=== PATIENT | female | born 1965 | race Caucasian/White ===

== ENCOUNTER 2020-04-21 16:26 | Inpatient (IN) | payer MEDICARE, MEDICAID, SELFPAY ==
[2020-04-21] VITALS (7 sets, daily range): BP systolic 131–171; BP diastolic 71–104; PULSE 76–91; RESP 12–32; TEMP 36.8–37.2; O2SAT 93–99; BMI 38.5; BMI 38.4
--- NOTE | 2020-04-21 | CT_ITS ---
EXAMINATION: CT CHEST WITHOUT CONTRAST CLINICAL INFORMATION: Shortness of breath COMPARISON: Chest radiograph performed earlier today TECHNIQUE: Multidetector volumetric CT imaging of the chest was done. Axial MIP volume rendering provided. Sagittal and coronal reformatted images were obtained. This CT examination was performed using dose optimization techniques as appropriate, variously including the following: *Automated exposure control *Adjustment of mA and/or kV according to patient size (this includes techniques or standardized protocols for targeted exams where dose is matched to indication/reason for exam; i.e. extremities or head) *Use of iterative reconstruction technique DLP: 579 mGy-cm FINDINGS: LUNGS: Mild interstitial prominence present throughout the lungs. There is bibasilar atelectasis/consolidation present. There is one lobular masslike area present in the left lower lobe measuring 2.4 x 2.3 x 1.7 cm MEDIASTINUM: There is mild cardiomegaly. No mediastinal or hilar lymphadenopathy is seen. Coronary artery calcifications are seen. PLEURA: Trace pleural effusions could be present.. No pleural mass or thickening. AXILLA: No lymphadenopathy. UPPER ABDOMEN: Patient status post cholecystectomy OSSEOUS STRUCTURES: Degenerative changes present in the left shoulder with mild degenerative changes present in the spine. CT/CT chest wo con IMPRESSION: 1. Interstitial prominence throughout both lungs consistent with edema. 2. Bibasilar atelectasis/consolidation 3. Lobular masslike area left lower lobe measuring 2.4 cm in size. This could be inflammatory but also could represent a solid abnormal mass lesion. Repeat CT scan after treatment is recommended to document clearing.
--- NOTE | 2020-04-21 17:31 | ECG_ITS ---
Test Reason : HYPERTENSION Blood Pressure : / mmHG Vent. Rate : 081 BPM Atrial Rate : 081 BPM P-R Int : 148 ms QRS Dur : 092 ms QT Int : 392 ms P-R-T Axes : 069 061 037 degrees QTc Int : 455 ms Normal sinus rhythm Normal ECG When compared with ECG of 09-JAN-2020 15:34, Premature atrial complexes are no longer Present Referred By: Mabel Rodriguez Electronically Signed By:STAN NEAL MD
--- NOTE | 2020-04-21 17:51 | XR_ITS ---
EXAMINATION: XR CHEST CLINICAL INFORMATION: Shortness of breath COMPARISON: Chest x-ray 01/09/2020 TECHNIQUE: Frontal portable view of the chest was obtained. 5:44 PM FINDINGS: There is prominence of the central pulmonary vessels with increased interstitial lung markings due to interstitial edema. No focal consolidation. No pleural effusion. Cardiac and mediastinal contours are unchanged. XR/XR chest 1V IMPRESSION: Mild to moderate interstitial edema.
[2020-04-21] MEDS: Albuterol Sulfate 90 MCG 8 GM INHALER 4 PUFF INHALE (18:00)
[2020-04-21] MEDS: methylPREDNISolone Sod Succ/PF 125 MG/2 ML VIAL IVPUSH (18:00)
--- NOTE | 2020-04-21 18:02 | ED.GENADULT ---
HPI - General Adult General Chief complaint: General Medical Stated complaint: SOB Time Seen by Provider: 04/21/20 17:20 Source: patient Mode of arrival: EMS History of Present Illness HPI narrative: 54 y.o. F with PMH of COPD not on home O2, HTN presenting to the ED with SOB. Pt. states she has been feeling SOB x 1 month. She has been using her inhalers which have not been helping. She went to her doctor today and reported her oxygen was low. 64% on RA. She was given a duoneb by EMS which helped minimally. She endorses a cough at times is productive. She has associated CP but is very vague. She currently feels tired. States she has not been sleeping much. She also endorses leg swelling. She denies hx of heart failure. She denies hx of DVT/PE. She denies fevers, vomiting, diarrhea. Onset (ago): month(s) (one month ago ) Related Data Home Medications Medication Instructions Recorded Confirmed amitriptyline 1 tab PO BEDTIME 04/21/20 04/21/20 amlodipine 1 tab PO DAILY 04/21/20 04/21/20 aspirin 1 tab PO DAILY 04/21/20 04/21/20 atenolol 1 tab PO DAILY 04/21/20 04/21/20 clonazepam 1 tab PO BID 04/21/20 04/21/20 diphenhydramine HCl [Banophen] 1 - 2 tab PO BEDTIME PRN 04/21/20 04/21/20 divalproex PO 04/21/20 duloxetine 1 cap PO DAILY 04/21/20 04/21/20 fenofibrate nanocrystallized 1 tab PO DAILY 04/21/20 04/21/20 fenofibrate nanocrystallized 1 tab PO DAILY 04/21/20 04/21/20 omeprazole 20 mg PO 04/21/20 oxycodone-acetaminophen 1 tab PO 5XD PRN 04/21/20 04/21/20 umeclidinium [Incruse Ellipta] INHALATION 04/21/20 Allergies Allergy/AdvReac Type Severity Reaction Status Date / Time Penicillins Allergy Mild RASH Verified 04/21/20 17:00 venlafaxine [From Effexor] Allergy Mild RASH Verified 04/21/20 17:00 cyclobenzaprine Allergy Unknown UNKNOWN Verified 04/21/20 17:00 [Cyclobenzaprine] fentanyl [FENTANYL] Allergy Unknown HALLUCINATI Verified 04/21/20 17:00 ONS topiramate [From Topamax] Allergy Unknown UNKNOWN Verified 04/21/20 17:00 Review of Systems Constitutional: Constitutional: Denies fever(s) and Denies weakness Eyes: Eyes: Reports no additional eye complaints ENT: Denies nasal congestion Cardiovascular: Cardiovascular: Reports chest pain and Reports dyspnea Respiratory: Respiratory: Reports cough and Reports dyspnea Gastrointestinal: Gastrointestinal: Denies diarrhea and Denies vomiting Musculoskeletal: Musculoskeletal: Denies myalgias Neurologic: Denies weakness Hematologic/Lymphatic: Comments: no bleeding tendancy PMFSH Past Medical History Medical History Back pain with history of spinal surgery Bipolar 1 disorder CAD (coronary artery disease) Chronic back pain COPD (chronic obstructive pulmonary disease) Depression Fibromyalgia High cholesterol HTN (hypertension) PTSD (post-traumatic stress disorder) Renal failure Smoker Surgical History H/O: hysterectomy Social History Social History Alcohol intake: former Smoking Status: Current every day smoker Smoked in Last 30 Days: Yes Use of substances other than those prescribed or required for medical reasons: No Advance Directives: No Advance Directives Information Provided: Yes Physical Exam Vital Signs: Vital Signs: Last Vital Signs Temp 98.9 F 04/21/20 16:39 Pulse 81 04/21/20 20:00 Resp 20 04/21/20 20:35 BP 170/83 H 04/21/20 16:39 Pulse Ox 95 04/21/20 20:00 Body Mass Index 38.5 Const: Other: somnolent, arousable to verbal stimuli General: cooperative Orientation/consciousness: patient oriented x3 HENMT: Head: Yes normal to inspection Eyes: Pupils: Equal, round and reactive pupils present Neck: Neck: Yes supple Chest: Chest palpation & inspection: normal inspection of the chest Resp: Other: diminished BS throughout Cardio: Rhythm: regular rhythm GI: Other: obese Palpation (GI): Soft to palpation Skin: Other: warm Rashes: no rashes Neuro: General: patient oriented x3 Cranial nerves: Yes Equal, round and reactive pupils present Extrem: Other: +1 pitting edema bilaterally General: Yes full ROM Psych: Attitude: cooperative Course Course Course Narrative: 54 y.o. F presenting to the ED with concerns for hypoxia, complaining of SOB x1 month, not on home O2, endorses vague CP VS significant for hypoxia per EMS, BP stable, appears ill WIll plan for basic labs. Will check signs of ischemia. Will evaluate for anemia, electrolyte imbalance. ACS on the differential given her CP will check troponin and EKG. CXR will be obtained to assess for PNA, pleural effusion. WIll check d dimer given her hypoxia and peripheral edema. WIll check venous US to r/o DVT. WIll check BNP for heart failure and she has +1 pitting edema. Abdomen is soft, nontender, low concern for intrabaomdinal process. Aortic dissection less likely as she has no ripping/tearing CP into the back. Will swab for COVID and influenza. COPD exacerbation on the differential given her hx will give steroids and albuterol inhaler (per policy as she is a COVID rule out cannot provide Duoneb). case discussed with attending who also evaluated the pt. Reevaluation(s) Reevaluation #1: ABS results show elevated Co2 level, low PH and O2 will initiate Bipap. D dimer is indeterminate, discussed with attending Caitie who states CTA not indicated. troponin negative. CXR read as pulmonary edema however given increased haziness and cough will obtain blood cultures and lactate, will initiate IV doxycyline. NO recent admission to suggest HCAP. Reevaluation #2: RN advised pt. is anxious with Bipap, will give low dose of IV ativan. Reevaluation #3: Pt. will be admitted to the ICU for her COPD exacerbation, hypercarbic respiratory failure, and pneumonia. Spoke with international marketing coordinator at 20:51. PA from ICU at bedside 21:28 requested we give IV dose of lasix 20 mg. will order. Venous US negative for DVT. Medical Decision Making Lab Data Result diagrams: 04/21/20 18:03 04/21/20 18:03 Labs: Lab Results 04/21/20 04/21/20 04/21/20 Range/Units 18:03 18:03 18:03 WBC 11.9 H (4.8-10.8) X10*3/uL RBC 4.29 (4.20-5.50) X10*6/uL Hgb 11.7 L (12.0-16.0) g/dl Hct 40.7 (37-47) % MCV 94.9 (80-98) fL MCH 27.3 (27.0-33.0) pg MCHC 28.7 L (31.0-35.0) g/dl RDW 15.2 (11.0-16.0) % Plt Count 362 (160-400) X10*3/uL MPV 9.1 L (9.4-12.3) fL Immature Gran % (Auto) 2.0 H (0.0-0.4) % Neut % (Auto) 64.7 (45-73) % Lymph % (Auto) 23.4 (20-40) % Glasscock % (Auto) 9.0 (2-11) % Eos % (Auto) 0.4 (0-4) % Baso % (Auto) 0.5 (0-2) % Lymph # (Auto) 2.8 (1.2-4.9) X10*3/uL Glasscock # (Auto) 1.1 (0.1-1.2) X10*3/uL Eos # (Auto) 0.1 (0.0-0.4) X10*3/uL Baso # (Auto) 0.1 (0.0-0.2) X10*3/uL Abs Immat Gran (auto) 0.24 H (0.00-0.03) X10*3/uL Absolute Neuts (auto) 7.7 (2.0-8.3) X10*3/uL Absolute Nucleated RBC 0.040 H (0.0-0.012) X10*3/uL Nucleated RBC % (auto) 0.3 H (0.0-0.2) /100WBC D-Dimer 262 NG/ML ABG pH (7.35-7.45) ABG pCO2 (32-45) mmhg ABG pO2 (83-108) mmhg ABG HCO3 (22-26) mmol/l ABG O2 Saturation % ABG Base Excess VBG pH (7.32-7.43) Oxygen Given Sodium 142 (135-145) mmol/L Potassium 3.9 (3.3-5.1) mmol/l Chloride 102 (96-108) mmol/L Carbon Dioxide 34 H (22-29) mmol/L Anion Gap 10 L (12-20) BUN 18 H (9-16) mg/dL Creatinine 0.93 (0.5-1.4) mg/dL Estim Creat Clear Calc 78.5 Estimated GFR > 60 Random Glucose 100 (60-115) mg/dL Lactic Acid (0.5-2.0) mmol/L Calcium 8.2 L (8.4-10.2) mg/dL Troponin I High Sens (<3.5-17.0) ng/L B-Natriuretic Peptide (<100) pg/mL Coronavirus (PCR) (Negative) Influenza Type A (PCR) (Negative) Influenza Type B (PCR) (Negative) RSV RNA Qual (PCR) (Negative) 04/21/20 04/21/20 04/21/20 Range/Units 18:03 18:03 18:30 WBC (4.8-10.8) X10*3/uL RBC (4.20-5.50) X10*6/uL Hgb (12.0-16.0) g/dl Hct (37-47) % MCV (80-98) fL MCH (27.0-33.0) pg MCHC (31.0-35.0) g/dl RDW (11.0-16.0) % Plt Count (160-400) X10*3/uL MPV (9.4-12.3) fL Immature Gran % (Auto) (0.0-0.4) % Neut % (Auto) (45-73) % Lymph % (Auto) (20-40) % Glasscock % (Auto) (2-11) % Eos % (Auto) (0-4) % Baso % (Auto) (0-2) % Lymph # (Auto) (1.2-4.9) X10*3/uL Glasscock # (Auto) (0.1-1.2) X10*3/uL Eos # (Auto) (0.0-0.4) X10*3/uL Baso # (Auto) (0.0-0.2) X10*3/uL Abs Immat Gran (auto) (0.00-0.03) X10*3/uL Absolute Neuts (auto) (2.0-8.3) X10*3/uL Absolute Nucleated RBC (0.0-0.012) X10*3/uL Nucleated RBC % (auto) (0.0-0.2) /100WBC D-Dimer NG/ML ABG pH (7.35-7.45) ABG pCO2 (32-45) mmhg ABG pO2 (83-108) mmhg ABG HCO3 (22-26) mmol/l ABG O2 Saturation % ABG Base Excess VBG pH (7.32-7.43) Oxygen Given Sodium (135-145) mmol/L Potassium (3.3-5.1) mmol/l Chloride (96-108) mmol/L Carbon Dioxide (22-29) mmol/L Anion Gap (12-20) BUN (9-16) mg/dL Creatinine (0.5-1.4) mg/dL Estim Creat Clear Calc Estimated GFR Random Glucose (60-115) mg/dL Lactic Acid 0.8 (0.5-2.0) mmol/L Calcium (8.4-10.2) mg/dL Troponin I High Sens 14.1 (<3.5-17.0) ng/L B-Natriuretic Peptide 575 H (<100) pg/mL Coronavirus (PCR) NEGATIVE (Negative) Influenza Type A (PCR) NEGATIVE (Negative) Influenza Type B (PCR) NEGATIVE (Negative) RSV RNA Qual (PCR) NEGATIVE (Negative) 04/21/20 04/21/20 Range/Units 18:30 19:35 WBC (4.8-10.8) X10*3/uL RBC (4.20-5.50) X10*6/uL Hgb (12.0-16.0) g/dl Hct (37-47) % MCV (80-98) fL MCH (27.0-33.0) pg MCHC (31.0-35.0) g/dl RDW (11.0-16.0) % Plt Count (160-400) X10*3/uL MPV (9.4-12.3) fL Immature Gran % (Auto) (0.0-0.4) % Neut % (Auto) (45-73) % Lymph % (Auto) (20-40) % Glasscock % (Auto) (2-11) % Eos % (Auto) (0-4) % Baso % (Auto) (0-2) % Lymph # (Auto) (1.2-4.9) X10*3/uL [place]cock # (Auto) (0.1-1.2) X10*3/uL Eos # (Auto) (0.0-0.4) X10*3/uL Baso # (Auto) (0.0-0.2) X10*3/uL Abs Immat Gran (auto) (0.00-0.03) X10*3/uL Absolute Neuts (auto) (2.0-8.3) X10*3/uL Absolute Nucleated RBC (0.0-0.012) X10*3/uL Nucleated RBC % (auto) (0.0-0.2) /100WBC D-Dimer NG/ML ABG pH 7.13 L* (7.35-7.45) ABG pCO2 105 H* (32-45) mmhg ABG pO2 80 L (83-108) mmhg ABG HCO3 34 H (22-26) mmol/l ABG O2 Saturation 93.2 % ABG Base Excess 2.0 VBG pH 7.14 L* (7.32-7.43) Oxygen Given 2 L Sodium (135-145) mmol/L Potassium (3.3-5.1) mmol/l Chloride (96-108) mmol/L Carbon Dioxide (22-29) mmol/L Anion Gap (12-20) BUN (9-16) mg/dL Creatinine (0.5-1.4) mg/dL Estim Creat Clear Calc Estimated GFR Random Glucose (60-115) mg/dL Lactic Acid (0.5-2.0) mmol/L Calcium (8.4-10.2) mg/dL Troponin I High Sens (<3.5-17.0) ng/L B-Natriuretic Peptide (<100) pg/mL Coronavirus (PCR) (Negative) Influenza Type A (PCR) (Negative) Influenza Type B (PCR) (Negative) RSV RNA Qual (PCR) (Negative) ECG Data Attestation: I personally reviewed and interpreted this ECG as follows: Interpretation: Normal sinus rhythm rate 81 no ischemia normal QTC 455 no STEMI Discharge Plan Discharge Clinical Impression: Acute respiratory failure with hypoxia and hypercarbia, COPD exacerbation Pneumonia Qualifiers: Pneumonia type: due to unspecified organism Laterality: bilateral Lung location: unspecified part of lung Qualified Code(s): J18.9 - Pneumonia, unspecified organism Patient Disposition: Admitted As Inpatient
[2020-04-21 18:09] LABS: MANUAL DIFF FLAG NO
[2020-04-21 18:11] LABS: Basophils Absolute Auto 0.1 X10*3/uL (0.0-0.2); Basophils Percent Auto 0.5 % (0-2); Eosinophils Absolute Auto 0.1 X10*3/uL (0.0-0.4); Eosinophils Percent Auto 0.4 % (0-4); Hematocrit 40.7 % (37-47); Hemoglobin 11.7 g/dl (12.0-16.0); Imm Gran Abs Auto 0.24 X10*3/uL (0.00-0.03); Lymphocytes Absolute Auto 2.8 X10*3/uL (1.2-4.9); Lymphocytes Percent Auto 23.4 % (20-40); Mean Corpuscular HGB Conc 28.7 g/dl (31.0-35.0); Mean Corpuscular Hemoglobin 27.3 pg (27.0-33.0); Mean Corpuscular Volume 94.9 fL (80-98); Mean Platelet Volume 9.1 fL (9.4-12.3); Monocytes Absolute Auto 1.1 X10*3/uL (0.1-1.2); NRBC Pct Auto 0.3 /100WBC (0.0-0.2); Neutrophils Absolute Auto 7.7 X10*3/uL (2.0-8.3); Neutrophils Percent Auto 64.7 % (45-73); Platelet Count 362 X10*3/uL (160-400); Red Blood Count 4.29 X10*6/uL (4.20-5.50); Red Cell Distribution Width 15.2 % (11.0-16.0); White Blood Count 11.9 X10*3/uL (4.8-10.8)
--- NOTE | 2020-04-21 18:11 | US_ITS ---
EXAMINATION: US VENOUS ULTRASOUND WITH DOPPLER LOWER EXTREMITY, BILATERAL CLINICAL INFORMATION: Bilateral lower extremity edema and swelling COMPARISON: 01/09/2020 TECHNIQUE: Ultrasound of the deep veins is performed from the hip to the calf with compression sonography and color and pulse Doppler assessment. Spectral analysis with color-flow imaging is performed. FINDINGS: RIGHT: There is normal venous compression and respiratory variation and augmented flow. The visualized common femoral vein, superficial femoral vein, profunda femoral vein, popliteal vein, and the trifurcation region shows no evidence of deep venous thrombosis. There is no significant popliteal fossa cyst. LEFT: There is normal venous compression and respiratory variation and augmented flow. The visualized common femoral vein, superficial femoral vein, profunda femoral vein, popliteal vein, and the trifurcation region shows no evidence of deep venous thrombosis. There is no significant popliteal fossa cyst. If the patient's symptoms persist, followup ultrasound in 5 days 7 days might be of value to exclude proximal propagation from a non-visualized calf vein. US/US venous duplex LE BI IMPRESSION: No DVT demonstrated in the bilateral lower extremities.
[2020-04-21 18:29] LABS: D Dimer 262 NG/ML
[2020-04-21 18:39] LABS: Anion Gap 10 (12-20); Blood Urea Nitrogen 18 mg/dL (9-16); Calcium 8.2 mg/dL (8.4-10.2); Carbon Dioxide 34 mmol/L (22-29); Chloride 102 mmol/L (96-108); Creatinine Clr Calc Pharmacy 78.5; Estimated Glomerular Filt Rate > 60; Glucose Random 100 mg/dL (60-115); Potassium 3.9 mmol/l (3.3-5.1); Sodium 142 mmol/L (135-145)
[2020-04-21 18:45] LABS: B Type Natriuretic Peptide 575 pg/mL (<100); Troponin-I High Sensitivity 14.1 ng/L (<3.5-17.0)
[2020-04-21] MEDS: Doxycycline Hyclate 100 MG in 0.9 % Sodium Chloride 250 ML 166.67 MG IV (18:45)
--- NOTE | 2020-04-21 18:45 | PC.NURSE ---
patient a&ox3, cardiac nurse practitioner nsr 70s, vss, labs drawn, covid swab done, ekg performed, cxr completed, pt medicated per order will continue to monitor.
--- NOTE | 2020-04-21 19:00 | PC.NURSE ---
titrated patient from 4L down to 2L, pt O2 sat at 94%
[2020-04-21 19:04] LABS: Influenza A PCR NEGATIVE (Negative); Influenza B PCR NEGATIVE (Negative); Resp Syncy Virus RNA Qual PCR NEGATIVE (Negative); SARS COV2 PCR INHOUSE NEGATIVE (Negative)
[2020-04-21 19:07] LABS: Lactic Acid 0.8 mmol/L (0.5-2.0)
[2020-04-21 19:08] LABS: pH VBG 7.14 (7.32-7.43)
[2020-04-21 20:15] LABS: Pt Ventilation O2% 2 L
[2020-04-21 20:16] LABS: HCO3 ABG 34 mmol/l (22-26); PO2 ABG 80 mmhg (83-108)
[2020-04-21 20:17] LABS: Oxygen Saturation ABG 93.2 %
[2020-04-21 20:19] LABS: Blood Gas Serial # 5414
[2020-04-21 20:21] LABS: ABG PCO2 105 mmhg (32-45); pH ABG 7.13 (7.35-7.45)
--- NOTE | 2020-04-21 20:39 | PC.NURSE ---
CONTACT MADE TO MCKAYLA, TIFFANIE AND SPOUSE. [phone]. WILL UPDATE ENTIRE FAMILY.
--- NOTE | 2020-04-21 21:08 | PC.NURSE ---
patient tolerating bipap. now reporting anxiety. mlp aware. plan to medicate withy ativan.
[2020-04-21] MEDS: LORazepam 2 MG/ML VIAL 0.5 MG IVPUSH (21:23)
[2020-04-21] MEDS: Furosemide 20 MG/2 ML VIAL IVPUSH (21:44)
--- NOTE | 2020-04-21 21:55 | P.HPCC_ITS ---
History of Present Illness Date of Service: 04/21/20 Chief Complaint: short of breath Patient is a 54-year-old female with a past medical history of COPD, not on home oxygen, HTN, coronary artery disease and Bipolar 1 c/o 1 month of SOB. According to the emergency department, she stated she used inhalers with no relief. They state she went to her PCP today and was told her go to on room air was 64%, she was BIBA and given a duoneb [employer]. labs revealed slightly elevated WBC at 11.9, ABG 7.13/105/80/34/93.2 base excess of 2.0 on 2L O2. serum carbon dioxide 34, BNP 575, COVID, FLU and RSV were all negative. CXR showed interstitial edema, venous US negative. Patient was placed on BiPAP shortly before my arrival to do a bedside exam. At my bedside exam, the patient was extremely fatigued, was arousable and able to answer some questions. she endorses shortness of breath, dry cough, lethargy, mild chest pain, nausea. she denies fever, chills, abdominal pain or diarrhea and is unsure if she has had a COVID + contact. I asked ED to give one dose of lasix. I ordered a chest CT and ordered levaquin. Patient will be brought to the ICU and continue BiPAP. Review of Systems Review of Systems: Constitutional: No Fever, No Chills ENT/Mouth: No sore throat, No Rhinorrhea, No Swallowing Difficulty Eyes: No Eye Pain, No Swelling, No Redness Cardiovascular: + Chest Pain, positive SOB, No Orthopnea, positive Edema Respiratory: positive dyspnea, + Cough, No Sputum, No Wheezing Gastrointestinal:+ Nausea, No Vomiting, No Diarrhea, No abdominal Pain, No Hematochezia, No Melena Genitourinary: No Dysuria, No Urinary Frequency, No Hematuria Musculoskeletal: No joint pain, No Myalgias Skin: No Skin Lesions, No rash Neuro: No Weakness, No Numbness, No Dizziness, No Headache Psych: No Anxiety/Panic, No Depression Yes all other systems are reviewed and are negative Neurologic: Reports confusion Psychiatric: Psychiatric: Reports confusion PMF Past Medical History Medical History Acute on chronic diastolic CHF (congestive heart failure) Back pain with history of spinal surgery Bipolar 1 disorder Bipolar disorder CAD (coronary artery disease) Chronic back pain COPD (chronic obstructive pulmonary disease) Depression Fibromyalgia High cholesterol HTN (hypertension) PTSD (post-traumatic stress disorder) Renal failure Smoker Surgical History Surgical History H/O: hysterectomy Social History Social History Alcohol intake: former Smoking Status: Current every day smoker Smoked in Last 30 Days: Yes Use of substances other than those prescribed or required for medical reasons: No Currently Displaying Signs/Symptoms of Drug Intoxication Withdrawal: No Advance Directives: No Advance Directives Information Provided: Yes Do you have thoughts of harming others: None Do you have a plan to hurt others: No Plan Meds Allergies Allergy/AdvReac Type Severity Reaction Status Date / Time Penicillins Allergy Mild RASH Verified 04/21/20 17:00 venlafaxine [From Effexor] Allergy Mild RASH Verified 04/21/20 17:00 cyclobenzaprine Allergy Unknown UNKNOWN Verified 04/21/20 17:00 [Cyclobenzaprine] fentanyl [FENTANYL] Allergy Unknown HALLUCINATI Verified 04/21/20 17:00 ONS topiramate [From Topamax] Allergy Unknown UNKNOWN Verified 04/21/20 17:00 Home Medications Medication Instructions Recorded Confirmed Type amitriptyline 1 tab PO BEDTIME 04/21/20 04/21/20 History amlodipine 1 tab PO DAILY 04/21/20 04/21/20 History aspirin 1 tab PO DAILY 04/21/20 04/21/20 History atenolol 1 tab PO DAILY 04/21/20 04/21/20 History clonazepam 1 tab PO BID 04/21/20 04/21/20 History diphenhydramine HCl [Banophen] 1 - 2 tab PO BEDTIME PRN 04/21/20 04/21/20 History divalproex 500 mg PO DAILY 04/21/20 04/22/20 History duloxetine 1 cap PO DAILY 04/21/20 04/21/20 History fenofibrate nanocrystallized 1 tab PO DAILY 04/21/20 04/21/20 History omeprazole 20 mg PO DAILY 04/21/20 04/22/20 History oxycodone-acetaminophen 1 tab PO 5XD PRN 04/21/20 04/21/20 History umeclidinium [Incruse Ellipta] 1 inh INHALATION DAILY 04/21/20 04/22/20 History divalproex 1,000 mg PO BEDTIME 04/22/20 04/22/20 History Physical Exam Vital Signs: Vital Signs: Last Vital Signs Temp 98.9 F 04/21/20 16:39 Pulse 81 04/21/20 20:00 Resp 20 04/21/20 20:35 BP 170/83 H 04/21/20 16:39 Pulse Ox 95 04/21/20 20:00 Body Mass Index 38.5 Const: General: confusion and ill appearing Nutritional Appearance: obese morbidly obese Orientation/consciousness: confusion HENMT: Head: Yes normal to inspection Eyes: General: appearance normal, both eyes and all related structures Pupils: Equal, round and reactive pupils present EOM: EOMs intact bilaterally Neck: Neck: Yes normal visual inspection, Yes full ROM and Yes supple Chest: Chest palpation & inspection: normal inspection of the chest Resp: Other: on BiPap Effort & Inspection: no audible wheezes, no grunting, not labored, no nasal flaring, not tachypneic, no tripod positioning and no use of accessory muscles Auscultation: diminished lung sounds Cardio: Rate: regular rate Rhythm: regular rhythm GI: Inspection: Yes obesity Palpation (GI): Soft to palpation and nontender Skin: General skin exam: no rashes or lesions noted Neuro: General: confusion Cranial nerves: Yes Equal, round and reactive pupils present Extrem: General: Yes edema (1+ pitting bilateral LE) Results Labs CBC and Chem 7: 04/22/20 05:39 04/22/20 05:39 Labs: Laboratory Results - last 24 hr 04/21/20 04/21/20 04/21/20 18:03 18:03 18:03 MCV 94.9 MCH 27.3 MCHC 28.7 L RDW 15.2 Plt Count 362 MPV 9.1 L Immature Gran % (Auto) 2.0 H Neut % (Auto) 64.7 Lymph % (Auto) 23.4 [place] % (Auto) 9.0 Eos % (Auto) 0.4 Baso % (Auto) 0.5 Lymph # (Auto) 2.8 [place] # (Auto) 1.1 Eos # (Auto) 0.1 Baso # (Auto) 0.1 Abs Immat Gran (auto) 0.24 H Absolute Neuts (auto) 7.7 Absolute Nucleated RBC 0.040 H Nucleated RBC % (auto) 0.3 H D-Dimer 262 ABG pH ABG pCO2 ABG pO2 ABG HCO3 ABG O2 Saturation ABG Base Excess VBG pH Oxygen Given Anion Gap 10 L Estim Creat Clear Calc 78.5 Estimated GFR > 60 Random Glucose 100 Lactic Acid Calcium 8.2 L Troponin I High Sens B-Natriuretic Peptide Coronavirus (PCR) Influenza Type A (PCR) Influenza Type B (PCR) RSV RNA Qual (PCR) 04/21/20 04/21/20 04/21/20 18:03 18:03 18:30 MCV MCH MCHC RDW Plt Count MPV Immature Gran % (Auto) Neut % (Auto) Lymph % (Auto) [place] % (Auto) Eos % (Auto) Baso % (Auto) Lymph # (Auto) [place] # (Auto) Eos # (Auto) Baso # (Auto) Abs Immat Gran (auto) Absolute Neuts (auto) Absolute Nucleated RBC Nucleated RBC % (auto) D-Dimer ABG pH ABG pCO2 ABG pO2 ABG HCO3 ABG O2 Saturation ABG Base Excess VBG pH Oxygen Given Anion Gap Estim Creat Clear Calc Estimated GFR Random Glucose Lactic Acid 0.8 Calcium Troponin I High Sens 14.1 B-Natriuretic Peptide 575 H Coronavirus (PCR) NEGATIVE Influenza Type A (PCR) NEGATIVE Influenza Type B (PCR) NEGATIVE RSV RNA Qual (PCR) NEGATIVE 04/21/20 04/21/20 18:30 19:35 MCV MCH MCHC RDW Plt Count MPV Immature Gran % (Auto) Neut % (Auto) Lymph % (Auto) [place] % (Auto) Eos % (Auto) Baso % (Auto) Lymph # (Auto) [place] # (Auto) Eos # (Auto) Baso # (Auto) Abs Immat Gran (auto) Absolute Neuts (auto) Absolute Nucleated RBC Nucleated RBC % (auto) D-Dimer ABG pH 7.13 L* ABG pCO2 105 H* ABG pO2 80 L ABG HCO3 34 H ABG O2 Saturation 93.2 ABG Base Excess 2.0 VBG pH 7.14 L* Oxygen Given 2 L Anion Gap Estim Creat Clear Calc Estimated GFR Random Glucose Lactic Acid Calcium Troponin I High Sens B-Natriuretic Peptide Coronavirus (PCR) Influenza Type A (PCR) Influenza Type B (PCR) RSV RNA Qual (PCR) Imaging Radiologist's Impressions: Impressions Chest X-Ray 04/21/20 17:51 IMPRESSION: Mild to moderate interstitial edema. Venous Duplex 04/21/20 18:11 IMPRESSION: No DVT demonstrated in the bilateral lower extremities. [address] [address] [address] Scan Report Signed Patient: Claire SethMR#: [id number] : 1965Acct:[id number] Age/Sex: 54 / FADM Date: 04/21/20 Loc: .DGI451-[address]: Jeison Montez MD Ordering Physician: DEB HILL Date of Service: 04/21/20 Procedure(s): CT chest wo con Accession Number(s): [id number] cc: DEB HILL~ EXAMINATION: CT CHEST WITHOUT CONTRAST CLINICAL INFORMATION: Shortness of breath COMPARISON: Chest radiograph performed earlier today TECHNIQUE: Multidetector volumetric CT imaging of the chest was done. Axial MIP volume rendering provided. Sagittal and coronal reformatted images were obtained. This CT examination was performed using dose optimization techniques as appropriate, variously including the following: *Automated exposure control *Adjustment of mA and/or kV according to patient size (this includes techniques or standardized protocols for targeted exams where dose is matched to indication/reason for exam; i.e. extremities or head) *Use of iterative reconstruction technique DLP: 579 mGy-cm FINDINGS: LUNGS: Mild interstitial prominence present throughout the lungs. There is bibasilar atelectasis/consolidation present. There is one lobular masslike area present in the left lower lobe measuring 2.4 x 2.3 x 1.7 cm MEDIASTINUM: There is mild cardiomegaly. No mediastinal or hilar lymphadenopathy is seen. Coronary artery calcifications are seen. PLEURA: Trace pleural effusions could be present.. No pleural mass or thickening. AXILLA: No lymphadenopathy. UPPER ABDOMEN: Patient status post cholecystectomy OSSEOUS STRUCTURES: Degenerative changes present in the left shoulder with mild degenerative changes present in the spine. CT/CT chest wo con IMPRESSION: 1. Interstitial prominence throughout both lungs consistent with edema. 2. Bibasilar atelectasis/consolidation 3. Lobular masslike area left lower lobe measuring 2.4 cm in size. This could be inflammatory but also could represent a solid abnormal mass lesion. Repeat CT scan after treatment is recommended to document clearing. Assessment and Plan (1) Acute respiratory failure with hypoxia and hypercarbia: Status: Acute continue bipap, monitor vbg and mental status (2) Pneumonia: Qualifiers: Laterality: bilateral Lung location: unspecified part of lung Pneumonia type: due to unspecified organism Qualified Code(s): J18.9 - Pneumonia, unspecified organism Status: Acute Pt rec'd one dose of Doxy in ED. Will give 750 mg levaquin IV Q24H (3) COPD exacerbation: Status: Acute Continue steroids and nebulizer tx's (4) Acute on chronic diastolic CHF (congestive heart failure): Status: Acute 20mg lasix x2 overnight with good UO (5) Bipolar disorder: Status: Acute continue home meds
[2020-04-21] MEDS: 0.9 % Sodium Chloride Flush 3 ML SYRINGE IVFLUSH (23:59)
[2020-04-22] VITALS (37 sets, daily range): BP systolic 113–174; BP diastolic 54–99; PULSE 74–100; RESP 12–26; TEMP 36–37.7; O2SAT 90–96; BMI 38.6
[2020-04-22] MEDS: levoFLOXacin/D5W 750 MG/150 ML PIGGYBACK 100 MG IV ×2 (00:06→20:31)
[2020-04-22] MEDS: methylPREDNISolone Sod Succ/PF 125 MG/2 ML VIAL 80 MG IVPUSH ×4 (00:06→22:31)
[2020-04-22] MEDS: Heparin Sodium,Porcine 5,000 UNIT/ML VIAL 5000 UNIT SUBCUT ×3 (00:07→20:30)
[2020-04-22] MEDS: Albuterol/Iprat 2.5/0.5MG 3 ML AMPUL.NEB INHALE ×6 (00:18→19:42)
[2020-04-22 00:51] LABS: Base Excess VBG 5.7 mmol/L; HCO3 VBG 33 mmol/L; Oxygen Saturation VBG 84.4 %; PCO2 VBG 63 mmhg; PO2 VBG 47 mmhg; pH VBG 7.34 (7.32-7.43)
[2020-04-22] MEDS: Furosemide 20 MG/2 ML VIAL IVPUSH (01:40)
[2020-04-22 05:57] LABS: Basophils Percent Auto 0.1 % (0-2); Hemoglobin 11.4 g/dl (12.0-16.0); Imm Gran Abs Auto 0.19 X10*3/uL (0.00-0.03); Imm Gran Pct Auto 2.2 % (0.0-0.4); Lymphocytes Absolute Auto 0.6 X10*3/uL (1.2-4.9); Lymphocytes Percent Auto 6.8 % (20-40); MANUAL DIFF FLAG SCAN; Mean Corpuscular Hemoglobin 27.2 pg (27.0-33.0); Mean Corpuscular Volume 90.7 fL (80-98); Mean Platelet Volume 9.1 fL (9.4-12.3); Monocytes Absolute Auto 0.2 X10*3/uL (0.1-1.2); Monocytes Percent Auto 2.3 % (2-11); NRBC Pct Auto 0.3 /100WBC (0.0-0.2); Neutrophils Absolute Auto 7.8 X10*3/uL (2.0-8.3); Neutrophils Percent Auto 88.6 % (45-73); Platelet Count 356 X10*3/uL (160-400); Red Blood Count 4.19 X10*6/uL (4.20-5.50); Red Cell Distribution Width 14.4 % (11.0-16.0); SCAN SMEAR FLAG 1; White Blood Count 8.8 X10*3/uL (4.8-10.8)
[2020-04-22 06:02] LABS: SLIDE REVIEW VERIFIED
[2020-04-22 06:28] LABS: Base Excess VBG 8.3 mmol/L; HCO3 VBG 35 mmol/L; Oxygen Saturation VBG 84.1 %; PCO2 VBG 61 mmhg; PO2 VBG 48 mmhg; pH VBG 7.38 (7.32-7.43)
--- NOTE | 2020-04-22 06:33 | PC.NURSE ---
CARE ASSUMED 23;15...BIPAP 15/5 & FIO2 40%..RR 16-20...Ve 11-13 L/M...SAO2 93-96%...INITIALLY AROUSABLE BUT DROWSY/VAGUE..MORE ALERT..COHERENT OVERNIGHT.GRANDA DRAINING YELLOW URINE...NSR...SBP 160'S-170'S...ICU DEMENTIA PROGRAM DIRECTOR PRESENT...REPEAT LASIX 20MG IV GIVEN WITH BRISK DIURESIS...AM LABS DRAWN...O2 TRANSITIONED TO 5 L/M VIA CANNULA...SAO2 91-94%...NO DISTRESS...BP REMAINS 160'S-170'S...DEMENTIA PROGRAM DIRECTOR AWARE...HOME BP/PSYCH MEDS REORDERED BY DEMENTIA PROGRAM DIRECTOR...RESTFUL..DENIES/OFFERS NO COMPLAINTS
[2020-04-22 06:34] LABS: Anion Gap 13 (12-20); Blood Urea Nitrogen 19 mg/dL (9-16); Calcium 8.2 mg/dL (8.4-10.2); Carbon Dioxide 35 mmol/L (22-29); Chloride 95 mmol/L (96-108); Creatinine Clr Calc Pharmacy 72.8; Estimated Glomerular Filt Rate 57; Glucose Random 128 mg/dL (60-115); Magnesium 1.3 mg/dL (1.6-2.6); Phosphorus 4.5 mg/dL (2.7-4.5); Potassium 3.5 mmol/l (3.3-5.1); Sodium 139 mmol/L (135-145)
[2020-04-22 06:35] LABS: B Type Natriuretic Peptide 266 pg/mL (<100)
[2020-04-22] MEDS: carvediloL 12.5 MG TABLET PO ×2 (08:20→20:30)
[2020-04-22] MEDS: amLODIPine Besylate 10 MG TABLET PO (08:21)
[2020-04-22] MEDS: Divalproex Sodium ER 500 MG TAB.ER.24H PO ×3 (08:21→20:29)
[2020-04-22] MEDS: Magnesium Sulfate/H2O 2 GM/50 ML PIGGYBACK IV (08:22)
[2020-04-22] MEDS: Pregabalin 25 MG CAPSULE PO ×2 (09:12→20:30)
[2020-04-22] MEDS: oxyCODONE HCl Immed Release 5 MG TABLET 10 MG PO ×3 (09:13→22:36)
[2020-04-22] MEDS: 0.9 % Sodium Chloride Flush 3 ML SYRINGE IVFLUSH ×3 (09:14→22:33)
[2020-04-22 10:36] LABS: Pt Ventilation O2% 45%
[2020-04-22 10:40] LABS: PO2 ABG 70 mmhg (83-108)
[2020-04-22 10:41] LABS: Base Excess ABG 9.9; Blood Gas Serial # 5414; HCO3 ABG 40 mmol/l (22-26); Oxygen Saturation ABG 92.9 %
[2020-04-22 10:42] LABS: ABG PCO2 83 mmhg (32-45)
--- NOTE | 2020-04-22 11:06 | P.PNCC_ITS ---
Subjective Subjective Date of Service: 04/22/20 Interval History: 54-year-old female longstanding smoking related COPD underlying hypertension as well as bipolar disorder admitted with increasing shortness of breath and oxygen saturation in the mid 60s and she is not on home oxygen therapy presented with acute hypercarbic and hypoxemic respiratory failure with pCO2 over 100 and pH of 7.13 and she did very well overnight on bronchodilator therapy and BiPAP support with pressures of 15/5 this morning more awake and alert still an element of confusion but pCO2 sitting at about the 60 with a compensated pH of 7.38 she also received IV Lasix and she diuresed sit significantly and BNP did drop down from over 500 to over 300 at this point and we tried her on on high-flow nasal cannula at 50 liters/minute and her pCO2 is up to 80 with a falling pH and a little bit more somnolent so we have to replace the BiPAP on a p.r.n. basis Physical Exam Vital Signs: Vital Signs: Last Vital Signs Temp 99.1 F 04/22/20 11:00 Pulse 78 04/22/20 11:00 Resp 13 04/22/20 11:00 BP 127/60 04/22/20 11:00 Pulse Ox 92 04/22/20 11:00 Body Mass Index 38.6 Const: Other: she was awake and at least oriented times to but with some confuse skin color normal no livedo no acrocyanosis no wounds neurologic nonfocal chest with diminished bilateral breath sounds and no adventitious sounds cardiac exam with normal S1 normal S2 no gallops no murmurs no neck vein distension and good bilateral carotid upstrokes abdomen benign no bruits no tenderness no organomegaly EKG normal sinus rhythm and within normal limits Objective Data Labs CBC & Chem 7: 04/22/20 05:39 04/22/20 05:39 Labs: Laboratory Results - last 24 hr 04/21/20 04/21/20 04/21/20 18:03 18:03 18:03 WBC 11.9 H RBC 4.29 Hgb 11.7 L Hct 40.7 MCV 94.9 MCH 27.3 MCHC 28.7 L RDW 15.2 Plt Count 362 MPV 9.1 L Immature Gran % (Auto) 2.0 H Neut % (Auto) 64.7 Lymph % (Auto) 23.4 [place] % (Auto) 9.0 Eos % (Auto) 0.4 Baso % (Auto) 0.5 Lymph # (Auto) 2.8 [place] # (Auto) 1.1 Eos # (Auto) 0.1 Baso # (Auto) 0.1 Abs Immat Gran (auto) 0.24 H Absolute Neuts (auto) 7.7 Absolute Nucleated RBC 0.040 H Nucleated RBC % (auto) 0.3 H Smear Tech's Comments D-Dimer 262 ABG pH ABG pCO2 ABG pO2 ABG HCO3 ABG O2 Saturation ABG Base Excess VBG pH VBG pCO2 VBG pO2 VBG HCO3 VBG O2 Saturation VBG Base Excess Oxygen Given Sodium 142 Potassium 3.9 Chloride 102 Carbon Dioxide 34 H Anion Gap 10 L BUN 18 H Creatinine 0.93 Estim Creat Clear Calc 78.5 Estimated GFR > 60 Random Glucose 100 Lactic Acid Calcium 8.2 L Phosphorus Magnesium Troponin I High Sens B-Natriuretic Peptide Coronavirus (PCR) Influenza Type A (PCR) Influenza Type B (PCR) RSV RNA Qual (PCR) 04/21/20 04/21/20 04/21/20 18:03 18:03 18:30 WBC RBC Hgb Hct MCV MCH MCHC RDW Plt Count MPV Immature Gran % (Auto) Neut % (Auto) Lymph % (Auto) [place] % (Auto) Eos % (Auto) Baso % (Auto) Lymph # (Auto) [place] # (Auto) Eos # (Auto) Baso # (Auto) Abs Immat Gran (auto) Absolute Neuts (auto) Absolute Nucleated RBC Nucleated RBC % (auto) Smear Tech's Comments D-Dimer ABG pH ABG pCO2 ABG pO2 ABG HCO3 ABG O2 Saturation ABG Base Excess VBG pH VBG pCO2 VBG pO2 VBG HCO3 VBG O2 Saturation VBG Base Excess Oxygen Given Sodium Potassium Chloride Carbon Dioxide Anion Gap BUN Creatinine Estim Creat Clear Calc Estimated GFR Random Glucose Lactic Acid 0.8 Calcium Phosphorus Magnesium Troponin I High Sens 14.1 B-Natriuretic Peptide 575 H Coronavirus (PCR) NEGATIVE Influenza Type A (PCR) NEGATIVE Influenza Type B (PCR) NEGATIVE RSV RNA Qual (PCR) NEGATIVE 04/21/20 04/21/20 04/22/20 18:30 19:35 00:21 WBC RBC Hgb Hct MCV MCH MCHC RDW Plt Count MPV Immature Gran % (Auto) Neut % (Auto) Lymph % (Auto) [place] % (Auto) Eos % (Auto) Baso % (Auto) Lymph # (Auto) [place] # (Auto) Eos # (Auto) Baso # (Auto) Abs Immat Gran (auto) Absolute Neuts (auto) Absolute Nucleated RBC Nucleated RBC % (auto) Smear Tech's Comments D-Dimer ABG pH 7.13 L* ABG pCO2 105 H* ABG pO2 80 L ABG HCO3 34 H ABG O2 Saturation 93.2 ABG Base Excess 2.0 VBG pH 7.14 L* 7.34 VBG pCO2 63 VBG pO2 47 VBG HCO3 33 VBG O2 Saturation 84.4 VBG Base Excess 5.7 Oxygen Given 2 L Sodium Potassium Chloride Carbon Dioxide Anion Gap BUN Creatinine Estim Creat Clear Calc Estimated GFR Random Glucose Lactic Acid Calcium Phosphorus Magnesium Troponin I High Sens B-Natriuretic Peptide Coronavirus (PCR) Influenza Type A (PCR) Influenza Type B (PCR) RSV RNA Qual (PCR) 04/22/20 04/22/20 04/22/20 05:39 05:39 05:39 WBC 8.8 RBC 4.19 L Hgb 11.4 L Hct 38.0 MCV 90.7 MCH 27.2 MCHC 30.0 L RDW 14.4 Plt Count 356 MPV 9.1 L Immature Gran % (Auto) 2.2 H Neut % (Auto) 88.6 H Lymph % (Auto) 6.8 L [place] % (Auto) 2.3 Eos % (Auto) 0.0 Baso % (Auto) 0.1 Lymph # (Auto) 0.6 L [place] # (Auto) 0.2 Eos # (Auto) 0.0 Baso # (Auto) 0.0 Abs Immat Gran (auto) 0.19 H Absolute Neuts (auto) 7.8 Absolute Nucleated RBC 0.030 H Nucleated RBC % (auto) 0.3 H Smear Tech's Comments VERIFIED D-Dimer ABG pH ABG pCO2 ABG pO2 ABG HCO3 ABG O2 Saturation ABG Base Excess VBG pH VBG pCO2 VBG pO2 VBG HCO3 VBG O2 Saturation VBG Base Excess Oxygen Given Sodium 139 Potassium 3.5 Chloride 95 L Carbon Dioxide 35 H Anion Gap 13 BUN 19 H Creatinine 1.00 Estim Creat Clear Calc 72.8 Estimated GFR 57 Random Glucose 128 H Lactic Acid Calcium 8.2 L Phosphorus 4.5 Magnesium 1.3 L* Troponin I High Sens B-Natriuretic Peptide 266 H Coronavirus (PCR) Influenza Type A (PCR) Influenza Type B (PCR) RSV RNA Qual (PCR) 04/22/20 04/22/20 05:39 10:32 WBC RBC Hgb Hct MCV MCH MCHC RDW Plt Count MPV Immature Gran % (Auto) Neut % (Auto) Lymph % (Auto) [place] % (Auto) Eos % (Auto) Baso % (Auto) Lymph # (Auto) [place] # (Auto) Eos # (Auto) Baso # (Auto) Abs Immat Gran (auto) Absolute Neuts (auto) Absolute Nucleated RBC Nucleated RBC % (auto) Smear Tech's Comments D-Dimer ABG pH 7.30 L ABG pCO2 83 H* ABG pO2 70 L ABG HCO3 40 H ABG O2 Saturation 92.9 ABG Base Excess 9.9 VBG pH 7.38 VBG pCO2 61 VBG pO2 48 VBG HCO3 35 VBG O2 Saturation 84.1 VBG Base Excess 8.3 Oxygen Given 45% Sodium Potassium Chloride Carbon Dioxide Anion Gap BUN Creatinine Estim Creat Clear Calc Estimated GFR Random Glucose Lactic Acid Calcium Phosphorus Magnesium Troponin I High Sens B-Natriuretic Peptide Coronavirus (PCR) Influenza Type A (PCR) Influenza Type B (PCR) RSV RNA Qual (PCR) Progress Note: A&P Assessment and plan (1) Acute respiratory failure with hypoxia and hypercarbia: Status: Acute (2) Pneumonia: Status: Acute (3) COPD exacerbation: Status: Acute (4) Acute on chronic diastolic CHF (congestive heart failure): Status: Acute (5) Bipolar disorder: Status: Acute Assessment and Plan: currently for elevated pCO2 of 80 we are replacing the BiPAP at the same previous settings and will reassess the patient shortly probably withhold her lunch at this point and will do bedside echo to assess her diastolic function and if we can image the IVC we can assess her volume status Time Spent With Patient Time: Total time spent is greater than 50% in coordination of care (as documented) at patient's floor/unit and/or counseling patient: Total time spent with greater than 50% in coordination of care (as documented) at patient's floor/unit and/or counseling patient:: 45
[2020-04-22 12:00] LABS: Glucose Urine UA NEG (NEG); Leukocyte Esterase Urine NEG (NEG); Nitrite Urine NEG (NEG); PH 6.5 (5.0-8.0); Specific Gravity - Urine >= 1.030 (1.005-1.025); Urine Blood 1+ (NEG); Urine Ketones NEG (NEG); Urine Protein 2+ MG/DL (NEG-TRACE)
[2020-04-22 12:01] LABS: Appearance Urine HAZY; Color Urine YELLOW
[2020-04-22 12:20] LABS: Mucus Urine 1+ /LPF; WBC Urine 0-2 /HPF (0-4)
[2020-04-22] MEDS: clonazePAM 0.5 MG TABLET PO ×2 (12:53→20:30)
[2020-04-22] MEDS: DULoxetine HCl 60 MG CAPSULE.DR PO (12:54)
--- NOTE | 2020-04-22 15:23 | PC.NURSE ---
report recieved from Jamil, pt on 5l O2, pt ate breakfast, plan for high flow, ABG drawn at 1000 and pt placed back on bipap at 15/5 and 40%, tolerating well, resting in bed, will cont to monitor
[2020-04-22] MEDS: Amitriptyline HCl 25 MG TABLET PO (20:30)
[2020-04-23] VITALS (36 sets, daily range): BP systolic 96–154; BP diastolic 56–90; PULSE 64–95; RESP 12–24; TEMP 36.5–37.6; O2SAT 89–97; BMI 37.4
[2020-04-23] MEDS: Albuterol/Iprat 2.5/0.5MG 3 ML AMPUL.NEB INHALE ×4 (00:05→12:22)
[2020-04-23 05:46] LABS: MANUAL DIFF FLAG NO
[2020-04-23 05:50] LABS: Basophils Percent Auto 0.1 % (0-2); Hematocrit 36.8 % (37-47); Hemoglobin 10.9 g/dl (12.0-16.0); Imm Gran Abs Auto 0.13 X10*3/uL (0.00-0.03); Imm Gran Pct Auto 0.9 % (0.0-0.4); Lymphocytes Absolute Auto 0.9 X10*3/uL (1.2-4.9); Lymphocytes Percent Auto 6.4 % (20-40); Mean Corpuscular HGB Conc 29.6 g/dl (31.0-35.0); Mean Corpuscular Hemoglobin 26.8 pg (27.0-33.0); Mean Corpuscular Volume 90.6 fL (80-98); Mean Platelet Volume 9.3 fL (9.4-12.3); Monocytes Absolute Auto 0.4 X10*3/uL (0.1-1.2); Monocytes Percent Auto 2.8 % (2-11); NRBC Pct Auto 0.1 /100WBC (0.0-0.2); Neutrophils Absolute Auto 12.3 X10*3/uL (2.0-8.3); Neutrophils Percent Auto 89.8 % (45-73); Platelet Count 359 X10*3/uL (160-400); Red Blood Count 4.06 X10*6/uL (4.20-5.50); Red Cell Distribution Width 14.3 % (11.0-16.0); White Blood Count 13.7 X10*3/uL (4.8-10.8)
[2020-04-23 06:00] LABS: PCO2 VBG 63 mmhg; pH VBG 7.38 (7.32-7.43)
[2020-04-23 06:01] LABS: Base Excess VBG 8.8 mmol/L; HCO3 VBG 36 mmol/L; Oxygen Saturation VBG 83.1 %; PO2 VBG 48 mmhg
[2020-04-23 06:22] LABS: Anion Gap 13 (12-20); Blood Urea Nitrogen 29 mg/dL (9-16); Carbon Dioxide 35 mmol/L (22-29); Chloride 95 mmol/L (96-108); Estimated Glomerular Filt Rate 57; Glucose Random 128 mg/dL (60-115); Magnesium 2.2 mg/dL (1.6-2.6); Phosphorus 3.6 mg/dL (2.7-4.5); Potassium 4.1 mmol/l (3.3-5.1); Sodium 139 mmol/L (135-145)
[2020-04-23 06:24] LABS: B Type Natriuretic Peptide 115 pg/mL (<100)
[2020-04-23] MEDS: methylPREDNISolone Sod Succ/PF 125 MG/2 ML VIAL 80 MG IVPUSH ×3 (07:14→21:46)
[2020-04-23] MEDS: clonazePAM 0.5 MG TABLET PO ×2 (09:52→20:02)
[2020-04-23] MEDS: Heparin Sodium,Porcine 5,000 UNIT/ML VIAL 5000 UNIT SUBCUT ×2 (09:52→20:01)
[2020-04-23] MEDS: carvediloL 12.5 MG TABLET PO ×2 (09:52→20:02)
[2020-04-23] MEDS: Pregabalin 25 MG CAPSULE PO ×2 (09:53→20:02)
[2020-04-23] MEDS: amLODIPine Besylate 10 MG TABLET PO (09:53)
[2020-04-23] MEDS: Divalproex Sodium ER 500 MG TAB.ER.24H PO ×3 (09:53→20:02)
[2020-04-23] MEDS: DULoxetine HCl 60 MG CAPSULE.DR PO (09:53)
[2020-04-23] MEDS: oxyCODONE HCl Immed Release 5 MG TABLET 10 MG PO ×3 (09:54→20:02)
[2020-04-23] MEDS: 0.9 % Sodium Chloride Flush 3 ML SYRINGE IVFLUSH ×2 (09:55→16:49)
[2020-04-23 10:14] LABS: PO2 ABG 76 mmhg (83-108); pH ABG 7.32 (7.35-7.45)
[2020-04-23 10:15] LABS: ABG PCO2 73 mmhg (32-45); Base Excess ABG 7.9; Blood Gas Serial # 5396; HCO3 ABG 37 mmol/l (22-26); Oxygen Saturation ABG 93.9 %
[2020-04-23 14:01] LABS: Pt Ventilation O2% 50%
[2020-04-23 14:06] LABS: Base Excess ABG 7.3; HCO3 ABG 36 mmol/l (22-26); Oxygen Saturation ABG 94.9 %; PO2 ABG 85 mmhg (83-108)
[2020-04-23 14:10] LABS: ABG PCO2 75 mmhg (32-45)
--- NOTE | 2020-04-23 14:23 | PM.CCPN ---
Subjective Subjective Date of Service: 04/23/20 Interval History: clearly improving with less respiratory effort and today she is maintaining pCO2 maximally at 75 after over 8 hours of high-flow nasal cannula whereas yesterday she almost immediately titi from 63-83 on the same settings Physical Exam Vital Signs: Vital Signs: Last Vital Signs Temp 99.5 F 04/23/20 14:00 Pulse 83 04/23/20 14:00 Resp 24 H 04/23/20 14:00 BP 121/61 04/23/20 14:00 Pulse Ox 94 04/23/20 14:00 Body Mass Index 37.4 Const: Other: awake alert and oriented neurologically symmetric skin intact with no rash no livedo and no acrocyanosis diminished bilateral breath sounds with minimal wheeze cardiac exam with normal S1 and normal S2 and no gallops or murmurs good bilateral carotid upstrokes and no neck vein distension abdomen benign no bruits no tenderness no organomegaly Objective Data Labs CBC & Chem 7: 04/23/20 05:28 04/23/20 05:28 Labs: Laboratory Results - last 24 hr 04/23/20 04/23/20 04/23/20 05:28 05:28 05:28 WBC 13.7 H RBC 4.06 L Hgb 10.9 L Hct 36.8 L MCV 90.6 MCH 26.8 L MCHC 29.6 L RDW 14.3 Plt Count 359 MPV 9.3 L Immature Gran % (Auto) 0.9 H Neut % (Auto) 89.8 H Lymph % (Auto) 6.4 L [place] % (Auto) 2.8 Eos % (Auto) 0.0 Baso % (Auto) 0.1 Lymph # (Auto) 0.9 L [place] # (Auto) 0.4 Eos # (Auto) 0.0 Baso # (Auto) 0.0 Abs Immat Gran (auto) 0.13 H Absolute Neuts (auto) 12.3 H Absolute Nucleated RBC 0.020 H Nucleated RBC % (auto) 0.1 ABG pH ABG pCO2 ABG pO2 ABG HCO3 ABG O2 Saturation ABG Base Excess VBG pH VBG pCO2 VBG pO2 VBG HCO3 VBG O2 Saturation VBG Base Excess Oxygen Given Sodium 139 Potassium 4.1 Chloride 95 L Carbon Dioxide 35 H Anion Gap 13 BUN 29 H D Creatinine 1.00 Estim Creat Clear Calc 73.0 Estimated GFR 57 Random Glucose 128 H Calcium 8.0 L Phosphorus 3.6 Magnesium 2.2 B-Natriuretic Peptide 115 H 04/23/20 04/23/20 04/23/20 05:28 09:50 13:45 WBC RBC Hgb Hct MCV MCH MCHC RDW Plt Count MPV Immature Gran % (Auto) Neut % (Auto) Lymph % (Auto) [place] % (Auto) Eos % (Auto) Baso % (Auto) Lymph # (Auto) [place] # (Auto) Eos # (Auto) Baso # (Auto) Abs Immat Gran (auto) Absolute Neuts (auto) Absolute Nucleated RBC Nucleated RBC % (auto) ABG pH 7.32 L 7.30 L ABG pCO2 73 H* 75 H* ABG pO2 76 L 85 ABG HCO3 37 H 36 H ABG O2 Saturation 93.9 94.9 ABG Base Excess 7.9 7.3 VBG pH 7.38 VBG pCO2 63 VBG pO2 48 VBG HCO3 36 VBG O2 Saturation 83.1 VBG Base Excess 8.8 Oxygen Given 55% 50% Sodium Potassium Chloride Carbon Dioxide Anion Gap BUN Creatinine Estim Creat Clear Calc Estimated GFR Random Glucose Calcium Phosphorus Magnesium B-Natriuretic Peptide Microbiology Microbiology Results: Microbiology 04/21/20 18:45 Blood - Venous Blood Culture - Preliminary No growth after 24 hours. 04/21/20 18:36 Blood - Venous Blood Culture - Preliminary No growth after 24 hours. Progress Note: A&P Assessment and plan (1) Acute respiratory failure with hypoxia and hypercarbia: Status: Acute (2) Pneumonia: Status: Acute (3) COPD exacerbation: Status: Acute (4) Bipolar disorder: Status: Acute (5) Acute on chronic diastolic CHF (congestive heart failure): Status: Acute Assessment and Plan: will switch to a long-acting bronchodilator combined with inhaled steroid and will again use nocturnal BiPAP which brings her pCO2 down to resting home levels of 63 with perfectly compensated pH Time Spent With Patient Time: Total time spent is greater than 50% in coordination of care (as documented) at patient's floor/unit and/or counseling patient: Total time spent with greater than 50% in coordination of care (as documented) at patient's floor/unit and/or counseling patient:: 30
--- NOTE | 2020-04-23 16:00 | CA_ITS ---
Transthoracic Echocardiogram Patient (Last, First, Middle): Claire Seth, Gender: Female Date of : 1965 Age: 54 Procedure Date: 04/23/2020 Procedure Type: Transthoracic Echocardiogram Location: ICU Height: 162.56 cm Weight: 98.88 kg BSA: 2.03 m2 Heart Rate: bpm BP: 120 / 69 mmHg Product Design Specialist: FILEMON Referring MD: Jeison Montez MD Symptoms: CHF, ASSESS LV function Study Quality: Technically Difficult ECG Rhythm: Sinus Conclusions: - The left ventricular systolic function is normal. The visually estimated ejection fraction is between 65-70%. - No obvious valvular pathology seen on this study. Findings Procedure Information Contrast agent, definity, is being given per protocol without apparent complications. Left Ventricle Normal left ventricular cavity size. There is mildly increased left ventricular wall thickness. The left ventricular systolic function is normal. The visually estimated ejection fraction is between 65-70%. There is no evidence of regional wall motion abnormalities. Diastolic function is normal for age. Right Ventricle The right ventricle was not well visualized. Based on TAPSE, normal function. Atria The left atrium is normal in size. The right atrium is normal in size. Aortic Valve The aortic valve was not well visualized. There is no aortic valve stenosis. There is no aortic valve regurgitation. Mitral Valve The mitral valve appears normal. There is trace mitral valve regurgitation. There is no mitral valve stenosis. Pulmonic Valve The pulmonic valve was not well visualized. Tricuspid Valve The tricuspid valve was not well visualized. There is trace tricuspid valve regurgitation. The right ventricular systolic pressure is normal. The pulmonary artery systolic pressure may be underestimated. Great Vessels The asc aorta is normal in size. Venous The inferior vena cava was not well visualized. Pericardium/Pleural There is no evidence of pericardial effusion. Prior Study Comparison No significant change compared to prior study dated: 03/23/2015. Recommendations, Care & Conclusions No obvious valvular pathology seen on this study. Measurements 2D Linear Measurements IVSd: 1.17 0.6-0.9/0.6-1.0 cm LVIDd: 5.07 3.9-5.3/4.2-5.9 cm LVIDd Index: 2.50 2.4-3.2/2.2-3.1 cm/m2 LVIDs: 3.48 2.0-3.6 cm LVPWd: 1.13 0.7-1.1 cm LA Diam: 4.20 2.7-3.8/3.0-4.0 cm LAIDs Index: 2.07 1.5-2.3 cm/m2 LV Mass: 280.79 67-162/88-224 g LV Mass Index: 138.32 43-95/49-115 g/m2 LVOT Diam: 2.00 3.0+(-)1.3 cm 2D Systolic Function EF 4C: 78.40 >55% EF 2C: 73.00 >55% EF BiP: 76.30 >55% Mitral Valve MV Pk E: 0.96 MV PK A: 0.91 MV Decel Time: 156.00 E/A: 1.10 E'Lateral: 9.19 E'Medial: 9.38 E/E' Med: 10.20 E/E' Lat: 10.40 PHT: 46.00 MVA PHT: 4.78 Decel [place]: 6.16 Aortic Valve AoV Pk Ede: 1.83 AoV Pk Grad: 13.00 LVOT LVOT Pk Ede: 1.06 LVOT Mn Ede: 0.65 LVOT VTI: 0.19 LVOT Pk Grad: 4.00 LVOT Mn Grad: 2.00 LVOT Diam: 2.00 LVOT Area: 3.14 Diastolic Function MV Pk E: 0.96 MV Pk A: 0.91 E/A: 1.10 E'Medial: 9.38 E/E' Med: 10.20 E' Laterial: 9.19 E/E' Lat: 10.40 Great Vessels Aorta Ao Asc: 3.60 2.1-3.4 cm Updated in Other Vendor System with Status of Final Mickey Wayne MD electronically signed on 04/23/2020 5:03:20 PM with status of Final
[2020-04-23] MEDS: levoFLOXacin/D5W 750 MG/150 ML PIGGYBACK 100 MG IV (20:02)
[2020-04-23] MEDS: Amitriptyline HCl 25 MG TABLET PO (20:02)
[2020-04-23] MEDS: Furosemide 20 MG/2 ML VIAL 10 MG IVPUSH (22:42)
[2020-04-24] VITALS (31 sets, daily range): BP systolic 113–175; BP diastolic 52–82; PULSE 60–87; RESP 10–21; TEMP 36.4–37.4; O2SAT 90–95; BMI 37.2
[2020-04-24] MEDS: 0.9 % Sodium Chloride Flush 3 ML SYRINGE IVFLUSH ×4 (01:50→23:57)
[2020-04-24 05:55] LABS: Basophils Percent Auto 0.1 % (0-2); Hematocrit 38.9 % (37-47); Hemoglobin 11.6 g/dl (12.0-16.0); Imm Gran Abs Auto 0.09 X10*3/uL (0.00-0.03); Imm Gran Pct Auto 0.6 % (0.0-0.4); Lymphocytes Percent Auto 6.3 % (20-40); MANUAL DIFF FLAG SCAN; Mean Corpuscular HGB Conc 29.8 g/dl (31.0-35.0); Mean Corpuscular Hemoglobin 27.3 pg (27.0-33.0); Mean Corpuscular Volume 91.5 fL (80-98); Mean Platelet Volume 9.4 fL (9.4-12.3); Monocytes Absolute Auto 0.4 X10*3/uL (0.1-1.2); Monocytes Percent Auto 2.4 % (2-11); NRBC Pct Auto 0.1 /100WBC (0.0-0.2); Neutrophils Absolute Auto 13.8 X10*3/uL (2.0-8.3); Neutrophils Percent Auto 90.6 % (45-73); Platelet Count 382 X10*3/uL (160-400); Red Blood Count 4.25 X10*6/uL (4.20-5.50); Red Cell Distribution Width 14.3 % (11.0-16.0); SCAN SMEAR FLAG 1; White Blood Count 15.2 X10*3/uL (4.8-10.8)
[2020-04-24 06:04] LABS: Base Excess VBG 11.2 mmol/L; HCO3 VBG 41 mmol/L; Oxygen Saturation VBG 74.6 %; PCO2 VBG 82 mmhg; PO2 VBG 42 mmhg; pH VBG 7.31 (7.32-7.43)
[2020-04-24 06:19] LABS: Anion Gap 12 (12-20); B Type Natriuretic Peptide 108 pg/mL (<100); Blood Urea Nitrogen 30 mg/dL (9-16); Calcium 8.2 mg/dL (8.4-10.2); Carbon Dioxide 38 mmol/L (22-29); Chloride 95 mmol/L (96-108); Creatinine Clr Calc Pharmacy 70.3; Estimated Glomerular Filt Rate 56; Glucose Random 114 mg/dL (60-115); Magnesium 2.2 mg/dL (1.6-2.6); Phosphorus 3.6 mg/dL (2.7-4.5); Potassium 4.2 mmol/l (3.3-5.1); Sodium 141 mmol/L (135-145)
[2020-04-24] MEDS: methylPREDNISolone Sod Succ/PF 125 MG/2 ML VIAL 80 MG IVPUSH ×3 (06:23→22:02)
[2020-04-24 06:42] LABS: SLIDE REVIEW VERIFIED
[2020-04-24] MEDS: clonazePAM 0.5 MG TABLET PO ×2 (08:10→20:30)
[2020-04-24] MEDS: DULoxetine HCl 60 MG CAPSULE.DR PO (08:10)
[2020-04-24] MEDS: Divalproex Sodium ER 500 MG TAB.ER.24H PO (08:10)
[2020-04-24] MEDS: carvediloL 12.5 MG TABLET PO ×2 (08:10→20:30)
[2020-04-24] MEDS: amLODIPine Besylate 10 MG TABLET PO (08:10)
[2020-04-24] MEDS: Pregabalin 25 MG CAPSULE PO (08:10)
[2020-04-24] MEDS: Heparin Sodium,Porcine 5,000 UNIT/ML VIAL 5000 UNIT SUBCUT ×2 (08:15→20:30)
[2020-04-24 10:33] LABS: Pt Ventilation O2% 40%
[2020-04-24 10:39] LABS: Base Excess ABG 12.1; Blood Gas Serial # 5396; HCO3 ABG 42 mmol/l (22-26); Oxygen Saturation ABG 92.2 %; PO2 ABG 69 mmhg (83-108); pH ABG 7.32 (7.35-7.45)
[2020-04-24 10:40] LABS: ABG PCO2 82 mmhg (32-45)
--- NOTE | 2020-04-24 10:53 | MHC.CM.PN ---
Attempted to meet with patient in regards to discharge planning. Patient is currently lethargic and receiving care from nursing and resp. Spoke with patient's spouse Allen via telephone at [phone]. Patient lives with Allen, uses a cane/wheeled walker and had no services prior to coming to the hospital. Patient was not on oxygen at home. PCP verified. Allen does not believe patient has a HCP. IMM explained and left bedside. Patient may benefit from physical therapy eval for home safety when medically stable. Continue to monitor for d/c needs.
[2020-04-24 11:36] LABS: Ammonia 41 umol/L (13-55)
[2020-04-24] MEDS: Fluticasone/Vilanterol 100/25 BLST.W.DEV 1 PUFF INHALE (12:12)
[2020-04-24] MEDS: oxyCODONE HCl Immed Release 5 MG TABLET 10 MG PO ×2 (13:28→22:04)
--- NOTE | 2020-04-24 16:28 | PM.CCPN ---
Subjective Subjective Date of Service: 04/24/20 Interval History: 54-year-old female with severe COPD presents with acute on chronic hypoxic / hypercarbic respiratory failure currently on Levaquin for respiratory infection induced exacerbation continues on steroids but I am reducing some of her medicines in including her divalproex because she was on extended release 3 times daily which is excessive and and checking an ammonia level as well but reducing her benzodiazepine so she is not taking that at a higher dose in conjunction with her chronic narcotic dependence even on BiPAP with good tidal volumes but unfortunately bradypneic, her pCO2 was elevated 82 and was unchanged even on nasal high-flow so the plan is to allow her to eat her [address] her back on BiPAP but this time with medication reduction and we might need to increase her Lyrica for her chronic pain and see if we can wean some of the narcotic as well Physical Exam Vital Signs: Vital Signs: Last Vital Signs Temp 99.1 F 04/24/20 16:00 Pulse 81 04/24/20 16:00 Resp 16 04/24/20 16:00 BP 127/61 04/24/20 16:00 Pulse Ox 91 L 04/24/20 16:00 Body Mass Index 37.2 Const: Other: somnolent but arousable oriented with nonfocal neurologic stable cardiovascular with normal sinus rhythm and no neck vein distension and good bilateral carotid upstrokes with normal S1 and normal S2 chest with reduced bilateral breath sounds and no adventitious sounds abdomen benign and nondistended with good bowel sounds and no organomegaly Objective Data Labs CBC & Chem 7: 04/24/20 05:28 04/24/20 05:28 Labs: Laboratory Results - last 24 hr 04/24/20 04/24/20 04/24/20 05:28 05:28 05:28 WBC 15.2 H RBC 4.25 Hgb 11.6 L Hct 38.9 MCV 91.5 MCH 27.3 MCHC 29.8 L RDW 14.3 Plt Count 382 MPV 9.4 Immature Gran % (Auto) 0.6 H Neut % (Auto) 90.6 H Lymph % (Auto) 6.3 L Cross % (Auto) 2.4 Eos % (Auto) 0.0 Baso % (Auto) 0.1 Lymph # (Auto) 1.0 L Cross # (Auto) 0.4 Eos # (Auto) 0.0 Baso # (Auto) 0.0 Abs Immat Gran (auto) 0.09 H Absolute Neuts (auto) 13.8 H Absolute Nucleated RBC 0.020 H Nucleated RBC % (auto) 0.1 Smear Tech's Comments VERIFIED ABG pH ABG pCO2 ABG pO2 ABG HCO3 ABG O2 Saturation ABG Base Excess VBG pH VBG pCO2 VBG pO2 VBG HCO3 VBG O2 Saturation VBG Base Excess Oxygen Given Sodium 141 Potassium 4.2 Chloride 95 L Carbon Dioxide 38 H Anion Gap 12 BUN 30 H Creatinine 1.02 Estim Creat Clear Calc 70.3 Estimated GFR 56 Random Glucose 114 Calcium 8.2 L Phosphorus 3.6 Magnesium 2.2 Ammonia B-Natriuretic Peptide 108 H 04/24/20 04/24/20 04/24/20 05:28 10:21 11:04 WBC RBC Hgb Hct MCV MCH MCHC RDW Plt Count MPV Immature Gran % (Auto) Neut % (Auto) Lymph % (Auto) Cross % (Auto) Eos % (Auto) Baso % (Auto) Lymph # (Auto) Cross # (Auto) Eos # (Auto) Baso # (Auto) Abs Immat Gran (auto) Absolute Neuts (auto) Absolute Nucleated RBC Nucleated RBC % (auto) Smear Tech's Comments ABG pH 7.32 L ABG pCO2 82 H* ABG pO2 69 L ABG HCO3 42 H ABG O2 Saturation 92.2 ABG Base Excess 12.1 VBG pH 7.31 L VBG pCO2 82 VBG pO2 42 VBG HCO3 41 VBG O2 Saturation 74.6 VBG Base Excess 11.2 Oxygen Given 40% Sodium Potassium Chloride Carbon Dioxide Anion Gap BUN Creatinine Estim Creat Clear Calc Estimated GFR Random Glucose Calcium Phosphorus Magnesium Ammonia 41 B-Natriuretic Peptide Microbiology Microbiology Results: Microbiology 04/21/20 18:45 Blood - Venous Blood Culture - Preliminary No growth after 48 hours. 04/21/20 18:36 Blood - Venous Blood Culture - Preliminary No growth after 48 hours. Progress Note: A&P Assessment and plan (1) Acute respiratory failure with hypoxia and hypercarbia: Status: Acute (2) Pneumonia: Status: Acute (3) COPD exacerbation: Status: Acute (4) Bipolar disorder: Status: Acute (5) Acute on chronic diastolic CHF (congestive heart failure): Status: Acute (6) Sleep disorder: Status: Acute Assessment and Plan: so I a.m. reducing her benzodiazepine and her divalproex and will repeat blood gases and evaluate mental status and possibly start reducing some of the narcotic and increasing Lyrica instead and may or may not at that point add Provigil continue nocturnal BiPAP support Time Spent With Patient Time: Total time spent is greater than 50% in coordination of care (as documented) at patient's floor/unit and/or counseling patient: Total time spent with greater than 50% in coordination of care (as documented) at patient's floor/unit and/or counseling patient:: 35
--- NOTE | 2020-04-24 19:36 | PC.NURSE ---
SHIFT UPDATE; PT ON BIPAP THIS AM- TRANSITIONED TO HI-JAZZ THIS AM- PT VERY SLEEPY THIS AM AND FALLING ASLEEP DURING BREAKFAST- ABGS DRAWN- REPORTED TO MD, DISCUSS NEED FOR DIAMOX; ORDERED THEN HELD DUE TO BP PER MD; LUNG SOUNDS DIM THROUGHOUT; SR ON MONITOR; VSS THROUGHOUT SHIFT; OOB TO CHAIR- PT MORE ALERT THROUGHOUT MID MORNING AND THROUGHOUT REST OF SHIFT-GRANDA IN PLACE FOR ACCURATE I&O; NEW IV PLACED IN LLA 22 G, 20 G IN RAC D/C'ED AND 20 G IN L WRIST D/C'ED FOR REDNESS; REPORT GIVEN TO JERARDO LESLIE AT [id number]
[2020-04-24] MEDS: Amitriptyline HCl 25 MG TABLET PO (20:30)
[2020-04-24] MEDS: Pregabalin 25 MG CAPSULE 50 MG PO (20:30)
[2020-04-24] MEDS: levoFLOXacin/D5W 750 MG/150 ML PIGGYBACK 100 MG IV (22:02)
[2020-04-25] VITALS (35 sets, daily range): BP systolic 95–164; BP diastolic 54–94; PULSE 64–93; RESP 11–24; TEMP 36.2–37.2; O2SAT 90–99; BMI 37.6
--- NOTE | 2020-04-25 | CT_ITS ---
EXAMINATION: CT ANGIOGRAM OF THE CHEST WITH AND WITHOUT CONTRAST (CT PULMONARY ANGIOGRAM FOR PE) CLINICAL INFORMATION: Reason for Exam worsening hypercarbia COMPARISON: Previous chest CT April 2017 and chest x-ray April 2017 TECHNIQUE: Prior to contrast administration, noncontrast localization images were obtained. Subsequently, multidetector volumetric imaging was performed from the thoracic inlet to below the diaphragms following the administration of 65 mL Omnipaque 350 intravenous contrast. No contrast reaction reported Sagittal, coronal, and MIP oblique sagittal reformatted images were obtained on the CT workstation, uploaded to PACS, and reviewed. This CT examination was performed using dose optimization techniques as appropriate, variously including the following: *Automated exposure control *Adjustment of mA and/or kV according to patient size (this includes techniques or standardized protocols for targeted exams where dose is matched to indication/reason for exam; i.e. extremities or head) *Use of iterative reconstruction technique Total exam dose-length product 513 mGy-cm FINDINGS: QUALITY OF STUDY/CONTRAST BOLUS: Satisfactory. PULMONARY ARTERIES: No central or segmental pulmonary emboli. THORACIC AORTA: No aneurysm or dissection. LUNG: There is a 2 cm left lower lobe pulmonary nodule that is unchanged. There is bilateral lower lobe atelectasis or small infiltrate that is unchanged. PLEURA: No pleural effusion or pneumothorax. MEDIASTINUM: The heart is upper slightly enlarged. Normal in size. No pericardial effusion. No hilar or mediastinal lymphadenopathy. No evidence of septal bowing or right heart strain. CHEST WALL/AXILLA: No axillary or internal mammary lymphadenopathy. OSSEOUS STRUCTURES: No acute or suspicious osseous abnormality. There are degenerative changes of the spine. UPPER ABDOMEN: The gallbladder has been removed. No reflux of contrast into the hepatic veins to suggest elevated right heart pressures. CT/CT angio chest PE protocol IMPRESSION: No evidence of pulmonary embolism. Stable 2 cm left lower lobe pulmonary nodule. Atelectasis or small infiltrates at the lung bases. Enlarged heart. VTE: negative
--- NOTE | 2020-04-25 05:30 | PC.NURSE ---
CARE ASSUMED 23:15...AWAKE..ALERT..ORIENTED X3...RESPIRATIONS EASY WITH HI-JAZZ O2 40% AT HS..SAO2 92-94%....PLACED ON NOCTURNAL BIPAP 10/5 AND 40% O2 AT 00:30...SLEPT X4 HOURS WITH BIPAP THEN AWAKE...REFUSED FURTHER BIPAP...RETURNED TO HI-JAZZ CANNULA...SAO2 88-89% WITH 40% O2..RT TITRATED TO 50% WITH SAO2 93-94%...GRANDA DRAINING LARGE AMOUNTS URINE OVERNIGHT...DENIES/OFFERS NO COMPLAINTS
[2020-04-25 05:44] LABS: Basophils Percent Auto 0.1 % (0-2); Hematocrit 39.4 % (37-47); Hemoglobin 11.7 g/dl (12.0-16.0); Imm Gran Abs Auto 0.06 X10*3/uL (0.00-0.03); Imm Gran Pct Auto 0.4 % (0.0-0.4); Lymphocytes Absolute Auto 0.8 X10*3/uL (1.2-4.9); Lymphocytes Percent Auto 5.6 % (20-40); MANUAL DIFF FLAG SCAN; Mean Corpuscular HGB Conc 29.7 g/dl (31.0-35.0); Mean Corpuscular Hemoglobin 26.8 pg (27.0-33.0); Mean Corpuscular Volume 90.2 fL (80-98); Mean Platelet Volume 9.3 fL (9.4-12.3); Monocytes Absolute Auto 0.4 X10*3/uL (0.1-1.2); Monocytes Percent Auto 2.9 % (2-11); NRBC Pct Auto 0.2 /100WBC (0.0-0.2); Neutrophils Absolute Auto 12.4 X10*3/uL (2.0-8.3); Platelet Count 336 X10*3/uL (160-400); Red Blood Count 4.37 X10*6/uL (4.20-5.50); Red Cell Distribution Width 14.1 % (11.0-16.0); SCAN SMEAR FLAG 1; White Blood Count 13.6 X10*3/uL (4.8-10.8)
[2020-04-25 05:48] LABS: SLIDE REVIEW VERIFIED
[2020-04-25 05:49] LABS: pH VBG 7.29 (7.32-7.43)
[2020-04-25] MEDS: methylPREDNISolone Sod Succ/PF 125 MG/2 ML VIAL 80 MG IVPUSH ×2 (05:49→13:25)
[2020-04-25 05:50] LABS: Base Excess VBG 13.2 mmol/L; HCO3 VBG 44 mmol/L; PCO2 VBG 93 mmhg; PO2 VBG 57 mmhg
[2020-04-25 06:14] LABS: Anion Gap 8 (12-20); Blood Urea Nitrogen 32 mg/dL (9-16); Calcium 8.4 mg/dL (8.4-10.2); Carbon Dioxide 41 mmol/L (22-29); Chloride 93 mmol/L (96-108); Creatinine Clr Calc Pharmacy 80.3; Estimated Glomerular Filt Rate > 60; Glucose Random 112 mg/dL (60-115); Magnesium 2.1 mg/dL (1.6-2.6); Phosphorus 3.7 mg/dL (2.7-4.5); Potassium 4.2 mmol/l (3.3-5.1); Sodium 138 mmol/L (135-145)
--- NOTE | 2020-04-25 06:25 | PC.NURSE ---
am vbg= pH 7.29 PCO2 93 ICU ASSEMBLY CLEANER PRESENT AND AWARE...RETURNED TO BIPAP PER PA
[2020-04-25] MEDS: Spironolactone 25 MG TABLET 12.5 MG PO (08:24)
[2020-04-25] MEDS: Pregabalin 25 MG CAPSULE 50 MG PO ×2 (08:26→21:02)
[2020-04-25] MEDS: DULoxetine HCl 60 MG CAPSULE.DR PO (08:26)
[2020-04-25] MEDS: amLODIPine Besylate 10 MG TABLET PO (08:27)
[2020-04-25] MEDS: Divalproex Sodium ER 500 MG TAB.ER.24H PO (08:27)
[2020-04-25] MEDS: acetaZOLAMIDE 250 MG TABLET PO (08:28)
[2020-04-25] MEDS: carvediloL 12.5 MG TABLET PO ×2 (08:28→21:02)
[2020-04-25] MEDS: oxyCODONE HCl Immed Release 5 MG TABLET 10 MG PO ×3 (08:32→23:26)
[2020-04-25] MEDS: Heparin Sodium,Porcine 5,000 UNIT/ML VIAL 5000 UNIT SUBCUT ×2 (08:33→21:11)
[2020-04-25] MEDS: 0.9 % Sodium Chloride Flush 3 ML SYRINGE IVFLUSH ×2 (08:52→15:48)
[2020-04-25] MEDS: Fluticasone/Vilanterol 100/25 BLST.W.DEV 1 PUFF INHALE (08:53)
[2020-04-25] MEDS: vancomycin HCL 1,000 MG in 0.9 % Sodium Chloride 250 ML 270 MG IV (08:53)
--- NOTE | 2020-04-25 09:37 | PC.NURSE ---
Addendum entered by Stephanie Fitzpatrick RN 04/25/20 10:34: PT BACK FROM CT, EATING BREAKFAST. Original Note: OFF UNIT TO CT
[2020-04-25] MEDS: iohexoL 350 MG/ML 100 ML INFUS..BTL IV (10:21)
--- NOTE | 2020-04-25 13:56 | P.PNCC_ITS ---
Subjective Subjective Date of Service: 04/25/20 Interval History: a 54-year-old moderately obese with underlying bipolar disorder and presents with acute on chronic hypercarbic and hypoxic respiratory failure on a combination of medicine including divalproex extended release which was gi yudith excessively 3 times a day that was reduced and ammonia level was not elevated but also on nearly 50 mg daily of oxycodone for chronic back pain and Klonopin for anxiety twice daily noted to have restless leg issues which are chronic according to her probably indicating sleep disorder and I would venture a guess that there is significant and untreated sleep apnea she continues to have marked elevation of pCO2 despite the weaning off of the excess dose of divalproex and of the benzodiazepine and then a small reduction of her opiate and I therefore will probably consider adding Provigil and possibly starting tomorrow or later this evening further weaning of the dose of oxycodone I repeated the CT scan of her chest and is no infiltrate and no indication of COPD or fluid issues she always seems to be relatively bradypneic but with excessive tidal volumes of over 1200 cc at least while she is on BiPAP Physical Exam Vital Signs: Vital Signs: Last Vital Signs Temp 97.2 F 04/25/20 13:00 Pulse 86 04/25/20 13:00 Resp 24 H 04/25/20 13:00 BP 95/54 L 04/25/20 13:00 Pulse Ox 99 04/25/20 13:00 Body Mass Index 37.6 Const: Other: although somewhat somnolent she awakens easily oriented x3 with good cognitive function nonfocal neurologic cardiac exam with normal S1 and normal S2 no gallops and no murmurs and no neck vein distension chest without accessory muscle or diaphragmatic effort and no adventitious sounds abdomen is benign no distension no tenderness skin is intact with no wounds no decubiti I and no acrocyanosis Objective Data Labs CBC & Chem 7: 04/25/20 05:33 04/25/20 05:33 Labs: Laboratory Results - last 24 hr 04/25/20 04/25/20 04/25/20 05:33 05:33 05:33 WBC 13.6 H RBC 4.37 Hgb 11.7 L Hct 39.4 MCV 90.2 MCH 26.8 L MCHC 29.7 L RDW 14.1 Plt Count 336 MPV 9.3 L Immature Gran % (Auto) 0.4 Neut % (Auto) 91.0 H Lymph % (Auto) 5.6 L [place] % (Auto) 2.9 Eos % (Auto) 0.0 Baso % (Auto) 0.1 Lymph # (Auto) 0.8 L [place] # (Auto) 0.4 Eos # (Auto) 0.0 Baso # (Auto) 0.0 Abs Immat Gran (auto) 0.06 H Absolute Neuts (auto) 12.4 H Absolute Nucleated RBC 0.030 H Nucleated RBC % (auto) 0.2 Smear Tech's Comments VERIFIED VBG pH 7.29 L VBG pCO2 93 VBG pO2 57 VBG HCO3 44 VBG O2 Saturation Not Reportable VBG Base Excess 13.2 Sodium 138 Potassium 4.2 Chloride 93 L Carbon Dioxide 41 H* Anion Gap 8 L BUN 32 H Creatinine 0.89 Estim Creat Clear Calc 80.3 Estimated GFR > 60 Random Glucose 112 Calcium 8.4 Phosphorus 3.7 Magnesium 2.1 Microbiology Microbiology Results: Microbiology 04/21/20 18:45 Blood - Venous Blood Culture - Preliminary No growth after 48 hours. 04/21/20 18:36 Blood - Venous Blood Culture - Preliminary No growth after 48 hours. Progress Note: A&P Assessment and plan (1) Sleep disorder: Status: Acute (2) Acute respiratory failure with hypoxia and hypercarbia: Status: Acute (3) Pneumonia: Status: Acute (4) COPD exacerbation: Status: Acute (5) Bipolar disorder: Status: Acute (6) Acute on chronic diastolic CHF (congestive heart failure): Status: Acute (7) Restless legs syndrome (RLS): Status: Acute Assessment and Plan: so I am going to do bedside spirometry to check her Ena function and will try to now further reduce overall dose of her oxycodone Time Spent With Patient Time: Total time spent is greater than 50% in coordination of care (as documented) at patient's floor/unit and/or counseling patient: Total time spent with greater than 50% in coordination of care (as documented) at patient's floor/unit and/or counseling patient:: 35
--- NOTE | 2020-04-25 14:40 | W.PM.IDCN ---
History of Present Illness Data of Consult Service Date: 04/25/20 Requesting physician: Jeison Montez Primary Care Provider: MD CHRISSY Penny Reason for consult: possible infection She presents to hospital with shortness of breath worsening over last month She has ARF and hypoxia with hypercarbia on admission She was started on Levaquin on 04/21 and today started in addition on Merem and Vancomycin She has CT chest haziness at base, no lobar pneumonia Blood cultures negative and sputum unrevealing so far. She is on 40% HFNC She has no PE on CT ABG yesterday 7.///42 Review of Systems Constitutional: Constitutional: Denies weakness Neurologic: Reports confusion and Denies weakness Psychiatric: Psychiatric: Reports confusion PMFSH Past Medical History Medical History Acute on chronic diastolic CHF (congestive heart failure) Back pain with history of spinal surgery Bipolar 1 disorder Bipolar disorder CAD (coronary artery disease) Chronic back pain COPD (chronic obstructive pulmonary disease) Depression Fibromyalgia High cholesterol HTN (hypertension) PTSD (post-traumatic stress disorder) Renal failure Restless legs syndrome (RLS) Sleep disorder Smoker Surgical History Surgical History H/O: hysterectomy Social History Social History Alcohol intake: former Smoking Status: Current every day smoker Smoked in Last 30 Days: Yes Use of substances other than those prescribed or required for medical reasons: No Currently Displaying Signs/Symptoms of Drug Intoxication Withdrawal: No Advance Directives: No Advance Directives Information Provided: Yes Do you have thoughts of harming others: None Do you have a plan to hurt others: No Plan service: No Current occupational status: disabled Meds Allergies Allergy/AdvReac Type Severity Reaction Status Date / Time Penicillins Allergy Mild RASH Verified 04/21/20 17:00 venlafaxine [From Effexor] Allergy Mild RASH Verified 04/21/20 17:00 cyclobenzaprine Allergy Unknown UNKNOWN Verified 04/21/20 17:00 [Cyclobenzaprine] fentanyl [FENTANYL] Allergy Unknown HALLUCINATI Verified 04/21/20 17:00 ONS topiramate [From Topamax] Allergy Unknown UNKNOWN Verified 04/21/20 17:00 Home Medications Medication Instructions Recorded Confirmed Type amitriptyline 1 tab PO BEDTIME 04/21/20 04/21/20 History amlodipine 1 tab PO DAILY 04/21/20 04/21/20 History aspirin 1 tab PO DAILY 04/21/20 04/21/20 History atenolol 1 tab PO DAILY 04/21/20 04/21/20 History clonazepam 1 tab PO BID 04/21/20 04/21/20 History diphenhydramine HCl [Banophen] 1 - 2 tab PO BEDTIME PRN 04/21/20 04/21/20 History divalproex 500 mg PO DAILY 04/21/20 04/22/20 History duloxetine 1 cap PO DAILY 04/21/20 04/21/20 History fenofibrate nanocrystallized 1 tab PO DAILY 04/21/20 04/21/20 History omeprazole 20 mg PO DAILY 04/21/20 04/22/20 History oxycodone-acetaminophen 1 tab PO 5XD PRN 04/21/20 04/21/20 History umeclidinium [Incruse Ellipta] 1 inh INHALATION DAILY 04/21/20 04/22/20 History divalproex 1,000 mg PO BEDTIME 04/22/20 04/22/20 History Physical Exam Vital Signs: Vital Signs: Last Vital Signs Temp 98.2 F 04/25/20 14:00 Pulse 76 04/25/20 14:00 Resp 16 04/25/20 14:00 BP 143/74 H 04/25/20 14:00 Pulse Ox 94 04/25/20 14:00 Body Mass Index 37.6 Const: General: confusion Orientation/consciousness: confusion HENMT: Head: Yes normal to inspection Mouth: Normal oral and palatal mucosa present Eyes: General: appearance normal, both eyes and all related structures Resp: Effort & Inspection: abnormal respiratory pattern Cardio: Rate: regular rate Rhythm: regular rhythm GI: Inspection: Yes normal to inspection Skin: General skin exam: no rashes or lesions noted Neuro: General: confusion Extrem: General: Yes normal to inspection Assessment and Plan (1) Acute respiratory failure with hypoxia and hypercarbia: Problem details: There is COPD exacerbation worsening last month Possible atypical No lobar pneumonia is seen and there is no fever I see no signs of sepsis showing need for antibiotic escalation at this time Status: Acute Doxycycline 100 mg bid Check Legionella (2) COPD exacerbation: Status: Acute Results Labs CBC & Chem 7: 04/25/20 05:33 04/25/20 05:33 Labs: Short CBC 04/25/20 Range/Units 05:33 WBC 13.6 H (4.8-10.8) X10*3/uL Hgb 11.7 L (12.0-16.0) g/dl Hct 39.4 (37-47) % Plt Count 336 (160-400) X10*3/uL BMP 04/25/20 05:33 Sodium 138 Potassium 4.2 Chloride 93 L Carbon Dioxide 41 H* BUN 32 H Creatinine 0.89 Calcium 8.4 Microbiology Microbiology Results: Microbiology 04/21/20 18:45 Blood - Venous Blood Culture - Preliminary No growth after 48 hours. 04/21/20 18:36 Blood - Venous Blood Culture - Preliminary No growth after 48 hours.
[2020-04-25] MEDS: Doxycycline Hyclate 100 MG in 0.9 % Sodium Chloride 250 ML 166.67 MG IV (15:01)
[2020-04-25] MEDS: clonazePAM 0.5 MG TABLET PO (21:02)
[2020-04-25] MEDS: vancomycin HCL 1,000 MG in 0.9 % Sodium Chloride 250 ML 250 MG IV (21:06)
[2020-04-25] MEDS: Amitriptyline HCl 25 MG TABLET PO (21:11)
[2020-04-25] MEDS: Chlorhexidine Gluc Oral Rinse 15 ML MOUTHWASH BUCCAL (23:26)
[2020-04-26] VITALS (27 sets, daily range): BP systolic 98–166; BP diastolic 55–91; PULSE 64–98; RESP 11–20; TEMP 36.6–37.8; O2SAT 90–96; BMI 38.5; BMI 37.6
[2020-04-26] MEDS: 0.9 % Sodium Chloride Flush 3 ML SYRINGE IVFLUSH ×3 (00:05→17:25)
[2020-04-26] MEDS: Doxycycline Hyclate 100 MG in 0.9 % Sodium Chloride 250 ML 166.67 MG IV ×2 (03:25→15:24)
[2020-04-26 05:06] LABS: MANUAL DIFF FLAG NO
[2020-04-26 05:19] LABS: Basophils Percent Auto 0.1 % (0-2); Hematocrit 40.3 % (37-47); Hemoglobin 11.8 g/dl (12.0-16.0); Imm Gran Abs Auto 0.11 X10*3/uL (0.00-0.03); Imm Gran Pct Auto 0.8 % (0.0-0.4); Lymphocytes Absolute Auto 1.4 X10*3/uL (1.2-4.9); Lymphocytes Percent Auto 10.6 % (20-40); Mean Corpuscular HGB Conc 29.3 g/dl (31.0-35.0); Mean Corpuscular Hemoglobin 26.8 pg (27.0-33.0); Mean Corpuscular Volume 91.4 fL (80-98); Mean Platelet Volume 9.7 fL (9.4-12.3); Monocytes Absolute Auto 1.3 X10*3/uL (0.1-1.2); Monocytes Percent Auto 9.5 % (2-11); Neutrophils Absolute Auto 10.7 X10*3/uL (2.0-8.3); Platelet Count 343 X10*3/uL (160-400); Red Blood Count 4.41 X10*6/uL (4.20-5.50); White Blood Count 13.6 X10*3/uL (4.8-10.8)
[2020-04-26 05:27] LABS: Base Excess VBG 9.4 mmol/L; HCO3 VBG 39 mmol/L; Oxygen Saturation VBG 98.5 %; PCO2 VBG 82 mmhg; PO2 VBG 136 mmhg
[2020-04-26 05:37] LABS: D Dimer 202 NG/ML
[2020-04-26 05:57] LABS: B Type Natriuretic Peptide 89 pg/mL (<100)
[2020-04-26 06:03] LABS: Anion Gap 12 (12-20); Blood Urea Nitrogen 33 mg/dL (9-16); Calcium 8.3 mg/dL (8.4-10.2); Carbon Dioxide 36 mmol/L (22-29); Chloride 97 mmol/L (96-108); Creatinine Clr Calc Pharmacy 86.7; Estimated Glomerular Filt Rate > 60; Glucose Random 97 mg/dL (60-115); Potassium 4.5 mmol/l (3.3-5.1); Sodium 140 mmol/L (135-145)
[2020-04-26] MEDS: Pantoprazole Sodium 40 MG/10 ML VIAL IVPUSH (06:20)
[2020-04-26] MEDS: Fluticasone/Vilanterol 100/25 BLST.W.DEV 1 PUFF INHALE (07:56)
[2020-04-26] MEDS: oxyCODONE HCl Immed Release 5 MG TABLET 7.5 MG PO ×3 (09:43→21:56)
[2020-04-26] MEDS: vancomycin HCL 1,000 MG in 0.9 % Sodium Chloride 250 ML 270 MG IV (09:45)
[2020-04-26] MEDS: Pregabalin 25 MG CAPSULE 50 MG PO (09:50)
[2020-04-26] MEDS: amLODIPine Besylate 10 MG TABLET PO (09:50)
[2020-04-26] MEDS: predniSONE 20 MG TABLET 40 MG PO (09:51)
[2020-04-26] MEDS: DULoxetine HCl 60 MG CAPSULE.DR PO (09:51)
[2020-04-26] MEDS: carvediloL 12.5 MG TABLET PO ×2 (09:54→21:50)
[2020-04-26] MEDS: modafiniL 100 MG TABLET PO (09:54)
[2020-04-26] MEDS: Divalproex Sodium ER 500 MG TAB.ER.24H PO (09:55)
[2020-04-26] MEDS: acetaZOLAMIDE 250 MG TABLET PO (09:55)
[2020-04-26] MEDS: Heparin Sodium,Porcine 5,000 UNIT/ML VIAL 5000 UNIT SUBCUT ×2 (09:58→21:50)
[2020-04-26] MEDS: Chlorhexidine Gluc Oral Rinse 15 ML MOUTHWASH BUCCAL ×2 (10:13→15:29)
[2020-04-26] MEDS: Spironolactone 25 MG TABLET 12.5 MG PO (10:15)
[2020-04-26] MEDS: Acetaminophen 325 MG TABLET 650 MG PO (12:41)
[2020-04-26 12:48] LABS: MRSA Nasal PCR NEGATIVE (Negative); SA Nasal PCR NEGATIVE (Negative)
--- NOTE | 2020-04-26 14:45 | MHC.CM.PN ---
Pt continues to receive care in ICU for COPD: on high flow O2: Initial d/c plan was for home with possible VNA. Call made to financial services - message left - as pt does not appear to have coverage that would include skilled home visits. CM to follow.
[2020-04-26 15:13] LABS: pH ABG 7.29 (7.35-7.45)
[2020-04-26 15:14] LABS: ABG PCO2 74 mmhg (32-45); HCO3 ABG 35 mmol/l (22-26); PO2 ABG 93 mmhg (83-108)
[2020-04-26 15:15] LABS: Base Excess ABG 5.6; Oxygen Saturation ABG 96.8 %
--- NOTE | 2020-04-26 15:59 | P.PNCC_ITS ---
Subjective Subjective Date of Service: 04/26/20 Interval History: 54-year-old morbidly obese lady with presentation of acute on chronic hypercarbic and hypoxic respiratory failure with altered mental status which has significantly improved she was on an excessive amount of divalproex extended release and I reduced it to once daily at 500 mg I reduced the amount of clonazepam to 0.5 mg q.h.s. along with her 25 mg of amitriptyline and I have reduced the frequency and dose of her chronic oxycodone because of her persistent bradypnea clearly has untreated obstructive sleep apnea and initially was around the clock on BiPAP with excellent tidal volume and now only requires nocturnal BiPAP and little by little she is nearing her chronic pCO2 level which is in the mid 60s and today's was 74 and this was on nasal high-flow at 40 liters/minute and she is able to eat her 3 meals a day she is out of bed into a chair and the only thing lacking is consultation from Pulmonary with outpatient follow-up and arrangement for qualification for a home BiPAP we never had CT scan indication of lower respiratory tract infection but there was a question of asthmatic bronchitis given her initial presentation and she no longer has status asthmaticus that is long since resolved underlying bipolar Physical Exam Vital Signs: Vital Signs: Last Vital Signs Temp 99.7 F 04/26/20 15:00 Pulse 92 04/26/20 15:00 Resp 18 04/26/20 15:13 BP 98/71 04/26/20 12:58 Pulse Ox 93 04/26/20 14:00 Body Mass Index 37.6 Const: Other: awake and oriented skin is intact with no wounds and no decubiti I and no acrocyanosis neurologic is nonfocal cardiac exam with normal S1 normal S2 no gallops or murmurs or neck vein distension and bedside echo showed normal LV and RV function and no primary valve or pericardial disease chest with diminished breath sounds bilaterally but no adventitious sounds abdomen obese but nondistended no diaphragmatic effort for respirations no acc essory muscle use Objective Data Labs CBC & Chem 7: 04/26/20 04:45 04/26/20 04:45 Labs: Laboratory Results - last 24 hr 04/25/20 04/26/20 04/26/20 15:15 04:40 04:45 WBC 13.6 H RBC 4.41 Hgb 11.8 L Hct 40.3 MCV 91.4 MCH 26.8 L MCHC 29.3 L RDW 14.0 Plt Count 343 MPV 9.7 Immature Gran % (Auto) 0.8 H Neut % (Auto) 79.0 H Lymph % (Auto) 10.6 L Rice % (Auto) 9.5 Eos % (Auto) 0.0 Baso % (Auto) 0.1 Lymph # (Auto) 1.4 Rice # (Auto) 1.3 H Eos # (Auto) 0.0 Baso # (Auto) 0.0 Abs Immat Gran (auto) 0.11 H Absolute Neuts (auto) 10.7 H Absolute Nucleated RBC 0.000 Nucleated RBC % (auto) 0.0 D-Dimer ABG pH ABG pCO2 ABG pO2 ABG HCO3 ABG O2 Saturation ABG Base Excess VBG pH 7.30 L VBG pCO2 82 VBG pO2 136 VBG HCO3 39 VBG O2 Saturation 98.5 VBG Base Excess 9.4 Oxygen Given Sodium Potassium Chloride Carbon Dioxide Anion Gap BUN Creatinine Estim Creat Clear Calc Estimated GFR Random Glucose Calcium Phosphorus Magnesium B-Natriuretic Peptide Nasal Screen MRSA (PCR) NEGATIVE Nasal S. aureus Screen NEGATIVE Nasal MRSA/S.aureus Interp SEE NOTE 04/26/20 04/26/20 04/26/20 04:45 04:45 04:45 WBC RBC Hgb Hct MCV MCH MCHC RDW Plt Count MPV Immature Gran % (Auto) Neut % (Auto) Lymph % (Auto) Rice % (Auto) Eos % (Auto) Baso % (Auto) Lymph # (Auto) Rice # (Auto) Eos # (Auto) Baso # (Auto) Abs Immat Gran (auto) Absolute Neuts (auto) Absolute Nucleated RBC Nucleated RBC % (auto) D-Dimer 202 ABG pH ABG pCO2 ABG pO2 ABG HCO3 ABG O2 Saturation ABG Base Excess VBG pH VBG pCO2 VBG pO2 VBG HCO3 VBG O2 Saturation VBG Base Excess Oxygen Given Sodium 140 Potassium 4.5 Chloride 97 Carbon Dioxide 36 H Anion Gap 12 BUN 33 H Creatinine 0.83 Estim Creat Clear Calc 86.7 Estimated GFR > 60 Random Glucose 97 Calcium 8.3 L Phosphorus 4.0 Magnesium 2.0 B-Natriuretic Peptide 89 Nasal Screen MRSA (PCR) Nasal S. aureus Screen Nasal MRSA/S.aureus Interp 04/26/20 14:45 WBC RBC Hgb Hct MCV MCH MCHC RDW Plt Count MPV Immature Gran % (Auto) Neut % (Auto) Lymph % (Auto) Rice % (Auto) Eos % (Auto) Baso % (Auto) Lymph # (Auto) Rice # (Auto) Eos # (Auto) Baso # (Auto) Abs Immat Gran (auto) Absolute Neuts (auto) Absolute Nucleated RBC Nucleated RBC % (auto) D-Dimer ABG pH 7.29 L ABG pCO2 74 H* ABG pO2 93 ABG HCO3 35 H ABG O2 Saturation 96.8 ABG Base Excess 5.6 VBG pH VBG pCO2 VBG pO2 VBG HCO3 VBG O2 Saturation VBG Base Excess Oxygen Given . Sodium Potassium Chloride Carbon Dioxide Anion Gap BUN Creatinine Estim Creat Clear Calc Estimated GFR Random Glucose Calcium Phosphorus Magnesium B-Natriuretic Peptide Nasal Screen MRSA (PCR) Nasal S. aureus Screen Nasal MRSA/S.aureus Interp Microbiology Microbiology Results: Microbiology 04/21/20 18:45 Blood - Venous Blood Culture - Preliminary No growth after 48 hours. 04/21/20 18:36 Blood - Venous Blood Culture - Preliminary No growth after 48 hours. Progress Note: A&P Assessment and plan (1) Restless legs syndrome (RLS): Status: Acute (2) Sleep disorder: Status: Acute (3) Acute respiratory failure with hypoxia and hypercarbia: Problem details: There is COPD exacerbation worsening last month Possible atypical No lobar pneumonia is seen and there is no fever I see no signs of sepsis showing need for antibiotic escalation at this time Status: Acute (4) Pneumonia: Status: Acute (5) COPD exacerbation: Status: Acute (6) Bipolar disorder: Status: Acute (7) Acute on chronic diastolic CHF (congestive heart failure): Status: Acute Assessment and Plan: the plan is to transfer to [facility] for nocturnal BiPAP only and currently on daytime high-flow nasal cannula and slowly weaning her flow rate currently down to 40 liters/minute and she needs continued pulmonary rehab and pulmonary consult and testing to qualify her for a home BiPAP device antibiotic coverage for asthmatic bronchitis is with doxycycline Time Spent With Patient Time: Total time spent is greater than 50% in coordination of care (as documented) at patient's floor/unit and/or counseling patient: Total time spent with greater than 50% in coordination of care (as documented) at patient's floor/unit and/or counseling patient:: 35
--- NOTE | 2020-04-26 16:53 | PC.NURSE ---
pt remains on hi-flow 40% all day. pt transfer to bed to chair with one assist pt did de-sat to 86 with transfer although rebounded quickly. Pt remains with chronic pain issues in back and today CO headache due to family stressors. Pt is anxious about family situation. Lung sounds improved from fine crackles with diruesis -+20 IV cath removed and restarted in Left wrist for pt comfort. Core temp 100.0 at 1700
[2020-04-26] MEDS: Pregabalin 50 MG CAPSULE PO (21:50)
[2020-04-26] MEDS: Amitriptyline HCl 25 MG TABLET PO (21:50)
[2020-04-26] MEDS: clonazePAM 0.5 MG TABLET PO (21:52)
[2020-04-27] VITALS (11 sets, daily range): BP systolic 95–187; BP diastolic 67–86; PULSE 66–92; RESP 16–96; TEMP 36.7–37.1; O2SAT 90–98
[2020-04-27] MEDS: Acetaminophen 325 MG TABLET 650 MG PO ×3 (02:08→22:29)
[2020-04-27] MEDS: Doxycycline Hyclate 100 MG in 0.9 % Sodium Chloride 250 ML 166.67 MG IV ×2 (02:12→16:09)
[2020-04-27] MEDS: Fluticasone/Vilanterol 100/25 BLST.W.DEV 1 PUFF INHALE (07:40)
[2020-04-27] MEDS: Divalproex Sodium ER 500 MG TAB.ER.24H PO (08:33)
[2020-04-27] MEDS: Heparin Sodium,Porcine 5,000 UNIT/ML VIAL 5000 UNIT SUBCUT ×2 (08:33→20:39)
[2020-04-27] MEDS: predniSONE 20 MG TABLET 40 MG PO (08:33)
[2020-04-27] MEDS: Pantoprazole Sodium 40 MG/10 ML VIAL IVPUSH (08:33)
[2020-04-27] MEDS: Pregabalin 50 MG CAPSULE PO ×2 (08:33→20:38)
[2020-04-27] MEDS: amLODIPine Besylate 10 MG TABLET PO (08:34)
[2020-04-27] MEDS: carvediloL 12.5 MG TABLET PO ×2 (08:34→20:38)
[2020-04-27] MEDS: modafiniL 100 MG TABLET PO (08:34)
[2020-04-27] MEDS: 0.9 % Sodium Chloride Flush 3 ML SYRINGE IVFLUSH ×3 (08:35→23:57)
[2020-04-27] MEDS: DULoxetine HCl 60 MG CAPSULE.DR PO (08:36)
[2020-04-27] MEDS: oxyCODONE HCl Immed Release 5 MG TABLET 7.5 MG PO ×3 (08:40→20:38)
--- NOTE | 2020-04-27 14:25 | P.PNIM_ITS ---
Subjective Subjective Date of Service: 04/27/20 Interval History: the patient was seen and evaluated this morning Laying in bed, feels comfortable reporting shortness of breath with minimal exertion, requiring 5 L of oxygen No reported other overnight events. Systemic review: No fever, chills or weakness No chest pain, palpitation mild shortness of breath or coughing, still requiring oxygen supplement No abdominal pain, nausea or vomiting No urinary symptoms No any rash or wounds Physical Exam Vital Signs: Vital Signs: Last Vital Signs Temp 98.5 F 04/27/20 11:44 Pulse 73 04/27/20 11:44 Resp 16 04/27/20 11:44 BP 186/86 H 04/27/20 11:44 Pulse Ox 94 04/27/20 11:44 Body Mass Index 37.6 Constitutional : Alert, oriented, not in distress Neck : Normal inspection, Supple Cardiovascular : RRR, S1 S2, no lower extremity edema Respiratory : decreased bilateral air entry, no crackles, fine scattered wh eezes or rhonchi Gastrointestinal: soft, lax, Normal bowel sounds, Non tender Skin : Warm/Dry, No rash Neurological : Alert & oriented x3, No focal deficit Objective Data Current Medications Generic Name Dose Route Start Last Admin Trade Name Freq PRN Reason Stop Dose Admin Acetaminophen 650 mg 04/26/20 12:14 04/27/20 02:08 Acetaminophen 325 Mg Tablet PO 650 mg Q6H PRN Administration Pain and Fever Albuterol Sulfate 2.5 mg 04/21/20 22:35 Albuterol Sulfate (0.083%) 2.5 Mg/3 Ml Vial.Neb INHALE RQ4H PRN Shortness of Breath Amitriptyline HCl 25 mg 04/22/20 21:00 04/26/20 21:50 Amitriptyline Hcl 25 Mg Tablet PO 25 mg BEDTIME LONG Administration Amlodipine Besylate 10 mg 04/22/20 09:00 04/27/20 08:34 Amlodipine Besylate 10 Mg Tablet PO 10 mg DAILY LONG Administration Protocol Carvedilol 12.5 mg 04/22/20 09:00 04/27/20 08:34 Carvedilol 12.5 Mg Tablet PO 12.5 mg BID LONG Administration Protocol Clonazepam 0.5 mg 04/24/20 21:00 04/26/20 21:52 Clonazepam 0.5 Mg Tablet PO 0.5 mg BEDTIME LONG Administration Divalproex Sodium 500 mg 04/25/20 09:00 04/27/20 08:33 Divalproex Sodium Er 500 Mg Tab.Er.24h PO 500 mg DAILY LONG Administration Duloxetine HCl 60 mg 04/22/20 09:00 04/27/20 08:36 Duloxetine Hcl 60 Mg Capsule.Dr PO 60 mg DAILY LONG Administration Fluticasone/Vilanterol 1 puff 04/23/20 14:30 04/27/20 07:40 Fluticasone/Vilanterol 100/25 Blst.W.Dev INHALE 1 puff RDAILY LONG Administration Heparin Sodium (Porcine) 5,000 unit 04/21/20 21:00 04/27/20 08:33 Heparin Sodium,Porcine 5,000 Unit/Ml Vial SUBCUT 5,000 unit Q12H LONG Administration Doxycycline Hyclate 100 mg/ 250 mls @ 166.67 mls/hr 04/25/20 15:00 04/27/20 03:42 Sodium Chloride IV Infused Q12H LONG Infusion Modafinil 100 mg 04/26/20 09:00 04/27/20 08:34 Modafinil 100 Mg Tablet PO 100 mg DAILY LONG Administration Oxycodone HCl 7.5 mg 04/26/20 06:57 04/27/20 08:40 Oxycodone Hcl Immed Release 5 Mg Tablet PO 7.5 mg QID PRN Administration Pain, Moderate (Pain Scale 4-6 Pantoprazole Sodium 40 mg 04/26/20 06:30 04/27/20 08:33 Pantoprazole Sodium 40 Mg/10 Ml Vial IVPUSH 40 mg DAILY@0630 LONG Administration Prednisone 40 mg 04/26/20 09:00 04/27/20 08:33 Prednisone 20 Mg Tablet PO 40 mg DAILY LONG Administration Pregabalin 50 mg 04/26/20 21:00 04/27/20 08:33 Pregabalin 50 Mg Capsule PO 50 mg BID LONG Administration Sodium Chloride 3 ml 04/22/20 00:00 04/27/20 08:35 0.9 % Sodium Chloride Flush 3 Ml Syringe IVFLUSH 3 ml QSHIFT LONG Administration Labs CBC & Chem 7: 04/26/20 04:45 04/26/20 04:45 Microbiology Microbiology Results: Microbiology 04/21/20 18:45 Blood - Venous Blood Culture - Final No growth after 5 days. 04/21/20 18:36 Blood - Venous Blood Culture - Final No growth after 5 days. Assessment and Plan (1) Acute respiratory failure with hypoxia and hypercarbia: Status: Acute (2) COPD exacerbation: Status: Acute (3) Pneumonia: Status: Acute (4) Acute on chronic diastolic CHF (congestive heart failure): Status: Acute (5) Bipolar disorder: Status: Acute (6) Sleep disorder: Status: Acute (7) Restless legs syndrome (RLS): Status: Acute Assessment and Plan: a 54 years old female with PMH of COPD, morbid obesity, hypertension among others who presented to the hospital with altered mental status and found to be in acute respiratory failure. Acute hypoxic hypercapnic respiratory failure, improving COPD exacerbation No Infiltrate on images to suggest pneumonia continue bronchodilators ATC and p.r.n. Continue steroids continue doxycycline for anti-inflammatory effect To use BiPAP at bedtime To get pulmonology evaluation for outpatient care and BiPAP Acute Diastolic CHF exacerbation echo showing EF of 65-70% Received IV Lasix with fair response continue to monitor intake and output Uncontrolled hypertension continue amlodipine continue carvedilol b.i.d. Monitor Seizure disorder Continue divalproex, started on lower dose per ICU To check valproic acid level in the morning Neuropathy continue Lyrica and amitriptyline DVT PPX Heparin
[2020-04-27] MEDS: Albuterol/Iprat 2.5/0.5MG 3 ML AMPUL.NEB INHALE ×2 (15:17→19:17)
[2020-04-27] MEDS: clonazePAM 0.5 MG TABLET PO ×2 (16:21→20:38)
--- NOTE | 2020-04-27 16:50 | P.PNPL_ITS ---
Subjective Subjective Interval history: No events overnight. Mental status improved significantly. Essentially at baseline. Objective Data Labs CBC & Chem 7: 04/26/20 04:45 04/26/20 04:45 Microbiology Microbiology Results: Microbiology 04/21/20 18:45 Blood - Venous Blood Culture - Final No growth after 5 days. 04/21/20 18:36 Blood - Venous Blood Culture - Final No growth after 5 days. Review of Systems Cardiovascular: Denies chest pain and Denies dyspnea Respiratory: Denies cough, Denies dyspnea and Denies wheezing Allergic/Immunologic: Denies wheezing Physical Exam Vital Signs: Vital Signs: Last Vital Signs Temp 98.4 F 04/27/20 14:59 Pulse 79 04/27/20 15:20 Resp 20 04/27/20 14:59 BP 187/79 H 04/27/20 14:59 Pulse Ox 90 L 04/27/20 14:59 Body Mass Index 37.6 Const: General: alert and awake; No no acute distress Nutritional Maegan earance: obese Eyes: Sclerae: sclerae normal EOM: EOMs intact bilaterally Neck: Neck: Yes no lymphadenopathy, Yes trachea midline and Yes supple Resp: Effort & Inspection: normal respiratory effort and no respiratory distress Auscultation: clear to auscultation bilaterally Cardio: Rate: regular rate Rhythm: regular rhythm Heart sounds: no gallops, no murmurs and no rubs GI: Palpation (GI): Soft to palpation and Other GI palpation findings present ( Nontender) Auscultation: normal bowel sounds Extrem: General: No clubbing, No cyanosis and Yes edema ( Trace bilateral) Procedures Abscess I/D Date of Service: 04/27/20 Assessment and Plan Assessment and plan (1) Sleep disorder: Status: Acute Assessment and Plan: Impression: Underlying obstructive sleep apnea with obesity hyperventilation/hypercapnia syndrome. Appears to also have a component of acute valproate toxicity, now resolved. Recommendations: Patient requiring noninvasive positive pressure ventilation at night and as needed for nebs. Would start CPAP qualify for in process with o vernight oximetry. Would discharge on provisional CPAP and recommend further pulmonary ambulatory follow-up for abnormal CT chest findings noted ( likely inflammatory/infectious, but will require follow-up CT chest in 3 months) and for IVY/OHHS. (2) Acute respiratory failure with hypoxia and hypercarbia: Status: Acute Time Spent With Patient Time with patient: 25 - 35 minutes
[2020-04-27] MEDS: Amitriptyline HCl 25 MG TABLET PO (20:38)
[2020-04-28] VITALS (12 sets, daily range): BP systolic 92–171; BP diastolic 61–78; PULSE 70–85; RESP 18–22; TEMP 36.8–37.4; O2SAT 91–97
[2020-04-28] MEDS: Doxycycline Hyclate 100 MG in 0.9 % Sodium Chloride 250 ML 250 MG IV ×2 (02:55→16:17)
[2020-04-28] MEDS: polyethylene glycoL 3350 17 GM POWD.PACK PO (02:56)
--- NOTE | 2020-04-28 03:54 | PC.NURSE ---
Alert and oriented x 4, afebrile. No complaints of chest pain, SOB headache or dizziness. Lung sounds diminished, tolerating oxygen at 2 LPM via nasal cannula, sats in the low to mid 90s. ABG to be rechecked in AM. Verbalized of having no BM for a week, paged Dr. Wagoner, ordered Miralax and it was given to patient. Slept most part of the night with no further complaints. Needs were attended. Will continue care plan.
[2020-04-28 06:36] LABS: Hematocrit 39.7 % (37-47); Hemoglobin 11.7 g/dl (12.0-16.0); Mean Corpuscular HGB Conc 29.5 g/dl (31.0-35.0); Mean Corpuscular Hemoglobin 26.5 pg (27.0-33.0); Mean Platelet Volume 10.1 fL (9.4-12.3); Platelet Count 297 X10*3/uL (160-400); Red Blood Count 4.41 X10*6/uL (4.20-5.50); Red Cell Distribution Width 14.2 % (11.0-16.0); White Blood Count 12.4 X10*3/uL (4.8-10.8)
[2020-04-28] MEDS: Pantoprazole Sodium 40 MG/10 ML VIAL IVPUSH (06:45)
[2020-04-28] MEDS: oxyCODONE HCl Immed Release 5 MG TABLET 7.5 MG PO ×4 (06:46→21:48)
[2020-04-28 06:50] LABS: Pt Ventilation O2% 2 L
[2020-04-28 06:55] LABS: Base Excess ABG 10.9; HCO3 ABG 40 mmol/l (22-26); PO2 ABG 54 mmhg (83-108); pH ABG 7.31 (7.35-7.45)
[2020-04-28 06:56] LABS: Oxygen Saturation ABG 86.5 %
[2020-04-28 06:58] LABS: ABG PCO2 83 mmhg (32-45)
[2020-04-28 07:02] LABS: Anion Gap 10 (12-20); Blood Urea Nitrogen 24 mg/dL (9-16); Calcium 8.2 mg/dL (8.4-10.2); Carbon Dioxide 39 mmol/L (22-29); Chloride 100 mmol/L (96-108); Creatinine Clr Calc Pharmacy 89.9; Estimated Glomerular Filt Rate > 60; Glucose Random 72 mg/dL (60-115); Potassium 3.7 mmol/l (3.3-5.1); Sodium 145 mmol/L (135-145)
[2020-04-28] MEDS: Albuterol/Iprat 2.5/0.5MG 3 ML AMPUL.NEB INHALE ×4 (07:18→20:30)
[2020-04-28] MEDS: Fluticasone/Vilanterol 100/25 BLST.W.DEV 1 PUFF INHALE (07:19)
[2020-04-28] MEDS: DULoxetine HCl 60 MG CAPSULE.DR PO (08:48)
[2020-04-28] MEDS: Pregabalin 50 MG CAPSULE PO ×2 (08:48→21:48)
[2020-04-28] MEDS: Heparin Sodium,Porcine 5,000 UNIT/ML VIAL 5000 UNIT SUBCUT ×2 (08:49→21:48)
[2020-04-28] MEDS: carvediloL 12.5 MG TABLET PO ×2 (08:49→21:48)
[2020-04-28] MEDS: modafiniL 100 MG TABLET PO (08:49)
[2020-04-28] MEDS: Divalproex Sodium ER 500 MG TAB.ER.24H PO (08:49)
[2020-04-28] MEDS: predniSONE 20 MG TABLET 40 MG PO (08:49)
[2020-04-28] MEDS: 0.9 % Sodium Chloride Flush 3 ML SYRINGE IVFLUSH ×3 (08:50→21:48)
[2020-04-28] MEDS: Furosemide 20 MG/2 ML VIAL IVPUSH (11:36)
[2020-04-28] MEDS: Milk of Magnesia 30 ML ORAL.SUSP 15 ML PO (11:36)
--- NOTE | 2020-04-28 13:25 | HO.PM.IMPN ---
Subjective Subjective Date of Service: 04/28/20 Interval History: the patient was seen and evaluated this morning Laying in bed, feels comfortable reporting shortness of breath with minimal exertion, had an overnight oximetry study No reported other overnight events. Systemic review: No fever, chills or weakness No chest pain, palpitation mild shortness of breath or coughing, still requiring oxygen supplement No abdominal pain, nausea or vomiting No urinary symptoms No any rash or wounds Physical Exam Vital Signs: Vital Signs: Last Vital Signs Temp 98.8 F 04/28/20 12:00 Pulse 70 04/28/20 12:00 Resp 20 04/28/20 12:00 BP 94/66 04/28/20 12:00 Pulse Ox 93 04/28/20 12:00 Body Mass Index 37.6 Constitutional : Alert, oriented, not in distress Neck : Normal inspection, Supple Cardiovascular : RRR, S1 S2, +1 Lower extremity edema Respiratory : decreased bilateral air entry, no crackles, fine scattered wheezes or rhonchi Gastrointestinal: soft, lax, Normal bowel sounds, Non tender Skin : Warm/Dry, No rash Neurological : Alert & oriented x3, No focal deficit Objective Data Current Medications Generic Name Dose Route Start Last Admin Trade Name Freq PRN Reason Stop Dose Admin Acetaminophen 650 mg 04/26/20 12:14 04/27/20 22:29 Acetaminophen 325 Mg Tablet PO 650 mg Q6H PRN Administration Pain and Fever Albuterol Sulfate 2.5 mg 04/21/20 22:35 Albuterol Sulfate (0.083%) 2.5 Mg/3 Ml Vial.Neb INHALE RQ4H PRN Shortness of Breath Albuterol/Ipratropium 3 ml 04/27/20 16:00 04/28/20 11:07 Albuterol/Iprat 2.5/0.5mg 3 Ml Ampul.Neb INHALE 3 ml RQ4H WHILE AWAKE LONG Administration Amitriptyline HCl 25 mg 04/22/20 21:00 04/27/20 20:38 Amitriptyline Hcl 25 Mg Tablet PO 25 mg BEDTIME LONG Administration Amlodipine Besylate 10 mg 04/22/20 09:00 04/28/20 08:50 Amlodipine Besylate 10 Mg Tablet PO Not Given DAILY LONG Protocol Carvedilol 12.5 mg 04/22/20 09:00 04/28/20 08:49 Carvedilol 12.5 Mg Tablet PO 12.5 mg BID LONG Administration Protocol Clonazepam 0.5 mg 04/24/20 21:00 04/27/20 20:38 Clonazepam 0.5 Mg Tablet PO 0.5 mg BEDTIME LONG Administration Divalproex Sodium 500 mg 04/25/20 09:00 04/28/20 08:49 Divalproex Sodium Er 500 Mg Tab.Er.24h PO 500 mg DAILY LONG Administration Docusate Sodium 100 mg 04/28/20 21:00 Docusate Sodium 100 Mg Capsule PO BEDTIME LONG Duloxetine HCl 60 mg 04/22/20 09:00 04/28/20 08:48 Duloxetine Hcl 60 Mg Capsule.Dr PO 60 mg DAILY LONG Administration Fluticasone/Vilanterol 1 puff 04/23/20 14:30 04/28/20 07:19 Fluticasone/Vilanterol 100/25 Blst.W.Dev INHALE 1 puff RDAILY LONG Administration Heparin Sodium (Porcine) 5,000 unit 04/21/20 21:00 04/28/20 08:49 Heparin Sodium,Porcine 5,000 Unit/Ml Vial SUBCUT 5,000 unit Q12H LONG Administration Doxycycline Hyclate 100 mg/ 250 mls @ 166.67 mls/hr 04/25/20 15:00 04/28/20 04:10 Sodium Chloride IV Infused Q12H LONG Infusion Modafinil 100 mg 04/26/20 09:00 04/28/20 08:49 Modafinil 100 Mg Tablet PO 100 mg DAILY LONG Administration Oxycodone HCl 7.5 mg 04/26/20 06:57 04/28/20 11:37 Oxycodone Hcl Immed Release 5 Mg Tablet PO 7.5 mg QID PRN Administration Pain, Moderate (Pain Scale 4-6 Pantoprazole Sodium 40 mg 04/26/20 06:30 04/28/20 06:45 Pantoprazole Sodium 40 Mg/10 Ml Vial IVPUSH 40 mg DAILY@0630 LONG Administration Polyethylene Glycol 17 gm 04/28/20 01:55 04/28/20 08:51 Polyethylene Glycol 3350 17 Gm Powd.Pack PO Not Given DAILY LONG Prednisone 40 mg 04/26/20 09:00 04/28/20 08:49 Prednisone 20 Mg Tablet PO 40 mg DAILY LONG Administration Pregabalin 50 mg 04/26/20 21:00 04/28/20 08:48 Pregabalin 50 Mg Capsule PO 50 mg BID LONG Administration Sodium Chloride 3 ml 04/22/20 00:00 04/28/20 08:50 0.9 % Sodium Chloride Flush 3 Ml Syringe IVFLUSH 3 ml QSHIFT LONG Administration Labs CBC & Chem 7: 04/28/20 05:36 04/28/20 05:36 Microbiology Microbiology Results: Microbiology 04/21/20 18:45 Blood - Venous Blood Culture - Final No growth after 5 days. 04/21/20 18:36 Blood - Venous Blood Culture - Final No growth after 5 days. Assessment and Plan (1) Acute respiratory failure with hypoxia and hypercarbia: Status: Acute (2) COPD exacerbation: Status: Acute (3) Pneumonia: Status: Acute (4) Acute on chronic diastolic CHF (congestive heart failure): Status: Acute (5) Bipolar disorder: Status: Acute (6) Sleep disorder: Status: Acute (7) Restless legs syndrome (RLS): Status: Acute Assessment and Plan: a 54 years old female with PMH of COPD, morbid obesity, hypertension among others who presented to the hospital with altered mental status and found to be in acute respiratory failure. Acute hypoxic hypercapnic respiratory failure, improving COPD exacerbation No Infiltrate on images to suggest pneumonia continue bronchodilators ATC and p.r.n. Continue steroids continue doxycycline for anti-inflammatory effect To use BiPAP at bedtime pulmonology input appreciated, on CPAP Oximetry overnight done, to be reviewed by pulmonology To discharge on nebulizer machine as well Acute Diastolic CHF exacerbation echo showing EF of 65-70% continue IV Lasix today continue to monitor intake and output Uncontrolled hypertension running on the lower H today Hold amlodipine continue carvedilol b.i.d. Monitor Seizure disorder Continue divalproex, started on lower dose per ICU To check valproic acid level in the morning Neuropathy continue Lyrica and amitriptyline DVT PPX Heparin
--- NOTE | 2020-04-28 14:04 | PM.EVENT ---
Event Note Date of Service: 04/28/20 Event Note: patient blood and sputum culture unremarkable Would give po Doxycycline 100 mg bid for a week No Merem indication seen
[2020-04-28] MEDS: Acetaminophen 325 MG TABLET 650 MG PO ×2 (14:09→23:12)
[2020-04-28 15:07] LABS: Strep Pneumo Ag urine Not Detected (Not Detected)
[2020-04-28] MEDS: clonazePAM 0.5 MG TABLET PO ×2 (17:27→21:48)
[2020-04-28] MEDS: Amitriptyline HCl 25 MG TABLET PO (21:48)
[2020-04-28] MEDS: Docusate Sodium 100 MG CAPSULE PO (21:48)
--- NOTE | 2020-04-28 23:52 | PC.NURSE ---
Doty removed at 2300. Patient tolerated well. Educated patient to use call manley when she needs to void. Due to void by 0500.
[2020-04-29] VITALS (12 sets, daily range): BP systolic 104–155; BP diastolic 64–87; PULSE 67–96; RESP 14–20; TEMP 36.2–36.7; O2SAT 84–99
[2020-04-29] MEDS: Doxycycline Hyclate 100 MG in 0.9 % Sodium Chloride 250 ML 166 MG IV (03:58)
[2020-04-29] MEDS: Pantoprazole Sodium 40 MG/10 ML VIAL IVPUSH (05:21)
[2020-04-29] MEDS: oxyCODONE HCl Immed Release 5 MG TABLET 7.5 MG PO ×4 (05:21→21:19)
[2020-04-29 06:21] LABS: Hemoglobin 11.7 g/dl (12.0-16.0); Mean Corpuscular Hemoglobin 26.8 pg (27.0-33.0); Mean Corpuscular Volume 89.2 fL (80-98); Mean Platelet Volume 9.9 fL (9.4-12.3); Platelet Count 278 X10*3/uL (160-400); Red Blood Count 4.37 X10*6/uL (4.20-5.50); Red Cell Distribution Width 14.3 % (11.0-16.0); White Blood Count 12.6 X10*3/uL (4.8-10.8)
[2020-04-29 06:42] LABS: Pt Ventilation O2% 3 L
[2020-04-29 06:45] LABS: HCO3 ABG 39 mmol/l (22-26); PO2 ABG 75 mmhg (83-108); pH ABG 7.35 (7.35-7.45)
[2020-04-29 06:46] LABS: Base Excess ABG 10.5
[2020-04-29 06:47] LABS: ABG PCO2 72 mmhg (32-45)
[2020-04-29 06:49] LABS: Anion Gap 13 (12-20); Blood Urea Nitrogen 24 mg/dL (9-16); Calcium 7.9 mg/dL (8.4-10.2); Carbon Dioxide 37 mmol/L (22-29); Chloride 96 mmol/L (96-108); Creatinine Clr Calc Pharmacy 93.4; Estimated Glomerular Filt Rate > 60; Glucose Random 67 mg/dL (60-115); Potassium 3.6 mmol/l (3.3-5.1); Sodium 142 mmol/L (135-145)
[2020-04-29 07:08] LABS: Valproate 8.8 mcg/mL (50.0-100.0)
[2020-04-29] MEDS: 0.9 % Sodium Chloride Flush 3 ML SYRINGE IVFLUSH ×2 (07:35→16:35)
[2020-04-29] MEDS: carvediloL 12.5 MG TABLET PO ×2 (07:35→21:05)
[2020-04-29] MEDS: Divalproex Sodium ER 500 MG TAB.ER.24H PO (07:36)
[2020-04-29] MEDS: amLODIPine Besylate 10 MG TABLET PO (07:36)
[2020-04-29] MEDS: predniSONE 20 MG TABLET 40 MG PO (07:36)
[2020-04-29] MEDS: Pregabalin 50 MG CAPSULE PO ×2 (07:36→21:06)
[2020-04-29] MEDS: DULoxetine HCl 60 MG CAPSULE.DR PO (07:37)
[2020-04-29] MEDS: Heparin Sodium,Porcine 5,000 UNIT/ML VIAL 5000 UNIT SUBCUT ×2 (07:37→21:20)
[2020-04-29] MEDS: modafiniL 100 MG TABLET PO (07:37)
[2020-04-29] MEDS: Omeprazole 20 MG CAPSULE.DR PO (07:49)
[2020-04-29] MEDS: Albuterol/Iprat 2.5/0.5MG 3 ML AMPUL.NEB INHALE ×4 (08:16→20:16)
[2020-04-29] MEDS: Fluticasone/Vilanterol 100/25 BLST.W.DEV 1 PUFF INHALE (08:16)
--- NOTE | 2020-04-29 10:58 | PM.EVENT ---
Event Note Date of Service: 04/29/20 Event Note: progress note Patient seen evaluated this morning Assessment and plan Acute on chronic hypoxic respiratory failure secondary to COPD exacerbation No Infiltrate on images to suggest pneumonia continue bronchodilators ATC and p.r.n. Continue steroids continue doxycycline for anti-inflammatory effect To use BiPAP at bedtime Oximetry overnight done Evaluated by pulmonology, recommendation to use noninvasive ventilator at home to help with gas change and decrease rate of admissions. Hopefully to improve quality of life. To discharge on nebulizer machine as well
--- NOTE | 2020-04-29 11:53 | MHC.CLN ---
F/U PO INTAKE 75-100% DIET RX: 2GM NA-APPROPRIATE RECOMMEND 1600 CALORIES PER DAY TO PROMOTE SLOW WT LOSS FOLLOWING
[2020-04-29] MEDS: Acetaminophen 325 MG TABLET 650 MG PO ×2 (12:00→21:21)
[2020-04-29] MEDS: clonazePAM 0.5 MG TABLET PO (13:45)
[2020-04-29] MEDS: Doxycycline Hyclate 100 MG in 0.9 % Sodium Chloride 250 ML 250 MG IV (14:35)
--- NOTE | 2020-04-29 14:48 | HO.PM.IMPN ---
Subjective Subjective Date of Service: 04/29/20 Interval History: the patient was seen and evaluated this morning Laying in bed, feels comfortable reporting shortness of breath with minimal exertion, feels much better since admission Still requiring oxygen supplement during the at night No reported other overnight events. Systemic review: No fever, chills or weakness No chest pain, palpitation mild shortness of breath or coughing, still requiring oxygen supplement No abdominal pain, nausea or vomiting No urinary symptoms No any rash or wounds Physical Exam Vital Signs: Vital Signs: Last Vital Signs Temp 97.9 F 04/29/20 11:45 Pulse 69 04/29/20 11:45 Resp 20 04/29/20 11:45 BP 110/67 04/29/20 11:45 Pulse Ox 97 04/29/20 11:45 Body Mass Index 37.6 Constitutional : Alert, oriented, not in distress Neck : Normal inspection, Supple Cardiovascular : RRR, S1 S2, no lower extremity edema Respiratory : fair bilateral air entry, mild basal crackles, fine scattered wheezes or rhonchi Gastrointestinal: soft, lax, Normal bowel sounds, Non tender Skin : Warm/Dry, No rash Neurological : Alert & oriented x3, No focal deficit Objective Data Current Medications Generic Name Dose Route Start Last Admin Trade Name Freq PRN Reason Stop Dose Admin Acetaminophen 650 mg 04/26/20 12:14 04/29/20 12:00 Acetaminophen 325 Mg Tablet PO 650 mg Q6H PRN Administration Pain and Fever Albuterol/Ipratropium 3 ml 04/27/20 16:00 04/29/20 11:33 Albuterol/Iprat 2.5/0.5mg 3 Ml Ampul.Neb INHALE 3 ml RQ4H WHILE AWAKE LONG Administration Amitriptyline HCl 25 mg 04/22/20 21:00 04/28/20 21:48 Amitriptyline Hcl 25 Mg Tablet PO 25 mg BEDTIME LONG Administration Amlodipine Besylate 10 mg 04/22/20 09:00 04/29/20 07:36 Amlodipine Besylate 10 Mg Tablet PO 10 mg DAILY LONG Administration Protocol Carvedilol 12.5 mg 04/22/20 09:00 04/29/20 07:35 Carvedilol 12.5 Mg Tablet PO 12.5 mg BID LONG Administration Protocol Clonazepam 0.5 mg 04/24/20 21:00 04/28/20 21:48 Clonazepam 0.5 Mg Tablet PO 0.5 mg BEDTIME LONG Administration Divalproex Sodium 500 mg 04/25/20 09:00 04/29/20 07:36 Divalproex Sodium Er 500 Mg Tab.Er.24h PO 500 mg DAILY LONG Administration Docusate Sodium 100 mg 04/28/20 21:00 04/28/20 21:48 Docusate Sodium 100 Mg Capsule PO 100 mg BEDTIME LONG Administration Duloxetine HCl 60 mg 04/22/20 09:00 04/29/20 07:37 Duloxetine Hcl 60 Mg Capsule. PO 60 mg DAILY LONG Administration Fluticasone/Vilanterol 1 puff 04/23/20 14:30 04/29/20 08:16 Fluticasone/Vilanterol 100/25 Blst.W.Dev INHALE 1 puff RDAILY LONG Administration Heparin Sodium (Porcine) 5,000 unit 04/21/20 21:00 04/29/20 07:37 Heparin Sodium,Porcine 5,000 Unit/Ml Vial SUBCUT 5,000 unit Q12H LONG Administration Doxycycline Hyclate 100 mg/ 250 mls @ 166.67 mls/hr 04/25/20 15:00 04/29/20 14:35 Sodium Chloride IV 250 mls/hr Q12H LONG Administration Modafinil 100 mg 04/26/20 09:00 04/29/20 07:37 Modafinil 100 Mg Tablet PO 100 mg DAILY LONG Administration Omeprazole 20 mg 04/30/20 06:30 04/29/20 07:49 Omeprazole 20 Mg Capsule. PO 20 mg DAILY@0630 LONG Administration Oxycodone HCl 7.5 mg 04/26/20 06:57 04/29/20 11:03 Oxycodone Hcl Immed Release 5 Mg Tablet PO 7.5 mg QID PRN Administration Pain, Moderate (Pain Scale 4-6 Polyethylene Glycol 17 gm 04/28/20 01:55 04/29/20 07:40 Polyethylene Glycol 3350 17 Gm Powd.Pack PO Not Given DAILY [facility] Prednisone 40 mg 04/26/20 09:00 04/29/20 07:36 Prednisone 20 Mg Tablet PO 40 mg DAILY LONG Administration Pregabalin 50 mg 04/26/20 21:00 04/29/20 07:36 Pregabalin 50 Mg Capsule PO 50 mg BID LONG Administration Sodium Chloride 3 ml 04/22/20 00:00 04/29/20 07:35 0.9 % Sodium Chloride Flush 3 Ml Syringe IVFLUSH 3 ml QSHIFT LONG Administration Labs CBC & Chem 7: 04/29/20 05:34 04/29/20 05:34 Microbiology Microbiology Results: Microbiology 04/21/20 18:45 Blood - Venous Blood Culture - Final No growth after 5 days. 04/21/20 18:36 Blood - Venous Blood Culture - Final No growth after 5 days. Assessment and Plan (1) Acute respiratory failure with hypoxia and hypercarbia: Status: Acute (2) COPD exacerbation: Status: Acute (3) Pneumonia: Status: Acute (4) Acute on chronic diastolic CHF (congestive heart failure): Status: Acute (5) Bipolar disorder: Status: Acute (6) Sleep disorder: Status: Acute (7) Restless legs syndrome (RLS): Status: Acute Assessment and Plan: a 54 years old female with PMH of COPD, morbid obesity, hypertension among others who presented to the hospital with altered mental status and found to be in acute respiratory failure. Acute hypoxic hypercapnic respiratory failure, improving COPD exacerbation No Infiltrate on images to suggest pneumonia continue bronchodilators ATC and p.r.n. Continue steroids continue doxycycline for anti-inflammatory effect To use BiPAP at bedtime pulmonology input appreciated, to discharge home on noninvasive ventilation To discharge on nebulizer machine as well for insurance problem patient will not be able to get the machines CPAP, nebulizer, home oxygen at this point. Plan to discharge her to SNF and tilt she can get the equipments at home. Acute Diastolic CHF exacerbation echo showing EF of 65-70% continue IV Lasix continue to monitor intake and output Uncontrolled hypertension Better controlled today continue amlodipine continue carvedilol b.i.d. Monitor anxiety, depression by ICU valproic acid dose decreased to 500 daily the patient report using the medication for depression not for seizures. Denies any she seizure history Neuropathy continue Lyrica and amitriptyline DVT PPX Heparin
[2020-04-29 19:24] LABS: COVID-19 Test Negative (Negative); IDNOW Serial# 9DD0AD1C
[2020-04-29] MEDS: Docusate Sodium 100 MG CAPSULE PO (21:05)
[2020-04-29] MEDS: Amitriptyline HCl 25 MG TABLET PO (21:06)
[2020-04-30] VITALS (8 sets, daily range): BP systolic 123–148; BP diastolic 60–81; PULSE 61–80; RESP 14–20; TEMP 36.2–37.3; O2SAT 92–95
[2020-04-30] MEDS: 0.9 % Sodium Chloride Flush 3 ML SYRINGE IVFLUSH ×3 (00:18→15:51)
[2020-04-30] MEDS: clonazePAM 0.5 MG TABLET PO ×2 (00:18→11:53)
[2020-04-30] MEDS: Doxycycline Hyclate 100 MG in 0.9 % Sodium Chloride 250 ML 166 MG IV ×2 (04:19→15:19)
[2020-04-30] MEDS: Albuterol/Iprat 2.5/0.5MG 3 ML AMPUL.NEB INHALE ×2 (07:35→15:59)
[2020-04-30] MEDS: Fluticasone/Vilanterol 100/25 BLST.W.DEV 1 PUFF INHALE ×2 (07:49)
[2020-04-30] MEDS: Omeprazole 20 MG CAPSULE.DR PO (07:52)
[2020-04-30] MEDS: oxyCODONE HCl Immed Release 5 MG TABLET 7.5 MG PO ×2 (09:07→15:19)
[2020-04-30] MEDS: Heparin Sodium,Porcine 5,000 UNIT/ML VIAL 5000 UNIT SUBCUT (09:08)
[2020-04-30] MEDS: predniSONE 20 MG TABLET 40 MG PO (09:09)
[2020-04-30] MEDS: carvediloL 12.5 MG TABLET PO (09:09)
[2020-04-30] MEDS: Pregabalin 50 MG CAPSULE PO (09:09)
[2020-04-30] MEDS: amLODIPine Besylate 10 MG TABLET PO (09:10)
[2020-04-30] MEDS: DULoxetine HCl 60 MG CAPSULE.DR PO (09:10)
[2020-04-30] MEDS: modafiniL 100 MG TABLET PO (09:10)
[2020-04-30] MEDS: Divalproex Sodium ER 500 MG TAB.ER.24H PO (09:10)
--- NOTE | 2020-04-30 11:12 | MHC.CM.PN ---
CM met with pt who reports she would like to go to [facility]. She reports she wants to be near home even though she knows she is not allowed to have visitors. pt reports she does not know if she will be able to go home with O2 ever because of her insurance and says she spoke to someone yesterday who told her she did not qualify for any state funded insurance. Pt reports she would rather go home but her insurance would not cover O2 or Bipap. CM discussed adding medicare B/C to her current coverage or choosing a medicare advantage plan so that she will be able to get DME coverage. Referral sent to [facility] per pts request.
[2020-04-30] MEDS: Acetaminophen 325 MG TABLET 650 MG PO (13:04)
--- NOTE | 2020-04-30 14:24 | MHC.CM.PN ---
CM informed pt that no [facility] facilities were able to offer a bed. She reports she is agreeable to going to [facility] [place] but does not know how long she will hav e to be there or what she will need to do to get her insurance changed and have coverage for the oxygen she needs at home. CM informed pt that there will be a social work msw at the [facility] that will be available to assist with this. CM also suggested contacting the [facility] department when it reopens. pt will DC to [facility] [place] today at 1630 hours via [facility] chair van
--- NOTE | 2020-04-30 15:10 | PM.DS ---
DS: Providers Provider Date of admission: 04/21/20 21:00 Primary care physician: Cassandra Oconnor MD Consults: 04/25/20 08:31 Consult to Infectious Diseases Stat Consulting Provider: Alison Jonas Reason for consultation: ROSS ZEYAD ORDER 04/27/20 08:30 Consult to Pulmonology Routine Consulting Provider: [facility] Pulmonology Services Reason for consultation: Evaluation of hypoxic hypercapnic RF, eval need bipap, pul. rehab plan DS: Diagnosis Discharge Diagnosis (1) Acute respiratory failure with hypoxia and hypercarbia: Status: Acute (2) COPD exacerbation: Status: Acute (3) Pneumonia: Status: Acute (4) Acute on chronic diastolic CHF (congestive heart failure): Status: Acute (5) Bipolar disorder: Status: Acute (6) Sleep disorder: Status: Acute (7) Restless legs syndrome (RLS): Status: Acute DS: Medications Discharge Medications Home Medications: Home Medications Medication Instructions Recorded Confirmed Incruse Ellipta 1 inh INHALATION DAILY 04/21/20 04/22/20 amitriptyline 1 tab PO BEDTIME 04/21/20 04/21/20 amlodipine 1 tab PO DAILY 04/21/20 04/21/20 aspirin 1 tab PO DAILY 04/21/20 04/21/20 diphenhydramine HCl [Banophen] 1 - 2 tab PO BEDTIME PRN 04/21/20 04/21/20 divalproex 500 mg PO DAILY 04/21/20 04/22/20 duloxetine 1 cap PO DAILY 04/21/20 04/21/20 fenofibrate nanocrystallized 1 tab PO DAILY 04/21/20 04/21/20 omeprazole 20 mg PO DAILY 04/21/20 04/22/20 Previous Rx's Medication Instructions Recorded albuterol sulfate 2 puff INHALATION Q4-6H PRN #8.5 g 04/30/20 carvedilol 12.5 mg PO BID #60 tab 04/30/20 clonazepam 1 tab PO BID PRN #0 tab 04/30/20 fluticasone furoate-vilanterol 1 ea INHALATION RDAILY #60 ea 04/30/20 [Breo Ellipta] modafinil [Provigil] 100 mg PO DAILY #30 tab 04/30/20 oxycodone-acetaminophen 1 tab PO QID PRN #0 tab 04/30/20 prednisone See Taper PO DAILY #18 tab 04/30/20 DS: Summary Hospital Course Hospital Course: Admission note HPI Patient is a 54-year-old female with a past medical history of COPD, not on home oxygen, HTN, coronary artery disease and Bipolar 1 c/o 1 month of SOB. According to the emergency department, she stated she used inhalers with no relief. 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 labs revealed slightly elevated WBC at 11.9, ABG 7.13/105/80/34/93.2 base excess of 2.0 on 2L O2. serum carbon dioxide 34, BNP 575, COVID, FLU and RSV were all negative. CXR showed interstitial edema, venous US negative. Patient was placed on BiPAP shortly before my arrival to do a bedside exam. At my bedside exam, the patient was extremely fatigued, was arousable and able to answer some questions. she endorses shortness of breath, dry cough, lethargy, mild chest pain, nausea. she denies fever, chills, abdominal pain or diarrhea and is unsure if she has had a COVID + contact. ICU course by Dr. Coto 54-year-old morbidly obese lady with presentation of acute on chronic hypercarbic and hypoxic respiratory failure with altered mental status which has significantly improved she was on an excessive amount of divalproex extended release and I reduced it to once daily at 500 mg I reduced the amount of clonazepam to 0.5 mg q.h.s. along with her 25 mg of amitriptyline and I have reduced the frequency and dose of her chronic oxycodone because of her persistent bradypnea clearly has untreated obstructive sleep apnea and initially was around the clock on BiPAP with excellent tidal volume and now only requires nocturnal BiPAP and little by little she is nearing her chronic pCO2 level which is in the mid 60s and today's was 74 and this was on nasal high-flow at 40 liters/minute and she is able to eat her 3 meals a day she is out of bed into a chair and the only thing lacking is consultation from Pulmonary with outpatient follow-up and arrangement for qualification for a home BiPAP we never had CT scan indication of lower respiratory tract infection but there was a question of asthmatic bronchitis given her initial presentation and she no longer has status asthmaticus that is long since resolved underlying bipolar Hospital course The patient was continue on treatment with steroids, BiPAP and bronchodilators with fair response. She continue to require 3 L of oxygen all the time to maintain her sats. She was qualified for CPAP machine during the hospital stay. for insurance problem patient will not be able to get the machines CPAP, nebulizer, home oxygen at this point. Plan to discharge her to SNF and tilt she can get the equipments at home. and decision was to discharge her to rehab facility to do physical therapy and continue treatment with CPAP. Metoprolol was changed to carvedilol during the hospital stay. To discuss be discharged on that. Her valproic acid was decreased total of 1500 a day to 500 daily. New medications printed as below Will need to follow-up with outpatient pulmonology for further evaluation and treatment Time Spent with Patient Time attestation: Total time spent providing and/or coordinating discharge services: Physical Exam Vital Signs: Vital Signs: Last Vital Signs Temp 99.1 F 04/30/20 11:05 Pulse 79 04/30/20 11:05 Resp 20 04/30/20 11:05 BP 130/60 04/30/20 11:05 Pulse Ox 95 04/30/20 11:05 Body Mass Index 37.6 Constitutional : Alert, oriented, not in distress Neck : Normal inspection, Supple Cardiovascular : RRR, S1 S2, no lower extremity edema Respiratory : fair bilateral air entry, mild basal crackles, fine scattered wheezes or rhonchi Gastrointestinal: soft, lax, Normal bowel sounds, Non tender Skin : Warm/Dry, No rash Neurological : Alert & oriented x3, No focal deficit DS: Data Data Completed and Pending Labs on day of discharge: 04/21/20 CT chest wo con Stat 04/21/20 17:31 ECG 12 lead EKG Stat 04/21/20 17:33 EKG Documentation DIRECTED 04/21/20 17:36 Albuterol Sulfate [Ventolin] 4 puff INHALE ONCE ONE methylPREDNISolone Sod Succ/PF [SOLU-MedroL] 125 mg IVPUSH ONCE ONE 04/21/20 17:42 IV insert/maintain ONCE 04/21/20 17:51 XR chest 1V Stat 04/21/20 18:03 B Type Natriuretic Peptide Stat Basic Metabolic Panel Stat Complete Blood Count Auto Diff Stat D Dimer Stat SARS-CoV2/FLU/RSV Stat Troponin-I High Sensitivity Stat 04/21/20 18:11 Doxycycline Hyclate [Vibramycin] 100 mg 0.9 % Sodium Chloride [Ns] 250 ml IV ONCE venous duplex LE BI Stat 04/21/20 18:17 Doxycycline Hyclate [Vibramycin] 100 mg IV .STK-MED ONE 04/21/20 18:30 Lactic Acid Stat pH VBG Stat 04/21/20 18:45 Blood Culture X2 [BC] Stat 04/21/20 19:35 Arterial Blood Gas Routine 04/21/20 21:13 LORazepam [Ativan] 0.5 mg IVPUSH ONCE ONE 04/21/20 21:15 levoFLOXacin/D5W [Levaquin] 750 mg in 150 ml IV Q24H 04/21/20 21:27 Furosemide [Lasix] 20 mg IVPUSH ONCE ONE 04/21/20 22:30 methylPREDNISolone Sod Succ/PF [SOLU-MedroL] 80 mg IVPUSH Q8H 04/21/20 22:35 Albuterol Sulfate (0.083%) [Ventolin (0.083%)] 2.5 mg INHALE RQ4H PRN 04/22/20 00:00 Albuterol/Iprat 2.5/0.5MG 3 ML [Duoneb] 3 ml INHALE RQ4H 04/22/20 00:21 Venous Blood Gas Stat 04/22/20 01:07 Furosemide [Lasix] 20 mg IVPUSH ONCE ONE 04/22/20 05:39 B Type Natriuretic Peptide Routine Basic Metabolic Panel Routine Complete Blood Count Auto Diff Routine Magnesium Routine Phosphorus Routine SLIDE REVIEW Routine Venous Blood Gas Routine 04/22/20 06:52 Magnesium Sulfate/H2O 2 gm in 50 ml IV ONCE 04/22/20 07:05 oxyCODONE HCl Immed Release [Roxicodone] 10 mg PO 5XD PRN 04/22/20 08:05 High Flow CONT 04/22/20 09:00 Divalproex Sodium ER [Depakote ER] 500 mg PO TID Pregabalin [Lyrica] 25 mg PO BID atenoloL [Tenormin] 50 mg PO DAILY clonazePAM [KlonoPIN] 0.5 mg PO BID 04/22/20 Breakfast Regular Diet 04/22/20 10:32 Arterial Blood Gas Routine 04/23/20 05:28 B Type Natriuretic Peptide Routine Basic Metabolic Panel Routine Complete Blood Count Auto Diff Routine Magnesium Routine Phosphorus Routine Venous Blood Gas Routine 04/23/20 09:50 Arterial Blood Gas Routine 04/23/20 13:45 Arterial Blood Gas Routine 04/23/20 16:00 CA echo transthorac w con Routine 04/23/20 16:08 Perflutren Lipid Microspheres [Definity] 2.2 mg IVPUSH .STK-MED ONE 04/23/20 22:33 Furosemide [Lasix] 10 mg IVPUSH ONCE ONE 04/24/20 05:28 B Type Natriuretic Peptide Routine Basic Metabolic Panel Routine Complete Blood Count Auto Diff Routine Magnesium Routine Phosphorus Routine SLIDE REVIEW Routine Venous Blood Gas Routine 04/24/20 09:30 Spironolactone [Aldactone] 12.5 mg PO DAILY acetaZOLAMIDE [Diamox] 250 mg PO DAILY 04/24/20 10:21 Arterial Blood Gas Routine 04/24/20 11:04 Ammonia Stat 04/24/20 16:41 oxyCODONE HCl Immed Release [Roxicodone] 10 mg PO Q6H PRN 04/24/20 21:00 Pregabalin [Lyrica] 50 mg PO BID clonazePAM [KlonoPIN] 0.5 mg PO BEDTIME 04/25/20 CT angio chest PE protocol Stat 04/25/20 05:33 Basic Metabolic Panel Routine Complete Blood Count Auto Diff Routine Magnesium Routine Phosphorus Routine SLIDE REVIEW Routine Venous Blood Gas Routine 04/25/20 07:45 Meropenem 1 gm 0.9 % Sodium Chloride [Ns] 100 ml IV Q8H 04/25/20 08:00 vancomycin HCL 1,000 mg 0.9 % Sodium Chloride [Ns] 250 ml IV Q12H 04/25/20 08:16 Meropenem 1 gm IV .STK-MED ONE 04/25/20 08:52 vancomycin HCL 1,000 mg .ROUTE .STK-MED ONE 04/25/20 10:20 iohexoL 350 MG/ML [Omnipaque 350 MG/ML] 100 ml IV ONCE ONE 04/25/20 14:33 Meropenem 1 gm IV .STK-MED ONE 04/25/20 14:55 Doxycycline Hyclate [Vibramycin] 100 mg IV .STK-MED ONE 04/25/20 15:15 MRSA Nasal Screen Routine 04/25/20 20:52 vancomycin HCL 1,000 mg .ROUTE .STK-MED ONE 04/25/20 22:50 Chlorhexidine Gluc Oral Rinse [Peridex] 15 ml BUCCAL TID 04/26/20 03:17 Doxycycline Hyclate [Vibramycin] 100 mg IV .STK-MED ONE 04/26/20 04:40 Venous Blood Gas Routine 04/26/20 04:45 B Type Natriuretic Peptide Routine Basic Metabolic Panel Routine Complete Blood Count Auto Diff Routine D Dimer Stat Magnesium Routine Phosphorus Routine 04/26/20 06:30 Pantoprazole Sodium [Protonix] 40 mg IVPUSH DAILY@0630 04/26/20 08:35 vancomycin HCL 1,000 mg .ROUTE .STK-MED ONE 04/26/20 09:37 vancomycin HCL 1,000 mg .ROUTE .STK-MED ONE 04/26/20 14:45 Arterial Blood Gas Routine 04/26/20 15:20 Doxycycline Hyclate [Vibramycin] 100 mg IV .STK-MED ONE 04/26/20 15:56 Transfer Order Routine 04/27/20 02:02 Doxycycline Hyclate [Vibramycin] 100 mg IV .STK-MED ONE 04/27/20 16:00 Doxycycline Hyclate [Vibramycin] 100 mg IV .STK-MED ONE 04/27/20 16:08 clonazePAM [KlonoPIN] 0.5 mg PO ONCE ONE 04/28/20 02:45 Doxycycline Hyclate [Vibramycin] 100 mg IV .STK-MED ONE 04/28/20 05:36 Basic Metabolic Panel DAILY@0600 Complete Blood Count no Diff DAILY@0600 04/28/20 06:35 Arterial Blood Gas Routine 04/28/20 10:37 Furosemide [Lasix] 20 mg IVPUSH ONCE ONE Milk of Magnesia [Mom] 15 ml PO ONCE ONE 04/28/20 16:07 Doxycycline Hyclate [Vibramycin] 100 mg IV .STK-MED ONE 04/28/20 17:20 clonazePAM [KlonoPIN] 0.5 mg PO ONCE ONE 04/29/20 03:53 Doxycycline Hyclate [Vibramycin] 100 mg IV .STK-MED ONE 04/29/20 05:34 Basic Metabolic Panel DAILY@0600 Complete Blood Count no Diff DAILY@0600 Valproate Routine 04/29/20 05:41 Arterial Blood Gas Routine 04/29/20 07:15 Omeprazole [PriLOSEC] 20 mg PO DAILY@0630 04/29/20 13:21 clonazePAM [KlonoPIN] 0.5 mg PO ONCE ONE 04/29/20 14:30 Doxycycline Hyclate [Vibramycin] 100 mg IV .STK-MED ONE 04/29/20 19:05 COVID-19 ID NOW (Sy) Routine 04/29/20 23:59 clonazePAM [KlonoPIN] 0.5 mg PO ONCE ONE 04/30/20 04:10 Doxycycline Hyclate [Vibramycin] 100 mg IV .STK-MED ONE 04/30/20 11:32 clonazePAM [KlonoPIN] 0.5 mg PO ONCE ONE Laboratory Last Values WBC 12.6 X10*3/uL (4.8-10.8) H 04/29/20 05:34 RBC 4.37 X10*6/uL (4.20-5.50) 04/29/20 05:34 Hgb 11.7 g/dl (12.0-16.0) L 04/29/20 05:34 Hct 39.0 % (37-47) 04/29/20 05:34 MCV 89.2 fL (80-98) 04/29/20 05:34 MCH 26.8 pg (27.0-33.0) L 04/29/20 05:34 MCHC 30.0 g/dl (31.0-35.0) L 04/29/20 05:34 RDW 14.3 % (11.0-16.0) 04/29/20 05:34 Plt Count 278 X10*3/uL (160-400) 04/29/20 05:34 MPV 9.9 fL (9.4-12.3) 04/29/20 05:34 Immature Gran % (Auto) 0.8 % (0.0-0.4) H 04/26/20 04:45 Neut % (Auto) 79.0 % (45-73) H 04/26/20 04:45 Lymph % (Auto) 10.6 % (20-40) L 04/26/20 04:45 [place] % (Auto) 9.5 % (2-11) 11/22/20 04:45 Eos % (Auto) 0.0 % (0-4) 04/26/20 04:45 Baso % (Auto) 0.1 % (0-2) 04/26/20 04:45 Lymph # (Auto) 1.4 X10*3/uL (1.2-4.9) 04/26/20 04:45 [place] # (Auto) 1.3 X10*3/uL (0.1-1.2) H 04/26/20 04:45 Eos # (Auto) 0.0 X10*3/uL (0.0-0.4) 04/26/20 04:45 Baso # (Auto) 0.0 X10*3/uL (0.0-0.2) 04/26/20 04:45 Abs Immat Gran (auto) 0.11 X10*3/uL (0.00-0.03) H 04/26/20 04:45 Absolute Neuts (auto) 10.7 X10*3/uL (2.0-8.3) H 04/26/20 04:45 Absolute Nucleated RBC 0.000 X10*3/uL (0.0-0.012) 04/29/20 05:34 Nucleated RBC % (auto) 0.0 /100WBC (0.0-0.2) 04/29/20 05:34 Smear Tech's Comments VERIFIED 04/25/20 05:33 D-Dimer 202 NG/ML 04/26/20 04:45 ABG pH 7.35 (7.35-7.45) 04/29/20 05:41 ABG pCO2 72 mmhg (32-45) H* 04/29/20 05:41 ABG pO2 75 mmhg (83-108) L 04/29/20 05:41 ABG HCO3 39 mmol/l (22-26) H 04/29/20 05:41 ABG O2 Saturation 94.0 % 04/29/20 05:41 ABG Base Excess 10.5 04/29/20 05:41 VBG pH 7.30 (7.32-7.43) L 04/26/20 04:40 VBG pCO2 82 mmhg 04/26/20 04:40 VBG pO2 136 mmhg 04/26/20 04:40 VBG HCO3 39 mmol/L 04/26/20 04:40 VBG O2 Saturation 98.5 % 04/26/20 04:40 VBG Base Excess 9.4 mmol/L 04/26/20 04:40 Oxygen Given 3 L 04/29/20 05:41 Sodium 142 mmol/L (135-145) 04/29/20 05:34 Potassium 3.6 mmol/l (3.3-5.1) 04/29/20 05:34 Chloride 96 mmol/L (96-108) 04/29/20 05:34 Carbon Dioxide 37 mmol/L (22-29) H 04/29/20 05:34 Anion Gap 13 (12-20) 04/29/20 05:34 BUN 24 mg/dL (9-16) H 04/29/20 05:34 Creatinine 0.77 mg/dL (0.5-1.4) 04/29/20 05:34 Estim Creat Clear Calc 93.4 04/29/20 05:34 Estimated GFR > 60 04/29/20 05:34 Random Glucose 67 mg/dL (60-115) 04/29/20 05:34 Lactic Acid 0.8 mmol/L (0.5-2.0) 04/21/20 18:30 Calcium 7.9 mg/dL (8.4-10.2) L 04/29/20 05:34 Phosphorus 4.0 mg/dL (2.7-4.5) 04/26/20 04:45 Magnesium 2.0 mg/dL (1.6-2.6) 04/26/20 04:45 Ammonia 41 umol/L (13-55) 04/24/20 11:04 Troponin I High Sens 14.1 ng/L (<3.5-17.0) 04/21/20 18:03 B-Natriuretic Peptide 89 pg/mL (<100) 04/26/20 04:45 Urine Color YELLOW 04/22/20 11:47 Urine Appearance HAZY 04/22/20 11:47 Urine pH 6.5 (5.0-8.0) 04/22/20 11:47 Ur Specific Sebastian >= 1.030 (1.005-1.025) H 04/22/20 11:47 Urine Protein 2+ MG/DL (NEG-TRACE) H 04/22/20 11:47 Urine Glucose (UA) NEG MG/DL (NEG) 04/22/20 11:47 Urine Ketones NEG MG/DL (NEG) 04/22/20 11:47 Urine Blood 1+ (NEG) H 04/22/20 11:47 Urine Nitrite NEG (NEG) 04/22/20 11:47 Ur Leukocyte Esterase NEG (NEG) 04/22/20 11:47 Urine RBC 15-29 /HPF (0) H 04/22/20 11:47 Urine WBC 0-2 /HPF (0-4) 04/22/20 11:47 Ur Squamous Epith Cells NONE /LPF 04/22/20 11:47 Urine Bacteria NONE /LPF 04/22/20 11:47 Urine Mucus 1+ /LPF 04/22/20 11:47 Nasal Screen MRSA (PCR) NEGATIVE (Negative) 04/25/20 15:15 Nasal S. aureus Screen NEGATIVE (Negative) 04/25/20 15:15 Nasal MRSA/S.aureus Interp SEE NOTE 04/25/20 15:15 Valproic Acid 8.8 mcg/mL (50.0-100.0) L 04/29/20 05:34 Coronavirus (PCR) NEGATIVE (Negative) 04/21/20 18:03 COVID-19 (ANA) Negative (Negative) 04/29/20 19:05 COVID-19 Clin Com See Note 04/29/20 19:05 Influenza Type A (PCR) NEGATIVE (Negative) 04/21/20 18:03 Influenza Type B (PCR) NEGATIVE (Negative) 04/21/20 18:03 RSV RNA Qual (PCR) NEGATIVE (Negative) 04/21/20 18:03 Ur Strep pneumoniae Ag Not Detected (Not Detected) 04/25/20 15:15 Discharge Plan Discharge Patient Disposition: Xfer SNF Referrals: [facility] [place] [Outside] Cassandra Oconnor MD [Primary Care Provider] - Discharge Medications: New carvedilol 12.5 mg Tablet 12.5 mg PO BID Qty: 60 RF: 0 modafinil [Provigil] 100 mg Tablet 100 mg PO DAILY Qty: 30 RF: 1 Breo Ellipta 100-25 mcg/dose Blister With Device 1 ea inhalation RDAILY Qty: 60 RF: 0 albuterol sulfate 90 mcg/actuation HFA aerosol inhaler 2 puff inhalation Q4-6H PRN (Reason: shortness of breath or wheezing) Qty: 8.5 RF: 0 prednisone 10 mg tablet See Taper mg PO DAILY Qty: 18 RF: 0 Continued aspirin 81 mg tablet,delayed release (DR/EC) 1 tab PO DAILY RF: 0 amitriptyline 25 mg tablet 1 tab PO BEDTIME RF: 0 amlodipine 10 mg tablet 1 tab PO DAILY RF: 0 diphenhydramine HCl [Banophen] 25 mg tablet 1 - 2 tab PO BEDTIME PRN (Reason: Pain) RF: 0 divalproex 500 mg tablet extended release 24 hr 500 mg PO DAILY RF: 0 omeprazole 20 mg capsule,delayed release(DR/EC) 20 mg PO DAILY RF: 0 duloxetine 60 mg capsule,delayed release(DR/EC) 1 cap PO DAILY RF: 0 fenofibrate nanocrystallized 48 mg tablet 1 tab PO DAILY RF: 0 Incruse Ellipta 62.5 mcg/actuation blister with device 1 inh inhalation DAILY RF: 0 Changed clonazepam 0.5 mg tablet 1 tab PO BID PRN (Reason: Anxiety) Qty: 0 RF: 0 oxycodone-acetaminophen 10-325 mg tablet 1 tab PO QID PRN (Reason: pain) Qty: 0 RF: 0 Discontinued atenolol 50 mg tablet 1 tab PO DAILY RF: 0 divalproex 500 mg tablet extended release 24 hr 1,000 mg PO BEDTIME RF: 0 Discharge Orders: Discharge Order (Routine); Ordered 04/30/20 Ordered By: Zac Marques Diet: advance to usual diet Activity on Discharge: As tolerated Other Ambulatory Orders: Basic Metabolic Panel (Routine) Timeframe: 1 Week Facility: [facility] - Location: Laboratory Ordered By: Zac Marques Visit Report Forms: Patient Portal Discharge page Care Plan Goals: Read below Health Concerns: Read below Plan of Treatment: You were admitted to the hospital for changes in your mental status and difficulty breathing. You were admitted directly to the ICU with BiPAP fair response as part of your medications were decreased on stopped. Your respiratory status did improve within 5 days of treatment ICU and transferred to the medical floor where you continue treatment with nebulizers, steroids, oxygen supplement and BiPAP. You were also noted to have fluid overload requiring treatment with water pills with good response. To use CPAP at night time To wean oxygen down as tolerated Continue prednisone as prescribed To repeat blood test next week To follow-up with Dr. Kaba from pulmonology as outpatient for further evaluation and treatment
[2020-05-05 05:32] LABS: Legionella Ag Urine Not Detected (Not Detected)
== END 2020-04-30 16:30 | disposition skilled nursing facility (03) | DRG 190 ==
LOC: HO.ED 21:04 → HO.ICU 21:16 → HO.IMC 04-26 16:36
PROVIDERS: Internal Medicine; Physician Assistant; Physician Assistant Medical; Admitting Provider Internal Medicine Cardiovascular Disease; Emergency Provider Emergency Medicine; PCP Internal Medicine; Visit Provider Student in an Organized Health Care Education/Training Program
DX: J44.0 Chronic obstructive pulmonary disease with (acute) lower respiratory infection (principal); J18.9 Pneumonia, unspecified organism; I50.33 Acute on chronic diastolic (congestive) heart failure; J96.22 Acute and chronic respiratory failure with hypercapnia; J96.21 Acute and chronic respiratory failure with hypoxia; J44.1 Chronic obstructive pulmonary disease with (acute) exacerbation; F31.9 Bipolar disorder, unspecified; G89.29 Other chronic pain; Z68.37 Body mass index [BMI] 37.0-37.9, adult; E66.01 Morbid (severe) obesity due to excess calories; G62.9 Polyneuropathy, unspecified; G25.81 Restless legs syndrome; Z20.828 Contact with and (suspected) exposure to other viral communicable diseases; Z88.0 Allergy status to penicillin; Z79.82 Long term (current) use of aspirin; Z79.52 Long term (current) use of systemic steroids; Z79.899 Other long term (current) drug therapy
CPT/HCPCS: 0241U; 36415; 36600; 71045; 71250; 71275; 80048; 80164; 81001; 82140; 82800; 82803; 83605; 83735; 83880; 84100; 84484; 85025; 85027; 85379; 87040; 87449; 87635; 87640; 87641; 87899; 93005; 93306; 93970; 94640; 94660; 96365; 96372; 96375; 97110; 97116; 97162; 97530; 99284; 99285; J1940; J1956; J2060; J2185; J2930; J3370; J3475; Q9967

== ENCOUNTER 2020-05-26 13:12 | Inpatient (IN) | payer MEDICARE, OTHER, SELFPAY ==
[2020-05-26 13:15] VITALS: PULSE 91; RESP 16; TEMP 37.1; O2SAT 85; BMI 35.6
--- NOTE | 2020-05-26 13:33 | ECG_ITS ---
Test Reason : SOB Blood Pressure : / mmHG Vent. Rate : 079 BPM Atrial Rate : 079 BPM P-R Int : 156 ms QRS Dur : 090 ms QT Int : 400 ms P-R-T Axes : 053 042 035 degrees QTc Int : 458 ms Normal sinus rhythm Normal ECG When compared with ECG of 21-APR-2020 18:17, No significant change was found Referred By: Sun Rendon Electronically Signed By:TRELL HERNANDEZ MD
--- NOTE | 2020-05-26 13:33 | XR_ITS ---
EXAMINATION: XR CHEST CLINICAL INFORMATION: SOB. COMPARISON: Comparison the 04/21/2020 TECHNIQUE: Frontal view of the chest was obtained. FINDINGS: The lungs are well-expanded with patchy density right upper lobe likely developing infiltrate. Rest of lungs are somewhat expanded and clear. There is increased perihilar vascular markings. The heart size is normal. No gross bony abnormality. XR/XR chest 1V IMPRESSION: Suspect developing infiltrate right upper lobe. Increased vascular markings both lungs, question mild interstitial edema or vascular congestion. Similar findings were seen on the previous study 04/21/2020
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
--- NOTE | 2020-05-26 13:50 | XR_ITS ---
EXAMINATION: RIGHT ELBOW, RIGHT SHOULDER CLINICAL INFORMATION: Trauma with elbow and shoulder pain COMPARISON: None TECHNIQUE: 3 views right elbow, 3 views right shoulder FINDINGS: Elbow: No bone joint or soft tissue abnormality is seen. Shoulder: Mild degenerative changes of the shoulder in the inferior aspect of the glenohumeral joint. In addition, osteophytes are present arising from the greater tuberosity sometimes indicative of rotator cuff disease. No fractures are seen. Again seen is an infiltrate in the right upper lobe better characterized on the chest radiograph, same day. XR/XR elbow RT 2V IMPRESSION: No evidence of an acute injury
--- NOTE | 2020-05-26 13:50 | XR_ITS ---
EXAMINATION: RIGHT ELBOW, RIGHT SHOULDER CLINICAL INFORMATION: Trauma with elbow and shoulder pain COMPARISON: None TECHNIQUE: 3 views right elbow, 3 views right shoulder FINDINGS: Elbow: No bone joint or soft tissue abnormality is seen. Shoulder: Mild degenerative changes of the shoulder in the inferior aspect of the glenohumeral joint. In addition, osteophytes are present arising from the greater tuberosity sometimes indicative of rotator cuff disease. No fractures are seen. Again seen is an infiltrate in the right upper lobe better characterized on the chest radiograph, same day. XR/XR shoulder RT min 2V IMPRESSION: No evidence of an acute injury
[2020-05-26 14:03] VITALS: BP 135/60; PULSE 78; RESP 16; O2SAT 94
[2020-05-26 14:12] LABS: MANUAL DIFF FLAG NO
[2020-05-26 14:15] LABS: Basophils Percent Auto 0.2 % (0-2); Eosinophils Percent Auto 0.1 % (0-4); Hematocrit 36.3 % (37-47); Hemoglobin 11.2 g/dl (12.0-16.0); Imm Gran Abs Auto 0.12 X10*3/uL (0.00-0.03); Imm Gran Pct Auto 1.4 % (0.0-0.4); Lymphocytes Absolute Auto 2.3 X10*3/uL (1.2-4.9); Lymphocytes Percent Auto 26.8 % (20-40); Mean Corpuscular HGB Conc 30.9 g/dl (31.0-35.0); Mean Corpuscular Hemoglobin 27.3 pg (27.0-33.0); Mean Corpuscular Volume 88.5 fL (80-98); Mean Platelet Volume 9.1 fL (9.4-12.3); Monocytes Absolute Auto 0.8 X10*3/uL (0.1-1.2); Monocytes Percent Auto 8.6 % (2-11); NRBC Pct Auto 0.3 /100WBC (0.0-0.2); Neutrophils Absolute Auto 5.5 X10*3/uL (2.0-8.3); Neutrophils Percent Auto 62.9 % (45-73); Platelet Count 439 X10*3/uL (160-400); White Blood Count 8.7 X10*3/uL (4.8-10.8)
[2020-05-26 14:16] LABS: Prothrombin Time 11.9 SEC (10.8-13.0)
[2020-05-26 14:27] LABS: Lactic Acid 1.2 mmol/L (0.5-2.0)
[2020-05-26] MEDS: cefEPime HCl 2 GM in 0.9 % Sodium Chloride 50 ML IV (14:37)
[2020-05-26 14:38] LABS: Troponin-I High Sensitivity 6.4 ng/L (<3.5-17.0)
[2020-05-26 14:46] LABS: Anion Gap 9 (12-20); Blood Urea Nitrogen 6 mg/dL (9-16); Calcium 7.7 mg/dL (8.4-10.2); Carbon Dioxide 32 mmol/L (22-29); Chloride 104 mmol/L (96-108); Creatinine Clr Calc Pharmacy 85.3; Estimated Glomerular Filt Rate > 60; Glucose Random 100 mg/dL (60-115); Magnesium 1.4 mg/dL (1.6-2.6); Potassium 3.2 mmol/l (3.3-5.1); Sodium 142 mmol/L (135-145)
[2020-05-26] MEDS: Magnesium Sulfate/D5W 1 GM/100 ML PIGGYBACK IV (15:04)
[2020-05-26] MEDS: Azithromycin 500 MG in 0.9 % Sodium Chloride 250 ML 125 MG IV (15:04)
--- NOTE | 2020-05-26 15:24 | MHC.CM.ED ---
Patient came to ER due to shortness of breath. Patient was discharged to [facility] at [facility]. She was discharged home with [facility] on 05/15. On 05/16, [facility] called patient to report a positive Covid test. Copy of discharge summary and last Covid results obtained at [facility] CAT SCAN TECH request. Continue to monitor for d/c needs.
[2020-05-26 15:35] LABS: B Type Natriuretic Peptide 106 pg/mL (<100)
[2020-05-26 15:40] LABS: COVID-19 Test Negative (Negative)
[2020-05-26] MEDS: Potassium Chloride ER 20 MEQ TAB.ER.PRT 30 MEQ PO (16:00)
--- NOTE | 2020-05-26 18:24 | PM.EVENT ---
Event Note Date of Service: 05/28/20 Event Note: Patient came to the hospital she was recently in the rehab after the admission are as recently transferred : 54-year-old female with a past medical history of COPD, hypertension, coronary disease, bipolar disease here with shortness of breath worsening over the last 2-3 days. patient was admitted around a month back - acute respiratory failure requiring noninvasive ventilation, COPD exacerbation, pneumonia. [facility] patient says that there was insurance issues and she was supposed to be discharged home on oxygen but her insurance would not cover this. She was sent home with a CPAP machine but it was not working when she got home. She has been home from the short-term rehab since 05/14. As per rehab recommendation on 05/14: COVID positive She has acute on chronic shortness of breath for the last few days. Shortness of breath both at rest and with exertion. Chronic cough unchanged. No chest pain, leg pain or swelling. No fevers, chills or body aches Physical exam: Cvs: rrr, [id number] , no murmur res: Grossly fair air entry, slightly diminished at bases abd: no rebound or guarding ,nt, bs present. ext pulses present , no cyanosis neuro: axo3 , nonfocal. Assessment and plan coordinated in H&P note apc Agree with the plan Pneumonia Continue IV antibiotics,? Question possible had recent COVID test positive, even though COVID test is negative here will isolate until evaluated by ID Hypomagnesemia and hypokalemia repleted Please start basic setting CPAP
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
[2020-05-26 19:25] VITALS: BP 117/86; PULSE 78; RESP 18; TEMP 36.6; O2SAT 95
[2020-05-26 20:00] VITALS: BP 117/86; PULSE 78; RESP 16; TEMP 36.7; O2SAT 93
[2020-05-26 20:47] LABS: Troponin-I High Sensitivity 6.9 ng/L (<3.5-17.0)
[2020-05-26 21:10] VITALS: BP 117/86; PULSE 78
[2020-05-26] MEDS: Piperacillin Sodium/Tazobactam 3.375 GM in 0.9 % Sodium Chloride 50 ML IV (21:10)
[2020-05-26] MEDS: hydrALAZINE HCl 50 MG TABLET PO (21:10)
[2020-05-26] MEDS: clonazePAM 0.5 MG TABLET PO (21:10)
[2020-05-26] MEDS: Amitriptyline HCl 25 MG TABLET PO (21:10)
[2020-05-26] MEDS: Divalproex Sodium ER 500 MG TAB.ER.24H 1000 MG PO (21:10)
[2020-05-26] MEDS: oxyCODONE HCl Immed Release 5 MG TABLET 10 MG PO (21:13)
[2020-05-26] MEDS: Enoxaparin Sodium 40 MG/0.4 ML SYRINGE SUBCUT (22:05)
[2020-05-26] MEDS: vancomycin HCL 1,000 MG in 0.9 % Sodium Chloride 250 ML 270 MG IV (22:05)
[2020-05-26] MEDS: 0.9 % Sodium Chloride Flush 3 ML SYRINGE IVFLUSH (22:21)
[2020-05-26 23:44] VITALS: PULSE 76; RESP 20; O2SAT 91
[2020-05-27] VITALS (11 sets, daily range): BP systolic 100–157; BP diastolic 55–82; PULSE 78–91; RESP 18; TEMP 36.6–37.1; O2SAT 91–96; BMI 35.6
[2020-05-27] MEDS: oxyCODONE HCl Immed Release 5 MG TABLET 10 MG PO ×4 (01:50→21:40)
[2020-05-27] MEDS: Piperacillin Sodium/Tazobactam 3.375 GM in 0.9 % Sodium Chloride 50 ML IV ×2 (03:05→09:46)
[2020-05-27] MEDS: Omeprazole 20 MG CAPSULE.DR PO ×2 (05:51→17:36)
[2020-05-27 07:07] LABS: MANUAL DIFF FLAG NO
[2020-05-27 07:11] LABS: Basophils Percent Auto 0.1 % (0-2); Eosinophils Percent Auto 0.4 % (0-4); Hematocrit 36.3 % (37-47); Imm Gran Abs Auto 0.13 X10*3/uL (0.00-0.03); Imm Gran Pct Auto 1.9 % (0.0-0.4); Lymphocytes Absolute Auto 2.3 X10*3/uL (1.2-4.9); Lymphocytes Percent Auto 33.9 % (20-40); Mean Corpuscular HGB Conc 30.3 g/dl (31.0-35.0); Mean Corpuscular Hemoglobin 27.4 pg (27.0-33.0); Mean Corpuscular Volume 90.3 fL (80-98); Mean Platelet Volume 9.6 fL (9.4-12.3); Monocytes Absolute Auto 0.7 X10*3/uL (0.1-1.2); Monocytes Percent Auto 9.5 % (2-11); Neutrophils Absolute Auto 3.7 X10*3/uL (2.0-8.3); Neutrophils Percent Auto 54.2 % (45-73); Platelet Count 535 X10*3/uL (160-400); Red Blood Count 4.02 X10*6/uL (4.20-5.50); Red Cell Distribution Width 16.7 % (11.0-16.0); White Blood Count 6.8 X10*3/uL (4.8-10.8)
[2020-05-27 07:41] LABS: Anion Gap 14 (12-20); Blood Urea Nitrogen 7 mg/dL (9-16); Calcium 7.6 mg/dL (8.4-10.2); Carbon Dioxide 29 mmol/L (22-29); Chloride 106 mmol/L (96-108); Creatinine Clr Calc Pharmacy 80.4; Estimated Glomerular Filt Rate > 60; Glucose Random 110 mg/dL (60-115); Potassium 3.8 mmol/l (3.3-5.1); Sodium 145 mmol/L (135-145)
[2020-05-27 07:42] LABS: Magnesium 1.9 mg/dL (1.6-2.6)
[2020-05-27 09:19] LABS: SARS COV2 IgG Positive (Negative)
[2020-05-27] MEDS: Atorvastatin Calcium 10 MG TABLET PO (09:42)
[2020-05-27] MEDS: clonazePAM 0.5 MG TABLET PO ×2 (09:42→21:41)
[2020-05-27] MEDS: hydrALAZINE HCl 50 MG TABLET PO ×3 (09:45→21:42)
[2020-05-27] MEDS: DULoxetine HCl 60 MG CAPSULE.DR PO (09:45)
[2020-05-27] MEDS: Aspirin Enteric Coated 81 MG TABLET.DR PO (09:45)
[2020-05-27] MEDS: ARIPiprazole 2 MG TABLET PO (09:45)
[2020-05-27] MEDS: amLODIPine Besylate 10 MG TABLET PO (09:45)
[2020-05-27] MEDS: Divalproex Sodium ER 500 MG TAB.ER.24H PO (09:45)
[2020-05-27] MEDS: predniSONE 20 MG TABLET 40 MG PO (09:46)
[2020-05-27] MEDS: Metoprolol Succinate ER 50 MG TAB.ER.24H PO (09:46)
[2020-05-27] MEDS: 0.9 % Sodium Chloride Flush 3 ML SYRINGE IVFLUSH ×2 (10:00→15:01)
[2020-05-27] MEDS: vancomycin HCL 1,000 MG in 0.9 % Sodium Chloride 250 ML 270 MG IV (10:51)
--- NOTE | 2020-05-27 12:03 | W.PM.IDCN ---
History of Present Illness Data of Consult Service Date: 05/27/20 Requesting physician: Alexandra Kay Primary Care Provider: MD CHRISSY Penny Reason for consult: shortness of breath She presents with shortness of breath. She has been ill since April She was hospitalized 04/21-04/30 with acute respiratory failure and on noninvasive ventilation She went to Rehab after and got COVID. Her COVID test was positive on 05/14. She has only whitish sputum She has no fever or chills. She was not able to afford oxygen at home She has oxygen saturation on 80s now and is admitted. Review of Systems Constitutional: Constitutional: Denies headache(s) and Denies weakness ENT: Denies dizziness and Denies headache(s) Musculoskeletal: Musculoskeletal: Denies numbness and Denies tingling Neurologic: Reports system reviewed and no additional complaints, except as documented, Denies Abnormal speech present, Denies dizziness, Denies headache(s), Denies numbness, Denies tingling and Denies weakness PMFSH Past Medical History Medical History Acute on chronic diastolic CHF (congestive heart failure) Back pain with history of spinal surgery Bipolar 1 disorder Bipolar disorder CAD (coronary artery disease) Chronic back pain COPD (chronic obstructive pulmonary disease) Depression Fibromyalgia High cholesterol HTN (hypertension) PTSD (post-traumatic stress disorder) Renal failure Restless legs syndrome (RLS) Sleep disorder Smoker Family History Family history: reviewed and not pertinent Surgical History Surgical History H/O: hysterectomy Social History Social History Household Members: Spouse Housing: Apartment Do you presently have visiting nurse or other home services: Yes Alcohol intake: never Smoking Status: Former smoker Smoked in Last 30 Days: No Use of substances other than those prescribed or required for medical reasons: No Have you been hit, kicked, punched, or otherwise hurt by someone within the past year? If so, by whom?: No Do you feel safe in your current relationship?: No Is there a partner from a previous relationship who is making you feel unsafe now?: No Are you made to feel afraid or neglected: No Advance Directives: No Advance Directives Information Provided: No Do you have thoughts of harming others: None Do you have a plan to hurt others: No Plan Recently lost weight without trying: No service: No Current occupational status: disabled Meds Allergies Allergy/AdvReac Type Severity Reaction Status Date / Time Penicillins Allergy Mild RASH Verified 04/21/20 17:00 venlafaxine [From Effexor] Allergy Mild RASH Verified 04/21/20 17:00 cyclobenzaprine Allergy Unknown UNKNOWN Verified 04/21/20 17:00 [Cyclobenzaprine] fentanyl [FENTANYL] Allergy Unknown HALLUCINATI Verified 04/21/20 17:00 ONS topiramate [From Topamax] Allergy Unknown UNKNOWN Verified 04/21/20 17:00 Home Medications Medication Instructions Recorded Confirmed Type amitriptyline 25 mg PO BEDTIME 04/21/20 05/26/20 History amlodipine 10 mg PO DAILY 04/21/20 05/26/20 History aspirin 81 mg PO DAILY 04/21/20 05/26/20 History diphenhydramine HCl [Banophen] 1 - 2 tab PO BEDTIME PRN 04/21/20 05/26/20 History divalproex 500 mg PO DAILY 04/21/20 05/26/20 History duloxetine 60 mg PO DAILY 04/21/20 05/26/20 History fenofibrate nanocrystallized 48 mg PO DAILY 04/21/20 05/26/20 History omeprazole 20 mg PO BID@0630,1630 04/21/20 05/26/20 History aripiprazole 2 mg PO DAILY 05/26/20 05/26/20 History atorvastatin 10 mg PO DAILY 05/26/20 05/26/20 History clonazepam 0.5 mg PO BID 05/26/20 05/26/20 History divalproex 1,000 mg PO BEDTIME 05/26/20 05/26/20 History doxycycline hyclate 100 mg PO BID 05/26/20 05/26/20 History fluticasone furoate-vilanterol 1 inh INHALATION DAILY 05/26/20 05/26/20 History [Breo Ellipta] hydralazine 50 mg PO TID 05/26/20 05/26/20 History metoprolol succinate 50 mg PO DAILY 05/26/20 05/26/20 History oxycodone-acetaminophen 1 tab PO 5XD PRN 05/26/20 05/26/20 History prednisone 40 mg PO DAILY 05/26/20 05/26/20 History umeclidinium [Incruse Ellipta] 1 inh INHALATION DAILY 05/26/20 05/26/20 History Physical Exam Vital Signs: Vital Signs: Last Vital Signs Temp 98.7 F 05/27/20 11:25 Pulse 89 05/27/20 11:25 Resp 18 05/27/20 11:25 BP 134/71 05/27/20 11:25 Pulse Ox 96 05/27/20 11:25 Body Mass Index 35.6 Const: General: cooperative; No anxious Orientation/consciousness: oriented to person, oriented to place and oriented to time HENMT: Head: Yes normal to inspection Mouth: Normal oral and palatal mucosa present Eyes: General: appearance normal, both eyes and all related structures Resp: Other: rhonchi bases Cardio: Rate: regular rate Rhythm: regular rhythm GI: Palpation (GI): nontender : General: Yes no CVA tenderness Back/Spine/Pelvis: Back: no CVA tenderness Skin: General skin exam: no rashes or lesions noted Neuro: General: oriented to person, oriented to place and oriented to time Speech: No Abnormal speech present Extrem: General: Yes normal to inspection Assessment and Plan (1) Hypoxia: Problem details: She has minimal area bases atelectasis/infiltrate This looks old and I think patient is here because she has hypoxia due to underlying lung disease and cant afford oxygen She has no signs of pneumonia such as productive sputum,leukocytosis, definite lobar pneumonia on Xray and no fever Status: Acute Would stop Vancomycin and Zosyn Doxycycline 100 mg po bid at this time for possible bronchopneumonia. There is no need for further COVID treatment/precautions Results Labs CBC & Chem 7: 05/27/20 05:49 05/27/20 05:49 Labs: Short CBC 05/26/20 05/27/20 Range/Units 14:01 05:49 WBC 8.7 6.8 (4.8-10.8) X10*3/uL Hgb 11.2 L 11.0 L (12.0-16.0) g/dl Hct 36.3 L 36.3 L (37-47) % Plt Count 439 H D 535 H (160-400) X10*3/uL BMP 05/26/20 05/27/20 14:00 05:49 Sodium 142 145 Potassium 3.2 L 3.8 Chloride 104 106 Carbon Dioxide 32 H 29 BUN 6 L D 7 L Creatinine 0.82 0.87 Calcium 7.7 L 7.6 L
[2020-05-27] MEDS: Acetaminophen 325 MG TABLET 650 MG PO ×2 (13:00→19:47)
--- NOTE | 2020-05-27 14:40 | P.PNIM_ITS ---
Subjective Subjective Date of Service: 05/27/20 Interval History: Pneumonia Review of Systems Patient still feels some shortness of breath, denies any chest pain or abdominal pain or fever or chills or cough . Physical Exam Vital Signs: Vital Signs: Last Vital Signs Temp 98.7 F 05/27/20 11:25 Pulse 89 05/27/20 11:25 Resp 18 05/27/20 11:25 BP 134/71 05/27/20 11:25 Pulse Ox 96 05/27/20 11:25 Body Mass Index 35.6 Physical exam: Constitutional: Not in acute distress. Eyes: Anicteric, no discharge Cvs: rrr, [id number] , no murmur res: Fair air entry, few scattered rhonchi right side. abd: no rebound or guarding ,nt, bs present. ext pulses present , no cyanosis neuro: axo3 , nonfocal. Objective Data Current Medications Generic Name Dose Route Start Last Admin Trade Name Freq PRN Reason Stop Dose Admin Acetaminophen 650 mg 05/26/20 19:37 05/27/20 13:00 Acetaminophen 325 Mg Tablet PO 650 mg Q6H PRN Administration Pain, Mild (Pain Scale 1-3) Albuterol Sulfate 2 puff 05/26/20 19:37 Albuterol Sulfate 90 Mcg 8 Gm Inhaler INHALE Q4H PRN shortness of breath or wheezing Amitriptyline HCl 25 mg 05/26/20 21:00 05/26/20 21:10 Amitriptyline Hcl 25 Mg Tablet PO 25 mg BEDTIME LONG Administration Amlodipine Besylate 10 mg 05/27/20 09:00 05/27/20 09:45 Amlodipine Besylate 10 Mg Tablet PO 10 mg DAILY LONG Administration Protocol Aripiprazole 2 mg 05/27/20 09:00 05/27/20 09:45 Aripiprazole 2 Mg Tablet PO 2 mg DAILY LONG Administration Aspirin 81 mg 05/27/20 09:00 05/27/20 09:45 Aspirin Enteric Coated 81 Mg Tablet.Dr PO 81 mg DAILY LONG Administration Atorvastatin Calcium 10 mg 05/27/20 09:00 05/27/20 09:42 Atorvastatin Calcium 10 Mg Tablet PO 10 mg DAILY LONG Administration Clonazepam 0.5 mg 05/26/20 21:00 05/27/20 09:42 Clonazepam 0.5 Mg Tablet PO 0.5 mg BID LONG Administration Divalproex Sodium 1,000 mg 05/26/20 21:00 05/26/20 21:10 Divalproex Sodium Er 500 Mg Tab.Er.24h PO 1,000 mg BEDTIME LONG Administration Divalproex Sodium 500 mg 05/27/20 09:00 05/27/20 09:45 Divalproex Sodium Er 500 Mg Tab.Er.24h PO 500 mg DAILY LONG Administration Doxycycline Hyclate 100 mg 05/27/20 12:30 05/27/20 13:00 Doxycycline Hyclate 100 Mg Tablet PO 100 mg Q12H LONG Administration Duloxetine HCl 60 mg 05/27/20 09:00 05/27/20 09:45 Duloxetine Hcl 60 Mg Capsule. PO 60 mg DAILY LONG Administration Enoxaparin Sodium 40 mg 05/26/20 22:00 05/26/20 22:05 Enoxaparin Sodium 40 Mg/0.4 Ml Syringe SUBCUT 40 mg Q24H [facility] Administration Fluticasone/Vilanterol 1 puff 05/27/20 08:00 05/27/20 07:36 Fluticasone/Vilanterol 100/25 Blst.W.Dev INHALE Not Given RDAILY [facility] Guaifenesin/Dextromethorphan 5 ml 05/26/20 19:37 Guaifenesin Dm 100/10/5 Ml 5 Ml Syrup PO Q6H PRN Cough Hydralazine HCl 50 mg 05/26/20 21:00 05/27/20 09:45 Hydralazine Hcl 50 Mg Tablet PO 50 mg TID [facility] Administration Protocol Metoprolol Succinate 50 mg 05/27/20 09:00 05/27/20 09:46 Metoprolol Succinate Er 50 Mg Tab.Er.24h PO 50 mg DAILY [facility] Administration Protocol Non-Formulary Medication 1 inhalation 05/27/20 09:00 Umeclidinium [Incruse Ellipta] INHALE DAILY [facility] Omeprazole 20 mg 05/27/20 06:30 05/27/20 05:51 Omeprazole 20 Mg Capsule. PO 20 mg BID@0630,1630 [facility] Administration Ondansetron HCl 4 mg 05/26/20 19:37 Ondansetron Hcl 4 Mg/2 Ml Vial IVPUSH Q8H PRN Nausea and Vomiting Oxycodone HCl 10 mg 05/26/20 19:55 05/27/20 10:50 Oxycodone Hcl Immed Release 5 Mg Tablet PO 10 mg 5XD PRN Administration Pain (Scale Score 4-6) Pharmacy Consult 1 each 05/26/20 14:13 Consult Rx Perform Med Rec MISCELLANE ONCE PRN Consult order Prednisone 40 mg 05/27/20 09:00 05/27/20 09:46 Prednisone 20 Mg Tablet PO 40 mg DAILY LONG Administration Sodium Chloride 3 ml 05/27/20 00:00 05/27/20 10:00 0.9 % Sodium Chloride Flush 3 Ml Syringe IVFLUSH 3 ml QSHIFT LONG Administration Labs CBC & Chem 7: 05/27/20 05:49 05/27/20 05:49 Assessment and Plan (1) Pneumonia: Status: Acute (2) Hypoxia: Problem details: She has minimal area bases atelectasis/infiltrate This looks old and I think patient is here because she has hypoxia due to underlying lung disease and cant afford oxygen She has no signs of pneumonia such as productive sputum,leukocytosis, definite lobar pneumonia on Xray and no fever Status: Acute Assessment and Plan: 54-year-old woman, who is being admitted with healthcare-associated pneumonia with acute hypoxic respiratory failure. 1. Acute hypoxic respiratory failure related to healthcare-associated pneumonia. Continue supplemental oxygen. continue Vancomycin, Zosyn, continue oxygen supplementation, Robitussin for cough. gwen choudhury Discussed with ID: Does not need COVID isolation since-COVID is negative on admission as well as positive for IgG. 3. Chronic obstructive pulmonary disease. Albuterol as needed. No exacerbation. 4. Hypomagnesemia and hypokalemia : Repleted and resolved. 5. Depression. Continue amitriptyline, aripiprazole, clonazepam, Depakote, duloxetine. 6. Gastroesophageal reflux disease. Continue PPI. 7. Hyperlipidemia. Continue aspirin and statin. 8. Hypertension. Stable blood pressure. Continue amlodipine, metoprolol, and DVT prophylaxis with Lovenox.
[2020-05-27] MEDS: Enoxaparin Sodium 40 MG/0.4 ML SYRINGE SUBCUT (21:40)
[2020-05-27] MEDS: Divalproex Sodium ER 500 MG TAB.ER.24H 1000 MG PO (21:41)
[2020-05-27] MEDS: Amitriptyline HCl 25 MG TABLET PO (21:41)
[2020-05-28] VITALS (15 sets, daily range): BP systolic 88–167; BP diastolic 42–80; PULSE 78–93; RESP 18; TEMP 36.3–36.7; O2SAT 90–96
[2020-05-28] MEDS: 0.9 % Sodium Chloride Flush 3 ML SYRINGE IVFLUSH ×4 (00:37→21:56)
[2020-05-28] MEDS: oxyCODONE HCl Immed Release 5 MG TABLET 10 MG PO ×4 (01:45→22:21)
[2020-05-28] MEDS: Omeprazole 20 MG CAPSULE.DR PO ×2 (05:35→15:39)
[2020-05-28] MEDS: Fluticasone/Vilanterol 100/25 BLST.W.DEV 1 PUFF INHALE (07:49)
--- NOTE | 2020-05-28 08:32 | MHC.CM.PN ---
Female DX Hypoxia HCAP Recent COVID. Patient has insurance that may not cover home O2. Respiratory was contacted to advise. Ray is calling [facility]. Financial consult will be referred if [facility] can not provide. CM will follow.
[2020-05-28 09:03] LABS: Vancomycin Trough 7.9 mcg/mL (10.0-20.0)
--- NOTE | 2020-05-28 09:11 | MHC.CM.PN ---
Respiratory therapy is working with [facility] to provide Home O2. She has recently had Covid; which may qualify her for O2 coverage. Per [facility] we will not have an answer until Monday. Notified MD via [place] text. CM will follow.
[2020-05-28] MEDS: DULoxetine HCl 60 MG CAPSULE.DR PO (09:48)
[2020-05-28] MEDS: Atorvastatin Calcium 10 MG TABLET PO (09:48)
[2020-05-28] MEDS: Aspirin Enteric Coated 81 MG TABLET.DR PO (09:49)
[2020-05-28] MEDS: ARIPiprazole 2 MG TABLET PO (09:51)
[2020-05-28] MEDS: clonazePAM 0.5 MG TABLET PO ×2 (09:51→21:55)
[2020-05-28] MEDS: Divalproex Sodium ER 500 MG TAB.ER.24H PO (09:52)
[2020-05-28] MEDS: amLODIPine Besylate 10 MG TABLET PO (09:53)
[2020-05-28] MEDS: hydrALAZINE HCl 50 MG TABLET PO ×2 (09:56→15:40)
[2020-05-28] MEDS: Metoprolol Succinate ER 50 MG TAB.ER.24H PO (09:57)
[2020-05-28] MEDS: predniSONE 20 MG TABLET 40 MG PO (11:07)
--- NOTE | 2020-05-28 13:57 | PM.EVENT ---
Event Note Date of Service: 05/28/20 Event Note: PT. SEEN FOR PULM CONSULT, HISTORY REVIEWED , LAB AND IMAGING IS REVIEWED . COMPLETE NOTE IS DICTATED . A: COPD EARLY PN . RT UL. HCAP . RESP. FAILURE / HYPOXEMIA P: AGREE WITH THE CURRENT TREATMENT . O2 2L/MT . IF SHE DOES NOT TOLERATE CPAP , JUST KEEP HER ON O2 2 L/MT .
[2020-05-28 14:53] LABS: Base Excess VBG 1.3 mmol/L; HCO3 VBG 28 mmol/L; Oxygen Saturation VBG 77.7 %; PCO2 VBG 54 mmhg; PO2 VBG 44 mmhg; pH VBG 7.34 (7.32-7.43)
--- NOTE | 2020-05-28 15:28 | CONS_ITS ---
DATE OF SERVICE: 05/28/2020 REFERRING PHYSICIAN: Alexandra Kay MD This patient herself gives only a sketchy details of the history. I have obtained most of the information from the electronic records. She is a 54-year-old female with a long list of medical problems in the past including chronic anxiety, post traumatic stress syndrome, bipolar disorder, hypertension, hyperlipidemia, chronic back pain, GERD symptoms, chronic tobacco use up until April of this year. It is noted that she was admitted in the last week of April of this year, which will be only about a month ago and treated for acute respiratory infection. She was hypoxemic and did require oxygen supplementation and also started on noninvasive ventilation with CPAP. The patient was discharged to a rehab facility for short-term. While on the facility, she was using oxygen and then weaned off from the oxygen. She was sent home on CPAP machine, but she states that her machine did not work and she also did not have oxygen at home. The patient denies any fever or chills, and she had mild intermittent cough with minimal expectoration. The patient has been tested for COVID and she had a COVID positive test while in the short-term rehab. The repeat test is negative and she also has IgG COVID testing as positive. Her chest x-ray shows some abnormalities suggesting an early pneumonia in the right upper lobe. PAST MEDICAL HISTORY: As noted above. The patient has been quite obese. The patient has history of smoking throughout her adult life and she claims that she quit after Thanksgiving, which is about 4 weeks ago. REVIEW OF SYSTEMS: Basically related to her respiratory system and she claims to have intermittent cough with shortness of breath and has disturbed sleep at night. As noted above, she does have longstanding history of anxiety, posttraumatic stress disorder, and also bipolar disorder. PHYSICAL EXAMINATION: GENERAL: Reveals 54-year-old female with a round face. She is moderately obese. HEENT: Oropharynx is moderately crowded, but there is no acute infection in the throat. NECK: No JVD. Trachea in midline. CHEST: Chest wall is obese. Percussion note resonant. Breath sounds are quite distant. No wheezes, rhonchi or crepitations were heard. CARDIAC: PMI is not palpable. Heart sounds are distant. Rhythm regular. ABDOMEN: Moderately obese, but soft and nontender. EXTREMITIES: No pitting edema. No varicosities. Peripheral pulses faintly palpable. DIAGNOSTIC DATA: Chest x-ray, there is minimal infiltration in the right upper lobe suggesting possible mild pneumonia. On room air, her O2 saturation was 85%, currently on oxygen 2 L/minute, O2 saturation 95%. CBC: White cell count 6.8, hemoglobin 11. Eosinophil count 0.4. Electrolytes are all normal. Serum calcium level is 7.6, which is slightly low. COVID test as noted above was negative. CLINICAL IMPRESSION: 1. Possible early pneumonia, right upper lobe, we will have to consider it as healthcare-associated pneumonia. 2. Chronic obstructive pulmonary disease due to chronic smoking. 3. The patient probably has sleep apnea with nocturnal hypoxemia. 4. The patient not able to use CPAP as she described as her CPAP machine to be defective. 5. Multiple other medical problems as noted above. RECOMMENDATION: 1. Okay to treat with combination of Zosyn and vancomycin for the time being with consideration of early pneumonia right upper lobe. 2. Oxygen supplementation 2 to 3 L/minute to keep O2 saturation above 90. 3. Try to treat patient with CPAP while in the hospital and see if she can tolerate it. My feeling is that she is not going to be able to use CPAP and she will probably just need oxygen 2 L/minute at nighttime. 4. Encourage her to do deep breathing exercises. 5. DuStefanob saravanan q.6 hours p.r.n. Thank you very much for asking me to see this patient. Sincerely, MD DELANEY Dawson/EDVIN / [phone]
[2020-05-28] MEDS: methylPREDNISolone Sod Succ/PF 125 MG/2 ML VIAL 60 MG IV (15:40)
[2020-05-28] MEDS: Acetaminophen 325 MG TABLET 650 MG PO (16:09)
--- NOTE | 2020-05-28 18:31 | P.PNIM_ITS ---
Subjective Subjective Date of Service: 05/28/20 Interval History: Acute on chronic hypoxemic respiratory Review of Systems Patient still short of breath, denies any chest pain or abdominal pain or fever or chills Physical Exam Vital Signs: Vital Signs: Last Vital Signs Temp 98 F 05/28/20 15:23 Pulse 93 05/28/20 15:40 Resp 18 05/28/20 15:23 BP 111/67 05/28/20 15:40 Pulse Ox 92 05/28/20 15:23 Body Mass Index 35.6 Physical exam: Constitutional: Not in distress, still short of breath. Cvs: rrr, [id number] , no murmur res: clear to auscultation ,no rhonchii or wheezing abd: no rebound or guarding ,nt, bs present. ext pulses present , no cyanosis neuro: axo3 , nonfocal. Objective Data Current Medications Generic Name Dose Route Start Last Admin Trade Name Freq PRN Reason Stop Dose Admin Acetaminophen 650 mg 05/26/20 19:37 05/28/20 16:09 Acetaminophen 325 Mg Tablet PO 650 mg Q6H PRN Administration Pain, Mild (Pain Scale 1-3) Albuterol Sulfate 2 puff 05/26/20 19:37 Albuterol Sulfate 90 Mcg 8 Gm Inhaler INHALE Q4H PRN shortness of breath or wheezing Amitriptyline HCl 25 mg 05/26/20 21:00 05/27/20 21:41 Amitriptyline Hcl 25 Mg Tablet PO 25 mg BEDTIME LONG Administration Amlodipine Besylate 10 mg 05/27/20 09:00 05/28/20 09:53 Amlodipine Besylate 10 Mg Tablet PO 10 mg DAILY LONG Administration Protocol Aripiprazole 2 mg 05/27/20 09:00 05/28/20 09:51 Aripiprazole 2 Mg Tablet PO 2 mg DAILY LONG Administration Aspirin 81 mg 05/27/20 09:00 05/28/20 09:49 Aspirin Enteric Coated 81 Mg Tablet.Dr PO 81 mg DAILY LONG Administration Atorvastatin Calcium 10 mg 05/27/20 09:00 05/28/20 09:48 Atorvastatin Calcium 10 Mg Tablet PO 10 mg DAILY LONG Administration Clonazepam 0.5 mg 05/26/20 21:00 05/28/20 09:51 Clonazepam 0.5 Mg Tablet PO 0.5 mg BID LONG Administration Divalproex Sodium 1,000 mg 05/26/20 21:00 05/27/20 21:41 Divalproex Sodium Er 500 Mg Tab.Er.24h PO 1,000 mg BEDTIME LONG Administration Divalproex Sodium 500 mg 05/27/20 09:00 05/28/20 09:52 Divalproex Sodium Er 500 Mg Tab.Er.24h PO 500 mg DAILY LONG Administration Doxycycline Hyclate 100 mg 05/27/20 12:30 05/28/20 13:17 Doxycycline Hyclate 100 Mg Tablet PO 100 mg Q12H LONG Administration Duloxetine HCl 60 mg 05/27/20 09:00 05/28/20 09:48 Duloxetine Hcl 60 Mg Capsule. PO 60 mg DAILY LONG Administration Enoxaparin Sodium 40 mg 05/26/20 22:00 05/27/20 21:40 Enoxaparin Sodium 40 Mg/0.4 Ml Syringe SUBCUT 40 mg Q24H LONG Administration Fluticasone/Vilanterol 1 puff 05/27/20 08:00 05/28/20 07:49 Fluticasone/Vilanterol 100/25 Blst.W.Dev INHALE 1 puff RDAILY LONG Administration Guaifenesin/Dextromethorphan 5 ml 05/26/20 19:37 Guaifenesin Dm 100/10/5 Ml 5 Ml Syrup PO Q6H PRN Cough Hydralazine HCl 50 mg 05/26/20 21:00 05/28/20 15:40 Hydralazine Hcl 50 Mg Tablet PO 50 mg TID LONG Administration Protocol Methylprednisolone Sodium Succinate 60 mg 05/28/20 15:00 05/28/20 15:40 Methylprednisolone Sod Succ/Pf 125 Mg/2 Ml Vial IV 60 mg Q12H LONG Administration Metoprolol Succinate 50 mg 05/27/20 09:00 05/28/20 09:57 Metoprolol Succinate Er 50 Mg Tab.Er.24h PO 50 mg DAILY [facility] Administration Protocol Non-Formulary Medication 1 inhalation 05/27/20 09:00 Umeclidinium [Incruse Ellipta] INHALE DAILY [facility] Omeprazole 20 mg 05/27/20 06:30 05/28/20 15:39 Omeprazole 20 Mg Capsule. PO 20 mg BID@0630,1630 LONG Administration Ondansetron HCl 4 mg 05/26/20 19:37 Ondansetron Hcl 4 Mg/2 Ml Vial IVPUSH Q8H PRN Nausea and Vomiting Oxycodone HCl 10 mg 05/26/20 19:55 05/28/20 15:39 Oxycodone Hcl Immed Release 5 Mg Tablet PO 10 mg 5XD PRN Administration Pain (Scale Score 4-6) Pharmacy Consult 1 each 05/26/20 14:13 Consult Rx Perform Med Rec MISCELLANE ONCE PRN Consult order Prednisone 40 mg 05/27/20 09:00 05/28/20 11:07 Prednisone 20 Mg Tablet PO 40 mg DAILY LONG Administration Sodium Chloride 3 ml 05/27/20 00:00 05/28/20 16:13 0.9 % Sodium Chloride Flush 3 Ml Syringe IVFLUSH 3 ml QSHIFT LONG Administration Labs CBC & Chem 7: 05/27/20 05:49 05/27/20 05:49 Microbiology Microbiology Results: Microbiology 05/26/20 14:36 Blood - Venous Blood Culture - Preliminary No growth after 48 hours. 05/26/20 14:00 Blood - Venous Blood Culture - Preliminary No growth after 48 hours. Assessment and Plan (1) Pneumonia: Status: Acute (2) Hypoxia: Status: Acute (3) Rotator cuff strain: Status: Acute Assessment and Plan: 54-year-old woman, who is being admitted with healthcare-associated pneumonia with acute hypoxic respiratory failure. 1. Acute hypoxic respiratory failure related to pneumonia Initially was started on Vanco and Zosyn, subsequently her shortness of breath is improving will switch her p.o. doxy Pulmonary evaluation added because patient still require oxygen as well as has question of intermittent desaturation and night and could not tolerate CPAP. 2. Chronic obstructive pulmonary disease. Albuterol as needed. No exacerbation. No steroids required at this time. 3.Hypokalemia and hypomagnesemia. Replete it in the ER. We will follow BMP in the morning. 4. Recent coronavirus positive test at short-term rehab. There is no documentation here and coronavirus PCR test here was negative. However, we covid test neg here and positive IgG. 5. Depression. Continue amitriptyline, aripiprazole, clonazepam, Depakote, duloxetine. 6. Gastroesophageal reflux disease. Continue PPI. 7. Hyperlipidemia. Continue aspirin and statin. 8. Hypertension. Stable blood pressure. Continue amlodipine, metoprolol, and
[2020-05-28] MEDS: Divalproex Sodium ER 500 MG TAB.ER.24H 1000 MG PO (21:55)
[2020-05-28] MEDS: Enoxaparin Sodium 40 MG/0.4 ML SYRINGE SUBCUT (21:56)
[2020-05-28] MEDS: Amitriptyline HCl 25 MG TABLET PO (21:56)
[2020-05-28] MEDS: Lactated Ringers 500 ML 999 ML IVCONT (22:15)
[2020-05-29] VITALS (8 sets, daily range): BP systolic 98–156; BP diastolic 51–80; PULSE 71–92; RESP 18–20; TEMP 35.9–37; O2SAT 88–97
--- NOTE | 2020-05-29 | XR_ITS ---
EXAMINATION: XR CHEST CLINICAL INFORMATION: Follow-up pneumonia. COMPARISON: Chest 05/26/2020 TECHNIQUE: 2 views of the chest were obtained. FINDINGS: The lungs are well-expanded with bilateral increase interstitial markings. Previously seen right upper tracheal appears slightly improved. Heart size and pulmonary vascularity is normal. No gross bony abnormality. XR/XR chest 2V IMPRESSION: Slightly improved right upper lobe infiltrate. Prominent bilateral interstitial markings are stable.
[2020-05-29] MEDS: methylPREDNISolone Sod Succ/PF 125 MG/2 ML VIAL 60 MG IV ×2 (04:22→14:05)
[2020-05-29] MEDS: Omeprazole 20 MG CAPSULE.DR PO ×2 (05:56→15:35)
[2020-05-29] MEDS: oxyCODONE HCl Immed Release 5 MG TABLET 10 MG PO ×3 (05:59→20:35)
[2020-05-29] MEDS: Fluticasone/Vilanterol 100/25 BLST.W.DEV 1 PUFF INHALE (07:46)
[2020-05-29] MEDS: predniSONE 20 MG TABLET 40 MG PO (08:14)
[2020-05-29] MEDS: 0.9 % Sodium Chloride Flush 3 ML SYRINGE IVFLUSH ×3 (08:14→23:50)
[2020-05-29] MEDS: DULoxetine HCl 60 MG CAPSULE.DR PO (08:14)
[2020-05-29] MEDS: clonazePAM 0.5 MG TABLET PO ×2 (08:14→20:36)
[2020-05-29] MEDS: Divalproex Sodium ER 500 MG TAB.ER.24H PO (08:15)
[2020-05-29] MEDS: ARIPiprazole 2 MG TABLET PO (08:15)
[2020-05-29] MEDS: Atorvastatin Calcium 10 MG TABLET PO (08:15)
[2020-05-29] MEDS: Aspirin Enteric Coated 81 MG TABLET.DR PO (08:15)
[2020-05-29] MEDS: Acetaminophen 325 MG TABLET 650 MG PO ×2 (09:25→15:35)
[2020-05-29] MEDS: Albuterol Sulfate 90 MCG 8 GM INHALER 2 PUFF INHALE (11:14)
--- NOTE | 2020-05-29 11:50 | P.PNIM_ITS ---
Subjective Subjective Date of Service: 05/29/20 Interval History: pneumnia Review of Systems sob improving , denies any abd pain or fever or chills No weakness or numbness No cough or phlegm Physical Exam Vital Signs: Vital Signs: Last Vital Signs Temp 96.7 F L 05/29/20 08:00 Pulse 83 05/29/20 08:00 Resp 18 05/29/20 08:00 BP 100/65 05/29/20 08:00 Pulse Ox 94 05/29/20 08:00 Body Mass Index 35.6 Physical exam: Constitutional: Not in distress, still short of breath. Cvs: rrr, [id number] , no murmur res: fair air entry , no rales and wheezing abd: no rebound or guarding ,nt, bs present. ext pulses present , no cyanosis neuro: axo3 , nonfocal. Objective Data Current Medications Generic Name Dose Route Start Last Admin Trade Name Freq PRN Reason Stop Dose Admin Acetaminophen 650 mg 05/26/20 19:37 05/29/20 09:25 Acetaminophen 325 Mg Tablet PO 650 mg Q6H PRN Administration Pain, Mild (Pain Scale 1-3) Albuterol Sulfate 2 puff 05/26/20 19:37 05/29/20 11:14 Albuterol Sulfate 90 Mcg 8 Gm Inhaler INHALE 2 puff Q4H PRN Administration shortness of breath or wheezing Amitriptyline HCl 25 mg 05/26/20 21:00 05/28/20 21:56 Amitriptyline Hcl 25 Mg Tablet PO 25 mg BEDTIME LONG Administration Amlodipine Besylate 10 mg 05/27/20 09:00 05/29/20 08:18 Amlodipine Besylate 10 Mg Tablet PO Not Given DAILY LONG Protocol Aripiprazole 2 mg 05/27/20 09:00 05/29/20 08:15 Aripiprazole 2 Mg Tablet PO 2 mg DAILY LONG Administration Aspirin 81 mg 05/27/20 09:00 05/29/20 08:15 Aspirin Enteric Coated 81 Mg Tablet.Dr PO 81 mg DAILY LONG Administration Atorvastatin Calcium 10 mg 05/27/20 09:00 05/29/20 08:15 Atorvastatin Calcium 10 Mg Tablet PO 10 mg DAILY LONG Administration Clonazepam 0.5 mg 05/26/20 21:00 05/29/20 08:14 Clonazepam 0.5 Mg Tablet PO 0.5 mg BID LONG Administration Divalproex Sodium 1,000 mg 05/26/20 21:00 05/28/20 21:55 Divalproex Sodium Er 500 Mg Tab.Er.24h PO 1,000 mg BEDTIME LONG Administration Divalproex Sodium 500 mg 05/27/20 09:00 05/29/20 08:15 Divalproex Sodium Er 500 Mg Tab.Er.24h PO 500 mg DAILY LONG Administration Doxycycline Hyclate 100 mg 05/27/20 12:30 05/29/20 00:58 Doxycycline Hyclate 100 Mg Tablet PO 100 mg Q12H LONG Administration Duloxetine HCl 60 mg 05/27/20 09:00 05/29/20 08:14 Duloxetine Hcl 60 Mg Capsule. PO 60 mg DAILY LONG Administration Enoxaparin Sodium 40 mg 05/26/20 22:00 05/28/20 21:56 Enoxaparin Sodium 40 Mg/0.4 Ml Syringe SUBCUT 40 mg Q24H LONG Administration Fluticasone/Vilanterol 1 puff 05/27/20 08:00 05/29/20 07:46 Fluticasone/Vilanterol 100/25 Blst.W.Dev INHALE 1 puff RDAILY LONG Administration Guaifenesin/Dextromethorphan 5 ml 05/26/20 19:37 Guaifenesin Dm 100/10/5 Ml 5 Ml Syrup PO Q6H PRN Cough Hydralazine HCl 50 mg 05/26/20 21:00 05/28/20 22:00 Hydralazine Hcl 50 Mg Tablet PO Not Given TID [facility], [facility]1983 Protocol Methylprednisolone Sodium Succinate 60 mg 05/28/20 15:00 05/29/20 04:22 Methylprednisolone Sod Succ/Pf 125 Mg/2 Ml Vial IV 60 mg Q12H LONG Administration Metoprolol Succinate 50 mg 05/27/20 09:00 05/28/20 09:57 Metoprolol Succinate Er 50 Mg Tab.Er.24h PO 50 mg DAILY LONG Administration Protocol Non-Formulary Medication 1 inhalation 05/27/20 09:00 Umeclidinium [Incruse Ellipta] INHALE DAILY [facility] Omeprazole 20 mg 05/27/20 06:30 05/29/20 05:56 Omeprazole 20 Mg Capsule. PO 20 mg BID@8430,7380 LONG Administration Ondansetron HCl 4 mg 05/26/20 19:37 Ondansetron Hcl 4 Mg/2 Ml Vial IVPUSH Q8H PRN Nausea and Vomiting Oxycodone HCl 10 mg 05/26/20 19:55 05/29/20 05:59 Oxycodone Hcl Immed Release 5 Mg Tablet PO 10 mg 5XD PRN Administration Pain (Scale Score 4-6) Pharmacy Consult 1 each 05/26/20 14:13 Consult Rx Perform Med Rec MISCELLANE ONCE PRN Consult order Prednisone 40 mg 05/27/20 09:00 05/29/20 08:14 Prednisone 20 Mg Tablet PO 40 mg DAILY LONG Administration Sodium Chloride 3 ml 05/27/20 00:00 05/29/20 08:14 0.9 % Sodium Chloride Flush 3 Ml Syringe IVFLUSH 3 ml QSHIFT LONG Administration Labs CBC & Chem 7: 05/27/20 05:49 05/27/20 05:49 Microbiology Microbiology Results: Microbiology 05/26/20 14:36 Blood - Venous Blood Culture - Preliminary No growth after 48 hours. 05/26/20 14:00 Blood - Venous Blood Culture - Preliminary No growth after 48 hours. Assessment and Plan (1) Pneumonia: Status: Acute (2) Hypoxia: Status: Acute (3) Rotator cuff strain: Status: Acute Assessment and Plan: 54-year-old woman, who is being admitted with healthcare-associated pneumonia with acute hypoxic respiratory failure. 1. Acute hypoxic respiratory failure related to pneumonia Initially was started on Vanco and Zosyn, subsequently her shortness of breath is improving will switch her p.o. doxy Pulmonary evaluation added because patient still require oxygen as well as has question of intermittent desaturation and night and could not tolerate CPAP- patient need home oxygen setup. 2. Chronic obstructive pulmonary disease. Albuterol as needed. No exacerbation. No steroids required at this time. 3.Hypokalemia and hypomagnesemia. Replete it in the ER. We will follow BMP in the morning. 4. Recent coronavirus positive test at short-term rehab. There is no documentation here and coronavirus PCR test here was negative. However, we covid test neg here and positive IgG. 5. Depression. Continue amitriptyline, aripiprazole, clonazepam, Depakote, duloxetine. 6. Gastroesophageal reflux disease. Continue PPI. 7. Hyperlipidemia. Continue aspirin and statin. 8. Hypertension.: Patient had? Episode hypertension last night: Received IV fluid, Question thought to be related to blood pressure medication will hold blood pressure medications including metoprolol and hydralazine Blood pressure is improving will continue to monitor.
--- NOTE | 2020-05-29 12:01 | P.PNPL_ITS ---
Subjective Subjective Date of Service: 05/29/20 Interval history: This patient is being followed for possible pneumonia right upper lobe, and also obesity related chronic IVY/hypoventilation syndrome. As per history patient has not been able to use by level CPAP at home, claiming that to machine did not work right. However my feeling is that patient is now at amenable to the use of noninvasive support due to poor mental status. She is being treated with wide spectrum antibiotic coverage for possibility of healthcare associated pneumonia. There is only radiologic appearance of mild pneumonia right upper lobe. But clinically does not seem to have any active septic process. She is doing well with oxygen 2 L/minute continuously and especially at night. Venous blood gases showed pH 7.34 pCO2 54 and PO2 of 44. This indicates that she has well compensated respiratory failure with mild hypercapnia. Objective Data Labs CBC & Chem 7: 05/27/20 05:49 05/27/20 05:49 Labs: Laboratory Results - last 24 hr 05/28/20 14:24 VBG pH 7.34 VBG pCO2 54 VBG pO2 44 VBG HCO3 28 VBG O2 Saturation 77.7 VBG Base Excess 1.3 Microbiology Microbiology Results: Microbiology 05/26/20 14:36 Blood - Venous Blood Culture - Preliminary No growth after 48 hours. 05/26/20 14:00 Blood - Venous Blood Culture - Preliminary No growth after 48 hours. Review of Systems Constitutional: Denies headache(s) and Denies weakness Denies dizziness and Denies headache(s) Musculoskeletal: Denies numbness and Denies tingling Reports system reviewed and no additional complaints, except as documented, Denies dizziness, Denies headache(s), Denies numbness, Denies tingling and Denies weakness Physical Exam Vital Signs: Vital Signs: Last Vital Signs Temp 97.3 F 05/29/20 12:00 Pulse 92 05/29/20 12:00 Resp 18 05/29/20 12:00 BP 98/51 L 05/29/20 12:00 Pulse Ox 95 05/29/20 12:00 Body Mass Index 35.6 Const: General: cooperative, alert and awake Orientation/consciousness: patient oriented x3 HENMT: Head: Yes normal to inspection General nose exam: No nasal polyps present and No nasal discharge present Face and sinus: Yes sinuses nontender Mouth: oropharynx normal Teeth and gingiva: other (luiz pharynx is narrow .) Throat: Yes posterior oropharynx normal Eyes: General: appearance normal, both eyes and all related structures Neck: Neck: Yes normal visual inspection, Yes no lymphadenopathy, Yes trachea midline and Yes no JVD Thyroid: Thyroid normal Chest: Chest palpation & inspection: normal inspection of the chest and normal palpation of entire chest wall Resp: Auscultation: no crackles, no rales, no wheezes and diminished lung sounds (diminished over bases ) Cardio: Palpation: normal PMI Rate: regular rate Rhythm: regular rhythm Heart sounds: no gallops and no murmurs Peripheral pulses: Peripheral pulses 2+ throughout GI: Palpation (GI): Soft to palpation, Tenderness to palpation present (GI), No hepatosplenomegaly present and Palpable mass present Auscultation: normal bowel sounds Back/Spine/Pelvis: Thoracic/Lumbar Spine: thoracic and lumbar spine normal to inspection Skin: General skin exam: no rashes or lesions noted Neuro: General: patient oriented x3 and no focal motor deficits Cranial nerves: Yes CN's II-XII intact bilaterally Extrem: General: Yes normal to inspection, Yes no clubbing, cyanosis or edema, Yes no calf tenderness and Yes venous stasis dermatitis Psych: Speech and movement: Normal speech and movement present Assessment and Plan Assessment and plan (1) Pneumonia: Problem details: Repeat chest xray , if it is clear , I would suggest , DC ing of Broad spectrum ABs Status: Acute (2) Hypoxia: Problem details: Continue O2 2l/mt Status: Acute (3) Respiratory failure with hypoxia and hypercapnia: Problem details: O2 2 l/mt , encourage pt. to do deep breathing exercises with Purse lip technique Status: Acute (4) Hypoventilation associated with obesity: Problem details: weight reduction and deep breathing exercises should help . Status: Acute Time Spent With Patient Time: Total time spent is greater than 50% in coordination of care (as do cumented) at patient's floor/unit and/or counseling patient: Time with patient: 25 - 35 minutes
[2020-05-29] MEDS: LORazepam 0.5 MG TABLET PO (14:17)
--- NOTE | 2020-05-29 14:28 | MHC.CM.PN ---
DP HOME WITH NEW O2 RESUMPTION OF [facility] FOR HOME CARE SERVICES. HER WILL TRANSPORT TO [place] AT [place]. RT WORKING WITH [facility] TO PROVIDE OXYGEN. SHE HAS NO COVERAGE CURRENTLY FOR HOME OXYGEN. A FINANCIAL CONSULT HAS BEEN REFERRED. HOME O2 EVAL QUALIFIES PT FOR OXYGEN. CM WILL FOLLOW.
[2020-05-29] MEDS: Lactated Ringers 500 ML 80 ML IV (14:52)
[2020-05-29] MEDS: Divalproex Sodium ER 500 MG TAB.ER.24H 1000 MG PO (20:36)
[2020-05-29] MEDS: Amitriptyline HCl 25 MG TABLET PO (20:36)
[2020-05-29] MEDS: Enoxaparin Sodium 40 MG/0.4 ML SYRINGE SUBCUT (20:45)
[2020-05-30 00:04] VITALS: BP 106/70; PULSE 89; RESP 18; TEMP 36.8; O2SAT 93
[2020-05-30] MEDS: methylPREDNISolone Sod Succ/PF 125 MG/2 ML VIAL 60 MG IV (02:10)
[2020-05-30] MEDS: oxyCODONE HCl Immed Release 5 MG TABLET 10 MG PO ×2 (02:14→10:07)
[2020-05-30 04:25] VITALS: BP 119/57; PULSE 88; RESP 18; TEMP 36.2; O2SAT 94
[2020-05-30] MEDS: Omeprazole 20 MG CAPSULE.DR PO (05:43)
[2020-05-30 07:26] LABS: Anion Gap 14 (12-20); Blood Urea Nitrogen 20 mg/dL (9-16); Calcium 8.3 mg/dL (8.4-10.2); Carbon Dioxide 31 mmol/L (22-29); Chloride 102 mmol/L (96-108); Creatinine Clr Calc Pharmacy 89.7; Estimated Glomerular Filt Rate > 60; Glucose Random 107 mg/dL (60-115); Potassium 3.8 mmol/l (3.3-5.1); Sodium 143 mmol/L (135-145)
[2020-05-30 07:57] VITALS: PULSE 85; O2SAT 90
[2020-05-30] MEDS: Fluticasone/Vilanterol 100/25 BLST.W.DEV 1 PUFF INHALE (07:57)
[2020-05-30 08:00] VITALS: BP 112/76; PULSE 79; RESP 18; TEMP 36.6; O2SAT 95
[2020-05-30 08:55] VITALS: O2SAT 93
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
[2020-05-30] MEDS: 0.9 % Sodium Chloride Flush 3 ML SYRINGE IVFLUSH (10:05)
--- NOTE | 2020-05-30 10:06 | PM.PNPUL ---
Subjective Subjective Date of Service: 05/30/20 Interval history: Patient is feeling much better, she has had no fever during her hospital stay. Breathing is definitely improved, she is walking around off oxygen and maintaining the O2 sat in normal range. She has not been using CPAP over here and has done well. She has learned and is doing the pursed lip breathing exercises very diligently. She is anxious to go home and well motivated to continue doing deep breathing exercises Chest x-ray repeated on 05/29 does not show any residual pneumonia . CBC did not show any leukocytosis. Objective Data Labs CBC & Chem 7: 05/27/20 05:49 05/30/20 05:54 Labs: Laboratory Results - last 24 hr 05/30/20 05:54 Sodium 143 Potassium 3.8 Chloride 102 Carbon Dioxide 31 H Anion Gap 14 BUN 20 H D Creatinine 0.78 Estim Creat Clear Calc 89.7 Estimated GFR > 60 Random Glucose 107 Calcium 8.3 L D Microbiology Microbiology Results: Microbiology 05/26/20 14:36 Blood - Venous Blood Culture - Preliminary No growth after 48 hours. 05/26/20 14:00 Blood - Venous Blood Culture - Preliminary No growth after 48 hours. Review of Systems Constitutional: Denies headache(s) and Denies weakness Denies dizziness and Denies headache(s) Musculoskeletal: Denies numbness and Denies tingling Reports system reviewed and no additional complaints, except as documented, Denies dizziness, Denies headache(s), Denies numbness, Denies tingling and Denies weakness Physical Exam Vital Signs: Vital Signs: Last Vital Signs Temp 97.8 F 05/30/20 08:00 Pulse 79 05/30/20 08:00 Resp 18 05/30/20 08:00 BP 112/76 05/30/20 08:00 Pulse Ox 93 05/30/20 08:55 Body Mass Index 35.6 Const: General: healthy appearing (but obese with a round face .), comfortable, no acute distress, alert and awake Orientation/consciousness: patient oriented x3 HENMT: Head: Yes normal to inspection General nose exam: No nasal polyps present and No nasal discharge present Face and sinus: Yes sinuses nontender Mouth: oropharynx normal Throat: Yes posterior oropharynx normal Eyes: General: appearance normal, both eyes and all related structures Neck: Neck: Yes normal visual inspection, Yes no lymphadenopathy, Yes trachea midline and Yes no JVD Thyroid: Thyroid normal Chest: Chest palpation & inspection: normal inspection of the chest and normal palpation of entire chest wall Resp: Auscultation: no rhonchi, no wheezes and diminished lung sounds Cardio: Palpation: abnormal PMI (not palpable.) Rate: regular rate Rhythm: regular rhythm Heart sounds: no gallops and no murmurs Peripheral pulses: Peripheral pulses 2+ throughout GI: Palpation (GI): Soft to palpation, nontender, No hepatosplenomegaly present and no masses Auscultation: normal bowel sounds Back/Spine/Pelvis: Thoracic/Lumbar Spine: thoracic and lumbar spine normal to inspection Skin: General skin exam: no rashes or lesions noted Neuro: General: patient oriented x3 and no focal motor deficits Cranial nerves: Yes CN's II-XII intact bilaterally Extrem: General: Yes normal to inspection, Yes no clubbing, cyanosis or edema, Yes no calf tenderness and No venous stasis dermatitis Psych: Appearance: grossly normal Speech and movement: Normal speech and movement present Assessment and Plan Assessment and plan (1) Hypoventilation associated with obesity: Problem details: weight reduction and deep breathing exercises should help . Status: Acute (2) Respiratory failure with hypoxia and hypercapnia: Problem details: O2 sat . on room air is WNL.still may have Nocturnal Hypoxemia , if she does not use the CPAP So will be OK to use O2 2l/mt at night . She does have O2 at home . Status: Acute (3) Pneumonia: Problem details: Repeat chest xray on 05/29 Neg for Pneumonia , I think we should DC Vanco and Zosyn . May treat emperically with Doxy 100 mg bid for one week . Status: Acute Assessment and Plan: May be dischsrged home . and she needs to be followed up as out pt. Time Spent With Patient Time: Total time spent is greater than 50% in coordination of care (as documented) at patient's floor/unit and/or counseling patient: Time with patient: 15 - 24 minutes
[2020-05-30] MEDS: Aspirin Enteric Coated 81 MG TABLET.DR PO (10:07)
[2020-05-30] MEDS: Atorvastatin Calcium 10 MG TABLET PO (10:07)
[2020-05-30] MEDS: DULoxetine HCl 60 MG CAPSULE.DR PO (10:07)
[2020-05-30] MEDS: Divalproex Sodium ER 500 MG TAB.ER.24H PO (10:08)
[2020-05-30] MEDS: predniSONE 20 MG TABLET 40 MG PO (10:08)
[2020-05-30] MEDS: ARIPiprazole 2 MG TABLET PO (10:08)
[2020-05-30] MEDS: clonazePAM 0.5 MG TABLET PO (10:08)
[2020-05-30] MEDS: amLODIPine Besylate 10 MG TABLET PO (10:09)
== END 2020-05-30 11:45 | disposition home health service (06) | DRG 193 ==
LOC: HO.ED 14:34 → HO.IMC 18:13
PROVIDERS: Internal Medicine; Nurse Practitioner Acute Care; Nurse Practitioner Family; Admitting Provider Internal Medicine; Emergency Provider Emergency Medicine; PCP Internal Medicine; Visit Provider Internal Medicine
DX: J18.9 Pneumonia, unspecified organism (principal); J96.01 Acute respiratory failure with hypoxia; J96.02 Acute respiratory failure with hypercapnia; J44.0 Chronic obstructive pulmonary disease with (acute) lower respiratory infection; E66.2 Morbid (severe) obesity with alveolar hypoventilation; E78.5 Hyperlipidemia, unspecified; E83.42 Hypomagnesemia; K21.9 Gastro-esophageal reflux disease without esophagitis; E87.6 Hypokalemia; Z86.19 Personal history of other infectious and parasitic diseases; I10 Essential (primary) hypertension; G25.81 Restless legs syndrome; Z68.35 Body mass index [BMI] 35.0-35.9, adult; F32.9 Major depressive disorder, single episode, unspecified; F17.210 Nicotine dependence, cigarettes, uncomplicated; Z71.6 Tobacco abuse counseling; Z88.0 Allergy status to penicillin; Z79.82 Long term (current) use of aspirin; Z79.899 Other long term (current) drug therapy
CPT/HCPCS: 36415; 71045; 71046; 73030; 73070; 80048; 80202; 82803; 83605; 83735; 83880; 84484; 85025; 85610; 86769; 87040; 87635; 93005; 94660; 96361; 96365; 96367; 97110; 97116; 97162; 99285; J0456; J0692; J1650; J2543; J2930; J3370; J3475

== ENCOUNTER 2020-06-16 11:55 | Outpatient (REF) | payer OTHER, SELFPAY ==
[2020-06-16 12:51] LABS: Alanine Aminotransferase < 6 U/L (0-31); Albumin Level 3.7 g/dL (3.5-5.0); Alkaline Phosphatase 83 U/L (39-117); Aspartate Amino Transferase 12 U/L (5-31); Bilirubin Direct < 0.2 mg/dL (0.0-0.5); Bilirubin Total 0.3 mg/dL (0.0-1.0)
[2020-06-16 12:53] LABS: Valproate 56.1 mcg/mL (50.0-100.0)
== END 2020-06-16 11:56 | disposition home or self-care (01) ==
LOC: HO.LNP 11:55
PROVIDERS: Visit Provider Internal Medicine
DX: J96.02 Acute respiratory failure with hypercapnia (principal)
CPT/HCPCS: 80076; 80164

== ENCOUNTER → 2020-06-23 14:24 | Outpatient (BNVA) | payer OTHER, SELFPAY | PROVIDERS: PCP Internal Medicine; Visit Provider Internal Medicine | DX: E66.9 Obesity, unspecified (principal); E66.2 Morbid (severe) obesity with alveolar hypoventilation; J44.9 Chronic obstructive pulmonary disease, unspecified; J96.91 Respiratory failure, unspecified with hypoxia; J96.92 Respiratory failure, unspecified with hypercapnia | CPT/HCPCS: 99212 ==

== ENCOUNTER 2020-07-03 14:15 | Inpatient (IN) | payer MEDICARE, MEDICAID, SELFPAY ==
[2020-07-03] VITALS (7 sets, daily range): BP systolic 114–147; BP diastolic 63–77; PULSE 77–89; RESP 18–20; TEMP 35.6–36.9; O2SAT 87–97; BMI 36.8
--- NOTE | ~2020-07-03 | MR_ITS ---
EXAMINATION: MR BRAIN WITHOUT AND WITH CONTRAST CLINICAL INFORMATION: Lung cancer. Assessment for metastatic disease. COMPARISON: CT head from 05/24/2012. Brain MRI from 03/01/2012. TECHNIQUE: MRI of the brain was obtained using routine sequences without and following the administration of 10 mL of Gadavist intravenous contrast. FINDINGS: Exam is moderately motion degraded. There appear to be a few punctate foci of restricted diffusion within the right occipital lobe, right lentiform nucleus, and high right frontal lobe. No definitive enhancement in these locations; however, postcontrast imaging is relatively motion degraded. No evidence of acute or chronic hemorrhagic products on heme-sensitive imaging. Findings are superimposed on scattered periventricular and deep white matter T2 FLAIR hyperintensities suggestive of most commonly seen with mild underlying microangiopathy. The ventricles are normal in morphology and size. No abnormal mass effect. No midline shift. Normal appearance of the pituitary gland. Normal positioning of the cerebellar tonsils. Normal arterial and venous vascular flow voids are present. No abnormal contrast enhancement. Normal, homogeneous marrow signal. No signal abnormalities within the paranasal sinuses or mastoids. MR/MR head/brain wo/w con IMPRESSION: Exam is moderately motion degraded. Within this limitation, there is no demonstrated evidence of abnormal enhancement to strongly suggest metastatic disease. However, there does appear to be a few scattered lytic foci of restricted diffusion within the right cerebral hemisphere. This is in the setting of underlying chronic white matter changes are most commonly seen with microangiopathy. Follow-up MRI may be warranted to evaluate if this restricted diffusion represents more acute small vessel ischemic change.
--- NOTE | ~2020-07-03 | XR_ITS ---
EXAMINATION: XR CHEST CLINICAL INFORMATION: Shortness of breath COMPARISON: 07/08/2020 and priors TECHNIQUE: AP upright portable view of the chest was obtained. Lordotic positioning. FINDINGS: There is new opacity in the medial retrocardiac left lower lobe with silhouetting of the descending aorta. This suggests a left lower lobe consolidation. Recent chest CT with a left lower lobe pulmonary mass and needle biopsy. No pneumothorax. Minimal blunting of the left lateral costophrenic angle could indicate a small effusion. Change on plain radiography could represent atelectasis, hemorrhage into the mass or lung, or pneumonia such as aspiration. The heart and mediastinum are grossly stable. XR/XR chest 1V IMPRESSION: Developing opacity in the retrocardiac left lower lobe. Recent biopsy of a mass at this location. Suggest CT to further characterize this evolving process in the periprocedural setting.
--- NOTE | 2020-07-03 14:47 | CT_ITS ---
EXAMINATION: CT CHEST WITHOUT CONTRAST CLINICAL INFORMATION: Shortness of breath. Hypoxia. Post- Covid one month COMPARISON: CT chest 04/25/2020 TECHNIQUE: Multidetector volumetric CT imaging of the chest was done. Axial MIP volume rendering provided. Sagittal and coronal reformatted images were obtained. This CT examination was performed using dose optimization techniques as appropriate, variously including the following: *Automated exposure control *Adjustment of mA and/or kV according to patient size (this includes techniques or standardized protocols for targeted exams where dose is matched to indication/reason for exam; i.e. extremities or head) *Use of iterative reconstruction technique DLP: 368 mGy-cm FINDINGS: LUNGS: Small region of hazy airspace opacity in the posterior right upper lobe sagittal image 87. Linear scarring or atelectasis at both lung bases. No dense consolidation with air bronchogram. Central bronchial airways are open. No bronchiectasis. Lung nodule: There is a lobular mass in the left lower lobe measuring 2.3 cm, axial image 259/592 series 9. This unchanged since the CAT scan 04/21/2020. This is a suspicious lesion. MEDIASTINUM: There are subcentimeter shotty lymph nodes in the pretracheal retrovascular space and AP window but no bulky lymphadenopathy. The heart size is normal. Large volume of coronary artery calcifications. There is no pericardial effusion. There is no aneurysm of aorta. Moderate volume of calcifications of the thoracic aortic wall. PLEURA: There is no pleural effusion. No pleural mass or thickening. AXILLA: No lymphadenopathy. UPPER ABDOMEN: Status post cholecystectomy. The adrenal glands are normal. OSSEOUS STRUCTURES: Multilevel degenerative spondylosis of the spine. CT/CT chest wo con IMPRESSION: 1. Hazy airspace opacity posterior right upper lobe. 2. 2.3 cm lobular mass left lower lobe. This is a suspicious lesion. Consider tissue sampling. This result was discussed with JUAN Fallon on 07/03/2020, 5:00 PM and it was ascertained that the content and urgency of the report was understood at the time of direct communication.
--- NOTE | 2020-07-03 14:48 | ECG_ITS ---
Test Reason : FATIGUE Blood Pressure : / mmHG Vent. Rate : 077 BPM Atrial Rate : 077 BPM P-R Int : 152 ms QRS Dur : 096 ms QT Int : 400 ms P-R-T Axes : 067 051 040 degrees QTc Int : 452 ms Normal sinus rhythm Cannot rule out Anterior infarct , age undetermined Abnormal ECG When compared with ECG of 26-MAY-2020 13:41, Poor R wave progression present Referred By: Jaqueline Willis Electronically Signed By:Soto Jaquez
--- NOTE | 2020-07-03 14:50 | ED_ITS ---
HPI - SOB/Dyspnea General Chief Complaint: Dyspnea Stated Complaint: chf Time Seen by Provider: 07/03/20 14:46 Source: patient Mode of arrival: ambulatory Limitations: no limitations History of Present Illness HPI Narrative: admitted from 05/26 to 05/30 initially on NIPPV found to HCAP had COVID ab on 05/27 since going home she notes on her pulse ox she has been anywhere from 60s to 88% (best) on RA and due to insurance issues cannot get O2, she notes increase LE swelling but not on diuretics, she comes in frustrated and knows that she needs O2, also does not have nebulizer machine MD elicited complaint: shortness of breath Pertinent past history: COPD Onset (ago): month(s) (1) Context: recent illness (had HCAP and COVID in may required NIPPV) Timing: constant Severity: moderate Exacerbating factors: lying flat, exertion, movement and coughing Relieving factors: oxygen Known history of: COPD Associated symptoms: other (LE edema) Treatment prior to arrival: none Related Data Home Medications Medication Instructions Recorded Confirmed amitriptyline 25 mg PO BEDTIME 04/21/20 07/03/20 amlodipine 10 mg PO DAILY 04/21/20 07/03/20 aspirin 81 mg PO DAILY 04/21/20 07/03/20 divalproex 500 mg PO DAILY 04/21/20 07/03/20 duloxetine 60 mg PO BEDTIME 04/21/20 07/03/20 omeprazole 20 mg PO BID@0630,1630 04/21/20 07/03/20 Breo Ellipta 1 inh INHALATION DAILY 05/26/20 07/03/20 Incruse Ellipta 1 inh INHALATION DAILY 05/26/20 07/03/20 aripiprazole 2 mg PO DAILY 05/26/20 07/03/20 clonazepam 0.5 mg PO BID 05/26/20 07/03/20 divalproex 1,000 mg PO BEDTIME 05/26/20 07/03/20 hydralazine 50 mg PO TID 05/26/20 07/03/20 metoprolol succinate 50 mg PO DAILY 05/26/20 07/03/20 oxycodone-acetaminophen 1 tab PO 5XD PRN 05/26/20 07/03/20 atorvastatin 20 mg PO BEDTIME 07/03/20 07/03/20 Previous Rx's Medication Instructions Recorded albuterol sulfate 2 puff INHALATION Q4-6H PRN #8.5 g 04/30/20 Allergies Allergy/AdvReac Type Severity Reaction Status Date / Time Penicillins Allergy Mild RASH Verified 06/23/20 14:36 venlafaxine [From Effexor] Allergy Mild RASH Verified 06/23/20 14:36 cyclobenzaprine Allergy Unknown UNKNOWN Verified 06/23/20 14:36 [Cyclobenzaprine] fentanyl [FENTANYL] Allergy Unknown HALLUCINATI Verified 06/23/20 14:36 ONS topiramate [From Topamax] Allergy Unknown UNKNOWN Verified 06/23/20 14:36 Review of Systems Review of Systems: Constitutional : No Fever, No Chills ENT/Mouth : No sore throat, No Rhinorrhea, No Swallowing Difficulty Eyes: No Eye Pain, No Swelling, No Redness Cardiovascular : No Chest Pain, positive SOB, No Orthopnea, positive Edema Respiratory : pos Cough, No Sputum, No Wheezing, positive dyspnea Gastrointestinal : No Nausea, No Vomiting, No Diarrhea, No abdominal Pain, No Hematochezia, No Melena Genitourinary : No Dysuria, No Urinary Frequency, No Hematuria Musculoskeletal : No joint pain, No Myalgias Skin : No Skin Lesions, No rash Neuro : No Weakness, No Numbness, No Dizziness, No Headache Psych : No Anxiety/Panic, No Depression Heme/Lymph: No Bruising, No Lymphadenopathy Endocrine : No Polyuria, No Polydipsia All other systems reviewed and are negative PMFSH Past Medical History Medical History Acute on chronic diastolic CHF (congestive heart failure) Back pain with history of spinal surgery Bipolar 1 disorder Bipolar disorder CAD (coronary artery disease) Chronic back pain COPD (chronic obstructive pulmonary disease) COPD (chronic obstructive pulmonary disease) Depression Fibromyalgia High cholesterol HTN (hypertension) Hypoventilation associated with obesity Obesity Obesity hypoventilation syndrome PTSD (post-traumatic stress disorder) Renal failure Respiratory failure with hypoxia and hypercapnia Restless legs syndrome (RLS) Rotator cuff strain Sleep disorder Smoker Surgical History H/O: hysterectomy Social History Social History (Updated 07/03/20 @ 15:06 by Jaqueline Willis DO) Household Members: Spouse Housing: Apartment Alcohol intake: unknown Smoking Status: Current some day smoker Use of substances other than those prescribed or required for medical reasons: No Advance Directives: No Advance Directives Information Provided: Yes service: No Current occupational status: disabled Physical Exam Vital Signs: Vital Signs: Last Vital Signs Temp 98.4 F 07/03/20 14:46 Pulse 77 07/03/20 15:58 Resp 18 07/03/20 15:58 BP 146/74 H 07/03/20 15:58 Pulse Ox 97 07/03/20 15:58 Body Mass Index 36.8 Appearance: Alert. Oriented X3. No acute distress. on arrival to ED 87% on RA Eyes: Pupils equal, round and reactive to light. ENT: Pharynx normal. Neck: Normal inspection. Neck supple. CVS: Normal heart rate and rhythm. Pulses normal. Respiratory: No respiratory distress. Breath sounds decreased throughout Abdomen: Soft and nontender. Skin: Skin warm and dry. Normal skin color. Normal skin turgor. Extremities: pitting 1+ bilateraly lower extremity edema. No calf ttp Neuro: Oriented X 3. No motor deficit. No sensory deficit. Course Course Course Narrative: BNP and trop lower than baseline, 96% on NC at this time ABG is right around the patient's baseline, 76 CO is average for her CASE management states they cannot get her home O2 from here as well as she does not have a neb machine - signed out pending CT scan but given her exertional sats in C were 67% as well as 87% on RA here she will need admission for further management MDM - SOB/Dyspnea MDM Narrative Medical decision making narrative: 54 yo female with COPD, hx of resp failure COVID and HCAP in May has chronic hypoxia even at rest - cannot get O2 due to insurance issues, at this time will need labs, CXR, IV steroids, neb treatment, given LE edema which has been for 1 month - IV lasix ordered as well, CM requested to be involved. Lab Data Result diagrams: 07/03/20 15:06 07/03/20 15:06 Labs: Lab Results 07/03/20 07/03/20 07/03/20 Range/Units 15:06 15:06 15:06 WBC 11.9 H (4.8-10.8) X10*3/uL RBC 3.72 L (4.20-5.50) X10*6/uL Hgb 10.4 L (12.0-16.0) g/dl Hct 34.4 L (37-47) % MCV 92.5 (80-98) fL MCH 28.0 (27.0-33.0) pg MCHC 30.2 L (31.0-35.0) g/dl RDW 17.8 H (11.0-16.0) % Plt Count 319 D (160-400) X10*3/uL MPV 9.1 L (9.4-12.3) fL Immature Gran % (Auto) 1.3 H (0.0-0.4) % Neut % (Auto) 63.8 (45-73) % Lymph % (Auto) 25.8 (20-40) % [place] % (Auto) 8.0 (2-11) % Eos % (Auto) 0.7 (0-4) % Baso % (Auto) 0.4 (0-2) % Lymph # (Auto) 3.1 (1.2-4.9) X10*3/uL [place] # (Auto) 1.0 (0.1-1.2) X10*3/uL Eos # (Auto) 0.1 (0.0-0.4) X10*3/uL Baso # (Auto) 0.1 (0.0-0.2) X10*3/uL Abs Immat Gran (auto) 0.15 H (0.00-0.03) X10*3/uL Absolute Neuts (auto) 7.6 (2.0-8.3) X10*3/uL Absolute Nucleated RBC 0.000 (0.0-0.012) X10*3/uL Nucleated RBC % (auto) 0.0 (0.0-0.2) /100WBC PT (10.8-13.0) SEC INR (0.9-1.1) APTT (24.1-38.0) SEC VBG pH (7.32-7.43) VBG pCO2 mmHg VBG pO2 mmHg VBG HCO3 mmol/L VBG O2 Saturation % VBG Base Excess mmol/L Oxygen Given Sodium 142 (135-145) mmol/L Potassium 3.5 (3.3-5.1) mmol/L Chloride 103 (96-108) mmol/L Carbon Dioxide 31 H (22-29) mmol/L Anion Gap 12 (12-20) BUN 10 (9-16) mg/dL Creatinine 0.92 (0.5-1.4) mg/dL Estim Creat Clear Calc 77.4 Estimated GFR > 60 Random Glucose 94 (60-115) mg/dL Lactic Acid (0.5-2.0) mmol/L Calcium 7.8 L D (8.4-10.2) mg/dL Magnesium 1.6 (1.6-2.6) mg/dL Total Bilirubin 0.5 (0.0-1.0) mg/dL Direct Bilirubin < 0.2 (0.0-0.5) mg/dL AST 10 (5-31) U/L ALT < 6 (0-31) U/L Alkaline Phosphatase 86 (39-117) U/L Troponin I High Sens (<3.5-17.0) ng/L B-Natriuretic Peptide 107 H (<100) pg/mL Total Protein 6.2 L (6.5-8.0) g/dL Albumin 3.7 (3.5-5.0) g/dL Valproic Acid 65.6 (50.0-100.0) mcg/mL COVID-19 (ANA) (Negative) COVID-19 Clin Com 07/03/20 07/03/20 07/03/20 Range/Units 15:06 15:06 15:06 WBC (4.8-10.8) X10*3/uL RBC (4.20-5.50) X10*6/uL Hgb (12.0-16.0) g/dl Hct (37-47) % MCV (80-98) fL MCH (27.0-33.0) pg MCHC (31.0-35.0) g/dl RDW (11.0-16.0) % Plt Count (160-400) X10*3/uL MPV (9.4-12.3) fL Immature Gran % (Auto) (0.0-0.4) % Neut % (Auto) (45-73) % Lymph % (Auto) (20-40) % [place] % (Auto) (2-11) % Eos % (Auto) (0-4) % Baso % (Auto) (0-2) % Lymph # (Auto) (1.2-4.9) X10*3/uL [place] # (Auto) (0.1-1.2) X10*3/uL Eos # (Auto) (0.0-0.4) X10*3/uL Baso # (Auto) (0.0-0.2) X10*3/uL Abs Immat Gran (auto) (0.00-0.03) X10*3/uL Absolute Neuts (auto) (2.0-8.3) X10*3/uL Absolute Nucleated RBC (0.0-0.012) X10*3/uL Nucleated RBC % (auto) (0.0-0.2) /100WBC PT 11.6 (10.8-13.0) SEC INR 1.0 (0.9-1.1) APTT 41.5 H (24.1-38.0) SEC VBG pH (7.32-7.43) VBG pCO2 mmHg VBG pO2 mmHg VBG HCO3 mmol/L VBG O2 Saturation % VBG Base Excess mmol/L Oxygen Given Sodium (135-145) mmol/L Potassium (3.3-5.1) mmol/L Chloride (96-108) mmol/L Carbon Dioxide (22-29) mmol/L Anion Gap (12-20) BUN (9-16) mg/dL Creatinine (0.5-1.4) mg/dL Estim Creat Clear Calc Estimated GFR Random Glucose (60-115) mg/dL Lactic Acid 1.6 (0.5-2.0) mmol/L Calcium (8.4-10.2) mg/dL Magnesium (1.6-2.6) mg/dL Total Bilirubin (0.0-1.0) mg/dL Direct Bilirubin (0.0-0.5) mg/dL AST (5-31) U/L ALT (0-31) U/L Alkaline Phosphatase (39-117) U/L Troponin I High Sens 5.2 (<3.5-17.0) ng/L B-Natriuretic Peptide (<100) pg/mL Total Protein (6.5-8.0) g/dL Albumin (3.5-5.0) g/dL Valproic Acid (50.0-100.0) mcg/mL COVID-19 (ANA) (Negative) COVID-19 Clin Com 07/03/20 07/03/20 07/03/20 Range/Units 15:07 15:20 15:50 WBC (4.8-10.8) X10*3/uL RBC (4.20-5.50) X10*6/uL Hgb (12.0-16.0) g/dl Hct (37-47) % MCV (80-98) fL MCH (27.0-33.0) pg MCHC (31.0-35.0) g/dl RDW (11.0-16.0) % Plt Count (160-400) X10*3/uL MPV (9.4-12.3) fL Immature Gran % (Auto) (0.0-0.4) % Neut % (Auto) (45-73) % Lymph % (Auto) (20-40) % [place] % (Auto) (2-11) % Eos % (Auto) (0-4) % Baso % (Auto) (0-2) % Lymph # (Auto) (1.2-4.9) X10*3/uL [place] # (Auto) (0.1-1.2) X10*3/uL Eos # (Auto) (0.0-0.4) X10*3/uL Baso # (Auto) (0.0-0.2) X10*3/uL Abs Immat Gran (auto) (0.00-0.03) X10*3/uL Absolute Neuts (auto) (2.0-8.3) X10*3/uL Absolute Nucleated RBC (0.0-0.012) X10*3/uL Nucleated RBC % (auto) (0.0-0.2) /100WBC PT (10.8-13.0) SEC INR (0.9-1.1) APTT (24.1-38.0) SEC VBG pH 7.29 L (7.32-7.43) VBG pCO2 66 mmHg VBG pO2 85 mmHg VBG HCO3 32 mmol/L VBG O2 Saturation 94.0 % VBG Base Excess 4.7 mmol/L Oxygen Given 2 L Sodium (135-145) mmol/L Potassium (3.3-5.1) mmol/L Chloride (96-108) mmol/L Carbon Dioxide (22-29) mmol/L Anion Gap (12-20) BUN (9-16) mg/dL Creatinine (0.5-1.4) mg/dL Estim Creat Clear Calc Estimated GFR Random Glucose (60-115) mg/dL Lactic Acid (0.5-2.0) mmol/L Calcium (8.4-10.2) mg/dL Magnesium (1.6-2.6) mg/dL Total Bilirubin (0.0-1.0) mg/dL Direct Bilirubin (0.0-0.5) mg/dL AST (5-31) U/L ALT (0-31) U/L Alkaline Phosphatase (39-117) U/L Troponin I High Sens (<3.5-17.0) ng/L B-Natriuretic Peptide (<100) pg/mL Total Protein (6.5-8.0) g/dL Albumin (3.5-5.0) g/dL Valproic Acid (50.0-100.0) mcg/mL COVID-19 (ANA) Negative (Negative) COVID-19 Clin Com See Note ECG Data Attestation: I personally reviewed and interpreted this ECG as follows: ECG interpretation date: 07/03/20 ECG interpretation time: 15:21 Interpretation: Rate: 77 Rhythm: NSR Pearl: normal Normal P waves. Normal SOHAIL. Normal QRS complex. ST T wave : no JOHN, nonspecific qTC: normal prior studies: no acute ischemia The study has been interpreted contemporaneously by me. . Discharge Plan Discharge Clinical Impression: Hypoxia, COPD (chronic obstructive pulmonary disease) Prescriptions: No Action aspirin 81 mg tablet,delayed release (DR/EC) 81 mg PO DAILY RF: 0 amitriptyline 25 mg tablet 25 mg PO BEDTIME RF: 0 amlodipine 10 mg tablet 10 mg PO DAILY RF: 0 divalproex 500 mg tablet extended release 24 hr 500 mg PO DAILY RF: 0 omeprazole 20 mg capsule,delayed release(DR/EC) 20 mg PO BID@0630,1630 RF: 0 duloxetine 60 mg capsule,delayed release(DR/EC) 60 mg PO BEDTIME RF: 0 albuterol sulfate 90 mcg/actuation HFA aerosol inhaler 2 puff inhalation Q4-6H PRN (Reason: shortness of breath or wheezing) Qty: 8.5 RF: 0 metoprolol succinate 50 mg Tablet Extended Release 24 Hr 50 mg PO DAILY RF: 0 divalproex 500 mg Tablet Extended Release 24 Hr 1,000 mg PO BEDTIME RF: 0 Breo Ellipta 100-25 mcg/dose Blister With Device 1 inh INHALATION DAILY RF: 0 clonazepam 0.5 mg tablet 0.5 mg PO BID RF: 0 oxycodone-acetaminophen 10-325 mg tablet 1 tab PO 5XD PRN (Reason: Pain (Scale Score 4-6)) RF: 0 Incruse Ellipta 62.5 mcg/actuation Blister With Device 1 inh INHALATION DAILY RF: 0 hydralazine 50 mg Tablet 50 mg PO TID RF: 0 aripiprazole 2 mg Tablet 2 mg PO DAILY RF: 0 atorvastatin 20 mg Tablet 20 mg PO BEDTIME RF: 0
[2020-07-03 15:17] LABS: MANUAL DIFF FLAG NO
[2020-07-03 15:22] LABS: Basophils Absolute Auto 0.1 X10*3/uL (0.0-0.2); Basophils Percent Auto 0.4 % (0-2); Eosinophils Absolute Auto 0.1 X10*3/uL (0.0-0.4); Eosinophils Percent Auto 0.7 % (0-4); Hematocrit 34.4 % (37-47); Hemoglobin 10.4 g/dl (12.0-16.0); Imm Gran Abs Auto 0.15 X10*3/uL (0.00-0.03); Imm Gran Pct Auto 1.3 % (0.0-0.4); Lymphocytes Absolute Auto 3.1 X10*3/uL (1.2-4.9); Lymphocytes Percent Auto 25.8 % (20-40); Mean Corpuscular HGB Conc 30.2 g/dl (31.0-35.0); Mean Corpuscular Volume 92.5 fL (80-98); Mean Platelet Volume 9.1 fL (9.4-12.3); Neutrophils Absolute Auto 7.6 X10*3/uL (2.0-8.3); Neutrophils Percent Auto 63.8 % (45-73); Platelet Count 319 X10*3/uL (160-400); Red Blood Count 3.72 X10*6/uL (4.20-5.50); Red Cell Distribution Width 17.8 % (11.0-16.0); White Blood Count 11.9 X10*3/uL (4.8-10.8)
[2020-07-03 15:24] LABS: Prothrombin Time 11.6 SEC (10.8-13.0)
[2020-07-03 15:26] LABS: Partial Thromboplastin Time 41.5 SEC (24.1-38.0)
[2020-07-03 15:29] LABS: Base Excess VBG 4.7 mmol/L; HCO3 VBG 32 mmol/L; PCO2 VBG 66 mmHg; PO2 VBG 85 mmHg; pH VBG 7.29 (7.32-7.43)
--- NOTE | 2020-07-03 15:32 | PC.NURSE ---
Pt awake, alert and oriented x 3. Skin warm and dry. Resp unlabored when sitting and on oxygen. Sats 96% on 2L NC. Denies n/v. No c/o pain. Iv inserted. Labs obtained.
--- NOTE | 2020-07-03 15:33 | PC.NURSE ---
Evaluated by Dr. Willis Aware and agreeable to ED care plan
[2020-07-03 15:37] LABS: COVID-19 Test Negative (Negative); IDNOW Serial# 9DD0AD1C
[2020-07-03 15:46] LABS: Lactic Acid 1.6 mmol/L (0.5-2.0)
[2020-07-03 15:52] LABS: Alanine Aminotransferase < 6 U/L (0-31); Albumin Level 3.7 g/dL (3.5-5.0); Alkaline Phosphatase 86 U/L (39-117); Anion Gap 12 (12-20); Aspartate Amino Transferase 10 U/L (5-31); Bilirubin Direct < 0.2 mg/dL (0.0-0.5); Bilirubin Total 0.5 mg/dL (0.0-1.0); Blood Urea Nitrogen 10 mg/dL (9-16); Calcium 7.8 mg/dL (8.4-10.2); Carbon Dioxide 31 mmol/L (22-29); Chloride 103 mmol/L (96-108); Creatinine Clr Calc Pharmacy 77.4; Estimated Glomerular Filt Rate > 60; Glucose Random 94 mg/dL (60-115); Magnesium 1.6 mg/dL (1.6-2.6); Potassium 3.5 mmol/L (3.3-5.1); Sodium 142 mmol/L (135-145); Total Protein 6.2 g/dL (6.5-8.0)
[2020-07-03 15:55] LABS: Pt Ventilation O2% 2 L
[2020-07-03] MEDS: methylPREDNISolone Sod Succ/PF 125 MG/2 ML VIAL 60 MG IVPUSH (15:55)
[2020-07-03] MEDS: Furosemide 40 MG/4 ML VIAL IVPUSH (15:55)
[2020-07-03 15:56] LABS: B Type Natriuretic Peptide 107 pg/mL (<100); Troponin-I High Sensitivity 5.2 ng/L (<3.5-17.0)
[2020-07-03 15:57] LABS: Valproate 65.6 mcg/mL (50.0-100.0)
[2020-07-03 15:59] LABS: pH ABG 7.29 (7.35-7.45)
[2020-07-03 16:00] LABS: HCO3 ABG 36 mmol/L (22-26); PO2 ABG 84 mmHg (83-108)
[2020-07-03 16:01] LABS: ABG PCO2 76 mmHg (32-45)
[2020-07-03] MEDS: Albuterol Sulfate (0.083%) 2.5 MG/3 ML VIAL.NEB 5 MG INHALE (16:03)
--- NOTE | 2020-07-03 16:33 | MHC.CM.ED ---
Met with pt. A&Ox3. Very pleasant and cooperative. HCP on file. Allen() [phone]. Uses a walker and has a CPAP at home which she uses about 4 hours per noc. C/O claustrophobia.States has a shower chair, but it is too big for her shower. Pt reports she cannot have home O2 secondary to her insurance and cannot afford it. Pt has Health safety net and medicare part A. States she cannot afford Medicare part B and their combined disability income is $200 too much to qualify for Medicaid. Dr. Cowan's office is aware of this and have encouraged pt to use CPAP more consistantly. No decision to admit pt yet. Expect home without services. Will follow for d/c needs
--- NOTE | 2020-07-03 18:44 | MHC.CM.ED ---
Addendum entered by Ann Root 07/03/20 19:03: Fax to financial counselor: RE: financial assistance to obtain home O2 if needed Original Note: Pt to be admitted. IMM reviewed and signed per protocol. Consult to financial counselors might be helpful to help with obtaining home O2 if required. Resp consult to assess need for home O2 prior to d/c. D/C more than likely home without services. Was recently at [facility] in May. D/C to [facility] for STR and then had [facility]. Discharged from [facility]. Referral to [facility] to follow. Transportation home per family/friend. CM to follow for d/c needs.
[2020-07-03] MEDS: levoFLOXacin/D5W 500 MG/100 ML PIGGYBACK 100 MG IV (20:11)
--- NOTE | 2020-07-03 20:18 | PM.IMHP ---
History of Present Illness Date of Service: 07/03/20 Chief Complaint: hypoxia This is a 54-year-old female with history of COPD, recent admission in April and May for respiratory failure who presents from [facility] with hypoxia. In April for respiratory failure requiring BiPAP. She was unable to get supplemental oxygen or CPAP due to insurance issue. She was discharged to assisted facility in hopes that she was able to get oxygen from there. She was discharged with CPAP but was able to be weaned off of oxygen at SNF. Unfortunately she also contracted COVID-19 at the SNF. She was admitted again in May for respiratory failure and pneumonia, at which time her caronavirus igg was positive. She was able to be weaned off oxygen prior to discharge. She followed up with pulmonology earlier this month and was noted to be hypoxic in the clinic. Again she was up and able to obtain supplemental oxygen at home due to restrictions by her insurance company. She has been able to use her CPAP machine at home. Today she had a follow-up appointment at [facility] and was noted to be hypoxic and sent to the hospital for evaluation. She reports chronic shortness of breath, dry cough and chills. Chest CT shows hazy opacity in the right upper lobe where her previous pneumonia was. Previously documented lung of mass is also redemonstrated and biopsy is recommended. Patient has been afebrile but hypoxic on room air. She is saturating mid 90s on 2 L nasal cannula. She was treated with IV antibiotics, IV solumedrol and the decision was made to admit her for further management. Review of Systems Review of Systems: Yes all other systems are reviewed and are negative Constitutional: Constitutional: Denies fever(s) Cardiovascular: Cardiovascular: Denies chest pain and Reports dyspnea Respiratory: Respiratory: Reports cough and Reports dyspnea Gastrointestinal: Gastrointestinal: Denies abdominal pain [facility] Medical History Acute on chronic diastolic CHF (congestive heart failure) Back pain with history of spinal surgery Bipolar 1 disorder Bipolar disorder CAD (coronary artery disease) Chronic back pain COPD (chronic obstructive pulmonary disease) COPD (chronic obstructive pulmonary disease) Depression Fibromyalgia High cholesterol HTN (hypertension) Hypoventilation associated with obesity Obesity Obesity hypoventilation syndrome PTSD (post-traumatic stress disorder) Renal failure Respiratory failure with hypoxia and hypercapnia Restless legs syndrome (RLS) Rotator cuff strain Sleep disorder Smoker Functional capacity: uses cane/walker Family history: reviewed and not pertinent Surgical History H/O: hysterectomy Social History (Updated 07/03/20 @ 20:25 by JUAN Davies) Household Members: Spouse Housing: Apartment Alcohol intake: unknown Smoking Status: Current every day smoker Cigarettes Per Day: 9 Use of substances other than those prescribed or required for medical reasons: No Advance Directives: No Advance Directives Information Provided: Yes service: No Current occupational status: disabled Meds Allergies Allergy/AdvReac Type Severity Reaction Status Date / Time Penicillins Allergy Mild RASH Verified 06/23/20 14:36 venlafaxine [From Effexor] Allergy Mild RASH Verified 06/23/20 14:36 cyclobenzaprine Allergy Unknown UNKNOWN Verified 06/23/20 14:36 [Cyclobenzaprine] fentanyl [FENTANYL] Allergy Unknown HALLUCINATI Verified 06/23/20 14:36 ONS topiramate [From Topamax] Allergy Unknown UNKNOWN Verified 06/23/20 14:36 Home Medications Medication Instructions Recorded Confirmed Type amitriptyline 25 mg PO BEDTIME 04/21/20 07/03/20 History amlodipine 10 mg PO DAILY 04/21/20 07/03/20 History aspirin 81 mg PO DAILY 04/21/20 07/03/20 History divalproex 500 mg PO DAILY 04/21/20 07/03/20 History duloxetine 60 mg PO BEDTIME 04/21/20 07/03/20 History omeprazole 20 mg PO BID@0630,1630 04/21/20 07/03/20 History Breo Ellipta 1 inh INHALATION DAILY 05/26/20 07/03/20 History Incruse Ellipta 1 inh INHALATION DAILY 05/26/20 07/03/20 History aripiprazole 2 mg PO DAILY 05/26/20 07/03/20 History clonazepam 0.5 mg PO BID 05/26/20 07/03/20 History divalproex 1,000 mg PO BEDTIME 05/26/20 07/03/20 History hydralazine 50 mg PO TID 05/26/20 07/03/20 History metoprolol succinate 50 mg PO DAILY 05/26/20 07/03/20 History oxycodone-acetaminophen 1 tab PO 5XD PRN 05/26/20 07/03/20 History atorvastatin 20 mg PO BEDTIME 07/03/20 07/03/20 History Physical Exam Vital Signs and Narrative: Vital Signs: Last Vital Signs Temp 98.4 F 07/03/20 14:46 Pulse 78 07/03/20 16:08 Resp 18 07/03/20 15:58 BP 146/74 H 07/03/20 15:58 Pulse Ox 97 07/03/20 15:58 Body Mass Index 36.8 Const: General: no acute distress, alert, awake and Physically active Nutritional Appearance: overweight Orientation/consciousness: patient oriented x3 HENMT: Head: Yes normocephalic and Yes atraumatic Eyes: Sclerae: sclerae normal Chest: Chest palpation & inspection: normal inspection of the chest Resp: Effort & Inspection: able to speak in complete sentences and prolonged expiratory phase Auscultation: wheezes expiratory wheezes and scattered wheezes Cardio: Rate: regular rate Rhythm: regular rhythm GI: Palpation (GI): Soft to palpation and nontender Skin: General skin exam: no rashes or lesions noted Neuro: General: patient oriented x3 Cranial nerves: Yes CN's II-XII intact bilaterally and Yes Bilaterally intact EOM present Extrem: General: Yes normal to inspection Results Labs CBC and Chem 7: 07/03/20 15:06 07/03/20 15:06 Labs: Laboratory Results - last 24 hr 07/03/20 07/03/20 07/03/20 15:06 15:06 15:06 MCV 92.5 MCH 28.0 MCHC 30.2 L RDW 17.8 H Plt Count 319 D MPV 9.1 L Immature Gran % (Auto) 1.3 H Neut % (Auto) 63.8 Lymph % (Auto) 25.8 Curry % (Auto) 8.0 Eos % (Auto) 0.7 Baso % (Auto) 0.4 Lymph # (Auto) 3.1 Curry # (Auto) 1.0 Eos # (Auto) 0.1 Baso # (Auto) 0.1 Abs Immat Gran (auto) 0.15 H Absolute Neuts (auto) 7.6 Absolute Nucleated RBC 0.000 Nucleated RBC % (auto) 0.0 PT INR APTT ABG pH ABG pCO2 ABG pO2 ABG HCO3 ABG O2 Saturation ABG Base Excess VBG pH VBG pCO2 VBG pO2 VBG HCO3 VBG O2 Saturation VBG Base Excess Oxygen Given Anion Gap 12 Estim Creat Clear Calc 77.4 Estimated GFR > 60 Random Glucose 94 Lactic Acid Calcium 7.8 L D Magnesium 1.6 Total Bilirubin 0.5 Direct Bilirubin < 0.2 AST 10 ALT < 6 Alkaline Phosphatase 86 Troponin I High Sens B-Natriuretic Peptide 107 H Total Protein 6.2 L Albumin 3.7 Valproic Acid 65.6 COVID-19 (ANA) COVID-19 Clin Com 07/03/20 07/03/20 07/03/20 15:06 15:06 15:06 MCV MCH MCHC RDW Plt Count MPV Immature Gran % (Auto) Neut % (Auto) Lymph % (Auto) Curry % (Auto) Eos % (Auto) Baso % (Auto) Lymph # (Auto) Curry # (Auto) Eos # (Auto) Baso # (Auto) Abs Immat Gran (auto) Absolute Neuts (auto) Absolute Nucleated RBC Nucleated RBC % (auto) PT 11.6 INR 1.0 APTT 41.5 H ABG pH ABG pCO2 ABG pO2 ABG HCO3 ABG O2 Saturation ABG Base Excess VBG pH VBG pCO2 VBG pO2 VBG HCO3 VBG O2 Saturation VBG Base Excess Oxygen Given Anion Gap Estim Creat Clear Calc Estimated GFR Random Glucose Lactic Acid 1.6 Calcium Magnesium Total Bilirubin Direct Bilirubin AST ALT Alkaline Phosphatase Troponin I High Sens 5.2 B-Natriuretic Peptide Total Protein Albumin Valproic Acid COVID-19 (ANA) COVID-19 [employer] Com 07/03/20 07/03/20 07/03/20 15:07 15:20 15:50 MCV MCH MCHC RDW Plt Count MPV Immature Gran % (Auto) Neut % (Auto) Lymph % (Auto) Curry % (Auto) Eos % (Auto) Baso % (Auto) Lymph # (Auto) Curry # (Auto) Eos # (Auto) Baso # (Auto) Abs Immat Gran (auto) Absolute Neuts (auto) Absolute Nucleated RBC Nucleated RBC % (auto) PT INR APTT ABG pH 7.29 L ABG pCO2 76 H* ABG pO2 84 ABG HCO3 36 H ABG O2 Saturation 94.0 ABG Base Excess 94.0 VBG pH 7.29 L VBG pCO2 66 VBG pO2 85 VBG HCO3 32 VBG O2 Saturation 94.0 VBG Base Excess 4.7 Oxygen Given 2 L Anion Gap Estim Creat Clear Calc Estimated GFR Random Glucose Lactic Acid Calcium Magnesium Total Bilirubin Direct Bilirubin AST ALT Alkaline Phosphatase Troponin I High Sens B-Natriuretic Peptide Total Protein Albumin Valproic Acid COVID-19 (ANA) Negative COVID-19 Clin Com See Note Imaging Radiologist's Impressions: Impressions Chest CT 07/03/20 14:47 IMPRESSION: 1. Hazy airspace opacity posterior right upper lobe. 2. 2.3 cm lobular mass left lower lobe. This is a suspicious lesion. Consider tissue sampling. This result was discussed with JUAN Fallon on 07/03/2020, 5:00 PM and it was ascertained that the content and urgency of the report was understood at the time of direct communication. Assessment and Plan (1) Opacity of lung on imaging study: Status: Acute (2) Lung mass: Status: Acute (3) COPD (chronic obstructive pulmonary disease): Qualifiers: COPD type: COPD with acute exacerbation Qualified Code(s): J44.1 - Chronic obstructive pulmonary disease with (acute) exacerbation Problem details: She has history of COPD. It is of due doing well with the current regimen. However she seemed to have more of restrictive pulmonary disease. Status: Acute (4) Respiratory failure with hypoxia and hypercapnia: Problem details: She does have low O2 sat even at rest, ideally she should be on oxygen supplementation. She would not be able to get it because of lack of insurance. We are trying to reach the oxygen company and see if she there is a weighed that she can get oxygen supplementation. Status: Acute This is a 54-year-old female with history of chronic hypoxic/hypercapnic respiratory failure, COPD, hypertension, dyslipidemia, bipolar disorder sent from PCP's office with hypoxia Acute on chronic respiratory failure with hypoxia/hypercapnea COPD exacerbation Obesity hypoventilation unable to obtain home o2 due to insurance issue -cover for possible pna/copd with antibiotics -IV solumedrol -supplemental o2 to keep o2 sat 89-92% -continue home CPAP -prn breathing treatments lung mass consider oncology evaluation vs outpatient follow up for biopsy Hyperlipidemia Continue statin Hypertension Continue hydralazine, Norvasc, metoprolol Mood Continue Abilify, Depakote, duloxetine, clonazepam Chronic pain Continue oxycodone dvt ppx - mechanical devices This case was discussed with Dr. Norman
--- NOTE | 2020-07-03 22:42 | P.EN_ITS ---
Event Note Date of Service: 07/03/20 Event Note: Admission note 54 y/o female with a hx of chronic respiratory failure who presented from home due to worsening difficulty breathing. Patient has known hx of ends stage COPD requiring home oxygen and IVY on CPAP at home. Home oxygen supplementation at home has been an issue given insurance problems . Patient reports that for the past several days has been having worsening cough associated with difficulty breathing for what was sent to the ED for further evaluation. ABG on presentation showed PH of 7.29 with CO2 of 76, WBC of 11.9. Imaging of the chest consistent with RUL infectious process vs resolving PNA and a LLL mass for what is recommended follow up studies. Patient was treated with nebulizer, IV steroids and one dose of Levaquin in the ED. Decision for admission was given. Patient was seen and evaluated at the bedside, On oxygen supplementation saturating 95% on 2 liters. ROS as above otherwise negative. Physical exam as per H and P. Assessment/Plan: 1- Acute on chronic respiratory failure likely secondary to COPD exacerbation and Obesity Hypoventilation syndrome Continue with Nebulizer treatment as ordered Continue with Solumedrol IV as ordered Continue with oxygen supplementation as needed and titrate off as tolerated Continue with Rocephin and doxy for gram neg and atypical pneumonia coverage Follow up Bcx Infectious disease consult in the am 2-Lung mass Hematology oncology consult for further evaluation Rest of the plan as discussed with ACUPRESSURE THERAPIST Mini Barth per H and P.
[2020-07-03] MEDS: Acetaminophen 325 MG TABLET 650 MG PO (23:37)
[2020-07-04] VITALS (14 sets, daily range): BP systolic 80–147; BP diastolic 46–77; PULSE 78–89; RESP 15–20; TEMP 36.1–36.9; O2SAT 90–97
[2020-07-04 00:56] LABS: Pt Ventilation O2% 3 L
[2020-07-04 01:07] LABS: Base Excess ABG 7.3; HCO3 ABG 35 mmol/L (22-26); PO2 ABG 79 mmHg (83-108)
[2020-07-04 01:12] LABS: ABG PCO2 69 mmHg (32-45)
[2020-07-04] MEDS: Divalproex Sodium ER 500 MG TAB.ER.24H 1000 MG PO ×2 (02:02→20:40)
[2020-07-04] MEDS: hydrALAZINE HCl 50 MG TABLET PO ×3 (02:02→20:41)
[2020-07-04] MEDS: Atorvastatin Calcium 20 MG TABLET PO ×2 (02:03→20:41)
[2020-07-04] MEDS: clonazePAM 0.5 MG TABLET PO ×3 (02:03→20:40)
[2020-07-04] MEDS: DULoxetine HCl 60 MG CAPSULE.DR PO ×2 (02:03→20:41)
[2020-07-04] MEDS: 0.9 % Sodium Chloride Flush 3 ML SYRINGE IVFLUSH ×4 (02:05→19:46)
--- NOTE | 2020-07-04 04:00 | PC.NURSE ---
SLEEPING. REMAINS ON CPAP. 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 NO APPARENT DISTRESS AT THIS TIME.
[2020-07-04 07:06] LABS: MANUAL DIFF FLAG NO
[2020-07-04 07:17] LABS: Basophils Percent Auto 0.2 % (0-2); Hematocrit 35.1 % (37-47); Hemoglobin 10.4 g/dl (12.0-16.0); Imm Gran Abs Auto 0.09 X10*3/uL (0.00-0.03); Imm Gran Pct Auto 0.8 % (0.0-0.4); Lymphocytes Absolute Auto 1.1 X10*3/uL (1.2-4.9); Lymphocytes Percent Auto 10.7 % (20-40); Mean Corpuscular HGB Conc 29.6 g/dl (31.0-35.0); Mean Corpuscular Hemoglobin 27.4 pg (27.0-33.0); Mean Corpuscular Volume 92.4 fL (80-98); Mean Platelet Volume 9.1 fL (9.4-12.3); Monocytes Absolute Auto 0.3 X10*3/uL (0.1-1.2); Monocytes Percent Auto 2.7 % (2-11); Neutrophils Absolute Auto 9.1 X10*3/uL (2.0-8.3); Neutrophils Percent Auto 85.6 % (45-73); Platelet Count 325 X10*3/uL (160-400); Red Cell Distribution Width 17.4 % (11.0-16.0); White Blood Count 10.7 X10*3/uL (4.8-10.8)
[2020-07-04] MEDS: cefTRIAXone sodium 1 GM in 0.9 % Sodium Chloride 50 ML IV (07:19)
[2020-07-04] MEDS: Omeprazole 20 MG CAPSULE.DR PO ×2 (07:19→16:42)
[2020-07-04] MEDS: oxyCODONE HCl Immed Release 5 MG TABLET 10 MG PO ×3 (07:48→21:02)
[2020-07-04] MEDS: Doxycycline Hyclate 100 MG in 0.9 % Sodium Chloride 250 ML 166.67 MG IV ×2 (07:48→19:46)
[2020-07-04 07:50] LABS: Anion Gap 16 (12-20); Blood Urea Nitrogen 17 mg/dL (9-16); Calcium 7.8 mg/dL (8.4-10.2); Carbon Dioxide 28 mmol/L (22-29); Chloride 101 mmol/L (96-108); Creatinine Clr Calc Pharmacy 73.4; Estimated Glomerular Filt Rate 59; Glucose Random 124 mg/dL (60-115); Potassium 4.3 mmol/L (3.3-5.1); Sodium 141 mmol/L (135-145)
[2020-07-04] MEDS: ARIPiprazole 2 MG TABLET PO (09:25)
[2020-07-04] MEDS: Divalproex Sodium ER 500 MG TAB.ER.24H PO (09:29)
--- NOTE | 2020-07-04 09:39 | PC.NURSE ---
pt awake, oriented and sitting up in chair. She has low BP. Will notify hospitalist
[2020-07-04] MEDS: Acetaminophen 325 MG TABLET 650 MG PO ×3 (10:08→23:13)
--- NOTE | 2020-07-04 12:45 | HO.PM.IMPN ---
Subjective Subjective Date of Service: 07/04/20 Interval History: Seen in f/u for acute on chronic hypoxia , feel better Review of Systems Gen: no fever Resp: +sob, no cough CV: no chest, no DUNN, no leg edema GI: No n/v, no abd pain Neuro: No confusion Physical Exam Vital Signs: Vital Signs: Last Vital Signs Temp 98.4 F 07/04/20 01:57 Pulse 84 07/04/20 12:22 Resp 16 07/04/20 12:22 BP 142/77 H 07/04/20 12:22 Pulse Ox 94 07/04/20 12:22 Body Mass Index 36.8 Const: General: no acute distress, alert, awake and Physically active Nutritional Appearance: overweight Orientation/consciousness: patient oriented x3 HENMT: Head: Yes normocephalic and Yes atraumatic Eyes: Sclerae: sclerae normal Chest: Chest palpation & inspection: normal inspection of the chest Resp: Effort & Inspection: able to speak in complete sentences and prolonged expiratory phase Auscultation: wheezes expiratory wheezes and scattered wheezes Cardio: Rate: regular rate Rhythm: regular rhythm GI: Palpation (GI): Soft to palpation and nontender Skin: General skin exam: no rashes or lesions noted Neuro: General: patient oriented x3 Cranial nerves: Yes CN's II-XII intact bilaterally and Yes Bilaterally intact EOM present Extrem: General: Yes normal to inspection Objective Data Current Medications Generic Name Dose Route Start Last Admin Trade Name Freq PRN Reason Stop Dose Admin Acetaminophen 650 mg 07/04/20 01:04 07/04/20 10:08 Acetaminophen 325 Mg Tablet PO 650 mg Q6H PRN Administration Pain, Mild (Pain Scale 1-3) Albuterol Sulfate 2.5 mg 07/04/20 01:04 Albuterol Sulfate (0.083%) 2.5 Mg/3 Ml Vial.Neb INHALE RQ4H PRN Shortness of Breath Amitriptyline HCl 25 mg 07/04/20 01:04 07/04/20 02:04 Amitriptyline Hcl 25 Mg Tablet PO Not Given BEDTIME LONG Amlodipine Besylate 10 mg 07/04/20 09:00 07/04/20 09:27 Amlodipine Besylate 10 Mg Tablet PO Not Given DAILY LONG Protocol Aripiprazole 2 mg 07/04/20 09:00 07/04/20 09:25 Aripiprazole 2 Mg Tablet PO 2 mg DAILY LONG Administration Atorvastatin Calcium 20 mg 07/04/20 01:04 07/04/20 02:03 Atorvastatin Calcium 20 Mg Tablet PO 20 mg BEDTIME LONG Administration Clonazepam 0.5 mg 07/04/20 01:04 07/04/20 09:25 Clonazepam 0.5 Mg Tablet PO 0.5 mg BID LONG Administration Divalproex Sodium 500 mg 07/04/20 09:00 07/04/20 09:29 Divalproex Sodium Er 500 Mg Tab.Er.24h PO 500 mg DAILY LONG Administration Divalproex Sodium 1,000 mg 07/04/20 01:04 07/04/20 02:02 Divalproex Sodium Er 500 Mg Tab.Er.24h PO 1,000 mg BEDTIME LONG Administration Docusate Sodium 100 mg 07/04/20 01:04 Docusate Sodium 100 Mg Capsule PO DAILY PRN Constipation Duloxetine HCl 60 mg 07/04/20 01:04 07/04/20 02:03 Duloxetine Hcl 60 Mg Capsule.Dr PO 60 mg BEDTIME LONG Administration Fluticasone/Vilanterol 1 puff 07/04/20 09:00 07/04/20 08:01 Fluticasone/Vilanterol 100/25 Blst.W.Dev INHALE Not Given DAILY LONG Hydralazine HCl 50 mg 07/04/20 01:04 07/04/20 09:28 Hydralazine Hcl 50 Mg Tablet PO Not Given TID LONG Protocol Ceftriaxone Sodium 1 gm/ 50 mls @ 100 mls/hr 07/04/20 07:00 07/04/20 09:16 Sodium Chloride IV Infused Q24H LONG Infusion Doxycycline Hyclate 100 mg/ 250 mls @ 166.67 mls/hr 07/04/20 07:00 07/04/20 09:29 Sodium Chloride IV Infused Q12H LONG Infusion Methylprednisolone Sodium Succinate 40 mg 07/03/20 20:30 07/04/20 07:48 Methylprednisolone Sod Succ/Pf 40 Mg/Ml Vial IVPUSH 40 mg Q12H LONG Administration Metoprolol Succinate 50 mg 07/04/20 09:00 07/04/20 09:26 Metoprolol Succinate Er 50 Mg Tab.Er.24h PO Not Given DAILY LONG Protocol Non-Formulary Medication 1 inhalation 07/04/20 09:00 Umeclidinium [Incruse Ellipta] INHALE DAILY [facility] Omeprazole 20 mg 07/04/20 06:30 07/04/20 07:19 Omeprazole 20 Mg Capsule. PO 20 mg BID@0630,1630 LONG Administration Ondansetron HCl 4 mg 07/04/20 01:04 Ondansetron Hcl 4 Mg/2 Ml Vial IVPUSH Q8H PRN Nausea and Vomiting Oxycodone HCl 10 mg 07/04/20 02:07 07/04/20 07:48 Oxycodone Hcl Immed Release 5 Mg Tablet PO 10 mg 5XD PRN Administration Pain (Scale Score 4-6) Pharmacy Consult 1 each 07/03/20 14:46 Consult Rx Perform Med Rec MISCELLANE ONCE PRN Consult order Sodium Chloride 3 ml 07/04/20 01:04 07/04/20 07:55 0.9 % Sodium Chloride Flush 3 Ml Syringe IVFLUSH 3 ml QSHIFT LONG Administration Labs CBC & Chem 7: 07/04/20 06:52 07/04/20 06:52 Assessment and Plan (1) Opacity of lung on imaging study: Status: Acute (2) Lung mass: Status: Acute (3) COPD (chronic obstructive pulmonary disease): Problem details: She has a history of COPD. It is of due doing well with the current regimen. However, she seemed to have more of restrictive pulmonary disease. --Dr. Cowan's assessment office Status: Acute (4) Respiratory failure with hypoxia and hypercapnia: Problem details: She does have low O2 sat even at rest, ideally she should be on oxygen supplementation. She would not be able to get it because of lack of insurance. We are tryin--g to reach the oxygen company and see if she there is a weighed that she can get oxygen supplementation. --Dr. Cowan's assessment from office Status: Acute Assessment and Plan: 54-year-old female with history of chronic hypoxic/hypercapnic respiratory failure, COPD, hypertension, dyslipidemia, bipolar disorder sent from PCP's office with hypoxia Acute on chronic respiratory failure with hypoxia/hypercapnea COPD exacerbation Obesity hypoventilation unable to obtain home o2 due to insurance issue -cover for possible pna/copd with antibiotics -IV solumedrol -supplemental o2 to keep o2 sat 89-92% -continue home CPAP -prn breathing treatments lung mass consider oncology evaluation vs outpatient follow up for biopsy IR guided bx on Monday Hyperlipidemia Continue statin Hypertension Continue hydralazine, Norvasc, metoprolol Mood Continue Abilify, Depakote, duloxetine, clonazepam Chronic pain Continue oxycodone dvt ppx - mechanical devices
[2020-07-04] MEDS: Amitriptyline HCl 25 MG TABLET PO (20:40)
--- NOTE | 2020-07-04 22:28 | P.CNID_ITS ---
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 supposed to get worked up She has had multiple antibiotics/admissions last 3-4 months She has no purulence or fever She has some oxygen needs Review of Systems Cardiovascular: Cardiovascular: Reports dyspnea and Reports dyspnea on exertion Respiratory: Respiratory: Reports dyspnea and Reports dyspnea on exertion [facility] Past Medical History Medical History Acute on chronic diastolic CHF (congestive heart failure) Back pain with history of spinal surgery Bipolar 1 disorder Bipolar disorder CAD (coronary artery disease) Chronic back pain COPD (chronic obstructive pulmonary disease) COPD (chronic obstructive pulmonary disease) Depression Fibromyalgia High cholesterol HTN (hypertension) Hypoventilation associated with obesity Obesity Obesity hypoventilation syndrome PTSD (post-traumatic stress disorder) Renal failure Respiratory failure with hypoxia and hypercapnia Restless legs syndrome (RLS) Rotator cuff strain Sleep disorder Smoker Functional capacity: uses cane/walker Family History Family history: reviewed and not pertinent Surgical History Surgical History H/O: hysterectomy Social History Social History Household Members: Spouse Housing: Apartment Do you presently have visiting nurse or other home services: No Alcohol intake: unknown Smoking Status: Former smoker Tobacco Type: Cigarette Cigarettes Per Day: 9 Smoked in Last 30 Days: Yes Patient Interested in Nicotine Replacement: No Patient Given Instructions on How to Stop Smoking: Yes Date Education Initiated: 07/04/20 Second Hand Smoke Exposure: Yes Use of substances other than those prescribed or required for medical reasons: No Currently Displaying Signs/Symptoms of Drug Intoxication Withdrawal: No Have you been hit, kicked, punched, or otherwise hurt by someone within the past year? If so, by whom?: No Do you feel safe in your current relationship?: Yes Is there a partner from a previous relationship who is making you feel unsafe now?: No Are you made to feel afraid or neglected: No Advance Directives: No Advance Directives Information Provided: Yes Advance Directives on File: No Do you have thoughts of harming others: None Do you have a plan to hurt others: No Plan Recently lost weight without trying: No service: No Current occupational status: disabled Meds Allergies Allergy/AdvReac Type Severity Reaction Status Date / Time Penicillins Allergy Mild RASH Verified 06/23/20 14:36 venlafaxine [From Effexor] Allergy Mild RASH Verified 06/23/20 14:36 cyclobenzaprine Allergy Unknown UNKNOWN Verified 06/23/20 14:36 [Cyclobenzaprine] fentanyl [FENTANYL] Allergy Unknown HALLUCINATI Verified 06/23/20 14:36 ONS topiramate [From Topamax] Allergy Unknown UNKNOWN Verified 06/23/20 14:36 Home Medications Medication Instructions Recorded Confirmed Type amitriptyline 25 mg PO BEDTIME 04/21/20 07/03/20 History amlodipine 10 mg PO DAILY 04/21/20 07/03/20 History aspirin 81 mg PO DAILY 04/21/20 07/03/20 History divalproex 500 mg PO DAILY 04/21/20 07/03/20 History duloxetine 60 mg PO BEDTIME 04/21/20 07/03/20 History omeprazole 20 mg PO BID@0630,1630 04/21/20 07/03/20 History Breo Ellipta 1 inh INHALATION DAILY 05/26/20 07/03/20 History Incruse Ellipta 1 inh INHALATION DAILY 05/26/20 07/03/20 History aripiprazole 2 mg PO DAILY 05/26/20 07/03/20 History clonazepam 0.5 mg PO BID 05/26/20 07/03/20 History divalproex 1,000 mg PO BEDTIME 05/26/20 07/03/20 History hydralazine 50 mg PO TID 05/26/20 07/03/20 History metoprolol succinate 50 mg PO DAILY 05/26/20 07/03/20 History oxycodone-acetaminophen 1 tab PO 5XD PRN 05/26/20 07/03/20 History atorvastatin 20 mg PO BEDTIME 07/03/20 07/03/20 History Physical Exam Vital Signs: Vital Signs: Last Vital Signs Temp 96.9 F 07/04/20 20:00 Pulse 84 07/04/20 20:41 Resp 20 07/04/20 20:00 BP 147/75 H 07/04/20 20:41 Pulse Ox 97 07/04/20 20:00 Body Mass Index 36.8 Const: General: cooperative HENMT: Head: Yes normal to inspection Mouth: Normal oral and palatal mucosa present Resp: Effort & Inspection: tachypneic Cardio: Rate: regular rate Rhythm: regular rhythm GI: Palpation (GI): Soft to palpation and nontender Skin: General skin exam: no rashes or lesions noted Extrem: General: Yes normal to inspection Assessment and Plan (1) Lung mass: Status: Acute (2) Respiratory failure with hypoxia and hypercapnia: Problem details: She does have low O2 sat even at rest, ideally she should be on oxygen supplementation. She would not be able to get it because of lack of insurance. We are tryin--g to reach the oxygen company and see if she there is a weighed that she can get oxygen supplementation. --Dr. Cowan's assessment from office Seems persistent COPD rather than recurrent pneumonia due to insurance issues unable to get oxygen Probable bronchiectasis,early pneumonia, no COVID Status: Acute Continue Ceftriaxone and Doxycycline 3 days likely and then po Ceftin and Doxycycline for total week Check procalcitonin F/U Pulmonary lung mass Results Labs CBC & Chem 7: 07/04/20 06:52 07/04/20 06:52 Labs: Short CBC 07/04/20 Range/Units 06:52 WBC 10.7 (4.8-10.8) X10*3/uL Hgb 10.4 L (12.0-16.0) g/dl Hct 35.1 L (37-47) % Plt Count 325 (160-400) X10*3/uL BMP 07/04/20 06:52 Sodium 141 Potassium 4.3 D Chloride 101 Carbon Dioxide 28 BUN 17 H D Creatinine 0.97 Calcium 7.8 L Microbiology Microbiology Results: Microbiology 07/03/20 15:20 Blood - Venous Blood Culture - Preliminary No growth after 24 hours. 07/03/20 15:07 Blood - Venous Blood Culture - Preliminary No growth after 24 hours.
[2020-07-05] VITALS (12 sets, daily range): BP systolic 114–152; BP diastolic 50–69; PULSE 74–91; RESP 16–20; TEMP 36.4–36.8; O2SAT 91–99
[2020-07-05] MEDS: cefTRIAXone sodium 1 GM in 0.9 % Sodium Chloride 50 ML IV (06:16)
[2020-07-05] MEDS: Omeprazole 20 MG CAPSULE.DR PO ×2 (06:24→16:01)
[2020-07-05] MEDS: Doxycycline Hyclate 100 MG in 0.9 % Sodium Chloride 250 ML 166.67 MG IV ×2 (07:05→18:23)
[2020-07-05] MEDS: 0.9 % Sodium Chloride Flush 3 ML SYRINGE IVFLUSH ×3 (08:42→22:18)
[2020-07-05] MEDS: amLODIPine Besylate 10 MG TABLET PO (08:45)
[2020-07-05] MEDS: oxyCODONE HCl Immed Release 5 MG TABLET 10 MG PO ×3 (08:45→20:19)
[2020-07-05] MEDS: Metoprolol Succinate ER 50 MG TAB.ER.24H PO (08:45)
[2020-07-05] MEDS: ARIPiprazole 2 MG TABLET PO (08:46)
[2020-07-05] MEDS: clonazePAM 0.5 MG TABLET PO ×2 (08:46→20:20)
[2020-07-05] MEDS: hydrALAZINE HCl 50 MG TABLET PO ×3 (08:46→20:18)
[2020-07-05] MEDS: Divalproex Sodium ER 500 MG TAB.ER.24H PO (08:46)
--- NOTE | 2020-07-05 11:13 | HO.PM.IMPN ---
Subjective Subjective Date of Service: 07/05/20 Interval History: Seen in f/u for acute on chronic hypoxia. No change Review of Systems Gen: no fever Resp: +sob, no cough CV: no chest, no DUNN, no leg edema GI: No n/v, no abd pain Neuro: No confusion Physical Exam Vital Signs: Vital Signs: Last Vital Signs Temp 97.8 F 07/05/20 06:57 Pulse 78 07/05/20 08:46 Resp 19 07/05/20 06:57 BP 121/50 L 07/05/20 08:46 Pulse Ox 92 07/05/20 06:57 Body Mass Index 36.8 Const: General: no acute distress, alert, awake and Physically active Nutritional Appearance: overweight Orientation/consciousness: patient oriented x3 Eyes: Sclerae: sclerae normal Chest: Chest palpation & inspection: normal inspection of the chest Resp: Effort & Inspection: able to speak in complete sentences and prolonged expiratory phase Auscultation: wheezes expiratory wheezes and scattered wheezes Cardio: Rate: regular rate Rhythm: regular rhythm GI: Palpation (GI): Soft to palpation and nontender Skin: General skin exam: no rashes or lesions noted Neuro: General: patient oriented x3 Extrem: General: Yes normal to inspection Objective Data Current Medications Generic Name Dose Route Start Last Admin Trade Name Freq PRN Reason Stop Dose Admin Acetaminophen 650 mg 07/04/20 01:04 07/04/20 23:13 Acetaminophen 325 Mg Tablet PO 650 mg Q6H PRN Administration Pain, Mild (Pain Scale 1-3) Albuterol Sulfate 2.5 mg 07/04/20 01:04 Albuterol Sulfate (0.083%) 2.5 Mg/3 Ml Vial.Neb INHALE RQ4H PRN Shortness of Breath Amitriptyline HCl 25 mg 07/04/20 01:04 07/04/20 20:40 Amitriptyline Hcl 25 Mg Tablet PO 25 mg BEDTIME LONG Administration Amlodipine Besylate 10 mg 07/04/20 09:00 07/05/20 08:45 Amlodipine Besylate 10 Mg Tablet PO 10 mg DAILY LONG Administration Protocol Aripiprazole 2 mg 07/04/20 09:00 07/05/20 08:46 Aripiprazole 2 Mg Tablet PO 2 mg DAILY LONG Administration Atorvastatin Calcium 20 mg 07/04/20 01:04 07/04/20 20:41 Atorvastatin Calcium 20 Mg Tablet PO 20 mg BEDTIME LONG Administration Clonazepam 0.5 mg 07/04/20 01:04 07/05/20 08:46 Clonazepam 0.5 Mg Tablet PO 0.5 mg BID LONG Administration Divalproex Sodium 500 mg 07/04/20 09:00 07/05/20 08:46 Divalproex Sodium Er 500 Mg Tab.Er.24h PO 500 mg DAILY LONG Administration Divalproex Sodium 1,000 mg 07/04/20 01:04 07/04/20 20:40 Divalproex Sodium Er 500 Mg Tab.Er.24h PO 1,000 mg BEDTIME LONG Administration Docusate Sodium 100 mg 07/04/20 01:04 Docusate Sodium 100 Mg Capsule PO DAILY PRN Constipation Duloxetine HCl 60 mg 07/04/20 01:04 07/04/20 20:41 Duloxetine Hcl 60 Mg Capsule.Dr PO 60 mg BEDTIME LONG Administration Fluticasone/Vilanterol 1 puff 07/04/20 09:00 07/05/20 07:59 Fluticasone/Vilanterol 100/25 Blst.W.Dev INHALE Not Given DAILY LONG Hydralazine HCl 50 mg 07/04/20 01:04 07/05/20 08:46 Hydralazine Hcl 50 Mg Tablet PO 50 mg TID LONG Administration Protocol Ceftriaxone Sodium 1 gm/ 50 mls @ 100 mls/hr 07/04/20 07:00 07/05/20 07:06 Sodium Chloride IV Infused Q24H LONG Infusion Doxycycline Hyclate 100 mg/ 250 mls @ 166.67 mls/hr 07/04/20 07:00 07/05/20 08:47 Sodium Chloride IV Infused Q12H LONG Infusion Methylprednisolone Sodium Succinate 40 mg 07/03/20 20:30 07/05/20 08:45 Methylprednisolone Sod Succ/Pf 40 Mg/Ml Vial IVPUSH 40 mg Q12H LONG Administration Metoprolol Succinate 50 mg 07/04/20 09:00 07/05/20 08:45 Metoprolol Succinate Er 50 Mg Tab.Er.24h PO 50 mg DAILY LONG Administration Protocol Non-Formulary Medication 1 inhalation 07/04/20 09:00 Umeclidinium [Incruse Ellipta] INHALE DAILY LONG Omeprazole 20 mg 07/04/20 06:30 07/05/20 06:24 Omeprazole 20 Mg Capsule. PO 20 mg BID@0630,5330 LONG Administration Ondansetron HCl 4 mg 07/04/20 01:04 Ondansetron Hcl 4 Mg/2 Ml Vial IVPUSH Q8H PRN Nausea and Vomiting Oxycodone HCl 10 mg 07/04/20 02:07 07/05/20 08:45 Oxycodone Hcl Immed Release 5 Mg Tablet PO 10 mg 5XD PRN Administration Pain (Scale Score 4-6) Pharmacy Consult 1 each 07/03/20 14:46 Consult Rx Perform Med Rec MISCELLANE ONCE PRN Consult order Sodium Chloride 3 ml 07/04/20 01:04 07/05/20 08:42 0.9 % Sodium Chloride Flush 3 Ml Syringe IVFLUSH 3 ml QSHIFT LONG Administration Labs CBC & Chem 7: 07/04/20 06:52 07/04/20 06:52 Microbiology Microbiology Results: Microbiology 07/03/20 15:20 Blood - Venous Blood Culture - Preliminary No growth after 24 hours. 07/03/20 15:07 Blood - Venous Blood Culture - Preliminary No growth after 24 hours. Assessment and Plan (1) Opacity of lung on imaging study: Status: Acute (2) Lung mass: Status: Acute (3) COPD (chronic obstructive pulmonary disease): Problem details: She has a history of COPD. It is of due doing well with the current regimen. However, she seemed to have more of restrictive pulmonary disease. --Dr. Cowan's assessment office Status: Acute (4) Respiratory failure with hypoxia and hypercapnia: Problem details: She does have low O2 sat even at rest, ideally she should be on oxygen supplementation. She would not be able to get it because of lack of insurance. We are tryin--g to reach the oxygen company and see if she there is a weighed that she can get oxygen supplementation. --Dr. Cowan's assessment from office Status: Acute Assessment and Plan: 54-year-old female with history of chronic hypoxic/hypercapnic respiratory failure, COPD, hypertension, dyslipidemia, bipolar disorder sent from PCP's office with hypoxia Acute on chronic respiratory failure with hypoxia/hypercapnea COPD exacerbation Obesity hypoventilation unable to obtain home o2 due to insurance issue -cover for possible pna/copd with antibiotics -IV solumedrol -supplemental o2 to keep o2 sat 89-92% -continue home CPAP -prn breathing treatments -case management to assist with insurance so hopefully she can get O2 at home lung mass consider oncology evaluation vs outpatient follow up for biopsy IR guided bx on Monday Hyperlipidemia Continue statin Hypertension Continue hydralazine, Norvasc, metoprolol Mood Continue Abilify, Depakote, duloxetine, clonazepam Chronic pain Continue oxycodone dvt ppx - mechanical devices
[2020-07-05] MEDS: Acetaminophen 325 MG TABLET 650 MG PO ×2 (12:14→22:16)
[2020-07-05] MEDS: Albuterol Sulfate (0.083%) 2.5 MG/3 ML VIAL.NEB INHALE (15:29)
[2020-07-05] MEDS: Divalproex Sodium ER 500 MG TAB.ER.24H 1000 MG PO (20:20)
[2020-07-05] MEDS: Amitriptyline HCl 25 MG TABLET PO (20:20)
[2020-07-05] MEDS: Atorvastatin Calcium 20 MG TABLET PO (20:20)
[2020-07-05] MEDS: DULoxetine HCl 60 MG CAPSULE.DR PO (20:20)
[2020-07-05 21:29] LABS: Procalcitonin < 0.02 ng/mL
[2020-07-06] VITALS (12 sets, daily range): BP systolic 137–178; BP diastolic 71–86; PULSE 68–90; RESP 16–20; TEMP 36–36.9; O2SAT 91–97; BMI 36.8
[2020-07-06] MEDS: Omeprazole 20 MG CAPSULE.DR PO ×2 (06:14→15:22)
[2020-07-06] MEDS: cefTRIAXone sodium 1 GM in 0.9 % Sodium Chloride 50 ML IV (06:20)
[2020-07-06] MEDS: oxyCODONE HCl Immed Release 5 MG TABLET 10 MG PO ×3 (06:21→20:49)
[2020-07-06] MEDS: Doxycycline Hyclate 100 MG in 0.9 % Sodium Chloride 250 ML 166.67 MG IV ×2 (06:54→18:51)
[2020-07-06] MEDS: Fluticasone/Vilanterol 100/25 BLST.W.DEV 1 PUFF INHALE (08:47)
[2020-07-06] MEDS: amLODIPine Besylate 10 MG TABLET PO (09:00)
[2020-07-06] MEDS: Metoprolol Succinate ER 50 MG TAB.ER.24H PO (09:01)
[2020-07-06] MEDS: ARIPiprazole 2 MG TABLET PO (09:01)
[2020-07-06] MEDS: hydrALAZINE HCl 50 MG TABLET PO ×3 (09:02→20:44)
[2020-07-06] MEDS: Divalproex Sodium ER 500 MG TAB.ER.24H PO (09:02)
[2020-07-06] MEDS: clonazePAM 0.5 MG TABLET PO ×2 (09:02→20:43)
[2020-07-06] MEDS: 0.9 % Sodium Chloride Flush 3 ML SYRINGE IVFLUSH ×3 (09:04→20:44)
[2020-07-06] MEDS: Docusate Sodium 100 MG CAPSULE PO (10:46)
[2020-07-06] MEDS: Acetaminophen 325 MG TABLET 650 MG PO ×2 (12:47→23:45)
--- NOTE | 2020-07-06 15:07 | P.PNIM_ITS ---
Subjective Subjective Date of Service: 07/06/20 Interval History: dyspnea improved remains on 2L O2 via [place] no fever no chest pain wishes to proceed with biopsy of lung mass known since Nov; unable to get outpt biopsy Physical Exam Vital Signs: Vital Signs: Last Vital Signs Temp 96.8 F 07/06/20 11:41 Pulse 85 07/06/20 11:41 Resp 17 07/06/20 11:41 BP 147/71 H 07/06/20 11:41 Pulse Ox 94 07/06/20 11:41 Body Mass Index 36.8 Gen: in no acute distress HEENT: sclera anicteric, moist mucus membranes Neck: supple Lungs: soft end-exp wheezes at bases bilaterally Heart: regular rate and rhythm, no murmurs Abd: obese, soft, non-tender, non-distended Ext: no edema Skin: warm/well-perfused Neuro: alert and oriented x3, no focal findings Psych: appropriate affect Objective Data Current Medications Generic Name Dose Route Start Last Admin Trade Name Freq PRN Reason Stop Dose Admin Acetaminophen 650 mg 07/04/20 01:04 07/06/20 12:47 Acetaminophen 325 Mg Tablet PO 650 mg Q6H PRN Administration Pain, Mild (Pain Scale 1-3) Albuterol Sulfate 2.5 mg 07/04/20 01:04 07/05/20 15:29 Albuterol Sulfate (0.083%) 2.5 Mg/3 Ml Vial.Neb INHALE 2.5 mg RQ4H PRN Administration Shortness of Breath Amitriptyline HCl 25 mg 07/04/20 01:04 07/05/20 20:20 Amitriptyline Hcl 25 Mg Tablet PO 25 mg BEDTIME LONG Administration Amlodipine Besylate 10 mg 07/04/20 09:00 07/06/20 09:00 Amlodipine Besylate 10 Mg Tablet PO 10 mg DAILY LONG Administration Protocol Aripiprazole 2 mg 07/04/20 09:00 07/06/20 09:01 Aripiprazole 2 Mg Tablet PO 2 mg DAILY LONG Administration Atorvastatin Calcium 20 mg 07/04/20 01:04 07/05/20 20:20 Atorvastatin Calcium 20 Mg Tablet PO 20 mg BEDTIME LONG Administration Clonazepam 0.5 mg 07/04/20 01:04 07/06/20 09:02 Clonazepam 0.5 Mg Tablet PO 0.5 mg BID LONG Administration Divalproex Sodium 500 mg 07/04/20 09:00 07/06/20 09:02 Divalproex Sodium Er 500 Mg Tab.Er.24h PO 500 mg DAILY LONG Administration Divalproex Sodium 1,000 mg 07/04/20 01:04 07/05/20 20:20 Divalproex Sodium Er 500 Mg Tab.Er.24h PO 1,000 mg BEDTIME LONG Administration Docusate Sodium 100 mg 07/04/20 01:04 07/06/20 10:46 Docusate Sodium 100 Mg Capsule PO 100 mg DAILY PRN Administration Constipation Duloxetine HCl 60 mg 07/04/20 01:04 07/05/20 20:20 Duloxetine Hcl 60 Mg Capsule. PO 60 mg BEDTIME LONG Administration Fluticasone/Vilanterol 1 puff 07/04/20 09:00 07/06/20 08:47 Fluticasone/Vilanterol 100/25 Blst.W.Dev INHALE 1 puff DAILY LONG Administration Hydralazine HCl 50 mg 07/04/20 01:04 07/06/20 09:02 Hydralazine Hcl 50 Mg Tablet PO 50 mg TID LONG Administration Protocol Ceftriaxone Sodium 1 gm/ 50 mls @ 100 mls/hr 07/04/20 07:00 07/06/20 06:52 Sodium Chloride IV Infused Q24H LNOG Infusion Doxycycline Hyclate 100 mg/ 250 mls @ 166.67 mls/hr 07/04/20 07:00 07/06/20 0 9:16 Sodium Chloride IV Infused Q12H LONG Infusion Methylprednisolone Sodium Succinate 40 mg 07/03/20 20:30 07/06/20 09:06 Methylprednisolone Sod Succ/Pf 40 Mg/Ml Vial IVPUSH 40 mg Q12H LONG Administration Metoprolol Succinate 50 mg 07/04/20 09:00 07/06/20 09:01 Metoprolol Succinate Er 50 Mg Tab.Er.24h PO 50 mg DAILY LONG Administration Protocol Non-Formulary Medication 1 inhalation 07/04/20 09:00 Umeclidinium [Incruse Ellipta] INHALE DAILY LONG Omeprazole 20 mg 07/04/20 06:30 07/06/20 06:14 Omeprazole 20 Mg Capsule. PO 20 mg BID@0230,1630 LONG Administration Ondansetron HCl 4 mg 07/04/20 01:04 Ondansetron Hcl 4 Mg/2 Ml Vial IVPUSH Q8H PRN Nausea and Vomiting Oxycodone HCl 10 mg 07/04/20 02:07 07/06/20 06:21 Oxycodone Hcl Immed Release 5 Mg Tablet PO 10 mg 5XD PRN Administration Pain (Scale Score 4-6) Pharmacy Consult 1 each 07/03/20 14:46 Consult Rx Perform Med Rec MISCELLANE ONCE PRN Consult order Sodium Chloride 3 ml 07/04/20 01:04 07/06/20 09:04 0.9 % Sodium Chloride Flush 3 Ml Syringe IVFLUSH 3 ml QSHIFT LONG Administration Labs CBC & Chem 7: 07/04/20 06:52 07/04/20 06:52 Labs: Laboratory Results - last 24 hr 07/05/20 20:38 Procalcitonin < 0.02 Microbiology Microbiology Results: Microbiology 07/03/20 15:20 Blood - Venous Blood Culture - Preliminary No growth after 48 hours. 07/03/20 15:07 Blood - Venous Blood Culture - Preliminary No growth after 48 hours. Assessment and Plan (1) Opacity of lung on imaging study: Status: Acute (2) Lung mass: Status: Acute (3) COPD (chronic obstructive pulmonary disease): Status: Acute (4) Respiratory failure with hypoxia and hypercapnia: Status: Acute Assessment and Plan: hospital d#4 55yo F with COPD, OHS, lung mass, chronic hypoxic/hypercapneic respiratory failure unable to get home O2, HTN, dyslipidemia, bipolar disorder sent in from PCP office due to hypoxia # LLL mass, suspicious - CT-guided biopsy in am, NPO after midnight # PNA - ceftriaxone + doxycycline d#09/09 # COPD exacerbation - steroids d#09/07, prn bronchodilators, continue ICS/LABA + LAMA # IVY - continue home CPAP # chronic hypoxic/hypercapneic respiratory failure - case mgmt + outpt pulmology office working with insurance to get her home O2 # dyslipidemia - continue statin # HTN - continue amlodipine, metoprolol, hydralazine # mood disorder - continue aripiprazole, valproate, duloxetine, clonazepam # chronic pain - continue oxycodone # VTE ppx - SCDs
--- NOTE | 2020-07-06 16:32 | MHC.CM.PN ---
ACCORDING TO CONVERSATION WITH [facility] FINANCIAL COUNSELOR, PATIENT WILL REMAIN WITH [employer]. THERE IS AN EXTRA STEP PATIENT NEEDS TO TAKE IF SHE WANTS TO UPGRADE TO [facility] STANDARD, AND PATIENT HAS THAT INFORMATION. PATIENT HAS BEEN ADVISED TO FOLLOW UP WITH [facility] FINANCE COUNSELOR AFTER DISCHARGE ONCE SHE COMPLETES THIS TASK.
[2020-07-06] MEDS: Divalproex Sodium ER 500 MG TAB.ER.24H 1000 MG PO (20:43)
[2020-07-06] MEDS: DULoxetine HCl 60 MG CAPSULE.DR PO (20:43)
[2020-07-06] MEDS: Amitriptyline HCl 25 MG TABLET PO (20:44)
[2020-07-06] MEDS: Atorvastatin Calcium 20 MG TABLET PO (20:44)
[2020-07-07] VITALS (10 sets, daily range): BP systolic 115–167; BP diastolic 63–85; PULSE 70–82; RESP 18–20; TEMP 35.9–36.8; O2SAT 90–95
--- NOTE | 2020-07-07 | XR_ITS ---
EXAMINATION: XR CHEST CLINICAL INFORMATION: Post lung biopsy COMPARISON: Previous chest x-ray most recent 05/29/2020 TECHNIQUE: Frontal view of the chest was obtained. FINDINGS: The cardiac and mediastinal contours are stable. The left lower lobe nodule is difficult to appreciate. There is increased attenuation at the left lung base. This may represent some postbiopsy hemorrhage. The right lung is clear. There is blunting at the left lateral costophrenic angle questionable for a very small left pleural effusion. There is no right pleural effusion. There is no pneumothorax. There are degenerative changes of the spine. XR/XR chest 1V IMPRESSION: No pneumothorax post left lung biopsy. Increased attenuation at the left lung base questionable for small amount of postbiopsy hemorrhage. Question tiny left pleural effusion.
--- NOTE | 2020-07-07 | CT_ITS ---
PROCEDURE: CT GUIDED BIOPSY, LUNG CLINICAL INFORMATION: Lung nodule COMPARISON: Previous chest CT scans most recent 12/01/2020 TECHNIQUE: Procedure and risks and benefits including bleeding, infection and pneumothorax were discussed with the patient and informed consent was obtained. The left back was prepped and draped in the usual sterile fashion. The skin and soft tissues were anesthetized with 1% lidocaine plain. Using CT guidance and a coaxial system, access to the left lower lobe nodule was obtained. 3 20-gauge FNA specimens were obtained. The patient received Versed 2 mg and fentanyl 100 mcg intravenously during the procedure. Total sedation time was [address] examination was performed using dose optimization techniques as appropriate, variously including the following: *Automated exposure control *Adjustment of mA and/or kV according to patient size (this includes techniques or standardized protocols for targeted exams where dose is matched to indication/reason for exam; i.e. extremities or head) *Use of iterative reconstruction technique DLP: 196 mGy-cm FINDINGS: There is a lobulated 2.5 cm left lower lobe nodule that was targeted for biopsy. Postbiopsy images demonstrate a small amount of surrounding hemorrhage. There is no pneumothorax. CT/CT biopsy lung LT IMPRESSION: CT-guided left lung nodule biopsy.
[2020-07-07 06:21] LABS: MANUAL DIFF FLAG NO
[2020-07-07 06:28] LABS: Basophils Percent Auto 0.1 % (0-2); Hematocrit 37.6 % (37-47); Hemoglobin 11.2 g/dl (12.0-16.0); Imm Gran Abs Auto 0.18 X10*3/uL (0.00-0.03); Imm Gran Pct Auto 1.1 % (0.0-0.4); Lymphocytes Percent Auto 25.3 % (20-40); Mean Corpuscular HGB Conc 29.8 g/dl (31.0-35.0); Mean Corpuscular Hemoglobin 27.3 pg (27.0-33.0); Mean Corpuscular Volume 91.7 fL (80-98); Mean Platelet Volume 9.4 fL (9.4-12.3); Monocytes Absolute Auto 1.5 X10*3/uL (0.1-1.2); Monocytes Percent Auto 9.3 % (2-11); Neutrophils Absolute Auto 10.2 X10*3/uL (2.0-8.3); Neutrophils Percent Auto 64.2 % (45-73); Platelet Count 327 X10*3/uL (160-400); Red Cell Distribution Width 17.3 % (11.0-16.0)
[2020-07-07] MEDS: cefTRIAXone sodium 1 GM in 0.9 % Sodium Chloride 50 ML IV (06:32)
[2020-07-07 06:57] LABS: Anion Gap 15 (12-20); Blood Urea Nitrogen 26 mg/dL (9-16); Calcium 8.5 mg/dL (8.4-10.2); Carbon Dioxide 29 mmol/L (22-29); Chloride 103 mmol/L (96-108); Estimated Glomerular Filt Rate > 60; Glucose Random 89 mg/dL (60-115); Potassium 3.8 mmol/L (3.3-5.1); Sodium 143 mmol/L (135-145)
[2020-07-07 07:13] LABS: Procalcitonin 0.02 ng/mL
[2020-07-07] MEDS: Metoprolol Succinate ER 50 MG TAB.ER.24H PO (07:58)
[2020-07-07] MEDS: hydrALAZINE HCl 50 MG TABLET PO ×3 (07:59→21:21)
[2020-07-07] MEDS: ARIPiprazole 2 MG TABLET PO (08:00)
[2020-07-07] MEDS: amLODIPine Besylate 10 MG TABLET PO (08:00)
[2020-07-07] MEDS: clonazePAM 0.5 MG TABLET PO ×2 (08:01→21:22)
[2020-07-07] MEDS: Divalproex Sodium ER 500 MG TAB.ER.24H PO (08:02)
[2020-07-07] MEDS: Doxycycline Hyclate 100 MG in 0.9 % Sodium Chloride 250 ML 166.67 MG IV ×2 (08:03→18:30)
[2020-07-07] MEDS: 0.9 % Sodium Chloride Flush 3 ML SYRINGE IVFLUSH ×2 (08:05→18:29)
[2020-07-07] MEDS: Fluticasone/Vilanterol 100/25 BLST.W.DEV 1 PUFF INHALE (08:07)
[2020-07-07] MEDS: oxyCODONE HCl Immed Release 5 MG TABLET 10 MG PO ×3 (08:17→21:12)
[2020-07-07] MEDS: Lidocaine HCl 1 % MPF 5 ML VIAL SUBCUT (14:05)
--- NOTE | 2020-07-07 14:10 | HO.RADPN ---
RADIOLOGY Narrative Narrative: Using CT guidance and a coaxial system, 3 20 core biopsies from left lower lobe lung nodule. No complication. Portable CXR ordered .
--- NOTE | 2020-07-07 15:46 | P.PNIM_ITS ---
Subjective Subjective Date of Service: 07/07/20 Interval History: going for biopsy of LLL nodule today dypsnea/wheezing improved no fever no chest pain Physical Exam Vital Signs: Vital Signs: Last Vital Signs Temp 96.8 F 07/07/20 15:35 Pulse 70 07/07/20 15:35 Resp 18 07/07/20 15:35 BP 126/65 07/07/20 15:35 Pulse Ox 72 L 07/07/20 15:35 Body Mass Index 36.8 Gen: in no acute distress HEENT: sclera anicteric, moist mucus membranes Neck: supple Lungs: clear bilaterally Heart: regular rate and rhythm, no murmurs Abd: obese, soft, non-tender, non-distended Ext: no edema Skin: warm/well-perfused Neuro: alert and oriented x3, no focal findings Psych: appropriate affect Objective Data Current Medications Generic Name Dose Route Start Last Admin Trade Name Freq PRN Reason Stop Dose Admin Acetaminophen 650 mg 07/04/20 01:04 07/06/20 23:45 Acetaminophen 325 Mg Tablet PO 650 mg Q6H PRN Administration Pain, Mild (Pain Scale 1-3) Albuterol Sulfate 2.5 mg 07/04/20 01:04 07/05/20 15:29 Albuterol Sulfate (0.083%) 2.5 Mg/3 Ml Vial.Neb INHALE 2.5 mg RQ4H PRN Administration Shortness of Breath Amitriptyline HCl 25 mg 07/04/20 01:04 07/06/20 20:44 Amitriptyline Hcl 25 Mg Tablet PO 25 mg BEDTIME LONG Administration Amlodipine Besylate 10 mg 07/04/20 09:00 07/07/20 08:00 Amlodipine Besylate 10 Mg Tablet PO 10 mg DAILY LONG Administration Protocol Aripiprazole 2 mg 07/04/20 09:00 07/07/20 08:00 Aripiprazole 2 Mg Tablet PO 2 mg DAILY LONG Administration Atorvastatin Calcium 20 mg 07/04/20 01:04 07/06/20 20:44 Atorvastatin Calcium 20 Mg Tablet PO 20 mg BEDTIME LONG Administration Clonazepam 0.5 mg 07/04/20 01:04 07/07/20 08:01 Clonazepam 0.5 Mg Tablet PO 0.5 mg BID LONG Administration Divalproex Sodium 500 mg 07/04/20 09:00 07/07/20 08:02 Divalproex Sodium Er 500 Mg Tab.Er.24h PO 500 mg DAILY LONG Administration Divalproex Sodium 1,000 mg 07/04/20 01:04 07/06/20 20:43 Divalproex Sodium Er 500 Mg Tab.Er.24h PO 1,000 mg BEDTIME LONG Administration Docusate Sodium 100 mg 07/04/20 01:04 07/06/20 10:46 Docusate Sodium 100 Mg Capsule PO 100 mg DAILY PRN Administration Constipation Duloxetine HCl 60 mg 07/04/20 01:04 07/06/20 20:43 Duloxetine Hcl 60 Mg Capsule. PO 60 mg BEDTIME LONG Administration Fluticasone/Vilanterol 1 puff 07/04/20 09:00 07/07/20 08:07 Fluticasone/Vilanterol 100/25 Blst.W.Dev INHALE 1 puff DAILY LONG Administration Hydralazine HCl 50 mg 07/04/20 01:04 07/07/20 14:50 Hydralazine Hcl 50 Mg Tablet PO 50 mg TID LONG Administration Protocol Ceftriaxone Sodium 1 gm/ 50 mls @ 100 mls/hr 07/04/20 07:00 07/07/20 08:52 Sodium Chloride IV Infused Q24H LONG Infusion Doxycycline Hyclate 100 mg/ 250 mls @ 166.67 mls/hr 07/04/20 07:00 07/07/20 09:48 Sodium Chloride IV Infused Q12H LONG Infusion Methylprednisolone Sodium Succinate 40 mg 07/07/20 09:00 07/07/20 08:08 Methylprednisolone Sod Succ/Pf 40 Mg/Ml Vial IVPUSH 40 mg DAILY LONG Administration Metoprolol Succinate 50 mg 07/04/20 09:00 07/07/20 07:58 Metoprolol Succinate Er 50 Mg Tab.Er.24h PO 50 mg DAILY LONG Administration Protocol Non-Formulary Medication 1 inhalation 07/04/20 09:00 Umeclidinium [Incruse Ellipta] INHALE DAILY LONG Omeprazole 20 mg 07/04/20 06:30 07/07/20 05:39 Omeprazole 20 Mg Capsule. PO Not Given BID@0630,1630 LONG Ondansetron HCl 4 mg 07/04/20 01:04 Ondansetron Hcl 4 Mg/2 Ml Vial IVPUSH Q8H PRN Nausea and Vomiting Oxycodone HCl 10 mg 07/04/20 02:07 07/07/20 14:51 Oxycodone Hcl Immed Release 5 Mg Tablet PO 10 mg 5XD PRN Administration Pain (Scale Score 4-6) Pharmacy Consult 1 each 07/03/20 14:46 Consult Rx Perform Med Rec MISCELLANE ONCE PRN Consult order Sodium Chloride 3 ml 07/04/20 01:04 07/07/20 08:05 0.9 % Sodium Chloride Flush 3 Ml Syringe IVFLUSH 3 ml QSHIFT LONG Administration Labs CBC & Chem 7: 07/07/20 05:48 07/07/20 05:48 Labs: Laboratory Results - last 24 hr 07/07/20 07/07/20 07/07/20 05:48 05:48 05:48 WBC 16.0 H RBC 4.10 L Hgb 11.2 L Hct 37.6 MCV 91.7 MCH 27.3 MCHC 29.8 L RDW 17.3 H Plt Count 327 MPV 9.4 Immature Gran % (Auto) 1.1 H Neut % (Auto) 64.2 Lymph % (Auto) 25.3 [place] % (Auto) 9.3 Eos % (Auto) 0.0 Baso % (Auto) 0.1 Lymph # (Auto) 4.0 [place] # (Auto) 1.5 H Eos # (Auto) 0.0 Baso # (Auto) 0.0 Abs Immat Gran (auto) 0.18 H Absolute Neuts (auto) 10.2 H Absolute Nucleated RBC 0.000 Nucleated RBC % (auto) 0.0 Sodium 143 Potassium 3.8 Chloride 103 Carbon Dioxide 29 Anion Gap 15 BUN 26 H D Creatinine 0.80 Estim Creat Clear Calc 88.0 Estimated GFR > 60 Random Glucose 89 Calcium 8.5 D C-Reactive Protein 0.10 Procalcitonin 0.02 Microbiology Microbiology Results: Microbiology 07/03/20 15:20 Blood - Venous Blood Culture - Preliminary No growth after 48 hours. 07/03/20 15:07 Blood - Venous Blood Culture - Preliminary No growth after 48 hours. Assessment and Plan (1) Opacity of lung on imaging study: Status: Acute (2) Lung mass: Status: Acute (3) COPD (chronic obstructive pulmonary disease): Status: Acute (4) Respiratory failure with hypoxia and hypercapnia: Status: Acute Assessment and Plan: hospital d#5 55yo F with COPD, OHS, IVY, lung mass, chronic hypoxic/hypercapneic respiratory failure unable to get home O2, HTN, dyslipidemia, bipolar disorder sent in from PCP office due to hypoxia # LLL mass, suspicious - CT-guided biopsy today # PNA - ceftriaxone + doxycycline d#10/09 # COPD exacerbation - steroids d#10/07, prn bronchodilators, continue ICS/LABA + LAMA # IVY - continue home CPAP # chronic hypoxic/hypercapneic respiratory failure - case mgmt + outpt pulmology office working with insurance to get her home O2 # dyslipidemia - continue statin # HTN - continue amlodipine, metoprolol, hydralazine # mood disorder - continue aripiprazole, valproate, duloxetine, clonazepam # chronic pain - continue oxycodone # VTE ppx - SCDs
[2020-07-07] MEDS: Omeprazole 20 MG CAPSULE.DR PO (18:25)
[2020-07-07] MEDS: Acetaminophen 325 MG TABLET 650 MG PO (18:41)
[2020-07-07] MEDS: DULoxetine HCl 60 MG CAPSULE.DR PO (21:09)
[2020-07-07] MEDS: Atorvastatin Calcium 20 MG TABLET PO (21:21)
[2020-07-07] MEDS: Amitriptyline HCl 25 MG TABLET PO (21:21)
[2020-07-07] MEDS: Divalproex Sodium ER 500 MG TAB.ER.24H 1000 MG PO (21:22)
--- NOTE | 2020-07-08 | XR_ITS ---
EXAMINATION: XR CHEST CLINICAL INFORMATION: Hemorrhage COMPARISON: July 07, 2020 and May 29, 2020 TECHNIQUE: AP portable view of the chest was obtained. FINDINGS: Retrocardiac density is again seen. It is slightly larger than the previous biopsy appearance of nodule that was biopsied but without significant hemorrhage identified and without obvious pleural effusion. No pneumothorax is evident. Heart normal size. No evidence of pulmonary edema. XR/XR chest 1V IMPRESSION: No significant hemorrhage or pneumothorax status post left lower lobe nodule biopsy.
[2020-07-08] MEDS: 0.9 % Sodium Chloride Flush 3 ML SYRINGE IVFLUSH ×3 (00:51→16:19)
[2020-07-08] MEDS: oxyCODONE HCl Immed Release 5 MG TABLET 10 MG PO ×4 (01:29→17:53)
[2020-07-08 04:00] VITALS: BP 99/65; PULSE 80; RESP 20; TEMP 36.3
[2020-07-08] MEDS: Omeprazole 20 MG CAPSULE.DR PO ×2 (06:06→16:19)
[2020-07-08] MEDS: cefTRIAXone sodium 1 GM in 0.9 % Sodium Chloride 50 ML IV (06:06)
[2020-07-08] MEDS: Doxycycline Hyclate 100 MG in 0.9 % Sodium Chloride 250 ML 166.7 MG IV (06:42)
[2020-07-08] MEDS: amLODIPine Besylate 10 MG TABLET PO (07:41)
[2020-07-08] MEDS: Divalproex Sodium ER 500 MG TAB.ER.24H PO (07:42)
[2020-07-08] MEDS: hydrALAZINE HCl 50 MG TABLET PO ×3 (07:42→20:50)
[2020-07-08] MEDS: Metoprolol Succinate ER 50 MG TAB.ER.24H PO (07:42)
[2020-07-08] MEDS: ARIPiprazole 2 MG TABLET PO (07:43)
[2020-07-08] MEDS: clonazePAM 0.5 MG TABLET PO ×2 (07:45→20:50)
[2020-07-08] MEDS: Fluticasone/Vilanterol 100/25 BLST.W.DEV 1 PUFF INHALE (07:55)
[2020-07-08 08:00] VITALS: BP 137/76; PULSE 77; RESP 16; TEMP 36.3; O2SAT 93
[2020-07-08 11:46] VITALS: BP 115/62; PULSE 79; RESP 16; TEMP 36.7; O2SAT 92
--- NOTE | 2020-07-08 14:27 | HO.PM.IMPN ---
Subjective Subjective Date of Service: 07/08/20 Interval History: s/p lung biopsy yesterday, some pain at biopsy site still somewhat dyspneic no wheeze Physical Exam Vital Signs: Vital Signs: Last Vital Signs Temp 98.0 F 07/08/20 11:46 Pulse 79 07/08/20 11:46 Resp 16 07/08/20 11:46 BP 115/62 07/08/20 11:46 Pulse Ox 92 07/08/20 11:46 Body Mass Index 36.8 Gen: in no acute distress HEENT: sclera anicteric, moist mucus membranes Neck: supple Lungs: clear bilaterally Heart: regular rate and rhythm, no murmurs Abd: obese, soft, non-tender, non-distended Ext: no edema Skin: warm/well-perfused Neuro: alert and oriented x3, no focal findings Psych: appropriate affect Objective Data Current Medications Generic Name Dose Route Start Last Admin Trade Name Freq PRN Reason Stop Dose Admin Acetaminophen 650 mg 07/04/20 01:04 07/07/20 18:41 Acetaminophen 325 Mg Tablet PO 650 mg Q6H PRN Administration Pain, Mild (Pain Scale 1-3) Albuterol Sulfate 2.5 mg 07/04/20 01:04 07/05/20 15:29 Albuterol Sulfate (0.083%) 2.5 Mg/3 Ml Vial.Neb INHALE 2.5 mg RQ4H PRN Administration Shortness of Breath Amitriptyline HCl 25 mg 07/04/20 01:04 07/07/20 21:21 Amitriptyline Hcl 25 Mg Tablet PO 25 mg BEDTIME LONG Administration Amlodipine Besylate 10 mg 07/04/20 09:00 07/08/20 07:41 Amlodipine Besylate 10 Mg Tablet PO 10 mg DAILY LONG Administration Protocol Aripiprazole 2 mg 07/04/20 09:00 07/08/20 07:43 Aripiprazole 2 Mg Tablet PO 2 mg DAILY LONG Administration Atorvastatin Calcium 20 mg 07/04/20 01:04 07/07/20 21:21 Atorvastatin Calcium 20 Mg Tablet PO 20 mg BEDTIME LONG Administration Clonazepam 0.5 mg 07/04/20 01:04 07/08/20 07:45 Clonazepam 0.5 Mg Tablet PO 0.5 mg BID LONG Administration Divalproex Sodium 500 mg 07/04/20 09:00 07/08/20 07:42 Divalproex Sodium Er 500 Mg Tab.Er.24h PO 500 mg DAILY LONG Administration Divalproex Sodium 1,000 mg 07/04/20 01:04 07/07/20 21:22 Divalproex Sodium Er 500 Mg Tab.Er.24h PO 1,000 mg BEDTIME LOGN Administration Docusate Sodium 100 mg 07/04/20 01:04 07/06/20 10:46 Docusate Sodium 100 Mg Capsule PO 100 mg DAILY PRN Administration Constipation Duloxetine HCl 60 mg 07/04/20 01:04 07/07/20 21:09 Duloxetine Hcl 60 Mg Capsule. PO 60 mg BEDTIME LONG Administration Fluticasone/Vilanterol 1 puff 07/04/20 09:00 07/08/20 07:55 Fluticasone/Vilanterol 100/25 Blst.W.Dev INHALE 1 puff DAILY LONG Administration Hydralazine HCl 50 mg 07/04/20 01:04 07/08/20 14:23 Hydralazine Hcl 50 Mg Tablet PO 50 mg TID LONG Administration Protocol Ceftriaxone Sodium 1 gm/ 50 mls @ 100 mls/hr 07/04/20 07:00 07/08/20 06:52 Sodium Chloride IV Infused Q24H LONG Infusion Doxycycline Hyclate 100 mg/ 250 mls @ 166.67 mls/hr 07/04/20 07:00 07/08/20 09:11 Sodium Chloride IV Infused Q12H LONG Infusion Metoprolol Succinate 50 mg 07/04/20 09:00 07/08/20 07:42 Metoprolol Succinate Er 50 Mg Tab.Er.24h PO 50 mg DAILY LONG Administration Protocol Non-Formulary Medication 1 inhalation 07/04/20 09:00 Umeclidinium [Incruse Ellipta] INHALE DAILY LONG Omeprazole 20 mg 07/04/20 06:30 07/08/20 06:06 Omeprazole 20 Mg Capsule. PO 20 mg BID@0630,1630 LONG Administration Ondansetron HCl 4 mg 07/04/20 01:04 Ondansetron Hcl 4 Mg/2 Ml Vial IVPUSH Q8H PRN Nausea and Vomiting Oxycodone HCl 10 mg 07/04/20 02:07 07/08/20 11:37 Oxycodone Hcl Immed Release 5 Mg Tablet PO 10 mg 5XD PRN Administration Pain (Scale Score 4-6) Pharmacy Consult 1 each 07/03/20 14:46 Consult Rx Perform Med Rec MISCELLANE ONCE PRN Consult order Sodium Chloride 3 ml 07/04/20 01:04 07/08/20 07:45 0.9 % Sodium Chloride Flush 3 Ml Syringe IVFLUSH 3 ml QSHIFT LONG Administration Labs CBC & Chem 7: 07/07/20 05:48 07/07/20 05:48 Labs: Impressions Chest X-Ray 07/07/20 00:00 IMPRESSION: No pneumothorax post left lung biopsy. Increased attenuation at the left lung base questionable for small amount of postbiopsy hemorrhage. Question tiny left pleural effusion. Lung Biopsy CT 07/07/20 00:00 IMPRESSION: CT-guided left lung nodule biopsy. Chest X-Ray 07/08/20 00:00 IMPRESSION: No significant hemorrhage or pneumothorax status post left lower lobe nodule biopsy. Microbiology Microbiology Results: Microbiology 07/03/20 15:20 Blood - Venous Blood Culture - Preliminary No growth after 48 hours. 07/03/20 15:07 Blood - Venous Blood Culture - Preliminary No growth after 48 hours. Assessment and Plan (1) Opacity of lung on imaging study: Status: Acute (2) Lung mass: Status: Acute (3) COPD (chronic obstructive pulmonary disease): Status: Acute (4) Respiratory failure with hypoxia and hypercapnia: Status: Acute Assessment and Plan: hospital d#6 55yo F with COPD, OHS, IVY, lung mass, chronic hypoxic/hypercapneic respiratory failure unable to get home O2, HTN, dyslipidemia, bipolar disorder sent in from PCP office due to hypoxia # LLL mass, suspicious - s/p CT-guided biopsy 07/07/20, outpt Pulm + Onc f/u - repeat CXR no signs of hemorrhage # PNA - ceftriaxone + doxycycline d/c'ed- completed 5d # COPD exacerbation - steroids d/c'ed- completed 5d, continue ICS/LABA + LAMA + prn MICHAEL # IVY - continue home CPAP # chronic hypoxic/hypercapneic respiratory failure - case mgmt + outpt pulmology office working with insurance to get her home O2- if she goes home without O2 she will certainly be re-admitted soon # dyslipidemia - continue statin # HTN - continue amlodipine, metoprolol, hydralazine # mood disorder - continue aripiprazole, valproate, duloxetine, clonazepam # chronic pain - continue oxycodone # VTE ppx - SCDs
[2020-07-08 15:53] VITALS: BP 114/54; PULSE 82; RESP 18; TEMP 36.2; O2SAT 95
[2020-07-08] MEDS: Acetaminophen 325 MG TABLET 650 MG PO (16:18)
--- NOTE | 2020-07-08 16:28 | PC.NURSE ---
Biopsy site bandaide right mid back area CDI,no redness ,no swelling
[2020-07-08 19:46] VITALS: BP 134/74; PULSE 84; RESP 18; TEMP 36.4; O2SAT 94
[2020-07-08] MEDS: Divalproex Sodium ER 500 MG TAB.ER.24H 1000 MG PO (20:48)
[2020-07-08] MEDS: DULoxetine HCl 60 MG CAPSULE.DR PO (20:49)
[2020-07-08] MEDS: Amitriptyline HCl 25 MG TABLET PO (20:49)
[2020-07-08] MEDS: Atorvastatin Calcium 20 MG TABLET PO (20:49)
[2020-07-08 20:50] VITALS: BP 134/74; PULSE 84
[2020-07-09] VITALS (8 sets, daily range): BP systolic 127–169; BP diastolic 65–87; PULSE 71–83; RESP 16–18; TEMP 35.7–36.8; O2SAT 91–97
[2020-07-09] MEDS: oxyCODONE HCl Immed Release 5 MG TABLET 10 MG PO ×5 (00:40→22:51)
[2020-07-09] MEDS: 0.9 % Sodium Chloride Flush 3 ML SYRINGE IVFLUSH ×4 (00:40→22:51)
[2020-07-09] MEDS: Acetaminophen 325 MG TABLET 650 MG PO ×2 (04:41→15:50)
[2020-07-09] MEDS: Omeprazole 20 MG CAPSULE.DR PO ×2 (06:21→15:50)
[2020-07-09] MEDS: Fluticasone/Vilanterol 100/25 BLST.W.DEV 1 PUFF INHALE (08:13)
[2020-07-09] MEDS: amLODIPine Besylate 10 MG TABLET PO (08:25)
[2020-07-09] MEDS: clonazePAM 0.5 MG TABLET PO ×3 (08:25→20:09)
[2020-07-09] MEDS: Divalproex Sodium ER 500 MG TAB.ER.24H PO (08:25)
[2020-07-09] MEDS: ARIPiprazole 2 MG TABLET PO (08:25)
[2020-07-09] MEDS: hydrALAZINE HCl 50 MG TABLET PO ×3 (08:26→20:08)
[2020-07-09] MEDS: Metoprolol Succinate ER 50 MG TAB.ER.24H PO (08:26)
--- NOTE | 2020-07-09 09:40 | P.PNIM_ITS ---
Subjective Subjective Date of Service: 07/09/20 Interval History: breathing improved; no wheezing or cough no fever submitted [employer] application, awaiting for approval in order to get home O2 paid Physical Exam Vital Signs: Vital Signs: Last Vital Signs Temp 98.3 F 07/09/20 08:00 Pulse 72 07/09/20 08:00 Resp 17 07/09/20 08:00 BP 138/87 07/09/20 08:00 Pulse Ox 97 07/09/20 08:00 Body Mass Index 36.8 Gen: in no acute distress HEENT: sclera anicteric, moist mucus membranes Neck: supple Lungs: clear bilaterally Heart: regular rate and rhythm, no murmurs Abd: obese, soft, non-tender, non-distended Ext: no edema Skin: warm/well-perfused Neuro: alert and oriented x3, no focal findings Psych: appropriate affect Objective Data Current Medications Generic Name Dose Route Start Last Admin Trade Name Freq PRN Reason Stop Dose Admin Acetaminophen 650 mg 07/04/20 01:04 07/09/20 04:41 Acetaminophen 325 Mg Tablet PO 650 mg Q6H PRN Administration Pain, Mild (Pain Scale 1-3) Albuterol Sulfate 2.5 mg 07/04/20 01:04 07/05/20 15:29 Albuterol Sulfate (0.083%) 2.5 Mg/3 Ml Vial.Neb INHALE 2.5 mg RQ4H PRN Administration Shortness of Breath Amitriptyline HCl 25 mg 07/04/20 01:04 07/08/20 20:49 Amitriptyline Hcl 25 Mg Tablet PO 25 mg BEDTIME LONG Administration Amlodipine Besylate 10 mg 07/04/20 09:00 07/09/20 08:25 Amlodipine Besylate 10 Mg Tablet PO 10 mg DAILY LONG Administration Protocol Aripiprazole 2 mg 07/04/20 09:00 07/09/20 08:25 Aripiprazole 2 Mg Tablet PO 2 mg DAILY LONG Administration Atorvastatin Calcium 20 mg 07/04/20 01:04 07/08/20 20:49 Atorvastatin Calcium 20 Mg Tablet PO 20 mg BEDTIME LONG Administration Clonazepam 0.5 mg 07/04/20 01:04 07/09/20 08:25 Clonazepam 0.5 Mg Tablet PO 0.5 mg BID LONG Administration Divalproex Sodium 500 mg 07/04/20 09:00 07/09/20 08:25 Divalproex Sodium Er 500 Mg Tab.Er.24h PO 500 mg DAILY LONG Administration Divalproex Sodium 1,000 mg 07/04/20 01:04 07/08/20 20:48 Divalproex Sodium Er 500 Mg Tab.Er.24h PO 1,000 mg BEDTIME LONG Administration Docusate Sodium 100 mg 07/04/20 01:04 07/06/20 10:46 Docusate Sodium 100 Mg Capsule PO 100 mg DAILY PRN Administration Constipation Duloxetine HCl 60 mg 07/04/20 01:04 07/08/20 20:49 Duloxetine Hcl 60 Mg Capsule. PO 60 mg BEDTIME LONG Administration Fluticasone/Vilanterol 1 puff 07/04/20 09:00 07/09/20 08:13 Fluticasone/Vilanterol 100/25 Blst.W.Dev INHALE 1 puff DAILY [facility] Administration Hydralazine HCl 50 mg 07/04/20 01:04 07/09/20 08:26 Hydralazine Hcl 50 Mg Tablet PO 50 mg TID [facility] Administration Protocol Metoprolol Succinate 50 mg 07/04/20 09:00 07/09/20 08:26 Metoprolol Succinate Er 50 Mg Tab.Er.24h PO 50 mg DAILY [facility] Administration Protocol Non-Formulary Medication 1 inhalation 07/04/20 09:00 Umeclidinium [Incruse Ellipta] INHALE DAILY [facility] Omeprazole 20 mg 07/04/20 06:30 07/09/20 06:21 Omeprazole 20 Mg Capsule. PO 20 mg BID@0630,1630 [facility] Administration Ondansetron HCl 4 mg 07/04/20 01:04 Ondansetron Hcl 4 Mg/2 Ml Vial IVPUSH Q8H PRN Nausea and Vomiting Oxycodone HCl 10 mg 07/04/20 02:07 07/09/20 08:57 Oxycodone Hcl Immed Release 5 Mg Tablet PO 10 mg 5XD PRN Administration Pain (Scale Score 4-6) Pharmacy Consult 1 each 07/03/20 14:46 Consult Rx Perform Med Rec MISCELLANE ONCE PRN Consult order Sodium Chloride 3 ml 07/04/20 01:04 07/09/20 08:26 0.9 % Sodium Chloride Flush 3 Ml Syringe IVFLUSH 3 ml QSHIFT [facility] Administration Labs CBC & Chem 7: 07/07/20 05:48 07/07/20 05:48 Microbiology Microbiology Results: Microbiology 07/03/20 15:20 Blood - Venous Blood Culture - Final No growth after 5 days. 07/03/20 15:07 Blood - Venous Blood Culture - Final No growth after 5 days. Assessment and Plan (1) Opacity of lung on imaging study: Status: Acute (2) Lung mass: Status: Acute (3) COPD (chronic obstructive pulmonary disease): Status: Acute (4) Respiratory failure with hypoxia and hypercapnia: Status: Acute Assessment and Plan: hospital d#7 55yo F with COPD, OHS, IVY, lung mass, chronic hypoxic/hypercapneic respiratory failure but unable to get home O2, HTN, dyslipidemia, bipolar disorder sent in from PCP office due to hypoxia # LLL mass, suspicious - s/p CT-guided biopsy 07/07/20, outpt Pulm + Onc f/u - repeat CXR with no signs of hemorrhage # PNA - ceftriaxone + doxycycline d/c'ed p 5d # COPD exacerbation - steroids d/c'ed p 5d - continue ICS/LABA + LAMA + prn MICHAEL # IVY - continue home CPAP # chronic hypoxic/hypercapneic respiratory failure - case mgmt + outpt pulmonology office working with insurance to get her home O2- if she goes home without O2 she will certainly be re-admitted soon # dyslipidemia - continue statin # HTN - continue amlodipine, metoprolol, hydralazine # mood disorder - continue aripiprazole, valproate, duloxetine, clonazepam # chronic pain - continue oxycodone # VTE ppx - SCDs
--- NOTE | 2020-07-09 13:38 | MHC.CM.PN ---
The plan for dc is home with [facility] and new home O2. Patient cannot afford [employer] which would cover O2 at home. Therefor, Patient met with [facility] [employer] (Teresa), who explained that Patient is over income.Teresa indicated that a work around, can be done in these situations and Teresa sent in necessary paperwork today around 10 AM. This work around, can take 24-48 hours to receive an answer. IRMA relayed this message to , who indicated that Patient will not do well without home o2. CM awaits further notice from [facility] [employer] and will continue to follow for dc planning.
[2020-07-09] MEDS: Divalproex Sodium ER 500 MG TAB.ER.24H 1000 MG PO (20:08)
[2020-07-09] MEDS: Atorvastatin Calcium 20 MG TABLET PO (20:08)
[2020-07-09] MEDS: DULoxetine HCl 60 MG CAPSULE.DR PO (20:08)
[2020-07-09] MEDS: Amitriptyline HCl 25 MG TABLET PO (20:09)
[2020-07-10] VITALS (11 sets, daily range): BP systolic 95–150; BP diastolic 49–74; PULSE 73–84; RESP 14–18; TEMP 36.1–36.6; O2SAT 92–98
[2020-07-10] MEDS: Acetaminophen 325 MG TABLET 650 MG PO ×3 (03:32→16:44)
[2020-07-10] MEDS: Omeprazole 20 MG CAPSULE.DR PO ×2 (05:02→16:45)
[2020-07-10] MEDS: oxyCODONE HCl Immed Release 5 MG TABLET 10 MG PO ×5 (05:02→21:33)
[2020-07-10] MEDS: Fluticasone/Vilanterol 100/25 BLST.W.DEV 1 PUFF INHALE (08:10)
[2020-07-10] MEDS: clonazePAM 0.5 MG TABLET PO ×2 (09:15→21:27)
[2020-07-10] MEDS: Divalproex Sodium ER 500 MG TAB.ER.24H PO (09:15)
[2020-07-10] MEDS: 0.9 % Sodium Chloride Flush 3 ML SYRINGE IVFLUSH ×3 (09:15→21:28)
[2020-07-10] MEDS: hydrALAZINE HCl 50 MG TABLET PO ×3 (09:16→21:28)
[2020-07-10] MEDS: amLODIPine Besylate 10 MG TABLET PO (09:16)
[2020-07-10] MEDS: ARIPiprazole 2 MG TABLET PO (09:16)
[2020-07-10] MEDS: Metoprolol Succinate ER 50 MG TAB.ER.24H PO (09:17)
--- NOTE | 2020-07-10 10:47 | PM.HEMONCCN ---
Subjective - Subjective Chief complaint: Shortness of breath Patient: new to practice Consult date: 07/10/20 Primary Care Provider: Cassandra Oconnor MD HPI - Consult Narrative Reason for consult: Lung cancer Narrative: Claire Seth is a 55 year old female who was admitted for hypoxia and shortness of breath and diagnosed with lung cancer. She states that all her symptoms began when she acquired COVID-19 infection a month ago. She has had intermittent shortness of breath, she was seen by hvac design mechanical engineer on 2 occasions. She was recommended home oxygen but has been unable to get it so far. She has intermittent cough but denies loss of appetite or weight loss. She recently quit smoking. She denies headache or dizziness. No chest pain or hemoptysis. No change in bowel habits or leg swelling. Review of Systems - Constitutional Reports as per HPI, Reports fatigue, Reports poor appetite, Reports weakness, Denies weight loss - Cardiovascular Denies chest pain, Denies generalized swelling, Denies irregular heart rhythm - Respiratory Reports cough, Denies hemoptysis, Reports dyspnea, Reports dyspnea on exertion - Gastrointestinal Denies abdominal pain, Denies change in stools Oncology Screenings - ECOG Performance Status ECOG Performance Status: 2 [facility] Medical History: Medical History (Last Reviewed 07/05/20 @ 19:57 by Alison Jonas MD) Acute on chronic diastolic CHF (congestive heart failure) Back pain with history of spinal surgery Bipolar 1 disorder Bipolar disorder CAD (coronary artery disease) Chronic back pain COPD (chronic obstructive pulmonary disease) COPD (chronic obstructive pulmonary disease) Depression Fibromyalgia High cholesterol HTN (hypertension) Hypoventilation associated with obesity Obesity Obesity hypoventilation syndrome PTSD (post-traumatic stress disorder) Renal failure Respiratory failure with hypoxia and hypercapnia Restless legs syndrome (RLS) Rotator cuff strain Sleep disorder Smoker Functional capacity: uses cane/walker Family history: reviewed and not pertinent Surgical History: Surgical History (Last Reviewed 07/05/20 @ 19:57 by Alison Jonas MD) H/O: hysterectomy Social History: Social History (Last Reviewed 07/05/20 @ 19:57 by Alison Jonas MD) Living Situation History: Household Members: Spouse Housing: Apartment Do you presently have visiting nurse or other home services: No Alcohol History: Alcohol intake: unknown Alcohol History Details: Alcohol intake frequency: former alcohol drinker Tobacco History: Smoking Status: Former smoker Tobacco Type: Cigarette Cigarettes Per Day: 9 Smoked in Last 30 Days: Yes Patient Interested in Nicotine Replacement: No Patient Given Instructions on How to Stop Smoking: Yes Date Education Initiated: 07/04/20 Second Hand Smoke Exposure: Yes Substance Use History: Use of substances other than those prescribed or required for medical reasons: No Currently Displaying Signs/Symptoms of Drug Intoxication Withdrawal: No Domestic Abuse History: Have you been hit, kicked, punched, or otherwise hurt by someone within the past year? If so, by whom?: No Do you feel safe in your current relationship?: Yes Is there a partner from a previous relationship who is making you feel unsafe now?: No Are you made to feel afraid or neglected: No Advance Directives: Advance Directives: No Advance Directives Information Provided: Yes Advance Directives on File: No Homicidal Assessment: Do you have thoughts of harming others: None Do you have a plan to hurt others: No Plan Nutrition Assessment: Recently lost weight without trying: No Nutrition Risks: No Nutritional Risk Patient : No Poor oral hygiene: No Occupation Assessmet: service: No Current occupational status: disabled Smoking status: Former smoker Home Medications and Allergies Current Medications: Current Medications Generic Name Dose Route Start Last Admin Trade Name Freq PRN Reason Stop Dose Admin Acetaminophen 650 mg 07/04/20 01:04 07/10/20 09:16 Acetaminophen 325 Mg Tablet PO 650 mg Q6H PRN Administration Pain, Mild (Pain Scale 1-3) Albuterol Sulfate 2.5 mg 07/04/20 01:04 07/05/20 15:29 Albuterol Sulfate (0.083%) 2.5 Mg/3 Ml Vial.Neb INHALE 2.5 mg RQ4H PRN Administration Shortness of Breath Amitriptyline HCl 25 mg 07/04/20 01:04 07/09/20 20:09 Amitriptyline Hcl 25 Mg Tablet PO 25 mg BEDTIME LONG Administration Amlodipine Besylate 10 mg 07/04/20 09:00 07/10/20 09:16 Amlodipine Besylate 10 Mg Tablet PO 10 mg DAILY LONG Administration Protocol Aripiprazole 2 mg 07/04/20 09:00 07/10/20 09:16 Aripiprazole 2 Mg Tablet PO 2 mg DAILY LONG Administration Atorvastatin Calcium 20 mg 07/04/20 01:04 07/09/20 20:08 Atorvastatin Calcium 20 Mg Tablet PO 20 mg BEDTIME LONG Administration Clonazepam 0.5 mg 07/04/20 01:04 07/10/20 09:15 Clonazepam 0.5 Mg Tablet PO 0.5 mg BID LONG Administration Divalproex Sodium 500 mg 07/04/20 09:00 07/10/20 09:15 Divalproex Sodium Er 500 Mg Tab.Er.24h PO 500 mg DAILY LONG Administration Divalproex Sodium 1,000 mg 07/04/20 01:04 07/09/20 20:08 Divalproex Sodium Er 500 Mg Tab.Er.24h PO 1,000 mg BEDTIME LONG Administration Docusate Sodium 100 mg 07/04/20 01:04 07/06/20 10:46 Docusate Sodium 100 Mg Capsule PO 100 mg DAILY PRN Administration Constipation Duloxetine HCl 60 mg 07/04/20 01:04 07/09/20 20:08 Duloxetine Hcl 60 Mg Capsule. PO 60 mg BEDTIME LONG Administration Fluticasone/Vilanterol 1 puff 07/04/20 09:00 07/10/20 08:10 Fluticasone/Vilanterol 100/25 Blst.W.Dev INHALE 1 puff DAILY LONG Administration Hydralazine HCl 50 mg 07/04/20 01:04 07/10/20 09:16 Hydralazine Hcl 50 Mg Tablet PO 50 mg TID LONG Administration Protocol Metoprolol Succinate 50 mg 07/04/20 09:00 07/10/20 09:17 Metoprolol Succinate Er 50 Mg Tab.Er.24h PO 50 mg DAILY LONG Administration Protocol Omeprazole 20 mg 07/04/20 06:30 07/10/20 05:02 Omeprazole 20 Mg Capsule. PO 20 mg BID@0630,1630 LONG Administration Ondansetron HCl 4 mg 07/04/20 01:04 Ondansetron Hcl 4 Mg/2 Ml Vial IVPUSH Q8H PRN Nausea and Vomiting Oxycodone HCl 10 mg 07/04/20 02:07 07/10/20 10:27 Oxycodone Hcl Immed Release 5 Mg Tablet PO 10 mg 5XD PRN Administration Pain (Scale Score 4-6) Pharmacy Consult 1 each 07/03/20 14:46 Consult Rx Perform Med Rec MISCELLANE ONCE PRN Consult order Sodium Chloride 3 ml 07/04/20 01:04 07/10/20 09:15 0.9 % Sodium Chloride Flush 3 Ml Syringe IVFLUSH 3 ml QSDCFT COUNT INCLUDES THE [facility] Administration Home Medications Medication Instructions Recorded Confirmed Type amitriptyline 25 mg PO BEDTIME 04/21/20 07/03/20 History amlodipine 10 mg PO DAILY 04/21/20 07/03/20 History aspirin 81 mg PO DAILY 04/21/20 07/03/20 History divalproex 500 mg PO DAILY 04/21/20 07/03/20 History duloxetine 60 mg PO BEDTIME 04/21/20 07/03/20 History omeprazole 20 mg PO BID@0630,1630 04/21/20 07/03/20 History Breo Ellipta 1 inh INHALATION DAILY 05/26/20 07/03/20 History Incruse Ellipta 1 inh INHALATION DAILY 05/26/20 07/03/20 History aripiprazole 2 mg PO DAILY 05/26/20 07/03/20 History clonazepam 0.5 mg PO BID 05/26/20 07/03/20 History divalproex 1,000 mg PO BEDTIME 05/26/20 07/03/20 History hydralazine 50 mg PO TID 05/26/20 07/03/20 History metoprolol succinate 50 mg PO DAILY 05/26/20 07/03/20 History oxycodone-acetaminophen 1 tab PO 5XD PRN 05/26/20 07/03/20 History atorvastatin 20 mg PO BEDTIME 07/03/20 07/03/20 History Allergies Allergy/AdvReac Type Severity Reaction Status Date / Time Penicillins Allergy Mild RASH Verified 06/23/20 14:36 venlafaxine [From Effexor] Allergy Mild RASH Verified 06/23/20 14:36 cyclobenzaprine Allergy Unknown UNKNOWN Verified 06/23/20 14:36 [Cyclobenzaprine] fentanyl [FENTANYL] Allergy Unknown HALLUCINATI Verified 06/23/20 14:36 ONS topiramate [From Topamax] Allergy Unknown UNKNOWN Verified 06/23/20 14:36 Physical Exam Vital signs: Vital Signs Temp 97.8 F 07/10/20 06:50 Pulse 73 07/10/20 09:17 Resp 18 07/10/20 06:50 BP 138/74 07/10/20 09:17 Pulse Ox 95 02/05/21 06:50 Intake & Output 07/09/20 07/10/20 07/10/20 18:59 06:59 18:59 Intake Total 520 / 950 430 / 950 Output Total 4 / 4 Balance 516 / 946 430 / 946 Urine Output (Average ml/kg/hr) 0.00 0.00 0.00 Intake: Intake, Oral Amount 520 / 950 430 / 950 Output: Output, Urine Amount 3 / 3 Output, Stool Amount / Other: Meal Refused No NPO No No Breakfast % Eaten 25% Lunch % Eaten 100% Number of Unmeasured Voids 1 Urine Bathroom Urine Color Yellow Last Bowel Movement 07/09/20 07/09/20 07/09/20 Stool Amount Small Stool Color Brown Stool Consistency Semi Formed Weight 97.522 kg - Constitutional Present: no acute distress, obese - Routine HEENT Exam Head: Present: normal inspection Eye: Present: EOMI - Routine Neck Exam Present: supple - Routine Respiratory Exam Absent: respiratory distress, rhonchi, wheezes - Routine Cardiovascular Exam Cardiovascular: Present: RRR, S1, S2 Hem/Onc Consult Result - Labs CBC & Chem 7: 07/07/20 05:48 07/07/20 05:48 - Imaging CT scan - chest Radiologist's impression: ITS Impressions Chest CT 07/03/20 14:47 IMPRESSION: 1. Hazy airspace opacity posterior right upper lobe. 2. 2.3 cm lobular mass left lower lobe. This is a suspicious lesion. Consider tissue sampling. This result was discussed with JUAN Fallon on 07/03/2020, 5:00 PM and it was ascertained that the content and urgency of the report was understood at the time of direct communication. Chest X-Ray 07/07/20 00:00 IMPRESSION: No pneumothorax post left lung biopsy. Increased attenuation at the left lung base questionable for small amount of postbiopsy hemorrhage. Question tiny left pleural effusion. Lung Biopsy CT 07/07/20 00:00 IMPRESSION: CT-guided left lung nodule biopsy. Chest X-Ray 07/08/20 00:00 IMPRESSION: No significant hemorrhage or pneumothorax status post left lower lobe nodule biopsy. Assessment and Plan (1) Lung mass Status: Acute 1. This is 55-year-old woman with lung carcinoma, left lower lobe poorly differentiated carcinoma proven by CT-guided biopsy on 07/07/2020. She was admitted for , symptoms of shortness of breath which has been ongoing since her COVID-[address] in [address] chest on 07/03/2020 revealed lobular mass in the left lower lobe measuring 2.3 cm. Subcentimeter shotty lymph nodes in the pretracheal, retrovascular space but no bulky lymphadenopathy. Prior imaging in April 2020 also revealed this mass, it has fortunately not grown in size. She will need further workup with brain MRI, PET-CT, lung function tests and CT surgery consultation. Depending on stage of disease further recommendations will be made. I have explained this to the patient. She will need to follow-up with Oncology and CT surgery immediately after discharge. I thank you for this consultation.
--- NOTE | 2020-07-10 15:26 | HO.PM.IMPN ---
Subjective Subjective Date of Service: 07/10/20 Interval History: breathing improved; no wheezing or cough , no fever submitted [employer] application, awaiting for approval in order to get home O2 paid. Sad due to cancer diagnosi Physical Exam Vital Signs: Vital Signs: Last Vital Signs Temp 97.0 F 07/10/20 11:16 Pulse 75 07/10/20 11:16 Resp 16 07/10/20 11:16 BP 112/63 07/10/20 11:16 Pulse Ox 98 07/10/20 11:16 Body Mass Index 36.8 Gen: in no acute distress HEENT: sclera anicteric, moist mucus membranes Neck: supple Lungs: clear bilaterally Heart: regular rate and rhythm, no murmurs Abd: obese, soft, non-tender, non-distended Ext: no edema Skin: warm/well-perfused Neuro: alert and oriented x3, no focal findings Psych: appropriate affect Objective Data Current Medications Generic Name Dose Route Start Last Admin Trade Name Freq PRN Reason Stop Dose Admin Acetaminophen 650 mg 07/04/20 01:04 07/10/20 09:16 Acetaminophen 325 Mg Tablet PO 650 mg Q6H PRN Administration Pain, Mild (Pain Scale 1-3) Albuterol Sulfate 2.5 mg 07/04/20 01:04 07/05/20 15:29 Albuterol Sulfate (0.083%) 2.5 Mg/3 Ml Vial.Neb INHALE 2.5 mg RQ4H PRN Administration Shortness of Breath Amitriptyline HCl 25 mg 07/04/20 01:04 07/09/20 20:09 Amitriptyline Hcl 25 Mg Tablet PO 25 mg BEDTIME LONG Administration Amlodipine Besylate 10 mg 07/04/20 09:00 07/10/20 09:16 Amlodipine Besylate 10 Mg Tablet PO 10 mg DAILY LONG Administration Protocol Aripiprazole 2 mg 07/04/20 09:00 07/10/20 09:16 Aripiprazole 2 Mg Tablet PO 2 mg DAILY LONG Administration Atorvastatin Calcium 20 mg 07/04/20 01:04 07/09/20 20:08 Atorvastatin Calcium 20 Mg Tablet PO 20 mg BEDTIME LONG Administration Clonazepam 0.5 mg 07/04/20 01:04 07/10/20 09:15 Clonazepam 0.5 Mg Tablet PO 0.5 mg BID LONG Administration Divalproex Sodium 500 mg 07/04/20 09:00 07/10/20 09:15 Divalproex Sodium Er 500 Mg Tab.Er.24h PO 500 mg DAILY LONG Administration Divalproex Sodium 1,000 mg 07/04/20 01:04 07/09/20 20:08 Divalproex Sodium Er 500 Mg Tab.Er.24h PO 1,000 mg BEDTIME LONG Administration Docusate Sodium 100 mg 07/04/20 01:04 07/06/20 10:46 Docusate Sodium 100 Mg Capsule PO 100 mg DAILY PRN Administration Constipation Duloxetine HCl 60 mg 07/04/20 01:04 07/09/20 20:08 Duloxetine Hcl 60 Mg Capsule. PO 60 mg BEDTIME LONG Administration Fluticasone/Vilanterol 1 puff 07/04/20 09:00 07/10/20 08:10 Fluticasone/Vilanterol 100/25 Blst.W.Dev INHALE 1 puff DAILY LONG Administration Hydralazine HCl 50 mg 07/04/20 01:04 07/10/20 09:16 Hydralazine Hcl 50 Mg Tablet PO 50 mg TID [facility] Administration Protocol Metoprolol Succinate 50 mg 07/04/20 09:00 07/10/20 09:17 Metoprolol Succinate Er 50 Mg Tab.Er.24h PO 50 mg DAILY [facility] Administration Protocol Omeprazole 20 mg 07/04/20 06:30 07/10/20 05:02 Omeprazole 20 Mg Capsule. PO 20 mg BID@0630,1630 [facility] Administration Ondansetron HCl 4 mg 07/04/20 01:04 Ondansetron Hcl 4 Mg/2 Ml Vial IVPUSH Q8H PRN Nausea and Vomiting Oxycodone HCl 10 mg 07/04/20 02:07 07/10/20 14:21 Oxycodone Hcl Immed Release 5 Mg Tablet PO 10 mg 5XD PRN Administration Pain (Scale Score 4-6) Pharmacy Consult 1 each 07/03/20 14:46 Consult Rx Perform Med Rec MISCELLANE ONCE PRN Consult order Sodium Chloride 3 ml 07/04/20 01:04 07/10/20 09:15 0.9 % Sodium Chloride Flush 3 Ml Syringe IVFLUSH 3 ml QSHIFT [facility] Administration Labs CBC & Chem 7: 07/07/20 05:48 07/07/20 05:48 Microbiology Microbiology Results: Microbiology 07/03/20 15:20 Blood - Venous Blood Culture - Final No growth after 5 days. 07/03/20 15:07 Blood - Venous Blood Culture - Final No growth after 5 days. Assessment and Plan (1) Lung mass: Status: Acute Assessment and Plan: hospital d#8 55yo F with COPD, OHS, IVY, lung mass, chronic hypoxic/hypercapneic respiratory failure but unable to get home O2, HTN, dyslipidemia, bipolar disorder sent in from PCP office due to hypoxia # LLL mass, Bx consistent with malignancy but primary not yet clear - s/p CT-guided biopsy 07/07/20-->> malignant. -Dr. Ahumada recommend brain MRI, outpatient PET -further immunostain pending # PNA - ceftriaxone + doxycycline d/c'ed p 5d # COPD exacerbation - steroids d/c'ed p 5d - continue ICS/LABA + LAMA + prn MICHAEL # IVY - continue home CPAP # chronic hypoxic/hypercapneic respiratory failure - case mgmt + outpt pulmonology office working with insurance to get her home O2- if she goes home without O2 she will certainly be re-admitted soon # dyslipidemia - continue statin # HTN - continue amlodipine, metoprolol, hydralazine # mood disorder - continue aripiprazole, valproate, duloxetine, clonazepam # chronic pain - continue oxycodone # VTE ppx - SCDs
[2020-07-10] MEDS: LORazepam 0.5 MG TABLET PO (20:00)
[2020-07-10] MEDS: Divalproex Sodium ER 500 MG TAB.ER.24H 1000 MG PO (21:27)
[2020-07-10] MEDS: DULoxetine HCl 60 MG CAPSULE.DR PO (21:27)
[2020-07-10] MEDS: Atorvastatin Calcium 20 MG TABLET PO (21:27)
[2020-07-10] MEDS: Amitriptyline HCl 25 MG TABLET PO (21:27)
[2020-07-11] VITALS (11 sets, daily range): BP systolic 89–140; BP diastolic 59–88; PULSE 77–105; RESP 17–19; TEMP 36.2–37.3; O2SAT 79–96
[2020-07-11] MEDS: oxyCODONE HCl Immed Release 5 MG TABLET 10 MG PO ×4 (04:59→20:05)
[2020-07-11] MEDS: Omeprazole 20 MG CAPSULE.DR PO ×2 (05:57→16:05)
[2020-07-11] MEDS: Fluticasone/Vilanterol 100/25 BLST.W.DEV 1 PUFF INHALE (07:56)
[2020-07-11] MEDS: Metoprolol Succinate ER 50 MG TAB.ER.24H PO (09:24)
[2020-07-11] MEDS: ondansetron HCL 4 MG/2 ML VIAL IVPUSH (09:25)
[2020-07-11] MEDS: clonazePAM 0.5 MG TABLET PO ×2 (09:25→20:09)
[2020-07-11] MEDS: Divalproex Sodium ER 500 MG TAB.ER.24H PO (09:25)
[2020-07-11] MEDS: amLODIPine Besylate 10 MG TABLET PO (09:25)
[2020-07-11] MEDS: 0.9 % Sodium Chloride Flush 3 ML SYRINGE IVFLUSH ×3 (09:25→23:04)
[2020-07-11] MEDS: ARIPiprazole 2 MG TABLET PO (09:25)
[2020-07-11] MEDS: hydrALAZINE HCl 50 MG TABLET PO ×3 (09:25→20:06)
--- NOTE | 2020-07-11 10:20 | HO.PM.IMPN ---
Subjective Subjective Date of Service: 07/11/20 Interval History: breathing improved; no wheezing or cough , no fever submitted [employer] application, awaiting for approval in order to get home O2 paid. Sad due to cancer diagnosis, desat with O2 off Review of Systems Gen: no fever Resp: +sob, no cough CV: no chest, no DUNN, no leg edema GI: No n/v, no abd pain Neuro: No confusion, anxiety Physical Exam Vital Signs: Vital Signs: Last Vital Signs Temp 97.1 F 07/11/20 07:59 Pulse 82 07/11/20 09:25 Resp 18 07/11/20 07:59 BP 133/75 07/11/20 09:25 Pulse Ox 95 07/11/20 07:59 Body Mass Index 36.8 Const: General: no acute distress, alert, awake and Physically active Nutritional Appearance: overweight Orientation/consciousness: patient oriented x3 Resp: Effort & Inspection: able to speak in complete sentences and no use of accessory muscles Cardio: Rate: regular rate Rhythm: regular rhythm GI: Palpation (GI): Soft to palpation and nontender Skin: General skin exam: no rashes or lesions noted Neuro: General: patient oriented x3 Motor exam (neuro): 5/5 motor strength present throughout Extrem: Right upper extremity: no cyanosis and no edema Left upper extremity: no cyanosis and no edema Psych: Affect: Sad affect present Objective Data Current Medications Generic Name Dose Route Start Last Admin Trade Name Freq PRN Reason Stop Dose Admin Acetaminophen 650 mg 07/04/20 01:04 07/10/20 16:44 Acetaminophen 325 Mg Tablet PO 650 mg Q6H PRN Administration Pain, Mild (Pain Scale 1-3) Amitriptyline HCl 25 mg 07/04/20 01:04 07/10/20 21:27 Amitriptyline Hcl 25 Mg Tablet PO 25 mg BEDTIME LONG Administration Amlodipine Besylate 10 mg 07/04/20 09:00 07/11/20 09:25 Amlodipine Besylate 10 Mg Tablet PO 10 mg DAILY LONG Administration Protocol Aripiprazole 2 mg 07/04/20 09:00 07/11/20 09:25 Aripiprazole 2 Mg Tablet PO 2 mg DAILY LONG Administration Atorvastatin Calcium 20 mg 07/04/20 01:04 07/10/20 21:27 Atorvastatin Calcium 20 Mg Tablet PO 20 mg BEDTIME LONG Administration Clonazepam 0.5 mg 07/04/20 01:04 07/11/20 09:25 Clonazepam 0.5 Mg Tablet PO 0.5 mg BID LONG Administration Divalproex Sodium 500 mg 07/04/20 09:00 07/11/20 09:25 Divalproex Sodium Er 500 Mg Tab.Er.24h PO 500 mg DAILY LONG Administration Divalproex Sodium 1,000 mg 07/04/20 01:04 07/10/20 21:27 Divalproex Sodium Er 500 Mg Tab.Er.24h PO 1,000 mg BEDTIME LONG Administration Docusate Sodium 100 mg 07/04/20 01:04 07/06/20 10:46 Docusate Sodium 100 Mg Capsule PO 100 mg DAILY PRN Administration Constipation Duloxetine HCl 60 mg 07/04/20 01:04 07/10/20 21:27 Duloxetine Hcl 60 Mg Capsule. PO 60 mg BEDTIME LONG Administration Fluticasone/Vilanterol 1 puff 07/04/20 09:00 07/11/20 07:56 Fluticasone/Vilanterol 100/25 Blst.W.Dev INHALE 1 puff DAILY LONG Administration Hydralazine HCl 50 mg 07/04/20 01:04 07/11/20 09:25 Hydralazine Hcl 50 Mg Tablet PO 50 mg TID LONG Administration Protocol Metoprolol Succinate 50 mg 07/04/20 09:00 07/11/20 09:24 Metoprolol Succinate Er 50 Mg Tab.Er.24h PO 50 mg DAILY LONG Administration Protocol Omeprazole 20 mg 07/04/20 06:30 07/11/20 05:57 Omeprazole 20 Mg Capsule. PO 20 mg BID@0630,1630 LONG Administration Ondansetron HCl 4 mg 07/04/20 01:04 07/11/20 09:25 Ondansetron Hcl 4 Mg/2 Ml Vial IVPUSH 4 mg Q8H PRN Administration Nausea and Vomiting Oxycodone HCl 10 mg 07/04/20 02:07 07/11/20 04:59 Oxycodone Hcl Immed Release 5 Mg Tablet PO 10 mg 5XD PRN Administration Pain (Scale Score 4-6) Pharmacy Consult 1 each 07/03/20 14:46 Consult Rx Perform Med Rec MISCELLANE ONCE PRN Consult order Sodium Chloride 3 ml 07/04/20 01:04 07/11/20 09:25 0.9 % Sodium Chloride Flush 3 Ml Syringe IVFLUSH 3 ml QSHIFT LONG Administration Labs CBC & Chem 7: 07/07/20 05:48 07/07/20 05:48 Microbiology Microbiology Results: Microbiology 07/03/20 15:20 Blood - Venous Blood Culture - Final No growth after 5 days. 07/03/20 15:07 Blood - Venous Blood Culture - Final No growth after 5 days. Assessment and Plan (1) Lung mass: Status: Acute Assessment and Plan: hospital d#8 55yo F with COPD, OHS, IVY, lung mass, chronic hypoxic/hypercapneic respiratory failure but unable to get home O2, HTN, dyslipidemia, bipolar disorder sent in from PCP office due to hypoxia # LLL mass, Bx consistent with malignancy but primary not yet clear - s/p CT-guided biopsy 07/07/20-->> malignant. -Dr. Ahumada recommend brain MRI, outpatient PET -further immunostain pending # PNA - ceftriaxone + doxycycline d/c'ed p 5d # COPD exacerbation - steroids d/c'ed p 5d - continue ICS/LABA + LAMA + prn MICHAEL -Oxygen # IVY - continue home CPAP # chronic hypoxic/hypercapneic respiratory failure - case mgmt + outpt pulmonology office working with insurance to get her home O2- if she goes home without O2 she will certainly be re-admitted soon # dyslipidemia - continue statin # HTN - continue amlodipine, metoprolol, hydralazine # mood disorder - continue aripiprazole, valproate, duloxetine, clonazepam # chronic pain - continue oxycodone #Anxiety--Klonopin PRN # VTE ppx - SCDs
[2020-07-11] MEDS: Divalproex Sodium ER 500 MG TAB.ER.24H 1000 MG PO (20:05)
[2020-07-11] MEDS: DULoxetine HCl 60 MG CAPSULE.DR PO (20:05)
[2020-07-11] MEDS: Amitriptyline HCl 25 MG TABLET PO (20:09)
[2020-07-11] MEDS: Atorvastatin Calcium 20 MG TABLET PO (20:09)
[2020-07-12] VITALS (17 sets, daily range): BP systolic 84–128; BP diastolic 60–78; PULSE 84–90; RESP 19–24; TEMP 36.1–37.7; O2SAT 91–98
[2020-07-12] MEDS: 0.9 % Sodium Chloride 500 ML 250 ML IV (02:23)
--- NOTE | 2020-07-12 02:43 | PC.NURSE ---
Patients BP was low at midnight running low 80's over 50' automated, manual was 118/78. At 2:30 automated BP was 84/63, manual was 100/70. Dr. Blue ordered 500 ml NS 0.9% @ 250ml/hr once.
[2020-07-12] MEDS: Omeprazole 20 MG CAPSULE.DR PO ×2 (05:45→16:11)
[2020-07-12] MEDS: Fluticasone/Vilanterol 100/25 BLST.W.DEV 1 PUFF INHALE (08:16)
[2020-07-12] MEDS: amLODIPine Besylate 10 MG TABLET PO (08:59)
[2020-07-12] MEDS: clonazePAM 0.5 MG TABLET PO ×2 (08:59→20:11)
[2020-07-12] MEDS: oxyCODONE HCl Immed Release 5 MG TABLET 10 MG PO (08:59)
[2020-07-12] MEDS: ARIPiprazole 2 MG TABLET PO (08:59)
[2020-07-12] MEDS: Metoprolol Succinate ER 50 MG TAB.ER.24H PO (09:00)
[2020-07-12] MEDS: Divalproex Sodium ER 500 MG TAB.ER.24H PO (09:00)
[2020-07-12] MEDS: 0.9 % Sodium Chloride Flush 3 ML SYRINGE IVFLUSH ×3 (09:00→23:30)
[2020-07-12] MEDS: hydrALAZINE HCl 50 MG TABLET PO ×2 (09:00→20:12)
--- NOTE | 2020-07-12 11:47 | HO.PM.IMPN ---
Subjective Subjective Date of Service: 07/12/20 Interval History: f/u for copd, lung mass, breathing is better. Overnight episode of low BP 84/63 but now normal, an episode of hypoxia with O2 sat of 79 and impoved with oxygen... Physical Exam Vital Signs: Vital Signs: Last Vital Signs Temp 97.1 F 07/12/20 07:52 Pulse 87 07/12/20 09:00 Resp 19 07/12/20 04:00 BP 116/62 07/12/20 09:00 Pulse Ox 91 L 07/12/20 07:52 Body Mass Index 36.8 Const: General: no acute distress, alert, awake and Physically active Nutritional Appearance: overweight Orientation/consciousness: patient oriented x3 HENMT: Head: Yes normocephalic and Yes atraumatic Eyes: Sclerae: sclerae normal Chest: Chest palpation & inspection: normal inspection of the chest Resp: Effort & Inspection: able to speak in complete sentences and no use of accessory muscles Auscultation: wheezes expiratory wheezes and scattered wheezes Cardio: Rate: regular rate Rhythm: regular rhythm GI: Palpation (GI): Soft to palpation and nontender Skin: General skin exam: no rashes or lesions noted Neuro: General: patient oriented x3 Cranial nerves: Yes CN's II-XII intact bilaterally and Yes Bilaterally intact EOM present Motor exam (neuro): 5/5 motor strength present throughout Extrem: General: Yes normal to inspection Right upper extremity: no cyanosis and no edema Left upper extremity: no cyanosis and no edema Psych: Affect: Sad affect present Objective Data Current Medications Generic Name Dose Route Start Last Admin Trade Name Charlie PRN Reason Stop Dose Admin Acetaminophen 650 mg 07/04/20 01:04 07/10/20 16:44 Acetaminophen 325 Mg Tablet PO 650 mg Q6H PRN Administration Pain, Mild (Pain Scale 1-3) Amitriptyline HCl 25 mg 07/04/20 01:04 07/11/20 20:09 Amitriptyline Hcl 25 Mg Tablet PO 25 mg BEDTIME LONG Administration Amlodipine Besylate 10 mg 07/04/20 09:00 07/12/20 08:59 Amlodipine Besylate 10 Mg Tablet PO 10 mg DAILY LONG Administration Protocol Aripiprazole 2 mg 07/04/20 09:00 07/12/20 08:59 Aripiprazole 2 Mg Tablet PO 2 mg DAILY LONG Administration Atorvastatin Calcium 20 mg 07/04/20 01:04 07/11/20 20:09 Atorvastatin Calcium 20 Mg Tablet PO 20 mg BEDTIME LONG Administration Clonazepam 0.5 mg 07/04/20 01:04 07/12/20 08:59 Clonazepam 0.5 Mg Tablet PO 0.5 mg BID LONG Administration Divalproex Sodium 500 mg 07/04/20 09:00 07/12/20 09:00 Divalproex Sodium Er 500 Mg Tab.Er.24h PO 500 mg DAILY LONG Administration Divalproex Sodium 1,000 mg 07/04/20 01:04 07/11/20 20:05 Divalproex Sodium Er 500 Mg Tab.Er.24h PO 1,000 mg BEDTIME LONG Administration Docusate Sodium 100 mg 07/04/20 01:04 07/06/20 10:46 Docusate Sodium 100 Mg Capsule PO 100 mg DAILY PRN Administration Constipation Duloxetine HCl 60 mg 07/04/20 01:04 07/11/20 20:05 Duloxetine Hcl 60 Mg Capsule. PO 60 mg BEDTIME LONG Administration Fluticasone/Vilanterol 1 puff 07/04/20 09:00 07/12/20 08:16 Fluticasone/Vilanterol 100/25 Blst.W.Dev INHALE 1 puff DAILY LONG Administration Hydralazine HCl 50 mg 07/04/20 01:04 07/12/20 09:00 Hydralazine Hcl 50 Mg Tablet PO 50 mg TID LONG Administration Protocol Metoprolol Succinate 50 mg 07/04/20 09:00 07/12/20 09:00 Metoprolol Succinate Er 50 Mg Tab.Er.24h PO 50 mg DAILY LONG Administration Protocol Omeprazole 20 mg 07/04/20 06:30 07/12/20 05:45 Omeprazole 20 Mg Capsule. PO 20 mg BID@0630,5570 LONG Administration Ondansetron HCl 4 mg 07/04/20 01:04 07/11/20 09:25 Ondansetron Hcl 4 Mg/2 Ml Vial IVPUSH 4 mg Q8H PRN Administration Nausea and Vomiting Oxycodone HCl 10 mg 07/04/20 02:07 07/12/20 08:59 Oxycodone Hcl Immed Release 5 Mg Tablet PO 10 mg 5XD PRN Administration Pain (Scale Score 4-6) Pharmacy Consult 1 each 07/03/20 14:46 Consult Rx Perform Med Rec MISCELLANE ONCE PRN Consult order Sodium Chloride 3 ml 07/04/20 01:04 07/12/20 09:00 0.9 % Sodium Chloride Flush 3 Ml Syringe IVFLUSH 3 ml QSHIFT LONG Administration Labs CBC & Chem 7: 07/07/20 05:48 07/07/20 05:48 Microbiology Microbiology Results: Microbiology 07/03/20 15:20 Blood - Venous Blood Culture - Final No growth after 5 days. 07/03/20 15:07 Blood - Venous Blood Culture - Final No growth after 5 days. Assessment and Plan (1) Lung mass: Status: Acute Assessment and Plan: hospital d#9 55yo F with COPD, OHS, IVY, lung mass, chronic hypoxic/hypercapneic respiratory failure but unable to get home O2, HTN, dyslipidemia, bipolar disorder sent in from PCP office due to hypoxia # LLL mass, Bx consistent with malignancy but primary not yet clear - s/p CT-guided biopsy 07/07/20-->> malignant. -Dr. Ahumada recommend brain MRI, outpatient PET -further immunostain pending # PNA - ceftriaxone + doxycycline d/c'ed p 5d # COPD exacerbation - steroids d/c'ed p 5d - continue ICS/LABA + LAMA + prn MICHAEL -Oxygen # IVY - continue home CPAP # chronic hypoxic/hypercapneic respiratory failure - case mgmt + outpt pulmonology office working with insurance to get her home O2- if she goes home without O2 she will certainly be re-admitted soon # dyslipidemia - continue statin # HTN - continue amlodipine, metoprolol, hydralazine # mood disorder - continue aripiprazole, valproate, duloxetine, clonazepam # chronic pain - continue oxycodone #Anxiety--Klonopin PRN # VTE ppx - SCDs
[2020-07-12 16:28] LABS: Pt Ventilation O2% 4 L
[2020-07-12 16:36] LABS: pH ABG 7.27 (7.35-7.45)
[2020-07-12 16:37] LABS: HCO3 ABG 44 mmol/L (22-26); PO2 ABG 67 mmHg (83-108)
[2020-07-12 16:38] LABS: Base Excess ABG 14.5
[2020-07-12 16:53] LABS: ABG PCO2 94 mmHg (32-45)
--- NOTE | 2020-07-12 18:45 | PC.NURSE ---
1542 Patient manual blood pressure was 106/64. O2 91 at 3L. Patient appeared to be lethargic but easily arousable. Falling asleep mid conversation. Patient also appeared to be shaky. Dropping her drinks. Dr. Kidd made aware. Instructed to hold blood pressure medication. ABG ordered. Critical pCO2 was 94. Patient started on CPAP. Telesitter and bed alarm on. Patient resting comfortably in bed.
[2020-07-12] MEDS: Divalproex Sodium ER 500 MG TAB.ER.24H 1000 MG PO (20:11)
[2020-07-12] MEDS: DULoxetine HCl 60 MG CAPSULE.DR PO (20:11)
[2020-07-12] MEDS: Atorvastatin Calcium 20 MG TABLET PO (20:11)
[2020-07-12] MEDS: Amitriptyline HCl 25 MG TABLET PO (20:11)
[2020-07-12 22:22] LABS: Pt Ventilation O2% 7 L
--- NOTE | 2020-07-12 22:26 | MHC.PIE ---
p; O2 sat in at 75% on cpap. pt boosted, hob elevated, resp notified, o2 increased from 4l to 6l. i; dr ellis notified; new order abg, ch xr e; will cont to monitor
[2020-07-12 22:27] LABS: Base Excess ABG 17.2; HCO3 ABG 46 mmol/L (22-26); PO2 ABG 74 mmHg (83-108)
[2020-07-12 22:29] LABS: ABG PCO2 91 mmHg (32-45)
[2020-07-13] VITALS (16 sets, daily range): BP systolic 72–150; BP diastolic 48–80; PULSE 79–93; RESP 16–20; TEMP 36.6–37.1; O2SAT 90–95
--- NOTE | 2020-07-13 04:34 | MHC.PIE ---
p; b/p , repeat shows manual i; dr ellis in room, new order ns boouls 250 wo now e; will cont to monitor
[2020-07-13] MEDS: 0.9 % Sodium Chloride 500 ML 250 ML IV (04:40)
[2020-07-13] MEDS: Omeprazole 20 MG CAPSULE.DR PO ×2 (05:26→15:24)
--- NOTE | 2020-07-13 08:28 | MHC.CM.PN ---
dc plan is home c vna and home o2 at this time, to transport. cm to cont. to follow.
[2020-07-13 09:01] LABS: Pt Ventilation O2% 3 L
[2020-07-13 09:05] LABS: Base Excess ABG 12.9; HCO3 ABG 39 mmol/L (22-26); PO2 ABG 74 mmHg (83-108)
[2020-07-13 09:09] LABS: ABG PCO2 62 mmHg (32-45)
[2020-07-13] MEDS: LORazepam 2 MG/ML VIAL 0.5 MG IVPUSH (09:55)
--- NOTE | 2020-07-13 09:56 | PC.NURSE ---
Pt received ativan while in MRI, ID band verified, Pt[s name and .
[2020-07-13] MEDS: amLODIPine Besylate 10 MG TABLET PO (10:45)
[2020-07-13] MEDS: Lidocaine 4 % Patch ADH..PATCH 1 PATCH TRANSDERMA (10:45)
[2020-07-13] MEDS: Metoprolol Succinate ER 50 MG TAB.ER.24H PO (10:48)
[2020-07-13] MEDS: hydrALAZINE HCl 50 MG TABLET PO ×3 (10:49→20:06)
[2020-07-13] MEDS: ARIPiprazole 2 MG TABLET PO (10:49)
[2020-07-13] MEDS: Divalproex Sodium ER 500 MG TAB.ER.24H PO (10:49)
[2020-07-13] MEDS: clonazePAM 0.5 MG TABLET PO ×2 (10:50→20:06)
[2020-07-13] MEDS: Fluticasone/Vilanterol 100/25 BLST.W.DEV 1 PUFF INHALE (12:18)
--- NOTE | 2020-07-13 12:32 | HO.PM.IMPN ---
Subjective Subjective Date of Service: 07/13/20 Interval History: f/u for copd, lung mass, breathing is better. Overnight episode of low BP 72/48 but now normal after NS bolus. She was also hypoxic overnight and ABG showed marked hypercarbia associated with decrease responsiveness and was put on CPAP and is doing much better ttoday, acidosis resolved and PCO2 has come [place]own from 94 to now 62 and is fully alert. Physical Exam Vital Signs: Vital Signs: Last Vital Signs Temp 98.1 F 07/13/20 11:42 Pulse 93 07/13/20 11:42 Resp 19 07/13/20 11:42 BP 143/72 H 07/13/20 11:42 Pulse Ox 94 07/13/20 11:42 Body Mass Index 36.8 Const: General: no acute distress, alert, awake and Physically active Nutritional Appearance: overweight Orientation/consciousness: patient oriented x3 HENMT: Head: Yes normocephalic and Yes atraumatic Eyes: Sclerae: sclerae normal Chest: Chest palpation & inspection: normal inspection of the chest Resp: Effort & Inspection: able to speak in complete sentences and no use of accessory muscles Auscultation: wheezes expiratory wheezes and scattered wheezes Cardio: Rate: regular rate Rhythm: regular rhythm GI: Palpation (GI): Soft to palpation and nontender Skin: General skin exam: no rashes or lesions noted Neuro: General: patient oriented x3 Cranial nerves: Yes CN's II-XII intact bilaterally and Yes Bilaterally intact EOM present Motor exam (neuro): 5/5 motor strength present throughout Extrem: General: Yes normal to inspection Right upper extremity: no cyanosis and no edema Left upper extremity: no cyanosis and no edema Psych: Affect: Sad affect present Objective Data Current Medications Generic Name Dose Route Start Last Admin Trade Name Freq PRN Reason Stop Dose Admin Acetaminophen 650 mg 07/04/20 01:04 07/10/20 16:44 Acetaminophen 325 Mg Tablet PO 650 mg Q6H PRN Administration Pain, Mild (Pain Scale 1-3) Amitriptyline HCl 25 mg 07/04/20 01:04 07/12/20 20:11 Amitriptyline Hcl 25 Mg Tablet PO 25 mg BEDTIME LONG Administration Amlodipine Besylate 10 mg 07/04/20 09:00 07/13/20 10:45 Amlodipine Besylate 10 Mg Tablet PO 10 mg DAILY LONG Administration Protocol Constanceprazole 2 mg 07/04/20 09:00 07/13/20 10:49 Aripiprazole 2 Mg Tablet PO 2 mg DAILY LONG Administration Atorvastatin Calcium 20 mg 07/04/20 01:04 07/12/20 20:11 Atorvastatin Calcium 20 Mg Tablet PO 20 mg BEDTIME LONG Administration Clonazepam 0.5 mg 07/04/20 01:04 07/13/20 10:50 Clonazepam 0.5 Mg Tablet PO 0.5 mg BID LONG Administration Divalproex Sodium 500 mg 07/04/20 09:00 07/13/20 10:49 Divalproex Sodium Er 500 Mg Tab.Er.24h PO 500 mg DAILY LONG Administration Divalproex Sodium 1,000 mg 07/04/20 01:04 07/12/20 20:11 Divalproex Sodium Er 500 Mg Tab.Er.24h PO 1,000 mg BEDTIME LONG Administration Docusate Sodium 100 mg 07/04/20 01:04 07/06/20 10:46 Docusate Sodium 100 Mg Capsule PO 100 mg DAILY PRN Administration Constipation Duloxetine HCl 60 mg 07/04/20 01:04 07/12/20 20:11 Duloxetine Hcl 60 Mg Capsule. PO 60 mg BEDTIME LONG Administration Fluticasone/Vilanterol 1 puff 07/04/20 09:00 07/13/20 12:18 Fluticasone/Vilanterol 100/25 Blst.W.Dev INHALE 1 puff DAILY LONG Administration Hydralazine HCl 50 mg 07/04/20 01:04 07/13/20 10:49 Hydralazine Hcl 50 Mg Tablet PO 50 mg TID LONG Administration Protocol Lidocaine 1 patch 07/13/20 09:00 07/13/20 10:45 Lidocaine 4 % Patch Adh..Patch TRANSDERMA 1 patch DAILY LONG Administration Protocol Metoprolol Succinate 50 mg 07/04/20 09:00 07/13/20 10:48 Metoprolol Succinate Er 50 Mg Tab.Er.24h PO 50 mg DAILY LONG Administration Protocol Omeprazole 20 mg 07/04/20 06:30 07/13/20 05:26 Omeprazole 20 Mg Capsule. PO 20 mg BID@0630,1630 LONG Administration Ondansetron HCl 4 mg 07/04/20 01:04 07/11/20 09:25 Ondansetron Hcl 4 Mg/2 Ml Vial IVPUSH 4 mg Q8H PRN Administration Nausea and Vomiting Oxycodone HCl 10 mg 07/04/20 02:07 07/12/20 08:59 Oxycodone Hcl Immed Release 5 Mg Tablet PO 10 mg 5XD PRN Administration Pain (Scale Score 4-6) Pharmacy Consult 1 each 07/03/20 14:46 Consult Rx Perform Med Rec MISCELLANE ONCE PRN Consult order Sodium Chloride 3 ml 07/04/20 01:04 07/13/20 10:55 0.9 % Sodium Chloride Flush 3 Ml Syringe IVFLUSH Not Given QSHIFT LONG Labs CBC & Chem 7: 07/07/20 05:48 07/07/20 05:48 Microbiology Microbiology Results: Microbiology 07/03/20 15:20 Blood - Venous Blood Culture - Final No growth after 5 days. 07/03/20 15:07 Blood - Venous Blood Culture - Final No growth after 5 days. Assessment and Plan (1) Lung mass: Status: Acute Assessment and Plan: hospital d#9 55yo F with COPD, OHS, IVY, lung mass, chronic hypoxic/hypercapneic respiratory failure but unable to get home O2, HTN, dyslipidemia, bipolar disorder sent in from PCP office due to hypoxia # LLL mass, Bx consistent with malignancy but primary not yet clear - s/p CT-guided biopsy 07/07/20-->> malignant. -Dr. Ahumada recommend brain MRI--done today 07/13/20 no evidence of mets, outpatient PET to be arranged by onoclogy -Final pathology report: Poorly differentiated carcinoma. # PNA - ceftriaxone + doxycycline d/c'ed after 5d # COPD exacerbation, with chronic hypercarbia - steroids d/c'ed p 5d - continue ICS/LABA + LAMA + prn MICHAEL -Oxygen, will need home o2 # IVY - CPAP at night to sleep # chronic hypoxic/hypercapneic respiratory failure - case mgmt + outpt pulmonology office working with insurance to get her home O2- if she goes home without O2 she will certainly be re-admitted soon # dyslipidemia - continue statin # HTN - continue amlodipine, metoprolol, hydralazine # mood disorder - continue aripiprazole, valproate, duloxetine, clonazepam # chronic pain - continue oxycodone #Anxiety--Klonopin PRN # VTE ppx - SCDs
[2020-07-13] MEDS: 0.9 % Sodium Chloride Flush 3 ML SYRINGE IVFLUSH (15:24)
[2020-07-13] MEDS: oxyCODONE HCl Immed Release 5 MG TABLET 10 MG PO ×2 (15:24→20:05)
--- NOTE | 2020-07-13 15:25 | MHC.CLN ---
F/U PO INTAKE 75% AVG DIET RX: REGULAR-APPROPRIATE FOLLOWING
--- NOTE | 2020-07-13 16:57 | CONS_ITS ---
DATE OF SERVICE: 07/13/2020 CHIEF COMPLAINT: Shortness of breath, hypoxia. HISTORY OF PRESENT ILLNESS: Ms. Seth is a 55-year-old woman, with known history of COPD, history of respiratory failure, requiring BiPAP in the past. She was admitted to the [facility] back in the fall and ultimately required BiPAP at that time and admitted to SNF, unfortunately complicated by COVID-19 infection. She has not been able to get oxygen for her home due to insurance issues. She is developing worsening shortness of breath, decided to coming back to the [facility] for further evaluation. There, she had a CT scan of the chest demonstrating interval worsening of a left lower lobe masslike density. The patient is admitted to the hospital and she was evaluated by Infectious Disease, was treated for lower respiratory infection. No COVID found at the time. The patient also consulted by Hematology/Oncology for suspicion of lung cancer. The patient underwent a CT-guided biopsy demonstrating poorly differentiated adenocarcinoma. She has subsequently had a MRI of the brain demonstrating no definative metastatic disease. Although, limited. She has been on oxygen overnight. She did have an episode of hypotension. She did have an ABG demonstrating elevations in her CO2 demonstrating acute on chronic hypercarbic respiratory failure. Subsequent to that, the patient was treated with noninvasive ventilation and her blood gas from today improved, now with pCO2 of 62, which appears to be more consistent with chronic hypercarbic respiratory failure due to her COPD. REVIEW OF SYSTEMS: Ten systems reviewed. Denies any [employer] symptoms. Does complain of cough and shortness of breath. She had been treated for pneumonia and subsequently treated for COPD with an exacerbation along with acute on chronic hypercarbic respiratory failure due to her ongoing COPD. PAST MEDICAL HISTORY: CHF, spinal surgery, bipolar, CAD, chronic back pain, COPD, depression, fibromyalgia, hypertension, hypoventilation syndrome, obesity, PTSD, renal failure, restless legs syndrome, rotator cuff strain, sleep disorder, smoker. ALLERGIES: PLEASE REFER TO THE MAR FOR THE FULL LIST INCLUDING PENICILLIN, EFFEXOR, CYCLOBENZAPRINE, FENTANYL, AND TOPAMAX, UNCLEAR OF THE REACTIONS. CURRENT MEDICATIONS: Please refer to the MAR for the full list. Currently on amitriptyline, Lipitor, Colace, hydralazine, Zofran, omeprazole, Abilify, Norvasc, Depakote, Breo, Toprol, Roxicodone, Klonopin, among others. REVIEW OF SYSTEMS: Ten systems reviewed. Denies any [employer] symptoms. Denies any HEENT symptoms. Complains of the respiratory and cardiac symptoms as stated above. Denies any GI or symptoms. Does have some just generalized weakness. The rest of the 10-organ system is negative. SOCIAL HISTORY: Positive smoker. Uses a cane. FAMILY HISTORY: Hypertension. PHYSICAL EXAMINATION: VITAL SIGNS: Stable. Saturating 90% on 2 L nasal cannula. She is still hypertensive. HEENT: Pupils are equal and reactive to light. Oropharynx clear. NECK: Supple. LUNGS: Diminished, but clear. No crackles appreciated. CARDIAC: Regular rhythm and regular rate. ABDOMEN: Positive bowel sounds. Soft. EXTREMITIES: No clubbing or cyanosis. LABORATORY DATA: Again, her blood gas demonstrated pH 7.40 with a pCO2 of 62, pO2 of 74, consistent with chronic respiratory acidosis with renal compensation. White count 16, hemoglobin 11.2. Creatinine 0.8, bicarb 29 from the 2nd. Serology negative. IMAGING STUDIES: She has interval worsening right lower lobe mass when compared to previous CAT scan from April 2020. ASSESSMENT: Ms. Seth is a 55-year-old woman with a known history of chronic obstructive pulmonary disease, respiratory failure, tobacco dependency, presenting with worsening respiratory symptoms after developing COVID. 1. Acute on chronic hypercarbic respiratory failure secondary to her chronic obstructive pulmonary disease. 2. Chronic obstructive pulmonary disease exacerbation. 3. 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 The patient did have a brain MRI that was very limited due to movement and it states that there is no demonstrated evidence of abnormal enhancement to strongly suggest metabolic disease. However, it does mention a few scattered lytic foci of restricted diffusion, I am not clear exactly of any concerns from a metastatic standpoint. RECOMMENDATIONS: 1. Continue with oxygen supplementation. 2. The patient will need to be on noninvasive ventilation for her chronic respiratory failure. She has had issues in the past with her [employer]. The patient does have a very serious condition who carries a poor prognosis. Noninvasive ventilation will provide gas exchange in improved prognosis and decreased hospitalizations. Therefore, I will talk to the local [employer] company about providing noninvasive ventilator for the home. 3. PET scan as an outpatient to address metastatic disease. At this point, does not appear to have anything obvious on the MRI of the brain, but still PET scan will be helpful to see the staging radiologically of the patient. 4. Continue with current respiratory therapy, prednisone taper. Okay to stop antibiotics. Prior to the patient going home, she would need both noninvasive ventilator and oxygen supplementation through her local [employer] company. Further recommendations based on forthcoming data. MD MUSTAPHA Ocampo/EDVIN / [id number] MTDD
[2020-07-13] MEDS: Divalproex Sodium ER 500 MG TAB.ER.24H 1000 MG PO (20:06)
[2020-07-13] MEDS: Atorvastatin Calcium 20 MG TABLET PO (20:06)
[2020-07-13] MEDS: DULoxetine HCl 60 MG CAPSULE.DR PO (20:06)
[2020-07-13] MEDS: Amitriptyline HCl 25 MG TABLET PO (20:06)
[2020-07-14] MEDS: oxyCODONE HCl Immed Release 5 MG TABLET 10 MG PO ×2 (00:39→10:08)
[2020-07-14] MEDS: 0.9 % Sodium Chloride Flush 3 ML SYRINGE IVFLUSH (00:40)
[2020-07-14 00:48] VITALS: PULSE 82; RESP 16; O2SAT 97
[2020-07-14] MEDS: Acetaminophen 325 MG TABLET 650 MG PO (02:02)
[2020-07-14 04:00] VITALS: BP 130/69; PULSE 84; RESP 18; TEMP 36.1
[2020-07-14] MEDS: Omeprazole 20 MG CAPSULE.DR PO (06:06)
[2020-07-14] MEDS: Fluticasone/Vilanterol 100/25 BLST.W.DEV 1 PUFF INHALE (07:29)
[2020-07-14 07:30] VITALS: O2SAT 92
[2020-07-14 08:00] VITALS: BP 159/85; PULSE 88; RESP 18; TEMP 36.5; O2SAT 96
--- NOTE | 2020-07-14 09:37 | PM.DS ---
DS: Providers Provider Date of Service: 10/03/20 Date of admission: 07/03/20 20:14 Primary care physician: Cassandra Oconnor MD Consults: 07/03/20 22:56 Consult to Infectious Diseases Routine Consulting Provider: Infectious Disease Reason for consultation: PNA Has provider been notified: No 07/09/20 14:17 Consult to Hematology / Oncology [place]ine [place] [facility] [place] Reason for consultation: new dx lung CA 07/13/20 07:48 Consult to Pulmonology Routine Consulting [place] [facility] [place] Reason for consultation: acute hypercarbic resp failure Has provider been notified: No DS: Diagnosis Discharge Diagnosis (1) Lung mass: Status: Acute DS: Medications Discharge Medications Home Medications: Home Medications Medication Instructions Recorded Confirmed amitriptyline 25 mg PO BEDTIME 04/21/20 07/03/20 amlodipine 10 mg PO DAILY 04/21/20 07/03/20 aspirin 81 mg PO DAILY 04/21/20 07/03/20 divalproex 500 mg PO DAILY 04/21/20 07/03/20 duloxetine 60 mg PO BEDTIME 04/21/20 07/03/20 omeprazole 20 mg PO BID@0630,1630 04/21/20 07/03/20 Breo Ellipta 1 inh INHALATION DAILY 05/26/20 07/03/20 Incruse Ellipta 1 inh INHALATION DAILY 05/26/20 07/03/20 aripiprazole 2 mg PO DAILY 05/26/20 07/03/20 clonazepam 0.5 mg PO BID 05/26/20 07/03/20 divalproex 1,000 mg PO BEDTIME 05/26/20 07/03/20 hydralazine 50 mg PO TID 05/26/20 07/03/20 metoprolol succinate 50 mg PO DAILY 05/26/20 07/03/20 oxycodone-acetaminophen 1 tab PO 5XD PRN 05/26/20 07/03/20 atorvastatin 20 mg PO BEDTIME 07/03/20 07/03/20 Previous Rx's Medication Instructions Recorded albuterol sulfate 2 puff INHALATION Q4-6H PRN #8.5 g 04/30/20 DS: Summary Hospital Course Hospital Course: Date of Yfjdpgpvn20/29/21 Chief Complaint: hypoxia This is a 54-year-old female with history of COPD, recent admission in April and May for respiratory failure who presents from [facility] with hypoxia. In April for respiratory failure requiring BiPAP. She was unable to get supplemental oxygen or CPAP due to insurance issue. She was discharged to group home facility in hopes that she was able to get oxygen from there. She was discharged with CPAP but was able to be weaned off of oxygen at SNF. Unfortunately she also contracted COVID-19 at the SNF. She was admitted again in May for respiratory failure and pneumonia, at which time her caronavirus igg was positive. She was able to be weaned off oxygen prior to discharge. She followed up with pulmonology earlier this month and was noted to be hypoxic in the clinic. Again she was up and able to obtain supplemental oxygen at home due to restrictions by her insurance company. She has been able to use her CPAP machine at home. Today she had a follow-up appointment at [facility] and was noted to be hypoxic and sent to the hospital for evaluation. She reports chronic shortness of breath, dry cough and chills. Chest CT shows hazy opacity in the right upper lobe where her previous pneumonia was. Previously documented lung of mass is also redemonstrated and biopsy is recommended. Patient has been afebrile but hypoxic on room air. She is saturating mid 90s on 2 L nasal cannula. She was treated with IV antibiotics, IV solumedrol and the decision was made to admit her for further management. Date of Discharge: 07/14/20 Hospital course: 55yo F with COPD, OHS, IVY, lung mass, chronic hypoxic/hypercapneic respiratory failure but unable to get home O2 due to insurance issues, HTN, dyslipidemia, bipolar disordersent in from PCP office due to hypoxia # LLL mass, she had a lung biopsy on July 07. Pathology report showed poorly differentiated adenocarcinoma. She has been evaluated by Dr. Ahumada and will follow up on outpatient basis for treatment options. MRI of the brain done on 07/13/2019 lunch showed no evidence of metastatic disease. She will have a PET scan arranged on outpatient basis by Dr. Ahumada. The results of the pathology has been communicated with the patient # PNA--treated ceftriaxone and doxycycline. There is no evidence of # COPD exacerbation, with chronic hypercarbia--treated with steroid for 5 days.- continue ICS (inhaled corticosteroid)/LABA (long-acting beta agonists). + LAMA (Long acting anti muscainic antagonist) + prn MICHAEL (Short actin beta agonist). Case Management has worked on her insurance and she is not able to get home oxygen. She will be discharged to home oxygen at 2 L continuously. Have she required intermittent CPAP during hospitalization because of hypercarbia with significant increase in CO2. Patient was followed in the hospital by the pulmonology service they will continue to monitor her on outpatient basis. # IVY--to continue use of CPAP at home including # chronic hypoxic/hypercapneic respiratory failure--as stated above she will be going home with home oxygen. # dyslipidemia- continue statin # HTN - continue amlodipine, metoprolol, hydralazine # mood disorder - continue aripiprazole, valproate, duloxetine, clonazepam # chronic pain - continue oxycodone #Anxiety--Klonopin PRN Status at Discharge Functional status at discharge: independent ambulation Overall status at discharge: patient is back to baseline Time Spent with Patient Time attestation: Total time spent providing and/or coordinating discharge services: Discharge coordination time: Greater than 30 minutes Physical Exam Const: General: no acute distress, alert, awake and Physically active Nutritional Appearance: overweight Orientation/consciousness: patient oriented x3 HENMT: Head: Yes normocephalic and Yes atraumatic Eyes: Sclerae: sclerae normal Chest: Chest palpation & inspection: normal inspection of the chest Resp: Effort & Inspection: able to speak in complete sentences and no use of accessory muscles Auscultation: wheezes expiratory wheezes and scattered wheezes Cardio: Rate: regular rate Rhythm: regular rhythm GI: Palpation (GI): Soft to palpation and nontender Skin: General skin exam: no rashes or lesions noted Neuro: General: patient oriented x3 Cranial nerves: Yes CN's II-XII intact bilaterally and Yes Bilaterally intact EOM present Motor exam (neuro): 5/5 motor strength present throughout Extrem: General: Yes normal to inspection Right upper extremity: no cyanosis and no edema Left upper extremity: no cyanosis and no edema Psych: Affect: Sad affect present DS: Data Data Completed and Pending Completed studies during hospitalization [Text1]: Pending at discharge 07/07/20 14:08 Surgical [PTH] Routine Procedures Assistance with Respiratory Ventilation, Less than 24 Consecutive Hours, Continuous Positive Airway Pressure (04/21/20) Labs on day of discharge: Laboratory Tests 07/03/20 07/03/20 07/03/20 15:06 15:06 15:06 WBC 11.9 H RBC 3.72 L Hgb 10.4 L Hct 34.4 L MCV 92.5 MCH 28.0 MCHC 30.2 L RDW 17.8 H Plt Count 319 D MPV 9.1 L Immature Gran % (Auto) 1.3 H Neut % (Auto) 63.8 Lymph % (Auto) 25.8 Bell % (Auto) 8.0 Eos % (Auto) 0.7 Baso % (Auto) 0.4 Lymph # (Auto) 3.1 Bell # (Auto) 1.0 Eos # (Auto) 0.1 Baso # (Auto) 0.1 Abs Immat Gran (auto) 0.15 H Absolute Neuts (auto) 7.6 Absolute Nucleated RBC 0.000 Nucleated RBC % (auto) 0.0 PT INR APTT ABG pH ABG pCO2 ABG pO2 ABG HCO3 ABG O2 Saturation ABG Base Excess VBG pH VBG pCO2 VBG pO2 VBG HCO3 VBG O2 Saturation VBG Base Excess Oxygen Given Sodium 142 Potassium 3.5 Chloride 103 Carbon Dioxide 31 H Anion Gap 12 BUN 10 Creatinine 0.92 Estim Creat Clear Calc 77.4 Estimated GFR > 60 Random Glucose 94 Lactic Acid Calcium 7.8 L D Magnesium 1.6 Total Bilirubin 0.5 Direct Bilirubin < 0.2 AST 10 ALT < 6 Alkaline Phosphatase 86 Troponin I High Sens C-Reactive Protein B-Natriuretic Peptide 107 H Total Protein 6.2 L Albumin 3.7 Procalcitonin Valproic Acid 65.6 COVID-19 (ANA) COVID-19 Clin Com 07/03/20 07/03/20 07/03/20 15:06 15:06 15:06 WBC RBC Hgb Hct MCV MCH MCHC RDW Plt Count MPV Immature Gran % (Auto) Neut % (Auto) Lymph % (Auto) Bell % (Auto) Eos % (Auto) Baso % (Auto) Lymph # (Auto) Bell # (Auto) Eos # (Auto) Baso # (Auto) Abs Immat Gran (auto) Absolute Neuts (auto) Absolute Nucleated RBC Nucleated RBC % (auto) PT 11.6 INR 1.0 APTT 41.5 H ABG pH ABG pCO2 ABG pO2 ABG HCO3 ABG O2 Saturation ABG Base Excess VBG pH VBG pCO2 VBG pO2 VBG HCO3 VBG O2 Saturation VBG Base Excess Oxygen Given Sodium Potassium Chloride Carbon Dioxide Anion Gap BUN Creatinine Estim Creat Clear Calc Estimated GFR Random Glucose Lactic Acid 1.6 Calcium Magnesium Total Bilirubin Direct Bilirubin AST ALT Alkaline Phosphatase Troponin I High Sens 5.2 C-Reactive Protein B-Natriuretic Peptide Total Protein Albumin Procalcitonin Valproic Acid COVID-19 (ANA) COVID-19 Clin Com 07/03/20 07/03/20 07/03/20 15:07 15:20 15:50 WBC RBC Hgb Hct MCV MCH MCHC RDW Plt Count MPV Immature Gran % (Auto) Neut % (Auto) Lymph % (Auto) Bell % (Auto) Eos % (Auto) Baso % (Auto) Lymph # (Auto) Bell # (Auto) Eos # (Auto) Baso # (Auto) Abs Immat Gran (auto) Absolute Neuts (auto) Absolute Nucleated RBC Nucleated RBC % (auto) PT INR APTT ABG pH 7.29 L ABG pCO2 76 H* ABG pO2 84 ABG HCO3 36 H ABG O2 Saturation 94.0 ABG Base Excess 94.0 VBG pH 7.29 L VBG pCO2 66 VBG pO2 85 VBG HCO3 32 VBG O2 Saturation 94.0 VBG Base Excess 4.7 Oxygen Given 2 L Sodium Potassium Chloride Carbon Dioxide Anion Gap BUN Creatinine Estim Creat Clear Calc Estimated GFR Random Glucose Lactic Acid Calcium Magnesium Total Bilirubin Direct Bilirubin AST ALT Alkaline Phosphatase Troponin I High Sens C-Reactive Protein B-Natriuretic Peptide Total Protein Albumin Procalcitonin Valproic Acid COVID-19 (ANA) Negative COVID-19 Clin Com See Note 07/04/20 07/04/20 07/04/20 00:51 06:52 06:52 WBC 10.7 RBC 3.80 L Hgb 10.4 L Hct 35.1 L MCV 92.4 MCH 27.4 MCHC 29.6 L RDW 17.4 H Plt Count 325 MPV 9.1 L Immature Gran % (Auto) 0.8 H Neut % (Auto) 85.6 H Lymph % (Auto) 10.7 L Bell % (Auto) 2.7 Eos % (Auto) 0.0 Baso % (Auto) 0.2 Lymph # (Auto) 1.1 L Bell # (Auto) 0.3 Eos # (Auto) 0.0 Baso # (Auto) 0.0 Abs Immat Gran (auto) 0.09 H Absolute Neuts (auto) 9.1 H Absolute Nucleated RBC 0.000 Nucleated RBC % (auto) 0.0 PT INR APTT ABG pH 7.30 L ABG pCO2 69 H* ABG pO2 79 L ABG HCO3 35 H ABG O2 Saturation 94.0 ABG Base Excess 7.3 VBG pH VBG pCO2 VBG pO2 VBG HCO3 VBG O2 Saturation VBG Base Excess Oxygen Given 3 L Sodium 141 Potassium 4.3 D Chloride 101 Carbon Dioxide 28 Anion Gap 16 BUN 17 H D Creatinine 0.97 Estim Creat Clear Calc 73.4 Estimated GFR 59 Random Glucose 124 H Lactic Acid Calcium 7.8 L Magnesium Total Bilirubin Direct Bilirubin AST ALT Alkaline Phosphatase Troponin I High Sens C-Reactive Protein B-Natriuretic Peptide Total Protein Albumin Procalcitonin Valproic Acid COVID-19 (ANA) COVID-19 Clin Com 07/05/20 07/07/20 07/07/20 20:38 05:48 05:48 WBC 16.0 H RBC 4.10 L Hgb 11.2 L Hct 37.6 MCV 91.7 MCH 27.3 MCHC 29.8 L RDW 17.3 H Plt Count 327 MPV 9.4 Immature Gran % (Auto) 1.1 H Neut % (Auto) 64.2 Lymph % (Auto) 25.3 Bell % (Auto) 9.3 Eos % (Auto) 0.0 Baso % (Auto) 0.1 Lymph # (Auto) 4.0 Bell # (Auto) 1.5 H Eos # (Auto) 0.0 Baso # (Auto) 0.0 Abs Immat Gran (auto) 0.18 H Absolute Neuts (auto) 10.2 H Absolute Nucleated RBC 0.000 Nucleated RBC % (auto) 0.0 PT INR APTT ABG pH ABG pCO2 ABG pO2 ABG HCO3 ABG O2 Saturation ABG Base Excess VBG pH VBG pCO2 VBG pO2 VBG HCO3 VBG O2 Saturation VBG Base Excess Oxygen Given Sodium 143 Potassium 3.8 Chloride 103 Carbon Dioxide 29 Anion Gap 15 BUN 26 H D Creatinine 0.80 Estim Creat Clear Calc 88.0 Estimated GFR > 60 Random Glucose 89 Lactic Acid Calcium 8.5 D Magnesium Total Bilirubin Direct Bilirubin AST ALT Alkaline Phosphatase Troponin I High Sens C-Reactive Protein 0.10 B-Natriuretic Peptide Total Protein Albumin Procalcitonin < 0.02 Valproic Acid COVID-19 (ANA) COVID-19 Clin Com 07/07/20 07/12/20 07/12/20 05:48 16:20 22:15 WBC RBC Hgb Hct MCV MCH MCHC RDW Plt Count MPV Immature Gran % (Auto) Neut % (Auto) Lymph % (Auto) Bell % (Auto) Eos % (Auto) Baso % (Auto) Lymph # (Auto) Bell # (Auto) Eos # (Auto) Baso # (Auto) Abs Immat Gran (auto) Absolute Neuts (auto) Absolute Nucleated RBC Nucleated RBC % (auto) PT INR APTT ABG pH 7.27 L 7.30 L ABG pCO2 94 H* 91 H* ABG pO2 67 L 74 L ABG HCO3 44 H 46 H ABG O2 Saturation 89.0 94.0 ABG Base Excess 14.5 17.2 VBG pH VBG pCO2 VBG pO2 VBG HCO3 VBG O2 Saturation VBG Base Excess Oxygen Given 4 L 7 L Sodium Potassium Chloride Carbon Dioxide Anion Gap BUN Creatinine Estim Creat Clear Calc Estimated GFR Random Glucose Lactic Acid Calcium Magnesium Total Bilirubin Direct Bilirubin AST ALT Alkaline Phosphatase Troponin I High Sens C-Reactive Protein B-Natriuretic Peptide Total Protein Albumin Procalcitonin 0.02 Valproic Acid COVID-19 (ANA) COVID-19 Clin Com 07/13/20 08:54 WBC RBC Hgb Hct MCV MCH MCHC RDW Plt Count MPV Immature Gran % (Auto) Neut % (Auto) Lymph % (Auto) Bell % (Auto) Eos % (Auto) Baso % (Auto) Lymph # (Auto) Bell # (Auto) Eos # (Auto) Baso # (Auto) Abs Immat Gran (auto) Absolute Neuts (auto) Absolute Nucleated RBC Nucleated RBC % (auto) PT INR APTT ABG pH 7.40 ABG pCO2 62 H* ABG pO2 74 L ABG HCO3 39 H ABG O2 Saturation 93.0 ABG Base Excess 12.9 VBG pH VBG pCO2 VBG pO2 VBG HCO3 VBG O2 Saturation VBG Base Excess Oxygen Given 3 L Sodium Potassium Chloride Carbon Dioxide Anion Gap BUN Creatinine Estim Creat Clear Calc Estimated GFR Random Glucose Lactic Acid Calcium Magnesium Total Bilirubin Direct Bilirubin AST ALT Alkaline Phosphatase Troponin I High Sens C-Reactive Protein B-Natriuretic Peptide Total Protein Albumin Procalcitonin Valproic Acid COVID-19 (ANA) COVID-19 Clin Com Discharge Plan Discharge Anticipated Discharge Date/Time: 07/14/20 09:47 Patient Disposition: Home Health Service Discharge Diagnosis: lung mass, hypoxia Referrals: [facility] [Outside] - 1 Day ([facility] nursing for diagnosis sign symptoms management reinforcement of teaching diagnosis and medication reconcilation respiratory thearpist to set up home oxygen and have -e-cylinder oxygen brought to patient for transportation transport ) Cassandra Oconnor MD [Primary Care Provider] - Aliza Ahumada MD [Physician] - 1 Week (follow up on lung cancer and evaluation for PET) Discharge Medications: Continued amitriptyline 25 mg tablet 25 mg PO BEDTIME RF: 0 amlodipine 10 mg tablet 10 mg PO DAILY RF: 0 divalproex 500 mg tablet extended release 24 hr 500 mg PO DAILY RF: 0 omeprazole 20 mg capsule,delayed release(DR/EC) 20 mg PO BID RF: 0 duloxetine 60 mg capsule,delayed release(DR/EC) 60 mg PO BEDTIME RF: 0 albuterol sulfate 90 mcg/actuation HFA aerosol inhaler 2 puff inhalation Q4-6H PRN (Reason: shortness of breath or wheezing) Qty: 8.5 RF: 0 metoprolol succinate 50 mg Tablet Extended Release 24 Hr 50 mg PO DAILY RF: 0 Breo Ellipta 100-25 mcg/dose Blister With Device 1 inh INHALATION DAILY RF: 0 clonazepam 0.5 mg tablet 0.5 mg PO TID RF: 0 oxycodone-acetaminophen 10-325 mg tablet 1 tab PO 5XD PRN (Reason: Pain (Scale Score 4-6)) RF: 0 Incruse Ellipta 62.5 mcg/actuation Blister With Device 1 inh INHALATION DAILY RF: 0 hydralazine 50 mg Tablet 50 mg PO TID RF: 0 aripiprazole 2 mg Tablet 2 mg PO DAILY RF: 0 atorvastatin 20 mg Tablet 20 mg PO BEDTIME RF: 0 No Action ondansetron HCl [Zofran] 4 mg Tablet 4 mg PO Q6H Qty: 30 RF: 3 ferrous sulfate 325 mg (65 mg iron) tablet 1 tab PO BID RF: 0 divalproex 500 mg tablet extended release 24 hr 1,000 mg PO BEDTIME RF: 0 cefuroxime axetil 250 mg tablet 250 mg PO Q12H Qty: 10 RF: 0 Suprep Bowel Prep Kit 17.5-3.13-1.6 gram recon soln See Rx Instructions PO .COMPLEX Qty: 354 RF: 0 Discharge Orders: Discharge Order (Routine); Ordered 07/14/20 Ordered By: [place] Diet: advance to usual diet Activity on Discharge: As tolerated Stand Alone Forms: Patient Portal Discharge page Visit Report Forms: Patient Portal Discharge page Care Plan Goals: to prevent hospitalization and treatment of lung cancer Health Concerns: lung cancer Plan of Treatment: Use oxcygen as directed and follow up with DR. Ahumada for follow up on lung cancer and treatment option and PET scan Assessment: lung mass, hypoxia Discharge Date/Time: 07/14/20 14:10
[2020-07-14] MEDS: Metoprolol Succinate ER 50 MG TAB.ER.24H PO (09:55)
[2020-07-14] MEDS: clonazePAM 0.5 MG TABLET PO (09:56)
[2020-07-14] MEDS: hydrALAZINE HCl 50 MG TABLET PO (09:56)
[2020-07-14] MEDS: ARIPiprazole 2 MG TABLET PO (09:57)
[2020-07-14] MEDS: Divalproex Sodium ER 500 MG TAB.ER.24H PO (09:57)
[2020-07-14] MEDS: amLODIPine Besylate 10 MG TABLET PO (09:57)
--- NOTE | 2020-07-14 11:06 | MHC.CM.PN ---
nurse director of health care marketing note electronic medical record reviewed along with case disxcussed with staff nurse and hospitlaist as well as the respiratory thearpist . patient will be discharged home today dischaRGE PLAN [facility]NOS[facility] SIGH/SYMPTMMANAGEMENT AND MEDICATION RECONCILATION AND RESPIRATORY THEARPIST TO ARRnge for home oxygen to be set up. she will be given a o2 tportable tank for trasnport home patient to call pcp for for post hospitalization follow up transportation family medicare imm updated all paperwork completed confirmed [employer] insurance with [employer]a in financia npolicy number [id number] effective date of coverage o21
[2020-07-14 11:53] VITALS: PULSE 86; O2SAT 91
[2020-07-14 12:00] VITALS: BP 161/88; PULSE 87; RESP 18; TEMP 36.3; O2SAT 93
--- NOTE | 2020-07-14 12:35 | P.F2F_ITS ---
Service Date Service Date: 07/14/20 Encounter Date of encounter: 07/14/20 Reasons for Services Overseeing Care: Cassandra Oconnor Homebound: Leaving the home is medically contraindicated at this time without the asist of a device and/or another person due th the listed conditions above and below. Homebound supporting statement: homebound due to shortness of breath with minimal effort due to copd and lung cancer and therefore needs the assistance of another person Certification: Based on the above findings, I certify that this patient is confined to the home and needs intermittent senior living care, physical therapy and/or speech therapy, or continues to need occupational therapy. The patient is under my care, and I have initiated the establishment of the plan of care. The patient will be followed by a physician who will periodically review the plan of care.
--- NOTE | 2020-07-14 12:37 | P.PNPL_ITS ---
Subjective Subjective Date of Service: 07/14/20 Interval history: The patient was seen and examined. Overall she is feeling better today. It is reassuring that her MRI of the brain did not demonstrate any metastatic disease. The patient does need to have a outpatient PET scan however to address the extent of the malignancy. The patient does have chronic hypercarbic respiratory failure due to her COPD. Will arrange with local [employer] company to start noninvasive ventilator. The patient can be discharged home we will be able to follow up with this as an outpatient. In the meantime she needs to continue using oxygen supplementation specially with activity. Objective Data Labs CBC & Chem 7: 07/07/20 05:48 07/07/20 05:48 Microbiology Microbiology Results: Microbiology 07/03/20 15:20 Blood - Venous Blood Culture - Final No growth after 5 days. 07/03/20 15:07 Blood - Venous Blood Culture - Final No growth after 5 days. Review of Systems Review of Systems Yes all other systems are reviewed and are negative Constitutional: Denies fever(s) Cardiovascular: Denies chest pain and Reports dyspnea Respiratory: Reports cough and Reports dyspnea Gastrointestinal: Denies abdominal pain Physical Exam Vital Signs: Vital Signs: Last Vital Signs Temp 97.3 F 07/14/20 12:00 Pulse 87 07/14/20 12:00 Resp 18 07/14/20 12:00 BP 161/88 H 07/14/20 12:00 Pulse Ox 93 07/14/20 12:00 Body Mass Index 36.8 Const: General: alert HENMT: General nose exam: Abnormal external nose present and Nasal discharge present Neck: Neck: Yes normal visual inspection, Yes full ROM and Yes no lymphadenopathy Chest: Chest palpation & inspection: normal inspection of the chest Resp: Auscultation: diminished lung sounds Cardio: Rate: regular rate Rhythm: regular rhythm Heart sounds: S1 normal heart sound present and S2 normal heart sound present GI: Palpation (GI): Soft to palpation and nontender Auscultation: normal bowel sounds Assessment and Plan Assessment and plan (1) Lung cancer: Status: Acute (2) COPD (chronic obstructive pulmonary disease): Status: Acute (3) Acute and chronic respiratory failure: Status: Acute Assessment and Plan: Nasal cannula O2 to maintain a pulse ox above 88% Needs to be set up with a noninvasive ventilator at nighttime for her chronic hypercarbic respiratory failure due to her COPD. A patient PET scan to address the a new diagnosis of cancer. Follow up with Pulmonary as an outpatient a couple weeks Time Spent With Patient Time: Total time spent is greater than 50% in coordination of care (as documented) at patient's floor/unit and/or counseling patient: Time with patient: 15 - 24 minutes
== END 2020-07-14 14:10 | disposition home health service (06) | DRG 180 ==
LOC: HO.ED 17:08 → HO.EDOVER 21:18 → HO.S3 07-04 11:22
PROVIDERS: Family Medicine; Hospitalist; Internal Medicine; Physician Assistant Medical; Radiology Diagnostic Radiology; Admitting Provider Internal Medicine; Emergency Provider Emergency Medicine; PCP Internal Medicine; Visit Provider Internal Medicine
PROC: 0BBJ3ZX Excision of Left Lower Lung Lobe, Percutaneous Approach, Diagnostic (ICD-10-PCS; principal; 2020-07-07 12:30)
DX: C78.02 Secondary malignant neoplasm of left lung (principal); J96.22 Acute and chronic respiratory failure with hypercapnia; J96.21 Acute and chronic respiratory failure with hypoxia; J18.9 Pneumonia, unspecified organism; J44.1 Chronic obstructive pulmonary disease with (acute) exacerbation; E66.2 Morbid (severe) obesity with alveolar hypoventilation; J44.0 Chronic obstructive pulmonary disease with (acute) lower respiratory infection; G25.81 Restless legs syndrome; E78.5 Hyperlipidemia, unspecified; I10 Essential (primary) hypertension; G89.29 Other chronic pain; Z86.16 Personal history of COVID-19; Z68.36 Body mass index [BMI] 36.0-36.9, adult; F41.9 Anxiety disorder, unspecified; Z88.0 Allergy status to penicillin; Z87.891 Personal history of nicotine dependence; Z20.822 Contact with and (suspected) exposure to COVID-19; Z79.82 Long term (current) use of aspirin; Z79.891 Long term (current) use of opiate analgesic; Z79.899 Other long term (current) drug therapy
CPT/HCPCS: 32408; 36415; 36600; 70553; 71045; 71250; 80048; 80076; 80164; 81210; 81235; 82803; 83605; 83735; 83880; 84145; 84484; 85025; 85610; 85730; 86140; 87040; 87635; 88271; 88274; 88305; 88333; 88341; 88342; 88360; 88377; 93005; 94640; 94660; 96365; 96375; 99152; 99153; 99285; A9585; J0696; J1940; J1956; J2060; J2405; J2920; J2930

== ENCOUNTER 2020-07-17 15:45 | Emergency (ER) | payer MEDICAID, SELFPAY ==
--- NOTE | ~2020-07-17 | XR_ITS ---
EXAMINATION: PORTABLE CHEST 1 VIEW CLINICAL INFORMATION: CP . COMPARISON: 07/12/2020. TECHNIQUE: Portable frontal view of the chest was obtained. FINDINGS: Lungs are well expanded with chronic appearing reticular markings again seen bilaterally there is improved retrocardiac airspace disease in the prior study with better visualization of the left hemidiaphragm although likely tiny layering left effusion remains. No pneumothorax or overt edema. Cardiac silhouette is prominent but unchanged. Degenerative changes in the shoulders and spine. XR/XR chest 1V IMPRESSION: There is improved aeration in the retrocardiac left lower lobe. The recently biopsied lesion in this region was better delineated on the prior CT scan although is more subtly seen today.
--- NOTE | ~2020-07-17 | CT_ITS ---
EXAMINATION: CT ANGIOGRAM OF THE CHEST WITH AND WITHOUT CONTRAST (CT PULMONARY ANGIOGRAM FOR PE) CLINICAL INFORMATION: Reason for Exam History of cancer, recent hospitalization, elevated D-dimer COMPARISON: CT chest 07/03/2020 TECHNIQUE: Prior to contrast administration, noncontrast localization images were obtained. Subsequently, multidetector volumetric imaging was performed from the thoracic inlet to below the diaphragms following the administration of 70 mL Omnipaque 350 intravenous contrast. No contrast reaction reported Sagittal, coronal, and MIP oblique sagittal reformatted images were obtained on the CT workstation, uploaded to PACS, and reviewed. This CT examination was performed using dose optimization techniques as appropriate, variously including the following: *Automated exposure control *Adjustment of mA and/or kV according to patient size (this includes techniques or standardized protocols for targeted exams where dose is matched to indication/reason for exam; i.e. extremities or head) *Use of iterative reconstruction technique Total exam dose-length product 337 mGy-cm FINDINGS: QUALITY OF STUDY/CONTRAST BOLUS: Suboptimal. PULMONARY ARTERIES: No large central or segmental pulmonary emboli. Examination of smaller vessels on this study is suboptimal secondary to technique and bolus. THORACIC AORTA: No aneurysm or dissection. Calcific atherosclerotic changes present at the origin of the innominate as well as the left subclavian and stenoses cannot be excluded. LUNG: Again seen is a lobular 2.7 cm mass in the left lower lobe that was biopsied on 07/07/2020 and demonstrated poorly differentiated carcinoma. PLEURA: Small left effusion is seen with associated left lower lobe atelectasis MEDIASTINUM: There is mild cardiomegaly. No pericardial effusion. No hilar or mediastinal lymphadenopathy. Coronary artery calcifications are seen. No evidence of septal bowing or right heart strain. CHEST WALL/AXILLA: No axillary or internal mammary lymphadenopathy. OSSEOUS STRUCTURES: No acute or suspicious osseous abnormality. UPPER ABDOMEN: Status post cholecystectomy No reflux of contrast into the hepatic veins to suggest elevated right heart pressures. CT/CT angio chest PE protocol IMPRESSION: 1. Limited exam but no large central or large segmental pulmonary emboli are seen. 2. Left lower lobe carcinoma VTE: Negative, but limited
[2020-07-17 15:51] VITALS: BP 102/58; PULSE 86; RESP 24; TEMP 37.4; O2SAT 96; BMI 30.9
--- NOTE | 2020-07-17 16:28 | PC.NURSE ---
ekg done at 1626
--- NOTE | 2020-07-17 17:09 | ECG_ITS ---
Test Reason : CP Blood Pressure : / mmHG Vent. Rate : 080 BPM Atrial Rate : 080 BPM P-R Int : 144 ms QRS Dur : 092 ms QT Int : 374 ms P-R-T Axes : 047 034 030 degrees QTc Int : 431 ms Normal sinus rhythm Cannot rule out Anterior infarct (cited on or before 03-JUL-2020) Abnormal ECG When compared with ECG of 03-JUL-2020 15:14, No significant change was found Referred By: Billie Campos Electronically Signed By:TRELL HERNANDEZ MD
--- NOTE | 2020-07-17 17:10 | ED.CHESTPAIN ---
HPI - Chest Pain General Chief Complaint: Chest Pain Stated Complaint: chest pain Time Seen by Provider: 07/17/20 17:08 Source: patient Mode of arrival: ambulatory Limitations: no limitations History of Present Illness HPI narrative: This is a 55-year-old female recently hospitalized at [facility] for acute on chronic respiratory failure due to chronic COPD and heavy smoker history, patient also was diagnosed with left lower lobe poorly differentiated adenocarcinoma, patient was discharged with using supplemental oxygen 2 L via nasal cannula 26/12, patient returned today for left-sided chest pain described it as moderate chest pain has been constant for the past 2 days, pain is involving the whole entire chest with no radiation to the shoulder or the neck, pain is worsening by deep breath and coughing, nothing relieves the pain, patient did not have this pain before. Patient had a recent treatment for pneumonia with ceftriaxone and doxycycline. Patient use oxycodone at home for chronic pain. Related Data Home Medications Medication Instructions Recorded Confirmed amitriptyline 25 mg PO BEDTIME 04/21/20 07/03/20 amlodipine 10 mg PO DAILY 04/21/20 07/03/20 aspirin 81 mg PO DAILY 04/21/20 07/03/20 divalproex 500 mg PO DAILY 04/21/20 07/03/20 duloxetine 60 mg PO BEDTIME 04/21/20 07/03/20 omeprazole 20 mg PO BID@0630,1630 04/21/20 07/03/20 Breo Ellipta 1 inh INHALATION DAILY 05/26/20 07/03/20 Incruse Ellipta 1 inh INHALATION DAILY 05/26/20 07/03/20 aripiprazole 2 mg PO DAILY 05/26/20 07/03/20 clonazepam 0.5 mg PO BID 05/26/20 07/03/20 divalproex 1,000 mg PO BEDTIME 05/26/20 07/03/20 hydralazine 50 mg PO TID 05/26/20 07/03/20 metoprolol succinate 50 mg PO DAILY 05/26/20 07/03/20 oxycodone-acetaminophen 1 tab PO 5XD PRN 05/26/20 07/03/20 atorvastatin 20 mg PO BEDTIME 07/03/20 07/03/20 Previous Rx's Medication Instructions Recorded albuterol sulfate 2 puff INHALATION Q4-6H PRN #8.5 g 04/30/20 Allergies Allergy/AdvReac Type Severity Reaction Status Date / Time Penicillins Allergy Mild RASH Verified 06/23/20 14:36 venlafaxine [From Effexor] Allergy Mild RASH Verified 06/23/20 14:36 cyclobenzaprine Allergy Unknown UNKNOWN Verified 06/23/20 14:36 [Cyclobenzaprine] fentanyl [FENTANYL] Allergy Unknown HALLUCINATI Verified 06/23/20 14:36 ONS topiramate [From Topamax] Allergy Unknown UNKNOWN Verified 06/23/20 14:36 Review of Systems Review of Systems: All other systems are reviewed and are negative Constitutional: Reports as per HPI and Reports no additional constitutional complaints Eyes: Reports as per HPI and Reports no additional eye complaints Reports system reviewed and no additional complaints, except as documented Cardiovascular: Reports as per HPI and Reports no additional cardiovascular complaints Respiratory: Reports as per HPI and Reports no additional respiratory complaints Gastrointestinal: Reports as per HPI and Reports no additional gastrointestinal complaints Genitourinary: Reports no additional female genitourinary complaints Musculoskeletal: Reports no additional musculoskeletal complaints Skin/Breast: Reports system reviewed and no additional complaints, except as docu Psychiatric: Reports no additional psychiatric complaints Endocrine: Reports no additional endocrine complaints Hematologic/Lymphatic: Reports no additional hematologic/lymphatic complaints Allergic/Immunologic: Reports no additional allergic/immunologic complaints Reports system reviewed and no additional complaints, except as documented and Reports Abnormal speech present [facility] Past Medical History Medical History Acute and chronic respiratory failure Acute on chronic diastolic CHF (congestive heart failure) Back pain with history of spinal surgery Bipolar 1 disorder Bipolar disorder CAD (coronary artery disease) Chronic back pain COPD (chronic obstructive pulmonary disease) COPD (chronic obstructive pulmonary disease) Depression Fibromyalgia High cholesterol HTN (hypertension) Hypoventilation associated with obesity Lung cancer Obesity Obesity hypoventilation syndrome PTSD (post-traumatic stress disorder) Renal failure Respiratory failure with hypoxia and hypercapnia Restless legs syndrome (RLS) Rotator cuff strain Sleep disorder Smoker Surgical History H/O: hysterectomy Social History Social History Household Members: Spouse Housing: Apartment Alcohol intake: unknown Smoking Status: Former smoker Tobacco Type: Cigarette Second Hand Smoke Exposure: Yes Use of substances other than those prescribed or required for medical reasons: No Advance Directives: No Advance Directives Information Provided: Yes service: No Current occupational status: disabled Physical Exam Vital Signs: Vital Signs: Last Vital Signs Temp 98.6 F 07/17/20 22:41 Pulse 83 07/17/20 22:41 Resp 16 07/17/20 22:41 BP 152/70 H 07/17/20 22:41 Pulse Ox 95 07/17/20 22:41 Body Mass Index 30.9 Vital signs have been reviewed as normal and appeared to be correct. Blood pressure normal. Heart rate normal. Respiration rate fast. Temperature normal. Oxygen saturation normal. Appearance: Alert. Oriented X3. No acute distress. Head: Normal external exam. Normocephalic. Atraumatic. No Stanley signs noted. No raccoon eyes noted Eyes: PERRLA. EOMI. Conjunctiva and sclera normal. Eyelids normal. ENT: TM's Normal. Pharynx normal. Uvula midline. Moist mucous membranes. No trismus noted. No drooling noted. No muffled voice noted. Neck: Normal inspection. Neck supple. FROM. No adenopathy. Thyroid Normal. No meningeal signs. No neck mass noted. CVS: Normal heart rate and rhythm. Heart sound normal. No murmurs noted. Pulses normal throughout. Respiratory: No respiratory distress. Painless inspiration. Breath sounds normal. No wheezes/rales/rhonchi noted. Chest nontender. No accessory muscle usage noted or decreased air movement noted. Abdomen: Soft and nontender. Bowel sounds normal in all 4 quadrants. No distention noted. No organomegaly noted. No visible injury noted. Back: No CVA tenderness. Full range of motion noted. Skin: Skin warm and dry. Normal skin color. Normal skin turgor. No rashes/lesions/lacerations noted. Extremities: No lower extremity edema. Extremities exhibit normal range of motion. Extremities nontender. Neuro: Oriented X 3. No motor deficit. No sensory deficit. Reflexes normal. Course Course Course Narrative: Assessment and plan. 55-year-old female was COPD and chronic respiratory failure, recently diagnosed with left lower lobe lung carcinoma scheduled to see the oncologist in 3 days, patient presented with 2 days of left-sided chest pain that appears to be constant did not seem to be cardiac in origin, negative troponin, because elevated D-dimer CT was considered showed no PE. Labs at patient's baseline. Patient just had recent left lung biopsy left lung mass that might contribute to the patient's chest pain. Will discharge the patient home instructed to use oxygen 4 L at home at all times, use pain medication, keep her appointment with oncologist in 2 days. MDM - Chest Pain Lab Data Attestation: I reviewed the patient's lab results. Result diagrams: 07/17/20 17:31 07/17/20 17:31 Labs: Lab Results 07/17/20 07/17/20 07/17/20 Range/Units 17:30 17:31 17:31 WBC 12.4 H (4.8-10.8) X10*3/uL RBC 3.43 L (4.20-5.50) X10*6/uL Hgb 9.6 L (12.0-16.0) g/dl Hct 31.2 L (37-47) % MCV 91.0 (80-98) fL MCH 28.0 (27.0-33.0) pg MCHC 30.8 L (31.0-35.0) g/dl RDW 17.0 H (11.0-16.0) % Plt Count 325 (160-400) X10*3/uL MPV 9.5 (9.4-12.3) fL Immature Gran % (Auto) 1.1 H (0.0-0.4) % Neut % (Auto) 63.5 (45-73) % Lymph % (Auto) 24.7 (20-40) % Atlantic % (Auto) 9.3 (2-11) % Eos % (Auto) 1.1 (0-4) % Baso % (Auto) 0.3 (0-2) % Lymph # (Auto) 3.1 (1.2-4.9) X10*3/uL Atlantic # (Auto) 1.2 (0.1-1.2) X10*3/uL Eos # (Auto) 0.1 (0.0-0.4) X10*3/uL Baso # (Auto) 0.0 (0.0-0.2) X10*3/uL Abs Immat Gran (auto) 0.14 H (0.00-0.03) X10*3/uL Absolute Neuts (auto) 7.8 (2.0-8.3) X10*3/uL Absolute Nucleated RBC 0.000 (0.0-0.012) X10*3/uL Nucleated RBC % (auto) 0.0 (0.0-0.2) /100WBC D-Dimer 370 NG/ML ABG pH (7.35-7.45) ABG pCO2 (32-45) mmHg ABG pO2 (83-108) mmHg ABG HCO3 (22-26) mmol/L ABG O2 Saturation % ABG Base Excess Oxygen Given Sodium (135-145) mmol/L Potassium (3.3-5.1) mmol/L Chloride (96-108) mmol/L Carbon Dioxide (22-29) mmol/L Anion Gap (12-20) BUN (9-16) mg/dL Creatinine (0.5-1.4) mg/dL Estim Creat Clear Calc Estimated GFR Random Glucose (60-115) mg/dL Calcium (8.4-10.2) mg/dL Total Bilirubin (0.0-1.0) mg/dL Direct Bilirubin (0.0-0.5) mg/dL AST (5-31) U/L ALT (0-31) U/L Alkaline Phosphatase (39-117) U/L Troponin I High Sens 6.5 (<3.5-17.0) ng/L B-Natriuretic Peptide 81 (<100) pg/mL Total Protein (6.5-8.0) g/dL Albumin (3.5-5.0) g/dL Lipase (8-78) U/L 07/17/20 07/17/20 Range/Units 17:31 17:55 WBC (4.8-10.8) X10*3/uL RBC (4.20-5.50) X10*6/uL Hgb (12.0-16.0) g/dl Hct (37-47) % MCV (80-98) fL MCH (27.0-33.0) pg MCHC (31.0-35.0) g/dl RDW (11.0-16.0) % Plt Count (160-400) X10*3/uL MPV (9.4-12.3) fL Immature Gran % (Auto) (0.0-0.4) % Neut % (Auto) (45-73) % Lymph % (Auto) (20-40) % Atlantic % (Auto) (2-11) % Eos % (Auto) (0-4) % Baso % (Auto) (0-2) % Lymph # (Auto) (1.2-4.9) X10*3/uL Atlantic # (Auto) (0.1-1.2) X10*3/uL Eos # (Auto) (0.0-0.4) X10*3/uL Baso # (Auto) (0.0-0.2) X10*3/uL Abs Immat Gran (auto) (0.00-0.03) X10*3/uL Absolute Neuts (auto) (2.0-8.3) X10*3/uL Absolute Nucleated RBC (0.0-0.012) X10*3/uL Nucleated RBC % (auto) (0.0-0.2) /100WBC D-Dimer NG/ML ABG pH 7.44 (7.35-7.45) ABG pCO2 61 H* (32-45) mmHg ABG pO2 94 (83-108) mmHg ABG HCO3 34 H (22-26) mmol/L ABG O2 Saturation 96.0 % ABG Base Excess 7.6 Oxygen Given 2 L Sodium 146 H (135-145) mmol/L Potassium 3.7 (3.3-5.1) mmol/L Chloride 104 (96-108) mmol/L Carbon Dioxide 34 H (22-29) mmol/L Anion Gap 12 (12-20) BUN 11 D (9-16) mg/dL Creatinine 1.02 (0.5-1.4) mg/dL Estim Creat Clear Calc 62.9 Estimated GFR 56 Random Glucose 90 (60-115) mg/dL Calcium 7.4 L D (8.4-10.2) mg/dL Total Bilirubin 0.2 (0.0-1.0) mg/dL Direct Bilirubin < 0.2 (0.0-0.5) mg/dL AST 13 (5-31) U/L ALT < 6 (0-31) U/L Alkaline Phosphatase 69 (39-117) U/L Troponin I High Sens (<3.5-17.0) ng/L B-Natriuretic Peptide (<100) pg/mL Total Protein 5.4 L (6.5-8.0) g/dL Albumin 3.3 L (3.5-5.0) g/dL Lipase 12 (8-78) U/L Imaging Data CTA chest: Radiologist's impression: . Limited exam but no large central or large segmental pulmonary emboli are seen. 2. Left lower lobe carcinoma Chest x-ray: Radiologist's impression: There is improved aeration in the retrocardiac left lower lobe. The recently biopsied lesion in this region was better delineated on the prior CT scan although is more subtly seen today. Discharge Plan Discharge Clinical Impression: COPD (chronic obstructive pulmonary disease), Lung cancer, Acute and chronic respiratory failure Patient Disposition: Home, Self-Care Instructions: Chest Pain (ED) Prescriptions: No Action aspirin 81 mg tablet,delayed release (DR/EC) 81 mg PO DAILY RF: 0 amitriptyline 25 mg tablet 25 mg PO BEDTIME RF: 0 amlodipine 10 mg tablet 10 mg PO DAILY RF: 0 divalproex 500 mg tablet extended release 24 hr 500 mg PO DAILY RF: 0 omeprazole 20 mg capsule,delayed release(DR/EC) 20 mg PO BID@0630,1630 RF: 0 duloxetine 60 mg capsule,delayed release(DR/EC) 60 mg PO BEDTIME RF: 0 albuterol sulfate 90 mcg/actuation HFA aerosol inhaler 2 puff inhalation Q4-6H PRN (Reason: shortness of breath or wheezing) Qty: 8.5 RF: 0 metoprolol succinate 50 mg Tablet Extended Release 24 Hr 50 mg PO DAILY RF: 0 divalproex 500 mg Tablet Extended Release 24 Hr 1,000 mg PO BEDTIME RF: 0 Breo Ellipta 100-25 mcg/dose Blister With Device 1 inh INHALATION DAILY RF: 0 clonazepam 0.5 mg tablet 0.5 mg PO BID RF: 0 oxycodone-acetaminophen 10-325 mg tablet 1 tab PO 5XD PRN (Reason: Pain (Scale Score 4-6)) RF: 0 Incruse Ellipta 62.5 mcg/actuation Blister With Device 1 inh INHALATION DAILY RF: 0 hydralazine 50 mg Tablet 50 mg PO TID RF: 0 aripiprazole 2 mg Tablet 2 mg PO DAILY RF: 0 atorvastatin 20 mg Tablet 20 mg PO BEDTIME RF: 0 Referrals: Aliza Ahumada MD [Physician] - 3 days
[2020-07-17 17:39] VITALS: BP 85/53; RESP 18; TEMP 37.1; O2SAT 96
[2020-07-17 17:44] VITALS: O2SAT 96
[2020-07-17 17:49] LABS: D Dimer 370 NG/ML
[2020-07-17 17:50] LABS: Basophils Percent Auto 0.3 % (0-2); Eosinophils Absolute Auto 0.1 X10*3/uL (0.0-0.4); Eosinophils Percent Auto 1.1 % (0-4); Hematocrit 31.2 % (37-47); Hemoglobin 9.6 g/dl (12.0-16.0); Imm Gran Abs Auto 0.14 X10*3/uL (0.00-0.03); Imm Gran Pct Auto 1.1 % (0.0-0.4); Lymphocytes Absolute Auto 3.1 X10*3/uL (1.2-4.9); Lymphocytes Percent Auto 24.7 % (20-40); MANUAL DIFF FLAG NO; Mean Corpuscular HGB Conc 30.8 g/dl (31.0-35.0); Mean Platelet Volume 9.5 fL (9.4-12.3); Monocytes Absolute Auto 1.2 X10*3/uL (0.1-1.2); Monocytes Percent Auto 9.3 % (2-11); Neutrophils Absolute Auto 7.8 X10*3/uL (2.0-8.3); Neutrophils Percent Auto 63.5 % (45-73); Platelet Count 325 X10*3/uL (160-400); Red Blood Count 3.43 X10*6/uL (4.20-5.50); White Blood Count 12.4 X10*3/uL (4.8-10.8)
[2020-07-17 18:12] LABS: Pt Ventilation O2% 2 L
[2020-07-17 18:22] LABS: Base Excess ABG 7.6; HCO3 ABG 34 mmol/L (22-26); PO2 ABG 94 mmHg (83-108); pH ABG 7.44 (7.35-7.45)
[2020-07-17 18:24] LABS: ABG PCO2 61 mmHg (32-45)
[2020-07-17 19:10] LABS: B Type Natriuretic Peptide 81 pg/mL (<100); Troponin-I High Sensitivity 6.5 ng/L (<3.5-17.0)
[2020-07-17 20:00] VITALS: BP 134/78; PULSE 74; RESP 18; TEMP 37; O2SAT 98
[2020-07-17] MEDS: oxyCODONE HCl Immed Release 5 MG TABLET 10 MG PO (21:07)
[2020-07-17 22:27] LABS: Alanine Aminotransferase < 6 U/L (0-31); Albumin Level 3.3 g/dL (3.5-5.0); Alkaline Phosphatase 69 U/L (39-117); Anion Gap 12 (12-20); Aspartate Amino Transferase 13 U/L (5-31); Bilirubin Direct < 0.2 mg/dL (0.0-0.5); Bilirubin Total 0.2 mg/dL (0.0-1.0); Blood Urea Nitrogen 11 mg/dL (9-16); Calcium 7.4 mg/dL (8.4-10.2); Carbon Dioxide 34 mmol/L (22-29); Chloride 104 mmol/L (96-108); Creatinine Clr Calc Pharmacy 62.9; Estimated Glomerular Filt Rate 56; Glucose Random 90 mg/dL (60-115); Lipase 12 U/L (8-78); Potassium 3.7 mmol/L (3.3-5.1); Sodium 146 mmol/L (135-145); Total Protein 5.4 g/dL (6.5-8.0)
[2020-07-17 22:41] VITALS: BP 152/70; PULSE 83; RESP 16; TEMP 37; O2SAT 95
[2020-07-17] MEDS: iohexoL 350 MG/ML 100 ML INFUS..BTL 70 ML IV (23:11)
== END 2020-07-18 00:17 | disposition home or self-care (01) ==
PROVIDERS: Emergency Provider Emergency Medicine; PCP Internal Medicine
DX: J44.9 Chronic obstructive pulmonary disease, unspecified (principal); R07.9 Chest pain, unspecified; C34.32 Malignant neoplasm of lower lobe, left bronchus or lung; J96.20 Acute and chronic respiratory failure, unspecified whether with hypoxia or hypercapnia; F17.210 Nicotine dependence, cigarettes, uncomplicated; I10 Essential (primary) hypertension; Z79.891 Long term (current) use of opiate analgesic; Z99.81 Dependence on supplemental oxygen
CPT/HCPCS: 36415; 71045; 71275; 80048; 80076; 82803; 83690; 83880; 84484; 85025; 85379; 93005; 99284; 99285; Q9967

== ENCOUNTER → 2020-07-21 09:46 | Outpatient (BNV) | payer MEDICAID, MEDICARE, SELFPAY | PROVIDERS: PCP Internal Medicine; Visit Provider Internal Medicine | DX: C18.9 Malignant neoplasm of colon, unspecified (principal) | CPT/HCPCS: 99213; 99214; 99215; 99441; G2211 ==

== ENCOUNTER → 2020-07-30 13:13 | Outpatient (BNVA) | payer MEDICARE, MEDICAID, SELFPAY | PROVIDERS: PCP Internal Medicine; Visit Provider Internal Medicine Gastroenterology | DX: Z13.89 Encounter for screening for other disorder (principal) | CPT/HCPCS: Q3014 ==

== ENCOUNTER → 2020-07-31 10:04 | Outpatient (BNVA) | payer MEDICAID, SELFPAY | PROVIDERS: PCP Internal Medicine; Visit Provider Surgery | DX: C34.32 Malignant neoplasm of lower lobe, left bronchus or lung (principal); Z79.899 Other long term (current) drug therapy; Z87.891 Personal history of nicotine dependence; Z86.16 Personal history of COVID-19 | CPT/HCPCS: 99212 ==

== ENCOUNTER 2020-08-03 12:41 | Outpatient (REF) | payer MEDICAID, SELFPAY ==
--- NOTE | 2020-08-03 17:04 | PFT_ITS ---
INDICATION: Lung cancer. SPIROMETRY: The FEV1 to FVC 69% with an FEV1 of 1.48 L, which is 56% predicted and an FVC of 2.13 L, which is 62% predicted. Post bronchodilator shows significant improvement of the FVC by 12%. The maximum voluntary ventilation 60% predicted. LUNG VOLUMES: Total lung capacity 87% predicted. DIFFUSION CAPACITY: DLCO of 50% predicted. COMPARISONS: None. INTERPRETATION: There is an obstructive ventilatory defect consistent with moderate to severe COPD. There was a significant response to bronchodilators noted. The patient does have a moderate decrease in maximum voluntary ventilation secondary to likely deconditioning. Lung volumes are within normal limits except for significant air trapping due to the COPD. There is [id number] diffusion impairment secondary to likely emphysema and/or the parenchymal lung conditions should be considered as well. Clinical correlation warranted. MD MUSTAPHA Ocampo/EDVIN / [phone]
== END 2020-08-03 12:42 | disposition home or self-care (01) ==
LOC: HO.RESP 12:41
PROVIDERS: PCP Internal Medicine; Visit Provider Surgery
DX: C34.32 Malignant neoplasm of lower lobe, left bronchus or lung (principal)
CPT/HCPCS: 94060; 94727; 94729

== ENCOUNTER 2020-08-06 11:41 | Day surgery (SDC) | payer MEDICAID, SELFPAY ==
[2020-08-05 12:40] VITALS: BMI 36.9
[2020-08-06 12:17] VITALS: BP 119/67; PULSE 79; RESP 18; TEMP 36.6; O2SAT 96
[2020-08-06] MEDS: Lactated Ringers 1,000 ML 100 ML IVCONT (12:26)
--- NOTE | 2020-08-06 12:43 | HO.ANESPROP2 ---
HPI - Anesthesia Eval Consult details Narrative: 55 year old female patient here for colonoscopy PMF Active Problems Active Problems: All Active Problems (Updated 08/05/20 @ 12:19 by Aliza Ahumada MD) Cancer of lower lobe of left lung (Acute) GERD (gastroesophageal reflux disease) (Acute) Abnormal PET scan of colon (Acute) Pneumonia (Acute) Hypoxia (Acute) Lung mass (Acute) Opacity of lung on imaging study (Acute) Acute and chronic respiratory failure (Acute) Lung cancer (Acute) COPD (chronic obstructive pulmonary disease) (Acute) Obesity (Acute) Hypoventilation associated with obesity (Acute) Respiratory failure with hypoxia and hypercapnia (Acute) Past Medical History Medical History Acute and chronic respiratory failure Acute on chronic diastolic CHF (congestive heart failure) Back pain with history of spinal surgery Bipolar 1 disorder Bipolar disorder CAD (coronary artery disease) Chronic back pain COPD (chronic obstructive pulmonary disease) COPD (chronic obstructive pulmonary disease) Depression Fibromyalgia GERD (gastroesophageal reflux disease) High cholesterol HTN (hypertension) Hypoventilation associated with obesity Lung cancer Obesity Obesity hypoventilation syndrome IVY (obstructive sleep apnea) PTSD (post-traumatic stress disorder) Renal failure Respiratory failure with hypoxia and hypercapnia Restless legs syndrome (RLS) Rotator cuff strain Sleep disorder Smoker Family History Family History Maternal Aunt Breast cancer Stroke COPD (chronic obstructive pulmonary disease) Maternal Aunt Breast cancer COPD (chronic obstructive pulmonary disease) Mother Uterine cancer COPD (chronic obstructive pulmonary disease) HTN (hypertension) Maternal Uncle Stroke Paternal Grandmother Heart attack Sister Diabetes IBS (irritable bowel syndrome) Son HTN (hypertension) Daughter HTN (hypertension) Father HTN (hypertension) Brother Heart disease Family history of problems with anesthesia: No Surgical History Surgical History H/O colonoscopy H/O: hysterectomy History of back surgery History of bunionectomy History of esophagogastroduodenoscopy (EGD) Hx of appendectomy Hx of cholecystectomy Hx of exploratory laparotomy History of Problems with Anesthesia: No Social History Social History Household Members: Spouse Housing: Apartment Alcohol intake: current Alcohol intake frequency: does not drink Smoking Status: Former smoker Years Smoked: 40 Second Hand Smoke Exposure: Yes Use of substances other than those prescribed or required for medical reasons: No Advance Directives: No Advance Directives Information Provided: Yes Advance Directives on File: No service: No Current occupational status: disabled Meds Allergies Allergy/AdvReac Type Severity Reaction Status Date / Time Penicillins Allergy Mild RASH Verified 07/31/20 10:17 venlafaxine [From Effexor] Allergy Mild RASH Verified 07/31/20 10:17 cyclobenzaprine Allergy Unknown UNKNOWN Verified 07/31/20 10:17 [Cyclobenzaprine] fentanyl [FENTANYL] Allergy Unknown HALLUCINATI Verified 07/31/20 10:17 ONS topiramate [From Topamax] Allergy Unknown UNKNOWN Verified 07/31/20 10:17 Active Medications: Current Medications Generic Name Dose Route Start Last Admin Trade Name Freq PRN Reason Stop Dose Admin Lactated Ringer's 1,000 mls @ 100 mls/hr 08/06/20 12:45 Lr IVCONT .Q10H LONG Home Medications Medication Instructions Recorded Confirmed Last Taken Type amitriptyline 25 mg PO BEDTIME 04/21/20 07/31/20 07/02/20 History amlodipine 10 mg PO DAILY 04/21/20 07/31/20 08/06/20 History aspirin 81 mg PO DAILY 04/21/20 07/31/20 08/06/20 History divalproex 500 mg PO DAILY 04/21/20 07/31/20 08/06/20 History duloxetine 60 mg PO BEDTIME 04/21/20 07/31/20 07/02/20 History omeprazole 20 mg PO BID@0630,1630 04/21/20 07/31/20 08/06/20 History Breo Ellipta 1 inh INHALATION DAILY 05/26/20 07/31/20 08/06/20 History Incruse Ellipta 1 inh INHALATION DAILY 05/26/20 07/31/20 08/06/20 History aripiprazole 2 mg PO DAILY 05/26/20 07/31/20 08/06/20 History clonazepam 0.5 mg PO BID 05/26/20 07/31/20 08/06/20 History hydralazine 50 mg PO TID 05/26/20 07/31/20 08/06/20 History metoprolol succinate 50 mg PO DAILY 05/26/20 07/31/20 07/03/20 History oxycodone-acetaminophen 1 tab PO 5XD PRN 05/26/20 07/31/20 08/06/20 History atorvastatin 20 mg PO BEDTIME 07/03/20 07/31/20 08/06/20 History Exam Exam Date and Time: August 06, 2020 1243 Height,Weight and Vital Signs: Height 5 ft 4 in Weight 97.6 kg Last Vital Signs Temp 97.8 F 08/06/20 12:17 Pulse 79 08/06/20 12:17 Resp 18 08/06/20 12:17 BP 119/67 08/06/20 12:17 Pulse Ox 96 08/06/20 12:17 Pertinent Lab Results Pertinent Lab Results: Vital Signs Temp Pulse Resp BP Pulse Ox 08/06/20 12:17 97.8 F 79 18 119/67 96 Airway Mallampati Class: IV (Very limited mouth opening) TM Dist: >3cm Neck ROM: Full Loose/Missing/Broken Teeth: Yes (Edentulous) Heart: RRR Lungs: CTAB. Diminished breath sounds Assessment and Plan Assessment Anesthesia Assessment: Anesthesia Plan Discussed and Chart Reviewed Final Anesthetic Review NPO: Yes ASA Class: III Final Preanesthetic Review: No Changes in Pt Med Stat, Meds/Allgs Chart Reviewed, Consent Obtained/Reviewed and Anes Risks/Benef Reviewed Patient Risk: High Procedure Risk: Low Assessment/Block/Sedation in SS: Assess/Block/Sedation-SS Anesthetic Plan Anesthetic Plan: MAC: Disposition: Standard PACU
--- NOTE | 2020-08-06 13:17 | MHC.SHP ---
Pre-Procedural Eval Section B Chief Complaint: Abnormal Results Details of Present Illness: lung mass, abn PET scan with uptake in colon Relevant Social History: None Present Medications: see Short Stay Collaborative assessment Medical History: Significant History (Acute and chronic respiratory failure Acute on chronic diastolic CHF (congestive heart failure) Back pain with history of spinal surgery Bipolar 1 disorder Bipolar disorder CAD (coronary artery disease) Chronic back pain COPD (chronic obstructive pulmonary disease) COPD (chronic obstructive pulmonar) History of Previous Operations: Relevant previous surgery/procedure and date(s) (H/O colonoscopy H/O: hysterectomy History of back surgery History of bunionectomy History of esophagogastroduodenoscopy (EGD) Hx of appendectomy Hx of cholecystectomy Hx of exploratory laparotomy) Allergies: Allergies Allergy/AdvReac Type Severity Reaction Status Date / Time Penicillins Allergy Mild RASH Verified 07/31/20 10:17 venlafaxine [From Effexor] Allergy Mild RASH Verified 07/31/20 10:17 cyclobenzaprine Allergy Unknown UNKNOWN Verified 07/31/20 10:17 [Cyclobenzaprine] fentanyl [FENTANYL] Allergy Unknown HALLUCINATI Verified 07/31/20 10:17 ONS topiramate [From Topamax] Allergy Unknown UNKNOWN Verified 07/31/20 10:17 Review of Systems Sugical H&P ROS: Negative: Constitution, Cardiovascular, Respiratory, Neurological, Psychiatric, Hem-Onc, Allergic/Immunologic, Gastrointestinal, Genitourinary, Musculoskeletal, Integumentary, Endocrine and Eyes/Ears/Nose/Throat Exam Surgical H&P Exam: Normal: HEENT, Normal: Heart, Normal: Lungs, Normal: Extremities, Normal: Abdomen, Normal: Skin and Normal: Neurological Plan Diagnosis/Plan: Unchanged I have reviewed the history and physical and performed a pertinent physical examination on my patient. No changes have occurred unless specified.
--- NOTE | 2020-08-06 13:34 | P.OP_ITS ---
Operative Note Operative Note Date of Service: 08/06/20 Narrative: Operative Information Procedure Description: Colonoscopy COLONOSCOPY Instrument: Olympus variable stiffness pediatric scope 190L Colonoscopy Monitoring: Vital signs and clinical assessment, continuous EKG monitoring, Pulse oximetry, Carbon Dioxide monitoring and blood pressure monitoring were done throughout the procedure. Procedure: The patient was placed in the left lateral decubitis position and pre-procedure medications were administered. After a digital rectal examination of the ano-rectum, the video colonoscope was inserted into the rectum and advanced through the colon to the ascending colon The colonoscope was slowly withdrawn in a retrograde panoramic fashion and the colon mucosa was carefully examined including a retroflexed view of the rectum. Findings and interventions are described below. Procedure Difficulty:v diffciult due to redundant colon and excessive looping, cecum not reached Findings: Terminal Ileum-not reached Cecum:- not reached Ascending Colon: x 2 sessile polyps measuring 8-10 mm removed with cold snare Transverse Colon - 10 mm sessile polyp removed with cold snare Descending Colon:normal Sigmoid Colon: ulcerated mass covering half the circumference of the colon at around 40 cm from anal verge, bx taken. Ligia ink marked proxiaml and distal to the mass. Adjacent polyp 8-10 mm removed with cold snare. Rectum: Retroflexion not done Anorectum - normal Colon preparation: [place] Bowel Preparation Scale Right colon; 2 Transverse colon: 2 Left colon; 2 (0 = Unprepared colon segment with mucosa not seen due to solid stool that cannot be cleared. 1 = Portion of mucosa of the colon segment seen, but other areas of the colon segment not well seen due to staining, residual stool and/or opaque liquid. 2 = Minor amount of residual staining, small fragments of stool and/or opaque liquid, but mucosa of colon segment seen well. 3 = Entire mucosa of colon segment seen well with no residual staining, small fragments of stool or opaque liquid) Impression and Post Procedure Diagnosis: incomplete colonoscopy due to redundant bowel and looping polyps sigmoid mass Plan: ba enema to eval cecum refer back to oncology for further assessment if colonoscopy needs to be repeated would attempt it prone, or use balloon enteroscopy Above findings were reviewed with the patient and relevant handouts were provided if indicated.
--- NOTE | 2020-08-06 13:34 | PM.OP ---
Brief Operative Note Date of Service: 08/06/20 Pre-op diagnosis: abn PET scan, lung mass Post-op diagnosis: same Procedure: see op note Surgeon: Rubi Sauceda MD Anesthesia: MAC Estimated blood loss (mL): 0 Condition: stable Disposition: PACU
[2020-08-06 15:00] VITALS: BP 145/73; PULSE 80; RESP 20; TEMP 36.6; O2SAT 93
[2020-08-06 15:16] VITALS: BP 121/73; PULSE 92; RESP 20; O2SAT 95
== END 2020-08-06 15:40 | disposition home or self-care (01) ==
PROVIDERS: PCP Family Medicine; Visit Provider Internal Medicine Gastroenterology
PROC: 0DJD8ZZ Inspection of Lower Intestinal Tract, Via Natural or Artificial Opening Endoscopic (ICD-10-PCS; CPT 45378; principal; 2020-08-06 13:50)
DX: R94.8 Abnormal results of function studies of other organs and systems (principal); C18.7 Malignant neoplasm of sigmoid colon; D12.2 Benign neoplasm of ascending colon; D12.3 Benign neoplasm of transverse colon; D12.5 Benign neoplasm of sigmoid colon; K63.89 Other specified diseases of intestine; K59.39 Other megacolon; K21.9 Gastro-esophageal reflux disease without esophagitis; C34.90 Malignant neoplasm of unspecified part of unspecified bronchus or lung; I11.0 Hypertensive heart disease with heart failure; I50.33 Acute on chronic diastolic (congestive) heart failure; I13.0 Hypertensive heart and chronic kidney disease with heart failure and stage 1 through stage 4 chronic kidney disease, or unspecified chronic kidney disease; N18.9 Chronic kidney disease, unspecified; J44.9 Chronic obstructive pulmonary disease, unspecified; G47.33 Obstructive sleep apnea (adult) (pediatric); J96.22 Acute and chronic respiratory failure with hypercapnia; J96.21 Acute and chronic respiratory failure with hypoxia; F17.200 Nicotine dependence, unspecified, uncomplicated; Z79.51 Long term (current) use of inhaled steroids; Z79.82 Long term (current) use of aspirin; Z79.899 Other long term (current) drug therapy; Z88.0 Allergy status to penicillin; Z88.8 Allergy status to other drugs, medicaments and biological substances
CPT/HCPCS: 45385; 45380; 45381; 88305; 88341; 88342

== ENCOUNTER 2020-08-14 09:01 | Outpatient (REF) | payer MEDICAID, SELFPAY ==
--- NOTE | ~2020-08-14 | FL_ITS ---
EXAMINATION: XR BARIUM ENEMA CLINICAL INFORMATION: The examination could not be performed because the patient had significant stool within the colon. Patient indicated that she was unable to have a bowel movement despite taking prep. The patient will be rescheduled
--- NOTE | ~2020-08-14 | XR_ITS ---
EXAMINATION: XR ABDOMEN KUB CLINICAL INDICATION: Preliminary imaging prior to barium enema. COMPARISON: Abdominal ultrasound January 2020. TECHNIQUE: AP view of the abdomen. FINDINGS: There is a moderate amount of stool within the colon. The bowel gas pattern is otherwise normal with no evidence of ileus or obstruction. No unusual soft tissue calcifications are noted. The bones are unremarkable. Orthopedic hardware present in the lower lumbosacral spine related to spine fusion. The bones and joints are otherwise unremarkable. Surgical clips overlie the abdomen. XR/XR abdomen 1V IMPRESSION: Nonobstructive gas pattern. Moderate amount of fecal material throughout the colon. The x-ray technologist indicated the patient reported inability to take the colonic prep prior to barium enema.
== END 2020-08-14 09:02 | disposition home or self-care (01) ==
LOC: HO.XRAY 09:01
PROVIDERS: Visit Provider Internal Medicine Gastroenterology
DX: C34.32 Malignant neoplasm of lower lobe, left bronchus or lung (principal); C18.9 Malignant neoplasm of colon, unspecified; K63.89 Other specified diseases of intestine; Z79.899 Other long term (current) drug therapy; Z87.891 Personal history of nicotine dependence; Z86.16 Personal history of COVID-19; Z99.81 Dependence on supplemental oxygen
CPT/HCPCS: 74018; 74270; 99212

== ENCOUNTER 2020-09-09 20:22 | Inpatient (IN) | payer MEDICARE, MEDICAID, SELFPAY ==
--- NOTE | ~2020-09-09 | CT_ITS ---
EXAMINATION: CT CHEST, ABDOMEN AND PELVIS WITH CONTRAST CLINICAL INFORMATION: Shortness of breath, cough, recent surgery and left lower quadrant pain COMPARISON: CT angiogram chest 07/17/2020 TECHNIQUE: Multidetector volumetric imaging was performed from the thoracic inlet through the pubic symphysis following administration of 85 mL of Omnipaque 350. Sagittal and coronal reformatted images were obtained on the technologist's workstation. This CT examination was performed using dose optimization techniques as appropriate, variously including the following: *Automated exposure control *Adjustment of mA and/or kV according to patient size (this includes techniques or standardized protocols for targeted exams where dose is matched to indication/reason for exam; i.e. extremities or head) *Use of iterative reconstruction technique DLP: 1152 mGy-cm FINDINGS: CHEST: Lungs and Pleura: There is a multiloculated pleural effusion present in the left hemithorax. No air bubbles are seen within these fluid collections Since the prior study, the previously detected left lower lobe mass is no longer seen. Left basilar infiltrates are seen. The right lung is clear with the exception of a tiny 3 mm micronodule in the right upper lobe (7:102). No right-sided pleural effusion is seen Mediastinum: AP window, preaortic, subcarinal and paratracheal lymph nodes are present and appear slightly smaller in appearance when compared to the prior study. The largest measures 1.4 x 1.0 cm in greatest transverse dimension previously measuring 2.0 x 0.8 cm. Subcarinal lymph node had measured 3.9 x 1.3 cm and currently measures 3.3 x 1.3 cm. A right paratracheal node had measured 2.7 x 2.0 cm and currently measures 2.0 x 1.3 cm.. Cardiac enlargement. No pericardial effusion. Chest Wall/Axilla: There are small axillary lymph nodes but no adenopathy. ABDOMEN/PELVIS: Peritoneal Space: No significant free air or free fluid identified. Liver, Gallbladder, Biliary Tree: There is central biliary prominence in dilatation of the common bile duct in this patient Status post cholecystectomy. In the right lobe of the liver, there is a single 1 cm hypodensity seen which is indeterminate (13:30). No other liver masses are seen. Pancreas: Atrophic. No masses or ductal dilatation is seen. Spleen: Unremarkable Adrenal Glands: Unremarkable Kidneys and Ureters: The kidneys are normal in size, shape, and attenuation. No hydronephrosis, hydroureter, or calculi seen. No perinephric stranding. Bladder: Unremarkable Gastrointestinal Tract: The small and large bowel are unremarkable. The appendix is not seen with certainty but there is no evidence of appendicitis.. Abdominal Wall: No significant hernia is appreciated. Lymph Nodes: No retroperitoneal lymphadenopathy. Vascular: There is a Leriche syndrome with near occlusion of the distal aorta and iliac vessels. The suprarenal aorta only shows some minimal atherosclerotic change. The distal external iliac arteries are patent. Both common femoral arteries show typical posterior plaque causing mild stenosis. Femoral bifurcations are patent as are the proximal profunda femoris and superficial femoral arteries.. The IVC appears unremarkable. PELVIC VISCERA: Surgically removed. OSSEUS STRUCTURES: Degenerative changes present in the spine. There is posterior fusion with pedicular screws from L4 to S1 with interbody body disc device is at L4-L5 and L5-S1. No bony destructive lesions are seen. CT/CT abdomen pelvis w con IMPRESSION: 1. New multiloculated left pleural effusion. No air is seen within these fluid collections to suggest empyema. 2. The previously demonstrated left lower lobe mass is no longer visible. 3. Mediastinal lymphadenopathy has decreased in size since the 07/17/2020 study. 4. 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
[2020-09-09 20:30] VITALS: BP 110/53; BP 138/62; PULSE 87; PULSE 88; RESP 16; TEMP 37.1; O2SAT 93; O2SAT 96; BMI 30.9
[2020-09-09 21:09] LABS: Basophils Absolute Auto 0.1 X10*3/uL (0.0-0.2); Basophils Percent Auto 0.3 % (0-2); Eosinophils Absolute Auto 0.3 X10*3/uL (0.0-0.4); Eosinophils Percent Auto 1.4 % (0-4); Hematocrit 28.4 % (37-47); Hemoglobin 8.4 g/dl (12.0-16.0); Imm Gran Abs Auto 0.47 X10*3/uL (0.00-0.03); Imm Gran Pct Auto 2.4 % (0.0-0.4); Lymphocytes Absolute Auto 2.9 X10*3/uL (1.2-4.9); Lymphocytes Percent Auto 14.6 % (20-40); MANUAL DIFF FLAG SCAN; Mean Corpuscular HGB Conc 29.6 g/dl (31.0-35.0); Mean Corpuscular Hemoglobin 26.3 pg (27.0-33.0); Mean Corpuscular Volume 88.8 fL (80-98); Mean Platelet Volume 9.1 fL (9.4-12.3); Monocytes Absolute Auto 1.6 X10*3/uL (0.1-1.2); NRBC Pct Auto 0.2 /100WBC (0.0-0.2); Neutrophils Absolute Auto 14.4 X10*3/uL (2.0-8.3); Neutrophils Percent Auto 73.3 % (45-73); Platelet Count 374 X10*3/uL (160-400); SCAN SMEAR FLAG 1; White Blood Count 19.7 X10*3/uL (4.8-10.8)
[2020-09-09 21:30] LABS: SLIDE REVIEW VERIFIED
[2020-09-09 21:45] LABS: Prothrombin Time 11.5 SEC (10.8-13.0)
[2020-09-09 21:59] LABS: Alanine Aminotransferase 12 U/L (0-31); Albumin Level 3.1 g/dL (3.5-5.0); Alkaline Phosphatase 111 U/L (39-117); Anion Gap 14 (12-20); Aspartate Amino Transferase 20 U/L (5-31); Bilirubin Total 0.2 mg/dL (0.0-1.0); Blood Urea Nitrogen 18 mg/dL (9-16); Calcium 7.1 mg/dL (8.4-10.2); Carbon Dioxide 27 mmol/L (22-29); Chloride 102 mmol/L (96-108); Creatinine Clr Calc Pharmacy 59.3; Estimated Glomerular Filt Rate 52; Glucose Random 101 mg/dL (60-115); Potassium 3.6 mmol/L (3.3-5.1); Sodium 139 mmol/L (135-145); Total Protein 5.6 g/dL (6.5-8.0)
--- NOTE | 2020-09-09 22:43 | ED_ITS ---
HPI - Abdominal Pain General Chief Complaint: Abdominal Pain Stated Complaint: Abdominal pain Time Seen by Provider: 09/09/20 21:33 Source: patient Mode of arrival: EMS History of Present Illness HPI narrative: This is a 55-year-old female who is status post left lower lobe mass removal on 09/01 who presents with episodes of diarrhea that she stated contained ?a lot of blood that was read?. She stated that she had 2-3 episodes but has had none further this evening. She denies any nausea, vomiting, shortness of breath, chest pain, abdominal pain, but states that she was diagnosed with a UTI yesterday after presenting to her primary care provider with pain and burning on urination and was started on an antibiotic but she is unable to recall the name. She states that she is on home oxygen. She states that her colon CA is in remission. Related Data Home Medications Medication Instructions Recorded Confirmed amitriptyline 25 mg PO BEDTIME 04/21/20 08/14/20 amlodipine 10 mg PO DAILY 04/21/20 08/14/20 divalproex 500 mg PO DAILY 04/21/20 08/14/20 duloxetine 60 mg PO BEDTIME 04/21/20 08/14/20 omeprazole 20 mg PO BID@0630,1630 04/21/20 08/14/20 Breo Ellipta 1 inh INHALATION DAILY 05/26/20 08/14/20 Incruse Ellipta 1 inh INHALATION DAILY 05/26/20 08/14/20 aripiprazole 2 mg PO DAILY 05/26/20 08/14/20 clonazepam 0.5 mg PO TID 05/26/20 08/28/20 hydralazine 50 mg PO TID 05/26/20 08/14/20 metoprolol succinate 50 mg PO DAILY 05/26/20 08/14/20 oxycodone-acetaminophen 1 tab PO 5XD PRN 05/26/20 08/14/20 atorvastatin 20 mg PO BEDTIME 07/03/20 08/14/20 Previous Rx's Medication Instructions Recorded albuterol sulfate 2 puff INHALATION Q4-6H PRN #8.5 g 04/30/20 Allergies Allergy/AdvReac Type Severity Reaction Status Date / Time Penicillins Allergy Mild RASH Verified 07/31/20 10:17 venlafaxine [From Effexor] Allergy Mild RASH Verified 07/31/20 10:17 cyclobenzaprine Allergy Unknown UNKNOWN Verified 07/31/20 10:17 [Cyclobenzaprine] fentanyl [FENTANYL] Allergy Unknown HALLUCINATI Verified 07/31/20 10:17 ONS topiramate [From Topamax] Allergy Unknown UNKNOWN Verified 07/31/20 10:17 Review of Systems Review of Systems And negatives as stated in HPI 10 point review of systems is otherwise negative. Physical Exam Vital Signs: Vital Signs: Last Vital Signs Temp 98.8 F 09/09/20 20:30 Pulse 71 09/10/20 02:00 Resp 18 09/10/20 02:00 BP 118/57 L 09/10/20 02:00 Pulse Ox 94 09/10/20 02:00 Body Mass Index 30.9 VITAL SIGNS: Reviewed. GENERAL: Well developed, well nourished, in no acute distress. HEAD: Normocephalic/atraumatic EYES: PERRLA, EOMI NOSE: Nares patent bilateral OROPHARYNX: no oral lesions noted, posterior pharynx clear NECK: Supple, no adenopathy LUNGS: Normal breath sounds. No adventitious sounds or accessory muscle use. SpO2<93> CARDIOVASCULAR: Regular rate and rhythm without noted murmurs ABDOMEN: Soft, non-tender, non-distended with bowel sounds. ARELI: no inflamed hemorroids noted, minimal yellowish stool in rectal vault without gross blood, good rectal tone. NEUROLOGIC: Drowsy but easily arousable and oriented x 4. Course Course Course Narrative: 55-year-old female with history and clinical presentation suggestive of lower GI bleed of unknown etiology. On review of all investigations patient is noted to have an approximate 1g drop in hemoglobin, however has undergone thoracic surgery within the past 10 days as well. Patient is noted to have a significant leukocytosis with positive UTI and new multiloculated effusion noted on CT scan. ARELI was noted to be guaiac positive despite no gross findings on exam. Patient was given vanc and Rocephin (has penicillin allergy) to cover both pulmonary as well as urine sources and will be admitted. This case was discussed with the inpatient hospitalist team who is agreeable for admission. MDM - Abdominal Pain Lab Data Result diagrams: 09/09/20 21:03 09/09/20 21:29 Labs: Lab Results 09/09/20 09/09/20 09/09/20 Range/Units 21:03 21:03 21:29 WBC 19.7 H (4.8-10.8) X10*3/uL RBC 3.20 L (4.20-5.50) X10*6/uL Hgb 8.4 L (12.0-16.0) g/dl Hct 28.4 L (37-47) % MCV 88.8 (80-98) fL MCH 26.3 L (27.0-33.0) pg MCHC 29.6 L (31.0-35.0) g/dl RDW 16.0 (11.0-16.0) % Plt Count 374 (160-400) X10*3/uL MPV 9.1 L (9.4-12.3) fL Immature Gran % (Auto) 2.4 H (0.0-0.4) % Neut % (Auto) 73.3 H (45-73) % Lymph % (Auto) 14.6 L (20-40) % Garrett % (Auto) 8.0 (2-11) % Eos % (Auto) 1.4 (0-4) % Baso % (Auto) 0.3 (0-2) % Lymph # (Auto) 2.9 (1.2-4.9) X10*3/uL Garrett # (Auto) 1.6 H (0.1-1.2) X10*3/uL Eos # (Auto) 0.3 (0.0-0.4) X10*3/uL Baso # (Auto) 0.1 (0.0-0.2) X10*3/uL Abs Immat Gran (auto) 0.47 H (0.00-0.03) X10*3/uL Absolute Neuts (auto) 14.4 H (2.0-8.3) X10*3/uL Absolute Nucleated RBC 0.030 H (0.0-0.012) X10*3/uL Nucleated RBC % (auto) 0.2 (0.0-0.2) /100WBC Smear Tech's Comments VERIFIED PT 11.5 (10.8-13.0) SEC INR 1.0 (0.9-1.1) APTT 38.0 (24.1-38.0) SEC Hold Blue Top SEE NOTE Sodium 139 (135-145) mmol/L Potassium 3.6 (3.3-5.1) mmol/L Chloride 102 (96-108) mmol/L Carbon Dioxide 27 (22-29) mmol/L Anion Gap 14 (12-20) BUN 18 H D (9-16) mg/dL Creatinine 1.08 (0.5-1.4) mg/dL Estim Creat Clear Calc 59.3 Estimated GFR 52 Random Glucose 101 (60-115) mg/dL Lactic Acid (0.5-2.0) mmol/L Calcium 7.1 L (8.4-10.2) mg/dL Total Bilirubin 0.2 (0.0-1.0) mg/dL AST 20 D (5-31) U/L ALT 12 (0-31) U/L Alkaline Phosphatase 111 D (39-117) U/L Total Protein 5.6 L (6.5-8.0) g/dL Albumin 3.1 L (3.5-5.0) g/dL Urine Color Urine Appearance Urine pH (5.0-8.0) Ur Specific [place] (1.005-1.025) Urine Protein (NEG-TRACE) MG/DL Urine Glucose (UA) (NEG) MG/DL Urine Ketones (NEG) MG/DL Urine Blood (NEG) Urine Nitrite (NEG) Ur Leukocyte Esterase (NEG) Urine RBC (0) /HPF Urine WBC (0-4) /HPF Ur Squamous Epith Cells /LPF Ur Renal Epithelial Cell /LPF Urine Bacteria /LPF Urine Mucus /LPF Stool Occult Blood (NEGATIVE) COVID-19 (ANA) (Negative) COVID-19 Clin Com 09/09/20 09/10/20 09/10/20 Range/Units 22:32 00:02 00:02 WBC (4.8-10.8) X10*3/uL RBC (4.20-5.50) X10*6/uL Hgb (12.0-16.0) g/dl Hct (37-47) % MCV (80-98) fL MCH (27.0-33.0) pg MCHC (31.0-35.0) g/dl RDW (11.0-16.0) % Plt Count (160-400) X10*3/uL MPV (9.4-12.3) fL Immature Gran % (Auto) (0.0-0.4) % Neut % (Auto) (45-73) % Lymph % (Auto) (20-40) % Garrett % (Auto) (2-11) % Eos % (Auto) (0-4) % Baso % (Auto) (0-2) % Lymph # (Auto) (1.2-4.9) X10*3/uL Garrett # (Auto) (0.1-1.2) X10*3/uL Eos # (Auto) (0.0-0.4) X10*3/uL Baso # (Auto) (0.0-0.2) X10*3/uL Abs Immat Gran (auto) (0.00-0.03) X10*3/uL Absolute Neuts (auto) (2.0-8.3) X10*3/uL Absolute Nucleated RBC (0.0-0.012) X10*3/uL Nucleated RBC % (auto) (0.0-0.2) /100WBC Smear Tech's Comments PT (10.8-13.0) SEC INR (0.9-1.1) APTT (24.1-38.0) SEC Hold Blue Top Sodium (135-145) mmol/L Potassium (3.3-5.1) mmol/L Chloride (96-108) mmol/L Carbon Dioxide (22-29) mmol/L Anion Gap (12-20) BUN (9-16) mg/dL Creatinine (0.5-1.4) mg/dL Estim Creat Clear Calc Estimated GFR Random Glucose (60-115) mg/dL Lactic Acid 1.0 (0.5-2.0) mmol/L Calcium (8.4-10.2) mg/dL Total Bilirubin (0.0-1.0) mg/dL AST (5-31) U/L ALT (0-31) U/L Alkaline Phosphatase (39-117) U/L Total Protein (6.5-8.0) g/dL Albumin (3.5-5.0) g/dL Urine Color YELLOW Urine Appearance HAZY Urine pH 6.0 (5.0-8.0) Ur Specific [place] 1.010 (1.005-1.025) Urine Protein NEG (NEG-TRACE) MG/DL Urine Glucose (UA) NEG (NEG) MG/DL Urine Ketones NEG (NEG) MG/DL Urine Blood NEG (NEG) Urine Nitrite POS H (NEG) Ur Leukocyte Esterase TRACE H (NEG) Urine RBC 1-4 (0) /HPF Urine WBC 5-9 H (0-4) /HPF Ur Squamous Epith Cells 1+ /LPF Ur Renal Epithelial Cell 1+ /LPF Urine Bacteria 4+ /LPF Urine Mucus 1+ /LPF Stool Occult Blood (NEGATIVE) COVID-19 (ANA) Negative (Negative) COVID-19 Clin Com See Note 09/10/20 Range/Units 00:02 WBC (4.8-10.8) X10*3/uL RBC (4.20-5.50) X10*6/uL Hgb (12.0-16.0) g/dl Hct (37-47) % MCV (80-98) fL MCH (27.0-33.0) pg MCHC (31.0-35.0) g/dl RDW (11.0-16.0) % Plt Count (160-400) X10*3/uL MPV (9.4-12.3) fL Immature Gran % (Auto) (0.0-0.4) % Neut % (Auto) (45-73) % Lymph % (Auto) (20-40) % Garrett % (Auto) (2-11) % Eos % (Auto) (0-4) % Baso % (Auto) (0-2) % Lymph # (Auto) (1.2-4.9) X10*3/uL Garrett # (Auto) (0.1-1.2) X10*3/uL Eos # (Auto) (0.0-0.4) X10*3/uL Baso # (Auto) (0.0-0.2) X10*3/uL Abs Immat Gran (auto) (0.00-0.03) X10*3/uL Absolute Neuts (auto) (2.0-8.3) X10*3/uL Absolute Nucleated RBC (0.0-0.012) X10*3/uL Nucleated RBC % (auto) (0.0-0.2) /100WBC Smear Tech's Comments PT (10.8-13.0) SEC INR (0.9-1.1) APTT (24.1-38.0) SEC Hold Blue Top Sodium (135-145) mmol/L Potassium (3.3-5.1) mmol/L Chloride (96-108) mmol/L Carbon Dioxide (22-29) mmol/L Anion Gap (12-20) BUN (9-16) mg/dL Creatinine (0.5-1.4) mg/dL Estim Creat Clear Calc Estimated GFR Random Glucose (60-115) mg/dL Lactic Acid (0.5-2.0) mmol/L Calcium (8.4-10.2) mg/dL Total Bilirubin (0.0-1.0) mg/dL AST (5-31) U/L ALT (0-31) U/L Alkaline Phosphatase (39-117) U/L Total Protein (6.5-8.0) g/dL Albumin (3.5-5.0) g/dL Urine Color Urine Appearance Urine pH (5.0-8.0) Ur Specific [place] (1.005-1.025) Urine Protein (NEG-TRACE) MG/DL Urine Glucose (UA) (NEG) MG/DL Urine Ketones (NEG) MG/DL Urine Blood (NEG) Urine Nitrite (NEG) Ur Leukocyte Esterase (NEG) Urine RBC (0) /HPF Urine WBC (0-4) /HPF Ur Squamous Epith Cells /LPF Ur Renal Epithelial Cell /LPF Urine Bacteria /LPF Urine Mucus /LPF Stool Occult Blood POSITIVE (NEGATIVE) COVID-19 (ANA) (Negative) COVID-19 Clin Com Discharge Plan Discharge Clinical Impression: Pleural effusion, left UTI (urinary tract infection) Qualifiers: Urinary tract infection type: acute cystitis Hematuria presence: without hematuria Qualified Code(s): N30.00 - Acute cystitis without hematuria GI bleed Qualifiers: GI bleed type/associated pathology: unspecified gastrointestinal hemorrhage type Qualified Code(s): K92.2 - Gastrointestinal hemorrhage, unspecified Patient Disposition: Admitted As [facility]patient [facility] Past Medical History Source: nursing notes reviewed Medical History Acute and chronic respiratory failure Acute on chronic diastolic CHF (congestive heart failure) Back pain with history of spinal surgery Bipolar 1 disorder Bipolar disorder CAD (coronary artery disease) Chronic back pain COPD (chronic obstructive pulmonary disease) COPD (chronic obstructive pulmonary disease) Depression Fibromyalgia GERD (gastroesophageal reflux disease) High cholesterol HTN (hypertension) Hypoventilation associated with obesity Lung cancer Obesity Obesity hypoventilation syndrome IVY (obstructive sleep apnea) PTSD (post-traumatic stress disorder) Renal failure Respiratory failure with hypoxia and hypercapnia Restless legs syndrome (RLS) Rotator cuff strain Sleep disorder Smoker Surgical History H/O colonoscopy H/O: hysterectomy History of back surgery History of bunionectomy History of esophagogastroduodenoscopy (EGD) Hx of appendectomy Hx of cholecystectomy Hx of exploratory laparotomy Family History Family History Maternal Aunt Breast cancer Stroke COPD (chronic obstructive pulmonary disease) Maternal Aunt Breast cancer COPD (chronic obstructive pulmonary disease) Mother Uterine cancer COPD (chronic obstructive pulmonary disease) HTN (hypertension) Maternal Uncle Stroke Paternal Grandmother Heart attack Sister Diabetes IBS (irritable bowel syndrome) Son HTN (hypertension) Daughter HTN (hypertension) Father HTN (hypertension) Brother Heart disease Social History Social History Household Members: Spouse Housing: Apartment Alcohol intake: former Smoking Status: Former smoker Packs Per Day: 5 Cigarettes Per Day: 100.0 Years Smoked: 40 Second Hand Smoke Exposure: Yes Advance Directives: No Advance Directives Information Provided: Yes service: No Current occupational status: disabled
[2020-09-09 23:38] VITALS: BP 109/58; PULSE 80; RESP 14; O2SAT 99
[2020-09-10] VITALS (10 sets, daily range): BP systolic 105–157; BP diastolic 57–70; PULSE 71–97; RESP 14–22; TEMP 36.5–37.7; O2SAT 91–97; BMI 35.4; BMI 35.7
[2020-09-10] MEDS: cefTRIAXone sodium 1 GM in 0.9 % Sodium Chloride 50 ML IV ×2 (00:01→22:09)
[2020-09-10 00:11] LABS: Glucose Urine UA NEG (NEG); Leukocyte Esterase Urine TRACE (NEG); Nitrite Urine POS (NEG); UACC Culture Trigger YES; Urine Blood NEG (NEG); Urine Ketones NEG (NEG); Urine Protein NEG (NEG-TRACE)
[2020-09-10 00:14] LABS: Appearance Urine HAZY; Color Urine YELLOW
[2020-09-10 00:15] LABS: OBS Int Ctl Valid YES; OBS1 POSITIVE (NEGATIVE)
[2020-09-10 00:22] LABS: Bacteria Urine 4+ /LPF; COVID-19 Test Negative (Negative); IDNOW Serial# 9DD0AD1C; Mucus Urine 1+ /LPF; Renal Epithelial Cells Urine 1+ /LPF; Squamous Epithelial Cell Urine 1+ /LPF
[2020-09-10] MEDS: vancomycin HCL 1,000 MG in 0.9 % Sodium Chloride 250 ML 270 MG IV (01:10)
--- NOTE | 2020-09-10 02:49 | PC.NURSE ---
report was given to MARIAMA Da Silva
--- NOTE | 2020-09-10 03:29 | PC.NURSE ---
Percocet and Clonazepam were counted with another RN and locked and will be sent to the pharmacy in the morning
--- NOTE | 2020-09-10 05:54 | PM.IMHP ---
History of Present Illness Date of Service: 09/10/20 Chief Complaint: blood per rectum 55-year-old female with past medical history of acute on chronic respiratory failure on baseline 2 L of oxygen, CHF, bipolar disorder, CAD, COPD, depression, fibromyalgia, HLD, HTN, hypoventilation associated with obesity, lung cancer with recent lobectomy, presents to the hospital with complaints of bloody bowel movements. Patient is extremely lethargic during my exam, unclear why, reports that she uses Percocet at home but did not use any prior to come to the hospital. She is arousable but falls right back asleep. Therefore history is obtained mostly from ED physician as well as nurse at bedside will obtain history from patient when she 1st arrived. It appears that patient had 2-3 episodes of bloody bowel movements bright red blood per rectum, with no abdominal pain nausea or vomiting. She has also complained of urinary symptoms including dysuria, as well as frequency. When I woke her long enough to ask any questions she reported shortness of breath with cough but unclear for what amount of time. I am unable to obtain rest of review of system is patient too lethargic to stay awake long enough. To the ED hemodynamically stable with vitals significant for a temp of 98.8?, heart rate of 87, respiratory rate of 16, satting 93% on nasal cannula. Was reported that she was high 80s on 2 L of baseline oxygen. Labs are significant for WBC count of 19.7, hemoglobin of 8.4 that dropped from 9.7 on 08/05, MCV of 88.8, platelet count of 374, PT of 11.5, INR of 1.0, BUN of 18, creatinine of 1.08 with a baseline around 0.8, albumin 3.1, UA that is positive for nitrites, leukocyte Estrace, WBC, COVID-19 negative, chest CT demonstrates multiloculated left pleural effusion with no air within these fluid collection to suggest empyema. Previously demonstrated left lower lobe mass is no longer visible. Mediastinal lymphadenopathy has decreased in size since July of 2020. Medical records are pending from [facility] as patient reported that she was discharged few days ago from [facility] after undergoing lobectomy for her lung cancer. Past medical history as below per EMR, unable to confirm with patient Review of Systems Review of Systems: Yes all other systems are reviewed and are negative [facility] Medical History Acute and chronic respiratory failure Acute on chronic diastolic CHF (congestive heart failure) Back pain with history of spinal surgery Bipolar 1 disorder Bipolar disorder CAD (coronary artery disease) Chronic back pain COPD (chronic obstructive pulmonary disease) COPD (chronic obstructive pulmonary disease) Depression Fibromyalgia GERD (gastroesophageal reflux disease) High cholesterol HTN (hypertension) Hypoventilation associated with obesity Lung cancer Obesity Obesity hypoventilation syndrome IVY (obstructive sleep apnea) PTSD (post-traumatic stress disorder) Renal failure Respiratory failure with hypoxia and hypercapnia Restless legs syndrome (RLS) Rotator cuff strain Sleep disorder Smoker Family History Maternal Aunt Breast cancer Stroke COPD (chronic obstructive pulmonary disease) Maternal Aunt Breast cancer COPD (chronic obstructive pulmonary disease) Mother Uterine cancer COPD (chronic obstructive pulmonary disease) HTN (hypertension) Maternal Uncle Stroke Paternal Grandmother Heart attack Sister Diabetes IBS (irritable bowel syndrome) Son HTN (hypertension) Daughter HTN (hypertension) Father HTN (hypertension) Brother Heart disease Surgical History H/O colonoscopy H/O: hysterectomy History of back surgery History of bunionectomy History of esophagogastroduodenoscopy (EGD) Hx of appendectomy Hx of cholecystectomy Hx of exploratory laparotomy Social History Household Members: Spouse Housing: Apartment Do you presently have visiting nurse or other home services: Yes ([facility]) Alcohol intake: former Smoking Status: Never smoker Packs Per Day: 5 Cigarettes Per Day: 100.0 Years Smoked: 40 Second Hand Smoke Exposure: Yes Use of substances other than those prescribed or required for medical reasons: No Have you been hit, kicked, punched, or otherwise hurt by someone within the past year? If so, by whom?: No Do you feel safe in your current relationship?: Yes Is there a partner from a previous relationship who is making you feel unsafe now?: No Are you made to feel afraid or neglected: No Advance Directives: No Advance Directives Information Provided: Yes Do you have thoughts of harming others: None Do you have a plan to hurt others: No Plan Recently lost weight without trying: Unsure service: No Current occupational status: disabled Meds Allergies Allergy/AdvReac Type Severity Reaction Status Date / Time Penicillins Allergy Mild RASH Verified 09/10/20 03:28 venlafaxine [From Effexor] Allergy Mild RASH Verified 09/10/20 03:28 cyclobenzaprine Allergy Unknown UNKNOWN Verified 09/10/20 03:28 [Cyclobenzaprine] fentanyl [FENTANYL] Allergy Unknown HALLUCINATI Verified 09/10/20 03:28 ONS topiramate [From Topamax] Allergy Unknown UNKNOWN Verified 09/10/20 03:28 Active Medications: Current Medications Generic Name Dose Route Start Last Admin Trade Name Freq PRN Reason Stop Dose Admin Acetaminophen 650 mg 09/10/20 04:00 Acetaminophen 325 Mg Tablet PO Q6H PRN Pain, Mild (Pain Scale 1-3) Acetaminophen 650 mg 09/10/20 04:00 Acetaminophen Supp 650 Mg Supp.Rect NE Q6H PRN Pain, Mild (Pain Scale 1-3) Docusate Sodium 100 mg 09/10/20 04:00 Docusate Sodium 100 Mg Capsule PO DAILY PRN Constipation Ceftriaxone Sodium 1 gm/ 50 mls @ 100 mls/hr 09/10/20 23:00 Sodium Chloride IV Q24H [facility] Ondansetron HCl 4 mg 09/10/20 04:00 Ondansetron Hcl 4 Mg/2 Ml Vial IVPUSH Q8H PRN Nausea and Vomiting Pantoprazole Sodium 40 mg 09/10/20 06:30 Pantoprazole Sodium 40 Mg/10 Ml Vial IVPUSH BID@0630,1630 [facility] Pharmacy Consult 1 each 09/09/20 23:32 Consult Rx Vancomycin Dosing MISCELLANE DAILY PRN Consult order Sodium Chloride 3 ml 09/10/20 08:00 0.9 % Sodium Chloride Flush 3 Ml Syringe IVFLUSH QSHIFT [facility] Home Medications Medication Instructions Recorded Confirmed Last Taken Type amitriptyline 25 mg PO BEDTIME 04/21/20 08/14/20 07/02/20 History amlodipine 10 mg PO DAILY 04/21/20 08/14/20 08/06/20 History divalproex 500 mg PO DAILY 04/21/20 08/14/20 08/06/20 History duloxetine 60 mg PO BEDTIME 04/21/20 08/14/20 07/02/20 History omeprazole 20 mg PO BID@0630,1630 04/21/20 08/14/20 08/06/20 History Breo Ellipta 1 inh INHALATION DAILY 05/26/20 08/14/20 08/06/20 History Incruse Ellipta 1 inh INHALATION DAILY 05/26/20 08/14/20 08/06/20 History aripiprazole 2 mg PO DAILY 05/26/20 08/14/20 08/06/20 History clonazepam 0.5 mg PO TID 05/26/20 08/28/20 08/06/20 History hydralazine 50 mg PO TID 05/26/20 08/14/20 08/06/20 History metoprolol succinate 50 mg PO DAILY 05/26/20 08/14/20 07/03/20 History oxycodone-acetaminophen 1 tab PO 5XD PRN 05/26/20 08/14/20 08/06/20 History atorvastatin 20 mg PO BEDTIME 07/03/20 08/14/20 08/06/20 History Physical Exam Vital Signs and Narrative: Vital Signs: Last Vital Signs Temp 98.1 F 09/10/20 03:53 Pulse 88 09/10/20 03:53 Resp 18 09/10/20 03:53 BP 131/65 09/10/20 03:53 Pulse Ox 91 L 09/10/20 03:53 Body Mass Index 35.4 Const: Other: Extremely lethargic, with no evidence of overdose, no pinpoint pupils, arousable General: no acute distress Eyes: Other: No pinpoint pupils, General: appearance normal, both eyes and all related structures Pupils: Equal, round and reactive pupils present Resp: Effort & Inspection: normal respiratory effort Cardio: Rate: regular rate Rhythm: regular rhythm GI: Palpation (GI): Soft to palpation Auscultation: normal bowel sounds Skin: General skin exam: no rashes or lesions noted Neuro: Cranial nerves: Yes Equal, round and reactive pupils present Cognition (Neuro): normal cognition Extrem: General: Yes normal to inspection and Yes no pedal edema Results Labs CBC and Chem 7: 09/09/20 21:03 09/09/20 21:29 Labs: Laboratory Results - last 24 hr 09/09/20 09/09/20 09/09/20 21:03 21:03 21:29 MCV 88.8 MCH 26.3 L MCHC 29.6 L RDW 16.0 Plt Count 374 MPV 9.1 L Immature Gran % (Auto) 2.4 H Neut % (Auto) 73.3 H Lymph % (Auto) 14.6 L [place] % (Auto) 8.0 Eos % (Auto) 1.4 Baso % (Auto) 0.3 Lymph # (Auto) 2.9 [place] # (Auto) 1.6 H Eos # (Auto) 0.3 Baso # (Auto) 0.1 Abs Immat Gran (auto) 0.47 H Absolute Neuts (auto) 14.4 H Absolute Nucleated RBC 0.030 H Nucleated RBC % (auto) 0.2 Smear Tech's Comments VERIFIED PT 11.5 INR 1.0 APTT 38.0 Hold Blue Top SEE NOTE Anion Gap 14 Estim Creat Clear Calc 59.3 Estimated GFR 52 Random Glucose 101 Lactic Acid Calcium 7.1 L Total Bilirubin 0.2 AST 20 D ALT 12 Alkaline Phosphatase 111 D Total Protein 5.6 L Albumin 3.1 L Urine Color Urine Appearance Urine pH Ur Specific [place] Urine Protein Urine Glucose (UA) Urine Ketones Urine Blood Urine Nitrite Ur Leukocyte Esterase Urine RBC Urine WBC Ur Squamous Epith Cells Ur Renal Epithelial Cell Urine Bacteria Urine Mucus Stool Occult Blood COVID-19 (ANA) Aph[facility] 09/09/20 09/10/20 09/10/20 22:32 00:02 00:02 MCV MCH MCHC RDW Plt Count MPV Immature Gran % (Auto) Neut % (Auto) Lymph % (Auto) [place] % (Auto) Eos % (Auto) Baso % (Auto) Lymph # (Auto) [place] # (Auto) Eos # (Auto) Baso # (Auto) Abs Immat Gran (auto) Absolute Neuts (auto) Absolute Nucleated RBC Nucleated RBC % (auto) Smear Tech's Comments PT INR APTT Hold Blue Top Anion Gap Estim Creat Clear Calc Estimated GFR Random Glucose Lactic Acid 1.0 Calcium Total Bilirubin AST ALT Alkaline Phosphatase Total Protein Albumin Urine Color YELLOW Urine Appearance HAZY Urine pH 6.0 Ur Specific [place] 1.010 Urine Protein NEG Urine Glucose (UA) NEG Urine Ketones NEG Urine Blood NEG Urine Nitrite POS H Ur Leukocyte Esterase TRACE H Urine RBC 1-4 Urine WBC 5-9 H Ur Squamous Epith Cells 1+ Ur Renal Epithelial Cell 1+ Urine Bacteria 4+ Urine Mucus 1+ Stool Occult Blood COVID-19 (ANA) Negative COVID-19 Clin Com See Note 09/10/20 00:02 MCV MCH MCHC RDW Plt Count MPV Immature Gran % (Auto) Neut % (Auto) Lymph % (Auto) [place] % (Auto) Eos % (Auto) Baso % (Auto) Lymph # (Auto) [place] # (Auto) Eos # (Auto) Baso # (Auto) Abs Immat Gran (auto) Absolute Neuts (auto) Absolute Nucleated RBC Nucleated RBC % (auto) Smear Tech's Comments PT INR APTT Hold Blue Top Anion Gap Estim Creat Clear Calc Estimated GFR Random Glucose Lactic Acid Calcium Total Bilirubin AST ALT Alkaline Phosphatase Total Protein Albumin Urine Color Urine Appearance Urine pH Ur Specific [place] Urine Protein Urine Glucose (UA) Urine Ketones Urine Blood Urine Nitrite Ur Leukocyte Esterase Urine RBC Urine WBC Ur Squamous Epith Cells Ur Renal Epithelial Cell Urine Bacteria Urine Mucus Stool Occult Blood POSITIVE COVID-19 (ANA) COVID-19 Clin Com Imaging Radiologist's Impressions: Impressions Abdomen/Pelvis CT 09/09/20 21:33 IMPRESSION: 1. New multiloculated left pleural effusion. No air is seen within these fluid collections to suggest empyema. 2. The previously demonstrated left lower lobe mass is no longer visible. 3. Mediastinal lymphadenopathy has decreased in size since the 07/17/2020 study. 4. 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 Chest CT 09/09/20 21:33 IMPRESSION: 1. New multiloculated left pleural effusion. No air is seen within these fluid collections to suggest empyema. 2. The previously demonstrated left lower lobe mass is no longer visible. 3. Mediastinal lymphadenopathy has decreased in size since the 07/17/2020 study. 4. 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 Assessment and Plan (1) GI bleed: Qualifiers: GI bleed type/associated pathology: unspecified gastrointestinal hemorrhage type Qualified Code(s): K92.2 - Gastrointestinal hemorrhage, unspecified Status: Acute (2) UTI (urinary tract infection): Qualifiers: Hematuria presence: without hematuria Urinary tract infection type: acute cystitis Qualified Code(s): N30.00 - Acute cystitis without hematuria Status: Acute (3) Pleural effusion, left: Status: Acute (4) Acute and chronic respiratory failure: Problem details: H/o ICU admission but no intubation Status: Acute (5) Cancer of lower lobe of left lung: Status: Acute (6) Lethargy: Status: Acute 55-year-old female with extensive past medical history as mentioned above who presents to the hospital with complaints of GI bleed found to have pleural effusion as well as UTI # GI bleed - reported 2-3 episodes of bright red blood per rectum - stable hemoglobin but dropped by 1 unit since August of this year - will keep patient NPO, start pantoprazole 40 IV b.i.d. - consult GI # pleural effusion - multiloculated pleural effusion on chest x-ray - CT chest shows no evidence of fluid collection in these pleural effusions - has increased O2 demand from 2 L at baseline to 3 L - no evidence of volume overload clinically - will obtain BNP to rule out CHF - pulmonology consult # acute on chronic hypoxic respiratory failure - requiring 3 L of oxygen to maintain oxygen above 90% - possibly secondary to COPD exacerbation - unable to obtain much history from patient but did reports shortness of breath and cough - will treat for COPD exacerbation with Solu-Medrol, DuoNeb p.r.n. - COVID-19 negative - will obtain ABG to rule out CO2 retention as patient is also lethargic # cancer of lower lobe of left lung - patient reported recent admission to [facility] with lobectomy - chest CT shows that the mass present on previous imaging is no longer visible - pending records from [facility] # lethargy - pssobly 2/2 CO2 retention - pending ABG # HTN - Stable - resume home meds once recopnciled We were unable to re-consult medication as patient too lethargic report her medication regimen DVT prophylaxis: Heparin subQ
[2020-09-10] MEDS: Pantoprazole Sodium 40 MG/10 ML VIAL IVPUSH ×2 (06:01→16:44)
[2020-09-10] MEDS: methylPREDNISolone Sod Succ 40 MG/ML VIAL IVPUSH (06:40)
[2020-09-10 06:53] LABS: B Type Natriuretic Peptide 208 pg/mL (<100)
[2020-09-10] MEDS: Albuterol/Iprat 2.5/0.5MG 3 ML AMPUL.NEB INHALE ×4 (07:30→19:33)
[2020-09-10 07:45] LABS: ABG Base Excess 2.9 mmol/L; ABG HCO3 29 mmol/L (22-26); ABG pCO2 61 mmHg (32-45); ABG pCO2 TC 61 mmHg (32-45); ABG pH 7.29 (7.35-7.45); ABG pH TC 7.29 (7.35-7.45); ABG pO2 61 mmHg (83-108); ABG pO2 TC 61 (83-108)
[2020-09-10 07:49] LABS: ABG Refer to POC result
[2020-09-10] MEDS: 0.9 % Sodium Chloride Flush 3 ML SYRINGE IVFLUSH ×3 (08:11→23:55)
--- NOTE | 2020-09-10 09:47 | PM.EVENT ---
Event Note Date of Service: 09/10/20 Event Note: I SAW THIS PATIENT FOR PULMONARY CONSULTATION THIS MORNING. REVIEWED HER COURSE OF EVENTS, LAB AND CT SCAN OF THE CHEST. COMPLETE NOTE IS DICTATED. A: INCREASED ANEMIA SECONDARY TO LOW-GRADE GI BLEEDING. PATIENT WITH HISTORY OF ADENO CARCINOMA LEFT LOWER LOBE STATUS POST RECENT LEFT LOWER LOBE LOBECTOMY WITH DEVINCI PROCEDURE, RECOVERING WELL. PLEURAL EFFUSION ALONG THE LEFT THORACIC WALL, POST SURGICAL, NOT SIGNIFICANT. BREATHING EXERCISES MUCH POSSIBLE CHRONIC OBSTRUCTIVE PULMONARY DISEASE/ CHRONIC RESPIRATORY FAILURE SECONDARY TO HYPOVENTILATION SYNDROME, SEEMS TO BE AT BASELINE, PCO2 61 . P: CONTINUE HER REGULAR PULMONARY MEDS INCLUDING BREO 1 INHALATION DAILY AND ALBUTEROL UPDRAFT Q.4 HOURS P.R.N.. CONTINUE OXYGEN 2 L/MINUTE THE GOAL TO KEEP O2 SAT ABOVE 89% PATIENT INSTRUCTED TO DO DEEP BREATHING EXERCISES WITH INCENTIVE SPIROMETRY. PATIENT NEEDS TO USE HER BIPAP AT NIGHT, SHE CAN HAVE HER OWN MACHINE BROUGHT INTO THE HOSPITAL. NO NEED TO TREAT WITH ANTIBIOTICS ARE WITH STEROIDS AT THIS TIME. THANK YOU, WILL BE GLAD TO FOLLOW HER ALONG.
--- NOTE | 2020-09-10 10:34 | P.CNGI_ITS ---
History of Present Illness Data of Consult Service Date: 09/10/20 Requesting physician: Howard Wagoner Primary Care Provider: Unknown Physician HPI Reason for consult: anemia, rectal bleeding 55-year-old female with past medical history of acute on chronic respiratory failure on baseline 2 L of oxygen, CHF, bipolar disorder, CAD, COPD, depression, fibromyalgia, HLD, HTN, lung cancer with recent lobectomy, who I am asked to see for assessment for rectal bleeding. Of note patient is known to have sigmoid colon cancer (non obstructive 4 cm) in addition to lung cancer and see Dr Ahumada Patient had been constipated last few days and trying to pass stool, when a large cyclidrical shaped amount of stool came out with blood that splashed onto her clothes and back. she had 2-3 episodes like this. She has no abdominal pain and is passing gas. Appetite is fair, weight stable. Takes percocet prn for pain. She has also complained of urinary symptoms including dysuria, as well as frequency and also SOB with non productive cough. she is very weepy and upset, wants to go home Labs: WBC count of 19.7, hemoglobin of 8.4 that dropped from 9.7 on 08/05, MCV of 88.8, platelet count of 374, PT of 11.5, INR of 1.0, BUN of 18, creatinine of 1.08 with a baseline around 0.8, albumin 3.1, UA that is positive for nitrites, leukocyte Estrace, WBC, COVID-19 negative, Imaging: multiloculated left pleural effusion with no air and reduced mediastinal lymphadenopathy aorto illiac occlusive disease, no acute findings of colitis or ischemic bowel Review of Systems Review of Systems: And negatives as stated in HPI 10 point review of systems is otherwise negative. Yes all other systems are reviewed and are negative [facility] Past Medical History Medical History Acute and chronic respiratory failure Acute on chronic diastolic CHF (congestive heart failure) Back pain with history of spinal surgery Bipolar 1 disorder Bipolar disorder CAD (coronary artery disease) Chronic back pain COPD (chronic obstructive pulmonary disease) COPD (chronic obstructive pulmonary disease) Depression Fibromyalgia GERD (gastroesophageal reflux disease) High cholesterol HTN (hypertension) Hypoventilation associated with obesity Lung cancer Obesity Obesity hypoventilation syndrome IVY (obstructive sleep apnea) PTSD (post-traumatic stress disorder) Renal failure Respiratory failure with hypoxia and hypercapnia Restless legs syndrome (RLS) Rotator cuff strain Sleep disorder Smoker Family History Family History Maternal Aunt Breast cancer Stroke COPD (chronic obstructive pulmonary disease) Maternal Aunt Breast cancer COPD (chronic obstructive pulmonary disease) Mother Uterine cancer COPD (chronic obstructive pulmonary disease) HTN (hypertension) Maternal Uncle Stroke Paternal Grandmother Heart attack Sister Diabetes IBS (irritable bowel syndrome) Son HTN (hypertension) Daughter HTN (hypertension) Father HTN (hypertension) Brother Heart disease Surgical History Surgical History H/O colonoscopy H/O: hysterectomy History of back surgery History of bunionectomy History of esophagogastroduodenoscopy (EGD) Hx of appendectomy Hx of cholecystectomy Hx of exploratory laparotomy Social History Social History Household Members: Spouse Housing: Apartment Do you presently have visiting nurse or other home services: Yes ([facility]) Alcohol intake: former Smoking Status: Never smoker Packs Per Day: 5 Cigarettes Per Day: 100.0 Years Smoked: 40 Second Hand Smoke Exposure: Yes Use of substances other than those prescribed or required for medical reasons: No Currently Displaying Signs/Symptoms of Drug Intoxication Withdrawal: No Have you been hit, kicked, punched, or otherwise hurt by someone within the past year? If so, by whom?: No Do you feel safe in your current relationship?: Yes Is there a partner from a previous relationship who is making you feel unsafe now?: No Are you made to feel afraid or neglected: No Advance Directives: No Advance Directives Information Provided: Yes Do you have thoughts of harming others: None Do you have a plan to hurt others: No Plan Recently lost weight without trying: Unsure service: No Current occupational status: unemployed and disabled Meds Allergies Allergy/AdvReac Type Severity Reaction Status Date / Time Penicillins Allergy Mild RASH Verified 09/10/20 03:28 venlafaxine [From Effexor] Allergy Mild RASH Verified 09/10/20 03:28 cyclobenzaprine Allergy Unknown UNKNOWN Verified 09/10/20 03:28 [Cyclobenzaprine] fentanyl [FENTANYL] Allergy Unknown HALLUCINATI Verified 09/10/20 03:28 ONS topiramate [From Topamax] Allergy Unknown UNKNOWN Verified 09/10/20 03:28 Active Medications: Current Medications Generic Name Dose Route Start Last Admin Trade Name Freq PRN Reason Stop Dose Admin Acetaminophen 650 mg 09/10/20 04:00 Acetaminophen 325 Mg Tablet PO Q6H PRN Pain, Mild (Pain Scale 1-3) Acetaminophen 650 mg 09/10/20 04:00 Acetaminophen Supp 650 Mg Supp.Rect [place] Q6H PRN Pain, Mild (Pain Scale 1-3) Albuterol/Ipratropium 3 ml 09/10/20 08:00 09/10/20 07:30 Albuterol/Iprat 2.5/0.5mg 3 Ml Ampul.Neb INHALE 3 ml RQ4H WHILE AWAKE LONG Administration Albuterol/Ipratropium 3 ml 09/10/20 06:06 Albuterol/Iprat 2.5/0.5mg 3 Ml Ampul.Neb INHALE RQ4H PRN Shortness of Breath/Wheezing Docusate Sodium 100 mg 09/10/20 04:00 Docusate Sodium 100 Mg Capsule PO DAILY PRN Constipation Ceftriaxone Sodium 1 gm/ 50 mls @ 100 mls/hr 09/10/20 23:00 Sodium Chloride IV Q24H LONG Methylprednisolone Sodium Succinate 40 mg 09/10/20 06:15 09/10/20 06:40 Methylprednisolone Sod Succ 40 Mg/Ml Vial IVPUSH 40 mg Q12H LONG Administration Ondansetron HCl 4 mg 09/10/20 04:00 Ondansetron Hcl 4 Mg/2 Ml Vial IVPUSH Q8H PRN Nausea and Vomiting Pantoprazole Sodium 40 mg 09/10/20 06:30 09/10/20 06:01 Pantoprazole Sodium 40 Mg/10 Ml Vial IVPUSH 40 mg BID@0630,1630 LONG Administration Sodium Chloride 3 ml 09/10/20 08:00 09/10/20 08:11 0.9 % Sodium Chloride Flush 3 Ml Syringe IVFLUSH 3 ml QSHIFT LONG Administration Home Medications Medication Instructions Recorded Confirmed Last Taken Type amitriptyline 25 mg PO BEDTIME 04/21/20 09/10/20 09/08/20 History amlodipine 10 mg PO DAILY 04/21/20 09/10/20 09/09/20 History divalproex 500 mg PO DAILY 04/21/20 09/10/20 09/09/20 History duloxetine 60 mg PO BEDTIME 04/21/20 09/10/20 09/08/20 History omeprazole 20 mg PO BID 04/21/20 09/10/20 09/09/20 History Breo Ellipta 1 inh INHALATION DAILY 05/26/20 09/10/20 09/09/20 History Incruse Ellipta 1 inh INHALATION DAILY 05/26/20 09/10/20 09/09/20 History aripiprazole 2 mg PO DAILY 05/26/20 09/10/20 09/09/20 History clonazepam 0.5 mg PO TID 05/26/20 09/10/20 09/09/20 History hydralazine 50 mg PO TID 05/26/20 09/10/20 09/09/20 History metoprolol succinate 50 mg PO DAILY 05/26/20 09/10/20 09/09/20 History oxycodone-acetaminophen 1 tab PO 5XD PRN 05/26/20 09/10/20 09/09/20 History atorvastatin 20 mg PO BEDTIME 07/03/20 09/10/20 09/08/20 History aspirin 81 mg PO DAILY 09/10/20 09/10/20 09/09/20 History divalproex 1,000 mg PO BEDTIME 09/10/20 09/10/20 09/08/20 History ferrous sulfate 1 tab PO BID 09/10/20 09/10/20 09/09/20 History Physical Exam Vital Signs: Vital Signs: Last Vital Signs Temp 98.7 F 09/10/20 07:20 Pulse 78 09/10/20 07:20 Resp 18 09/10/20 07:20 BP 134/70 09/10/20 07:20 Pulse Ox 91 L 09/10/20 07:20 Body Mass Index 35.7 Const: Other: weepy General: no acute distress Eyes: General: appearance normal, both eyes and all related structures Pupils: Equal, round and reactive pupils present Resp: Effort & Inspection: normal respiratory effort Auscultation: diminished lung sounds Cardio: Rate: regular rate Rhythm: regular rhythm GI: Palpation (GI): Soft to palpation Auscultation: normal bowel sounds Skin: General skin exam: no rashes or lesions noted Neuro: Cranial nerves: Yes Equal, round and reactive pupils present Cognition (Neuro): normal cognition Extrem: General: Yes normal to inspection and Yes no pedal edema Results Labs CBC & Chem 7: 09/09/20 21:03 09/09/20 21:29 Labs: Short CBC 09/09/20 Range/Units 21:03 WBC 19.7 H (4.8-10.8) X10*3/uL Hgb 8.4 L (12.0-16.0) g/dl Hct 28.4 L (37-47) % Plt Count 374 (160-400) X10*3/uL BMP 09/09/20 21:29 Sodium 139 Potassium 3.6 Chloride 102 Carbon Dioxide 27 BUN 18 H D Creatinine 1.08 Calcium 7.1 L Liver Function 09/09/20 Range/Units 21:29 Total Bilirubin 0.2 (0.0-1.0) mg/dL AST 20 D (5-31) U/L ALT 12 (0-31) U/L Alkaline Phosphatase 111 D (39-117) U/L Albumin 3.1 L (3.5-5.0) g/dL Urine 09/10/20 Range/Units 00:02 Urine Color YELLOW Urine Appearance HAZY Urine pH 6.0 (5.0-8.0) Ur Specific [place] 1.010 (1.005-1.025) Urine Protein NEG (NEG-TRACE) MG/DL Urine Glucose (UA) NEG (NEG) MG/DL Assessment and Plan (1) GI bleed: Qualifiers: GI bleed type/associated pathology: unspecified gastrointestinal hemorrhage type Qualified Code(s): K92.2 - Gastrointestinal hemorrhage, unspecified Status: Acute (2) Colon cancer: Status: Acute 1/ Acute blood loss with 1 g drop in HGB, ddx; could be from hemorrhoids, vs bleeding from tumour which may have been irritated by hard stool and constipation which is prob multifactorial from opiate use, beta blockers and other medications. She is undecided on colonoscpy for further assessment citing she is fed up and wants to go home. offered counselling but she feels it won't help. If this is tumour bleeding then hemospray would be a good option, otherwise treatment for her constipation would include low roughage diet, ad aggressive laxative regimen. Can try colace 100 mg bid with miralax BID. Avoid stimulant laxatives like senna. Depending on narc use then movantik or methylnaltrexone are other options. If tumour has progressed and she has obstruction then temporary stent placement vs surgical treatment may be options. for moment keep on clears, and if agrees then bowel prep otherwise cont to monitor her and advance diet if she is not keen on colonoscopy.
--- NOTE | 2020-09-10 11:23 | MHC.CM.PN ---
PT REPORTS SHE LIVES AT HOME WITH HER AND IS INDEPENDENT WITH SELF CARE. PT HAS A CPAP AND HOME O2. PT WAS DISCHARGED WITH [facility] IN JULY, THEY WILL RESUME SERVICES PENDING RECERT. PT REPORTS HER PCP IS DR KUMAR AND SHE HAS A HCP ON FILE. IMM DELIVERED CURRENT DC PLAN IS HOME WITH RESUMPTION OF [facility]. HER WILL TRANSPORT
[2020-09-10] MEDS: Acetaminophen 325 MG TABLET 650 MG PO ×2 (13:06→21:30)
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
--- NOTE | 2020-09-10 14:49 | PM.EVENT ---
Event Note Date of Service: 09/11/20 Event Note: Patient seen and examined by hospitalist team this morning, seen and examined again. Still somewhat short of breath no episode of new bleeding has hx of colon ca. Physical exam: Cvs: rrr, [id number] , no murmur res: air netry seems dimished at lower lobes , has wheezin abd: no rebound or guarding ,nt, bs present. ext pulses present , no cyanosis neuro: axo3 , nonfocal. Assessment and plan: Gi bleed : Continue PPI Monitor CBC closely Discussed with GI: Patient initially was hesitating get colonoscopy but she agrees later on Dr. Sauceda is following caute hypoxemic respiratory failure: As COPD Uses BiPAP at home IV steroids, nebs, breo Lethargy seems to be improving
--- NOTE | 2020-09-10 15:49 | CONS_ITS ---
DATE OF SERVICE: HISTORY OF PRESENT ILLNESS: This 55-year-old female is admitted during the night with chief complaint of bleeding per rectum and she feels very weak and tired. Her hemoglobin is down to 8.4 g. The patient is fairly alert, but not able to give all the details. Most of the information is available in her medical records. This 55-year-old female has a long-standing history of COPD and obesity related hypoventilation syndrome. She does have CPAP machine at home and currently, she has been using it at night. The patient was admitted in April 2020 with active COVID infection. She had infiltrate in the left lower lobe, initially treated as pneumonia, but then she was left with a left lower lobe mass of 2.5 cm in size and underwent percutaneous needle biopsy, which was positive for undifferentiated adenocarcinoma. This biopsy was performed in early July 26. Subsequently, she was seen by Thoracic Surgery and had left lower lobectomy by Dr. Cota at [facility]. This was done only about 2 weeks ago and she is recovering from that. Even prior to this surgical intervention, she was known to have carcinoma of the colon and the plan was to have surgical resection of the colon once she has recovered from the chest surgery. For the lungs problem, she has oxygen at home, which she uses along with CPAP at nighttime and she is supposed to be on Breo 200 - one inhalation daily and DuoNeb updrafts 3 to 4 times a day. PAST MEDICAL HISTORY: This patient has an extensive past medical history with multiple medical problems are listed in the medical records and basically include the following, 1. Bipolar disorder. 2. Coronary artery disease. 3. Chronic obstructive/restrictive pulmonary disease. 4. Chronic depression. 5. Fibromyalgia. 6. Obstructive sleep apnea/hypoventilation syndrome. 7. Recent diagnosis of lung cancer and status post left lower lobectomy via DaVinci procedure. 8. The patient has also been a lifelong smoker half pack a day. Claims that she has quit smoking now. PHYSICAL EXAMINATION: GENERAL: A 55-year-old female, moderately obese with a round face, is sitting up in the recliner, on oxygen 2 L/minute, and does not show any signs of respiratory distress at this time. HEENT: Oropharynx is crowded, but there is no acute infection. NECK: Short and obese. Trachea in midline. No lymphadenopathy. CHEST: Scars over the left lower chest from recent chest surgery. The chest wall is sensitive to touch. Percussion note is not perceptible. Breath sounds are distant. Inspiratory crackles are heard over the left lower lobe. CARDIAC: Sounds are distant. Rhythm regular. No murmurs. ABDOMEN: Moderately obese, but soft. EXTREMITIES: There is a trace of pitting edema. No cough tenderness. DIAGNOSTIC DATA: Chest CT scan, lung volumes are small. There is pleural effusion along the left thoracic wall without any gas. The mass in the left lower lobe is resolved secondary to recent surgery. There is mediastinal lymphadenopathy, but the size of the lymph node decreased from before. LABORATORY DATA: White cell count 19.7, hemoglobin 8.4, platelet count is 374. Arterial blood gas study; pH 7.29, pCO2 of 61, pO2 of 61. Compared to her previous studies, the pCO2 is basically stable at this time and seems to be at baseline. CLINICAL IMPRESSION: Chronic obstructive pulmonary disease, moderately severe, stable. Chronic respiratory failure with hypercapnia and hypoxemia, stable and at baseline. Recent left lower lobe lobectomy for adenocarcinoma of the left lower lobe. Lower GI bleeding. Other multiple medical problems relatively stable at this time. RECOMMENDATIONS: For pulmonary management, she is encouraged to do deep breathing exercises with incentive spirometry. Continue oxygen 2 L/minute to maintain O2 saturation just above 89%. The patient should use CPAP/BiPAP at night along with oxygen. I do not think she has acute exacerbation of COPD, so no need to keep her on steroids. Continue her regular respiratory medications as at home including Breo - 200 one inhalation daily and albuterol by updraft q.4 hours p.r.n. Thank you very much for asking me to see this patient. MD DELANEY Dawson/EDVIN / [id number]
[2020-09-10 20:05] LABS: Glucose, Whole Blood 164 mg/dL (60-115)
[2020-09-10] MEDS: oxyCODONE HCl Immed Release 5 MG TABLET PO (20:29)
[2020-09-10] MEDS: Divalproex Sodium ER 500 MG TAB.ER.24H 1000 MG PO (20:29)
[2020-09-10] MEDS: DULoxetine HCl 60 MG CAPSULE.DR PO (20:30)
[2020-09-10] MEDS: clonazePAM 0.5 MG TABLET PO (20:30)
[2020-09-10] MEDS: Ferrous Sulfate 324 MG TABLET.DR PO (20:30)
[2020-09-10] MEDS: Atorvastatin Calcium 20 MG TABLET PO (20:30)
[2020-09-10] MEDS: Amitriptyline HCl 25 MG TABLET PO (20:30)
[2020-09-10] MEDS: PEG 3350/Na Sulf,Bicarb,Cl/KCL 4,000 ML SOLN.RECON 4000 ML PO (20:37)
[2020-09-10] MEDS: ondansetron HCL 4 MG/2 ML VIAL IVPUSH (22:09)
[2020-09-11] VITALS (9 sets, daily range): BP systolic 109–148; BP diastolic 62–83; PULSE 74–87; RESP 15–19; TEMP 36.2–36.9; O2SAT 90–99; BMI 34.8
[2020-09-11 05:32] LABS: MANUAL DIFF FLAG NO
[2020-09-11] MEDS: oxyCODONE HCl Immed Release 5 MG TABLET PO ×2 (05:40→12:42)
[2020-09-11 05:41] LABS: Basophils Percent Auto 0.2 % (0-2); Eosinophils Percent Auto 0.1 % (0-4); Hematocrit 27.6 % (37-47); Imm Gran Abs Auto 0.14 X10*3/uL (0.00-0.03); Imm Gran Pct Auto 1.1 % (0.0-0.4); Lymphocytes Absolute Auto 2.2 X10*3/uL (1.2-4.9); Lymphocytes Percent Auto 16.4 % (20-40); Mean Corpuscular Hemoglobin 26.4 pg (27.0-33.0); Mean Corpuscular Volume 91.1 fL (80-98); Mean Platelet Volume 9.1 fL (9.4-12.3); Monocytes Percent Auto 7.9 % (2-11); Neutrophils Absolute Auto 9.7 X10*3/uL (2.0-8.3); Neutrophils Percent Auto 74.3 % (45-73); Platelet Count 433 X10*3/uL (160-400); Red Blood Count 3.03 X10*6/uL (4.20-5.50); Red Cell Distribution Width 15.9 % (11.0-16.0); White Blood Count 13.1 X10*3/uL (4.8-10.8)
[2020-09-11 06:11] LABS: Anion Gap 13 (12-20); Blood Urea Nitrogen 14 mg/dL (9-16); Calcium 7.7 mg/dL (8.4-10.2); Carbon Dioxide 31 mmol/L (22-29); Chloride 106 mmol/L (96-108); Creatinine Clr Calc Pharmacy 85.3; Estimated Glomerular Filt Rate > 60; Glucose Random 80 mg/dL (60-115); Potassium 3.8 mmol/L (3.3-5.1); Sodium 146 mmol/L (135-145)
[2020-09-11] MEDS: Pantoprazole Sodium 40 MG/10 ML VIAL IVPUSH (06:49)
[2020-09-11] MEDS: Fluticasone/Vilanterol 100/25 BLST.W.DEV 1 PUFF INHALE (07:19)
[2020-09-11] MEDS: Albuterol/Iprat 2.5/0.5MG 3 ML AMPUL.NEB INHALE ×3 (07:19→16:15)
[2020-09-11] MEDS: Fluticasone/Vilanterol 200/25 BLST.W.DEV 1 PUFF INHALE (07:46)
[2020-09-11] MEDS: Dextrose 5 % and 0.9 % NaCl 1,000 ML 50 ML IVCONT (07:58)
[2020-09-11] MEDS: Divalproex Sodium ER 500 MG TAB.ER.24H PO (07:59)
[2020-09-11] MEDS: clonazePAM 0.5 MG TABLET PO ×2 (07:59→15:00)
[2020-09-11] MEDS: 0.9 % Sodium Chloride Flush 3 ML SYRINGE IVFLUSH ×2 (07:59→15:25)
[2020-09-11] MEDS: amLODIPine Besylate 10 MG TABLET PO (07:59)
[2020-09-11] MEDS: Metoprolol Succinate ER 50 MG TAB.ER.24H PO (07:59)
[2020-09-11] MEDS: Ferrous Sulfate 324 MG TABLET.DR PO (07:59)
[2020-09-11] MEDS: ARIPiprazole 2 MG TABLET PO (07:59)
[2020-09-11] MEDS: Aspirin Enteric Coated 81 MG TABLET.DR PO (08:00)
--- NOTE | 2020-09-11 11:44 | MHC.CM.PN ---
per md pt likely to dc today plan remain is home no services
[2020-09-11] MEDS: Sodium Ferric Gluconat/Sucrose 125 MG in 0.9 % Sodium Chloride 100 ML 100 MG IV (14:53)
--- NOTE | 2020-09-11 15:16 | MHC.CM.PN ---
per md pt to be dcd today hvns notified via [employer]scripts
--- NOTE | 2020-09-11 15:58 | P.DS_ITS ---
DS: Providers Provider Date of Service: 09/11/20 Date of admission: 09/10/20 02:13 Primary care physician: Unknown Physician Consults: 09/10/20 04:00 Consult to Gastroenterology Routine Consulting Provider: Billy Ivy Reason for consultation: GI bleed Has provider been notified: No Consult to Pulmonology Routine Consulting Provider: Eduardo Cowan Reason for consultation: multiloculated pleural effusion Has provider been notified: No 09/10/20 11:49 Consult to Care Team Routine Comment: Reason for consultation: sad /depressed/crying DS: Diagnosis Discharge Diagnosis (1) GI bleed: Status: Acute (2) Colon cancer: Status: Acute DS: Medications Discharge Medications Home Medications: Home Medications Medication Instructions Recorded Confirmed amitriptyline 25 mg PO BEDTIME 04/21/20 09/10/20 amlodipine 10 mg PO DAILY 04/21/20 09/10/20 divalproex 500 mg PO DAILY 04/21/20 09/10/20 duloxetine 60 mg PO BEDTIME 04/21/20 09/10/20 omeprazole 20 mg PO BID 04/21/20 09/10/20 Breo Ellipta 1 inh INHALATION DAILY 05/26/20 09/10/20 Incruse Ellipta 1 inh INHALATION DAILY 05/26/20 09/10/20 aripiprazole 2 mg PO DAILY 05/26/20 09/10/20 clonazepam 0.5 mg PO TID 05/26/20 09/10/20 hydralazine 50 mg PO TID 05/26/20 09/10/20 metoprolol succinate 50 mg PO DAILY 05/26/20 09/10/20 oxycodone-acetaminophen 1 tab PO 5XD PRN 05/26/20 09/10/20 atorvastatin 20 mg PO BEDTIME 07/03/20 09/10/20 aspirin 81 mg PO DAILY 09/10/20 09/10/20 divalproex 1,000 mg PO BEDTIME 09/10/20 09/10/20 ferrous sulfate 1 tab PO BID 09/10/20 09/10/20 Previous Rx's Medication Instructions Recorded albuterol sulfate 2 puff INHALATION Q4-6H PRN #8.5 g 04/30/20 cefuroxime axetil 250 mg PO Q12H #10 tab 09/11/20 DS: Summary Hospital Course Hospital Course: 55-year-old female with past medical history of acute on chronic respiratory failure on baseline 2 L of oxygen, CHF, bipolar disorder, CAD, COPD, depression, fibromyalgia, HLD, HTN, hypoventilation associated with obesity, lung cancer with recent lobectomy, presents to the hospital with complaints of bloody bowel movements. Patient is extremely lethargic during my exam, unclear why, reports that she uses Percocet at home but did not use any prior to come to the hospital. She is arousable but falls right back asleep. Therefore history is obtained mostly from ED physician as well as nurse at bedside will obtain history from patient when she 1st arrived. It appears that patient had 2-3 episodes of bloody bowel movements bright red blood per rectum, with no abdominal pain nausea or vomiting. She has also complained of urinary symptoms including dysuria, as well as frequency. When I woke her long enough to ask any questions she reported shortness of breath with cough but unclear for what amount of time. I am unable to obtain rest of review of system is patient too lethargic to stay awake long enough. To the ED hemodynamically stable with vitals significant for a temp of 98.8?, heart rate of 87, respiratory rate of 16, satting 93% on nasal cannula. Was reported that she was high 80s on 2 L of baseline oxygen. Labs are significant for WBC count of 19.7, hemoglobin of 8.4 that dropped from 9.7 on 08/05, MCV of 88.8, platelet count of 374, PT of 11.5, INR of 1.0, BUN of 18, creatinine of 1.08 with a baseline around 0.8, albumin 3.1, UA that is positive for nitrites, leukocyte Estrace, WBC, COVID-19 negative, chest CT demonstrates multiloculated left pleural effusion with no air within these fluid collection to suggest empyema. Previously demonstrated left lower lobe mass is no longer visible. Mediastinal lymphadenopathy has decreased in size since July of 2020. Medical records are pending from [facility] as patient reported that she was discharged few days ago from [facility] after undergoing lobectomy for her lung cancer. Past medical history as below per EMR, unable to confirm with patient. Hospital Course problem wolff section: Patient came to the hospital because of also intermittent blood with bowels: Patient was started on PPIs and GI was consulted: Patient is little anxious to get the procedure at currently for colonoscopy, her her H&H is stable without transfusion near the range of 8, she did not had any new bowel movement with blood here. Discussed with GI feel plan outpatient colonoscopy in a week or so. Will hold up aspirin for now, patient was told to avoid any blood thinners or Nsaid's medications which can cause bleeding. In addition patient was given IV iron. Patient will continue her home omeprazole. Initially also was thought to have acute on chronic hypoxemic respiratory failure: Received therapy including COPD wolff steroids as well as nebs: Patient improved and now and baseline seen by Pulmonary-avoid steroids for now since patient has question of GI bleed and patient is at baseline respiratory wolff now. Patient was told to avoid opioids . UTI: Blood culture seems negative, urine culture are growing Gram-negative rods, will switch her to p.o. Ceftin since she was getting ceftriaxone, pending urine final cultures. But patient is clinically improving -no his with his is still urinary complaints now and no fever or chills or any new symptoms. Above management discussed with patient and patient's in detail length they both understand and in agreement with above plan. Patient will monitor CBC outpatient with PCP and GI further management outpatient as per PCP and GI doctor ildefonso. Further use of aspirin as per GI after colonoscopy. Above management discussed with the patient and her in detail length both understand and in agreement with the above plan, time spent 50 minutes and 50% time spent on counseling. Significant findings: As above. Procedures performed: None. Treatment and response: As above. Complications: None. Time Spent with Patient Time attestation: Total time spent providing and/or coordinating discharge services: Discharge coordination time: Greater than 30 minutes Physical Exam Vital Signs: Vital Signs: Last Vital Signs Temp 98.4 F 09/11/20 15:15 Pulse 74 09/11/20 15:15 Resp 18 09/11/20 15:15 BP 124/62 09/11/20 15:15 Pulse Ox 96 09/11/20 15:15 Body Mass Index 34.8 Physical exam: Constitutional: Not in acute distress, slightly anxious. heent: eye: anicteric , no discharge. Cvs: rrr, [id number] , no murmur res: Fair air entry , no rhonchi or wheezing. abd: no rebound or guarding ,nt, bs present. ext pulses present , no cyanosis neuro: axo3 , nonfocal. DS: Data Data Completed and Pending Completed studies during hospitalization [Text1]: Procedures Assistance with Respiratory Ventilation, Less than 24 Consecutive Hours, Continuous Positive Airway Pressure (04/21/20) Excision of Left Lower Lung Lobe, Percutaneous Approach, Diagnostic (07/03/20) Labs on day of discharge: Laboratory Results - last 24 hr 09/10/20 09/11/20 09/11/20 19:50 04:56 04:56 WBC 13.1 H RBC 3.03 L Hgb 8.0 L Hct 27.6 L MCV 91.1 MCH 26.4 L MCHC 29.0 L RDW 15.9 Plt Count 433 H MPV 9.1 L Immature Gran % (Auto) 1.1 H Neut % (Auto) 74.3 H Lymph % (Auto) 16.4 L [place] % (Auto) 7.9 Eos % (Auto) 0.1 Baso % (Auto) 0.2 Lymph # (Auto) 2.2 [place] # (Auto) 1.0 Eos # (Auto) 0.0 Baso # (Auto) 0.0 Abs Immat Gran (auto) 0.14 H Absolute Neuts (auto) 9.7 H Absolute Nucleated RBC 0.000 Nucleated RBC % (auto) 0.0 Sodium 146 H Potassium 3.8 Chloride 106 Carbon Dioxide 31 H Anion Gap 13 BUN 14 Creatinine 0.81 Estim Creat Clear Calc 85.3 Estimated GFR > 60 POC Glucose 164 H Random Glucose 80 Calcium 7.7 L D Preliminary micro results at discharge 09/10/20 00:00 Urine Culture - Preliminary Urine Catheterized - Straight Catheter Gram negative aditi 09/09/20 22:32 Blood Culture - Preliminary Blood - Venous No growth after 24 hours. 09/09/20 22:31 Blood Culture - Preliminary Blood - Venous No growth after 24 hours. Discharge Plan Discharge Patient Disposition: Home Health Service Referrals: [facility] [Outside] Physician,Unknown [Primary Care Provider] - Discharge Medications: New cefuroxime axetil 250 mg tablet 250 mg PO Q12H Qty: 10 RF: 0 Continued amitriptyline 25 mg tablet 25 mg PO BEDTIME RF: 0 amlodipine 10 mg tablet 10 mg PO DAILY RF: 0 divalproex 500 mg tablet extended release 24 hr 500 mg PO DAILY RF: 0 omeprazole 20 mg capsule,delayed release(DR/EC) 20 mg PO BID RF: 0 duloxetine 60 mg capsule,delayed release(DR/EC) 60 mg PO BEDTIME RF: 0 albuterol sulfate 90 mcg/actuation HFA aerosol inhaler 2 puff inhalation Q4-6H PRN (Reason: shortness of breath or wheezing) Qty: 8.5 RF: 0 metoprolol succinate 50 mg Tablet Extended Release 24 Hr 50 mg PO DAILY RF: 0 Breo Ellipta 100-25 mcg/dose Blister With Device 1 inh INHALATION DAILY RF: 0 clonazepam 0.5 mg tablet 0.5 mg PO TID RF: 0 Incruse Ellipta 62.5 mcg/actuation Blister With Device 1 inh INHALATION DAILY RF: 0 hydralazine 50 mg Tablet 50 mg PO TID RF: 0 aripiprazole 2 mg Tablet 2 mg PO DAILY RF: 0 atorvastatin 20 mg Tablet 20 mg PO BEDTIME RF: 0 ferrous sulfate 325 mg (65 mg iron) tablet 1 tab PO BID RF: 0 divalproex 500 mg tablet extended release 24 hr 1,000 mg PO BEDTIME RF: 0 Held oxycodone-acetaminophen 10-325 mg tablet 1 tab PO 5XD PRN (Reason: Pain (Scale Score 4-6)) RF: 0 aspirin 81 mg tablet,delayed release (DR/EC) 81 mg PO DAILY RF: 0 Hold Instructions: Resume on 09/15/20. hold until sees Gi for colonoscopy Discharge Orders: Discharge Order (Routine); Ordered 09/11/20 Ordered By: Alexandra Kay Diet: advance to usual diet and low fat, low cholesterol Activity on Discharge: As tolerated Stand Alone Forms: Patient Portal Discharge page Other Ambulatory Orders: Basic Metabolic Panel Fasting (Routine) Timeframe: 20200914 Facility: [facility] - Location: Laboratory Ordered By: Alexandra Kay Complete Blood Count no Diff (Routine) Timeframe: 20200914 Facility: [facility] - Location: Laboratory Ordered By: Alexandra Kay Care Plan Goals: Patient came to the hospital because of also intermittent blood with bowels: Patient was started on PPIs and GI was consulted: Patient is little anxious to get the procedure at currently for colonoscopy, her her H&H is stable without transfusion near the range of 8, she did not had any new bowel movement with blood here. Discussed with GI feel plan outpatient colonoscopy in a week or so. Will hold up aspirin for now, patient was told to avoid any blood thinners or Nsaid's medications which can cause bleeding. In addition patient was given IV iron. Patient will continue her home omeprazole. Initially also was thought to have acute on chronic hypoxemic respiratory failure: Received therapy including COPD wolff steroids as well as nebs: Patient improved and now and baseline seen by Pulmonary-avoid steroids for now since patient has question of GI bleed and patient is at baseline respiratory wolff now. Patient was told to avoid opioids . UTI: Blood culture seems negative, urine culture are growing Gram-negative rods, will switch her to p.o. Ceftin since she was getting ceftriaxone, pending urine final cultures. But patient is clinically improving -no his with his is still urinary complaints now and no fever or chills or any new symptoms. Mild boderline hyponatremia: Due to probable mild dehydration, Advised to p.o. hydration and recheck BMP with PCP in few days. Above management discussed with patient and patient's in detail length they both understand and in agreement with above plan. Patient will monitor CBC outpatient with PCP and GI further management outpatient as per PCP and GI doctor ildefonso. Further use of aspirin as per GI after colonoscopy. Health Concerns: As above. Plan of Treatment: As above. Assessment: As above.
== END 2020-09-11 17:30 | disposition home health service (06) | DRG 377 ==
LOC: HO.ED 09-10 01:35 → HO.IMC 09-10 02:30
PROVIDERS: Admitting Provider Internal Medicine; Emergency Provider Student in an Organized Health Care Education/Training Program; Visit Provider Internal Medicine
DX: K92.2 Gastrointestinal hemorrhage, unspecified (principal); J96.21 Acute and chronic respiratory failure with hypoxia; N39.0 Urinary tract infection, site not specified; C34.32 Malignant neoplasm of lower lobe, left bronchus or lung; E66.2 Morbid (severe) obesity with alveolar hypoventilation; C18.7 Malignant neoplasm of sigmoid colon; I10 Essential (primary) hypertension; I25.10 Atherosclerotic heart disease of native coronary artery without angina pectoris; Z68.34 Body mass index [BMI] 34.0-34.9, adult; F31.9 Bipolar disorder, unspecified; Z99.81 Dependence on supplemental oxygen; Z87.891 Personal history of nicotine dependence; Z20.822 Contact with and (suspected) exposure to COVID-19; Z88.0 Allergy status to penicillin; Z79.82 Long term (current) use of aspirin; Z79.899 Other long term (current) drug therapy
CPT/HCPCS: 36415; 36600; 71260; 74177; 80048; 80053; 81001; 81003; 82272; 82947; 83605; 83880; 85025; 85610; 85730; 86850; 86900; 87040; 87086; 87088; 87186; 87635; 94640; 94660; 96365; 96368; 99285; J0696; J2405; J2916; J2920; J3370

== ENCOUNTER 2020-09-23 02:30 | Emergency (ER) | payer MEDICAID, SELFPAY ==
[2020-09-23] VITALS (9 sets, daily range): BP systolic 108–130; BP diastolic 57–76; PULSE 72–86; RESP 16–89; TEMP 36.6–36.9; O2SAT 91–99; BMI 36.7
--- NOTE | ~2020-09-23 | CT_ITS ---
EXAMINATION: CT ANGIOGRAM OF THE CHEST WITH AND WITHOUT CONTRAST (CT PULMONARY ANGIOGRAM FOR PE) CLINICAL INFORMATION: Reason for Exam CP, SOB, lung/colon CA, LL lobectomy, rule out PE COMPARISON: September 09, 2020 and July 17, 2020 TECHNIQUE: Prior to contrast administration, noncontrast localization images were obtained. Subsequently, multidetector volumetric imaging was performed from the thoracic inlet to below the diaphragms following the administration of 65 mL Omnipaque 350 intravenous contrast. No contrast reaction reported Sagittal, coronal, and MIP oblique sagittal reformatted images were obtained on the CT workstation, uploaded to PACS, and reviewed. This CT examination was performed using dose optimization techniques as appropriate, variously including the following: *Automated exposure control *Adjustment of mA and/or kV according to patient size (this includes techniques or standardized protocols for targeted exams where dose is matched to indication/reason for exam; i.e. extremities or head) *Use of iterative reconstruction technique Total exam dose-length product 497 mGy-cm FINDINGS: QUALITY OF STUDY/CONTRAST BOLUS: Satisfactory. PULMONARY ARTERIES: No central or segmental pulmonary emboli. THORACIC AORTA: No aneurysm or dissection. There is prominent calcified plaque at the origin of the arch vessels. LUNG: Patient status post left lower lobectomy. There is posterior lingula and left upper lobe reticulation with bronchial wall thickening with the appearance of interstitial lung disease and some degree of interstitial fibrosis which may be post radiation in nature. Some superimposed pneumonia cannot be excluded. There is some left lower lobe airspace disease likely related to dependent atelectasis. There are a few scattered sub-4 mm densities present. There are changes of centrilobular emphysema. PLEURA: There is a multi loculated left pleural effusion with pleural thickening. This is mildly more prominent than on prior study. MEDIASTINUM: Normal heart size. There is a small pericardial effusion which appears to slightly increased in size. Coronary artery calcification is present. No evidence of septal bowing or right heart strain. There is a 1.1 cm right paratracheal lymph node. There are some prominent but not enlarged left prevascular space and aortopulmonary window lymph nodes. There is again noted to be subcarinal lymphadenopathy measuring approximately 1.2 x 4.5 x 3.1 cm in size. There is left infrahilar soft tissue density likely related to lymphadenopathy. There are some soft tissue densities about the right hilum likely representing lymphadenopathy. These findings are generally unchanged. Visualized portions of the thyroid unremarkable. CHEST WALL/AXILLA: No axillary or internal mammary lymphadenopathy. OSSEOUS STRUCTURES: There are nondisplaced fractures involving the left lateral sixth seventh and eighth ribs there is some soft tissue prominence adjacent to the fractures. These were present on prior examination of September 09, 2020. No suspicious destructive bony lesions identified. There is multilevel degenerative disc disease in the thoracic spine. UPPER ABDOMEN: Unremarkable. No reflux of contrast into the hepatic veins to suggest elevated right heart pressures. CT/CT angio chest PE protocol IMPRESSION: No evidence of acute pulmonary artery emboli. No thoracic aortic aneurysm or dissection. Status post left lower lobectomy with associated postsurgical change in lymphadenopathy as described. Slight increase in size of pericardial and left loculated pleural effusion. No significant change in appearance of left sixth seventh and eighth rib fractures. Changes of centrilobular emphysema. VTE: negative
--- NOTE | 2020-09-23 04:20 | ED_ITS ---
HPI - General Adult General Chief complaint: Upper Respiratory Symptoms Stated complaint: SOB,CP Time Seen by Provider: 09/23/20 04:02 Source: patient Mode of arrival: EMS Limitations: no limitations History of Present Illness HPI narrative: 55-year-old female who presents emergency department for evaluation of shortness of breath chest pain. Patient states that she has lung cancer and colon cancer. The patient had a left lower lobectomy done at [facility] on 09/01/2020. She states that since the procedure she has felt short of breath however this evening at 11:00 p.m. while she was watching television h er shortness of breath got significantly worse. She then developed left-sided chest pain which she describes as a pressure-like sensation. The pressure is constant and is worse with breathing and coughing. The pressure is 5/10 at its worst. She has also developed increased dyspnea on exertion since 22/08 100 hours. She states that she has had a cough for several days which is nonproductive. She denied fever or chills. The patient had a COVID-19 infection on April 24, 2020. She states she had her 1st Moderna COVID-19 vaccination on 09/02/2019. Related Data Home Medications Medication Instructions Recorded Confirmed amitriptyline 25 mg PO BEDTIME 04/21/20 09/10/20 amlodipine 10 mg PO DAILY 04/21/20 09/10/20 divalproex 500 mg PO DAILY 04/21/20 09/10/20 duloxetine 60 mg PO BEDTIME 04/21/20 09/10/20 omeprazole 20 mg PO BID 04/21/20 09/10/20 Breo Ellipta 1 inh INHALATION DAILY 05/26/20 09/10/20 Incruse Ellipta 1 inh INHALATION DAILY 05/26/20 09/10/20 aripiprazole 2 mg PO DAILY 05/26/20 09/10/20 clonazepam 0.5 mg PO TID 05/26/20 09/10/20 hydralazine 50 mg PO TID 05/26/20 09/10/20 metoprolol succinate 50 mg PO DAILY 05/26/20 09/10/20 oxycodone-acetaminophen 1 tab PO 5XD PRN 05/26/20 09/10/20 atorvastatin 20 mg PO BEDTIME 07/03/20 09/10/20 divalproex 1,000 mg PO BEDTIME 09/10/20 09/15/20 ferrous sulfate 1 tab PO BID 09/10/20 09/15/20 Previous Rx's Medication Instructions Recorded albuterol sulfate 2 puff INHALATION Q4-6H PRN #8.5 g 04/30/20 cefuroxime axetil 250 mg PO Q12H #10 tab 09/11/20 ondansetron HCl [Zofran] 4 mg PO Q6H #30 tab 09/16/20 Allergies Allergy/AdvReac Type Severity Reaction Status Date / Time Penicillins Allergy Mild RASH Verified 09/10/20 03:28 venlafaxine [From Effexor] Allergy Mild RASH Verified 09/10/20 03:28 cyclobenzaprine Allergy Unknown UNKNOWN Verified 09/10/20 03:28 [Cyclobenzaprine] fentanyl [FENTANYL] Allergy Unknown HALLUCINATI Verified 09/10/20 03:28 ONS topiramate [From Topamax] Allergy Unknown UNKNOWN Verified 09/10/20 03:28 Review of Systems Review of Systems: Yes all other systems are reviewed and are negative [facility] Past Medical History Medical History Acute and chronic respiratory failure Acute on chronic diastolic CHF (congestive heart failure) Back pain with history of spinal surgery Bipolar 1 disorder Bipolar disorder CAD (coronary artery disease) Chronic back pain COPD (chronic obstructive pulmonary disease) COPD (chronic obstructive pulmonary disease) Depression Fibromyalgia GERD (gastroesophageal reflux disease) High cholesterol HTN (hypertension) Hypoventilation associated with obesity Lung cancer Obesity Obesity hypoventilation syndrome IVY (obstructive sleep apnea) PTSD (post-traumatic stress disorder) Renal failure Respiratory failure with hypoxia and hypercapnia Restless legs syndrome (RLS) Rotator cuff strain Sleep disorder Smoker Surgical History H/O colonoscopy H/O: hysterectomy History of back surgery History of bunionectomy History of esophagogastroduodenoscopy (EGD) Hx of appendectomy Hx of cholecystectomy Hx of exploratory laparotomy Family History Family History Maternal Aunt Breast cancer Stroke COPD (chronic obstructive pulmonary disease) Maternal Aunt Breast cancer COPD (chronic obstructive pulmonary disease) Mother Uterine cancer COPD (chronic obstructive pulmonary disease) HTN (hypertension) Maternal Uncle Stroke Paternal Grandmother Heart attack Sister Diabetes IBS (irritable bowel syndrome) Son HTN (hypertension) Daughter HTN (hypertension) Father HTN (hypertension) Brother Heart disease Social History Social History Household Members: Spouse Housing: Apartment Alcohol intake: former Smoking Status: Never smoker Packs Per Day: 5 Cigarettes Per Day: 100.0 Years Smoked: 40 Second Hand Smoke Exposure: Yes Advance Directives: No Advance Directives Information Provided: No service: No Current occupational status: unemployed and disabled Physical Exam Vital Signs: Vital Signs: Last Vital Signs Temp 98.5 F 09/23/20 02:44 Pulse 86 09/23/20 06:07 Resp 16 09/23/20 06:07 BP 112/71 09/23/20 06:00 Pulse Ox 92 09/23/20 06:00 Body Mass Index 36.7 Const: General: cooperative and healthy appearing Nutritional Appearance: overweight Orientation/consciousness: oriented to person and oriented to place Limitations: no limitations HENMT: Head: Yes normal to inspection, Yes normocephalic and Yes atraumatic Ears: external ears normal General nose exam: Normal external nose present Face and sinus: Yes normal facial exam Mouth: Normal oral and palatal mucosa present Throat: Yes posterior oropharynx normal Eyes: Periorbital: periorbital findings normal Eyelids: Yes eyelids normal Conjunctivae: conjunctivae normal Sclerae: sclerae normal Corneas: corneas normal Pupils: Equal, round and reactive pupils present Direct Ophthalmoscopy: normal light reflex Neck: Neck: Yes full ROM, Yes no lymphadenopathy, Yes no meningeal signs, Yes trachea midline and Yes supple Chest: Chest palpation & inspection: normal inspection of the chest and tenderness (Moderate left anterior chest) Resp: Effort & Inspection: normal respiratory effort and able to speak in complete sentences Auscultation: rales (Left base), rhonchi (Left base) and no wheezes Cardio: Rate: regular rate Rhythm: regular rhythm Heart sounds: S1 normal heart sound present, S2 normal heart sound present and no murmurs GI: Inspection: Yes normal to inspection Palpation (GI): Soft to palpation, nontender, no guarding, not rigid and No hepatosplenomegaly present : General: Yes no CVA tenderness Back/Spine/Pelvis: Back: no CVA tenderness Cervical Spine: normal cervical lordosis Thoracic/Lumbar Spine: thoracic and lumbar spine normal to inspection Skin: Lesions: no lesions Rashes: no rashes Wounds: no wounds Neuro: General: oriented to person, oriented to place and no meningeal signs Cranial nerves: Yes CN's II-XII intact bilaterally and Yes Equal, round and reactive pupils present Cognition (Neuro): normal cognition Motor exam (neuro): 5/5 motor strength present throughout Extrem: General: Yes normal to inspection and Yes full ROM Psych: Appearance: well kempt Mental Status: mental status grossly normal Speech and movement: Normal speech and movement present Affect: normal affect Attitude: cooperative Thought process: Normal thought process present Thought content: Normal thought content present Course Course Course Narrative: 55-year-old female with a history of COPD on 2 L of oxygen via nasal cannula, atrial fibrillation, obstructive sleep apnea, colon cancer lung cancer status post left lower lobectomy at [facility] on 09/01/2020 who presents emergency department for evaluation shortness of breath since the surgery with increased shortness of breath and left-sided chest pain which began at 11:00 p.m. while she was watching TV. Physical examination revealed that she was afebrile, normal blood pressure, O2 saturation on 2 L of nasal cannula was 99%. The patient does have left-sided chest wall tenderness and left-sided rales and rhonchi. I ordered a CBC, CMP, lactic acid, blood cultures x2, COVID- 19 swab. I also ordered a CT angiogram pulmonary embolism protocol to rule out pulmonary embolism, pneumothorax, pneumonia. The patient was ordered to get oxycodone 10 mg orally for her pain. 0700: The patient's laboratory evaluation [place] [address], anemia with an H&H of 8.2 and 28.8, this is chronic, the patient an elevated bicarb of 31. LFTs were abnormal with an AST, ALT and alkaline phosphatase of 71, 32 in 126. COVID-19 test was negative. Troponin was elevated at 135. Repeat 3 hour troponin will be done at 7:[address] pulmonary angiogram PE protocol is pending. The patient's care was turned over to my colleague, Dr. Rose Medical Decision Making Lab Data Result diagrams: 09/23/20 04:22 09/23/20 05:22 Labs: Lab Results 09/23/20 09/23/20 09/23/20 Range/Units 04:22 04:22 04:22 WBC 13.7 H (4.8-10.8) X10*3/uL RBC 3.13 L (4.20-5.50) X10*6/uL Hgb 8.2 L (12.0-16.0) g/dl Hct 28.8 L (37-47) % MCV 92.0 (80-98) fL MCH 26.2 L (27.0-33.0) pg MCHC 28.5 L (31.0-35.0) g/dl RDW 18.1 H (11.0-16.0) % Plt Count 443 H (160-400) X10*3/uL MPV 9.2 L (9.4-12.3) fL Immature Gran % (Auto) 0.6 H (0.0-0.4) % Neut % (Auto) 69.3 (45-73) % Lymph % (Auto) 22.1 (20-40) % [place] % (Auto) 7.3 (2-11) % Eos % (Auto) 0.4 (0-4) % Baso % (Auto) 0.3 (0-2) % Lymph # (Auto) 3.0 (1.2-4.9) X10*3/uL [place] # (Auto) 1.0 (0.1-1.2) X10*3/uL Eos # (Auto) 0.1 (0.0-0.4) X10*3/uL Baso # (Auto) 0.0 (0.0-0.2) X10*3/uL Abs Immat Gran (auto) 0.08 H (0.00-0.03) X10*3/uL Absolute Neuts (auto) 9.5 H (2.0-8.3) X10*3/uL Absolute Nucleated RBC 0.070 H (0.0-0.012) X10*3/uL Nucleated RBC % (auto) 0.5 H (0.0-0.2) /100WBC Sodium (135-145) mmol/L Potassium (3.3-5.1) mmol/L Chloride (96-108) mmol/L Carbon Dioxide (22-29) mmol/L Anion Gap (12-20) BUN (9-16) mg/dL Creatinine (0.5-1.4) mg/dL Estim Creat Clear Calc Estimated GFR Random Glucose (60-115) mg/dL Lactic Acid 1.0 (0.5-2.0) mmol/L Calcium (8.4-10.2) mg/dL Total Bilirubin (0.0-1.0) mg/dL AST (5-31) U/L ALT (0-31) U/L Alkaline Phosphatase (39-117) U/L Troponin I High Sens 135.0 H D (<3.5-17.0) ng/L Total Protein (6.5-8.0) g/dL Albumin (3.5-5.0) g/dL Urine Color Urine Appearance Urine pH (5.0-8.0) Ur Specific [place] (1.005-1.025) Urine Protein (NEG-TRACE) MG/DL Urine Glucose (UA) (NEG) MG/DL Urine Ketones (NEG) MG/DL Urine Blood (NEG) Urine Nitrite (NEG) Ur Leukocyte Esterase (NEG) COVID-19 (ANA) (Negative) COVID-19 Clin Com 09/23/20 09/23/20 09/23/20 Range/Units 04:22 05:22 05:22 WBC (4.8-10.8) X10*3/uL RBC (4.20-5.50) X10*6/uL Hgb (12.0-16.0) g/dl Hct (37-47) % MCV (80-98) fL MCH (27.0-33.0) pg MCHC (31.0-35.0) g/dl RDW (11.0-16.0) % Plt Count (160-400) X10*3/uL MPV (9.4-12.3) fL Immature Gran % (Auto) (0.0-0.4) % Neut % (Auto) (45-73) % Lymph % (Auto) (20-40) % [place] % (Auto) (2-11) % Eos % (Auto) (0-4) % Baso % (Auto) (0-2) % Lymph # (Auto) (1.2-4.9) X10*3/uL [place] # (Auto) (0.1-1.2) X10*3/uL Eos # (Auto) (0.0-0.4) X10*3/uL Baso # (Auto) (0.0-0.2) X10*3/uL Abs Immat Gran (auto) (0.00-0.03) X10*3/uL Absolute Neuts (auto) (2.0-8.3) X10*3/uL Absolute Nucleated RBC (0.0-0.012) X10*3/uL Nucleated RBC % (auto) (0.0-0.2) /100WBC Sodium 138 (135-145) mmol/L Potassium 3.4 (3.3-5.1) mmol/L Chloride 95 L (96-108) mmol/L Carbon Dioxide 31 H (22-29) mmol/L Anion Gap 15 (12-20) BUN 16 (9-16) mg/dL Creatinine 1.31 (0.5-1.4) mg/dL Estim Creat Clear Calc 51.6 Estimated GFR 42 Random Glucose 94 (60-115) mg/dL Lactic Acid (0.5-2.0) mmol/L Calcium 7.6 L (8.4-10.2) mg/dL Total Bilirubin 0.4 (0.0-1.0) mg/dL AST 71 H (5-31) U/L ALT 32 H (0-31) U/L Alkaline Phosphatase 126 H (39-117) U/L Troponin I High Sens (<3.5-17.0) ng/L Total Protein 6.4 L (6.5-8.0) g/dL Albumin 3.5 (3.5-5.0) g/dL Urine Color YELLOW Urine Appearance CLEAR Urine pH 6.5 (5.0-8.0) Ur Specific [place] 1.010 (1.005-1.025) Urine Protein TRACE (NEG-TRACE) MG/DL Urine Glucose (UA) NEG (NEG) MG/DL Urine Ketones NEG (NEG) MG/DL Urine Blood NEG (NEG) Urine Nitrite NEG (NEG) Ur Leukocyte Esterase NEG (NEG) COVID-19 (ANA) Negative (Negative) COVID-19 Clin Com See Note ECG Data Interpretation: 0500: Normal sinus rhythm with a rate of 82, normal [place] interval, prolonged QRS of 102 milliseconds, normal QTC interval, very small Q- waves in leads 2, 3 and AVF, no T-wave abnormalities, no ST segment abnormalities. Discharge Plan Discharge Prescriptions: No Action amitriptyline 25 mg tablet 25 mg PO BEDTIME RF: 0 amlodipine 10 mg tablet 10 mg PO DAILY RF: 0 divalproex 500 mg tablet extended release 24 hr 500 mg PO DAILY RF: 0 omeprazole 20 mg capsule,delayed release(DR/EC) 20 mg PO BID RF: 0 duloxetine 60 mg capsule,delayed release(DR/EC) 60 mg PO BEDTIME RF: 0 albuterol sulfate 90 mcg/actuation HFA aerosol inhaler 2 puff inhalation Q4-6H PRN (Reason: shortness of breath or wheezing) Qty: 8.5 RF: 0 metoprolol succinate 50 mg Tablet Extended Release 24 Hr 50 mg PO DAILY RF: 0 Breo Ellipta 100-25 mcg/dose Blister With Device 1 inh INHALATION DAILY RF: 0 clonazepam 0.5 mg tablet 0.5 mg PO TID RF: 0 oxycodone-acetaminophen 10-325 mg tablet 1 tab PO 5XD PRN (Reason: Pain (Scale Score 4-6)) RF: 0 Incruse Ellipta 62.5 mcg/actuation Blister With Device 1 inh INHALATION DAILY RF: 0 hydralazine 50 mg Tablet 50 mg PO TID RF: 0 aripiprazole 2 mg Tablet 2 mg PO DAILY RF: 0 ondansetron HCl [Zofran] 4 mg Tablet 4 mg PO Q6H Qty: 30 RF: 3 atorvastatin 20 mg Tablet 20 mg PO BEDTIME RF: 0 ferrous sulfate 325 mg (65 mg iron) tablet 1 tab PO BID RF: 0 divalproex 500 mg tablet extended release 24 hr 1,000 mg PO BEDTIME RF: 0 cefuroxime axetil 250 mg tablet 250 mg PO Q12H Qty: 10 RF: 0
[2020-09-23] MEDS: oxyCODONE HCl Immed Release 5 MG TABLET 10 MG PO (04:33)
[2020-09-23 04:35] LABS: MANUAL DIFF FLAG NO
[2020-09-23 04:36] LABS: Basophils Percent Auto 0.3 % (0-2); Eosinophils Absolute Auto 0.1 X10*3/uL (0.0-0.4); Eosinophils Percent Auto 0.4 % (0-4); Hematocrit 28.8 % (37-47); Hemoglobin 8.2 g/dl (12.0-16.0); Imm Gran Abs Auto 0.08 X10*3/uL (0.00-0.03); Imm Gran Pct Auto 0.6 % (0.0-0.4); Lymphocytes Percent Auto 22.1 % (20-40); Mean Corpuscular HGB Conc 28.5 g/dl (31.0-35.0); Mean Corpuscular Hemoglobin 26.2 pg (27.0-33.0); Mean Platelet Volume 9.2 fL (9.4-12.3); Monocytes Percent Auto 7.3 % (2-11); NRBC Pct Auto 0.5 /100WBC (0.0-0.2); Neutrophils Absolute Auto 9.5 X10*3/uL (2.0-8.3); Neutrophils Percent Auto 69.3 % (45-73); Platelet Count 443 X10*3/uL (160-400); Red Blood Count 3.13 X10*6/uL (4.20-5.50); Red Cell Distribution Width 18.1 % (11.0-16.0); White Blood Count 13.7 X10*3/uL (4.8-10.8)
[2020-09-23 05:04] LABS: COVID-19 Test Negative (Negative); IDNOW Serial# 9DD0AD1C
[2020-09-23 05:49] LABS: Glucose Urine UA NEG (NEG); Leukocyte Esterase Urine NEG (NEG); Nitrite Urine NEG (NEG); PH 6.5 (5.0-8.0); Urine Blood NEG (NEG); Urine Ketones NEG (NEG); Urine Protein TRACE MG/DL (NEG-TRACE)
[2020-09-23 05:52] LABS: Appearance Urine CLEAR; Color Urine YELLOW
[2020-09-23] MEDS: Morphine Sulfate 4 MG/ML CARTRIDGE IVPUSH (05:54)
[2020-09-23 06:14] LABS: Alanine Aminotransferase 32 U/L (0-31); Albumin Level 3.5 g/dL (3.5-5.0); Alkaline Phosphatase 126 U/L (39-117); Anion Gap 15 (12-20); Aspartate Amino Transferase 71 U/L (5-31); Bilirubin Total 0.4 mg/dL (0.0-1.0); Blood Urea Nitrogen 16 mg/dL (9-16); Calcium 7.6 mg/dL (8.4-10.2); Carbon Dioxide 31 mmol/L (22-29); Chloride 95 mmol/L (96-108); Creatinine Clr Calc Pharmacy 51.6; Estimated Glomerular Filt Rate 42; Glucose Random 94 mg/dL (60-115); Potassium 3.4 mmol/L (3.3-5.1); Sodium 138 mmol/L (135-145); Total Protein 6.4 g/dL (6.5-8.0)
[2020-09-23] MEDS: LORazepam 1 MG TABLET PO (07:23)
[2020-09-23] MEDS: iohexoL 350 MG/ML 100 ML INFUS..BTL 65 ML IV (07:55)
--- NOTE | 2020-09-23 08:05 | ECG_ITS ---
Test Reason : CHEST PAIN Blood Pressure : / mmHG Vent. Rate : 082 BPM Atrial Rate : 082 BPM P-R Int : 148 ms QRS Dur : 102 ms QT Int : 374 ms P-R-T Axes : 065 059 034 degrees QTc Int : 436 ms Normal sinus rhythm Possible Left atrial enlargement Nonspecific T wave abnormality Abnormal ECG When compared with ECG of 17-JUL-2020 16:26, T wave inversion now evident in Anterior leads Referred By: Abundio Erickson Electronically Signed By:Soto Jaquez
[2020-09-23 08:48] LABS: Troponin-I High Sensitivity 113.6 ng/L (<3.5-17.0)
== END 2020-09-23 12:26 | disposition home or self-care (01) ==
PROVIDERS: Emergency Provider Emergency Medicine Emergency Medical Services
DX: J44.9 Chronic obstructive pulmonary disease, unspecified (principal); R07.9 Chest pain, unspecified; R06.02 Shortness of breath; Z99.81 Dependence on supplemental oxygen; Z87.891 Personal history of nicotine dependence; Z79.899 Other long term (current) drug therapy; Z20.822 Contact with and (suspected) exposure to COVID-19
CPT/HCPCS: 11104; 36415; 71275; 80053; 81003; 83605; 84484; 85025; 87040; 87635; 93005; 96360; 96374; 96375; 99285; J2270; Q9967

== ENCOUNTER → 2020-09-28 09:13 | Outpatient (BNVA) | payer MEDICAID, SELFPAY | PROVIDERS: Visit Provider Surgery | DX: C18.9 Malignant neoplasm of colon, unspecified (principal) | CPT/HCPCS: 99202 ==

== ENCOUNTER 2020-10-05 15:22 | Inpatient (IN) | payer MEDICARE, MEDICAID, SELFPAY ==
[2020-10-05] VITALS (13 sets, daily range): BP systolic 129–149; BP diastolic 69–86; PULSE 86–98; RESP 16–22; TEMP 35.9–37.4; O2SAT 86–99; BMI 32.5
--- NOTE | ~2020-10-05 | CT_ITS ---
EXAMINATION: CT HEAD WITHOUT CONTRAST CT CERVICAL SPINE WITHOUT CONTRAST CLINICAL INFORMATION: Lethargy, falls, altered. COMPARISON: None TECHNIQUE: CT of the head and cervical spine were performed without intravenous contrast. Multiplanar reformats were rendered and reviewed. This CT examination was performed using dose optimization techniques as appropriate, variously including the following: *Automated exposure control *Adjustment of mA and/or kV according to patient size (this includes techniques or standardized protocols for targeted exams where dose is matched to indication/reason for exam; i.e. extremities or head) *Use of iterative reconstruction technique DLP: 1416 mGy-cm. FINDINGS: CT head: There is no intracranial hemorrhage, extra-axial collection, mass effect, or territorial infarction. The ventricles are normal in size and configuration without evidence of hydrocephalus. There is mild opacification of the left mastoid tip. The paranasal sinuses are clear. CT cervical spine: Motion artifact limits evaluation particularly of the lower cervical spine and cervicothoracic junction. No gross fracture is seen. There is no traumatic malalignment. Subtle lucency within the right aspect of the C2 lateral mass likely corresponds to a nutrient foramen. There is no significant osseous encroachment on the spinal canal. The facet joints are normally aligned. Multilevel facet arthropathy is present. There is no high-grade osseous encroachment on the neural foramina. Atheromatous calcifications are seen within the major neck arteries. The upper lungs are grossly clear. CT/CT cervical spine wo con IMPRESSION: CT head: - No acute intracranial abnormality. CT cervical spine: - Motion degraded examination, limiting sensitivity. No definite fracture or traumatic malalignment identified. No high-grade osseous encroachment on the spinal canal or neural foramina. If more sensitive evaluation is needed or if there is high concern for injury, consider repeat examination.
--- NOTE | ~2020-10-05 | CT_ITS ---
EXAMINATION: CT CHEST WITHOUT CONTRAST CLINICAL INFORMATION: Abnormal lung sounds COMPARISON: Chest radiograph earlier today and chest CT 09/23/2020 TECHNIQUE: Multidetector volumetric CT imaging of the chest was done. Axial MIP volume rendering provided. Sagittal and coronal reformatted images were obtained. This CT examination was performed using dose optimization techniques as appropriate, variously including the following: *Automated exposure control *Adjustment of mA and/or kV according to patient size (this includes techniques or standardized protocols for targeted exams where dose is matched to indication/reason for exam; i.e. extremities or head) *Use of iterative reconstruction technique DLP: 574 mGy-cm FINDINGS: LUNGS: Again seen are findings of left lower lobectomy. Right lower lobe infiltrate/atelectasis is present and consolidation is present at the left lung base as well. MEDIASTINUM: The heart is enlarged. A small pericardial effusion remains . Stenoses are present at the origin of the innominate artery as well as the left subclavian artery, better visualized on prior study. Again seen are mediastinal lymph nodes present without significant interval change. PLEURA: A predominantly subpulmonic small to moderate pleural effusion is present on the left with a small pleural effusion on the right. AXILLA: No lymphadenopathy. UPPER ABDOMEN: Unremarkable. OSSEOUS STRUCTURES: Rib fractures are again noted involving the left sixth seventh and eighth laterally. CT/CT chest wo con IMPRESSION: 1. Bilateral basilar infiltrates with small to moderate left pleural effusion, mostly subpulmonic in small right effusion. 2. Small pericardial effusion. Fractures unchanged.
--- NOTE | ~2020-10-05 | XR_ITS ---
EXAMINATION: XR CHEST CLINICAL INFORMATION: Altered mental status. Patient had biopsy proven lung carcinoma. Prior left lower lobectomy COMPARISON: chest radiograph 07/17/[address] chest 09/24/2019 TECHNIQUE: Frontal view of the chest was obtained. FINDINGS: The heart is enlarged. There is left lower lobe collapse/consolidation with retrocardiac density and obscuration of the left hemidiaphragm which was also present at the time of the prior CT scan. Density adjacent to the left chest wall probably represents loculated pleural that was seen at the time of the prior CT scan. There is mild upper zone redistribution suggesting mildly elevated left ventricular end-diastolic pressure. Degenerative changes present in both shoulders as well as the spine. XR/XR chest 1V IMPRESSION: Cardiomegaly with possible mild pulmonary vascular congestion. Left lower lobe consolidation/collapse/atelectasis with associated pleural effusion.
--- NOTE | 2020-10-05 17:24 | ED.GENADULT ---
HPI - General Adult General Chief complaint: Fall Stated complaint: falls lethargy Time Seen by Provider: 10/05/20 17:00 Source: EMS Mode of arrival: EMS Limitations: altered mental status History of Present Illness HPI narrative: 55-year-old female with past medical history as noted below including 55-year-old female with past medical history of acute on chronic respiratory failure on baseline 2 L of oxygen, CHF, bipolar disorder, CAD, COPD, depression, fibromyalgia, HLD, HTN, hypoventilation associated with obesity, lung cancer with recent lobectomy Today she comes in via EMS with complaint of altered mental status and lethargy. It is reported that patient has a history of hypercarbic respiratory failure with similar altered mentation additionally also had a UTI recently treated at home she had lobectomy on September 01 and history of lung and colon CA. Upon arrival she has very lethargic but able to open her eyes to verbal stimuli speech pattern is garbled. She does not have any signs of injury and it is reported that she has had some falls recently. History mostly gathered from EMS and prior hospital visits. She was here this facility most recently admitted on 09/10 and discharged on 09/11 for acute on chronic hypoxemic respiratory failure. Upon arrival on 2 L she is 89% apparently this is somewhat baseline. There has not been any recent reported fever. Treatments prior to arrival: none Related Data Home Medications Medication Instructions Recorded Confirmed amitriptyline 25 mg PO BEDTIME 04/21/20 10/05/20 amlodipine 10 mg PO DAILY 04/21/20 10/05/20 divalproex 500 mg PO DAILY 04/21/20 10/05/20 duloxetine 60 mg PO BEDTIME 04/21/20 10/05/20 omeprazole 20 mg PO BID 04/21/20 10/05/20 Breo Ellipta 1 inh INHALATION DAILY 05/26/20 10/05/20 Incruse Ellipta 1 inh INHALATION DAILY 05/26/20 10/05/20 clonazepam 0.5 mg PO TID 05/26/20 10/05/20 hydralazine 50 mg PO TID 05/26/20 10/05/20 metoprolol succinate 50 mg PO DAILY 05/26/20 10/05/20 oxycodone-acetaminophen 1 tab PO 5XD PRN 05/26/20 10/05/20 atorvastatin 20 mg PO BEDTIME 07/03/20 10/05/20 divalproex 1,000 mg PO BEDTIME 09/10/20 10/05/20 ferrous sulfate 1 tab PO BID 09/10/20 10/05/20 aspirin 1 tab PO QAM 10/05/20 10/05/20 Previous Rx's Medication Instructions Recorded albuterol sulfate 2 puff INHALATION Q4-6H PRN #8.5 g 04/30/20 ondansetron HCl [Zofran] 4 mg PO Q6H #30 tab 09/16/20 Allergies Allergy/AdvReac Type Severity Reaction Status Date / Time Penicillins Allergy Mild RASH Verified 09/28/20 09:27 venlafaxine [From Effexor] Allergy Mild RASH Verified 09/28/20 09:27 cyclobenzaprine Allergy Unknown UNKNOWN Verified 09/28/20 09:27 [Cyclobenzaprine] fentanyl [FENTANYL] Allergy Unknown HALLUCINATI Verified 09/28/20 09:27 ONS topiramate [From Topamax] Allergy Unknown UNKNOWN Verified 09/28/20 09:27 Review of Systems Review of Systems: Yes Unobtainable due to mental status [facility] Past Medical History Medical History Acute and chronic respiratory failure Acute on chronic diastolic CHF (congestive heart failure) Back pain with history of spinal surgery Bipolar 1 disorder Bipolar disorder CAD (coronary artery disease) Chronic back pain COPD (chronic obstructive pulmonary disease) COPD (chronic obstructive pulmonary disease) Depression Fibromyalgia GERD (gastroesophageal reflux disease) High cholesterol HTN (hypertension) Hypoventilation associated with obesity Lung cancer Obesity Obesity hypoventilation syndrome IVY (obstructive sleep apnea) PTSD (post-traumatic stress disorder) Renal failure Respiratory failure with hypoxia and hypercapnia Restless legs syndrome (RLS) Rotator cuff strain Sleep disorder Smoker Surgical History H/O colonoscopy H/O: hysterectomy History of back surgery History of bunionectomy History of esophagogastroduodenoscopy (EGD) Hx of appendectomy Hx of cholecystectomy Hx of exploratory laparotomy Family History Family History Maternal Aunt Breast cancer Stroke COPD (chronic obstructive pulmonary disease) Maternal Aunt Breast cancer COPD (chronic obstructive pulmonary disease) Mother Uterine cancer COPD (chronic obstructive pulmonary disease) HTN (hypertension) Maternal Uncle Stroke Paternal Grandmother Heart attack Sister Diabetes IBS (irritable bowel syndrome) Son HTN (hypertension) Daughter HTN (hypertension) Father HTN (hypertension) Brother Heart disease Social History Social History Household Members: Spouse Housing: Apartment Alcohol intake: former Smoking Status: Never smoker Packs Per Day: 5 Cigarettes Per Day: 100.0 Years Smoked: 40 Second Hand Smoke Exposure: Yes Advance Directives: No Advance Directives Information Provided: Yes Patient : No service: No Current occupational status: unemployed and disabled Physical Exam Vital Signs: Vital Signs: Last Vital Signs Temp 96.7 F L 10/05/20 20:54 Pulse 86 10/05/20 20:54 Resp 16 10/05/20 20:54 BP 129/77 10/05/20 20:54 Pulse Ox 96 10/05/20 22:31 Body Mass Index 32.5 Reviewed Const: Other: Minimally open eyes to verbal stimuli, open eyes to sternal rub. General: lethargic Nutritional Appearance: obese Orientation/consciousness: lethargic HENMT: Head: Yes normal to inspection Ears: hearing grossly normal bilaterally Eyes: General: appearance normal, both eyes and all related structures Pupils: Dilated pupils (3 mm) bilaterally Direct Ophthalmoscopy: normal light reflex Neck: Neck: Yes normal visual inspection, No positive Brudzinski's sign, No positive Kernig's sign and No tender Thyroid: Thyroid normal Chest: Chest palpation & inspection: normal inspection of the chest Resp: Effort & Inspection: normal respiratory effort Auscultation: breath sounds absent (Lower) on th left and diminished lung sounds Cardio: Jugular venous distension: no JVD Rhythm: regular rhythm Heart sounds: S1 normal heart sound present and S2 normal heart sound present GI: Inspection: Yes normal to inspection Palpation (GI): Soft to palpation Percussion: Yes normal to percussion Auscultation: normal bowel sounds : General: Yes no CVA tenderness Back/Spine/Pelvis: Back: no CVA tenderness Skin: General skin exam: no rashes or lesions noted Extrem: General: Yes normal to inspection Course Reevaluation(s) Reevaluation #1: 1745 ABGs pH 7.15; pCO2 109; PO2 63; HC03 39 Consistent with acute on chronic Placed on BiPAP. Workup in progress Given her history will likely require unit care case will be discussed with ICU. Consultations Consultation #1: [address] Tc Lira reviewed Remainder labs still pending Recommendation for repeat ABGs and 1-1 1/2 hour and re-evaluate. Medical Decision Making Lab Data Result diagrams: 10/05/20 18:07 10/05/20 18:07 Labs: Lab Results 10/05/20 10/05/20 10/05/20 Range/Units 17:32 18:07 18:07 WBC 11.3 H (4.8-10.8) X10*3/uL RBC 3.71 L (4.20-5.50) X10*6/uL Hgb 9.6 L (12.0-16.0) g/dl Hct 36.1 L D (37-47) % MCV 97.3 (80-98) fL MCH 25.9 L (27.0-33.0) pg MCHC 26.6 L (31.0-35.0) g/dl RDW 18.0 H (11.0-16.0) % Plt Count 377 (160-400) X10*3/uL MPV 9.2 L (9.4-12.3) fL Immature Gran % (Auto) 4.6 H (0.0-0.4) % Neut % (Auto) 72.8 (45-73) % Lymph % (Auto) 14.6 L (20-40) % [place] % (Auto) 7.3 (2-11) % Eos % (Auto) 0.1 (0-4) % Baso % (Auto) 0.6 (0-2) % Lymph # (Auto) 1.7 (1.2-4.9) X10*3/uL [place] # (Auto) 0.8 (0.1-1.2) X10*3/uL Eos # (Auto) 0.0 (0.0-0.4) X10*3/uL Baso # (Auto) 0.1 (0.0-0.2) X10*3/uL Abs Immat Gran (auto) 0.52 H (0.00-0.03) X10*3/uL Absolute Neuts (auto) 8.2 (2.0-8.3) X10*3/uL Absolute Nucleated RBC 0.060 H (0.0-0.012) X10*3/uL Nucleated RBC % (auto) 0.5 H (0.0-0.2) /100WBC PT 12.4 (10.8-13.0) SEC INR 1.0 (0.9-1.1) APTT 35.3 (24.1-38.0) SEC O2 Saturation 86.0 % ABG pH at Pt Temp 7.15 L* (7.35-7.45) ABG pH (Temp Correct) 7.16 L* (7.35-7.45) ABG pCO2 at Pt Temp 109 H* (32-45) mmHg ABG pCO2 (Temp Corrct 108 H* (32-45) mmHg ABG pO2 at Pt Temp 63 L (83-108) mmHg ABG pO2 (Temp Correct 63 L (83-108) ABG HCO3 39 H (22-26) mmol/L ABG Base Excess (Actual) 6.7 mmol/L VBG pH (7.32-7.43) VBG pCO2 mmHg VBG pO2 mmHg VBG HCO3 (22-26) mmol/L VBG O2 Saturation % VBG Base Excess mmol/L Sodium (135-145) mmol/L Potassium (3.3-5.1) mmol/L Chloride (96-108) mmol/L Carbon Dioxide (22-29) mmol/L Anion Gap (12-20) BUN (9-16) mg/dL Creatinine (0.5-1.4) mg/dL Estim Creat Clear Calc Estimated GFR Random Glucose (60-115) mg/dL Lactic Acid (0.5-2.0) mmol/L Calcium (8.4-10.2) mg/dL Ferritin (10-250) ng/mL Total Bilirubin (0.0-1.0) mg/dL AST (5-31) U/L ALT (0-31) U/L Alkaline Phosphatase (39-117) U/L Lactate Dehydrogenase (122-220) U/L Troponin I High Sens (<3.5-17.0) ng/L C-Reactive Protein (< or = 0.50) mg/dL B-Natriuretic Peptide (<100) pg/mL Total Protein (6.5-8.0) g/dL Albumin (3.5-5.0) g/dL Procalcitonin ng/mL Urine Color Urine Appearance Urine pH (5.0-8.0) Ur Specific [place] (1.005-1.025) Urine Protein (NEG-TRACE) MG/DL Urine Glucose (UA) (NEG) MG/DL Urine Ketones (NEG) MG/DL Urine Blood (NEG) Urine Nitrite (NEG) Ur Leukocyte Esterase (NEG) Urine RBC (0) /HPF Urine WBC (0-4) /HPF Ur Squamous Epith Cells /LPF Urine Bacteria /LPF Coronavirus (PCR) (Negative) Influenza Type A (PCR) (Negative) Influenza Type B (PCR) (Negative) RSV RNA Qual (PCR) (Negative) 10/05/20 10/05/20 10/05/20 Range/Units 18:07 18:07 18:07 WBC (4.8-10.8) X10*3/uL RBC (4.20-5.50) X10*6/uL Hgb (12.0-16.0) g/dl Hct (37-47) % MCV (80-98) fL MCH (27.0-33.0) pg MCHC (31.0-35.0) g/dl RDW (11.0-16.0) % Plt Count (160-400) X10*3/uL MPV (9.4-12.3) fL Immature Gran % (Auto) (0.0-0.4) % Neut % (Auto) (45-73) % Lymph % (Auto) (20-40) % [place] % (Auto) (2-11) % Eos % (Auto) (0-4) % Baso % (Auto) (0-2) % Lymph # (Auto) (1.2-4.9) X10*3/uL [place] # (Auto) (0.1-1.2) X10*3/uL Eos # (Auto) (0.0-0.4) X10*3/uL Baso # (Auto) (0.0-0.2) X10*3/uL Abs Immat Gran (auto) (0.00-0.03) X10*3/uL Absolute Neuts (auto) (2.0-8.3) X10*3/uL Absolute Nucleated RBC (0.0-0.012) X10*3/uL Nucleated RBC % (auto) (0.0-0.2) /100WBC PT (10.8-13.0) SEC INR (0.9-1.1) APTT (24.1-38.0) SEC O2 Saturation % ABG pH at Pt Temp (7.35-7.45) ABG pH (Temp Correct) (7.35-7.45) ABG pCO2 at Pt Temp (32-45) mmHg ABG pCO2 (Temp Corrct (32-45) mmHg ABG pO2 at Pt Temp (83-108) mmHg ABG pO2 (Temp Correct (83-108) ABG HCO3 (22-26) mmol/L ABG Base Excess (Actual) mmol/L VBG pH (7.32-7.43) VBG pCO2 mmHg VBG pO2 mmHg VBG HCO3 (22-26) mmol/L VBG O2 Saturation % VBG Base Excess mmol/L Sodium 141 (135-145) mmol/L Potassium 4.2 D (3.3-5.1) mmol/L Chloride 98 (96-108) mmol/L Carbon Dioxide 33 H (22-29) mmol/L Anion Gap 14 (12-20) BUN 10 (9-16) mg/dL Creatinine 1.00 (0.5-1.4) mg/dL Estim Creat Clear Calc 65.9 Estimated GFR 57 Random Glucose 114 (60-115) mg/dL Lactic Acid 1.1 (0.5-2.0) mmol/L Calcium 8.4 D (8.4-10.2) mg/dL Ferritin 107 (10-250) ng/mL Total Bilirubin 0.3 (0.0-1.0) mg/dL AST 12 D (5-31) U/L ALT < 6 (0-31) U/L Alkaline Phosphatase 112 (39-117) U/L Lactate Dehydrogenase 218 (122-220) U/L Troponin I High Sens 14.5 D (<3.5-17.0) ng/L C-Reactive Protein 3.34 H (< or = 0.50) mg/dL B-Natriuretic Peptide 977 H (<100) pg/mL Total Protein 6.9 (6.5-8.0) g/dL Albumin 3.6 (3.5-5.0) g/dL Procalcitonin ng/mL Urine Color Urine Appearance Urine pH (5.0-8.0) Ur Specific [place] (1.005-1.025) Urine Protein (NEG-TRACE) MG/DL Urine Glucose (UA) (NEG) MG/DL Urine Ketones (NEG) MG/DL Urine Blood (NEG) Urine Nitrite (NEG) Ur Leukocyte Esterase (NEG) Urine RBC (0) /HPF Urine WBC (0-4) /HPF Ur Squamous Epith Cells /LPF Urine Bacteria /LPF Coronavirus (PCR) (Negative) Influenza Type A (PCR) (Negative) Influenza Type B (PCR) (Negative) RSV RNA Qual (PCR) (Negative) 10/05/20 10/05/20 10/05/20 Range/Units 18:07 18:07 19:24 WBC (4.8-10.8) X10*3/uL RBC (4.20-5.50) X10*6/uL Hgb (12.0-16.0) g/dl Hct (37-47) % MCV (80-98) fL MCH (27.0-33.0) pg MCHC (31.0-35.0) g/dl RDW (11.0-16.0) % Plt Count (160-400) X10*3/uL MPV (9.4-12.3) fL Immature Gran % (Auto) (0.0-0.4) % Neut % (Auto) (45-73) % Lymph % (Auto) (20-40) % [place] % (Auto) (2-11) % Eos % (Auto) (0-4) % Baso % (Auto) (0-2) % Lymph # (Auto) (1.2-4.9) X10*3/uL [place] # (Auto) (0.1-1.2) X10*3/uL Eos # (Auto) (0.0-0.4) X10*3/uL Baso # (Auto) (0.0-0.2) X10*3/uL Abs Immat Gran (auto) (0.00-0.03) X10*3/uL Absolute Neuts (auto) (2.0-8.3) X10*3/uL Absolute Nucleated RBC (0.0-0.012) X10*3/uL Nucleated RBC % (auto) (0.0-0.2) /100WBC PT (10.8-13.0) SEC INR (0.9-1.1) APTT (24.1-38.0) SEC O2 Saturation % ABG pH at Pt Temp (7.35-7.45) ABG pH (Temp Correct) (7.35-7.45) ABG pCO2 at Pt Temp (32-45) mmHg ABG pCO2 (Temp Corrct (32-45) mmHg ABG pO2 at Pt Temp (83-108) mmHg ABG pO2 (Temp Correct (83-108) ABG HCO3 (22-26) mmol/L ABG Base Excess (Actual) mmol/L VBG pH (7.32-7.43) VBG pCO2 mmHg VBG pO2 mmHg VBG HCO3 (22-26) mmol/L VBG O2 Saturation % VBG Base Excess mmol/L Sodium (135-145) mmol/L Potassium (3.3-5.1) mmol/L Chloride (96-108) mmol/L Carbon Dioxide (22-29) mmol/L Anion Gap (12-20) BUN (9-16) mg/dL Creatinine (0.5-1.4) mg/dL Estim Creat Clear Calc Estimated GFR Random Glucose (60-115) mg/dL Lactic Acid (0.5-2.0) mmol/L Calcium (8.4-10.2) mg/dL Ferritin (10-250) ng/mL Total Bilirubin (0.0-1.0) mg/dL AST (5-31) U/L ALT (0-31) U/L Alkaline Phosphatase (39-117) U/L Lactate Dehydrogenase (122-220) U/L Troponin I High Sens (<3.5-17.0) ng/L C-Reactive Protein (< or = 0.50) mg/dL B-Natriuretic Peptide (<100) pg/mL Total Protein (6.5-8.0) g/dL Albumin (3.5-5.0) g/dL Procalcitonin 0.08 ng/mL Urine Color YELLOW Urine Appearance CLEAR Urine pH 6.0 (5.0-8.0) Ur Specific [place] >= 1.030 H (1.005-1.025) Urine Protein 2+ H (NEG-TRACE) MG/DL Urine Glucose (UA) NEG (NEG) MG/DL Urine Ketones NEG (NEG) MG/DL Urine Blood NEG (NEG) Urine Nitrite NEG (NEG) Ur Leukocyte Esterase NEG (NEG) Urine RBC 0 (0) /HPF Urine WBC 0 (0-4) /HPF Ur Squamous Epith Cells TRACE /LPF Urine Bacteria NONE /LPF Coronavirus (PCR) NEGATIVE (Negative) Influenza Type A (PCR) NEGATIVE (Negative) Influenza Type B (PCR) NEGATIVE (Negative) RSV RNA Qual (PCR) NEGATIVE (Negative) 10/05/20 Range/Units 20:34 WBC (4.8-10.8) X10*3/uL RBC (4.20-5.50) X10*6/uL Hgb (12.0-16.0) g/dl Hct (37-47) % MCV (80-98) fL MCH (27.0-33.0) pg MCHC (31.0-35.0) g/dl RDW (11.0-16.0) % Plt Count (160-400) X10*3/uL MPV (9.4-12.3) fL Immature Gran % (Auto) (0.0-0.4) % Neut % (Auto) (45-73) % Lymph % (Auto) (20-40) % [place] % (Auto) (2-11) % Eos % (Auto) (0-4) % Baso % (Auto) (0-2) % Lymph # (Auto) (1.2-4.9) X10*3/uL [place] # (Auto) (0.1-1.2) X10*3/uL Eos # (Auto) (0.0-0.4) X10*3/uL Baso # (Auto) (0.0-0.2) X10*3/uL Abs Immat Gran (auto) (0.00-0.03) X10*3/uL Absolute Neuts (auto) (2.0-8.3) X10*3/uL Absolute Nucleated RBC (0.0-0.012) X10*3/uL Nucleated RBC % (auto) (0.0-0.2) /100WBC PT (10.8-13.0) SEC INR (0.9-1.1) APTT (24.1-38.0) SEC O2 Saturation % ABG pH at Pt Temp (7.35-7.45) ABG pH (Temp Correct) (7.35-7.45) ABG pCO2 at Pt Temp (32-45) mmHg ABG pCO2 (Temp Corrct (32-45) mmHg ABG pO2 at Pt Temp (83-108) mmHg ABG pO2 (Temp Correct (83-108) ABG HCO3 (22-26) mmol/L ABG Base Excess (Actual) mmol/L VBG pH 7.25 L (7.32-7.43) VBG pCO2 87 mmHg VBG pO2 57 mmHg VBG HCO3 38 H (22-26) mmol/L VBG O2 Saturation 86.0 % VBG Base Excess 8.6 mmol/L Sodium (135-145) mmol/L Potassium (3.3-5.1) mmol/L Chloride (96-108) mmol/L Carbon Dioxide (22-29) mmol/L Anion Gap (12-20) BUN (9-16) mg/dL Creatinine (0.5-1.4) mg/dL Estim Creat Clear Calc Estimated GFR Random Glucose (60-115) mg/dL Lactic Acid (0.5-2.0) mmol/L Calcium (8.4-10.2) mg/dL Ferritin (10-250) ng/mL Total Bilirubin (0.0-1.0) mg/dL AST (5-31) U/L ALT (0-31) U/L Alkaline Phosphatase (39-117) U/L Lactate Dehydrogenase (122-220) U/L Troponin I High Sens (<3.5-17.0) ng/L C-Reactive Protein (< or = 0.50) mg/dL B-Natriuretic Peptide (<100) pg/mL Total Protein (6.5-8.0) g/dL Albumin (3.5-5.0) g/dL Procalcitonin ng/mL Urine Color Urine Appearance Urine pH (5.0-8.0) Ur Specific [place] (1.005-1.025) Urine Protein (NEG-TRACE) MG/DL Urine Glucose (UA) (NEG) MG/DL Urine Ketones (NEG) MG/DL Urine Blood (NEG) Urine Nitrite (NEG) Ur Leukocyte Esterase (NEG) Urine RBC (0) /HPF Urine WBC (0-4) /HPF Ur Squamous Epith Cells /LPF Urine Bacteria /LPF Coronavirus (PCR) (Negative) Influenza Type A (PCR) (Negative) Influenza Type B (PCR) (Negative) RSV RNA Qual (PCR) (Negative) Imaging Data Chest x-ray: Radiologist's impression: [address] [id number] ReportSigned Patient: Claire SethMR#: [id number]: 1965Acct:[id number]/Sex: 55 / FADM Date: 10/05/20Loc: EDAttending Dr: Ordering Physician: Hossein De León NP Date of Service: 10/05/20 Procedure(s): XR chest 1V Accession Number(s): [id number] cc: Hossein De León ADJUNCT PSYCHOLOGY PROFESSOR~ EXAMINATION: XR CHEST CLINICAL INFORMATION: Altered mental status. Patient had biopsy proven lung carcinoma. Prior left lower lobectomy COMPARISON: chest radiograph 07/17/[address] chest 09/24/2019 TECHNIQUE: Frontal view of the chest was obtained. FINDINGS: The heart is enlarged. There is left lower lobe collapse/consolidation with retrocardiac density and obscuration of the left hemidiaphragm which was also present at the time of the prior CT scan. Density adjacent to the left chest wall probably represents loculated pleural that was seen at the time of the prior CT scan. There is mild upper zone redistribution suggesting mildly elevated left ventricular end-diastolic pressure. Degenerative changes present in both shoulders as well as the spine. XR/XR chest 1V IMPRESSION: Cardiomegaly with possible mild pulmonary vascular congestion. Left lower lobe consolidation/collapse/atelectasis with associated pleural effusion. Dictated By:FARTUN DEL VALLE MDSigned By:<Electronically signed by FARTUN DEL VALLE MD in [place]>10/05/20 1816 DD/ 1725TD/TT: Tip Tester: MUNDO Head/cervical spine CT: Radiologist's impression: [id number] [place], [place] [id number] Scan ReportSigned Patient: Claire SethMR#: [id number]: 1965Acct:[id number]/Sex: 55 / FADM Date: 10/05/20Loc: HO.EDAttending Dr: Ordering Physician: ALISE DEAN Date of Service: 10/05/20 Procedure(s): CT head/brain wo con Accession Number(s): [id number] cc: ALISE DEAN~ EXAMINATION: CT HEAD WITHOUT CONTRAST CT CERVICAL SPINE WITHOUT CONTRAST CLINICAL INFORMATION: Lethargy, falls, altered. COMPARISON: None TECHNIQUE: CT of the head and cervical spine were performed without intravenous contrast. Multiplanar reformats were rendered and reviewed. This CT examination was performed using dose optimization techniques as appropriate, variously including the following: *Automated exposure control *Adjustment of mA and/or kV according to patient size (this includes techniques or standardized protocols for targeted exams where dose is matched to indication/reason for exam; i.e. extremities or head) *Use of iterative reconstruction technique DLP: 1416 mGy-cm. FINDINGS: CT head: There is no intracranial hemorrhage, extra-axial collection, mass effect, or territorial infarction. The ventricles are normal in size and configuration without evidence of hydrocephalus. There is mild opacification of the left mastoid tip. The paranasal sinuses are clear. CT cervical spine: Motion artifact limits evaluation particularly of the lower cervical spine and cervicothoracic junction. No gross fracture is seen. There is no traumatic malalignment. Subtle lucency within the right aspect of the C2 lateral mass likely corresponds to a nutrient foramen. There is no significant osseous encroachment on the spinal canal. The facet joints are normally aligned. Multilevel facet arthropathy is present. There is no high-grade osseous encroachment on the neural foramina. Atheromatous calcifications are seen within the major neck arteries. The upper lungs are grossly clear. CT/CT head/brain wo con IMPRESSION: CT head: - No acute intracranial abnormality. CT cervical spine: - Motion degraded examination, limiting sensitivity. No definite fracture or traumatic malalignment identified. No high-grade osseous encroachment on the spinal canal or neural foramina. If more sensitive evaluation is needed or if there is high concern for injury, consider repeat examination. Dictated By:MARAL FONTENOT MDSigned By:<Electronically signed by MARAL FONTENOT MD in OV>10/05/20 1836 DD/ 1700TD/TT: Tip Tester: JACQUES ECG Data Interpretation: Normal sinus rhythm Rate 96 T-wave inversion in the anterior leads similar to previous No acute ST segment elevation No significant change from 09/24/2019 Critical Care Time Critical Care Time Total Critical Care Time: 120 Attestation: Patient upon arrival hyperchromic, lethargic history of respiratory failure found to be in acute on chronic respiratory failure requiring emergent BiPAP for stabilization required multiple evaluations at bedside including coordination of care with intensive care unit and admission. Discharge Plan Discharge Clinical Impression: Respiratory failure with hypoxia and hypercapnia, Hypoventilation associated with obesity, CHF exacerbation Patient Disposition: Admitted As Inpatient
--- NOTE | 2020-10-05 17:25 | ECG_ITS ---
Test Reason : WEAKNESS Blood Pressure : / mmHG Vent. Rate : 096 BPM Atrial Rate : 096 BPM P-R Int : 156 ms QRS Dur : 096 ms QT Int : 350 ms P-R-T Axes : 058 064 016 degrees QTc Int : 442 ms Normal sinus rhythm Cannot rule out Anterior infarct , age undetermined ; could be from lead placement and body habitus; Abnormal ECG When compared with ECG of 23-SEP-2020 05:00, No significant change was found Referred By: Mattie Roberts Electronically Signed By:KARIE AKERS
[2020-10-05 17:40] LABS: ABG Refer to POC result
[2020-10-05 17:42] LABS: ABG Base Excess 6.7 mmol/L; ABG HCO3 39 mmol/L (22-26); ABG pCO2 109 mmHg (32-45); ABG pCO2 TC 108 mmHg (32-45); ABG pH 7.15 (7.35-7.45); ABG pH TC 7.16 (7.35-7.45); ABG pO2 63 mmHg (83-108); ABG pO2 TC 63 (83-108)
[2020-10-05 18:23] LABS: MANUAL DIFF FLAG NO
[2020-10-05 18:27] LABS: Basophils Absolute Auto 0.1 X10*3/uL (0.0-0.2); Basophils Percent Auto 0.6 % (0-2); Eosinophils Percent Auto 0.1 % (0-4); Hematocrit 36.1 % (37-47); Hemoglobin 9.6 g/dl (12.0-16.0); Imm Gran Abs Auto 0.52 X10*3/uL (0.00-0.03); Imm Gran Pct Auto 4.6 % (0.0-0.4); Lymphocytes Absolute Auto 1.7 X10*3/uL (1.2-4.9); Lymphocytes Percent Auto 14.6 % (20-40); Mean Corpuscular HGB Conc 26.6 g/dl (31.0-35.0); Mean Corpuscular Hemoglobin 25.9 pg (27.0-33.0); Mean Corpuscular Volume 97.3 fL (80-98); Mean Platelet Volume 9.2 fL (9.4-12.3); Monocytes Absolute Auto 0.8 X10*3/uL (0.1-1.2); Monocytes Percent Auto 7.3 % (2-11); NRBC Pct Auto 0.5 /100WBC (0.0-0.2); Neutrophils Absolute Auto 8.2 X10*3/uL (2.0-8.3); Neutrophils Percent Auto 72.8 % (45-73); Platelet Count 377 X10*3/uL (160-400); Red Blood Count 3.71 X10*6/uL (4.20-5.50); White Blood Count 11.3 X10*3/uL (4.8-10.8)
--- NOTE | 2020-10-05 18:39 | PC.NURSE ---
Pt placd on bipap at 1745 20/10 and decreased to 20/5 at 80% fio2. Sats in high 90s with TV averaging in mid 300s. Pt remains somnolent. Repeat ABG requested from provider at 1855
[2020-10-05 18:42] LABS: Lactic Acid 1.1 mmol/L (0.5-2.0)
[2020-10-05 18:44] LABS: Prothrombin Time 12.4 SEC (10.8-13.0)
[2020-10-05 18:47] LABS: Partial Thromboplastin Time 35.3 SEC (24.1-38.0)
[2020-10-05 18:52] LABS: Alanine Aminotransferase < 6 U/L (0-31); Albumin Level 3.6 g/dL (3.5-5.0); Alkaline Phosphatase 112 U/L (39-117); Anion Gap 14 (12-20); Aspartate Amino Transferase 12 U/L (5-31); Bilirubin Total 0.3 mg/dL (0.0-1.0); Blood Urea Nitrogen 10 mg/dL (9-16); C Reactive Protein 3.34 mg/dL (< or = 0.50); Calcium 8.4 mg/dL (8.4-10.2); Carbon Dioxide 33 mmol/L (22-29); Chloride 98 mmol/L (96-108); Creatinine Clr Calc Pharmacy 65.9; Estimated Glomerular Filt Rate 57; Glucose Random 114 mg/dL (60-115); Lactate Dehydrogenase 218 U/L (122-220); Potassium 4.2 mmol/L (3.3-5.1); Sodium 141 mmol/L (135-145); Total Protein 6.9 g/dL (6.5-8.0); Troponin-I High Sensitivity 14.5 ng/L (<3.5-17.0)
[2020-10-05 18:59] LABS: B Type Natriuretic Peptide 977 pg/mL (<100)
[2020-10-05 19:07] LABS: Procalcitonin 0.08 ng/mL
[2020-10-05 19:10] LABS: Influenza A PCR NEGATIVE (Negative); Influenza B PCR NEGATIVE (Negative); Resp Syncy Virus RNA Qual PCR NEGATIVE (Negative); SARS COV2 PCR INHOUSE NEGATIVE (Negative)
[2020-10-05 19:11] LABS: Ferritin 107 ng/mL (10-250)
[2020-10-05] MEDS: Furosemide 40 MG/4 ML VIAL IVPUSH (19:14)
--- NOTE | 2020-10-05 19:25 | PC.NURSE ---
Report taken from Jennifer, janell RN resuming care. Pt resting in bed, drowsy but opens eyes to verbal stimuli, denies pain. Doty placed, UA obtained and sent. VSS. Awaiting lab results and repeat ABG (RT aware). Continue to monitor.
--- NOTE | 2020-10-05 19:26 | PC.NURSE ---
RT called for repeat ABG. PT appears more awake at this time with stimulation. VS remain stable. Doty catheter placed and IV lasix given.
[2020-10-05 19:42] LABS: Glucose Urine UA NEG (NEG); Leukocyte Esterase Urine NEG (NEG); Nitrite Urine NEG (NEG); Specific Gravity - Urine >= 1.030 (1.005-1.025); Urine Blood NEG (NEG); Urine Ketones NEG (NEG); Urine Protein 2+ MG/DL (NEG-TRACE)
[2020-10-05 19:46] LABS: Appearance Urine CLEAR; Color Urine YELLOW
[2020-10-05 19:56] LABS: RBC Urine 0 /HPF (0); Squamous Epithelial Cell Urine TRACE /LPF; WBC Urine 0 /HPF (0-4)
--- NOTE | 2020-10-05 20:01 | PC.NURSE ---
RT at bedside for ABG.
--- NOTE | 2020-10-05 20:25 | PC.NURSE ---
RT UTO ABG. Per BANK COURIER, nursing to obtain VBG. RN at bedside to obtain VBG.
[2020-10-05 20:40] LABS: Venous Blood Gas Refer to POC result
[2020-10-05 20:40] LABS: VBG Base Excess 8.6 mmol/L; VBG HCO3 38 mmol/L (22-26); VBG pCO2 87 mmHg; VBG pH 7.25 (7.32-7.43); VBG pO2 57 mmHg
--- NOTE | 2020-10-05 21:35 | PM.CCHP ---
History of Present Illness Date of Service: 10/05/20 <Mattie Roberts PA-C - Last Filed: 10/06/20 19:38> Chief Complaint: AMS <Mattie Roberts PA-C - Last Filed: 10/06/20 19:38> 55-year-old female with past medical history of acute on chronic respiratory failure on baseline 2 L of oxygen, CHF, bipolar disorder, CAD, depression, fibromyalgia, HLD, HTN, hypoventilation associated with obesity, Left lower lobe poorly differentiated carcinoma with LLL lobectomy and mediastinal lymphadenectomy on 09/01/[address] Cota at [facility], she also has a hx of sigmoid colon adenocarcinoma with colonoscopy on 08/06/2020, patient was referred to Dr Wray, the surgery has not taken place yet, according to the medical records. Of note, pt is on opioids 5x daily for pain control. She is also on chronic benzo's. Pt was BIBA to the ED earlier today because she was found to be altered mental status and lethargic. Patient has also had a UTI recently according to the ED records. VSS. Physical exam in the ED revealed patient had garbled speech and lethargic, able to open eyes to verbal stimuli. Labs showed patient was acidotic at 7.15 and hypercarbic at 109. Patient was placed on BiPAP, 20/5 for 2 hours, repeat labs showed patient still slightly acidotic at 7.25 and a pCO2 of 87. Patient's BNP was also elevated at 977, she was given 40 of Lasix IV and she put out 1100 cc of urine so far. WBC 11.9, coags WNL, CRP 3.34, procalcitonin 0.08, Covid-19 negative. No UTox was done. Chest X-ray showed cardiomegaly with possible mild pulmonary vascular congestion. Left lower lobe consolidation//collapsed atelectasis with associated pleural effusion. CT head: - No acute intracranial abnormality. CT cervical spine: - Motion degraded examination, limiting sensitivity. No definite fracture or traumatic malalignment identified. No high-grade osseous encroachment on the spinal canal or neural foramina. If more sensitive evaluation is needed or if there is high concern for injury, consider repeat examination. Upon my exam, the patient was still slightly lethargic, but able to respond to verbal stimuli and commands, lung sounds were very dim and coarse, exam was otherwise unremarkable. Will get CT scan before pt comes to the ICU. Patient will be admitted to the ICU for continued BiPAP and monitoring. <Mattie Roberts PA-C - Last Filed: 10/06/20 19:38> Review of Systems Review of Systems: Yes all other systems are reviewed and are negative <Mattie Roberts PA-C - Last Filed: 10/06/20 19:38> [facility] Past Medical History Medical History: Medical History Acute and chronic respiratory failure Acute on chronic diastolic CHF (congestive heart failure) Back pain with history of spinal surgery Bipolar 1 disorder Bipolar disorder CAD (coronary artery disease) Chronic back pain COPD (chronic obstructive pulmonary disease) COPD (chronic obstructive pulmonary disease) Depression Fibromyalgia GERD (gastroesophageal reflux disease) High cholesterol HTN (hypertension) Hypoventilation associated with obesity Lung cancer Obesity Obesity hypoventilation syndrome IVY (obstructive sleep apnea) PTSD (post-traumatic stress disorder) Renal failure Respiratory failure with hypoxia and hypercapnia Restless legs syndrome (RLS) Rotator cuff strain Sleep disorder Smoker <Mattie Roberts PA-C - Last Filed: 10/06/20 19:38> Family History Family History: Family History Maternal Aunt Breast cancer Stroke COPD (chronic obstructive pulmonary disease) Maternal Aunt Breast cancer COPD (chronic obstructive pulmonary disease) Mother Uterine cancer COPD (chronic obstructive pulmonary disease) HTN (hypertension) Maternal Uncle Stroke Paternal Grandmother Heart attack Sister Diabetes IBS (irritable bowel syndrome) Son HTN (hypertension) Daughter HTN (hypertension) Father HTN (hypertension) Brother Heart disease <Mattie Roberts PA-C - Last Filed: 10/06/20 19:38> Surgical History Surgical History: Surgical History H/O colonoscopy H/O: hysterectomy History of back surgery History of bunionectomy History of esophagogastroduodenoscopy (EGD) Hx of appendectomy Hx of cholecystectomy Hx of exploratory laparotomy <Mattie Roberts PA-C - Last Filed: 10/06/20 19:38> Social History Social History: Social History Household Members: Unknown / Unable to assess Housing: Unknown / Unable to assess Unable to assess alcohol history related to: Unable to respond Alcohol intake: former Smoking Status: Unknown if ever smoked Packs Per Day: 5 Cigarettes Per Day: 100.0 Years Smoked: 40 Second Hand Smoke Exposure: Yes Use of substances other than those prescribed or required for medical reasons: Unknown Currently Displaying Signs/Symptoms of Drug Intoxication Withdrawal: No Advance Directives: No Advance Directives Information Provided: Yes Do you have thoughts of harming others: None Do you have a plan to hurt others: No Plan Recently lost weight without trying: Unsure Patient : No : No Poor oral hygiene: No service: No Current occupational status: unemployed and disabled <Mattie Roberts PA-C - Last Filed: 10/06/20 19:38> Meds Allergies/Adverse reactions: Allergies Allergy/AdvReac Type Severity Reaction Status Date / Time Penicillins Allergy Mild RASH Verified 09/28/20 09:27 venlafaxine [From Effexor] Allergy Mild RASH Verified 09/28/20 09:27 cyclobenzaprine Allergy Unknown UNKNOWN Verified 09/28/20 09:27 [Cyclobenzaprine] fentanyl [FENTANYL] Allergy Unknown HALLUCINATI Verified 09/28/20 09:27 ONS topiramate [From Topamax] Allergy Unknown UNKNOWN Verified 09/28/20 09:27 <Mattie Roberts PA-C - Last Filed: 10/06/20 19:38> Active Medications: Current Medications Generic Name Dose Route Start Last Admin Trade Name Freq PRN Reason Stop Dose Admin Pharmacy Consult 1 each 10/05/20 18:58 Consult Rx Perform Med Rec MISCELLANE ONCE PRN Consult order <Mattie Roberts PA-C - Last Filed: 10/06/20 19:38> Home medications: Home Medications Medication Instructions Recorded Confirmed Last Taken Type amitriptyline 25 mg PO BEDTIME 04/21/20 10/05/20 09/08/20 History amlodipine 10 mg PO DAILY 04/21/20 10/05/20 09/09/20 History divalproex 500 mg PO DAILY 04/21/20 10/05/20 09/09/20 History duloxetine 60 mg PO BEDTIME 04/21/20 10/05/20 09/08/20 History omeprazole 20 mg PO BID 04/21/20 10/05/20 09/09/20 History Breo Ellipta 1 inh INHALATION DAILY 05/26/20 10/05/20 09/09/20 History Incruse Ellipta 1 inh INHALATION DAILY 05/26/20 10/05/20 09/09/20 History clonazepam 0.5 mg PO TID 05/26/20 10/05/20 09/09/20 History hydralazine 50 mg PO TID 05/26/20 10/05/20 09/09/20 History metoprolol succinate 50 mg PO DAILY 05/26/20 10/05/20 09/09/20 History oxycodone-acetaminophen 1 tab PO 5XD PRN 05/26/20 10/05/20 09/09/20 History atorvastatin 20 mg PO BEDTIME 07/03/20 10/05/20 09/08/20 History divalproex 1,000 mg PO BEDTIME 09/10/20 10/05/20 09/08/20 History ferrous sulfate 1 tab PO BID 09/10/20 10/05/20 09/09/20 History aspirin 1 tab PO QAM 10/05/20 10/05/20 Unknown History <Mattie Roberts PA-C - Last Filed: 10/06/20 19:38> Physical Exam Vital Signs: Vital Signs: Last Vital Signs Temp 96.7 F L 10/05/20 20:54 Pulse 86 10/05/20 20:54 Resp 16 10/05/20 20:54 BP 129/77 10/05/20 20:54 Pulse Ox 97 10/05/20 20:54 Body Mass Index 32.5 <Mattie Roberts PA-C - Last Filed: 10/06/20 19:38> Const: General: cooperative, comfortable, no acute distress and tired appearing <Mattie Roberts PA-C - Last Filed: 10/06/20 19:38> Nutritional Appearance: obese <Mattie Roberts PA-C - Last Filed: 10/06/20 19:38> Orientation/consciousness: lethargic (slightly) <Mattie Roberts PA-C - Last Filed: 10/06/20 19:38> HENMT: Head: Yes normal to inspection, Yes No palpable skull fracture present, Yes normocephalic and Yes atraumatic <Mattie Roberts PA-C - Last Filed: 10/06/20 19:38> General nose exam: Normal external nose present <Mattie Roberts PA-C - Last Filed: 10/06/20 19:38> Face and sinus: Yes normal facial exam <Mattie Roberts PA-C - Last Filed: 10/06/20 19:38> Eyes: General: appearance normal, both eyes and all related structures <Mattie Roberts PA-C - Last Filed: 10/06/20 19:38> Neck: Neck: Yes normal visual inspection and Yes full ROM <Mattie Roberts PA-C Gina Last Filed: 10/06/20 19:38> Resp: Effort & Inspection: normal respiratory effort and able to speak in complete sentences <Mattie Roberts PA-C Gina Last Filed: 10/06/20 19:38> Auscultation: diminished lung sounds ( coarse) diffuse <Mattie Roberts PA-C - Last Filed: 10/06/20 19:38> Cardio: Rate: regular rate <DEYVI FaustinMariel Fuentes Last Filed: 10/06/20 19:38> Rhythm: regular rhythm <Mattie Roberts PA-C - Last Filed: 10/06/20 19:38> Heart sounds: normal S1 and S2 <Mattie Roberts PA-C - Last Filed: 10/06/20 19:38> GI: Inspection: Yes normal to inspection <Mattie Roberts PA-C Gina Last Filed: 10/06/20 19:38> Palpation (GI): Soft to palpation and nontender <Mattie Roberts PA-C Gina Last Filed: 10/06/20 19:38> Skin: General skin exam: no rashes or lesions noted <Mattie Roberts PA-C Gina Last Filed: 10/06/20 19:38> Extrem: General: Yes pedal edema (1+ bilaterally) <Mattie Roberts PA-C Gina Last Filed: 10/06/20 19:38> Results Labs CBC and Chem 7: : 10/07/20 05:21 10/07/20 05:21 <Mattie Roberts PA-C - Last Filed: 10/06/20 19:38> Labs: Laboratory Results - last 24 hr 10/05/20 10/05/20 10/05/20 17:32 18:07 18:07 MCV 97.3 MCH 25.9 L MCHC 26.6 L RDW 18.0 H Plt Count 377 MPV 9.2 L Immature Gran % (Auto) 4.6 H Neut % (Auto) 72.8 Lymph % (Auto) 14.6 L Ogle % (Auto) 7.3 Eos % (Auto) 0.1 Baso % (Auto) 0.6 Lymph # (Auto) 1.7 Ogle # (Auto) 0.8 Eos # (Auto) 0.0 Baso # (Auto) 0.1 Abs Immat Gran (auto) 0.52 H Absolute Neuts (auto) 8.2 Absolute Nucleated RBC 0.060 H Nucleated RBC % (auto) 0.5 H PT 12.4 INR 1.0 APTT 35.3 O2 Saturation 86.0 ABG pH at Pt Temp 7.15 L* ABG pH (Temp Correct) 7.16 L* ABG pCO2 at Pt Temp 109 H* ABG pCO2 (Temp Corrct 108 H* ABG pO2 at Pt Temp 63 L ABG pO2 (Temp Correct 63 L ABG HCO3 39 H ABG Base Excess (Actual) 6.7 VBG pH VBG pCO2 VBG pO2 VBG HCO3 VBG O2 Saturation VBG Base Excess Anion Gap Estim Creat Clear Calc Estimated GFR Random Glucose Lactic Acid Calcium Ferritin Total Bilirubin AST ALT Alkaline Phosphatase Lactate Dehydrogenase Troponin I High Sens C-Reactive Protein B-Natriuretic Peptide Total Protein Albumin Procalcitonin Urine Color Urine Appearance Urine pH Ur Specific [place] Urine Protein Urine Glucose (UA) Urine Ketones Urine Blood Urine Nitrite Ur Leukocyte Esterase Urine RBC Urine WBC Ur Squamous Epith Cells Urine Bacteria Coronavirus (PCR) Influenza Type A (PCR) Influenza Type B (PCR) RSV RNA Qual (PCR) 10/05/20 10/05/20 10/05/20 18:07 18:07 18:07 MCV MCH MCHC RDW Plt Count MPV Immature Gran % (Auto) Neut % (Auto) Lymph % (Auto) Ogle % (Auto) Eos % (Auto) Baso % (Auto) Lymph # (Auto) Ogle # (Auto) Eos # (Auto) Baso # (Auto) Abs Immat Gran (auto) Absolute Neuts (auto) Absolute Nucleated RBC Nucleated RBC % (auto) PT INR APTT O2 Saturation ABG pH at Pt Temp ABG pH (Temp Correct) ABG pCO2 at Pt Temp ABG pCO2 (Temp Corrct ABG pO2 at Pt Temp ABG pO2 (Temp Correct ABG HCO3 ABG Base Excess (Actual) VBG pH VBG pCO2 VBG pO2 VBG HCO3 VBG O2 Saturation VBG Base Excess Anion Gap 14 Estim Creat Clear Calc 65.9 Estimated GFR 57 Random Glucose 114 Lactic Acid 1.1 Calcium 8.4 D Ferritin 107 Total Bilirubin 0.3 AST 12 D ALT < 6 Alkaline Phosphatase 112 Lactate Dehydrogenase 218 Troponin I High Sens 14.5 D C-Reactive Protein 3.34 H B-Natriuretic Peptide 977 H Total Protein 6.9 Albumin 3.6 Procalcitonin Urine Color Urine Appearance Urine pH Ur Specific [place] Urine Protein Urine Glucose (UA) Urine Ketones Urine Blood Urine Nitrite Ur Leukocyte Esterase Urine RBC Urine WBC Ur Squamous Epith Cells Urine Bacteria Coronavirus (PCR) Influenza Type A (PCR) Influenza Type B (PCR) RSV RNA Qual (PCR) 10/05/20 10/05/20 10/05/20 18:07 18:07 19:24 MCV MCH MCHC RDW Plt Count MPV Immature Gran % (Auto) Neut % (Auto) Lymph % (Auto) Ogle % (Auto) Eos % (Auto) Baso % (Auto) Lymph # (Auto) Ogle # (Auto) Eos # (Auto) Baso # (Auto) Abs Immat Gran (auto) Absolute Neuts (auto) Absolute Nucleated RBC Nucleated RBC % (auto) PT INR APTT O2 Saturation ABG pH at Pt Temp ABG pH (Temp Correct) ABG pCO2 at Pt Temp ABG pCO2 (Temp Corrct ABG pO2 at Pt Temp ABG pO2 (Temp Correct ABG HCO3 ABG Base Excess (Actual) VBG pH VBG pCO2 VBG pO2 VBG HCO3 VBG O2 Saturation VBG Base Excess Anion Gap Estim Creat Clear Calc Estimated GFR Random Glucose Lactic Acid Calcium Ferritin Total Bilirubin AST ALT Alkaline Phosphatase Lactate Dehydrogenase Troponin I High Sens C-Reactive Protein B-Natriuretic Peptide Total Protein Albumin Procalcitonin 0.08 Urine Color YELLOW Urine Appearance CLEAR Urine pH 6.0 Ur Specific [place] >= 1.030 H Urine Protein 2+ H Urine Glucose (UA) NEG Urine Ketones NEG Urine Blood NEG Urine Nitrite NEG Ur Leukocyte Esterase NEG Urine RBC 0 Urine WBC 0 Ur Squamous Epith Cells TRACE Urine Bacteria NONE Coronavirus (PCR) NEGATIVE Influenza Type A (PCR) NEGATIVE Influenza Type B (PCR) NEGATIVE RSV RNA Qual (PCR) NEGATIVE 10/05/20 20:34 MCV MCH MCHC RDW Plt Count MPV Immature Gran % (Auto) Neut % (Auto) Lymph % (Auto) Ogle % (Auto) Eos % (Auto) Baso % (Auto) Lymph # (Auto) Ogle # (Auto) Eos # (Auto) Baso # (Auto) Abs Immat Gran (auto) Absolute Neuts (auto) Absolute Nucleated RBC Nucleated RBC % (auto) PT INR APTT O2 Saturation ABG pH at Pt Temp ABG pH (Temp Correct) ABG pCO2 at Pt Temp ABG pCO2 (Temp Corrct ABG pO2 at Pt Temp ABG pO2 (Temp Correct ABG HCO3 ABG Base Excess (Actual) VBG pH 7.25 L VBG pCO2 87 VBG pO2 57 VBG HCO3 38 H VBG O2 Saturation 86.0 VBG Base Excess 8.6 Anion Gap Estim Creat Clear Calc Estimated GFR Random Glucose Lactic Acid Calcium Ferritin Total Bilirubin AST ALT Alkaline Phosphatase Lactate Dehydrogenase Troponin I High Sens C-Reactive Protein B-Natriuretic Peptide Total Protein Albumin Procalcitonin Urine Color Urine Appearance Urine pH Ur Specific [place] Urine Protein Urine Glucose (UA) Urine Ketones Urine Blood Urine Nitrite Ur Leukocyte Esterase Urine RBC Urine WBC Ur Squamous Epith Cells Urine Bacteria Coronavirus (PCR) Influenza Type A (PCR) Influenza Type B (PCR) RSV RNA Qual (PCR) <Mattie Roberts PA-C - Last Filed: 10/06/20 19:38> Imaging Radiologist's Impressions: Impressions Cervical Spine CT 10/05/20 17:00 IMPRESSION: CT head: - No acute intracranial abnormality. CT cervical spine: - Motion degraded examination, limiting sensitivity. No definite fracture or traumatic malalignment identified. No high-grade osseous encroachment on the spinal canal or neural foramina. If more sensitive evaluation is needed or if there is high concern for injury, consider repeat examination. Head CT 10/05/20 17:00 IMPRESSION: CT head: - No acute intracranial abnormality. CT cervical spine: - Motion degraded examination, limiting sensitivity. No definite fracture or traumatic malalignment identified. No high-grade osseous encroachment on the spinal canal or neural foramina. If more sensitive evaluation is needed or if there is high concern for injury, consider repeat examination. Chest X-Ray 10/05/20 17:25 IMPRESSION: Cardiomegaly with possible mild pulmonary vascular congestion. Left lower lobe consolidation/collapse/atelectasis with associated pleural effusion. <Mattie Roberts PA-C - Last Filed: 10/06/20 19:38> Assessment and Plan (1) Status post lobectomy of lung: Status: Chronic <DAVE Faustin Last Filed: 10/06/20 19:38> (2) Lethargy: Status: Acute <DAVE Faustin Last Filed: 10/06/20 19:38> After patient's VBG went back to her baseline, she was still obtunded. Her records indicated that she is on Percocet 5XD for pain after her lobectomy. we gave her 0.4 Narcan and she woke up right away. U tox was not done yet so I ordered it with an expanded opiate panel. The patient is also on chronic benzodiazepines. Patient was then highly agitated so we gave her 0.5mg clonazepam PO (is on this TID at home) and put her on a Precedex drip until the clonazepam starts working as she ripped out an IV and remained agitated. <Mattie Roberts PA-C - Last Filed: 10/06/20 19:38> (3) Respiratory failure with hypoxia and hypercapnia: Status: Acute <DAVE Faustin Last Filed: 10/06/20 19:38> monitor VBG's, Duo nebs and steroids. <DAVE Faustin Last Filed: 10/06/20 19:38> (4) IVY (obstructive sleep apnea): Status: Acute <DAVE Faustin Last Filed: 10/06/20 19:38> Pt remains on BiPAP <Mattie Roberts PA-C - Last Filed: 10/06/20 19:38> (5) GERD (gastroesophageal reflux disease): Status: Acute <Mattie Roberts PA-C - Last Filed: 10/06/20 19:38> 20mg omeprazole daily <Mattie Roebrts PA-C - Last Filed: 10/06/20 19:38> (6) Adenocarcinoma of sigmoid colon: Status: Acute <Mattie Roberts PA-C - Last Filed: 10/06/20 19:38> Patient states she has surgery scheduled for December 27 <Mattie Roberts PA-C - Last Filed: 10/06/20 19:38> (7) CHF exacerbation: Status: Acute <Mattie Roberts PA-C - Last Filed: 10/06/20 19:38> Moniotr I&O, lasix as needed. Pt remains on BiPAP <Mattie Roberts PA-C - Last Filed: 10/06/20 19:38> (8) Opioid overdose: Status: Acute <Mattie Roberts PA-C - Last Filed: 10/06/20 19:38> narcan given <Mattie Roberts PA-C - Last Filed: 10/06/20 19:38> (9) Bilateral pneumonia: Status: Acute <Mattie Roberts PA-C - Last Filed: 10/06/20 19:38> Ceftriaxone and doxy as her her most recent pneumonia Rx recommendation by ID, pt remains on BiPAP. monitor labs and vitals. <Mattie Roberts PA-C - Last Filed: 10/06/20 19:38> Critical Care Time Critical Care Time (minutes): 60 <Jeison Montez MD - Last Filed: 10/07/20 10:37>
--- NOTE | 2020-10-05 21:51 | PC.NURSE ---
UO from polo -> 1100 ml. Pt remains drowsy in bed, resting on bipap @ this time. Bipap settings remain 20/5, 80%. VSS at this time. Awaiting ICU bed assignment. Continue to monitor.
--- NOTE | 2020-10-05 22:02 | PC.NURSE ---
Report given to Shaina. Plan for CT and transport to ICU.
[2020-10-05] MEDS: methylPREDNISolone Sod Succ 125 MG/2 ML VIAL 80 MG IVPUSH (23:43)
[2020-10-06] VITALS (31 sets, daily range): BP systolic 103–150; BP diastolic 55–99; PULSE 75–160; RESP 16–35; TEMP 37.3–38.1; O2SAT 84–100; BMI 35.7
[2020-10-06 00:17] LABS: VBG Base Excess 14.9 mmol/L; VBG HCO3 43 mmol/L (22-26); VBG pCO2 72 mmHg; VBG pH 7.37 (7.32-7.43); VBG pO2 45 mmHg
[2020-10-06] MEDS: Naloxone HCl 0.4 MG/ML VIAL IVPUSH (01:19)
[2020-10-06] MEDS: cefTRIAXone sodium 1 GM in 0.9 % Sodium Chloride 50 ML IV (01:19)
[2020-10-06] MEDS: Doxycycline Hyclate 100 MG in 0.9 % Sodium Chloride 250 ML 166.67 MG IV (01:19)
[2020-10-06] MEDS: clonazePAM 0.5 MG TABLET PO (01:19)
[2020-10-06] MEDS: dexmedeTOMIDidine HCL/NS 400 MCG/100 ML INFUS..BTL 12.93 MCG IVCONT (01:45)
[2020-10-06 01:46] LABS: Amphetamine Screen Urine Not Detected (Not Detect); Barbiturates, Urine Not Detected (Not Detect); Benzodiazepines Screen Urine Not Detected (Not Detect); Cannabinoid Screen Urine Not Detected (Not Detect); Cocaine Screen Urine Not Detected (Not Detect); Opiate Screen Urine POSITIVE (Not Detect); Phencyclidine Screen Urine Not Detected (Not Detect)
[2020-10-06 02:04] LABS: Venous Blood Gas Refer to POC result
[2020-10-06 05:24] LABS: VBG Base Excess 13.8 mmol/L; VBG HCO3 40 mmol/L (22-26); VBG pCO2 62 mmHg; VBG pH 7.42 (7.32-7.43); VBG pO2 40 mmHg
[2020-10-06 05:27] LABS: Venous Blood Gas Refer to POC result
[2020-10-06 05:46] LABS: Basophils Percent Auto 0.2 % (0-2); Hematocrit 34.3 % (37-47); Hemoglobin 9.3 g/dl (12.0-16.0); Imm Gran Abs Auto 0.28 X10*3/uL (0.00-0.03); Imm Gran Pct Auto 2.1 % (0.0-0.4); Lymphocytes Absolute Auto 0.6 X10*3/uL (1.2-4.9); Lymphocytes Percent Auto 4.6 % (20-40); MANUAL DIFF FLAG SCAN; Mean Corpuscular HGB Conc 27.1 g/dl (31.0-35.0); Mean Corpuscular Hemoglobin 25.8 pg (27.0-33.0); Mean Platelet Volume 9.3 fL (9.4-12.3); Monocytes Absolute Auto 0.3 X10*3/uL (0.1-1.2); Monocytes Percent Auto 1.9 % (2-11); NRBC Pct Auto 0.4 /100WBC (0.0-0.2); Neutrophils Absolute Auto 12.3 X10*3/uL (2.0-8.3); Neutrophils Percent Auto 91.2 % (45-73); Platelet Count 374 X10*3/uL (160-400); Red Blood Count 3.61 X10*6/uL (4.20-5.50); Red Cell Distribution Width 17.2 % (11.0-16.0); SCAN SMEAR FLAG 1; White Blood Count 13.5 X10*3/uL (4.8-10.8)
[2020-10-06 06:09] LABS: Anion Gap 15 (12-20); Blood Urea Nitrogen 11 mg/dL (9-16); C Reactive Protein 3.77 mg/dL (< or = 0.50); Calcium 8.2 mg/dL (8.4-10.2); Carbon Dioxide 32 mmol/L (22-29); Chloride 99 mmol/L (96-108); Creatinine Clr Calc Pharmacy 72.1; Estimated Glomerular Filt Rate 60; Glucose Random 114 mg/dL (60-115); Magnesium 1.6 mg/dL (1.6-2.6); Potassium 4.7 mmol/L (3.3-5.1); Sodium 141 mmol/L (135-145)
[2020-10-06 06:13] LABS: B Type Natriuretic Peptide 810 pg/mL (<100)
[2020-10-06 07:21] LABS: SLIDE REVIEW VERIFIED
[2020-10-06] MEDS: levoFLOXacin/D5W 500 MG/100 ML PIGGYBACK 100 MG IV (08:11)
--- NOTE | 2020-10-06 08:59 | MHC.CLN ---
RECOMMEND 2GM NA DIET R/T HX CHF/CAD
[2020-10-06 10:06] LABS: VBG Base Excess 17.1 mmol/L; VBG HCO3 45 mmol/L (22-26); VBG pCO2 77 mmHg; VBG pH 7.37 (7.32-7.43); VBG pO2 30 mmHg
[2020-10-06 10:19] LABS: Venous Blood Gas Refer to POC result
[2020-10-06] MEDS: methylPREDNISolone Sod Succ 125 MG/2 ML VIAL 80 MG IVPUSH ×2 (10:45→23:17)
[2020-10-06] MEDS: Famotidine/PF 20 MG/2 ML VIAL IVPUSH (10:45)
--- NOTE | 2020-10-06 12:31 | MHC.CM.PN ---
pt lives c her in their home. she reports that he helps her c needs she may have, this will include a ride home at [place]. pt also reports being active c the [facility] for nsg - a ref. has been made for this; she also claims they provide her c a 2x/wk finance attorney. she has a cpap which she claims is difficult to use and home o2 provided by [facility]. dc plan is for her to return home c all of these existing svcs. cm to cont. to follow.
[2020-10-06] MEDS: traMADoL HCL 50 MG TABLET 25 MG PO ×2 (13:04→22:57)
[2020-10-06] MEDS: clonazePAM 0.5 MG TABLET 0.25 MG PO ×2 (13:06→21:50)
[2020-10-06] MEDS: dilTIAZem HCL 125 MG in 0.9 % Sodium Chloride 100 ML IVCONT (14:25)
--- NOTE | 2020-10-06 15:13 | P.PNCC_ITS ---
Subjective Subjective Date of Service: 10/06/20 Interval History: 55-year-old moderately obese female with probable underlying bipolar disease on divalproex as well as aripiprazole and duloxetine with underlying obstructive sleep apnea and COPD is approximately 1 month status post left lower lobectomy for carcinoma and apparently is pending a colonic resection for an adenocarcinoma which was presented as a bleeding issue and presented with acute on chronic hypercarbic and hypoxic respiratory failure with altered mental status with very depressed sensorium and apparently has been taking combinations of Klonopin along with oxycodone of 5 mg dose but we do not know how much at a time and her sensorium completely reversed with 1 dose of Narcan and she apparently remained overnight on noninvasive ventilation and and the acute could hypercarbic component seems to have resolved mental status is somewhat more restored more responsive but of course she immediately complains of of a cr ushing chest pain and pretty agitated with increasingly frequent and APCs and then a paroxysm of atrial fib with rate of 140 and I do believe we have some early manifestations of withdrawal so I started her on a combination of clonazepam 0.25 mg along with tramadol 50 mg and she seems to be tolerating that and spontaneously converted back to normal sinus rhythm Off BiPAP pCO2 climbed back into the 70s we started her on on a high-flow nasal catheter at 40 liters/minute current blood gas 7.4 with pCO2 of 49 and therefore more comfortable and her oxygen saturation as result is 91% respiratory rate is only 21 and blood pressure 144/69 Physical Exam Vital Signs: Vital Signs: Last Vital Signs Temp 100.4 F 10/06/20 13:00 Pulse 93 10/06/20 14:00 Resp 26 H 10/06/20 14:00 BP 140/99 H 10/06/20 14:00 Pulse Ox 90 L 10/06/20 14:00 Body Mass Index 35.7 Const: Other: More awake and oriented easily arousable nonfocal neurologically Cardiac exam normal bedside echo no significant systolic or diastolic reserve problems Diminished breath sounds bilaterally but no adventitious sounds Benign abdomen with good bowel sounds and no organomegaly No significant edema although she did present with an inexplicably high BNP and was given just 1 dose of diuretic and produced 1100 cc of urine and I failed to see any increased work of breathing in other words no use of diaphragm for expir ation and no accessory muscle use CT scan of the chest showed a small left pleural collection but bibasilar consolidation/infiltrate a pattern consistent with aspiration but more than 1 month out of the hospital Objective Data Labs CBC & Chem 7: 10/06/20 05:14 10/06/20 05:14 Labs: Laboratory Results - last 24 hr 10/05/20 10/05/20 10/05/20 17:32 18:07 18:07 WBC 11.3 H RBC 3.71 L Hgb 9.6 L Hct 36.1 L D MCV 97.3 MCH 25.9 L MCHC 26.6 L RDW 18.0 H Plt Count 377 MPV 9.2 L Immature Gran % (Auto) 4.6 H Neut % (Auto) 72.8 Lymph % (Auto) 14.6 L [place] % (Auto) 7.3 Eos % (Auto) 0.1 Baso % (Auto) 0.6 Lymph # (Auto) 1.7 [place] # (Auto) 0.8 Eos # (Auto) 0.0 Baso # (Auto) 0.1 Abs Immat Gran (auto) 0.52 H Absolute Neuts (auto) 8.2 Absolute Nucleated RBC 0.060 H Nucleated RBC % (auto) 0.5 H Smear Tech's Comments PT 12.4 INR 1.0 APTT 35.3 O2 Saturation 86.0 ABG pH at Pt Temp 7.15 L* ABG pH (Temp Correct) 7.16 L* ABG pCO2 at Pt Temp 109 H* ABG pCO2 (Temp Corrct 108 H* ABG pO2 at Pt Temp 63 L ABG pO2 (Temp Correct 63 L ABG HCO3 39 H ABG Base Excess (Actual) 6.7 VBG pH VBG pCO2 VBG pO2 VBG HCO3 VBG O2 Saturation VBG Base Excess Sodium Potassium Chloride Carbon Dioxide Anion Gap BUN Creatinine Estim Creat Clear Calc Estimated GFR Random Glucose Lactic Acid Calcium Phosphorus Magnesium Ferritin Total Bilirubin AST ALT Alkaline Phosphatase Lactate Dehydrogenase Troponin I High Sens C-Reactive Protein B-Natriuretic Peptide Total Protein Albumin Procalcitonin Urine Color Urine Appearance Urine pH Ur Specific [place] Urine Protein Urine Glucose (UA) Urine Ketones Urine Blood Urine Nitrite Ur Leukocyte Esterase Urine RBC Urine WBC Ur Squamous Epith Cells Urine Bacteria Urine Opiates Screen Ur Barbiturates Screen Ur Phencyclidine Scrn Ur Amphetamines Screen U Benzodiazepines Scrn Urine Cocaine Screen U Marijuana (THC) Screen Coronavirus (PCR) Influenza Type A (PCR) Influenza Type B (PCR) RSV RNA Qual (PCR) 10/05/20 10/05/20 10/05/20 18:07 18:07 18:07 WBC RBC Hgb Hct MCV MCH MCHC RDW Plt Count MPV Immature Gran % (Auto) Neut % (Auto) Lymph % (Auto) [place] % (Auto) Eos % (Auto) Baso % (Auto) Lymph # (Auto) [place] # (Auto) Eos # (Auto) Baso # (Auto) Abs Immat Gran (auto) Absolute Neuts (auto) Absolute Nucleated RBC Nucleated RBC % (auto) Smear Tech's Comments PT INR APTT O2 Saturation ABG pH at Pt Temp ABG pH (Temp Correct) ABG pCO2 at Pt Temp ABG pCO2 (Temp Corrct ABG pO2 at Pt Temp ABG pO2 (Temp Correct ABG HCO3 ABG Base Excess (Actual) VBG pH VBG pCO2 VBG pO2 VBG HCO3 VBG O2 Saturation VBG Base Excess Sodium 141 Potassium 4.2 D Chloride 98 Carbon Dioxide 33 H Anion Gap 14 BUN 10 Creatinine 1.00 Estim Creat Clear Calc 65.9 Estimated GFR 57 Random Glucose 114 Lactic Acid 1.1 Calcium 8.4 D Phosphorus Magnesium Ferritin 107 Total Bilirubin 0.3 AST 12 D ALT < 6 Alkaline Phosphatase 112 Lactate Dehydrogenase 218 Troponin I High Sens 14.5 D C-Reactive Protein 3.34 H B-Natriuretic Peptide 977 H Total Protein 6.9 Albumin 3.6 Procalcitonin Urine Color Urine Appearance Urine pH Ur Specific [place] Urine Protein Urine Glucose (UA) Urine Ketones Urine Blood Urine Nitrite Ur Leukocyte Esterase Urine RBC Urine WBC Ur Squamous Epith Cells Urine Bacteria Urine Opiates Screen Ur Barbiturates Screen Ur Phencyclidine Scrn Ur Amphetamines Screen U Benzodiazepines Scrn Urine Cocaine Screen U Marijuana (THC) Screen Coronavirus (PCR) Influenza Type A (PCR) Influenza Type B (PCR) RSV RNA Qual (PCR) 10/05/20 10/05/20 10/05/20 18:07 18:07 19:24 WBC RBC Hgb Hct MCV MCH MCHC RDW Plt Count MPV Immature Gran % (Auto) Neut % (Auto) Lymph % (Auto) [place] % (Auto) Eos % (Auto) Baso % (Auto) Lymph # (Auto) [place] # (Auto) Eos # (Auto) Baso # (Auto) Abs Immat Gran (auto) Absolute Neuts (auto) Absolute Nucleated RBC Nucleated RBC % (auto) Smear Tech's Comments PT INR APTT O2 Saturation ABG pH at Pt Temp ABG pH (Temp Correct) ABG pCO2 at Pt Temp ABG pCO2 (Temp Corrct ABG pO2 at Pt Temp ABG pO2 (Temp Correct ABG HCO3 ABG Base Excess (Actual) VBG pH VBG pCO2 VBG pO2 VBG HCO3 VBG O2 Saturation VBG Base Excess Sodium Potassium Chloride Carbon Dioxide Anion Gap BUN Creatinine Estim Creat Clear Calc Estimated GFR Random Glucose Lactic Acid Calcium Phosphorus Magnesium Ferritin Total Bilirubin AST ALT Alkaline Phosphatase Lactate Dehydrogenase Troponin I High Sens C-Reactive Protein B-Natriuretic Peptide Total Protein Albumin Procalcitonin 0.08 Urine Color YELLOW Urine Appearance CLEAR Urine pH 6.0 Ur Specific [place] >= 1.030 H Urine Protein 2+ H Urine Glucose (UA) NEG Urine Ketones NEG Urine Blood NEG Urine Nitrite NEG Ur Leukocyte Esterase NEG Urine RBC 0 Urine WBC 0 Ur Squamous Epith Cells TRACE Urine Bacteria NONE Urine Opiates Screen Ur Barbiturates Screen Ur Phencyclidine Scrn Ur Amphetamines Screen U Benzodiazepines Scrn Urine Cocaine Screen U Marijuana (THC) Screen Coronavirus (PCR) NEGATIVE Influenza Type A (PCR) NEGATIVE Influenza Type B (PCR) NEGATIVE RSV RNA Qual (PCR) NEGATIVE 10/05/20 10/06/20 10/06/20 20:34 00:10 00:45 WBC RBC Hgb Hct MCV MCH MCHC RDW Plt Count MPV Immature Gran % (Auto) Neut % (Auto) Lymph % (Auto) [place] % (Auto) Eos % (Auto) Baso % (Auto) Lymph # (Auto) [place] # (Auto) Eos # (Auto) Baso # (Auto) Abs Immat Gran (auto) Absolute Neuts (auto) Absolute Nucleated RBC Nucleated RBC % (auto) Smear Tech's Comments PT INR APTT O2 Saturation ABG pH at Pt Temp ABG pH (Temp Correct) ABG pCO2 at Pt Temp ABG pCO2 (Temp Corrct ABG pO2 at Pt Temp ABG pO2 (Temp Correct ABG HCO3 ABG Base Excess (Actual) VBG pH 7.25 L 7.37 VBG pCO2 87 72 VBG pO2 57 45 VBG HCO3 38 H 43 H VBG O2 Saturation 86.0 79.0 VBG Base Excess 8.6 14.9 Sodium Potassium Chloride Carbon Dioxide Anion Gap BUN Creatinine Estim Creat Clear Calc Estimated GFR Random Glucose Lactic Acid Calcium Phosphorus Magnesium Ferritin Total Bilirubin AST ALT Alkaline Phosphatase Lactate Dehydrogenase Troponin I High Sens C-Reactive Protein B-Natriuretic Peptide Total Protein Albumin Procalcitonin Urine Color Urine Appearance Urine pH Ur Specific [place] Urine Protein Urine Glucose (UA) Urine Ketones Urine Blood Urine Nitrite Ur Leukocyte Esterase Urine RBC Urine WBC Ur Squamous Epith Cells Urine Bacteria Urine Opiates Screen POSITIVE H Ur Barbiturates Screen Not Detected Ur Phencyclidine Scrn Not Detected Ur Amphetamines Screen Not Detected U Benzodiazepines Scrn Not Detected Urine Cocaine Screen Not Detected U Marijuana (THC) Screen Not Detected Coronavirus (PCR) Influenza Type A (PCR) Influenza Type B (PCR) RSV RNA Qual (PCR) 10/06/20 10/06/20 10/06/20 05:14 05:14 05:14 WBC 13.5 H RBC 3.61 L Hgb 9.3 L Hct 34.3 L MCV 95.0 MCH 25.8 L MCHC 27.1 L RDW 17.2 H Plt Count 374 MPV 9.3 L Immature Gran % (Auto) 2.1 H Neut % (Auto) 91.2 H Lymph % (Auto) 4.6 L [place] % (Auto) 1.9 L Eos % (Auto) 0.0 Baso % (Auto) 0.2 Lymph # (Auto) 0.6 L [place] # (Auto) 0.3 Eos # (Auto) 0.0 Baso # (Auto) 0.0 Abs Immat Gran (auto) 0.28 H Absolute Neuts (auto) 12.3 H Absolute Nucleated RBC 0.050 H Nucleated RBC % (auto) 0.4 H Smear Tech's Comments VERIFIED PT INR APTT O2 Saturation ABG pH at Pt Temp ABG pH (Temp Correct) ABG pCO2 at Pt Temp ABG pCO2 (Temp Corrct ABG pO2 at Pt Temp ABG pO2 (Temp Correct ABG HCO3 ABG Base Excess (Actual) VBG pH VBG pCO2 VBG pO2 VBG HCO3 VBG O2 Saturation VBG Base Excess Sodium 141 Potassium 4.7 Chloride 99 Carbon Dioxide 32 H Anion Gap 15 BUN 11 Creatinine 0.96 Estim Creat Clear Calc 72.1 Estimated GFR 60 Random Glucose 114 Lactic Acid Calcium 8.2 L Phosphorus 4.0 Magnesium 1.6 Ferritin Total Bilirubin AST ALT Alkaline Phosphatase Lactate Dehydrogenase Troponin I High Sens C-Reactive Protein 3.77 H B-Natriuretic Peptide 810 H Total Protein Albumin Procalcitonin Urine Color Urine Appearance Urine pH Ur Specific [place] Urine Protein Urine Glucose (UA) Urine Ketones Urine Blood Urine Nitrite Ur Leukocyte Esterase Urine RBC Urine WBC Ur Squamous Epith Cells Urine Bacteria Urine Opiates Screen Ur Barbiturates Screen Ur Phencyclidine Scrn Ur Amphetamines Screen U Benzodiazepines Scrn Urine Cocaine Screen U Marijuana (THC) Screen Coronavirus (PCR) Influenza Type A (PCR) Influenza Type B (PCR) RSV RNA Qual (PCR) 10/06/20 10/06/20 10/06/20 05:14 05:17 10:00 WBC RBC Hgb Hct MCV MCH MCHC RDW Plt Count MPV Immature Gran % (Auto) Neut % (Auto) Lymph % (Auto) [place] % (Auto) Eos % (Auto) Baso % (Auto) Lymph # (Auto) [place] # (Auto) Eos # (Auto) Baso # (Auto) Abs Immat Gran (auto) Absolute Neuts (auto) Absolute Nucleated RBC Nucleated RBC % (auto) Smear Tech's Comments PT INR APTT O2 Saturation ABG pH at Pt Temp ABG pH (Temp Correct) ABG pCO2 at Pt Temp ABG pCO2 (Temp Corrct ABG pO2 at Pt Temp ABG pO2 (Temp Correct ABG HCO3 ABG Base Excess (Actual) VBG pH 7.42 7.37 VBG pCO2 62 77 VBG pO2 40 30 VBG HCO3 40 H 45 H VBG O2 Saturation 73.0 48.0 VBG Base Excess 13.8 17.1 Sodium Potassium Chloride Carbon Dioxide Anion Gap BUN Creatinine Estim Creat Clear Calc Estimated GFR Random Glucose Lactic Acid Calcium Phosphorus Magnesium Ferritin Total Bilirubin AST ALT Alkaline Phosphatase Lactate Dehydrogenase Troponin I High Sens C-Reactive Protein B-Natriuretic Peptide Total Protein Albumin Procalcitonin 0.10 Urine Color Urine Appearance Urine pH Ur Specific [place] Urine Protein Urine Glucose (UA) Urine Ketones Urine Blood Urine Nitrite Ur Leukocyte Esterase Urine RBC Urine WBC Ur Squamous Epith Cells Urine Bacteria Urine Opiates Screen Ur Barbiturates Screen Ur Phencyclidine Scrn Ur Amphetamines Screen U Benzodiazepines Scrn Urine Cocaine Screen U Marijuana (THC) Screen Coronavirus (PCR) Influenza Type A (PCR) Influenza Type B (PCR) RSV RNA Qual (PCR) 10/06/20 14:56 WBC RBC Hgb Hct MCV MCH MCHC RDW Plt Count MPV Immature Gran % (Auto) Neut % (Auto) Lymph % (Auto) [place] % (Auto) Eos % (Auto) Baso % (Auto) Lymph # (Auto) [place] # (Auto) Eos # (Auto) Baso # (Auto) Abs Immat Gran (auto) Absolute Neuts (auto) Absolute Nucleated RBC Nucleated RBC % (auto) Smear Tech's Comments PT INR APTT O2 Saturation 51.0 ABG pH at Pt Temp 7.40 ABG pH (Temp Correct) ABG pCO2 at Pt Temp 69 H* ABG pCO2 (Temp Corrct ABG pO2 at Pt Temp 32 L* ABG pO2 (Temp Correct ABG HCO3 43 H ABG Base Excess (Actual) 15.6 VBG pH VBG pCO2 VBG pO2 VBG HCO3 VBG O2 Saturation VBG Base Excess Sodium Potassium Chloride Carbon Dioxide Anion Gap BUN Creatinine Estim Creat Clear Calc Estimated GFR Random Glucose Lactic Acid Calcium Phosphorus Magnesium Ferritin Total Bilirubin AST ALT Alkaline Phosphatase Lactate Dehydrogenase Troponin I High Sens C-Reactive Protein B-Natriuretic Peptide Total Protein Albumin Procalcitonin Urine Color Urine Appearance Urine pH Ur Specific [place] Urine Protein Urine Glucose (UA) Urine Ketones Urine Blood Urine Nitrite Ur Leukocyte Esterase Urine RBC Urine WBC Ur Squamous Epith Cells Urine Bacteria Urine Opiates Screen Ur Barbiturates Screen Ur Phencyclidine Scrn Ur Amphetamines Screen U Benzodiazepines Scrn Urine Cocaine Screen U Marijuana (THC) Screen Coronavirus (PCR) Influenza Type A (PCR) Influenza Type B (PCR) RSV RNA Qual (PCR) Progress Note: A&P Assessment and plan (1) Bilateral pneumonia: Status: Acute (2) Opioid overdose: Status: Acute (3) CHF exacerbation: Status: Acute (4) Adenocarcinoma of sigmoid colon: Status: Acute (5) Status post lobectomy of lung: Status: Chronic (6) Hypernatremia: Status: Acute (7) Lethargy: Status: Acute (8) Pleural effusion, left: Status: Acute (9) GI bleed: Status: Acute (10) Colon cancer: Status: Acute (11) IVY (obstructive sleep apnea): Status: Acute (12) GERD (gastroesophageal reflux disease): Status: Acute (13) Acute and chronic respiratory failure: Problem details: H/o ICU admission but no intubation Status: Acute (14) COPD (chronic obstructive pulmonary disease): Status: Acute (15) Obesity: Problem details: This is a chronic problem and due to her impaired walking, she would not be able to do much exercise. No significant weight reduction is expected Status: Acute (16) Hypoventilation associated with obesity: Problem details: weight reduction and deep breathing exercises should help . She needs noninvasive ventilatory support with CPAP or BIPAP . Claims that her device is not working well, or it seems that she does not really know how to use it. Anyway she is not using her ventilatory support at night. Status: Acute (17) Respiratory failure with hypoxia and hypercapnia: Status: Acute Assessment and Plan: So far she is doing well on the nasal high-flow and despite the combination of tramadol and a much smaller dose of clonazepam and will continue antibiotics for outpatient aspiration but no anticoagulants because of the bleeding history from the colonic carcinoma and will just maintain the mechanical DVT prophylaxis
[2020-10-06 15:18] LABS: Venous Blood Gas Refer to POC result
[2020-10-06] MEDS: dilTIAZem HCL 50 MG/10 ML VIAL 25 MG IVPUSH (18:36)
[2020-10-07] VITALS (29 sets, daily range): BP systolic 104–176; BP diastolic 65–84; PULSE 71–122; RESP 15–28; TEMP 36.4–37.7; O2SAT 90–99; BMI 34.9
[2020-10-07] MEDS: LORazepam 2 MG/ML VIAL 0.5 MG IVPUSH (00:15)
[2020-10-07 05:29] LABS: VBG Base Excess 16.1 mmol/L; VBG HCO3 41 mmol/L (22-26); VBG pCO2 51 mmHg; VBG pH 7.51 (7.32-7.43); VBG pO2 57 mmHg
[2020-10-07 06:05] LABS: Basophils Percent Auto 0.1 % (0-2); Hematocrit 30.5 % (37-47); Hemoglobin 8.8 g/dl (12.0-16.0); Imm Gran Abs Auto 0.11 X10*3/uL (0.00-0.03); Imm Gran Pct Auto 1.2 % (0.0-0.4); Lymphocytes Absolute Auto 0.6 X10*3/uL (1.2-4.9); Lymphocytes Percent Auto 6.8 % (20-40); MANUAL DIFF FLAG SCAN; Mean Corpuscular HGB Conc 28.9 g/dl (31.0-35.0); Mean Corpuscular Hemoglobin 25.9 pg (27.0-33.0); Mean Corpuscular Volume 89.7 fL (80-98); Mean Platelet Volume 9.2 fL (9.4-12.3); Monocytes Absolute Auto 0.2 X10*3/uL (0.1-1.2); Monocytes Percent Auto 1.7 % (2-11); NRBC Pct Auto 0.2 /100WBC (0.0-0.2); Neutrophils Absolute Auto 8.3 X10*3/uL (2.0-8.3); Neutrophils Percent Auto 90.2 % (45-73); Platelet Count 368 X10*3/uL (160-400); Red Cell Distribution Width 17.2 % (11.0-16.0); SCAN SMEAR FLAG 1; White Blood Count 9.3 X10*3/uL (4.8-10.8)
[2020-10-07] MEDS: Omeprazole 20 MG CAPSULE.DR PO (06:11)
[2020-10-07] MEDS: levoFLOXacin/D5W 500 MG/100 ML PIGGYBACK 100 MG IV (06:17)
[2020-10-07 06:32] LABS: B Type Natriuretic Peptide 1687 pg/mL (<100)
[2020-10-07 06:36] LABS: Anion Gap 13 (12-20); Blood Urea Nitrogen 16 mg/dL (9-16); Calcium 8.6 mg/dL (8.4-10.2); Carbon Dioxide 35 mmol/L (22-29); Chloride 98 mmol/L (96-108); Creatinine Clr Calc Pharmacy 87.6; Estimated Glomerular Filt Rate > 60; Glucose Random 136 mg/dL (60-115); Magnesium 1.4 mg/dL (1.6-2.6); Sodium 142 mmol/L (135-145)
[2020-10-07 06:44] LABS: SLIDE REVIEW VERIFIED
[2020-10-07 06:55] LABS: Partial Thromboplastin Time 31.7 SEC (24.1-38.0)
[2020-10-07 06:56] LABS: INTERNATIONAL NORM RATIO 1.1 (0.9-1.1)
[2020-10-07] MEDS: clonazePAM 0.5 MG TABLET 0.25 MG PO ×2 (07:26→21:14)
[2020-10-07] MEDS: Magnesium Sulfate/H2O 2 GM/50 ML PIGGYBACK IV (07:28)
[2020-10-07] MEDS: dilTIAZem HCL CD 180 MG CAP.ER.24H PO (07:28)
[2020-10-07] MEDS: traMADoL HCL 50 MG TABLET 25 MG PO ×2 (07:41→15:00)
[2020-10-07 07:48] LABS: Venous Blood Gas Refer to POC result
[2020-10-07 10:04] LABS: VBG Base Excess 15.6 mmol/L; VBG HCO3 43 mmol/L (22-26); VBG pCO2 69 mmHg; VBG pO2 32 mmHg
--- NOTE | 2020-10-07 10:15 | PM.CCPN ---
Subjective Subjective Date of Service: 10/07/20 Interval History: 55-year-old moderately obese hypertensive with COPD and obstructive sleep apnea was 1 month status post left lower lobectomy for poorly differentiated adenocarcinoma of the lung presented with altered mental status significantly obtunded with acute on chronic hypercarbic and hypoxic respiratory failure but was on a combination of clonazepam as well as oxycodone Supported for a while with the BiPAP as medicines diminished and she was noted to have bilateral lower lobe pneumonia consistent with aspiration and therefore is on antibiotic treatment And alert doing well pCO2 in the 50s after nocturnal BiPAP and is now up and eating just on nasal cannula oxygen but might still need p.r.n. nocturnal support with BiPAP Physical Exam Vital Signs: Vital Signs: Last Vital Signs Temp 99.1 F 10/07/20 09:58 Pulse 114 H 10/07/20 09:58 Resp 28 H 10/07/20 09:58 BP 176/84 H 10/07/20 09:58 Pulse Ox 95 10/07/20 09:58 Body Mass Index 34.9 Const: Other: Awake alert and oriented and nonfocal neurologically Cardiac exam with no neck vein distension no gallops and good bilateral carotid upstrokes but hypertensive Paroxysmal atrial flutter with intermittent high rate response up to 140 currently on low-dose IV Cardizem of 5 milligrams/hour plus oral long-acting Cardizem was started Chest with diminished breath sounds bilaterally but no adventitious sounds no accessory muscle use Abdomen benign no organomegaly and good bowel sounds Peripherally no edema no acrocyanosis Objective Data Labs CBC & Chem 7: 10/07/20 05:21 10/07/20 05:21 Labs: Laboratory Results - last 24 hr 10/06/20 10/06/20 10/07/20 14:56 14:56 05:21 WBC 9.3 RBC 3.40 L Hgb 8.8 L Hct 30.5 L MCV 89.7 D MCH 25.9 L MCHC 28.9 L RDW 17.2 H Plt Count 368 MPV 9.2 L Immature Gran % (Auto) 1.2 H Neut % (Auto) 90.2 H Lymph % (Auto) 6.8 L [place] % (Auto) 1.7 L Eos % (Auto) 0.0 Baso % (Auto) 0.1 Lymph # (Auto) 0.6 L [place] # (Auto) 0.2 Eos # (Auto) 0.0 Baso # (Auto) 0.0 Abs Immat Gran (auto) 0.11 H Absolute Neuts (auto) 8.3 Absolute Nucleated RBC 0.020 H Nucleated RBC % (auto) 0.2 Smear Tech's Comments VERIFIED PT INR APTT O2 Saturation 51.0 ABG pH at Pt Temp 7.40 ABG pCO2 at Pt Temp 69 H* ABG pO2 at Pt Temp 32 L* ABG HCO3 43 H ABG Base Excess (Actual) 15.6 VBG pH 7.40 VBG pCO2 69 VBG pO2 32 VBG HCO3 43 H VBG O2 Saturation 51.0 VBG Base Excess 15.6 Sodium Potassium Chloride Carbon Dioxide Anion Gap BUN Creatinine Estim Creat Clear Calc Estimated GFR Random Glucose Calcium Phosphorus Magnesium B-Natriuretic Peptide 10/07/20 10/07/20 10/07/20 05:21 05:21 05:21 WBC RBC Hgb Hct MCV MCH MCHC RDW Plt Count MPV Immature Gran % (Auto) Neut % (Auto) Lymph % (Auto) [place] % (Auto) Eos % (Auto) Baso % (Auto) Lymph # (Auto) [place] # (Auto) Eos # (Auto) Baso # (Auto) Abs Immat Gran (auto) Absolute Neuts (auto) Absolute Nucleated RBC Nucleated RBC % (auto) Smear Tech's Comments PT 13.0 INR 1.1 APTT 31.7 O2 Saturation ABG pH at Pt Temp ABG pCO2 at Pt Temp ABG pO2 at Pt Temp ABG HCO3 ABG Base Excess (Actual) VBG pH VBG pCO2 VBG pO2 VBG HCO3 VBG O2 Saturation VBG Base Excess Sodium 142 Potassium 4.0 Chloride 98 Carbon Dioxide 35 H Anion Gap 13 BUN 16 Creatinine 0.79 Estim Creat Clear Calc 87.6 Estimated GFR > 60 Random Glucose 136 H Calcium 8.6 Phosphorus 3.0 Magnesium 1.4 L* B-Natriuretic Peptide 1687 H 10/07/20 05:22 WBC RBC Hgb Hct MCV MCH MCHC RDW Plt Count MPV Immature Gran % (Auto) Neut % (Auto) Lymph % (Auto) [place] % (Auto) Eos % (Auto) Baso % (Auto) Lymph # (Auto) [place] # (Auto) Eos # (Auto) Baso # (Auto) Abs Immat Gran (auto) Absolute Neuts (auto) Absolute Nucleated RBC Nucleated RBC % (auto) Smear Tech's Comments PT INR APTT O2 Saturation ABG pH at Pt Temp ABG pCO2 at Pt Temp ABG pO2 at Pt Temp ABG HCO3 ABG Base Excess (Actual) VBG pH 7.51 H VBG pCO2 51 VBG pO2 57 VBG HCO3 41 H VBG O2 Saturation 88.0 VBG Base Excess 16.1 Sodium Potassium Chloride Carbon Dioxide Anion Gap BUN Creatinine Estim Creat Clear Calc Estimated GFR Random Glucose Calcium Phosphorus Magnesium B-Natriuretic Peptide Microbiology Microbiology Results: Microbiology 10/05/20 18:17 Blood - Venous Blood Culture - Preliminary No growth after 24 hours. 10/05/20 18:07 Blood - Venous Blood Culture - Preliminary No growth after 24 hours. Progress Note: A&P Assessment and plan (1) Atrial flutter with rapid ventricular response: Status: Acute (2) Bilateral pneumonia: Status: Acute (3) Opioid overdose: Status: Acute (4) CHF exacerbation: Status: Acute (5) Adenocarcinoma of sigmoid colon: Status: Acute (6) Status post lobectomy of lung: Status: Chronic (7) Hypernatremia: Status: Acute (8) Lethargy: Status: Acute (9) Pleural effusion, left: Status: Acute (10) UTI (urinary tract infection): Status: Acute (11) GI bleed: Status: Acute (12) Colon cancer: Status: Acute (13) Mass of colon: Status: Acute (14) IVY (obstructive sleep apnea): Status: Acute (15) Cancer of lower lobe of left lung: Status: Acute (16) GERD (gastroesophageal reflux disease): Status: Acute (17) Abnormal PET scan of colon: Status: Acute (18) Pneumonia: Problem details: Repeat chest xray on 05/29 Neg for Pneumonia , I think we should DC Vanco and Zosyn . May treat emperically with Doxy 100 mg bid for one week . Status: Acute (19) Hypoxia: Problem details: Continue O2 2l/mt Status: Acute (20) Lung mass: Status: Acute (21) Opacity of lung on imaging study: Status: Acute (22) Acute and chronic respiratory failure: Problem details: H/o ICU admission but no intubation Status: Acute (23) Lung cancer: Status: Chronic (24) COPD (chronic obstructive pulmonary disease): Status: Acute (25) Obesity: Problem details: This is a chronic problem and due to her impaired walking, she would not be able to do much exercise. No significant weight reduction is expected Status: Acute (26) Hypoventilation associated with obesity: Problem details: weight reduction and deep breathing exercises should help . She needs noninvasive ventilatory support with CPAP or BIPAP . Claims that her device is not working well, or it seems that she does not really know how to use it. Anyway she is not using her ventilatory support at night. Status: Acute (27) Respiratory failure with hypoxia and hypercapnia: Status: Acute Assessment and Plan: The plan is to remove the IV Cardizem drip and if we need supplemental medicine might add low-dose Coreg at 3.125 mg at to control heart rate and for additional blood pressure control especially in light of elevated BNP even though clinically not in failure I would consider an ARB such as losartan initiating at 25 mg and for now p.r.n. nocturnal BiPAP support and initiate physical therapy and continue above antibiotics for aspiration pneumonitis
[2020-10-07] MEDS: methylPREDNISolone Sod Succ 125 MG/2 ML VIAL 70 MG IVPUSH ×2 (11:33→23:06)
[2020-10-07] MEDS: carvediloL 3.125 MG TABLET PO ×2 (11:35→21:14)
[2020-10-07] MEDS: Losartan Potassium 25 MG TABLET PO (11:36)
--- NOTE | 2020-10-07 15:00 | MHC.CM.PN ---
Per discussion in ICU rounds: pt will be able to transfer [place] [facility] [place]. Her initial d/c plan was for a return to home with spouse and [facility] support. No changes are anticipated at this time.
[2020-10-08] VITALS (12 sets, daily range): BP systolic 113–138; BP diastolic 76–84; PULSE 74–88; RESP 18–21; TEMP 36.6–37; O2SAT 94–100; BMI 34.1
[2020-10-08] MEDS: traMADoL HCL 50 MG TABLET 25 MG PO ×2 (00:09→08:06)
[2020-10-08] MEDS: Omeprazole 20 MG CAPSULE.DR PO (06:08)
[2020-10-08] MEDS: levoFLOXacin/D5W 500 MG/100 ML PIGGYBACK 100 MG IV (06:08)
[2020-10-08] MEDS: Losartan Potassium 25 MG TABLET PO (08:04)
[2020-10-08] MEDS: clonazePAM 0.5 MG TABLET 0.25 MG PO ×2 (08:05→20:44)
[2020-10-08] MEDS: dilTIAZem HCL CD 180 MG CAP.ER.24H PO (08:05)
[2020-10-08] MEDS: carvediloL 3.125 MG TABLET PO ×2 (08:06→20:44)
[2020-10-08] MEDS: methylPREDNISolone Sod Succ 125 MG/2 ML VIAL 70 MG IVPUSH ×2 (10:45→22:55)
[2020-10-08] MEDS: traMADoL HCL 50 MG TABLET PO ×3 (10:45→22:56)
--- NOTE | 2020-10-08 15:38 | MHC.CM.PN ---
Pt remains in ICU - doing very well clinically per MD[facility]. D/C plan is for a return to home with [facility], [employer] and family support.
[2020-10-08] MEDS: Magnesium Sulfate/H2O 2 GM/50 ML PIGGYBACK IV (15:49)
[2020-10-08] MEDS: Magnesium Hydrox/Alum Hydrox 30 ML ORAL.SUSP PO (15:49)
--- NOTE | 2020-10-08 17:08 | P.PNIM_ITS ---
Subjective Subjective Date of Service: 10/08/20 Interval History: Seen in follow-up for acute hypoxic respiratory failure related to opiate overdose, unintentional. Review of Systems Patient is doing well other than having some pain on her side. No respiratory issues Physical Exam Vital Signs: Vital Signs: Last Vital Signs Temp 98.1 F 10/08/20 12:00 Pulse 84 10/08/20 15:51 Resp 20 10/08/20 15:51 BP 113/80 10/08/20 15:51 Pulse Ox 94 10/08/20 15:51 Body Mass Index 34.1 Objective Data Current Medications Generic Name Dose Route Start Last Admin Trade Name Freq PRN Reason Stop Dose Admin Al Hydroxide/Mg Hydroxide 30 ml 10/08/20 15:33 10/08/20 15:49 Magnesium Hydrox/Alum Hydrox 30 Ml Oral.Susp PO 30 ml Q6H PRN Administration heart burn Albuterol/Ipratropium 3 ml 10/05/20 23:06 Albuterol/Iprat 2.5/0.5mg 3 Ml Ampul.Neb INHALE RQ4H PRN Wheezing Carvedilol 3.125 mg 10/07/20 11:00 10/08/20 08:06 Carvedilol 3.125 Mg Tablet PO 3.125 mg BID LONG Administration Protocol Clonazepam 0.25 mg 10/06/20 13:00 10/08/20 08:05 Clonazepam 0.5 Mg Tablet PO 0.25 mg BID LONG Administration Diltiazem HCl 180 mg 10/07/20 09:00 10/08/20 08:05 Diltiazem Hcl Cd 180 Mg Cap.Er.24h PO 180 mg DAILY LONG Administration Protocol Levofloxacin 500 mg in 100 mls @ 100 mls/hr 10/06/20 07:00 10/08/20 08:01 Levaquin IV Infused Q24H LONG Infusion Magnesium Sulfate 2 gm in 50 mls @ 25 mls/hr 10/08/20 15:35 10/08/20 15:49 IV 10/08/20 17:34 25 mls/hr ONCE ONE Administration Losartan Potassium 25 mg 10/07/20 11:00 10/08/20 08:04 Losartan Potassium 25 Mg Tablet PO 25 mg DAILY LONG Administration Protocol Methylprednisolone Sodium Succinate 70 mg 10/07/20 11:00 10/08/20 10:45 Methylprednisolone Sod Succ 125 Mg/2 Ml Vial IVPUSH 70 mg Q12H [facility] Administration Omeprazole 20 mg 10/07/20 06:30 10/08/20 06:08 Omeprazole 20 Mg Capsule. PO 20 mg DAILY@0630 [facility] Administration Pharmacy Consult 1 each 10/05/20 18:58 Consult Rx Perform Med Rec MISCELLANE ONCE PRN Consult order Tramadol HCl 50 mg 10/08/20 10:25 10/08/20 16:37 Tramadol Hcl 50 Mg Tablet PO 50 mg Q6H PRN Administration Pain, Severe (Pain Scale 7-10) Labs CBC & Chem 7: 10/07/20 05:21 10/07/20 05:21 Microbiology Microbiology Results: Microbiology 10/05/20 18:17 Blood - Venous Blood Culture - Preliminary No growth after 48 hours. 10/05/20 18:07 Blood - Venous Blood Culture - Preliminary No growth after 48 hours. Assessment and Plan (1) Opioid overdose: Status: Acute Assessment and Plan: 55-year-old moderately obese hypertensive with COPD and obstructive sleep apnea was 1 month status post left lower lobectomy for poorly differentiated adenocarcinoma of the lung presented with altered mental status significantly obtunded with acute on chronic hypercarbic and hypoxic respiratory failure but was on a combination of clonazepam as well as oxycodone Supported for a while with the BiPAP as medicines diminished and she was noted to have bilateral lower lobe pneumonia consistent with aspiration and therefore is on antibiotic treatment Plan: Continue IV Abx for aspiration PNA, cautious with opioid use. BiPAP AT night, AFIB is controlled with cardizem. No anticoagulation d/t colon CA, heparin for DVT prophylaxis, monitor H/H
[2020-10-08] MEDS: Heparin Sodium,Porcine 5,000 UNIT/ML VIAL 5000 UNIT SUBCUT (17:59)
--- NOTE | 2020-10-08 18:30 | PC.NURSE ---
Assumed care at 0700. Patient alert and oriented, though somewhat attention seeking and rambling/perseverating on traumatic past events in her life. Medicated with scheduled Klonapin as ordered. Continues on 2 LPM nasal cannla, breathing easy though somewhat shallow. SpO2 in mid 90's%. No coough, lung sounds diminished at bases. sinus rhythm most of the day, since about 8 am. Patient also has lower back pain, which she says is chronic, was initially rated as 9/10, nonradiating, dull, bilateral, and worse around her lobectomy incision from August 2020, which is on her left lower back, well approximated and healing well and open to air. Patient also reported left upper abdominal pain, extending under her left lower ribs, and nonradiating, sharp pain, worse on deep inspiration, rated 7/10. Patient was medicated with PRN tramadol 25 mg PO initially with no effect; MD was notified, and new order for Tramadol PRN Q6Hrs 50 mg PO, and this was administered with little improvement in the abdominal pain, but resolution of the back pain. Patient was offered heat and cold packs to help with pain, but she declined. She presents with no noticeable nonverbal signs of pain. MD is aware, and patient medicated with PRN tramadol per eMAR. Patient had critically low Mg this morning at 05:21; MD was notified of this and patient had 2 Gm IV Mg, with some irritation to vein, and ice pack applied with good effect. Patient had one malfunctioning IV in her left hand which was removed, and a new 20 g IV was placed in her left AC. Patient with modest appetite, had about 75% breakfast and 50% lunch; had large formed brown BM around mid-afternoon. 1-assist with walker to the commode and to the chair; was OOB at least 5 times today, standing seems to help some with pain. Patient's , Allen, in for visit today.
[2020-10-09 01:18] VITALS: PULSE 72; RESP 24; O2SAT 96
[2020-10-09 04:00] VITALS: BP 122/82; PULSE 75; RESP 16; TEMP 36.5; O2SAT 95
[2020-10-09] MEDS: Omeprazole 20 MG CAPSULE.DR PO (05:52)
[2020-10-09] MEDS: Heparin Sodium,Porcine 5,000 UNIT/ML VIAL 5000 UNIT SUBCUT (05:52)
[2020-10-09] MEDS: levoFLOXacin/D5W 500 MG/100 ML PIGGYBACK 100 MG IV (05:57)
[2020-10-09 07:28] VITALS: BP 122/82; PULSE 75
[2020-10-09] MEDS: dilTIAZem HCL CD 180 MG CAP.ER.24H PO (07:28)
[2020-10-09] MEDS: clonazePAM 0.5 MG TABLET 0.25 MG PO (07:28)
[2020-10-09 07:29] VITALS: BP 122/82; PULSE 75
[2020-10-09] MEDS: carvediloL 3.125 MG TABLET PO (07:29)
[2020-10-09] MEDS: Losartan Potassium 25 MG TABLET PO (07:29)
[2020-10-09] MEDS: traMADoL HCL 50 MG TABLET PO (07:29)
[2020-10-09 07:53] VITALS: BP 127/92; PULSE 85; RESP 19; TEMP 36.7; O2SAT 96
[2020-10-09 10:54] VITALS: BP 127/92; PULSE 85; O2SAT 96
--- NOTE | 2020-10-09 11:17 | PM.DS ---
DS: Providers Provider Date of Service: 10/09/20 Date of admission: 10/05/20 21:31 Primary care physician: Unknown Physician DS: Diagnosis Discharge Diagnosis (1) Opioid overdose: Status: Acute DS: Medications Discharge Medications Home Medications: Home Medications Medication Instructions Recorded Confirmed amitriptyline 25 mg PO BEDTIME 04/21/20 10/05/20 amlodipine 10 mg PO DAILY 04/21/20 10/05/20 divalproex 500 mg PO DAILY 04/21/20 10/05/20 duloxetine 60 mg PO BEDTIME 04/21/20 10/05/20 omeprazole 20 mg PO BID 04/21/20 10/05/20 Breo Ellipta 1 inh INHALATION DAILY 05/26/20 10/05/20 Incruse Ellipta 1 inh INHALATION DAILY 05/26/20 10/05/20 hydralazine 50 mg PO TID 05/26/20 10/05/20 metoprolol succinate 50 mg PO DAILY 05/26/20 10/05/20 atorvastatin 20 mg PO BEDTIME 07/03/20 10/05/20 divalproex 1,000 mg PO BEDTIME 09/10/20 10/05/20 ferrous sulfate 1 tab PO BID 09/10/20 10/05/20 aspirin 1 tab PO QAM 10/05/20 10/05/20 Previous Rx's Medication Instructions Recorded albuterol sulfate 2 puff INHALATION Q4-6H PRN #8.5 g 04/30/20 ondansetron HCl [Zofran] 4 mg PO Q6H #30 tab 09/16/20 levofloxacin 500 mg PO DAILY 5 Days #4 tab 10/09/20 tramadol 50 mg PO Q8H PRN #20 tab 10/09/20 DS: Summary Hospital Course Hospital Course: 55-year-old moderately obese hypertensive with COPD and obstructive sleep apnea was 1 month status post left lower lobectomy for poorly differentiated adenocarcinoma of the lung presented with altered mental status significantly obtunded with acute on chronic hypercarbic and hypoxic respiratory failure but was on a combination of clonazepam as well as oxycodone Supported for a while with the BiPAP as medicines diminished and she was noted to have bilateral lower lobe pneumonia consistent with aspiration and therefore treated with antibiotic treatment And was alert pCO2 in the 50s after nocturnal BiPAP and is now on nasal cannula oxygen and BiPAP just like home. She was transfered to Medical floor the next day and continues to be doing well. She will be dishcarged with Levaquin to complete course of aspiration pneumonia. She is to avoid Klonopin and Oxycodone and can take tramadol for pain. She is afebrile now, fully alert, no respiratory difficulty and clear lungs. She has an upcoming colon surgery at the end of the month. To follow up with PCP Time Spent with Patient Time attestation: Total time spent providing and/or coordinating discharge services: Discharge coordination time: Greater than 30 minutes Physical Exam Vital Signs: Vital Signs: Last Vital Signs Temp 98.0 F 10/09/20 07:53 Pulse 85 10/09/20 10:54 Resp 19 10/09/20 07:53 BP 127/92 H 10/09/20 10:54 Pulse Ox 96 10/09/20 10:54 Body Mass Index 34.1 Constitutional Awake and Alert, No apparent distress Neck Supple, No lymphadenopathy Cardiovascular RRR, No M/R/G, S1 S2, No S3 S4, No pedal edema Respiratory Lungs clear, No respiratory distress Gastrointestinal Non tender, Non-distended Skin No rash Neurological Alert & oriented x3 Psychological Appropriate affect DS: Data Data Completed and Pending Completed studies during hospitalization [Text1]: Procedures Assistance with Respiratory Ventilation, Less than 24 Consecutive Hours, Continuous Positive Airway Pressure (04/21/20) Excision of Left Lower Lung Lobe, Percutaneous Approach, Diagnostic (07/03/20) Labs on day of discharge: Preliminary micro results at discharge 10/05/20 18:17 Blood Culture - Preliminary Blood - Venous No growth after 48 hours. 10/05/20 18:07 Blood Culture - Preliminary Blood - Venous No growth after 48 hours. Discharge Plan Discharge Anticipated Discharge Date/Time: 10/09/20 11:08 Patient Disposition: Home, Self-Care Discharge Diagnosis: Aspiration pneumonia, opiate overdose unintentional. Referrals: Physician,Unknown [Primary Care Provider] - 1 Week Discharge Medications: New levofloxacin 500 mg tablet 500 mg PO DAILY 5 Days Qty: 4 RF: 0 tramadol 50 mg Tablet 50 mg PO Q8H PRN (Reason: Pain, Severe (Pain Scale 7-10)) Qty: 20 RF: 0 Continued amitriptyline 25 mg tablet 25 mg PO BEDTIME RF: 0 amlodipine 10 mg tablet 10 mg PO DAILY RF: 0 divalproex 500 mg tablet extended release 24 hr 500 mg PO DAILY RF: 0 omeprazole 20 mg capsule,delayed release(DR/EC) 20 mg PO BID RF: 0 duloxetine 60 mg capsule,delayed release(DR/EC) 60 mg PO BEDTIME RF: 0 albuterol sulfate 90 mcg/actuation HFA aerosol inhaler 2 puff inhalation Q4-6H PRN (Reason: shortness of breath or wheezing) Qty: 8.5 RF: 0 metoprolol succinate 50 mg Tablet Extended Release 24 Hr 50 mg PO DAILY RF: 0 Breo Ellipta 100-25 mcg/dose Blister With Device 1 inh INHALATION DAILY RF: 0 Incruse Ellipta 62.5 mcg/actuation Blister With Device 1 inh INHALATION DAILY RF: 0 hydralazine 50 mg Tablet 50 mg PO TID RF: 0 ondansetron HCl [Zofran] 4 mg Tablet 4 mg PO Q6H Qty: 30 RF: 3 atorvastatin 20 mg Tablet 20 mg PO BEDTIME RF: 0 ferrous sulfate 325 mg (65 mg iron) tablet 1 tab PO BID RF: 0 divalproex 500 mg tablet extended release 24 hr 1,000 mg PO BEDTIME RF: 0 aspirin 81 mg tablet,delayed release (DR/EC) 1 tab PO QAM RF: 0 Discontinued clonazepam 0.5 mg tablet 0.5 mg PO TID RF: 0 oxycodone-acetaminophen 10-325 mg tablet 1 tab PO 5XD PRN (Reason: Pain (Scale Score 4-6)) RF: 0 Discharge Orders: Discharge Order (Routine); Ordered 10/09/20 Ordered By: [place]idd Diet: advance to usual diet and diabetic diet Activity on Discharge: As tolerated Stand Alone Forms: Patient Portal Discharge page Care Plan Goals: Avoid rehospitalization and avoid opiate overdose. Health Concerns: Opiate overdose, aspiration pneumonia. Plan of Treatment: Take Levaquin as prescribed and follow-up with her primary care doctor. Avoid Klonopin and that do not take oxycodone Percocet. Tramadol for pain. Assessment: Unintentional opioid overdose causing respiratory failure and pneumonia aspiration type.
--- NOTE | 2020-10-09 11:20 | MHC.CM.PN ---
Patient has been medically cleared for dc to home today, no services. Second IMM just addressed with Patient, original given to Patient and a copy has been placed on the chart.Patient is aware of and happy with the dc plan.Patient will have her bring in an O2 tank from home for transport.
[2020-10-29 11:43] LABS: Codeine, Ur NEGATIVE; Hydrocodone, Ur NEGATIVE; Morphine, Ur NEGATIVE; Oxycodone, Ur 1211
[2020-10-29 11:44] LABS: Oxymorphone, Ur 412
[2020-10-29 11:45] LABS: Hydromorphone, Ur NEGATIVE
[2020-10-29 11:46] LABS: Norhydrocodone, Ur NEGATIVE; Noroxycodone, Ur 2240
== END 2020-10-09 12:04 | disposition home or self-care (01) | DRG 917 ==
LOC: HO.ED 16:07 → HO.ICU 21:50 → HO.IMC 10-08 20:05
PROVIDERS: Nurse Practitioner Primary Care; Physician Assistant; Admitting Provider Internal Medicine Cardiovascular Disease; Emergency Provider Internal Medicine; Visit Provider Internal Medicine
DX: T40.2X1A Poisoning by other opioids, accidental (unintentional), initial encounter (principal); J69.0 Pneumonitis due to inhalation of food and vomit; J96.22 Acute and chronic respiratory failure with hypercapnia; J96.21 Acute and chronic respiratory failure with hypoxia; E66.2 Morbid (severe) obesity with alveolar hypoventilation; C18.7 Malignant neoplasm of sigmoid colon; C34.32 Malignant neoplasm of lower lobe, left bronchus or lung; Y92.9 Unspecified place or not applicable; K21.9 Gastro-esophageal reflux disease without esophagitis; I25.10 Atherosclerotic heart disease of native coronary artery without angina pectoris; F31.9 Bipolar disorder, unspecified; Z20.822 Contact with and (suspected) exposure to COVID-19; Z99.81 Dependence on supplemental oxygen; Z68.34 Body mass index [BMI] 34.0-34.9, adult; Z88.0 Allergy status to penicillin; Z88.5 Allergy status to narcotic agent; Z79.82 Long term (current) use of aspirin; Z79.891 Long term (current) use of opiate analgesic; Z79.899 Other long term (current) drug therapy
CPT/HCPCS: 0241U; 36415; 70450; 71045; 71250; 72125; 80048; 80053; 80307; 80364; 80365; 81001; 82728; 83605; 83615; 83735; 83880; 84100; 84145; 84484; 85025; 85610; 85730; 86140; 87040; 93005; 94660; 96374; 96375; 97110; 97116; 97162; 99285; 99291; 99292; C1758; J0696; J1940; J1956; J2060; J2930; J3475

== ENCOUNTER → 2020-10-20 13:17 | Outpatient (BNVA) | payer MEDICAID, SELFPAY | PROVIDERS: Referring Provider Internal Medicine; Visit Provider Internal Medicine | DX: Z01.810 Encounter for preprocedural cardiovascular examination (principal); J44.9 Chronic obstructive pulmonary disease, unspecified; I73.9 Peripheral vascular disease, unspecified; I10 Essential (primary) hypertension; E78.5 Hyperlipidemia, unspecified; I31.3 Pericardial effusion (noninflammatory) | CPT/HCPCS: 99202 ==

== ENCOUNTER → 2020-10-21 09:14 | Outpatient (REF) | payer MEDICAID, SELFPAY ==
--- NOTE | ~2020-10-21 | NM_ITS ---
Kirsten Myocardial perfusion study Indication: Preoperative cardiovascular evaluation Technique: The patient was brought in for a dobutamine perfusion study on 10/21/2020 and was injected dobutamine per protocol up to 40mcg/kg/min intravenously. Subsequently, 30 mCi of sestamibi was given intravenously. Images were obtained using the SPECT gamma camera interlaced with the gating device. Images were obtained in supine position. Resting perfusion study was performed on 10/22/2020. Patient was administered 30 mCi of sestamibi intravenously at rest. Images were then obtained in supine position. Total DLP 145mGy-cm. Images were processed with the software and compared side to side in short axis, horizontal long axis and vertical long axis views. Findings: Raw acquisition was reviewed. Left arm by the patient's side. The stress perfusion study showed no significant perfusion abnormality. With CT attenuation correction there is a perfusion defect in the mid to distal anteroseptal wall, possibly artifactual. The gated study shows normal LV systolic function with calculated LVEF of 63%. LV cavity is normal in size. The gated study shows normal wall thickening and contraction of segments. Resting study shows no significant perfusion abnormality. With CT attenuation correction, perfusion defect noted in the mid to distal anteroseptal wall, possibly artifactual. Gating at rest reveals normal wall motion with ejection fraction at 60%. The findings are consistent with no reversible or fixed perfusion abnormality. NM/NM zeina perf SPECT rest & str Impression: 1. Myocardial perfusion imaging study shows normal myocardial perfusion. No evidence of any ischemia or infarction. 2. Gated LVEF is 60% during stress and 60% during rest. 3. Transient ischemic dilatation not present. EKG component of the test reported separately.
--- NOTE | 2020-10-21 09:24 | CA_ITS ---
Transthoracic Echocardiogram Patient (Last, First, Middle): Claire Seth, Gender: Female Date of : 1965 Age: 55 Procedure Date: 10/21/2020 Procedure Type: Transthoracic Echocardiogram Location: OP Height: 162.56 cm Weight: 81.65 kg BSA: 1.87 m2 Heart Rate: bpm BP: 120 / 60 mmHg [employer]ining [employer] Sewer: Tika MD: Mickey Wayne MD Psychopaedic Nurse: Jose Martinez MD Symptoms: I25.10 - Atherosclerotic heart disease of [place] coronary... Study Quality: Technically Difficult ECG Rhythm: Sinus with extra beats Conclusions: - 1. Technically limited study 2. Normal LV systolic function with impaired relaxation filling pattern 3. Normal cardiac valvular Doppler 4. Upper limits of normal RV systolic pressure 5. No gross pericardial effusion Findings Procedure Information The patient declines contrast. Left Ventricle Normal left ventricular size, thickness, and systolic function. The visually estimated ejection fraction is between 60-65%. Regional wall motion abnormalities can not be excluded due to suboptimal endocardial definition. Spectral Doppler is indicative of an impaired relaxation filling pattern. E/E prime ratio is between 8 and 15 consistent with indeterminate filling pressures. Right Ventricle Normal right ventricular cavity size. Atria The left atrium is normal in size. Interatrial shunt cannot be excluded. The right atrium was not well visualized. Aortic Valve The aortic valve was not well visualized. There is no aortic valve stenosis. There is no aortic valve regurgitation. Mitral Valve There is mild anterior mitral leaflet thickening. There is mild mitral annular calcification. There is no mitral valve regurgitation. There is no mitral valve stenosis. Pulmonic Valve The pulmonic valve was not well visualized. Tricuspid Valve The tricuspid valve was not well visualized. There is mild tricuspid valve regurgitation. The right ventricular systolic pressure is normal. The right ventricular systolic pressure is 39 mmHg. There is no evidence of pulmonary hypertension. Great Vessels All visible segments of the aorta are normal in size. The pulmonary artery was not well visualized. Venous The inferior vena cava is normal in size and collapses greater than 50% with inspiration. Pericardium/Pleural There is no evidence of pericardial effusion. Prior Study Comparison No significant change compared to prior study dated: 04/23/2020. Measurements 2D Linear Measurements RVIDd: 3.32 RVIDd Index: 1.78 IVSd: 1.03 0.6-0.9/0.6-1.0 cm LVIDd: 4.78 3.9-5.3/4.2-5.9 cm LVIDd Index: 2.56 2.4-3.2/2.2-3.1 cm/m2 LVIDs: 2.80 2.0-3.6 cm LVPWd: 1.21 0.7-1.1 cm Ao Root: 2.90 2.1-3.5 cm LA Diam: 4.40 2.7-3.8/3.0-4.0 cm LAIDs Index: 2.35 1.5-2.3 cm/m2 LV Mass: 246.20 67-162/88-224 g LV Mass Index: 131.66 43-95/49-115 g/m2 LVOT Diam: 2.40 3.0+(-)1.3 cm Mitral Valve MV Pk E: 0.83 MV PK A: 0.93 MV Decel Time: 276.00 E/A: 0.90 E'Lateral: 8.05 E'Medial: 7.51 E/E' Med: 11.00 E/E' Lat: 10.30 Aortic Valve AoV Pk Ede: 2.44 AoV Mn Ede: 1.43 AoV VTI: 0.42 AoV Pk Grad: 24.00 Aov Mn Grad: 10.00 MARU Cont.VTI: 3.16 LVOT LVOT Pk Ede: 1.76 LVOT Mn Ede: 1.08 LVOT VTI: 0.29 LVOT Pk Grad: 12.00 LVOT Mn Grad: 6.00 LVOT Diam: 2.40 LVOT Area: 4.52 Diastolic Function MV Pk E: 0.83 MV Pk A: 0.93 E/A: 0.90 E'Medial: 7.51 E/E' Med: 11.00 E' Laterial: 8.05 E/E' Lat: 10.30 Tricuspid Valve TR Pk Ede: 3.01 TR Pk Grad: 36.00 RA Press: 3.00 RVSP: 39.00 Great Vessels Aorta Ao Root-2D: 2.90 2.0-3.7 cm Ao Asc: 3.40 2.1-3.4 cm Ao Arch: 3.30 Updated in Other Vendor System with Status of Final Jose Martinez MD electronically signed on 10/21/2020 5:11:16 PM with status of Final
--- NOTE | 2020-10-21 09:24 | CA_ITS ---
Acquisition Time: 2020-10-21 09:45:18 Total Exercise Time: 00:26:45 Test Indications: CAD PREOP Medications: Protocol: DOBUTAMINE Max HR: 120 BPM 73% of Pred: 163 BPM Max BP: 130/070 mmHG Max Work Load: 1.0 METS Pharmacological stress test using Dobutamine Dose titrated starting at 5/mcg/kg/min and up to 40 mcg/kg/min. test stopped at 25 min. Pt's HR up to 74 %, HR attenuated by betablocker. Pt started tofeeling nauseus, felt better after eating some crackers and drink. Denies any chest pain. EKG with some PAC's, non-diagnostic for ischemia. Nuclear images to follow. Normotensive response to test. Test reviewed with Dr. Martinez. Referred By: Mickey Wayne Overread By: Martine Toro NP
== END ==
LOC: HO.CARD 09:14
PROVIDERS: PCP Internal Medicine; Visit Provider Internal Medicine
DX: Z01.818 Encounter for other preprocedural examination (principal); I25.10 Atherosclerotic heart disease of native coronary artery without angina pectoris
CPT/HCPCS: 78452; 93016; 93017; 93018; 93306; A9500; J1250

== ENCOUNTER 2020-10-22 13:39 | Outpatient (REF) | payer MEDICAID, SELFPAY ==
[2020-10-22 14:50] LABS: VBG pCO2 79 mmHg; VBG pH 7.31 (7.32-7.43); Venous Blood Gas Refer to POC result
[2020-10-22 14:51] LABS: VBG Base Excess 10.8 mmol/L; VBG HCO3 40 mmol/L (22-26); VBG O2 % Saturation < 30.0 %
[2020-10-23 16:53] LABS: VBG pO2 27 mmHg
== END 2020-10-22 13:40 | disposition home or self-care (01) ==
LOC: HO.LAB 13:39
PROVIDERS: PCP Internal Medicine; Visit Provider Internal Medicine
DX: Z01.810 Encounter for preprocedural cardiovascular examination (principal); J44.9 Chronic obstructive pulmonary disease, unspecified; I73.9 Peripheral vascular disease, unspecified; I10 Essential (primary) hypertension; E78.5 Hyperlipidemia, unspecified; J98.4 Other disorders of lung; J96.91 Respiratory failure, unspecified with hypoxia; J96.92 Respiratory failure, unspecified with hypercapnia; F17.200 Nicotine dependence, unspecified, uncomplicated; Z71.6 Tobacco abuse counseling
CPT/HCPCS: 36415

== ENCOUNTER 2020-10-29 16:22 | Inpatient (IN) | payer MEDICARE, MEDICAID, SELFPAY ==
[2020-10-29] VITALS (8 sets, daily range): BP systolic 89–114; BP diastolic 50–76; PULSE 84–140; RESP 18–25; TEMP 36.1–36.7; O2SAT 90–97; BMI 30.9
--- NOTE | ~2020-10-29 | XR_ITS ---
EXAMINATION: XR CHEST CLINICAL INFORMATION: Dyspnea COMPARISON: Previous chest x-ray and chest CT 10/05/2020 TECHNIQUE: Frontal view of the chest was obtained. FINDINGS: The cardiac silhouette is enlarged but stable. There is pulmonary venous redistribution. There is a small left pleural effusion. Findings are suggestive of CHF. There is left lower lobe atelectasis/consolidation similar to previous exams. There is no right pleural effusion. There is no pneumothorax. Bony structures are unremarkable. XR/XR chest 1V IMPRESSION: New CHF. Left lower lobe atelectasis/consolidation similar to previous exams.
--- NOTE | 2020-10-29 16:55 | ECG_ITS ---
Test Reason : WEAKNESS Blood Pressure : / mmHG Vent. Rate : 081 BPM Atrial Rate : 081 BPM P-R Int : 152 ms QRS Dur : 096 ms QT Int : 368 ms P-R-T Axes : 063 057 063 degrees QTc Int : 427 ms Normal sinus rhythm Cannot rule out Anterior infarct (cited on or before 05-OCT-2020) Abnormal ECG When compared with ECG of 05-OCT-2020 17:14, Nonspecific T wave abnormality no longer evident in Inferior leads T wave inversion no longer evident in Anterior leads Referred By: Jaqueline Willis Electronically Signed By:KARIE AKERS
--- NOTE | 2020-10-29 18:56 | ED_ITS ---
HPI - SOB/Dyspnea General Chief Complaint: Dyspnea Stated Complaint: SOB,left side weakness Time Seen by Provider: 10/29/20 16:54 Source: patient Mode of arrival: ambulatory Limitations: no limitations History of Present Illness HPI Narrative: 55-year-old female came in for evaluation of shortness of breath and left-sided body twitching. This is a patient with past medical history of COPD using 2 L of supplemental oxygen at home, hypertension, coronary artery disease, bipolar, congestive heart failure. Presented with exertional shortness of breath started 1 day, patient while the exam is lethargic but able to answer all questions, patient also taking oxycodone for chronic pain patient stated that she only took her normal 10 mg pill. Patient declined any fever chills. Related Data Home Medications Medication Instructions Recorded Confirmed amitriptyline 25 mg PO BEDTIME 04/21/20 10/22/20 amlodipine 10 mg PO DAILY 04/21/20 10/22/20 divalproex 500 mg PO QAM 04/21/20 10/22/20 duloxetine 60 mg PO BEDTIME 04/21/20 10/22/20 omeprazole 20 mg PO BID 04/21/20 10/22/20 Breo Ellipta 1 inh INHALATION DAILY 05/26/20 10/22/20 Incruse Ellipta 1 inh INHALATION DAILY 05/26/20 10/22/20 hydralazine 50 mg PO TID 05/26/20 10/22/20 metoprolol succinate 50 mg PO DAILY 05/26/20 10/22/20 atorvastatin 20 mg PO BEDTIME 07/03/20 10/22/20 divalproex 1,000 mg PO QPM 09/10/20 10/22/20 ferrous sulfate 1 tab PO BID 09/10/20 10/22/20 aspirin 1 tab PO QAM 10/05/20 10/22/20 blood pressure monitor #1 ea 10/22/20 10/22/20 blood pressure test kit-large #1 blair 10/22/20 10/22/20 naloxone 4 mg/actuation nasal spray 1 spray INTRANASAL ONCE PRN 10/22/20 10/22/20 nystatin 100,000 unit/gram topical 1 appl TOPICAL BID 10/22/20 10/22/20 cream ondansetron HCl [Zofran] 4 mg PO Q6H PRN 10/22/20 10/22/20 oxycodone-acetaminophen 1 tab PO BID PRN 10/22/20 10/22/20 clonazepam 1 tab PO TID PRN 10/23/20 10/23/20 Previous Rx's Medication Instructions Recorded albuterol sulfate 2 puff INHALATION Q4-6H PRN #8.5 g 04/30/20 tramadol 50 mg PO Q8H PRN #20 tab 10/09/20 magnesium oxide 400 mg PO BID #10 cap 10/23/20 erythromycin 500 mg tablet 500 mg PO QID #6 tab 10/26/20 neomycin 500 mg tablet 1 g PO TID #6 tab 10/26/20 Allergies Allergy/AdvReac Type Severity Reaction Status Date / Time levofloxacin [From Levaquin] Allergy Severe Diarrhea Verified 10/29/20 16:50 Penicillins Allergy Mild RASH Verified 10/29/20 16:50 venlafaxine [From Effexor] Allergy Mild RASH Verified 10/29/20 16:50 cyclobenzaprine Allergy Unknown UNKNOWN Verified 10/29/20 16:50 [Cyclobenzaprine] fentanyl [FENTANYL] Allergy Unknown HALLUCINATI Verified 10/29/20 16:50 ONS topiramate [From Topamax] Allergy Unknown UNKNOWN Verified 10/29/20 16:50 Sulfa (Sulfonamide AdvReac Severe Diarrhea Verified 10/29/20 16:50 Antibiotics) Review of Systems Review of Systems: All other systems are reviewed and are negative Constitutional: Reports as per HPI and Reports no additional constitutional complaints Eyes: Reports as per HPI and Reports no additional eye complaints Reports system reviewed and no additional complaints, except as documented Cardiovascular: Reports as per HPI and Reports no additional cardiovascular complaints Respiratory: Reports as per HPI and Reports no additional respiratory complaints Gastrointestinal: Reports as per HPI and Reports no additional gastrointestinal complaints Genitourinary: Reports no additional female genitourinary complaints Musculoskeletal: Reports no additional musculoskeletal complaints Skin/Breast: Reports system reviewed and no additional complaints, except as docu Psychiatric: Reports no additional psychiatric complaints Endocrine: Reports no additional endocrine complaints Hematologic/Lymphatic: Reports no additional hematologic/lymphatic complaints Allergic/Immunologic: Reports no additional allergic/immunologic complaints Reports system reviewed and no additional complaints, except as documented and Reports Abnormal speech present PMFSH Past Medical History Medical History Abnormal PET scan of colon Acute and chronic respiratory failure Acute on chronic diastolic CHF (congestive heart failure) Adenocarcinoma of sigmoid colon Atrial flutter with rapid ventricular response Back pain with history of spinal surgery Bilateral pneumonia Bipolar 1 disorder Bipolar disorder CAD (coronary artery disease) Cancer of lower lobe of left lung CHF exacerbation Chronic back pain Colon cancer COPD (chronic obstructive pulmonary disease) COPD (chronic obstructive pulmonary disease) COPD (chronic obstructive pulmonary disease) COVID-19 vaccine series completed Depression Fibromyalgia GERD (gastroesophageal reflux disease) GI bleed High cholesterol History of COVID-19 HTN (hypertension) Hypernatremia Hypoventilation associated with obesity Hypoxia Lethargy Lung cancer Lung mass Mass of colon No natural teeth Obesity Obesity hypoventilation syndrome Opacity of lung on imaging study IVY (obstructive sleep apnea) Oxygen dependent Pleural effusion, left PTSD (post-traumatic stress disorder) Renal failure Respiratory failure with hypoxia and hypercapnia Respiratory failure with hypoxia and hypercapnia Restless legs syndrome (RLS) Restrictive lung disease Rotator cuff strain Sleep disorder Smoker UTI (urinary tract infection) Surgical History H/O colonoscopy H/O: hysterectomy History of back surgery History of bunionectomy History of esophagogastroduodenoscopy (EGD) Hx of appendectomy Hx of cholecystectomy Hx of exploratory laparotomy Status post lobectomy of lung Family History Family History Maternal Aunt Breast cancer Stroke COPD (chronic obstructive pulmonary disease) Maternal Aunt Breast cancer COPD (chronic obstructive pulmonary disease) Mother Uterine cancer COPD (chronic obstructive pulmonary disease) HTN (hypertension) Heart disease Maternal Uncle Stroke Paternal Grandmother Heart attack Sister Diabetes IBS (irritable bowel syndrome) Son HTN (hypertension) Daughter HTN (hypertension) Father HTN (hypertension) Brother Heart disease Social History Social History Household Members: Spouse and Unknown / Unable to assess Housing: House Are you a primary cardiac care unit nurse to a significant other at home: No Do you presently have visiting nurse or other home services: Yes ([facility]NA 1 x week, PT 1 x week) Cigarettes Per Day: 4 Years Smoked: 40 Second Hand Smoke Exposure: Yes Advance Directives: No Advance Directives Information Provided: No service: No Current occupational status: unemployed and disabled Physical Exam Vital Signs: Vital Signs: Last Vital Signs Temp 97 F 10/29/20 16:42 Pulse 87 10/29/20 20:23 Resp 24 H 10/29/20 20:23 BP 89/50 L 10/29/20 20:23 Pulse Ox 94 10/29/20 20:23 Body Mass Index 30.9 Vital signs have been reviewed as appeared to be correct. Blood pressure normal. Heart rate normal. Respiration rate normal. Temperature normal. Oxygen saturation normal. Appearance: Alert. Oriented X3. Lethargic but easily arousable No acute distress. Head: Normal external exam. Normocephalic. Atraumatic. No Stanley signs noted. No raccoon eyes noted Eyes: PERRLA. EOMI. Conjunctiva and sclera normal. Eyelids normal. ENT: TM's Normal. Pharynx normal. Uvula midline. Moist mucous membranes. No trismus noted. No drooling noted. No muffled voice noted. Neck: Normal inspection. Neck supple. FROM. No adenopathy. Thyroid Normal. No meningeal signs. No neck mass noted. CVS: Normal heart rate and rhythm. Heart sound normal. No murmurs noted. Pulses normal throughout. Respiratory: No respiratory distress. Painless inspiration. bilateral rales to longterm lung parker bilaterally, Breath sounds normal. No wheezes/rhonchi noted. Chest nontender. No accessory muscle usage noted or decreased air movement noted. Abdomen: Soft and nontender. Bowel sounds normal in all 4 quadrants. No distention noted. No organomegaly noted. No visible injury noted. Back: No CVA tenderness. Full range of motion noted. Skin: Skin warm and dry. Normal skin color. Normal skin turgor. No ra shes/lesions/lacerations noted. Extremities: +1 bilateral pitting lower extremity edema. Extremities exhibit normal range of motion. Extremities nontender. Neuro: Oriented X 3 lethargic but easily arousable. No motor deficit. No sensory deficit. Reflexes normal. Course Course Course Narrative: Assessment and plan. 1. Patient is slightly lethargic patient takes 10 mg of oxycodone daily for her chronic pain issue, patient was given Narcan I felt that the patient is more arousable and more awake after the Narcan. 2. Shortness of breath and wheezing pH showed slight acidosis with pCO2 of 70, will start the patient on BiPAP and admit to ICU, case discussed with Dr. falk. 3. Slightly hypotensive now patient is more awake with Narcan and patient on BiPAP will keep watching blood pressure which I am hoping to improve. Reevaluation(s) Reevaluation #1: Patient had bigeminal which is likely due to hypercarbia status and acidosis. Patient is more awake, and more agitated, blood pressure now is better heart rat e is elevated patient appear anxious will sgive patient Ativan. Time: 21:06 MDM - SOB/Dyspnea Lab Data Result diagrams: 10/29/20 19:29 10/29/20 19:28 Labs: Lab Results 10/29/20 10/29/20 10/29/20 Range/Units 19: 19: 19:28 WBC (4.8-10.8) X10*3/uL RBC (4.20-5.50) X10*6/uL Hgb (12.0-16.0) g/dl Hct (37-47) % MCV (80-98) fL MCH (27.0-33.0) pg MCHC (31.0-35.0) g/dl RDW (11.0-16.0) % Plt Count (160-400) X10*3/uL MPV (9.4-12.3) fL Immature Gran % (Auto) (0.0-0.4) % Neut % (Auto) (45-73) % Lymph % (Auto) (20-40) % [place] % (Auto) (2-11) % Eos % (Auto) (0-4) % Baso % (Auto) (0-2) % Lymph # (Auto) (1.2-4.9) X10*3/uL [place] # (Auto) (0.1-1.2) X10*3/uL Eos # (Auto) (0.0-0.4) X10*3/uL Baso # (Auto) (0.0-0.2) X10*3/uL Abs Immat Gran (auto) (0.00-0.03) X10*3/uL Absolute Neuts (auto) (2.0-8.3) X10*3/uL Absolute Nucleated RBC (0.0-0.012) X10*3/uL Nucleated RBC % (auto) (0.0-0.2) /100WBC Hold Blue Top SEE NOTE O2 Saturation % ABG pH at Pt Temp (7.35-7.45) ABG pH (Temp Correct) (7.35-7.45) ABG pCO2 at Pt Temp (32-45) mmHg ABG pCO2 (Temp Corrct (32-45) mmHg ABG pO2 at Pt Temp (83-108) mmHg ABG pO2 (Temp Correct (83-108) ABG HCO3 (22-26) mmol/L ABG Base Excess (Actual) mmol/L VBG pH (7.32-7.43) VBG pCO2 mmHg VBG pO2 mmHg VBG HCO3 (22-26) mmol/L VBG O2 Saturation % VBG Base Excess mmol/L Sodium 132 L (135-145) mmol/L Potassium 4.9 D (3.3-5.1) mmol/L Chloride 91 L (96-108) mmol/L Carbon Dioxide 30 H (22-29) mmol/L Anion Gap 16 (12-20) BUN 16 (9-16) mg/dL Creatinine 0.98 (0.5-1.4) mg/dL Estim Creat Clear Calc 65.5 Estimated GFR 58 Random Glucose 98 (60-115) mg/dL Calcium 8.6 (8.4-10.2) mg/dL Magnesium 2.7 H (1.6-2.6) mg/dL Total Bilirubin 0.3 (0.0-1.0) mg/dL Direct Bilirubin 0.2 (0.0-0.5) mg/dL AST 10 (5-31) U/L ALT < 6 (0-31) U/L Alkaline Phosphatase 115 (39-117) U/L Ammonia 43 (13-55) umol/L Troponin I High Sens (<3.5-17.0) ng/L B-Natriuretic Peptide (<100) pg/mL Total Protein 6.5 (6.5-8.0) g/dL Albumin 3.5 (3.5-5.0) g/dL Lipase 15 (8-78) U/L Valproic Acid 62.1 (50.0-100.0) mcg/mL 10/29/20 10/29/2021 Range/Units 19:28 19:29 19:32 WBC 16.9 H (4.8-10.8) X10*3/uL RBC 3.64 L (4.20-5.50) X10*6/uL Hgb 9.6 L (12.0-16.0) g/dl Hct 33.0 L (37-47) % MCV 90.7 (80-98) fL MCH 26.4 L (27.0-33.0) pg MCHC 29.1 L (31.0-35.0) g/dl RDW 16.8 H (11.0-16.0) % Plt Count 328 (160-400) X10*3/uL MPV 9.6 (9.4-12.3) fL Immature Gran % (Auto) 2.7 H (0.0-0.4) % Neut % (Auto) 86.0 H (45-73) % Lymph % (Auto) 4.7 L (20-40) % [place] % (Auto) 6.4 (2-11) % Eos % (Auto) 0.0 (0-4) % Baso % (Auto) 0.2 (0-2) % Lymph # (Auto) 0.8 L (1.2-4.9) X10*3/uL [place] # (Auto) 1.1 (0.1-1.2) X10*3/uL Eos # (Auto) 0.0 (0.0-0.4) X10*3/uL Baso # (Auto) 0.0 (0.0-0.2) X10*3/uL Abs Immat Gran (auto) 0.45 H (0.00-0.03) X10*3/uL Absolute Neuts (auto) 14.6 H (2.0-8.3) X10*3/uL Absolute Nucleated RBC 0.030 H (0.0-0.012) X10*3/uL Nucleated RBC % (auto) 0.2 (0.0-0.2) /100WBC Hold Blue Top O2 Saturation % ABG pH at Pt Temp (7.35-7.45) ABG pH (Temp Correct) (7.35-7.45) ABG pCO2 at Pt Temp (32-45) mmHg ABG pCO2 (Temp Corrct (32-45) mmHg ABG pO2 at Pt Temp (83-108) mmHg ABG pO2 (Temp Correct (83-108) ABG HCO3 (22-26) mmol/L ABG Base Excess (Actual) mmol/L VBG pH 7.23 L (7.32-7.43) VBG pCO2 79 mmHg VBG pO2 50 mmHg VBG HCO3 33 H (22-26) mmol/L VBG O2 Saturation 74.0 % VBG Base Excess 3.9 mmol/L Sodium (135-145) mmol/L Potassium (3.3-5.1) mmol/L Chloride (96-108) mmol/L Carbon Dioxide (22-29) mmol/L Anion Gap (12-20) BUN (9-16) mg/dL Creatinine (0.5-1.4) mg/dL Estim Creat Clear Calc Estimated GFR Random Glucose (60-115) mg/dL Calcium (8.4-10.2) mg/dL Magnesium (1.6-2.6) mg/dL Total Bilirubin (0.0-1.0) mg/dL Direct Bilirubin (0.0-0.5) mg/dL AST (5-31) U/L ALT (0-31) U/L Alkaline Phosphatase (39-117) U/L Ammonia (13-55) umol/L Troponin I High Sens 4.9 (<3.5-17.0) ng/L B-Natriuretic Peptide 267 H (<100) pg/mL Total Protein (6.5-8.0) g/dL Albumin (3.5-5.0) g/dL Lipase (8-78) U/L Valproic Acid (50.0-100.0) mcg/mL 10/29/20 Range/Units 20:09 WBC (4.8-10.8) X10*3/uL RBC (4.20-5.50) X10*6/uL Hgb (12.0-16.0) g/dl Hct (37-47) % MCV (80-98) fL MCH (27.0-33.0) pg MCHC (31.0-35.0) g/dl RDW (11.0-16.0) % Plt Count (160-400) X10*3/uL MPV (9.4-12.3) fL Immature Gran % (Auto) (0.0-0.4) % Neut % (Auto) (45-73) % Lymph % (Auto) (20-40) % [place] % (Auto) (2-11) % Eos % (Auto) (0-4) % Baso % (Auto) (0-2) % Lymph # (Auto) (1.2-4.9) X10*3/uL [place] # (Auto) (0.1-1.2) X10*3/uL Eos # (Auto) (0.0-0.4) X10*3/uL Baso # (Auto) (0.0-0.2) X10*3/uL Abs Immat Gran (auto) (0.00-0.03) X10*3/uL Absolute Neuts (auto) (2.0-8.3) X10*3/uL Absolute Nucleated RBC (0.0-0.012) X10*3/uL Nucleated RBC % (auto) (0.0-0.2) /100WBC Hold Blue Top O2 Saturation 71.0 % ABG pH at Pt Temp 7.27 L (7.35-7.45) ABG pH (Temp Correct) 7.27 L (7.35-7.45) ABG pCO2 at Pt Temp 70 H* (32-45) mmHg ABG pCO2 (Temp Corrct 69 H* (32-45) mmHg ABG pO2 at Pt Temp 47 L* (83-108) mmHg ABG pO2 (Temp Correct 46 L* (83-108) ABG HCO3 32 H (22-26) mmol/L ABG Base Excess (Actual) 3.9 mmol/L VBG pH (7.32-7.43) VBG pCO2 mmHg VBG pO2 mmHg VBG HCO3 (22-26) mmol/L VBG O2 Saturation % VBG Base Excess mmol/L Sodium (135-145) mmol/L Potassium (3.3-5.1) mmol/L Chloride (96-108) mmol/L Carbon Dioxide (22-29) mmol/L Anion Gap (12-20) BUN (9-16) mg/dL Creatinine (0.5-1.4) mg/dL Estim Creat Clear Calc Estimated GFR Random Glucose (60-115) mg/dL Calcium (8.4-10.2) mg/dL Magnesium (1.6-2.6) mg/dL Total Bilirubin (0.0-1.0) mg/dL Direct Bilirubin (0.0-0.5) mg/dL AST (5-31) U/L ALT (0-31) U/L Alkaline Phosphatase (39-117) U/L Ammonia (13-55) umol/L Troponin I High Sens (<3.5-17.0) ng/L B-Natriuretic Peptide (<100) pg/mL Total Protein (6.5-8.0) g/dL Albumin (3.5-5.0) g/dL Lipase (8-78) U/L Valproic Acid (50.0-100.0) mcg/mL Critical Care Time Critical Care Time Critical Care Time: Yes Total Critical Care Time: 45 Attestation: I spent 45 minutes providing critical care service to the patient, this including time spent at the bedside to evaluate the patient, reassess the patient, monitoring vital signs, review labs, and radiographic studies, counseling the patient/family, discussing the case with consultants, disposition the patient. Discharge Plan Discharge Clinical Impression: Congestive heart failure, Acute exacerbation of chronic obstructive pulmonary disease, Acute hypotension Opioid overdose Qualifiers: Injury intent: accidental or unintentional Patient Disposition: Admitted As Inpatient
[2020-10-29 19:33] LABS: MANUAL DIFF FLAG NO
[2020-10-29 19:38] LABS: Venous Blood Gas Refer to POC result
[2020-10-29 19:39] LABS: Basophils Percent Auto 0.2 % (0-2); Hemoglobin 9.6 g/dl (12.0-16.0); Imm Gran Abs Auto 0.45 X10*3/uL (0.00-0.03); Imm Gran Pct Auto 2.7 % (0.0-0.4); Lymphocytes Absolute Auto 0.8 X10*3/uL (1.2-4.9); Lymphocytes Percent Auto 4.7 % (20-40); Mean Corpuscular HGB Conc 29.1 g/dl (31.0-35.0); Mean Corpuscular Hemoglobin 26.4 pg (27.0-33.0); Mean Corpuscular Volume 90.7 fL (80-98); Mean Platelet Volume 9.6 fL (9.4-12.3); Monocytes Absolute Auto 1.1 X10*3/uL (0.1-1.2); Monocytes Percent Auto 6.4 % (2-11); NRBC Pct Auto 0.2 /100WBC (0.0-0.2); Neutrophils Absolute Auto 14.6 X10*3/uL (2.0-8.3); Platelet Count 328 X10*3/uL (160-400); Red Blood Count 3.64 X10*6/uL (4.20-5.50); Red Cell Distribution Width 16.8 % (11.0-16.0); White Blood Count 16.9 X10*3/uL (4.8-10.8)
[2020-10-29 19:40] LABS: VBG Base Excess 3.9 mmol/L; VBG HCO3 33 mmol/L (22-26); VBG pCO2 79 mmHg; VBG pH 7.23 (7.32-7.43); VBG pO2 50 mmHg
[2020-10-29 20:00] LABS: Ammonia 43 umol/L (13-55)
[2020-10-29 20:09] LABS: B Type Natriuretic Peptide 267 pg/mL (<100); Troponin-I High Sensitivity 4.9 ng/L (<3.5-17.0)
[2020-10-29 20:10] LABS: Valproate 62.1 mcg/mL (50.0-100.0)
[2020-10-29 20:11] LABS: Alanine Aminotransferase < 6 U/L (0-31); Albumin Level 3.5 g/dL (3.5-5.0); Alkaline Phosphatase 115 U/L (39-117); Anion Gap 16 (12-20); Aspartate Amino Transferase 10 U/L (5-31); Bilirubin Direct 0.2 mg/dL (0.0-0.5); Bilirubin Total 0.3 mg/dL (0.0-1.0); Blood Urea Nitrogen 16 mg/dL (9-16); Calcium 8.6 mg/dL (8.4-10.2); Carbon Dioxide 30 mmol/L (22-29); Chloride 91 mmol/L (96-108); Creatinine Clr Calc Pharmacy 65.5; Estimated Glomerular Filt Rate 58; Glucose Random 98 mg/dL (60-115); Lipase 15 U/L (8-78); Magnesium 2.7 mg/dL (1.6-2.6); Potassium 4.9 mmol/L (3.3-5.1); Sodium 132 mmol/L (135-145); Total Protein 6.5 g/dL (6.5-8.0)
[2020-10-29 20:20] LABS: ABG Base Excess 3.9 mmol/L; ABG HCO3 32 mmol/L (22-26); ABG pCO2 70 mmHg (32-45); ABG pCO2 TC 69 mmHg (32-45); ABG pH 7.27 (7.35-7.45); ABG pH TC 7.27 (7.35-7.45); ABG pO2 47 mmHg (83-108); ABG pO2 TC 46 (83-108)
[2020-10-29 20:22] LABS: ABG Refer to POC result
--- NOTE | 2020-10-29 20:23 | PC.NURSE ---
RT COLLECTED ABG, AWAITING RESULTS. PT LETHARGIC, PALE AND SLIGHTLY DIAPHORETIC. PT SPEAKING IN FULL SENTENCES. PT IN NO DISTRESS, BP 89/40. PTOVIDER AWRE THAT RT AT BEDSIDE AND SUGGESTS BIPAP. MD WANTS PT TO HAVE NARCAN, OXYCODONE USE AT HOME. PT WAS IN BIGEMINY OF PAC'S, RETURNED TO NSR.
--- NOTE | 2020-10-29 20:35 | PC.NURSE ---
pt placed on bipap.
[2020-10-29] MEDS: Naloxone HCl 0.4 MG/ML VIAL IVPUSH (20:45)
--- NOTE | 2020-10-29 20:46 | PC.NURSE ---
at bedside following change in cardiac rythym. pt went into bigeminy pac's again then svt 170. pt converted on her own into nsr.
[2020-10-29] MEDS: Furosemide 20 MG/2 ML VIAL IVPUSH (21:20)
[2020-10-29] MEDS: LORazepam 2 MG/ML VIAL 0.5 MG IVPUSH (21:20)
--- NOTE | 2020-10-29 21:36 | HE.PHANOTE ---
Addendum entered by Thalia Rodarte 10/29/20 21:37: Percocet was last filled in September 2020 Original Note: Med Rec completed using the last discharge summary and pharmacy records as suggested by JUAN
[2020-10-29 21:37] LABS: Appearance Urine CLEAR; Color Urine YELLOW; Glucose Urine UA NEG (NEG); Leukocyte Esterase Urine NEG (NEG); Nitrite Urine NEG (NEG); Specific Gravity - Urine 1.015 (1.005-1.025); Urine Blood NEG (NEG); Urine Ketones NEG (NEG); Urine Protein 2+ MG/DL (NEG-TRACE)
[2020-10-29 21:46] LABS: RBC Urine 0 /HPF (0); WBC Urine 0 /HPF (0-4)
[2020-10-29 21:47] LABS: Bacteria Urine TRACE /LPF; Hyaline Casts Urine 0-2 /LPF; Mucus Urine TRACE /LPF; Renal Epithelial Cells Urine TRACE /LPF; Squamous Epithelial Cell Urine TRACE /LPF
[2020-10-29 22:08] LABS: Amphetamine Screen Urine Not Detected (Not Detect); Barbiturates, Urine Not Detected (Not Detect); Benzodiazepines Screen Urine Not Detected (Not Detect); Cannabinoid Screen Urine Not Detected (Not Detect); Cocaine Screen Urine Not Detected (Not Detect); Opiate Screen Urine POSITIVE (Not Detect); Phencyclidine Screen Urine Not Detected (Not Detect)
--- NOTE | 2020-10-29 22:14 | ECG_ITS ---
Test Reason : tachycardia Blood Pressure : / mmHG Vent. Rate : 134 BPM Atrial Rate : 178 BPM P-R Int : 000 ms QRS Dur : 092 ms QT Int : 332 ms P-R-T Axes : 000 059 075 degrees QTc Int : 495 ms Atrial fibrillation with rapid ventricular response with premature ventricular or aberrantly conducted complexes Abnormal ECG When compared with ECG of 29-OCT-2020 19:15, Atrial fibrillation has replaced Sinus rhythm Vent. rate has increased BY 53 BPM Referred By: Billie Campos Electronically Signed By:KARIE AKERS
--- NOTE | 2020-10-29 22:46 | PM.CCHP ---
History of Present Illness Date of Service: 10/29/20 <Mattie Roberts PA-C - Last Filed: 10/30/20 04:51> Chief Complaint: sob <Mattie Roberts PA-C - Last Filed: 10/30/20 04:51> 55-year-old female with past medical history of acute on chronic respiratory failure on baseline 2 L of oxygen, CHF, bipolar disorder, CAD, depression, fibromyalgia, HLD, HTN, hypoventilation associated with obesity, Left lower lobe poorly differentiated carcinoma with LLL lobectomy and mediastinal lymphadenectomy on 09/01/[address] Cota at [facility], she also has a hx of sigmoid colon adenocarcinoma with colonoscopy on 08/06/2020, patient was referred to Dr Wray, the surgery has not taken place yet, according to the medical records. Of note, pt is on opioids 5x daily for pain control. She is also on chronic benzo's. Patient came to the emergency department earlier today complaining of exertional shortness of breath x1 day. Upon exam by the MD, the patient was lethargic but is able to answer all questions. Patient denied any fever or chills. MD ended up giving patient Narcan, patient became more alert an oriented. Labs revealed an elevated WBC at 16.9, ABG revealed respiratory acidosis at 7.27//70 47/30 to with a base excess of 3.9, slight hyponatremia at 130 to, hypochloremia at 91 and bicarb at 30. BNP 267, tox screen was positive for opiates, Upon my exam, the patient was very jittery and animated, will give Ativan. Patient will be brought to the ICU as she is requiring BiPAP. The patient is not septic. <Mattie Roberts PA-C - Last Filed: 10/30/20 04:51> Review of Systems Review of Systems: Yes all other systems are reviewed and are negative <Mattie Roberts PA-C - Last Filed: 10/30/20 04:51> [facility] Past Medical History Medical History: Medical History Abnormal PET scan of colon Acute and chronic respiratory failure Acute on chronic diastolic CHF (congestive heart failure) Adenocarcinoma of sigmoid colon Atrial flutter with rapid ventricular response Back pain with history of spinal surgery Bilateral pneumonia Bipolar 1 disorder Bipolar disorder CAD (coronary artery disease) Cancer of lower lobe of left lung CHF exacerbation Chronic back pain Colon cancer COPD (chronic obstructive pulmonary disease) COPD (chronic obstructive pulmonary disease) COPD (chronic obstructive pulmonary disease) COVID-19 vaccine series completed Depression Fibromyalgia GERD (gastroesophageal reflux disease) GI bleed High cholesterol History of COVID-19 HTN (hypertension) Hypernatremia Hypoventilation associated with obesity Hypoxia Lethargy Lung cancer Lung mass Mass of colon No natural teeth Obesity Obesity hypoventilation syndrome Opacity of lung on imaging study IVY (obstructive sleep apnea) Oxygen dependent Pleural effusion, left PTSD (post-traumatic stress disorder) Renal failure Respiratory failure with hypoxia and hypercapnia Respiratory failure with hypoxia and hypercapnia Restless legs syndrome (RLS) Restrictive lung disease Rotator cuff strain Sleep disorder Smoker UTI (urinary tract infection) <Mattie Roberts PA-C - Last Filed: 10/30/20 04:51> Family History Family History: Family History Maternal Aunt Breast cancer Stroke COPD (chronic obstructive pulmonary disease) Maternal Aunt Breast cancer COPD (chronic obstructive pulmonary disease) Mother Uterine cancer COPD (chronic obstructive pulmonary disease) HTN (hypertension) Heart disease Maternal Uncle Stroke Paternal Grandmother Heart attack Sister Diabetes IBS (irritable bowel syndrome) Son HTN (hypertension) Daughter HTN (hypertension) Father HTN (hypertension) Brother Heart disease <Mattie Roberts PA-C - Last Filed: 10/30/20 04:51> Surgical History Surgical History: Surgical History H/O colonoscopy H/O: hysterectomy History of back surgery History of bunionectomy History of esophagogastroduodenoscopy (EGD) Hx of appendectomy Hx of cholecystectomy Hx of exploratory laparotomy Status post lobectomy of lung <Mattie Roberts PA-C - Last Filed: 10/30/20 04:51> Social History Social History: Social History Household Members: Significant Other Housing: House Are you a primary care process manager to a significant other at home: No Do you presently have visiting nurse or other home services: Yes (VNA 1 x week, PT 1 x week) Patient Tobacco Use Status: Former Tobacco user Cigarettes Per Day: 4 Years Smoked: 40 Second Hand Smoke Exposure: Yes Use of substances other than those prescribed or required for medical reasons: No Currently Displaying Signs/Symptoms of Drug Intoxication Withdrawal: No Have you been hit, kicked, punched, or otherwise hurt by someone within the past year? If so, by whom?: No Do you feel safe in your current relationship?: Yes Is there a partner from a previous relationship who is making you feel unsafe now?: No Are you made to feel afraid or neglected: No Advance Directives: No Advance Directives Information Provided: No Advance Directives on File: No Do you have thoughts of harming others: None Do you have a plan to hurt others: No Plan Recently lost weight without trying: No Nutrition Risks: No Nutritional Risk service: No Current occupational status: unemployed and disabled <Mattie Roberts PA-C - Last Filed: 10/30/20 04:51> Meds Allergies/Adverse reactions: Allergies Allergy/AdvReac Type Severity Reaction Status Date / Time levofloxacin [From Levaquin] Allergy Severe Diarrhea Verified 10/29/20 16:50 Penicillins Allergy Mild RASH Verified 10/29/20 16:50 venlafaxine [From Effexor] Allergy Mild RASH Verified 10/29/20 16:50 cyclobenzaprine Allergy Unknown UNKNOWN Verified 10/29/20 16:50 [Cyclobenzaprine] fentanyl [FENTANYL] Allergy Unknown HALLUCINATI Verified 10/29/20 16:50 ONS topiramate [From Topamax] Allergy Unknown UNKNOWN Verified 10/29/20 16:50 Sulfa (Sulfonamide AdvReac Severe Diarrhea Verified 10/29/20 16:50 Antibiotics) <Mattie Roberts PA-C - Last Filed: 10/30/20 04:51> Active Medications: Current Medications Generic Name Dose Route Start Last Admin Trade Name Freq PRN Reason Stop Dose Admin Heparin Sodium (Porcine) 5,000 unit 10/29/20 21:45 Heparin Sodium,Porcine 5,000 Unit/Ml Vial SUBCUT Q12H [facility] Consult 1 each 10/29/20 21:03 Consult Rx Perform Med Rec MISCELLANE ONCE PRN Consult order <Mattie Roberts PA-C - Last Filed: 10/30/20 04:51> Home medications: Home Medications Medication Instructions Recorded Confirmed Last Taken Type amitriptyline 25 mg PO BEDTIME 04/21/20 10/29/20 09/08/20 History amlodipine 10 mg PO DAILY 04/21/20 10/29/20 09/09/20 History divalproex 500 mg PO QAM 04/21/20 10/29/20 09/09/20 History duloxetine 60 mg PO BEDTIME 04/21/20 10/29/20 09/08/20 History omeprazole 20 mg PO BID 04/21/20 10/29/20 09/09/20 History Breo Ellipta 1 inh INHALATION DAILY 05/26/20 10/29/20 09/09/20 History Incruse Ellipta 1 inh INHALATION DAILY 05/26/20 10/29/20 09/09/20 History hydralazine 50 mg PO TID 05/26/20 10/29/20 09/09/20 History metoprolol succinate 50 mg PO DAILY 05/26/20 10/29/20 09/09/20 History atorvastatin 20 mg PO BEDTIME 07/03/20 10/29/20 09/08/20 History divalproex 1,000 mg PO QPM 09/10/20 10/29/20 09/08/20 History ferrous sulfate 1 tab PO BID 09/10/20 10/29/20 09/09/20 History aspirin 1 tab PO QAM 10/05/20 10/29/20 Unknown History blood pressure monitor #1 ea 10/22/20 10/22/20 Unknown History blood pressure test kit-large #1 ea 10/22/20 10/22/20 Unknown History naloxone 4 mg/actuation nasal spray 1 spray INTRANASAL ONCE PRN 10/22/20 10/29/20 Unknown History ondansetron HCl [Zofran] 4 mg PO Q6H PRN 10/22/20 10/29/20 Unknown History oxycodone-acetaminophen 1 tab PO BID PRN 10/22/20 10/29/20 Unknown History <Mattie Roberts PA-C - Last Filed: 10/30/20 04:51> Physical Exam Vital Signs: Vital Signs: Last Vital Signs Temp 97 F 10/29/20 16:42 Pulse 104 H 10/29/20 22:32 Resp 19 10/29/20 22:32 BP 98/60 10/29/20 22:32 Pulse Ox 93 10/29/20 22:32 Body Mass Index 30.9 <Mattie Roberts PA-C - Last Filed: 10/30/20 04:51> Const: General: cooperative, healthy appearing, comfortable, no acute distress and well developed <Mattie Roberts PA-C - Last Filed: 10/30/20 04:51> Orientation/consciousness: patient oriented x3 <Mattie Roberst PA-C - Last Filed: 10/30/20 04:51> Limitations: no limitations <Mattie Roberts PA-C - Last Filed: 10/30/20 04:51> HENMT: Head: Yes normal to inspection <Mattie Roberts PA-C - Last Filed: 10/30/20 04:51> Eyes: General: appearance normal, both eyes and all related structures <Mattie Roberts PA-C - Last Filed: 10/30/20 04:51> Neck: Neck: Yes normal visual inspection and Yes full ROM <Mattie Roberts PA-C - Last Filed: 10/30/20 04:51> Resp: Effort & Inspection: normal respiratory effort and able to speak in complete sentences <Mattie Roberts PA-C - Last Filed: 10/30/20 04:51> Auscultation: rales bilateral in the lower lung parker <Mattie Roberts PA-C - Last Filed: 10/30/20 04:51> Cardio: Rate: regular rate <Mattie Roberts PA-C - Last Filed: 10/30/20 04:51> Rhythm: regular rhythm <Mattie Roberts PA-C Gina Last Filed: 10/30/20 04:51> Heart sounds: normal S1 and S2 <Mattie Roberts PA-C - Last Filed: 10/30/20 04:51> GI: Inspection: Yes normal to inspection <Mattie Roberts PA-C - Last Filed: 10/30/20 04:51> Palpation (GI): Soft to palpation and nontender <Mattie Roberts PA-C - Last Filed: 10/30/20 04:51> Skin: General skin exam: no rashes or lesions noted <Mattie Roberts PA-C - Last Filed: 10/30/20 04:51> Neuro: General: patient oriented x3 <Mattie Roberts PA-C - Last Filed: 10/30/20 04:51> Extrem: General: Yes pedal edema (1+ pitting bilaterally) <Mattie Roberts PA-C - Last Filed: 10/30/20 04:51> Results Labs CBC and Chem 7: : 10/30/20 05:58 10/30/20 05:58 <Mattie Roberts PA-C - Last Filed: 10/30/20 04:51> Labs: Laboratory Results - last 24 hr 10/29/20 10/29/20 10/29/20 19:27 19:28 19:28 MCV MCH MCHC RDW Plt Count MPV Immature Gran % (Auto) Neut % (Auto) Lymph % (Auto) [place] % (Auto) Eos % (Auto) Baso % (Auto) Lymph # (Auto) [place] # (Auto) Eos # (Auto) Baso # (Auto) Abs Immat Gran (auto) Absolute Neuts (auto) Absolute Nucleated RBC Nucleated RBC % (auto) Hold Blue Top SEE NOTE O2 Saturation ABG pH at Pt Temp ABG pH (Temp Correct) ABG pCO2 at Pt Temp ABG pCO2 (Temp Corrct ABG pO2 at Pt Temp ABG pO2 (Temp Correct ABG HCO3 ABG Base Excess (Actual) VBG pH VBG pCO2 VBG pO2 VBG HCO3 VBG O2 Saturation VBG Base Excess Anion Gap 16 Estim Creat Clear Calc 65.5 Estimated GFR 58 Random Glucose 98 Calcium 8.6 Magnesium 2.7 H Total Bilirubin 0.3 Direct Bilirubin 0.2 AST 10 ALT < 6 Alkaline Phosphatase 115 Ammonia 43 Troponin I High Sens B-Natriuretic Peptide Total Protein 6.5 Albumin 3.5 Lipase 15 Urine Color Urine Appearance Urine pH Ur Specific [place] Urine Protein Urine Glucose (UA) Urine Ketones Urine Blood Urine Nitrite Ur Leukocyte Esterase Urine RBC Urine WBC Ur Squamous Epith Cells Ur Renal Epithelial Cell Urine Bacteria Hyaline Casts Urine Mucus Urine Opiates Screen Ur Barbiturates Screen Valproic Acid 62.1 Ur Phencyclidine Scrn Ur Amphetamines Screen U Benzodiazepines Scrn Urine Cocaine Screen U Marijuana (THC) Screen 05/27/21 05/27/21 05/27/21 19:28 19:29 19:32 MCV 90.7 MCH 26.4 L MCHC 29.1 L RDW 16.8 H Plt Count 328 MPV 9.6 Immature Gran % (Auto) 2.7 H Neut % (Auto) 86.0 H Lymph % (Auto) 4.7 L [place] % (Auto) 6.4 Eos % (Auto) 0.0 Baso % (Auto) 0.2 Lymph # (Auto) 0.8 L [place] # (Auto) 1.1 Eos # (Auto) 0.0 Baso # (Auto) 0.0 Abs Immat Gran (auto) 0.45 H Absolute Neuts (auto) 14.6 H Absolute Nucleated RBC 0.030 H Nucleated RBC % (auto) 0.2 Hold Blue Top O2 Saturation ABG pH at Pt Temp ABG pH (Temp Correct) ABG pCO2 at Pt Temp ABG pCO2 (Temp Corrct ABG pO2 at Pt Temp ABG pO2 (Temp Correct ABG HCO3 ABG Base Excess (Actual) VBG pH 7.23 L VBG pCO2 79 VBG pO2 50 VBG HCO3 33 H VBG O2 Saturation 74.0 VBG Base Excess 3.9 Anion Gap Estim Creat Clear Calc Estimated GFR Random Glucose Calcium Magnesium Total Bilirubin Direct Bilirubin AST ALT Alkaline Phosphatase Ammonia Troponin I High Sens 4.9 B-Natriuretic Peptide 267 H Total Protein Albumin Lipase Urine Color Urine Appearance Urine pH Ur Specific [place] Urine Protein Urine Glucose (UA) Urine Ketones Urine Blood Urine Nitrite Ur Leukocyte Esterase Urine RBC Urine WBC Ur Squamous Epith Cells Ur Renal Epithelial Cell Urine Bacteria Hyaline Casts Urine Mucus Urine Opiates Screen Ur Barbiturates Screen Valproic Acid Ur Phencyclidine Scrn Ur Amphetamines Screen U Benzodiazepines Scrn Urine Cocaine Screen U Marijuana (THC) Screen 10/29/20 10/29/20 10/29/20 20:09 21:27 21:27 MCV MCH MCHC RDW Plt Count MPV Immature Gran % (Auto) Neut % (Auto) Lymph % (Auto) [place] % (Auto) Eos % (Auto) Baso % (Auto) Lymph # (Auto) [place] # (Auto) Eos # (Auto) Baso # (Auto) Abs Immat Gran (auto) Absolute Neuts (auto) Absolute Nucleated RBC Nucleated RBC % (auto) Hold Blue Top O2 Saturation 71.0 ABG pH at Pt Temp 7.27 L ABG pH (Temp Correct) 7.27 L ABG pCO2 at Pt Temp 70 H* ABG pCO2 (Temp Corrct 69 H* ABG pO2 at Pt Temp 47 L* ABG pO2 (Temp Correct 46 L* ABG HCO3 32 H ABG Base Excess (Actual) 3.9 VBG pH VBG pCO2 VBG pO2 VBG HCO3 VBG O2 Saturation VBG Base Excess Anion Gap Estim Creat Clear Calc Estimated GFR Random Glucose Calcium Magnesium Total Bilirubin Direct Bilirubin AST ALT Alkaline Phosphatase Ammonia Troponin I High Sens B-Natriuretic Peptide Total Protein Albumin Lipase Urine Color YELLOW Urine Appearance CLEAR Urine pH 6.0 Ur Specific [place] 1.015 Urine Protein 2+ H Urine Glucose (UA) NEG Urine Ketones NEG Urine Blood NEG Urine Nitrite NEG Ur Leukocyte Esterase NEG Urine RBC 0 Urine WBC 0 Ur Squamous Epith Cells TRACE Ur Renal Epithelial Cell TRACE Urine Bacteria TRACE Hyaline Casts 0-2 Urine Mucus TRACE Urine Opiates Screen POSITIVE H Ur Barbiturates Screen Not Detected Valproic Acid Ur Phencyclidine Scrn Not Detected Ur Amphetamines Screen Not Detected U Benzodiazepines Scrn Not Detected Urine Cocaine Screen Not Detected U Marijuana (THC) Screen Not Detected <Mattie Roberts PA-C - Last Filed: 10/30/20 04:51> Imaging Radiologist's Impressions: Impressions Chest X-Ray 10/29/20 16:55 IMPRESSION: New CHF. Left lower lobe atelectasis/consolidation similar to previous exams. <Mattie Roberts PA-C - Last Filed: 10/30/20 04:51> Assessment and Plan (1) Acute exacerbation of chronic obstructive pulmonary disease: Status: Acute <DAVE Faustin Last Filed: 10/30/20 04:51> Continue bipap, monitor vbg's <DAVE Faustin Last Filed: 10/30/20 04:51> (2) Acute hypotension: Status: Acute <DAVE Faustin Last Filed: 10/30/20 04:51> stable for now, continue to monitor as pt did receive lasxi <Mattie Roberts PA-C - Last Filed: 10/30/20 04:51> (3) Congestive heart failure: Status: Acute <Mattie Roberts PA-C - Last Filed: 10/30/20 04:51> Pt given 20mg IV lasix in ED, monitor <Mattie Roberts PA-C - Last Filed: 10/30/20 04:51> (4) Opioid overdose: Qualifiers: Injury intent: accidental or unintentional <Mattie Roberts PA-C - Last Filed: 10/30/20 04:51> Status: Acute <DAVE Faustin Last Filed: 10/30/20 04:51> Pt given Narcan in ED, will continue to monitor. Case mgmt consult sent as this is the 2nd time she has required Narcan from overdose of percocet. <Mattie Roberts PA-C - Last Filed: 10/30/20 04:51> Critical Care Time 45 minutes <DAVE Faustin Last Filed: 10/30/20 04:51>
[2020-10-29] MEDS: Heparin Sodium,Porcine 5,000 UNIT/ML VIAL 5000 UNIT SUBCUT (22:57)
[2020-10-29 23:02] LABS: COVID-19 Test Negative (Negative); IDNOW Serial# 9DD0AD1C
[2020-10-30] VITALS (23 sets, daily range): BP systolic 90–145; BP diastolic 52–86; PULSE 65–131; RESP 14–25; TEMP 36–37.4; O2SAT 92–98; BMI 31.9; BMI 27.8
[2020-10-30 00:14] LABS: Lactic Acid 1.5 mmol/L (0.5-2.0)
--- NOTE | 2020-10-30 00:29 | PC.NURSE ---
PT HAD RX BOTTLE WITH OXY/TYLENOL ON LABEL. BOTTLE HANDED OVER TO CAST SHELL GRINDER.
[2020-10-30 06:04] LABS: VBG HCO3 37 mmol/L (22-26); VBG pCO2 55 mmHg; VBG pH 7.44 (7.32-7.43); VBG pO2 38 mmHg
[2020-10-30 06:05] LABS: MANUAL DIFF FLAG NO
--- NOTE | 2020-10-30 06:15 | PC.NURSE ---
Addendum entered by Tatianna Mcneil RN 10/30/20 06:17: Skin intact. Bottle of oxycodone given to customer facilities supervisor, Jill Yu. Original Note: Admitted to ICU via ED approx 2330. Lethargic, Oriented x3, pleasant. Tolerated bipap overnight without issue. Occasional nonsustained bursts of afib/flutter 130's. self-limiting.
[2020-10-30 06:16] LABS: Basophils Percent Auto 0.1 % (0-2); Hematocrit 29.1 % (37-47); Hemoglobin 8.5 g/dl (12.0-16.0); Imm Gran Pct Auto 1.4 % (0.0-0.4); Lymphocytes Absolute Auto 1.3 X10*3/uL (1.2-4.9); Lymphocytes Percent Auto 8.7 % (20-40); Mean Corpuscular HGB Conc 29.2 g/dl (31.0-35.0); Mean Corpuscular Hemoglobin 25.9 pg (27.0-33.0); Mean Corpuscular Volume 88.7 fL (80-98); Mean Platelet Volume 9.9 fL (9.4-12.3); Monocytes Absolute Auto 1.2 X10*3/uL (0.1-1.2); Monocytes Percent Auto 8.3 % (2-11); NRBC Pct Auto 0.1 /100WBC (0.0-0.2); Neutrophils Absolute Auto 11.8 X10*3/uL (2.0-8.3); Neutrophils Percent Auto 81.5 % (45-73); Platelet Count 329 X10*3/uL (160-400); Red Blood Count 3.28 X10*6/uL (4.20-5.50); Red Cell Distribution Width 16.7 % (11.0-16.0); White Blood Count 14.5 X10*3/uL (4.8-10.8)
[2020-10-30 06:26] LABS: INTERNATIONAL NORM RATIO 1.1 (0.9-1.1); Prothrombin Time 13.3 SEC (10.8-13.0)
[2020-10-30 06:27] LABS: Partial Thromboplastin Time 32.6 SEC (24.1-38.0)
[2020-10-30 06:42] LABS: Venous Blood Gas Refer to POC result
[2020-10-30 07:01] LABS: Anion Gap 17 (12-20); Blood Urea Nitrogen 18 mg/dL (9-16); Calcium 8.3 mg/dL (8.4-10.2); Carbon Dioxide 28 mmol/L (22-29); Chloride 95 mmol/L (96-108); Creatinine Clr Calc Pharmacy 78.6; Estimated Glomerular Filt Rate > 60; Glucose Random 83 mg/dL (60-115); Phosphorus 4.2 mg/dL (2.7-4.5); Potassium 4.3 mmol/L (3.3-5.1); Sodium 136 mmol/L (135-145)
[2020-10-30] MEDS: Albuterol/Iprat 2.5/0.5MG 3 ML AMPUL.NEB INHALE ×3 (07:56→20:17)
[2020-10-30] MEDS: carvediloL 3.125 MG TABLET PO ×2 (08:32→20:44)
[2020-10-30] MEDS: dilTIAZem HCL 125 MG in 0.9 % Sodium Chloride 100 ML IVCONT ×2 (08:34→23:44)
[2020-10-30 11:32] LABS: VBG Base Excess 12.8 mmol/L; VBG HCO3 39 mmol/L (22-26); VBG pCO2 58 mmHg; VBG pH 7.43 (7.32-7.43); VBG pO2 45 mmHg
[2020-10-30] MEDS: Divalproex Sodium ER 500 MG TAB.ER.24H PO (11:33)
[2020-10-30 11:37] LABS: Venous Blood Gas Refer to POC result
--- NOTE | 2020-10-30 11:48 | P.PNCC_ITS ---
Subjective Subjective Date of Service: 10/30/20 Interval History: 55-year-old female with obesity/hypoventilation on 2 L of oxygen at home complains of exertional dyspnea but was noted to be lethargic and blood gas again noted acute on chronic hypercarbic respiratory failure and he has presented like this on a number of occasions takes oxycodone and I believe tramadol in addition at home and stent overnight comfortable on BiPAP One does Lasix given because of acute on chronic diastolic CHF with paroxysmal atrial fibrillation Underlying bipolar disorder on divalproex and she has a known hypertensive and hyperlipidemic and chest x-rays clear no evidence of febrile illness no white co unt with with left shift Critical Care Time (minutes): 25 Comment: Follow-up blood gas several hours after discontinuation of BiPAP reveals that she is back in her chronic compensated state with pCO2 of 50 a and compensated pH and she has already eaten breakfast and is in the middle of lunch and comfortable Status post 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 and is 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 Physical Exam Vital Signs: Vital Signs: Last Vital Signs Temp 96.8 F 10/30/20 08:00 Pulse 90 10/30/20 11:00 Resp 22 H 10/30/20 11:00 BP 110/61 10/30/20 11:00 Pulse Ox 94 10/30/20 11:00 Oxygen Flow Rate 3 10/29/20 21:35 Body Mass Index 27.8 Const: Other: Alert and oriented and nonfocal the Diminished breath sounds but no adventitious sounds Normal S1 normal S2 no gallops no murmurs and good bilateral carotid upstrokes Abdomen benign Objective Data Labs CBC & Chem 7: 10/30/20 05:58 10/30/20 05:58 Labs: Laboratory Results - last 24 hr 10/29/20 10/29/20 10/29/20 19:27 19:28 19:28 WBC RBC Hgb Hct MCV MCH MCHC RDW Plt Count MPV Immature Gran % (Auto) Neut % (Auto) Lymph % (Auto) [place] % (Auto) Eos % (Auto) Baso % (Auto) Lymph # (Auto) [place] # (Auto) Eos # (Auto) Baso # (Auto) Abs Immat Gran (auto) Absolute Neuts (auto) Absolute Nucleated RBC Nucleated RBC % (auto) PT INR APTT Hold Blue Top SEE NOTE O2 Saturation ABG pH at Pt Temp ABG pH (Temp Correct) ABG pCO2 at Pt Temp ABG pCO2 (Temp Corrct ABG pO2 at Pt Temp ABG pO2 (Temp Correct ABG HCO3 ABG Base Excess (Actual) VBG pH VBG pCO2 VBG pO2 VBG HCO3 VBG O2 Saturation VBG Base Excess Sodium 132 L Potassium 4.9 D Chloride 91 L Carbon Dioxide 30 H Anion Gap 16 BUN 16 Creatinine 0.98 Estim Creat Clear Calc 65.5 Estimated GFR 58 Random Glucose 98 Lactic Acid Calcium 8.6 Phosphorus Magnesium 2.7 H Total Bilirubin 0.3 Direct Bilirubin 0.2 AST 10 ALT < 6 Alkaline Phosphatase 115 Ammonia 43 Troponin I High Sens B-Natriuretic Peptide Total Protein 6.5 Albumin 3.5 Lipase 15 Urine Color Urine Appearance Urine pH Ur Specific [place] Urine Protein Urine Glucose (UA) Urine Ketones Urine Blood Urine Nitrite Ur Leukocyte Esterase Urine RBC Urine WBC Ur Squamous Epith Cells Ur Renal Epithelial Cell Urine Bacteria Hyaline Casts Urine Mucus Urine Opiates Screen Ur Barbiturates Screen Valproic Acid 62.1 Ur Phencyclidine Scrn Ur Amphetamines Screen U Benzodiazepines Scrn Urine Cocaine Screen U Marijuana (THC) Screen COVID-19 (ANA) COVID-19 Clin Com 10/29/20 10/29/20 10/29/20 19:28 19:29 19:32 WBC 16.9 H RBC 3.64 L Hgb 9.6 L Hct 33.0 L MCV 90.7 MCH 26.4 L MCHC 29.1 L RDW 16.8 H Plt Count 328 MPV 9.6 Immature Gran % (Auto) 2.7 H Neut % (Auto) 86.0 H Lymph % (Auto) 4.7 L [place] % (Auto) 6.4 Eos % (Auto) 0.0 Baso % (Auto) 0.2 Lymph # (Auto) 0.8 L [place] # (Auto) 1.1 Eos # (Auto) 0.0 Baso # (Auto) 0.0 Abs Immat Gran (auto) 0.45 H Absolute Neuts (auto) 14.6 H Absolute Nucleated RBC 0.030 H Nucleated RBC % (auto) 0.2 PT INR APTT Hold Blue Top O2 Saturation ABG pH at Pt Temp ABG pH (Temp Correct) ABG pCO2 at Pt Temp ABG pCO2 (Temp Corrct ABG pO2 at Pt Temp ABG pO2 (Temp Correct ABG HCO3 ABG Base Excess (Actual) VBG pH 7.23 L VBG pCO2 79 VBG pO2 50 VBG HCO3 33 H VBG O2 Saturation 74.0 VBG Base Excess 3.9 Sodium Potassium Chloride Carbon Dioxide Anion Gap BUN Creatinine Estim Creat Clear Calc Estimated GFR Random Glucose Lactic Acid Calcium Phosphorus Magnesium Total Bilirubin Direct Bilirubin AST ALT Alkaline Phosphatase Ammonia Troponin I High Sens 4.9 B-Natriuretic Peptide 267 H Total Protein Albumin Lipase Urine Color Urine Appearance Urine pH Ur Specific [place] Urine Protein Urine Glucose (UA) Urine Ketones Urine Blood Urine Nitrite Ur Leukocyte Esterase Urine RBC Urine WBC Ur Squamous Epith Cells Ur Renal Epithelial Cell Urine Bacteria Hyaline Casts Urine Mucus Urine Opiates Screen Ur Barbiturates Screen Valproic Acid Ur Phencyclidine Scrn Ur Amphetamines Screen U Benzodiazepines Scrn Urine Cocaine Screen U Marijuana (THC) Screen COVID-19 (ANA) COVID-19 Clin [facility] 10/29/20 10/29/20 10/29/20 20:09 21:27 21:27 WBC RBC Hgb Hct MCV MCH MCHC RDW Plt Count MPV Immature Gran % (Auto) Neut % (Auto) Lymph % (Auto) [place] % (Auto) Eos % (Auto) Baso % (Auto) Lymph # (Auto) [place] # (Auto) Eos # (Auto) Baso # (Auto) Abs Immat Gran (auto) Absolute Neuts (auto) Absolute Nucleated RBC Nucleated RBC % (auto) PT INR APTT Hold Blue Top O2 Saturation 71.0 ABG pH at Pt Temp 7.27 L ABG pH (Temp Correct) 7.27 L ABG pCO2 at Pt Temp 70 H* ABG pCO2 (Temp Corrct 69 H* ABG pO2 at Pt Temp 47 L* ABG pO2 (Temp Correct 46 L* ABG HCO3 32 H ABG Base Excess (Actual) 3.9 VBG pH VBG pCO2 VBG pO2 VBG HCO3 VBG O2 Saturation VBG Base Excess Sodium Potassium Chloride Carbon Dioxide Anion Gap BUN Creatinine Estim Creat Clear Calc Estimated GFR Random Glucose Lactic Acid Calcium Phosphorus Magnesium Total Bilirubin Direct Bilirubin AST ALT Alkaline Phosphatase Ammonia Troponin I High Sens B-Natriuretic Peptide Total Protein Albumin Lipase Urine Color YELLOW Urine Appearance CLEAR Urine pH 6.0 Ur Specific [place] 1.015 Urine Protein 2+ H Urine Glucose (UA) NEG Urine Ketones NEG Urine Blood NEG Urine Nitrite NEG Ur Leukocyte Esterase NEG Urine RBC 0 Urine WBC 0 Ur Squamous Epith Cells TRACE Ur Renal Epithelial Cell TRACE Urine Bacteria TRACE Hyaline Casts 0-2 Urine Mucus TRACE Urine Opiates Screen POSITIVE H Ur Barbiturates Screen Not Detected Valproic Acid Ur Phencyclidine Scrn Not Detected Ur Amphetamines Screen Not Detected U Benzodiazepines Scrn Not Detected Urine Cocaine Screen Not Detected U Marijuana (THC) Screen Not Detected COVID-19 (ANA) COVID-19 Clin Com 10/29/20 10/29/20 10/30/20 22:39 23:40 05:58 WBC 14.5 H RBC 3.28 L Hgb 8.5 L Hct 29.1 L MCV 88.7 MCH 25.9 L MCHC 29.2 L RDW 16.7 H Plt Count 329 MPV 9.9 Immature Gran % (Auto) 1.4 H Neut % (Auto) 81.5 H Lymph % (Auto) 8.7 L [place] % (Auto) 8.3 Eos % (Auto) 0.0 Baso % (Auto) 0.1 Lymph # (Auto) 1.3 [place] # (Auto) 1.2 Eos # (Auto) 0.0 Baso # (Auto) 0.0 Abs Immat Gran (auto) 0.20 H Absolute Neuts (auto) 11.8 H Absolute Nucleated RBC 0.020 H Nucleated RBC % (auto) 0.1 PT INR APTT Hold Blue Top O2 Saturation ABG pH at Pt Temp ABG pH (Temp Correct) ABG pCO2 at Pt Temp ABG pCO2 (Temp Corrct ABG pO2 at Pt Temp ABG pO2 (Temp Correct ABG HCO3 ABG Base Excess (Actual) VBG pH VBG pCO2 VBG pO2 VBG HCO3 VBG O2 Saturation VBG Base Excess Sodium Potassium Chloride Carbon Dioxide Anion Gap BUN Creatinine Estim Creat Clear Calc Estimated GFR Random Glucose Lactic Acid 1.5 Calcium Phosphorus Magnesium Total Bilirubin Direct Bilirubin AST ALT Alkaline Phosphatase Ammonia Troponin I High Sens B-Natriuretic Peptide Total Protein Albumin Lipase Urine Color Urine Appearance Urine pH Ur Specific [place] Urine Protein Urine Glucose (UA) Urine Ketones Urine Blood Urine Nitrite Ur Leukocyte Esterase Urine RBC Urine WBC Ur Squamous Epith Cells Ur Renal Epithelial Cell Urine Bacteria Hyaline Casts Urine Mucus Urine Opiates Screen Ur Barbiturates Screen Valproic Acid Ur Phencyclidine Scrn Ur Amphetamines Screen U Benzodiazepines Scrn Urine Cocaine Screen U Marijuana (THC) Screen COVID-19 (ANA) Negative COVID-19 Clin Com See Note 10/30/20 10/30/20 10/30/20 05:58 05:58 05:58 WBC RBC Hgb Hct MCV MCH MCHC RDW Plt Count MPV Immature Gran % (Auto) Neut % (Auto) Lymph % (Auto) [place] % (Auto) Eos % (Auto) Baso % (Auto) Lymph # (Auto) [place] # (Auto) Eos # (Auto) Baso # (Auto) Abs Immat Gran (auto) Absolute Neuts (auto) Absolute Nucleated RBC Nucleated RBC % (auto) PT 13.3 H INR 1.1 APTT 32.6 Hold Blue Top O2 Saturation ABG pH at Pt Temp ABG pH (Temp Correct) ABG pCO2 at Pt Temp ABG pCO2 (Temp Corrct ABG pO2 at Pt Temp ABG pO2 (Temp Correct ABG HCO3 ABG Base Excess (Actual) VBG pH 7.44 H VBG pCO2 55 VBG pO2 38 VBG HCO3 37 H VBG O2 Saturation 59.0 VBG Base Excess 12.0 Sodium 136 Potassium 4.3 Chloride 95 L Carbon Dioxide 28 Anion Gap 17 BUN 18 H Creatinine 0.83 Estim Creat Clear Calc 78.6 Estimated GFR > 60 Random Glucose 83 Lactic Acid Calcium 8.3 L Phosphorus 4.2 Magnesium 2.0 Total Bilirubin Direct Bilirubin AST ALT Alkaline Phosphatase Ammonia Troponin I High Sens B-Natriuretic Peptide Total Protein Albumin Lipase Urine Color Urine Appearance Urine pH Ur Specific [place] Urine Protein Urine Glucose (UA) Urine Ketones Urine Blood Urine Nitrite Ur Leukocyte Esterase Urine RBC Urine WBC Ur Squamous Epith Cells Ur Renal Epithelial Cell Urine Bacteria Hyaline Casts Urine Mucus Urine Opiates Screen Ur Barbiturates Screen Valproic Acid Ur Phencyclidine Scrn Ur Amphetamines Screen U Benzodiazepines Scrn Urine Cocaine Screen U Marijuana (THC) Screen COVID-19 (ANA) COVID-19 [employer] Com 10/30/20 11:26 WBC RBC Hgb Hct MCV MCH MCHC RDW Plt Count MPV Immature Gran % (Auto) Neut % (Auto) Lymph % (Auto) [place] % (Auto) Eos % (Auto) Baso % (Auto) Lymph # (Auto) [place] # (Auto) Eos # (Auto) Baso # (Auto) Abs Immat Gran (auto) Absolute Neuts (auto) Absolute Nucleated RBC Nucleated RBC % (auto) PT INR APTT Hold Blue Top O2 Saturation ABG pH at Pt Temp ABG pH (Temp Correct) ABG pCO2 at Pt Temp ABG pCO2 (Temp Corrct ABG pO2 at Pt Temp ABG pO2 (Temp Correct ABG HCO3 ABG Base Excess (Actual) VBG pH 7.43 VBG pCO2 58 VBG pO2 45 VBG HCO3 39 H VBG O2 Saturation 68.0 VBG Base Excess 12.8 Sodium Potassium Chloride Carbon Dioxide Anion Gap BUN Creatinine Estim Creat Clear Calc Estimated GFR Random Glucose Lactic Acid Calcium Phosphorus Magnesium Total Bilirubin Direct Bilirubin AST ALT Alkaline Phosphatase Ammonia Troponin I High Sens B-Natriuretic Peptide Total Protein Albumin Lipase Urine Color Urine Appearance Urine pH Ur Specific [place] Urine Protein Urine Glucose (UA) Urine Ketones Urine Blood Urine Nitrite Ur Leukocyte Esterase Urine RBC Urine WBC Ur Squamous Epith Cells Ur Renal Epithelial Cell Urine Bacteria Hyaline Casts Urine Mucus Urine Opiates Screen Ur Barbiturates Screen Valproic Acid Ur Phencyclidine Scrn Ur Amphetamines Screen U Benzodiazepines Scrn Urine Cocaine Screen U Marijuana (THC) Screen COVID-19 (ANA) COVID-19 Clin Com Progress Note: A&P Assessment and plan (1) Congestive heart failure: Status: Acute (2) Acute exacerbation of chronic obstructive pulmonary disease: Status: Acute (3) Acute hypotension: Status: Acute (4) Respiratory failure with hypoxia and hypercapnia: Status: Acute (5) Restrictive lung disease: Status: Acute (6) COPD (chronic obstructive pulmonary disease): Status: Acute (7) Opioid overdose: Status: Acute (8) Essential hypertension: Status: Acute (9) Other and unspecified hyperlipidemia: Status: Acute Assessment and Plan: She did clinically respond to Narcan and had a comfortable night on BiPAP and currently on nasal cannula up in a chair and eating has completely compensated pCO2 and pH and the altered mental status seems to have been precipitated by the opioids probably in conjunction with tramadol and clinically there was a questionable component of increased intrathoracic volume based on acute on chronic diastolic CHF I initiated Coreg at 3.125 mg q.12 which can be titrated to 6.25 mg as needed for the paroxysmal atrial fibrillation at which time the Cardizem drip which is 8 2.5 milligrams/hour him probably be discontinued Coreg might suffice for blood pressure instead of the amlodipine and or hydralazine
--- NOTE | 2020-10-30 12:33 | MHC.CM.PN ---
Met with pt to discuss d/c planning: Pt resides with spouse, uses a rollator walker, has [employer] for home O2 and is active with [facility] for RN/PT visits. Her spouse assists with cooking and transportation as does her extended family. IMM signed: HCP on file and reviewed: ICU PA had consulted CM for assistance with pts hx of Percocet use - specifically, pt requiring Narcan on admissions. Per discussion with pt, she uses 2-3 Percocet per day, down from 5 to treat her chronic back pain. She states her PCP, Dr. Oconnor is aware and has been assisting her reduce her amounts. Pt will d/c to home with existing [facility] services and transportation from family.
--- NOTE | 2020-10-30 15:12 | MHC.CM.PN ---
Pt is presently on BiPAP support and unable to participate in assessment. Dtr and HCP Kinza in room - states she has been staying with pt and spouse since COVID and has been assisting with care needs. Pt does not have services and uses a walker. Kinza very overwhelmed with being primary caregiver and is appreciative of any assistance. Pt has end stage lung fibrosis and will likely need STR. Broad referrals placed and will await response. Kinza will bring in a copy of the HCP. CM to follow for changes
[2020-10-30] MEDS: dilTIAZem HCL 30 MG TABLET PO ×2 (17:10→22:26)
[2020-10-30] MEDS: LORazepam 0.5 MG TABLET PO (18:34)
[2020-10-30] MEDS: Divalproex Sodium ER 500 MG TAB.ER.24H 1000 MG PO (20:43)
[2020-10-31] VITALS (16 sets, daily range): BP systolic 109–178; BP diastolic 65–88; PULSE 75–128; RESP 18–21; TEMP 36.2–37.3; O2SAT 92–96; BMI 32.3
[2020-10-31] MEDS: dilTIAZem HCL 30 MG TABLET PO ×3 (04:45→11:46)
[2020-10-31] MEDS: Albuterol/Iprat 2.5/0.5MG 3 ML AMPUL.NEB INHALE (07:45)
[2020-10-31] MEDS: Divalproex Sodium ER 500 MG TAB.ER.24H PO (07:58)
[2020-10-31] MEDS: carvediloL 3.125 MG TABLET PO (07:58)
--- NOTE | 2020-10-31 11:29 | HO.PM.IMPN ---
Subjective Subjective Date of Service: 10/31/20 Interval History: Patient awake alert this morning complaining of mild palpitations of 2 weeks duration and shortness of breath, feels congested, is awake alert to place and person. Has chronic back pain for which she takes 10 mg Percocet twice daily ROS General no headache, no dizziness no fever chills. CVS no chest pain, + palpitation. Respiratory sob. Gastrointestinal no nausea ,no vomiting, no abdominal pain Physical Exam Vital Signs: Vital Signs: Last Vital Signs Temp 98.7 F 10/31/20 11:25 Pulse 82 10/31/20 11:25 Resp 20 10/31/20 11:25 BP 143/88 H 10/31/20 11:25 Pulse Ox 95 10/31/20 11:25 Oxygen Flow Rate 3 10/29/20 21:35 Body Mass Index 27.8 General patient resting comfortably in no acute distress. Neck supple no JVD. CVS irregular rate rhythm, ventricular rate fluctuating from 100-130 Respiratory lungs clear to auscultation, no respiratory distress, no wheeze, no rhonchi. Gastrointestinal abdomen soft, nontender, bowel sounds audible, no guarding , no rigidity. Extremities no edema. Neuro nonfocal Skin no rash Objective Data Current Medications Generic Name Dose Route Start Last Admin Trade Name Freq PRN Reason Stop Dose Admin Aspirin 81 mg 10/31/20 11:30 Aspirin Enteric Coated 81 Mg Tablet.Dr CHRISTOS DE LA TORRE [facility] Atorvastatin Calcium 20 mg 10/31/20 21:00 Atorvastatin Calcium 20 Mg Tablet PO BEDTIME [facility] Carvedilol 3.125 mg 10/30/20 09:00 10/31/20 07:58 Carvedilol 3.125 Mg Tablet PO 3.125 mg BID [facility] Administration Protocol Diltiazem HCl 60 mg 10/31/20 11:18 Diltiazem Hcl 30 Mg Tablet PO Q6H [facility] Protocol Divalproex Sodium 1,000 mg 10/30/20 21:00 10/30/20 20:43 Divalproex Sodium Er 500 Mg Tab.Er.24h PO 1,000 mg BEDTIME LONG Administration Divalproex Sodium 500 mg 10/30/20 11:20 10/31/20 07:58 Divalproex Sodium Er 500 Mg Tab.Er.24h PO 500 mg DAILY [facility] Administration Duloxetine HCl 60 mg 10/31/20 21:00 Duloxetine Hcl 60 Mg Capsule.Dr SHER BEDTIME [facility] Fluticasone/Vilanterol 1 puff 11/01/20 09:00 Fluticasone/Vilanterol 100/25 Blst.W.Dev INHALE DAILY [facility] Diltiazem HCl 125 mg/ Sodium 125 mls @ 2.5 mls/hr 10/30/20 08:15 10/31/20 09:43 Chloride IVCONT Not Given .Q24H [facility] Protocol 2.5 MG/HR Levalbuterol HCl 1.25 mg 10/31/20 11:30 Levalbuterol Hcl 1.25 Mg/0.5 Ml Vial.Neb INHALE Q6H [facility] Magnesium Oxide 400 mg 10/31/20 21:00 Magnesium Oxide 400 Mg Tablet PO BID [facility] Non-Formulary Medication 1 tab 10/31/20 21:00 Ferrous Sulfate PO BID [facility] Omeprazole 20 mg 10/31/20 21:00 Omeprazole [address] SHER BID [facility] Pharmacy Consult 1 each 10/29/20 21:03 Consult Rx Perform Med Rec MISCELLANE ONCE PRN Consult order Labs CBC & Chem 7: 10/30/20 05:58 10/30/20 05:58 Microbiology Microbiology Results: Microbiology 10/29/20 23:40 Blood - Venous Blood Culture - Preliminary No growth after 24 hours. 10/29/20 23:40 Blood - Venous Blood Culture - Preliminary No growth after 24 hours. Assessment and Plan (1) Respiratory failure with hypoxia and hypercapnia: Status: Acute (2) COPD (chronic obstructive pulmonary disease): Status: Acute (3) Atrial fibrillation with rapid ventricular response: Status: Acute (4) Essential hypertension: Status: Acute Assessment and Plan: 55-year-old female with past medical history of acute on chronic respiratory failure on baseline 2.5 L of oxygen, CHF, bipolar disorder, CAD, depression, fibromyalgia, HLD, HTN, hypoventilation associated with obesity, Left lower lobe poorly differentiated carcinoma with LLL lobectomy and mediastinal lymphadenectomy on 09/01/[address] Cota at [facility], she also has a hx of sigmoid colon adenocarcinoma with colonoscopy on 08/06/2020, patient was referred to Dr Wray, the surgery has not taken place yet, according to the medical records. Of note, pt is on opioids 2 x daily for chronic back pain and also is on Klonopin. Patient came to the emergency department for exertional shortness of breath x1 day and was noted to be lethargic but able to answer all questions, she recived Narcan, and became more alert and oriented. Labs revealed an elevated WBC at 16.9, ABG revealed respiratory acidosis at 7.27//70 47/30 to with a base excess of 3.9, slight hyponatremia at 130 to, hypochloremia at 91 and bicarb at 30. BNP 267, tox screen was positive for opiates, will continue home inhalers including Breo Ellipta and change DuoNeb to Xopenex as needed Acute hypoxic and hypercarbic respiratory failure due to narcotic use Awake alert no distress. Patient treated in ICU with BiPAP, repeat ABGs were normalized therefore patient transferred to intermediate care unit continue baseline oxygen 2.5 L, no evidence of acute COPD exacerbation will continue home inhalers including Breo Ellipta and change DuoNeb to Xopenex as needed. Acute encephalopathy due to narcotic use resolved advice To abstain from high-dose narcotics patient primary care physician is switching her from Percocet to tramadol advised only to use tramadol for severe back pain Atrial fibrillation with RVR c/o palpitations Patient has history of atrial fibrillation at home she takes metoprolol 50 mg, Eliquis is held for upcoming surgery In the ICU patient was placed on Coreg 3.125 mg twice daily and was subsequently started on IV Cardizem drip, will place patient on by mouth Cardizem 60 mg q.6 hours DC Cardizem drip Increased dose of Coreg to 6.25 b.i.d. and due to upcoming surgery will consult Cardiology to adjust medications. Hypertension Noted to have elevated blood pressure patient home medications amlodipine and hydralazine were held in the ICU due to hypotension and patient was placed on Coreg BP is trending up therefore will resume hydralazine and will discuss further medication management with Cardiology History of COPD no acute exacerbation Adeno carcinoma sigmoid colon follow-up with general surgery for resection. DVT prophylaxis will add lovenox
[2020-10-31] MEDS: Aspirin Enteric Coated 81 MG TABLET.DR PO (11:46)
[2020-10-31] MEDS: Omeprazole 20 MG CAPSULE.DR PO (16:18)
[2020-10-31] MEDS: dilTIAZem HCL 30 MG TABLET 60 MG PO ×2 (16:18→23:42)
[2020-10-31] MEDS: Enoxaparin Sodium 40 MG/0.4 ML SYRINGE SUBCUT (17:25)
[2020-10-31] MEDS: traMADoL HCL 50 MG TABLET PO (17:39)
[2020-10-31] MEDS: DULoxetine HCl 60 MG CAPSULE.DR PO (20:20)
[2020-10-31] MEDS: Magnesium Oxide 400 MG TABLET PO (20:20)
[2020-10-31] MEDS: Atorvastatin Calcium 20 MG TABLET PO (20:20)
[2020-10-31] MEDS: Divalproex Sodium ER 500 MG TAB.ER.24H 1000 MG PO (20:20)
[2020-10-31] MEDS: Ferrous Sulfate 324 MG TABLET.DR PO (20:20)
[2020-10-31] MEDS: hydrALAZINE HCl 25 MG TABLET PO (20:21)
[2020-10-31] MEDS: carvediloL 6.25 MG TABLET PO (20:21)
[2020-10-31] MEDS: hydrOXYzine HCL 25 MG TABLET PO (20:44)
[2020-11-01] VITALS (17 sets, daily range): BP systolic 100–167; BP diastolic 53–82; PULSE 57–100; RESP 18–20; TEMP 35.9–37; O2SAT 90–98
[2020-11-01] MEDS: traMADoL HCL 50 MG TABLET PO ×3 (01:25→17:54)
[2020-11-01] MEDS: Omeprazole 20 MG CAPSULE.DR PO ×2 (05:32→17:10)
[2020-11-01] MEDS: dilTIAZem HCL 30 MG TABLET 60 MG PO ×3 (05:32→17:09)
[2020-11-01] MEDS: Ferrous Sulfate 324 MG TABLET.DR PO ×2 (08:08→20:25)
[2020-11-01] MEDS: Aspirin Enteric Coated 81 MG TABLET.DR PO (08:09)
[2020-11-01] MEDS: carvediloL 6.25 MG TABLET PO ×2 (08:09→20:24)
[2020-11-01] MEDS: Magnesium Oxide 400 MG TABLET PO ×2 (08:09→20:15)
[2020-11-01] MEDS: Fluticasone/Vilanterol 100/25 BLST.W.DEV 1 PUFF INHALE (08:10)
[2020-11-01] MEDS: Divalproex Sodium ER 500 MG TAB.ER.24H PO (08:10)
[2020-11-01] MEDS: hydrALAZINE HCl 25 MG TABLET PO ×3 (08:10→20:16)
[2020-11-01] MEDS: hydrOXYzine HCL 25 MG TABLET PO ×2 (10:43→17:55)
--- NOTE | 2020-11-01 11:20 | P.PNIM_ITS ---
Subjective Subjective Date of Service: 11/01/20 Interval History: Seen in f/u for new afib, presently rate is better Review of Systems Gen: no fever Resp: no sob, no cough CV: no chest, no DUNN, no plapitation GI: No n/v, no abd pain Neuro: No confusion Physical Exam Vital Signs: Vital Signs: Last Vital Signs Temp 97.6 F 11/01/20 07:38 Pulse 69 11/01/20 08:12 Resp 20 11/01/20 07:38 BP 102/68 11/01/20 08:10 Pulse Ox 91 L 11/01/20 07:38 Oxygen Flow Rate 3 10/29/20 21:35 Body Mass Index 32.3 Const: Other: General: AO X 3, no acute distress Resp: CTA bilateral CVS: S1, iregu GI: +BS, NT, no distention Skin: No rash Neuro: motor grossly intact Psych: appropriate affect Objective Data Current Medications Generic Name Dose Route Start Last Admin Trade Name Freq PRN Reason Stop Dose Admin Aspirin 81 mg 10/31/20 11:30 11/01/20 08:09 Aspirin Enteric Coated 81 Mg Tablet. PO 81 mg DAILY LONG Administration Atorvastatin Calcium 20 mg 10/31/20 21:00 10/31/20 20:20 Atorvastatin Calcium 20 Mg Tablet PO 20 mg BEDTIME LONG Administration Carvedilol 6.25 mg 10/31/20 21:00 11/01/20 08:09 Carvedilol 6.25 Mg Tablet PO 6.25 mg BID LONG Administration Protocol Diltiazem HCl 60 mg 10/31/20 18:00 11/01/20 05:32 Diltiazem Hcl 30 Mg Tablet PO 60 mg Q6H LONG Administration Protocol Divalproex Sodium 1,000 mg 10/30/20 21:00 10/31/20 20:20 Divalproex Sodium Er 500 Mg Tab.Er.24h PO 1,000 mg BEDTIME LONG Administration Divalproex Sodium 500 mg 10/30/20 11:20 11/01/20 08:10 Divalproex Sodium Er 500 Mg Tab.Er.24h PO 500 mg DAILY LONG Administration Duloxetine HCl 60 mg 10/31/20 21:00 10/31/20 20:20 Duloxetine Hcl 60 Mg Capsule. PO 60 mg BEDTIME LONG Administration Enoxaparin Sodium 40 mg 10/31/20 17:00 10/31/20 17:25 Enoxaparin Sodium 40 Mg/0.4 Ml Syringe SUBCUT 40 mg Q24H LONG Administration Ferrous Sulfate 324 mg 10/31/20 21:00 11/01/20 08:08 Ferrous Sulfate 324 Mg Tablet. PO 324 mg BID LONG Administration Fluticasone/Vilanterol 1 puff 11/01/20 09:00 11/01/20 08:10 Fluticasone/Vilanterol 100/25 Blst.W.Dev INHALE 1 puff DAILY [facility] Administration Hydralazine HCl 25 mg 10/31/20 21:00 11/01/20 08:10 Hydralazine Hcl 25 Mg Tablet PO 25 mg TID [facility] Administration Protocol Hydroxyzine HCl 25 mg 10/31/20 20:27 11/01/20 10:43 Hydroxyzine Hcl 25 Mg Tablet PO 25 mg Q6H PRN Administration anxiety/restlessness Diltiazem HCl 125 mg/ Sodium 125 mls @ 2.5 mls/hr 10/30/20 08:15 11/01/20 08:36 Chloride IVCONT Not Given .Q24H [facility] Protocol 2.5 MG/HR Levalbuterol HCl 1.25 mg 10/31/20 12:00 11/01/20 06:02 Levalbuterol Hcl 1.25 Mg/0.5 Ml Vial.Neb INHALE Not Given RQ6H [facility] Magnesium Oxide 400 mg 10/31/20 21:00 11/01/20 08:09 Magnesium Oxide 400 Mg Tablet PO 400 mg BID [facility] Administration Omeprazole 20 mg 10/31/20 16:30 11/01/20 05:32 Omeprazole 20 Mg Capsule. PO 20 mg BID@0630,9710 [facility] Administration Pharmacy Consult 1 each 10/29/20 21:03 Consult Rx Perform Med Rec MISCELLANE ONCE PRN Consult order Tramadol HCl 50 mg 10/31/20 11:30 11/01/20 09:35 Tramadol Hcl 50 Mg Tablet PO 50 mg Q8H PRN Administration Pain, Severe (Pain Scale 7-10) Labs CBC & Chem 7: 10/30/20 05:58 10/30/20 05:58 Microbiology Microbiology Results: Microbiology 10/29/20 23:40 Blood - Venous Blood Culture - Preliminary No growth after 48 hours. 10/29/20 23:40 Blood - Venous Blood Culture - Preliminary No growth after 48 hours. Assessment and Plan (1) Respiratory failure with hypoxia and hypercapnia: Status: Acute (2) COPD (chronic obstructive pulmonary disease): Status: Acute (3) Atrial fibrillation with rapid ventricular response: Status: Acute (4) Essential hypertension: Status: Acute Assessment and Plan: 55-year-old female with past medical history of acute on chronic respiratory failure on baseline 2.5 L of oxygen, CHF, bipolar disorder, CAD, depression, fibromyalgia, HLD, HTN, hypoventilation associated with obesity, Left lower lobe poorly differentiated carcinoma with LLL lobectomy and mediastinal lymphadenectomy on 09/01/[address] Cota at [facility], she also has a hx of sigmoid colon adenocarcinoma with colonoscopy on 08/06/2020, patient was referred to Dr Wray, the surgery has not taken place yet, according to the medical records. Of note, pt is on opioids 2 x daily for chronic back pain and also is on Klonopin. Patient came to the emergency department for exertional shortness of breath x1 day and was noted to be lethargic but able to answer all questions, she recived Narcan, and became more alert and oriented. Labs revealed an elevated WBC at 16.9, ABG revealed respiratory acidosis at 7.27//70 47/30 to with a base excess of 3.9, slight hyponatremia at 130 to, hypochloremia at 91 and bicarb at 30. BNP 267, tox screen was positive for opiates, will continue home inhalers including Breo Ellipta and change DuoNeb to Xopenex as needed Acute hypoxic and hypercarbic respiratory failure due to narcotic use Awake alert no distress. Patient treated in ICU with BiPAP, repeat ABGs were normalized therefore patient transferred to intermediate care unit continue baseline oxygen 2.5 L, no evidence of acute COPD exacerbation will continue home inhalers including Breo Ellipta and change DuoNeb to Xopenex as n eeded. Acute encephalopathy due to narcotic use resolved advice To abstain from high-dose narcotics patient primary care physician is switching her from Percocet to tramadol advised only to use tramadol for severe back pain Atrial fibrillation with RVR c/o palpitations Patient has history of atrial fibrillation at home she takes metoprolol 50 mg, Eliquis is held for upcoming surgery In the ICU patient was placed on Coreg 3.125 mg twice daily and was subsequently started on IV Cardizem drip, will place patient on by mouth Cardizem 60 mg q.6 hours DC Cardizem drip continue Coreg 6.25 b.i.d. and due to upcoming surgery will consult Cardiology to adjust medications. Hold anticoagulation as may be having surgery soon, will check with surgeon Hypertension Noted to have elevated blood pressure patient home medications amlodipine and hydralazine were held in the ICU due to hypotension and patient was placed on Coreg BP is trending up therefore will resume hydralazine and will discuss further medication management with Cardiology History of COPD no acute exacerbation Adeno carcinoma sigmoid colon follow-up with general surgery for resection-- will check with [facility] DVT prophylaxis will add lovenox
--- NOTE | 2020-11-01 11:51 | PM.CNCAR ---
History of Present Illness History of Present Illness Date of Service: 11/01/20 Consult reason: atrial fibrillation Chief complaint: Acute Excerbation of COPD, Acute Hypotension CHF Narrative: This is a cardiology consultation regarding atrial fibrillation. She was actually recently seen in our office for preoperative risk stratification for colon cancer resection. She underwent ischemia workup which was unremarkable. However it appears that the surgery has not yet taken place and she was rather admitted for respiratory failure. In this context, she was found to have atrial fibrillation episodes. She states that she has never had atrial fibrillation or told to have any such diagnosis in the past. Hence it seems to be a completely new diagnosis. Currently she is in sinus rhythm on telemetry. However when she goes into atrial fibrillation she states she can feel the palpitations. Otherwise shortness of breath is at baseline. No anginal-type symptoms. Review of Systems Review of Systems: Yes all other systems are reviewed and are negative Cardiovascular: Cardiovascular: Reports as per HPI, Reports no additional cardiovascular complaints, Denies acrocyanosis, Denies cool extremities, Denies painful fingertips, Denies chest pain, Denies chest pain at rest, Denies diaphoresis, Denies syncope, Denies irregular heart rhythm, Denies claudication, Denies leg edema, Denies lightheadedness, Reports palpitations and Reports dyspnea Respiratory: Respiratory: Reports dyspnea Neurologic: Denies syncope Endocrine: Endocrine: Reports palpitations [facility] Past Medical History Medical History Abnormal PET scan of colon Acute and chronic respiratory failure Acute on chronic diastolic CHF (congestive heart failure) Adenocarcinoma of sigmoid colon Atrial flutter with rapid ventricular response Back pain with history of spinal surgery Bilateral pneumonia Bipolar 1 disorder Bipolar disorder CAD (coronary artery disease) Cancer of lower lobe of left lung CHF exacerbation Chronic back pain Colon cancer COPD (chronic obstructive pulmonary disease) COPD (chronic obstructive pulmonary disease) COPD (chronic obstructive pulmonary disease) COVID-19 vaccine series completed Depression Fibromyalgia GERD (gastroesophageal reflux disease) GI bleed High cholesterol History of COVID-19 HTN (hypertension) Hypernatremia Hypoventilation associated with obesity Hypoxia Lethargy Lung cancer Lung mass Mass of colon No natural teeth Obesity Obesity hypoventilation syndrome Opacity of lung on imaging study IVY (obstructive sleep apnea) Oxygen dependent Pleural effusion, left PTSD (post-traumatic stress disorder) Renal failure Respiratory failure with hypoxia and hypercapnia Respiratory failure with hypoxia and hypercapnia Restless legs syndrome (RLS) Restrictive lung disease Rotator cuff strain Sleep disorder Smoker UTI (urinary tract infection) Family History Family History Maternal Aunt Breast cancer Stroke COPD (chronic obstructive pulmonary disease) Maternal Aunt Breast cancer COPD (chronic obstructive pulmonary disease) Mother Uterine cancer COPD (chronic obstructive pulmonary disease) HTN (hypertension) Heart disease Maternal Uncle Stroke Paternal Grandmother Heart attack Sister Diabetes IBS (irritable bowel syndrome) Son HTN (hypertension) Daughter HTN (hypertension) Father HTN (hypertension) Brother Heart disease Surgical History Surgical History H/O colonoscopy H/O: hysterectomy History of back surgery History of bunionectomy History of esophagogastroduodenoscopy (EGD) Hx of appendectomy Hx of cholecystectomy Hx of exploratory laparotomy Status post lobectomy of lung Social History Social History Household Members: Significant Other Housing: House Are you a primary healthcare economics consultant to a significant other at home: No Do you presently have visiting nurse or other home services: Yes (VNA 1 x week, PT 1 x week) Patient Tobacco Use Status: Former Tobacco user Cigarettes Per Day: 4 Years Smoked: 40 Second Hand Smoke Exposure: Yes Use of substances other than those prescribed or required for medical reasons: No Currently Displaying Signs/Symptoms of Drug Intoxication Withdrawal: No Have you been hit, kicked, punched, or otherwise hurt by someone within the past year? If so, by whom?: No Do you feel safe in your current relationship?: Yes Is there a partner from a previous relationship who is making you feel unsafe now?: No Are you made to feel afraid or neglected: No Advance Directives: No Advance Directives Information Provided: No Advance Directives on File: No Do you have thoughts of harming others: None Do you have a plan to hurt others: No Plan Recently lost weight without trying: No Nutrition Risks: No Nutritional Risk service: No Current occupational status: unemployed and disabled Meds Allergies Allergy/AdvReac Type Severity Reaction Status Date / Time levofloxacin [From Levaquin] Allergy Severe Diarrhea Verified 10/29/20 16:50 Penicillins Allergy Mild RASH Verified 10/29/20 16:50 venlafaxine [From Effexor] Allergy Mild RASH Verified 10/29/20 16:50 cyclobenzaprine Allergy Unknown UNKNOWN Verified 10/29/20 16:50 [Cyclobenzaprine] fentanyl [FENTANYL] Allergy Unknown HALLUCINATI Verified 10/29/20 16:50 ONS topiramate [From Topamax] Allergy Unknown UNKNOWN Verified 10/29/20 16:50 Sulfa (Sulfonamide AdvReac Severe Diarrhea Verified 10/29/20 16:50 Antibiotics) Active Medications: Current Medications Generic Name Dose Route Start Last Admin Trade Name Freq PRN Reason Stop Dose Admin Aspirin 81 mg 10/31/20 11:30 11/01/20 08:09 Aspirin Enteric Coated 81 Mg Tablet. PO 81 mg DAILY LONG Administration Atorvastatin Calcium 20 mg 10/31/20 21:00 10/31/20 20:20 Atorvastatin Calcium 20 Mg Tablet PO 20 mg BEDTIME [facility] Administration Carvedilol 6.25 mg 10/31/20 21:00 11/01/20 08:09 Carvedilol 6.25 Mg Tablet PO 6.25 mg BID LONG Administration Protocol Diltiazem HCl 60 mg 10/31/20 18:00 11/01/20 11:48 Diltiazem Hcl 30 Mg Tablet PO 60 mg Q6H LONG Administration Protocol Divalproex Sodium 1,000 mg 10/30/20 21:00 10/31/20 20:20 Divalproex Sodium Er 500 Mg Tab.Er.24h PO 1,000 mg BEDTIME LONG Administration Divalproex Sodium 500 mg 10/30/20 11:20 11/01/20 08:10 Divalproex Sodium Er 500 Mg Tab.Er.24h PO 500 mg DAILY LONG Administration Duloxetine HCl 60 mg 10/31/20 21:00 10/31/20 20:20 Duloxetine Hcl 60 Mg Capsule. PO 60 mg BEDTIME LONG Administration Enoxaparin Sodium 40 mg 10/31/20 17:00 10/31/20 17:25 Enoxaparin Sodium 40 Mg/0.4 Ml Syringe SUBCUT 40 mg Q24H LONG Administration Ferrous Sulfate 324 mg 10/31/20 21:00 11/01/20 08:08 Ferrous Sulfate 324 Mg Tablet. PO 324 mg BID LONG Administration Fluticasone/Vilanterol 1 puff 05/30/21 09:00 11/01/20 08:10 Fluticasone/Vilanterol 100/25 Blst.W.Dev INHALE 1 puff DAILY LONG Administration Hydralazine HCl 25 mg 10/31/20 21:00 11/01/20 08:10 Hydralazine Hcl 25 Mg Tablet PO 25 mg TID LONG Administration Protocol Hydroxyzine HCl 25 mg 10/31/20 20:27 11/01/20 10:43 Hydroxyzine Hcl 25 Mg Tablet PO 25 mg Q6H PRN Administration anxiety/restlessness Diltiazem HCl 125 mg/ Sodium 125 mls @ 2.5 mls/hr 10/30/20 08:15 11/01/20 08:36 Chloride IVCONT Not Given .Q24H [facility] Protocol 2.5 MG/HR Levalbuterol HCl 1.25 mg 10/31/20 12:00 11/01/20 11:42 Levalbuterol Hcl 1.25 Mg/0.5 Ml Vial.Neb INHALE 1.25 mg RQ6H LONG Administration Magnesium Oxide 400 mg 10/31/20 21:00 11/01/20 08:09 Magnesium Oxide 400 Mg Tablet PO 400 mg BID LONG Administration Omeprazole 20 mg 10/31/20 16:30 11/01/20 05:32 Omeprazole 20 Mg Capsule. PO 20 mg BID@0630,1630 [facility] Administration Pharmacy Consult 1 each 10/29/20 21:03 Consult Rx Perform Med Rec MISCELLANE ONCE PRN Consult order Tramadol HCl 50 mg 10/31/20 11:30 11/01/20 09:35 Tramadol Hcl 50 Mg Tablet PO 50 mg Q8H PRN Administration Pain, Severe (Pain Scale 7-10) Home Medications Medication Instructions Recorded Confirmed Last Taken Type amitriptyline 25 mg PO BEDTIME 04/21/20 10/29/20 09/08/20 History amlodipine 10 mg PO DAILY 04/21/20 10/29/20 09/09/20 History divalproex 500 mg PO QAM 04/21/20 10/29/20 09/09/20 History duloxetine 60 mg PO BEDTIME 04/21/20 10/29/20 09/08/20 History omeprazole 20 mg PO BID 04/21/20 10/29/20 09/09/20 History Breo Ellipta 1 inh INHALATION DAILY 05/26/20 10/29/20 09/09/20 History Incruse Ellipta 1 inh INHALATION DAILY 05/26/20 10/29/20 09/09/20 History hydralazine 50 mg PO TID 05/26/20 10/29/20 09/09/20 History metoprolol succinate 50 mg PO DAILY 05/26/20 10/29/20 09/09/20 History atorvastatin 20 mg PO BEDTIME 07/03/20 10/29/20 09/08/20 History divalproex 1,000 mg PO QPM 09/10/20 10/29/20 09/08/20 History ferrous sulfate 1 tab PO BID 09/10/20 10/29/20 09/09/20 History aspirin 1 tab PO QAM 10/05/20 10/29/20 Unknown History blood pressure monitor #1 ea 10/22/20 10/22/20 Unknown History blood pressure test kit-large #1 ea 10/22/20 10/22/20 Unknown History naloxone 4 mg/actuation nasal spray 1 spray INTRANASAL ONCE PRN 10/22/20 10/29/20 Unknown History ondansetron HCl [Zofran] 4 mg PO Q6H PRN 10/22/20 10/29/20 Unknown History oxycodone-acetaminophen 1 tab PO BID PRN 10/22/20 10/29/20 Unknown History Physical Exam Vital Signs: Vital Signs: Last Vital Signs Temp 97.5 F 11/01/20 11:46 Pulse 67 11/01/20 11:48 Resp 20 11/01/20 11:46 BP 131/77 11/01/20 11:48 Pulse Ox 93 11/01/20 11:46 Oxygen Flow Rate 3 10/29/20 21:35 Body Mass Index 32.3 Const: General: cooperative, comfortable and no acute distress Orientation/consciousness: patient oriented x3 HENMT: Other: Unremarkable Neck: Neck: Yes normal visual inspection Chest: Chest palpation & inspection: normal inspection of the chest Resp: Auscultation: no crackles, no wheezes and diminished lung sounds Cardio: Jugular venous distension: no JVD Palpation: normal PMI Heart sounds: S1 normal heart sound present, S2 normal heart sound present, no gallops, no murmurs and no rubs GI: Palpation (GI): Soft to palpation Back/Spine/Pelvis: Other: unremarkable Skin: General skin exam: no rashes or lesions noted Neuro: General: patient oriented x3 Extrem: General: Yes no clubbing, cyanosis or edema Psych: Mental Status: mental status grossly normal Results Labs and Meds Result diagrams: 10/30/20 05:58 10/30/20 05:58 ECG Attestation: I personally reviewed and interpreted this ECG as follows: Interpretation: EKG with atrial fibrillation and rapid rate in a part of the EKG but sinus/PAC in other part. On telemetry she has had episodes of atrial fibrillation or flutter with rapid rate but currently in sinus rhythm and PACs. Assessment and Plan (1) Atrial fibrillation with rapid ventricular response: Status: Acute (2) Respiratory failure with hypoxia and hypercapnia: Qualifiers: Chronicity: acute on chronic Qualified Code(s): J96.21 - Acute and chronic respiratory failure with hypoxia; J96.22 - Acute and chronic respiratory failure with hypercapnia Status: Acute (3) COPD (chronic obstructive pulmonary disease): Qualifiers: COPD type: COPD with acute exacerbation Qualified Code(s): J44.1 - Chronic obstructive pulmonary disease with (acute) exacerbation Status: Acute (4) Preoperative cardiovascular examination: Status: Acute She is currently on diltiazem 60 mg q.6 hours. She is also on beta-blockers. Upon discharge, we can convert the diltiazem sustained release preparation. Otherwise she is on low-dose aspirin per medications. CHADS2 VASc score- 3 for sex, HTN, vascular dx. When able to take, Eliquis can be started. Need to discuss with surgery. She will be at intermediate cardiac risk for the colon cancer surgery. Procedures Date of Service Date of Service: 11/01/20
[2020-11-01] MEDS: Enoxaparin Sodium 40 MG/0.4 ML SYRINGE SUBCUT (17:10)
[2020-11-01] MEDS: Divalproex Sodium ER 500 MG TAB.ER.24H 1000 MG PO (20:15)
[2020-11-01] MEDS: DULoxetine HCl 60 MG CAPSULE.DR PO (20:15)
[2020-11-01] MEDS: Atorvastatin Calcium 20 MG TABLET PO (20:17)
[2020-11-02] VITALS (10 sets, daily range): BP systolic 92–131; BP diastolic 53–79; PULSE 59–90; RESP 18; TEMP 36.1–37.2; O2SAT 91–97
[2020-11-02] MEDS: traMADoL HCL 50 MG TABLET PO (00:01)
[2020-11-02] MEDS: hydrOXYzine HCL 25 MG TABLET PO ×2 (00:01→09:03)
--- NOTE | 2020-11-02 04:40 | PC.RT ---
pt previously on bipap 16/11 35% order was completed and bipap still in the pt room. pt has maru and resp fail i did message the hospitalist to ask for a bedtime bipap order for this pt. order still not in yet. I did offer the pt bipap for bedtime and she refused multiple attempts.
[2020-11-02] MEDS: dilTIAZem HCL 30 MG TABLET 60 MG PO ×3 (06:20→11:33)
[2020-11-02] MEDS: Omeprazole 20 MG CAPSULE.DR PO (06:21)
[2020-11-02] MEDS: Fluticasone/Vilanterol 100/25 BLST.W.DEV 1 PUFF INHALE (08:50)
[2020-11-02] MEDS: Aspirin Enteric Coated 81 MG TABLET.DR PO (09:16)
[2020-11-02] MEDS: Magnesium Oxide 400 MG TABLET PO (09:16)
[2020-11-02] MEDS: hydrALAZINE HCl 25 MG TABLET PO (09:16)
[2020-11-02] MEDS: Divalproex Sodium ER 500 MG TAB.ER.24H PO (09:17)
[2020-11-02] MEDS: Ferrous Sulfate 324 MG TABLET.DR PO (09:18)
[2020-11-02] MEDS: carvediloL 6.25 MG TABLET PO (09:18)
--- NOTE | 2020-11-02 09:40 | PM.DS ---
DS: Providers Provider Date of Service: 11/02/20 Date of admission: 10/29/20 21:35 Primary care physician: Cassandra Oconnor MD Consults: 10/31/20 16:49 Consult to Cardiology Routine Consulting Provider: Mickey Wayne Reason for consultation: atrial fib with rvr Has provider been notified: No DS: Diagnosis Discharge Diagnosis (1) Atrial fibrillation with rapid ventricular response: Status: Acute (2) Respiratory failure with hypoxia and hypercapnia: Status: Acute Problem details: (3) COPD (chronic obstructive pulmonary disease): Status: Acute (4) Preoperative cardiovascular examination: Status: Acute DS: Medications Discharge Medications Home Medications: Home Medications Medication Instructions Recorded Confirmed amitriptyline 25 mg PO BEDTIME 04/21/20 10/29/20 amlodipine 10 mg PO DAILY 04/21/20 10/29/20 divalproex 500 mg PO QAM 04/21/20 10/29/20 duloxetine 60 mg PO BEDTIME 04/21/20 10/29/20 omeprazole 20 mg PO BID 04/21/20 10/29/20 Breo Ellipta 1 inh INHALATION DAILY 05/26/20 10/29/20 Incruse Ellipta 1 inh INHALATION DAILY 05/26/20 10/29/20 hydralazine 50 mg PO TID 05/26/20 10/29/20 metoprolol succinate 50 mg PO DAILY 05/26/20 10/29/20 atorvastatin 20 mg PO BEDTIME 07/03/20 10/29/20 divalproex 1,000 mg PO QPM 09/10/20 10/29/20 ferrous sulfate 1 tab PO BID 09/10/20 10/29/20 aspirin 1 tab PO QAM 10/05/20 10/29/20 blood pressure monitor #1 ea 10/22/20 10/22/20 blood pressure test kit-large #1 ea 10/22/20 10/22/20 naloxone 4 mg/actuation nasal spray 1 spray INTRANASAL ONCE PRN 10/22/20 10/29/20 ondansetron HCl [Zofran] 4 mg PO Q6H PRN 10/22/20 10/29/20 oxycodone-acetaminophen 1 tab PO BID PRN 10/22/20 10/29/20 Previous Rx's Medication Instructions Recorded albuterol sulfate 2 puff INHALATION Q4-6H PRN #8.5 g 04/30/20 tramadol 50 mg PO Q8H PRN #20 tab 10/09/20 magnesium oxide 400 mg PO BID #10 cap 10/23/20 DS: Summary Hospital Course Hospital Course: 55-year-old female with past medical history of acute on chronic respiratory failure on baseline 2.5 L of oxygen, CHF, bipolar disorder, CAD, depression, fibromyalgia, HLD, HTN, hypoventilation associated with obesity, 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 Of note, pt is on opioids 2 x daily for chronic back pain and also is on Klonopin. She was treated with Narca and was admitted throgh the ICU and treated with BiPAP overnight with improvement--of note she had similar episode earlier during the month and was advised to take Tramadol for pain and Not oxycodone but apparently went back to take those meds. Labs revealed an elevated WBC at 16.9, ABG revealed respiratory acidosis at 7.27//70 47/30 to with a base excess of 3.9, slight hyponatremia at 130 to, hypochloremia at 91 and bicarb at 30. BNP 267, tox screen was positive for opiates, will continue home inhalers including Breo Ellipta and change DuoNeb to Xopenex as needed Acute hypoxic and hypercarbic respiratory failure due to narcotic use--Treated with BIPAP and bronchodilator and has since been doing well. She will continue home O2, and BiPAP at night, should avoid Narcotics and or use sparingly for pain. Acute encephalopathy due to narcotic use resolved- Advice To abstain from high-dose narcotics patient primary care physician is switching her from Percocet to tramadol advised only to use tramadol for severe back pain New onset of ATrial Fibrialation that was associated RVR and palpiation--There is no record that she has history of AFIB. She was treated initially with IV cardizem and has since been transitioned to Oral Coreg at 6.25 bid and Cardizem 60 QID and this will be converted to long acting Crdizem 240 and to continue Metoprolol at home. CHADS2 Vasc is 3, will start Eliquis 5 bid, this will need to be stop before surgery Hypertension--To continue Hydralazine, Cardizem and Metoprolol as above. History of Colon Cancer--Surgery is planed for 11/[address] Wray History of COPD no acute exacerbation Adeno carcinoma sigmoid colon follow-up with general surgery for resection. Time Spent with Patient Time attestation: Total time spent providing and/or coordinating discharge services: Discharge coordination time: Greater than 30 minutes Quality: Stroke Does the patient have a stroke diagnosis?: No Physical Exam Vital Signs: Vital Signs: Last Vital Signs Temp 98.9 F 11/02/20 07:26 Pulse 70 11/02/20 09:18 Resp 18 11/02/20 07:26 BP 92/74 11/02/20 09:18 Pulse Ox 92 11/02/20 07:26 Oxygen Flow Rate 3 10/29/20 21:35 Body Mass Index 32.3 General: AO X 3, no acute distress Resp: CTA bilateral CVS: S1,S2, iregular iregular GI: +BS, NT, no distention Skin: No rash Neuro: motor grossly intact Psych: appropriate affect DS: Data Data Completed and Pending Completed studies during hospitalization [Text1]: Procedures Assistance with Respiratory Ventilation, Less than 24 Consecutive Hours, Continuous Positive Airway Pressure (10/05/20) Excision of Left Lower Lung Lobe, Percutaneous Approach, Diagnostic (07/03/20) Labs on day of discharge: Preliminary micro results at discharge 10/29/20 23:40 Blood Culture - Preliminary Blood - Venous No growth after 48 hours. 10/29/20 23:40 Blood Culture - Preliminary Blood - Venous No growth after 48 hours. Discharge Plan Discharge Anticipated Discharge Date/Time: 11/02/20 09:31 Patient Disposition: Home Health Service Discharge Diagnosis: Acute respiratory failure and AFIB Referrals: Lisa OLIVARES [Outside] - 1 Week Cassandra Oconnor MD [Primary Care Provider] - 1 Week Discharge Medications: New diltiazem HCl [Cardizem CD] 240 mg capsule,extended release 24hr 240 mg PO DAILY Qty: 60 RF: 0 tramadol 50 mg Tablet 50 mg PO Q8H PRN (Reason: Pain, Severe (Pain Scale 7-10)) Qty: 20 RF: 0 Continued magnesium oxide 400 mg magnesium capsule 400 mg PO BID Qty: 10 RF: 0 amitriptyline 25 mg tablet 25 mg PO BEDTIME RF: 0 divalproex 500 mg tablet extended release 24 hr 500 mg PO QAM RF: 0 omeprazole 20 mg capsule,delayed release(DR/EC) 20 mg PO BID RF: 0 duloxetine 60 mg capsule,delayed release(DR/EC) 60 mg PO BEDTIME RF: 0 albuterol sulfate 90 mcg/actuation HFA aerosol inhaler 2 puff inhalation Q4-6H PRN (Reason: shortness of breath or wheezing) Qty: 8.5 RF: 0 metoprolol succinate 50 mg Tablet Extended Release 24 Hr 50 mg PO DAILY RF: 0 Breo Ellipta 100-25 mcg/dose Blister With Device 1 inh INHALATION DAILY RF: 0 Incruse Ellipta 62.5 mcg/actuation Blister With Device 1 inh INHALATION DAILY RF: 0 hydralazine 50 mg Tablet 50 mg PO TID RF: 0 ondansetron HCl [Zofran] 4 mg tablet 4 mg PO Q6H PRN (Reason: Nausea) RF: 0 atorvastatin 20 mg Tablet 20 mg PO BEDTIME RF: 0 ferrous sulfate 325 mg (65 mg iron) tablet 1 tab PO BID RF: 0 divalproex 500 mg tablet extended release 24 hr 1,000 mg PO QPM RF: 0 naloxone 4 mg/actuation spray,non-aerosol 1 spray intranasal ONCE PRN (Reason: Opiate Reversal) RF: 0 (DME) blood pressure test kit-large Kit See Rx Instructions ea .ROUTE DIRECTED Qty: 1 RF: 0 (DME) blood pressure monitor Kit See Rx Instructions .ROUTE .MEDSUPPLY Qty: 1 RF: 0 Discontinued amlodipine 10 mg tablet 10 mg PO DAILY RF: 0 oxycodone-acetaminophen 10-325 mg tablet 1 tab PO BID PRN (Reason: pain) RF: 0 aspirin 81 mg tablet,delayed release (DR/EC) 1 tab PO QAM RF: 0 Discharge Orders: Discharge Order (Routine); Ordered 11/02/20 Ordered By: Los wendie Diet: advance to usual diet Activity on Discharge: No Running or jogging Stand Alone Forms: Patient Portal Discharge page Care Plan Goals: Prevent rehospitalization Health Concerns: recurrent hospitalization for respiratory failure and unintentional overdose Plan of Treatment: Take your medication as recommended only, take Cardizem and Metoprolol for atrial fibrialation and note that Norvasc (Amlodipine) . Follow up with Dr. Wray for colon surgery as planned at the end of November. Take Eliquis to prevent stroke from AFIB, this will need to be stopped before surgery Assessment: You have new atrial fibrilation which put you at risk to have stroke--see plan above Discharge Date/Time: 11/02/20 13:23
[2020-11-02] MEDS: Apixaban 5 MG TABLET PO (11:33)
--- NOTE | 2020-11-02 11:39 | PM.PNCARD ---
Subjective Subjective Date of Service: 11/02/20 Interval history: she states that she feels well. Review of Systems Review of Systems Yes all other systems are reviewed and are negative Cardiovascular: Reports as per HPI, Reports no additional cardiovascular complaints, Denies acrocyanosis, Denies cool extremities, Denies painful fingertips, Denies chest pain, Denies chest pain at rest, Denies diaphoresis, Denies syncope, Denies irregular heart rhythm, Denies claudication, Denies leg edema, Denies lightheadedness, Reports palpitations and Reports dyspnea Respiratory: Reports dyspnea Denies syncope Endocrine: Reports palpitations Physical Exam Vital Signs: Last Vital Signs Temp 98.1 F 11/02/20 11:22 Pulse 65 11/02/20 11:33 Resp 18 11/02/20 11:22 BP 106/71 11/02/20 11:33 Pulse Ox 97 11/02/20 11:22 Oxygen Flow Rate 3 10/29/20 21:35 Body Mass Index 32.3 Const General: cooperative, comfortable and no acute distress Orientation/consciousness: patient oriented x3 HENID Other: Unremarkable Neck Neck: Yes normal visual inspection Chest Chest palpation & inspection: normal inspection of the chest Resp Auscultation: no crackles, no wheezes and diminished lung sounds Cardio Jugular venous distension: no JVD Palpation: normal PMI Heart sounds: S1 normal heart sound present, S2 normal heart sound present, no gallops, no murmurs and no rubs GI Palpation (GI): Soft to palpation Back/Spine/Pelvis Other: unremarkable Skin General skin exam: no rashes or lesions noted Neuro General: patient oriented x3 Extrem General: Yes no clubbing, cyanosis or edema Psych Mental Status: mental status grossly normal Results Labs and Meds Result diagrams: 10/30/20 05:58 10/30/20 05:58 Progress Note: A&P Assessment and plan (1) Atrial fibrillation with rapid ventricular response: Status: Acute (2) Respiratory failure with hypoxia and hypercapnia: Status: Acute (3) COPD (chronic obstructive pulmonary disease): Status: Acute (4) Preoperative cardiovascular examination: Status: Acute Assessment and Plan: On telemetry she remains in sinus rhythm. She is currently on diltiazem 60 mg q.6 hours. She is also on beta-blockers. Upon discharge, we can convert the diltiazem to sustained release preparation. CHADS2 VASc score- 3 for sex, HTN, vascular dx. When able to take, Eliquis can be started. Asked her to watch out for any lower GI bleeding due to colon cancer surgery. She will be at intermediate cardiac risk for the colon cancer surgery. OK to interrupt the anti-coagulation for the procedure as needed. Fall Risk Details Current Medications: Current Medications Generic Name Dose Route Start Last Admin Trade Name Justinq PRN Reason Stop Dose Admin Apixaban 5 mg 11/02/20 11:00 11/02/20 11:33 Apixaban 5 Mg Tablet PO 5 mg BID LONG Administration Aspirin 81 mg 10/31/20 11:30 11/02/20 09:16 Aspirin Enteric Coated 81 Mg Tablet. PO 81 mg DAILY LONG Administration Atorvastatin Calcium 20 mg 10/31/20 21:00 11/01/20 20:17 Atorvastatin Calcium 20 Mg Tablet PO 20 mg BEDTIME LONG Administration Carvedilol 6.25 mg 10/31/20 21:00 11/02/20 09:18 Carvedilol 6.25 Mg Tablet PO 6.25 mg BID LONG Administration Protocol Diltiazem HCl 60 mg 10/31/20 18:00 11/02/20 11:33 Diltiazem Hcl 30 Mg Tablet PO 60 mg Q6H LONG Administration Protocol Divalproex Sodium 1,000 mg 10/30/20 21:00 11/01/20 20:15 Divalproex Sodium Er 500 Mg Tab.Er.24h PO 1,000 mg BEDTIME LONG Administration Divalproex Sodium 500 mg 10/30/20 11:20 11/02/20 09:17 Divalproex Sodium Er 500 Mg Tab.Er.24h PO 500 mg DAILY LONG Administration Duloxetine HCl 60 mg 10/31/20 21:00 11/01/20 20:15 Duloxetine Hcl 60 Mg Capsule. PO 60 mg BEDTIME LONG Administration Ferrous Sulfate 324 mg 10/31/20 21:00 11/02/20 09:18 Ferrous Sulfate 324 Mg Tablet. PO 324 mg BID LONG Administration Fluticasone/Vilanterol 1 puff 11/01/20 09:00 11/02/20 08:50 Fluticasone/Vilanterol 100/25 Blst.W.Dev INHALE 1 puff DAILY LONG Administration Hydralazine HCl 25 mg 10/31/20 21:00 11/02/20 09:16 Hydralazine Hcl 25 Mg Tablet PO 25 mg TID LONG Administration Protocol Hydroxyzine HCl 25 mg 10/31/20 20:27 11/02/20 09:03 Hydroxyzine Hcl 25 Mg Tablet PO 25 mg Q6H PRN Administration anxiety/restlessness Diltiazem HCl 125 mg/ Sodium 125 mls @ 2.5 mls/hr 10/30/20 08:15 11/02/20 09:12 Chloride IVCONT Not Given .Q24H LONG Protocol 2.5 MG/HR Levalbuterol HCl 1.25 mg 10/31/20 12:00 11/02/20 08:50 Levalbuterol Hcl 1.25 Mg/0.5 Ml Vial.Neb INHALE 1.25 mg RQ6H LONG Administration Magnesium Oxide 400 mg 10/31/20 21:00 11/02/20 09:16 Magnesium Oxide 400 Mg Tablet PO 400 mg BID LONG Administration Omeprazole 20 mg 10/31/20 16:30 11/02/20 06:21 Omeprazole 20 Mg Capsule. PO 20 mg BID@0630,6700 COUNT INCLUDES THE [facility] Administration Pharmacy Consult 1 each 10/29/20 21:03 Consult Rx Perform Med Rec MISCELLANE ONCE PRN Consult order Tramadol HCl 50 mg 10/31/20 11:30 11/02/20 00:01 Tramadol Hcl 50 Mg Tablet PO 50 mg Q8H PRN Administration Pain, Severe (Pain Scale 7-10) Time Spent With Patient Time: Total time spent is greater than 50% in coordination of care (as documented) at patient's floor/unit and/or counseling patient: Time with patient: less than 15 minutes Procedures Date of Service Date of Service: 11/02/20
== END 2020-11-02 13:23 | disposition home health service (06) | DRG 917 ==
LOC: HO.ED 21:04 → HO.ICU 22:43 → HO.IMC 10-30 11:49
PROVIDERS: Emergency Medicine; Internal Medicine Cardiovascular Disease; Admitting Provider Physician Assistant; Emergency Provider Emergency Medicine; PCP Internal Medicine; Visit Provider Internal Medicine
DX: T40.2X1A Poisoning by other opioids, accidental (unintentional), initial encounter (principal); J96.22 Acute and chronic respiratory failure with hypercapnia; J96.21 Acute and chronic respiratory failure with hypoxia; G92 Toxic encephalopathy; E66.2 Morbid (severe) obesity with alveolar hypoventilation; C18.7 Malignant neoplasm of sigmoid colon; E87.2 Acidosis; I25.10 Atherosclerotic heart disease of native coronary artery without angina pectoris; F43.10 Post-traumatic stress disorder, unspecified; E78.5 Hyperlipidemia, unspecified; I11.0 Hypertensive heart disease with heart failure; I48.91 Unspecified atrial fibrillation; G89.29 Other chronic pain; M54.9 Dorsalgia, unspecified; I95.9 Hypotension, unspecified; Z68.32 Body mass index [BMI] 32.0-32.9, adult; Z20.822 Contact with and (suspected) exposure to COVID-19; J44.9 Chronic obstructive pulmonary disease, unspecified; I50.9 Heart failure, unspecified; F31.9 Bipolar disorder, unspecified; Z99.81 Dependence on supplemental oxygen; Y92.9 Unspecified place or not applicable; Z87.891 Personal history of nicotine dependence; Z88.0 Allergy status to penicillin; Z88.2 Allergy status to sulfonamides; Z79.899 Other long term (current) drug therapy
CPT/HCPCS: 36415; 71045; 80048; 80076; 80164; 80307; 81001; 82140; 83605; 83690; 83735; 83880; 84100; 84484; 85025; 85610; 85730; 87040; 87635; 93005; 94660; 96374; 96375; 99285; 99291; J1650; J1940; J2060

== ENCOUNTER 2020-11-18 07:54 | Inpatient (IN) | payer MEDICARE, MEDICAID, SELFPAY ==
[2020-11-18] VITALS (32 sets, daily range): BP systolic 76–143; BP diastolic 30–86; PULSE 75–140; RESP 11–22; TEMP 36.1–37; O2SAT 86–99; BMI 33.7
--- NOTE | ~2020-11-18 | XR_ITS ---
EXAMINATION: XR CHEST CLINICAL INFORMATION: Dyspnea COMPARISON: Previous chest x-ray and chest CT October 2020 TECHNIQUE: Frontal view of the chest was obtained. FINDINGS: The cardiac silhouette is enlarged. There is pulmonary venous redistribution and increased perihilar attenuation questionable for new mild pulmonary edema/CHF. There is left lower lobe atelectasis/consolidation that appears unchanged. There may be a small left pleural effusion. There is no right pleural effusion. There is no pneumothorax. There are degenerative changes of the spine and left shoulder. XR/XR chest 1V IMPRESSION: Question new mild CHF. Left lower lobe atelectasis/consolidation and small left pleural effusion similar to previous exams.
--- NOTE | ~2020-11-18 | CT_ITS ---
EXAMINATION: CT HEAD WITHOUT CONTRAST CLINICAL INFORMATION: AMS. COMPARISON: None TECHNIQUE: Contiguous axial imaging was performed from the skull base to vertex without intravenous administration of contrast. This CT examination was performed using dose optimization techniques as appropriate, variously including the following: *Automated exposure control *Adjustment of mA and/or kV according to patient size (this includes techniques or standardized protocols for targeted exams where dose is matched to indication/reason for exam; i.e. extremities or head) *Use of iterative reconstruction technique DLP: 801 mGy-cm FINDINGS: There is no evidence of acute intracranial hemorrhage or territorial infarction. No abnormal mass effect or midline shift is seen. Duncan to white matter differentiation is well preserved. No extra-axial fluid collections are identified. The ventricles are normal in size. There is no abnormal attenuation within the brain parenchyma. The osseous structures and soft tissues are normal. The mastoid air cells and visualized portions of the paranasal sinuses are well aerated. CT/CT head/brain wo con IMPRESSION: No acute intracranial process seen.
--- NOTE | 2020-11-18 07:58 | ECG_ITS ---
Test Reason : WEAKNESS Blood Pressure : / mmHG Vent. Rate : 090 BPM Atrial Rate : 090 BPM P-R Int : 146 ms QRS Dur : 086 ms QT Int : 312 ms P-R-T Axes : 063 068 027 degrees QTc Int : 381 ms Normal sinus rhythm Cannot rule out Anterior infarct , age undetermined ; could be from body habitus and lead placement Abnormal ECG When compared with ECG of 29-OCT-2020 22:08, Sinus rhythm has replaced Atrial fibrillation Vent. rate has decreased BY 44 BPM Referred By: Jaqueline Willis Electronically Signed By:KARIE AKERS
--- NOTE | 2020-11-18 07:59 | ED_ITS ---
HPI - Altered Mental Status General Chief Complaint: General Medical Stated Complaint: SOB Time Seen by Provider: 11/18/20 07:57 Source: patient and old records reviewed Mode of arrival: other (from [facility] pending sigmoid resection) Limitations: altered mental status History of Present Illness HPI narrative: 55 yo female with hx of afib (did not take her AC therapy due to surgery), pneumonia, PVD, IVY on CPAP home O2, recent lung resection for cancer planned laparascopic sigmoid resection today for colon mass, coming from 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) Related Data Home Medications Medication Instructions Recorded Confirmed amitriptyline 25 mg PO BEDTIME 04/21/20 11/18/20 divalproex 500 mg PO QAM 04/21/20 11/18/20 duloxetine 60 mg PO BEDTIME 04/21/20 11/18/20 omeprazole 20 mg PO BID 04/21/20 11/18/20 Breo Ellipta 1 inh INHALATION DAILY 05/26/20 11/18/20 Incruse Ellipta 1 inh INHALATION DAILY 05/26/20 11/18/20 hydralazine 50 mg PO TID 05/26/20 11/18/20 metoprolol succinate 50 mg PO DAILY 05/26/20 11/18/20 atorvastatin 20 mg PO BEDTIME 07/03/20 11/18/20 divalproex 1,000 mg PO QPM 09/10/20 11/18/20 ferrous sulfate 1 tab PO BID 09/10/20 11/18/20 blood pressure monitor #1 ea 10/22/20 10/22/20 blood pressure test kit-large #1 ea 10/22/20 10/22/20 ondansetron HCl [Zofran] 4 mg PO Q6H PRN 10/22/20 11/18/20 apixaban [Eliquis] 5 mg PO BID 11/18/20 11/18/20 clonazepam 1 tab PO TID PRN 11/18/20 11/18/20 oxycodone-acetaminophen 1 tab PO 5XD PRN 11/18/20 11/18/20 Previous Rx's Medication Instructions Recorded albuterol sulfate 2 puff INHALATION Q4-6H PRN #8.5 g 04/30/20 diltiazem HCl [Cardizem CD] 240 mg PO DAILY #60 cap 11/02/20 tramadol 50 mg PO Q8H PRN #20 tab 11/02/20 magnesium oxide 400 mg PO BID #14 cap 11/11/20 erythromycin 500 mg tablet 500 mg PO .COMPLEX #6 tab 11/16/20 neomycin 500 mg tablet 1 g PO .COMPLEX #6 tab 11/16/20 Allergies Allergy/AdvReac Type Severity Reaction Status Date / Time levofloxacin [From Levaquin] Allergy Severe Diarrhea Verified 10/29/20 16:50 Penicillins Allergy Mild RASH Verified 10/29/20 16:50 venlafaxine [From Effexor] Allergy Mild RASH Verified 10/29/20 16:50 cyclobenzaprine Allergy Unknown UNKNOWN Verified 10/29/20 16:50 [Cyclobenzaprine] fentanyl [FENTANYL] Allergy Unknown HALLUCINATI Verified 10/29/20 16:50 ONS topiramate [From Topamax] Allergy Unknown UNKNOWN Verified 10/29/20 16:50 Sulfa (Sulfonamide AdvReac Severe Diarrhea Verified 10/29/20 16:50 Antibiotics) Review of Systems Review of Systems: ROS unable to be obtained due to altered mental status [facility] Past Medical History Attestation statement: The following information was validated with the patient. Medical History Abnormal PET scan of colon Acute and chronic respiratory failure Acute on chronic diastolic CHF (congestive heart failure) Adenocarcinoma of sigmoid colon Atrial flutter with rapid ventricular response Back pain with history of spinal surgery Bilateral pneumonia Bipolar 1 disorder Bipolar disorder CAD (coronary artery disease) Cancer of lower lobe of left lung CHF exacerbation Chronic back pain Colon cancer Congestive heart failure COPD (chronic obstructive pulmonary disease) COPD (chronic obstructive pulmonary disease) COPD (chronic obstructive pulmonary disease) COVID-19 vaccine series completed Depression Essential hypertension Fibromyalgia GERD (gastroesophageal reflux disease) GI bleed High cholesterol History of COVID-19 HTN (hypertension) Hypernatremia Hypoventilation associated with obesity Hypoxia Lethargy Lung cancer Lung mass Mass of colon No natural teeth Obesity Obesity hypoventilation syndrome Opacity of lung on imaging study IVY (obstructive sleep apnea) Other and unspecified hyperlipidemia Oxygen dependent Pleural effusion, left Preoperative cardiovascular examination PTSD (post-traumatic stress disorder) Renal failure Respiratory failure with hypoxia and hypercapnia Respiratory failure with hypoxia and hypercapnia Restless legs syndrome (RLS) Restrictive lung disease Rotator cuff strain Sleep disorder Smoker UTI (urinary tract infection) Surgical History H/O colonoscopy H/O: hysterectomy History of back surgery History of bunionectomy History of esophagogastroduodenoscopy (EGD) Hx of appendectomy Hx of cholecystectomy Hx of exploratory laparotomy Status post lobectomy of lung Family History Family History Maternal Aunt Breast cancer Stroke COPD (chronic obstructive pulmonary disease) Maternal Aunt Breast cancer COPD (chronic obstructive pulmonary disease) Mother Uterine cancer COPD (chronic obstructive pulmonary disease) HTN (hypertension) Heart disease Maternal Uncle Stroke Paternal Grandmother Heart attack Sister Diabetes IBS (irritable bowel syndrome) Son HTN (hypertension) Daughter HTN (hypertension) Father HTN (hypertension) Brother Heart disease Social History Social History Household Members: Unknown / Unable to assess Housing: Unknown / Unable to assess Are you a primary critical care rn to a significant other at home: No Do you presently have visiting nurse or other home services: Yes ([facility]NA 1 x week, PT 1 x week) Unable to assess alcohol history related to: Unable to respond Patient Tobacco Use Status: Former Tobacco user Cigarettes Per Day: 4 Years Smoked: 40 Patient Given Instructions on How to Stop Smoking: Yes Date Education Initiated: 10/22/20 Second Hand Smoke Exposure: Yes Use of substances other than those prescribed or required for medical reasons: No Have you been hit, kicked, punched, or otherwise hurt by someone within the past year? If so, by whom?: No Are you DNR?: No Advance Directives: No Advance Directives Information Provided: No Advance Directives on File: No Advance Directives Date on File: 05/01/20 Recently lost weight without trying: Yes How much weight loss: 14-23 pounds Eating poorly because of decreased appetite: Yes Nutrition screen score: 5 service: No Current occupational status: unemployed and disabled Physical Exam Vital Signs: Vital Signs: Last Vital Signs Temp 98.4 F 11/18/20 12:37 Pulse 82 11/18/20 14:08 Resp 13 11/18/20 14:10 BP 100/70 11/18/20 14:00 Pulse Ox 86 L 11/18/20 13:00 Body Mass Index 33.7 Appearance: Somnolent Oriented X3. Moderate acute distress. Eyes: Pupils equal, round and reactive to light. 4mm ENT: Pharynx normal. able to protect airway Neck: Normal inspection. Neck supple. CVS: tachycardic and irregular heart rate and rhythm. Pulses normal. Respiratory: Moderate respiratory distress, hypoventilation. Breath sounds decreased throughout Abdomen: Soft and nontender. Skin: Skin warm and dry. Normal skin color. Normal skin turgor. Extremities: No lower extremity edema. No calf ttp Neuro: Oriented X 3. No motor deficit. No sensory deficit. does follow commands but slowly Course Course Course Narrative: on bipap 20/10 , IVF ordered patient is improving on bipap at this time, sats improved. discussion with Allen DNR/DNI. initial BP was likely in error due to transient intermittent afib rechecked manual and it was 102/58 with normal MAP at this time she does not require 30cc/kg bolus as the initial BP was in error will hold fluids at this time 930am patient improving with bipap I suspect that this is polypharmacy and CO2 retention due to hypoventilation and not infection or severe sepsis discussed with Dr. Montez - knows Claire rushing wants to try narcan and Hiflo and then see if she responds and can come off bipap good response to narcan, will attempt hi landen and recheck VBG VBG stable, HR now in 130s afib IV dilt ordered, patient on 35% hi landen now 78% on RA repeat narcan ordered, place back on bipap - admit to ICU at this time given repeat interventions of her respiratory status MDM - Altered Mental Status MDM Narrative Medical decision making narrative: 55 yo female with hx of afib (did not take her AC therapy due to surgery), pneumonia, PVD, IVY on CPAP home O2, recent lung resection for cancer planned laparascopic sigmoid resection today for colon mass, coming from [facility] due to patient being more altered, dyspneic - on arrival the patient tells me she took her prescribed amount of percocet/klonopin this AM but did not use CPAP last night due to anxiety at this time will need stat resuscitation including bipap I expect she is retaining, IVF given initial low BPs, possible rate control vs cardioversion for her intermittent bouts of afib, labs, cultures, CXR planned admit suspect lack of CPAP and medications are contr ibuting to her AMS, recent CT scan shows no lesions in brain Lab Data Result diagrams: 11/18/20 08:54 11/18/20 08:54 Labs: Lab Results 11/18/20 11/18/20 11/18/20 Range/Units 08:08 08:37 08:54 WBC 13.5 H (4.8-10.8) X10*3/uL RBC 3.43 L (4.20-5.50) X10*6/uL Hgb 9.1 L (12.0-16.0) g/dl Hct 32.0 L (37-47) % MCV 93.3 (80-98) fL MCH 26.5 L (27.0-33.0) pg MCHC 28.4 L (31.0-35.0) g/dl RDW 18.6 H (11.0-16.0) % Plt Count 366 (160-400) X10*3/uL MPV 8.7 L (9.4-12.3) fL Immature Gran % (Auto) 0.9 H (0.0-0.4) % Neut % (Auto) 82.2 H (45-73) % Lymph % (Auto) 7.6 L (20-40) % Calloway % (Auto) 9.2 (2-11) % Eos % (Auto) 0.0 (0-4) % Baso % (Auto) 0.1 (0-2) % Lymph # (Auto) 1.0 L (1.2-4.9) X10*3/uL Calloway # (Auto) 1.2 (0.1-1.2) X10*3/uL Eos # (Auto) 0.0 (0.0-0.4) X10*3/uL Baso # (Auto) 0.0 (0.0-0.2) X10*3/uL Abs Immat Gran (auto) 0.12 H (0.00-0.03) X10*3/uL Absolute Neuts (auto) 11.1 H (2.0-8.3) X10*3/uL Absolute Nucleated RBC 0.000 (0.0-0.012) X10*3/uL Nucleated RBC % (auto) 0.0 (0.0-0.2) /100WBC PT (10.8-13.0) SEC INR (0.9-1.1) APTT (24.1-38.0) SEC O2 Saturation 97.0 % ABG pH at Pt Temp 7.29 L (7.35-7.45) ABG pH (Temp Correct) 7.30 L (7.35-7.45) ABG pCO2 at Pt Temp 77 H* (32-45) mmHg ABG pCO2 (Temp Corrct 74 H* (32-45) mmHg ABG pO2 at Pt Temp 99 (83-108) mmHg ABG pO2 (Temp Correct 93 (83-108) ABG HCO3 37 H (22-26) mmol/L ABG Base Excess (Actual) 8.4 mmol/L VBG pH (7.32-7.43) VBG pCO2 mmHg VBG pO2 mmHg VBG HCO3 (22-26) mmol/L VBG O2 Saturation % VBG Base Excess mmol/L Sodium (135-145) mmol/L Potassium (3.3-5.1) mmol/L Chloride (96-108) mmol/L Carbon Dioxide (22-29) mmol/L Anion Gap (12-20) BUN (9-16) mg/dL Creatinine (0.5-1.4) mg/dL Estim Creat Clear Calc Estimated GFR POC Glucose 118 H (60-115) mg/dL Random Glucose (60-115) mg/dL Lactic Acid (0.5-2.0) mmol/L Calcium (8.4-10.2) mg/dL Magnesium (1.6-2.6) mg/dL Total Bilirubin (0.0-1.0) mg/dL Direct Bilirubin (0.0-0.5) mg/dL AST (5-31) U/L ALT (0-31) U/L Alkaline Phosphatase (39-117) U/L Ammonia (13-55) umol/L Troponin I High Sens (<3.5-17.0) ng/L B-Natriuretic Peptide (<100) pg/mL Total Protein (6.5-8.0) g/dL Albumin (3.5-5.0) g/dL Lipase (8-78) U/L Urine Color Urine Appearance Urine pH (5.0-8.0) Ur Specific [place] (1.005-1.025) Urine Protein (NEG-TRACE) MG/DL Urine Glucose (UA) (NEG) MG/DL Urine Ketones (NEG) MG/DL Urine Blood (NEG) Urine Nitrite (NEG) Ur Leukocyte Esterase (NEG) Urine RBC (0) /HPF Urine WBC (0-4) /HPF Ur Squamous Epith Cells /LPF Urine Bacteria /LPF Hyaline Casts /LPF Urine Mucus /LPF Urine Opiates Screen (Not Detect) Ur Barbiturates Screen (Not Detect) Valproic Acid (50.0-100.0) mcg/mL Ur Phencyclidine Scrn (Not Detect) Ur Amphetamines Screen (Not Detect) U Benzodiazepines Scrn (Not Detect) Urine Cocaine Screen (Not Detect) U Marijuana (THC) Screen (Not Detect) COVID-19 (ANA) (Negative) COVID-19 Clin Com 11/18/20 11/18/20 11/18/20 Range/Units 08:54 08:54 08:54 WBC (4.8-10.8) X10*3/uL RBC (4.20-5.50) X10*6/uL Hgb (12.0-16.0) g/dl Hct (37-47) % MCV (80-98) fL MCH (27.0-33.0) pg MCHC (31.0-35.0) g/dl RDW (11.0-16.0) % Plt Count (160-400) X10*3/uL MPV (9.4-12.3) fL Immature Gran % (Auto) (0.0-0.4) % Neut % (Auto) (45-73) % Lymph % (Auto) (20-40) % Calloway % (Auto) (2-11) % Eos % (Auto) (0-4) % Baso % (Auto) (0-2) % Lymph # (Auto) (1.2-4.9) X10*3/uL [place] # (Auto) (0.1-1.2) X10*3/uL Eos # (Auto) (0.0-0.4) X10*3/uL Baso # (Auto) (0.0-0.2) X10*3/uL Abs Immat Gran (auto) (0.00-0.03) X10*3/uL Absolute Neuts (auto) (2.0-8.3) X10*3/uL Absolute Nucleated RBC (0.0-0.012) X10*3/uL Nucleated RBC % (auto) (0.0-0.2) /100WBC PT (10.8-13.0) SEC INR (0.9-1.1) APTT (24.1-38.0) SEC O2 Saturation % ABG pH at Pt Temp (7.35-7.45) ABG pH (Temp Correct) (7.35-7.45) ABG pCO2 at Pt Temp (32-45) mmHg ABG pCO2 (Temp Corrct (32-45) mmHg ABG pO2 at Pt Temp (83-108) mmHg ABG pO2 (Temp Correct (83-108) ABG HCO3 (22-26) mmol/L ABG Base Excess (Actual) mmol/L VBG pH (7.32-7.43) VBG pCO2 mmHg VBG pO2 mmHg VBG HCO3 (22-26) mmol/L VBG O2 Saturation % VBG Base Excess mmol/L Sodium 134 L (135-145) mmol/L Potassium 4.0 (3.3-5.1) mmol/L Chloride 92 L (96-108) mmol/L Carbon Dioxide 35 H (22-29) mmol/L Anion Gap 11 L (12-20) BUN 6 L D (9-16) mg/dL Creatinine 0.69 (0.5-1.4) mg/dL Estim Creat Clear Calc 97.2 Estimated GFR > 60 POC Glucose (60-115) mg/dL Random Glucose 114 D (60-115) mg/dL Lactic Acid (0.5-2.0) mmol/L Calcium 8.0 L (8.4-10.2) mg/dL Magnesium 1.8 (1.6-2.6) mg/dL Total Bilirubin 0.4 (0.0-1.0) mg/dL Direct Bilirubin 0.2 (0.0-0.5) mg/dL AST 13 (5-31) U/L ALT < 6 (0-31) U/L Alkaline Phosphatase 87 D (39-117) U/L Ammonia (13-55) umol/L Troponin I High Sens 7.6 D (<3.5-17.0) ng/L B-Natriuretic Peptide (<100) pg/mL Total Protein 6.1 L (6.5-8.0) g/dL Albumin 3.0 L (3.5-5.0) g/dL Lipase 12 (8-78) U/L Urine Color Urine Appearance Urine pH (5.0-8.0) Ur Specific [place] (1.005-1.025) Urine Protein (NEG-TRACE) MG/DL Urine Glucose (UA) (NEG) MG/DL Urine Ketones (NEG) MG/DL Urine Blood (NEG) Urine Nitrite (NEG) Ur Leukocyte Esterase (NEG) Urine RBC (0) /HPF Urine WBC (0-4) /HPF Ur Squamous Epith Cells /LPF Urine Bacteria /LPF Hyaline Casts /LPF Urine Mucus /LPF Urine Opiates Screen (Not Detect) Ur Barbiturates Screen (Not Detect) Valproic Acid 77.2 (50.0-100.0) mcg/mL Ur Phencyclidine Scrn (Not Detect) Ur Amphetamines Screen (Not Detect) U Benzodiazepines Scrn (Not Detect) Urine Cocaine Screen (Not Detect) U Marijuana (THC) Screen (Not Detect) COVID-19 (ANA) (Negative) COVID-19 Clin Com 11/18/20 11/18/20 11/18/20 Range/Units 08:55 08:55 08:55 WBC (4.8-10.8) X10*3/uL RBC (4.20-5.50) X10*6/uL Hgb (12.0-16.0) g/dl Hct (37-47) % MCV (80-98) fL MCH (27.0-33.0) pg MCHC (31.0-35.0) g/dl RDW (11.0-16.0) % Plt Count (160-400) X10*3/uL MPV (9.4-12.3) fL Immature Gran % (Auto) (0.0-0.4) % Neut % (Auto) (45-73) % Lymph % (Auto) (20-40) % Calloway % (Auto) (2-11) % Eos % (Auto) (0-4) % Baso % (Auto) (0-2) % Lymph # (Auto) (1.2-4.9) X10*3/uL [place] # (Auto) (0.1-1.2) X10*3/uL Eos # (Auto) (0.0-0.4) X10*3/uL Baso # (Auto) (0.0-0.2) X10*3/uL Abs Immat Gran (auto) (0.00-0.03) X10*3/uL Absolute Neuts (auto) (2.0-8.3) X10*3/uL Absolute Nucleated RBC (0.0-0.012) X10*3/uL Nucleated RBC % (auto) (0.0-0.2) /100WBC PT 14.3 H (10.8-13.0) SEC INR 1.2 H (0.9-1.1) APTT 40.0 H (24.1-38.0) SEC O2 Saturation % ABG pH at Pt Temp (7.35-7.45) ABG pH (Temp Correct) (7.35-7.45) ABG pCO2 at Pt Temp (32-45) mmHg ABG pCO2 (Temp Corrct (32-45) mmHg ABG pO2 at Pt Temp (83-108) mmHg ABG pO2 (Temp Correct (83-108) ABG HCO3 (22-26) mmol/L ABG Base Excess (Actual) mmol/L VBG pH (7.32-7.43) VBG pCO2 mmHg VBG pO2 mmHg VBG HCO3 (22-26) mmol/L VBG O2 Saturation % VBG Base Excess mmol/L Sodium (135-145) mmol/L Potassium (3.3-5.1) mmol/L Chloride (96-108) mmol/L Carbon Dioxide (22-29) mmol/L Anion Gap (12-20) BUN (9-16) mg/dL Creatinine (0.5-1.4) mg/dL Estim Creat Clear Calc Estimated GFR POC Glucose (60-115) mg/dL Random Glucose (60-115) mg/dL Lactic Acid (0.5-2.0) mmol/L Calcium (8.4-10.2) mg/dL Magnesium (1.6-2.6) mg/dL Total Bilirubin (0.0-1.0) mg/dL Direct Bilirubin (0.0-0.5) mg/dL AST (5-31) U/L ALT (0-31) U/L Alkaline Phosphatase (39-117) U/L Ammonia 59 H (13-55) umol/L Troponin I High Sens (<3.5-17.0) ng/L B-Natriuretic Peptide 213 H (<100) pg/mL Total Protein (6.5-8.0) g/dL Albumin (3.5-5.0) g/dL Lipase (8-78) U/L Urine Color Urine Appearance Urine pH (5.0-8.0) Ur Specific [place] (1.005-1.025) Urine Protein (NEG-TRACE) MG/DL Urine Glucose (UA) (NEG) MG/DL Urine Ketones (NEG) MG/DL Urine Blood (NEG) Urine Nitrite (NEG) Ur Leukocyte Esterase (NEG) Urine RBC (0) /HPF Urine WBC (0-4) /HPF Ur Squamous Epith Cells /LPF Urine Bacteria /LPF Hyaline Casts /LPF Urine Mucus /LPF Urine Opiates Screen (Not Detect) Ur Barbiturates Screen (Not Detect) Valproic Acid (50.0-100.0) mcg/mL Ur Phencyclidine Scrn (Not Detect) Ur Amphetamines Screen (Not Detect) U Benzodiazepines Scrn (Not Detect) Urine Cocaine Screen (Not Detect) U Marijuana (THC) Screen (Not Detect) COVID-19 (AAN) (Negative) COVID-19 Clin Com 11/18/20 11/18/20 11/18/20 Range/Units 08:55 08:58 08:58 WBC (4.8-10.8) X10*3/uL RBC (4.20-5.50) X10*6/uL Hgb (12.0-16.0) g/dl Hct (37-47) % MCV (80-98) fL MCH (27.0-33.0) pg MCHC (31.0-35.0) g/dl RDW (11.0-16.0) % Plt Count (160-400) X10*3/uL MPV (9.4-12.3) fL Immature Gran % (Auto) (0.0-0.4) % Neut % (Auto) (45-73) % Lymph % (Auto) (20-40) % [place] % (Auto) (2-11) % Eos % (Auto) (0-4) % Baso % (Auto) (0-2) % Lymph # (Auto) (1.2-4.9) X10*3/uL [place] # (Auto) (0.1-1.2) X10*3/uL Eos # (Auto) (0.0-0.4) X10*3/uL Baso # (Auto) (0.0-0.2) X10*3/uL Abs Immat Gran (auto) (0.00-0.03) X10*3/uL Absolute Neuts (auto) (2.0-8.3) X10*3/uL Absolute Nucleated RBC (0.0-0.012) X10*3/uL Nucleated RBC % (auto) (0.0-0.2) /100WBC PT (10.8-13.0) SEC INR (0.9-1.1) APTT (24.1-38.0) SEC O2 Saturation % ABG pH at Pt Temp (7.35-7.45) ABG pH (Temp Correct) (7.35-7.45) ABG pCO2 at Pt Temp (32-45) mmHg ABG pCO2 (Temp Corrct (32-45) mmHg ABG pO2 at Pt Temp (83-108) mmHg ABG pO2 (Temp Correct (83-108) ABG HCO3 (22-26) mmol/L ABG Base Excess (Actual) mmol/L VBG pH (7.32-7.43) VBG pCO2 mmHg VBG pO2 mmHg VBG HCO3 (22-26) mmol/L VBG O2 Saturation % VBG Base Excess mmol/L Sodium (135-145) mmol/L Potassium (3.3-5.1) mmol/L Chloride (96-108) mmol/L Carbon Dioxide (22-29) mmol/L Anion Gap (12-20) BUN (9-16) mg/dL Creatinine (0.5-1.4) mg/dL Estim Creat Clear Calc Estimated GFR POC Glucose (60-115) mg/dL Random Glucose (60-115) mg/dL Lactic Acid 0.9 (0.5-2.0) mmol/L Calcium (8.4-10.2) mg/dL Magnesium (1.6-2.6) mg/dL Total Bilirubin (0.0-1.0) mg/dL Direct Bilirubin (0.0-0.5) mg/dL AST (5-31) U/L ALT (0-31) U/L Alkaline Phosphatase (39-117) U/L Ammonia (13-55) umol/L Troponin I High Sens (<3.5-17.0) ng/L B-Natriuretic Peptide (<100) pg/mL Total Protein (6.5-8.0) g/dL Albumin (3.5-5.0) g/dL Lipase (8-78) U/L Urine Color YELLOW Urine Appearance HAZY Urine pH 6.0 (5.0-8.0) Ur Specific [place] 1.025 (1.005-1.025) Urine Protein 2+ H (NEG-TRACE) MG/DL Urine Glucose (UA) NEG (NEG) MG/DL Urine Ketones NEG (NEG) MG/DL Urine Blood NEG (NEG) Urine Nitrite NEG (NEG) Ur Leukocyte Esterase NEG (NEG) Urine RBC 1-4 (0) /HPF Urine WBC 1-4 (0-4) /HPF Ur Squamous Epith Cells NONE /LPF Urine Bacteria NONE /LPF Hyaline Casts 10-14 /LPF Urine Mucus 3+ /LPF Urine Opiates Screen (Not Detect) Ur Barbiturates Screen (Not Detect) Valproic Acid (50.0-100.0) mcg/mL Ur Phencyclidine Scrn (Not Detect) Ur Amphetamines Screen (Not Detect) U Benzodiazepines Scrn (Not Detect) Urine Cocaine Screen (Not Detect) U Marijuana (THC) Screen (Not Detect) COVID-19 (ANA) Negative (Negative) COVID-19 Clin Com See Note 11/18/20 11/18/20 Range/Units 08:58 11:09 WBC (4.8-10.8) X10*3/uL RBC (4.20-5.50) X10*6/uL Hgb (12.0-16.0) g/dl Hct (37-47) % MCV (80-98) fL MCH (27.0-33.0) pg MCHC (31.0-35.0) g/dl RDW (11.0-16.0) % Plt Count (160-400) X10*3/uL MPV (9.4-12.3) fL Immature Gran % (Auto) (0.0-0.4) % Neut % (Auto) (45-73) % Lymph % (Auto) (20-40) % [place] % (Auto) (2-11) % Eos % (Auto) (0-4) % Baso % (Auto) (0-2) % Lymph # (Auto) (1.2-4.9) X10*3/uL [place] # (Auto) (0.1-1.2) X10*3/uL Eos # (Auto) (0.0-0.4) X10*3/uL Baso # (Auto) (0.0-0.2) X10*3/uL Abs Immat Gran (auto) (0.00-0.03) X10*3/uL Absolute Neuts (auto) (2.0-8.3) X10*3/uL Absolute Nucleated RBC (0.0-0.012) X10*3/uL Nucleated RBC % (auto) (0.0-0.2) /100WBC PT (10.8-13.0) SEC INR (0.9-1.1) APTT (24.1-38.0) SEC O2 Saturation % ABG pH at Pt Temp (7.35-7.45) ABG pH (Temp Correct) (7.35-7.45) ABG pCO2 at Pt Temp (32-45) mmHg ABG pCO2 (Temp Corrct (32-45) mmHg ABG pO2 at Pt Temp (83-108) mmHg ABG pO2 (Temp Correct (83-108) ABG HCO3 (22-26) mmol/L ABG Base Excess (Actual) mmol/L VBG pH 7.38 (7.32-7.43) VBG pCO2 54 mmHg VBG pO2 116 mmHg VBG HCO3 32 H (22-26) mmol/L VBG O2 Saturation 99.0 % VBG Base Excess 6.2 mmol/L Sodium (135-145) mmol/L Potassium (3.3-5.1) mmol/L Chloride (96-108) mmol/L Carbon Dioxide (22-29) mmol/L Anion Gap (12-20) BUN (9-16) mg/dL Creatinine (0.5-1.4) mg/dL Estim Creat Clear Calc Estimated GFR POC Glucose (60-115) mg/dL Random Glucose (60-115) mg/dL Lactic Acid (0.5-2.0) mmol/L Calcium (8.4-10.2) mg/dL Magnesium (1.6-2.6) mg/dL Total Bilirubin (0.0-1.0) mg/dL Direct Bilirubin (0.0-0.5) mg/dL AST (5-31) U/L ALT (0-31) U/L Alkaline Phosphatase (39-117) U/L Ammonia (13-55) umol/L Troponin I High Sens (<3.5-17.0) ng/L B-Natriuretic Peptide (<100) pg/mL Total Protein (6.5-8.0) g/dL Albumin (3.5-5.0) g/dL Lipase (8-78) U/L Urine Color Urine Appearance Urine pH (5.0-8.0) Ur Specific [place] (1.005-1.025) Urine Protein (NEG-TRACE) MG/DL Urine Glucose (UA) (NEG) MG/DL Urine Ketones (NEG) MG/DL Urine Blood (NEG) Urine Nitrite (NEG) Ur Leukocyte Esterase (NEG) Urine RBC (0) /HPF Urine WBC (0-4) /HPF Ur Squamous Epith Cells /LPF Urine Bacteria /LPF Hyaline Casts /LPF Urine Mucus /LPF Urine Opiates Screen POSITIVE H (Not Detect) Ur Barbiturates Screen Not Detected (Not Detect) Valproic Acid (50.0-100.0) mcg/mL Ur Phencyclidine Scrn Not Detected (Not Detect) Ur Amphetamines Screen Not Detected (Not Detect) U Benzodiazepines Scrn Not Detected (Not Detect) Urine Cocaine Screen Not Detected (Not Detect) U Marijuana (THC) Screen Not Detected (Not Detect) COVID-19 (ANA) (Negative) COVID-19 Clin Com ECG Data ECG #1: Attestation: I personally reviewed and interpreted this ECG as follows: ECG interpretation date: 11/18/20 ECG interpretation time: 08:24 Interpretation: Rate: 90 Rhythm: NSR [place]: normal Normal P waves. Normal SOHAIL. Normal QRS complex. ST T wave : flat t aves, poor R wave progression, no JOHN qTC: normal prior studies: no acute ischemia The study has been interpreted contemporaneously by me. . Critical Care Time Critical Care Time Critical Care Time: Yes Total Critical Care Time: 90 Attestation: bipap, call to ICU, review of records, discussion with , repeat checks I attest to this time spent taking care of the patient Discharge Plan Discharge Clinical Impression: Acute alteration in mental status, Atrial fibrillation with RVR, Acute respiratory failure with hypoxia and hypercarbia, Polysubstance (including opioids) dependence, binge pattern, Hypoxia Patient Disposition: Admitted As Inpatient Discharge Date/Time: 11/18/20 13:15
[2020-11-18] MEDS: 0.9 % Sodium Chloride 2,670 ML 2670 ML IVCONT (08:19)
[2020-11-18 08:23] LABS: Glucose, Whole Blood 118 mg/dL (60-115)
[2020-11-18] MEDS: methylPREDNISolone Sod Succ 125 MG/2 ML VIAL IVPUSH (08:24)
[2020-11-18 08:44] LABS: ABG Base Excess 8.4 mmol/L; ABG HCO3 37 mmol/L (22-26); ABG pCO2 77 mmHg (32-45); ABG pCO2 TC 74 mmHg (32-45); ABG pH 7.29 (7.35-7.45); ABG pO2 99 mmHg (83-108); ABG pO2 TC 93 (83-108)
[2020-11-18] MEDS: Albuterol Sulfate (0.083%) 2.5 MG/3 ML VIAL.NEB INHALE (08:46)
[2020-11-18] MEDS: cefTRIAXone sodium 1 GM in 0.9 % Sodium Chloride 50 ML IV (09:01)
[2020-11-18 09:06] LABS: MANUAL DIFF FLAG NO
[2020-11-18 09:13] LABS: Basophils Percent Auto 0.1 % (0-2); Hemoglobin 9.1 g/dl (12.0-16.0); Imm Gran Abs Auto 0.12 X10*3/uL (0.00-0.03); Imm Gran Pct Auto 0.9 % (0.0-0.4); Lymphocytes Percent Auto 7.6 % (20-40); Mean Corpuscular HGB Conc 28.4 g/dl (31.0-35.0); Mean Corpuscular Hemoglobin 26.5 pg (27.0-33.0); Mean Corpuscular Volume 93.3 fL (80-98); Mean Platelet Volume 8.7 fL (9.4-12.3); Monocytes Absolute Auto 1.2 X10*3/uL (0.1-1.2); Monocytes Percent Auto 9.2 % (2-11); Neutrophils Absolute Auto 11.1 X10*3/uL (2.0-8.3); Neutrophils Percent Auto 82.2 % (45-73); Platelet Count 366 X10*3/uL (160-400); Red Blood Count 3.43 X10*6/uL (4.20-5.50); Red Cell Distribution Width 18.6 % (11.0-16.0); White Blood Count 13.5 X10*3/uL (4.8-10.8)
[2020-11-18 09:15] LABS: Glucose Urine UA NEG (NEG); Leukocyte Esterase Urine NEG (NEG); Nitrite Urine NEG (NEG); Specific Gravity - Urine 1.025 (1.005-1.025); Urine Blood NEG (NEG); Urine Ketones NEG (NEG); Urine Protein 2+ MG/DL (NEG-TRACE)
[2020-11-18 09:16] LABS: Appearance Urine HAZY; Color Urine YELLOW
[2020-11-18 09:23] LABS: Mucus Urine 3+ /LPF
[2020-11-18 09:31] LABS: INTERNATIONAL NORM RATIO 1.2 (0.9-1.1); Prothrombin Time 14.3 SEC (10.8-13.0)
[2020-11-18 09:33] LABS: Ammonia 59 umol/L (13-55)
--- NOTE | 2020-11-18 09:34 | PC.NURSE ---
initial bp was 76/30 but was taken w automated cuff when hr was 140, shortly after we took a manual bp and it was 102/52, bp's have been over 100systolic and dr Willis and I believe the first bp that was low was not acccurate due to the rapid afib
[2020-11-18 09:38] LABS: Lactic Acid 0.9 mmol/L (0.5-2.0)
[2020-11-18 09:40] LABS: COVID-19 Test Negative (Negative); IDNOW Serial# 9DD0AD1C
[2020-11-18 09:43] LABS: Amphetamine Screen Urine Not Detected (Not Detect); Barbiturates, Urine Not Detected (Not Detect); Benzodiazepines Screen Urine Not Detected (Not Detect); Cannabinoid Screen Urine Not Detected (Not Detect); Cocaine Screen Urine Not Detected (Not Detect); Opiate Screen Urine POSITIVE (Not Detect); Phencyclidine Screen Urine Not Detected (Not Detect)
[2020-11-18 09:44] LABS: Anion Gap 11 (12-20); Blood Urea Nitrogen 6 mg/dL (9-16); Carbon Dioxide 35 mmol/L (22-29); Chloride 92 mmol/L (96-108); Creatinine Clr Calc Pharmacy 97.2; Estimated Glomerular Filt Rate > 60; Glucose Random 114 mg/dL (60-115); Sodium 134 mmol/L (135-145)
[2020-11-18 09:45] LABS: Alanine Aminotransferase < 6 U/L (0-31); Alkaline Phosphatase 87 U/L (39-117); Aspartate Amino Transferase 13 U/L (5-31); Bilirubin Direct 0.2 mg/dL (0.0-0.5); Bilirubin Total 0.4 mg/dL (0.0-1.0); Lipase 12 U/L (8-78); Magnesium 1.8 mg/dL (1.6-2.6); Total Protein 6.1 g/dL (6.5-8.0)
--- NOTE | 2020-11-18 09:45 | PHA.MEDREC ---
Pharmacy Consult ? Medication Reconciliation Pharmacy has completed the medication reconciliation.
[2020-11-18 09:47] LABS: B Type Natriuretic Peptide 213 pg/mL (<100)
[2020-11-18 09:47] LABS: Troponin-I High Sensitivity 7.6 ng/L (<3.5-17.0)
--- NOTE | 2020-11-18 10:10 | PC.NURSE ---
ct complete, awakens to painful stim and vigorous touch/verbal stim. bouncing between afib 110-140 [address] sr 80 s, skin wpd, on bipap, approx 40ml output in [place]
--- NOTE | 2020-11-18 10:13 | PC.NURSE ---
approx 700ml ns infused prior to dr hitchcock ordering to stop the fluids
[2020-11-18 10:16] LABS: Valproate 77.2 mcg/mL (50.0-100.0)
[2020-11-18] MEDS: Naloxone HCl 0.4 MG/ML VIAL 0.2 MG IVPUSH ×2 (10:30→11:45)
[2020-11-18 11:05] LABS: ABG Refer to POC result
[2020-11-18 11:16] LABS: Venous Blood Gas Refer to POC result
[2020-11-18 11:16] LABS: VBG Base Excess 6.2 mmol/L; VBG HCO3 32 mmol/L (22-26); VBG pCO2 54 mmHg; VBG pH 7.38 (7.32-7.43); VBG pO2 116 mmHg
[2020-11-18] MEDS: dilTIAZem HCL 125 MG in 0.9 % Sodium Chloride 100 ML 10 MG IVCONT ×2 (11:44→21:08)
--- NOTE | 2020-11-18 12:56 | P.HPCC_ITS ---
History of Present Illness Date of Service: 11/18/20 Chief Complaint: Altered mental status 55-year-old moderately obese female with chronic obesity/hypoventilation and sleep apnea not very compliant she takes combination of prescribed medicine which she has been advised against to include oxycodone and Klonopin but for bipolar disorder takes valproic acid as well and has had issues with elevated ammonia level and encephalopathy but is also an acute on chronic hypercarbic respiratory failure which is very common with these combined medicines and presented in that fashion today with with altered mental status manifested by a significant lethargy but still responds to voice of followed very simple commands but extremely lethargic falls back to sleep but in doing so heard GCS score I would say exceeds 8 where it might be safe to try her on BiPAP and would probably look to give her at least 1 dose of Narcan to document some degree of improvement but nothing to reversed the benzodiazepine and affect Currently in atrial flutter with rapid ventricular response and she does that paroxysmally and she takes a combination of beta katharine as well as Cardizem at home to control the rhythm and does have a history of chronic diastolic CHF currently with a BNP over 200 but she has been as high as 1500 on previous occasions but chest x-ray potentially has a a Thorek appearance to it but no evidence of effusion She status post resection of left lower lobe of her lung for carcinoma which was poorly differentiated and she was pending and elective colon resection for an adenocarcinoma there from which she has chronic blood shadowing and rate and she remains chronically anemic but because of altered mental status that surgery is now withheld and the patient apparently is on BiPAP QT interval is within normal limits despite the valproic acid and the amitriptyline and her ammonia level is just just barely above the upper limit of normal Review of Systems Review of Systems: Yes Unobtainable due to mental status PMFSH Past Medical History Medical History Abnormal PET scan of colon Acute and chronic respiratory failure Acute on chronic diastolic CHF (congestive heart failure) Adenocarcinoma of sigmoid colon Atrial flutter with rapid ventricular response Back pain with history of spinal surgery Bilateral pneumonia Bipolar 1 disorder Bipolar disorder CAD (coronary artery disease) Cancer of lower lobe of left lung CHF exacerbation Chronic back pain Colon cancer Congestive heart failure COPD (chronic obstructive pulmonary disease) COPD (chronic obstructive pulmonary disease) COPD (chronic obstructive pulmonary disease) COVID-19 vaccine series completed Depression Essential hypertension Fibromyalgia GERD (gastroesophageal reflux disease) GI bleed High cholesterol History of COVID-19 HTN (hypertension) Hypernatremia Hypoventilation associated with obesity Hypoxia Lethargy Lung cancer Lung mass Mass of colon No natural teeth Obesity Obesity hypoventilation syndrome Opacity of lung on imaging study IVY (obstructive sleep apnea) Other and unspecified hyperlipidemia Oxygen dependent Pleural effusion, left Preoperative cardiovascular examination PTSD (post-traumatic stress disorder) Renal failure Respiratory failure with hypoxia and hypercapnia Respiratory failure with hypoxia and hypercapnia Restless legs syndrome (RLS) Restrictive lung disease Rotator cuff strain Sleep disorder Smoker UTI (urinary tract infection) Family History Family History Maternal Aunt Breast cancer Stroke COPD (chronic obstructive pulmonary disease) Maternal Aunt Breast cancer COPD (chronic obstructive pulmonary disease) Mother Uterine cancer COPD (chronic obstructive pulmonary disease) HTN (hypertension) Heart disease Maternal Uncle Stroke Paternal Grandmother Heart attack Sister Diabetes IBS (irritable bowel syndrome) Son HTN (hypertension) Daughter HTN (hypertension) Father HTN (hypertension) Brother Heart disease Surgical History Surgical History H/O colonoscopy H/O: hysterectomy History of back surgery History of bunionectomy History of esophagogastroduodenoscopy (EGD) Hx of appendectomy Hx of cholecystectomy Hx of exploratory laparotomy Status post lobectomy of lung Social History Social History Household Members: Significant Other Housing: House Are you a primary day care home mother to a significant other at home: No Do you presently have visiting nurse or other home services: Yes (VNA 1 x week, PT 1 x week) Patient Tobacco Use Status: Former Tobacco user Cigarettes Per Day: 4 Years Smoked: 40 Patient Given Instructions on How to Stop Smoking: Yes Date Education Initiated: 10/22/20 Second Hand Smoke Exposure: Yes Use of substances other than those prescribed or required for medical reasons: No Have you been hit, kicked, punched, or otherwise hurt by someone within the past year? If so, by whom?: No Are you DNR?: No Advance Directives: No Advance Directives Information Provided: No Advance Directives on File: No Advance Directives Date on File: 05/01/20 Recently lost weight without trying: Yes How much weight loss: 14-23 pounds Eating poorly because of decreased appetite: Yes Nutrition screen score: 5 service: No Current occupational status: unemployed and disabled Meds Allergies Allergy/AdvReac Type Severity Reaction Status Date / Time levofloxacin [From Levaquin] Allergy Severe Diarrhea Verified 10/29/20 16:50 Penicillins Allergy Mild RASH Verified 10/29/20 16:50 venlafaxine [From Effexor] Allergy Mild RASH Verified 10/29/20 16:50 cyclobenzaprine Allergy Unknown UNKNOWN Verified 10/29/20 16:50 [Cyclobenzaprine] fentanyl [FENTANYL] Allergy Unknown HALLUCINATI Verified 10/29/20 16:50 ONS topiramate [From Topamax] Allergy Unknown UNKNOWN Verified 10/29/20 16:50 Sulfa (Sulfonamide AdvReac Severe Diarrhea Verified 10/29/20 16:50 Antibiotics) Active Medications: Current Medications Generic Name Dose Route Start Last Admin Trade Name Freq PRN Reason Stop Dose Admin Albuterol/Ipratropium 3 ml 11/18/20 14:00 Albuterol/Iprat 2.5/0.5mg 3 Ml Ampul.Neb INHALE 5XD [facility] Heparin Sodium (Porcine) 5,000 unit 11/18/20 12:45 Heparin Sodium,Porcine 5,000 Unit/Ml Vial SUBCUT Q8H [facility] Diltiazem HCl 125 mg/ Sodium 125 mls @ 0 mls/hr 11/18/20 11:30 11/18/20 12:38 Chloride IVCONT 10 mg/hr .Q0M [facility] 10 mls/hr Titration Protocol Per Protocol Dextrose/Sodium Chloride 1,000 mls @ 40 mls/hr 11/18/20 12:15 D5ns IVCONT .Q24H [facility] Pantoprazole Sodium 40 mg 11/19/20 06:30 Pantoprazole Sodium 40 Mg/10 Ml Vial IVPUSH DAILY@0630 [facility] Pharmacy Consult 1 each 11/18/20 07:57 Consult Rx Perform Med Rec MISCELLANE ONCE PRN Consult order Home Medications Medication Instructions Recorded Confirmed Last Taken Type amitriptyline 25 mg PO BEDTIME 04/21/20 11/18/20 09/08/20 History divalproex 500 mg PO QAM 04/21/20 11/18/20 09/09/20 History duloxetine 60 mg PO BEDTIME 04/21/20 11/18/20 09/08/20 History omeprazole 20 mg PO BID 04/21/20 11/18/20 09/09/20 History Breo Ellipta 1 inh INHALATION DAILY 05/26/20 11/18/20 11/18/20 05:15 History Incruse Ellipta 1 inh INHALATION DAILY 05/26/20 11/18/20 09/09/20 History hydralazine 50 mg PO TID 05/26/20 11/18/20 09/09/20 History metoprolol succinate 50 mg PO DAILY 05/26/20 11/18/20 09/09/20 History atorvastatin 20 mg PO BEDTIME 07/03/20 11/18/20 09/08/20 History divalproex 1,000 mg PO QPM 09/10/20 11/18/20 09/08/20 History ferrous sulfate 1 tab PO BID 09/10/20 11/18/20 09/09/20 History blood pressure monitor #1 ea 10/22/20 10/22/20 Unknown History blood pressure test kit-large #1 ea 10/22/20 10/22/20 Unknown History ondansetron HCl [Zofran] 4 mg PO Q6H PRN 10/22/20 11/18/20 Unknown History apixaban [Eliquis] 5 mg PO BID 11/18/20 11/18/20 Unknown History clonazepam 1 tab PO TID PRN 11/18/20 11/18/20 11/18/20 05:15 History oxycodone-acetaminophen 1 tab PO 5XD PRN 11/18/20 11/18/20 11/18/20 05:15 History Physical Exam Vital Signs: Vital Signs: Last Vital Signs Temp 98.4 F 11/18/20 12:37 Pulse 99 11/18/20 12:37 Resp 16 11/18/20 12:37 BP 97/57 L 11/18/20 12:37 Pulse Ox 91 L 11/18/20 12:37 Body Mass Index 33.7 Opens eyes spontaneously can follow verbal commands and GCS score greater than 8 Rapid atrial flutter but good bilateral carotid upstrokes Lungs with no adventitious sounds Cardiac exam with no gallops or murmurs Abdomen benign soft nontender no organomegaly Results Labs CBC and Chem 7: 11/18/20 08:54 11/18/20 08:54 Labs: Laboratory Results - last 24 hr 11/18/20 11/18/20 11/18/20 08:08 08:37 08:54 MCV 93.3 MCH 26.5 L MCHC 28.4 L RDW 18.6 H Plt Count 366 MPV 8.7 L Immature Gran % (Auto) 0.9 H Neut % (Auto) 82.2 H Lymph % (Auto) 7.6 L [place] % (Auto) 9.2 Eos % (Auto) 0.0 Baso % (Auto) 0.1 Lymph # (Auto) 1.0 L [place] # (Auto) 1.2 Eos # (Auto) 0.0 Baso # (Auto) 0.0 Abs Immat Gran (auto) 0.12 H Absolute Neuts (auto) 11.1 H Absolute Nucleated RBC 0.000 Nucleated RBC % (auto) 0.0 PT INR APTT O2 Saturation 97.0 ABG pH at Pt Temp 7.29 L ABG pH (Temp Correct) 7.30 L ABG pCO2 at Pt Temp 77 H* ABG pCO2 (Temp Corrct 74 H* ABG pO2 at Pt Temp 99 ABG pO2 (Temp Correct 93 ABG HCO3 37 H ABG Base Excess (Actual) 8.4 VBG pH VBG pCO2 VBG pO2 VBG HCO3 VBG O2 Saturation VBG Base Excess Anion Gap Estim Creat Clear Calc Estimated GFR POC Glucose 118 H Random Glucose Lactic Acid Calcium Magnesium Total Bilirubin Direct Bilirubin AST ALT Alkaline Phosphatase Ammonia Troponin I High Sens B-Natriuretic Peptide Total Protein Albumin Lipase Urine Color Urine Appearance Urine pH Ur Specific [place] Urine Protein Urine Glucose (UA) Urine Ketones Urine Blood Urine Nitrite Ur Leukocyte Esterase Urine RBC Urine WBC Ur Squamous Epith Cells Urine Bacteria Hyaline Casts Urine Mucus Urine Opiates Screen Ur Barbiturates Screen Valproic Acid Ur Phencyclidine Scrn Ur Amphetamines Screen U Benzodiazepines Scrn Urine Cocaine Screen U Marijuana (THC) Screen COVID-19 (ANA) COVID-19 Clin Com 11/18/20 11/18/20 11/18/20 08:54 08:54 08:54 MCV MCH MCHC RDW Plt Count MPV Immature Gran % (Auto) Neut % (Auto) Lymph % (Auto) [place] % (Auto) Eos % (Auto) Baso % (Auto) Lymph # (Auto) [place] # (Auto) Eos # (Auto) Baso # (Auto) Abs Immat Gran (auto) Absolute Neuts (auto) Absolute Nucleated RBC Nucleated RBC % (auto) PT INR APTT O2 Saturation ABG pH at Pt Temp ABG pH (Temp Correct) ABG pCO2 at Pt Temp ABG pCO2 (Temp Corrct ABG pO2 at Pt Temp ABG pO2 (Temp Correct ABG HCO3 ABG Base Excess (Actual) VBG pH VBG pCO2 VBG pO2 VBG HCO3 VBG O2 Saturation VBG Base Excess Anion Gap 11 L Estim Creat Clear Calc 97.2 Estimated GFR > 60 POC Glucose Random Glucose 114 D Lactic Acid Calcium 8.0 L Magnesium 1.8 Total Bilirubin 0.4 Direct Bilirubin 0.2 AST 13 ALT < 6 Alkaline Phosphatase 87 D Ammonia Troponin I High Sens 7.6 D B-Natriuretic Peptide Total Protein 6.1 L Albumin 3.0 L Lipase 12 Urine Color Urine Appearance Urine pH Ur Specific [place] Urine Protein Urine Glucose (UA) Urine Ketones Urine Blood Urine Nitrite Ur Leukocyte Esterase Urine RBC Urine WBC Ur Squamous Epith Cells Urine Bacteria Hyaline Casts Urine Mucus Urine Opiates Screen Ur Barbiturates Screen Valproic Acid 77.2 Ur Phencyclidine Scrn Ur Amphetamines Screen U Benzodiazepines Scrn Urine Cocaine Screen U Marijuana (THC) Screen COVID-19 (ANA) COVID-19 Clin Com 11/18/20 11/18/20 11/18/20 08:55 08:55 08:55 MCV MCH MCHC RDW Plt Count MPV Immature Gran % (Auto) Neut % (Auto) Lymph % (Auto) [place] % (Auto) Eos % (Auto) Baso % (Auto) Lymph # (Auto) [place] # (Auto) Eos # (Auto) Baso # (Auto) Abs Immat Gran (auto) Absolute Neuts (auto) Absolute Nucleated RBC Nucleated RBC % (auto) PT 14.3 H INR 1.2 H APTT 40.0 H O2 Saturation ABG pH at Pt Temp ABG pH (Temp Correct) ABG pCO2 at Pt Temp ABG pCO2 (Temp Corrct ABG pO2 at Pt Temp ABG pO2 (Temp Correct ABG HCO3 ABG Base Excess (Actual) VBG pH VBG pCO2 VBG pO2 VBG HCO3 VBG O2 Saturation VBG Base Excess Anion Gap Estim Creat Clear Calc Estimated GFR POC Glucose Random Glucose Lactic Acid Calcium Magnesium Total Bilirubin Direct Bilirubin AST ALT Alkaline Phosphatase Ammonia 59 H Troponin I High Sens B-Natriuretic Peptide 213 H Total Protein Albumin Lipase Urine Color Urine Appearance Urine pH Ur Specific [place] Urine Protein Urine Glucose (UA) Urine Ketones Urine Blood Urine Nitrite Ur Leukocyte Esterase Urine RBC Urine WBC Ur Squamous Epith Cells Urine Bacteria Hyaline Casts Urine Mucus Urine Opiates Screen Ur Barbiturates Screen Valproic Acid Ur Phencyclidine Scrn Ur Amphetamines Screen U Benzodiazepines Scrn Urine Cocaine Screen U Marijuana (THC) Screen COVID-19 (ANA) COVID-19 [employer] Com 11/18/20 11/18/20 11/18/20 08:55 08:58 08:58 MCV MCH MCHC RDW Plt Count MPV Immature Gran % (Auto) Neut % (Auto) Lymph % (Auto) [place] % (Auto) Eos % (Auto) Baso % (Auto) Lymph # (Auto) [place] # (Auto) Eos # (Auto) Baso # (Auto) Abs Immat Gran (auto) Absolute Neuts (auto) Absolute Nucleated RBC Nucleated RBC % (auto) PT INR APTT O2 Saturation ABG pH at Pt Temp ABG pH (Temp Correct) ABG pCO2 at Pt Temp ABG pCO2 (Temp Corrct ABG pO2 at Pt Temp ABG pO2 (Temp Correct ABG HCO3 ABG Base Excess (Actual) VBG pH VBG pCO2 VBG pO2 VBG HCO3 VBG O2 Saturation VBG Base Excess Anion Gap Estim Creat Clear Calc Estimated GFR POC Glucose Random Glucose Lactic Acid 0.9 Calcium Magnesium Total Bilirubin Direct Bilirubin AST ALT Alkaline Phosphatase Ammonia Troponin I High Sens B-Natriuretic Peptide Total Protein Albumin Lipase Urine Color YELLOW Urine Appearance HAZY Urine pH 6.0 Ur Specific [place] 1.025 Urine Protein 2+ H Urine Glucose (UA) NEG Urine Ketones NEG Urine Blood NEG Urine Nitrite NEG Ur Leukocyte Esterase NEG Urine RBC 1-4 Urine WBC 1-4 Ur Squamous Epith Cells NONE Urine Bacteria NONE Hyaline Casts 10-14 Urine Mucus 3+ Urine Opiates Screen Ur Barbiturates Screen Valproic Acid Ur Phencyclidine Scrn Ur Amphetamines Screen U Benzodiazepines Scrn Urine Cocaine Screen U Marijuana (THC) Screen COVID-19 (ANA) Negative COVID-19 Clin Com See Note 11/18/20 11/18/20 08:58 11:09 MCV MCH MCHC RDW Plt Count MPV Immature Gran % (Auto) Neut % (Auto) Lymph % (Auto) [place] % (Auto) Eos % (Auto) Baso % (Auto) Lymph # (Auto) [place] # (Auto) Eos # (Auto) Baso # (Auto) Abs Immat Gran (auto) Absolute Neuts (auto) Absolute Nucleated RBC Nucleated RBC % (auto) PT INR APTT O2 Saturation ABG pH at Pt Temp ABG pH (Temp Correct) ABG pCO2 at Pt Temp ABG pCO2 (Temp Corrct ABG pO2 at Pt Temp ABG pO2 (Temp Correct ABG HCO3 ABG Base Excess (Actual) VBG pH 7.38 VBG pCO2 54 VBG pO2 116 VBG HCO3 32 H VBG O2 Saturation 99.0 VBG Base Excess 6.2 Anion Gap Estim Creat Clear Calc Estimated GFR POC Glucose Random Glucose Lactic Acid Calcium Magnesium Total Bilirubin Direct Bilirubin AST ALT Alkaline Phosphatase Ammonia Troponin I High Sens B-Natriuretic Peptide Total Protein Albumin Lipase Urine Color Urine Appearance Urine pH Ur Specific [place] Urine Protein Urine Glucose (UA) Urine Ketones Urine Blood Urine Nitrite Ur Leukocyte Esterase Urine RBC Urine WBC Ur Squamous Epith Cells Urine Bacteria Hyaline Casts Urine Mucus Urine Opiates Screen POSITIVE H Ur Barbiturates Screen Not Detected Valproic Acid Ur Phencyclidine Scrn Not Detected Ur Amphetamines Screen Not Detected U Benzodiazepines Scrn Not Detected Urine Cocaine Screen Not Detected U Marijuana (THC) Screen Not Detected COVID-19 (ANA) COVID-19 Clin Com Imaging Radiologist's Impressions: Impressions Chest X-Ray 11/18/20 07:58 IMPRESSION: Question new mild CHF. Left lower lobe atelectasis/consolidation and small left pleural effusion similar to previous exams. Head CT 11/18/20 08:46 IMPRESSION: No acute intracranial process seen. Assessment and Plan (1) Pericardial effusion: Status: Acute (2) Peripheral vascular disease: Status: Acute (3) Pneumonia: Qualifiers: Laterality: right Lung location: upper lobe of lung Pneumonia type: due to unspecified organism Qualified Code(s): J18.9 - Pneumonia, unspecified organism Status: Acute (4) Atrial fibrillation with rapid ventricular response: Status: Acute (5) Hypoxia: Status: Acute (6) Polysubstance (including opioids) dependence, binge pattern: Status: Acute (7) Acute respiratory failure with hypoxia and hypercarbia: Status: Acute (8) Atrial fibrillation with RVR: Status: Acute (9) Acute alteration in mental status: Status: Acute Will admit her on BiPAP and follow her VBG and then possibly wean as she awakens to high-flow nasal cannula allowing her to eat and inform surgery of her presence here so she could be scheduled for the OR and will withhold valproic acid as well as opiates and immediately the benzodiazepines as well and may just introduce the benzodiazepine to prevent any withdrawal issues as she awakens as a singular drug IV Cardizem drip currently which I agree with for the atrial flutter
[2020-11-18] MEDS: Heparin Sodium,Porcine 5,000 UNIT/ML VIAL 5000 UNIT SUBCUT ×2 (14:05→22:15)
[2020-11-18] MEDS: Albuterol/Iprat 2.5/0.5MG 3 ML AMPUL.NEB INHALE ×3 (14:06→19:46)
[2020-11-18 17:23] LABS: VBG Base Excess 12.6 mmol/L; VBG HCO3 41 mmol/L (22-26); VBG pCO2 77 mmHg; VBG pH 7.33 (7.32-7.43); VBG pO2 47 mmHg
[2020-11-18 17:52] LABS: Acetaminophen LAB < 1 mcg/mL (<30)
[2020-11-18 19:09] LABS: Venous Blood Gas Refer to POC result
[2020-11-18] MEDS: Nystatin Powder 15 GM BOTTLE 1 APPL TOPICAL (21:18)
[2020-11-18 21:19] LABS: VBG Base Excess 14.4 mmol/L; VBG HCO3 43 mmol/L (22-26); VBG pCO2 76 mmHg; VBG pH 7.35 (7.32-7.43); VBG pO2 37 mmHg
[2020-11-18 21:37] LABS: Venous Blood Gas Refer to POC result
[2020-11-18 22:57] LABS: VBG Base Excess 14.9 mmol/L; VBG HCO3 40 mmol/L (22-26); VBG pCO2 54 mmHg; VBG pH 7.47 (7.32-7.43); VBG pO2 55 mmHg
[2020-11-18 23:49] LABS: Venous Blood Gas Refer to POC result
[2020-11-19] VITALS (33 sets, daily range): BP systolic 101–167; BP diastolic 58–81; PULSE 77–125; RESP 13–27; TEMP 36.3–37.4; O2SAT 91–99; BMI 34.0
[2020-11-19] MEDS: Albuterol/Iprat 2.5/0.5MG 3 ML AMPUL.NEB INHALE ×4 (05:05→22:54)
[2020-11-19] MEDS: Heparin Sodium,Porcine 5,000 UNIT/ML VIAL 5000 UNIT SUBCUT ×3 (05:30→21:44)
[2020-11-19 05:31] LABS: VBG Base Excess 14.4 mmol/L; VBG HCO3 37 mmol/L (22-26); VBG pCO2 39 mmHg; VBG pH 7.58 (7.32-7.43); VBG pO2 45 mmHg
[2020-11-19] MEDS: Pantoprazole Sodium 40 MG/10 ML VIAL IVPUSH (05:31)
[2020-11-19 05:32] LABS: Venous Blood Gas Refer to POC result
--- NOTE | 2020-11-19 06:15 | PC.NURSE ---
CARE ASSUMED 23;15...MAINTAINED BIPAP/AVAPS OVERNIGHT...DROWSY BUT AWAKENS AND CONVERSES..VSS...ATRIAL FLUTTER HR 80'S-90'S...CARDIZEM DRIP 10 MG/HR..D5NS 100 CC/HR...AWAKE..ALERT. THIS AM...ICU PA AND RT PRESENT...TRANSITIONED TO 02 5 L/M CANNULA...NO DISTRESS...SAO2 90-92%..PER ICU PA SAO2 GOAL = SAO2 88% OR GREATER...RESTFUL...DIET ORDERED BY PA
--- NOTE | 2020-11-19 07:39 | P.PNCC_ITS ---
Subjective Subjective Date of Service: 11/19/20 Interval History: 55-year-old moderately obese female with sleep apnea and poor compliance with her nocturnal CPAP and presents with 1 of many admissions all similar taking prescribed and combined Klonopin on along with prescribed Percocet probably in a larger than prescribed dose and tramadol took all these failed to comply with CPAP presented with lethargy for 0 was to be elective left colon resection for adenocarcinoma and was sent to the emergency room instead found to be acute on chronic hypercarbic respiratory failure with just mild respiratory acidosis and received 24 hours of BiPAP therapy with pCO2 2 improved at approximately 39 and and a pH of 7.5 and is currently awake can probably be started on her diet now and until such time as surgery is scheduled will probably keep her on subcutaneous heparin but she can have ad-myke activity and diet restored but will continue to withhold her oral anticoagulant Anticoagulation on board for paroxysmal atrial flutter which she is currently in and is on as a mild amount of IV Cardizem but she normally takes oral metoprolol and oral diltiazem at home and that can be rebuilt when transfer to the floor Critical Care Time (minutes): 25 Physical Exam Vital Signs: Vital Signs: Last Vital Signs Temp 97.9 F 11/19/20 04:00 Pulse 120 H 11/19/20 07:00 Resp 20 11/19/20 07:00 BP 115/68 11/19/20 07:00 Pulse Ox 92 11/19/20 07:00 Oxygen Flow Rate 30 11/18/20 12:09 Body Mass Index 33.7 Const: Other: Awake and appropriate and nonfocal neurologic Rachel Chest without adventitious sounds Cardiac exam without murmur or gallop or neck vein distension and has good bilateral carotid upstrokes Skin is intact Abdomen soft with no organomegaly and good bowel sounds Objective Data Labs CBC & Chem 7: 11/18/20 08:54 11/18/20 08:54 Labs: Laboratory Results - last 24 hr 11/18/20 11/18/20 11/18/20 08:08 08:37 08:54 WBC 13.5 H RBC 3.43 L Hgb 9.1 L Hct 32.0 L MCV 93.3 MCH 26.5 L MCHC 28.4 L RDW 18.6 H Plt Count 366 MPV 8.7 L Immature Gran % (Auto) 0.9 H Neut % (Auto) 82.2 H Lymph % (Auto) 7.6 L Garden % (Auto) 9.2 Eos % (Auto) 0.0 Baso % (Auto) 0.1 Lymph # (Auto) 1.0 L Garden # (Auto) 1.2 Eos # (Auto) 0.0 Baso # (Auto) 0.0 Abs Immat Gran (auto) 0.12 H Absolute Neuts (auto) 11.1 H Absolute Nucleated RBC 0.000 Nucleated RBC % (auto) 0.0 PT INR APTT O2 Saturation 97.0 ABG pH at Pt Temp 7.29 L ABG pH (Temp Correct) 7.30 L ABG pCO2 at Pt Temp 77 H* ABG pCO2 (Temp Corrct 74 H* ABG pO2 at Pt Temp 99 ABG pO2 (Temp Correct 93 ABG HCO3 37 H ABG Base Excess (Actual) 8.4 VBG pH VBG pCO2 VBG pO2 VBG HCO3 VBG O2 Saturation VBG Base Excess Sodium Potassium Chloride Carbon Dioxide Anion Gap BUN Creatinine Estim Creat Clear Calc Estimated GFR POC Glucose 118 H Random Glucose Lactic Acid Calcium Magnesium Total Bilirubin Direct Bilirubin AST ALT Alkaline Phosphatase Ammonia Troponin I High Sens B-Natriuretic Peptide Total Protein Albumin Lipase Urine Color Urine Appearance Urine pH Ur Specific [place]bena Urine Protein Urine Glucose (UA) Urine Ketones Urine Blood Urine Nitrite Ur Leukocyte Esterase Urine RBC Urine WBC Ur Squamous Epith Cells Urine Bacteria Hyaline Casts Urine Mucus Urine Opiates Screen Acetaminophen Ur Barbiturates Screen Valproic Acid Ur Phencyclidine Scrn Ur Amphetamines Screen U Benzodiazepines Scrn Urine Cocaine Screen U Marijuana (THC) Screen COVID-19 (ANA) COVID-19 Clin [facility] 11/18/20 11/18/20 11/18/20 08:54 08:54 08:54 WBC RBC Hgb Hct MCV MCH MCHC RDW Plt Count MPV Immature Gran % (Auto) Neut % (Auto) Lymph % (Auto) Garden % (Auto) Eos % (Auto) Baso % (Auto) Lymph # (Auto) Garden # (Auto) Eos # (Auto) Baso # (Auto) Abs Immat Gran (auto) Absolute Neuts (auto) Absolute Nucleated RBC Nucleated RBC % (auto) PT INR APTT O2 Saturation ABG pH at Pt Temp ABG pH (Temp Correct) ABG pCO2 at Pt Temp ABG pCO2 (Temp Corrct ABG pO2 at Pt Temp ABG pO2 (Temp Correct ABG HCO3 ABG Base Excess (Actual) VBG pH VBG pCO2 VBG pO2 VBG HCO3 VBG O2 Saturation VBG Base Excess Sodium 134 L Potassium 4.0 Chloride 92 L Carbon Dioxide 35 H Anion Gap 11 L BUN 6 L D Creatinine 0.69 Estim Creat Clear Calc 97.2 Estimated GFR > 60 POC Glucose Random Glucose 114 D Lactic Acid Calcium 8.0 L Magnesium 1.8 Total Bilirubin 0.4 Direct Bilirubin 0.2 AST 13 ALT < 6 Alkaline Phosphatase 87 D Ammonia Troponin I High Sens 7.6 D B-Natriuretic Peptide Total Protein 6.1 L Albumin 3.0 L Lipase 12 Urine Color Urine Appearance Urine pH Ur Specific [place]ena Urine Protein Urine Glucose (UA) Urine Ketones Urine Blood Urine Nitrite Ur Leukocyte Esterase Urine RBC Urine WBC Ur Squamous Epith Cells Urine Bacteria Hyaline Casts Urine Mucus Urine Opiates Screen Acetaminophen Ur Barbiturates Screen Valproic Acid 77.2 Ur Phencyclidine Scrn Ur Amphetamines Screen U Benzodiazepines Scrn Urine Cocaine Screen U Marijuana (THC) Screen COVID-19 (ANA) COVID-19 Clin Com 11/18/20 11/18/20 11/18/20 08:55 08:55 08:55 WBC RBC Hgb Hct MCV MCH MCHC RDW Plt Count MPV Immature Gran % (Auto) Neut % (Auto) Lymph % (Auto) Garden % (Auto) Eos % (Auto) Baso % (Auto) Lymph # (Auto) Garden # (Auto) Eos # (Auto) Baso # (Auto) Abs Immat Gran (auto) Absolute Neuts (auto) Absolute Nucleated RBC Nucleated RBC % (auto) PT 14.3 H INR 1.2 H APTT 40.0 H O2 Saturation ABG pH at Pt Temp ABG pH (Temp Correct) ABG pCO2 at Pt Temp ABG pCO2 (Temp Corrct ABG pO2 at Pt Temp ABG pO2 (Temp Correct ABG HCO3 ABG Base Excess (Actual) VBG pH VBG pCO2 VBG pO2 VBG HCO3 VBG O2 Saturation VBG Base Excess Sodium Potassium Chloride Carbon Dioxide Anion Gap BUN Creatinine Estim Creat Clear Calc Estimated GFR POC Glucose Random Glucose Lactic Acid Calcium Magnesium Total Bilirubin Direct Bilirubin AST ALT Alkaline Phosphatase Ammonia 59 H Troponin I High Sens B-Natriuretic Peptide 213 H Total Protein Albumin Lipase Urine Color Urine Appearance Urine pH Ur Specific [place]bena Urine Protein Urine Glucose (UA) Urine Ketones Urine Blood Urine Nitrite Ur Leukocyte Esterase Urine RBC Urine WBC Ur Squamous Epith Cells Urine Bacteria Hyaline Casts Urine Mucus Urine Opiates Screen Acetaminophen Ur Barbiturates Screen Valproic Acid Ur Phencyclidine Scrn Ur Amphetamines Screen U Benzodiazepines Scrn Urine Cocaine Screen U Marijuana (THC) Screen COVID-19 (ANA) COVID-19 Clin Com 11/18/20 11/18/20 11/18/20 08:55 08:58 08:58 WBC RBC Hgb Hct MCV MCH MCHC RDW Plt Count MPV Immature Gran % (Auto) Neut % (Auto) Lymph % (Auto) Garden % (Auto) Eos % (Auto) Baso % (Auto) Lymph # (Auto) Garden # (Auto) Eos # (Auto) Baso # (Auto) Abs Immat Gran (auto) Absolute Neuts (auto) Absolute Nucleated RBC Nucleated RBC % (auto) PT INR APTT O2 Saturation ABG pH at Pt Temp ABG pH (Temp Correct) ABG pCO2 at Pt Temp ABG pCO2 (Temp Corrct ABG pO2 at Pt Temp ABG pO2 (Temp Correct ABG HCO3 ABG Base Excess (Actual) VBG pH VBG pCO2 VBG pO2 VBG HCO3 VBG O2 Saturation VBG Base Excess Sodium Potassium Chloride Carbon Dioxide Anion Gap BUN Creatinine Estim Creat Clear Calc Estimated GFR POC Glucose Random Glucose Lactic Acid 0.9 Calcium Magnesium Total Bilirubin Direct Bilirubin AST ALT Alkaline Phosphatase Ammonia Troponin I High Sens B-Natriuretic Peptide Total Protein Albumin Lipase Urine Color YELLOW Urine Appearance HAZY Urine pH 6.0 Ur Specific Verbena 1.025 Urine Protein 2+ H Urine Glucose (UA) NEG Urine Ketones NEG Urine Blood NEG Urine Nitrite NEG Ur Leukocyte Esterase NEG Urine RBC 1-4 Urine WBC 1-4 Ur Squamous Epith Cells NONE Urine Bacteria NONE Hyaline Casts 10-14 Urine Mucus 3+ Urine Opiates Screen Acetaminophen Ur Barbiturates Screen Valproic Acid Ur Phencyclidine Scrn Ur Amphetamines Screen U Benzodiazepines Scrn Urine Cocaine Screen U Marijuana (THC) Screen COVID-19 (ANA) Negative COVID-19 Clin Com See Note 11/18/20 11/18/20 11/18/20 08:58 11:09 17:15 WBC RBC Hgb Hct MCV MCH MCHC RDW Plt Count MPV Immature Gran % (Auto) Neut % (Auto) Lymph % (Auto) Garden % (Auto) Eos % (Auto) Baso % (Auto) Lymph # (Auto) Garden # (Auto) Eos # (Auto) Baso # (Auto) Abs Immat Gran (auto) Absolute Neuts (auto) Absolute Nucleated RBC Nucleated RBC % (auto) PT INR APTT O2 Saturation ABG pH at Pt Temp ABG pH (Temp Correct) ABG pCO2 at Pt Temp ABG pCO2 (Temp Corrct ABG pO2 at Pt Temp ABG pO2 (Temp Correct ABG HCO3 ABG Base Excess (Actual) VBG pH 7.38 7.33 VBG pCO2 54 77 VBG pO2 116 47 VBG HCO3 32 H 41 H VBG O2 Saturation 99.0 73.0 VBG Base Excess 6.2 12.6 Sodium Potassium Chloride Carbon Dioxide Anion Gap BUN Creatinine Estim Creat Clear Calc Estimated GFR POC Glucose Random Glucose Lactic Acid Calcium Magnesium Total Bilirubin Direct Bilirubin AST ALT Alkaline Phosphatase Ammonia Troponin I High Sens B-Natriuretic Peptide Total Protein Albumin Lipase Urine Color Urine Appearance Urine pH Ur Specific Verbena Urine Protein Urine Glucose (UA) Urine Ketones Urine Blood Urine Nitrite Ur Leukocyte Esterase Urine RBC Urine WBC Ur Squamous Epith Cells Urine Bacteria Hyaline Casts Urine Mucus Urine Opiates Screen POSITIVE H Acetaminophen Ur Barbiturates Screen Not Detected Valproic Acid Ur Phencyclidine Scrn Not Detected Ur Amphetamines Screen Not Detected U Benzodiazepines Scrn Not Detected Urine Cocaine Screen Not Detected U Marijuana (THC) Screen Not Detected COVID-19 (ANA) COVID-19 Clin [facility] 11/18/20 11/18/20 11/18/20 17:16 21:12 22:49 WBC RBC Hgb Hct MCV MCH MCHC RDW Plt Count MPV Immature Gran % (Auto) Neut % (Auto) Lymph % (Auto) Garden % (Auto) Eos % (Auto) Baso % (Auto) Lymph # (Auto) Garden # (Auto) Eos # (Auto) Baso # (Auto) Abs Immat Gran (auto) Absolute Neuts (auto) Absolute Nucleated RBC Nucleated RBC % (auto) PT INR APTT O2 Saturation ABG pH at Pt Temp ABG pH (Temp Correct) ABG pCO2 at Pt Temp ABG pCO2 (Temp Corrct ABG pO2 at Pt Temp ABG pO2 (Temp Correct ABG HCO3 ABG Base Excess (Actual) VBG pH 7.35 7.47 H VBG pCO2 76 54 VBG pO2 37 55 VBG HCO3 43 H 40 H VBG O2 Saturation 58.0 86.0 VBG Base Excess 14.4 14.9 Sodium Potassium Chloride Carbon Dioxide Anion Gap BUN Creatinine Estim Creat Clear Calc Estimated GFR POC Glucose Random Glucose Lactic Acid Calcium Magnesium Total Bilirubin Direct Bilirubin AST ALT Alkaline Phosphatase Ammonia Troponin I High Sens B-Natriuretic Peptide Total Protein Albumin Lipase Urine Color Urine Appearance Urine pH Ur Specific Verbena Urine Protein Urine Glucose (UA) Urine Ketones Urine Blood Urine Nitrite Ur Leukocyte Esterase Urine RBC Urine WBC Ur Squamous Epith Cells Urine Bacteria Hyaline Casts Urine Mucus Urine Opiates Screen Acetaminophen < 1 Ur Barbiturates Screen Valproic Acid Ur Phencyclidine Scrn Ur Amphetamines Screen U Benzodiazepines Scrn Urine Cocaine Screen U Marijuana (THC) Screen COVID-19 (ANA) COVID-19 Clin Com 11/19/20 05:24 WBC RBC Hgb Hct MCV MCH MCHC RDW Plt Count MPV Immature Gran % (Auto) Neut % (Auto) Lymph % (Auto) Garden % (Auto) Eos % (Auto) Baso % (Auto) Lymph # (Auto) Garden # (Auto) Eos # (Auto) Baso # (Auto) Abs Immat Gran (auto) Absolute Neuts (auto) Absolute Nucleated RBC Nucleated RBC % (auto) PT INR APTT O2 Saturation ABG pH at Pt Temp ABG pH (Temp Correct) ABG pCO2 at Pt Temp ABG pCO2 (Temp Corrct ABG pO2 at Pt Temp ABG pO2 (Temp Correct ABG HCO3 ABG Base Excess (Actual) VBG pH 7.58 H VBG pCO2 39 VBG pO2 45 VBG HCO3 37 H VBG O2 Saturation 82.0 VBG Base Excess 14.4 Sodium Potassium Chloride Carbon Dioxide Anion Gap BUN Creatinine Estim Creat Clear Calc Estimated GFR POC Glucose Random Glucose Lactic Acid Calcium Magnesium Total Bilirubin Direct Bilirubin AST ALT Alkaline Phosphatase Ammonia Troponin I High Sens B-Natriuretic Peptide Total Protein Albumin Lipase Urine Color Urine Appearance Urine pH Ur Specific [place]bena Urine Protein Urine Glucose (UA) Urine Ketones Urine Blood Urine Nitrite Ur Leukocyte Esterase Urine RBC Urine WBC Ur Squamous Epith Cells Urine Bacteria Hyaline Casts Urine Mucus Urine Opiates Screen Acetaminophen Ur Barbiturates Screen Valproic Acid Ur Phencyclidine Scrn Ur Amphetamines Screen U Benzodiazepines Scrn Urine Cocaine Screen U Marijuana (THC) Screen COVID-19 (ANA) COVID-19 Clin Com Progress Note: A&P Assessment and plan (1) Acute alteration in mental status: Status: Acute (2) Atrial fibrillation with RVR: Status: Acute (3) Acute respiratory failure with hypoxia and hypercarbia: Status: Acute (4) Polysubstance (including opioids) dependence, binge pattern: Status: Acute (5) Hypoxia: Status: Acute (6) Atrial fibrillation with rapid ventricular response: Status: Acute Assessment and Plan: So she now off the BiPAP has resolved acute hypercarbic respiratory failure with religion of mental status and has controlled atrial flutter on IV Cardizem which we will convert oral and we will just keep her on DVT prophylaxis with heparin and restore her nocturnal CPAP for the sleep apnea and she will stay in the hospital until General surgery takes her to the OR for colon resection due to adenocarcinoma Quality Stroke Does the patient have a stroke diagnosis?: No Reason for No Anti-thrombotic by Day Two: N/A - Med Ordered VTE Prior VTE?: No VTE Risk Level:: Medical - low VTE Device Contraindication: N/A - Device Ordered VTE Drug Contraindication: N/A - Med Ordered
[2020-11-19] MEDS: Metoprolol Tartrate 25 MG TABLET PO ×2 (08:38→21:44)
[2020-11-19] MEDS: Nystatin Powder 15 GM BOTTLE 1 APPL TOPICAL (08:51)
--- NOTE | 2020-11-19 08:51 | MHC.CLN ---
RECOMMEND 2GM NA DIET R/T HX CHF/CAD
[2020-11-19 09:45] LABS: MANUAL DIFF FLAG NO
[2020-11-19 09:46] LABS: Basophils Percent Auto 0.1 % (0-2); Eosinophils Percent Auto 0.1 % (0-4); Hemoglobin 8.8 g/dl (12.0-16.0); Imm Gran Abs Auto 0.07 X10*3/uL (0.00-0.03); Imm Gran Pct Auto 0.5 % (0.0-0.4); Lymphocytes Absolute Auto 0.8 X10*3/uL (1.2-4.9); Lymphocytes Percent Auto 5.1 % (20-40); Mean Corpuscular HGB Conc 28.4 g/dl (31.0-35.0); Mean Corpuscular Volume 91.7 fL (80-98); Mean Platelet Volume 9.1 fL (9.4-12.3); Monocytes Absolute Auto 1.2 X10*3/uL (0.1-1.2); Monocytes Percent Auto 7.9 % (2-11); NRBC Pct Auto 0.2 /100WBC (0.0-0.2); Neutrophils Absolute Auto 12.7 X10*3/uL (2.0-8.3); Neutrophils Percent Auto 86.3 % (45-73); Platelet Count 342 X10*3/uL (160-400); Red Blood Count 3.38 X10*6/uL (4.20-5.50); Red Cell Distribution Width 18.6 % (11.0-16.0); White Blood Count 14.7 X10*3/uL (4.8-10.8)
[2020-11-19 09:55] LABS: INTERNATIONAL NORM RATIO 1.1 (0.9-1.1); Prothrombin Time 13.3 SEC (10.8-13.0)
[2020-11-19 09:57] LABS: Partial Thromboplastin Time 31.5 SEC (24.1-38.0)
[2020-11-19] MEDS: dilTIAZem HCL 60 MG TABLET PO ×4 (10:07→21:44)
[2020-11-19 10:17] LABS: Anion Gap 15 (12-20); Blood Urea Nitrogen 8 mg/dL (9-16); Calcium 8.6 mg/dL (8.4-10.2); Carbon Dioxide 32 mmol/L (22-29); Chloride 97 mmol/L (96-108); Creatinine Clr Calc Pharmacy 97.2; Estimated Glomerular Filt Rate > 60; Glucose Random 138 mg/dL (60-115); Phosphorus 3.4 mg/dL (2.7-4.5); Potassium 4.1 mmol/L (3.3-5.1); Sodium 140 mmol/L (135-145)
--- NOTE | 2020-11-19 13:59 | MHC.CM.PN ---
Met with pt to discuss d/c planning: Pt known to CM from prior admissions: states she resides with spouse and is active with [facility]. She uses a cane and spouse assists as needed. A family friend has been assisting pt with transportation and will be able to transport her home. Pt has meds delivered by [facility] and states she is on a narcotic reduction plan with her PCP. I only take 2 Percocet a day now . She also notes her Klonopin was recently discontinued. Re-referred to [facility] for continuation of services. No additional services anticipated. IMM signed and in chart
[2020-11-19] MEDS: Dextrose 5 % and 0.9 % NaCl 1,000 ML 40 ML IVCONT (14:07)
--- NOTE | 2020-11-19 16:33 | PM.EVENT ---
Event Note Date of Service: 11/19/20 Event Note: Patient seems more comfortable Denies any complaints Still with a little bit of shortness breath but this apparently may be her baseline Seems have worsening tremors Abdomen remains soft Colon resection yesterday was canceled in view of shortness of breath, confusion Patient not in overt failure as per rail loader Will need to really discuss with anesthesiology about rescheduling in view of concerns about [place] anesthesia risks Have discussed this with the patient
--- NOTE | 2020-11-19 18:33 | PC.NURSE ---
Pt A&Ox4 baseline tremors apparent, x1 assist with ambulation. No pain, titrated down to baseline O2 of 2L/min SaO2 92%. Aflutter 3:1-4:1, off diltiazem drip since 809, getting PO cardizem QID 60mg and 25mg metoprolol PO BID, HR aflutter 90-110 with stable BP 130/x. Doty removed, voiding fine after removal. X4 green BM today. Bed locked and in lowest position. Call manley in reach. Waiting to given [facility] nurse report. Put back on heparin for DVTp.
[2020-11-19] MEDS: Acetaminophen 325 MG TABLET 650 MG PO (21:51)
[2020-11-19] MEDS: hydrOXYzine HCL 50 MG TABLET PO (23:01)
[2020-11-20] VITALS (9 sets, daily range): BP systolic 108–172; BP diastolic 71–83; PULSE 73–87; RESP 18–29; TEMP 36.2–36.6; O2SAT 90–96; BMI 34.1
[2020-11-20] MEDS: Dextrose 5 % and 0.9 % NaCl 1,000 ML 40 ML IVCONT (01:33)
--- NOTE | 2020-11-20 01:43 | PC.NURSE ---
Pt refusing CPAP due to feeling anxious/claustrophobic. Satting 95% on 2.5L NC. Will continue to monitor.
[2020-11-20] MEDS: Pantoprazole Sodium 40 MG/10 ML VIAL IVPUSH (05:28)
[2020-11-20] MEDS: hydrOXYzine HCL 50 MG TABLET PO (05:28)
[2020-11-20] MEDS: Heparin Sodium,Porcine 5,000 UNIT/ML VIAL 5000 UNIT SUBCUT (05:28)
[2020-11-20] MEDS: Albuterol/Iprat 2.5/0.5MG 3 ML AMPUL.NEB INHALE ×2 (05:36→10:53)
[2020-11-20 06:36] LABS: Venous Blood Gas Refer to POC result
[2020-11-20 06:40] LABS: VBG Base Excess 13.7 mmol/L; VBG HCO3 40 mmol/L (22-26); VBG pCO2 60 mmHg; VBG pH 7.43 (7.32-7.43); VBG pO2 86 mmHg
[2020-11-20 06:57] LABS: Basophils Percent Auto 0.1 % (0-2); Hematocrit 35.2 % (37-47); Hemoglobin 9.8 g/dl (12.0-16.0); INTERNATIONAL NORM RATIO 1.1 (0.9-1.1); Imm Gran Abs Auto 0.05 X10*3/uL (0.00-0.03); Imm Gran Pct Auto 0.4 % (0.0-0.4); Lymphocytes Absolute Auto 2.1 X10*3/uL (1.2-4.9); Lymphocytes Percent Auto 17.2 % (20-40); MANUAL DIFF FLAG SCAN; Mean Corpuscular HGB Conc 27.8 g/dl (31.0-35.0); Mean Corpuscular Hemoglobin 25.8 pg (27.0-33.0); Mean Corpuscular Volume 92.6 fL (80-98); Monocytes Absolute Auto 1.3 X10*3/uL (0.1-1.2); Monocytes Percent Auto 10.7 % (2-11); NRBC Pct Auto 0.3 /100WBC (0.0-0.2); Neutrophils Absolute Auto 8.9 X10*3/uL (2.0-8.3); Neutrophils Percent Auto 71.6 % (45-73); PLT CLUMP 1; Prothrombin Time 12.6 SEC (10.8-13.0); Red Cell Distribution Width 18.6 % (11.0-16.0); SCAN SMEAR FLAG 1
[2020-11-20 07:00] LABS: Partial Thromboplastin Time 24.9 SEC (24.1-38.0)
[2020-11-20 07:17] LABS: Anion Gap 16 (12-20); Blood Urea Nitrogen 7 mg/dL (9-16); Calcium 8.8 mg/dL (8.4-10.2); Carbon Dioxide 32 mmol/L (22-29); Chloride 97 mmol/L (96-108); Creatinine Clr Calc Pharmacy 108.9; Estimated Glomerular Filt Rate > 60; Glucose Random 90 mg/dL (60-115); Magnesium 1.4 mg/dL (1.6-2.6); Phosphorus 2.9 mg/dL (2.7-4.5); Potassium 4.3 mmol/L (3.3-5.1); Sodium 141 mmol/L (135-145)
[2020-11-20 07:42] LABS: White Blood Count 12.4 X10*3/uL (4.8-10.8)
[2020-11-20 07:45] LABS: SLIDE REVIEW VERIFIED
[2020-11-20] MEDS: Magnesium Sulfate/H2O 2 GM/50 ML PIGGYBACK IV (08:45)
[2020-11-20] MEDS: Metoprolol Tartrate 25 MG TABLET PO (08:46)
[2020-11-20] MEDS: dilTIAZem HCL 60 MG TABLET PO ×2 (08:46→13:58)
[2020-11-20] MEDS: Nystatin Powder 15 GM BOTTLE 1 APPL TOPICAL (09:02)
[2020-11-20] MEDS: Acetaminophen 325 MG TABLET 650 MG PO (11:44)
--- NOTE | 2020-11-20 12:09 | P.DS_ITS ---
DS: Providers Provider Date of Service: 11/20/20 Date of admission: 11/18/20 12:09 Primary care physician: Cassandra Oconnor MD Consults: 11/19/20 17:10 Consult to Cardiology Routine Consulting Provider: Mickey Wayne Reason for consultation: afib rvr; surgical pre op Has provider been notified: No 11/19/20 20:46 Consult Respiratory Therapy Routine Reason for consultation: CPAP DS: Diagnosis Discharge Diagnosis (1) Acute alteration in mental status: Status: Acute (2) Atrial fibrillation with RVR: Status: Acute (3) Acute respiratory failure with hypoxia and hypercarbia: Status: Acute (4) Polysubstance (including opioids) dependence, binge pattern: Status: Acute (5) Hypoxia: Status: Acute (6) Atrial fibrillation with rapid ventricular response: Status: Acute DS: Medications Discharge Medications Home Medications: Home Medications Medication Instructions Recorded Confirmed amitriptyline 25 mg PO BEDTIME 04/21/20 11/18/20 divalproex 500 mg PO QAM 04/21/20 11/18/20 duloxetine 60 mg PO BEDTIME 04/21/20 11/18/20 omeprazole 20 mg PO BID 04/21/20 11/18/20 Breo Ellipta 1 inh INHALATION DAILY 05/26/20 11/18/20 Incruse Ellipta 1 inh INHALATION DAILY 05/26/20 11/18/20 hydralazine 50 mg PO TID 05/26/20 11/18/20 metoprolol succinate 50 mg PO DAILY 05/26/20 11/18/20 atorvastatin 20 mg PO BEDTIME 07/03/20 11/18/20 divalproex 1,000 mg PO QPM 09/10/20 11/18/20 ferrous sulfate 1 tab PO BID 09/10/20 11/18/20 blood pressure monitor #1 ea 10/22/20 10/22/20 blood pressure test kit-large #1 ea 10/22/20 10/22/20 ondansetron HCl [Zofran] 4 mg PO Q6H PRN 10/22/20 11/18/20 apixaban [Eliquis] 5 mg PO BID 11/18/20 11/18/20 clonazepam 1 tab PO TID PRN 11/18/20 11/18/20 oxycodone-acetaminophen 1 tab PO 5XD PRN 11/18/20 11/18/20 Previous Rx's Medication Instructions Recorded albuterol sulfate 2 puff INHALATION Q4-6H PRN #8.5 g 04/30/20 diltiazem HCl [Cardizem CD] 240 mg PO DAILY #60 cap 11/02/20 tramadol 50 mg PO Q8H PRN #20 tab 11/02/20 magnesium oxide 400 mg PO BID #14 cap 11/11/20 erythromycin 500 mg tablet 500 mg PO .COMPLEX #6 tab 11/16/20 neomycin 500 mg tablet 1 g PO .COMPLEX #6 tab 11/16/20 DS: Summary Hospital Course Hospital Course: 55-year-old female with past medical history of acute on chronic respiratory failure on baseline 2.5 L of oxygen, CHF, bipolar disorder, CAD, depression, fibromyalgia, HLD, HTN, hypoventilation associated with obesity, Left lower lobe poorly differentiated carcinoma with LLL lobectomy and mediastinal lymphadenectomy on 09/01/[address] Cota at [facility], she also has a hx of sigmoid colon adenocarcinoma with colonoscopy on 08/06/2020, patient was referred to Dr Wray and was supposed to have surgery on October 26 but was not well and procedure rescheduled for November 30., the surgery has not taken place yet, according to the medical records. Of note, pt is on opioids 2 x daily for chronic back pain and also is on Klonopin. She was treated with Narca and was admitted throgh the ICU and treated with BiPAP overnight with improvement--of note she had similar episode earlier during the month and was advised to take Tramadol for pain and Not oxycodone but apparently went back to take those meds. Labs revealed an elevated WBC at 16.9, ABG revealed respiratory acidosis at 7.27//70 47/30 to with a base excess of 3.9, slight hyponatremia at 130 to, hypochloremia at 91 and bicarb at 30. BNP 267, tox screen was positive for opiates, will continue home inhalers including Breo Ellipta and change DuoNeb to Xopenex as needed Acute hypoxic and hypercarbic respiratory failure due to narcotic use--Treated with BIPAP and bronchodilator and has since been doing well. She will continue home O2, and BiPAP at night, should avoid Narcotics and or use sparingly for pain. Acute encephalopathy due to narcotic use resolved- Advice To abstain from high- dose narcotics patient primary care physician is switching her from Percocet to tramadol advised only to use tramadol for severe back pain New onset of ATrial Fibrialation that was associated RVR and palpiation--There is no record that she has history of AFIB. She was treated initially with IV cardizem and has since been transitioned to Oral Coreg at 6.25 bid and Cardizem 60 QID and this will be converted to long acting Crdizem 240 and to continue Metoprolol at home. CHADS2 Vasc is 3, will start Eliquis 5 bid, this will need to be stop before surgery Hypertension--To continue Hydralazine, Cardizem and Metoprolol as above. History of Colon Cancer--Surgery is planed for 11/[address] Wray History of COPD no acute exacerbation Adeno carcinoma sigmoid colon follow-up with general surgery for resection Above [facility] was completed by Dr. Montez, patient is doing well today, she is fully alert and oriented and we talked about her avoiding Narcotics and Klonopin and may take Tramadol for pain. Will continue all other meds, her BP med were changed to short acting Metoprolo and cardizm but will resume these on outpatient basis. Dr. Weiss will arrange for surgery to be done maybe at [facility].. Should hold Eliquis per direction before surgery. Time Spent with Patient Time attestation: Total time spent providing and/or coordinating discharge services: Discharge coordination time: Greater than 30 minutes Quality: Stroke Does the patient have a stroke diagnosis?: No Physical Exam Vital Signs: Vital Signs: Last Vital Signs Temp 97.1 F 11/20/20 11:12 Pulse 83 11/20/20 11:12 Resp 19 11/20/20 11:12 BP 108/71 11/20/20 11:12 Pulse Ox 90 L 11/20/20 11:12 Oxygen Flow Rate 30 11/18/20 12:09 Body Mass Index 34.1 Const: Other: Constitutional Awake and Alert, No apparent distress Neck Supple, No lymphadenopathy Cardiovascular RRR, No M/R/G, S1 S2, No S3 S4, No pedal edema Respiratory Lungs clear, No respiratory distress Gastrointestinal Non tender, Non-distended Skin No rash Neurological Alert & oriented x3 Psychological Appropriate affect DS: Data Data Completed and Pending Completed studies during hospitalization [Text1]: Procedures Assistance with Respiratory Ventilation, Less than 24 Consecutive Hours, Continuous Positive Airway Pressure (10/29/20) Excision of Left Lower Lung Lobe, Percutaneous Approach, Diagnostic (07/03/20) Labs on day of discharge: Laboratory Results - last 24 hr 11/20/20 11/20/20 11/20/20 06:25 06:25 06:25 WBC 12.4 H RBC 3.80 L Hgb 9.8 L Hct 35.2 L MCV 92.6 MCH 25.8 L MCHC 27.8 L RDW 18.6 H Plt Count TNP MPV Not Reportable Immature Gran % (Auto) 0.4 Neut % (Auto) 71.6 Lymph % (Auto) 17.2 L [place] % (Auto) 10.7 Eos % (Auto) 0.0 Baso % (Auto) 0.1 Lymph # (Auto) 2.1 [place] # (Auto) 1.3 H Eos # (Auto) 0.0 Baso # (Auto) 0.0 Abs Immat Gran (auto) 0.05 H Absolute Neuts (auto) 8.9 H Absolute Nucleated RBC 0.040 H Nucleated RBC % (auto) 0.3 H Smear Tech's Comments VERIFIED PT 12.6 INR 1.1 APTT 24.9 D VBG pH VBG pCO2 VBG pO2 VBG HCO3 VBG O2 Saturation VBG Base Excess Sodium 141 Potassium 4.3 Chloride 97 Carbon Dioxide 32 H Anion Gap 16 BUN 7 L Creatinine 0.62 Estim Creat Clear Calc 108.9 Estimated GFR > 60 Random Glucose 90 Calcium 8.8 Phosphorus 2.9 Magnesium 1.4 L* 11/20/20 06:32 WBC RBC Hgb Hct MCV MCH MCHC RDW Plt Count MPV Immature Gran % (Auto) Neut % (Auto) Lymph % (Auto) [place] % (Auto) Eos % (Auto) Baso % (Auto) Lymph # (Auto) [place] # (Auto) Eos # (Auto) Baso # (Auto) Abs Immat Gran (auto) Absolute Neuts (auto) Absolute Nucleated RBC Nucleated RBC % (auto) Smear Tech's Comments PT INR APTT VBG pH 7.43 VBG pCO2 60 VBG pO2 86 VBG HCO3 40 H VBG O2 Saturation 96.0 VBG Base Excess 13.7 Sodium Potassium Chloride Carbon Dioxide Anion Gap BUN Creatinine Estim Creat Clear Calc Estimated GFR Random Glucose Calcium Phosphorus Magnesium Preliminary micro results at discharge 11/18/20 08:58 Blood Culture - Preliminary Blood - Venous No growth after 48 hours. 11/18/20 08:54 Blood Culture - Preliminary Blood - Venous No growth after 48 hours. Discharge Plan Discharge Anticipated Discharge Date/Time: 11/20/20 11:43 Patient Disposition: Home, Self-Care Discharge Diagnosis: Opioid overdose Referrals: Lisa OLIVARES [Outside] - 1 Week Cassandra Oconnor MD [Primary Care Provider] - 1 Week Discharge Medications: Continued magnesium oxide 400 mg magnesium capsule 400 mg PO BID Qty: 14 RF: 0 erythromycin 500 mg tablet 500 mg PO .COMPLEX Qty: 6 RF: 0 neomycin 500 mg tablet 1 g PO .COMPLEX Qty: 6 RF: 0 amitriptyline 25 mg tablet 25 mg PO BEDTIME RF: 0 divalproex 500 mg tablet extended release 24 hr 500 mg PO QAM RF: 0 omeprazole 20 mg capsule,delayed release(DR/EC) 20 mg PO BID RF: 0 duloxetine 60 mg capsule,delayed release(DR/EC) 60 mg PO BEDTIME RF: 0 albuterol sulfate 90 mcg/actuation HFA aerosol inhaler 2 puff inhalation Q4-6H PRN (Reason: shortness of breath or wheezing) Qty: 8.5 RF: 0 metoprolol succinate 50 mg Tablet Extended Release 24 Hr 50 mg PO DAILY RF: 0 Breo Ellipta 100-25 mcg/dose Blister With Device 1 inh INHALATION DAILY RF: 0 Incruse Ellipta 62.5 mcg/actuation Blister With Device 1 inh INHALATION DAILY RF: 0 ondansetron HCl [Zofran] 4 mg tablet 4 mg PO Q6H PRN (Reason: Nausea) RF: 0 Eliquis 5 mg tablet 5 mg PO BID RF: 0 diltiazem HCl [Cardizem CD] 240 mg capsule,extended release 24hr 240 mg PO DAILY Qty: 60 RF: 0 tramadol 50 mg Tablet 50 mg PO Q8H PRN (Reason: Pain, Severe (Pain Scale 7-10)) Qty: 20 RF: 0 atorvastatin 20 mg Tablet 20 mg PO BEDTIME RF: 0 ferrous sulfate 325 mg (65 mg iron) tablet 1 tab PO BID RF: 0 divalproex 500 mg tablet extended release 24 hr 1,000 mg PO QPM RF: 0 Discontinued hydralazine 50 mg Tablet 50 mg PO TID RF: 0 clonazepam 0.5 mg tablet 1 tab PO TID PRN (Reason: anxiety) RF: 0 oxycodone-acetaminophen 10-325 mg tablet 1 tab PO 5XD PRN (Reason: pain) RF: 0 No Action (DME) blood pressure test kit-large Kit See Rx Instructions ea .ROUTE DIRECTED Qty: 1 RF: 0 (DME) blood pressure monitor Kit See Rx Instructions .ROUTE .MEDSUPPLY Qty: 1 RF: 0 Discharge Orders: Discharge Order (Routine); Ordered 11/20/20 Ordered By: [place] Diet: advance to usual diet Activity on Discharge: No Running or jogging Stand Alone Forms: Patient Portal Discharge page Care Plan Goals: To avoid rehospitalization Health Concerns: frequent opioid overdose Plan of Treatment: Avoid klonopin and oxycodone Assessment: See above Discharge Date/Time: 11/20/20 15:00
--- NOTE | 2020-11-20 12:18 | P.CONCA_ITS ---
History of Present Illness History of Present Illness Date of Service: 11/20/20 Consult reason: atrial fibrillation Chief complaint: altered mental status Narrative: This is a cardiology consultation regarding atrial fibrillation. Patient is known to us and we have seen her recently for preoperative evaluation for colon cancer surgery. She has multiple medical comorbidities, specifically COPD on home oxygen and chronic respiratory failure. She also has a history of lung cancer for which she underwent lobectomy few months back. From a cardiac standpoint, no known coronary disease. She was admitted for acute hypoxic and hypercarbic respiratory failure due to narcotics and treated with BiPAP and bronchodilators. In this context she had some atrial fibrillation as well. Now however she is back in normal sinus rhythm. She indeed had atrial fibrillation recently during a prior admission for respiratory issues. Otherwise she does not really have any specific cardiac complaints like angina. Chronic shortness of breath related to her pulmonary issues. Review of Systems Review of Systems: Yes all other systems are reviewed and are negative Cardiovascular: Cardiovascular: Reports as per HPI, Reports no additional cardiovascular complaints, Denies acrocyanosis, Denies cool extremities, Denies painful fingertips, Denies chest pain, Denies chest pain at rest, Denies diaphoresis, Denies syncope, Denies irregular heart rhythm, Denies claudication, Denies leg edema, Denies lightheadedness, Denies palpitations and Reports dyspnea Respiratory: Respiratory: Reports dyspnea Neurologic: Denies syncope Endocrine: Endocrine: Denies palpitations [facility]LY [facility] Past Medical History Medical History Abnormal PET scan of colon Acute and chronic respiratory failure Acute on chronic diastolic CHF (congestive heart failure) Adenocarcinoma of sigmoid colon Atrial flutter with rapid ventricular response Back pain with history of spinal surgery Bilateral pneumonia Bipolar 1 disorder Bipolar disorder CAD (coronary artery disease) Cancer of lower lobe of left lung CHF exacerbation Chronic back pain Colon cancer Congestive heart failure COPD (chronic obstructive pulmonary disease) COPD (chronic obstructive pulmonary disease) COPD (chronic obstructive pulmonary disease) COVID-19 vaccine series completed Depression Essential hypertension Fibromyalgia GERD (gastroesophageal reflux disease) GI bleed High cholesterol History of COVID-19 HTN (hypertension) Hypernatremia Hypoventilation associated with obesity Hypoxia Lethargy Lung cancer Lung mass Mass of colon No natural teeth Obesity Obesity hypoventilation syndrome Opacity of lung on imaging study IVY (obstructive sleep apnea) Other and unspecified hyperlipidemia Oxygen dependent Pleural effusion, left Preoperative cardiovascular examination PTSD (post-traumatic stress disorder) Renal failure Respiratory failure with hypoxia and hypercapnia Respiratory failure with hypoxia and hypercapnia Restless legs syndrome (RLS) Restrictive lung disease Rotator cuff strain Sleep disorder Smoker UTI (urinary tract infection) Family History Family History Maternal Aunt Breast cancer Stroke COPD (chronic obstructive pulmonary disease) Maternal Aunt Breast cancer COPD (chronic obstructive pulmonary disease) Mother Uterine cancer COPD (chronic obstructive pulmonary disease) HTN (hypertension) Heart disease Maternal Uncle Stroke Paternal Grandmother Heart attack Sister Diabetes IBS (irritable bowel syndrome) Son HTN (hypertension) Daughter HTN (hypertension) Father HTN (hypertension) Brother Heart disease Surgical History Surgical History H/O colonoscopy H/O: hysterectomy History of back surgery History of bunionectomy History of esophagogastroduodenoscopy (EGD) Hx of appendectomy Hx of cholecystectomy Hx of exploratory laparotomy Status post lobectomy of lung Social History Social History Household Members: Spouse Housing: Apartment Are you a primary physician locums urgent care to a significant other at home: No Do you presently have visiting nurse or other home services: Yes Unable to assess alcohol history related to: Unable to respond Patient Tobacco Use Status: Former Tobacco user Cigarettes Per Day: 3 Years Smoked: 40 Patient Given Instructions on How to Stop Smoking: Yes Date Education Initiated: 10/22/20 Second Hand Smoke Exposure: Yes Use of substances other than those prescribed or required for medical reasons: No Have you been hit, kicked, punched, or otherwise hurt by someone within the past year? If so, by whom?: No Are you DNR?: No Advance Directives: No Advance Directives Information Provided: No Advance Directives on File: No Advance Directives Date on File: 05/01/20 Recently lost weight without trying: Yes How much weight loss: 14-23 pounds Eating poorly because of decreased appetite: Yes Nutrition screen score: 5 service: No Current occupational status: unemployed and disabled Meds Allergies Allergy/AdvReac Type Severity Reaction Status Date / Time levofloxacin [From Levaquin] Allergy Severe Diarrhea Verified 10/29/20 16:50 Penicillins Allergy Mild RASH Verified 10/29/20 16:50 venlafaxine [From Effexor] Allergy Mild RASH Verified 10/29/20 16:50 cyclobenzaprine Allergy Unknown UNKNOWN Verified 10/29/20 16:50 [Cyclobenzaprine] fentanyl [FENTANYL] Allergy Unknown HALLUCINATI Verified 10/29/20 16:50 ONS topiramate [From Topamax] Allergy Unknown UNKNOWN Verified 10/29/20 16:50 Sulfa (Sulfonamide AdvReac Severe Diarrhea Verified 10/29/20 16:50 Antibiotics) Active Medications: Current Medications Generic Name Dose Route Start Last Admin Trade Name Freq PRN Reason Stop Dose Admin Acetaminophen 650 mg 11/19/20 21:44 11/20/20 11:44 Acetaminophen 325 Mg Tablet PO 650 mg Q4H PRN Administration Pain, Mild (Pain Scale 1-3) Albuterol/Ipratropium 3 ml 11/18/20 14:00 11/20/20 10:53 Albuterol/Iprat 2.5/0.5mg 3 Ml Ampul.Neb INHALE 3 ml 5XD LONG Administration Diltiazem HCl 60 mg 11/19/20 09:00 11/20/20 08:46 Diltiazem Hcl 60 Mg Tablet PO 60 mg QID LONG Administration Protocol Heparin Sodium (Porcine) 5,000 unit 11/18/20 12:45 11/20/20 05:28 Heparin Sodium,Porcine 5,000 Unit/Ml Vial SUBCUT 5,000 unit Q8H LONG Administration Hydroxyzine HCl 50 mg 11/19/20 22:55 11/20/20 05:28 Hydroxyzine Hcl 50 Mg Tablet PO 50 mg Q6H PRN Administration anxiety/restlessness Dextrose/Sodium Chloride 1,000 mls @ 40 mls/hr 11/18/20 12:15 11/20/20 01:33 D5ns IVCONT 40 mls/hr .Q24H LONG Administration Metoprolol Tartrate 25 mg 11/19/20 09:00 11/20/20 08:46 Metoprolol Tartrate 25 Mg Tablet PO 25 mg BID LONG Administration Protocol Nystatin 1 appl 11/18/20 21:00 11/20/20 09:02 Nystatin Powder 15 Gm Bottle TOPICAL 1 appl BID LONG Administration Protocol Pantoprazole Sodium 40 mg 11/19/20 06:30 11/20/20 05:28 Pantoprazole Sodium 40 Mg/10 Ml Vial IVPUSH 40 mg DAILY@0630 [facility] Administration Pharmacy Consult 1 each 11/18/20 07:57 Consult Rx Perform Med Rec MISCELLANE ONCE PRN Consult order Home Medications Medication Instructions Recorded Confirmed Last Taken Type amitriptyline 25 mg PO BEDTIME 04/21/20 11/18/20 09/08/20 History divalproex 500 mg PO QAM 04/21/20 11/18/20 09/09/20 History duloxetine 60 mg PO BEDTIME 04/21/20 11/18/20 09/08/20 History omeprazole 20 mg PO BID 04/21/20 11/18/20 09/09/20 History Breo Ellipta 1 inh INHALATION DAILY 05/26/20 11/18/20 11/18/20 05:15 History Incruse Ellipta 1 inh INHALATION DAILY 05/26/20 11/18/20 09/09/20 History metoprolol succinate 50 mg PO DAILY 05/26/20 11/18/20 09/09/20 History atorvastatin 20 mg PO BEDTIME 07/03/20 11/18/20 09/08/20 History divalproex 1,000 mg PO QPM 09/10/20 11/18/20 09/08/20 History ferrous sulfate 1 tab PO BID 09/10/20 11/18/20 09/09/20 History blood pressure monitor #1 ea 10/22/20 10/22/20 Unknown History blood pressure test kit-large #1 ea 10/22/20 10/22/20 Unknown History ondansetron HCl [Zofran] 4 mg PO Q6H PRN 10/22/20 11/18/20 Unknown History apixaban [Eliquis] 5 mg PO BID 11/18/20 11/18/20 Unknown History Physical Exam Vital Signs: Vital Signs: Last Vital Signs Temp 97.1 F 11/20/20 11:12 Pulse 83 11/20/20 11:12 Resp 19 11/20/20 11:12 BP 108/71 11/20/20 11:12 Pulse Ox 90 L 11/20/20 11:12 Oxygen Flow Rate 30 11/18/20 12:09 Body Mass Index 34.1 Const: General: cooperative and no acute distress HENMT: Other: Unremarkable Neck: Neck: Yes normal visual inspection Chest: Chest palpation & inspection: normal inspection of the chest Resp: Auscultation: no crackles, no wheezes and diminished lung sounds Cardio: Jugular venous distension: no JVD Palpation: normal PMI Heart sounds: S1 normal heart sound present, S2 normal heart sound present, no gallops, no murmurs and no rubs GI: Palpation (GI): Soft to palpation Back/Spine/Pelvis: Other: unremarkable Skin: General skin exam: no rashes or lesions noted Neuro: Cranial nerves: Yes Other cranial nerve findings present Extrem: General: Yes no clubbing, cyanosis or edema Psych: Mental Status: other Results Labs and Meds Result diagrams: 11/20/20 06:25 11/20/20 06:25 Lab results: Laboratory Results - last 24 hr 11/20/20 11/20/20 11/20/20 06:25 06:25 06:25 WBC 12.4 H RBC 3.80 L Hgb 9.8 L Hct 35.2 L MCV 92.6 MCH 25.8 L MCHC 27.8 L RDW 18.6 H Plt Count TNP MPV Not Reportable Immature Gran % (Auto) 0.4 Neut % (Auto) 71.6 Lymph % (Auto) 17.2 L [place] % (Auto) 10.7 Eos % (Auto) 0.0 Baso % (Auto) 0.1 Lymph # (Auto) 2.1 [place] # (Auto) 1.3 H Eos # (Auto) 0.0 Baso # (Auto) 0.0 Abs Immat Gran (auto) 0.05 H Absolute Neuts (auto) 8.9 H Absolute Nucleated RBC 0.040 H Nucleated RBC % (auto) 0.3 H Smear Tech's Comments VERIFIED PT 12.6 INR 1.1 APTT 24.9 D VBG pH VBG pCO2 VBG pO2 VBG HCO3 VBG O2 Saturation VBG Base Excess Sodium 141 Potassium 4.3 Chloride 97 Carbon Dioxide 32 H Anion Gap 16 BUN 7 L Creatinine 0.62 Estim Creat Clear Calc 108.9 Estimated GFR > 60 Random Glucose 90 Calcium 8.8 Phosphorus 2.9 Magnesium 1.4 L* 11/20/20 06:32 WBC RBC Hgb Hct MCV MCH MCHC RDW Plt Count MPV Immature Gran % (Auto) Neut % (Auto) Lymph % (Auto) [place] % (Auto) Eos % (Auto) Baso % (Auto) Lymph # (Auto) [place] # (Auto) Eos # (Auto) Baso # (Auto) Abs Immat Gran (auto) Absolute Neuts (auto) Absolute Nucleated RBC Nucleated RBC % (auto) Smear Tech's Comments PT INR APTT VBG pH 7.43 VBG pCO2 60 VBG pO2 86 VBG HCO3 40 H VBG O2 Saturation 96.0 VBG Base Excess 13.7 Sodium Potassium Chloride Carbon Dioxide Anion Gap BUN Creatinine Estim Creat Clear Calc Estimated GFR Random Glucose Calcium Phosphorus Magnesium ECG Attestation: I personally reviewed and interpreted this ECG as follows: Interpretation: Admission EKG shows sinus rhythm at 90/Min; no significant ST-T changes. Poor R-wave progression anterior leads likely from her body habitus. Assessment and Plan (1) Acute respiratory failure with hypoxia and hypercarbia: Status: Acute (2) Atrial fibrillation with rapid ventricular response: Status: Acute She did have some atrial fibrillation based on telemetry, but back in normal sinus rhythm. Most likely all related to her respiratory issues. She m ay remain on diltiazem and beta-blockers. Anticoagulation as well. Otherwise, recent echocardiogram showed normal LVEF, 60-65% and mild diastolic dysfunction. Myocardial perfusion imaging study was unremarkable. Abdomen CT showed evidence of peripheral vascular disease in the aorta and iliac vessels with coronary calcification. Overall, at least intermediate risk from cardiac standpoint for her colon surgery but overall high risk considering multiple medical comorbidities. Procedures Date of Service Date of Service: 11/20/20
[2020-11-20] MEDS: Divalproex Sodium 500 MG TABLET.DR PO (13:59)
--- NOTE | 2020-11-20 15:11 | MHC.CM.PN ---
IMM 11/18/20 Female discharged today to home with resumption of [facility]. Patient arranged for her own tranport.
== END 2020-11-20 15:00 | disposition home or self-care (01) | DRG 91 ==
LOC: HO.ED 11:24 → HO.ICU 12:26 → HO.IMC 11-19 18:07
PROVIDERS: Physician Assistant; Admitting Provider Internal Medicine Cardiovascular Disease; Emergency Provider Emergency Medicine; PCP Internal Medicine; Visit Provider Internal Medicine
DX: G92 Toxic encephalopathy (principal); J96.02 Acute respiratory failure with hypercapnia; J96.01 Acute respiratory failure with hypoxia; J18.9 Pneumonia, unspecified organism; I31.3 Pericardial effusion (noninflammatory); F19.20 Other psychoactive substance dependence, uncomplicated; C18.7 Malignant neoplasm of sigmoid colon; E87.1 Hypo-osmolality and hyponatremia; E66.2 Morbid (severe) obesity with alveolar hypoventilation; I48.91 Unspecified atrial fibrillation; Z20.822 Contact with and (suspected) exposure to COVID-19; Z87.891 Personal history of nicotine dependence; Z88.0 Allergy status to penicillin; I10 Essential (primary) hypertension; J44.9 Chronic obstructive pulmonary disease, unspecified; F31.9 Bipolar disorder, unspecified; Y92.9 Unspecified place or not applicable; T40.2X5A Adverse effect of other opioids, initial encounter; Z68.34 Body mass index [BMI] 34.0-34.9, adult; Z91.19 Patient's noncompliance with other medical treatment and regimen; Z99.81 Dependence on supplemental oxygen; Z88.2 Allergy status to sulfonamides; Z79.01 Long term (current) use of anticoagulants; Z79.891 Long term (current) use of opiate analgesic; Z79.899 Other long term (current) drug therapy; Z66 Do not resuscitate
CPT/HCPCS: 36415; 70450; 71045; 80048; 80076; 80143; 80164; 80307; 81001; 82140; 82947; 83605; 83690; 83735; 83880; 84100; 84484; 85025; 85027; 85610; 85730; 86850; 86900; 86901; 87040; 87635; 93005; 94640; 94644; 94660; 99285; C1758; J0696; J2930; J3475

== ENCOUNTER 2020-11-28 22:27 | Inpatient (IN) | payer MEDICARE, MEDICAID, SELFPAY ==
--- NOTE | ~2020-11-28 | XR_ITS ---
EXAMINATION: XR CHEST CLINICAL INFORMATION: Shortness of breath COMPARISON: 11/18/2020 TECHNIQUE: Frontal view of the chest was obtained. FINDINGS: Exam is similar to previous. Findings suggest vascular congestion. Persistent left basilar opacity may be chronic atelectasis. This is increased from 07/17/2020 XR/XR chest 1V IMPRESSION: Findings suggest vascular congestion/early CHF. Persistent left basilar opacity. This may represent fluid and/or atelectasis or infiltrate. Follow-up recommended
[2020-11-28 22:30] VITALS: BP 187/100; PULSE 85; RESP 16; TEMP 36.7; O2SAT 95; BMI 32.2
--- NOTE | 2020-11-28 23:28 | ED.GIBLEED ---
HPI - GI Bleed General Chief complaint: GI Bleed Stated complaint: rectal bleeding Time Seen by Provider: 11/28/20 23:21 Source: patient Mode of arrival: ambulatory Limitations: no limitations History of Present Illness HPI Narrative: patient 55 years old female with history of sigmoid colon adeno carcinoma seen and colonoscopy on 08/23 plan for resection on 11/30 for just discharged on 11/20 after respiratory failure had AFib during stay and started on Eliquis comes back as she had about 5 or 6 bowel movements with dark-colored stool with lower abdominal cramping today. Patient denied any nausea no vomiting no increased shortness of breath no chest pain no syncope no dizziness no palpitation patient does have a history of hemorrhoids but never had bleeding like this in the past Related Data Home Medications Medication Instructions Recorded Confirmed amitriptyline 25 mg PO BEDTIME 04/21/20 11/18/20 divalproex 500 mg PO QAM 04/21/20 11/18/20 duloxetine 60 mg PO BEDTIME 04/21/20 11/18/20 omeprazole 20 mg PO BID 04/21/20 11/18/20 Breo Ellipta 1 inh INHALATION DAILY 05/26/20 11/18/20 Incruse Ellipta 1 inh INHALATION DAILY 05/26/20 11/18/20 metoprolol succinate 50 mg PO DAILY 05/26/20 11/18/20 atorvastatin 20 mg PO BEDTIME 07/03/20 11/18/20 divalproex 1,000 mg PO QPM 09/10/20 11/18/20 ferrous sulfate 1 tab PO BID 09/10/20 11/18/20 blood pressure monitor #1 ea 10/22/20 10/22/20 blood pressure test kit-large #1 ea 10/22/20 10/22/20 ondansetron HCl [Zofran] 4 mg PO Q6H PRN 10/22/20 11/18/20 Eliquis 5 mg PO BID 11/18/20 11/18/20 Previous Rx's Medication Instructions Recorded albuterol sulfate 2 puff INHALATION Q4-6H PRN #8.5 g 04/30/20 diltiazem HCl [Cardizem CD] 240 mg PO DAILY #60 cap 11/02/20 tramadol 50 mg PO Q8H PRN #20 tab 11/02/20 magnesium oxide 400 mg PO BID #14 cap 11/11/20 erythromycin 500 mg tablet 500 mg PO .COMPLEX #6 tab 11/16/20 neomycin 500 mg tablet 1 g PO .COMPLEX #6 tab 11/16/20 Allergies Allergy/AdvReac Type Severity Reaction Status Date / Time levofloxacin [From Levaquin] Allergy Severe Diarrhea Verified 10/29/20 16:50 Penicillins Allergy Mild RASH Verified 10/29/20 16:50 venlafaxine [From Effexor] Allergy Mild RASH Verified 10/29/20 16:50 cyclobenzaprine Allergy Unknown UNKNOWN Verified 10/29/20 16:50 [Cyclobenzaprine] fentanyl [FENTANYL] Allergy Unknown HALLUCINATI Verified 10/29/20 16:50 ONS topiramate [From Topamax] Allergy Unknown UNKNOWN Verified 10/29/20 16:50 Sulfa (Sulfonamide AdvReac Severe Diarrhea Verified 10/29/20 16:50 Antibiotics) Review of Systems Review of Systems: Constitutional : No Weight loss, No Fever, No Chills ENT/Mouth : No sore throat, No Rhinorrhea Eyes: No Eye Pain, No Swelling Cardiovascular : No Chest Pain, no palpitations Respiratory : No Cough, No Sputum, + shortness of breath Gastrointestinal : no Nausea, No Vomiting, No Diarrhea, + abdominal Pain, no black stools Genitourinary : No Dysuria, No Urinary Frequency Musculoskeletal : No joint pain, No Myalgias, No Joint Swelling Skin : No Skin Lesions, No rash Neuro : No Weakness, No Numbness, No Dizziness, No Headache Psych : No Anxiety/Panic, No Depression Heme/Lymph: No Bruising, No Lymphadenopathy Endocrine : No Polyuria, No Polydipsia All other systems reviewed and are negative [facility] Past Medical History Medical History Abnormal PET scan of colon Acute and chronic respiratory failure Acute on chronic diastolic CHF (congestive heart failure) Adenocarcinoma of sigmoid colon Atrial fibrillation with rapid ventricular response Atrial fibrillation with RVR Atrial flutter with rapid ventricular response Back pain with history of spinal surgery Bilateral pneumonia Bipolar 1 disorder Bipolar disorder CAD (coronary artery disease) Cancer of lower lobe of left lung CHF exacerbation Chronic back pain Colon cancer Congestive heart failure COPD (chronic obstructive pulmonary disease) COPD (chronic obstructive pulmonary disease) COPD (chronic obstructive pulmonary disease) COVID-19 vaccine series completed Depression Essential hypertension Fibromyalgia GERD (gastroesophageal reflux disease) GI bleed High cholesterol History of COVID-19 HTN (hypertension) Hypernatremia Hypoventilation associated with obesity Hypoxia Hypoxia Lethargy Lung cancer Lung mass Mass of colon No natural teeth Obesity Obesity hypoventilation syndrome Opacity of lung on imaging study IVY (obstructive sleep apnea) Other and unspecified hyperlipidemia Oxygen dependent Pericardial effusion Peripheral vascular disease Pleural effusion, left Pneumonia Polysubstance (including opioids) dependence, binge pattern Preoperative cardiovascular examination PTSD (post-traumatic stress disorder) Renal failure Respiratory failure with hypoxia and hypercapnia Respiratory failure with hypoxia and hypercapnia Restless legs syndrome (RLS) Restrictive lung disease Rotator cuff strain Sleep disorder Smoker UTI (urinary tract infection) Surgical History H/O colonoscopy H/O: hysterectomy History of back surgery History of bunionectomy History of esophagogastroduodenoscopy (EGD) Hx of appendectomy Hx of cholecystectomy Hx of exploratory laparotomy Status post lobectomy of lung Family History Family History Maternal Aunt Breast cancer Stroke COPD (chronic obstructive pulmonary disease) Maternal Aunt Breast cancer COPD (chronic obstructive pulmonary disease) Mother Uterine cancer COPD (chronic obstructive pulmonary disease) HTN (hypertension) Heart disease Maternal Uncle Stroke Paternal Grandmother Heart attack Sister Diabetes IBS (irritable bowel syndrome) Son HTN (hypertension) Daughter HTN (hypertension) Father HTN (hypertension) Brother Heart disease Social History Social History Household Members: Spouse Housing: Apartment Are you a primary post anesthesia care unit nurse to a significant other at home: No Do you presently have visiting nurse or other home services: Yes Unable to assess alcohol history related to: Unable to respond Patient Tobacco Use Status: Former Tobacco user Cigarettes Per Day: 3 Years Smoked: 40 Second Hand Smoke Exposure: Yes Advance Directives: Yes Advance Directives on File: Yes Advance Directives Date on File: 05/01/20 Patient : No service: No Current occupational status: unemployed and disabled Physical Exam Vital Signs: Vital Signs: Last Vital Signs Temp 98.1 F 11/28/20 22:30 Pulse 85 11/28/20 22:30 Resp 16 11/28/20 22:30 BP 187/100 H 11/28/20 22:30 Pulse Ox 95 06/26/21 22:30 Oxygen Flow Rate 2 11/28/20 22:30 Body Mass Index 32.2 Appearance: Alert. Oriented X3. No acute distress. Eyes: PERRLA, No Nystagmus ENT: Pharynx normal. Oral Mucosa moist Neck: Normal inspection. Neck supple. CVS: Normal heart rate and rhythm. Pulses normal. Respiratory: No respiratory distress. Equal air entry bilateral, no wheezing/rales/rhonchi Abdomen: Soft, mild diffuse tenderness lower abdomen no rebound tenderness or guarding, Bowel sounds are present, no mass palpable, no CVA tenderness Rectal: maroon colored stool guaiac positive Skin: Skin warm and dry. Normal skin color. Normal skin turgor. Extremities: No lower extremity edema. No calf tenderness Neuro: Oriented X 3. No motor deficit. No sensory deficit. MDM - GI Bleed MDM Narrative Medical decision making narrative: patient with lower GI bleed likely from adeno carcinoma also started on Eliquis 10 days ago. Patient hemoglobin is 9.8 which is stable but as patient is on Eliquis and has adrenal carcinoma will admit patient for observation patient did not take her Eliquis last night Medical Records Attestation: I reviewed the patient's medical records. Lab Data Attestation: I reviewed the patient's lab results. Result diagrams: 11/28/20 23:47 11/28/20 23:47 Labs: Lab Results 11/28/20 11/28/20 11/28/20 Range/Units 23:47 23:47 23:47 WBC 11.7 H (4.8-10.8) X10*3/uL RBC 3.79 L (4.20-5.50) X10*6/uL Hgb 9.8 L (12.0-16.0) g/dl Hct 35.3 L (37-47) % MCV 93.1 (80-98) fL MCH 25.9 L (27.0-33.0) pg MCHC 27.8 L (31.0-35.0) g/dl RDW 17.8 H (11.0-16.0) % Plt Count 440 H D (160-400) X10*3/uL MPV 8.5 L (9.4-12.3) fL Immature Gran % (Auto) 0.8 H (0.0-0.4) % Neut % (Auto) 73.2 H (45-73) % Lymph % (Auto) 15.3 L (20-40) % [place] % (Auto) 9.8 (2-11) % Eos % (Auto) 0.6 (0-4) % Baso % (Auto) 0.3 (0-2) % Lymph # (Auto) 1.8 (1.2-4.9) X10*3/uL [place] # (Auto) 1.2 (0.1-1.2) X10*3/uL Eos # (Auto) 0.1 (0.0-0.4) X10*3/uL Baso # (Auto) 0.0 (0.0-0.2) X10*3/uL Abs Immat Gran (auto) 0.09 H (0.00-0.03) X10*3/uL Absolute Neuts (auto) 8.6 H (2.0-8.3) X10*3/uL Absolute Nucleated RBC 0.000 (0.0-0.012) X10*3/uL Nucleated RBC % (auto) 0.0 (0.0-0.2) /100WBC PT 15.3 H D (10.8-13.0) SEC INR 1.3 H (0.9-1.1) APTT 49.4 H D (24.1-38.0) SEC Sodium 142 (135-145) mmol/L Potassium 4.1 (3.3-5.1) mmol/L Chloride 96 (96-108) mmol/L Carbon Dioxide 37 H (22-29) mmol/L Anion Gap 13 (12-20) BUN 5 L (9-16) mg/dL Creatinine 0.68 (0.5-1.4) mg/dL Estim Creat Clear Calc 96.4 Estimated GFR > 60 Random Glucose 95 (60-115) mg/dL Calcium 8.4 (8.4-10.2) mg/dL Total Bilirubin < 0.2 (0.0-1.0) mg/dL Direct Bilirubin < 0.2 (0.0-0.5) mg/dL AST 11 (5-31) U/L ALT < 6 (0-31) U/L Alkaline Phosphatase 97 (39-117) U/L Total Protein 6.5 (6.5-8.0) g/dL Albumin 3.2 L (3.5-5.0) g/dL Lipase 20 (8-78) U/L Stool Occult Blood (NEGATIVE) COVID-19 (ANA) (Negative) COVID-19 Clin Com Blood Type Antibody Screen 11/28/20 11/28/20 11/28/20 Range/Units 23:47 23:47 23:49 WBC (4.8-10.8) X10*3/uL RBC (4.20-5.50) X10*6/uL Hgb (12.0-16.0) g/dl Hct (37-47) % MCV (80-98) fL MCH (27.0-33.0) pg MCHC (31.0-35.0) g/dl RDW (11.0-16.0) % Plt Count (160-400) X10*3/uL MPV (9.4-12.3) fL Immature Gran % (Auto) (0.0-0.4) % Neut % (Auto) (45-73) % Lymph % (Auto) (20-40) % [place] % (Auto) (2-11) % Eos % (Auto) (0-4) % Baso % (Auto) (0-2) % Lymph # (Auto) (1.2-4.9) X10*3/uL [place] # (Auto) (0.1-1.2) X10*3/uL Eos # (Auto) (0.0-0.4) X10*3/uL Baso # (Auto) (0.0-0.2) X10*3/uL Abs Immat Gran (auto) (0.00-0.03) X10*3/uL Absolute Neuts (auto) (2.0-8.3) X10*3/uL Absolute Nucleated RBC (0.0-0.012) X10*3/uL Nucleated RBC % (auto) (0.0-0.2) /100WBC PT (10.8-13.0) SEC INR (0.9-1.1) APTT (24.1-38.0) SEC Sodium (135-145) mmol/L Potassium (3.3-5.1) mmol/L Chloride (96-108) mmol/L Carbon Dioxide (22-29) mmol/L Anion Gap (12-20) BUN (9-16) mg/dL Creatinine (0.5-1.4) mg/dL Estim Creat Clear Calc Estimated GFR Random Glucose (60-115) mg/dL Calcium (8.4-10.2) mg/dL Total Bilirubin (0.0-1.0) mg/dL Direct Bilirubin (0.0-0.5) mg/dL AST (5-31) U/L ALT (0-31) U/L Alkaline Phosphatase (39-117) U/L Total Protein (6.5-8.0) g/dL Albumin (3.5-5.0) g/dL Lipase (8-78) U/L Stool Occult Blood POSITIVE (NEGATIVE) COVID-19 (ANA) Negative (Negative) COVID-19 Clin Com See Note Blood Type B Negative Antibody Screen NEGATIVE ECG Data Attestation: I personally reviewed and interpreted this ECG as follows: Interpretation: normal sinus rhythm heart rate 84 beats per minute normal intervals normal axis no acute ST T wave changes no acute ischemia Discharge Plan Discharge Clinical Impression: Hematochezia Patient Disposition: Admitted As Inpatient
--- NOTE | 2020-11-28 23:39 | ECG_ITS ---
Test Reason : GI BLEED Blood Pressure : / mmHG Vent. Rate : 084 BPM Atrial Rate : 084 BPM P-R Int : 146 ms QRS Dur : 090 ms QT Int : 358 ms P-R-T Axes : 067 075 061 degrees QTc Int : 423 ms Normal sinus rhythm Nonspecific T wave abnormality Abnormal ECG When compared with ECG of 18-NOV-2020 08:07, No significant change was found Referred By: Shay Bedolla Electronically Signed By:Soto Jaquez
[2020-11-28 23:56] LABS: MANUAL DIFF FLAG NO
[2020-11-28 23:57] LABS: Basophils Percent Auto 0.3 % (0-2); Eosinophils Absolute Auto 0.1 X10*3/uL (0.0-0.4); Eosinophils Percent Auto 0.6 % (0-4); Hematocrit 35.3 % (37-47); Hemoglobin 9.8 g/dl (12.0-16.0); Imm Gran Abs Auto 0.09 X10*3/uL (0.00-0.03); Imm Gran Pct Auto 0.8 % (0.0-0.4); Lymphocytes Absolute Auto 1.8 X10*3/uL (1.2-4.9); Lymphocytes Percent Auto 15.3 % (20-40); Mean Corpuscular HGB Conc 27.8 g/dl (31.0-35.0); Mean Corpuscular Hemoglobin 25.9 pg (27.0-33.0); Mean Corpuscular Volume 93.1 fL (80-98); Mean Platelet Volume 8.5 fL (9.4-12.3); Monocytes Absolute Auto 1.2 X10*3/uL (0.1-1.2); Monocytes Percent Auto 9.8 % (2-11); Neutrophils Absolute Auto 8.6 X10*3/uL (2.0-8.3); Neutrophils Percent Auto 73.2 % (45-73); Platelet Count 440 X10*3/uL (160-400); Red Blood Count 3.79 X10*6/uL (4.20-5.50); Red Cell Distribution Width 17.8 % (11.0-16.0); White Blood Count 11.7 X10*3/uL (4.8-10.8)
[2020-11-28 23:58] LABS: OBS Int Ctl Valid YES; OBS1 POSITIVE (NEGATIVE)
[2020-11-29] VITALS (8 sets, daily range): BP systolic 99–100; BP diastolic 64–68; PULSE 78–94; RESP 15–22; TEMP 36.2–36.7; O2SAT 93–98
[2020-11-29 00:09] LABS: COVID-19 Test Negative (Negative); IDNOW Serial# 9DD0AD1C
[2020-11-29 00:16] LABS: INTERNATIONAL NORM RATIO 1.3 (0.9-1.1); Prothrombin Time 15.3 SEC (10.8-13.0)
[2020-11-29 00:19] LABS: Partial Thromboplastin Time 49.4 SEC (24.1-38.0)
[2020-11-29 00:22] LABS: Alanine Aminotransferase < 6 U/L (0-31); Albumin Level 3.2 g/dL (3.5-5.0); Alkaline Phosphatase 97 U/L (39-117); Anion Gap 13 (12-20); Aspartate Amino Transferase 11 U/L (5-31); Bilirubin Direct < 0.2 mg/dL (0.0-0.5); Bilirubin Total < 0.2 mg/dL (0.0-1.0); Blood Urea Nitrogen 5 mg/dL (9-16); Calcium 8.4 mg/dL (8.4-10.2); Carbon Dioxide 37 mmol/L (22-29); Chloride 96 mmol/L (96-108); Creatinine Clr Calc Pharmacy 96.4; Estimated Glomerular Filt Rate > 60; Glucose Random 95 mg/dL (60-115); Lipase 20 U/L (8-78); Potassium 4.1 mmol/L (3.3-5.1); Sodium 142 mmol/L (135-145); Total Protein 6.5 g/dL (6.5-8.0)
--- NOTE | 2020-11-29 00:32 | P.HPHOSP_ITS ---
History of Present Illness Date of Service: 11/29/20 Chief Complaint: BRBPR 55-year-old female with a past medical history, hyperlipidemia, coronary artery disease, CHF, history of lung mass, hx Colon cancer- due for surgery, AFib on Eliquis,obesity, IVY, chronic respiratory failure home oxygen restrictive lung disease COPD anxiety, depression, PTSD, bipolar, history of COVID-19 infection, presented to the with a chief complaint bright red blood per rectum. patient denies any chest pain palpitations lightheadedness dizziness. denies any abdominal pain, nausea vomiting or diarrhea. Denies any urinary symptoms Review of all other is negative mentioned above ER course: For ER team patient vitals are stable, hemoglobin 9.8 ; admitted to the hospital for further management [facility] Medical History Abnormal PET scan of colon Acute and chronic respiratory failure Acute on chronic diastolic CHF (congestive heart failure) Adenocarcinoma of sigmoid colon Atrial fibrillation with rapid ventricular response Atrial fibrillation with RVR Atrial flutter with rapid ventricular response Back pain with history of spinal surgery Bilateral pneumonia Bipolar 1 disorder Bipolar disorder CAD (coronary artery disease) Cancer of lower lobe of left lung CHF exacerbation Chronic back pain Colon cancer Congestive heart failure COPD (chronic obstructive pulmonary disease) COPD (chronic obstructive pulmonary disease) COPD (chronic obstructive pulmonary disease) COVID-19 vaccine series completed Depression Essential hypertension Fibromyalgia GERD (gastroesophageal reflux disease) GI bleed High cholesterol History of COVID-19 HTN (hypertension) Hypernatremia Hypoventilation associated with obesity Hypoxia Hypoxia Lethargy Lung cancer Lung mass Mass of colon No natural teeth Obesity Obesity hypoventilation syndrome Opacity of lung on imaging study IVY (obstructive sleep apnea) Other and unspecified hyperlipidemia Oxygen dependent Pericardial effusion Peripheral vascular disease Pleural effusion, left Pneumonia Polysubstance (including opioids) dependence, binge pattern Preoperative cardiovascular examination PTSD (post-traumatic stress disorder) Renal failure Respiratory failure with hypoxia and hypercapnia Respiratory failure with hypoxia and hypercapnia Restless legs syndrome (RLS) Restrictive lung disease Rotator cuff strain Sleep disorder Smoker UTI (urinary tract infection) Family History Maternal Aunt Breast cancer Stroke COPD (chronic obstructive pulmonary disease) Maternal Aunt Breast cancer COPD (chronic obstructive pulmonary disease) Mother Uterine cancer COPD (chronic obstructive pulmonary disease) HTN (hypertension) Heart disease Maternal Uncle Stroke Paternal Grandmother Heart attack Sister Diabetes IBS (irritable bowel syndrome) Son HTN (hypertension) Daughter HTN (hypertension) Father HTN (hypertension) Brother Heart disease Surgical History H/O colonoscopy H/O: hysterectomy History of back surgery History of bunionectomy History of esophagogastroduodenoscopy (EGD) Hx of appendectomy Hx of cholecystectomy Hx of exploratory laparotomy Status post lobectomy of lung Social History Household Members: Spouse Housing: House Are you a primary lead care manager to a significant other at home: No Do you presently have visiting nurse or other home services: Yes Unable to assess alcohol history related to: Unable to respond Alcohol intake: never Patient Tobacco Use Status: Former Tobacco user Cigarettes Per Day: 3 Years Smoked: 40 Second Hand Smoke Exposure: Yes Use of substances other than those prescribed or required for medical reasons: No Have you been hit, kicked, punched, or otherwise hurt by someone within the past year? If so, by whom?: No Do you feel safe in your current relationship?: No Is there a partner from a previous relationship who is making you feel unsafe now?: No Are you made to feel afraid or neglected: No Advance Directives: Yes Advance Directives on File: Yes Advance Directives Date on File: 05/01/20 Do you have thoughts of harming others: None Do you have a plan to hurt others: No Plan Recently lost weight without trying: Unsure Nutrition Risks: No Nutritional Risk Patient : No : No Poor oral hygiene: No service: No Current occupational status: unemployed and disabled Meds Allergies Allergy/AdvReac Type Severity Reaction Status Date / Time levofloxacin [From Levaquin] Allergy Severe Diarrhea Verified 10/29/20 16:50 Penicillins Allergy Mild RASH Verified 10/29/20 16:50 venlafaxine [From Effexor] Allergy Mild RASH Verified 10/29/20 16:50 cyclobenzaprine Allergy Unknown UNKNOWN Verified 10/29/20 16:50 [Cyclobenzaprine] fentanyl [FENTANYL] Allergy Unknown HALLUCINATI Verified 10/29/20 16:50 ONS topiramate [From Topamax] Allergy Unknown UNKNOWN Verified 10/29/20 16:50 Sulfa (Sulfonamide AdvReac Severe Diarrhea Verified 10/29/20 16:50 Antibiotics) Active Medications: Current Medications Generic Name Dose Route Start Last Admin Trade Name Charlie PRN Reason Stop Dose Admin Acetaminophen 650 mg 11/29/20 00:27 Acetaminophen 325 Mg Tablet PO Q6H PRN Pain, Mild (Pain Scale 1-3) Dextrose/Sodium Chloride 1,000 mls @ 100 mls/hr 11/29/20 00:30 D51/2ns IVCONT .Q10H [facility] Melatonin 6 mg 11/29/20 00:27 Melatonin 3 Mg Tablet PO BEDTIME PRN Insomnia Pantoprazole Sodium 40 mg 11/29/20 06:30 Pantoprazole Sodium 40 Mg/10 Ml Vial IVPUSH DAILY@0630 [facility] Sodium Chloride 3 ml 11/29/20 08:00 0.9 % Sodium Chloride Flush 3 Ml Syringe IVFLUSH QSHIFT [facility] Home Medications Medication Instructions Recorded Confirmed Last Taken Type amitriptyline 25 mg PO BEDTIME 04/21/20 11/29/20 11/28/20 History divalproex 500 mg PO QAM 04/21/20 11/29/20 11/28/20 History duloxetine 60 mg PO BEDTIME 04/21/20 11/29/20 11/28/20 History omeprazole 20 mg PO BID 04/21/20 11/29/20 11/28/20 History Breo Ellipta 1 inh INHALATION DAILY 05/26/20 11/29/20 11/28/20 History Incruse Ellipta 1 inh INHALATION DAILY 05/26/20 11/29/20 11/28/20 History metoprolol succinate 50 mg PO DAILY 05/26/20 11/29/20 11/28/20 History atorvastatin 20 mg PO BEDTIME 07/03/20 11/29/20 11/28/20 History divalproex 1,000 mg PO QPM 09/10/20 11/29/20 11/28/20 History ferrous sulfate 1 tab PO BID 09/10/20 11/29/20 11/28/20 History blood pressure monitor #1 ea 10/22/20 11/29/20 11/28/20 History blood pressure test kit-large #1 ea 10/22/20 11/29/20 11/28/20 History ondansetron HCl [Zofran] 4 mg PO Q6H PRN 10/22/20 11/29/20 11/28/20 History Eliquis 5 mg PO BID 11/18/20 11/29/20 11/28/20 History buspirone 1 - 2 tab PO TID PRN 11/29/20 11/29/20 11/28/20 History clonazepam 1 tab PO TID PRN 11/29/20 11/29/20 11/28/20 History Physical Exam Vital Signs and Narrative: Vital Signs: Last Vital Signs Temp 98.1 F 11/28/20 22:30 Pulse 85 11/28/20 22:30 Resp 16 11/28/20 22:30 BP 187/100 H 11/28/20 22:30 Pulse Ox 95 11/28/20 22:30 Oxygen Flow Rate 2 11/28/20 22:30 Body Mass Index 32.2 Gen: Appears be in no acute distress HEENT: NCAT, Moist mucosa. Pulmonary: Vesicular breath sounds, fair air entry CVS: Normal S1-S2 Abdomen: BS+, Soft, Nontender Extremities: Warm well perfused Neuro: Alert and awake. Results Labs CBC and Chem 7: 11/29/20 11:44 11/29/20 06:51 Labs: Laboratory Results - last 24 hr 11/28/20 11/28/20 11/28/20 23:47 23:47 23:47 MCV 93.1 MCH 25.9 L MCHC 27.8 L RDW 17.8 H Plt Count 440 H D MPV 8.5 L Immature Gran % (Auto) 0.8 H Neut % (Auto) 73.2 H Lymph % (Auto) 15.3 L [place] % (Auto) 9.8 Eos % (Auto) 0.6 Baso % (Auto) 0.3 Lymph # (Auto) 1.8 [place] # (Auto) 1.2 Eos # (Auto) 0.1 Baso # (Auto) 0.0 Abs Immat Gran (auto) 0.09 H Absolute Neuts (auto) 8.6 H Absolute Nucleated RBC 0.000 Nucleated RBC % (auto) 0.0 PT 15.3 H D INR 1.3 H APTT 49.4 H D Anion Gap 13 Estim Creat Clear Calc 96.4 Estimated GFR > 60 Random Glucose 95 Calcium 8.4 Total Bilirubin < 0.2 Direct Bilirubin < 0.2 AST 11 ALT < 6 Alkaline Phosphatase 97 Total Protein 6.5 Albumin 3.2 L Lipase 20 Stool Occult Blood COVID-19 (ANA) COVID-19 Clin Com 11/28/20 11/28/20 23:47 23:49 MCV MCH MCHC RDW Plt Count MPV Immature Gran % (Auto) Neut % (Auto) Lymph % (Auto) [place] % (Auto) Eos % (Auto) Baso % (Auto) Lymph # (Auto) [place] # (Auto) Eos # (Auto) Baso # (Auto) Abs Immat Gran (auto) Absolute Neuts (auto) Absolute Nucleated RBC Nucleated RBC % (auto) PT INR APTT Anion Gap Estim Creat Clear Calc Estimated GFR Random Glucose Calcium Total Bilirubin Direct Bilirubin AST ALT Alkaline Phosphatase Total Protein Albumin Lipase Stool Occult Blood POSITIVE COVID-19 (ANA) Negative COVID-19 Clin Com See Note Imaging Radiologist's Impressions: Impressions Chest X-Ray 11/28/20 23:39 IMPRESSION: Findings suggest vascular congestion/early CHF. Persistent left basilar opacity. This may represent fluid and/or atelectasis or infiltrate. Follow-up recommended Assessment and Plan (1) Hematochezia: Status: Acute 55-year-old female with a past medical history hypertension, hyperlipidemia, artery disease, CHF AFib on Eliquis, history cancer, restrictive lung disease, COPD, IVY, obesity, respiratory failure home oxygen, migraines, anxiety, depression, PTSD, bipolar history of lung cancer - due for surgery; presented to the with a chief complaint Bright red blood per rectum. BRBPR: currently hemoglobin 9.8. Vitals stable. Serial H& H. Ppi. GI consult. History AFib: Will hold home Eliquis. Rate controlled. Hypertension/hyperlipidemia CAD/CHF: Continue home medications. History of colon cancer: Reportedly patient is due for surgery. Will consult General surgery. DVT prophylaxis: SCD boots Code status: full Code Quality Stroke Does the patient have a stroke diagnosis?: No VTE Prior VTE?: No VTE Risk Level:: Medical - moderate - high VTE Device Contraindication: N/A - Device Ordered VTE Drug Contraindication: Treatment Not Indicated
[2020-11-29] MEDS: LORazepam 1 MG TABLET PO (01:43)
[2020-11-29] MEDS: Dextrose 5 % and 0.45 % NaCl 1,000 ML 100 ML IVCONT ×2 (01:44→12:42)
[2020-11-29 07:01] LABS: MANUAL DIFF FLAG NO
[2020-11-29 07:03] LABS: Basophils Percent Auto 0.4 % (0-2); Eosinophils Percent Auto 0.4 % (0-4); Hematocrit 37.1 % (37-47); Hemoglobin 10.3 g/dl (12.0-16.0); Imm Gran Abs Auto 0.16 X10*3/uL (0.00-0.03); Imm Gran Pct Auto 1.6 % (0.0-0.4); Lymphocytes Percent Auto 20.1 % (20-40); Mean Corpuscular HGB Conc 27.8 g/dl (31.0-35.0); Mean Corpuscular Hemoglobin 25.9 pg (27.0-33.0); Mean Corpuscular Volume 93.5 fL (80-98); Mean Platelet Volume 8.5 fL (9.4-12.3); Monocytes Absolute Auto 0.7 X10*3/uL (0.1-1.2); Monocytes Percent Auto 7.2 % (2-11); Neutrophils Absolute Auto 6.8 X10*3/uL (2.0-8.3); Neutrophils Percent Auto 70.3 % (45-73); Platelet Count 456 X10*3/uL (160-400); Red Blood Count 3.97 X10*6/uL (4.20-5.50); Red Cell Distribution Width 17.9 % (11.0-16.0); White Blood Count 9.7 X10*3/uL (4.8-10.8)
[2020-11-29] MEDS: Pantoprazole Sodium 40 MG/10 ML VIAL IVPUSH (07:06)
[2020-11-29 07:24] LABS: Anion Gap 12 (12-20); Blood Urea Nitrogen 5 mg/dL (9-16); Calcium 8.2 mg/dL (8.4-10.2); Carbon Dioxide 36 mmol/L (22-29); Chloride 95 mmol/L (96-108); Estimated Glomerular Filt Rate > 60; Glucose Random 94 mg/dL (60-115); Potassium 3.8 mmol/L (3.3-5.1); Sodium 139 mmol/L (135-145)
--- NOTE | 2020-11-29 07:58 | PC.NURSE ---
report taken from franck rn pt admitted for gi bleed, no gross bleeding noted this when pt placed on bed boyce. pt on cpap, intermittently desating to high 80s w/o encouragement and coaching. pt offers no new complaints, medicated per emar. wctm.
[2020-11-29 08:30] LABS: ABG Base Excess 16.8 mmol/L; ABG HCO3 45 mmol/L (22-26); ABG pCO2 78 mmHg (32-45); ABG pCO2 TC 78 mmHg (32-45); ABG pH 7.37 (7.35-7.45); ABG pH TC 7.37 (7.35-7.45); ABG pO2 72 mmHg (83-108); ABG pO2 TC 71 (83-108)
[2020-11-29 09:08] LABS: ABG Refer to POC result
--- NOTE | 2020-11-29 09:54 | HO.PM.IMPN ---
Subjective Subjective Date of Service: 11/29/20 Interval History: Seen in f/u for rectal bleeding, but while in ED she got 1 mg of Ativan and has become unresponsive and desaturating, ABG shows acute on chronic CO2 retention and has been put on BiPAP and is showing signs of improvement. Review of Systems Review of Systems: Yes Unobtainable due to mental status Physical Exam Vital Signs: Vital Signs: Last Vital Signs Temp 98.1 F 11/28/20 22:30 Pulse 81 11/29/20 07:10 Resp 22 H 11/29/20 08:17 BP 187/100 H 11/28/20 22:30 Pulse Ox 97 11/29/20 07:10 Oxygen Flow Rate 2 11/28/20 22:30 Body Mass Index 32.2 Const: Other: General: very somnolent, does wake with stimulus Resp: CTA bilateral CVS: S1,S2,RRR GI: +BS, NT, no distention Skin: No rash Neuro: motor grossly intact Psych: unresponsive and not able to assess Objective Data Current Medications Generic Name Dose Route Start Last Admin Trade Name Charlie PRN Reason Stop Dose Admin Acetaminophen 650 mg 11/29/20 00:27 Acetaminophen 325 Mg Tablet PO Q6H PRN Pain, Mild (Pain Scale 1-3) Dextrose/Sodium Chloride 1,000 mls @ 100 mls/hr 11/29/20 00:30 11/29/20 01:44 D51/2ns IVCONT 100 mls/hr .Q10H LONG Administration Melatonin 6 mg 11/29/20 00:27 Melatonin 3 Mg Tablet PO BEDTIME PRN Insomnia Pantoprazole Sodium 40 mg 11/29/20 06:30 11/29/20 07:06 Pantoprazole Sodium 40 Mg/10 Ml Vial IVPUSH 40 mg DAILY@0630 LONG Administration Sodium Chloride 3 ml 11/29/20 08:00 11/29/20 07:06 0.9 % Sodium Chloride Flush 3 Ml Syringe IVFLUSH Not Given [facility] Labs CBC & Chem 7: 11/29/20 06:51 11/29/20 06:51 Labs: Laboratory Results - last 24 hr 11/28/20 11/28/20 11/28/20 23:47 23:47 23:47 WBC 11.7 H RBC 3.79 L Hgb 9.8 L Hct 35.3 L MCV 93.1 MCH 25.9 L MCHC 27.8 L RDW 17.8 H Plt Count 440 H D MPV 8.5 L Immature Gran % (Auto) 0.8 H Neut % (Auto) 73.2 H Lymph % (Auto) 15.3 L [place] % (Auto) 9.8 Eos % (Auto) 0.6 Baso % (Auto) 0.3 Lymph # (Auto) 1.8 [place] # (Auto) 1.2 Eos # (Auto) 0.1 Baso # (Auto) 0.0 Abs Immat Gran (auto) 0.09 H Absolute Neuts (auto) 8.6 H Absolute Nucleated RBC 0.000 Nucleated RBC % (auto) 0.0 PT 15.3 H D INR 1.3 H APTT 49.4 H D O2 Saturation ABG pH at Pt Temp ABG pH (Temp Correct) ABG pCO2 at Pt Temp ABG pCO2 (Temp Corrct ABG pO2 at Pt Temp ABG pO2 (Temp Correct ABG HCO3 ABG Base Excess (Actual) Sodium 142 Potassium 4.1 Chloride 96 Carbon Dioxide 37 H Anion Gap 13 BUN 5 L Creatinine 0.68 Estim Creat Clear Calc 96.4 Estimated GFR > 60 Random Glucose 95 Calcium 8.4 Total Bilirubin < 0.2 Direct Bilirubin < 0.2 AST 11 ALT < 6 Alkaline Phosphatase 97 Total Protein 6.5 Albumin 3.2 L Lipase 20 Stool Occult Blood COVID-19 (ANA) COVID-19 Clin Com Blood Type Antibody Screen 11/28/20 11/28/20 11/28/20 23:47 23:47 23:49 WBC RBC Hgb Hct MCV MCH MCHC RDW Plt Count MPV Immature Gran % (Auto) Neut % (Auto) Lymph % (Auto) [place] % (Auto) Eos % (Auto) Baso % (Auto) Lymph # (Auto) [place] # (Auto) Eos # (Auto) Baso # (Auto) Abs Immat Gran (auto) Absolute Neuts (auto) Absolute Nucleated RBC Nucleated RBC % (auto) PT INR APTT O2 Saturation ABG pH at Pt Temp ABG pH (Temp Correct) ABG pCO2 at Pt Temp ABG pCO2 (Temp Corrct ABG pO2 at Pt Temp ABG pO2 (Temp Correct ABG HCO3 ABG Base Excess (Actual) Sodium Potassium Chloride Carbon Dioxide Anion Gap BUN Creatinine Estim Creat Clear Calc Estimated GFR Random Glucose Calcium Total Bilirubin Direct Bilirubin AST ALT Alkaline Phosphatase Total Protein Albumin Lipase Stool Occult Blood POSITIVE COVID-19 (ANA) Negative COVID-19 [place]it Com See Note Blood Type B Negative Antibody Screen NEGATIVE 11/29/20 11/29/20 11/29/20 06:51 06:51 08:21 WBC 9.7 RBC 3.97 L Hgb 10.3 L Hct 37.1 MCV 93.5 MCH 25.9 L MCHC 27.8 L RDW 17.9 H Plt Count 456 H MPV 8.5 L Immature Gran % (Auto) 1.6 H Neut % (Auto) 70.3 Lymph % (Auto) 20.1 [place] % (Auto) 7.2 Eos % (Auto) 0.4 Baso % (Auto) 0.4 Lymph # (Auto) 2.0 [place] # (Auto) 0.7 Eos # (Auto) 0.0 Baso # (Auto) 0.0 Abs Immat Gran (auto) 0.16 H Absolute Neuts (auto) 6.8 Absolute Nucleated RBC 0.000 Nucleated RBC % (auto) 0.0 PT INR APTT O2 Saturation 92.0 ABG pH at Pt Temp 7.37 ABG pH (Temp Correct) 7.37 ABG pCO2 at Pt Temp 78 H* ABG pCO2 (Temp Corrct 78 H* ABG pO2 at Pt Temp 72 L ABG pO2 (Temp Correct 71 L ABG HCO3 45 H ABG Base Excess (Actual) 16.8 Sodium 139 Potassium 3.8 Chloride 95 L Carbon Dioxide 36 H Anion Gap 12 BUN 5 L Creatinine 0.69 Estim Creat Clear Calc 95.0 Estimated GFR > 60 Random Glucose 94 Calcium 8.2 L Total Bilirubin Direct Bilirubin AST ALT Alkaline Phosphatase Total Protein Albumin Lipase Stool Occult Blood COVID-19 (ANA) COVID-19 Clin Com Blood Type Antibody Screen Quality Stroke Does the patient have a stroke diagnosis?: No VTE Prior VTE?: No VTE Risk Level:: Medical - moderate - high VTE Device Contraindication: N/A - Device Ordered VTE Drug Contraindication: Treatment Not Indicated Assessment and Plan (1) Hematochezia: Status: Acute Assessment and Plan: 55-year-old female with a past medical history hypertension, hyperlipidemia, artery disease, CHF AFib on Eliquis, history cancer, restrictive lung disease, COPD, IVY, obesity, respiratory failure home oxygen, migraines, anxiety, depression, PTSD, bipolar history of lung cancer - due for surgery; presented to the with a chief complaint Bright red blood per rectum. Acute on chronic respiratory failure d/t CO2 retention likely precipitated by Lorazepam Avoid all sedative, continue BiPAP and repeat ABG soon and reassess If not improving she may need to go to ICU BRBPR, she has a known colon cancer that is supposed to be operated on but ends in hospital everytime this is planned. Follow serial H/H, Hold Eliquis, GI/Surgery consult. . History AFib: Will hold home Eliquis. Rate controlled. Hypertension/hyperlipidemia CAD/CHF: Continue home medications. History of colon cancer: Reportedly patient is due for surgery. Will consult General surgery. DVT prophylaxis: SCD boots Code status: full Code
[2020-11-29 11:52] LABS: Hematocrit 32.4 % (37-47); Hemoglobin 9.2 g/dl (12.0-16.0)
--- NOTE | 2020-11-29 12:26 | PC.NURSE ---
pt remains lethargic although placed on bipap at begining of shift d/t ?hypocarboxia. repeat abgs ordered, resp tx at bedside. pt alert to hard tactile stimuli, spo2 95% on 32% o2
[2020-11-29 12:30] LABS: ABG Base Excess 15.4 mmol/L; ABG HCO3 43 mmol/L (22-26); ABG pCO2 68 mmHg (32-45); ABG pO2 67 mmHg (83-108)
--- NOTE | 2020-11-29 12:38 | PC.NURSE ---
pt much more alert at this time, complaining of neck stiffness, repositioned w 2 assist. pt given her phone which was ringing at bedside. resp tx at bedside conversing w pt.
[2020-11-29 12:45] LABS: ABG Refer to POC result
[2020-11-29] MEDS: 0.9 % Sodium Chloride Flush 3 ML SYRINGE IVFLUSH (19:18)
[2020-11-29] MEDS: Melatonin 3 MG TABLET 6 MG PO (20:18)
--- NOTE | 2020-11-29 21:50 | CONS_ITS ---
DATE OF SERVICE: 11/29/2020 REFERRING PHYSICIAN: Brady Blue MD REASON FOR CONSULTATION: Rectal bleeding. HISTORY OF PRESENT ILLNESS: The patient is a 55-year-old woman seen today in consultation after presenting to the emergency room with complaints of bright red blood per rectum. Most of the history is obtained from the chart as the patient is very somnolent on a CPAP machine. She reportedly had bright red blood per rectum as well as abdominal cramping and dark colored stool. She has a history of sigmoid colon adenocarcinoma and has been evaluated for resection. She was recently hospitalized earlier in the month and diagnosed with atrial fibrillation with rapid ventricular response and is on anticoagulation with Eliquis. She was evaluated in the emergency department and laboratory studies were obtained showing a hematocrit of 35.3, which dropped slightly to 32.4 this morning. PAST MEDICAL HISTORY: 1. Atrial fibrillation. 2. Colon cancer. 3. COPD with history of respiratory failure. 4. Gastroesophageal reflux disease. 5. Hypertension. 6. Elevated cholesterol. 7. Sleep apnea. 8. PTSD. 9. Substance abuse. 10. Restless legs syndrome. 11. Urinary tract infection. CURRENT MEDICATIONS: Current medication list is reviewed in the chart. ALLERGIES: MULTIPLE MEDICATION ALLERGIES ARE REVIEWED. PAST SURGICAL HISTORY: Includes endoscopy and colonoscopy, cholecystectomy, exploratory laparotomy, lobectomy. FAMILY HISTORY: This is reviewed in the electronic medical record. SOCIAL HISTORY: There is no current substance abuse. REVIEW OF SYSTEMS: This is not obtainable. PHYSICAL EXAMINATION: GENERAL: Pleasant female, who is very sleepy and using a CPAP machine. VITAL SIGNS: Reviewed in the electronic medical record and are stable. SKIN: Pale. HEENT: No scleral icterus. NECK: Without lymphadenopathy or thyromegaly. LUNGS: Clear. HEART: Regular rate and rhythm. S1, S2. No murmur. ABDOMEN: Soft without focal masses or tenderness. Bowel sounds are present. No organomegaly is noted. EXTREMITIES: Without edema. Stool occult blood testing is positive. IMPRESSION: Rectal bleeding. The rectal bleeding is likely related to her sigmoid colon cancer and exacerbated by her Eliquis. I would recommend holding this for the time being and surgical consultation is being obtained. Colonoscopy is unlikely to be helpful in this situation. Thanks for asking me to see her. I will follow her in the hospital as needed. MD JEFF Small/EDVIN / [phone]
[2020-11-30] VITALS: BP 143/74; PULSE 71; RESP 18; TEMP 36.4; O2SAT 93
[2020-11-30] MEDS: Dextrose 5 % and 0.45 % NaCl 1,000 ML 100 ML IVCONT ×2 (03:25→13:29)
[2020-11-30 04:00] VITALS: BP 127/74; PULSE 80; RESP 18; TEMP 36.6; O2SAT 96
[2020-11-30] MEDS: Pantoprazole Sodium 40 MG/10 ML VIAL IVPUSH (05:26)
[2020-11-30] MEDS: Acetaminophen 325 MG TABLET 650 MG PO ×2 (05:37→11:06)
[2020-11-30 07:13] VITALS: BP 124/89; PULSE 85; RESP 18; TEMP 36.2; O2SAT 96
[2020-11-30 08:32] LABS: Hematocrit 33.5 % (37-47); Mean Corpuscular HGB Conc 29.9 g/dl (31.0-35.0); Mean Corpuscular Hemoglobin 26.7 pg (27.0-33.0); Mean Corpuscular Volume 89.3 fL (80-98); Mean Platelet Volume 8.9 fL (9.4-12.3); Platelet Count 431 X10*3/uL (160-400); Red Blood Count 3.75 X10*6/uL (4.20-5.50); Red Cell Distribution Width 17.3 % (11.0-16.0); White Blood Count 9.5 X10*3/uL (4.8-10.8)
[2020-11-30 09:00] LABS: Anion Gap 12 (12-20); Blood Urea Nitrogen 5 mg/dL (9-16); Calcium 8.5 mg/dL (8.4-10.2); Carbon Dioxide 34 mmol/L (22-29); Chloride 100 mmol/L (96-108); Estimated Glomerular Filt Rate > 60; Glucose Random 77 mg/dL (60-115); Potassium 3.7 mmol/L (3.3-5.1); Sodium 142 mmol/L (135-145)
[2020-11-30 11:39] VITALS: BP 183/88; PULSE 76; RESP 18; TEMP 36; O2SAT 96
--- NOTE | 2020-11-30 12:06 | P.CONGS_ITS ---
History of Present Illness Consult details Consult date: 11/30/20 Narrative: 55 year female who is well known to me. She had undergone colonoscopy in August, and was noted to have a lesion at level 40 cm of the colon. Biopsies of this showed an adenocarcinoma. I had seen her in October in the office. I had scheduled her for sigmoid resection twice. She canceled the 1st time because she said that she did not feel well and was vomiting. She was actually scheduled for resection again 2 weeks ago but whenevaluated in same- day surgery, she was markedly short of breath and was confused. The procedure was then canceled after discussions with the anesthesiologist. It was then de emed by the anesthesiologist that in view of her stable medical comorbidities, it may be best for her to undergo any major surgery in a tertiary center because of her marked perioperative risks. She was readmitted last November 29 to the hospital because of what she described as passage of bright blood per rectum. She is also on anticoagulation with Eliquis. Review of Systems Constitutional: Constitutional: Denies chills and Denies fever(s) Cardiovascular: Cardiovascular: Denies chest pain, Denies dyspnea and Reports dyspnea on exertion Respiratory: Respiratory: Denies cough, Denies dyspnea and Reports dyspnea on exertion Gastrointestinal: Gastrointestinal: Reports hematochezia and Denies change in bowel habits Genitourinary: Genitourinary: Denies hematuria Musculoskeletal: Musculoskeletal: Denies back pain and Denies limited range of motion Neurologic: Denies focal weakness and Denies convulsions Psychiatric: Psychiatric: Denies depression and Denies mood swings COUNTS INCLUDE 234 BEDS AT THE [facility] Past Medical History Medical History (Updated 12/01/20 @ 10:14 by Maya Conrad) Abnormal PET scan of colon Acute and chronic respiratory failure Acute on chronic diastolic CHF (congestive heart failure) Adenocarcinoma of sigmoid colon Atrial fibrillation with rapid ventricular response Atrial fibrillation with RVR Atrial flutter with rapid ventricular response Back pain with history of spinal surgery Bilateral pneumonia Bipolar 1 disorder Bipolar disorder CAD (coronary artery disease) Cancer of lower lobe of left lung CHF exacerbation Chronic back pain Colon cancer Congestive heart failure COPD (chronic obstructive pulmonary disease) COPD (chronic obstructive pulmonary disease) COPD (chronic obstructive pulmonary disease) COVID-19 vaccine series completed Depression Essential hypertension Fibromyalgia GERD (gastroesophageal reflux disease) GI bleed High cholesterol History of COVID-19 HTN (hypertension) Hypernatremia Hypoventilation associated with obesity Hypoxia Hypoxia Lethargy Lung cancer Lung mass Mass of colon No natural teeth Obesity Obesity hypoventilation syndrome Opacity of lung on imaging study IVY (obstructive sleep apnea) Other and unspecified hyperlipidemia Oxygen dependent Pericardial effusion Peripheral vascular disease Pleural effusion, left Pneumonia Polysubstance (including opioids) dependence, binge pattern Preoperative cardiovascular examination PTSD (post-traumatic stress disorder) Renal failure Respiratory failure with hypoxia and hypercapnia Restless legs syndrome (RLS) Restrictive lung disease Rotator cuff strain Sleep disorder Smoker UTI (urinary tract infection) Family History Family History Maternal Aunt Breast cancer Stroke COPD (chronic obstructive pulmonary disease) Maternal Aunt Breast cancer COPD (chronic obstructive pulmonary disease) Mother Uterine cancer COPD (chronic obstructive pulmonary disease) HTN (hypertension) Heart disease Maternal Uncle Stroke Paternal Grandmother Heart attack Sister Diabetes IBS (irritable bowel syndrome) Son HTN (hypertension) Daughter HTN (hypertension) Father HTN (hypertension) Brother Heart disease Surgical History Surgical History H/O colonoscopy H/O: hysterectomy History of back surgery History of bunionectomy History of esophagogastroduodenoscopy (EGD) Hx of appendectomy Hx of cholecystectomy Hx of exploratory laparotomy Status post lobectomy of lung Social History Social History Household Members: Spouse Housing: House Are you a primary laboratory animal care veterinarian to a significant other at home: No Do you presently have visiting nurse or other home services: Yes Unable to assess alcohol history related to: Unable to respond Alcohol intake: never Patient Tobacco Use Status: Former Tobacco user Cigarettes Per Day: 3 Years Smoked: 40 Second Hand Smoke Exposure: Yes Use of substances other than those prescribed or required for medical reasons: No Currently Displaying Signs/Symptoms of Drug Intoxication Withdrawal: No Have you been hit, kicked, punched, or otherwise hurt by someone within the past year? If so, by whom?: No Do you feel safe in your current relationship?: No Is there a partner from a previous relationship who is making you feel unsafe now?: No Are you made to feel afraid or neglected: No Advance Directives: Yes Advance Directives on File: Yes Advance Directives Date on File: 05/01/20 Do you have thoughts of harming others: None Do you have a plan to hurt others: No Plan Recently lost weight without trying: Unsure Nutrition Risks: No Nutritional Risk Patient : No : No Poor oral hygiene: No service: No Current occupational status: unemployed and disabled Meds Allergies Allergy/AdvReac Type Severity Reaction Status Date / Time levofloxacin [From Levaquin] Allergy Severe Diarrhea Verified 10/29/20 16:50 Penicillins Allergy Mild RASH Verified 10/29/20 16:50 venlafaxine [From Effexor] Allergy Mild RASH Verified 10/29/20 16:50 cyclobenzaprine Allergy Unknown UNKNOWN Verified 10/29/20 16:50 [Cyclobenzaprine] fentanyl [FENTANYL] Allergy Unknown HALLUCINATI Verified 10/29/20 16:50 ONS topiramate [From Topamax] Allergy Unknown UNKNOWN Verified 10/29/20 16:50 Sulfa (Sulfonamide AdvReac Severe Diarrhea Verified 10/29/20 16:50 Antibiotics) Active Medications: Current Medications Generic Name Dose Route Start Last Admin Trade Name Freq PRN Reason Stop Dose Admin Acetaminophen 650 mg 11/29/20 00:27 11/30/20 11:06 Acetaminophen 325 Mg Tablet PO 650 mg Q6H PRN Administration Pain, Mild (Pain Scale 1-3) Dextrose/Sodium Chloride 1,000 mls @ 100 mls/hr 11/29/20 13:30 11/30/20 10:34 D51/2ns IVCONT Not Given .Q10H LONG Melatonin 6 mg 11/29/20 00:27 11/29/20 20:18 Melatonin 3 Mg Tablet PO 6 mg BEDTIME PRN Administration Insomnia Pantoprazole Sodium 40 mg 11/29/20 06:30 11/30/20 05:26 Pantoprazole Sodium 40 Mg/10 Ml Vial IVPUSH 40 mg DAILY@0630 LONG Administration Sodium Chloride 3 ml 11/29/20 08:00 11/30/20 09:03 0.9 % Sodium Chloride Flush 3 Ml Syringe IVFLUSH Not Given QSHIFT [facility] Home Medications Medication Instructions Recorded Confirmed Last Taken Type amitriptyline 25 mg PO BEDTIME 04/21/20 11/29/20 11/28/20 History divalproex 500 mg PO QAM 04/21/20 11/29/20 11/28/20 History duloxetine 60 mg PO BEDTIME 04/21/20 11/29/20 11/28/20 History omeprazole 20 mg PO BID 04/21/20 11/29/20 11/28/20 History Breo Ellipta 1 inh INHALATION DAILY 05/26/20 11/29/20 11/28/20 History Incruse Ellipta 1 inh INHALATION DAILY 05/26/20 11/29/20 11/28/20 History metoprolol succinate 50 mg PO DAILY 05/26/20 11/29/20 11/28/20 History atorvastatin 20 mg PO BEDTIME 07/03/20 11/29/20 11/28/20 History divalproex 1,000 mg PO QPM 09/10/20 11/29/20 11/28/20 History ferrous sulfate 1 tab PO BID 09/10/20 11/29/20 11/28/20 History blood pressure monitor #1 ea 10/22/20 11/29/20 11/28/20 History blood pressure test kit-large #1 ea 10/22/20 11/29/20 11/28/20 History ondansetron HCl [Zofran] 4 mg PO Q6H PRN 10/22/20 11/29/20 11/28/20 History buspirone 1 - 2 tab PO TID PRN 11/29/20 11/29/20 11/28/20 History clonazepam 1 tab PO TID PRN 11/29/20 11/29/20 11/28/20 History Physical Exam Vital Signs: Vital Signs: Last Vital Signs Temp 96.8 F 11/30/20 11:39 Pulse 76 11/30/20 11:39 Resp 18 11/30/20 11:39 BP 183/88 H 11/30/20 11:39 Pulse Ox 96 11/30/20 11:39 Oxygen Flow Rate 2 11/28/20 22:30 Body Mass Index 32.2 Const: General: comfortable and no acute distress Orientation/consciousness: patient oriented x3 Neck: Neck: Yes no lymphadenopathy Resp: Auscultation: clear to auscultation bilaterally Cardio: Rhythm: regular rhythm GI: Palpation (GI): Soft to palpation, nontender and no guarding Neuro: General: patient oriented x3 Results Labs Result diagrams: 11/30/20 13:55 11/30/20 07:54 Labs: Abnormal lab results 11/29/20 11/30/20 11/30/20 Range/Units 12:23 07:54 07:54 RBC 3.75 L (4.20-5.50) X10*6/uL Hgb 10.0 L (12.0-16.0) g/dl Hct 33.5 L (37-47) % MCH 26.7 L (27.0-33.0) pg MCHC 29.9 L (31.0-35.0) g/dl RDW 17.3 H (11.0-16.0) % Plt Count 431 H (160-400) X10*3/uL MPV 8.9 L (9.4-12.3) fL ABG pCO2 at Pt Temp 68 H* (32-45) mmHg ABG pO2 at Pt Temp 67 L (83-108) mmHg ABG HCO3 43 H (22-26) mmol/L Carbon Dioxide 34 H (22-29) mmol/L BUN 5 L (9-16) mg/dL Short CBC 11/30/20 Range/Units 07:54 WBC 9.5 (4.8-10.8) X10*3/uL Hgb 10.0 L (12.0-16.0) g/dl Hct 33.5 L (37-47) % Plt Count 431 H (160-400) X10*3/uL BMP 11/30/20 07:54 Sodium 142 Potassium 3.7 Chloride 100 Carbon Dioxide 34 H BUN 5 L Creatinine 0.69 Calcium 8.5 All other labs normal. Assessment and Plan (1) Colon cancer: Status: Acute She came in because of passage of bright blood per rectum. She actually had no significant bleeding yesterday but was noted to pass bright blood again today. The source is likely her colon cancer at level 40 cm. I have recommended holding off her anticoagulation. Any hypocoagulable condition should be corrected. I have been in touch with her as an outpatient and she is aware that we are setting her up for consultation in [facility] because of her multiple medical problems. She is aware that the anesthesiologist here have advised that she be done in a tertiary care center because of her multiple comorbid conditions. I will follow along while she is in the hospital. Her hemoglobin should be followed closely as well. Procedures Date of Service Date of Service: 11/30/20
--- NOTE | 2020-11-30 13:43 | PM.IMPN ---
Subjective Subjective Date of Service: 11/30/20 Interval History: Follow up GI bleed Still having rectal bleeding Physical Exam Vital Signs: Vital Signs: Last Vital Signs Temp 96.8 F 11/30/20 11:39 Pulse 76 11/30/20 11:39 Resp 18 11/30/20 11:39 BP 183/88 H 11/30/20 11:39 Pulse Ox 96 11/30/20 11:39 Oxygen Flow Rate 2 11/28/20 22:30 Body Mass Index 32.2 Appearing in no acute distress lung sounds are clear to auscultation heart regular rate rhythm, clear S1, S2 positive bowel sounds, abdomen is soft, nontender neuro patient is alert x3, no focal deficits Objective Data Current Medications Generic Name Dose Route Start Last Admin Trade Name Charlie PRN Reason Stop Dose Admin Acetaminophen 650 mg 11/29/20 00:27 11/30/20 11:06 Acetaminophen 325 Mg Tablet PO 650 mg Q6H PRN Administration Pain, Mild (Pain Scale 1-3) Dextrose/Sodium Chloride 1,000 mls @ 100 mls/hr 11/29/20 13:30 11/30/20 13:29 D51/2ns IVCONT 100 mls/hr .Q10H LONG Administration Melatonin 6 mg 11/29/20 00:27 11/29/20 20:18 Melatonin 3 Mg Tablet PO 6 mg BEDTIME PRN Administration Insomnia Pantoprazole Sodium 40 mg 11/29/20 06:30 11/30/20 05:26 Pantoprazole Sodium 40 Mg/10 Ml Vial IVPUSH 40 mg DAILY@0630 LONG Administration Sodium Chloride 3 ml 11/29/20 08:00 11/30/20 09:03 0.9 % Sodium Chloride Flush 3 Ml Syringe IVFLUSH Not Given [facility] Labs CBC & Chem 7: 11/30/20 07:54 11/30/20 07:54 Labs: Laboratory Results - last 24 hr 11/30/20 11/30/20 07:54 07:54 MCV 89.3 MCH 26.7 L MCHC 29.9 L RDW 17.3 H Plt Count 431 H MPV 8.9 L Absolute Nucleated RBC 0.000 Nucleated RBC % (auto) 0.0 Anion Gap 12 Estim Creat Clear Calc 95.0 Estimated GFR > 60 Random Glucose 77 Calcium 8.5 Progress Note: A&P (1) Colon cancer: Status: Acute Assessment and Plan: 55-year-old female with a past medical history hypertension, hyperlipidemia, artery disease, CHF AFib on Eliquis, history cancer, restrictive lung disease, COPD, IVY, obesity, respiratory failure home oxygen, migraines, anxiety, depression, PTSD, bipolar history of lung cancer - due for surgery; presented to the with a chief complaint Bright red blood per rectum. Acute on chronic respiratory failure d/t CO2 retention likely precipitated by Lorazepam -Resolved -Avoid all sedative, continue BiPAP and repeat ABG soon and reassess Coagulopathy -check INR -Vit K if elevated BRBPR, she has a known colon cancer that is supposed to be operated on but ends in hospital everytime this is planned. Follow serial H/H, Hold Eliquis, GI/Surgery consult. -Check stat HH. History AFib -hold eliquis due to GI bleed Hypertension/hyperlipidemia CAD/CHFContinue home medications. DVT prophylaxis: SCD boots Code status: full Code Attending: Dr. Melgar Quality Stroke Does the patient have a stroke diagnosis?: No VTE Prior VTE?: No VTE Risk Level:: Medical - moderate - high VTE Device Contraindication: N/A - Device Ordered VTE Drug Contraindication: Treatment Not Indicated
[2020-11-30 14:16] LABS: Hematocrit 35.3 % (37-47); Hemoglobin 10.3 g/dl (12.0-16.0)
[2020-11-30 15:17] LABS: INTERNATIONAL NORM RATIO 1.2 (0.9-1.1); Prothrombin Time 13.8 SEC (10.8-13.0)
[2020-11-30 15:19] VITALS: BP 142/82; PULSE 102; RESP 18; TEMP 36.1; O2SAT 94
--- NOTE | 2020-11-30 15:22 | PM.DS ---
DS: Providers Provider Date of Service: 11/30/20 <Kinza Abbott NP - Last Filed: 11/30/20 16:35> Date of admission: 11/29/20 00:27 <Kinza Abbott NP - Last Filed: 11/30/20 16:35> Primary care physician: Cassandra Oconnor MD <Kinza Abbott NP - Last Filed: 11/30/20 16:35> Consults: 11/29/20 00:27 Consult to Gastroenterology Routine Consulting Provider: Rubi Sauceda Reason for consultation: BRBPR Consult to General Surgery Routine Consulting Provider: Eduardo Wray Reason for consultation: colon ca; p/w BRBPR <Kinza Abbott NP - Last Filed: 11/30/20 16:35> DS: Diagnosis Discharge Diagnosis (1) Colon cancer: Status: Acute <Kinza Abbott NP - Last Filed: 11/30/20 16:35> DS: Medications Discharge Medications Home Medications: Home Medications Medication Instructions Recorded Confirmed amitriptyline 25 mg PO BEDTIME 04/21/20 11/29/20 divalproex 500 mg PO QAM 04/21/20 11/29/20 duloxetine 60 mg PO BEDTIME 04/21/20 11/29/20 omeprazole 20 mg PO BID 04/21/20 11/29/20 Breo Ellipta 1 inh INHALATION DAILY 05/26/20 11/29/20 Incruse Ellipta 1 inh INHALATION DAILY 05/26/20 11/29/20 metoprolol succinate 50 mg PO DAILY 05/26/20 11/29/20 atorvastatin 20 mg PO BEDTIME 07/03/20 11/29/20 divalproex 1,000 mg PO QPM 09/10/20 11/29/20 ferrous sulfate 1 tab PO BID 09/10/20 11/29/20 blood pressure monitor #1 ea 10/22/20 11/29/20 blood pressure test kit-large #1 ea 10/22/20 11/29/20 ondansetron HCl [Zofran] 4 mg PO Q6H PRN 10/22/20 11/29/20 buspirone 1 - 2 tab PO TID PRN 11/29/20 11/29/20 clonazepam 1 tab PO TID PRN 11/29/20 11/29/20 Previous Rx's Medication Instructions Recorded albuterol sulfate 2 puff INHALATION Q4-6H PRN #8.5 g 04/30/20 diltiazem HCl [Cardizem CD] 240 mg PO DAILY #60 cap 11/02/20 tramadol 50 mg PO Q8H PRN #20 tab 11/02/20 magnesium oxide 400 mg PO BID #14 cap 11/11/20 <Kinza Abbott NP - Last Filed: 11/30/20 16:35> DS: Summary Hospital Course Hospital Course: HP as per admitting provider 55-year-old female with a past medical history, hyperlipidemia, coronary artery disease, CHF, history of lung mass, hx Colon cancer- due for surgery, AFib on Eliquis,obesity, IVY, chronic respiratory failure home oxygen restrictive lung disease COPD anxiety, depression, PTSD, bipolar, history of COVID-19 infection, presented to the with a chief complaint bright red blood per rectum. patient denies any chest pain palpitations lightheadedness dizziness. denies any abdominal pain, nausea vomiting or diarrhea. Denies any urinary symptoms Review of all other is negative mentioned above ER course: For ER team patient vitals are stable, hemoglobin 9.8 ; admitted to the hospital for further management . Bright red blood per rectum. She has a known hx of colon cancer with planned procedure at [facility]. Her HH has been stable. she was seen and evaluated by General surgery with recommendation to follow-up at [facility] for planned surgical procedure. recheck H&H in 2 days. Acute on chronic respiratory failure d/t CO2 retention likely precipitated by Lorazepam. treated with BiPAP and bronchodilators. Continue home O2. Resolved Coagulopathy. Follow CBC and INR as outpatient. Atrial fibrillation. No exacerbation during admission. Eliquis on hold due to GI bleed. Continue to hold Eliquis until surgical procedure at [facility] Attending Attestation: Patient seen and examined independently and I was present during villalta portion of E/M service. Agree with Nav Abbott NP's history, physical, assessment, and plan. <Kinza Abbott NP - Last Filed: 11/30/20 16:35> Time Spent with Patient Time attestation: Total time spent providing and/or coordinating discharge services: <Kinza Abbott NP - Last Filed: 11/30/20 16:35> Discharge coordination time: Greater than 30 minutes <Kinza Abbott NP - Last Filed: 11/30/20 16:35> Quality: Stroke Does the patient have a stroke diagnosis?: No <Kinza Abbott NP - Last Filed: 11/30/20 16:35> Physical Exam Vital Signs: Vital Signs: Last Vital Signs Temp 96.8 F 11/30/20 11:39 Pulse 76 11/30/20 11:39 Resp 18 11/30/20 11:39 BP 183/88 H 11/30/20 11:39 Pulse Ox 96 11/30/20 11:39 Oxygen Flow Rate 2 11/28/20 22:30 Body Mass Index 32.2 <Kinza Abbott NP - Last Filed: 11/30/20 16:35> Appearing in no acute distress head is normocephalic atraumatic eyes pupils are PERRLA sclera is anicteric mouth throat mucous membranes are intact and moist neck is supple no lymphadenopathy, no JVD noted lung sounds are clear to auscultation heart regular rate rhythm, clear S1, S2 positive bowel sounds, abdomen is soft, nontender neuro patient is alert x3, no focal deficits <Kinza Abbott NP - Last Filed: 11/30/20 16:35> DS: Data Data Completed and Pending Completed studies during hospitalization [Text1]: Procedures Assistance with Respiratory Ventilation, Less than 24 Consecutive Hours, Continuous Positive Airway Pressure (11/18/20) Excision of Left Lower Lung Lobe, Percutaneous Approach, Diagnostic (07/03/20) <Kinza Abbott NP - Last Filed: 11/30/20 16:35> Labs on day of discharge: Laboratory Results - last 24 hr 11/30/20 11/30/20 11/30/20 07:54 07:54 13:55 WBC 9.5 RBC 3.75 L Hgb 10.0 L 10.3 L Hct 33.5 L 35.3 L MCV 89.3 MCH 26.7 L MCHC 29.9 L RDW 17.3 H Plt Count 431 H MPV 8.9 L Absolute Nucleated RBC 0.000 Nucleated RBC % (auto) 0.0 PT INR Sodium 142 Potassium 3.7 Chloride 100 Carbon Dioxide 34 H Anion Gap 12 BUN 5 L Creatinine 0.69 Estim Creat Clear Calc 95.0 Estimated GFR > 60 Random Glucose 77 Calcium 8.5 11/30/20 14:58 WBC RBC Hgb Hct MCV MCH MCHC RDW Plt Count MPV Absolute Nucleated RBC Nucleated RBC % (auto) PT 13.8 H INR 1.2 H Sodium Potassium Chloride Carbon Dioxide Anion Gap BUN Creatinine Estim Creat Clear Calc Estimated GFR Random Glucose Calcium <Kinza Abbott NP - Last Filed: 11/30/20 16:35> Discharge Plan Discharge Anticipated Discharge Date/Time: 11/30/20 15:18 <Kinza Abbott NP - Last Filed: 11/30/20 16:35> Patient Disposition: Home, Self-Care <Kinza Abbott NP - Last Filed: 11/30/20 16:35> Discharge Diagnosis: GI bleed colon cancer <Kinza Abbott NP - Last Filed: 11/30/20 16:35> GI bleed colon cancer <Matheus Melgar MD - Last Filed: 12/01/20 09:20> Referrals: Cassandra Oconnor MD [Primary Care Provider] - 1 Week <Kinza Abbott NP - Last Filed: 11/30/20 16:35> Discharge Medications: Continued magnesium oxide 400 mg magnesium capsule 400 mg PO BID Qty: 14 RF: 0 amitriptyline 25 mg tablet 25 mg PO BEDTIME RF: 0 divalproex 500 mg tablet extended release 24 hr 500 mg PO QAM RF: 0 omeprazole 20 mg capsule,delayed release(DR/EC) 20 mg PO BID RF: 0 duloxetine 60 mg capsule,delayed release(DR/EC) 60 mg PO BEDTIME RF: 0 albuterol sulfate 90 mcg/actuation HFA aerosol inhaler 2 puff inhalation Q4-6H PRN (Reason: shortness of breath or wheezing) Qty: 8.5 RF: 0 metoprolol succinate 50 mg Tablet Extended Release 24 Hr 50 mg PO DAILY RF: 0 Breo Ellipta 100-25 mcg/dose Blister With Device 1 inh INHALATION DAILY RF: 0 Incruse Ellipta 62.5 mcg/actuation Blister With Device 1 inh INHALATION DAILY RF: 0 ondansetron HCl [Zofran] 4 mg tablet 4 mg PO Q6H PRN (Reason: Nausea) RF: 0 diltiazem HCl [Cardizem CD] 240 mg capsule,extended release 24hr 240 mg PO DAILY Qty: 60 RF: 0 tramadol 50 mg Tablet 50 mg PO Q8H PRN (Reason: Pain, Severe (Pain Scale 7-10)) Qty: 20 RF: 0 atorvastatin 20 mg Tablet 20 mg PO BEDTIME RF: 0 ferrous sulfate 325 mg (65 mg iron) tablet 1 tab PO BID RF: 0 divalproex 500 mg tablet extended release 24 hr 1,000 mg PO QPM RF: 0 buspirone 5 mg tablet 1 - 2 tab PO TID PRN (Reason: anxiety) RF: 0 clonazepam 0.5 mg tablet 1 tab PO TID PRN (Reason: anxiety) RF: 0 (DME) blood pressure test kit-large Kit See Rx Instructions ea .ROUTE DIRECTED Qty: 1 RF: 0 (DME) blood pressure monitor Kit See Rx Instructions .ROUTE .MEDSUPPLY Qty: 1 RF: 0 Discontinued Eliquis 5 mg tablet 5 mg PO BID RF: 0 <Kinza Abbott NP - Last Filed: 11/30/20 16:35> Discharge Orders: Discharge Order (Routine); Ordered 11/30/20 Ordered By: Kinza Abbott <Kinza Abbott NP - Last Filed: 11/30/20 16:35> Diet: advance to usual diet <Kinza Abbott NP - Last Filed: 11/30/20 16:35> advance to usual diet <Matheus Melgar MD - Last Filed: 12/01/20 09:20> Activity on Discharge: As tolerated <Kinza Abbott NP - Last Filed: 11/30/20 16:35> As tolerated <Matheus Melgar MD - Last Filed: 12/01/20 09:20> Stand Alone Forms: Patient Portal Discharge page <Kinza Abbott NP - Last Filed: 11/30/20 16:35> Other Ambulatory Orders: Complete Blood Count no Diff (Routine) Timeframe: 2 Days Facility: [facility] - Location: Laboratory Ordered By: Kinza Abbott Prothrombin Time INR (Routine) Timeframe: 2 Days Facility: [facility] - Location: Laboratory Ordered By: Kinza Abbott <Kinza Abbott NP - Last Filed: 11/30/20 16:35> Care Plan Goals: resolution of gastrointestinal bleeding <Kinza Abbott NP - Last Filed: 11/30/20 16:35> Health Concerns: gastrointestinal bleeding colon cancer <Kinza Abbott NP - Last Filed: 11/30/20 16:35> Plan of Treatment: follow-up with [facility] for upcoming procedure you will be called for the date repeat hemoglobin and hematocrit in 2 days hold your Eliquis due to GI bleeding and upcoming procedure, last dose was 11/28/2020 <Kinza Abbott NP - Last Filed: 11/30/20 16:35> Assessment: see discharge summary <Kinza Abbott NP - Last Filed: 11/30/20 16:35> Discharge Date/Time: 11/30/20 15:48 <Kinza Abbott NP - Last Filed: 11/30/20 16:35>
--- NOTE | 2020-11-30 15:30 | MHC.CM.PN ---
Pt cleared to DC home today with no services. Pt to arrange transport.
--- NOTE | 2020-11-30 15:51 | PC.NURSE ---
Skin Assessment completed today. No skin issues found
== END 2020-11-30 15:48 | disposition home or self-care (01) | DRG 377 ==
LOC: HO.ED 11-29 00:34 → HO.EDOVER 11-29 01:02 → HO.IMC 11-29 16:50
PROVIDERS: Internal Medicine; Nurse Practitioner Acute Care; Admitting Provider Hospitalist; Emergency Provider Internal Medicine; PCP Internal Medicine; Visit Provider Family Medicine
DX: K62.5 Hemorrhage of anus and rectum (principal); J96.20 Acute and chronic respiratory failure, unspecified whether with hypoxia or hypercapnia; C18.7 Malignant neoplasm of sigmoid colon; D68.9 Coagulation defect, unspecified; F31.9 Bipolar disorder, unspecified; I25.10 Atherosclerotic heart disease of native coronary artery without angina pectoris; E78.5 Hyperlipidemia, unspecified; I48.91 Unspecified atrial fibrillation; Z20.822 Contact with and (suspected) exposure to COVID-19; Z87.891 Personal history of nicotine dependence; Z88.0 Allergy status to penicillin; Z88.2 Allergy status to sulfonamides; Z79.899 Other long term (current) drug therapy
CPT/HCPCS: 36415; 36600; 71045; 80048; 80076; 82272; 83690; 85014; 85018; 85025; 85027; 85610; 85730; 86850; 86900; 86901; 87635; 93005; 94660; 99285

== ENCOUNTER 2020-12-03 10:18 | Outpatient (REF) | payer MEDICARE, MEDICAID, SELFPAY ==
[2020-12-03 12:04] LABS: Hematocrit 36.7 % (37-47); Hemoglobin 10.4 g/dl (12.0-16.0); Mean Corpuscular HGB Conc 28.3 g/dl (31.0-35.0); Mean Corpuscular Volume 91.8 fL (80-98); Platelet Count 366 X10*3/uL (160-400); Red Cell Distribution Width 18.4 % (11.0-16.0); White Blood Count 8.4 X10*3/uL (4.8-10.8)
[2020-12-03 12:09] LABS: INTERNATIONAL NORM RATIO 0.9 (0.9-1.1)
== END 2020-12-03 10:19 | disposition home or self-care (01) ==
LOC: HO.LAB 10:18
PROVIDERS: PCP Internal Medicine; Visit Provider Nurse Practitioner Acute Care
DX: K92.1 Melena (principal)
CPT/HCPCS: 36415; 85027; 85610

== ENCOUNTER → 2021-03-11 12:05 | Outpatient (REF) | payer MEDICAID, SELFPAY ==
--- NOTE | 2021-03-11 12:12 | ECG_ITS ---
Test Reason : preproc exam Blood Pressure : / mmHG Vent. Rate : 086 BPM Atrial Rate : 086 BPM P-R Int : 152 ms QRS Dur : 088 ms QT Int : 372 ms P-R-T Axes : 079 072 069 degrees QTc Int : 445 ms Normal sinus rhythm Minimal voltage criteria for LVH, may be normal variant ( Sokolow-Juarez ) Borderline ECG When compared with ECG of 28-NOV-2020 23:48, Nonspecific T wave abnormality no longer evident in Inferior leads Nonspecific T wave abnormality no longer evident in Anterior leads Referred By: Jazmine Conroy Electronically Signed By:BRUCE PATEL
[2021-03-11 12:45] LABS: Hematocrit 41.2 % (37-47); Hemoglobin 12.8 g/dl (12.0-16.0); Mean Corpuscular HGB Conc 31.1 g/dl (31.0-35.0); Mean Corpuscular Hemoglobin 28.3 pg (27.0-33.0); Mean Corpuscular Volume 91.2 fL (80-98); Mean Platelet Volume 9.4 fL (9.4-12.3); Platelet Count 386 X10*3/uL (160-400); Red Blood Count 4.52 X10*6/uL (4.20-5.50); Red Cell Distribution Width 14.1 % (11.0-16.0); White Blood Count 14.2 X10*3/uL (4.8-10.8)
[2021-03-11 13:19] LABS: Alanine Aminotransferase < 6 U/L (0-31); Albumin Level 3.9 g/dL (3.5-5.0); Alkaline Phosphatase 92 U/L (39-117); Anion Gap 16 (12-20); Aspartate Amino Transferase 11 U/L (5-31); Bilirubin Total < 0.2 mg/dL (0.0-1.0); Blood Urea Nitrogen 15 mg/dL (9-16); Calcium 9.3 mg/dL (8.4-10.2); Carbon Dioxide 26 mmol/L (22-29); Chloride 99 mmol/L (96-108); Estimated Glomerular Filt Rate > 60; Glucose Random 104 mg/dL (60-115); Potassium 4.3 mmol/L (3.3-5.1); Sodium 137 mmol/L (135-145); Total Protein 7.6 g/dL (6.5-8.0)
== END ==
LOC: HO.CARD 12:05
PROVIDERS: Absent Provider Internal Medicine; PCP Internal Medicine; Visit Provider Family Medicine
DX: Z01.818 Encounter for other preprocedural examination (principal)
CPT/HCPCS: 36415; 80053; 85027; 93005

== ENCOUNTER 2021-03-22 13:05 | Outpatient (REF) | payer MEDICAID, SELFPAY ==
--- NOTE | ~2021-03-22 | CT_ITS ---
EXAMINATION: CT CHEST WITHOUT CONTRAST CLINICAL INFORMATION: Left lower lobe lung cancer. COMPARISON: 10/05/2020, 09/09/2020, and 04/21/2020 TECHNIQUE: Multidetector volumetric CT imaging of the chest was done. Axial MIP volume rendering provided. Sagittal and coronal reformatted images were obtained. This CT examination was performed using dose optimization techniques as appropriate, variously including the following: *Automated exposure control *Adjustment of mA and/or kV according to patient size (this includes techniques or standardized protocols for targeted exams where dose is matched to indication/reason for exam; i.e. extremities or head) *Use of iterative reconstruction technique DLP: 197 mGy-cm FINDINGS: LUNGS: The central airways are patent. Patient is status post left lower lobectomy. No significant bronchial wall thickening or bronchiectasis. There are mild changes of centrilobular emphysema seen bilaterally. There is chronic pleural-parenchymal scarring seen at the left lung base. There are a few sub-4 mm densities present such as within the right upper lobe on image 221 of 603. MEDIASTINUM: There is a 1.1 cm calcified nodule left thyroid gland. This appears stable compared to study of 04/21/2020. The heart is mildly enlarged. Coronary artery calcification is present. No pericardial effusion. No thoracic aortic aneurysm. There is what appears to be hemodynamically significant stenoses from calcified plaque involving the origin of the aortic arch vessels with possible occlusion of the right innominate artery. There is a 1 cm short access right precarinal lymph node. There is a 1 cm short axis aortopulmonic window lymph node. There is a 7 mm short axis left prevascular space lymph node. No definite hilar lymphadenopathy is appreciated, however, without IV contrast, evaluation is somewhat limited. Due to streak artifact from previous CT angiogram of 09/23/2020, it is difficult to compare mediastinal lymph nodes. I do not appreciate any significant change in mediastinum compared to study of 09/09/2020. PLEURA: No definite pleural effusion is identified. There is pleural thickening related to previous surgery. The previously noted loculated left pleural effusion has resolved. AXILLA: No lymphadenopathy. UPPER ABDOMEN: Unremarkable. OSSEOUS STRUCTURES: No suspicious destructive bony lesions are identified. Severe degenerative change of the left shoulder joint. Old healed left rib fractures which may be postoperative in nature. There is multilevel degenerative disc disease with spurring seen throughout the thoracic spine. CT/CT chest wo con IMPRESSION: Status post left lower lobectomy with stable appearance of prominent mediastinal lymph nodes. Hemodynamically significant aortic arch calcified plaque.
== END 2021-03-22 13:06 | disposition home or self-care (01) ==
LOC: HO.CT 13:05
PROVIDERS: PCP Internal Medicine; Visit Provider Surgery
DX: C34.32 Malignant neoplasm of lower lobe, left bronchus or lung (principal)
CPT/HCPCS: 71250

== ENCOUNTER → 2021-04-09 10:30 | Outpatient (BNVA) | payer MEDICAID, SELFPAY | PROVIDERS: PCP Internal Medicine; Visit Provider Surgery | DX: C34.32 Malignant neoplasm of lower lobe, left bronchus or lung (principal); C18.7 Malignant neoplasm of sigmoid colon; Z79.899 Other long term (current) drug therapy; Z86.16 Personal history of COVID-19; Z87.891 Personal history of nicotine dependence | CPT/HCPCS: 99212 ==

== ENCOUNTER 2021-04-14 14:44 | Outpatient (REF) | payer MEDICAID, SELFPAY ==
[2021-04-15 09:07] LABS: CDiff Gene PCR NEGATIVE (Negative)
== END 2021-04-14 14:45 | disposition home or self-care (01) ==
LOC: HO.HVNA 14:44
PROVIDERS: Visit Provider Surgery
DX: C18.7 Malignant neoplasm of sigmoid colon (principal); C34.32 Malignant neoplasm of lower lobe, left bronchus or lung
CPT/HCPCS: 36415; 87493

== ENCOUNTER → 2021-06-30 10:42 | Outpatient (BNVA) | payer MEDICAID, SELFPAY | PROVIDERS: PCP Internal Medicine; Referring Provider Internal Medicine; Visit Provider Internal Medicine | DX: I48.0 Paroxysmal atrial fibrillation (principal); I10 Essential (primary) hypertension; I73.9 Peripheral vascular disease, unspecified; E78.5 Hyperlipidemia, unspecified; J44.9 Chronic obstructive pulmonary disease, unspecified | CPT/HCPCS: 99212 ==

== ENCOUNTER 2021-08-04 13:59 | Outpatient (REF) | payer MEDICAID, SELFPAY ==
--- NOTE | ~2021-08-04 | MM_ITS ---
EXAMINATION: MM SCREENING DIGITAL BREAST TOMOSYNTHESIS, BILATERAL CLINICAL INFORMATION: Screening. Asymptomatic. The lifetime risk of breast cancer based on the Tyrer-Cuzick Model is 8%. COMPARISON: Mammography: 09/26/2016, 07/04/2014 TECHNIQUE: Digital breast tomosynthesis is performed in both the craniocaudal and mediolateral oblique views along with computer-aided detection (CAD). Synthesized 2D images are generated from the tomosynthesis. Additional right MLO view is provided. FINDINGS: The breasts are almost entirely fatty (ACR BI-RADS breast composition Category a). Background stromal and fibroglandular densities are stable. There are no significant masses, abnormal calcifications, or other abnormalities. Parenchymal pattern is similar to prior studies. There are no significant changes. MM/MM tomosynthesis screening BI IMPRESSION: No mammographic evidence of malignancy. ASSESSMENT: BI-RADS 1: Negative RECOMMENDATION: Routine annual mammography screening. This patient's information was entered into a reminder system with a target due date for their next mammogram.
== END 2021-08-04 14:00 | disposition home or self-care (01) ==
LOC: HO.MAMMO 13:59
PROVIDERS: PCP Nurse Practitioner Family; Visit Provider Nurse Practitioner Family
DX: Z12.31 Encounter for screening mammogram for malignant neoplasm of breast (principal)
CPT/HCPCS: 77063; 77067

== ENCOUNTER 2021-09-14 12:52 | Outpatient (REF) | payer MEDICAID, SELFPAY ==
--- NOTE | ~2021-09-14 | CT_ITS ---
EXAMINATION: CT CHEST WITHOUT CONTRAST CLINICAL INFORMATION: Malignant neoplasm left lower lobe COMPARISON: Previous chest CT scans most recent March 2021 TECHNIQUE: Multidetector volumetric CT imaging of the chest was done. Axial MIP volume rendering provided. Sagittal and coronal reformatted images were obtained. This CT examination was performed using dose optimization techniques as appropriate, variously including the following: *Automated exposure control *Adjustment of mA and/or kV according to patient size (this includes techniques or standardized protocols for targeted exams where dose is matched to indication/reason for exam; i.e. extremities or head) *Use of iterative reconstruction technique DLP: 396 mGy-cm FINDINGS: LUNGS: There are stable postsurgical changes to the left hemithorax following left lower lobe lobectomy. There is a 2 mm right upper lobe nodule axial image 161 series 5 that is stable. There are several new left lobe nodules at the left lung base. There is a 3 mm left upper lobe nodule axial image 228 series 5. There is a 3 mm left upper lobe nodule axial image 255. There is a 5 mm left upper lobe nodule axial image 287 series 5. There is a 3 mm left upper lobe nodule axial image 295 series 5. There is question of a nodule versus atelectasis in the left upper lobe measuring roughly 4 mm axial image 296 series 5. These are all new from exam. There is more inferior chronic scarring or subsegmental atelectasis at the left lung base that is stable. MEDIASTINUM: The heart does not appear enlarged. There is coronary artery and aortic valve calcification. There is no pericardial effusion. There is atherosclerotic disease. The thoracic aorta is normal in caliber. There is a small calcified left thyroid nodule that appears stable. There are small mediastinal lymph nodes. There may be slight interval increase in a right tracheal esophageal groove lymph node measuring 8 mm in short axis axial image 7 series compared to 5 mm on March 2021 exam. Lymph nodes otherwise appear unchanged. PLEURA: There is minimal pleural thickening at the left lung base that is unchanged. No pleural effusion. AXILLA: No chest wall mass. No enlarged axillary lymph nodes. UPPER ABDOMEN: The gallbladder has been removed. There are postsurgical changes to the upper abdominal wall. OSSEOUS STRUCTURES: There are degenerative changes of the spine. There are postsurgical changes to the left lower ribs. CT/CT chest wo con IMPRESSION: Postsurgical changes following left lower lobe lobectomy. New small left pulmonary nodules at the left lung base. Some appear clustered. Infectious or inflammatory and neoplastic process should be considered. Short-term follow-up recommended. Small mediastinal lymph nodes. There is slight interval increase in a right tracheoesophageal groove lymph node. Lymph nodes otherwise appears stable. Coronary artery and aortic valve calcification. Fleischner guidelines were followed.
== END 2021-09-14 12:53 | disposition home or self-care (01) ==
LOC: HO.CT 12:52
PROVIDERS: Visit Provider Surgery
DX: C34.32 Malignant neoplasm of lower lobe, left bronchus or lung (principal)
CPT/HCPCS: 71250

== ENCOUNTER → 2021-09-21 14:31 | Outpatient (BNVA) | payer MEDICAID, SELFPAY | PROVIDERS: PCP Nurse Practitioner Family; Visit Provider Internal Medicine | DX: J44.9 Chronic obstructive pulmonary disease, unspecified (principal); G47.33 Obstructive sleep apnea (adult) (pediatric); J96.21 Acute and chronic respiratory failure with hypoxia; J96.22 Acute and chronic respiratory failure with hypercapnia; C34.32 Malignant neoplasm of lower lobe, left bronchus or lung; C18.7 Malignant neoplasm of sigmoid colon; F17.210 Nicotine dependence, cigarettes, uncomplicated; Z93.3 Colostomy status | CPT/HCPCS: 99212 ==

== ENCOUNTER 2021-10-08 10:46 | Outpatient (REF) | payer MEDICAID, SELFPAY ==
[2021-10-08 11:51] LABS: Hematocrit 43.4 % (37.0-47.0); Hemoglobin 14.1 g/dl (12.0-16.0); Mean Corpuscular HGB Conc 32.5 g/dl (31.0-35.0); Mean Corpuscular Hemoglobin 30.6 pg (27.0-33.0); Mean Corpuscular Volume 94.1 fL (80.0-98.0); Mean Platelet Volume 9.2 fL (9.4-12.3); Platelet Count 248 X10*3/uL (160-400); Red Blood Count 4.61 X10*6/uL (4.20-5.50); Red Cell Distribution Width 13.3 % (11.0-16.0); White Blood Count 13.9 X10*3/uL (4.8-10.8)
[2021-10-08 11:57] LABS: Estimated Average Glucose 108 mg/dL; Hemoglobin A1c % 5.4 %
[2021-10-08 12:27] LABS: Alanine Aminotransferase 11 U/L (0-31); Albumin Level 3.8 g/dL (3.5-5.0); Alkaline Phosphatase 114 U/L (39-117); Anion Gap 16 (12-20); Aspartate Amino Transferase 24 U/L (5-31); Bilirubin Total 0.3 mg/dL (0.0-1.0); Blood Urea Nitrogen 13 mg/dL (9-16); Calcium 9.2 mg/dL (8.4-10.2); Carbon Dioxide 24 mmol/L (22-29); Chloride 101 mmol/L (96-108); Cholesterol 202 mg/dL; Estimated Glomerular Filt Rate > 60; Glucose Fasting 90 mg/dL (60-99); HDL Cholesterol 49 mg/dL; Iron 64 mcg/dL (30-160); LDL Cholesterol Calculated 81 mg/dl; Percent Iron Saturation 18 % (15-50); Potassium 3.6 mmol/L (3.3-5.1); Sodium 137 mmol/L (135-145); Total Iron Binding Capacity 363 mcg/dL (228-428); Total Protein 7.2 g/dL (6.5-8.0); Triglycerides 360 mg/dL; Unsaturated Iron Binding 299 ug/dL
[2021-10-08 12:52] LABS: TSH reflex Free T4 1.39 uIU/mL (0.32-4.0)
== END 2021-10-08 10:47 | disposition home or self-care (01) ==
LOC: HO.LAB 10:46
PROVIDERS: PCP Nurse Practitioner Family; Visit Provider Surgery
DX: D50.9 Iron deficiency anemia, unspecified (principal); F41.9 Anxiety disorder, unspecified; I10 Essential (primary) hypertension; I48.0 Paroxysmal atrial fibrillation; E78.00 Pure hypercholesterolemia, unspecified; E11.9 Type 2 diabetes mellitus without complications; C34.32 Malignant neoplasm of lower lobe, left bronchus or lung
CPT/HCPCS: 36415; 80053; 80061; 83036; 83540; 84443; 85027; 99212

== ENCOUNTER 2022-01-25 14:36 | Outpatient (REF) | payer MEDICAID, SELFPAY ==
[2022-01-25 15:23] LABS: Hemoglobin 14.8 g/dl (12.0-16.0); Mean Corpuscular HGB Conc 32.9 g/dl (31.0-35.0); Mean Corpuscular Hemoglobin 32.2 pg (27.0-33.0); Mean Platelet Volume 9.6 fL (9.4-12.3); Platelet Count 256 X10*3/uL (160-400); Red Blood Count 4.59 X10*6/uL (4.20-5.50); Red Cell Distribution Width 13.1 % (11.0-16.0); White Blood Count 13.3 X10*3/uL (4.8-10.8)
[2022-01-25 15:46] LABS: Alanine Aminotransferase 13 U/L (0-31); Albumin Level 3.7 g/dL (3.5-5.0); Alkaline Phosphatase 112 U/L (39-117); Anion Gap 19 (12-20); Aspartate Amino Transferase 32 U/L (5-31); Bilirubin Total 0.3 mg/dL (0.0-1.0); Blood Urea Nitrogen 9 mg/dL (9-16); Calcium 8.5 mg/dL (8.4-10.2); Carbon Dioxide 21 mmol/L (22-29); Chloride 102 mmol/L (96-108); Cholesterol 207 mg/dL; Estimated Glomerular Filt Rate > 60; Glucose Random 99 mg/dL (60-115); HDL Cholesterol 45 mg/dL; Potassium 4.1 mmol/L (3.3-5.1); Sodium 138 mmol/L (135-145); Total Protein 7.2 g/dL (6.5-8.0); Triglycerides 551 mg/dL
== END 2022-01-25 14:37 | disposition home or self-care (01) ==
LOC: HO.CT 14:36
PROVIDERS: Absent Provider Nurse Practitioner Family; PCP Nurse Practitioner Family; Visit Provider Internal Medicine
DX: D50.9 Iron deficiency anemia, unspecified (principal); I10 Essential (primary) hypertension; E78.00 Pure hypercholesterolemia, unspecified
CPT/HCPCS: 36415; 80053; 80061; 85027

== ENCOUNTER 2022-02-01 09:27 | Outpatient (REF) | payer MEDICAID, SELFPAY ==
--- NOTE | ~2022-02-01 | CT_ITS ---
EXAMINATION: CT CHEST WITH CONTRAST CLINICAL INFORMATION: Malignant neoplasm of left lower lobe bronchus COMPARISON: CT chest 09/14/2021 03/22/2021 and 10/05/2020 TECHNIQUE: Multidetector volumetric CT imaging of the chest was obtained after the administration of 50 mL of Omnipaque 350 intravenous contrast without immediate adverse reactions. Axial MIP volume rendering provided. Sagittal and coronal reformatted images were obtained. This CT examination was performed using dose optimization techniques as appropriate, variously including the following: *Automated exposure control *Adjustment of mA and/or kV according to patient size (this includes techniques or standardized protocols for targeted exams where dose is matched to indication/reason for exam; i.e. 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 LUNGS: There is a loss of left lung volume status post surgical changes, left hemithorax. Again visualized are a few scattered pulmonary nodules. A 2 mm pulmonary nodule, right upper lobe centrally at the level of argenis, image 70/9. Previously seen left lower lobe 3 mm nodule left upper lobe is barely visualized on axial image 87/9, 3 mm and a 5 mm nodule seen in left upper lobe posteriorly on previous CT on image 255/5 and 287/5 are not visualized at this time. Question nodule versus focal atelectatic from previous study on image 295/5 has resolved. There is band-like atelectasis or postsurgical changes, left lower lobe at the CP angle. No new nodules are seen at this time. MEDIASTINUM: The thyroid lobes are symmetrical and unremarkable. The central trachea and the bronchi are widely patent. Heart size and pulmonary vascularity is normal. There are small shotty mediastinal lymph nodes similar to previous study measuring 1.2 x 0.8 cm pretracheal and 1.4 x 0.8 cm para-aortic axial image 20/3. There are coronary artery calcifications present. No pericardial effusion seen. PLEURA: There is no pleural effusion. No pleural mass or thickening. AXILLA: Small scattered lymph nodes seen in the axilla. UPPER ABDOMEN: Visualized liver, spleen and adrenal glands unremarkable. There is a 6 mm calcification or calculi in mid pancreas, appears to be intraductal on sagittal image 47/6 with distal pancreatic duct mild dilation. The size of calcification or calculi is unchanged. However, the distal ductal dilatation is more obvious at this time. OSSEOUS STRUCTURES: Moderate spondylosis throughout dorsal spine. No aggressive lytic or sclerotic process seen. CT/CT chest w IV con IMPRESSION: 1. Postsurgical changes, left hemithorax, with loss of left lung volume and mild ipsilateral mediastinal shift. 2. Multiple ground-glass pulmonary nodules seen in the left lower lobe, at least 3 of them have resolved or barely visible. No new nodules seen. 3. No abnormal size mediastinal or axillary lymph nodes seen. Previous benign-appearing lymph nodes are stable. 4. Small calcification or stone in the body of the pancreas with distal pancreatic ductal dilatation suspicious for a stone. It is unchanged to the last CT chest exam 09/14/2021 but progressed since 03/22/2021. Consider MRI pancreas. Fleischner guidelines were followed.
[2022-02-01 11:13] LABS: Cholesterol 224 mg/dL; HDL Cholesterol 49 mg/dL; Triglycerides 628 mg/dL
[2022-02-01] MEDS: iohexoL 350 MG/ML 100 ML INFUS..BTL IV (11:17)
== END 2022-02-01 09:28 | disposition home or self-care (01) ==
LOC: HO.CT 09:27
PROVIDERS: Absent Provider Nurse Practitioner Family; PCP Nurse Practitioner Family; Visit Provider Internal Medicine
DX: C34.32 Malignant neoplasm of lower lobe, left bronchus or lung (principal); E78.00 Pure hypercholesterolemia, unspecified
CPT/HCPCS: 36415; 71260; 80061; 99212; Q9967

== ENCOUNTER → 2022-02-16 13:57 | Outpatient (BNVA) | payer MEDICAID, SELFPAY | PROVIDERS: PCP Nurse Practitioner Family; Referring Provider Nurse Practitioner Family; Visit Provider Internal Medicine | DX: Z01.810 Encounter for preprocedural cardiovascular examination (principal); I48.0 Paroxysmal atrial fibrillation; I25.10 Atherosclerotic heart disease of native coronary artery without angina pectoris; I10 Essential (primary) hypertension; I73.9 Peripheral vascular disease, unspecified; E78.5 Hyperlipidemia, unspecified; J44.9 Chronic obstructive pulmonary disease, unspecified; F17.210 Nicotine dependence, cigarettes, uncomplicated; Z79.01 Long term (current) use of anticoagulants; Z79.899 Other long term (current) drug therapy | CPT/HCPCS: 93005; 99212 ==

== ENCOUNTER 2022-03-07 14:26 | Outpatient (REF) | payer MEDICAID, SELFPAY | END 2022-03-07 14:27 | disposition home or self-care (01) | LOC: HO.MRI 14:26 | PROVIDERS: Visit Provider Internal Medicine | DX: C18.7 Malignant neoplasm of sigmoid colon (principal); Q45.3 Other congenital malformations of pancreas and pancreatic duct | CPT/HCPCS: 74183; A9585 ==

== ENCOUNTER → 2022-04-27 12:30 | Outpatient (BNVA) | payer MEDICAID, SELFPAY | PROVIDERS: PCP Nurse Practitioner Family; Referring Provider Nurse Practitioner Family; Visit Provider Internal Medicine | DX: K86.1 Other chronic pancreatitis (principal); C18.7 Malignant neoplasm of sigmoid colon | CPT/HCPCS: 99202 ==

== ENCOUNTER → 2022-05-09 13:56 | Outpatient (BNVA) | payer MEDICAID, SELFPAY | PROVIDERS: PCP Nurse Practitioner Family; Referring Provider Nurse Practitioner Family; Visit Provider Internal Medicine | DX: Z71.83 Encounter for nonprocreative genetic counseling (principal) | CPT/HCPCS: 99211 ==

== ENCOUNTER 2022-05-27 08:10 | Outpatient (REF) | payer MEDICAID, SELFPAY ==
--- NOTE | ~2022-05-27 | CT_ITS ---
EXAMINATION: CT FACIAL BONES WITH CONTRAST CLINICAL INFORMATION: 56-year-old with suspicion for right upper cheek mass. COMPARISON: None TECHNIQUE: Volumetric CT imaging of the facial bones was done with 2-D multiplanar reformatted reconstructions following the intravenous administration of 85 mL of Omnipaque [address] examination was performed using dose optimization techniques as appropriate, variously including the following: *Automated exposure control *Adjustment of mA and/or kV according to patient size (this includes techniques or standardized protocols for targeted exams where dose is matched to indication/reason for exam; i.e. extremities or head) *Use of iterative reconstruction technique DLP: 202 mGy-cm FINDINGS: The fat pads of both cheeks demonstrate normal adipose tissue attenuation, with no evidence for focal mass or abnormal enhancement. The parotid glands demonstrate some fatty replacement, but are otherwise normal in attenuation without focal lesion. The visualized submandibular glands also demonstrate no focal lesion. The osseous structures appear intact with no evidence for bony mass. There is nasal septal deviation to the right with nodular thickening of the inferior turbinates and left middle turbinate and some nodularity along the nasal septum. There are bilateral middle turbinate lewis bullosa. The paranasal sinuses are well pneumatized with minor mucosal thickening along the floor of the left maxillary sinus. The intraorbital soft tissue structures are symmetric and within normal limits. The visualized intracranial contents demonstrate no acute process. Some opacified left mastoid air cells are noted near the mastoid tip with some sclerotic changes in the left mastoid tip which may reflect chronic inflammatory disease in this location. The visualized visceral spaces appear within normal limits. The buccal spaces, base of the tongue and visualized floor of the mouth structures are symmetric. There is minor TMJ arthropathy, left more than right. CT/CT facial bones w IV con IMPRESSION: 1. No definite evidence for mass lesion as questioned clinically. 2. Nasal cavity findings as discussed above. 3. Minor bilateral TMJ arthropathy.
[2022-05-27] MEDS: iohexoL 350 MG/ML 100 ML INFUS..BTL IV (09:44)
== END 2022-05-27 08:11 | disposition home or self-care (01) ==
LOC: HO.CT 08:10
PROVIDERS: PCP Nurse Practitioner Family; Visit Provider Internal Medicine
DX: R22.0 Localized swelling, mass and lump, head (principal)
CPT/HCPCS: 70487; Q9967

== ENCOUNTER → 2022-06-08 12:27 | Outpatient (BNVA) | payer MEDICAID, SELFPAY | PROVIDERS: PCP Nurse Practitioner Family; Visit Provider Internal Medicine | DX: K86.1 Other chronic pancreatitis (principal); C18.7 Malignant neoplasm of sigmoid colon | CPT/HCPCS: 99212 ==

== ENCOUNTER 2022-06-10 10:21 | Outpatient (REF) | payer MEDICAID, SELFPAY ==
[2022-06-10 11:42] LABS: Hematocrit 44.4 % (37.0-47.0); Hemoglobin 14.6 g/dl (12.0-16.0); Mean Corpuscular HGB Conc 32.9 g/dl (31.0-35.0); Mean Corpuscular Hemoglobin 32.6 pg (27.0-33.0); Mean Corpuscular Volume 99.1 fL (80.0-98.0); Platelet Count 322 X10*3/uL (160-400); Red Blood Count 4.48 X10*6/uL (4.20-5.50); Red Cell Distribution Width 12.7 % (11.0-16.0); White Blood Count 12.4 X10*3/uL (4.8-10.8)
[2022-06-10 12:15] LABS: Amylase 34 U/L (28-100)
[2022-06-10 12:19] LABS: Alanine Aminotransferase 8 U/L (0-31); Albumin Level 4.1 g/dL (3.5-5.0); Alkaline Phosphatase 81 U/L (39-117); Anion Gap 16 (12-20); Aspartate Amino Transferase 23 U/L (5-31); Bilirubin Total 0.2 mg/dL (0.0-1.0); Blood Urea Nitrogen 10 mg/dL (9-16); Calcium 9.3 mg/dL (8.4-10.2); Carbon Dioxide 28 mmol/L (22-29); Chloride 100 mmol/L (96-108); Estimated Glomerular Filt Rate > 60; Glucose Fasting 110 mg/dL (60-99); Lipase 56 U/L (8-78); Potassium 3.7 mmol/L (3.3-5.1); Sodium 140 mmol/L (135-145); Total Protein 7.1 g/dL (6.5-8.0)
[2022-06-10 12:38] LABS: Vitamin D 25-OH Total 6.3 ng/mL (>30)
[2022-06-13 14:54] LABS: Immunoglobulin G Subclass 1 468 mg/dL (382-929); Immunoglobulin G Subclass 2 267 mg/dL (241-700); Immunoglobulin G Subclass 3 56 mg/dL (22-178); Immunoglobulin G Subclass 4 24.8 mg/dL (4-86); Immunoglobulin G Total 878 mg/dL (600-1640)
[2022-06-15 16:38] LABS: Alpha-Tocopherol 19.2 mg/L (5.7-19.9); Beta-Gamma Tocopherol 4.5 mg/L (<=4.3)
[2022-06-15 21:19] LABS: Vitamin K1 >2500 pg/mL (130-1500)
[2022-06-15 22:23] LABS: Vitamin A 90 mcg/dL (38-98)
== END 2022-06-10 10:22 | disposition home or self-care (01) ==
LOC: HO.LAB 10:21
PROVIDERS: Absent Provider Internal Medicine; PCP Nurse Practitioner Family; Visit Provider Surgery
DX: C34.32 Malignant neoplasm of lower lobe, left bronchus or lung (principal); I10 Essential (primary) hypertension; K86.1 Other chronic pancreatitis
CPT/HCPCS: 36415; 80053; 82150; 82306; 82784; 83690; 84446; 84590; 84597; 85027; 99212

== ENCOUNTER 2022-06-22 08:49 | Outpatient (REF) | payer MEDICAID, SELFPAY ==
[2022-06-22 09:45] LABS: Estimated Average Glucose 103 mg/dL; Hemoglobin A1c % 5.2 %
[2022-07-01 20:49] LABS: Pancreatic Elastase-1 >500 mcg/g
[2022-07-02 05:39] LABS: Fecal Fat Qualitative NORMAL (NORMAL)
== END 2022-06-22 08:50 | disposition home or self-care (01) ==
LOC: HO.LAB 08:49
PROVIDERS: PCP Nurse Practitioner Family; Referring Provider Internal Medicine; Visit Provider Nurse Practitioner Family
DX: R73.01 Impaired fasting glucose (principal); K86.1 Other chronic pancreatitis
CPT/HCPCS: 36415; 82656; 82705; 83036

== ENCOUNTER → 2022-06-28 13:40 | Outpatient (BNVA) | payer MEDICAID, SELFPAY | PROVIDERS: PCP Nurse Practitioner Family; Visit Provider Nurse Practitioner Family | DX: G43.909 Migraine, unspecified, not intractable, without status migrainosus (principal); M54.2 Cervicalgia; R20.2 Paresthesia of skin | CPT/HCPCS: 99202 ==

== ENCOUNTER 2022-08-09 12:09 | Outpatient (REF) | payer MEDICAID, SELFPAY ==
[2022-08-09 12:17] LABS: Hematocrit 30.5 % (37.0-47.0); Hemoglobin 9.3 g/dl (12.0-16.0); Mean Corpuscular HGB Conc 30.5 g/dl (31.0-35.0); Mean Corpuscular Hemoglobin 30.6 pg (27.0-33.0); Mean Corpuscular Volume 100.3 fL (80.0-98.0); NRBC Pct Auto 0.4 /100WBC (0.0-0.2); Platelet Count 829 X10*3/uL (160-400); Red Blood Count 3.04 X10*6/uL (4.20-5.50); Red Cell Distribution Width 14.1 % (11.0-16.0); White Blood Count 13.7 X10*3/uL (4.8-10.8)
[2022-08-09 13:03] LABS: Band Neutrophils Percent 2 % (3-5); Eosinophils Absolute Manual 0.1 X10*3/uL (0.0-0.4); Eosinophils Percent Manual 1 % (0-4); Lymphocytes Absolute Manual 1.4 X10*3/uL (1.2-4.9); Lymphocytes Percent Manual 10 % (20-40); Macrocytosis 1+ (5-14) /OIF; Metamyelocytes Absolute 0.1 X10*3/uL; Metamyelocytes Percent 1 %; Monocytes Percent Manual 7 % (2-11); Neutrophils Absolute Manual 11.1 X10*3/uL (2.0-8.3); Neutrophils Percent Manual 79 % (45-73); RBC Morphology NOTED; Stomatocytes 1+ (5-14) /OIF
[2022-08-09 13:04] LABS: Hypochromasia 1+ (5-14) /OIF; Platelet Estimate INCREASED (NORMAL); Platelet Morphology Comment NORMAL; Polychromasia 1+ (0-2) /OIF
[2022-08-09 13:32] LABS: Alanine Aminotransferase 6 U/L (0-31); Albumin Level 3.1 g/dL (3.5-5.0); Alkaline Phosphatase 94 U/L (39-117); Anion Gap 17 (12-20); Aspartate Amino Transferase 15 U/L (5-31); Bilirubin Total 0.2 mg/dL (0.0-1.0); Blood Urea Nitrogen 11 mg/dL (9-16); Calcium 8.2 mg/dL (8.4-10.2); Carbon Dioxide 29 mmol/L (22-29); Chloride 98 mmol/L (96-108); Estimated Glomerular Filt Rate > 60; Glucose Random 96 mg/dL (60-115); Sodium 139 mmol/L (135-145); Total Protein 5.9 g/dL (6.5-8.0)
== END 2022-08-09 12:10 | disposition home or self-care (01) ==
LOC: HO.HVNA 12:09
PROVIDERS: Visit Provider Nurse Practitioner Family
DX: Z48.815 Encounter for surgical aftercare following surgery on the digestive system (principal)
CPT/HCPCS: 36415; 80053; 85007; 85027

== ENCOUNTER 2022-08-23 10:54 | Outpatient (REF) | payer MEDICAID, SELFPAY ==
--- NOTE | ~2022-08-23 | PE_ITS ---
EXAMINATION: Fluorine-18 FDG PET/CT Scan CLINICAL INDICATION: Subsequent treatment management. Malignant neoplasm of colon, restaging. PROCEDURE: 73 minutes following the intravenous administration of 15.4 mCi of fluorine 18 FDG, images from the base of the skull to the mid thighs were obtained using a combined PET/CT scanner with CT scan based attenuation correction. No oral contrast was administered. No intravenous contrast was administered. Transverse, coronal, sagittal, and volume reconstruction projections were obtained. The patient's blood glucose as determined by a finger stick, was 85 mg/dl immediately prior to injection. Total CT exam dose-length product 877.58 mGy-cm * These CT images were obtained using dose optimization techniques as appropriate, variously including the following: Automated exposure control * Adjustment of mA and/or kV according to patient size (this includes techniques or standardized protocols for targeted exams where dose is matched to indication/reason for exam; i.e. extremities or head) * Use of iterative reconstruction technique COMPARISON: No previous PET/CT scan is available for comparison. The diagnostic CT scan of the abdomen and pelvis, dated 09/09/2020, and CT scan of the chest dated 02/01/2022 are available for comparison. FINDINGS: (Slice numbers described in this report are numbered superiorly to inferiorly with slice #1 in the head) NECK AND VISUALIZED HEAD: No foci of abnormal FDG activity are noted. The distribution of FDG activity is physiological. There is no cervical lymphadenopathy. THORAX: Postsurgical changes from a left lower lobectomy are noted, with associated left lung volume loss. No pulmonary nodules are visualized. There is some minimal scarring or atelectasis in the base of the left lung with no associated abnormal FDG activity. There is no pleural or pericardial fluid, or pneumothorax. Subcentimeter mediastinal lymph nodes are present, and these are all too small to be characterized on the FDG PET images. There is no axillary or supraclavicular lymphadenopathy. ABDOMEN AND PELVIS: There is a focus of increased FDG activity in the left midabdomen immediately superior to a left-sided colostomy, with mildly increased FDG activity diffusely in the region of the colostomy and adjacent abdominal wall. There is diffuse somewhat heterogeneous abnormally increased FDG activity associated with a midline lower abdominal wall incision at evident on the CT images. This shows SUVmax 9.4, slice 202/267 in a focus at the level of the acetabular roof. There is an additional focus of increased FDG activity just superior to the right upper margin of the urinary bladder that may represent some retained urinary activity in the distal right ureter, but a focus in the immediately adjacent bowel, likely a loop of small bowel cannot be ruled out. There are no other foci of abnormal FDG activity in the abdomen or pelvis. A midline and anastomotic suture line is visualized in the large bowel and this is not associated with focal abnormal FDG activity, but mild FDG activity in this region similar to that throughout the remainder the bowel is noted. The liver and spleen are unremarkable. The gallbladder has been resected and there are multiple metallic surgical clips in the gallbladder bed. The kidneys and adrenal glands appear unremarkable. There is a rounded 0.7 cm densely calcified opacity in the body of the pancreas, and this appears to be in the pancreatic duct but the duct does not appear dilated. There is no associated abnormal FDG activity. This was not present on the 09/09/2020 CT scan of the abdomen and pelvis. The uterus is not visualized and presumed surgically resected. The pelvic organs are otherwise unremarkable. MUSCULOSKELETAL: There is a focus of mild FDG activity associated with facet arthropathy in the right side of the cervical spine at the L4 level. There are no other foci of abnormal FDG activity in the osseous structures. A posterior lumbar L4-S1 fusion, SUV Max 3.4, slice 40/267 with bilateral pedicle screws and associated rods present at these levels and metallic disc prosthesis at L4-L5 and L5/S1 present. There diffuse degenerative changes throughout the spine but no suspicious sclerotic or lytic lesions are present. VASCULAR: Diffuse vascular calcifications including coronary are noted. PET/PET CT fusion skull to thigh IMPRESSION: 1. Postsurgical changes are present in the anterior abdominal wall and transverse colon, as described above. The midline abdominal incision and muscular wall in the region of the left mid abdominal colostomy are present as described above and these likely represent recent postoperative inflammatory changes. 2. An FDG avid focus in the left side of the pelvis probably represents some retained urinary activity in the distal left ureter, but an FDG avid focus in a loop of bowel immediately adjacent to this on the CT images may be present. This could be further characterized with MRI, performed without and with intravenous contrast. 3. No additional abnormalities strongly suspicious for metastatic or other malignant lesions are noted. 4. Diffuse vascular calcifications including coronary.
== END 2022-08-23 10:55 | disposition home or self-care (01) ==
LOC: HO.PET 10:54
PROVIDERS: PCP Nurse Practitioner Family; Visit Provider Internal Medicine
DX: Z13.89 Encounter for screening for other disorder (principal)

== ENCOUNTER 2022-08-26 13:57 | Outpatient (REF) | payer MEDICARE, MEDICAID, SELFPAY ==
--- NOTE | ~2022-08-26 | MR_ITS ---
EXAMINATION: MR BRAIN WITHOUT AND WITH CONTRAST CLINICAL INFORMATION: Migraine. History of colon cancer. COMPARISON: CT head from 11/18/2020. TECHNIQUE: MRI of the brain was obtained using routine sequences without and following the administration of 10 mL of Gadavist intravenous contrast. FINDINGS: No focal restricted diffusion is demonstrated to suggest acute or subacute cerebral ischemia. No evidence of acute or chronic hemorrhagic products on heme-sensitive imaging. Scattered and partially confluent periventricular, deep white matter, and brainstem T2 FLAIR hyperintensities consistent with moderate underlying microangiopathy. Proportional prominence of the ventricles and sulcal spaces without evidence of obstructive hydrocephalus. No abnormal mass effect. No midline shift. Normal appearance of the pituitary gland. Normal positioning of the cerebellar tonsils. Normal arterial and venous vascular flow voids are present. No abnormal contrast enhancement. Normal, homogeneous marrow signal. Mild mucosal thickening of the paranasal sinuses. Mild rightward nasal septal deviation. Small left-sided mastoid effusion. No signal abnormalities within the right-sided mastoid. MR/MR head/brain wo/w con IMPRESSION: 1. No acute intracranial abnormalities. No abnormal intracranial enhancement. 2. Moderate underlying microangiopathy and generalized cerebral volume loss.
== END 2022-08-26 13:58 | disposition home or self-care (01) ==
LOC: HO.MRI 13:57
PROVIDERS: PCP Nurse Practitioner Family; Visit Provider Nurse Practitioner Family
DX: G43.909 Migraine, unspecified, not intractable, without status migrainosus (principal); R20.2 Paresthesia of skin; C34.32 Malignant neoplasm of lower lobe, left bronchus or lung; C18.9 Malignant neoplasm of colon, unspecified
CPT/HCPCS: 70553; A9585

== ENCOUNTER → 2022-08-31 12:35 | Outpatient (BNVA) | payer MEDICARE, MEDICAID, SELFPAY | PROVIDERS: PCP Nurse Practitioner Family; Referring Provider Nurse Practitioner Family; Visit Provider Internal Medicine | DX: I48.0 Paroxysmal atrial fibrillation (principal); I25.10 Atherosclerotic heart disease of native coronary artery without angina pectoris; I73.9 Peripheral vascular disease, unspecified; I10 Essential (primary) hypertension; E78.5 Hyperlipidemia, unspecified; J44.9 Chronic obstructive pulmonary disease, unspecified | CPT/HCPCS: 93005; 99212 ==

== ENCOUNTER 2022-09-03 08:13 | Outpatient (REF) | payer MEDICARE, MEDICAID, SELFPAY ==
[2022-09-03 09:44] LABS: Cholesterol 201 mg/dL; HDL Cholesterol 37 mg/dL; Iron 43 mcg/dL (30-160); Lipase 39 U/L (8-78); Percent Iron Saturation 11 % (15-50); Total Iron Binding Capacity 382 mcg/dL (228-428); Triglycerides 603 mg/dL; Unsaturated Iron Binding 339 ug/dL
[2022-09-03 10:03] LABS: Folate 5.9 ng/mL (> or = 4.0); Vitamin B12 352 pg/mL (200-900)
[2022-09-04 20:14] LABS: LDL Cholesterol Direct 81 mg/dL (<100)
== END 2022-09-03 08:14 | disposition home or self-care (01) ==
LOC: HO.LAB 08:13
PROVIDERS: Absent Provider Internal Medicine; PCP Nurse Practitioner Family; Visit Provider Nurse Practitioner Family
DX: Z13.29 Encounter for screening for other suspected endocrine disorder (principal); D50.9 Iron deficiency anemia, unspecified; E78.00 Pure hypercholesterolemia, unspecified; I25.10 Atherosclerotic heart disease of native coronary artery without angina pectoris; E78.2 Mixed hyperlipidemia; D64.9 Anemia, unspecified
CPT/HCPCS: 36415; 80061; 82607; 82746; 83540; 83690; 83721; 84443

== ENCOUNTER 2022-09-08 06:48 | Day surgery (SDC) | payer MEDICARE, MEDICAID, SELFPAY ==
[2022-09-08] VITALS (9 sets, daily range): BP systolic 111–126; BP diastolic 48–72; PULSE 77–85; RESP 16–20; TEMP 36.3–36.8; O2SAT 94–95; BMI 32.8
--- NOTE | ~2022-09-08 | IR_ITS ---
PROCEDURE: US ULTRASOUND-GUIDED VENOUS ACCESS IR INSERTION OF TUNNEL CATHETER CLINICAL INFORMATION: Colon cancer. COMPARISON: Right port placement 09/08/2022. TECHNIQUE: Following explaining ultrasound and fluoroscopy-guided placement of right port catheter, the procedure, benefits and risks, a written consent was obtained from the patient. Patient was placed supine on ultrasound stretcher and preliminary ultrasound imaging was obtained through the right neck. An optimal site was selected and marked. The marked site was cleaned and draped in the usual sterile manner. 1% lidocaine was injected along the right neck. Under sterile ultrasound guidance a single wall needle was advanced and right jugular vein was punctured. After observing venous return a thin guidewire was placed through the needle into the SVC and needle withdrawn. A 5 [place] dilator was placed over the guidewire and this guidewire and the dilator were anchored to the drape with a hemostat. Approximately 1 gauze length away from the right neck incision along the anterior chest wall 1% lidocaine was injected and a small skin incision was performed. Blunt dissection was performed within the adipose tissue for the port catheter to be position. After blunt dissection the Port-A-Cath was inserted into the chest wall and anchored to the skin with nonabsorbable 3-0 nylon sutures. 1% lidocaine with epinephrine was then injected subcutaneously extending from the right anterior chest wall incision to the right neck incision. The right neck incision was slightly expanded. A blunt tunneler connected to the Port-A-Cath was then blindly inserted in the subcutaneous soft tissues and extracted to the right neck incision. The catheter was then sized to correct measurements. The short guidewire through the 5 [place] dilator was removed and a longer 0.035 guidewire was advanced under fluoroscopy and placed in the IVC and the 5 [place] dilator was removed. The tract was dilated to a 6 [place]. A 7 [place] sheath was then inserted over the guidewire with the dilator. The dilator and the guidewire were removed and pre sized Port-A-Cath was then inserted through the peel-away sheath. The peel-away sheath was removed as the catheter was completely advanced into the SVC. A single image was obtained for documentation. The Port-A-Cath was then flushed with saline followed by heparin instillation. The chest wall incision was sutured with subcutaneous 4-0 absorbable suture followed by 3-0 skin sutures. The anterior neck incision was stitched with a single 3-0 absorbable suture. Sterile dressing was applied at both sites without immediate compilations. All elements of maximal sterile barrier technique followed including use of cap, mask, sterile gown, sterile gloves, a sterile full body drape and hand hygiene. Also followed skin preparation with 2% chlorhexidine for cutaneous antisepsis, and sterile ultrasound preparation with sterile gel and probe cover when applicable. Patient was medicated by Anesthesia Department during the entire procedure. FINDINGS: On preliminary ultrasound imaging there is a widely patent jugular vein. Approximately 6.6 [place] 22 cm long power port was inserted from the right side. Fluoroscopy time: 0.3 minutes. Dose: 102 cGy-cm2 IR/IR us guide venous access IMPRESSION: Successful ultrasound and fluoroscopy-guided placement of a right internal jugular vein Port-A-Cath as described above.
--- NOTE | ~2022-09-08 | IR_ITS ---
PROCEDURE: US ULTRASOUND-GUIDED VENOUS ACCESS IR INSERTION OF TUNNEL CATHETER CLINICAL INFORMATION: Colon cancer. COMPARISON: Right port placement 09/08/2022. TECHNIQUE: Following explaining ultrasound and fluoroscopy-guided placement of right port catheter, the procedure, benefits and risks, a written consent was obtained from the patient. Patient was placed supine on ultrasound stretcher and preliminary ultrasound imaging was obtained through the right neck. An optimal site was selected and marked. The marked site was cleaned and draped in the usual sterile manner. 1% lidocaine was injected along the right neck. Under sterile ultrasound guidance a single wall needle was advanced and right jugular vein was punctured. After observing venous return a thin guidewire was placed through the needle into the SVC and needle withdrawn. A 5 [place] dilator was placed over the guidewire and this guidewire and the dilator were anchored to the drape with a hemostat. Approximately 1 gauze length away from the right neck incision along the anterior chest wall 1% lidocaine was injected and a small skin incision was performed. Blunt dissection was performed within the adipose tissue for the port catheter to be position. After blunt dissection the Port-A-Cath was inserted into the chest wall and anchored to the skin with nonabsorbable 3-0 nylon sutures. 1% lidocaine with epinephrine was then injected subcutaneously extending from the right anterior chest wall incision to the right neck incision. The right neck incision was slightly expanded. A blunt tunneler connected to the Port-A-Cath was then blindly inserted in the subcutaneous soft tissues and extracted to the right neck incision. The catheter was then sized to correct measurements. The short guidewire through the 5 [place] dilator was removed and a longer 0.035 guidewire was advanced under fluoroscopy and placed in the IVC and the 5 [place] dilator was removed. The tract was dilated to a 6 [place]. A 7 [place] sheath was then inserted over the guidewire with the dilator. The dilator and the guidewire were removed and pre sized Port-A-Cath was then inserted through the peel-away sheath. The peel-away sheath was removed as the catheter was completely advanced into the SVC. A single image was obtained for documentation. The Port-A-Cath was then flushed with saline followed by heparin instillation. The chest wall incision was sutured with subcutaneous 4-0 absorbable suture followed by 3-0 skin sutures. The anterior neck incision was stitched with a single 3-0 absorbable suture. Sterile dressing was applied at both sites without immediate compilations. All elements of maximal sterile barrier technique followed including use of cap, mask, sterile gown, sterile gloves, a sterile full body drape and hand hygiene. Also followed skin preparation with 2% chlorhexidine for cutaneous antisepsis, and sterile ultrasound preparation with sterile gel and probe cover when applicable. Patient was medicated by Anesthesia Department during the entire procedure. FINDINGS: On preliminary ultrasound imaging there is a widely patent jugular vein. Approximately 6.6 [place] 22 cm long power port was inserted from the right side. Fluoroscopy time: 0.3 minutes. Dose: 102 cGy-cm2 IR/IR cvc insert tunnel w prt/venetian blind cleaner IMPRESSION: Successful ultrasound and fluoroscopy-guided placement of a right internal jugular vein Port-A-Cath as described above.
[2022-09-08 07:28] LABS: MANUAL DIFF FLAG NO
[2022-09-08 07:45] LABS: INTERNATIONAL NORM RATIO 0.8 (0.9-1.1); Prothrombin Time 9.5 SEC (10.0-13.1)
[2022-09-08 07:46] LABS: Partial Thromboplastin Time 36.1 SEC (26.0-36.4)
[2022-09-08 07:49] LABS: Basophils Absolute Auto 0.1 X10*3/uL (0.0-0.2); Basophils Percent Auto 0.6 % (0-2); Eosinophils Absolute Auto 0.1 X10*3/uL (0.0-0.4); Eosinophils Percent Auto 0.6 % (0-4); Hematocrit 40.1 % (37.0-47.0); Hemoglobin 12.3 g/dl (12.0-16.0); Imm Gran Abs Auto 0.19 X10*3/uL (0.00-0.03); Imm Gran Pct Auto 1.8 % (0.0-0.4); Lymphocytes Absolute Auto 2.6 X10*3/uL (1.2-4.9); Lymphocytes Percent Auto 24.5 % (20-40); Mean Corpuscular HGB Conc 30.7 g/dl (31.0-35.0); Mean Corpuscular Hemoglobin 29.9 pg (27.0-33.0); Mean Corpuscular Volume 97.6 fL (80.0-98.0); Mean Platelet Volume 9.6 fL (9.4-12.3); Monocytes Absolute Auto 0.9 X10*3/uL (0.1-1.2); Monocytes Percent Auto 8.6 % (2-11); Neutrophils Absolute Auto 6.9 x10*3/uL (2.0-8.3); Neutrophils Percent Auto 63.9 % (45-73); Platelet Count 370 X10*3/uL (160-400); Red Blood Count 4.11 X10*6/uL (4.20-5.50); Red Cell Distribution Width 14.5 % (11.0-16.0); White Blood Count 10.8 X10*3/uL (4.8-10.8)
--- NOTE | 2022-09-08 09:17 | P.CONAN_ITS ---
[facility] Active Problems Active Problems: All Active Problems (Updated 08/17/22 @ 13:50 by GAYATHRI Tran) Thrombocythemia (Acute) Anemia (Acute) Melena (Acute) Cervicalgia (Acute) Tingling (Acute) Migraine (Acute) Elevated fasting glucose (Acute) Chronic pancreatitis (Acute) Atherosclerotic cardiovascular disease (Acute) Screening for hypothyroidism (Acute) Candidiasis, intertrigo (Acute) Smoker (Acute) GERD (gastroesophageal reflux disease) (Acute) Encounter to establish care (Acute) Iron deficiency anemia (Acute) Tension headache (Acute) Chronic back pain (Acute) Anxiety (Acute) Bipolar disorder (Acute ~2009) Encounter for medication review (Acute) PAF (paroxysmal atrial fibrillation) (Acute ~2020) Colostomy in place (Acute ~2020) Cancer of lower lobe of left lung (Acute ~2020) Adenocarcinoma of sigmoid colon (Acute ~2020) Colon cancer (Acute ~2020) CAD (coronary artery disease) (Acute) Congestive heart failure (Acute) Respiratory failure with hypoxia and hypercapnia (Acute) Hypoxia (Acute) COPD (chronic obstructive pulmonary disease) (Acute) HTN (hypertension) (Acute) High cholesterol (Acute) IVY (obstructive sleep apnea) (Acute) Peripheral vascular disease (Acute) Personal history of nicotine dependence (Acute) Polysubstance (including opioids) dependence, binge pattern (Acute) PTSD (post-traumatic stress disorder) (Acute) Depression (Acute) Renal failure (Acute) Pericardial effusion (Acute) No natural teeth (Acute) Hypernatremia (Acute) GI bleed (Acute) COVID-19 vaccine series completed (Acute) CHF exacerbation (Acute) Back pain with history of spinal surgery (Acute) Acute on chronic diastolic CHF (congestive heart failure) (Acute) Acute and chronic respiratory failure (Acute) Hematochezia (Acute) Past Medical History Medical History Acute and chronic respiratory failure Adenocarcinoma of sigmoid colon (~2020) Atrial fibrillation with rapid ventricular response Back pain with history of spinal surgery Bilateral pneumonia Bipolar disorder (~2009) CAD (coronary artery disease) Cancer of lower lobe of left lung (~2020) Chronic back pain Colon cancer (~2020) Colostomy in place (~2020) Congestive heart failure COPD (chronic obstructive pulmonary disease) COVID-19 vaccine series completed Depression Essential hypertension Fibromyalgia GERD (gastroesophageal reflux disease) GI bleed High cholesterol History of COVID-19 (~04/2020) HTN (hypertension) Hypernatremia Hypoventilation associated with obesity Hypoxia Lung cancer No natural teeth Obesity Obesity hypoventilation syndrome IVY (obstructive sleep apnea) Other and unspecified hyperlipidemia Oxygen dependent Pericardial effusion Peripheral vascular disease Personal history of nicotine dependence Pleural effusion, left Pneumonia Polysubstance (including opioids) dependence, binge pattern Preoperative cardiovascular examination PTSD (post-traumatic stress disorder) Renal failure Respiratory failure with hypoxia and hypercapnia Restless legs syndrome (RLS) Restrictive lung disease Rotator cuff strain Sleep disorder Smoker UTI (urinary tract infection) Family History Family History Maternal Aunt Breast cancer Stroke COPD (chronic obstructive pulmonary disease) Maternal Aunt Breast cancer COPD (chronic obstructive pulmonary disease) Mother Uterine cancer COPD (chronic obstructive pulmonary disease) HTN (hypertension) Heart disease Maternal Uncle Stroke Paternal Grandmother Heart attack Sister Diabetes IBS (irritable bowel syndrome) Son HTN (hypertension) Daughter HTN (hypertension) Father HTN (hypertension) Brother Heart disease Family history of problems with anesthesia: No Surgical History Surgical History History of appendectomy (~1982) History of back surgery History of bunionectomy (~1977) History of cardiac cath (~2010) History of cholecystectomy History of colonoscopy (~08/2020) History of esophagogastroduodenoscopy (EGD) History of hysterectomy (~1990) History of lobectomy of lung (~08/2020) History of partial colectomy (~12/2020) History of Problems with Anesthesia: No Social History Social History Household Members: Spouse Housing: House Are you a primary point of care specialist to a significant other at home: No Do you presently have visiting nurse or other home services: Yes Alcohol intake: never Patient Tobacco Use Status: Current everyday Tobacco user Tobacco use type: Cigarette Cigarettes Per Day: 4 Years Smoked: 40 e-Cigarette/Vaping Use: Never Used Second Hand Smoke Exposure: Yes Use of substances other than those prescribed or required for medical reasons: No Are you DNR?: No Advance Directives: No Advance Directives Information Provided: Yes Advance Directives Date on File: 11/27/20 service: No Current occupational status: unemployed and disabled Cognitive needs: Yes (walker ) Hearing needs: No Vision needs: No Meds Allergies Allergy/AdvReac Type Severity Reaction Status Date / Time levofloxacin [From Levaquin] Allergy Severe Diarrhea Verified 09/08/22 07:21 Penicillins Allergy Mild RASH Verified 09/08/22 07:21 venlafaxine [From Effexor] Allergy Mild RASH Verified 09/08/22 07:21 cyclobenzaprine Allergy Unknown UNKNOWN Verified 09/08/22 07:21 [Cyclobenzaprine] fentanyl [FENTANYL] Allergy Unknown HALLUCINATI Verified 09/08/22 07:21 ONS topiramate [From Topamax] Allergy Unknown UNKNOWN Verified 09/08/22 07:21 Sulfa (Sulfonamide AdvReac Severe Diarrhea Verified 09/08/22 07:21 Antibiotics) Home Medications Medication Instructions Recorded Confirmed Last Taken Type blood pressure monitor #1 ea 10/22/20 09/06/22 11/28/20 History blood pressure test kit-large #1 ea 10/22/20 09/06/22 11/28/20 History docusate sodium 100 mg capsule 100 mg PO BID PRN constipation 09/21/21 09/06/22 Unknown History Exam Exam Date and Time: September 08, 2022 0917 Height,Weight and Vital Signs: Height 5 ft 4 in Weight 86.636 kg Last Vital Signs Temp 98.2 F 09/08/22 08:35 Pulse 85 09/08/22 08:35 Resp 18 09/08/22 08:35 BP 123/61 09/08/22 08:35 Pulse Ox 94 09/08/22 08:35 O2 Del Method Room Air 09/08/22 08:35 Pertinent Lab Results Pertinent Lab Results: Laboratory Tests 09/08/22 09/08/22 07:24 07:24 WBC 10.8 RBC 4.11 L D Hgb 12.3 D Hct 40.1 D MCV 97.6 MCH 29.9 MCHC 30.7 L RDW 14.5 Plt Count 370 D MPV 9.6 Immature Gran % (Auto) 1.8 H Neut % (Auto) 63.9 Lymph % (Auto) 24.5 [place] % (Auto) 8.6 Eos % (Auto) 0.6 Baso % (Auto) 0.6 Lymph # (Auto) 2.6 [place] # (Auto) 0.9 Eos # (Auto) 0.1 Baso # (Auto) 0.1 Abs Immat Gran (auto) 0.19 H Absolute Neuts (auto) 6.9 Absolute Nucleated RBC 0.000 Nucleated RBC % (auto) 0.0 PT 9.5 L INR 0.8 L APTT 36.1 Airway Mallampati Class: III TM Dist: >3cm Neck ROM: Full Denture: Upper and Lower Assessment and Plan Assessment Anesthesia Assessment: Anesthesia Plan Discussed and Chart Reviewed Final Anesthetic Review Family History of Problems with Anesthesia: No History of Problems with Anesthesia: No NPO: Yes ASA Class: III Final Preanesthetic Review: No Changes in Pt Med Stat, Meds/Allgs Chart Reviewed, Consent Obtained/Reviewed and Anes Risks/Benef Reviewed Patient Risk: Intermediate Procedure Risk: Low Anesthetic Plan Anesthetic Plan: MAC: Disposition: Standard PACU
== END 2022-09-08 13:02 | disposition home or self-care (01) ==
PROVIDERS: Radiology Diagnostic Radiology; PCP Nurse Practitioner Family; Visit Provider Radiology Diagnostic Radiology
DX: C18.7 Malignant neoplasm of sigmoid colon (principal); I48.91 Unspecified atrial fibrillation; I11.0 Hypertensive heart disease with heart failure; I50.9 Heart failure, unspecified; J44.9 Chronic obstructive pulmonary disease, unspecified; Z85.118 Personal history of other malignant neoplasm of bronchus and lung
CPT/HCPCS: 36415; 36561; 76937; 85025; 85610; 85730; C1769; C1788; J1100; J1642; J2250; J2370; J2405; J3010

== ENCOUNTER 2022-09-12 12:45 | Outpatient (REF) | payer MEDICARE, MEDICAID, SELFPAY ==
--- NOTE | ~2022-09-12 | CT_ITS ---
EXAMINATION: CT CHEST WITHOUT CONTRAST CLINICAL INFORMATION: Lung cancer COMPARISON: 02/01/2022 TECHNIQUE: Multidetector volumetric CT imaging of the chest was done. Axial MIP volume rendering provided. Sagittal and coronal reformatted images were obtained. This CT examination was performed using dose optimization techniques as appropriate, variously including the following: *Automated exposure control *Adjustment of mA and/or kV according to patient size (this includes techniques or standardized protocols for targeted exams where dose is matched to indication/reason for exam; i.e. extremities or head) *Use of iterative reconstruction technique DLP: [id number] FINDINGS: LUNGS: Status post left upper lobectomy. Left lower lobe linear opacities likely reflect atelectasis versus scarring, unchanged. Right upper lobe 2 mm nodule is unchanged (5:154).No new or enlarging pulmonary nodule. MEDIASTINUM: Dense coronary artery atherosclerotic calcifications no mediastinal adenopathy. Lack of IV contrast limits evaluation for hilar adenopathy. Right chest port in appropriate position. PLEURA: There is no pleural effusion. No pleural mass or thickening. AXILLA: No lymphadenopathy. UPPER ABDOMEN: Status post cholecystectomy. Partially visualized ventral abdominal wall hernia. Partially visualized pancreatic body stone measuring 7 mm, similar to prior study. OSSEOUS STRUCTURES/SOFT TISSUES: Degenerative changes of the spine. CT/CT chest wo IV con IMPRESSION: Right upper lobe 2 mm nodule is unchanged. No new or enlarging pulmonary nodule.
== END 2022-09-12 12:46 | disposition home or self-care (01) ==
LOC: HO.CT 12:45
PROVIDERS: PCP Nurse Practitioner Family; Visit Provider Surgery
DX: C34.32 Malignant neoplasm of lower lobe, left bronchus or lung (principal)
CPT/HCPCS: 71250

== ENCOUNTER → 2022-09-30 10:20 | Outpatient (BNVA) | payer MEDICARE, MEDICAID, SELFPAY | PROVIDERS: PCP Nurse Practitioner Family; Visit Provider Surgery | DX: C34.32 Malignant neoplasm of lower lobe, left bronchus or lung (principal) | CPT/HCPCS: 99212 ==

== ENCOUNTER → 2022-10-03 10:37 | Outpatient (BNVA) | payer MEDICARE, MEDICAID, SELFPAY | PROVIDERS: PCP Nurse Practitioner Family; Visit Provider Internal Medicine | DX: J44.1 Chronic obstructive pulmonary disease with (acute) exacerbation (principal); J96.21 Acute and chronic respiratory failure with hypoxia; J96.22 Acute and chronic respiratory failure with hypercapnia; G47.33 Obstructive sleep apnea (adult) (pediatric) | CPT/HCPCS: 99212 ==

== ENCOUNTER 2022-11-10 16:28 | Emergency (ER) | payer MEDICARE, MEDICAID, SELFPAY ==
--- NOTE | 2022-11-10 16:31 | ED_ITS ---
HPI - General Adult General Chief complaint: Abdominal Pain Stated complaint: Sent by Time Seen by Provider: 11/10/22 19:38 History of Present Illness HPI narrative: 57-year-old female history CHF, GI bleed, depression, PTSD, IVY, polysubstance abuse, hypertension, COPD, CAD,PAF, left lower lobe lung cancer and adenocarcinoma of sigmoid colon patient was admitted [facility] in 07/28-08/12 had small-bowel obstruction secondary to deep pelvic adhesions, patient underwent a laparotomy with resection of ileum with lysis adhesions comes here as she has been having high output watery stool from colostomy bag for last few weeks having watery stool every time when she eats or drinks received IV fluids last week and sent by oncologist as is still having diarrhea in spite of taking Imodium and Lomotil Related Data Home Medications Medication Instructions Recorded Confirmed blood pressure monitor #1 ea 10/22/20 10/04/22 blood pressure test kit-large #1 ea 10/22/20 10/04/22 docusate sodium 100 mg capsule 100 mg PO BID PRN constipation 09/21/21 10/04/22 Previous Rx's Medication Instructions Recorded divalproex 500 mg tablet,extended 1,000 mg PO QPM 90 days #180 tabs 01/13/22 release 24 hr peg 3350-electrolytes 236 240 ml PO Q10M colonoscopy #4,000 06/08/22 gram-22.74 gram-6.74 gram-5.86 mL gram solution (Golytely) cholecalciferol (vitamin D3) 1,250 1,250 mcg PO QWEEK 8 weeks #8 caps 06/10/22 mcg (50,000 unit) capsule magnesium oxide 400 mg (241.3 mg 400 mg PO BEDTIME 30 days #30 tabs 06/28/22 magnesium) tablet riboflavin (vitamin B2) 400 mg 400 mg PO DAILY 30 days #30 tabs 06/28/22 tablet umeclidinium 62.5 mcg/actuation 1 inh inhalation DAILY #30 ea 07/08/22 blister powder for inhalation (Incruse Ellipta) albuterol sulfate 90 mcg/actuation 2 puff inhalation Q4-6H PRN 07/26/22 aerosol inhaler shortness of breath or wheezing #8.5 grams ferrous sulfate 325 mg (65 mg 325 mg PO BID #60 tabs 07/26/22 iron) tablet (FeroSul) fluticasone furoate 100 1 inh inhalation DAILY #60 ea 07/26/22 mcg-vilanterol 25 mcg/dose inhalation powder (Breo Ellipta) omeprazole 20 mg capsule,delayed 20 mg PO BID #60 caps 08/27/22 release dexamethasone 4 mg tablet 4 mg PO BID #60 tabs 09/02/22 loperamide 2 mg capsule (Imodium 2 mg PO Q6H PRN Diarrhea #60 caps 09/02/22 A-D) metoprolol succinate 50 mg 50 mg PO QAM #90 tabs 09/02/22 tablet,extended release 24 hr ondansetron 8 mg disintegrating 8 mg PO Q8H #30 tabs 09/02/22 tablet apixaban 5 mg tablet (Eliquis) 5 mg PO BID #60 tabs 09/18/22 nystatin 100,000 unit/gram topical 1 appl topical DAILY PRN rash #30 09/18/22 cream grams amitriptyline 25 mg tablet 25 mg PO BEDTIME #30 tabs 09/20/22 duloxetine 60 mg capsule,delayed 60 mg PO BEDTIME #30 caps 09/20/22 release hydralazine 50 mg tablet 50 mg PO TID #90 tabs 09/20/22 atorvastatin 80 mg tablet 80 mg PO BEDTIME #30 tabs 09/22/22 fenofibrate nanocrystallized 48 mg 48 mg PO DAILY #30 tabs 09/22/22 tablet diltiazem HCl 240 mg 240 mg PO DAILY #60 caps 10/11/22 capsule,extended release 24 hr (Cardizem CD) diphenoxylate-atropine 2.5 1 tab PO DAILY #30 tabs 10/20/22 mg-0.025 mg tablet prochlorperazine maleate 10 mg 10 mg PO Q6H PRN Nausea #45 tabs 10/20/22 tablet (Compazine) ubrogepant 100 mg tablet (Ubrelvy) 50 - 100 mg PO ONCE PRN migraine 11/01/22 headache 30 days #16 tabs Magic Mouthwash 10 ml PO QID #240 mL 11/08/22 Diphen/Lido/Antacid 1:1:1 240 mL suspension clonazepam 0.5 mg tablet 0.5 mg PO BID PRN anxiety #60 tabs 11/09/22 diphenoxylate-atropine 2.5 1 tab PO BID-QID PRN Diarrhea #60 11/10/22 mg-0.025 mg tablet (Lomotil) tabs Allergies Allergy/AdvReac Type Severity Reaction Status Date / Time Penicillins Allergy Mild Rash Verified 11/10/22 16:31 venlafaxine [From Effexor] Allergy Mild Rash Verified 11/10/22 16:31 cyclobenzaprine Allergy Unknown Unknown Verified 11/10/22 16:31 [Cyclobenzaprine] topiramate [From Topamax] Allergy Unknown Unknown Verified 11/10/22 16:31 levofloxacin [From Levaquin] AdvReac Severe Diarrhea Verified 11/10/22 16:31 Sulfa (Sulfonamide AdvReac Severe Diarrhea Verified 11/10/22 16:31 Antibiotics) fentanyl [FENTANYL] AdvReac Intermediate Hallucinati Verified 11/10/22 16:31 ons [facility] Past Medical History Medical History Acute and chronic respiratory failure Adenocarcinoma of sigmoid colon (~2020) Atrial fibrillation with rapid ventricular response Back pain with history of spinal surgery Bilateral pneumonia Bipolar disorder (~2009) CAD (coronary artery disease) Cancer of lower lobe of left lung (~2020) Chronic back pain Colon cancer (~2020) Colostomy in place (~2020) Congestive heart failure COPD (chronic obstructive pulmonary disease) COVID-19 vaccine series completed Depression Essential hypertension Fibromyalgia GERD (gastroesophageal reflux disease) GI bleed High cholesterol History of COVID-19 (~04/2020) HTN (hypertension) Hypernatremia Hypoventilation associated with obesity Hypoxia Lung cancer No natural teeth Obesity Obesity hypoventilation syndrome IVY (obstructive sleep apnea) Other and unspecified hyperlipidemia Oxygen dependent Pericardial effusion Peripheral vascular disease Personal history of nicotine dependence Pleural effusion, left Pneumonia Polysubstance (including opioids) dependence, binge pattern Preoperative cardiovascular examination PTSD (post-traumatic stress disorder) Renal failure Respiratory failure with hypoxia and hypercapnia Restless legs syndrome (RLS) Restrictive lung disease Rotator cuff strain Sleep disorder Smoker UTI (urinary tract infection) Surgical History History of appendectomy (~1982) History of back surgery History of bunionectomy (~1977) History of cardiac cath (~2010) History of cholecystectomy History of colonoscopy (~08/2020) History of esophagogastroduodenoscopy (EGD) History of hysterectomy (~1990) History of lobectomy of lung (~08/2020) History of partial colectomy (~12/2020) Family History Family History Maternal Aunt Breast cancer Stroke COPD (chronic obstructive pulmonary disease) Maternal Aunt Breast cancer COPD (chronic obstructive pulmonary disease) Mother Uterine cancer COPD (chronic obstructive pulmonary disease) HTN (hypertension) Heart disease Maternal Uncle Stroke Paternal Grandmother Heart attack Sister Diabetes IBS (irritable bowel syndrome) Son HTN (hypertension) Daughter HTN (hypertension) Father HTN (hypertension) Brother Heart disease Social History Social History Household Members: Spouse Housing: House Are you a primary care administrative tech to a significant other at home: No Do you presently have visiting nurse or other home services: Yes Alcohol intake: never Patient Tobacco Use Status: Current everyday Tobacco user Tobacco use type: Cigarette Cigarettes Per Day: 4 Years Smoked: 40 e-Cigarette/Vaping Use: Never Used Second Hand Smoke Exposure: Yes Advance Directives: Yes Advance Directives on File: Yes Advance Directives Date on File: 10/05/22 service: No Current occupational status: unemployed and disabled Cognitive needs: Yes (walker ) Hearing needs: No Vision needs: No Physical Exam ED Vital Signs: Vital Signs - 24 hr 11/10/22 16:32 11/10/22 20:26 Temperature 96.8 F 98.3 F Pulse Rate 105 H 88 Respiratory Rate 18 16 Blood Pressure 140/79 H 145/74 H Pulse Oximetry 96 96 Oxygen Delivery Method Room Air Room Air BMI result Body Mass Index 34.3 Appearance: Alert. Oriented X3. No acute distress. Eyes: PERRLA, No Nystagmus ENT: Pharynx normal. Oral Mucosa dry Neck: Normal inspection. Neck supple. CVS: Normal heart rate and rhythm. Pulses normal. Respiratory: No respiratory distress. Equal air entry bilateral, no wheezing/rales/rhonchi Abdomen: Soft diffuse tenderness no rebound tenderness or guarding colostomy bag in place with brownish color loose stool Bowel sounds are present, no mass palpable, no CVA tenderness Skin: Skin warm and dry. Normal skin color. Normal skin turgor. Extremities: No lower extremity edema. No calf tenderness Neuro: Oriented X 3. No motor deficit. Course Course Course Narrative: 57 year old female with past medical history significant for colon cancer presents for evaluation of abdominal pain and diarrhea. She reports that she is currently undergoing chemo with her last treatment 9 days ago. She is followed by Dr. Ahumada. Patient has a colostomy from previous partial colectomy.. Plan for labs, GI panel. Patient is well-appearing in triage Medications Administered Discontinued Medications Generic Name Dose Route Start Last Admin Trade Name Freq PRN Reason Stop Dose Admin Heparin Sodium (Porcine) 50 0 units 11/11/22 00:00 11/10/22 23:10 units/ Sodium Chloride 5 ml IVFLUSH 50 unit QSHIFT LONG Administration Sodium Chloride 1,000 mls @ 999 mls/hr 11/10/22 20:11 11/10/22 20:29 Ns IV 11/10/22 21:11 999 mls/hr .Q1H1M ONE Administration Sodium Chloride 1,000 mls @ 999 mls/hr 11/10/22 20:11 11/10/22 20:30 Ns IV 11/10/22 21:11 999 mls/hr .Q1H1M ONE Administration Magnesium Sulfate 2 gm in 50 mls @ 100 mls/hr 11/10/22 21:11 11/10/22 21:20 Magnesium Sulfate/H2o IV 11/10/22 21:40 100 mls/hr ONCE ONE Administration Medical Decision Making Medical Decision Making [facility] Narrative: Patient with high-output colostomy labs are stable C diff also negative patient improved after IV hydration advised to take Lomotil and Imodium as prescribed and follow-up with oncologist/i&c technician Lab Data [facility] Lab Attestation statement: I reviewed the patient's lab results. 11/10/22 16:49 11/10/22 16:49 Labs: Lab Results 11/10/22 11/10/22 11/10/22 Range/Units 16:49 16:49 22:50 WBC 6.5 (4.8-10.8) X10*3/uL RBC 4.35 (4.20-5.50) X10*6/uL Hgb 12.7 (12.0-16.0) g/dl Hct 39.6 (37.0-47.0) % MCV 91.0 (80.0-98.0) fL MCH 29.2 (27.0-33.0) pg MCHC 32.1 (31.0-35.0) g/dl RDW 15.1 (11.0-16.0) % Plt Count 277 (160-400) X10*3/uL MPV 8.8 L (9.4-12.3) fL Immature Gran % (Auto) 2.6 H (0.0-0.4) % Neut % (Auto) 48.1 (45-73) % Lymph % (Auto) 40.4 H (20-40) % Upton % (Auto) 7.7 (2-11) % Eos % (Auto) 0.9 (0-4) % Baso % (Auto) 0.3 (0-2) % Lymph # (Auto) 2.6 (1.2-4.9) X10*3/uL Upton # (Auto) 0.5 (0.1-1.2) X10*3/uL Eos # (Auto) 0.1 (0.0-0.4) X10*3/uL Baso # (Auto) 0.0 (0.0-0.2) X10*3/uL Abs Immat Gran (auto) 0.17 H (0.00-0.03) X10*3/uL Absolute Neuts (auto) 3.1 (2.0-8.3) x10*3/uL Absolute Nucleated RBC 0.000 (0.0-0.012) X10*3/uL Nucleated RBC % (auto) 0.0 (0.0-0.2) /100WBC Sodium 140 (135-145) mmol/L Potassium 3.5 (3.3-5.1) mmol/L Chloride 104 (96-108) mmol/L Carbon Dioxide 26 (22-29) mmol/L Anion Gap 14 (12-20) BUN 10 (9-16) mg/dL Creatinine 0.81 (0.5-1.4) mg/dL Estim Creat Clear Calc 81.5 Estimated GFR > 60 Random Glucose 109 (60-115) mg/dL Calcium 8.7 D (8.4-10.2) mg/dL Magnesium 1.5 L (1.6-2.6) mg/dL Total Bilirubin 0.3 (0.0-1.0) mg/dL AST 14 (5-31) U/L ALT < 5 (0-31) U/L Alkaline Phosphatase 69 (39-117) U/L Total Protein 6.3 L (6.5-8.0) g/dL Albumin 3.6 (3.5-5.0) g/dL Lipase 11 (8-78) U/L C. difficile Tox B Gene NEGATIVE (Negative) Discharge Plan Discharge Clinical Impression: Chronic diarrhea, Hypomagnesemia Patient Disposition: Home, Self-Care Instructions: Chronic Diarrhea (ED), Hypomagnesemia (ED) Additional Instructions: Drink plenty of fluids You can take Lomotil 1 tablet every 6 hours as needed along with Imodium 2 mg every 6-8 for persistent diarrhea Follow-up with your i&c technician Take your magnesium tablets daily Prescriptions: No Action divalproex 500 mg tablet extended release 24 hr 1,000 mg PO QPM 90 Days Qty: 180 2RF cholecalciferol (vitamin D3) 1,250 mcg (50,000 unit) capsule 1,250 mcg PO QWEEK 56 Days Qty: 8 0RF Incruse Ellipta 62.5 mcg/actuation blister with device 1 inh inhalation DAILY Qty: 30 11RF ferrous sulfate [FeroSul] 325 mg (65 mg iron) tablet 325 mg PO BID Qty: 60 2RF Breo Ellipta 100-25 mcg/dose blister with device 1 inh INHALATION DAILY Qty: 60 3RF albuterol sulfate 90 mcg/actuation HFA aerosol inhaler 2 puff inhalation Q4-6H PRN (Reason: shortness of breath or wheezing) Qty: 8.5 0RF Rx Instructions: USES NEEDED, SELDOMLY omeprazole 20 mg capsule,delayed release(DR/EC) 20 mg PO BID Qty: 60 2RF metoprolol succinate 50 mg tablet extended release 24 hr 50 mg PO QAM Qty: 90 1RF Eliquis 5 mg tablet 5 mg PO BID Qty: 60 1RF nystatin 100,000 unit/gram cream 1 appl topical DAILY PRN (Reason: rash) Qty: 30 0RF duloxetine 60 mg capsule,delayed release(DR/EC) 60 mg PO BEDTIME Qty: 30 1RF amitriptyline 25 mg tablet 25 mg PO BEDTIME Qty: 30 1RF hydralazine 50 mg tablet 50 mg PO TID Qty: 90 1RF atorvastatin 80 mg tablet 80 mg PO BEDTIME Qty: 30 1RF fenofibrate nanocrystallized 48 mg tablet 48 mg PO DAILY Qty: 30 2RF diltiazem HCl [Cardizem CD] 240 mg capsule,extended release 24hr 240 mg PO DAILY Qty: 60 1RF Ubrelvy 100 mg tablet 50 - 100 mg PO ONCE PRN (Reason: migraine headache) 30 Days Qty: 16 3RF Rx Instructions: take at onset of migraine, may repeat in 2hrs (may take w/ Ibuprofen) clonazepam 0.5 mg tablet 0.5 mg PO BID PRN (Reason: anxiety) Qty: 60 0RF ondansetron 8 mg Tablet,Disintegrating 8 mg PO Q8H Qty: 30 4RF dexamethasone 4 mg Tablet 4 mg PO BID Qty: 60 3RF Rx Instructions: Take 4 mg p.o. b.i.d. for 2 days starting day after chemo, Q 2 weekly. loperamide [Imodium A-D] 2 mg Capsule 2 mg PO Q6H PRN (Reason: Diarrhea) Qty: 60 3RF diphenoxylate-atropine 2.5-0.025 mg Tablet 1 tab PO DAILY Qty: 30 2RF prochlorperazine maleate [Compazine] 10 mg Tablet 10 mg PO Q6H PRN (Reason: Nausea) Qty: 45 2RF Magic Mouthwash Diphen/Lido/Antacid 1:1:1 240 mL Suspension 10 ml PO QID Qty: 240 3RF Rx Instructions: Lidocaine Viscous 2 % 80mL; diphenhydramine 12.5 mg/5 mL 80mL; aluminum-mag hydrox-simeth [id number]/5mL 80mL diphenoxylate-atropine [Lomotil] 2.5-0.025 mg Tablet 1 tab PO BID-QID PRN (Reason: Diarrhea) Qty: 60 3RF (DME) blood pressure test kit-large Kit See Rx Instructions .ROUTE DIRECTED Qty: 1 Rx Instructions: As directed (DME) blood pressure monitor Kit See Rx Instructions .ROUTE .MEDSUPPLY Qty: 1 Rx Instructions: As directed riboflavin (vitamin B2) 400 mg tablet 400 mg PO DAILY 30 Days Qty: 30 6RF magnesium oxide 400 mg (241.3 mg magnesium) tablet 400 mg PO BEDTIME 30 Days Qty: 30 6RF Rx Instructions: may hold for loose stools peg 3350-electrolytes [Golytely] 236-22.74-6.74 -5.86 gram recon soln 240 ml PO Q10M Qty: 4000 0RF Rx Instructions: as per split prep instructions, until fecal effluent is clear docusate sodium 100 mg capsule 100 mg PO BID PRN (Reason: constipation) Interventions: ED Discharge Assessment Last Done: 11/10/22 23:16 Discharge Date/Time: 11/10/22 23:17
[2022-11-10 16:32] VITALS: BP 140/79; PULSE 105; RESP 18; TEMP 36; O2SAT 96; BMI 34.3
[2022-11-10 16:53] LABS: MANUAL DIFF FLAG NO
[2022-11-10 17:08] LABS: Basophils Percent Auto 0.3 % (0-2); Eosinophils Absolute Auto 0.1 X10*3/uL (0.0-0.4); Eosinophils Percent Auto 0.9 % (0-4); Hematocrit 39.6 % (37.0-47.0); Hemoglobin 12.7 g/dl (12.0-16.0); Imm Gran Abs Auto 0.17 X10*3/uL (0.00-0.03); Imm Gran Pct Auto 2.6 % (0.0-0.4); Lymphocytes Absolute Auto 2.6 X10*3/uL (1.2-4.9); Lymphocytes Percent Auto 40.4 % (20-40); Mean Corpuscular HGB Conc 32.1 g/dl (31.0-35.0); Mean Corpuscular Hemoglobin 29.2 pg (27.0-33.0); Mean Platelet Volume 8.8 fL (9.4-12.3); Monocytes Absolute Auto 0.5 X10*3/uL (0.1-1.2); Monocytes Percent Auto 7.7 % (2-11); Neutrophils Absolute Auto 3.1 x10*3/uL (2.0-8.3); Neutrophils Percent Auto 48.1 % (45-73); Platelet Count 277 X10*3/uL (160-400); Red Blood Count 4.35 X10*6/uL (4.20-5.50); Red Cell Distribution Width 15.1 % (11.0-16.0); White Blood Count 6.5 X10*3/uL (4.8-10.8)
[2022-11-10 17:21] LABS: Alanine Aminotransferase < 5 U/L (0-31); Albumin Level 3.6 g/dL (3.5-5.0); Alkaline Phosphatase 69 U/L (39-117); Anion Gap 14 (12-20); Aspartate Amino Transferase 14 U/L (5-31); Bilirubin Total 0.3 mg/dL (0.0-1.0); Blood Urea Nitrogen 10 mg/dL (9-16); Calcium 8.7 mg/dL (8.4-10.2); Carbon Dioxide 26 mmol/L (22-29); Chloride 104 mmol/L (96-108); Creatinine Clr Calc Pharmacy 81.5; Estimated Glomerular Filt Rate > 60; Glucose Random 109 mg/dL (60-115); Lipase 11 U/L (8-78); Potassium 3.5 mmol/L (3.3-5.1); Sodium 140 mmol/L (135-145); Total Protein 6.3 g/dL (6.5-8.0)
[2022-11-10 20:26] VITALS: BP 145/74; PULSE 88; RESP 16; TEMP 36.8; O2SAT 96
[2022-11-10] MEDS: 0.9 % Sodium Chloride 1,000 ML 999 ML IV ×2 (20:29→20:30)
[2022-11-10 20:33] LABS: Magnesium 1.5 mg/dL (1.6-2.6)
[2022-11-10] MEDS: Magnesium Sulfate/H2O 2 GM/50 ML PIGGYBACK IV (21:20)
[2022-11-10] MEDS: Heparin Sodium,Porcine Flush 50 UNITS, 0.9 % Sodium Chloride Flush 5 ML IVFLUSH (23:10)
[2022-11-11 00:19] LABS: CDiff Gene PCR NEGATIVE (Negative)
== END 2022-11-10 23:17 | disposition home or self-care (01) ==
PROVIDERS: Physician Assistant; Emergency Provider Internal Medicine; PCP Nurse Practitioner Family
DX: K52.9 Noninfective gastroenteritis and colitis, unspecified (principal); E83.42 Hypomagnesemia; C34.32 Malignant neoplasm of lower lobe, left bronchus or lung; C18.7 Malignant neoplasm of sigmoid colon; Z93.3 Colostomy status
CPT/HCPCS: 36415; 80053; 83690; 83735; 85025; 87493; 96374; 99283; 99284; J1642; J3475

== ENCOUNTER 2022-11-29 14:31 | Outpatient (REF) | payer MEDICARE, MEDICAID, SELFPAY | END 2022-11-29 14:32 | disposition home or self-care (01) | LOC: HO.US 14:31 | PROVIDERS: PCP Nurse Practitioner Family; Visit Provider Internal Medicine | DX: Z13.89 Encounter for screening for other disorder (principal) ==

== ENCOUNTER 2022-11-30 14:21 | Outpatient (REF) | payer MEDICARE, MEDICAID, SELFPAY ==
--- NOTE | ~2022-11-30 | US_ITS ---
EXAMINATION: ULTRASOUND EXTREMITY NONVASCULAR CLINICAL INFORMATION: Soft tissue swelling right upper outer arm. History of colon cancer. COMPARISON: None available. TECHNIQUE: Grayscale and color imaging of the soft tissues of the right upper arm in area of palpable abnormality. FINDINGS: There is question lobulated appearance of the subcutaneous fat versus lipoma with oval-shaped hypoechoic avascular areas. No suspicious soft tissue mass or fluid collection is seen. US/US extremity nonvascular IMPRESSION: Isoechoic areas questionable for heterogeneous appearance of subcutaneous fat vs possible lipoma.
== END 2022-11-30 14:22 | disposition home or self-care (01) ==
LOC: HO.US 14:21
PROVIDERS: PCP Nurse Practitioner Family; Visit Provider Internal Medicine
DX: M79.601 Pain in right arm (principal); M79.89 Other specified soft tissue disorders
CPT/HCPCS: 76882

== ENCOUNTER 2022-12-13 08:51 | Outpatient (REF) | payer MEDICARE, MEDICAID, SELFPAY | END 2022-12-13 08:52 | disposition home or self-care (01) | LOC: HO.LAB 08:51 | PROVIDERS: PCP Nurse Practitioner Family; Visit Provider Nurse Practitioner Family | DX: Z13.89 Encounter for screening for other disorder (principal) ==

== ENCOUNTER 2022-12-20 08:45 | Outpatient (REF) | payer MEDICARE, MEDICAID, SELFPAY ==
--- NOTE | ~2022-12-20 | PE_ITS ---
EXAMINATION: Fluorine-18 FDG PET/CT Scan CLINICAL INDICATION: Subsequent treatment management. Malignant neoplasm of colon. Restaging. PROCEDURE: 60 minutes following the intravenous administration of 17.60 mCi of fluorine 18 FDG, images from the base of the skull to the mid thighs were obtained using a combined PET/CT scanner with CT scan based attenuation correction. No intravenous contrast was administered. Transverse, coronal, sagittal, and volume reconstruction projections were obtained. The patient's blood glucose as determined by a finger stick, was 96 mg/dl immediately prior to injection. The radiotracer was injected intravenously through right hand superficial vein, without any complications. Total CT exam dose-length product 1110.33 mGy-cm * These CT images were obtained using dose optimization techniques as appropriate, variously including the following: Automated exposure control * Adjustment of mA and/or kV according to patient size (this includes techniques or standardized protocols for targeted exams where dose is matched to indication/reason for exam; i.e. extremities or head) * Use of iterative reconstruction technique COMPARISON: Most recent prior PET CT study done on 08/23/2022. FINDINGS: NECK AND VISUALIZED HEAD: No FDG avid focal disease, unchanged. Solitary subcentimeter calcified nodule is present at mid to inferior part of the left lobe of the thyroid gland. THORAX: Postsurgical changes of left lower lobe lobectomy are noted. No FDG avid lung nodule and/or mass on either side. There are no FDG avid mediastinal or hilar or axillary or internal mammary lymphadenopathy. Right-sided Port-A-Cath is present, appear in good position. ABDOMEN AND PELVIS: Subtle focal FDG avidity is noted along the subdiaphragmatic surface of left lobe of the liver, new since the prior study with SUV max of 6.0 (112/267), suspicious for interval development of metastatic disease. Follow-up multiphasic pre and postcontrast MRI of the liver may be considered for further full detail evaluation, if clinically appropriate. No FDG avid focal splenic or adrenal disease. The gallbladder is surgically absent. The biliary tree is unremarkable. There is a dense nodular calcification identified within the proximal part of the body of the pancreas with proximal pancreatic ductal dilatation, better evaluated on prior MRI of the abdomen dated 03/07/2022. No FDG avid disease within the pancreas. Interval development of focal FDG avidity is noted at the site of the postop changes involving the small bowel loop at the level of the umbilicus with SUV max of 6.6 (190/267), nonspecific in appearance, without any definite CT correlate, for which attention to follow-up is recommended. Previously documented FDG avid focal solid-appearing soft tissue mass seen within the left lower posterior lateral hemipelvis likely representing the site of primary colonic malignancy appear significantly smaller in size and is no longer FDG avid (266/349), consistent with interval therapeutic response. Postop changes of colostomy is noted at left mid to lower anterior abdominal wall. Previously documented FDG avidity at midline both above and below the level of the umbilicus and at the site of the colostomy, presumably representing postsurgical changes also show interval resolution. MUSCULOSKELETAL: No suspicious FDG avid disease. VASCULAR: Calcific atherosclerotic disease of the aorta and its branches including significant coronary artery calcifications are present. No evidence of aneurysm. SUV max OF MEDIASTINAL BLOOD POOL: 3.6 SUV max OF LIVER: 4.6 PET/PET CT fusion skull to thigh IMPRESSION: 1. Interval development of solitary focal FDG avidity within the subdiaphragmatic surface of left lobe of the liver (112/267), suspicious for metastatic disease. Multiphasic pre and postcontrast MRI of the liver is recommended for further full detail evaluation. 2. Interval decrease in size and interval resolution of FDG avidity involving the left lower posterior lateral hemipelvic soft tissue mass inseparable from the adjacent large bowel, most consistent with the primary site of disease showing complete metabolic response since the prior study dated 08/23/2022. 3. Interval resolution of intense FDG avidity along the midline throughout the entire abdomen above and below the umbilicus and at the site of the colostomy, most consistent with resolving postsurgical changes. 4. Interval development of nonspecific focal mild FDG avidity is noted at the site of bowel surgery is seen at the level of the pelvic inlet at midline with SUV max of 6.6 (190/267), without any definite correlate, for which attention to follow-up is recommended. 5. Persistent stable nonspecific non-FDG avid abnormality involving the pancreas, similar to the prior MRI of the abdomen done on 03/07/2022.
== END 2022-12-20 08:46 | disposition home or self-care (01) ==
LOC: HO.PET 08:45
PROVIDERS: PCP Nurse Practitioner Family; Visit Provider Internal Medicine
DX: Z13.89 Encounter for screening for other disorder (principal)

== ENCOUNTER 2023-01-02 10:07 | Outpatient (REF) | payer MEDICARE, MEDICAID, SELFPAY | END 2023-01-02 10:08 | disposition home or self-care (01) | LOC: HO.MRI 10:07 | PROVIDERS: PCP Nurse Practitioner Family; Visit Provider Internal Medicine | DX: Z13.89 Encounter for screening for other disorder (principal) ==

== ENCOUNTER 2023-01-09 15:33 | Outpatient (REF) | payer MEDICARE, MEDICAID, SELFPAY ==
--- NOTE | ~2023-01-09 | MR_ITS ---
EXAMINATION: MR ABDOMEN WITHOUT AND WITH CONTRAST CLINICAL INFORMATION: Colon cancer. Follow-up increased uptake along the diaphragmatic surface of the left lobe of the liver on CT scan COMPARISON: Previous abdominal MRI most recent March 2022, chest CT most recent September 2022 and PET/CT December 2022 TECHNIQUE: MR abdomen was performed without and with use of 9 mL intravenous Gadavist gadolinium contrast. Postcontrast images are performed in multiphase dynamic sequences. Imaging was performed in 3 planes. FINDINGS: LUNG BASES: Stable postsurgical changes to the left lung base. LIVER, GALLBLADDER, AND BILIARY TREE: There is fatty infiltration of the liver. The liver is normal in size and contour. 2 small simple appearing cysts seen in the right lobe and medial segment of the left lobe of the liver measuring 6 and 3 mm. PANCREAS: There are several small simple appearing cysts seen in the tail the pancreas. Largest measures 9 mm. There is mild dilatation of the main pancreatic duct in the IVC and tail the pancreas measuring up to 4 mm in the body of the pancreas and beaded appearance suggestive of changes from previous pancreatitis.. Calcification in the pancreas seen by CT not appreciated by MRI. Gallbladder has been removed. There is no intrahepatic biliary duct dilatation. There is mild dilatation of the common bile duct measuring up to 1.1 cm. This tapers smoothly in the head of the pancreas. No filling defect is appreciated. This is similar to previous exam and may be normal post cholecystectomy. SPLEEN: Normal. ADRENAL GLANDS: Normal. KIDNEYS AND URETERS: The kidneys are normal in size, shape, and enhance symmetrically. No hydronephrosis. No perinephric stranding. GASTROINTESTINAL TRACT: Left lower quadrant colostomy. No bowel obstruction. No ascites or fluid collection. ABDOMINAL WALL: Diastasis of the rectus muscles. Parastomal hernia containing fat and bowel. LYMPH NODES: No lymphadenopathy. VASCULAR: Unremarkable. OSSEOUS STRUCTURES: Postsurgical changes to the lower lumbar spine. MR/MR abdomen wo/w con IMPRESSION: No suspicious liver lesion seen. 2 small liver cysts. Probable stable changes of chronic pancreatitis with small cysts in the tail the pancreas and mild dilatation and beading of the main pancreatic duct.
== END 2023-01-09 15:34 | disposition home or self-care (01) ==
LOC: HO.MRI 15:33
PROVIDERS: PCP Nurse Practitioner Family; Visit Provider Internal Medicine
DX: C18.7 Malignant neoplasm of sigmoid colon (principal)
CPT/HCPCS: 74183; A9585

== ENCOUNTER 2023-01-19 14:10 | Outpatient (AMB) | payer MEDICARE, MEDICAID, SELFPAY ==
[2023-01-19 14:18] VITALS: BP 116/80; PULSE 97; O2SAT 94; BMI 35.4
--- NOTE | 2023-01-19 14:18 | A.OFFPC_ITS ---
Vital Signs 01/19/23 14:18 Height 5 ft 4 in Weight 206 lb 2 oz BMI 35.4 BP 116/80 Blood Pressure Location Lt brachial Position Sitting Pulse 97 Pulse Source Pulse Oximeter Pulse Oximetry (%) 94 Oxygen Delivery Method Room Air Intake Visit Reasons: Fibromyalgia Peanut Cleaner Required: No Accompanied by: Self / Same As Patient Allergies Penicillins Allergy (Mild, Verified 01/19/23 14:48) Rash venlafaxine [From Effexor] Allergy (Mild, Verified 01/19/23 14:48) Rash cyclobenzaprine [Cyclobenzaprine] Allergy (Unknown, Verified 01/19/23 14:48) Unknown topiramate [From Topamax] Allergy (Unknown, Verified 01/19/23 14:48) Unknown levofloxacin [From Levaquin] Adverse Reaction (Severe, Verified 01/19/23 14:48) Diarrhea Sulfa (Sulfonamide Antibiotics) Adverse Reaction (Severe, Verified 01/19/23 14:48) Diarrhea fentanyl [FENTANYL] Adverse Reaction (Intermediate, Verified 01/19/23 14:48) Hallucinations Medication List - Last Reconciled 01/19/23 by GAYATHRI Fagan albuterol sulfate 90 mcg/actuation 2 puffs inhalation Q4-6H PRN alprazolam (Xanax) 0.5 mg PO ONCE PRN amitriptyline 25 mg PO BEDTIME apixaban (Eliquis) 5 mg PO BID atorvastatin 80 mg PO BEDTIME blood pressure monitor As directed blood pressure test kit-large As directed cholecalciferol (vitamin D3) 1,250 mcg PO QWEEK 8 weeks clonazepam 0.5 mg PO BID PRN dexamethasone 4 mg PO BID diltiazem HCl (Cardizem CD) 240 mg PO DAILY diphenoxylate-atropine 2.5-0.025 mg (Lomotil) 1 tab PO BID-QID PRN diphenoxylate-atropine 2.5-0.025 mg 1 tab PO DAILY divalproex ER 1,000 mg (2 x 500 mg) PO QPM 90 days docusate sodium 100 mg PO BID PRN duloxetine 60 mg PO BEDTIME fenofibrate nanocrystallized 48 mg PO DAILY ferrous sulfate (FeroSul) 325 mg PO BID fluticasone furoate-vilanterol 100-25 mcg/dose (Breo Ellipta) 1 inh inhalation DAILY hydralazine 50 mg PO TID loperamide (Imodium A-D) 2 mg PO Q6H PRN Magic Mouthwash Diphen/Lido/Antacid 1:1:1 10 mL PO QID magnesium oxide 400 mg PO BEDTIME 30 days metoprolol succinate ER 50 mg PO QAM nystatin 1 appl topical DAILY PRN omeprazole 20 mg PO BID ondansetron 8 mg PO Q8H peg 3350-electrolytes 236-22.74-6.74 -5.86 gram (Golytely) 240 mL PO Q10M prochlorperazine maleate (Compazine) 10 mg PO Q6H PRN riboflavin (vitamin B2) 400 mg PO DAILY 30 days ubrogepant (Ubrelvy) 50 - 100 mg (0.5 - 1 x 100 mg) PO ONCE PRN 30 days umeclidinium 62.5 mcg/actuation (Incruse Ellipta) 1 inh inhalation DAILY Tobacco use date assessed: 09/06/22 Dental Screening Dental Screen Date: 01/19/23 Did you have a dental visit in the last 12 months?: No Did you have a dental problem in the last 6 months where you did not have access to dental care?: No Was dental information given to patient?: No HPI HPI Comments History of Present Illness Details 57-year-old female history CHF, GI bleed, depression, PTSD, IVY, polysubstance abuse, hypertension, COPD, CAD,PAF, left lower lobe lung cancer and adenocarcinoma of sigmoid colon. Patient of Kathy Tran last seen in september, patient presents today for follow up visit. Follow with pulmonology, patient had significant weight loss status post resection so clinically IVY has resolved. Patient was also seen by thoracic surgery did CT chest with did not new disease, patient did report that she was starting chemotherapy for recurrence or metastatic deposit in her pelvis during recent surgery for small- bowel obstruction. Patient started on chemotherapy for recurrence of her colon cancer. Patient states recent PET scan was goos and will be transitioning to oral chemo. Patient reports that her fibromyalgia pain has been rather not currently taking any medication this time. Patient states will take [id number] Tylenol as needed for pain. Patient reports she was previously followed by a blue leather sorter and was on medication for fibromyalgia however this was continues continued years ago. Will refer patient to Rheumatology to establish care. PFSH Medical History (Updated 01/19/23 @ 14:51 by GAYATHRI Fagan) Acute and chronic respiratory failure Adenocarcinoma of sigmoid colon (~2020) Atrial fibrillation with rapid ventricular response Back pain with history of spinal surgery Bilateral pneumonia Bipolar disorder (~2009) CAD (coronary artery disease) Cancer of lower lobe of left lung (~2020) Chronic back pain Colon cancer (~2020) Colostomy in place (~2020) Congestive heart failure COPD (chronic obstructive pulmonary disease) COVID-19 vaccine series completed Depression Essential hypertension Fibromyalgia GERD (gastroesophageal reflux disease) GI bleed High cholesterol History of COVID-19 (~04/2020) HTN (hypertension) Hypernatremia Hypoventilation associated with obesity Hypoxia Lung cancer No natural teeth Obesity Obesity hypoventilation syndrome IVY (obstructive sleep apnea) Other and unspecified hyperlipidemia Oxygen dependent Pericardial effusion Peripheral vascular disease Personal history of nicotine dependence Pleural effusion, left Pneumonia Polysubstance (including opioids) dependence, binge pattern Preoperative cardiovascular examination PTSD (post-traumatic stress disorder) Renal failure Respiratory failure with hypoxia and hypercapnia Restless legs syndrome (RLS) Restrictive lung disease Rotator cuff strain Sleep disorder Smoker UTI (urinary tract infection) Surgical History History of appendectomy (~1982) History of back surgery History of bunionectomy (~1977) History of cardiac cath (~2010) History of cholecystectomy History of colonoscopy (~08/2020) History of esophagogastroduodenoscopy (EGD) History of hysterectomy (~1990) History of lobectomy of lung (~08/2020) History of partial colectomy (~12/2020) Family History Maternal Aunt Breast cancer Stroke COPD (chronic obstructive pulmonary disease) Maternal Aunt Breast cancer COPD (chronic obstructive pulmonary disease) Mother Uterine cancer COPD (chronic obstructive pulmonary disease) HTN (hypertension) Heart disease Maternal Uncle Stroke Paternal Grandmother Heart attack Sister Diabetes IBS (irritable bowel syndrome) Son HTN (hypertension) Daughter HTN (hypertension) Father HTN (hypertension) Brother Heart disease Social History Household Members: Spouse Housing: House Are you a primary care information associate to a significant other at home: No Do you presently have visiting nurse or other home services: Yes Alcohol intake: never Patient Tobacco Use Status: Current everyday Tobacco user Tobacco use type: Cigarette Cigarettes Per Day: 4 Years Smoked: 40 e-Cigarette/Vaping Use: Never Used Second Hand Smoke Exposure: Yes Advance Directives Date on File: 10/05/22 service: No Current occupational status: unemployed and disabled Cognitive needs: Yes (walker ) Hearing needs: No Vision needs: No Questionnaire PHQ-9 Over the last 2 weeks, how often have you been bothered by any of the following problems? 1. Little interest or pleasure in doing things: several days 2. Feeling down, depressed, or hopeless: several days 3. Trouble falling or staying asleep, or sleeping too much: more than half the days 4. Feeling tired or having little energy: more than half the days 5. Poor appetite or overeating: several days 6. Feeling bad about yourself - or that you are a failure or have let yourself or your family down: nearly every day 7. Trouble concentrating on things, such as reading the newspaper or watching television: nearly every day 8. Moving or speaking so slowly that other people could have noticed. Or the opposite - being so fidgety or restless that you have been moving around a lot more than usual: not at all 9. Thoughts that you would be better off or of hurting yourself in some way: not at all Total score: 13 Depression Screening Interpretation: Positive Depression Screening Follow-up: In treatment Source: Developed by Drs. Parrish Hernandez, Claire Washington, Maxwell Oquendo and colleagues, with an educational skip from [employer]. Thrive Questionnaire Date Thrive assessed: 01/19/23 I am a: Patient What is your living situation today?: I have a steady place to live Within the past 12 months, did the food you bought not last and you didn't have the money to get more?: Never true Within the past 12 months, did you worry whether your food would run out before you got money to buy more?: Never true Do you have trouble paying for medicines?: No Do you have trouble getting transportation to medical appointments?: No Do you have trouble paying your heating and electricity bill?: No Do you have trouble taking care of your child, family member or friend?: No Do you have trouble with day-to-day activities such as bathing, preparing meals, shopping, managing finances, etc.?: No Are you currently unemployed and looking for a job?: No Are you interested in more education?: No Please select the resources that you would like help with: None Currently or been in a relationship where the following occur: no concerns reported AUDIT C Alcohol Use Questionnaire (AUDIT-C) 1. How often do you have a drink containing alcohol?: Never 2. How many drinks containing alcohol do you have on a typical day when you are drinking?: 1 or 2 (0) 3. How often do you have six or more drinks on one occasion?: Never Total Score: 0 Score Reviewed/Action Taken: No MARIA INES-7 AMB Questionnaire MARIA INES-7 Date MARIA INES - 7 assessed: 01/19/23 Feeling nervous, anxious, or on edge: 0 = Not at all Not being able to stop or control worryin = Not at all Worrying too much about different things: 0 = Not at all Trouble relaxin = Not at all Being so restless that it is hard to sit still: 0 = Not at all Becoming easily annoyed or irritable: 0 = Not at all Feeling afraid as if something awful might happen: 0 = Not at all Total MARIA INES-7 score (0-4 normal; 5-9 mild; 10-14 moderate; 15-21 severe): 0 Source: Developed by Drs. Parrish Hernandez, Claire Washington, Maxwell Oquendo and colleagues, with an educational skip from [employer]. MARIA INES-7 Assessment Billing MARIA INES-7 Assessment Tool: MARIA INES-7 Assessment 66582 Review of Systems Const Denies chills, Denies fatigue, Denies fever(s) and Denies poor appetite Eyes Denies no additional complaints ENT Reports Normal hearing present Card Denies chest pain, Denies syncope, Denies rapid heart rate and Denies dyspnea Resp Denies cough and Denies dyspnea GI Denies change in stool character, Denies constipation, Denies diarrhea, Denies nausea and Denies vomiting Denies urinary frequency, Denies dysuria and Denies urinary urgency Neuro Reports Normal hearing present, Denies confusion and Denies syncope Psych Denies confusion Endo Denies fatigue Physical exam (Primary Care) Vital Signs: Last Vital Signs Pulse 97 01/19/23 14:18 BP 116/80 01/19/23 14:18 Pulse Ox 94 01/19/23 14:18 Oxygen Delivery Method Room Air 01/19/23 14:18 BMI result Body Mass Index 35.4 Tobacco/Smoking Status: Tobacco use Status Tobacco use date assessed 09/06/22 01/19/23 14:25 Patient Tobacco Use Status Current everyday Tobacco 01/19/23 14:25 Tobacco use type Cigarette 01/19/23 14:25 e-Cigarette/Vaping Use Never Used 01/19/23 14:25 PHQ-9: PHQ-9 Score PHQ-9: Total score 13 01/19/23 14:38 Depression Screening Interpretation: Positive Depression Screening Follow-up: In treatment Thrive Assessment: Date of Thrive Assessment Date Thrive assessed 01/19/23 01/19/23 14:25 Currently or been in a relationship where the following occur: no concerns reported Const General: No confusion Orientation/consciousness: No confusion HENMT Head: Yes normocephalic and Yes atraumatic Eyes Conjunctivae: conjunctivae normal Chest Chest palpation & inspection: normal inspection of the chest Resp Effort & Inspection: normal respiratory effort Auscultation: clear to auscultation bilaterally, no crackles, no rhonchi and no wheezes Cardio Rate: regular rate Rhythm: regular rhythm Heart sounds: S1 normal heart sound present and S2 normal heart sound present Peripheral pulses: dorsalis pedis present GI Inspection: Yes normal to inspection General: Yes no CVA tenderness Back/Spine/Pelvis Back: no CVA tenderness Neuro General: No confusion Cranial nerves: Yes Normal hearing present Extrem General: No edema Assessment and Plan Assessment & Plan (1) Fibromyalgia: Code(s): M79.7 - Fibromyalgia Plan: Referral entered to rheumatology. (2) PAF (paroxysmal atrial fibrillation): Onset Date: ~2020 Code(s): I48.0 - Paroxysmal atrial fibrillation Plan: Continue on Eliquis 5 mg b.i.d. Cardizem 240 for anticoagulation and rate control (3) Colostomy in place: Onset Date: ~2020 Comment: (s/p sigmoidectomy/colostomy 12/2020 - for adenocarcinoma of colon) Code(s): Z93.3 - Colostomy status (4) Adenocarcinoma of sigmoid colon: Onset Date: ~2020 Code(s): C18.7 - Malignant neoplasm of sigmoid colon Plan: Continue to follow with Oncology. (5) HTN (hypertension): Code(s): I10 - Essential (primary) hypertension Plan: Continue on metoprolol 50 mg q.a.m. and hydralazine 50 mg t.i.d. Follow low-salt diet and exercise. (6) IVY (obstructive sleep apnea): Comment: PATIENT DOES HAVE HISTORY OF OBSTRUCTIVE SLEEP APNEA, SHE WAS NEVER KEEN TO USE THE CPAP/BIPAP AND REMAINED NON COMPLIANT, SO SHE [place] [facility] [place] BECAUSE OF SIGNIFICANT WEIGHT LOSS AFTER COLON RESECTION. CLINICALLY HER IVY HAS RESOLVED. Code(s): G47.33 - Obstructive sleep apnea (adult) (pediatric) Plan: Continue to follow-up pulmonology. Since colon resection IVY clinically resolved. Plan Follow-up in 3 months or sooner if needed. Orders: Orders Lipid Panel Today E78.00 - Pure hypercholesterolemia, unspecified Referrals Rheumatology Referral M79.7 - Fibromyalgia Medications: Discontinued ondansetron 8 mg PO Q8H 30 tabs 4RF prochlorperazine maleate 10 mg PO Q6H PRN 45 tabs 2RF Nausea prochlorperazine maleate 10 mg PO Q6H PRN 45 tabs 2RF Nausea Coding Level of Care Code Est Pt Level 4 (33462) Diagnoses Fibromyalgia M79.7 PAF (paroxysmal atrial fibrillation) I48.[address] Z93.3 Adenocarcinoma of sigmoid colon C18.7 HTN (hypertension) I10 IVY (obstructive sleep apnea) G47.33 Additional Codes MARIA INES-7 Assessment Billing - MARIA INES-7 Assessment Tool: MARIA INES-7 Assessment 34696 ([id number]) PHQ-9 - 53911 - PHQ-9 Billing: Y ([id number])
== END 2023-01-19 14:56 | disposition home or self-care (01) ==
PROVIDERS: PCP Nurse Practitioner Family; Visit Provider Nurse Practitioner Family
DX: M79.7 Fibromyalgia (principal); I48.0 Paroxysmal atrial fibrillation; C18.7 Malignant neoplasm of sigmoid colon; Z93.3 Colostomy status; I10 Essential (primary) hypertension
CPT/HCPCS: 99214

== ENCOUNTER 2023-04-19 12:41 | Outpatient (REF) | payer MEDICARE, MEDICAID, SELFPAY ==
--- NOTE | ~2023-04-19 | XR_ITS ---
EXAMINATION: XR CHEST CLINICAL INFORMATION: Hypoxia. Cough COMPARISON: CT chest 09/12/2022. TECHNIQUE: Frontal view of the chest was obtained. FINDINGS: Chronic elevation of the left hemidiaphragm. Lungs grossly clear. Right-sided port noted. Heart size normal with normal caliber pulmonary vessels. There is degenerative change in both shoulder joints. XR/XR chest 1V IMPRESSION: No active disease.
== END 2023-04-19 12:42 | disposition home or self-care (01) ==
LOC: HO.XRAY 12:41
PROVIDERS: Visit Provider Internal Medicine
DX: R09.02 Hypoxemia (principal); R05.9 Cough, unspecified
CPT/HCPCS: 71045; 94618; 99212

== ENCOUNTER 2023-04-19 14:35 | Outpatient (AMB) | payer MEDICARE, MEDICAID, SELFPAY ==
[2023-04-19 14:44] VITALS: BP 128/62; PULSE 100; O2SAT 97
--- NOTE | 2023-04-19 14:44 | A.OFFVIS_ITS ---
Intake Vital Signs 04/19/23 14:44 BP 128/62 Blood Pressure Location Lt brachial Position Sitting Pulse 100 Pulse Oximetry (%) 97 Oxygen Delivery Method Nasal Cannula Oxygen Flow Rate 3 Intake Visit Reasons: Hypoxia Allergies Penicillins Allergy (Mild, Verified 04/19/23 16:11) Rash venlafaxine [From Effexor] Allergy (Mild, Verified 04/19/23 16:11) Rash cyclobenzaprine [Cyclobenzaprine] Allergy (Unknown, Verified 04/19/23 16:11) Unknown topiramate [From Topamax] Allergy (Unknown, Verified 04/19/23 16:11) Unknown levofloxacin [From Levaquin] Adverse Reaction (Severe, Verified 04/19/23 16:11) Diarrhea Sulfa (Sulfonamide Antibiotics) Adverse Reaction (Severe, Verified 04/19/23 16:11) Diarrhea fentanyl [FENTANYL] Adverse Reaction (Intermediate, Verified 04/19/23 16:11) Hallucinations Medication List - Last Reconciled 04/19/23 by Eduardo Cowan MD albuterol sulfate 90 mcg/actuation 2 puffs inhalation Q4-6H PRN alprazolam (Xanax) 0.5 mg PO ONCE PRN amitriptyline 25 mg PO BEDTIME apixaban (Eliquis) 5 mg PO BID atorvastatin 80 mg PO BEDTIME blood pressure monitor As directed blood pressure test kit-large As directed clonazepam 0.5 mg PO BID PRN dexamethasone 4 mg PO BID diltiazem HCl (Cardizem CD) 240 mg PO DAILY diphenoxylate-atropine 2.5-0.025 mg (Lomotil) 1 tab PO BID-QID PRN divalproex ER 500 mg PO DAILY divalproex ER 1,000 mg (2 x 500 mg) PO QPM 90 days docusate sodium 100 mg PO BID PRN duloxetine 60 mg PO BEDTIME fenofibrate nanocrystallized 48 mg PO DAILY ferrous sulfate (FeroSul) 325 mg PO BID fluticasone furoate-vilanterol 100-25 mcg/dose (Breo Ellipta) 1 inh inhalation DAILY hydralazine 50 mg PO TID loperamide (Imodium A-D) 2 mg PO Q6H PRN Magic Mouthwash Diphen/Lido/Antacid 1:1:1 10 mL PO QID magnesium oxide 400 mg PO BEDTIME 30 days metoprolol succinate ER 50 mg PO QAM nystatin 1 appl topical DAILY PRN olanzapine 5 mg PO DAILY omeprazole 20 mg PO BID ondansetron 8 mg PO Q8H peg 3350-electrolytes 236-22.74-6.74 -5.86 gram (Golytely) 240 mL PO Q10M riboflavin (vitamin B2) 400 mg PO DAILY 30 days ubrogepant (Ubrelvy) 50 - 100 mg (0.5 - 1 x 100 mg) PO ONCE PRN 30 days umeclidinium 62.5 mcg/actuation (Incruse Ellipta) 1 inh inhalation DAILY Do you need a note to return to daycare/school/sports/work: No HPI Hypoxia HPI Details THIS 57 YEARS OLD FEMALE, WAS BROUGHT IN TO OUR OFFICE ON AN URGENT BASIS, BECAUSE WHEN SHE WAS IN ONCOLOGY DEPARTMENT, FOR HER CHEMOTHERAPY. SHE WAS NOTED TO BE HYPOXEMIC, WITH O2 SAT FALLING DOWN INTO MID 70S. SHE WAS ON OXYGEN SUPPLEMENTS THROUGHOUT HER TREATMENT OVER THE. THIS PATIENT DOES HAVE CHRONIC OBSTRUCTIVE PULMONARY DISEASE AND IN ADDITION TO MULTIPLE COMORBIDITIES. SHE HAS HAD LEFT LOWER LOBECTOMY FOR ADENO CARCINOMA OF THE LUNG, SHE ALSO HAS HAD ADENO CARCINOMA OF THE COLON AND HISTORY OF RESECTION WITH PERMANENT COLOSTOMY. IN THE PAST HAS BEEN ON OXYGEN THERAPY BUT SHE HAD STOPPED USING THE O2 WELL CPAP. SHE MISSED A FEW APPOINTMENTS MY OFFICE. TODAY SHE WAS BROUGHT IN FROM ONCOLOGY DEPARTMENT TO THE OFFICE. SHE WAS STARTED ON O2 SUPPLEMENT AT 2 L/MINUTE WHICH BROUGHT HER O2 SAT ABOVE 90%. BUT WITH ANY MINIMAL EFFORT OR WALKING HER O2 SATS DROPPED DOWN AGAIN AND THE O2 SUPPLEMENTATION HAD TO BE INCREASED TO 3 L/MINUTE. PATIENT DENIES ANY ACUTE RESPIRATORY INFECTION. SHE HAS BEEN USING BREO 1 INHALATION DAILY AND USES ALBUTEROL HFA P.R.N. FORMERLY [facility], 1928–1983 Medical History Smoker Chronic back pain Colostomy in place (~2020) Personal history of nicotine dependence Polysubstance (including opioids) dependence, binge pattern Atrial fibrillation with rapid ventricular response Congestive heart failure Restrictive lung disease COPD (chronic obstructive pulmonary disease) No natural teeth COVID-19 vaccine series completed History of COVID-19 (~04/2020) Oxygen dependent Pericardial effusion Other and unspecified hyperlipidemia Essential hypertension Peripheral vascular disease Preoperative cardiovascular examination Bilateral pneumonia Adenocarcinoma of sigmoid colon (~2020) Hypernatremia GI bleed UTI (urinary tract infection) Pleural effusion, left Colon cancer (~2020) IVY (obstructive sleep apnea) Cancer of lower lobe of left lung (~2020) GERD (gastroesophageal reflux disease) Acute and chronic respiratory failure Lung cancer Obesity Hypoventilation associated with obesity Obesity hypoventilation syndrome Respiratory failure with hypoxia and hypercapnia Rotator cuff strain Hypoxia Pneumonia Restless legs syndrome (RLS) Sleep disorder Bipolar disorder (~2009) Back pain with history of spinal surgery Renal failure Fibromyalgia Depression High cholesterol PTSD (post-traumatic stress disorder) CAD (coronary artery disease) HTN (hypertension) Surgical History History of partial colectomy (~12/2020) History of cardiac cath (~2010) History of hysterectomy (~1990) History of cholecystectomy History of appendectomy (~1982) History of colonoscopy (~08/2020) History of lobectomy of lung (~08/2020) History of esophagogastroduodenoscopy (EGD) History of bunionectomy (~1977) History of back surgery Family History Maternal Aunt Breast cancer Stroke COPD (chronic obstructive pulmonary disease) Maternal Aunt Breast cancer COPD (chronic obstructive pulmonary disease) Mother Uterine cancer COPD (chronic obstructive pulmonary disease) HTN (hypertension) Heart disease Maternal Uncle Stroke Paternal Grandmother Heart attack Sister Diabetes IBS (irritable bowel syndrome) Son HTN (hypertension) Daughter HTN (hypertension) Father HTN (hypertension) Brother Heart disease Social History Household Members: Spouse Housing: House Are you a primary critical care unit nurse to a significant other at home: No Do you presently have visiting nurse or other home services: Yes Alcohol intake: never Patient Tobacco Use Status: Current everyday Tobacco user Tobacco use type: Cigarette Cigarettes Per Day: 4 Years Smoked: 40 e-Cigarette/Vaping Use: Never Used Second Hand Smoke Exposure: Yes Advance Directives Date on File: 10/05/22 service: No Current occupational status: unemployed and disabled Cognitive needs: Yes (walker ) Hearing needs: No Vision needs: No Review of Systems Const All systems reviewed & are unremarkable except as noted in HPI and below ENT Denies nasal congestion and Denies nasal discharge Card Denies chest pain, Denies leg edema and Reports dyspnea on exertion (MODERATE ) Resp Reports cough (MILD , OCCASIONAL ), Denies hemoptysis, Reports dyspnea on exertion (MODERATE ) and Denies wheezing GI Reports no additional complaints Musc Reports abnormal gait (IMPAIRED GAIT , SEC TO MUSCULAR WEAKNESS ) and Reports back pain (MILD ) Neuro Reports abnormal gait (IMPAIRED GAIT , SEC TO MUSCULAR WEAKNESS ) Psych Reports no additional complaints Endo Reports no additional complaints Aller/Immun Denies wheezing Physical Exam Vital Signs: Last Vital Signs Pulse 100 04/19/23 14:44 BP 128/62 04/19/23 14:44 Pulse Ox 97 04/19/23 14:44 Oxygen Delivery Method Nasal Cannula 04/19/23 14:44 Oxygen Flow Rate 3 04/19/23 14:44 Const General: comfortable, no acute distress, alert and awake Orientation/consciousness: patient oriented x3 HEENT Head: Yes normal to inspection General nose exam: No nasal polyps present and No nasal discharge present Face and sinus: Yes sinuses nontender Mouth: oropharynx normal Throat: Yes posterior oropharynx normal Eyes General: appearance normal, both eyes and all related structures Neck Neck: Yes normal visual inspection, Yes no lymphadenopathy, Yes trachea midline and Yes no JVD Thyroid: Thyroid normal Chest Chest palpation & inspection: normal inspection of the chest, normal palpation of entire chest wall and no tenderness Resp Other: PERCUSSION NOTE RESONANT, BREATH SOUNDS ARE SLIGHTLY DISTANT ESPECIALLY OVER THE BASILAR AREAS. NO WHEEZES OR RHONCHI ARE HEARD. Cardio Palpation: normal PMI Rate: regular rate Rhythm: regular rhythm Heart sounds: no gallops and no murmurs GI Palpation (GI): Soft to palpation, nontender, No hepatosplenomegaly present, no masses and Other GI palpation findings present (COLOSTOMY IN THE LEFT UPPER QUADRANT AND ALSO extensive surgical scar) Auscultation: normal bowel sounds Back/Spine/Pelvis Thoracic/Lumbar Spine: thoracic and lumbar spine normal to inspection and thoraco-lumbar ROM limited Skin General skin exam: no rashes or lesions noted Neuro General: patient oriented x3, No gait normal (GAIT IS IMPAIRED AND SHE HAS TO USE WALKER) and no focal motor deficits Cranial nerves: Yes CN's II-XII intact bilaterally Extrem General: Yes normal to inspection, Yes no clubbing, cyanosis or edema and Yes no calf tenderness Psych Appearance: grossly normal and well kempt Speech and movement: Normal speech and movement present Office Procedures 6 Minute Walk Time:: 14:45 SPO2 % at rest: 88 Pulse at rest: 105 SPO2 % during excercise: 84 Pulse during excercise: 110 SPO2 % after excercise: 94 Pulse after excercise: 100 Performance Observations:: Claire's SPO2 on room air was 88% O2 started at 2 lpm and her SPO2 recovered to 92%. with ambulation her SPO2 decreased to 84% O2 increased to 3 lpm and her SPO2 recovered to 95-97% [id number] - 6 Minute Walk Results Reviewed Results Reviewed: 6 MINUTES WALK, O2 SAT AT REST 88%, ON MINIMAL WALKING 84%. ON OXYGEN 2 L/MINUTE AT REST 94%, ON WALKING 84% AND O2 FLOW HAD TO BE INCREASED TO 3 L/MINUTE. Assessment & Plan Assessment & Plan (1) Smoker: Comment: Patient has lifelong history of smoking. Unfortunately still smokes but down to about 3 cigarettes a day. She was counseled to quit completely. Code(s): F17.200 - Nicotine dependence, unspecified, uncomplicated (2) Cancer of lower lobe of left lung: Onset Date: ~2020 Comment: (Adenocarcinoma, pT1c, pN0, MX - s/p LLL lobectomy 09/01/20) Current CT scan does show presence of a few small pulmonary nodules in the left lower lobe area . Patient will be following up with with Dr. Breanne Cota Code(s): C34.32 - Malignant neoplasm of lower lobe, left bronchus or lung (3) Adenocarcinoma of sigmoid colon: Onset Date: ~2020 Comment: s/p resection , and has permanant Colostomy Code(s): C18.7 - Malignant neoplasm of sigmoid colon (4) COPD (chronic obstructive pulmonary disease): Comment: CLINICALLY THE PATIENT DOES HAVE CHRONIC OBSTRUCTIVE PULMONARY DISEASE, SEEMS TO BE QUITE STABLE AT THIS TIME WITH THE CURRENT REGIMEN. TX : CONTINUE TO USE: BREO ELLIPTA 100-50 1 INHALATION DAILY INCRUSE ELLIPTA 1 INHALATION DAILY ALBUTEROL HFA 2 PUFFS Q 4-6 HOURS P.R.N. Code(s): J44.9 - Chronic obstructive pulmonary disease, unspecified Qualifiers: COPD type: COPD with acute exacerbation Qualified Code(s): J44.1 - Chronic obstructive pulmonary disease with (acute) exacerbation (5) IVY (obstructive sleep apnea): Comment: PATIENT DOES HAVE HISTORY OF OBSTRUCTIVE SLEEP APNEA, SHE WAS NEVER KEEN TO USE THE CPAP/BIPAP AND REMAINED NON COMPLIANT, SO SHE RETURNED HER CPAP DEVICE TO DME. IN 2021 BECAUSE OF SIGNIFICANT WEIGHT LOSS AFTER COLON RESECTION. CLINICALLY HER IVY HAS RESOLVED. Code(s): G47.33 - Obstructive sleep apnea (adult) (pediatric) (6) Respiratory failure with hypoxia and hypercapnia: Comment: ,, The patient has. Had hypoxemia and was on oxygen therapy. However she had stop using the oxygen on her own and return the equipment. Today she is found to be quite hypoxemic, and has been restarted on oxygen supplementation. Order for oxygen is being sent to the DME. Use 2 L/minute at rest and 3 L/minute on walking or doing any physical work. Her respiratory failure with CO2 retention which for which she was treated in May 2020, has resolved. Code(s): J96.91 - Respiratory failure, unspecified with hypoxia; J96.92 - Respiratory failure, unspecified with hypercapnia Qualifiers: Chronicity: acute on chronic Qualified Code(s): J96.21 - Acute and chronic respiratory failure with hypoxia; J96.22 - Acute and chronic respiratory failure with hypercapnia Orders: Orders AMB 6 minute walk Today J44.9 - Chronic obstructive pulmonary disease, unspecified Coding Level of Care Code Est Pt Level 4 (66034) Diagnoses Smoker F17.200 Cancer of lower lobe of left lung C34.32 Adenocarcinoma of sigmoid colon C18.7 Chronic obstructive pulmonary disease with acute exacerbation J44.1 COPD type: COPD with acute exacerbation IVY (obstructive sleep apnea) G47.33 Acute on chronic respiratory failure with hypoxia and hypercapnia J96.21; J96.22 Chronicity: acute on chronic CPT Codes Coding ([id number])
[2023-04-19 15:13] VITALS: PULSE 105; O2SAT 88
== END 2023-04-19 14:47 | disposition home or self-care (01) ==
PROVIDERS: PCP Nurse Practitioner Family; Visit Provider Internal Medicine
DX: F17.200 Nicotine dependence, unspecified, uncomplicated (principal); C34.32 Malignant neoplasm of lower lobe, left bronchus or lung; C18.7 Malignant neoplasm of sigmoid colon; J44.1 Chronic obstructive pulmonary disease with (acute) exacerbation; G47.33 Obstructive sleep apnea (adult) (pediatric); J96.21 Acute and chronic respiratory failure with hypoxia; J96.22 Acute and chronic respiratory failure with hypercapnia
CPT/HCPCS: 94618; 99214

== ENCOUNTER 2023-04-20 18:55 | Emergency (ER) | payer MEDICARE, MEDICAID, SELFPAY ==
[2023-04-20 19:06] VITALS: BP 92/48; PULSE 96; RESP 20; TEMP 37.1; O2SAT 92; BMI 32.6
--- NOTE | 2023-04-20 19:08 | ED_ITS ---
HPI - General Adult General Chief complaint: General Medical Stated complaint: treatment for chemo came out Time Seen by Provider: 04/21/23 00:17 Source: patient Mode of arrival: ambulatory Limitations: no limitations History of Present Illness HPI narrative: 57-year-old female with multiple medical problems currently being treated by Dr. 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 Patient was seen on 04/19/[address] Ahumada in the office for scheduled chemotherapy. The patient states that she gets his chemotherapy in the office and then gets an infusion for 2 days. The patient states that this evening, prior to coming to emergency department she started to bleed from the Port-A-Cath site and came to the emergency department for evaluation. She denied being ill in any other way. She denied fever, chills, nausea, vomiting, chest pain, shortness of breath, abdominal pain. Related Data Home Medications Medication Instructions Recorded Confirmed blood pressure monitor #1 ea 10/22/20 04/19/23 blood pressure test kit-large #1 ea 10/22/20 04/19/23 docusate sodium 100 mg capsule 100 mg PO BID PRN constipation 09/21/21 04/19/23 Previous Rx's Medication Instructions Recorded peg 3350-electrolytes 236 240 ml PO Q10M colonoscopy #4,000 06/08/22 gram-22.74 gram-6.74 gram-5.86 mL gram solution (Golytely) magnesium oxide 400 mg (241.3 mg 400 mg PO BEDTIME 30 days #30 tabs 06/28/22 magnesium) tablet umeclidinium 62.5 mcg/actuation 1 inh inhalation DAILY #30 ea 07/08/22 blister powder for inhalation (Incruse Ellipta) dexamethasone 4 mg tablet 4 mg PO BID #60 tabs 09/02/22 loperamide 2 mg capsule (Imodium 2 mg PO Q6H PRN Diarrhea #60 caps 09/02/22 A-D) nystatin 100,000 unit/gram topical 1 appl topical DAILY PRN rash #30 09/18/22 cream grams ubrogepant 100 mg tablet (Ubrelvy) 50 - 100 mg (0.5 - 1 x 100 mg) PO 11/01/22 ONCE PRN migraine headache 30 days #16 tabs alprazolam 0.5 mg tablet (Xanax) 0.5 mg PO ONCE PRN Anxiety #3 tabs 12/19/22 fluticasone furoate 100 1 inh inhalation DAILY #60 ea 12/23/22 mcg-vilanterol 25 mcg/dose inhalation powder (Breo Ellipta) diltiazem HCl 240 mg 240 mg PO DAILY #60 caps 01/22/23 capsule,extended release 24 hr (Cardizem CD) divalproex 500 mg tablet,extended 1,000 mg (2 x 500 mg) PO QPM 90 01/25/23 release 24 hr days #180 tabs divalproex 500 mg tablet,extended 500 mg PO DAILY #90 tabs 02/01/23 release 24 hr ferrous sulfate 325 mg (65 mg 325 mg PO BID #60 tabs 02/21/23 iron) tablet (FeroSul) riboflavin (vitamin B2) 400 mg 400 mg PO DAILY 30 days #30 tabs 02/22/23 tablet metoprolol succinate 50 mg 50 mg PO QAM #90 tabs 03/16/23 tablet,extended release 24 hr olanzapine 5 mg disintegrating 5 mg PO DAILY #30 tabs 03/22/23 tablet amitriptyline 25 mg tablet 25 mg PO BEDTIME #30 tabs 03/29/23 apixaban 5 mg tablet (Eliquis) 5 mg PO BID #60 tabs 03/29/23 atorvastatin 80 mg tablet 80 mg PO BEDTIME #30 tabs 03/29/23 duloxetine 60 mg capsule,delayed 60 mg PO BEDTIME #30 caps 03/29/23 release fenofibrate nanocrystallized 48 mg 48 mg PO DAILY #30 tabs 03/29/23 tablet hydralazine 50 mg tablet 50 mg PO TID #90 tabs 03/29/23 omeprazole 20 mg capsule,delayed 20 mg PO BID #60 caps 03/29/23 release clonazepam 0.5 mg tablet 0.5 mg PO BID PRN anxiety #60 tabs 04/04/23 Magic Mouthwash 10 ml PO QID #240 mL 04/14/23 Diphen/Lido/Antacid 1:1:1 240 mL suspension ondansetron 8 mg disintegrating 8 mg PO Q8H #30 tabs 04/14/23 tablet diphenoxylate-atropine 2.5 1 tab PO BID-QID PRN Diarrhea #60 04/17/23 mg-0.025 mg tablet (Lomotil) tabs albuterol sulfate 90 mcg/actuation 2 puff inhalation Q4-6H PRN 04/20/23 aerosol inhaler shortness of breath or wheezing #8.5 grams Allergies Allergy/AdvReac Type Severity Reaction Status Date / Time Penicillins Allergy Mild Rash Verified 04/20/23 19:13 venlafaxine [From Effexor] Allergy Mild Rash Verified 04/20/23 19:13 cyclobenzaprine Allergy Unknown Unknown Verified 04/20/23 19:13 [Cyclobenzaprine] topiramate [From Topamax] Allergy Unknown Unknown Verified 04/20/23 19:13 levofloxacin [From Levaquin] AdvReac Severe Diarrhea Verified 04/20/23 19:13 Sulfa (Sulfonamide AdvReac Severe Diarrhea Verified 04/20/23 19:13 Antibiotics) fentanyl [FENTANYL] AdvReac Intermediate Hallucinati Verified 04/20/23 19:13 ons Review of Systems 2 Review of Systems: Yes all other systems are reviewed and are negative [facility] Past Medical History Medical History Smoker Chronic back pain Colostomy in place (~2020) Personal history of nicotine dependence Polysubstance (including opioids) dependence, binge pattern Atrial fibrillation with rapid ventricular response Congestive heart failure Restrictive lung disease COPD (chronic obstructive pulmonary disease) No natural teeth COVID-19 vaccine series completed History of COVID-19 (~04/2020) Oxygen dependent Pericardial effusion Other and unspecified hyperlipidemia Essential hypertension Peripheral vascular disease Preoperative cardiovascular examination Bilateral pneumonia Adenocarcinoma of sigmoid colon (~2020) Hypernatremia GI bleed UTI (urinary tract infection) Pleural effusion, left Colon cancer (~2020) IVY (obstructive sleep apnea) Cancer of lower lobe of left lung (~2020) GERD (gastroesophageal reflux disease) Acute and chronic respiratory failure Lung cancer Obesity Hypoventilation associated with obesity Obesity hypoventilation syndrome Respiratory failure with hypoxia and hypercapnia Rotator cuff strain Hypoxia Pneumonia Restless legs syndrome (RLS) Sleep disorder Bipolar disorder (~2009) Back pain with history of spinal surgery Renal failure Fibromyalgia Depression High cholesterol PTSD (post-traumatic stress disorder) CAD (coronary artery disease) HTN (hypertension) Surgical History History of partial colectomy (~12/2020) History of cardiac cath (~2010) History of hysterectomy (~1990) History of cholecystectomy History of appendectomy (~1982) History of colonoscopy (~08/2020) History of lobectomy of lung (~08/2020) History of esophagogastroduodenoscopy (EGD) History of bunionectomy (~1977) History of back surgery Family History Family History Maternal Aunt Breast cancer Stroke COPD (chronic obstructive pulmonary disease) Maternal Aunt Breast cancer COPD (chronic obstructive pulmonary disease) Mother Uterine cancer COPD (chronic obstructive pulmonary disease) HTN (hypertension) Heart disease Maternal Uncle Stroke Paternal Grandmother Heart attack Sister Diabetes IBS (irritable bowel syndrome) Son HTN (hypertension) Daughter HTN (hypertension) Father HTN (hypertension) Brother Heart disease Social History Social History Household Members: Spouse Housing: House Are you a primary infant childcare provider to a significant other at home: No Do you presently have visiting nurse or other home services: Yes Alcohol intake: never Patient Tobacco Use Status: Current everyday Tobacco user Tobacco use type: Cigarette Cigarettes Per Day: 4 Years Smoked: 40 e-Cigarette/Vaping Use: Never Used Second Hand Smoke Exposure: Yes Advance Directives: Yes Advance Directives on File: Yes Advance Directives Date on File: 10/05/22 service: No Current occupational status: unemployed and disabled Cognitive needs: Yes (walker ) Hearing needs: No Vision needs: No Physical Exam ED Vital Signs: Vital Signs - 24 hr 04/20/23 19:06 04/20/23 19:13 04/20/23 21:44 Temperature 98.7 F 97.4 F Pulse Rate 96 89 Respiratory Rate 20 18 Blood Pressure 92/48 L 154/80 H 127/65 Pulse Oximetry 92 92 Oxygen Delivery Method Room Air Room Air Oxygen Flow Rate 04/20/23 22:26 Temperature 98.2 F Pulse Rate 94 Respiratory Rate 18 Blood Pressure 155/69 H Pulse Oximetry 94 Oxygen Delivery Method Nasal Cannula Oxygen Flow Rate 1 BMI result Body Mass Index 32.6 Vital signs revealed elevated blood pressure Exam: General: Awake, alert in no distress Head: Normocephalic, atraumatic Chest: symmetric movement, nontender, by the time I saw the patient, Port-A-Cath needle was changed, appears to be functioning normally, no bleeding around the needle, medication is infusing without difficulty Heart: regular rate and rhythm, normal S1, S2 no murmurs or rubs Abdomen: soft, non-tender, nondistended, normal bowel sounds Psych: Pleasant, cooperative Const Other: Exam General: Awake, alert in no distress Head: Normocephalic, atraumatic EENT: PERRL, Lids normal, sclera normal, conjunctiva normal, nose normal , ears normal, throat without erythema or exudates Neck: Supple, no adenopathy, no trachea midline or C-spine tenderness Lung: breath sounds symmetric, no wheezing, rales or rhonchi Chest: symmetric movement, nontender, no soft tissue swelling, the patient has a new Port-A-Cath placed by the ED nurse, there is no leakage around the needle, no bleeding noted Heart: regular rate and rhythm, normal S1, S2 no murmurs or rubs Abdomen: soft, non-tender, nondistended, normal bowel sounds Back: no vertebral tenderness, no CVAT Neuro: Awake, alert, oriented, normal speech, cranial nerves intact, moves all extremities symmetrically Psych: Pleasant, cooperative Course Course Course Narrative: This is an RME: Additional HPI, ROS, PE not included below will be deferred to primary provider. 57 year old female presents w/ issues with chemo med and port states it fell off . Plan- hematology will need to be consulted Medications Administered Discontinued Medications Generic Name Dose Route Start Last Admin Trade Name Freq PRN Reason Stop Dose Admin Acetaminophen 650 mg 04/20/23 23:22 04/20/23 23:32 Acetaminophen 325 Mg Tablet PO 04/20/23 23:23 650 mg ONCE ONE Administration Medical Decision Making Medical Decision Making MDM Narrative: 57-year-old female with multiple medical problems who is currently being treated by Dr. Ahumada for metastatic adenocarcinoma to small-bowel involving serum muscular layer consistent with spread from known colonic primary diagnosed on 07/15/2022. Patient was seen by her oncologist 2 days prior for chemotherapy and has a continuous infusion through her Port-A-Cath. The Port-A-Cath needle was leaking blood around it this evening and the needle was changed by the severe ED nursing staff. The new needle was easily flushed level alley chemotherapy medication is flowing through the needle without any difficulty. Patient's laboratory evaluation was unremarkable and consistent with her baseline. Patient was discharged home Differential Diagnosis Differential Diagnoses: The differential diagnosis associated with the presentation includes Differential diagnosis includes was not limited to Port-A-Cath dislodgement, malfunction of the Port-A-Cath. Admission/Observation Consideration of admission/observation: Escalation of care including admission/observation considered Lab Data MDM Lab Attestation statement: I reviewed the patient's lab results. My interpretation patient's laboratory evaluation is as follows: CBC was normal. BUN was elevated at 24 with normal creatinine. Glucose elevated 164. 04/20/23 20:28 04/20/23 20:28 Labs: Lab Results 04/20/23 Range/Units 20:28 WBC 4.8 (4.8-10.8) X10*3/uL RBC 3.81 L (4.20-5.50) X10*6/uL Hgb 11.6 L (12.0-16.0) g/dl Hct 37.2 (37.0-47.0) % MCV 97.6 (80.0-98.0) fL MCH 30.4 (27.0-33.0) pg MCHC 31.2 (31.0-35.0) g/dl RDW 16.1 H (11.0-16.0) % Plt Count 315 (160-400) X10*3/uL MPV 8.9 L (9.4-12.3) fL Immature Gran % (Auto) 0.4 (0.0-0.4) % Neut % (Auto) 69.5 (45-73) % Lymph % (Auto) 16.8 L (20-40) % [place] % (Auto) 13.1 H (2-11) % Eos % (Auto) 0.0 (0-4) % Baso % (Auto) 0.2 (0-2) % Lymph # (Auto) 0.8 L (1.2-4.9) X10*3/uL [place] # (Auto) 0.6 (0.1-1.2) X10*3/uL Eos # (Auto) 0.0 (0.0-0.4) X10*3/uL Baso # (Auto) 0.0 (0.0-0.2) X10*3/uL Abs Immat Gran (auto) 0.02 (0.00-0.03) X10*3/uL Absolute Neuts (auto) 3.4 (2.0-8.3) x10*3/uL Absolute Nucleated RBC 0.020 H (0.0-0.012) X10*3/uL Nucleated RBC % (auto) 0.4 H (0.0-0.2) /100WBC PT 10.0 L (11.1-13.3) SEC INR 0.8 L (0.9-1.1) Sodium 140 (135-145) mmol/L Potassium 3.9 (3.3-5.1) mmol/L Chloride 98 (96-108) mmol/L Carbon Dioxide 31 H (22-29) mmol/L Anion Gap 15 (12-20) BUN 24 H (9-16) mg/dL Creatinine 0.95 (0.5-1.4) mg/dL Estim Creat Clear Calc 67.7 Estimated GFR > 60 Random Glucose 164 H (60-115) mg/dL Calcium 8.5 (8.4-10.2) mg/dL Total Bilirubin 0.3 (0.0-1.0) mg/dL AST 17 (5-31) U/L ALT 6 (0-31) U/L Alkaline Phosphatase 63 (39-117) U/L Total Protein 6.1 L (6.5-8.0) g/dL Albumin 3.4 L (3.5-5.0) g/dL Chronic Conditions Patient?s care impacted by: Other (Cardiovascular disease, metastatic colon cancer, COPD) Discharge Plan Discharge Clinical Impression: Encounter for care related to Port-a-Cath Patient Disposition: Home, Self-Care Additional Instructions: The ER nurse change your Port-A-Cath needle and now it appears to be working normally Continue with your chemotherapy and follow-up with the oncology office as scheduled. Follow-up with your doctor in 2 days. Please return to the emergency department if your symptoms get worse or if you develop any symptoms that are concerning to you. Prescriptions: No Action Incruse Ellipta 62.5 mcg/actuation blister with device 1 inh inhalation DAILY Qty: 30 11RF nystatin 100,000 unit/gram cream 1 appl topical DAILY PRN (Reason: rash) Qty: 30 0RF Ubrelvy 100 mg tablet 50 - 100 mg PO ONCE PRN (Reason: migraine headache) 30 Days Qty: 16 3RF Rx Instructions: take at onset of migraine, may repeat in 2hrs (may take w/ Ibuprofen) Breo Ellipta 100-25 mcg/dose blister with device 1 inh INHALATION DAILY Qty: 60 3RF diltiazem HCl [Cardizem CD] 240 mg capsule,extended release 24hr 240 mg PO DAILY Qty: 60 1RF divalproex 500 mg tablet extended release 24 hr 1,000 mg PO QPM 90 Days Qty: 180 2RF divalproex 500 mg tablet extended release 24 hr 500 mg PO DAILY Qty: 90 1RF ferrous sulfate [FeroSul] 325 mg (65 mg iron) tablet 325 mg PO BID Qty: 60 2RF riboflavin (vitamin B2) 400 mg tablet 400 mg PO DAILY 30 Days Qty: 30 6RF metoprolol succinate 50 mg tablet extended release 24 hr 50 mg PO QAM Qty: 90 1RF amitriptyline 25 mg tablet 25 mg PO BEDTIME Qty: 30 1RF atorvastatin 80 mg tablet 80 mg PO BEDTIME Qty: 30 1RF hydralazine 50 mg tablet 50 mg PO TID Qty: 90 1RF fenofibrate nanocrystallized 48 mg tablet 48 mg PO DAILY Qty: 30 2RF omeprazole 20 mg capsule,delayed release(DR/EC) 20 mg PO BID Qty: 60 2RF duloxetine 60 mg capsule,delayed release(DR/EC) 60 mg PO BEDTIME Qty: 30 1RF Eliquis 5 mg tablet 5 mg PO BID Qty: 60 1RF clonazepam 0.5 mg tablet 0.5 mg PO BID PRN (Reason: anxiety) Qty: 60 0RF albuterol sulfate 90 mcg/actuation HFA aerosol inhaler 2 puff inhalation Q4-6H PRN (Reason: shortness of breath or wheezing) Qty: 8.5 0RF Rx Instructions: USES NEEDED, SELDOMLY dexamethasone 4 mg Tablet 4 mg PO BID Qty: 60 3RF Rx Instructions: Take 4 mg p.o. b.i.d. for 2 days starting day after chemo, Q 2 weekly. loperamide [Imodium A-D] 2 mg Capsule 2 mg PO Q6H PRN (Reason: Diarrhea) Qty: 60 3RF alprazolam [Xanax] 0.5 mg Tablet 0.5 mg PO ONCE PRN (Reason: Anxiety) Qty: 3 0RF olanzapine 5 mg Tablet,Disintegrating 5 mg PO DAILY Qty: 30 0RF ondansetron 8 mg Tablet,Disintegrating 8 mg PO Q8H Qty: 30 4RF Magic Mouthwash Diphen/Lido/Antacid 1:1:1 240 mL Suspension 10 ml PO QID Qty: 240 3RF Rx Instructions: Lidocaine Viscous 2 % 80mL; diphenhydramine 12.5 mg/5 mL 80mL; aluminum-mag hydrox-simeth [id number]/5mL 80mL diphenoxylate-atropine [Lomotil] 2.5-0.025 mg Tablet 1 tab PO BID-QID PRN (Reason: Diarrhea) Qty: 60 3RF (DME) blood pressure test kit-large Kit See Rx Instructions .ROUTE DIRECTED Qty: 1 Rx Instructions: As directed (DME) blood pressure monitor Kit See Rx Instructions .ROUTE .MEDSUPPLY Qty: 1 Rx Instructions: As directed magnesium oxide 400 mg (241.3 mg magnesium) tablet 400 mg PO BEDTIME 30 Days Qty: 30 6RF Rx Instructions: may hold for loose stools peg 3350-electrolytes [Golytely] 236-22.74-6.74 -5.86 gram recon soln 240 ml PO Q10M Qty: 4000 0RF Rx Instructions: as per split prep instructions, until fecal effluent is clear docusate sodium 100 mg capsule 100 mg PO BID PRN (Reason: constipation)
[2023-04-20 19:13] VITALS: BP 154/80
--- NOTE | 2023-04-20 19:14 | PC.NURSE ---
per pt R arm blood pressure readings are inaccurate. blood rpessure repeated on L arm.
[2023-04-20 20:35] LABS: MANUAL DIFF FLAG NO
[2023-04-20 20:37] LABS: Basophils Percent Auto 0.2 % (0-2); Hematocrit 37.2 % (37.0-47.0); Hemoglobin 11.6 g/dl (12.0-16.0); Imm Gran Abs Auto 0.02 X10*3/uL (0.00-0.03); Imm Gran Pct Auto 0.4 % (0.0-0.4); Lymphocytes Absolute Auto 0.8 X10*3/uL (1.2-4.9); Lymphocytes Percent Auto 16.8 % (20-40); Mean Corpuscular HGB Conc 31.2 g/dl (31.0-35.0); Mean Corpuscular Hemoglobin 30.4 pg (27.0-33.0); Mean Corpuscular Volume 97.6 fL (80.0-98.0); Mean Platelet Volume 8.9 fL (9.4-12.3); Monocytes Absolute Auto 0.6 X10*3/uL (0.1-1.2); Monocytes Percent Auto 13.1 % (2-11); NRBC Pct Auto 0.4 /100WBC (0.0-0.2); Neutrophils Absolute Auto 3.4 x10*3/uL (2.0-8.3); Neutrophils Percent Auto 69.5 % (45-73); Platelet Count 315 X10*3/uL (160-400); Red Blood Count 3.81 X10*6/uL (4.20-5.50); Red Cell Distribution Width 16.1 % (11.0-16.0); White Blood Count 4.8 X10*3/uL (4.8-10.8)
[2023-04-20 20:43] LABS: INTERNATIONAL NORM RATIO 0.8 (0.9-1.1)
[2023-04-20 20:49] LABS: Alanine Aminotransferase 6 U/L (0-31); Albumin Level 3.4 g/dL (3.5-5.0); Alkaline Phosphatase 63 U/L (39-117); Anion Gap 15 (12-20); Aspartate Amino Transferase 17 U/L (5-31); Bilirubin Total 0.3 mg/dL (0.0-1.0); Blood Urea Nitrogen 24 mg/dL (9-16); Calcium 8.5 mg/dL (8.4-10.2); Carbon Dioxide 31 mmol/L (22-29); Chloride 98 mmol/L (96-108); Creatinine Clr Calc Pharmacy 67.7; Estimated Glomerular Filt Rate > 60; Glucose Random 164 mg/dL (60-115); Potassium 3.9 mmol/L (3.3-5.1); Sodium 140 mmol/L (135-145); Total Protein 6.1 g/dL (6.5-8.0)
[2023-04-20 21:44] VITALS: BP 127/65; PULSE 89; RESP 18; TEMP 36.3; O2SAT 92
--- NOTE | 2023-04-20 21:47 | PC.NURSE ---
pt O2 90-92% on RA, pt states that she was supposed to get a tank of O2 delivered to her house to start O2 @ home but it didn't arrive, O2 @ 98% on 2L.
[2023-04-20 22:26] VITALS: BP 155/69; PULSE 94; RESP 18; TEMP 36.8; O2SAT 94
--- NOTE | 2023-04-20 23:13 | PC.NURSE ---
Attempted to flush patient port and was unable to do so. Port needle changed, positive blood return and flushes freely.
[2023-04-20] MEDS: Acetaminophen 325 MG TABLET 650 MG PO (23:32)
[2023-04-21 01:17] VITALS: BP 159/73; PULSE 89; RESP 18; O2SAT 93
== END 2023-04-21 01:17 | disposition home or self-care (01) ==
PROVIDERS: Physician Assistant; Emergency Provider Emergency Medicine Emergency Medical Services; PCP Nurse Practitioner Family
DX: Z45.2 Encounter for adjustment and management of vascular access device (principal); Z79.899 Other long term (current) drug therapy
CPT/HCPCS: 36415; 80053; 85025; 85610; 99283; 99284

== ENCOUNTER 2023-05-02 13:22 | Outpatient (AMB) | payer MEDICARE, MEDICAID, SELFPAY ==
--- NOTE | 2023-05-02 13:44 | MHC.OFFVIS ---
Intake Vital Signs 05/02/23 13:45 Height 5 ft 4 in Weight 203 lb 14.841 oz BMI 35.0 BP 120/62 Blood Pressure Location Lt brachial Position Sitting Pulse 86 Pulse Source Pulse Oximeter Pulse Oximetry (%) 98 Oxygen Delivery Method Nasal Cannula Oxygen Flow Rate 3 Intake Visit Reasons: COPD Intake Note: pt is here for follow up and states she is using the oxygen 24 hours a day, 2 liters at night and with some exertion she using 3 liters. 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 Allergies Penicillins Allergy (Mild, Verified 05/02/23 14:05) Rash venlafaxine [From Effexor] Allergy (Mild, Verified 05/02/23 14:05) Rash cyclobenzaprine [Cyclobenzaprine] Allergy (Unknown, Verified 05/02/23 14:05) Unknown topiramate [From Topamax] Allergy (Unknown, Verified 05/02/23 14:05) Unknown levofloxacin [From Levaquin] Adverse Reaction (Severe, Verified 05/02/23 14:05) Diarrhea Sulfa (Sulfonamide Antibiotics) Adverse Reaction (Severe, Verified 05/02/23 14:05) Diarrhea fentanyl [FENTANYL] Adverse Reaction (Intermediate, Verified 05/02/23 14:05) Hallucinations Medication List - Last Reconciled 05/02/23 by Eduardo Cowan MD albuterol sulfate 90 mcg/actuation 2 puffs inhalation Q4-6H PRN amitriptyline 25 mg PO BEDTIME apixaban (Eliquis) 5 mg PO BID atorvastatin 80 mg PO BEDTIME blood pressure monitor As directed blood pressure test kit-large As directed clonazepam 0.5 mg PO BID PRN dexamethasone 4 mg PO BID diltiazem HCl (Cardizem CD) 240 mg PO DAILY diphenoxylate-atropine 2.5-0.025 mg (Lomotil) 1 tab PO BID-QID PRN divalproex ER 500 mg PO DAILY divalproex ER 1,000 mg (2 x 500 mg) PO QPM 90 days docusate sodium 100 mg PO BID PRN duloxetine 60 mg PO BEDTIME fenofibrate nanocrystallized 48 mg PO DAILY ferrous sulfate (FeroSul) 325 mg PO BID fluticasone furoate-vilanterol 100-25 mcg/dose (Breo Ellipta) 1 inh inhalation DAILY hydralazine 50 mg PO TID loperamide (Imodium A-D) 2 mg PO Q6H PRN Magic Mouthwash Diphen/Lido/Antacid 1:1:1 10 mL PO QID metoprolol succinate ER 50 mg PO QAM nystatin 1 appl topical DAILY PRN olanzapine 5 mg PO DAILY omeprazole 20 mg PO BID ondansetron 8 mg PO Q8H peg 3350-electrolytes 236-22.74-6.74 -5.86 gram (Golytely) 240 mL PO Q10M riboflavin (vitamin B2) 400 mg PO DAILY 30 days ubrogepant (Ubrelvy) 50 - 100 mg (0.5 - 1 x 100 mg) PO ONCE PRN 30 days umeclidinium 62.5 mcg/actuation (Incruse Ellipta) 1 inh inhalation DAILY Do you need a note to return to daycare/school/sports/work: No HPI COPD HPI Details SEVERO IS 57 YEARS OLD FEMALE WITH GROSS OBESITY, DIAGNOSIS OF IVY BUT RETURN THE CPAP DEVICE, SHE COULD NOT USE IT. SHE HAS CHRONIC OBSTRUCTIVE PULMONARY DISEASE WHICH IS CONTROLLED WITH MEDS. SINCE HER LAST VISIT SHE HAS BEEN STARTED ON O2 THERAPY WHICH SHE IS USING VERY REGULARLY AND FEELS MORE ENERGETIC. AT THIS POINT SHE DENIES ANY COUGH WHEEZING OR SHORTNESS OF BREATH AT REST. [facility] Medical History Smoker Chronic back pain Colostomy in place (~2020) Personal history of nicotine dependence Polysubstance (including opioids) dependence, binge pattern Atrial fibrillation with rapid ventricular response Congestive heart failure Restrictive lung disease COPD (chronic obstructive pulmonary disease) No natural teeth COVID-19 vaccine series completed History of COVID-19 (~04/2020) Oxygen dependent Pericardial effusion Other and unspecified hyperlipidemia Essential hypertension Peripheral vascular disease Preoperative cardiovascular examination Bilateral pneumonia Adenocarcinoma of sigmoid colon (~2020) Hypernatremia GI bleed UTI (urinary tract infection) Pleural effusion, left Colon cancer (~2020) IVY (obstructive sleep apnea) Cancer of lower lobe of left lung (~2020) GERD (gastroesophageal reflux disease) Acute and chronic respiratory failure Lung cancer Obesity Hypoventilation associated with obesity Obesity hypoventilation syndrome Respiratory failure with hypoxia and hypercapnia Rotator cuff strain Hypoxia Pneumonia Restless legs syndrome (RLS) Sleep disorder Bipolar disorder (~2009) Back pain with history of spinal surgery Renal failure Fibromyalgia Depression High cholesterol PTSD (post-traumatic stress disorder) CAD (coronary artery disease) HTN (hypertension) Surgical History History of partial colectomy (~12/2020) History of cardiac cath (~2010) History of hysterectomy (~1990) History of cholecystectomy History of appendectomy (~1982) History of colonoscopy (~08/2020) History of lobectomy of lung (~08/2020) History of esophagogastroduodenoscopy (EGD) History of bunionectomy (~1977) History of back surgery Family History Maternal Aunt Breast cancer Stroke COPD (chronic obstructive pulmonary disease) Maternal Aunt Breast cancer COPD (chronic obstructive pulmonary disease) Mother Uterine cancer COPD (chronic obstructive pulmonary disease) HTN (hypertension) Heart disease Maternal Uncle Stroke Paternal Grandmother Heart attack Sister Diabetes IBS (irritable bowel syndrome) Son HTN (hypertension) Daughter HTN (hypertension) Father HTN (hypertension) Brother Heart disease Social History Household Members: Spouse Housing: House Are you a primary direct care counselor to a significant other at home: No Do you presently have visiting nurse or other home services: Yes Alcohol intake: never Comment: pt sleeping Patient Tobacco Use Status: Current everyday Tobacco user Tobacco use type: Cigarette Cigarettes Per Day: 4 Years Smoked: 40 e-Cigarette/Vaping Use: Never Used Second Hand Smoke Exposure: Yes Advance Directives Date on File: 10/05/22 service: No Current occupational status: unemployed and disabled Cognitive needs: Yes (walker ) Hearing needs: No Vision needs: No Review of Systems Const All systems reviewed & are unremarkable except as noted in HPI and below ENT Denies nasal congestion and Denies nasal discharge Card Denies chest pain, Denies leg edema and Reports dyspnea on exertion (MODERATE ) Resp Reports cough (MILD , OCCASIONAL ), Denies hemoptysis, Reports dyspnea on exertion (MODERATE ) and Denies wheezing GI Reports no additional complaints Musc Reports abnormal gait (IMPAIRED GAIT , SEC TO MUSCULAR WEAKNESS ) and Reports back pain (MILD ) Neuro Reports abnormal gait (IMPAIRED GAIT , SEC TO MUSCULAR WEAKNESS ) Psych Reports no additional complaints Endo Reports no additional complaints Aller/Immun Denies wheezing Physical Exam Vital Signs: Last Vital Signs Pulse 86 05/02/23 13:45 BP 120/62 05/02/23 13:45 Pulse Ox 98 05/02/23 13:45 Oxygen Delivery Method Nasal Cannula 05/02/23 13:45 Oxygen Flow Rate 3 05/02/23 13:45 BMI result Body Mass Index 35.0 Const General: comfortable, no acute distress, alert and awake Orientation/consciousness: patient oriented x3 HEENT Head: Yes normal to inspection General nose exam: No nasal polyps present and No nasal discharge present Face and sinus: Yes sinuses nontender Mouth: oropharynx normal Throat: Yes posterior oropharynx normal Eyes General: appearance normal, both eyes and all related structures Neck Neck: Yes normal visual inspection, Yes no lymphadenopathy, Yes trachea midline and Yes no JVD Thyroid: Thyroid normal Chest Chest palpation & inspection: normal inspection of the chest, normal palpation of entire chest wall and no tenderness Resp Other: PERCUSSION NOTE RESONANT, BREATH SOUNDS ARE SLIGHTLY DISTANT ESPECIALLY OVER THE BASILAR AREAS. NO WHEEZES OR RHONCHI ARE HEARD. Cardio Palpation: normal PMI Rate: regular rate Rhythm: regular rhythm Heart sounds: no gallops and no murmurs GI Palpation (GI): Soft to palpation, nontender, No hepatosplenomegaly present, no masses and Other GI palpation findings present (COLOSTOMY IN THE LEFT UPPER QUADRANT AND ALSO extensive surgical scar) Auscultation: normal bowel sounds Back/Spine/Pelvis Thoracic/Lumbar Spine: thoracic and lumbar spine normal to inspection and thoraco-lumbar ROM limited Skin General skin exam: no rashes or lesions noted Neuro General: patient oriented x3, No gait normal (GAIT IS IMPAIRED AND SHE HAS TO USE WALKER) and no focal motor deficits Cranial nerves: Yes CN's II-XII intact bilaterally Extrem General: Yes normal to inspection, Yes no clubbing, cyanosis or edema and Yes no calf tenderness Psych Appearance: grossly normal and well kempt Speech and movement: Normal speech and movement present Assessment & Plan Assessment & Plan (1) Personal history of nicotine dependence: Comment: (onset 14, 3/4ppd x 41yrs, 30pyh, quit 2020) STILL SMOKING ABOUT 3 CIGARETTES A DAY. She knows that she should quit completely and is trying her best, Code(s): Z87.891 - Personal history of nicotine dependence (2) COPD (chronic obstructive pulmonary disease): Comment: CLINICALLY THE PATIENT DOES HAVE CHRONIC OBSTRUCTIVE PULMONARY DISEASE, SEEMS TO BE QUITE STABLE AT THIS TIME WITH THE CURRENT REGIMEN. TX : CONTINUE TO USE: BREO ELLIPTA 100-50 1 INHALATION DAILY INCRUSE ELLIPTA 1 INHALATION DAILY ALBUTEROL HFA 2 PUFFS Q 4-6 HOURS P.R.N. Code(s): J44.9 - Chronic obstructive pulmonary disease, unspecified Qualifiers: COPD type: COPD with acute exacerbation Qualified Code(s): J44.1 - Chronic obstructive pulmonary disease with (acute) exacerbation (3) IVY (obstructive sleep apnea): Comment: PATIENT DOES HAVE HISTORY OF OBSTRUCTIVE SLEEP APNEA, SHE WAS NEVER KEEN TO USE THE CPAP/BIPAP AND REMAINED NON COMPLIANT, SO SHE RETURNED HER CPAP DEVICE TO [facility] [place] BECAUSE OF SIGNIFICANT WEIGHT LOSS AFTER COLON RESECTION. CLINICALLY HER IVY SEEMS TO HAVE RESOLVED. Code(s): G47.33 - Obstructive sleep apnea (adult) (pediatric) (4) Respiratory failure with hypoxia and hypercapnia: Comment: ,, The patient has. Had hypoxemia and was on oxygen therapy. However she had stopped using the oxygen on her own and returned the equipment. Since her last visit on 04/19, when she was sent to our office [facility] because of hypoxemia, she has been started on portable unit with 3 L/minute. Now she is using O2 24 hours a day, 2 L/minute when resting or sleeping and 3 L/minute when outdoors. Feels good. Code(s): J96.91 - Respiratory failure, unspecified with hypoxia; J96.92 - Respiratory failure, unspecified with hypercapnia Qualifiers: Chronicity: acute on chronic Qualified Code(s): J96.21 - Acute and chronic respiratory failure with hypoxia; J96.22 - Acute and chronic respiratory failure with hypercapnia Coding Level of Care Code Est Pt Level 3 (44081) Diagnoses Personal history of nicotine dependence Z87.891 Chronic obstructive pulmonary disease with acute exacerbation J44.1 COPD type: COPD with acute exacerbation IVY (obstructive sleep apnea) G47.33 Acute on chronic respiratory failure with hypoxia and hypercapnia J96.21; J96.22 Chronicity: acute on chronic
[2023-05-02 13:45] VITALS: BP 120/62; PULSE 86; O2SAT 98; BMI 35.0
== END 2023-05-02 14:07 | disposition home or self-care (01) ==
PROVIDERS: PCP Nurse Practitioner Family; Visit Provider Internal Medicine
DX: Z87.891 Personal history of nicotine dependence (principal); J44.1 Chronic obstructive pulmonary disease with (acute) exacerbation; G47.33 Obstructive sleep apnea (adult) (pediatric); J96.21 Acute and chronic respiratory failure with hypoxia; J96.22 Acute and chronic respiratory failure with hypercapnia
CPT/HCPCS: 99213

== ENCOUNTER → 2023-05-02 13:22 | Outpatient (BNVA) | payer MEDICARE, MEDICAID, SELFPAY | PROVIDERS: PCP Nurse Practitioner Family; Visit Provider Internal Medicine | DX: M79.7 Fibromyalgia (principal); J96.21 Acute and chronic respiratory failure with hypoxia; J96.22 Acute and chronic respiratory failure with hypercapnia; J44.1 Chronic obstructive pulmonary disease with (acute) exacerbation; G47.33 Obstructive sleep apnea (adult) (pediatric); F17.210 Nicotine dependence, cigarettes, uncomplicated; Z99.81 Dependence on supplemental oxygen | CPT/HCPCS: 99202; 99212 ==

== ENCOUNTER 2023-05-02 14:41 | Outpatient (AMB) | payer MEDICARE, MEDICAID, SELFPAY ==
--- NOTE | 2023-05-02 15:08 | A.OFFVIS_ITS ---
Intake Vital Signs 05/02/23 15:09 Height 5 ft 4 in Weight 205 lb 0.478 oz BMI 35.2 BP 116/64 Blood Pressure Location Rt brachial Position Sitting Pulse 83 Pulse Source Pulse Oximeter Temp 97.0 F Temp Source Skin Pulse Oximetry (%) 88 L Oxygen Delivery Method Room Air Intake Visit Reasons: FM Intake Note: New pt presents today for FM consult. C/o pain everywhere. Pain started approx 10 years ago Follow[address] with Dr Cowan and Dr Ahumada Feeder Tender Required: No Accompanied by: Self / Same As Patient Allergies Penicillins Allergy (Mild, Verified 05/02/23 15:14) Rash venlafaxine [From Effexor] Allergy (Mild, Verified 05/02/23 15:14) Rash cyclobenzaprine [Cyclobenzaprine] Allergy (Unknown, Verified 05/02/23 15:14) Unknown topiramate [From Topamax] Allergy (Unknown, Verified 05/02/23 15:14) Unknown levofloxacin [From Levaquin] Adverse Reaction (Severe, Verified 05/02/23 15:14) Diarrhea Sulfa (Sulfonamide Antibiotics) Adverse Reaction (Severe, Verified 05/02/23 15:14) Diarrhea fentanyl [FENTANYL] Adverse Reaction (Intermediate, Verified 05/02/23 15:14) Hallucinations Medication List - Last Reconciled 05/02/23 by Jordan Mejia MD albuterol sulfate 90 mcg/actuation 2 puffs inhalation Q4-6H PRN amitriptyline 25 mg PO BEDTIME apixaban (Eliquis) 5 mg PO BID atorvastatin 80 mg PO BEDTIME blood pressure monitor As directed blood pressure test kit-large As directed clonazepam 0.5 mg PO BID PRN dexamethasone 4 mg PO BID diltiazem HCl (Cardizem CD) 240 mg PO DAILY diphenoxylate-atropine 2.5-0.025 mg (Lomotil) 1 tab PO BID-QID PRN divalproex ER 500 mg PO DAILY divalproex ER 1,000 mg (2 x 500 mg) PO QPM 90 days docusate sodium 100 mg PO BID PRN duloxetine 60 mg PO BEDTIME fenofibrate nanocrystallized 48 mg PO DAILY ferrous sulfate (FeroSul) 325 mg PO BID fluticasone furoate-vilanterol 100-25 mcg/dose (Breo Ellipta) 1 inh inhalation DAILY hydralazine 50 mg PO TID loperamide (Imodium A-D) 2 mg PO Q6H PRN Magic Mouthwash Diphen/Lido/Antacid 1:1:1 10 mL PO QID metoprolol succinate ER 50 mg PO QAM nystatin 1 appl topical DAILY PRN olanzapine 5 mg PO DAILY omeprazole 20 mg PO BID ondansetron 8 mg PO Q8H peg 3350-electrolytes 236-22.74-6.74 -5.86 gram (Golytely) 240 mL PO Q10M riboflavin (vitamin B2) 400 mg PO DAILY 30 days ubrogepant (Ubrelvy) 50 - 100 mg (0.5 - 1 x 100 mg) PO ONCE PRN 30 days umeclidinium 62.5 mcg/actuation (Incruse Ellipta) 1 inh inhalation DAILY HPI HPI Comments History of Present Illness Details This is a 57-year-old female who presents for evaluation of fib romyalgia. She states that she was diagnosed with fibromyalgia more than 10 years ago. Stated that she used to follow-up with a watch repair person many years ago and was on different medicines but she does not remember their names. Recently patient was diagnosed with metastatic colon cancer , she is s/p resection and has a colostomy. She states that she is now receiving chemotherapy and will be referred to see another specialist in [place]. She states that she has diffuse pain. She states that she feels that her entire body is bruised. [facility] Medical History Smoker Chronic back pain Colostomy in place (~2020) Personal history of nicotine dependence Polysubstance (including opioids) dependence, binge pattern Atrial fibrillation with rapid ventricular response Congestive heart failure Restrictive lung disease COPD (chronic obstructive pulmonary disease) No natural teeth COVID-19 vaccine series completed History of COVID-19 (~04/2020) Oxygen dependent Pericardial effusion Other and unspecified hyperlipidemia Essential hypertension Peripheral vascular disease Preoperative cardiovascular examination Bilateral pneumonia Adenocarcinoma of sigmoid colon (~2020) Hypernatremia GI bleed UTI (urinary tract infection) Pleural effusion, left Colon cancer (~2020) IVY (obstructive sleep apnea) Cancer of lower lobe of left lung (~2020) GERD (gastroesophageal reflux disease) Acute and chronic respiratory failure Lung cancer Obesity Hypoventilation associated with obesity Obesity hypoventilation syndrome Respiratory failure with hypoxia and hypercapnia Rotator cuff strain Hypoxia Pneumonia Restless legs syndrome (RLS) Sleep disorder Bipolar disorder (~2009) Back pain with history of spinal surgery Renal failure Fibromyalgia Depression High cholesterol PTSD (post-traumatic stress disorder) CAD (coronary artery disease) HTN (hypertension) Surgical History History of partial colectomy (~12/2020) History of cardiac cath (~2010) History of hysterectomy (~1990) History of cholecystectomy History of appendectomy (~1982) History of colonoscopy (~08/2020) History of lobectomy of lung (~08/2020) History of esophagogastroduodenoscopy (EGD) History of bunionectomy (~1977) History of back surgery Family History Maternal Aunt Breast cancer Stroke COPD (chronic obstructive pulmonary disease) Maternal Aunt Breast cancer COPD (chronic obstructive pulmonary disease) Mother Uterine cancer COPD (chronic obstructive pulmonary disease) HTN (hypertension) Heart disease Maternal Uncle Stroke Paternal Grandmother Heart attack Sister Diabetes IBS (irritable bowel syndrome) Son HTN (hypertension) Daughter HTN (hypertension) Father HTN (hypertension) Brother Heart disease Social History Household Members: Spouse Housing: House Are you a primary pet caregiver to a significant other at home: No Do you presently have visiting nurse or other home services: Yes Alcohol intake: never Comment: pt sleeping Patient Tobacco Use Status: Current everyday Tobacco user Tobacco use type: Cigarette Cigarettes Per Day: 4 Years Smoked: 40 e-Cigarette/Vaping Use: Never Used Second Hand Smoke Exposure: Yes Advance Directives Date on File: 10/05/22 service: No Current occupational status: unemployed and disabled Cognitive needs: Yes (walker ) Hearing needs: No Vision needs: No Review of Systems Const Reports fatigue, Reports headache(s) and Reports weakness Eyes Reports blurry vision and Reports eye pain ENT Reports headache(s) Card Reports dyspnea Resp Reports dyspnea GI Reports constipation, Reports heartburn and Reports nausea Musc Reports back pain, Reports arthralgias and Reports stiffness Skin/Breast Reports alopecia Neuro Reports headache(s) and Reports weakness Psych Reports anxiety Endo Reports fatigue Physical Exam Vital Signs: Last Vital Signs Temp 97.0 F 05/02/23 15:09 Pulse 83 05/02/23 15:09 BP 116/64 05/02/23 15:09 Pulse Ox 88 L 05/02/23 15:09 Oxygen Delivery Method Room Air 05/02/23 15:09 BMI result Body Mass Index 35.2 Const General: cooperative, healthy appearing and comfortable Nutritional Appearance: obese Orientation/consciousness: patient oriented x3 Limitations: ambulation with cane HEENT Other: masked Head: Yes normocephalic and Yes atraumatic Resp Effort & Inspection: normal respiratory effort and able to speak in complete sentences Neuro General: patient oriented x3 Extrem Other: Few Heberden's nodes both hands but no active synovitis Normal nailfold capillaroscopy Multiple fibromyalgia tender points Assessment & Plan Assessment & Plan (1) Fibromyalgia: Code(s): M79.7 - Fibromyalgia Plan: This is a 57-year-old female who presents for evaluation of fibromyalgia. I do not see any evidence of an autoimmune rheumatic disease upon my evaluation. Discussed management of fibromyalgia with patient. Is a noninflammatory, non- autoimmune central afferent processing disorder leading to a diffuse pain syndrome. I suggested that patient try to address her underlying psychiatric issues, anxiety/depression. I suggested evaluation by a therapist and/or a psychiatrist. Patient had history of IVY but it resolved after she lost weight. Try to follow sleep hygiene practices. Discuss CBT for sleep with psychotherapist. I suggested that patient try light exercises at home and walking. Patient is already on Cymbalta. Follow-up with PCP Plan I spent 30 minutes reviewing patient's chart, evaluating patient, counseling patient and documenting in the chart Coding Level of Care Code New Pt Level 3 (75280) Diagnoses Fibromyalgia M79.7
[2023-05-02 15:09] VITALS: BP 116/64; PULSE 83; TEMP 36.1; O2SAT 88; BMI 35.2
== END 2023-05-02 15:48 | disposition home or self-care (01) ==
PROVIDERS: PCP Nurse Practitioner Family; Visit Provider Student in an Organized Health Care Education/Training Program
DX: M79.7 Fibromyalgia (principal)
CPT/HCPCS: 99203

== ENCOUNTER 2023-05-17 07:56 | Outpatient (REF) | payer MEDICARE, MEDICAID, SELFPAY | END 2023-05-17 07:57 | disposition home or self-care (01) | LOC: HO.LAB 07:56 | PROVIDERS: Visit Provider Nurse Practitioner Family | DX: Z13.89 Encounter for screening for other disorder (principal) ==

== ENCOUNTER 2023-06-09 13:39 | Outpatient (AMB) | payer MEDICARE, MEDICAID, SELFPAY ==
--- NOTE | 2023-06-09 14:38 | MHC.OFFWIV ---
Intake Vital Signs 06/09/23 14:41 Height 5 ft 4 in Weight 205 lb BMI 35.2 BP 110/58 L Blood Pressure Location Lt brachial Position Sitting Pulse 75 Pulse Source Pulse Oximeter Temp 98.2 F Temp Source Oral Pulse Oximetry (%) 91 L Oxygen Delivery Method Room Air Intake Visit Reasons: EP, sore throat, earache ([phone]) Intake Note: Pt is here for a sore throat for 2 weeks she is on her last day of a z-beau and pt has ear pain in her right ear longer then she has had the sore throat Patient Tobacco Use Status: Current everyday Tobacco user Allergies Penicillins Allergy (Mild, Verified 06/09/23 14:50) Rash venlafaxine [From Effexor] Allergy (Mild, Verified 06/09/23 14:50) Rash cyclobenzaprine [Cyclobenzaprine] Allergy (Unknown, Verified 06/09/23 14:50) Unknown topiramate [From Topamax] Allergy (Unknown, Verified 06/09/23 14:50) Unknown levofloxacin [From Levaquin] Adverse Reaction (Severe, Verified 06/09/23 14:50) Diarrhea Sulfa (Sulfonamide Antibiotics) Adverse Reaction (Severe, Verified 06/09/23 14:50) Diarrhea fentanyl [FENTANYL] Adverse Reaction (Intermediate, Verified 06/09/23 14:50) Hallucinations Medication List - Last Reconciled 06/09/23 by Emily Ordonez, SADE albuterol sulfate 90 mcg/actuation 2 puffs inhalation Q4-6H PRN amitriptyline 25 mg PO BEDTIME apixaban (Eliquis) 5 mg PO BID atorvastatin 80 mg PO BEDTIME azithromycin 250 mg PO DAILY blood pressure monitor As directed blood pressure test kit-large As directed clonazepam 0.5 mg PO BID PRN dexamethasone 4 mg PO BID diltiazem HCl (Cardizem CD) 240 mg PO DAILY diphenoxylate-atropine 2.5-0.025 mg (Lomotil) 1 tab PO BID-QID PRN divalproex ER 500 mg PO DAILY divalproex ER 1,000 mg (2 x 500 mg) PO QPM 90 days docusate sodium 100 mg PO BID PRN duloxetine 60 mg PO BEDTIME fenofibrate nanocrystallized 48 mg PO DAILY ferrous sulfate (FeroSul) 325 mg PO BID fluticasone furoate-vilanterol 100-25 mcg/dose (Breo Ellipta) 1 inh inhalation DAILY hydralazine 50 mg PO TID loperamide (Imodium A-D) 2 mg PO Q6H PRN Magic Mouthwash Diphen/Lido/Antacid 1:1:1 10 mL PO QID metoprolol succinate ER 50 mg PO QAM nystatin 1 appl topical DAILY PRN olanzapine 5 mg PO DAILY omeprazole 20 mg PO BID ondansetron 8 mg PO Q8H peg 3350-electrolytes 236-22.74-6.74 -5.86 gram (Golytely) 240 mL PO Q10M riboflavin (vitamin B2) 400 mg PO DAILY 30 days ubrogepant (Ubrelvy) 50 - 100 mg (0.5 - 1 x 100 mg) PO ONCE PRN 30 days umeclidinium 62.5 mcg/actuation (Incruse Ellipta) 1 inh inhalation DAILY Do you need a note to return to daycare/school/sports/work: No HPI HPI Comments History of Present Illness Details 57 y/o Female presents to [facility] with c/o sore-throat, cough, chest congestion and right earache. She is currently on Zpack, today finishing up last dose. She saw her Oncologist this week who prescribed Abx and advised her to f/u with PCP if symptoms not better. [facility] Medical History Smoker Chronic back pain Colostomy in place (~2020) Personal history of nicotine dependence Polysubstance (including opioids) dependence, binge pattern Atrial fibrillation with rapid ventricular response Congestive heart failure Restrictive lung disease COPD (chronic obstructive pulmonary disease) No natural teeth COVID-19 vaccine series completed History of COVID-19 (~04/2020) Oxygen dependent Pericardial effusion Other and unspecified hyperlipidemia Essential hypertension Peripheral vascular disease Preoperative cardiovascular examination Bilateral pneumonia Adenocarcinoma of sigmoid colon (~2020) Hypernatremia GI bleed UTI (urinary tract infection) Pleural effusion, left Colon cancer (~2020) IVY (obstructive sleep apnea) Cancer of lower lobe of left lung (~2020) GERD (gastroesophageal reflux disease) Acute and chronic respiratory failure Lung cancer Obesity Hypoventilation associated with obesity Obesity hypoventilation syndrome Respiratory failure with hypoxia and hypercapnia Rotator cuff strain Hypoxia Pneumonia Restless legs syndrome (RLS) Sleep disorder Bipolar disorder (~2009) Back pain with history of spinal surgery Renal failure Fibromyalgia Depression High cholesterol PTSD (post-traumatic stress disorder) CAD (coronary artery disease) HTN (hypertension) Surgical History History of partial colectomy (~12/2020) History of cardiac cath (~2010) History of hysterectomy (~1990) History of cholecystectomy History of appendectomy (~1982) History of colonoscopy (~08/2020) History of lobectomy of lung (~08/2020) History of esophagogastroduodenoscopy (EGD) History of bunionectomy (~1977) History of back surgery Family History Maternal Aunt Breast cancer Stroke COPD (chronic obstructive pulmonary disease) Maternal Aunt Breast cancer COPD (chronic obstructive pulmonary disease) Mother Uterine cancer COPD (chronic obstructive pulmonary disease) HTN (hypertension) Heart disease Maternal Uncle Stroke Paternal Grandmother Heart attack Sister Diabetes IBS (irritable bowel syndrome) Son HTN (hypertension) Daughter HTN (hypertension) Father HTN (hypertension) Brother Heart disease Social History Household Members: Spouse Housing: House Are you a primary daycare director to a significant other at home: No Do you presently have visiting nurse or other home services: Yes Alcohol intake: never Comment: pt sleeping Patient Tobacco Use Status: Current everyday Tobacco user Tobacco use type: Cigarette Cigarettes Per Day: 4 Years Smoked: 40 e-Cigarette/Vaping Use: Never Used Second Hand Smoke Exposure: Yes Advance Directives Date on File: 10/05/22 service: No Current occupational status: unemployed and disabled Cognitive needs: Yes (walker ) Hearing needs: No Vision needs: No Review of Systems Const All systems reviewed & are unremarkable except as noted in HPI and below Physical Exam Vital Signs: Last Vital Signs Temp 98.2 F 06/09/23 14:41 Pulse 75 06/09/23 14:41 BP 110/58 L 06/09/23 14:41 Pulse Ox 91 L 06/09/23 14:41 Oxygen Delivery Method Room Air 06/09/23 14:41 BMI result Body Mass Index 35.2 Const General: no acute distress HEENT Head: Yes normocephalic Ears: external ears normal and TM's normal bilaterally Mouth: oropharynx normal and moist mucous membranes Throat: Yes uvula midline Resp Effort & Inspection: Actively coughing Auscultation: clear to auscultation bilaterally Cardio Rate: regular rate Rhythm: regular rhythm Assessment & Plan Assessment & Plan (1) Ear pain, right: Code(s): H92.01 - Otalgia, right ear Plan: - OTC acetaminophen for pain _ Advised to complete dose - Monitor high fevers, N/V/D, chest pain and SOB. - Will continue to monitor. (2) Acute pharyngitis: Code(s): J02.9 - Acute pharyngitis, unspecified Qualifiers: Pharyngitis/tonsillitis etiology: unspecified etiology Qualified Code(s): J02.9 - Acute pharyngitis, unspecified Plan: - OTC acetaminophen for pain _ Advised to complete dose - Monitor high fevers, N/V/D, chest pain and SOB. - Will continue to monitor. Plan - OTC acetaminophen for pain _ Advised to complete dose - Monitor high fevers, N/V/D, chest pain and SOB. - Will continue to monitor. Coding Level of Care Code Est Pt Level 2 (49649) Diagnoses Ear pain, right H92.01 Acute pharyngitis, unspecified etiology J02.9 Pharyngitis/tonsillitis etiology: unspecified etiology Time Spent (min) 10
[2023-06-09 14:41] VITALS: BP 110/58; PULSE 75; TEMP 36.8; O2SAT 91; BMI 35.2
== END 2023-06-09 15:05 | disposition home or self-care (01) ==
PROVIDERS: PCP Nurse Practitioner Family; Visit Provider Nurse Practitioner Family
DX: H92.01 Otalgia, right ear (principal); J02.9 Acute pharyngitis, unspecified
CPT/HCPCS: 99213

== ENCOUNTER 2023-06-27 12:24 | Outpatient (REF) | payer MEDICARE, MEDICAID, SELFPAY ==
--- NOTE | ~2023-06-27 | CT_ITS ---
EXAMINATION: CT ABDOMEN AND PELVIS WITH CONTRAST CLINICAL INFORMATION: Abdominal pain, recurrent colon cancer. COMPARISON: 09/09/2020 CT. MRI report from 01/09/2023. PET/CT from 12/20/2022 TECHNIQUE: Multidetector volumetric images were obtained from the superior aspect of the liver through the pubic symphysis following administration 85 mL of Omnipaque 350 intravenous contrast. Sagittal and coronal reformatted images were obtained on the technologist's workstation. Oral contrast: No This CT examination was performed using dose optimization techniques as appropriate, variously including the following: *Automated exposure control *Adjustment of mA and/or kV according to patient size (this includes techniques or standardized protocols for targeted exams where dose is matched to indication/reason for exam; i.e. extremities or head) *Use of iterative reconstruction technique DLP: 590 mGy-cm FINDINGS: NURSE LICENSED PRACTICAL: Lumbosacral surgical stabilizing hardware. Cholecystectomy clips. Nonspecific bowel pattern. Phleboliths. LUNG BASES: Right medial lower lobe subpleural opacity measures approximately 7 mm, likely atelectasis, nodule not entirely excluded. Left lower lobe atelectasis. Heart size within normal limits. No pericardial effusion. LIVER, GALLBLADDER, AND BILIARY TREE: The liver is normal in size and shape. Global hypoattenuation to the liver parenchyma. No biliary ductal dilatation is present. Too small to characterize hepatic hypodensities, likely cysts. No CT correlate for left hepatic subdiaphragmatic FDG avidity. The gallbladder has been surgically removed. Post cholecystectomy common bile duct measures in the range of 9 mm. PANCREAS: Atrophy, calcifications, ductal beading and cystic lesion in the pancreatic tail consistent with chronic pancreatitis, similar finding seen on 2022 MRI. SPLEEN: Vague subcentimeter hypodensity superior aspect of the spleen, not seen on previous studies. ADRENAL GLANDS: Unremarkable. KIDNEYS AND URETERS: The kidneys are normal in size, shape, and attenuation. No hydronephrosis, hydroureter, or calculi seen. No perinephric stranding. BLADDER: Moderately distended bladder with diffuse wall thickening. GASTROINTESTINAL TRACT: Under distended stomach likely accounting for diffuse wall thickening. Nonobstructive bowel pattern. Unremarkable terminal ileum. Appendix not identified. Midline anastomotic suture line at the level of the umbilicus associated with focally prominent bowel loop but no focal thickening/mass to correspond to FDG activity. Focal narrowing mid transverse colon, coronal images 18 through 20, axial images 51/97, possibly transient. Left lower quadrant ostomy. ABDOMINAL WALL: Left lower quadrant ostomy with parastomal hernia. Diffuse thickening of the umbilicus and periumbilical soft tissues, infraumbilical greater than supraumbilical. LYMPH NODES: No pathologic lymphadenopathy. VASCULAR: Atherosclerotic calcifications nonaneurysmal aorta with near total occlusion distal aorta and iliac arteries. Normal caliber inferior vena cava and unremarkable iliac veins. Patent portal system. PELVIC VISCERA: Uterus not identified. Phleboliths. No significant change 0.2 x 1.2 cm soft tissue density identified at the inferolateral aspect of the urinary bladder from 12/20/2022 PET/CT, at that time having demonstrated decreasing size and lack of FDG avidity in comparison with August PET/CT. OSSEOUS STRUCTURES: Surgical hardware L4-S1. No suspicious osseous lesions. CT/CT abdomen pelvis w IV con IMPRESSION: Interval development of hypodensity superior aspect of the spleen, attention on follow-up studies. Interval development of right lower lobe medial subpleural opacity, likely atelectasis, lesion not entirely excluded. Narrowing transverse colon, likely transient related to peristalsis given no proximal clonic dilatation. Multiple stable postsurgical and other findings. Continued follow-up per oncologic protocol.
[2023-06-27] MEDS: iohexoL 350 MG/ML 100 ML INFUS..BTL IV (13:15)
== END 2023-06-27 12:25 | disposition home or self-care (01) ==
LOC: HO.CT 12:24
PROVIDERS: PCP Nurse Practitioner Family; Visit Provider Internal Medicine
DX: C18.9 Malignant neoplasm of colon, unspecified (principal)
CPT/HCPCS: 74177; Q9967

== ENCOUNTER 2023-08-02 14:05 | Outpatient (REF) | payer MEDICARE, MEDICAID, SELFPAY ==
--- NOTE | ~2023-08-02 | US_ITS ---
EXAMINATION: US SOFT TISSUE HEAD/NECK CLINICAL INFORMATION: Pain in the right side of the neck. COMPARISON: PET/CT fusion skull to thigh 12/20/2022. TECHNIQUE: Linear transducer sparrow-scale and color Doppler examination of the right neck. FINDINGS: A tiny sub-6 mm cyst is noted in the right lobe of the thyroid. A single small lymph node is seen inferior to the right parotid gland measuring 9 x 5 x 4 mm with a normal fatty anita. US/US soft tiss head and/or neck IMPRESSION: No significant abnormality is seen.
== END 2023-08-02 14:06 | disposition home or self-care (01) ==
LOC: HO.US 14:05
PROVIDERS: PCP Nurse Practitioner Family; Visit Provider Internal Medicine Medical Oncology
DX: M54.2 Cervicalgia (principal)
CPT/HCPCS: 76536

== ENCOUNTER 2023-08-03 23:32 | Emergency (ER) | payer MEDICARE, MEDICAID, SELFPAY ==
[2023-08-03 23:54] VITALS: BP 108/52; PULSE 88; RESP 19; TEMP 37.1; O2SAT 96; BMI 33.3
--- NOTE | 2023-08-04 05:39 | ED_ITS ---
HPI - General Adult General Chief complaint: General Medical Stated complaint: leaking chemo Time Seen by Provider: 08/04/23 04:01 Source: patient Mode of arrival: ambulatory History of Present Illness HPI narrative: 58-year-old female who is currently administering her home chemo for stage IV colon CA states that the needle inadvertently came out of the port, she did stop the chemotherapy but needs assistance in reactive assessing the port. Related Data Home Medications Medication Instructions Recorded Confirmed blood pressure monitor #1 ea 10/22/20 06/28/23 blood pressure test kit-large #1 ea 10/22/20 06/28/23 docusate sodium 100 mg capsule 100 mg PO BID PRN constipation 09/21/21 06/28/23 Previous Rx's Medication Instructions Recorded peg 3350-electrolytes 236 240 ml PO Q10M colonoscopy #4,000 06/08/22 gram-22.74 gram-6.74 gram-5.86 mL gram solution (Golytely) umeclidinium 62.5 mcg/actuation 1 inh inhalation DAILY #30 ea 07/08/22 blister powder for inhalation (Incruse Ellipta) dexamethasone 4 mg tablet 4 mg PO BID #60 tabs 09/02/22 nystatin 100,000 unit/gram topical 1 appl topical DAILY PRN rash #30 09/18/22 cream grams divalproex 500 mg tablet,extended 1,000 mg (2 x 500 mg) PO QPM 90 01/25/23 release 24 hr days #180 tabs divalproex 500 mg tablet,extended 500 mg PO DAILY #90 tabs 02/01/23 release 24 hr riboflavin (vitamin B2) 400 mg 400 mg PO DAILY 30 days #30 tabs 02/22/23 tablet metoprolol succinate 50 mg 50 mg PO QAM #90 tabs 03/16/23 tablet,extended release 24 hr olanzapine 5 mg disintegrating 5 mg PO DAILY #30 tabs 03/22/23 tablet diphenoxylate-atropine 2.5 1 tab PO BID-QID PRN Diarrhea #60 04/17/23 mg-0.025 mg tablet (Lomotil) tabs fluticasone furoate 100 1 inh inhalation DAILY #60 ea 04/23/23 mcg-vilanterol 25 mcg/dose inhalation powder (Breo Ellipta) ondansetron 8 mg disintegrating 8 mg PO Q8H #30 tabs 04/24/23 tablet albuterol sulfate 90 mcg/actuation 2 puff inhalation Q4-6H PRN 05/19/23 aerosol inhaler shortness of breath or wheezing #8.5 grams ferrous sulfate 325 mg (65 mg 325 mg PO BID #60 tabs 05/19/23 iron) tablet (FeroSul) diltiazem HCl 240 mg 240 mg PO DAILY #60 caps 05/23/23 capsule,extended release 24 hr (Cardizem CD) azithromycin 250 mg tablet 250 mg PO DAILY #6 tabs 06/06/23 fenofibrate nanocrystallized 48 mg 48 mg PO DAILY #30 tabs 06/13/23 tablet omeprazole 20 mg capsule,delayed 20 mg PO BID #60 caps 06/13/23 release ubrogepant 100 mg tablet (Ubrelvy) 50 - 100 mg (0.5 - 1 x 100 mg) PO 07/05/23 ONCE PRN migraine headache 30 days #16 tabs amitriptyline 25 mg tablet 25 mg PO BEDTIME #30 tabs 07/12/23 apixaban 5 mg tablet (Eliquis) 5 mg PO BID #60 tabs 07/12/23 atorvastatin 80 mg tablet 80 mg PO BEDTIME #30 tabs 07/12/23 loperamide 2 mg capsule (Imodium 2 mg PO Q6H PRN Diarrhea #60 caps 07/12/23 A-D) duloxetine 60 mg capsule,delayed 60 mg PO BEDTIME #30 caps 07/13/23 release hydralazine 50 mg tablet 50 mg PO TID #90 tabs 07/13/23 nystatin 100,000 unit/mL oral 1 ml PO TID #100 mL 07/19/23 suspension Magic Mouthwash 10 ml PO QID #240 mL 07/26/23 Diphen/Lido/Antacid 1:1:1 240 mL suspension clonazepam 0.5 mg tablet 0.5 mg PO BID PRN anxiety #60 tabs 08/03/23 Allergies Allergy/AdvReac Type Severity Reaction Status Date / Time Penicillins Allergy Mild Rash Verified 06/28/23 14:10 venlafaxine [From Effexor] Allergy Mild Rash Verified 06/28/23 14:10 cyclobenzaprine Allergy Unknown Unknown Verified 06/28/23 14:10 [Cyclobenzaprine] topiramate [From Topamax] Allergy Unknown Unknown Verified 06/28/23 14:10 levofloxacin [From Levaquin] AdvReac Severe Diarrhea Verified 06/28/23 14:10 Sulfa (Sulfonamide AdvReac Severe Diarrhea Verified 06/28/23 14:10 Antibiotics) fentanyl [FENTANYL] AdvReac Intermediate Hallucinati Verified 06/28/23 14:10 ons Review of Systems Review of Systems: Pertinent positives and negatives as stated in HPI [facility] Past Medical History Source: nursing notes reviewed Medical History Smoker Chronic back pain Colostomy in place (~2020) Personal history of nicotine dependence Polysubstance (including opioids) dependence, binge pattern Atrial fibrillation with rapid ventricular response Congestive heart failure Restrictive lung disease COPD (chronic obstructive pulmonary disease) No natural teeth COVID-19 vaccine series completed History of COVID-19 (~04/2020) Oxygen dependent Pericardial effusion Other and unspecified hyperlipidemia Essential hypertension Peripheral vascular disease Preoperative cardiovascular examination Bilateral pneumonia Adenocarcinoma of sigmoid colon (~2020) Hypernatremia GI bleed UTI (urinary tract infection) Pleural effusion, left Colon cancer (~2020) IVY (obstructive sleep apnea) Cancer of lower lobe of left lung (~2020) GERD (gastroesophageal reflux disease) Acute and chronic respiratory failure Lung cancer Obesity Hypoventilation associated with obesity Obesity hypoventilation syndrome Respiratory failure with hypoxia and hypercapnia Rotator cuff strain Hypoxia Pneumonia Restless legs syndrome (RLS) Sleep disorder Bipolar disorder (~2009) Back pain with history of spinal surgery Renal failure Fibromyalgia Depression High cholesterol PTSD (post-traumatic stress disorder) CAD (coronary artery disease) HTN (hypertension) Surgical History History of partial colectomy (~12/2020) History of cardiac cath (~2010) History of hysterectomy (~1990) History of cholecystectomy History of appendectomy (~1982) History of colonoscopy (~08/2020) History of lobectomy of lung (~08/2020) History of esophagogastroduodenoscopy (EGD) History of bunionectomy (~1977) History of back surgery Family History Family History Maternal Aunt Breast cancer Stroke COPD (chronic obstructive pulmonary disease) Maternal Aunt Breast cancer COPD (chronic obstructive pulmonary disease) Mother Uterine cancer COPD (chronic obstructive pulmonary disease) HTN (hypertension) Heart disease Maternal Uncle Stroke Paternal Grandmother Heart attack Sister Diabetes IBS (irritable bowel syndrome) Son HTN (hypertension) Daughter HTN (hypertension) Father HTN (hypertension) Brother Heart disease Social History Social History Household Members: Spouse Housing: House Are you a primary sub acute care nurse to a significant other at home: No Do you presently have visiting nurse or other home services: Yes Alcohol intake: never Comment: pt sleeping Patient Tobacco Use Status: Current everyday Tobacco user Tobacco use type: Cigarette Cigarettes Per Day: 4 Years Smoked: 40 Smoked in Last 30 Days: Yes e-Cigarette/Vaping Use: Never Used Second Hand Smoke Exposure: Yes Use of substances other than those prescribed or required for medical reasons: No Advance Directives: Yes Advance Directives on File: Yes Advance Directives Date on File: 10/05/22 Patient : No service: No Current occupational status: unemployed and disabled Cognitive needs: Yes (walker ) Hearing needs: No Vision needs: No Physical Exam ED Vital Signs: Vital Signs - 24 hr 08/03/23 23:54 08/04/23 05:44 Temperature 98.7 F 97.8 F Pulse Rate 88 60 Respiratory Rate 19 16 Blood Pressure 108/52 L 126/63 Pulse Oximetry 96 92 Oxygen Delivery Method Room Air Room Air BMI result Body Mass Index 33.3 VITAL SIGNS: Reviewed. GENERAL: Well developed, well nourished, in no acute distress. HEAD: Normocephalic/atraumatic EYES: PERRLA, EOMI LUNGS: Normal breath sounds. No adventitious sounds or accessory muscle use. SpO2<96>; CHEST WALL: The port is noted of the skin surface without surrounding erythema or induration. CARDIOVASCULAR: Regular rate and rhythm without noted murmurs ABDOMEN: Soft, non-tender, non-distended with bowel sounds. MUSCULOSKELETAL: No tenderness, deformities, or effusions noted on gross inspection. EXTREMITIES: No cyanosis, clubbing or edema. SKIN: Inspection of the skin reveals no rashes NEUROLOGIC: Alert and oriented x 4. Strength and sensation to light touch were grossly intact x 4. Medical Decision Making Medical Decision Making MDM Narrative: 58-year-old female with history and clinical presentation consistent with dislodgement of port access, nursing staff was able to successfully reaccess support and patient feels comfortable for reinitiating her chemotherapy and is otherwise discharged home. There is no evidence of infection at the port site. Differential Diagnosis Differential Diagnoses: The differential diagnosis associated with the presentation includes Please see the discussion above Admission/Observation Consideration of admission/observation: Escalation of care including admission/observation considered Please see the discussion above Discharge Plan Discharge Clinical Impression: Encounter for care related to vascular access port Patient Disposition: Home, Self-Care Instructions: Chemo Induced Nausea and Vomiting (ED) Additional Instructions: 1. Resume all home medications as prescribed. Do not hesitate to return to the emergency room should you need any further assistance with your port. Prescriptions: No Action Incruse Ellipta 62.5 mcg/actuation blister with device 1 inh inhalation DAILY Qty: 30 11RF nystatin 100,000 unit/gram cream 1 appl topical DAILY PRN (Reason: rash) Qty: 30 0RF divalproex 500 mg tablet extended release 24 hr 1,000 mg PO QPM 90 Days Qty: 180 2RF divalproex 500 mg tablet extended release 24 hr 500 mg PO DAILY Qty: 90 1RF riboflavin (vitamin B2) 400 mg tablet 400 mg PO DAILY 30 Days Qty: 30 6RF metoprolol succinate 50 mg tablet extended release 24 hr 50 mg PO QAM Qty: 90 1RF Breo Ellipta 100-25 mcg/dose blister with device 1 inh INHALATION DAILY Qty: 60 3RF ferrous sulfate [FeroSul] 325 mg (65 mg iron) tablet 325 mg PO BID Qty: 60 3RF albuterol sulfate 90 mcg/actuation HFA aerosol inhaler 2 puff inhalation Q4-6H PRN (Reason: shortness of breath or wheezing) Qty: 8.5 3RF Rx Instructions: USES NEEDED, SELDOMLY diltiazem HCl [Cardizem CD] 240 mg capsule,extended release 24hr 240 mg PO DAILY Qty: 60 1RF fenofibrate nanocrystallized 48 mg tablet 48 mg PO DAILY Qty: 30 2RF omeprazole 20 mg capsule,delayed release(DR/EC) 20 mg PO BID Qty: 60 2RF Ubrelvy 100 mg tablet 50 - 100 mg PO ONCE PRN (Reason: migraine headache) 30 Days Qty: 16 3RF Rx Instructions: take at onset of migraine, may repeat in 2hrs (may take w/ Ibuprofen) amitriptyline 25 mg tablet 25 mg PO BEDTIME Qty: 30 1RF atorvastatin 80 mg tablet 80 mg PO BEDTIME Qty: 30 1RF Eliquis 5 mg tablet 5 mg PO BID Qty: 60 1RF loperamide [Imodium A-D] 2 mg Capsule 2 mg PO Q6H PRN (Reason: Diarrhea) Qty: 60 3RF duloxetine 60 mg capsule,delayed release(DR/EC) 60 mg PO BEDTIME Qty: 30 1RF hydralazine 50 mg tablet 50 mg PO TID Qty: 90 1RF clonazepam 0.5 mg tablet 0.5 mg PO BID PRN (Reason: anxiety) Qty: 60 0RF dexamethasone 4 mg Tablet 4 mg PO BID Qty: 60 3RF Rx Instructions: Take 4 mg p.o. b.i.d. for 2 days starting day after chemo, Q 2 weekly. olanzapine 5 mg Tablet,Disintegrating 5 mg PO DAILY Qty: 30 0RF diphenoxylate-atropine [Lomotil] 2.5-0.025 mg Tablet 1 tab PO BID-QID PRN (Reason: Diarrhea) Qty: 60 3RF ondansetron 8 mg Tablet,Disintegrating 8 mg PO Q8H Qty: 30 4RF azithromycin 250 mg Tablet 250 mg PO DAILY Qty: 6 0RF Rx Instructions: Take 2 tablets on day 1 and 1 tablet for 4 days nystatin 100,000 unit/mL Suspension 1 ml PO TID Qty: 100 0RF Rx Instructions: swish and swallow Magic Mouthwash Diphen/Lido/Antacid 1:1:1 240 mL Suspension 10 ml PO QID Qty: 240 3RF Rx Instructions: Lidocaine Viscous 2 % 80mL; diphenhydramine 12.5 mg/5 mL 80mL; aluminum-mag hydrox-simeth [id number]/5mL 80mL (DME) blood pressure test kit-large Kit See Rx Instructions .ROUTE DIRECTED Qty: 1 Rx Instructions: As directed (DME) blood pressure monitor Kit See Rx Instructions .ROUTE .MEDSUPPLY Qty: 1 Rx Instructions: As directed peg 3350-electrolytes [Golytely] 236-22.74-6.74 -5.86 gram recon soln 240 ml PO Q10M Qty: 4000 0RF Rx Instructions: as per split prep instructions, until fecal effluent is clear docusate sodium 100 mg capsule 100 mg PO BID PRN (Reason: constipation)
[2023-08-04 05:44] VITALS: BP 126/63; PULSE 60; RESP 16; TEMP 36.6; O2SAT 92
== END 2023-08-04 06:58 | disposition home or self-care (01) ==
PROVIDERS: Emergency Provider Student in an Organized Health Care Education/Training Program
DX: T82.524A Displacement of infusion catheter, initial encounter (principal); Y82.8 Other medical devices associated with adverse incidents; Y92.9 Unspecified place or not applicable; C18.9 Malignant neoplasm of colon, unspecified; I10 Essential (primary) hypertension; J44.9 Chronic obstructive pulmonary disease, unspecified
CPT/HCPCS: 99283; 99284

== ENCOUNTER 2023-09-08 06:02 | Day surgery (SDC) | payer MEDICARE, MEDICAID, SELFPAY ==
--- NOTE | ~2023-09-08 | IR_ITS ---
PORT REMOVAL HISTORY: Concern for port eroding through skin. Patient's present for Port removal. Procedure: The risks and benefits were discussed the patient and the consent was signed. The right anterior chest was prepped and draped in routine sterile fashion. The skin was anesthetized with 1% lidocaine. An incision was made over the previous scar. Utilizing blunt dissection, the port was removed from the chest with the catheter intact. The pocket was irrigated with 50 mL of normal saline. The port pocket was closed with interrupted 3-0 Vicryl sutures in the deep layer and surgical glue to close the skin. The patient tolerated the procedure well. A sterile dressing was applied. This procedure was performed by Fer Niño PA-C, and supervised by Dr. Grady. IR/IR cvc remove tunnel w prt/tree doctor IMPRESSION: Right port removal
[2023-09-08 11:32] VITALS: BMI 33.6
--- NOTE | 2023-09-08 11:54 | MHC.SHP ---
Pre-Procedural Eval Section A - 24 Hr Update-Section A only Date of Service: 09/08/23 Section B - Complete if H&P > 30 days Chief Complaint: NO LONGER NEEDED,port malposition, Details of Present Illness: Right port eroding through skin. Needs removal Relevant Family History (Specify if Yes): No Relevant Social History: None Present Medications: see Short Stay Collaborative assessment Medical History: Significant History (Lung ca) History of Previous Operations: No relevant previous surgery Allergies: Allergies Allergy/AdvReac Type Severity Reaction Status Date / Time Penicillins Allergy Mild Rash Verified 09/08/23 11:32 venlafaxine [From Effexor] Allergy Mild Rash Verified 09/08/23 11:32 cyclobenzaprine Allergy Unknown Unknown Verified 09/08/23 11:32 [Cyclobenzaprine] topiramate [From Topamax] Allergy Unknown Unknown Verified 09/08/23 11:32 levofloxacin [From Levaquin] AdvReac Severe Diarrhea Verified 09/08/23 11:32 Sulfa (Sulfonamide AdvReac Severe Diarrhea Verified 09/08/23 11:32 Antibiotics) fentanyl [FENTANYL] AdvReac Intermediate Hallucinati Verified 09/08/23 11:32 ons Review of Systems Sugical H&P ROS: Yes, Specify: Integumentary (Mild soreness at right port) Exam Surgical H&P Exam: Normal: Neurological, Not Evaluated: HEENT, Not Evaluated: Heart and Not Evaluated: Lungs and Significant Findings: Skin (right chest wall port, scab overlying port) Plan Diagnosis/Plan: Unchanged I have reviewed the history and physical and performed a pertinent physical examination on my patient. No changes have occurred unless specified. Time Spent With Patient Time: Total time managing care of this patient today ____ minutes.
[2023-09-08 13:40] VITALS: BP 124/64; PULSE 79; RESP 16; TEMP 36.3; O2SAT 97
[2023-09-08 13:55] VITALS: BP 136/54; PULSE 77; RESP 16; TEMP 36.3; O2SAT 97
== END 2023-09-08 14:11 | disposition home or self-care (01) ==
PROVIDERS: Physician Assistant Surgical; PCP Nurse Practitioner Family; Visit Provider Internal Medicine
PROC: (CPT 36590; principal; 2023-09-08 12:30)
DX: Z45.2 Encounter for adjustment and management of vascular access device (principal); C18.9 Malignant neoplasm of colon, unspecified; Z93.3 Colostomy status; Z85.118 Personal history of other malignant neoplasm of bronchus and lung; Z85.038 Personal history of other malignant neoplasm of large intestine; Z90.49 Acquired absence of other specified parts of digestive tract; J96.21 Acute and chronic respiratory failure with hypoxia; Z99.81 Dependence on supplemental oxygen; I11.0 Hypertensive heart disease with heart failure; I50.9 Heart failure, unspecified; G47.33 Obstructive sleep apnea (adult) (pediatric); Z79.899 Other long term (current) drug therapy; Z88.0 Allergy status to penicillin; Z88.1 Allergy status to other antibiotic agents; Z88.8 Allergy status to other drugs, medicaments and biological substances; Z98.890 Other specified postprocedural states; Z56.0 Unemployment, unspecified
CPT/HCPCS: 36590; A4364

== ENCOUNTER → 2023-09-08 12:21 | Outpatient (BNV) | payer MEDICARE, MEDICAID, SELFPAY | PROVIDERS: PCP Nurse Practitioner Family; Visit Provider Physician Assistant Surgical | DX: C18.7 Malignant neoplasm of sigmoid colon (principal) | CPT/HCPCS: 36590 ==

== ENCOUNTER 2023-09-27 13:02 | Day surgery (SDC) | payer MEDICARE, MEDICAID, SELFPAY ==
--- NOTE | ~2023-09-27 | IR_ITS ---
PROCEDURE: IR INSERTION OF TUNNEL CATHETER CLINICAL INFORMATION: Cancer COMPARISON: None available. TECHNIQUE: All elements of maximal sterile barrier technique followed including use of cap, mask, sterile gown, sterile gloves, a sterile full body drape and hand hygiene. Also followed skin preparation with 2% chlorhexidine for cutaneous antisepsis, and sterile ultrasound preparation with sterile gel and probe cover when applicable. FINDINGS: Under ultrasound guidance a micropuncture needle was placed into the left internal jugular vein. A guidewire and catheter were advanced into the right atrium. The subcutaneous pocket was created just below the left clavicle. The port was placed within the pocket and the catheter was tunneled beneath the skin surface and subsequently through the peel-away sheath into the superior aspect of the right atrium. The port was accessed and blood was easily aspirated. Heparinized saline was instilled. The incision site was closed with 2-0 subcutaneous Vicryl sutures followed by Dermabond. IR/IR cvc insert tunnel w prt/gis analyst developer IMPRESSION: Placement of a madhu catheter via the left internal jugular approach
[2023-09-27 14:15] VITALS: BMI 32.6
[2023-09-27 14:21] VITALS: BP 123/59; PULSE 72; RESP 16; TEMP 36.7; O2SAT 99
[2023-09-27 14:32] LABS: INTERNATIONAL NORM RATIO 0.8 (0.9-1.1); Prothrombin Time 10.1 SEC (11.1-13.3)
[2023-09-27 14:36] LABS: Partial Thromboplastin Time 22.9 SEC (26.0-36.8)
--- NOTE | 2023-09-27 14:51 | MHC.SHP ---
Pre-Procedural Eval Section A - 24 Hr Update-Section A only Date of Service: 09/27/23 Section B - Complete if H&P > 30 days Chief Complaint: malignant neoplasm of colon Details of Present Illness: 58 y/o female with metastatic colon cancer and poor iv access. She presents for a new port Relevant Family History (Specify if Yes): No Relevant Social History: None Present Medications: see Short Stay Collaborative assessment Medical History: Significant History History of Previous Operations: Relevant previous surgery/procedure and date(s) Allergies: Allergies Allergy/AdvReac Type Severity Reaction Status Date / Time Penicillins Allergy Mild Rash Verified 09/08/23 11:32 venlafaxine [From Effexor] Allergy Mild Rash Verified 09/08/23 11:32 cyclobenzaprine Allergy Unknown Unknown Verified 09/08/23 11:32 [Cyclobenzaprine] topiramate [From Topamax] Allergy Unknown Unknown Verified 09/08/23 11:32 levofloxacin [From Levaquin] AdvReac Severe Diarrhea Verified 09/08/23 11:32 Sulfa (Sulfonamide AdvReac Severe Diarrhea Verified 09/08/23 11:32 Antibiotics) fentanyl [FENTANYL] AdvReac Intermediate Hallucinati Verified 09/08/23 11:32 ons Review of Systems Sugical H&P ROS: Negative: Cardiovascular, Respiratory and Integumentary (no pain at old port site, no drainage) Exam Surgical H&P Exam: Normal: Heart, Normal: Lungs and Normal: Neurological, Not Evaluated: HEENT and Significant Findings: Skin (old right port site- incision c/d/i, no erythema) Plan Diagnosis/Plan: Unchanged I have reviewed the history and physical and performed a pertinent physical examination on my patient. No changes have occurred unless specified. Time Spent With Patient Time: Total time managing care of this patient today ____ minutes.
--- NOTE | 2023-09-27 15:19 | P.CONAN_ITS ---
HPI - Anesthesia Eval Consult details Narrative: for madhu cath [facility] Active Problems Active Problems: All Active Problems Fibromyalgia (Acute) Thrombocythemia (Acute) Anemia (Acute) Melena (Acute) Cervicalgia (Acute) Tingling (Acute) Migraine (Acute) Elevated fasting glucose (Acute) Chronic pancreatitis (Acute) Atherosclerotic cardiovascular disease (Acute) Screening for hypothyroidism (Acute) Candidiasis, intertrigo (Acute) Smoker (Acute) GERD (gastroesophageal reflux disease) (Acute) Encounter to establish care (Acute) Iron deficiency anemia (Acute) Tension headache (Acute) Chronic back pain (Acute) Anxiety (Acute) Bipolar disorder (Acute ~2009) Encounter for medication review (Acute) PAF (paroxysmal atrial fibrillation) (Acute ~2020) Colostomy in place (Acute ~2020) Cancer of lower lobe of left lung (Acute ~2020) Adenocarcinoma of sigmoid colon (Acute ~2020) Colon cancer (Acute ~2020) CAD (coronary artery disease) (Acute) Congestive heart failure (Acute) Respiratory failure with hypoxia and hypercapnia (Acute) Hypoxia (Acute) COPD (chronic obstructive pulmonary disease) (Acute) HTN (hypertension) (Acute) High cholesterol (Acute) IVY (obstructive sleep apnea) (Acute) Peripheral vascular disease (Acute) Personal history of nicotine dependence (Acute) Polysubstance (including opioids) dependence, binge pattern (Acute) PTSD (post-traumatic stress disorder) (Acute) Depression (Acute) Renal failure (Acute) Pericardial effusion (Acute) No natural teeth (Acute) Hypernatremia (Acute) GI bleed (Acute) COVID-19 vaccine series completed (Acute) CHF exacerbation (Acute) Back pain with history of spinal surgery (Acute) Acute on chronic diastolic CHF (congestive heart failure) (Acute) Acute and chronic respiratory failure (Acute) Hematochezia (Acute) Past Medical History Medical History Smoker Chronic back pain Colostomy in place (~2020) Personal history of nicotine dependence Polysubstance (including opioids) dependence, binge pattern Atrial fibrillation with rapid ventricular response Congestive heart failure Restrictive lung disease COPD (chronic obstructive pulmonary disease) No natural teeth COVID-19 vaccine series completed History of COVID-19 (~04/2020) Oxygen dependent Pericardial effusion Other and unspecified hyperlipidemia Essential hypertension Peripheral vascular disease Preoperative cardiovascular examination Bilateral pneumonia Adenocarcinoma of sigmoid colon (~2020) Hypernatremia GI bleed UTI (urinary tract infection) Pleural effusion, left Colon cancer (~2020) IVY (obstructive sleep apnea) Cancer of lower lobe of left lung (~2020) GERD (gastroesophageal reflux disease) Acute and chronic respiratory failure Lung cancer Obesity Hypoventilation associated with obesity Obesity hypoventilation syndrome Respiratory failure with hypoxia and hypercapnia Rotator cuff strain Hypoxia Pneumonia Restless legs syndrome (RLS) Sleep disorder Bipolar disorder (~2009) Back pain with history of spinal surgery Renal failure Fibromyalgia Depression High cholesterol PTSD (post-traumatic stress disorder) CAD (coronary artery disease) HTN (hypertension) Family History Family History Maternal Aunt Breast cancer Stroke COPD (chronic obstructive pulmonary disease) Maternal Aunt Breast cancer COPD (chronic obstructive pulmonary disease) Mother Uterine cancer COPD (chronic obstructive pulmonary disease) HTN (hypertension) Heart disease Maternal Uncle Stroke Paternal Grandmother Heart attack Sister Diabetes IBS (irritable bowel syndrome) Son HTN (hypertension) Daughter HTN (hypertension) Father HTN (hypertension) Brother Heart disease Family history of problems with anesthesia: No Surgical History Surgical History History of partial colectomy (~12/2020) History of cardiac cath (~2010) History of hysterectomy (~1990) History of cholecystectomy History of appendectomy (~1982) History of colonoscopy (~08/2020) History of lobectomy of lung (~08/2020) History of esophagogastroduodenoscopy (EGD) History of bunionectomy (~1977) History of back surgery History of Problems with Anesthesia: No Social History Social History Household Members: Spouse Housing: House Are you a primary acute care clinical nurse specialist to a significant other at home: No Do you presently have visiting nurse or other home services: Yes Alcohol intake: never Comment: pt sleeping Patient Tobacco Use Status: Never used Tobacco Tobacco use type: Cigarette Cigarettes Per Day: 4 Years Smoked: 40 e-Cigarette/Vaping Use: Never Used Second Hand Smoke Exposure: Yes Use of substances other than those prescribed or required for medical reasons: No Are you DNR?: Yes Advance Directives: No Advance Directives Information Provided: Yes Advance Directives Date on File: 10/05/22 service: No Current occupational status: unemployed and disabled Cognitive needs: Yes (walker ) Hearing needs: No Vision needs: No Meds Allergies Allergy/AdvReac Type Severity Reaction Status Date / Time Penicillins Allergy Mild Rash Verified 09/08/23 11:32 venlafaxine [From Effexor] Allergy Mild Rash Verified 09/08/23 11:32 cyclobenzaprine Allergy Unknown Unknown Verified 09/08/23 11:32 [Cyclobenzaprine] topiramate [From Topamax] Allergy Unknown Unknown Verified 09/08/23 11:32 levofloxacin [From Levaquin] AdvReac Severe Diarrhea Verified 09/08/23 11:32 Sulfa (Sulfonamide AdvReac Severe Diarrhea Verified 09/08/23 11:32 Antibiotics) fentanyl [FENTANYL] AdvReac Intermediate Hallucinati Verified 09/08/23 11:32 ons Home Medications ?Medication ?Instructions ?Recorded ?Confirmed ?Last Taken ?Type blood pressure monitor #1 ea 10/22/20 06/28/23 11/28/20 History blood pressure test kit-large #1 ea 10/22/20 06/28/23 11/28/20 History docusate sodium 100 mg capsule 100 mg PO BID PRN constipation 09/21/21 06/28/23 Unknown History Exam Height,Weight and Vital Signs: Height 5 ft 4 in Weight 86.183 kg Last Vital Signs Temp 98.1 F 09/27/23 14:21 Pulse 72 09/27/23 14:21 Resp 16 09/27/23 14:21 BP 123/59 L 09/27/23 14:21 Pulse Ox 99 09/27/23 14:21 O2 Del Method Nasal Cannula 09/27/23 14:21 O2 Flow Rate 2 09/27/23 14:21 Pertinent Lab Results Pertinent Lab Results: Laboratory Tests 09/27/23 14:01 PT 10.1 L INR 0.8 L APTT 22.9 L Airway Mallampati Class: II TM Dist: >3cm Neck ROM: Full Denture: Upper and Lower Heart: rrr Lungs: cta Assessment and Plan Assessment Anesthesia Assessment: Anesthesia Plan Discussed and Chart Reviewed Final Anesthetic Review Family History of Problems with Anesthesia: No History of Problems with Anesthesia: No ASA Class: III Final Preanesthetic Review: No Changes in Pt Med Stat, Meds/Allgs Chart Reviewed, Consent Obtained/Reviewed and Anes Risks/Benef Reviewed Patient Risk: Intermediate Procedure Risk: Intermediate Anesthetic Plan Anesthetic Plan: MAC: Disposition: Standard PACU
[2023-09-27 16:05] VITALS: BP 148/73; PULSE 72; RESP 12; TEMP 36.4; O2SAT 92
[2023-09-27] MEDS: oxyCODONE HCl Immed Release 5 MG TABLET PO (16:10)
[2023-09-27] MEDS: Acetaminophen 325 MG TABLET 650 MG PO (16:10)
[2023-09-27 16:20] VITALS: BP 159/75; PULSE 76; RESP 14; O2SAT 97
[2023-09-27 16:35] VITALS: BP 156/64; PULSE 81; RESP 16; O2SAT 98
[2023-09-27 16:50] VITALS: BP 153/71; PULSE 82; RESP 18; TEMP 36.3; O2SAT 98
== END 2023-09-27 17:04 | disposition home or self-care (01) ==
LOC: HO.SSS 13:05
PROVIDERS: Physician Assistant Surgical; Radiology Vascular & Interventional Radiology; Visit Provider Internal Medicine
DX: Z45.2 Encounter for adjustment and management of vascular access device (principal); C18.9 Malignant neoplasm of colon, unspecified; I10 Essential (primary) hypertension; J44.9 Chronic obstructive pulmonary disease, unspecified; I48.0 Paroxysmal atrial fibrillation; I11.0 Hypertensive heart disease with heart failure; I50.9 Heart failure, unspecified; R73.01 Impaired fasting glucose; D50.9 Iron deficiency anemia, unspecified; Z90.49 Acquired absence of other specified parts of digestive tract; Z90.2 Acquired absence of lung [part of]; Z99.81 Dependence on supplemental oxygen; Z88.0 Allergy status to penicillin; Z88.1 Allergy status to other antibiotic agents; Z88.5 Allergy status to narcotic agent; Z88.8 Allergy status to other drugs, medicaments and biological substances; Z56.0 Unemployment, unspecified; F17.210 Nicotine dependence, cigarettes, uncomplicated
CPT/HCPCS: 36415; 36561; 76937; 85610; 85730; A4364; C1769; C1788; J0690; J0736; J1100; J1642; J1644; J2250; J2405; J2704

== ENCOUNTER → 2023-09-27 14:44 | Outpatient (BNV) | payer MEDICARE, MEDICAID, SELFPAY | PROVIDERS: Visit Provider Radiology Vascular & Interventional Radiology | DX: C18.7 Malignant neoplasm of sigmoid colon (principal) | CPT/HCPCS: 36561; 76937 ==

== ENCOUNTER 2023-10-04 16:57 | Outpatient (AMB) | payer MEDICARE, MEDICAID, SELFPAY ==
[2023-10-04 16:58] VITALS: BP 130/68; PULSE 80; O2SAT 95; BMI 33.1
--- NOTE | 2023-10-04 16:58 | MHC.PC.OV ---
Vital Signs 10/04/23 16:58 Height 5 ft 4 in Weight 193 lb BMI 33.1 BP 130/68 Blood Pressure Location Lt brachial Position Sitting Pulse 80 Pulse Source Pulse Oximeter Pulse Oximetry (%) 95 Oxygen Delivery Method Room Air Intake Visit Reasons: Transfer care Intake Note: Patient here transferring of care Supervisor Post Wave Required: No Accompanied by: Self / Same As Patient Allergies Penicillins Allergy (Mild, Verified 10/04/23 17:22) Rash venlafaxine [From Effexor] Allergy (Mild, Verified 10/04/23 17:22) Rash cyclobenzaprine [Cyclobenzaprine] Allergy (Unknown, Verified 10/04/23 17:22) Unknown topiramate [From Topamax] Allergy (Unknown, Verified 10/04/23 17:22) Unknown levofloxacin [From Levaquin] Adverse Reaction (Severe, Verified 10/04/23 17:22) Diarrhea Sulfa (Sulfonamide Antibiotics) Adverse Reaction (Severe, Verified 10/04/23 17:22) Diarrhea fentanyl [FENTANYL] Adverse Reaction (Intermediate, Verified 10/04/23 17:22) Hallucinations Medication List - Last Reconciled 10/04/23 by Chelsea Armstrong MD albuterol sulfate 90 mcg/actuation 2 puffs inhalation Q4-6H PRN amitriptyline 25 mg PO BEDTIME apixaban (Eliquis) 5 mg PO BID atorvastatin 80 mg PO BEDTIME blood pressure monitor As directed blood pressure test kit-large As directed clonazepam 0.5 mg PO BID PRN dexamethasone 4 mg PO BID diltiazem HCl CD (Cardizem CD) 240 mg PO DAILY diphenoxylate-atropine 2.5-0.025 mg (Lomotil) 1 tab PO BID-QID PRN divalproex ER 500 mg PO DAILY divalproex ER 1,000 mg (2 x 500 mg) PO QPM 90 days docusate sodium 100 mg PO BID PRN doxycycline hyclate 100 mg PO BID duloxetine 60 mg PO BEDTIME fenofibrate nanocrystallized 48 mg PO DAILY ferrous sulfate (FeroSul) 325 mg PO BID fluticasone furoate-vilanterol 100-25 mcg/dose (Breo Ellipta) 1 inh inhalation DAILY hydralazine 50 mg PO TID loperamide (Imodium A-D) 2 mg PO Q6H PRN Magic Mouthwash Diphen/Lido/Antacid 1:1:1 10 mL PO QID metoprolol succinate ER 50 mg PO QAM nystatin 1 mL PO TID nystatin 1 appl topical DAILY PRN olanzapine 5 mg PO DAILY omeprazole 20 mg PO BID ondansetron 8 mg PO Q8H peg 3350-electrolytes 236-22.74-6.74 -5.86 gram (Golytely) 240 mL PO Q10M potassium chloride ER (K-Tab) 20 mEq PO DAILY riboflavin (vitamin B2) 400 mg PO DAILY 30 days ubrogepant (Ubrelvy) 50 - 100 mg (0.5 - 1 x 100 mg) PO ONCE PRN 30 days umeclidinium 62.5 mcg/actuation (Incruse Ellipta) 1 inh inhalation DAILY walker (Ultra-Light Rollator misc) As directed Tobacco use date assessed: 10/04/23 Dental Screening Dental Screen Date: 10/04/23 Did you have a dental visit in the last 12 months?: No Did you have a dental problem in the last 6 months where you did not have access to dental care?: No Was dental information given to patient?: Patient declined HPI HPI Comments History of Present Illness Details This is a 62-year-old female with moderate major depression, bipolar disorder, COPD, paroxysmal atrial fibrillation, adenocarcinoma of sigmoid colon diagnosed in 2020 and currently on chemotherapy with colostomy in place and hypertension that comes today for follow-up on her conditions. Depression still present and she takes duloxetine for this. Has bipolar disorder well controlled with divalproex. COPD stable with long-acting inhaler and use rescue inhaler as needed. COPD is follow by pulmonology. On chronic anticoagulation for atrial fibrillation and follows with cardiology as well as for her congestive heart failure. Has not gain 5 lb in a week. Denies any chest pain, shortness on breath or leg swelling. Had colonoscopy done 2020 showing adenocarcinoma of sigmoid colon and restarted chemotherapy recently. Colostomy is in place. Blood pressure stable with medications. Complains of increase in anxiety and he is asking for an increase in clonazepam from 0.5 mg twice a day to 1 mg twice a day. Patient is aware that clonazepam can cause addiction, sedation and memory loss. [facility] Medical History (Updated 10/05/23 @ 07:36 by Chelsea Armstrong MD) Smoker Chronic back pain Colostomy in place (~2020) Personal history of nicotine dependence Polysubstance (including opioids) dependence, binge pattern Atrial fibrillation with rapid ventricular response Congestive heart failure Restrictive lung disease COPD (chronic obstructive pulmonary disease) No natural teeth COVID-19 vaccine series completed History of COVID-19 (~04/2020) Oxygen dependent Pericardial effusion Other and unspecified hyperlipidemia Essential hypertension Peripheral vascular disease Preoperative cardiovascular examination Bilateral pneumonia Adenocarcinoma of sigmoid colon (~2020) Hypernatremia GI bleed UTI (urinary tract infection) Pleural effusion, left Colon cancer (~2020) IVY (obstructive sleep apnea) Cancer of lower lobe of left lung (~2020) GERD (gastroesophageal reflux disease) Acute and chronic respiratory failure Lung cancer Obesity Hypoventilation associated with obesity Obesity hypoventilation syndrome Respiratory failure with hypoxia and hypercapnia Rotator cuff strain Hypoxia Pneumonia Restless legs syndrome (RLS) Sleep disorder Bipolar disorder (~2009) Back pain with history of spinal surgery Renal failure Fibromyalgia Depression High cholesterol PTSD (post-traumatic stress disorder) CAD (coronary artery disease) HTN (hypertension) Surgical History History of partial colectomy (~12/2020) History of cardiac cath (~2010) History of hysterectomy (~1990) History of cholecystectomy History of appendectomy (~1982) History of colonoscopy (~08/2020) History of lobectomy of lung (~08/2020) History of esophagogastroduodenoscopy (EGD) History of bunionectomy (~1977) History of back surgery Family History (Updated 10/04/23 @ 17:35 by Chelsea Armstrong MD) Maternal Aunt Breast cancer Stroke COPD (chronic obstructive pulmonary disease) Maternal Aunt Breast cancer COPD (chronic obstructive pulmonary disease) Mother Uterine cancer COPD (chronic obstructive pulmonary disease) HTN (hypertension) Heart disease Mental health disorder Maternal Uncle Stroke Paternal Grandmother Heart attack Parkinsons disease Sister Diabetes IBS (irritable bowel syndrome) Son HTN (hypertension) Substance use disorder Daughter HTN (hypertension) Father HTN (hypertension) Brother Heart disease Family/Other Mental health disorder Social History Household Members: Spouse Housing: House Are you a primary respiratory care faculty to a significant other at home: No Do you presently have visiting nurse or other home services: Yes Alcohol intake: never Comment: pt sleeping Patient Tobacco Use Status: Former Tobacco user Tobacco use type: Cigarette Years Smoked: 40 e-Cigarette/Vaping Use: Never Used Second Hand Smoke Exposure: Yes Advance Directives Date on File: 10/05/22 service: No Current occupational status: unemployed and disabled Cognitive needs: Yes (walker ) Hearing needs: No Vision needs: No Questionnaire PHQ-9 Over the last 2 weeks, how often have you been bothered by any of the following problems? 1. Little interest or pleasure in doing things: not at all 2. Feeling down, depressed, or hopeless: more than half the days 3. Trouble falling or staying asleep, or sleeping too much: nearly every day 4. Feeling tired or having little energy: nearly every day 5. Poor appetite or overeating: several days 6. Feeling bad about yourself - or that you are a failure or have let yourself or your family down: nearly every day 7. Trouble concentrating on things, such as reading the newspaper or watching television: several days 8. Moving or speaking so slowly that other people could have noticed. Or the opposite - being so fidgety or restless that you have been moving around a lot more than usual: nearly every day 9. Thoughts that you would be better off or of hurting yourself in some way: not at all Total score: 16 Depression Screening Interpretation: Positive (no suicidal thoughts) Depression Screening Follow-up: Existing condition and In treatment Depression Screening Done: Yes 41676 - PHQ-9 Billing: Yes Source: Developed by Drs. Parrish Hernandez, Claire Washington, Maxwell Oquendo and colleagues, with an educational skip from [employer]. Thrive Questionnaire Date Thrive assessed: 10/04/23 I am a: Patient What is your living situation today?: I have a steady place to live Within the past 12 months, did the food you bought not last and you didn't have the money to get more?: Never true Within the past 12 months, did you worry whether your food would run out before you got money to buy more?: Never true Do you have trouble paying for medicines?: No Do you have trouble getting transportation to medical appointments?: No Do you have trouble paying your heating and electricity bill?: No Do you have trouble taking care of your child, family member or friend?: No Do you have trouble with day-to-day activities such as bathing, preparing meals, shopping, managing finances, etc.?: No Are you currently unemployed and looking for a job?: No Are you interested in more education?: No Please select the resources that you would like help with: None Currently or been in a relationship where the following occur: no concerns reported THRIVE Score: 0 AUDIT C Alcohol Use Questionnaire (AUDIT-C) 1. How often do you have a drink containing alcohol?: Never Total Score: 0 Score Reviewed/Action Taken: No MARIA INES-7 AMB Questionnaire MARIA INES-7 Date MARIA INES - 7 assessed: 10/04/23 Feeling nervous, anxious, or on edge: 3 = Nearly every day Not being able to stop or control worryin = Nearly every day Worrying too much about different things: 3 = Nearly every day Trouble relaxin = Nearly every day Being so restless that it is hard to sit still: 3 = Nearly every day Becoming easily annoyed or irritable: 3 = Nearly every day Feeling afraid as if something awful might happen: 3 = Nearly every day Total MARIA INES-7 score (0-4 normal; 5-9 mild; 10-14 moderate; 15-21 severe): 21 Source: Developed by Drs. Parrish Hernandez, Claire Washington, Maxwell Oquendo and colleagues, with an educational skip from [employer]. MARIA INES-7 Assessment Billing MARIA INES-7 Assessment Tool: MARIA INES-7 Assessment 00515 Review of Systems Const All systems reviewed & are unremarkable except as noted in HPI and below Eyes Reports no additional complaints, Denies change in vision and Denies other visual disturbances Card Denies chest pain at rest, Denies chest pain with activity, Denies edema, Denies irregular heart rhythm, Denies claudication, Denies dyspnea, Denies dyspnea on exertion, Denies orthopnea, Denies paroxysmal nocturnal dyspnea and Denies slow heart rate Resp Denies cough, Denies dyspnea and Denies dyspnea on exertion Psych Reports anxiety and Reports depression Physical exam (Primary Care) Vital Signs: Last Vital Signs Pulse 80 10/04/23 16:58 BP 130/68 10/04/23 16:58 Pulse Ox 95 10/04/23 16:58 Oxygen Delivery Method Room Air 10/04/23 16:58 BMI result Body Mass Index 33.1 Tobacco/Smoking Status: Tobacco use Status Tobacco use date assessed 10/04/23 10/04/23 17:14 Patient Tobacco Use Status Former Tobacco user 10/04/23 17:14 Tobacco use type Cigarette 10/04/23 17:14 e-Cigarette/Vaping Use Never Used 10/04/23 17:14 PHQ-9: PHQ-9 Score PHQ-9: Total score 16 10/04/23 17:29 Depression Screening Interpretation: Positive (no suicidal thoughts) Depression Screening Follow-up: Existing condition and In treatment Thrive Assessment: Date of Thrive Assessment Date Thrive assessed 10/04/23 10/04/23 17:14 Currently or been in a relationship where the following occur: no concerns reported HENMT Other: Alopecia Resp Effort & Inspection: normal respiratory effort Auscultation: clear to auscultation bilaterally Cardio Jugular venous distension: no JVD Rate: regular rate Rhythm: regular rhythm Heart sounds: S1 normal heart sound present and S2 normal heart sound present GI Other: Colostomy in place. Extrem General: Yes full ROM Assessment and Plan Assessment & Plan (1) Bipolar disorder: Onset Date: ~2009 Code(s): F31.9 - Bipolar disorder, unspecified Plan: Continue divalproex. (2) PAF (paroxysmal atrial fibrillation): Onset Date: ~2020 Code(s): I48.0 - Paroxysmal atrial fibrillation Plan: Continue metoprolol and Eliquis. The goal is heart rate control. Follow-up with Cardiology. (3) Colostomy in place: Onset Date: ~2020 Comment: (s/p sigmoidectomy/colostomy 12/2020 - for adenocarcinoma of colon) Code(s): Z93.3 - Colostomy status Plan: Continue colostomy care as usual. (4) Adenocarcinoma of sigmoid colon: Onset Date: ~2020 Comment: s/p resection , and has permanant Colostomy Code(s): C18.7 - Malignant neoplasm of sigmoid colon Plan: Continue chemotherapy. Follow-up with Hematology-Oncology. (5) COPD (chronic obstructive pulmonary disease): Comment: CLINICALLY THE PATIENT DOES HAVE CHRONIC OBSTRUCTIVE PULMONARY DISEASE, SEEMS TO BE QUITE STABLE AT THIS TIME WITH THE CURRENT REGIMEN. TX : CONTINUE TO USE: BREO ELLIPTA 100-50 1 INHALATION DAILY INCRUSE ELLIPTA 1 INHALATION DAILY ALBUTEROL HFA 2 PUFFS Q 4-6 HOURS P.R.N. Code(s): J44.9 - Chronic obstructive pulmonary disease, unspecified Qualifiers: COPD type: COPD with acute exacerbation Qualified Code(s): J44.1 - Chronic obstructive pulmonary disease with (acute) exacerbation Plan: Continue Breo. Follow-up with pulmonology. (6) HTN (hypertension): Code(s): I10 - Essential (primary) hypertension Plan: Continue hydralazine. Blood pressure goal is equal or less than 130/80. (7) Moderate major depression: Code(s): F32.1 - Major depressive disorder, single episode, moderate Plan: Continue amitriptyline and duloxetine. Orders: Orders Lipid Panel 10/04/23 E78.5 - Hyperlipidemia, unspecified Medications: New clonazepam 1 mg PO BID 30 days 60 tabs 0RF Discontinued clonazepam Discontinued Reason: Patient Completed Course 0.5 mg PO BID PRN 60 tabs 0RF anxiety F41.9 - Anxiety disorder, unspecified Coding Level of Care Code Est Pt Level 5 (57004) Diagnoses Bipolar disorder F31.9 PAF (paroxysmal atrial fibrillation) I48.[address] Z93.3 Adenocarcinoma of sigmoid colon C18.7 Chronic obstructive pulmonary disease with acute exacerbation J44.1 COPD type: COPD with acute exacerbation HTN (hypertension) I10 Moderate major depression F32.1 Additional Codes MARIA INES-7 Assessment Billing - MARIA INES-7 Assessment Tool: MARIA INES-7 Assessment [id number] ([id number]) Time Spent (min) 30
== END 2023-10-04 18:01 | disposition home or self-care (01) ==
PROVIDERS: PCP Nurse Practitioner Family; Visit Provider Internal Medicine
DX: I48.0 Paroxysmal atrial fibrillation (principal); F31.9 Bipolar disorder, unspecified; C18.7 Malignant neoplasm of sigmoid colon; Z93.3 Colostomy status; J44.1 Chronic obstructive pulmonary disease with (acute) exacerbation; I10 Essential (primary) hypertension; F32.1 Major depressive disorder, single episode, moderate
CPT/HCPCS: 99215

== ENCOUNTER 2023-10-12 14:02 | Outpatient (AMB) | payer MEDICARE, MEDICAID, SELFPAY ==
[2023-10-12 14:14] VITALS: BP 108/72; PULSE 87; O2SAT 97; BMI 32.9
--- NOTE | 2023-10-12 14:14 | MHC.OFFVIS ---
Vital Signs 10/12/23 14:14 Height 5 ft 4 in Weight 191 lb 12.835 oz BMI 32.9 BP 108/72 Blood Pressure Location Lt brachial Position Sitting Pulse 87 Pulse Source Pulse Oximeter Pulse Oximetry (%) 97 Oxygen Delivery Method Nasal Cannula Oxygen Flow Rate 2 Intake Visit Reasons: COPD Intake Note: pt is here for follow up and states she is doing well, having a pet scan tomorrow, chemo is every other week (Dr. Ahumada) Allergies Penicillins Allergy (Mild, Verified 10/12/23 14:27) Rash venlafaxine [From Effexor] Allergy (Mild, Verified 10/12/23 14:27) Rash cyclobenzaprine [Cyclobenzaprine] Allergy (Unknown, Verified 10/12/23 14:27) Unknown topiramate [From Topamax] Allergy (Unknown, Verified 10/12/23 14:27) Unknown levofloxacin [From Levaquin] Adverse Reaction (Severe, Verified 10/12/23 14:27) Diarrhea Sulfa (Sulfonamide Antibiotics) Adverse Reaction (Severe, Verified 10/12/23 14:27) Diarrhea fentanyl [FENTANYL] Adverse Reaction (Intermediate, Verified 10/12/23 14:27) Hallucinations Medication List - Last Reconciled 10/12/23 by Eduardo Cowan MD albuterol sulfate 90 mcg/actuation 2 puffs inhalation Q4-6H PRN alprazolam 0.5 mg PO DAILY amitriptyline 25 mg PO BEDTIME apixaban (Eliquis) 5 mg PO BID atorvastatin 80 mg PO BEDTIME blood pressure monitor As directed blood pressure test kit-large As directed clonazepam 1 mg PO BID 30 days dexamethasone 4 mg PO BID diltiazem HCl CD (Cardizem CD) 240 mg PO DAILY diphenoxylate-atropine 2.5-0.025 mg (Lomotil) 1 tab PO BID-QID PRN divalproex ER 500 mg PO DAILY divalproex ER 1,000 mg (2 x 500 mg) PO QPM 90 days docusate sodium 100 mg PO BID PRN duloxetine 60 mg PO BEDTIME fenofibrate nanocrystallized 48 mg PO DAILY ferrous sulfate (FeroSul) 325 mg PO BID fluticasone furoate-vilanterol 100-25 mcg/dose (Breo Ellipta) 1 inh inhalation DAILY hydralazine 50 mg PO TID loperamide (Imodium A-D) 2 mg PO Q6H PRN Magic Mouthwash Diphen/Lido/Antacid 1:1:1 10 mL PO QID metoprolol succinate ER 50 mg PO QAM nystatin 1 mL PO TID nystatin 1 appl topical DAILY PRN olanzapine 5 mg PO DAILY omeprazole 20 mg PO BID ondansetron 8 mg PO Q8H peg 3350-electrolytes 236-22.74-6.74 -5.86 gram (Golytely) 240 mL PO Q10M potassium chloride ER (K-Tab) 20 mEq PO DAILY riboflavin (vitamin B2) 400 mg PO DAILY 30 days ubrogepant (Ubrelvy) 50 - 100 mg (0.5 - 1 x 100 mg) PO ONCE PRN 30 days umeclidinium 62.5 mcg/actuation (Incruse Ellipta) 1 inh inhalation DAILY walker (Ultra-Light Rollator misc) As directed Do you need a note to return to daycare/school/sports/work: No HPI HPI COPD: Details: SEVERO IS 58 YEARS OLD FEMALE, COMES AFTER 6 MONTHS FOR FOLLOW-UP FOR HER COPD AND HYPOXEMIA. SHE TELLS ME THAT SHE DID FINALLY QUIT SMOKING SINCE 2 MONTHS AGO. AFTER THAT COUGH IS MINIMAL, SHE DENIES ANY. WHEEZING ATTACKS SHE STAYS ON OXYGEN 2 L/MINUTE, AND CAN WALK AROUND WITH LESS SHORTNESS OF BREATH THAN BEFORE. SHE IS BEING TREATED WITH CHEMOTHERAPY Q.2 WEEKS FOR METASTATIC COLON CANCER, AND ALSO HAS HAD LEFT LOWER LOBECTOMY FOR ADENO CARCINOMA OF THE LUNG, WITHOUT RECURRENCE. STATUS POST SIGMOID COLON RESECTION AND PERMANENT COLOSTOMY IN THE PAST SHE HAS HAD RESPIRATORY FAILURE WITH HYPOXEMIA AND HYPERCAPNIA WHICH HAS MUCH IMPROVED. SHE IS DOING MUCH BETTER SINCE SHE IS ON O2 2 L/MINUTE CONTINUOUSLY FOR[facility]LY [facility] Medical History Smoker Chronic back pain Colostomy in place (~2020) Personal history of nicotine dependence Polysubstance (including opioids) dependence, binge pattern Atrial fibrillation with rapid ventricular response Congestive heart failure Restrictive lung disease COPD (chronic obstructive pulmonary disease) No natural teeth COVID-19 vaccine series completed History of COVID-19 (~04/2020) Oxygen dependent Pericardial effusion Other and unspecified hyperlipidemia Essential hypertension Peripheral vascular disease Preoperative cardiovascular examination Bilateral pneumonia Adenocarcinoma of sigmoid colon (~2020) Hypernatremia GI bleed UTI (urinary tract infection) Pleural effusion, left Colon cancer (~2020) IVY (obstructive sleep apnea) Cancer of lower lobe of left lung (~2020) GERD (gastroesophageal reflux disease) Acute and chronic respiratory failure Lung cancer Obesity Hypoventilation associated with obesity Obesity hypoventilation syndrome Respiratory failure with hypoxia and hypercapnia Rotator cuff strain Hypoxia Pneumonia Restless legs syndrome (RLS) Sleep disorder Bipolar disorder (~2009) Back pain with history of spinal surgery Renal failure Fibromyalgia Depression High cholesterol PTSD (post-traumatic stress disorder) CAD (coronary artery disease) HTN (hypertension) Surgical History History of partial colectomy (~12/2020) History of cardiac cath (~2010) History of hysterectomy (~1990) History of cholecystectomy History of appendectomy (~1982) History of colonoscopy (~08/2020) History of lobectomy of lung (~08/2020) History of esophagogastroduodenoscopy (EGD) History of bunionectomy (~1977) History of back surgery Family History Maternal Aunt Breast cancer Stroke COPD (chronic obstructive pulmonary disease) Maternal Aunt Breast cancer COPD (chronic obstructive pulmonary disease) Mother Uterine cancer COPD (chronic obstructive pulmonary disease) HTN (hypertension) Heart disease Mental health disorder Maternal Uncle Stroke Paternal Grandmother Heart attack Parkinsons disease Sister Diabetes IBS (irritable bowel syndrome) Son HTN (hypertension) Substance use disorder Daughter HTN (hypertension) Father HTN (hypertension) Brother Heart disease Family/Other Mental health disorder Social History Household Members: Spouse Housing: House Are you a primary career information specialist to a significant other at home: No Do you presently have visiting nurse or other home services: Yes Alcohol intake: never Comment: pt sleeping Patient Tobacco Use Status: Former Tobacco user Tobacco use type: Cigarette Cigarettes Per Day: 4 Years Smoked: 40 e-Cigarette/Vaping Use: Never Used Second Hand Smoke Exposure: Yes Advance Directives Date on File: 10/05/22 service: No Current occupational status: unemployed and disabled Cognitive needs: Yes (walker ) Hearing needs: No Vision needs: No Review of Systems Const All systems reviewed & are unremarkable except as noted in HPI and below ENT Denies nasal congestion and Denies nasal discharge Card Denies chest pain, Denies leg edema and Reports dyspnea on exertion (MODERATE ) Resp Reports cough (MILD , OCCASIONAL ), Denies hemoptysis, Reports dyspnea on exertion (MODERATE ) and Denies wheezing GI Reports no additional complaints Musc Reports abnormal gait (IMPAIRED GAIT , SEC TO MUSCULAR WEAKNESS ) and Reports back pain (MILD ) Neuro Reports abnormal gait (IMPAIRED GAIT , SEC TO MUSCULAR WEAKNESS ) Psych Reports no additional complaints Endo Reports no additional complaints Aller/Immun Denies wheezing Physical Exam Vital Signs: Last Vital Signs Pulse 87 10/12/23 14:14 BP 108/72 10/12/23 14:14 Pulse Ox 97 10/12/23 14:14 Oxygen Delivery Method Nasal Cannula 10/12/23 14:14 Oxygen Flow Rate 2 10/12/23 14:14 BMI result Body Mass Index 32.9 Const General: comfortable, no acute distress, alert and awake Orientation/consciousness: patient oriented x3 HEENT Head: Yes normal to inspection General nose exam: No nasal polyps present and No nasal discharge present Face and sinus: Yes sinuses nontender Mouth: oropharynx normal Throat: Yes posterior oropharynx normal Eyes General: appearance normal, both eyes and all related structures Neck Neck: Yes normal visual inspection, Yes no lymphadenopathy, Yes trachea midline and Yes no JVD Thyroid: Thyroid normal Chest Chest palpation & inspection: normal inspection of the chest, normal palpation of entire chest wall and no tenderness Resp Other: PERCUSSION NOTE RESONANT, BREATH SOUNDS ARE SLIGHTLY DISTANT ESPECIALLY OVER THE BASILAR AREAS. NO WHEEZES OR RHONCHI ARE HEARD. Cardio Palpation: normal PMI Rate: regular rate Rhythm: regular rhythm Heart sounds: no gallops and no murmurs GI Palpation (GI): Soft to palpation, nontender, No hepatosplenomegaly present, no masses and Other GI palpation findings present (COLOSTOMY IN THE LEFT UPPER QUADRANT AND ALSO extensive surgical scar) Auscultation: normal bowel sounds Back/Spine/Pelvis Thoracic/Lumbar Spine: thoracic and lumbar spine normal to inspection and thoraco-lumbar ROM limited Skin General skin exam: no rashes or lesions noted Neuro General: patient oriented x3, No gait normal (GAIT IS IMPAIRED AND SHE HAS TO USE WALKER) and no focal motor deficits Cranial nerves: Yes CN's II-XII intact bilaterally Extrem General: Yes normal to inspection, Yes no clubbing, cyanosis or edema and Yes no calf tenderness Psych Appearance: grossly normal and well kempt Speech and movement: Normal speech and movement present Office Procedures Spirometry Testing Spirometry Comments: In office spirometry completed with results to Dr Cowan. [id number] Spirometry Results Reviewed Results Reviewed: SPIROMETRY FVC 72% FEV1 58% FEV1/FVC 63 FEF 25-75 31% c/w moderately severe obstructive and restrictive pulmonary disorder. Assessment & Plan Assessment & Plan (1) IVY (obstructive sleep apnea): Comment: PATIENT DOES HAVE HISTORY OF OBSTRUCTIVE SLEEP APNEA, SHE WAS NEVER KEEN TO USE THE CPAP/BIPAP AND REMAINED NON COMPLIANT, SO SHE RETURNED HER CPAP DEVICE TO [facility] [place]. IN 2021 BECAUSE OF SIGNIFICANT WEIGHT LOSS AFTER COLON RESECTION. CLINICALLY HER IVY SEEMS TO HAVE RESOLVED. Code(s): G47.33 - Obstructive sleep apnea (adult) (pediatric) Category: Medical Plan: WATCH THE WEIGHT. IF PROBLEM WITH SLEEP, HER EXCESSIVE SNORING, WE MAY HAVE TO RE-EVALUATE FOR IVY (2) COPD (chronic obstructive pulmonary disease): Comment: CLINICALLY THE PATIENT DOES HAVE CHRONIC OBSTRUCTIVE PULMONARY DISEASE, SEEMS TO BE QUITE STABLE AT THIS TIME WITH THE CURRENT REGIMEN. Code(s): J44.9 - Chronic obstructive pulmonary disease, unspecified Category: Medical Qualifiers: COPD type: COPD with acute exacerbation Qualified Code(s): J44.1 - Chronic obstructive pulmonary disease with (acute) exacerbation Plan: TX : CONTINUE TO USE: BREO ELLIPTA 100-25 1 INHALATION DAILY INCRUSE ELLIPTA 1 INHALATION DAILY ALBUTEROL HFA 2 PUFFS Q 4-6 HOURS P.R.N. (3) Respiratory failure with hypoxia and hypercapnia: Comment: ,, The patient has. Had hypoxemia and was on oxygen therapy. However she had stopped using the oxygen on her own and returned the equipment. Since her visit ON 04/19, when she was sent to our office from the ONCOLOGY clinic because of hypoxemia, she has been started on portable unit with 3 L/minute. Now she is using O2 24 hours a day, 2 L/minute when resting or sleeping and 3 L/minute when outdoors. Feels good. Code(s): J96.91 - Respiratory failure, unspecified with hypoxia; J96.92 - Respiratory failure, unspecified with hypercapnia Category: Medical Qualifiers: Chronicity: acute on chronic Qualified Code(s): J96.21 - Acute and chronic respiratory failure with hypoxia; J96.22 - Acute and chronic respiratory failure with hypercapnia Plan: CONTINUE O2 2 L/MINUTE, AT NIGHT AND DURING THE DAYTIME. MAY INCREASE TO 3 L/MINUTE WHEN WALKING OUTDOORS. (4) Smoker: Comment: Patient has lifelong history of smoking. FINALLY QUIT SMOKING 2 MONTHS AGO. Code(s): F17.200 - Nicotine dependence, unspecified, uncomplicated Category: Social Hx Plan: Commended for quitting smoking. Do not go back. To smoking at all (5) Cancer of lower lobe of left lung: Onset Date: ~2020 Comment: (Adenocarcinoma, pT1c, pN0, MX - s/p LLL lobectomy 09/01/20) Current CT scan does show presence of a few small pulmonary nodules in the left lower lobe area . Code(s): C34.32 - Malignant neoplasm of lower lobe, left bronchus or lung Category: Medical Plan: Continue to have annual lung scan for follow-up. (6) Personal history of nicotine dependence: Comment: (onset 14, 3/4ppd x 41yrs, 30pyh, quit 2020) STILL SMOKING ABOUT 3 CIGARETTES A DAY. She knows that she should quit completely and is trying her best, Since 2 months ago has quit completely . And feels good. Code(s): Z87.891 - Personal history of nicotine dependence Category: Medical Plan: Commended for quitting smoking completely. Do not go back to smoking at all. Orders: Orders AMB Spirometry Testing Today J44.1 - Chronic obstructive pulmonary disease with (acute) exacerbation Coding Level of Care Code Est Pt Level 4 (97585) Diagnoses IVY (obstructive sleep apnea) G47.33 Chronic obstructive pulmonary disease with acute exacerbation J44.1 COPD type: COPD with acute exacerbation Acute on chronic respiratory failure with hypoxia and hypercapnia J96.21; J96.22 Chronicity: acute on chronic Smoker F17.200 Cancer of lower lobe of left lung C34.32 Personal history of nicotine dependence Z87.891 CPT Codes Spirometry - CPT: 64996- Spirometry ([id number])
== END 2023-10-12 15:00 | disposition home or self-care (01) ==
PROVIDERS: PCP Nurse Practitioner Family; Referring Provider Nurse Practitioner Family; Visit Provider Internal Medicine
DX: G47.33 Obstructive sleep apnea (adult) (pediatric) (principal); J44.1 Chronic obstructive pulmonary disease with (acute) exacerbation; J96.21 Acute and chronic respiratory failure with hypoxia; J96.22 Acute and chronic respiratory failure with hypercapnia; C34.32 Malignant neoplasm of lower lobe, left bronchus or lung; Z87.891 Personal history of nicotine dependence
CPT/HCPCS: 94010; 99214

== ENCOUNTER → 2023-10-12 14:02 | Outpatient (BNVA) | payer MEDICARE, MEDICAID, SELFPAY | PROVIDERS: PCP Nurse Practitioner Family; Visit Provider Internal Medicine | DX: J44.1 Chronic obstructive pulmonary disease with (acute) exacerbation (principal); J96.21 Acute and chronic respiratory failure with hypoxia; J96.22 Acute and chronic respiratory failure with hypercapnia; G47.33 Obstructive sleep apnea (adult) (pediatric); C34.32 Malignant neoplasm of lower lobe, left bronchus or lung; F17.210 Nicotine dependence, cigarettes, uncomplicated | CPT/HCPCS: 94010; 99212 ==

== ENCOUNTER 2023-11-15 08:02 | Outpatient (REF) | payer MEDICARE, MEDICAID, SELFPAY ==
[2023-11-15 09:09] LABS: Cholesterol 274 mg/dL (<200); HDL Cholesterol 44 mg/dL (>40); Triglycerides 946 mg/dL (<150)
== END 2023-11-15 08:03 | disposition home or self-care (01) ==
LOC: HO.LAB 08:02
PROVIDERS: PCP Internal Medicine; Visit Provider Internal Medicine
DX: E78.5 Hyperlipidemia, unspecified (principal)
CPT/HCPCS: 36415; 80061

== ENCOUNTER 2023-12-18 11:04 | Outpatient (AMB) | payer MEDICARE, MEDICAID, SELFPAY ==
[2023-12-18 14:45] VITALS: PULSE 87; O2SAT 95; BMI 32.5
--- NOTE | 2023-12-18 14:45 | MHC.OFFVIS ---
Vital Signs 12/18/23 14:45 Height 5 ft 4 in Weight 189 lb 9.561 oz BMI 32.5 Pulse 87 Pulse Oximetry (%) 95 Oxygen Delivery Method Room Air Intake Visit Reasons: 6 minute walk Allergies Penicillins Allergy (Mild, Verified 12/18/23 14:45) Rash venlafaxine [From Effexor] Allergy (Mild, Verified 12/18/23 14:45) Rash cyclobenzaprine [Cyclobenzaprine] Allergy (Unknown, Verified 12/18/23 14:45) Unknown topiramate [From Topamax] Allergy (Unknown, Verified 12/18/23 14:45) Unknown levofloxacin [From Levaquin] Adverse Reaction (Severe, Verified 12/18/23 14:45) Diarrhea Sulfa (Sulfonamide Antibiotics) Adverse Reaction (Severe, Verified 12/18/23 14:45) Diarrhea fentanyl [FENTANYL] Adverse Reaction (Intermediate, Verified 12/18/23 14:45) Hallucinations Medication List - Last Reconciled 12/18/23 by Elizabeth Nicole LPN alprazolam 0.5 mg PO DAILY amitriptyline 25 mg PO BEDTIME apixaban (Eliquis) 5 mg PO BID atorvastatin 80 mg PO BEDTIME blood pressure monitor As directed blood pressure test kit-large As directed clonazepam 1 mg PO BID 30 days dexamethasone 4 mg PO BID diltiazem HCl CD (Cardizem CD) 240 mg PO DAILY diphenoxylate-atropine 2.5-0.025 mg (Lomotil) 1 tab PO BID-QID PRN divalproex ER 500 mg PO DAILY divalproex ER 1,000 mg (2 x 500 mg) PO QPM 90 days docusate sodium 100 mg PO BID PRN duloxetine 60 mg PO BEDTIME fenofibrate 160 mg PO DAILY 90 days fenofibrate nanocrystallized 48 mg PO DAILY ferrous sulfate (FeroSul) 325 mg PO BID fluticasone furoate-vilanterol 100-25 mcg/dose (Breo Ellipta) 1 inh inhalation DAILY hydralazine 50 mg PO TID loperamide (Imodium A-D) 2 mg PO Q6H PRN Magic Mouthwash Diphen/Lido/Antacid 1:1:1 10 mL PO QID metoclopramide HCl 10 mg PO Q6H PRN metoprolol succinate ER 50 mg PO QAM nystatin 1 mL PO TID nystatin 1 appl topical DAILY PRN nystatin 1 appl topical BID 30 days olanzapine 5 mg PO DAILY omeprazole 20 mg PO BID ondansetron 8 mg PO Q8H peg 3350-electrolytes 236-22.74-6.74 -5.86 gram (Golytely) 240 mL PO Q10M potassium chloride ER (K-Tab) 20 mEq PO DAILY riboflavin (vitamin B2) 400 mg PO DAILY 30 days ubrogepant (Ubrelvy) 50 - 100 mg (0.5 - 1 x 100 mg) PO ONCE PRN 30 days umeclidinium 62.5 mcg/actuation (Incruse Ellipta) 1 inh inhalation DAILY walker (Ultra-Light Rollator misc) As directed [facility] Medical History Smoker Chronic back pain Colostomy in place (~2020) Personal history of nicotine dependence Polysubstance (including opioids) dependence, binge pattern Atrial fibrillation with rapid ventricular response Congestive heart failure Restrictive lung disease COPD (chronic obstructive pulmonary disease) No natural teeth COVID-19 vaccine series completed History of COVID-19 (~04/2020) Oxygen dependent Pericardial effusion Other and unspecified hyperlipidemia Essential hypertension Peripheral vascular disease Preoperative cardiovascular examination Bilateral pneumonia Adenocarcinoma of sigmoid colon (~2020) Hypernatremia GI bleed UTI (urinary tract infection) Pleural effusion, left Colon cancer (~2020) IVY (obstructive sleep apnea) Cancer of lower lobe of left lung (~2020) GERD (gastroesophageal reflux disease) Acute and chronic respiratory failure Lung cancer Obesity Hypoventilation associated with obesity Obesity hypoventilation syndrome Respiratory failure with hypoxia and hypercapnia Rotator cuff strain Hypoxia Pneumonia Restless legs syndrome (RLS) Sleep disorder Bipolar disorder (~2009) Back pain with history of spinal surgery Renal failure Fibromyalgia Depression High cholesterol PTSD (post-traumatic stress disorder) CAD (coronary artery disease) HTN (hypertension) Surgical History History of partial colectomy (~12/2020) History of cardiac cath (~2010) History of hysterectomy (~1990) History of cholecystectomy History of appendectomy (~1982) History of colonoscopy (~08/2020) History of lobectomy of lung (~08/2020) History of esophagogastroduodenoscopy (EGD) History of bunionectomy (~1977) History of back surgery Family History Maternal Aunt Breast cancer Stroke COPD (chronic obstructive pulmonary disease) Maternal Aunt Breast cancer COPD (chronic obstructive pulmonary disease) Mother Uterine cancer COPD (chronic obstructive pulmonary disease) HTN (hypertension) Heart disease Mental health disorder Maternal Uncle Stroke Paternal Grandmother Heart attack Parkinsons disease Sister Diabetes IBS (irritable bowel syndrome) Son HTN (hypertension) Substance use disorder Daughter HTN (hypertension) Father HTN (hypertension) Brother Heart disease Family/Other Mental health disorder Social History Household Members: Spouse Housing: House Are you a primary career specialist to a significant other at home: No Do you presently have visiting nurse or other home services: Yes Alcohol intake: never Comment: pt sleeping Patient Tobacco Use Status: Former Tobacco user Tobacco use type: Cigarette Cigarettes Per Day: 4 Years Smoked: 40 e-Cigarette/Vaping Use: Never Used Second Hand Smoke Exposure: Yes Advance Directives Date on File: 10/05/22 service: No Current occupational status: unemployed and disabled Cognitive needs: Yes (walker ) Hearing needs: No Vision needs: No Physical Exam Vital Signs: Last Vital Signs Pulse 87 12/18/23 14:45 Pulse Ox 95 12/18/23 14:45 Oxygen Delivery Method Room Air 12/18/23 14:45 BMI result Body Mass Index 32.5 Office Procedures 6 Minute Walk Time:: 11:00 SPO2 % at rest: 95 Pulse at rest: 87 SPO2 % during excercise: 87 Pulse during excercise: 115 SPO2 % after excercise: 97 Pulse after excercise: 93 Distance in yards walked: 120 Dimple Score: 3 Performance Observations:: Claire walked on level ground with a walker, she walked on room air for 3 mins, her SPO2 decreased to 87%, O2 started at pulsed setting 2. Her SPO2 recovered to 97% and remained stable on pulsed setting 2. [id number] - 6 Minute Walk Assessment & Plan Assessment & Plan (1) COPD (chronic obstructive pulmonary disease): Comment: APPOINTMENT FOR 6 MINUTES WALK TEST Code(s): J44.9 - Chronic obstructive pulmonary disease, unspecified Category: Medical Qualifiers: COPD type: COPD with acute exacerbation Qualified Code(s): J44.1 - Chronic obstructive pulmonary disease with (acute) exacerbation Plan: 6 MINUTES WALK Orders: Orders AMB 6 minute walk 12/18/23 J44.1 - Chronic obstructive pulmonary disease with (acute) exacerbation Coding Level of Care Code Established Pt Est Pt Level 1 (26809) Patient Type Established Diagnoses Chronic obstructive pulmonary disease with acute exacerbation J44.1 COPD type: COPD with acute exacerbation CPT Codes Coding ([id number]) Comment NURSE VISIT ONLY
[2023-12-18 14:50] VITALS: PULSE 87; O2SAT 95
== END 2023-12-18 15:27 | disposition home or self-care (01) ==
PROVIDERS: PCP Internal Medicine; Visit Provider Internal Medicine
DX: J44.1 Chronic obstructive pulmonary disease with (acute) exacerbation (principal)

== ENCOUNTER → 2023-12-18 11:04 | Outpatient (BNVA) | payer MEDICARE, MEDICAID, SELFPAY | PROVIDERS: PCP Internal Medicine; Visit Provider Internal Medicine | DX: J44.1 Chronic obstructive pulmonary disease with (acute) exacerbation (principal); I48.0 Paroxysmal atrial fibrillation; I25.10 Atherosclerotic heart disease of native coronary artery without angina pectoris; I73.9 Peripheral vascular disease, unspecified; I10 Essential (primary) hypertension; E78.5 Hyperlipidemia, unspecified; C18.7 Malignant neoplasm of sigmoid colon; C34.32 Malignant neoplasm of lower lobe, left bronchus or lung | CPT/HCPCS: 93005; 94618; 99211; 99212 ==

== ENCOUNTER 2023-12-18 12:53 | Outpatient (AMB) | payer MEDICARE, MEDICAID, SELFPAY ==
--- NOTE | 2023-12-18 12:58 | MHC.OFFVIS ---
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 Steam Required: No Accompanied by: Spouse Allergies Penicillins Allergy (Mild, Verified 10/12/23 14:27) Rash venlafaxine [From Effexor] Allergy (Mild, Verified 10/12/23 14:27) Rash cyclobenzaprine [Cyclobenzaprine] Allergy (Unknown, Verified 10/12/23 14:27) Unknown topiramate [From Topamax] Allergy (Unknown, Verified 10/12/23 14:27) Unknown levofloxacin [From Levaquin] Adverse Reaction (Severe, Verified 10/12/23 14:27) Diarrhea Sulfa (Sulfonamide Antibiotics) Adverse Reaction (Severe, Verified 10/12/23 14:27) Diarrhea fentanyl [FENTANYL] Adverse Reaction (Intermediate, Verified 10/12/23 14:27) Hallucinations Medication List - Last Reconciled 12/18/23 by Mickey Wayne MD alprazolam 0.5 mg PO DAILY amitriptyline 25 mg PO BEDTIME apixaban (Eliquis) 5 mg PO BID atorvastatin 80 mg PO BEDTIME blood pressure monitor As directed blood pressure test kit-large As directed clonazepam 1 mg PO BID 30 days dexamethasone 4 mg PO BID diltiazem HCl CD (Cardizem CD) 240 mg PO DAILY diphenoxylate-atropine 2.5-0.025 mg (Lomotil) 1 tab PO BID-QID PRN divalproex ER 500 mg PO DAILY divalproex ER 1,000 mg (2 x 500 mg) PO QPM 90 days docusate sodium 100 mg PO BID PRN duloxetine 60 mg PO BEDTIME fenofibrate 160 mg PO DAILY 90 days fenofibrate nanocrystallized 48 mg PO DAILY ferrous sulfate (FeroSul) 325 mg PO BID fluticasone furoate-vilanterol 100-25 mcg/dose (Breo Ellipta) 1 inh inhalation DAILY hydralazine 50 mg PO TID loperamide (Imodium A-D) 2 mg PO Q6H PRN Magic Mouthwash Diphen/Lido/Antacid 1:1:1 10 mL PO QID metoclopramide HCl 10 mg PO Q6H PRN metoprolol succinate ER 50 mg PO QAM nystatin 1 mL PO TID nystatin 1 appl topical DAILY PRN nystatin 1 appl topical BID 30 days olanzapine 5 mg PO DAILY omeprazole 20 mg PO BID ondansetron 8 mg PO Q8H peg 3350-electrolytes 236-22.74-6.74 -5.86 gram (Golytely) 240 mL PO Q10M potassium chloride ER (K-Tab) 20 mEq PO DAILY riboflavin (vitamin B2) 400 mg PO DAILY 30 days ubrogepant (Ubrelvy) 50 - 100 mg (0.5 - 1 x 100 mg) PO ONCE PRN 30 days umeclidinium 62.5 mcg/actuation (Incruse Ellipta) 1 inh inhalation DAILY walker (Ultra-Light Rollator misc) As directed HPI Comments Details: Claire returns for follow-up. To recall, in the past, she was seen regarding preoperative risk stratification for colon cancer resection. She has had cardiac catheterization about 10 years ago or so that was unremarkable and did not show any significant disease. She has also had atrial fibrillation during prior hospitalizations for respiratory issues. Long history of smoking , but not recently. She also has a history of hypertension and elevated cholesterol. per recent oncology notes, she has recurrent sigmoid colon cancer. On chemotherapy. From the cardiac standpoint, no recent concerns. No angina or in fact any symptoms whatsoever. [facility] Medical History Smoker Chronic back pain Colostomy in place (~2020) Personal history of nicotine dependence Polysubstance (including opioids) dependence, binge pattern Atrial fibrillation with rapid ventricular response Congestive heart failure Restrictive lung disease COPD (chronic obstructive pulmonary disease) No natural teeth COVID-19 vaccine series completed History of COVID-19 (~04/2020) Oxygen dependent Pericardial effusion Other and unspecified hyperlipidemia Essential hypertension Peripheral vascular disease Preoperative cardiovascular examination Bilateral pneumonia Adenocarcinoma of sigmoid colon (~2020) Hypernatremia GI bleed UTI (urinary tract infection) Pleural effusion, left Colon cancer (~2020) IVY (obstructive sleep apnea) Cancer of lower lobe of left lung (~2020) GERD (gastroesophageal reflux disease) Acute and chronic respiratory failure Lung cancer Obesity Hypoventilation associated with obesity Obesity hypoventilation syndrome Respiratory failure with hypoxia and hypercapnia Rotator cuff strain Hypoxia Pneumonia Restless legs syndrome (RLS) Sleep disorder Bipolar disorder (~2009) Back pain with history of spinal surgery Renal failure Fibromyalgia Depression High cholesterol PTSD (post-traumatic stress disorder) CAD (coronary artery disease) HTN (hypertension) Surgical History History of partial colectomy (~12/2020) History of cardiac cath (~2010) History of hysterectomy (~1990) History of cholecystectomy History of appendectomy (~1982) History of colonoscopy (~08/2020) History of lobectomy of lung (~08/2020) History of esophagogastroduodenoscopy (EGD) History of bunionectomy (~1977) History of back surgery Family History Maternal Aunt Breast cancer Stroke COPD (chronic obstructive pulmonary disease) Maternal Aunt Breast cancer COPD (chronic obstructive pulmonary disease) Mother Uterine cancer COPD (chronic obstructive pulmonary disease) HTN (hypertension) Heart disease Mental health disorder Maternal Uncle Stroke Paternal Grandmother Heart attack Parkinsons disease Sister Diabetes IBS (irritable bowel syndrome) Son HTN (hypertension) Substance use disorder Daughter HTN (hypertension) Father HTN (hypertension) Brother Heart disease Family/Other Mental health disorder Social History Household Members: Spouse Housing: House Are you a primary clinical care coordinator to a significant other at home: No Do you presently have visiting nurse or other home services: Yes Alcohol intake: never Comment: pt sleeping Patient Tobacco Use Status: Former Tobacco user Tobacco use type: Cigarette Cigarettes Per Day: 4 Years Smoked: 40 e-Cigarette/Vaping Use: Never Used Second Hand Smoke Exposure: Yes Advance Directives Date on File: 10/05/22 service: No Current occupational status: unemployed and disabled Cognitive needs: Yes (walker ) Hearing needs: No Vision needs: No Review of Systems Const Denies chills, Denies fatigue, Denies fever(s), Denies weight gain and Denies weight loss ENT Denies dizziness Card Denies chest pain, Denies leg edema, Denies lightheadedness, Denies palpitations, Denies dyspnea on exertion, Denies orthopnea and Denies other Resp Denies cough and Denies dyspnea on exertion GI Denies hematochezia and Denies change in stool character Musc Denies abnormal gait, Denies muscle weakness, Denies numbness, Denies radiating pain into limb and Denies tingling Neuro Denies abnormal gait, Denies dizziness, Denies numbness and Denies tingling Endo Denies fatigue and Denies palpitations Physical Exam Vital Signs: Last Vital Signs Pulse 80 12/18/23 13:01 BP 136/74 12/18/23 13:01 BMI result Body Mass Index 32.5 Const General: comfortable and no acute distress Orientation/consciousness: patient oriented x3 HEENT Other: Unremarkable Head: Yes normal to inspection Neck Neck: Yes normal visual inspection Chest Chest palpation & inspection: normal inspection of the chest Resp Auscultation: clear to auscultation bilaterally Cardio Palpation: normal PMI Heart sounds: S1 normal heart sound present, S2 normal heart sound present, no gallops, Murmur heart sound present systolic II/ and at the right sternal border and no rubs GI Palpation (GI): Soft to palpation Back/Spine/Pelvis Other: unremarkable Skin General skin exam: no rashes or lesions noted Neuro General: patient oriented x3 Extrem General: Yes normal to inspection Psych Mental Status: mental status grossly normal Office Procedures EKG Details: EKG with sinus rhythm at 80/Min; no significant ST-T changes and otherwise unremarkable. [place]. [id number], Complete Assessment & Plan Assessment & Plan (1) PAF (paroxysmal atrial fibrillation): Onset Date: ~2020 Code(s): I48.0 - Paroxysmal atrial fibrillation Category: Medical (2) Atherosclerotic cardiovascular disease: Code(s): I25.10 - Atherosclerotic heart disease of [place] coronary artery without angina pectoris Category: Medical (3) Peripheral vascular disease: Code(s): I73.9 - Peripheral vascular disease, unspecified Category: Medical (4) Essential hypertension: Code(s): I10 - Essential (primary) hypertension Category: Medical (5) Other and unspecified hyperlipidemia: Code(s): E78.5 - Hyperlipidemia, unspecified Category: Medical (6) COPD (chronic obstructive pulmonary disease): Code(s): J44.9 - Chronic obstructive pulmonary disease, unspecified Category: Medical Qualifiers: COPD type: unspecified COPD Qualified Code(s): J44.9 - Chronic obstructive pulmonary disease, unspecified (7) Adenocarcinoma of sigmoid colon: Onset Date: ~2020 Comment: s/p resection , and has permanant Colostomy Code(s): C18.7 - Malignant neoplasm of sigmoid colon Category: Medical (8) Cancer of lower lobe of left lung: Onset Date: ~2020 Comment: (Adenocarcinoma, pT1c, pN0, MX - s/p LLL lobectomy 09/01/20) Current CT scan does show presence of a few small pulmonary nodules in the left lower lobe area . Code(s): C34.32 - Malignant neoplasm of lower lobe, left bronchus or lung Category: Medical Plan Cardiac studies reviewed. Echocardiogram 2020 with normal LVEF, 60-65%, mild diastolic dysfunction and otherwise unremarkable. Myocardial perfusion imaging study 2020 shows normal perfusion and no ischemia or infarction. Abdomen CT is a showing evidence of peripheral vascular disease in the aorta and iliac vessels. Coronary artery calcifications noted in chest CT scans. Overall, she has stable coronary disease as well as peripheral vascular disease, paroxysmal atrial fibrillation. Multiple risk factors for vascular disease. she states that she has not smoked anymore. Blood pressure seems stable. With regard to lipids, high triglycerides. It seems that from PCP note fenofibrate is being increased. She is also on statins. Last direct LDL is 81 mg/dL, very reasonable. With regard to atrial fibrillation issues, nothing recent and she remains on Diltiazem and Eliquis. Due to ongoing issues with malignancy, likely conservative care only. Any case, she is also free of cardiac symptoms at this time. Advised them to contact us with ongoing concerns. Discussed with significant other. Coding Level of Care Code Est Pt Level 4 (17495) Diagnoses PAF (paroxysmal atrial fibrillation) I48.0 Atherosclerotic cardiovascular disease I25.10 Peripheral vascular disease I73.9 Essential hypertension I10 Other and unspecified hyperlipidemia E78.5 Chronic obstructive pulmonary disease, unspecified COPD type J44.9 COPD type: unspecified COPD Adenocarcinoma of sigmoid colon C18.7 Cancer of lower lobe of left lung C34.32 CPT Codes EKG - CPT: 58285-[id number], Complete ([id number])
[2023-12-18 13:01] VITALS: BP 136/74; PULSE 80; BMI 32.5
== END 2023-12-18 13:27 | disposition home or self-care (01) ==
PROVIDERS: PCP Nurse Practitioner Family; Visit Provider Internal Medicine
DX: I48.0 Paroxysmal atrial fibrillation (principal); I25.10 Atherosclerotic heart disease of native coronary artery without angina pectoris; I73.9 Peripheral vascular disease, unspecified; I10 Essential (primary) hypertension; E78.5 Hyperlipidemia, unspecified; J44.9 Chronic obstructive pulmonary disease, unspecified; C18.7 Malignant neoplasm of sigmoid colon; C34.32 Malignant neoplasm of lower lobe, left bronchus or lung
CPT/HCPCS: 93010; 99214

== ENCOUNTER 2024-01-25 22:26 | Emergency (ER) | payer MEDICARE, MEDICAID, SELFPAY ==
[2024-01-25 22:40] VITALS: BP 140/77; PULSE 79; RESP 18; TEMP 36.7; O2SAT 98; BMI 31.6
--- NOTE | 2024-01-26 00:47 | ED_ITS ---
HPI - General Adult General Chief complaint: General Medical Stated complaint: colostomy bag is broken needs replacement Time Seen by Provider: 01/26/24 00:43 Source: patient Mode of arrival: EMS Limitations: no limitations History of Present Illness ED Provider: rivera LOWE narrative: Patient with colon cancer status post partial colectomy with colostomy bag receiving chemotherapy , last dose today been having watery diarrhea colostomy bag broke came here for replacement Related Data Home Medications ?Medication ?Instructions ?Recorded ?Confirmed blood pressure monitor #1 ea 10/22/20 12/18/23 blood pressure test kit-large #1 ea 10/22/20 12/18/23 docusate sodium 100 mg capsule 100 mg PO BID PRN constipation 09/21/21 12/18/23 Previous Rx's ?Medication ?Instructions ?Recorded peg 3350-electrolytes 236 240 ml PO Q10M colonoscopy #4,000 06/08/22 gram-22.74 gram-6.74 gram-5.86 mL gram solution (Golytely) nystatin 100,000 unit/gram topical 1 appl topical DAILY PRN rash #30 09/18/22 cream grams divalproex 500 mg tablet,extended 500 mg PO DAILY #90 tabs 02/01/23 release 24 hr olanzapine 5 mg disintegrating 5 mg PO DAILY #30 tabs 03/22/23 tablet diphenoxylate-atropine 2.5 1 tab PO BID-QID PRN Diarrhea #60 04/17/23 mg-0.025 mg tablet (Lomotil) tabs ubrogepant 100 mg tablet (Ubrelvy) 50 - 100 mg (0.5 - 1 x 100 mg) PO 07/05/23 ONCE PRN migraine headache 30 days #16 tabs nystatin 100,000 unit/mL oral 1 ml PO TID #100 mL 07/19/23 suspension fenofibrate nanocrystallized 48 mg 48 mg PO DAILY #30 tabs 09/15/23 tablet riboflavin (vitamin B2) 400 mg 400 mg PO DAILY 30 days #30 tabs 09/20/23 tablet umeclidinium 62.5 mcg/actuation 1 inh inhalation DAILY #30 ea 09/20/23 blister powder for inhalation (Incruse Ellipta) mercedez (Ultra-Light Rollator misc) #1 ea 09/29/23 alprazolam 0.5 mg tablet 0.5 mg PO DAILY #2 tabs 10/11/23 divalproex 500 mg tablet,extended 1,000 mg (2 x 500 mg) PO QPM 90 10/15/23 release 24 hr days #180 tabs ondansetron 8 mg disintegrating 8 mg PO Q8H #30 tabs 11/03/23 tablet metoclopramide HCl 10 mg tablet 10 mg PO Q6H PRN Nausea #30 tabs 11/17/23 Magic Mouthwash 10 ml PO QID #240 mL 11/27/23 Diphen/Lido/Antacid 1:1:1 240 mL suspension fenofibrate 160 mg tablet 160 mg PO DAILY 90 days #90 tabs 12/01/23 loperamide 2 mg capsule (Imodium 2 mg PO Q6H PRN Diarrhea #60 caps 12/05/23 A-D) nystatin 100,000 unit/gram topical 1 appl topical BID 30 days #30 12/11/23 powder grams dexamethasone 4 mg tablet 4 mg PO BID #60 tabs 12/13/23 omeprazole 20 mg capsule,delayed 20 mg PO BID #60 caps 12/21/23 release metoprolol succinate 50 mg 50 mg PO QAM #90 tabs 01/06/24 tablet,extended release 24 hr potassium chloride 20 mEq 20 meq PO DAILY #30 tabs 01/11/24 tablet,extended release (K-Tab) clonazepam 1 mg tablet 1 mg PO BID 30 days #60 tabs 01/15/24 duloxetine 60 mg capsule,delayed 60 mg PO BEDTIME #30 caps 01/15/24 release hydralazine 50 mg tablet 50 mg PO TID #90 tabs 01/15/24 amitriptyline 25 mg tablet 25 mg PO BEDTIME #30 tabs 01/16/24 apixaban 5 mg tablet (Eliquis) 5 mg PO BID #60 tabs 01/16/24 atorvastatin 80 mg tablet 80 mg PO BEDTIME #30 tabs 01/16/24 ferrous sulfate 325 mg (65 mg 325 mg PO BID #60 tabs 01/16/24 iron) tablet (FeroSul) fluticasone furoate 100 1 inh inhalation DAILY #60 ea 01/16/24 mcg-vilanterol 25 mcg/dose inhalation powder (Breo Ellipta) diltiazem HCl 240 mg 240 mg PO DAILY #60 caps 01/21/24 capsule,extended release 24 hr (Cardizem CD) Allergies Allergy/AdvReac Type Severity Reaction Status Date / Time Penicillins Allergy Mild Rash Verified 01/25/24 22:42 venlafaxine [From Effexor] Allergy Mild Rash Verified 01/25/24 22:42 cyclobenzaprine Allergy Unknown Unknown Verified 01/25/24 22:42 [Cyclobenzaprine] topiramate [From Topamax] Allergy Unknown Unknown Verified 01/25/24 22:42 levofloxacin [From Levaquin] AdvReac Severe Diarrhea Verified 01/25/24 22:42 Sulfa (Sulfonamide AdvReac Severe Diarrhea Verified 01/25/24 22:42 Antibiotics) fentanyl [FENTANYL] AdvReac Intermediate Hallucinati Verified 01/25/24 22:42 ons Review of Systems Review of Systems: Yes all other systems are reviewed and are negative [facility] Past Medical History Medical History Smoker Chronic back pain Colostomy in place (~2020) Personal history of nicotine dependence Polysubstance (including opioids) dependence, binge pattern Atrial fibrillation with rapid ventricular response Congestive heart failure Restrictive lung disease COPD (chronic obstructive pulmonary disease) No natural teeth COVID-19 vaccine series completed History of COVID-19 (~04/2020) Oxygen dependent Pericardial effusion Other and unspecified hyperlipidemia Essential hypertension Peripheral vascular disease Preoperative cardiovascular examination Bilateral pneumonia Adenocarcinoma of sigmoid colon (~2020) Hypernatremia GI bleed UTI (urinary tract infection) Pleural effusion, left Colon cancer (~2020) IVY (obstructive sleep apnea) Cancer of lower lobe of left lung (~2020) GERD (gastroesophageal reflux disease) Acute and chronic respiratory failure Lung cancer Obesity Hypoventilation associated with obesity Obesity hypoventilation syndrome Respiratory failure with hypoxia and hypercapnia Rotator cuff strain Hypoxia Pneumonia Restless legs syndrome (RLS) Sleep disorder Bipolar disorder (~2009) Back pain with history of spinal surgery Renal failure Fibromyalgia Depression High cholesterol PTSD (post-traumatic stress disorder) CAD (coronary artery disease) HTN (hypertension) Surgical History History of partial colectomy (~12/2020) History of cardiac cath (~2010) History of hysterectomy (~1990) History of cholecystectomy History of appendectomy (~1982) History of colonoscopy (~08/2020) History of lobectomy of lung (~08/2020) History of esophagogastroduodenoscopy (EGD) History of bunionectomy (~1977) History of back surgery Family History Family History Maternal Aunt Breast cancer Stroke COPD (chronic obstructive pulmonary disease) Maternal Aunt Breast cancer COPD (chronic obstructive pulmonary disease) Mother Uterine cancer COPD (chronic obstructive pulmonary disease) HTN (hypertension) Heart disease Mental health disorder Maternal Uncle Stroke Paternal Grandmother Heart attack Parkinsons disease Sister Diabetes IBS (irritable bowel syndrome) Son HTN (hypertension) Substance use disorder Daughter HTN (hypertension) Father HTN (hypertension) Brother Heart disease Family/Other Mental health disorder Social History Social History Household Members: Spouse Housing: House Are you a primary health care marketing manager to a significant other at home: No Do you presently have visiting nurse or other home services: Yes Alcohol intake: never Comment: pt sleeping Patient Tobacco Use Status: Former Tobacco user Tobacco use type: Cigarette Cigarettes Per Day: 4 Years Smoked: 40 Smoked in Last 30 Days: No e-Cigarette/Vaping Use: Never Used Second Hand Smoke Exposure: Yes Use of substances other than those prescribed or required for medical reasons: No Advance Directives: Yes Advance Directives on File: Yes Advance Directives Date on File: 10/05/22 Do you have a plan to hurt others: No Plan Patient : No service: No Current occupational status: unemployed and disabled Cognitive needs: Yes (walker ) Hearing needs: No Vision needs: No Physical Exam ED Vital Signs: Vital Signs - 24 hr 01/25/24 22:40 01/26/24 00:55 01/26/24 03:53 Temperature 98.0 F 97.8 F 98.0 F Pulse Rate 79 76 68 Respiratory Rate 18 17 16 Blood Pressure 140/77 H 135/57 L 142/76 H Pulse Oximetry 98 97 98 Oxygen Delivery Method Room Air Room Air Room Air BMI result Body Mass Index 31.6 Appearance: Alert. Oriented X3. No acute distress. Eyes: Pallor+ ENT: Pharynx normal. Oral Mucosa moist Neck: Normal inspection. Neck supple. CVS: Normal heart rate and rhythm. Pulses normal. Respiratory: No respiratory distress. Equal air entry bilateral, no wheezing/rales/rhonchi Abdomen: Soft and nontender. Colostomy bag in place, Bowel sounds are present, no mass palpable, no CVA tenderness Skin: Skin warm and dry. Normal skin color. Normal skin turgor. Extremities: No lower extremity edema. No calf tenderness Neuro: Oriented X 3. No motor deficit. Medical Decision Making Medical Decision Making MDM Narrative: Colostomy bag replaced adv to follow up with GI Discharge Plan Discharge Clinical Impression: Colostomy care Patient Disposition: Home, Self-Care Instructions: Colostomy Care (ED) Additional Instructions: Care as advised Prescriptions: No Action nystatin 100,000 unit/gram cream 1 appl topical DAILY PRN (Reason: rash) Qty: 30 0RF divalproex 500 mg tablet extended release 24 hr 500 mg PO DAILY Qty: 90 1RF Ubrelvy 100 mg tablet 50 - 100 mg PO ONCE PRN (Reason: migraine headache) 30 Days Qty: 16 3RF Rx Instructions: take at onset of migraine, may repeat in 2hrs (may take w/ Ibuprofen) fenofibrate nanocrystallized 48 mg tablet 48 mg PO DAILY Qty: 30 2RF Incruse Ellipta 62.5 mcg/actuation blister with device 1 inh inhalation DAILY Qty: 30 11RF riboflavin (vitamin B2) 400 mg tablet 400 mg PO DAILY 30 Days Qty: 30 6RF (DME) Ultra-Light Rollator Misc See Rx Instructions .Route Qty: 1 0RF Rx Instructions: As directed divalproex 500 mg tablet extended release 24 hr 1,000 mg PO QPM 90 Days Qty: 180 2RF fenofibrate 160 mg tablet 160 mg PO DAILY 90 Days Qty: 90 0RF loperamide [Imodium A-D] 2 mg Capsule 2 mg PO Q6H PRN (Reason: Diarrhea) Qty: 60 3RF nystatin 100,000 unit/gram powder 1 appl topical BID 30 Days Qty: 30 0RF omeprazole 20 mg capsule,delayed release(DR/EC) 20 mg PO BID Qty: 60 2RF metoprolol succinate 50 mg tablet extended release 24 hr 50 mg PO QAM Qty: 90 1RF clonazepam 1 mg tablet 1 mg PO BID 30 Days Qty: 60 0RF duloxetine 60 mg capsule,delayed release(DR/EC) 60 mg PO BEDTIME Qty: 30 1RF hydralazine 50 mg tablet 50 mg PO TID Qty: 90 1RF Eliquis 5 mg tablet 5 mg PO BID Qty: 60 1RF atorvastatin 80 mg tablet 80 mg PO BEDTIME Qty: 30 1RF fluticasone furoate-vilanterol [Breo Ellipta] 100-25 mcg/dose blister with device 1 inh INHALATION DAILY Qty: 60 3RF ferrous sulfate [FeroSul] 325 mg (65 mg iron) tablet 325 mg PO BID Qty: 60 3RF amitriptyline 25 mg tablet 25 mg PO BEDTIME Qty: 30 1RF diltiazem HCl [Cardizem CD] 240 mg capsule,extended release 24hr 240 mg PO DAILY Qty: 60 1RF olanzapine 5 mg Tablet,Disintegrating 5 mg PO DAILY Qty: 30 0RF diphenoxylate-atropine [Lomotil] 2.5-0.025 mg Tablet 1 tab PO BID-QID PRN (Reason: Diarrhea) Qty: 60 3RF nystatin 100,000 unit/mL Suspension 1 ml PO TID Qty: 100 0RF Rx Instructions: swish and swallow alprazolam 0.5 mg Tablet 0.5 mg PO DAILY Qty: 2 0RF Rx Instructions: Take 1 tablet 1 hour before procedure, may repeat 1/2 hour before if necessary ondansetron 8 mg Tablet,Disintegrating 8 mg PO Q8H Qty: 30 4RF metoclopramide HCl 10 mg Tablet 10 mg PO Q6H PRN (Reason: Nausea) Qty: 30 1RF Magic Mouthwash Diphen/Lido/Antacid 1:1:1 240 mL Suspension 10 ml PO QID Qty: 240 3RF Rx Instructions: Lidocaine Viscous 2 % 80mL; diphenhydramine 12.5 mg/5 mL 80mL; aluminum-mag hydrox-simeth 174es-182zw-81gh/5mL 80mL dexamethasone 4 mg Tablet 4 mg PO BID Qty: 60 3RF Rx Instructions: Take 4 mg p.o. b.i.d. for 2 days starting day after chemo, Q 2 weekly. potassium chloride [K-Tab] 20 mEq Tablet Extended Release 20 meq PO DAILY Qty: 30 0RF (DME) blood pressure test kit-large Kit See Rx Instructions .ROUTE DIRECTED Qty: 1 Rx Instructions: As directed (DME) blood pressure monitor Kit See Rx Instructions .ROUTE .MEDSUPPLY Qty: 1 Rx Instructions: As directed peg 3350-electrolytes [Golytely] 236-22.74-6.74 -5.86 gram recon soln 240 ml PO Q10M Qty: 4000 0RF Rx Instructions: as per split prep instructions, until fecal effluent is clear docusate sodium 100 mg capsule 100 mg PO BID PRN (Reason: constipation) Interventions: ED Discharge Assessment Last Done: 01/26/24 03:53 Discharge Date/Time: 01/26/24 03:54 Print Language: British
[2024-01-26 00:55] VITALS: BP 135/57; PULSE 76; RESP 17; TEMP 36.6; O2SAT 97
[2024-01-26 03:53] VITALS: BP 142/76; PULSE 68; RESP 16; TEMP 36.7; O2SAT 98
== END 2024-01-26 03:54 | disposition home or self-care (01) ==
PROVIDERS: Emergency Provider Internal Medicine
DX: Z43.3 Encounter for attention to colostomy (principal); C18.9 Malignant neoplasm of colon, unspecified; Z92.21 Personal history of antineoplastic chemotherapy; Z87.891 Personal history of nicotine dependence
CPT/HCPCS: 99284

== ENCOUNTER 2024-03-26 13:14 | Outpatient (REF) | payer MEDICARE, MEDICAID, SELFPAY ==
--- NOTE | ~2024-03-26 | CT_ITS ---
EXAMINATION: CT ABDOMEN AND PELVIS WITH CONTRAST CLINICAL INFORMATION: Metastatic colon cancer on treatment. COMPARISON: CT dated June 27, 2023 TECHNIQUE: Multidetector volumetric images were obtained from the superior aspect of the liver through the pubic symphysis following administration 85 mL of Omnipaque 350 intravenous contrast. Sagittal and coronal reformatted images were obtained on the technologist's workstation. Oral contrast: No This CT examination was performed using dose optimization techniques as appropriate, variously including the following: *Automated exposure control *Adjustment of mA and/or kV according to patient size (this includes techniques or standardized protocols for targeted exams where dose is matched to indication/reason for exam; i.e. extremities or head) *Use of iterative reconstruction technique DLP: 753 mGy-cm FINDINGS: Examination has been submitted for interpretation on March 29, 2024 at 12:36 PM. LUNG BASES: No acute airspace disease or gross pulmonary nodules in the included lung bases. Calcified plaques, coronary arteries. Small hiatal hernia. LIVER, GALLBLADDER, AND BILIARY TREE: Liver measures 18 cm. There are a few scattered less than 9 mm hypodensities, right hepatic lobe too small to be fully characterized. Portal vein and hepatic veins are patent. Intrahepatic portion of the IVC is patent. Status post cholecystectomy. Intra and extrahepatic biliary ductal dilatation with a common bile duct measuring 11 mm and abrupt cut off at the junction with the second portion of the duodenum. PANCREAS: Volume loss decreased densities/fatty infiltration of the head and uncinate process. Dystrophic calcifications within the main pancreatic duct, body and tail resulting in 5 mm ductal dilatation. No peripancreatic fluid collections. SPLEEN: Measures 10 cm. 9 mm focal hypodensity, superior aspect of the parenchyma. ADRENAL GLANDS: No nodular lesions. KIDNEYS AND URETERS: No gross renal mass or hydronephrosis. Vascular calcifications left renal hilum. BLADDER: Fluid-filled. GASTROINTESTINAL TRACT: Sutures-anastomotic segment without gross enhancing mass. There is an ostomy, left part midline abdominal wall resulting in herniated peritoneal fat and not enlarged segment of the colon. There is an ostomy of the descending colon. Gas and fluid-filled mildly prominent small bowel loops, nonspecific. No intestinal obstruction pattern. No ascites. No pneumoperitoneum. .. ABDOMINAL WALL: Diastases abdominal rectus muscles in the periumbilical region. There is thickening of the laparotomy incision site LYMPH NODES: No lymphadenopathy, retroperitoneal or mesenteric. VASCULAR: Calcifications/calcified plaques throughout the abdominal aorta wall and iliac arteries without aneurysm or dissection. Multifocal segmental areas of narrowing/stenosis in the distal abdominal aorta and iliac arteries. Mixed plaques in the origin of the mesenteric arteries and the main renal arteries. OSSEOUS STRUCTURES: Metallic beam hardening artifact secondary to posterior L5-S1 fusion and intervertebral body disc spacer placement at L4-5 and L5-S1. Multilevel thoracolumbar spondylosis. No gross lytic or blastic lesions. Fatty atrophy of the lower lumbar muscles. CT/CT abdomen pelvis w IV con IMPRESSION: No gross tumor recurrence. Focal hypodense lesion, spleen. Stable. Intra and extra hepatic biliary ductal dilatation. Sphincter of Oddi stenosis cannot be entirely excluded. Dystrophic calcifications, pancreatic duct resulting in ductal dilatation. Intraductal papillary neoplasm cannot be excluded. Para-ostomy herniation. Coronary artery disease and atherosclerosis disease. . Electronically signed by: Turner Giang MD 03/29/2024 12:49 PM EDT
[2024-03-26] MEDS: iohexoL 350 MG/ML 100 ML INFUS..BTL IV (14:02)
== END 2024-03-26 13:15 | disposition home or self-care (01) ==
LOC: HO.CT 13:14
PROVIDERS: PCP Internal Medicine; Visit Provider Internal Medicine
DX: C18.9 Malignant neoplasm of colon, unspecified (principal)
CPT/HCPCS: 74177; Q9967

== ENCOUNTER → 2024-03-26 13:16 | Outpatient (BNV) | payer MEDICARE, MEDICAID, SELFPAY | PROVIDERS: PCP Internal Medicine; Visit Provider Radiology Diagnostic Radiology | DX: C18.9 Malignant neoplasm of colon, unspecified (principal) | CPT/HCPCS: 74177 ==

== ENCOUNTER 2024-04-02 09:55 | Outpatient (AMB) | payer MEDICARE, MEDICAID, SELFPAY ==
--- NOTE | 2024-04-02 09:57 | AM.OFFWIN_ITS ---
Intake Vital Signs 04/02/24 09:59 Height 5 ft 4 in Weight 193 lb BMI 33.1 BP 100/62 Blood Pressure Location Rt brachial Position Sitting Pulse 82 Pulse Source Pulse Oximeter Temp 98.0 F Temp Source Temporal Artery Scan Pulse Oximetry (%) 97 Intake Visit Reasons: EP severe back pain due to a fall Intake Note: pt is here for severe back pain due to fall Patient Tobacco Use Status: Former Tobacco user Allergies Penicillins Allergy (Mild, Verified 04/02/24 09:59) Rash venlafaxine [From Effexor] Allergy (Mild, Verified 04/02/24 09:59) Rash cyclobenzaprine [Cyclobenzaprine] Allergy (Unknown, Verified 04/02/24 09:59) Unknown topiramate [From Topamax] Allergy (Unknown, Verified 04/02/24 09:59) Unknown levofloxacin [From Levaquin] Adverse Reaction (Severe, Verified 04/02/24 09:59) Diarrhea Sulfa (Sulfonamide Antibiotics) Adverse Reaction (Severe, Verified 04/02/24 09:59) Diarrhea fentanyl [FENTANYL] Adverse Reaction (Intermediate, Verified 04/02/24 09:59) Hallucinations Do you need a note to return to daycare/school/sports/work: No HPI HPI Comments History of Present Illness Details This is a 62-year-old female with moderate major depression, bipolar disorder, COPD, paroxysmal atrial fibrillation, adenocarcinoma of sigmoid colon diagnosed in 2020 and currently on chemotherapy with colostomy in place and hypertension that comes today c/o back pain due to a fall in her home 4 days ago. She tells me that she was walking with her walker and a blanket got underneath her foot and she fell with her walker onto hardwood floors onto her backside. She tells me she has had left-sided low back pain that radiates down into her left leg since then. She describes the pain as a sharp shooting pain. She has tried resting in her recliner as well as icing it, with no improvement. She denies any dizziness or lightheadedness prior to her fall. She denies any loss of control of her bladder or bowels. She tells me she is currently on a break from her chemotherapy and will go for her next infusion in about a week, her last infusion was about 3 weeks ago. [facility]LY [facility] Medical History Smoker Chronic back pain Colostomy in place (~2020) Personal history of nicotine dependence Polysubstance (including opioids) dependence, binge pattern Atrial fibrillation with rapid ventricular response Congestive heart failure Restrictive lung disease COPD (chronic obstructive pulmonary disease) No natural teeth COVID-19 vaccine series completed History of COVID-19 (~04/2020) Oxygen dependent Pericardial effusion Other and unspecified hyperlipidemia Essential hypertension Peripheral vascular disease Preoperative cardiovascular examination Bilateral pneumonia Adenocarcinoma of sigmoid colon (~2020) Hypernatremia GI bleed UTI (urinary tract infection) Pleural effusion, left Colon cancer (~2020) IVY (obstructive sleep apnea) Cancer of lower lobe of left lung (~2020) GERD (gastroesophageal reflux disease) Acute and chronic respiratory failure Lung cancer Obesity Hypoventilation associated with obesity Obesity hypoventilation syndrome Respiratory failure with hypoxia and hypercapnia Rotator cuff strain Hypoxia Pneumonia Restless legs syndrome (RLS) Sleep disorder Bipolar disorder (~2009) Back pain with history of spinal surgery Renal failure Fibromyalgia Depression High cholesterol PTSD (post-traumatic stress disorder) CAD (coronary artery disease) HTN (hypertension) Surgical History History of partial colectomy (~12/2020) History of cardiac cath (~2010) History of hysterectomy (~1990) History of cholecystectomy History of appendectomy (~1982) History of colonoscopy (~08/2020) History of lobectomy of lung (~08/2020) History of esophagogastroduodenoscopy (EGD) History of bunionectomy (~1977) History of back surgery Family History Maternal Aunt Breast cancer Stroke COPD (chronic obstructive pulmonary disease) Maternal Aunt Breast cancer COPD (chronic obstructive pulmonary disease) Mother Uterine cancer COPD (chronic obstructive pulmonary disease) HTN (hypertension) Heart disease Mental health disorder Maternal Uncle Stroke Paternal Grandmother Heart attack Parkinsons disease Sister Diabetes IBS (irritable bowel syndrome) Son HTN (hypertension) Substance use disorder Daughter HTN (hypertension) Father HTN (hypertension) Brother Heart disease Family/Other Mental health disorder Social History Household Members: Spouse Housing: House Are you a primary director of career resources to a significant other at home: No Do you presently have visiting nurse or other home services: Yes Alcohol intake: never Comment: pt sleeping Patient Tobacco Use Status: Former Tobacco user Tobacco use type: Cigarette Cigarettes Per Day: 4 Years Smoked: 40 e-Cigarette/Vaping Use: Never Used Second Hand Smoke Exposure: Yes Advance Directives Date on File: 10/05/22 service: No Current occupational status: unemployed and disabled Cognitive needs: Yes (walker ) Hearing needs: No Vision needs: No Review of Systems Const All systems reviewed & are unremarkable except as noted in HPI and below Physical Exam Vital Signs: Last Vital Signs Temp 98.0 F 04/02/24 09:59 Pulse 82 04/02/24 09:59 BP 100/62 04/02/24 09:59 Pulse Ox 97 04/02/24 09:59 BMI result Body Mass Index 33.1 Const General: cooperative, healthy appearing and comfortable Orientation/consciousness: patient oriented x3 Limitations: ambulation with walker HEENT Head: Yes normal to inspection and Yes normocephalic General nose exam: Normal external nose present Face and sinus: Yes normal facial exam Eyes General: appearance normal, both eyes and all related structures Resp Effort & Inspection: normal respiratory effort and able to speak in complete sentences Back/Spine/Pelvis Cervical Spine: cervical ROM normal, No pain with cervical ROM and No Cervical spine tenderness Thoracic/Lumbar Spine: thoracic and lumbar spine normal to inspection, pain with thoraco-lumbar ROM, paraspinal muscle tenderness on the left, thoraco-lumbar spasm on the left, No thoracic spinal tenderness and No lumbar spinal tenderness Neuro General: patient oriented x3 Extrem Other: Straight leg raise test positive on left; Straight leg raise test negative on right; Assessment & Plan Assessment & Plan (1) Low back pain with left-sided sciatica: Code(s): M54.42 - Lumbago with sciatica, left side Qualifiers: Chronicity: acute Back pain laterality: left Qualified Code(s): M54.42 - Lumbago with sciatica, left side Plan: Gave 1st dose of prednisone in office, we will follow with a 4 day burst of 40 mg per day. Cautioned patient to use the muscle relaxer only at bedtime and not to get up in the middle of the night to try to ambulate is it will make her more fatigued and I do not want her to fall. If she has no improvement in her symptoms, she should follow up with her PCP. Plan See above Medications: New tizanidine 2 mg PO BEDTIME PRN 7 tabs 0RF muscle spasticity prednisone 40 mg (2 x 20 mg) PO DAILY 8 tabs 0RF Coding Level of Care Code Est Pt Level 3 (34941) Diagnoses Acute left-sided low back pain with left-sided sciatica M54.42 Chronicity: acute Back pain laterality: left
[2024-04-02 09:59] VITALS: BP 100/62; PULSE 82; TEMP 36.7; O2SAT 97; BMI 33.1
== END 2024-04-02 10:57 | disposition home or self-care (01) ==
PROVIDERS: PCP Internal Medicine; Visit Provider Physician Assistant
DX: M54.42 Lumbago with sciatica, left side (principal)

== ENCOUNTER → 2024-04-02 09:55 | Outpatient (BNVA) | payer MEDICARE, MEDICAID, SELFPAY | PROVIDERS: PCP Internal Medicine; Visit Provider Physician Assistant | DX: M54.42 Lumbago with sciatica, left side (principal) | CPT/HCPCS: 99212 ==

== ENCOUNTER 2024-04-09 13:13 | Outpatient (AMB) | payer MEDICARE, MEDICAID, SELFPAY ==
[2024-04-09 13:16] VITALS: BP 170/94; BMI 32.8
--- NOTE | 2024-04-09 13:16 | A.OFFPC_ITS ---
Vital Signs 04/09/24 13:16 Height 5 ft 4 in Weight 191 lb BMI 32.8 BP 170/94 H Blood Pressure Location Lt brachial Position Sitting Intake Visit Reasons: back pain Intake Note: Patient here for back pain Second Mate Required: No Accompanied by: Self / Same As Patient Allergies Penicillins Allergy (Mild, Verified 04/09/24 13:30) Rash venlafaxine [From Effexor] Allergy (Mild, Verified 04/09/24 13:30) Rash cyclobenzaprine [Cyclobenzaprine] Allergy (Unknown, Verified 04/09/24 13:30) Unknown topiramate [From Topamax] Allergy (Unknown, Verified 04/09/24 13:30) Unknown levofloxacin [From Levaquin] Adverse Reaction (Severe, Verified 04/09/24 13:30) Diarrhea Sulfa (Sulfonamide Antibiotics) Adverse Reaction (Severe, Verified 04/09/24 13:30) Diarrhea fentanyl [FENTANYL] Adverse Reaction (Intermediate, Verified 04/09/24 13:30) Hallucinations Medication List - Last Reconciled 04/09/24 by Chelsea Armstrong MD alprazolam 0.5 mg PO DAILY amitriptyline 25 mg PO BEDTIME apixaban (Eliquis) 5 mg PO BID atorvastatin 80 mg PO BEDTIME blood pressure monitor As directed blood pressure test kit-large As directed clonazepam 1 mg PO BID 30 days cyclobenzaprine 10 mg PO BEDTIME 30 days dexamethasone 4 mg PO BID diltiazem HCl CD (Cardizem CD) 240 mg PO DAILY diphenoxylate-atropine 2.5-0.025 mg (Lomotil) 1 tab PO BID PRN divalproex ER 500 mg PO DAILY divalproex ER 1,000 mg (2 x 500 mg) PO QPM 90 days docusate sodium 100 mg PO BID PRN duloxetine 60 mg PO BEDTIME fenofibrate 160 mg PO DAILY 90 days fenofibrate nanocrystallized 48 mg PO DAILY ferrous sulfate (FeroSul) 325 mg PO BID fluticasone furoate-vilanterol 100-25 mcg/dose (Breo Ellipta) 1 inh inhalation DAILY hydralazine 50 mg PO TID loperamide (Imodium A-D) 2 mg PO Q6H PRN Magic Mouthwash Diphen/Lido/Antacid 1:1:1 10 mL PO QID metoclopramide HCl 10 mg PO Q6H PRN metoprolol succinate ER 50 mg PO QAM nystatin 1 appl topical DAILY PRN nystatin 1 appl topical BID 30 days olanzapine 5 mg PO DAILY omeprazole 20 mg PO BID ondansetron 8 mg PO Q8H potassium chloride ER (K-Tab) 20 mEq PO DAILY prednisone 40 mg (2 x 20 mg) PO DAILY riboflavin (vitamin B2) 400 mg PO DAILY 30 days tizanidine 2 mg PO BEDTIME PRN [Tub ledge vertical grab bar/ not suction bar. As directed] ubrogepant (Ubrelvy) 50 - 100 mg (0.5 - 1 x 100 mg) PO ONCE PRN 30 days umeclidinium 62.5 mcg/actuation (Incruse Ellipta) 1 inh inhalation DAILY walker (Ultra-Light Rollator misc) As directed Tobacco use date assessed: 10/04/23 Dental Screening Dental Screen Date: 10/04/23 HPI HPI Comments History of Present Illness Details This is a 58-year-old female with bipolar disorder, moderate major depression, anxiety, hypertension, fibromyalgia and adenocarcinoma of sigmoid colon that comes today complaining of low back pain radiating to the left side that started after she fell above 10 days ago in which she sleep and did not lose consciousness or hit her head. Since then she has been having back pain. Went to urgent care and was prescribed cyclobenzaprine with no significant relief. Walks with a cane for gait stability. Had CT scan of abdomen done before the fell showing thoracic spondylosis. Bipolar disorder, depression and anxiety stable with medications. Blood pressure elevated today and will be recheck in 3 weeks by nurse navigator. On duloxetine for fibromyalgia. Receiving treatment for her adenocarcinoma with Hematology-Oncology. No chest pain or shortness on breath. Patient also has atrial fibrillation on chronic anticoagulation. FORMERLY [facility] Medical History Smoker Chronic back pain Colostomy in place (~2020) Personal history of nicotine dependence Polysubstance (including opioids) dependence, binge pattern Atrial fibrillation with rapid ventricular response Congestive heart failure Restrictive lung disease COPD (chronic obstructive pulmonary disease) No natural teeth COVID-19 vaccine series completed History of COVID-19 (~04/2020) Oxygen dependent Pericardial effusion Other and unspecified hyperlipidemia Essential hypertension Peripheral vascular disease Preoperative cardiovascular examination Bilateral pneumonia Adenocarcinoma of sigmoid colon (~2020) Hypernatremia GI bleed UTI (urinary tract infection) Pleural effusion, left Colon cancer (~2020) IVY (obstructive sleep apnea) Cancer of lower lobe of left lung (~2020) GERD (gastroesophageal reflux disease) Acute and chronic respiratory failure Lung cancer Obesity Hypoventilation associated with obesity Obesity hypoventilation syndrome Respiratory failure with hypoxia and hypercapnia Rotator cuff strain Hypoxia Pneumonia Restless legs syndrome (RLS) Sleep disorder Bipolar disorder (~2009) Back pain with history of spinal surgery Renal failure Fibromyalgia Depression High cholesterol PTSD (post-traumatic stress disorder) CAD (coronary artery disease) HTN (hypertension) Surgical History History of partial colectomy (~12/2020) History of cardiac cath (~2010) History of hysterectomy (~1990) History of cholecystectomy History of appendectomy (~1982) History of colonoscopy (~08/2020) History of lobectomy of lung (~08/2020) History of esophagogastroduodenoscopy (EGD) History of bunionectomy (~1977) History of back surgery Family History Maternal Aunt Breast cancer Stroke COPD (chronic obstructive pulmonary disease) Maternal Aunt Breast cancer COPD (chronic obstructive pulmonary disease) Mother Uterine cancer COPD (chronic obstructive pulmonary disease) HTN (hypertension) Heart disease Mental health disorder Maternal Uncle Stroke Paternal Grandmother Heart attack Parkinsons disease Sister Diabetes IBS (irritable bowel syndrome) Son HTN (hypertension) Substance use disorder Daughter HTN (hypertension) Father HTN (hypertension) Brother Heart disease Family/Other Mental health disorder Social History Household Members: Spouse Housing: House Are you a primary rental boats caretaker to a significant other at home: No Do you presently have visiting nurse or other home services: Yes Alcohol intake: never Comment: pt sleeping Patient Tobacco Use Status: Former Tobacco user Tobacco use type: Cigarette Cigarettes Per Day: 4 Years Smoked: 40 e-Cigarette/Vaping Use: Never Used Second Hand Smoke Exposure: Yes Advance Directives Date on File: 10/05/22 service: No Current occupational status: unemployed and disabled Cognitive needs: Yes (walker ) Hearing needs: No Vision needs: No Questionnaire Thrive Questionnaire Date Thrive assessed: 10/04/23 MARIA INES-7 AMB Questionnaire MARIA INES-7 Date MARIA INES - 7 assessed: 10/04/23 Source: Developed by Drs. Parrish Hernandez, Claire Washington, Maxwell Oquendo and colleagues, with an educational skip from [employer]. Review of Systems Const All systems reviewed & are unremarkable except as noted in HPI and below Card Denies chest pain at rest, Denies chest pain with activity, Denies edema, Denies irregular heart rhythm, Denies claudication, Denies dyspnea, Denies dyspnea on exertion, Denies orthopnea, Denies paroxysmal nocturnal dyspnea and Denies slow heart rate Resp Denies cough, Denies dyspnea and Denies dyspnea on exertion Musc Reports back pain Physical exam (Primary Care) Vital Signs: Last Vital Signs BP 170/94 H 04/09/24 13:16 Care Plan Goal for BP management: Blood pressure goal is equal or less than 130/80. Next steps: Recheck blood pressure with nurse navigator BMI result Body Mass Index 32.8 BMI Assessment/Plan discussion: High BMI High, discussed plan: lifestyle, weight reduction, dietary and physical activity Tobacco/Smoking Status: Tobacco use Status Tobacco use date assessed 10/04/23 04/09/24 13:25 Patient Tobacco Use Status Former Tobacco user 04/09/24 13:25 Tobacco use type Cigarette 04/09/24 13:25 e-Cigarette/Vaping Use Never Used 04/09/24 13:25 Thrive Assessment: Date of Thrive Assessment Date Thrive assessed 10/04/23 04/09/24 13:25 Resp Effort & Inspection: normal respiratory effort Auscultation: clear to auscultation bilaterally Cardio Jugular venous distension: no JVD Rate: regular rate Rhythm: regular rhythm Heart sounds: S1 normal heart sound present and S2 normal heart sound present Back/Spine/Pelvis Thoracic/Lumbar Spine: lumbar spinal tenderness Extrem General: Yes full ROM Office Procedures Flu Questionnaire Does the patient have a severe egg allergy?: No Immunizations Fluarix Triv [id number] (PF) 45 mcg (15 mcg x 3)/0.5 mL IM syringe Performing Provider: Chelsea Armstrong MD [place] [facility] [place] [facility] Documented (not given) by: VANNA Vasquez on 04/09/24 13:53 Reason Not Given: Not Given Coding Level of Care Code Est Pt Level 4 (26666) Complex EM visit Add On G2211 Diagnoses Acute left-sided low back pain with left-sided sciatica M54.42 Back pain laterality: left Chronicity: acute Moderate major depression F32.1 Fibromyalgia M79.7 Bipolar affective disorder, remission status unspecified F31.9 Active/Remission status: remission status unspecified PAF (paroxysmal atrial fibrillation) I48.0 Primary hypertension I10 Hypertension type: primary hypertension Anxiety F41.9 Adenocarcinoma of sigmoid colon C18.7 Time Spent (min) 22 Assessment & Plan Assessment & Plan (1) Low back pain with left-sided sciatica: Code(s): M54.42 - Lumbago with sciatica, left side Category: Medical Qualifiers: Back pain laterality: left Chronicity: acute Qualified Code(s): M54.42 - Lumbago with sciatica, left side Plan: X-ray ordered. Start tramadol. (2) Moderate major depression: Code(s): F32.1 - Major depressive disorder, single episode, moderate Category: Medical Plan: Continue amitriptyline. (3) Fibromyalgia: Code(s): M79.7 - Fibromyalgia Category: Medical Plan: Continue duloxetine. (4) Bipolar disorder: Onset Date: ~2009 Code(s): F31.9 - Bipolar disorder, unspecified Category: Medical Qualifiers: Active/Remission status: remission status unspecified Qualified Code (s): F31.9 - Bipolar disorder, unspecified Plan: Continue divalproex. (5) PAF (paroxysmal atrial fibrillation): Onset Date: ~2020 Code(s): I48.0 - Paroxysmal atrial fibrillation Category: Medical Plan: Continue Eliquis. Follow-up with Cardiology. The goal is heart rate control. (6) HTN (hypertension): Code(s): I10 - Essential (primary) hypertension Category: Medical Qualifiers: Hypertension type: primary hypertension Qualified Code(s): I10 - Essential (primary) hypertension Plan: Continue hydralazine. Blood pressure goal is equal or less than 130/80. Recheck blood pressure with nurse navigator in 3 weeks. (7) Anxiety: Code(s): F41.9 - Anxiety disorder, unspecified Category: Medical Plan: Continue benzodiazepines as needed. (8) Adenocarcinoma of sigmoid colon: Onset Date: ~2020 Comment: s/p resection , and has permanant Colostomy Code(s): C18.7 - Malignant neoplasm of sigmoid colon Category: Medical Plan: Follow-up with Hematology-Oncology. Orders: Orders Influenza [id number] Immunization Today Z23 - Encounter for immunization Medications: New tramadol 50 mg PO Q8H PRN 21 tabs 0RF pain 7 days Discontinued cyclobenzaprine Discontinued Reason: Patient Completed Course 10 mg PO BEDTIME 30 days 30 tabs 0RF
== END 2024-04-09 13:52 | disposition home or self-care (01) ==
LOC: HO.HMCH 13:14
PROVIDERS: PCP Internal Medicine; Visit Provider Internal Medicine
DX: I48.0 Paroxysmal atrial fibrillation (principal); F31.9 Bipolar disorder, unspecified; C18.7 Malignant neoplasm of sigmoid colon; M54.42 Lumbago with sciatica, left side; M79.7 Fibromyalgia; I10 Essential (primary) hypertension; F41.9 Anxiety disorder, unspecified

== ENCOUNTER → 2024-04-09 13:13 | Outpatient (BNVA) | payer MEDICARE, MEDICAID, SELFPAY | PROVIDERS: PCP Internal Medicine; Visit Provider Internal Medicine | DX: M54.42 Lumbago with sciatica, left side (principal); F32.1 Major depressive disorder, single episode, moderate; M79.7 Fibromyalgia; I48.0 Paroxysmal atrial fibrillation; I10 Essential (primary) hypertension; F41.9 Anxiety disorder, unspecified; C18.9 Malignant neoplasm of colon, unspecified | CPT/HCPCS: 99212 ==

== ENCOUNTER 2024-04-11 13:46 | Emergency (ER) | payer MEDICARE, MEDICAID, SELFPAY ==
[2024-04-11] VITALS (15 sets, daily range): BP systolic 58–159; BP diastolic 23–83; PULSE 70–94; RESP 16–19; TEMP 36.6–37.1; O2SAT 94–100; BMI 33.6
--- NOTE | ~2024-04-11 | XR_ITS ---
EXAMINATION: XR CHEST CLINICAL INFORMATION: weakness COMPARISON: X-ray dated April 19, 2023. TECHNIQUE: Frontal view of the chest was obtained. FINDINGS: Cardiomediastinal silhouette overlaps the left hemithorax due to patient's positioning. Pulmonary reticular pattern. Haziness in the left lower hemithorax. No gross pneumothorax. Port-A-Cath tip ends in the SVC region. Multilevel spondylosis. Osteopenia versus osteoporosis. Degenerative changes in the left shoulder. Calcified plaque aortic arch. XR/XR chest 1V IMPRESSION: Chronic interstitial lung disease. Questionable left-sided pleural effusion, [id number] volume. Electronically signed by: Turner Giang MD 04/11/2024 03:24 PM EST
--- NOTE | ~2024-04-11 | CT_ITS ---
EXAMINATION: CT HEAD WITHOUT CONTRAST CLINICAL INFORMATION: Change in mental status COMPARISON: MRI of 08/26/2022 TECHNIQUE: Contiguous axial imaging was performed from the skull base to vertex without intravenous administration of contrast. This CT examination was performed using dose optimization techniques as appropriate, variously including the following: *Automated exposure control *Adjustment of mA and/or kV according to patient size (this includes techniques or standardized protocols for targeted exams where dose is matched to indication/reason for exam; i.e. extremities or head) *Use of iterative reconstruction technique DLP: 738.21 mGy-cm FINDINGS: The ventricles and sulci are normal in size and configuration. No acute hemorrhage, mass effect or shift is evident. Duncan-white differentiation is maintained. In the posterior fossa, the brainstem, cerebellum and fourth ventricle image normally. 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 The orbits and calvarium are intact. Mild right maxillary sinus mucosal thickening is evident. CT/CT head/brain wo IV con IMPRESSION: 1. No acute hemorrhage, mass effect or shift. 2. 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 3. Right maxillary sinus mucosal thickening compatible with chronic sinusitis. Electronically signed by: Dudley Parkinson MD 04/11/2024 05:05 PM [facility]
--- NOTE | ~2024-04-11 | CT_ITS ---
EXAMINATION: CT ANGIOGRAM CHEST CLINICAL INFORMATION: Question dissection. Low blood pressure on right arm. COMPARISON: Chest CT 09/12/2022 TECHNIQUE: Multiple axial images were obtained through the chest after the administration of 70 mL of Omnipaque 350 intravenous contrast. Extensive vascular post-processing including two-dimensional and three-dimensional reformatted images were created and reviewed on an independent workstation. This CT examination was performed using dose optimization techniques as appropriate, variously including the following: *Automated exposure control *Adjustment of mA and/or kV according to patient size (this includes techniques or standardized protocols for targeted exams where dose is matched to indication/reason for exam; i.e. extremities or head) *Use of iterative reconstruction technique DLP: 455 mGy-cm FINDINGS: The ascending thoracic aorta is nonaneurysmal. There is significant pulsation artifact resulting in a crescentic low-attenuation appearance at the anterior medial aspect of the ascending thoracic aorta which I suspect simulates the appearance of dissection, though would be difficult to fully exclude a small mural hematoma in the absence of a noncontrast series. There is otherwise no definite evidence of dissection. There is a three-vessel branching orientation to the aortic arch. There is significant severe atherosclerotic disease at the origins of the arch vessels with occlusive or near occlusive stenosis at the origin of the brachiocephalic and at least a moderate stenosis at the origin of the left common carotid. There is also heterogeneous disease at the origin of the left subclavian resulting in moderate to severe stenosis. There is severe calcific disease resulting in moderate to severe stenosis at the origin of the right subclavian. The right common carotid origin is patent. The visualized portion of the left vertebral artery is hypertrophied and the visual portion of the right right vertebral artery is atretic. The descending thoracic aorta is normal in course and caliber. There is no evidence of dissection of the descending thoracic aorta. The visualized abdominal aorta is nonaneurysmal. There is moderate eccentric calcific disease. There is calcification at the origins of the celiac and superior mesenteric arteries without hemodynamically significant stenosis. The visualized renal arteries are patent. The pulmonary arteries are not dilated. While the study is not optimized for the evaluation of pulmonary arteries, no proximal emboli are seen. There is dense contrast within the superior vena cava resulting in streak artifact. There is a left-sided Port-A-Cath in place which terminates at the junction of the brachiocephalic veins. The pulmonary veins are unremarkable. Evaluation of the lungs is limited by motion artifacts. There are emphysematous changes of the upper lobes. There is scattered linear opacity and volume loss at the bases secondary to atelectasis. No discrete suspicious pulmonary nodule is identified. The central and peripheral airways are unremarkable. The heart is at the upper limits of normal for size. There is no pericardial effusion or pericardial thickening. There is atherosclerotic calcification of the coronary arteries. Evaluation for mediastinal lymphadenopathy is limited secondary to technical factors, though no bulky mediastinal lymphadenopathy is seen. The incompletely visualized upper abdomen is notable for calcifications along the mildly irregularly dilated pancreatic duct which is most suggestive of prior or chronic pancreatitis. There are severe degenerative changes of the left shoulder. There are degenerative changes of the thoracic spine. No acute or aggressive bony abnormality is visualized. CT/CT angio chest aorta IMPRESSION: There is a low-attenuation crescentic appearance along the anterior medial aspect of the ascending thoracic aorta in the region of significant pulsation artifact. I suspect the appearance is most likely artifactual, and there is no definite evidence of dissection or other acute aortic syndrome. In the absence of noncontrast phase, though it would be difficult to exclude a small intramural hematoma. Per my conversation with Dr. Bedolla the patient is not necessarily presenting with symptoms of be concerning for acute dissection (e.g. chest pain). There is severe atherosclerotic disease involving the origins of the arch vessels with either occlusion or near occlusive stenosis of the brachiocephalic origin with reconstitution of the vessel and severe, near occlusive stenosis at the origin of the right subclavian artery. This could account for difference in blood pressures between the arms. There is also moderate to severe stenosis at the origin of the left subclavian artery and a hypertrophied appearance of the left vertebral artery. Correlation could be made for steal syndrome. Fleischner guidelines were followed. Electronically signed by: Ruben Del Angel MD 04/11/2024 09:26 PM [facility]
--- NOTE | ~2024-04-11 | CT_ITS ---
EXAMINATION: CT CERVICAL SPINE WITHOUT CONTRAST CLINICAL INFORMATION: Neck pain, trauma. COMPARISON: CT of 10/05/2020 TECHNIQUE: Multiple helical unenhanced images were acquired through the cervical spine. Multiplanar computer reformatted images were acquired from the dataset in the sagittal and coronal plane. This CT examination was performed using dose optimization techniques as appropriate, variously including the following: *Automated exposure control *Adjustment of mA and/or kV according to patient size (this includes techniques or standardized protocols for targeted exams where dose is matched to indication/reason for exam; i.e. extremities or head) *Use of iterative reconstruction technique DLP: 512 mGy-cm FINDINGS: CT examination of the cervical spine shows no prevertebral soft tissue swelling. Vertebral body height and alignment are maintained. No acute fracture or subluxation is evident. The odontoid process, cervicothoracic and cervical medullary junctions are normal. There are no bone lesions. Multilevel degenerative disc disease is not significantly changed. There are calcifications within the great vessels. CT/CT cervical spine wo IV con IMPRESSION: 1. No acute cervical spine fracture or subluxation. Fleischner guidelines were followed. Electronically signed by: Dudley Parkinson MD 04/11/2024 05:08 PM [facility]
[2024-04-11 14:10] LABS: Glucose, Whole Blood 87 mg/dL (60-115)
--- NOTE | 2024-04-11 14:11 | ECG_ITS ---
Test Reason : weakness Blood Pressure : / mmHG Vent. Rate : 070 BPM Atrial Rate : 070 BPM P-R Int : 154 ms QRS Dur : 086 ms QT Int : 408 ms P-R-T Axes : 058 035 051 degrees QTc Int : 440 ms Normal sinus rhythm Normal ECG When compared with ECG of 11-MAR-2021 12:15, No significant change was found Referred By: Svetlana Willis Electronically Signed By:TRELL HERNANDEZ MD
--- NOTE | 2024-04-11 14:16 | ED_ITS ---
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 Patient denies headstrike on arrival but her pupils are dilated. She keeps saying she is in [place]. No other history per EMS. Patient did recently get put on tramadol by PCP 04/09 following a fall and c/o back pain MD complaint: altered mental status Onset (ago): hour(s) (2) Timing confirmed by: family member Severity: moderate Context: other (recent fall and recent tramadol Rx) Associated symptoms: denies other symptoms Related Data Home Medications ?Medication ?Instructions ?Recorded ?Confirmed blood pressure monitor #1 ea 10/22/20 04/09/24 blood pressure test kit-large #1 ea 10/22/20 04/09/24 docusate sodium 100 mg capsule 100 mg PO BID PRN constipation 09/21/21 04/09/24 Previous Rx's ?Medication ?Instructions ?Recorded nystatin 100,000 unit/gram topical 1 appl topical DAILY PRN rash #30 09/18/22 cream grams divalproex 500 mg tablet,extended 500 mg PO DAILY #90 tabs 02/01/23 release 24 hr olanzapine 5 mg disintegrating 5 mg PO DAILY #30 tabs 03/22/23 tablet ubrogepant 100 mg tablet (Ubrelvy) 50 - 100 mg (0.5 - 1 x 100 mg) PO 07/05/23 ONCE PRN migraine headache 30 days #16 tabs fenofibrate nanocrystallized 48 mg 48 mg PO DAILY #30 tabs 09/15/23 tablet umeclidinium 62.5 mcg/actuation 1 inh inhalation DAILY #30 ea 09/20/23 blister powder for inhalation (Incruse Ellipta) mercedez (Ultra-Light Rollator misc) #1 ea 09/29/23 alprazolam 0.5 mg tablet 0.5 mg PO DAILY #2 tabs 10/11/23 ondansetron 8 mg disintegrating 8 mg PO Q8H #30 tabs 11/03/23 tablet Magic Mouthwash 10 ml PO QID #240 mL 11/27/23 Diphen/Lido/Antacid 1:1:1 240 mL suspension loperamide 2 mg capsule (Imodium 2 mg PO Q6H PRN Diarrhea #60 caps 12/05/23 A-D) nystatin 100,000 unit/gram topical 1 appl topical BID 30 days #30 12/11/23 powder grams dexamethasone 4 mg tablet 4 mg PO BID #60 tabs 12/13/23 metoprolol succinate 50 mg 50 mg PO QAM #90 tabs 01/06/24 tablet,extended release 24 hr ferrous sulfate 325 mg (65 mg 325 mg PO BID #60 tabs 01/16/24 iron) tablet (FeroSul) fluticasone furoate 100 1 inh inhalation DAILY #60 ea 01/16/24 mcg-vilanterol 25 mcg/dose inhalation powder (Breo Ellipta) diltiazem HCl 240 mg 240 mg PO DAILY #60 caps 01/21/24 capsule,extended release 24 hr (Cardizem CD) diphenoxylate-atropine 2.5 1 tab PO BID PRN Diarrhea #30 tabs 02/19/24 mg-0.025 mg tablet (Lomotil) omeprazole 20 mg capsule,delayed 20 mg PO BID #60 caps 03/04/24 release Tub ledge vertical grab bar/ not #1 ea 03/06/24 suction bar. clonazepam 1 mg tablet 1 mg PO BID 30 days #60 tabs 03/18/24 amitriptyline 25 mg tablet 25 mg PO BEDTIME #30 tabs 03/31/24 apixaban 5 mg tablet (Eliquis) 5 mg PO BID #60 tabs 03/31/24 atorvastatin 80 mg tablet 80 mg PO BEDTIME #30 tabs 03/31/24 duloxetine 60 mg capsule,delayed 60 mg PO BEDTIME #30 caps 03/31/24 release hydralazine 50 mg tablet 50 mg PO TID #90 tabs 03/31/24 prednisone 20 mg tablet 40 mg (2 x 20 mg) PO DAILY #8 tabs 04/02/24 tizanidine 2 mg tablet 2 mg PO BEDTIME PRN muscle 04/02/24 spasticity #7 tabs riboflavin (vitamin B2) 400 mg 400 mg PO DAILY 30 days #30 tabs 04/04/24 tablet divalproex 500 mg tablet,extended 1,000 mg (2 x 500 mg) PO QPM 90 04/08/24 release 24 hr days #180 tabs metoclopramide HCl 10 mg tablet 10 mg PO Q6H PRN Nausea #30 tabs 04/08/24 fenofibrate 160 mg tablet 160 mg PO DAILY 90 days #90 tabs 04/09/24 tramadol 50 mg tablet 50 mg PO Q8H PRN pain 7 days #21 04/09/24 tabs ondansetron 8 mg disintegrating 8 mg PO Q8H PRN Nausea vomiting 04/10/24 tablet #30 tabs potassium chloride 20 mEq 20 meq PO DAILY #30 tabs 04/10/24 tablet,extended release (K-Tab) Allergies Allergy/AdvReac Type Severity Reaction Status Date / Time Penicillins Allergy Mild Rash Verified 04/11/24 14:45 venlafaxine [From Effexor] Allergy Mild Rash Verified 04/11/24 14:45 cyclobenzaprine Allergy Unknown Unknown Verified 04/11/24 14:45 [Cyclobenzaprine] topiramate [From Topamax] Allergy Unknown Unknown Verified 04/11/24 14:45 levofloxacin [From Levaquin] AdvReac Severe Diarrhea Verified 04/11/24 14:45 Sulfa (Sulfonamide AdvReac Severe Diarrhea Verified 04/11/24 14:45 Antibiotics) fentanyl [FENTANYL] AdvReac Intermediate Hallucinati Verified 04/11/24 14:45 ons Review of Systems 2 Review of Systems: ROS unable to be obtained due to altered mental status [facility] Past Medical History Source: old records reviewed Medical History Smoker Chronic back pain Colostomy in place (~2020) Personal history of nicotine dependence Polysubstance (including opioids) dependence, binge pattern Atrial fibrillation with rapid ventricular response Congestive heart failure Restrictive lung disease COPD (chronic obstructive pulmonary disease) No natural teeth COVID-19 vaccine series completed History of COVID-19 (~04/2020) Oxygen dependent Pericardial effusion Other and unspecified hyperlipidemia Essential hypertension Peripheral vascular disease Preoperative cardiovascular examination Bilateral pneumonia Adenocarcinoma of sigmoid colon (~2020) Hypernatremia GI bleed UTI (urinary tract infection) Pleural effusion, left Colon cancer (~2020) IVY (obstructive sleep apnea) Cancer of lower lobe of left lung (~2020) GERD (gastroesophageal reflux disease) Acute and chronic respiratory failure Lung cancer Obesity Hypoventilation associated with obesity Obesity hypoventilation syndrome Respiratory failure with hypoxia and hypercapnia Rotator cuff strain Hypoxia Pneumonia Restless legs syndrome (RLS) Sleep disorder Bipolar disorder (~2009) Back pain with history of spinal surgery Renal failure Fibromyalgia Depression High cholesterol PTSD (post-traumatic stress disorder) CAD (coronary artery disease) HTN (hypertension) Surgical History History of partial colectomy (~12/2020) History of cardiac cath (~2010) History of hysterectomy (~1990) History of cholecystectomy History of appendectomy (~1982) History of colonoscopy (~08/2020) History of lobectomy of lung (~08/2020) History of esophagogastroduodenoscopy (EGD) History of bunionectomy (~1977) History of back surgery Family History Family History Maternal Aunt Breast cancer Stroke COPD (chronic obstructive pulmonary disease) Maternal Aunt Breast cancer COPD (chronic obstructive pulmonary disease) Mother Uterine cancer COPD (chronic obstructive pulmonary disease) HTN (hypertension) Heart disease Mental health disorder Maternal Uncle Stroke Paternal Grandmother Heart attack Parkinsons disease Sister Diabetes IBS (irritable bowel syndrome) Son HTN (hypertension) Substance use disorder Daughter HTN (hypertension) Father HTN (hypertension) Brother Heart disease Family/Other Mental health disorder Social History Social History Household Members: Spouse Housing: House Are you a primary multi care technician to a significant other at home: No Do you presently have visiting nurse or other home services: Yes Alcohol intake: never Comment: pt sleeping Patient Tobacco Use Status: Former Tobacco user Tobacco use type: Cigarette Cigarettes Per Day: 4 Years Smoked: 40 e-Cigarette/Vaping Use: Never Used Second Hand Smoke Exposure: Yes Advance Directives: Yes Advance Directives on File: Yes Advance Directives Date on File: 10/05/22 service: No Current occupational status: unemployed and disabled Cognitive needs: Yes (walker ) Hearing needs: No Vision needs: No Physical Exam ED Vital Signs: Vital Signs - 24 hr 04/11/24 14:21 04/11/24 14:45 04/11/24 15:15 Temperature 97.8 F Pulse Rate 72 Respiratory Rate 19 18 16 Blood Pressure 128/54 L 98/83 76/33 L Pulse Oximetry 99 Oxygen Delivery Method Nasal Cannula Oxygen Flow Rate 04/11/24 15:45 04/11/24 16:13 Temperature 98.3 F Pulse Rate 70 Respiratory Rate 18 18 Blood Pressure 58/23 L 67/32 L Pulse Oximetry 100 Oxygen Delivery Method Nasal Cannula Oxygen Flow Rate 2 BMI result Body Mass Index 33.6 Appearance: Weak appearing but eyes open - mild somnolence. Oriented X to place and self. mild acute distress. Eyes: Pupils dilated 5mm equal and sluggish ENT: Pharynx normal. atraumatic Neck: Normal inspection. Neck supple. CVS: Normal heart rate and rhythm. Pulses normal. Respiratory: No respiratory distress. Breath sounds diminished Abdomen: Soft and nontender. Skin: Skin warm and dry. Normal skin color. Normal skin turgor. Extremities: No lower extremity edema. No calf ttp Neuro: Oriented X 2 no localizing signs she is diffusely weak at this time Course Course Course Narrative: has bandemia - empiric abx ordered possible infection 338pm. Reevaluation(s) Reevaluation #1: signed out to Dr. Dent pending further workup Reevaluation #2: patient is obese IBW 55kg 30cc/kg bolus = 1650 IVF ordered notified of low BP patient still mentating in the same state as she presented RN aware start fluids and if not better start levophed - Dr. Dent aware as well 413pm Medications Administered Generic Name Dose Route Start Last Admin Trade Name Freq PRN Reason Stop Dose Admin Sodium Chloride 1,000 mls @ 999 mls/hr 04/11/24 16:11 04/11/24 16:23 Ns IV 04/11/24 17:11 999 mls/hr .Q1H1M ONE Administration Sodium Chloride 1,000 mls @ 999 mls/hr 04/11/24 16:11 04/11/24 16:23 Ns IV 04/11/24 17:11 999 mls/hr .Q1H1M ONE Administration Discontinued Medications Generic Name Dose Route Start Last Admin Trade Name Charlie PRN Reason Stop Dose Admin Lactulose 20 gm 04/11/24 14:56 04/11/24 15:20 Lactulose 20 Gm/30 Ml Solution PO 04/11/24 14:57 20 gm ONCE ONE Administration Medical Decision Making Medical Decision Making [facility] Narrative: 58 yo female with PMH of depression, anemia, sigmoid adenocarcinoma with colostomy, CAD, opiate misuse, GERD, PAF on eliquis, CHF, COPD on 2L home O2, HTN, HLD, CHF here with c/o AMS x 2 hours which could be multifactorial given recent fall CT head/cspine for trauma, encephalopathy - labs UA, CXR, VBG ordered, tox given recent tramadol rx and hx of misuses. No seizures reported. Differential Diagnosis Differential Diagnoses: The differential diagnosis associated with the presentation includes ICH, seizure, encephalopathy, medication related Admission/Observation Consideration of admission/observation: Escalation of care including admission/observation considered Lab Data [facility] Lab Attestation statement: I reviewed the patient's lab results. 04/11/24 14:34 04/11/24 14:33 Labs: Lab Results 04/11/24 04/11/24 04/11/24 Range/Units 14:05 14:29 14:33 WBC (4.8-10.8) X10*3/uL RBC (4.20-5.50) X10*6/uL Hgb (12.0-16.0) g/dl Hct (37.0-47.0) % MCV (80.0-98.0) fL MCH (27.0-33.0) pg MCHC (31.0-35.0) g/dl RDW (11.0-16.0) % Plt Count (160-400) X10*3/uL MPV (9.4-12.3) fL Immature Gran % (Auto) Neut % (Auto) Lymph % (Auto) Boundary % (Auto) Eos % (Auto) Baso % (Auto) Lymph # (Auto) Boundary # (Auto) Eos # (Auto) Baso # (Auto) Abs Immat Gran (auto) Absolute Neuts (auto) Absolute Nucleated RBC (0.0-0.012) X10*3/uL Nucleated RBC % (auto) (0.0-0.2) /100WBC Neutrophils % (Manual) (45-73) % Band Neutrophils % (3-5) % Lymphocytes % (Manual) (20-40) % Atypical Lymphs % (Man) (0-6) % Monocytes % (Manual) (2-11) % Metamyelocytes % % Myelocytes % % Abs Neuts (Manual) (2.0-8.3) X10*3/uL Lymphocytes # (Manual) (1.2-4.9) X10*3/uL Atyp Lymphs # (Manual) x10*3/uL Monocytes # (Manual) (0.1-1.2) X10*3/uL Metamyelocytes # X10*3/uL Myelocytes # X10*/uL Platelet Estimate (NORMAL) Plt Morphology Comment RBC Morphology Polychromasia /OIF Hypochromasia /OIF Microcytosis /OIF Macrocytosis /OIF Target Cells /OIF Stomatocytes /OIF PT 10.1 L (10.9-12.4) SEC INR 0.9 (0.9-1.1) VBG pH (7.32-7.43) VBG pCO2 mmHg VBG pO2 mmHg VBG HCO3 (22-26) mmol/L VBG O2 Saturation % VBG Base Excess mmol/L Sodium 144 (135-145) mmol/L Potassium 4.0 (3.3-5.1) mmol/L Chloride 110 H (96-108) mmol/L Carbon Dioxide 25 (22-29) mmol/L Anion Gap 13 (12-20) BUN 14 (9-16) mg/dL Creatinine 0.60 (0.5-1.4) mg/dL Estim Creat Clear Calc 107.5 Estimated GFR > 60 POC Glucose 87 (60-115) mg/dL Random Glucose 103 (60-115) mg/dL Lactic Acid 1.0 (0.5-2.0) mmol/L Calcium 9.0 (8.4-10.2) mg/dL Magnesium 2.1 (1.6-2.6) mg/dL Total Bilirubin 0.5 (0.0-1.0) mg/dL Direct Bilirubin 0.2 (0.0-0.5) mg/dL AST 16 (5-31) U/L ALT < 6 (0-31) U/L Alkaline Phosphatase 58 (39-117) U/L Ammonia 64 H (13-55) umol/L Total Creatine Kinase 22 L (26-140) U/L Troponin I High Sens 3.5 (<3.5-17.0) ng/L C-Reactive Protein 0.61 H (< or = 0.50) mg/dL B-Natriuretic Peptide 44 (<100) pg/mL Total Protein 6.0 L (6.5-8.0) g/dL Albumin 3.4 L (3.5-5.0) g/dL Lipase 9 (8-78) U/L Procalcitonin 0.04 ng/mL Hold Yellow Top See Note Urine Color Urine Appearance Urine pH (5.0-9.0) Ur Specific Urania (1.005-1.025) Urine Protein (Neg-Trace) mg/dL Urine Glucose (UA) (Negative) mg/dL Urine Ketones (Negative) mg/dL Urine Blood (Negative) Urine Nitrite (Negative) Ur Leukocyte Esterase (Negative) Urine Opiates Screen (Not Detect) Ur Buprenorphine Scrn (Not Detect) ng/mL Ur Oxycodone Screen (Not Detect) ng/mL Urine Methadone Screen (Not Detect) ng/mL Urine Fentanyl Screen (Not Detect) Ur Barbiturates Screen (Not Detect) Valproic Acid 36.7 L (50.0-100.0) mcg/mL Ur Phencyclidine Scrn (Not Detect) Ur Amphetamines Screen (Not Detect) U Benzodiazepines Scrn (Not Detect) Urine Cocaine Screen (Not Detect) U Marijuana (THC) Screen (Not Detect) Influenza Type A (PCR) (Negative) Influenza Type B (PCR) (Negative) RSV RNA Qual (PCR) (Negative) SARS-CoV-2 RNA (RT-PCR) (Negative) 04/11/24 04/11/24 04/11/24 Range/Units 14:34 14:41 14:45 WBC 7.1 (4.8-10.8) X10*3/uL RBC 3.09 L (4.20-5.50) X10*6/uL Hgb 10.2 L (12.0-16.0) g/dl Hct 32.3 L (37.0-47.0) % MCV 104.5 H (80.0-98.0) fL MCH 33.0 (27.0-33.0) pg MCHC 31.6 (31.0-35.0) g/dl RDW 18.7 H (11.0-16.0) % Plt Count 227 (160-400) X10*3/uL MPV 10.2 (9.4-12.3) fL Immature Gran % (Auto) Cancelled Neut % (Auto) Cancelled Lymph % (Auto) Cancelled Boundary % (Auto) Cancelled Eos % (Auto) Cancelled Baso % (Auto) Cancelled Lymph # (Auto) Cancelled Boundary # (Auto) Cancelled Eos # (Auto) Cancelled Baso # (Auto) Cancelled Abs Immat Gran (auto) Cancelled Absolute Neuts (auto) Cancelled Absolute Nucleated RBC 0.020 H (0.0-0.012) X10*3/uL Nucleated RBC % (auto) 0.3 H (0.0-0.2) /100WBC Neutrophils % (Manual) 55 (45-73) % Band Neutrophils % 7 H (3-5) % Lymphocytes % (Manual) 26 (20-40) % Atypical Lymphs % (Man) 1 (0-6) % Monocytes % (Manual) 6 (2-11) % Metamyelocytes % 1 % Myelocytes % 4 % Abs Neuts (Manual) 4.4 (2.0-8.3) X10*3/uL Lymphocytes # (Manual) 1.8 (1.2-4.9) X10*3/uL Atyp Lymphs # (Manual) 0.1 x10*3/uL Monocytes # (Manual) 0.4 (0.1-1.2) X10*3/uL Metamyelocytes # 0.1 X10*3/uL Myelocytes # 0.3 X10*/uL Platelet Estimate NORMAL (NORMAL) Plt Morphology Comment NORM RBC Morphology NOTED Polychromasia 1+ (0-2) /OIF Hypochromasia 1+ (5-14) /OIF Microcytosis 1+ (5-14) /OIF Macrocytosis 1+ (5-14) /OIF Target Cells 1+ (5-14) /OIF Stomatocytes 1+ (5-14) /OIF PT (10.9-12.4) SEC INR (0.9-1.1) VBG pH 7.41 (7.32-7.43) VBG pCO2 46 mmHg VBG pO2 131 mmHg VBG HCO3 30 H (22-26) mmol/L VBG O2 Saturation 98.0 % VBG Base Excess 4.8 mmol/L Sodium (135-145) mmol/L Potassium (3.3-5.1) mmol/L Chloride (96-108) mmol/L Carbon Dioxide (22-29) mmol/L Anion Gap (12-20) BUN (9-16) mg/dL Creatinine (0.5-1.4) mg/dL Estim Creat Clear Calc Estimated GFR POC Glucose (60-115) mg/dL Random Glucose (60-115) mg/dL Lactic Acid (0.5-2.0) mmol/L Calcium (8.4-10.2) mg/dL Magnesium (1.6-2.6) mg/dL Total Bilirubin (0.0-1.0) mg/dL Direct Bilirubin (0.0-0.5) mg/dL AST (5-31) U/L ALT (0-31) U/L Alkaline Phosphatase (39-117) U/L Ammonia (13-55) umol/L Total Creatine Kinase (26-140) U/L Troponin I High Sens (<3.5-17.0) ng/L C-Reactive Protein (< or = 0.50) mg/dL B-Natriuretic Peptide (<100) pg/mL Total Protein (6.5-8.0) g/dL Albumin (3.5-5.0) g/dL Lipase (8-78) U/L Procalcitonin ng/mL Hold Yellow Top Urine Color Dark Yellow Urine Appearance Clear Urine pH 7.0 (5.0-9.0) Ur Specific Urania 1.015 (1.005-1.025) Urine Protein Trace (Neg-Trace) mg/dL Urine Glucose (UA) Negative (Negative) mg/dL Urine Ketones Negative (Negative) mg/dL Urine Blood Negative (Negative) Urine Nitrite Negative (Negative) Ur Leukocyte Esterase Negative (Negative) Urine Opiates Screen Not Detected (Not Detect) Ur Buprenorphine Scrn Not Detected (Not Detect) ng/mL Ur Oxycodone Screen Not Detected (Not Detect) ng/mL Urine Methadone Screen Not Detected (Not Detect) ng/mL Urine Fentanyl Screen Not Detected (Not Detect) Ur Barbiturates Screen Not Detected (Not Detect) Valproic Acid (50.0-100.0) mcg/mL Ur Phencyclidine Scrn Not Detected (Not Detect) Ur Amphetamines Screen Not Detected (Not Detect) U Benzodiazepines Scrn Not Detected (Not Detect) Urine Cocaine Screen Not Detected (Not Detect) U Marijuana (THC) Screen Not Detected (Not Detect) Influenza Type A (PCR) NEGATIVE (Negative) Influenza Type B (PCR) NEGATIVE (Negative) RSV RNA Qual (PCR) NEGATIVE (Negative) SARS-CoV-2 RNA (RT-PCR) NEGATIVE (Negative) Independent Interpretation I performed an independent interpretation of an: EKG, Plain X-Ray and CT Scan Interpretation: Rate: 70 Rhythm: NSR [place]: normal Normal P waves. Normal SOHAIL. Normal QRS complex. ST T wave : normal no JOHN qTC: 440 prior studies: no acute ischemia The study has been interpreted contemporaneously by me. . Independent Historian Clinical information obtained from an independent historian. History obtained from or confirmed by: EMS External Record Review External record reviewed: Inpatient record and Outpatient record Critical Care Time Critical Care Time Critical Care Time: Yes Total Critical Care Time: 45 Attestation: review of records, repeat assessment, IVF x 2L I attest to this time spent taking care of the patient Discharge Plan Discharge Clinical Impression: Acute alteration in mental status, Bandemia Patient Disposition: Still a Patient Prescriptions: No Action nystatin 100,000 unit/gram cream 1 appl topical DAILY PRN (Reason: rash) Qty: 30 0RF divalproex 500 mg tablet extended release 24 hr 500 mg PO DAILY Qty: 90 1RF Ubrelvy 100 mg tablet 50 - 100 mg PO ONCE PRN (Reason: migraine headache) 30 Days Qty: 16 3RF Rx Instructions: take at onset of migraine, may repeat in 2hrs (may take w/ Ibuprofen) fenofibrate nanocrystallized 48 mg tablet 48 mg PO DAILY Qty: 30 2RF Incruse Ellipta 62.5 mcg/actuation blister with device 1 inh inhalation DAILY Qty: 30 11RF (DME) Ultra-Light Rollator Misc See Rx Instructions .Route Qty: 1 0RF Rx Instructions: As directed loperamide [Imodium A-D] 2 mg Capsule 2 mg PO Q6H PRN (Reason: Diarrhea) Qty: 60 3RF nystatin 100,000 unit/gram powder 1 appl topical BID 30 Days Qty: 30 0RF metoprolol succinate 50 mg tablet extended release 24 hr 50 mg PO QAM Qty: 90 1RF fluticasone furoate-vilanterol [Breo Ellipta] 100-25 mcg/dose blister with device 1 inh INHALATION DAILY Qty: 60 3RF ferrous sulfate [FeroSul] 325 mg (65 mg iron) tablet 325 mg PO BID Qty: 60 3RF diltiazem HCl [Cardizem CD] 240 mg capsule,extended release 24hr 240 mg PO DAILY Qty: 60 1RF omeprazole 20 mg capsule,delayed release(DR/EC) 20 mg PO BID Qty: 60 2RF (DME) Tub ledge vertical grab bar/ not suction bar. See Rx Instructions .Route .MEDSUPPLY Qty: 1 0RF Rx Instructions: As directed clonazepam 1 mg tablet 1 mg PO BID 30 Days Qty: 60 0RF amitriptyline 25 mg tablet 25 mg PO BEDTIME Qty: 30 1RF atorvastatin 80 mg tablet 80 mg PO BEDTIME Qty: 30 1RF hydralazine 50 mg tablet 50 mg PO TID Qty: 90 1RF duloxetine 60 mg capsule,delayed release(DR/EC) 60 mg PO BEDTIME Qty: 30 1RF Eliquis 5 mg tablet 5 mg PO BID Qty: 60 1RF riboflavin (vitamin B2) 400 mg tablet 400 mg PO DAILY 30 Days Qty: 30 6RF divalproex 500 mg tablet extended release 24 hr 1,000 mg PO QPM 90 Days Qty: 180 2RF metoclopramide HCl 10 mg Tablet 10 mg PO Q6H PRN (Reason: Nausea) Qty: 30 1RF fenofibrate 160 mg tablet 160 mg PO DAILY 90 Days Qty: 90 0RF olanzapine 5 mg Tablet,Disintegrating 5 mg PO DAILY Qty: 30 0RF alprazolam 0.5 mg Tablet 0.5 mg PO DAILY Qty: 2 0RF Rx Instructions: Take 1 tablet 1 hour before procedure, may repeat 1/2 hour before if necessary ondansetron 8 mg Tablet,Disintegrating 8 mg PO Q8H Qty: 30 4RF Magic Mouthwash Diphen/Lido/Antacid 1:1:1 240 mL Suspension 10 ml PO QID Qty: 240 3RF Rx Instructions: Lidocaine Viscous 2 % 80mL; diphenhydramine 12.5 mg/5 mL 80mL; aluminum-mag hydrox-simeth [id number]/5mL 80mL dexamethasone 4 mg Tablet 4 mg PO BID Qty: 60 3RF Rx Instructions: Take 4 mg p.o. b.i.d. for 2 days starting day after chemo, Q 2 weekly. diphenoxylate-atropine [Lomotil] 2.5-0.025 mg Tablet 1 tab PO BID PRN (Reason: Diarrhea) Qty: 30 0RF ondansetron 8 mg Tablet,Disintegrating 8 mg PO Q8H PRN (Reason: Nausea vomiting) Qty: 30 3RF potassium chloride [K-Tab] 20 mEq Tablet Extended Release 20 meq PO DAILY Qty: 30 0RF (DME) blood pressure test kit-large Kit See Rx Instructions .ROUTE DIRECTED Qty: 1 Rx Instructions: As directed (DME) blood pressure monitor Kit See Rx Instructions .ROUTE .MEDSUPPLY Qty: 1 Rx Instructions: As directed docusate sodium 100 mg capsule 100 mg PO BID PRN (Reason: constipation) tramadol 50 mg tablet 50 mg PO Q8H PRN (Reason: pain) 7 Days Qty: 21 0RF tizanidine 2 mg tablet 2 mg PO BEDTIME PRN (Reason: muscle spasticity) Qty: 7 0RF prednisone 20 mg tablet 40 mg PO DAILY Qty: 8 0RF Print Language: Citizen [place]
[2024-04-11 14:45] LABS: VBG Base Excess 4.8 mmol/L; VBG HCO3 30 mmol/L (22-26); VBG pCO2 46 mmHg; VBG pH 7.41 (7.32-7.43); VBG pO2 131 mmHg
[2024-04-11 14:46] LABS: Venous Blood Gas Refer to POC result
[2024-04-11 14:46] LABS: Hematocrit 32.3 % (37.0-47.0); Hemoglobin 10.2 g/dl (12.0-16.0); Mean Corpuscular HGB Conc 31.6 g/dl (31.0-35.0); Mean Corpuscular Volume 104.5 fL (80.0-98.0); Mean Platelet Volume 10.2 fL (9.4-12.3); NRBC Pct Auto 0.3 /100WBC (0.0-0.2); Platelet Count 227 X10*3/uL (160-400); Red Blood Count 3.09 X10*6/uL (4.20-5.50); Red Cell Distribution Width 18.7 % (11.0-16.0); White Blood Count 7.1 X10*3/uL (4.8-10.8)
[2024-04-11 14:54] LABS: INTERNATIONAL NORM RATIO 0.9 (0.9-1.1); Prothrombin Time 10.1 SEC (10.9-12.4)
[2024-04-11 14:55] LABS: Ammonia 64 umol/L (13-55)
[2024-04-11 14:56] LABS: Appearance Urine Clear; Color Urine Dark Yellow; Glucose Urine UA Negative (Negative); Leukocyte Esterase Urine Negative (Negative); Nitrite Urine Negative (Negative); Specific Gravity - Urine 1.015 (1.005-1.025); Urine Blood Negative (Negative); Urine Ketones Negative (Negative); Urine Protein Trace mg/dL (Neg-Trace)
[2024-04-11 15:02] LABS: Valproate 36.7 mcg/mL (50.0-100.0)
[2024-04-11 15:05] LABS: B Type Natriuretic Peptide 44 pg/mL (<100)
[2024-04-11 15:07] LABS: Amphetamine Screen Urine Not Detected (Not Detect); Barbiturates, Urine Not Detected (Not Detect); Benzodiazepines Screen Urine Not Detected (Not Detect); Buprenorphine Scr Not Detected (Not Detect); Cannabinoid Screen Urine Not Detected (Not Detect); Cocaine Screen Urine Not Detected (Not Detect); Fentanyl, urine Not Detected (Not Detect); Methadone Screen, Urine Not Detected (Not Detect); Opiate Screen Urine Not Detected (Not Detect); Oxycodone Screen Urine Not Detected (Not Detect); Phencyclidine Screen Urine Not Detected (Not Detect)
[2024-04-11 15:11] LABS: Troponin-I High Sensitivity 3.5 ng/L (<3.5-17.0)
[2024-04-11 15:13] LABS: Alanine Aminotransferase < 6 U/L (0-31); Albumin Level 3.4 g/dL (3.5-5.0); Alkaline Phosphatase 58 U/L (39-117); Anion Gap 13 (12-20); Aspartate Amino Transferase 16 U/L (5-31); Bilirubin Direct 0.2 mg/dL (0.0-0.5); Bilirubin Total 0.5 mg/dL (0.0-1.0); Blood Urea Nitrogen 14 mg/dL (9-16); C Reactive Protein 0.61 mg/dL (< or = 0.50); Carbon Dioxide 25 mmol/L (22-29); Chloride 110 mmol/L (96-108); Creatinine Clr Calc Pharmacy 107.5; Estimated Glomerular Filt Rate > 60; Glucose Random 103 mg/dL (60-115); Lipase 9 U/L (8-78); Magnesium 2.1 mg/dL (1.6-2.6); Sodium 144 mmol/L (135-145)
[2024-04-11 15:20] LABS: Atypical Lymph Absolute Manual 0.1 x10*3/uL; Atypical Lymphs Percent Manual 1 % (0-6); Band Neutrophils Percent 7 % (3-5); Lymphocytes Absolute Manual 1.8 X10*3/uL (1.2-4.9); Lymphocytes Percent Manual 26 % (20-40); Metamyelocytes Absolute 0.1 X10*3/uL; Metamyelocytes Percent 1 %; Monocytes Absolute Manual 0.4 X10*3/uL (0.1-1.2); Monocytes Percent Manual 6 % (2-11); Myelocytes Absolute 0.3 X10*/uL; Myelocytes Percent 4 %; Neutrophils Absolute Manual 4.4 X10*3/uL (2.0-8.3); Neutrophils Percent Manual 55 % (45-73)
[2024-04-11] MEDS: Lactulose 20 GM/30 ML SOLUTION PO (15:20)
[2024-04-11 15:21] LABS: Influenza A PCR NEGATIVE (Negative); Influenza B PCR NEGATIVE (Negative); Resp Syncy Virus RNA Qual PCR NEGATIVE (Negative); SARS COV2 PCR INHOUSE NEGATIVE (Negative)
[2024-04-11 15:22] LABS: Polychromasia 1+ (0-2) /OIF; Stomatocytes 1+ (5-14) /OIF
[2024-04-11 15:24] LABS: Hypochromasia 1+ (5-14) /OIF; Target Cells 1+ (5-14) /OIF
[2024-04-11 15:25] LABS: Procalcitonin 0.04 ng/mL
[2024-04-11 15:27] LABS: RBC Morphology NOTED
[2024-04-11 15:28] LABS: Microcytosis 1+ (5-14) /OIF; Platelet Estimate NORMAL (NORMAL)
[2024-04-11 15:29] LABS: Platelet Morphology Comment NORM
[2024-04-11 15:35] LABS: Macrocytosis 1+ (5-14) /OIF
[2024-04-11] MEDS: cefEPime HCl 1 GM in 0.9 % Sodium Chloride 50 ML IV (16:23)
[2024-04-11] MEDS: 0.9 % Sodium Chloride 1,000 ML 999 ML IV ×2 (16:23)
[2024-04-11] MEDS: Naloxone HCl 0.4 MG/ML VIAL IVPUSH (16:56)
--- NOTE | 2024-04-11 16:56 | PC.NURSE ---
bp noted to be soft, narcan given viA iv per MAR
[2024-04-11] MEDS: Hydrocortisone Sod Succ/PF 100 MG VIAL IVPUSH (17:01)
[2024-04-11] MEDS: iohexoL 350 MG/ML 100 ML INFUS..BTL IV (18:15)
--- NOTE | 2024-04-11 20:35 | PC.NURSE ---
patient ambulated with walker with slow steady gait. Walker to bathroom without complications. Patient and RN emptied patients Ostomy bag which had a large amount of loose soft stool. Patient stated has no pain and no complaints. Patient at bedside.
== END 2024-04-11 20:59 | disposition home or self-care (01) ==
PROVIDERS: Emergency Medicine; Emergency Provider Internal Medicine; PCP Internal Medicine
DX: R41.82 Altered mental status, unspecified (principal); D72.825 Bandemia; J44.9 Chronic obstructive pulmonary disease, unspecified; I25.10 Atherosclerotic heart disease of native coronary artery without angina pectoris; R11.2 Nausea with vomiting, unspecified; R06.02 Shortness of breath; M54.2 Cervicalgia; R51.9 Headache, unspecified; I10 Essential (primary) hypertension; Z03.818 Encounter for observation for suspected exposure to other biological agents ruled out; Z99.81 Dependence on supplemental oxygen; Z79.899 Other long term (current) drug therapy; Z87.891 Personal history of nicotine dependence; Z79.01 Long term (current) use of anticoagulants; Z51.81 Encounter for therapeutic drug level monitoring
CPT/HCPCS: 0241U; 36415; 51701; 70450; 71045; 71275; 72125; 80048; 80076; 80164; 80307; 81003; 82140; 82550; 82803; 82947; 83605; 83690; 83735; 83880; 84145; 84484; 85007; 85027; 85610; 86140; 87040; 93005; 96361; 96374; 96375; 99285; J0692; J1720; J2310; Q9967

== ENCOUNTER → 2024-04-11 14:11 | Outpatient (BNV) | payer MEDICARE, MEDICAID, SELFPAY | PROVIDERS: Emergency Provider Internal Medicine; PCP Internal Medicine; Visit Provider Internal Medicine Cardiovascular Disease | DX: R41.82 Altered mental status, unspecified (principal) | CPT/HCPCS: 93010 ==

== ENCOUNTER → 2024-04-11 14:11 | Outpatient (BNV) | payer MEDICARE, MEDICAID, SELFPAY | PROVIDERS: Emergency Provider Emergency Medicine; PCP Internal Medicine; Visit Provider Radiology Diagnostic Radiology | DX: R53.1 Weakness (principal) | CPT/HCPCS: 71045 ==

== ENCOUNTER 2024-04-14 13:27 | Inpatient (IN) | payer MEDICARE, MEDICAID, SELFPAY ==
--- NOTE | ~2024-04-14 | MR_ITS ---
EXAMINATION: MR BRAIN WITHOUT CONTRAST CLINICAL INFORMATION: Change in mental status. COMPARISON: MRI dated August 26, 2022. Correlated to CT brain dated April 11, 2024. TECHNIQUE: MRI of the brain was obtained using routine sequences without contrast. FINDINGS: No restricted diffusion. No acute intracranial hemorrhage, mass effect, midline shift, hydrocephalus or herniation. Duncan-white matter differentiation is normal. Bilateral multifocal patchy deep periventricular white matter hyperintense T2 FLAIR signal involving centrum semiovale and swenson radiata. Posterior cranial fossa contents demonstrated no acute intracranial hemorrhage or mass effect. Flow-void signal within the main cerebral vessels is normal. Sellar/suprasellar region demonstrated no gross masses or signal abnormality. Craniocervical junction is intact and normal. Midline structures are normal. Polypoid right maxillary sinus disease. MR/MR head/brain wo con IMPRESSION: No acute ischemia or acute brain abnormality. Small vessel occlusive disease. Electronically signed by: Turner Giang MD 04/16/2024 03:09 PM [facility]
--- NOTE | ~2024-04-14 | XR_ITS ---
EXAMINATION: XR ABDOMEN KUB CLINICAL INDICATION: MRI screening. COMPARISON: CT abdomen and pelvis from 03/26/2024. TECHNIQUE: AP view of the abdomen. FINDINGS: Instrumented posterior fusion of L4-S1 with bilateral paired interpedicular screws. Disc spacers in place at L4-L5 and L5-S1. Surgical clips in the right upper abdominal quadrant Nonobstructive bowel gas pattern. Gas and stool demonstrated throughout the entirety of the colon, including the rectum. No dilated loops of small bowel are demonstrated. No abnormal abdominal calcifications demonstrated. No evidence of visceromegaly. No acute osseous abnormalities demonstrated. The visualized lung bases are clear. XR/XR KUB IMPRESSION: 1. No unexpected radiopaque foreign bodies. 2. Instrumented posterior fusion of L4-S1. Disc spacers in place at L4-L5 and L5-S1. 3. Nonobstructive bowel gas pattern. Electronically signed by: Javi Villafana DO 04/15/2024 09:03 PM [facility]
--- NOTE | ~2024-04-14 | XR_ITS ---
EXAMINATION: XR SKULL CLINICAL INFORMATION: MRI screening for metal. COMPARISON: CT head from 04/11/2024. TECHNIQUE: 2 views of the skull (AP and lateral). FINDINGS: No demonstrated radiopaque metal in the regions of the orbits. No evidence of acute fracture of the osseous calvarium. Mucosal thickening of the maxillary sinuses. Otherwise, the paranasal sinuses remain aerated. The patient is edentulous. XR/XR skull <4V IMPRESSION: No demonstrated radiopaque metal in the regions of the orbits. Electronically signed by: Javi Villafana DO 04/15/2024 08:58 PM EST
--- NOTE | ~2024-04-14 | XR_ITS ---
EXAMINATION: XR CHEST CLINICAL INFORMATION: Acute mental status change COMPARISON: April 11, 2024 TECHNIQUE: Frontal view of the chest was obtained. FINDINGS: No significant abnormality is noted involving the heart, lungs, mediastinum, bony thorax or soft tissues. XR/XR chest 1V IMPRESSION: Unremarkable examination, without interval change. Electronically signed by: Ramo Ferguson MD 04/14/2024 03:41 PM [facility]
[2024-04-14 13:36] VITALS: BP 148/72; BP 170/90; PULSE 70; PULSE 78; RESP 18; TEMP 36.7; O2SAT 96; O2SAT 98; BMI 30.9
--- NOTE | 2024-04-14 14:33 | ECG_ITS ---
Test Reason : AMS Blood Pressure : / mmHG Vent. Rate : 079 BPM Atrial Rate : 079 BPM P-R Int : 146 ms QRS Dur : 088 ms QT Int : 392 ms P-R-T Axes : 059 029 027 degrees QTc Int : 449 ms Normal sinus rhythm Normal ECG When compared with ECG of 11-APR-2024 14:44, No significant change was found Referred By: Kristen Moya Electronically Signed By:Soto Jaquez
--- NOTE | 2024-04-14 15:19 | ED_ITS ---
HPI - General Adult General Chief complaint: General Medical Stated complaint: AMS Time Seen by Provider: 04/14/24 14:24 Source: patient, EMS, RN notes reviewed and old records reviewed Mode of arrival: EMS History of Present Illness ED Provider: Kristen Moya PA-C HPI narrative: 58-year-old female with a past medical history of depression, anemia, sigmoid adenocarcinoma with colostomy, CAD, opiate abuse, GERD, proximal AFib on Eliquis, CHF, COPD on 2 L home O2, HTN, HLD, CHF, presenting to the ED via EMS for altered mental status, leaking ostomy bag, and increasing depression. Denies SI/HI. Patient denies other complaints at present including abdominal pain, nausea, vomiting, CP/SOB, dysuria/hematuria, falls or injury. Of note patient was evaluated in our facility on 04/11/2024 for acute altered mental status/encephalopathy suspected secondary to medication abuse of Klonopin and Tramadol. Remaining history limited due to patient's altered mental status. Unable to get hold of Related Data Home Medications ?Medication ?Instructions ?Recorded ?Confirmed blood pressure monitor #1 ea 10/22/20 04/09/24 blood pressure test kit-large #1 ea 10/22/20 04/09/24 docusate sodium 100 mg capsule 100 mg PO BID PRN constipation 09/21/21 04/09/24 Previous Rx's ?Medication ?Instructions ?Recorded nystatin 100,000 unit/gram topical 1 appl topical DAILY PRN rash #30 09/18/22 cream grams divalproex 500 mg tablet,extended 500 mg PO DAILY #90 tabs 02/01/23 release 24 hr olanzapine 5 mg disintegrating 5 mg PO DAILY #30 tabs 03/22/23 tablet ubrogepant 100 mg tablet (Ubrelvy) 50 - 100 mg (0.5 - 1 x 100 mg) PO 07/05/23 ONCE PRN migraine headache 30 days #16 tabs fenofibrate nanocrystallized 48 mg 48 mg PO DAILY #30 tabs 09/15/23 tablet umeclidinium 62.5 mcg/actuation 1 inh inhalation DAILY #30 ea 09/20/23 blister powder for inhalation (Incruse Ellipta) mercedez (Ultra-Light Rollator misc) #1 ea 09/29/23 alprazolam 0.5 mg tablet 0.5 mg PO DAILY #2 tabs 10/11/23 ondansetron 8 mg disintegrating 8 mg PO Q8H #30 tabs 11/03/23 tablet Magic Mouthwash 10 ml PO QID #240 mL 11/27/23 Diphen/Lido/Antacid 1:1:1 240 mL suspension loperamide 2 mg capsule (Imodium 2 mg PO Q6H PRN Diarrhea #60 caps 12/05/23 A-D) nystatin 100,000 unit/gram topical 1 appl topical BID 30 days #30 12/11/23 powder grams dexamethasone 4 mg tablet 4 mg PO BID #60 tabs 12/13/23 metoprolol succinate 50 mg 50 mg PO QAM #90 tabs 01/06/24 tablet,extended release 24 hr ferrous sulfate 325 mg (65 mg 325 mg PO BID #60 tabs 01/16/24 iron) tablet (FeroSul) fluticasone furoate 100 1 inh inhalation DAILY #60 ea 01/16/24 mcg-vilanterol 25 mcg/dose inhalation powder (Breo Ellipta) diltiazem HCl 240 mg 240 mg PO DAILY #60 caps 01/21/24 capsule,extended release 24 hr (Cardizem CD) diphenoxylate-atropine 2.5 1 tab PO BID PRN Diarrhea #30 tabs 02/19/24 mg-0.025 mg tablet (Lomotil) omeprazole 20 mg capsule,delayed 20 mg PO BID #60 caps 03/04/24 release Tub ledge vertical grab bar/ not #1 ea 03/06/24 suction bar. clonazepam 1 mg tablet 1 mg PO BID 30 days #60 tabs 03/18/24 amitriptyline 25 mg tablet 25 mg PO BEDTIME #30 tabs 03/31/24 apixaban 5 mg tablet (Eliquis) 5 mg PO BID #60 tabs 03/31/24 atorvastatin 80 mg tablet 80 mg PO BEDTIME #30 tabs 03/31/24 duloxetine 60 mg capsule,delayed 60 mg PO BEDTIME #30 caps 03/31/24 release hydralazine 50 mg tablet 50 mg PO TID #90 tabs 03/31/24 prednisone 20 mg tablet 40 mg (2 x 20 mg) PO DAILY #8 tabs 04/02/24 tizanidine 2 mg tablet 2 mg PO BEDTIME PRN muscle 10/29/24 spasticity #7 tabs riboflavin (vitamin B2) 400 mg 400 mg PO DAILY 30 days #30 tabs 04/04/24 tablet divalproex 500 mg tablet,extended 1,000 mg (2 x 500 mg) PO QPM 90 04/08/24 release 24 hr days #180 tabs metoclopramide HCl 10 mg tablet 10 mg PO Q6H PRN Nausea #30 tabs 04/08/24 fenofibrate 160 mg tablet 160 mg PO DAILY 90 days #90 tabs 04/09/24 tramadol 50 mg tablet 50 mg PO Q8H PRN pain 7 days #21 04/09/24 tabs ondansetron 8 mg disintegrating 8 mg PO Q8H PRN Nausea vomiting 04/10/24 tablet #30 tabs potassium chloride 20 mEq 20 meq PO DAILY #30 tabs 04/10/24 tablet,extended release (K-Tab) lactulose 10 gram/15 mL (15 mL) 10 g (15 mL) PO DAILY PRN high 04/11/24 oral solution ammonia #600 mL Allergies Allergy/AdvReac Type Severity Reaction Status Date / Time Penicillins Allergy Mild Rash Verified 04/14/24 13:39 venlafaxine [From Effexor] Allergy Mild Rash Verified 04/14/24 13:39 cyclobenzaprine Allergy Unknown Unknown Verified 04/14/24 13:39 [Cyclobenzaprine] topiramate [From Topamax] Allergy Unknown Unknown Verified 04/14/24 13:39 levofloxacin [From Levaquin] AdvReac Severe Diarrhea Verified 04/14/24 13:39 Sulfa (Sulfonamide AdvReac Severe Diarrhea Verified 04/14/24 13:39 Antibiotics) fentanyl [FENTANYL] AdvReac Intermediate Hallucinati Verified 04/14/24 13:39 ons Review of Systems 2 Review of Systems: Yes all other systems are reviewed and are negative Constitutional: Constitutional: Reports as per HPI Neurologic: Denies Abnormal speech present PMFSH Past Medical History Attestation statement: The following information was validated with the patient. Source: old records reviewed Medical History Smoker Chronic back pain Colostomy in place (~2020) Personal history of nicotine dependence Polysubstance (including opioids) dependence, binge pattern Atrial fibrillation with rapid ventricular response Congestive heart failure Restrictive lung disease COPD (chronic obstructive pulmonary disease) No natural teeth COVID-19 vaccine series completed History of COVID-19 (~04/2020) Oxygen dependent Pericardial effusion Other and unspecified hyperlipidemia Essential hypertension Peripheral vascular disease Preoperative cardiovascular examination Bilateral pneumonia Adenocarcinoma of sigmoid colon (~2020) Hypernatremia GI bleed UTI (urinary tract infection) Pleural effusion, left Colon cancer (~2020) IVY (obstructive sleep apnea) Cancer of lower lobe of left lung (~2020) GERD (gastroesophageal reflux disease) Acute and chronic respiratory failure Lung cancer Obesity Hypoventilation associated with obesity Obesity hypoventilation syndrome Respiratory failure with hypoxia and hypercapnia Rotator cuff strain Hypoxia Pneumonia Restless legs syndrome (RLS) Sleep disorder Bipolar disorder (~2009) Back pain with history of spinal surgery Renal failure Fibromyalgia Depression High cholesterol PTSD (post-traumatic stress disorder) CAD (coronary artery disease) HTN (hypertension) Surgical History History of partial colectomy (~12/2020) History of cardiac cath (~2010) History of hysterectomy (~1990) History of cholecystectomy History of appendectomy (~1982) History of colonoscopy (~08/2020) History of lobectomy of lung (~08/2020) History of esophagogastroduodenoscopy (EGD) History of bunionectomy (~1977) History of back surgery Family History Family History Maternal Aunt Breast cancer Stroke COPD (chronic obstructive pulmonary disease) Maternal Aunt Breast cancer COPD (chronic obstructive pulmonary disease) Mother Uterine cancer COPD (chronic obstructive pulmonary disease) HTN (hypertension) Heart disease Mental health disorder Maternal Uncle Stroke Paternal Grandmother Heart attack Parkinsons disease Sister Diabetes IBS (irritable bowel syndrome) Son HTN (hypertension) Substance use disorder Daughter HTN (hypertension) Father HTN (hypertension) Brother Heart disease Family/Other Mental health disorder Social History Social History Household Members: Spouse Housing: House Are you a primary hearing healthcare practitioner to a significant other at home: No Do you presently have visiting nurse or other home services: Yes Alcohol intake: never Comment: pt sleeping Patient Tobacco Use Status: Former Tobacco user Tobacco use type: Cigarette Cigarettes Per Day: 4 Years Smoked: 40 Smoked in Last 30 Days: No e-Cigarette/Vaping Use: Never Used Second Hand Smoke Exposure: Yes Use of substances other than those prescribed or required for medical reasons: No Advance Directives: No Advance Directives Information Provided: No Advance Directives Date on File: 10/05/22 Do you have a plan to hurt others: No Plan Patient : No service: No Current occupational status: unemployed and disabled Cognitive needs: Yes (walker ) Hearing needs: No Vision needs: No Physical Exam ED Vital Signs: Vital Signs - 24 hr 04/14/24 13:36 Temperature 98.0 F Pulse Rate 78 Respiratory Rate 18 Blood Pressure 170/90 H Pulse Oximetry 96 Oxygen Delivery Method Room Air BMI result Body Mass Index 30.9 Const General: cooperative and no acute distress Orientation/consciousness: oriented to person and oriented to place HENMT Head: Yes normal to inspection and Yes atraumatic Ears: hearing grossly normal bilaterally General nose exam: Normal external nose present Face and sinus: Yes normal facial exam Eyes General: appearance normal, both eyes and all related structures EOM: EOMs intact bilaterally Neck Neck: Yes normal visual inspection and Yes no meningeal signs Resp Effort & Inspection: normal respiratory effort and no respiratory distress Auscultation: clear to auscultation bilaterally Cardio Rate: regular rate Heart sounds: S1 normal heart sound present and S2 normal heart sound present GI Other: Ostomy noted to lower abdomen without signs of infection. Stool was leaking from bag Inspection: Yes normal to inspection Palpation (GI): Soft to palpation, nontender, no guarding and not rigid Skin Rashes: no rashes Wounds: no wounds Neuro General: oriented to person, oriented to place, tone normal, moves all extremities, no meningeal signs, no focal motor deficits and CN's II-XI intact bilaterally Cranial nerves: Yes CN's II-XII intact bilaterally Speech: No Abnormal speech present Motor exam (neuro): 5/5 motor strength present throughout Extrem General: Yes normal to inspection Course Course Course Narrative: Attempted to contact however unable to get in contact with him. -1552--no leukocytosis. H&H at patient's baseline XR chest 1V IMPRESSION: Unremarkable examination, without interval change. -1400-- now in emergency department, providing more history, states patient increasingly emotional today, was lying in kitchen naked crying, and states last night was talking out the window to someone named Iván however they do not know anybody named Iván. admits patient's confusion has been x awhile & is not new, however has been worsening. Report patient finished chemotherapy 3 weeks ago, is now cancer free. Reports increasing stressors since son passed in August. -troponin 7.1 > will obtain repeat -1630--ED care transferred to [facility] pending remaining labs, UA/tox screen and CARE team consult Medical Decision Making Medical Decision Making MDM Narrative: 58-year-old female with a past medical history of depression, anemia, sigmoid adenocarcinoma with colostomy, CAD, opiate abuse, GERD, proximal AFib on Eliquis, CHF, COPD on 2L home O2, HTN, HLD, CHF, presenting to the ED via EMS for altered mental status, leaking ostomy bag, and increasing depression. On exam vital signs stable, A&O x2, no evidence of trauma, no focal neuro deficits, ostomy without acute infection, bag needs to be changed. Concern for encephalopathy vs opiate abuse/misuse. Lower suspicion for CVA/TIA or ICH. Rule out metabolic infectious etiologies. Low suspicion for severe sepsis Patient recent head/C-spine CT and CTA No need to repeat head CT at this time Plan: Labs, UA, tox screen, CXR, CARE team consult Please refer to course for remaining clinical decision making, interpretation of labs/imaging results, and discussions with consultants and/or family members. Differential Diagnosis Differential Diagnoses: The differential diagnosis associated with the presentation includes As above Admission/Observation Consideration of admission/observation: Escalation of care including admission/observation considered Consult Healthcare Provider Management of the patient was discussed with: Behavioral Health Provider Lab Data [facility] Lab Attestation statement: I reviewed the patient's lab results. 04/14/24 15:21 04/14/24 15:21 Labs: Lab Results 04/14/24 04/14/24 Range/Units 15:21 15:26 WBC 8.7 (4.8-10.8) X10*3/uL RBC 3.53 L (4.20-5.50) X10*6/uL Hgb 11.8 L (12.0-16.0) g/dl Hct 36.4 L (37.0-47.0) % MCV 103.1 H (80.0-98.0) fL MCH 33.4 H (27.0-33.0) pg MCHC 32.4 (31.0-35.0) g/dl RDW 18.4 H (11.0-16.0) % Plt Count 256 (160-400) X10*3/uL MPV 10.1 (9.4-12.3) fL Absolute Nucleated RBC 0.000 (0.0-0.012) X10*3/uL Nucleated RBC % (auto) 0.0 (0.0-0.2) /100WBC Neutrophils % (Manual) 53 (45-73) % Band Neutrophils % 1 L (3-5) % Lymphocytes % (Manual) 27 (20-40) % Monocytes % (Manual) 17 H (2-11) % Basophils % (Manual) 2 (0-2) % Abs Neuts (Manual) 4.7 (2.0-8.3) X10*3/uL Lymphocytes # (Manual) 2.3 (1.2-4.9) X10*3/uL Monocytes # (Manual) 1.5 H (0.1-1.2) X10*3/uL Basophils # (Manual) 0.2 (0.0-0.2) X10*3/uL Platelet Estimate NORMAL (NORMAL) Plt Morphology Comment NORMAL RBC Morphology NORMAL PT 10.6 L (10.9-12.4) SEC INR 0.9 (0.9-1.1) VBG pH 7.50 H (7.32-7.43) VBG pCO2 32 mmHg VBG pO2 110 mmHg VBG HCO3 25 (22-26) mmol/L VBG O2 Saturation 97.0 % VBG Base Excess 2.7 mmol/L Sodium 146 H (135-145) mmol/L Potassium 4.3 (3.3-5.1) mmol/L Chloride 108 (96-108) mmol/L Carbon Dioxide 25 (22-29) mmol/L Anion Gap 17 (12-20) BUN 8 L (9-16) mg/dL Creatinine 0.71 (0.5-1.4) mg/dL Estim Creat Clear Calc 87.0 Estimated GFR > 60 Random Glucose 86 (60-115) mg/dL Calcium 9.9 D (8.4-10.2) mg/dL Magnesium 2.0 (1.6-2.6) mg/dL Total Bilirubin 0.5 (0.0-1.0) mg/dL Direct Bilirubin 0.2 (0.0-0.5) mg/dL AST 27 (5-31) U/L ALT 6 (0-31) U/L Alkaline Phosphatase 62 (39-117) U/L Ammonia 37 (13-55) umol/L Total Creatine Kinase 25 L (26-140) U/L Troponin I High Sens 7.1 D (<3.5-17.0) ng/L Total Protein 6.5 (6.5-8.0) g/dL Albumin 3.7 (3.5-5.0) g/dL Ethyl Alcohol < 10 mg/dL COVID-19 (ANA) Negative (Negative) COVID-19 Clin Com See Note Influenza Type A (CARLY) Negative (Negative) Influenza Type B (CARLY) Negative (Negative) Influenza A & B Note See Note Independent Interpretation I performed an independent interpretation of an: Plain X-Ray Radiology Impression Discussion of test interpretation with radiology: I have reviewed the radiologist's reading. Independent Historian Clinical information obtained from an independent historian. History obtained from or confirmed by: EMS External Record Review External record reviewed: Inpatient record, Office record, Outpatient record, Prior outpatient labs, Prior outpatient radiology, Primary care record and Outside ED record Tests considered The following testing was considered but not selected: As above Chronic Conditions Patient?s care impacted by: Other Social Determinants Patient?s care significantly limited by Social Determinants of Health including: Alcoholism and drug addiction in family, Problems related to primary support group and Other Social Determinant of Health Discharge Plan Discharge Clinical Impression: Depression, Chronic confusion Patient Disposition: Still a Patient Prescriptions: No Action nystatin 100,000 unit/gram cream 1 appl topical DAILY PRN (Reason: rash) Qty: 30 0RF divalproex 500 mg tablet extended release 24 hr 500 mg PO DAILY Qty: 90 1RF Ubrelvy 100 mg tablet 50 - 100 mg PO ONCE PRN (Reason: migraine headache) 30 Days Qty: 16 3RF Rx Instructions: take at onset of migraine, may repeat in 2hrs (may take w/ Ibuprofen) fenofibrate nanocrystallized 48 mg tablet 48 mg PO DAILY Qty: 30 2RF Incruse Ellipta 62.5 mcg/actuation blister with device 1 inh inhalation DAILY Qty: 30 11RF (DME) Ultra-Light Rollator Misc See Rx Instructions .Route Qty: 1 0RF Rx Instructions: As directed loperamide [Imodium A-D] 2 mg Capsule 2 mg PO Q6H PRN (Reason: Diarrhea) Qty: 60 3RF nystatin 100,000 unit/gram powder 1 appl topical BID 30 Days Qty: 30 0RF metoprolol succinate 50 mg tablet extended release 24 hr 50 mg PO QAM Qty: 90 1RF fluticasone furoate-vilanterol [Breo Ellipta] 100-25 mcg/dose blister with device 1 inh INHALATION DAILY Qty: 60 3RF ferrous sulfate [FeroSul] 325 mg (65 mg iron) tablet 325 mg PO BID Qty: 60 3RF diltiazem HCl [Cardizem CD] 240 mg capsule,extended release 24hr 240 mg PO DAILY Qty: 60 1RF omeprazole 20 mg capsule,delayed release(DR/EC) 20 mg PO BID Qty: 60 2RF (DME) Tub ledge vertical grab bar/ not suction bar. See Rx Instructions .Route .MEDSUPPLY Qty: 1 0RF Rx Instructions: As directed clonazepam 1 mg tablet 1 mg PO BID 30 Days Qty: 60 0RF amitriptyline 25 mg tablet 25 mg PO BEDTIME Qty: 30 1RF atorvastatin 80 mg tablet 80 mg PO BEDTIME Qty: 30 1RF hydralazine 50 mg tablet 50 mg PO TID Qty: 90 1RF duloxetine 60 mg capsule,delayed release(DR/EC) 60 mg PO BEDTIME Qty: 30 1RF Eliquis 5 mg tablet 5 mg PO BID Qty: 60 1RF riboflavin (vitamin B2) 400 mg tablet 400 mg PO DAILY 30 Days Qty: 30 6RF divalproex 500 mg tablet extended release 24 hr 1,000 mg PO QPM 90 Days Qty: 180 2RF metoclopramide HCl 10 mg Tablet 10 mg PO Q6H PRN (Reason: Nausea) Qty: 30 1RF fenofibrate 160 mg tablet 160 mg PO DAILY 90 Days Qty: 90 0RF olanzapine 5 mg Tablet,Disintegrating 5 mg PO DAILY Qty: 30 0RF alprazolam 0.5 mg Tablet 0.5 mg PO DAILY Qty: 2 0RF Rx Instructions: Take 1 tablet 1 hour before procedure, may repeat 1/2 hour before if necessary ondansetron 8 mg Tablet,Disintegrating 8 mg PO Q8H Qty: 30 4RF Magic Mouthwash Diphen/Lido/Antacid 1:1:1 240 mL Suspension 10 ml PO QID Qty: 240 3RF Rx Instructions: Lidocaine Viscous 2 % 80mL; diphenhydramine 12.5 mg/5 mL 80mL; aluminum-mag hydrox-simeth [id number]/5mL 80mL dexamethasone 4 mg Tablet 4 mg PO BID Qty: 60 3RF Rx Instructions: Take 4 mg p.o. b.i.d. for 2 days starting day after chemo, Q 2 weekly. diphenoxylate-atropine [Lomotil] 2.5-0.025 mg Tablet 1 tab PO BID PRN (Reason: Diarrhea) Qty: 30 0RF ondansetron 8 mg Tablet,Disintegrating 8 mg PO Q8H PRN (Reason: Nausea vomiting) Qty: 30 3RF potassium chloride [K-Tab] 20 mEq Tablet Extended Release 20 meq PO DAILY Qty: 30 0RF lactulose 10 gram/15 mL (15 mL) solution 10 g PO DAILY PRN (Reason: high ammonia) Qty: 600 0RF (DME) blood pressure test kit-large Kit See Rx Instructions .ROUTE DIRECTED Qty: 1 Rx Instructions: As directed (DME) blood pressure monitor Kit See Rx Instructions .ROUTE .MEDSUPPLY Qty: 1 Rx Instructions: As directed docusate sodium 100 mg capsule 100 mg PO BID PRN (Reason: constipation) tramadol 50 mg tablet 50 mg PO Q8H PRN (Reason: pain) 7 Days Qty: 21 0RF tizanidine 2 mg tablet 2 mg PO BEDTIME PRN (Reason: muscle spasticity) Qty: 7 0RF prednisone 20 mg tablet 40 mg PO DAILY Qty: 8 0RF Print Language: Estonian
[2024-04-14 15:30] LABS: Hematocrit 36.4 % (37.0-47.0); Hemoglobin 11.8 g/dl (12.0-16.0); Mean Corpuscular HGB Conc 32.4 g/dl (31.0-35.0); Mean Corpuscular Hemoglobin 33.4 pg (27.0-33.0); Mean Corpuscular Volume 103.1 fL (80.0-98.0); Mean Platelet Volume 10.1 fL (9.4-12.3); Platelet Count 256 X10*3/uL (160-400); Red Blood Count 3.53 X10*6/uL (4.20-5.50); Red Cell Distribution Width 18.4 % (11.0-16.0); White Blood Count 8.7 X10*3/uL (4.8-10.8)
[2024-04-14 15:31] LABS: VBG Base Excess 2.7 mmol/L; VBG HCO3 25 mmol/L (22-26); VBG pCO2 32 mmHg; VBG pO2 110 mmHg
[2024-04-14 15:38] LABS: Venous Blood Gas Refer to POC result
[2024-04-14 15:39] LABS: Ammonia 37 umol/L (13-55); INTERNATIONAL NORM RATIO 0.9 (0.9-1.1); Prothrombin Time 10.6 SEC (10.9-12.4)
[2024-04-14 15:42] LABS: COVID-19 Test Negative (Negative); IDNOW Serial# 08D9AD1C
[2024-04-14 15:45] LABS: IDNOW Serial# 152EDE1D; Influenza A Negative (Negative); Influenza B2 Negative (Negative)
[2024-04-14 15:51] LABS: Alanine Aminotransferase 6 U/L (0-31); Albumin Level 3.7 g/dL (3.5-5.0); Alkaline Phosphatase 62 U/L (39-117); Anion Gap 17 (12-20); Aspartate Amino Transferase 27 U/L (5-31); Bilirubin Direct 0.2 mg/dL (0.0-0.5); Blood Urea Nitrogen 8 mg/dL (9-16); Calcium 9.9 mg/dL (8.4-10.2); Carbon Dioxide 25 mmol/L (22-29); Chloride 108 mmol/L (96-108); Estimated Glomerular Filt Rate > 60; Ethanol < 10 mg/dL; Glucose Random 86 mg/dL (60-115); Potassium 4.3 mmol/L (3.3-5.1); Sodium 146 mmol/L (135-145); Total Protein 6.5 g/dL (6.5-8.0)
[2024-04-14 15:53] LABS: Band Neutrophils Percent 1 % (3-5); Basophils Abs Manual 0.2 X10*3/uL (0.0-0.2); Basophils Percent Manual 2 % (0-2); Lymphocytes Absolute Manual 2.3 X10*3/uL (1.2-4.9); Lymphocytes Percent Manual 27 % (20-40); Monocytes Absolute Manual 1.5 X10*3/uL (0.1-1.2); Monocytes Percent Manual 17 % (2-11); Neutrophils Absolute Manual 4.7 X10*3/uL (2.0-8.3); Neutrophils Percent Manual 53 % (45-73); RBC Morphology NORMAL
[2024-04-14 15:54] LABS: Platelet Estimate NORMAL (NORMAL); Platelet Morphology Comment NORMAL
[2024-04-14 16:00] LABS: Troponin-I High Sensitivity 7.1 ng/L (<3.5-17.0)
[2024-04-14 16:10] LABS: Bilirubin Total 0.5 mg/dL (0.0-1.0)
[2024-04-14 17:39] LABS: Baso%MD 0.9 %; Eos%MD 0.5 %; IG%MD 5.5 %; Lymph%MD 28.1 %; Mono%MD 11.4 %; Neut%MD 53.6 %
[2024-04-14 18:07] VITALS: BP 167/72; PULSE 82; RESP 16; TEMP 36.6; O2SAT 96
[2024-04-14 19:05] LABS: Troponin-I High Sensitivity 6.4 ng/L (<3.5-17.0)
[2024-04-14 20:57] VITALS: BP 177/72; PULSE 75; RESP 18; TEMP 37; O2SAT 99
--- NOTE | 2024-04-14 20:57 | MHC.EDTECH ---
This tech took over care of patient at 1900,rounded and introduced self to pt,vitals taken,BP is elevated,RN was made aware,upon entry to room patient was oob and trying to leave,PA/RN at bedside,pt was agreeable to stay,pillow and warm blanket given,pt thought she had her cellphone,pt doesn't have one with her belongings list completed,copy placed in chart,call manley in reach
--- NOTE | 2024-04-14 21:09 | MHC.EDTECH ---
Patient was given a chicken salad sandwich and cup of gingerale,pt sitting up eating at this time
--- NOTE | 2024-04-14 23:36 | PC.NURSE ---
Patient out of bed to bathroom, voided urine in toilet, wasn't able to catch urine for specimen collection. Provider aware.
--- NOTE | 2024-04-14 23:40 | PC.NURSE ---
Colostomy bag emptied into toilet, liquid stool. Colostomy bag re-sealed.
[2024-04-14 23:51] VITALS: BP 160/67; PULSE 86; RESP 16; TEMP 36.6; O2SAT 96
--- NOTE | 2024-04-14 23:52 | MHC.EDTECH ---
This pct assumed care of Patient at 2350 ,vitals taken ,Patient awaking in happy mood smiling and Socializing with staff ,Patient had some gingerale for snack .
[2024-04-15] VITALS (13 sets, daily range): BP systolic 109–188; BP diastolic 68–96; PULSE 111–144; RESP 16–24; TEMP 36.7–38.2; O2SAT 94–96
--- NOTE | 2024-04-15 00:11 | PC.NURSE ---
Patient requested that this RN call her (Allen) to have him come to the hospital and bring her coffee and doughnuts. Left voicemail with phone number on file, with number to call back.
[2024-04-15] MEDS: OLANZapine 5 MG TABLET PO (02:47)
--- NOTE | 2024-04-15 03:59 | PC.NURSE ---
pt straight cath pt 900 urine out, colostomy bag emptied.
[2024-04-15 04:03] LABS: Appearance Urine Clear; Color Urine Yellow; Glucose Urine UA Negative (Negative); Leukocyte Esterase Urine Negative (Negative); Nitrite Urine Negative (Negative); Urine Blood Negative (Negative); Urine Ketones Negative (Negative); Urine Protein Trace mg/dL (Neg-Trace)
[2024-04-15 04:13] LABS: Amphetamine Screen Urine Not Detected (Not Detect); Barbiturates, Urine Not Detected (Not Detect); Benzodiazepines Screen Urine Not Detected (Not Detect); Buprenorphine Scr Not Detected (Not Detect); Cannabinoid Screen Urine Not Detected (Not Detect); Cocaine Screen Urine Not Detected (Not Detect); Fentanyl, urine Not Detected (Not Detect); Methadone Screen, Urine Not Detected (Not Detect); Opiate Screen Urine Not Detected (Not Detect); Oxycodone Screen Urine Not Detected (Not Detect); Phencyclidine Screen Urine Not Detected (Not Detect)
--- NOTE | 2024-04-15 05:08 | PC.NURSE ---
Pt confused re-directed mulitple time, pt refusing po medication. reposition several times.
--- NOTE | 2024-04-15 09:53 | PC.NURSE ---
Pt bladder scanned and noted to have >880mL, this RN took pt to bathroom where pt attempted to void but could not. Was able to empty her ostomy bag. Provider aware, pt straight cath with an output of 975 mL of urine.
[2024-04-15] MEDS: OLANZapine 10 MG VIAL IM (12:56)
[2024-04-15] MEDS: Midazolam HCl/PF 2 MG/2 ML VIAL 4 MG IM (14:16)
--- NOTE | 2024-04-15 14:17 | PHA.MEDREC ---
Addendum entered by Dina Nash RPh 04/15/24 14:27: reviewed by [facility]. Original Note: Pharmacy Consult ? Medication Reconciliation Pharmacy has completed the medication reconciliation. Spoke to over the phone to confirm med list. stated he doesn't have a list of patient medications with him. He told me to call [facility] . called [facility] can was able to confirm med list.
--- NOTE | 2024-04-15 14:50 | PC.NURSE ---
Late entry: pt increasingly agitated and aggressive, swinging arms and trying to get out of bed. Pt required 2 IM meds at separate intervals, see MAR. Pt was unable to be directed, very confused. 1:1 sitter remained and pt monitored.
--- NOTE | 2024-04-15 15:07 | PC.NURSE ---
Pt less agitated at this time, smiling and conversating with sitter. Bladder scan done.
--- NOTE | 2024-04-15 15:41 | P.CNPS_ITS ---
History of Present Illness Date of Service: 04/15/2024 Chief Complaint: AMS Requesting physician: Angelita Can Discussed with referring provider: Yes Sources of Information: patient interviewed, chart reviewed and crisis/core team assessment reviewed HPI Narrative: is a 58 year-old woman who was brought by due to increase confusion, hallucinations talking to someone who was not there and appeared paranoid. It appears she has been presenting as more confused, with hallucinations for the past 3 weeks. Per family, no prior hx of psychosis. Memory problems/concerns have been ongoing for past year. But per family this presentation which is combination of some confusions, psychosis is new for the past 3-4weeks. 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 Labs in the ED included cbc with macrocytic anemia, CMP with slightly elevated Na 146, BUN 7, Cr 0.71, creatinine clearance of 87. LFTs are wnl. Ammonia on 04/14/[address] did not show any acute findings. Psychiatry asked to assess pt with question of chemo induced psychosis. Pt seen in the ED. He has attempted to grab staff, combative at times. She tells me she is here because she is overwhelmed. He reports someone changed my medications, when asked which medications, she states I don't know. She appears somewhat suspicious. She does know that she is at [facility]. She knows the month April and the , not the date. His orientation as to situation seems impaired in that she reports she is here because she is overwhelmed because someone changed his medications, does not know who and wonders if staff here is involved. [facility] Medical History (Updated 04/19/24 @ 12:49 by Zac Marques MD) Smoker Chronic back pain Colostomy in place (~2020) Personal history of nicotine dependence Polysubstance (including opioids) dependence, binge pattern Atrial fibrillation with rapid ventricular response Congestive heart failure Restrictive lung disease COPD (chronic obstructive pulmonary disease) No natural teeth COVID-19 vaccine series completed History of COVID-19 (~04/2020) Oxygen dependent Pericardial effusion Other and unspecified hyperlipidemia Essential hypertension Peripheral vascular disease Preoperative cardiovascular examination Bilateral pneumonia Adenocarcinoma of sigmoid colon (~2020) Hypernatremia GI bleed UTI (urinary tract infection) Pleural effusion, left Colon cancer (~2020) IVY (obstructive sleep apnea) Cancer of lower lobe of left lung (~2020) GERD (gastroesophageal reflux disease) Acute and chronic respiratory failure Lung cancer Obesity Hypoventilation associated with obesity Obesity hypoventilation syndrome Respiratory failure with hypoxia and hypercapnia Rotator cuff strain Hypoxia Pneumonia Restless legs syndrome (RLS) Sleep disorder Bipolar disorder (~2009) Back pain with history of spinal surgery Renal failure Fibromyalgia Depression High cholesterol PTSD (post-traumatic stress disorder) CAD (coronary artery disease) HTN (hypertension) Surgical History History of partial colectomy (~12/2020) History of cardiac cath (~2010) History of hysterectomy (~1990) History of cholecystectomy History of appendectomy (~1982) History of colonoscopy (~08/2020) History of lobectomy of lung (~08/2020) History of esophagogastroduodenoscopy (EGD) History of bunionectomy (~1977) History of back surgery Diagnostics Vital Signs (24Hr): Vital Signs - 24 hr 04/14/24 18:07 04/14/24 20:57 04/14/24 23:51 Temperature 97.8 F 98.6 F 97.9 F Pulse Rate 82 75 86 Respiratory Rate 16 18 16 Blood Pressure 167/72 H 177/72 H 160/67 H Pulse Oximetry 96 99 96 Oxygen Delivery Method Room Air Room Air Room Air 04/15/24 04:06 04/15/24 06:00 04/15/24 13:00 Temperature 98.2 F 98.2 F Pulse Rate 115 H 111 H 137 H Respiratory Rate 16 16 24 H Blood Pressure 152/87 H 165/81 H 188/94 H Pulse Oximetry 96 95 96 Oxygen Delivery Method Room Air Room Air 04/15/24 13:15 04/15/24 13:30 04/15/24 13:45 Temperature Pulse Rate 130 H Respiratory Rate 24 H 22 H 24 H Blood Pressure Pulse Oximetry Oxygen Delivery Method 04/15/24 14:02 04/15/24 15:15 Temperature 98.2 F Pulse Rate 127 H 124 H Respiratory Rate 24 H 22 H Blood Pressure 186/83 H 171/96 H Pulse Oximetry 95 95 Oxygen Delivery Method Room Air Room Air BMI result Body Mass Index 30.9 Labs 04/19/24 05:30 04/19/24 05:30 Labs: Laboratory Results - last 48 hr 04/14/24 04/14/24 04/14/24 15:21 15:21 15:21 WBC 8.7 Cancelled RBC 3.53 L Cancelled Hgb 11.8 L Hct MCV MCH MCHC RDW Plt Count MPV Immature Gran % (Auto) Neut % (Auto) Lymph % (Auto) [place] % (Auto) Eos % (Auto) Baso % (Auto) Lymph # (Auto) [place] # (Auto) Eos # (Auto) Baso # (Auto) Abs Immat Gran (auto) Absolute Neuts (auto) Absolute Nucleated RBC Nucleated RBC % (auto) Neutrophils % (Manual) Band Neutrophils % Lymphocytes % (Manual) Atypical Lymphs % (Man) Monocytes % (Manual) Eosinophils % (Manual) Basophils % (Manual) Metamyelocytes % Myelocytes % Promyelocytes % Blast Cells % (Manual) Plasma Cell % (Manual) Abs Neuts (Manual) Lymphocytes # (Manual) Atyp Lymphs # (Manual) Monocytes # (Manual) Eosinophils # (Manual) Basophils # (Manual) Metamyelocytes # Myelocytes # Promyelocytes # Blast Cells # Plasma Cell # (Manual) Nucleated RBCs Hypersegmented Neuts Smudge Cells Toxic Granulation Toxic Vacuolation Dohle Bodies Haley Rods WBC Morphology Comment Platelet Estimate Large Platelets Giant Platelets Plt Morphology Comment RBC Morphology Polychromasia Hypochromasia Basophilic Stippling Microcytosis Macrocytosis Spherocytes Pappenheimer Bodies Sickle Cells Target Cells Tear Drop Cells Ovalocytes Stomatocytes [place] Bodies [place] Cells Acanthocytes (Spur) Rouleaux Schistocytes PT INR VBG pH VBG pCO2 VBG pO2 VBG HCO3 VBG O2 Saturation VBG Base Excess Sodium Potassium Chloride Carbon Dioxide Anion Gap BUN Creatinine Estim Creat Clear Calc Estimated GFR Random Glucose Calcium Magnesium Total Bilirubin Direct Bilirubin AST ALT Alkaline Phosphatase Ammonia Total Creatine Kinase Troponin I High Sens Total Protein Albumin Urine Color Urine Appearance Urine pH Ur Specific [place] Urine Protein Urine Glucose (UA) Urine Ketones Urine Blood Urine Nitrite Ur Leukocyte Esterase Urine Opiates Screen Ur Buprenorphine Scrn Ur Oxycodone Screen Urine Methadone Screen Urine Fentanyl Screen Ur Barbiturates Screen Ur Phencyclidine Scrn Ur Amphetamines Screen U Benzodiazepines Scrn Urine Cocaine Screen U Marijuana (THC) Screen Ethyl Alcohol COVID-19 (ANA) COVID-19 Clin Com Influenza Type A (CARLY) Influenza Type B (CARLY) Influenza A & B Note 04/14/24 04/14/24 04/14/24 15:21 15:21 15:21 WBC RBC Hgb Cancelled Hct 36.4 L Cancelled MCV 103.1 H Cancelled MCH 33.4 H MCHC RDW Plt Count MPV Immature Gran % (Auto) Neut % (Auto) Lymph % (Auto) [place] % (Auto) Eos % (Auto) Baso % (Auto) Lymph # (Auto) [place] # (Auto) Eos # (Auto) Baso # (Auto) Abs Immat Gran (auto) Absolute Neuts (auto) Absolute Nucleated RBC Nucleated RBC % (auto) Neutrophils % (Manual) Band Neutrophils % Lymphocytes % (Manual) Atypical Lymphs % (Man) Monocytes % (Manual) Eosinophils % (Manual) Basophils % (Manual) Metamyelocytes % Myelocytes % Promyelocytes % Blast Cells % (Manual) Plasma Cell % (Manual) Abs Neuts (Manual) Lymphocytes # (Manual) Atyp Lymphs # (Manual) Monocytes # (Manual) Eosinophils # (Manual) Basophils # (Manual) Metamyelocytes # Myelocytes # Promyelocytes # Blast Cells # Plasma Cell # (Manual) Nucleated RBCs Hypersegmented Neuts Smudge Cells Toxic Granulation Toxic Vacuolation Dohle Bodies [place] Rods WBC Morphology Comment Platelet Estimate Large Platelets Giant Platelets Plt Morphology Comment RBC Morphology Polychromasia Hypochromasia Basophilic Stippling Microcytosis Macrocytosis Spherocytes Pappenheimer Bodies Sickle Cells Target Cells Tear Drop Cells Ovalocytes Stomatocytes [place] Bodies [place]elia Cells Acanthocytes (Spur) Rouleaux Schistocytes PT INR VBG pH VBG pCO2 VBG pO2 VBG HCO3 VBG O2 Saturation VBG Base Excess Sodium Potassium Chloride Carbon Dioxide Anion Gap BUN Creatinine Estim Creat Clear Calc Estimated GFR Random Glucose Calcium Magnesium Total Bilirubin Direct Bilirubin AST ALT Alkaline Phosphatase Ammonia Total Creatine Kinase Troponin I High Sens Total Protein Albumin Urine Color Urine Appearance Urine pH Ur Specific [place] Urine Protein Urine Glucose (UA) Urine Ketones Urine Blood Urine Nitrite Ur Leukocyte Esterase Urine Opiates Screen Ur Buprenorphine Scrn Ur Oxycodone Screen Urine Methadone Screen Urine Fentanyl Screen Ur Barbiturates Screen Ur Phencyclidine Scrn Ur Amphetamines Screen U Benzodiazepines Scrn Urine Cocaine Screen U Marijuana (THC) Screen Ethyl Alcohol COVID-19 (ANA) COVID-19 Clin Com Influenza Type A (CARLY) Influenza Type B (CARLY) Influenza A & B Note 04/14/24 04/14/24 04/14/24 15:21 15:21 15:21 WBC RBC Hgb Hct MCV MCH Cancelled MCHC 32.4 Cancelled RDW 18.4 H Cancelled Plt Count 256 MPV Immature Gran % (Auto) Neut % (Auto) Lymph % (Auto) [place] % (Auto) Eos % (Auto) Baso % (Auto) Lymph # (Auto) [place] # (Auto) Eos # (Auto) Baso # (Auto) Abs Immat Gran (auto) Absolute Neuts (auto) Absolute Nucleated RBC Nucleated RBC % (auto) Neutrophils % (Manual) Band Neutrophils % Lymphocytes % (Manual) Atypical Lymphs % (Man) Monocytes % (Manual) Eosinophils % (Manual) Basophils % (Manual) Metamyelocytes % Myelocytes % Promyelocytes % Blast Cells % (Manual) Plasma Cell % (Manual) Abs Neuts (Manual) Lymphocytes # (Manual) Atyp Lymphs # (Manual) Monocytes # (Manual) Eosinophils # (Manual) Basophils # (Manual) Metamyelocytes # Myelocytes # Promyelocytes # Blast Cells # Plasma Cell # (Manual) Nucleated RBCs Hypersegmented Neuts Smudge Cells Toxic Granulation Toxic Vacuolation Dohle Bodies Haley Rods WBC Morphology Comment Platelet Estimate Large Platelets Giant Platelets Plt Morphology Comment RBC Morphology Polychromasia Hypochromasia Basophilic Stippling Microcytosis Macrocytosis Spherocytes Pappenheimer Bodies Sickle Cells Target Cells Tear Drop Cells Ovalocytes Stomatocytes [place] Bodies [place] Cells Acanthocytes (Spur) Rouleaux Schistocytes PT INR VBG pH VBG pCO2 VBG pO2 VBG HCO3 VBG O2 Saturation VBG Base Excess Sodium Potassium Chloride Carbon Dioxide Anion Gap BUN Creatinine Estim Creat Clear Calc Estimated GFR Random Glucose Calcium Magnesium Total Bilirubin Direct Bilirubin AST ALT Alkaline Phosphatase Ammonia Total Creatine Kinase Troponin I High Sens Total Protein Albumin Urine Color Urine Appearance Urine pH Ur Specific [place] Urine Protein Urine Glucose (UA) Urine Ketones Urine Blood Urine Nitrite Ur Leukocyte Esterase Urine Opiates Screen Ur Buprenorphine Scrn Ur Oxycodone Screen Urine Methadone Screen Urine Fentanyl Screen Ur Barbiturates Screen Ur Phencyclidine Scrn Ur Amphetamines Screen U Benzodiazepines Scrn Urine Cocaine Screen U Marijuana (THC) Screen Ethyl Alcohol COVID-19 (ANA) COVID-19 Clin Com Influenza Type A (CARLY) Influenza Type B (CARLY) Influenza A & B Note 04/14/24 04/14/24 04/14/24 15:21 15:21 15:21 WBC RBC Hgb Hct MCV MCH MCHC RDW Plt Count Cancelled MPV 10.1 Cancelled Immature Gran % (Auto) Cancelled Neut % (Auto) Cancelled Lymph % (Auto) Cancelled [place] % (Auto) Cancelled Eos % (Auto) Cancelled Baso % (Auto) Cancelled Lymph # (Auto) Cancelled [place] # (Auto) Cancelled Eos # (Auto) Cancelled Baso # (Auto) Cancelled Abs Immat Gran (auto) Cancelled Absolute Neuts (auto) Cancelled Absolute Nucleated RBC 0.000 Cancelled Nucleated RBC % (auto) 0.0 Neutrophils % (Manual) Band Neutrophils % Lymphocytes % (Manual) Atypical Lymphs % (Man) Monocytes % (Manual) Eosinophils % (Manual) Basophils % (Manual) Metamyelocytes % Myelocytes % Promyelocytes % Blast Cells % (Manual) Plasma Cell % (Manual) Abs Neuts (Manual) Lymphocytes # (Manual) Atyp Lymphs # (Manual) Monocytes # (Manual) Eosinophils # (Manual) Basophils # (Manual) Metamyelocytes # Myelocytes # Promyelocytes # Blast Cells # Plasma Cell # (Manual) Nucleated RBCs Hypersegmented Neuts Smudge Cells Toxic Granulation Toxic Vacuolation Dohle Bodies Haley Rods WBC Morphology Comment Platelet Estimate Large Platelets Giant Platelets Plt Morphology Comment RBC Morphology Polychromasia Hypochromasia Basophilic Stippling Microcytosis Macrocytosis Spherocytes Pappenheimer Bodies Sickle Cells Target Cells Tear Drop Cells Ovalocytes Stomatocytes [place] Bodies [place] Cells Acanthocytes (Spur) Rouleaux Schistocytes PT INR VBG pH VBG pCO2 VBG pO2 VBG HCO3 VBG O2 Saturation VBG Base Excess Sodium Potassium Chloride Carbon Dioxide Anion Gap BUN Creatinine Estim Creat Clear Calc Estimated GFR Random Glucose Calcium Magnesium Total Bilirubin Direct Bilirubin AST ALT Alkaline Phosphatase Ammonia Total Creatine Kinase Troponin I High Sens Total Protein Albumin Urine Color Urine Appearance Urine pH Ur Specific [place] Urine Protein Urine Glucose (UA) Urine Ketones Urine Blood Urine Nitrite Ur Leukocyte Esterase Urine Opiates Screen Ur Buprenorphine Scrn Ur Oxycodone Screen Urine Methadone Screen Urine Fentanyl Screen Ur Barbiturates Screen Ur Phencyclidine Scrn Ur Amphetamines Screen U Benzodiazepines Scrn Urine Cocaine Screen U Marijuana (THC) Screen Ethyl Alcohol COVID-19 (ANA) COVID-19 Clin Com Influenza Type A (CARLY) Influenza Type B (CARLY) Influenza A & B Note 04/14/24 04/14/24 04/14/24 15:21 15:21 15:21 WBC RBC Hgb Hct MCV MCH MCHC RDW Plt Count MPV Immature Gran % (Auto) Neut % (Auto) Lymph % (Auto) [place] % (Auto) Eos % (Auto) Baso % (Auto) Lymph # (Auto) [place] # (Auto) Eos # (Auto) Baso # (Auto) Abs Immat Gran (auto) Absolute Neuts (auto) Absolute Nucleated RBC Nucleated RBC % (auto) Cancelled Neutrophils % (Manual) 53 Cancelled Band Neutrophils % 1 L Cancelled Lymphocytes % (Manual) 27 Atypical Lymphs % (Man) Monocytes % (Manual) Eosinophils % (Manual) Basophils % (Manual) Metamyelocytes % Myelocytes % Promyelocytes % Blast Cells % (Manual) Plasma Cell % (Manual) Abs Neuts (Manual) Lymphocytes # (Manual) Atyp Lymphs # (Manual) Monocytes # (Manual) Eosinophils # (Manual) Basophils # (Manual) Metamyelocytes # Myelocytes # Promyelocytes # Blast Cells # Plasma Cell # (Manual) Nucleated RBCs Hypersegmented Neuts Smudge Cells Toxic Granulation Toxic Vacuolation Dohle Bodies Haley Rods WBC Morphology Comment Platelet Estimate Large Platelets Giant Platelets Plt Morphology Comment RBC Morphology Polychromasia Hypochromasia Basophilic Stippling Microcytosis Macrocytosis Spherocytes Pappenheimer Bodies Sickle Cells Target Cells Tear Drop Cells Ovalocytes Stomatocytes [place] Bodies [place] Cells Acanthocytes (Spur) Rouleaux Schistocytes PT INR VBG pH VBG pCO2 VBG pO2 VBG HCO3 VBG O2 Saturation VBG Base Excess Sodium Potassium Chloride Carbon Dioxide Anion Gap BUN Creatinine Estim Creat Clear Calc Estimated GFR Random Glucose Calcium Magnesium Total Bilirubin Direct Bilirubin AST ALT Alkaline Phosphatase Ammonia Total Creatine Kinase Troponin I High Sens Total Protein Albumin Urine Color Urine Appearance Urine pH Ur Specific [place] Urine Protein Urine Glucose (UA) Urine Ketones Urine Blood Urine Nitrite Ur Leukocyte Esterase Urine Opiates Screen Ur Buprenorphine Scrn Ur Oxycodone Screen Urine Methadone Screen Urine Fentanyl Screen Ur Barbiturates Screen Ur Phencyclidine Scrn Ur Amphetamines Screen U Benzodiazepines Scrn Urine Cocaine Screen U Marijuana (THC) Screen Ethyl Alcohol COVID-19 (ANA) COVID-19 Clin Com Influenza Type A (CARLY) Influenza Type B (CARLY) Influenza A & B Note 04/14/24 04/14/24 04/14/24 15:21 15:21 15:21 WBC RBC Hgb Hct MCV MCH MCHC RDW Plt Count MPV Immature Gran % (Auto) Neut % (Auto) Lymph % (Auto) [place] % (Auto) Eos % (Auto) Baso % (Auto) Lymph # (Auto) [place] # (Auto) Eos # (Auto) Baso # (Auto) Abs Immat Gran (auto) Absolute Neuts (auto) Absolute Nucleated RBC Nucleated RBC % (auto) Neutrophils % (Manual) Band Neutrophils % Lymphocytes % (Manual) Cancelled Atypical Lymphs % (Man) Cancelled Monocytes % (Manual) 17 H Cancelled Eosinophils % (Manual) Cancelled Basophils % (Manual) 2 Cancelled Metamyelocytes % Cancelled Myelocytes % Cancelled Promyelocytes % Cancelled Blast Cells % (Manual) Cancelled Plasma Cell % (Manual) Cancelled Abs Neuts (Manual) 4.7 Lymphocytes # (Manual) Atyp Lymphs # (Manual) Monocytes # (Manual) Eosinophils # (Manual) Basophils # (Manual) Metamyelocytes # Myelocytes # Promyelocytes # Blast Cells # Plasma Cell # (Manual) Nucleated RBCs Hypersegmented Neuts Smudge Cells Toxic Granulation Toxic Vacuolation Dohle Bodies Haley Rods WBC Morphology Comment Platelet Estimate Large Platelets Giant Platelets Plt Morphology Comment RBC Morphology Polychromasia Hypochromasia Basophilic Stippling Microcytosis Macrocytosis Spherocytes Pappenheimer Bodies Sickle Cells Target Cells Tear Drop Cells Ovalocytes Stomatocytes [place] Bodies [place] Cells Acanthocytes (Spur) Rouleaux Schistocytes PT INR VBG pH VBG pCO2 VBG pO2 VBG HCO3 VBG O2 Saturation VBG Base Excess Sodium Potassium Chloride Carbon Dioxide Anion Gap BUN Creatinine Estim Creat Clear Calc Estimated GFR Random Glucose Calcium Magnesium Total Bilirubin Direct Bilirubin AST ALT Alkaline Phosphatase Ammonia Total Creatine Kinase Troponin I High Sens Total Protein Albumin Urine Color Urine Appearance Urine pH Ur Specific [place] Urine Protein Urine Glucose (UA) Urine Ketones Urine Blood Urine Nitrite Ur Leukocyte Esterase Urine Opiates Screen Ur Buprenorphine Scrn Ur Oxycodone Screen Urine Methadone Screen Urine Fentanyl Screen Ur Barbiturates Screen Ur Phencyclidine Scrn Ur Amphetamines Screen U Benzodiazepines Scrn Urine Cocaine Screen U Marijuana (THC) Screen Ethyl Alcohol COVID-19 (ANA) COVID-19 Clin Com Influenza Type A (CARLY) Influenza Type B (CARLY) Influenza A & B Note 04/14/24 04/14/24 04/14/24 15:21 15:21 15:21 WBC RBC Hgb Hct MCV MCH MCHC RDW Plt Count MPV Immature Gran % (Auto) Neut % (Auto) Lymph % (Auto) [place] % (Auto) Eos % (Auto) Baso % (Auto) Lymph # (Auto) [place] # (Auto) Eos # (Auto) Baso # (Auto) Abs Immat Gran (auto) Absolute Neuts (auto) Absolute Nucleated RBC Nucleated RBC % (auto) Neutrophils % (Manual) Band Neutrophils % Lymphocytes % (Manual) Atypical Lymphs % (Man) Monocytes % (Manual) Eosinophils % (Manual) Basophils % (Manual) Metamyelocytes % Myelocytes % Promyelocytes % Blast Cells % (Manual) Plasma Cell % (Manual) Abs Neuts (Manual) Cancelled Lymphocytes # (Manual) 2.3 Cancelled Atyp Lymphs # (Manual) Cancelled Monocytes # (Manual) 1.5 H Cancelled Eosinophils # (Manual) Cancelled Basophils # (Manual) 0.2 Metamyelocytes # Myelocytes # Promyelocytes # Blast Cells # Plasma Cell # (Manual) Nucleated RBCs Hypersegmented Neuts Smudge Cells Toxic Granulation Toxic Vacuolation Dohle Bodies Haley Rods WBC Morphology Comment Platelet Estimate Large Platelets Giant Platelets Plt Morphology Comment RBC Morphology Polychromasia Hypochromasia Basophilic Stippling Microcytosis Macrocytosis Spherocytes Pappenheimer Bodies Sickle Cells Target Cells Tear Drop Cells Ovalocytes Stomatocytes [place] Bodies [place] Cells Acanthocytes (Spur) Rouleaux Schistocytes PT INR VBG pH VBG pCO2 VBG pO2 VBG HCO3 VBG O2 Saturation VBG Base Excess Sodium Potassium Chloride Carbon Dioxide Anion Gap BUN Creatinine Estim Creat Clear Calc Estimated GFR Random Glucose Calcium Magnesium Total Bilirubin Direct Bilirubin AST ALT Alkaline Phosphatase Ammonia Total Creatine Kinase Troponin I High Sens Total Protein Albumin Urine Color Urine Appearance Urine pH Ur Specific [place] Urine Protein Urine Glucose (UA) Urine Ketones Urine Blood Urine Nitrite Ur Leukocyte Esterase Urine Opiates Screen Ur Buprenorphine Scrn Ur Oxycodone Screen Urine Methadone Screen Urine Fentanyl Screen Ur Barbiturates Screen Ur Phencyclidine Scrn Ur Amphetamines Screen U Benzodiazepines Scrn Urine Cocaine Screen U Marijuana (THC) Screen Ethyl Alcohol COVID-19 (ANA) COVID-19 Clin Com Influenza Type A (CARLY) Influenza Type B (CARLY) Influenza A & B Note 04/14/24 04/14/24 04/14/24 15:21 15:21 15:21 WBC RBC Hgb Hct MCV MCH MCHC RDW Plt Count MPV Immature Gran % (Auto) Neut % (Auto) Lymph % (Auto) [place] % (Auto) Eos % (Auto) Baso % (Auto) Lymph # (Auto) [place] # (Auto) Eos # (Auto) Baso # (Auto) Abs Immat Gran (auto) Absolute Neuts (auto) Absolute Nucleated RBC Nucleated RBC % (auto) Neutrophils % (Manual) Band Neutrophils % Lymphocytes % (Manual) Atypical Lymphs % (Man) Monocytes % (Manual) Eosinophils % (Manual) Basophils % (Manual) Metamyelocytes % Myelocytes % Promyelocytes % Blast Cells % (Manual) Plasma Cell % (Manual) Abs Neuts (Manual) Lymphocytes # (Manual) Atyp Lymphs # (Manual) Monocytes # (Manual) Eosinophils # (Manual) Basophils # (Manual) Cancelled Metamyelocytes # Cancelled Myelocytes # Cancelled Promyelocytes # Cancelled Blast Cells # Cancelled Plasma Cell # (Manual) Cancelled Nucleated RBCs Cancelled Hypersegmented Neuts Cancelled Smudge Cells Cancelled Toxic Granulation Cancelled Toxic Vacuolation Cancelled Dohle Bodies Cancelled Haley Rods Cancelled WBC Morphology Comment Cancelled Platelet Estimate NORMAL Cancelled Large Platelets Cancelled Giant Platelets Cancelled Plt Morphology Comment NORMAL Cancelled RBC Morphology NORMAL Polychromasia Hypochromasia Basophilic Stippling Microcytosis Macrocytosis Spherocytes Pappenheimer Bodies Sickle Cells Target Cells Tear Drop Cells Ovalocytes Stomatocytes [place] Bodies [place] Cells Acanthocytes (Spur) Rouleaux Schistocytes PT INR VBG pH VBG pCO2 VBG pO2 VBG HCO3 VBG O2 Saturation VBG Base Excess Sodium Potassium Chloride Carbon Dioxide Anion Gap BUN Creatinine Estim Creat Clear Calc Estimated GFR Random Glucose Calcium Magnesium Total Bilirubin Direct Bilirubin AST ALT Alkaline Phosphatase Ammonia Total Creatine Kinase Troponin I High Sens Total Protein Albumin Urine Color Urine Appearance Urine pH Ur Specific [place] Urine Protein Urine Glucose (UA) Urine Ketones Urine Blood Urine Nitrite Ur Leukocyte Esterase Urine Opiates Screen Ur Buprenorphine Scrn Ur Oxycodone Screen Urine Methadone Screen Urine Fentanyl Screen Ur Barbiturates Screen Ur Phencyclidine Scrn Ur Amphetamines Screen U Benzodiazepines Scrn Urine Cocaine Screen U Marijuana (THC) Screen Ethyl Alcohol COVID-19 (ANA) COVID-19 Clin Com Influenza Type A (CARLY) Influenza Type B (CARLY) Influenza A & B Note 04/14/24 04/14/24 04/14/24 15:21 15:26 18:38 WBC RBC Hgb Hct MCV MCH MCHC RDW Plt Count MPV Immature Gran % (Auto) Neut % (Auto) Lymph % (Auto) [place] % (Auto) Eos % (Auto) Baso % (Auto) Lymph # (Auto) [place] # (Auto) Eos # (Auto) Baso # (Auto) Abs Immat Gran (auto) Absolute Neuts (auto) Absolute Nucleated RBC Nucleated RBC % (auto) Neutrophils % (Manual) Band Neutrophils % Lymphocytes % (Manual) Atypical Lymphs % (Man) Monocytes % (Manual) Eosinophils % (Manual) Basophils % (Manual) Metamyelocytes % Myelocytes % Promyelocytes % Blast Cells % (Manual) Plasma Cell % (Manual) Abs Neuts (Manual) Lymphocytes # (Manual) Atyp Lymphs # (Manual) Monocytes # (Manual) Eosinophils # (Manual) Basophils # (Manual) Metamyelocytes # Myelocytes # Promyelocytes # Blast Cells # Plasma Cell # (Manual) Nucleated RBCs Hypersegmented Neuts Smudge Cells Toxic Granulation Toxic Vacuolation Dohle Bodies Haley Rods WBC Morphology Comment Platelet Estimate Large Platelets Giant Platelets Plt Morphology Comment RBC Morphology Cancelled Polychromasia Cancelled Hypochromasia Cancelled Basophilic Stippling Cancelled Microcytosis Cancelled Macrocytosis Cancelled Spherocytes Cancelled Pappenheimer Bodies Cancelled Sickle Cells Cancelled Target Cells Cancelled Tear Drop Cells Cancelled Ovalocytes Cancelled Stomatocytes Cancelled [place] Bodies Cancelled [place]elia Cells Cancelled Acanthocytes (Spur) Cancelled Rouleaux Cancelled Schistocytes Cancelled PT 10.6 L INR 0.9 VBG pH 7.50 H VBG pCO2 32 VBG pO2 110 VBG HCO3 25 VBG O2 Saturation 97.0 VBG Base Excess 2.7 Sodium 146 H Potassium 4.3 Chloride 108 Carbon Dioxide 25 Anion Gap 17 BUN 8 L Creatinine 0.71 Estim Creat Clear Calc 87.0 Estimated GFR > 60 Random Glucose 86 Calcium 9.9 D Magnesium 2.0 Total Bilirubin 0.5 Direct Bilirubin 0.2 AST 27 ALT 6 Alkaline Phosphatase 62 Ammonia 37 Total Creatine Kinase 25 L Troponin I High Sens 7.1 D 6.4 Total Protein 6.5 Albumin 3.7 Urine Color Urine Appearance Urine pH Ur Specific [place] Urine Protein Urine Glucose (UA) Urine Ketones Urine Blood Urine Nitrite Ur Leukocyte Esterase Urine Opiates Screen Ur Buprenorphine Scrn Ur Oxycodone Screen Urine Methadone Screen Urine Fentanyl Screen Ur Barbiturates Screen Ur Phencyclidine Scrn Ur Amphetamines Screen U Benzodiazepines Scrn Urine Cocaine Screen U Marijuana (THC) Screen Ethyl Alcohol < 10 COVID-19 (ANA) Negative COVID-19 Clin Com See Note Influenza Type A (CARLY) Negative Influenza Type B (CARLY) Negative Influenza A & B Note See Note 04/15/24 03:54 WBC RBC Hgb Hct MCV MCH MCHC RDW Plt Count MPV Immature Gran % (Auto) Neut % (Auto) Lymph % (Auto) [place] % (Auto) Eos % (Auto) Baso % (Auto) Lymph # (Auto) [place] # (Auto) Eos # (Auto) Baso # (Auto) Abs Immat Gran (auto) Absolute Neuts (auto) Absolute Nucleated RBC Nucleated RBC % (auto) Neutrophils % (Manual) Band Neutrophils % Lymphocytes % (Manual) Atypical Lymphs % (Man) Monocytes % (Manual) Eosinophils % (Manual) Basophils % (Manual) Metamyelocytes % Myelocytes % Promyelocytes % Blast Cells % (Manual) Plasma Cell % (Manual) Abs Neuts (Manual) Lymphocytes # (Manual) Atyp Lymphs # (Manual) Monocytes # (Manual) Eosinophils # (Manual) Basophils # (Manual) Metamyelocytes # Myelocytes # Promyelocytes # Blast Cells # Plasma Cell # (Manual) Nucleated RBCs Hypersegmented Neuts Smudge Cells Toxic Granulation Toxic Vacuolation Dohle Bodies Haley Rods WBC Morphology Comment Platelet Estimate Large Platelets Giant Platelets Plt Morphology Comment RBC Morphology Polychromasia Hypochromasia Basophilic Stippling Microcytosis Macrocytosis Spherocytes Pappenheimer Bodies Sickle Cells Target Cells Tear Drop Cells Ovalocytes Stomatocytes [place] Bodies Camelia Cells Acanthocytes (Spur) Rouleaux Schistocytes PT INR VBG pH VBG pCO2 VBG pO2 VBG HCO3 VBG O2 Saturation VBG Base Excess Sodium Potassium Chloride Carbon Dioxide Anion Gap BUN Creatinine Estim Creat Clear Calc Estimated GFR Random Glucose Calcium Magnesium Total Bilirubin Direct Bilirubin AST ALT Alkaline Phosphatase Ammonia Total Creatine Kinase Troponin I High Sens Total Protein Albumin Urine Color Yellow Urine Appearance Clear Urine pH 7.0 Ur Specific [place] 1.010 Urine Protein Trace Urine Glucose (UA) Negative Urine Ketones Negative Urine Blood Negative Urine Nitrite Negative Ur Leukocyte Esterase Negative Urine Opiates Screen Not Detected Ur Buprenorphine Scrn Not Detected Ur Oxycodone Screen Not Detected Urine Methadone Screen Not Detected Urine Fentanyl Screen Not Detected Ur Barbiturates Screen Not Detected Ur Phencyclidine Scrn Not Detected Ur Amphetamines Screen Not Detected U Benzodiazepines Scrn Not Detected Urine Cocaine Screen Not Detected U Marijuana (THC) Screen Not Detected Ethyl Alcohol COVID-19 (ANA) COVID-19 Clin Com Influenza Type A (CARLY) Influenza Type B (CARLY) Influenza A & B Note Imaging Radiology Impressions: ITS Impressions Chest X-Ray 04/14/24 14:37 IMPRESSION: Unremarkable examination, without interval change. Electronically signed by: Ramo Ferguson MD 04/14/2024 03:41 PM [facility] [place] Mental Status Exam Mental Status Exam Narrative: Appearance: MO, wearing hospital gown, in NAD Behavior: somewhat guarded Psychomotor: intermittent periods of agitation, has attempted to swing at staff and RN. Speech: mostly clear, some delay in response, spontaneous TP: somewhat disorganized TC: thinking someone changed her medications Mood: okay Affect: somewhat suspicious SI: denies HI: denies VH/AH: seen talking to someone who was not there Delusions: some paranoid ideas of people changing her medications Insight/judgment: impaired x 2. memory/cog: alert, fluctuating period of increase confusion, does know place, month, year but not oriented to situation. poor attention Medications Allergies Allergies Allergy/AdvReac Type Severity Reaction Status Date / Time Penicillins Allergy Mild Rash Verified 04/14/24 13:39 venlafaxine [From Effexor] Allergy Mild Rash Verified 04/14/24 13:39 cyclobenzaprine Allergy Unknown Unknown Verified 04/14/24 13:39 [Cyclobenzaprine] topiramate [From Topamax] Allergy Unknown Unknown Verified 04/14/24 13:39 levofloxacin [From Levaquin] AdvReac Severe Diarrhea Verified 04/14/24 13:39 Sulfa (Sulfonamide AdvReac Severe Diarrhea Verified 04/14/24 13:39 Antibiotics) fentanyl [FENTANYL] AdvReac Intermediate Hallucinati Verified 04/14/24 13:39 ons Assessment & Plan Assessment & Plan (1) Encephalopathy: Status: Acute Code(s): G93.40 - Encephalopathy, unspecified Plan Mrs. Seth is a 58 year-old woman who was brought by due to increase confusion, visual and auditory hallucinations. She has been recently here in ED for similar presentation. She was at that time found to have elevated ammonia which was treated with lactulose. This time around, ammonia is normal, no other evident source of medical condition causing delirium but she is delirious. If suspected related to FOLFIRI- one mechanism by which Folfiri can cause encephalopathy is by causing hyperammonemia, which is now hers is normal, or rare instances of posterior reversible encephalopathy or PRES (which mostly seen in MRI). Discussed with ED attending to consult with medicine if they would agree to admit pt with consult to neurology also to rule out other causes of encephalopathy. In the mean time, management of psychosis with low doses haldol 1mg po BID- this is also considering if there is epileptic activity, haldol is less likely to lower seizure threshold and has minimal anticholigernic properties that may worsen delirium. Her presentation is not consistent with primarily psychiatric illness. Total time managing care of this patient today ____ minutes.
--- NOTE | 2024-04-15 16:59 | P.HPHOSP_ITS ---
History of Present Illness Date of Service: 04/15/24 Chief Complaint: ams 58F PMH depression, anemia, sigmoid adenocarcinoma s/p colostomy, in remission, completed chemo 3 week ptp, cad, pafib, chronic hyopxic respiratory failure on 2L home o2, hfpef, htn hld, presnted with confusion. History gathered from chart, patient, . For about 2-3 weeks has had increased confusion, talking to people who were not present, visual hallucinations, poor memory retention. Denies previous symptoms, has noted some cognitive decline over the past 2 years, accelerated after of son in 08/23/2023. Does have family history of early-onset dementia. Denies headache, fever, chills, shortness of breath. Initially presented to ED 04/11/2024 with hypotension and altered mental status, that resolved and was discharged home. Then returned to 04/14/2024, initially planned for psychiatry eval, however, medical admission requested to rule out chemo induced encephalopathy or pres. Review of Systems 2 Review of Systems: Yes all other systems are reviewed and are negative [facility] Medical History Smoker Chronic back pain Colostomy in place (~2020) Personal history of nicotine dependence Polysubstance (including opioids) dependence, binge pattern Atrial fibrillation with rapid ventricular response Congestive heart failure Restrictive lung disease COPD (chronic obstructive pulmonary disease) No natural teeth COVID-19 vaccine series completed History of COVID-19 (~04/2020) Oxygen dependent Pericardial effusion Other and unspecified hyperlipidemia Essential hypertension Peripheral vascular disease Preoperative cardiovascular examination Bilateral pneumonia Adenocarcinoma of sigmoid colon (~2020) Hypernatremia GI bleed UTI (urinary tract infection) Pleural effusion, left Colon cancer (~2020) IVY (obstructive sleep apnea) Cancer of lower lobe of left lung (~2020) GERD (gastroesophageal reflux disease) Acute and chronic respiratory failure Lung cancer Obesity Hypoventilation associated with obesity Obesity hypoventilation syndrome Respiratory failure with hypoxia and hypercapnia Rotator cuff strain Hypoxia Pneumonia Restless legs syndrome (RLS) Sleep disorder Bipolar disorder (~2009) Back pain with history of spinal surgery Renal failure Fibromyalgia Depression High cholesterol PTSD (post-traumatic stress disorder) CAD (coronary artery disease) HTN (hypertension) Family History Maternal Aunt Breast cancer Stroke COPD (chronic obstructive pulmonary disease) Maternal Aunt Breast cancer COPD (chronic obstructive pulmonary disease) Mother Uterine cancer COPD (chronic obstructive pulmonary disease) HTN (hypertension) Heart disease Mental health disorder Maternal Uncle Stroke Paternal Grandmother Heart attack Parkinsons disease Sister Diabetes IBS (irritable bowel syndrome) Son HTN (hypertension) Substance use disorder Daughter HTN (hypertension) Father HTN (hypertension) Brother Heart disease Family/Other Mental health disorder Surgical History History of partial colectomy (~12/2020) History of cardiac cath (~2010) History of hysterectomy (~1990) History of cholecystectomy History of appendectomy (~1982) History of colonoscopy (~08/2020) History of lobectomy of lung (~08/2020) History of esophagogastroduodenoscopy (EGD) History of bunionectomy (~1977) History of back surgery Social History Household Members: Spouse Housing: House Are you a primary summer child caregiver to a significant other at home: No Do you presently have visiting nurse or other home services: Yes Alcohol intake: never Comment: pt sleeping Patient Tobacco Use Status: Former Tobacco user Tobacco use type: Cigarette Cigarettes Per Day: 4 Years Smoked: 40 Smoked in Last 30 Days: No e-Cigarette/Vaping Use: Never Used Second Hand Smoke Exposure: Yes Use of substances other than those prescribed or required for medical reasons: No Advance Directives: No Advance Directives Information Provided: No Advance Directives Date on File: 10/05/22 Do you have a plan to hurt others: No Plan Patient : No service: No Current occupational status: unemployed and disabled Cognitive needs: Yes (mercedez ) Hearing needs: No Vision needs: No Meds Allergies Allergy/AdvReac Type Severity Reaction Status Date / Time Penicillins Allergy Mild Rash Verified 04/14/24 13:39 venlafaxine [From Effexor] Allergy Mild Rash Verified 04/14/24 13:39 cyclobenzaprine Allergy Unknown Unknown Verified 04/14/24 13:39 [Cyclobenzaprine] topiramate [From Topamax] Allergy Unknown Unknown Verified 04/14/24 13:39 levofloxacin [From Levaquin] AdvReac Severe Diarrhea Verified 04/14/24 13:39 Sulfa (Sulfonamide AdvReac Severe Diarrhea Verified 04/14/24 13:39 Antibiotics) fentanyl [FENTANYL] AdvReac Intermediate Hallucinati Verified 04/14/24 13:39 ons Active Medications: Current Medications Acetaminophen (Acetaminophen 325 Mg Tablet) 650 mg PO Q6H PRN PRN Reason: Pain, Mild (Pain Scale 1-3), fever or headache Apixaban (Apixaban 5 Mg Tablet) 5 mg PO BID [facility] Atorvastatin Calcium (Atorvastatin Calcium 80 Mg Tablet) 80 mg PO BEDTIME LONG Calcium Carbonate (Calcium Carbonate 750 Mg Tab.Chew) 750 mg PO Q4H PRN PRN Reason: Heartburn Clonazepam (Clonazepam 1 Mg Tablet) 1 mg PO BID LONG Diltiazem HCl (Diltiazem Hcl Cd 240 Mg Cap.Er.Deg) 240 mg PO BEDTIME LONG; Protocol Diphenoxylate HCl/Atropine (Diphenoxylate/Atrop 2.5/0.025 Tablet) 1 tab PO BID PRN PRN Reason: Diarrhea Divalproex Sodium (Divalproex Sodium Er 500 Mg Tab.Er.24h) 1,000 mg PO BEDTIME LONG Divalproex Sodium (Divalproex Sodium Er 500 Mg Tab.Er.24h) 500 mg PO DAILY [facility] Duloxetine HCl (Duloxetine Hcl 60 Mg Capsule.) 60 mg PO BEDTIME LONG Fenofibrate (Fenofibrate 160 Mg Tablet) 160 mg PO BEDTIME LONG Ferrous Sulfate (Ferrous Sulfate 324 Mg Tablet.) 324 mg PO BID [facility] Fluticasone/Vilanterol (Fluticasone/Vilanterol 100/25 Blst.W.Dev) 1 puff INHALE RDAILY [facility] Haloperidol (Haloperidol 1 Mg Tablet) 1 mg PO BID [facility] Hydralazine HCl (Hydralazine Hcl 50 Mg Tablet) 50 mg PO TID LONG; Protocol Lactulose (Lactulose 20 Gm/30 Ml Solution) 10 gm PO DAILY PRN PRN Reason: high ammonia Magnesium Hydroxide (Milk Of Magnesia 30 Ml Oral.Susp) 30 ml PO DAILY PRN PRN Reason: Constipation Melatonin (Melatonin 3 Mg Tablet) 6 mg PO BEDTIME PRN PRN Reason: Insomnia Metoprolol Succinate (Metoprolol Succinate Er 50 Mg Tab.Er.24h) 50 mg PO DAILY LONG; Protocol Omeprazole (Omeprazole 20 Mg Capsule.) 20 mg PO BID@0630,1630 [facility] Sodium Chloride (0.9 % Sodium Chloride Flush 3 Ml Syringe) 3 ml IVFLUSH QSHIFT [facility] Tiotropium [place] (Tiotropium [place] 2.5 Mcg 1 Puff/2.5 Mcg Mist.Inhal) 2 puff INHALE RDAILY [facility] Home Medications ?Medication ?Instructions ?Recorded ?Confirmed ?Last Taken ?Type blood pressure monitor #1 ea 10/22/20 04/09/24 11/28/20 History blood pressure test kit-large #1 ea 10/22/20 04/09/24 11/28/20 History docusate sodium 100 mg capsule 100 mg PO BID PRN constipation 09/21/21 04/15/24 Unknown History diltiazem HCl 240 mg 240 mg PO BEDTIME 04/15/24 04/15/24 Unknown History capsule,extended release 24 hr (Cardizem CD) divalproex 500 mg tablet,extended 1,000 mg PO BEDTIME 04/15/24 04/15/24 Unknown History release 24 hr fenofibrate 160 mg tablet 160 mg PO BEDTIME 04/15/24 04/15/24 Unknown History fluticasone furoate 100 1 ea inhalation DAILY 04/15/24 04/15/24 Unknown History mcg-vilanterol 25 mcg/dose inhalation powder (Breo Ellipta) lactulose 10 gram/15 mL oral 15 ml PO DAILY PRN high ammonia 04/15/24 04/15/24 Unknown History solution (Constulose) metoprolol succinate 50 mg 50 mg PO DAILY 04/15/24 04/15/24 Unknown History tablet,extended release 24 hr omeprazole 20 mg capsule,delayed 20 mg PO BID@0630,1630 04/15/24 04/15/24 Unknown History release ondansetron 8 mg disintegrating 8 mg PO QID PRN Nausea vomiting 04/15/24 04/15/24 Unknown History tablet Physical Exam 2 Vital Signs and Narrative: Vital Signs: Last Vital Signs Temp 98.1 F 04/15/24 15:30 Pulse 125 H 04/15/24 15:30 Resp 20 04/15/24 15:30 BP 173/89 H 04/15/24 15:30 Pulse Ox 96 04/15/24 15:30 O2 Del Method Room Air 04/15/24 15:30 BMI result Body Mass Index 30.9 General: AO X 3, no acute distress Resp: CTA bilateral, no accessory muscles used CVS: S1,S2,RRR GI: soft, non tender, non distended Neuro: motor grossly intact, alert Psych: Tremulous, appropriate affect, fairly good insight is able to explain that she was talking to people who were not there, but inaccurate historian occasionally, poor recall Results Labs 04/14/24 15:21 04/14/24 15:21 Labs: Laboratory Results - last 24 hr 04/14/24 04/14/24 04/14/24 15:21 15:21 15:21 MCV 103.1 H Cancelled MCH 33.4 H Cancelled MCHC 32.4 RDW Plt Count MPV Immature Gran % (Auto) Neut % (Auto) Lymph % (Auto) [place] % (Auto) Eos % (Auto) Baso % (Auto) Lymph # (Auto) [place] # (Auto) Eos # (Auto) Baso # (Auto) Abs Immat Gran (auto) Absolute Neuts (auto) Absolute Nucleated RBC Nucleated RBC % (auto) Neutrophils % (Manual) Band Neutrophils % Lymphocytes % (Manual) Atypical Lymphs % (Man) Monocytes % (Manual) Eosinophils % (Manual) Basophils % (Manual) Metamyelocytes % Myelocytes % Promyelocytes % Blast Cells % (Manual) Plasma Cell % (Manual) Abs Neuts (Manual) Lymphocytes # (Manual) Atyp Lymphs # (Manual) Monocytes # (Manual) Eosinophils # (Manual) Basophils # (Manual) Metamyelocytes # Myelocytes # Promyelocytes # Blast Cells # Plasma Cell # (Manual) Nucleated RBCs Hypersegmented Neuts Smudge Cells Toxic Granulation Toxic Vacuolation Dohle Bodies Haley Rods WBC Morphology Comment Platelet Estimate Large Platelets Giant Platelets Plt Morphology Comment RBC Morphology Polychromasia Hypochromasia Basophilic Stippling Microcytosis Macrocytosis Spherocytes Pappenheimer Bodies Sickle Cells Target Cells Tear Drop Cells Ovalocytes Stomatocytes [place] Bodies Camelia Cells Acanthocytes (Spur) Rouleaux Schistocytes Troponin I High Sens Urine Color Urine Appearance Urine pH Ur Specific [place] Urine Protein Urine Glucose (UA) Urine Ketones Urine Blood Urine Nitrite Ur Leukocyte Esterase Urine Opiates Screen Ur Buprenorphine Scrn Ur Oxycodone Screen Urine Methadone Screen Urine Fentanyl Screen Ur Barbiturates Screen Ur Phencyclidine Scrn Ur Amphetamines Screen U Benzodiazepines Scrn Urine Cocaine Screen U Marijuana (THC) Screen 04/14/24 04/14/24 04/14/24 15:21 15:21 15:21 MCV MCH MCHC Cancelled RDW 18.4 H Cancelled Plt Count 256 Cancelled MPV 10.1 Immature Gran % (Auto) Neut % (Auto) Lymph % (Auto) [place] % (Auto) Eos % (Auto) Baso % (Auto) Lymph # (Auto) [place] # (Auto) Eos # (Auto) Baso # (Auto) Abs Immat Gran (auto) Absolute Neuts (auto) Absolute Nucleated RBC Nucleated RBC % (auto) Neutrophils % (Manual) Band Neutrophils % Lymphocytes % (Manual) Atypical Lymphs % (Man) Monocytes % (Manual) Eosinophils % (Manual) Basophils % (Manual) Metamyelocytes % Myelocytes % Promyelocytes % Blast Cells % (Manual) Plasma Cell % (Manual) Abs Neuts (Manual) Lymphocytes # (Manual) Atyp Lymphs # (Manual) Monocytes # (Manual) Eosinophils # (Manual) Basophils # (Manual) Metamyelocytes # Myelocytes # Promyelocytes # Blast Cells # Plasma Cell # (Manual) Nucleated RBCs Hypersegmented Neuts Smudge Cells Toxic Granulation Toxic Vacuolation Dohle Bodies Haley Rods WBC Morphology Comment Platelet Estimate Large Platelets Giant Platelets Plt Morphology Comment RBC Morphology Polychromasia Hypochromasia Basophilic Stippling Microcytosis Macrocytosis Spherocytes Pappenheimer Bodies Sickle Cells Target Cells Tear Drop Cells Ovalocytes Stomatocytes [place] Bodies Itmann Cells Acanthocytes (Spur) Rouleaux Schistocytes Troponin I High Sens Urine Color Urine Appearance Urine pH Ur Specific [place] Urine Protein Urine Glucose (UA) Urine Ketones Urine Blood Urine Nitrite Ur Leukocyte Esterase Urine Opiates Screen Ur Buprenorphine Scrn Ur Oxycodone Screen Urine Methadone Screen Urine Fentanyl Screen Ur Barbiturates Screen Ur Phencyclidine Scrn Ur Amphetamines Screen U Benzodiazepines Scrn Urine Cocaine Screen U Marijuana (THC) Screen 04/14/24 04/14/24 04/14/24 15:21 15:21 15:21 MCV MCH MCHC RDW Plt Count MPV Cancelled Immature Gran % (Auto) Cancelled Neut % (Auto) Cancelled Lymph % (Auto) Cancelled [place] % (Auto) Cancelled Eos % (Auto) Cancelled Baso % (Auto) Cancelled Lymph # (Auto) Cancelled [place] # (Auto) Cancelled Eos # (Auto) Cancelled Baso # (Auto) Cancelled Abs Immat Gran (auto) Cancelled Absolute Neuts (auto) Cancelled Absolute Nucleated RBC 0.000 Cancelled Nucleated RBC % (auto) 0.0 Cancelled Neutrophils % (Manual) 53 Band Neutrophils % Lymphocytes % (Manual) Atypical Lymphs % (Man) Monocytes % (Manual) Eosinophils % (Manual) Basophils % (Manual) Metamyelocytes % Myelocytes % Promyelocytes % Blast Cells % (Manual) Plasma Cell % (Manual) Abs Neuts (Manual) Lymphocytes # (Manual) Atyp Lymphs # (Manual) Monocytes # (Manual) Eosinophils # (Manual) Basophils # (Manual) Metamyelocytes # Myelocytes # Promyelocytes # Blast Cells # Plasma Cell # (Manual) Nucleated RBCs Hypersegmented Neuts Smudge Cells Toxic Granulation Toxic Vacuolation Dohle Bodies Haley Rods WBC Morphology Comment Platelet Estimate Large Platelets Giant Platelets Plt Morphology Comment RBC Morphology Polychromasia Hypochromasia Basophilic Stippling Microcytosis Macrocytosis Spherocytes Pappenheimer Bodies Sickle Cells Target Cells Tear Drop Cells Ovalocytes Stomatocytes [place] Bodies Itmann Cells Acanthocytes (Spur) Rouleaux Schistocytes Troponin I High Sens Urine Color Urine Appearance Urine pH Ur Specific [place] Urine Protein Urine Glucose (UA) Urine Ketones Urine Blood Urine Nitrite Ur Leukocyte Esterase Urine Opiates Screen Ur Buprenorphine Scrn Ur Oxycodone Screen Urine Methadone Screen Urine Fentanyl Screen Ur Barbiturates Screen Ur Phencyclidine Scrn Ur Amphetamines Screen U Benzodiazepines Scrn Urine Cocaine Screen U Marijuana (THC) Screen 04/14/24 04/14/24 04/14/24 15:21 15:21 15:21 MCV MCH MCHC RDW Plt Count MPV Immature Gran % (Auto) Neut % (Auto) Lymph % (Auto) [place] % (Auto) Eos % (Auto) Baso % (Auto) Lymph # (Auto) [place] # (Auto) Eos # (Auto) Baso # (Auto) Abs Immat Gran (auto) Absolute Neuts (auto) Absolute Nucleated RBC Nucleated RBC % (auto) Neutrophils % (Manual) Cancelled Band Neutrophils % 1 L Cancelled Lymphocytes % (Manual) 27 Cancelled Atypical Lymphs % (Man) Cancelled Monocytes % (Manual) 17 H Eosinophils % (Manual) Basophils % (Manual) Metamyelocytes % Myelocytes % Promyelocytes % Blast Cells % (Manual) Plasma Cell % (Manual) Abs Neuts (Manual) Lymphocytes # (Manual) Atyp Lymphs # (Manual) Monocytes # (Manual) Eosinophils # (Manual) Basophils # (Manual) Metamyelocytes # Myelocytes # Promyelocytes # Blast Cells # Plasma Cell # (Manual) Nucleated RBCs Hypersegmented Neuts Smudge Cells Toxic Granulation Toxic Vacuolation Dohle Bodies Haley Rods WBC Morphology Comment Platelet Estimate Large Platelets Giant Platelets Plt Morphology Comment RBC Morphology Polychromasia Hypochromasia Basophilic Stippling Microcytosis Macrocytosis Spherocytes Pappenheimer Bodies Sickle Cells Target Cells Tear Drop Cells Ovalocytes Stomatocytes [place] Bodies Itmann Cells Acanthocytes (Spur) Rouleaux Schistocytes Troponin I High Sens Urine Color Urine Appearance Urine pH Ur Specific [place] Urine Protein Urine Glucose (UA) Urine Ketones Urine Blood Urine Nitrite Ur Leukocyte Esterase Urine Opiates Screen Ur Buprenorphine Scrn Ur Oxycodone Screen Urine Methadone Screen Urine Fentanyl Screen Ur Barbiturates Screen Ur Phencyclidine Scrn Ur Amphetamines Screen U Benzodiazepines Scrn Urine Cocaine Screen U Marijuana (THC) Screen 04/14/24 04/14/24 04/14/24 15:21 15:21 15:21 MCV MCH MCHC RDW Plt Count MPV Immature Gran % (Auto) Neut % (Auto) Lymph % (Auto) [place] % (Auto) Eos % (Auto) Baso % (Auto) Lymph # (Auto) [place] # (Auto) Eos # (Auto) Baso # (Auto) Abs Immat Gran (auto) Absolute Neuts (auto) Absolute Nucleated RBC Nucleated RBC % (auto) Neutrophils % (Manual) Band Neutrophils % Lymphocytes % (Manual) Atypical Lymphs % (Man) Monocytes % (Manual) Cancelled Eosinophils % (Manual) Cancelled Basophils % (Manual) 2 Cancelled Metamyelocytes % Cancelled Myelocytes % Cancelled Promyelocytes % Cancelled Blast Cells % (Manual) Cancelled Plasma Cell % (Manual) Cancelled Abs Neuts (Manual) 4.7 Cancelled Lymphocytes # (Manual) 2.3 Atyp Lymphs # (Manual) Monocytes # (Manual) Eosinophils # (Manual) Basophils # (Manual) Metamyelocytes # Myelocytes # Promyelocytes # Blast Cells # Plasma Cell # (Manual) Nucleated RBCs Hypersegmented Neuts Smudge Cells Toxic Granulation Toxic Vacuolation Dohle Bodies Haley Rods WBC Morphology Comment Platelet Estimate Large Platelets Giant Platelets Plt Morphology Comment RBC Morphology Polychromasia Hypochromasia Basophilic Stippling Microcytosis Macrocytosis Spherocytes Pappenheimer Bodies Sickle Cells Target Cells Tear Drop Cells Ovalocytes Stomatocytes [place] Bodies Itmann Cells Acanthocytes (Spur) Rouleaux Schistocytes Troponin I High Sens Urine Color Urine Appearance Urine pH Ur Specific [place] Urine Protein Urine Glucose (UA) Urine Ketones Urine Blood Urine Nitrite Ur Leukocyte Esterase Urine Opiates Screen Ur Buprenorphine Scrn Ur Oxycodone Screen Urine Methadone Screen Urine Fentanyl Screen Ur Barbiturates Screen Ur Phencyclidine Scrn Ur Amphetamines Screen U Benzodiazepines Scrn Urine Cocaine Screen U Marijuana (THC) Screen 04/14/24 04/14/24 04/14/24 15:21 15:21 15:21 MCV MCH MCHC RDW Plt Count MPV Immature Gran % (Auto) Neut % (Auto) Lymph % (Auto) [place] % (Auto) Eos % (Auto) Baso % (Auto) Lymph # (Auto) [place] # (Auto) Eos # (Auto) Baso # (Auto) Abs Immat Gran (auto) Absolute Neuts (auto) Absolute Nucleated RBC Nucleated RBC % (auto) Neutrophils % (Manual) Band Neutrophils % Lymphocytes % (Manual) Atypical Lymphs % (Man) Monocytes % (Manual) Eosinophils % (Manual) Basophils % (Manual) Metamyelocytes % Myelocytes % Promyelocytes % Blast Cells % (Manual) Plasma Cell % (Manual) Abs Neuts (Manual) Lymphocytes # (Manual) Cancelled Atyp Lymphs # (Manual) Cancelled Monocytes # (Manual) 1.5 H Cancelled Eosinophils # (Manual) Cancelled Basophils # (Manual) 0.2 Cancelled Metamyelocytes # Cancelled Myelocytes # Cancelled Promyelocytes # Cancelled Blast Cells # Cancelled Plasma Cell # (Manual) Cancelled Nucleated RBCs Cancelled Hypersegmented Neuts Cancelled Smudge Cells Cancelled Toxic Granulation Cancelled Toxic Vacuolation Cancelled Dohle Bodies Cancelled [place]aley Rods Cancelled WBC Morphology Comment Cancelled Platelet Estimate NORMAL Large Platelets Giant Platelets Plt Morphology Comment RBC Morphology Polychromasia Hypochromasia Basophilic Stippling Microcytosis Macrocytosis Spherocytes Pappenheimer Bodies Sickle Cells Target Cells Tear Drop Cells Ovalocytes Stomatocytes [place] Bodies Itmann Cells Acanthocytes (Spur) Rouleaux Schistocytes Troponin I High Sens Urine Color Urine Appearance Urine pH Ur Specific [place] Urine Protein Urine Glucose (UA) Urine Ketones Urine Blood Urine Nitrite Ur Leukocyte Esterase Urine Opiates Screen Ur Buprenorphine Scrn Ur Oxycodone Screen Urine Methadone Screen Urine Fentanyl Screen Ur Barbiturates Screen Ur Phencyclidine Scrn Ur Amphetamines Screen U Benzodiazepines Scrn Urine Cocaine Screen U Marijuana (THC) Screen 04/14/24 04/14/24 04/14/24 15:21 15:21 15:21 MCV MCH MCHC RDW Plt Count MPV Immature Gran % (Auto) Neut % (Auto) Lymph % (Auto) [place] % (Auto) Eos % (Auto) Baso % (Auto) Lymph # (Auto) [place] # (Auto) Eos # (Auto) Baso # (Auto) Abs Immat Gran (auto) Absolute Neuts (auto) Absolute Nucleated RBC Nucleated RBC % (auto) Neutrophils % (Manual) Band Neutrophils % Lymphocytes % (Manual) Atypical Lymphs % (Man) Monocytes % (Manual) Eosinophils % (Manual) Basophils % (Manual) Metamyelocytes % Myelocytes % Promyelocytes % Blast Cells % (Manual) Plasma Cell % (Manual) Abs Neuts (Manual) Lymphocytes # (Manual) Atyp Lymphs # (Manual) Monocytes # (Manual) Eosinophils # (Manual) Basophils # (Manual) Metamyelocytes # Myelocytes # Promyelocytes # Blast Cells # Plasma Cell # (Manual) Nucleated RBCs Hypersegmented Neuts Smudge Cells Toxic Granulation Toxic Vacuolation Dohle Bodies Haley Rods WBC Morphology Comment Platelet Estimate Cancelled Large Platelets Cancelled Giant Platelets Cancelled Plt Morphology Comment NORMAL Cancelled RBC Morphology NORMAL Cancelled Polychromasia Cancelled Hypochromasia Cancelled Basophilic Stippling Cancelled Microcytosis Cancelled Macrocytosis Cancelled Spherocytes Cancelled Pappenheimer Bodies Cancelled Sickle Cells Cancelled Target Cells Cancelled Tear Drop Cells Cancelled Ovalocytes Cancelled Stomatocytes Cancelled [place] Bodies Cancelled Itmann Cells Cancelled Acanthocytes (Spur) Cancelled Rouleaux Cancelled Schistocytes Cancelled Troponin I High Sens Urine Color Urine Appearance Urine pH Ur Specific [place] Urine Protein Urine Glucose (UA) Urine Ketones Urine Blood Urine Nitrite Ur Leukocyte Esterase Urine Opiates Screen Ur Buprenorphine Scrn Ur Oxycodone Screen Urine Methadone Screen Urine Fentanyl Screen Ur Barbiturates Screen Ur Phencyclidine Scrn Ur Amphetamines Screen U Benzodiazepines Scrn Urine Cocaine Screen U Marijuana (THC) Screen 04/14/24 04/15/24 18:38 03:54 MCV MCH MCHC RDW Plt Count MPV Immature Gran % (Auto) Neut % (Auto) Lymph % (Auto) [place] % (Auto) Eos % (Auto) Baso % (Auto) Lymph # (Auto) [place] # (Auto) Eos # (Auto) Baso # (Auto) Abs Immat Gran (auto) Absolute Neuts (auto) Absolute Nucleated RBC Nucleated RBC % (auto) Neutrophils % (Manual) Band Neutrophils % Lymphocytes % (Manual) Atypical Lymphs % (Man) Monocytes % (Manual) Eosinophils % (Manual) Basophils % (Manual) Metamyelocytes % Myelocytes % Promyelocytes % Blast Cells % (Manual) Plasma Cell % (Manual) Abs Neuts (Manual) Lymphocytes # (Manual) Atyp Lymphs # (Manual) Monocytes # (Manual) Eosinophils # (Manual) Basophils # (Manual) Metamyelocytes # Myelocytes # Promyelocytes # Blast Cells # Plasma Cell # (Manual) Nucleated RBCs Hypersegmented Neuts Smudge Cells Toxic Granulation Toxic Vacuolation Dohle Bodies Haley Rods WBC Morphology Comment Platelet Estimate Large Platelets Giant Platelets Plt Morphology Comment RBC Morphology Polychromasia Hypochromasia Basophilic Stippling Microcytosis Macrocytosis Spherocytes Pappenheimer Bodies Sickle Cells Target Cells Tear Drop Cells Ovalocytes Stomatocytes [place] Bodies Camelia Cells Acanthocytes (Spur) Rouleaux Schistocytes Troponin I High Sens 6.4 Urine Color Yellow Urine Appearance Clear Urine pH 7.0 Ur Specific [place] 1.010 Urine Protein Trace Urine Glucose (UA) Negative Urine Ketones Negative Urine Blood Negative Urine Nitrite Negative Ur Leukocyte Esterase Negative Urine Opiates Screen Not Detected Ur Buprenorphine Scrn Not Detected Ur Oxycodone Screen Not Detected Urine Methadone Screen Not Detected Urine Fentanyl Screen Not Detected Ur Barbiturates Screen Not Detected Ur Phencyclidine Scrn Not Detected Ur Amphetamines Screen Not Detected U Benzodiazepines Scrn Not Detected Urine Cocaine Screen Not Detected U Marijuana (THC) Screen Not Detected Assessment and Plan (1) Bipolar disorder: Qualifiers: Active/Remission status: remission status unspecified Qualified Code(s): F31.9 - Bipolar disorder, unspecified Status: Acute Plan 58F PMH depression, anemia, sigmoid adenocarcinoma s/p colostomy, in remission, completed chemo 3 week ptp, cad, pafib, chronic hyopxic respiratory failure on 2L home o2, hfpef, htn hld, presnted with confusion Acute metabolic encephalopathy Rule out pres versus chemo induced encephalopathy versus progression of dementia with psychotic features Check MRI Psychiatry appreciated, will add Haldol 1 mg b.i.d. for hallucinations Neuro eval Paroxysmal atrial fibrillation Continue metoprolol, Cardizem and Eliquis Hypertension Metoprolol, Cardizem, hydralazine Diabetes Insulin sliding scale Urinary retention Continue bladder scan Q shift with straight cath as needed Sigmoid adenocarcinoma In remission CAD Continue apixaban Chronic hypoxic respiratory failure due to COPD Stable Mood disorder Depakote, Cymbalta DVT prophylaxis with Eliquis Full Code Patient with significant change in mental status require at least 2 midnights inpatient complete workup and specialist consultation Quality Stroke Does the patient have a stroke diagnosis?: No VTE Prior VTE?: No VTE Risk Level:: Medical - moderate - high VTE Device Contraindication: Treatment Not Indicated VTE Drug Contraindication: N/A - Med Ordered
--- NOTE | 2024-04-15 17:40 | PC.NURSE ---
Pt refusing her omeprazole
--- NOTE | 2024-04-15 18:03 | PC.NURSE ---
Rectal temp checked due tot tachycardia, 100.8F. Will medicate with Tylenol. Pt was able to void small amount of urine on toilet, will bladder scan.
--- NOTE | 2024-04-15 18:05 | PC.NURSE ---
Attempted to complete MRI screening form but pt is too confused, attempted to call with no answer. MD and MRI notified.
[2024-04-15] MEDS: Acetaminophen 325 MG TABLET 650 MG PO (18:10)
--- NOTE | 2024-04-15 19:44 | PC.NURSE ---
Took over care from Georgia Hodges pt taken to x-ray.
[2024-04-15] MEDS: dilTIAZem HCL CD 240 MG CAP.ER.DEG PO (21:34)
[2024-04-15] MEDS: clonazePAM 1 MG TABLET PO (21:34)
[2024-04-15] MEDS: Atorvastatin Calcium 80 MG TABLET PO (21:35)
[2024-04-15] MEDS: 0.9 % Sodium Chloride Flush 3 ML SYRINGE IVFLUSH (21:37)
[2024-04-16] VITALS (8 sets, daily range): BP systolic 105–134; BP diastolic 54–88; PULSE 88–109; RESP 18–20; TEMP 36–36.5; O2SAT 91–97; BMI 31.0
--- NOTE | 2024-04-16 01:11 | PC.NURSE ---
0015- Patient agreeable to get oob and ambulate to the bathroom with assistance, gait little unsteady. Patient noted to void approx., 25ml. BTB and bladder scan revealed 944ml and pt stated to feel a little pressure but no pain. St Cath'd as per MD parameters and obtained 900ml yellow urine, slightly strong odor, tolerated well, felt relief afterwards, catheter removed intact. Will continue to monitor
--- NOTE | 2024-04-16 03:12 | PC.NURSE ---
note out of time order; for 2129-patient declined to take most scheduled PO medications. She accepted her Lipitor, Klonopin, and her Cardizem. she would not take the many others despite long explanations of each ones use, education, and importance of them. She responded with such statements as I know longer take that one , I don't need that, I stopped that one a long time ago........Attempts times three for each, will continue to monitor and offer again if patient willing. Patient was an ED admission which was completed by the unit chargemaster analyst and then care turned over to this telegraphic typewriter mechanic. Colostomy intact at mid abdomen, emptied for small amount liquid brown stool and flatus, no stated pain or discomforts, no open areas noted to skin. call manley within reach, HFR protocol in effect, sitter at bedside until only 0245, will continue to monitor closely.
[2024-04-16] MEDS: Omeprazole 20 MG CAPSULE.DR PO ×2 (06:27→16:07)
[2024-04-16 07:03] LABS: Hematocrit 38.2 % (37.0-47.0); Mean Corpuscular HGB Conc 31.4 g/dl (31.0-35.0); Mean Corpuscular Hemoglobin 32.6 pg (27.0-33.0); Mean Corpuscular Volume 103.8 fL (80.0-98.0); Platelet Count 244 X10*3/uL (160-400); Red Blood Count 3.68 X10*6/uL (4.20-5.50); Red Cell Distribution Width 18.2 % (11.0-16.0); White Blood Count 9.8 X10*3/uL (4.8-10.8)
[2024-04-16 07:20] LABS: Anion Gap 16 (12-20); Blood Urea Nitrogen 10 mg/dL (9-16); Calcium 9.2 mg/dL (8.4-10.2); Carbon Dioxide 23 mmol/L (22-29); Chloride 109 mmol/L (96-108); Creatinine Clr Calc Pharmacy 92.5; Estimated Glomerular Filt Rate > 60; Glucose Fasting 115 mg/dL (60-99); Sodium 145 mmol/L (135-145)
--- NOTE | 2024-04-16 09:06 | P.PNIM_ITS ---
Subjective Subjective Date of Service: 04/16/24 Interval History: feeling tired Physical Exam 2 Vital Signs: Vital Signs: Last Vital Signs Temp 96.8 F 04/16/24 07:17 Pulse 109 H 04/16/24 07:17 Resp 18 04/16/24 07:17 BP 120/80 04/16/24 07:17 Pulse Ox 92 04/16/24 07:17 O2 Del Method Room Air 04/16/24 07:17 BMI result Body Mass Index 31.0 General: AO X 3, no acute distress Resp: CTA bilateral, no accessory muscles used CVS: S1,S2,RRR GI: soft, non tender, non distended Neuro: motor grossly intact, alert Psych: appropriate affect, some difficulty with recall, but was able to explain why she was in hospital, no further hallucinations today Objective Data Active Medications Acetaminophen (Acetaminophen 325 Mg Tablet) 650 mg PO Q6H PRN PRN Reason: Pain, Mild (Pain Scale 1-3), fever or headache Last Admin: 04/15/24 18:10 Dose: 650 mg Documented By: SACHA Apixaban (Apixaban 5 Mg Tablet) 5 mg PO BID [facility] Last Admin: 04/15/24 21:35 Dose: Not Given Documented By: FREDRICK Non-Admin Reason: Patient Refused Atorvastatin Calcium (Atorvastatin Calcium 80 Mg Tablet) 80 mg PO BEDTIME [facility] Last Admin: 04/15/24 21:35 Dose: 80 mg Documented By: FREDRICK Calcium Carbonate (Calcium Carbonate 750 Mg Tab.Chew) 750 mg PO Q4H PRN PRN Reason: Heartburn Clonazepam (Clonazepam 1 Mg Tablet) 1 mg PO BID [facility] Last Admin: 04/15/24 21:34 Dose: 1 mg Documented By: FREDRICK Diltiazem HCl (Diltiazem Hcl Cd 240 Mg Cap.Er.Deg) 240 mg PO BEDTIME LONG; Protocol Last Admin: 04/15/24 21:34 Dose: 240 mg Documented By: FREDRICK Diphenoxylate HCl/Atropine (Diphenoxylate/Atrop 2.5/0.025 Tablet) 1 tab PO BID PRN PRN Reason: Diarrhea Divalproex Sodium (Divalproex Sodium Er 500 Mg Tab.Er.24h) 1,000 mg PO BEDTIME [facility] Last Admin: 04/15/24 21:36 Dose: Not Given Documented By: FREDRICK Non-Admin Reason: Patient Refused Divalproex Sodium (Divalproex Sodium Er 500 Mg Tab.Er.24h) 500 mg PO DAILY [facility] Duloxetine HCl (Duloxetine Hcl 60 Mg Capsule.) 60 mg PO BEDTIME [facility] Last Admin: 04/15/24 21:36 Dose: Not Given Documented By: FREDRICK Non-Admin Reason: Patient Refused Fenofibrate (Fenofibrate 160 Mg Tablet) 160 mg PO BEDTIME [facility] Last Admin: 04/15/24 21:36 Dose: Not Given Documented By: FREDRICK Non-Admin Reason: Patient Refused Ferrous Sulfate (Ferrous Sulfate 324 Mg Tablet.) 324 mg PO BID [facility] Last Admin: 04/15/24 21:37 Dose: Not Given Documented By: FREDRICK Non-Admin Reason: Patient Refused Fluticasone/Vilanterol (Fluticasone/Vilanterol 100/25 Blst.W.Dev) 1 puff INHALE RDAILY [facility] Haloperidol (Haloperidol 1 Mg Tablet) 1 mg PO BID [facility] Last Admin: 04/15/24 21:37 Dose: Not Given Documented By: FREDRICK Non-Admin Reason: Patient Refused Hydralazine HCl (Hydralazine Hcl 50 Mg Tablet) 50 mg PO TID [facility]; Protocol Last Admin: 04/15/24 21:37 Dose: Not Given Documented By: FREDRICK Non-Admin Reason: Patient Refused Lactulose (Lactulose 20 Gm/30 Ml Solution) 10 gm PO DAILY PRN PRN Reason: high ammonia Magnesium Hydroxide (Milk Of Magnesia 30 Ml Oral.Susp) 30 ml PO DAILY PRN PRN Reason: Constipation Melatonin (Melatonin 3 Mg Tablet) 6 mg PO BEDTIME PRN PRN Reason: Insomnia Metoprolol Succinate (Metoprolol Succinate Er 50 Mg Tab.Er.24h) 50 mg PO DAILY [facility]; Protocol Omeprazole (Omeprazole 20 Mg Capsule.) 20 mg PO BID@0630,1630 [facility] Last Admin: 04/16/24 06:27 Dose: 20 mg Documented By: FREDRICK Sodium Chloride (0.9 % Sodium Chloride Flush 3 Ml Syringe) 3 ml IVFLUSH QSHIFT [facility] Last Admin: 04/15/24 21:37 Dose: 3 ml Documented By: FREDRICK Tiotropium [place] (Tiotropium [place] 2.5 Mcg 1 Puff/2.5 Mcg Mist.Inhal) 2 puff INHALE RDAILY LONG Labs 04/16/24 05:48 04/16/24 05:48 Labs: Laboratory Results - last 24 hr 04/16/24 05:48 MCV 103.8 H MCH 32.6 MCHC 31.4 RDW 18.2 H Plt Count 244 MPV 11.0 Absolute Nucleated RBC 0.000 Nucleated RBC % (auto) 0.0 Anion Gap 16 Estim Creat Clear Calc 92.5 Estimated GFR > 60 Fasting Glucose 115 H Calcium 9.2 D Assessment and Plan (1) Depression: Status: Acute Plan 58F PMH depression, anemia, sigmoid adenocarcinoma s/p colostomy, in remission, completed chemo 3 week ptp, cad, pafib, chronic hyopxic respiratory failure on 2L home o2, hfpef, htn hld, presnted with confusion Acute metabolic encephalopathy Rule out pres versus chemo induced encephalopathy versus progression of dementia with psychotic features Check MRI Psychiatry appreciated, added Haldol 1 mg b.i.d. for hallucinations Neuro eval check tsh, b12, folate, esr, crp Paroxysmal atrial fibrillation Continue metoprolol, Cardizem and Eliquis Hypertension Metoprolol, Cardizem, hydralazine now better controlled Diabetes Insulin sliding scale Urinary retention Continue bladder scan Q shift with straight cath as needed Sigmoid adenocarcinoma In remission CAD Continue apixaban Chronic hypoxic respiratory failure due to COPD Stable Mood disorder Depakote, Cymbalta DVT prophylaxis with Eliquis Full Code reason for continued hospitalization:working up [facility] Quality Stroke Does the patient have a stroke diagnosis?: No VTE Prior VTE?: No VTE Risk Level:: Medical - moderate - high VTE Device Contraindication: Treatment Not Indicated VTE Drug Contraindication: N/A - Med Ordered
--- NOTE | 2024-04-16 09:23 | MHC.CM.PN ---
CM assessment completed w/ /HCP Allen, as patient confused at this time. IMM delivered. Patient lives in an apartment w/ . Has EARLY CHILDHOOD ASSISTANT services w/ [facility] 20 hrs/wk. EARLY CHILDHOOD ASSISTANT's and assist w/ ADL's. Ambulates w/ walker and cane. Uses 2L home O2, supplied by [employer]. Completed chemo 3 weeks ago. PCP Chelsea Armstrong MD HCP/[facility] on file and verified. DP: 's goal is for patient to return home w/ EARLY CHILDHOOD ASSISTANT services and potentially [facility]. Has used [facility] in the past and would prefer to use them again. Referral sent via [employer]. CM will continue to follow.
--- NOTE | 2024-04-16 09:54 | P.CNNE_ITS ---
History of Present Illness Data of Consult Service Date: 04/16/24 Primary Care Provider: Chelsea Armstrong MD HPI Reason for consult: Altered mental status This is a 58yr old woman with h/o depression, anemia, sigmoid adenocarcinoma s/p colostomy, in remission, completed chemo 3 week ago, CAD, Atr fib , chronic hypoxic respiratory failure on 2L home o2, HBP. HLD, presented with confusion and altered mental status. For about 2-3 weeks prior to admission, she has had increased confusion, talking to people who were not present, visual hallucinations, poor memory retention. Denies previous symptoms, has noted some cognitive decline over the past 2 years, accelerated after of son in 08/23/2023. Does have family history of early-onset dementia. Denies headache, fever, chills, shortness of breath. Initially presented to ED 04/11/2024 with hypotension and altered mental status, that resolved and was discharged home. Then returned to 04/14/2024, initially planned for psychiatry eval, however, medical admission requested to rule out chemo induced encephalopathy.Overnight, she has cleared significantly. She is now oriented to person, place, month and year but not the date. Her she denies any headache or dizziness. She knows the names of her doctors. [facility] Past Medical History Medical History Smoker Chronic back pain Colostomy in place (~2020) Personal history of nicotine dependence Polysubstance (including opioids) dependence, binge pattern Atrial fibrillation with rapid ventricular response Congestive heart failure Restrictive lung disease COPD (chronic obstructive pulmonary disease) No natural teeth COVID-19 vaccine series completed History of COVID-19 (~04/2020) Oxygen dependent Pericardial effusion Other and unspecified hyperlipidemia Essential hypertension Peripheral vascular disease Preoperative cardiovascular examination Bilateral pneumonia Adenocarcinoma of sigmoid colon (~2020) Hypernatremia GI bleed UTI (urinary tract infection) Pleural effusion, left Colon cancer (~2020) IVY (obstructive sleep apnea) Cancer of lower lobe of left lung (~2020) GERD (gastroesophageal reflux disease) Acute and chronic respiratory failure Lung cancer Obesity Hypoventilation associated with obesity Obesity hypoventilation syndrome Respiratory failure with hypoxia and hypercapnia Rotator cuff strain Hypoxia Pneumonia Restless legs syndrome (RLS) Sleep disorder Bipolar disorder (~2009) Back pain with history of spinal surgery Renal failure Fibromyalgia Depression High cholesterol PTSD (post-traumatic stress disorder) CAD (coronary artery disease) HTN (hypertension) Family History Family History Maternal Aunt Breast cancer Stroke COPD (chronic obstructive pulmonary disease) Maternal Aunt Breast cancer COPD (chronic obstructive pulmonary disease) Mother Uterine cancer COPD (chronic obstructive pulmonary disease) HTN (hypertension) Heart disease Mental health disorder Maternal Uncle Stroke Paternal Grandmother Heart attack Parkinsons disease Sister Diabetes IBS (irritable bowel syndrome) Son HTN (hypertension) Substance use disorder Daughter HTN (hypertension) Father HTN (hypertension) Brother Heart disease Family/Other Mental health disorder Surgical History Surgical History History of partial colectomy (~12/2020) History of cardiac cath (~2010) History of hysterectomy (~1990) History of cholecystectomy History of appendectomy (~1982) History of colonoscopy (~08/2020) History of lobectomy of lung (~08/2020) History of esophagogastroduodenoscopy (EGD) History of bunionectomy (~1977) History of back surgery Social History Social History Household Members: Spouse Housing: Apartment Are you a primary campground caretaker to a significant other at home: No Do you presently have visiting nurse or other home services: No Alcohol intake: never Comment: sitter at bedside Patient Tobacco Use Status: Former Tobacco user Tobacco use type: Cigarette Cigarettes Per Day: 4 Years Smoked: 40 Smoked in Last 30 Days: No e-Cigarette/Vaping Use: Former Use Patient Interested in Nicotine Replacement: No Patient Given Instructions on How to Stop Smoking: No Second Hand Smoke Exposure: No Use of substances other than those prescribed or required for medical reasons: No Currently Displaying Signs/Symptoms of Drug Intoxication Withdrawal: No Any prior treatment program specific to substance use: No Have you been hit, kicked, punched, or otherwise hurt by someone within the past year? If so, by whom?: No Do you feel safe in your current relationship?: Yes Is there a partner from a previous relationship who is making you feel unsafe now?: No Are you made to feel afraid or neglected: No Advance Directives: Yes Advance Directives Information Provided: No Advance Directives on File: Yes Advance Directives Date on File: 10/05/22 Do you have a plan to hurt others: No Plan Recently lost weight without trying: No How much weight loss: Not applicable Eating poorly because of decreased appetite: No Nutrition screen score: 0 Patient : No : No Poor oral hygiene: Yes service: No Current occupational status: unemployed and disabled Cognitive needs: Yes (walker ) Hearing needs: No Vision needs: No Meds Allergies Allergy/AdvReac Type Severity Reaction Status Date / Time Penicillins Allergy Mild Rash Verified 04/14/24 13:39 venlafaxine [From Effexor] Allergy Mild Rash Verified 04/14/24 13:39 cyclobenzaprine Allergy Unknown Unknown Verified 04/14/24 13:39 [Cyclobenzaprine] topiramate [From Topamax] Allergy Unknown Unknown Verified 04/14/24 13:39 levofloxacin [From Levaquin] AdvReac Severe Diarrhea Verified 04/14/24 13:39 Sulfa (Sulfonamide AdvReac Severe Diarrhea Verified 04/14/24 13:39 Antibiotics) fentanyl [FENTANYL] AdvReac Intermediate Hallucinati Verified 04/14/24 13:39 ons Active Medications: Current Medications Acetaminophen (Acetaminophen 325 Mg Tablet) 650 mg PO Q6H PRN PRN Reason: Pain, Mild (Pain Scale 1-3), fever or headache Last Admin: 04/15/24 18:10 Dose: 650 mg Apixaban (Apixaban 5 Mg Tablet) 5 mg PO BID [facility] Last Admin: 04/15/24 21:35 Dose: Not Given Atorvastatin Calcium (Atorvastatin Calcium 80 Mg Tablet) 80 mg PO BEDTIME LONG Last Admin: 04/15/24 21:35 Dose: 80 mg Calcium Carbonate (Calcium Carbonate 750 Mg Tab.Chew) 750 mg PO Q4H PRN PRN Reason: Heartburn Clonazepam (Clonazepam 1 Mg Tablet) 1 mg PO BID [facility] Last Admin: 04/15/24 21:34 Dose: 1 mg Diltiazem HCl (Diltiazem Hcl Cd 240 Mg Cap.Er.Deg) 240 mg PO BEDTIME LONG; Protocol Last Admin: 04/15/24 21:34 Dose: 240 mg Diphenoxylate HCl/Atropine (Diphenoxylate/Atrop 2.5/0.025 Tablet) 1 tab PO BID PRN PRN Reason: Diarrhea Divalproex Sodium (Divalproex Sodium Er 500 Mg Tab.Er.24h) 1,000 mg PO BEDTIME [facility] Last Admin: 04/15/24 21:36 Dose: Not Given Divalproex Sodium (Divalproex Sodium Er 500 Mg Tab.Er.24h) 500 mg PO DAILY [facility] Duloxetine HCl (Duloxetine Hcl 60 Mg Capsule.) 60 mg PO BEDTIME [facility] Last Admin: 04/15/24 21:36 Dose: Not Given Fenofibrate (Fenofibrate 160 Mg Tablet) 160 mg PO BEDTIME [facility] Last Admin: 04/15/24 21:36 Dose: Not Given Ferrous Sulfate (Ferrous Sulfate 324 Mg Tablet.) 324 mg PO BID [facility] Last Admin: 04/15/24 21:37 Dose: Not Given Fluticasone/Vilanterol (Fluticasone/Vilanterol 100/25 Blst.W.Dev) 1 puff INHALE RDAILY [facility] Haloperidol (Haloperidol 1 Mg Tablet) 1 mg PO BID [facility] Last Admin: 04/15/24 21:37 Dose: Not Given Hydralazine HCl (Hydralazine Hcl 50 Mg Tablet) 50 mg PO TID [facility]; Protocol Last Admin: 04/15/24 21:37 Dose: Not Given Lactulose (Lactulose 20 Gm/30 Ml Solution) 10 gm PO DAILY PRN PRN Reason: high ammonia Magnesium Hydroxide (Milk Of Magnesia 30 Ml Oral.Susp) 30 ml PO DAILY PRN PRN Reason: Constipation Melatonin (Melatonin 3 Mg Tablet) 6 mg PO BEDTIME PRN PRN Reason: Insomnia Metoprolol Succinate (Metoprolol Succinate Er 50 Mg Tab.Er.24h) 50 mg PO DAILY [facility]; Protocol Omeprazole (Omeprazole 20 Mg Capsule.) 20 mg PO BID@0630,1630 [facility] Last Admin: 04/16/24 06:27 Dose: 20 mg Sodium Chloride (0.9 % Sodium Chloride Flush 3 Ml Syringe) 3 ml IVFLUSH QSHIFT [facility] Last Admin: 04/15/24 21:37 Dose: 3 ml Tiotropium [place] (Tiotropium [place] 2.5 Mcg 1 Puff/2.5 Mcg Mist.Inhal) 2 puff INHALE RDAILY [facility] Home Medications ?Medication ?Instructions ?Recorded ?Confirmed ?Last Taken ?Type blood pressure monitor #1 ea 10/22/20 04/09/2421 History blood pressure test kit-large #1 ea 10/22/20 04/09/24 11/28/20 History docusate sodium 100 mg capsule 100 mg PO BID PRN constipation 09/21/21 04/15/24 Unknown History diltiazem HCl 240 mg 240 mg PO BEDTIME 04/15/24 04/15/24 Unknown History capsule,extended release 24 hr (Cardizem CD) divalproex 500 mg tablet,extended 1,000 mg PO BEDTIME 04/15/24 04/15/24 Unknown History release 24 hr fenofibrate 160 mg tablet 160 mg PO BEDTIME 04/15/24 04/15/24 Unknown History fluticasone furoate 100 1 ea inhalation DAILY 04/15/24 04/15/24 Unknown History mcg-vilanterol 25 mcg/dose inhalation powder (Breo Ellipta) lactulose 10 gram/15 mL oral 15 ml PO DAILY PRN high ammonia 04/15/24 04/15/24 Unknown History solution (Constulose) metoprolol succinate 50 mg 50 mg PO DAILY 04/15/24 04/15/24 Unknown History tablet,extended release 24 hr omeprazole 20 mg capsule,delayed 20 mg PO BID@0630,1630 04/15/24 04/15/24 Unknown History release ondansetron 8 mg disintegrating 8 mg PO QID PRN Nausea vomiting 04/15/24 04/15/24 Unknown History tablet Physical Exam 2 Vital Signs: Vital Signs: Last Vital Signs Temp 96.8 F 04/16/24 07:17 Pulse 109 H 04/16/24 07:17 Resp 18 04/16/24 07:17 BP 120/80 04/16/24 07:17 Pulse Ox 92 04/16/24 07:17 O2 Del Method Room Air 04/16/24 07:17 BMI result Body Mass Index 31.0 Neuro: Other: She's alert, pleasant and cooperative with the examination her speech and language function and comprehension are normal. She is oriented to person and place month and year but did not know the date or the exact day in April. She denies any complaints. She follows commands. Cranial nerves II through XII are normal. There is no facial asymmetry or droop. Muscle tone and strength are normal in all 4 extremities. Neck is supple. Plantar response are flexor. Results Labs 04/16/24 05:48 04/16/24 05:48 Labs: Short CBC 04/16/24 Range/Units 05:48 WBC 9.8 (4.8-10.8) X10*3/uL Hgb 12.0 (12.0-16.0) g/dl Hct 38.2 (37.0-47.0) % Plt Count 244 (160-400) X10*3/uL BMP 04/16/24 05:48 Sodium 145 Potassium 3.0 L D Chloride 109 H Carbon Dioxide 23 BUN 10 Creatinine 0.67 Calcium 9.2 D Assessment and Plan (1) Encephalopathy: Status: Acute Her encephalopathy an admission appears to be significantly improved. This is suggestive of either metabolic or drug-induced encephalopathy. CAT scan does not show any acute abnormality. Recommendation EEG to rule out partial seizures. As long as the patient continues to improve back to baseline further imaging studies are not necessary. However, if she takes a step back then, an MRI of the brain would recommended. Procedures Date of Service Date of Service: 04/16/24
[2024-04-16 10:05] LABS: C Reactive Protein 2.02 mg/dL (< or = 0.50)
[2024-04-16 10:11] LABS: Thyroid Stimulating Hormone 1.04 uIU/mL (0.32-4.0)
[2024-04-16 10:15] LABS: Erythrocyte Sedimentation Rate 25 MM/HR (0-20)
[2024-04-16 10:24] LABS: Folate 17.6 ng/mL (> or = 4.0); Vitamin B12 235 pg/mL (200-900)
[2024-04-16] MEDS: Potassium Chloride ER 20 MEQ TAB.ER.PRT 40 MEQ PO (10:26)
[2024-04-16] MEDS: Ferrous Sulfate 324 MG TABLET.DR PO ×2 (10:26→21:19)
[2024-04-16] MEDS: clonazePAM 1 MG TABLET PO ×2 (10:26→21:18)
[2024-04-16] MEDS: hydrALAZINE HCl 50 MG TABLET PO ×3 (10:27→21:19)
[2024-04-16] MEDS: Apixaban 5 MG TABLET PO ×2 (10:27→21:18)
[2024-04-16] MEDS: Metoprolol Succinate ER 50 MG TAB.ER.24H PO (10:28)
[2024-04-16] MEDS: 0.9 % Sodium Chloride Flush 3 ML SYRINGE IVFLUSH ×3 (10:28→21:21)
[2024-04-16] MEDS: HaloperidoL 1 MG TABLET PO ×2 (10:28→21:18)
[2024-04-16] MEDS: Divalproex Sodium ER 500 MG TAB.ER.24H PO (10:37)
[2024-04-16] MEDS: Cyanocobalamin (Vitamin B-12) 1,000 MCG/ML VIAL 1000 MCG IM (11:55)
[2024-04-16] MEDS: Tiotropium Bromide 2.5 mcg 1 PUFF/2.5 MCG MIST.INHAL 2 PUFF INHALE (12:37)
[2024-04-16] MEDS: Fluticasone/Vilanterol 100/25 BLST.W.DEV 1 PUFF INHALE (12:37)
[2024-04-16] MEDS: Acetaminophen 325 MG TABLET 650 MG PO (13:48)
[2024-04-16 16:20] LABS: Glucose, Whole Blood 107 mg/dL (60-115)
[2024-04-16] MEDS: dilTIAZem HCL CD 240 MG CAP.ER.DEG PO (21:17)
[2024-04-16] MEDS: Divalproex Sodium ER 500 MG TAB.ER.24H 1000 MG PO (21:18)
[2024-04-16] MEDS: DULoxetine HCl 60 MG CAPSULE.DR PO (21:19)
[2024-04-16] MEDS: Fenofibrate 160 MG TABLET PO (21:19)
[2024-04-16] MEDS: Atorvastatin Calcium 80 MG TABLET PO (21:19)
--- NOTE | 2024-04-17 | EEG_ITS ---
FINDINGS: The waking background activity consists of a moderate voltage posterior 8 hertz alpha frequency, intermixed with low-voltage fast frequencies and muscle artifact anteriorly. Mild slowing is seen intermittently from the temporal region and rare sharp transients are seen from the temporal regions, left greater than right, suggesting some elements of cerebral irritability. Photic stimulation is without activation. Hyperventilation was omitted. IMPRESSION: This EEG is considered mildly abnormal due to mild scattered slowing mostly in the temporal region and rare sharp transients that suggest some elements of cerebral irritability. These findings have not developed well enough to be diagnostic or seizure disorder. Clinical correlation is suggested. MD MIKKI Chang/EDVIN / [id number]
[2024-04-17 03:31] VITALS: BP 125/59; PULSE 95; RESP 16; TEMP 36.1; O2SAT 94
[2024-04-17] MEDS: Omeprazole 20 MG CAPSULE.DR PO ×2 (05:57→15:22)
[2024-04-17 07:11] LABS: Hematocrit 34.5 % (37.0-47.0); Hemoglobin 10.9 g/dl (12.0-16.0); Mean Corpuscular HGB Conc 31.6 g/dl (31.0-35.0); Mean Corpuscular Hemoglobin 33.1 pg (27.0-33.0); Mean Corpuscular Volume 104.9 fL (80.0-98.0); Mean Platelet Volume 10.4 fL (9.4-12.3); Platelet Count 297 X10*3/uL (160-400); Red Blood Count 3.29 X10*6/uL (4.20-5.50); Red Cell Distribution Width 17.7 % (11.0-16.0); White Blood Count 14.9 X10*3/uL (4.8-10.8)
[2024-04-17 07:23] VITALS: BP 126/64; PULSE 97; RESP 18; TEMP 37.5; O2SAT 94
[2024-04-17 07:30] LABS: Anion Gap 16 (12-20); Blood Urea Nitrogen 10 mg/dL (9-16); Carbon Dioxide 24 mmol/L (22-29); Chloride 104 mmol/L (96-108); Creatinine Clr Calc Pharmacy 84.8; Estimated Glomerular Filt Rate > 60; Glucose Fasting 103 mg/dL (60-99); Potassium 3.8 mmol/L (3.3-5.1); Sodium 140 mmol/L (135-145)
[2024-04-17] MEDS: Metoprolol Succinate ER 50 MG TAB.ER.24H PO (07:59)
[2024-04-17] MEDS: Divalproex Sodium ER 500 MG TAB.ER.24H PO (07:59)
[2024-04-17] MEDS: hydrALAZINE HCl 50 MG TABLET PO ×3 (07:59→20:13)
[2024-04-17] MEDS: HaloperidoL 1 MG TABLET PO ×2 (07:59→20:13)
[2024-04-17] MEDS: Cyanocobalamin (Vitamin B-12) 1,000 MCG TABLET 1000 MCG PO (07:59)
[2024-04-17] MEDS: Ferrous Sulfate 324 MG TABLET.DR PO ×2 (08:00→20:13)
[2024-04-17] MEDS: clonazePAM 1 MG TABLET PO ×2 (08:00→20:13)
[2024-04-17] MEDS: 0.9 % Sodium Chloride Flush 3 ML SYRINGE IVFLUSH ×2 (08:00→15:22)
[2024-04-17] MEDS: Apixaban 5 MG TABLET PO ×2 (08:00→20:13)
[2024-04-17 08:30] VITALS: PULSE 97; RESP 18; O2SAT 92
[2024-04-17] MEDS: Tiotropium Bromide 2.5 mcg 1 PUFF/2.5 MCG MIST.INHAL 2 PUFF INHALE (08:30)
[2024-04-17] MEDS: Fluticasone/Vilanterol 100/25 BLST.W.DEV 1 PUFF INHALE (08:30)
[2024-04-17 09:02] LABS: Appearance Urine Clear; Color Urine Yellow; Glucose Urine UA Negative (Negative); Leukocyte Esterase Urine Moderate (2+) (Negative); Nitrite Urine Negative (Negative); UMIC TRIGGER UACC YES; Urine Blood Negative (Negative); Urine Ketones Negative (Negative); Urine Protein Trace mg/dL (Neg-Trace)
[2024-04-17 09:13] LABS: Bacteria Urine 1+ (None Seen); Hyaline Casts Urine 0-2 /LPF (0-2); Squamous Epithelial Cell Urine 0-2 /HPF (0-2); UACC Culture Trigger YES; WBC Urine 21-50 /HPF (0-5)
--- NOTE | 2024-04-17 14:41 | HO.PM.IMPN ---
Subjective Subjective Date of Service: 04/17/24 Interval History: seen and evaluated feels better, back to baseline no reported encephalopathy overnight Review of Systems Review of Systems: Yes all other systems are reviewed and are negative Physical Exam Vital Signs: Vital Signs: Last Vital Signs Temp 99.5 F 04/17/24 07:23 Pulse 97 04/17/24 08:30 Resp 18 04/17/24 08:30 BP 126/64 04/17/24 07:23 Pulse Ox 94 04/17/24 07:23 O2 Del Method Room Air 04/17/24 07:23 BMI result Body Mass Index 31.0 Const: Other: Constitutional : interactive, not in distress Cardiovascular : no JVP, no lower extremity edema Respiratory : bilateral chest movement, not in resp distress Gastrointestinal: soft, lax, Non tender Skin : Warm, Dry Neurological : Alert & oriented , No focal deficit Objective Data Active Medications Acetaminophen (Acetaminophen 325 Mg Tablet) 650 mg PO Q6H PRN PRN Reason: Pain, Mild (Pain Scale 1-3), fever or headache Last Admin: 04/16/24 13:48 Dose: 650 mg Documented By: ZAYDA Apixaban (Apixaban 5 Mg Tablet) 5 mg PO BID [facility] Last Admin: 04/17/24 08:00 Dose: 5 mg Documented By: NEFTALY Atorvastatin Calcium (Atorvastatin Calcium 80 Mg Tablet) 80 mg PO BEDTIME [facility] Last Admin: 04/16/24 21:19 Dose: 80 mg Documented By: LUIS Calcium Carbonate (Calcium Carbonate 750 Mg Tab.Chew) 750 mg PO Q4H PRN PRN Reason: Heartburn Clonazepam (Clonazepam 1 Mg Tablet) 1 mg PO BID [facility] Last Admin: 04/17/24 08:00 Dose: 1 mg Documented By: NEFTALY Cyanocobalamin (Cyanocobalamin (Vitamin B-12) 1,000 Mcg Tablet) 1,000 mcg PO DAILY [facility] Last Admin: 04/17/24 07:59 Dose: 1,000 mcg Documented By: NEFTALY Diltiazem HCl (Diltiazem Hcl Cd 240 Mg Cap.Er.Deg) 240 mg PO BEDTIME [facility]; Protocol Last Admin: 04/16/24 21:17 Dose: 240 mg Documented By: LUIS Diphenoxylate HCl/Atropine (Diphenoxylate/Atrop 2.5/0.025 Tablet) 1 tab PO BID PRN PRN Reason: Diarrhea Divalproex Sodium (Divalproex Sodium Er 500 Mg Tab.Er.24h) 1,000 mg PO BEDTIME [facility] Last Admin: 04/16/24 21:18 Dose: 1,000 mg Documented By: LUIS Divalproex Sodium (Divalproex Sodium Er 500 Mg Tab.Er.24h) 500 mg PO DAILY [facility] Last Admin: 04/17/24 07:59 Dose: 500 mg Documented By: NEFTALY Duloxetine HCl (Duloxetine Hcl 60 Mg Capsule.) 60 mg PO BEDTIME [facility] Last Admin: 04/16/24 21:19 Dose: 60 mg Documented By: LUIS Fenofibrate (Fenofibrate 160 Mg Tablet) 160 mg PO BEDTIME [facility] Last Admin: 04/16/24 21:19 Dose: 160 mg Documented By: LUIS Ferrous Sulfate (Ferrous Sulfate 324 Mg Tablet.) 324 mg PO BID [facility] Last Admin: 04/17/24 08:00 Dose: 324 mg Documented By: NEFTALY Fluticasone/Vilanterol (Fluticasone/Vilanterol 100/25 Blst.W.Dev) 1 puff INHALE RDAILY [facility] Last Admin: 04/17/24 08:30 Dose: 1 puff Documented By: PEDRO LUIS Haloperidol (Haloperidol 1 Mg Tablet) 1 mg PO BID [facility] Last Admin: 04/17/24 07:59 Dose: 1 mg Documented By: NEFTALY Hydralazine HCl (Hydralazine Hcl 50 Mg Tablet) 50 mg PO TID [facility]; Protocol Last Admin: 04/17/24 14:09 Dose: 50 mg Documented By: NEFTALY Lactulose (Lactulose 20 Gm/30 Ml Solution) 10 gm PO DAILY PRN PRN Reason: high ammonia Magnesium Hydroxide (Milk Of Magnesia 30 Ml Oral.Susp) 30 ml PO DAILY PRN PRN Reason: Constipation Melatonin (Melatonin 3 Mg Tablet) 6 mg PO BEDTIME PRN PRN Reason: Insomnia Metoprolol Succinate (Metoprolol Succinate Er 50 Mg Tab.Er.24h) 50 mg PO DAILY [facility]; Protocol Last Admin: 04/17/24 07:59 Dose: 50 mg Documented By: NEFTALY Nystatin (Nystatin Ointment 15 Gm Tube) 1 appl TOPICAL BID [facility]; Protocol Last Admin: 04/17/24 08:01 Dose: Not Given Documented By: NEFTALY Non-Admin Reason: Med Not Available Omeprazole (Omeprazole 20 Mg Capsule.) 20 mg PO BID@0630,1630 [facility] Last Admin: 04/17/24 05:57 Dose: 20 mg Documented By: LUIS Sodium Chloride (0.9 % Sodium Chloride Flush 3 Ml Syringe) 3 ml IVFLUSH QSHIFT [facility] Last Admin: 04/17/24 08:00 Dose: 3 ml Documented By: NEFTALY Tiotropium [place] (Tiotropium [place] 2.5 Mcg 1 Puff/2.5 Mcg Mist.Inhal) 2 puff INHALE RDAILY [facility] Last Admin: 04/17/24 08:30 Dose: 2 puff Documented By: PEDRO LUIS Labs 04/17/24 05:38 04/17/24 05:38 Labs: Laboratory Results - last 24 hr 04/16/24 04/17/24 04/17/24 16:07 05:38 08:50 MCV 104.9 H MCH 33.1 H MCHC 31.6 RDW 17.7 H Plt Count 297 MPV 10.4 Absolute Nucleated RBC 0.000 Nucleated RBC % (auto) 0.0 Anion Gap 16 Estim Creat Clear Calc 84.8 Estimated GFR > 60 POC Glucose 107 Fasting Glucose 103 H Calcium 9.0 Urine Color Yellow Urine Appearance Clear Urine pH 6.0 Ur Specific [place] 1.010 Urine Protein Trace Urine Glucose (UA) Negative Urine Ketones Negative Urine Blood Negative Urine Nitrite Negative Ur Leukocyte Esterase Moderate (2+) H Urine RBC 6-10 H Urine WBC 21-50 Ur Squamous Epith Cells 0-2 Urine Bacteria 1+ Hyaline Casts 0-2 Assessment and Plan (1) Encephalopathy: Status: Acute (2) Chronic confusion: Status: Acute Plan 58F PMH depression, anemia, sigmoid adenocarcinoma s/p colostomy, in remission, completed chemo 3 week ptp, cad, pafib, chronic hyopxic respiratory failure on 2L home o2, hfpef, htn hld, presnted with confusion Acute toxic\metabolic encephalopathy Rule out press versus chemo induced encephalopathy versus progression of dementia with psychotic features or polypharmacy improving NEgative MRI for any acute findings pending EEG Psychiatry appreciated, added Haldol 1 mg b.i.d. for hallucinations Neuro eval appreciated normal tsh, b12, folate, mildly elevated esr, crp Leukocytosis no clear source of infection UA suspecious for UTI give Ceftriaxone Paroxysmal atrial fibrillation Continue metoprolol, Cardizem and Eliquis Hypertension Metoprolol, Cardizem, hydralazine now better controlled Diabetes Insulin sliding scale Urinary retention Doty in place, consider DC if tolerated and straight cath as needed Sigmoid adenocarcinoma In remission CAD Continue apixaban Chronic hypoxic respiratory failure due to COPD Stable Mood disorder Depakote, Cymbalta DVT prophylaxis with Eliquis Full Code reason for continued hospitalization:working up Encephalopathy Quality Stroke Does the patient have a stroke diagnosis?: No VTE Prior VTE?: No VTE Risk Level:: Medical - moderate - high VTE Device Contraindication: Treatment Not Indicated VTE Drug Contraindication: N/A - Med Ordered
[2024-04-17 15:13] VITALS: BP 125/66; PULSE 83; RESP 20; TEMP 36.7; O2SAT 94
[2024-04-17] MEDS: Acetaminophen 325 MG TABLET 650 MG PO ×2 (15:22→20:13)
[2024-04-17] MEDS: cefTRIAXone sodium 1 GM VIAL IVPUSH (16:07)
[2024-04-17 19:46] VITALS: BP 131/76; PULSE 88; RESP 20; TEMP 36.4; O2SAT 97
[2024-04-17] MEDS: dilTIAZem HCL CD 240 MG CAP.ER.DEG PO (20:12)
[2024-04-17] MEDS: Fenofibrate 160 MG TABLET PO (20:13)
[2024-04-17] MEDS: Divalproex Sodium ER 500 MG TAB.ER.24H 1000 MG PO (20:13)
[2024-04-17] MEDS: Atorvastatin Calcium 80 MG TABLET PO (20:13)
[2024-04-17] MEDS: Nystatin Ointment 15 GM TUBE 1 APPL TOPICAL (20:14)
[2024-04-17] MEDS: DULoxetine HCl 60 MG CAPSULE.DR PO (20:14)
[2024-04-18] MEDS: 0.9 % Sodium Chloride Flush 3 ML SYRINGE IVFLUSH ×4 (00:45→20:55)
[2024-04-18 03:35] VITALS: BP 124/58; PULSE 84; RESP 18; TEMP 36.2; O2SAT 93
[2024-04-18] MEDS: Omeprazole 20 MG CAPSULE.DR PO ×2 (05:32→16:07)
[2024-04-18 07:37] LABS: Hematocrit 34.4 % (37.0-47.0); Hemoglobin 10.7 g/dl (12.0-16.0); Mean Corpuscular HGB Conc 31.1 g/dl (31.0-35.0); Mean Corpuscular Hemoglobin 32.2 pg (27.0-33.0); Mean Corpuscular Volume 103.6 fL (80.0-98.0); Mean Platelet Volume 10.3 fL (9.4-12.3); Platelet Count 311 X10*3/uL (160-400); Red Blood Count 3.32 X10*6/uL (4.20-5.50); Red Cell Distribution Width 17.2 % (11.0-16.0); White Blood Count 17.1 X10*3/uL (4.8-10.8)
[2024-04-18 07:51] LABS: Anion Gap 17 (12-20); Blood Urea Nitrogen 10 mg/dL (9-16); Calcium 9.3 mg/dL (8.4-10.2); Carbon Dioxide 25 mmol/L (22-29); Chloride 102 mmol/L (96-108); Creatinine Clr Calc Pharmacy 92.5; Estimated Glomerular Filt Rate > 60; Glucose Random 98 mg/dL (60-115); Potassium 3.7 mmol/L (3.3-5.1); Sodium 140 mmol/L (135-145)
[2024-04-18 07:57] VITALS: BP 113/60; PULSE 89; RESP 18; TEMP 36.1; O2SAT 93
[2024-04-18] MEDS: Cyanocobalamin (Vitamin B-12) 1,000 MCG TABLET 1000 MCG PO (08:40)
[2024-04-18] MEDS: hydrALAZINE HCl 50 MG TABLET PO ×3 (08:40→20:56)
[2024-04-18] MEDS: Metoprolol Succinate ER 50 MG TAB.ER.24H PO (08:40)
[2024-04-18] MEDS: Divalproex Sodium ER 500 MG TAB.ER.24H PO (08:40)
[2024-04-18] MEDS: clonazePAM 1 MG TABLET PO ×2 (08:40→20:57)
[2024-04-18] MEDS: Apixaban 5 MG TABLET PO ×2 (08:40→20:57)
[2024-04-18 08:41] LABS: Basophils Absolute Auto 0.1 X10*3/uL (0.0-0.2); Basophils Percent Auto 0.4 % (0-2); Eosinophils Absolute Auto 0.1 X10*3/uL (0.0-0.4); Eosinophils Percent Auto 0.7 % (0-4); Imm Gran Abs Auto 0.36 X10*3/uL (0.00-0.03); Imm Gran Pct Auto 2.1 % (0.0-0.4); Lymphocytes Absolute Auto 3.9 X10*3/uL (1.2-4.9); Lymphocytes Percent Auto 22.8 % (20-40); MANUAL DIFF FLAG SCAN; Monocytes Absolute Auto 1.9 X10*3/uL (0.1-1.2); Monocytes Percent Auto 11.4 % (2-11); Neutrophils Absolute Auto 10.6 x10*3/uL (2.0-8.3); Neutrophils Percent Auto 62.6 % (45-73); SCAN SMEAR FLAG 1
[2024-04-18] MEDS: Ferrous Sulfate 324 MG TABLET.DR PO ×2 (08:41→21:00)
[2024-04-18] MEDS: HaloperidoL 1 MG TABLET PO (08:41)
[2024-04-18] MEDS: Tiotropium Bromide 2.5 mcg 1 PUFF/2.5 MCG MIST.INHAL 2 PUFF INHALE (08:54)
[2024-04-18] MEDS: Fluticasone/Vilanterol 100/25 BLST.W.DEV 1 PUFF INHALE (08:54)
[2024-04-18 08:58] VITALS: PULSE 89; RESP 16; O2SAT 95
[2024-04-18 09:00] LABS: SLIDE REVIEW VERIFIED
[2024-04-18 09:24] LABS: Erythrocyte Sedimentation Rate 44 MM/HR (0-20)
--- NOTE | 2024-04-18 15:23 | P.PNIM_ITS ---
Subjective Subjective Date of Service: 04/18/24 Interval History: seen and evaluated feels better, back to baseline having urine retention Increased leukocytosis, no fever or chills Review of Systems Review of Systems: Yes all other systems are reviewed and are negative Physical Exam 2 Vital Signs: Vital Signs: Last Vital Signs Temp 97.0 F 04/18/24 07:57 Pulse 89 04/18/24 08:58 Resp 16 04/18/24 08:58 BP 113/60 04/18/24 07:57 Pulse Ox 93 04/18/24 07:57 O2 Del Method Room Air 04/18/24 07:57 BMI result Body Mass Index 31.0 Const: Other: Constitutional : interactive, not in distress Cardiovascular : no JVP, no lower extremity edema Respiratory : bilateral chest movement, not in resp distress Gastrointestinal: soft, lax, Non tender Skin : Warm, Dry Neurological : Alert & oriented , No focal deficit Objective Data Active Medications Acetaminophen (Acetaminophen 325 Mg Tablet) 650 mg PO Q6H PRN PRN Reason: Pain, Mild (Pain Scale 1-3), fever or headache Last Admin: 04/17/24 20:13 Dose: 650 mg Documented By: JYOTI Apixaban (Apixaban 5 Mg Tablet) 5 mg PO BID [facility] Last Admin: 04/18/24 08:40 Dose: 5 mg Documented By: ANA Atorvastatin Calcium (Atorvastatin Calcium 80 Mg Tablet) 80 mg PO BEDTIME [facility] Last Admin: 04/17/24 20:13 Dose: 80 mg Documented By: JYOTI Calcium Carbonate (Calcium Carbonate 750 Mg Tab.Chew) 750 mg PO Q4H PRN PRN Reason: Heartburn Ceftriaxone Sodium (Ceftriaxone Sodium 1 Gm Vial) 1 gm IVPUSH Q24H [facility] Last Admin: 04/17/24 16:07 Dose: 1 gm Documented By: JYOTI Clonazepam (Clonazepam 1 Mg Tablet) 1 mg PO BID [facility] Last Admin: 04/18/24 08:40 Dose: 1 mg Documented By: ANA Cyanocobalamin (Cyanocobalamin (Vitamin B-12) 1,000 Mcg Tablet) 1,000 mcg PO DAILY [facility] Last Admin: 04/18/24 08:40 Dose: 1,000 mcg Documented By: ANA Diltiazem HCl (Diltiazem Hcl Cd 240 Mg Cap.Er.Deg) 240 mg PO BEDTIME [facility]; Protocol Last Admin: 04/17/24 20:12 Dose: 240 mg Documented By: JYOTI Diphenoxylate HCl/Atropine (Diphenoxylate/Atrop 2.5/0.025 Tablet) 1 tab PO BID PRN PRN Reason: Diarrhea Divalproex Sodium (Divalproex Sodium Er 500 Mg Tab.Er.24h) 1,000 mg PO BEDTIME [facility] Last Admin: 04/17/24 20:13 Dose: 1,000 mg Documented By: JYOTI Divalproex Sodium (Divalproex Sodium Er 500 Mg Tab.Er.24h) 500 mg PO DAILY [facility] Last Admin: 04/18/24 08:40 Dose: 500 mg Documented By: ANA Duloxetine HCl (Duloxetine Hcl 60 Mg Capsule.) 60 mg PO BEDTIME [facility] Last Admin: 04/17/24 20:14 Dose: 60 mg Documented By: JYOTI Fenofibrate (Fenofibrate 160 Mg Tablet) 160 mg PO BEDTIME [facility] Last Admin: 04/17/24 20:13 Dose: 160 mg Documented By: JYOTI Ferrous Sulfate (Ferrous Sulfate 324 Mg Tablet.) 324 mg PO BID [facility] Last Admin: 04/18/24 08:41 Dose: 324 mg Documented By: ANA Fluticasone/Vilanterol (Fluticasone/Vilanterol 100/25 Blst.W.Dev) 1 puff INHALE RDAILY [facility] Last Admin: 04/18/24 08:54 Dose: 1 puff Documented By: DMITRY Haloperidol (Haloperidol 1 Mg Tablet) 1 mg PO BID [facility] Last Admin: 04/18/24 08:41 Dose: 1 mg Documented By: ANA Hydralazine HCl (Hydralazine Hcl 50 Mg Tablet) 50 mg PO TID [facility]; Protocol Last Admin: 04/18/24 08:40 Dose: 50 mg Documented By: ANA Lactulose (Lactulose 20 Gm/30 Ml Solution) 10 gm PO DAILY PRN PRN Reason: high ammonia Magnesium Hydroxide (Milk Of Magnesia 30 Ml Oral.Susp) 30 ml PO DAILY PRN PRN Reason: Constipation Melatonin (Melatonin 3 Mg Tablet) 6 mg PO BEDTIME PRN PRN Reason: Insomnia Metoprolol Succinate (Metoprolol Succinate Er 50 Mg Tab.Er.24h) 50 mg PO DAILY [facility]; Protocol Last Admin: 04/18/24 08:40 Dose: 50 mg Documented By: ANA Nystatin (Nystatin Ointment 15 Gm Tube) 1 appl TOPICAL BID [facility]; Protocol Last Admin: 04/18/24 11:50 Dose: Not Given Documented By: ANA Non-Admin Reason: Previously Administered Omeprazole (Omeprazole 20 Mg Capsule.) 20 mg PO BID@0630,1630 [facility] Last Admin: 04/18/24 05:32 Dose: 20 mg Documented By: ANTOIC Sodium Chloride (0.9 % Sodium Chloride Flush 3 Ml Syringe) 3 ml IVFLUSH QSHIFT [facility] Last Admin: 04/18/24 08:44 Dose: 3 ml Documented By: ANA Tiotropium [place] (Tiotropium [place] 2.5 Mcg 1 Puff/2.5 Mcg Mist.Inhal) 2 puff INHALE RDAILY [facility] Last Admin: 04/18/24 08:54 Dose: 2 puff Documented By: DMITRY Labs 04/18/24 05:33 04/18/24 05:33 Labs: Laboratory Results - last 24 hr 04/18/24 05:33 MCV 103.6 H MCH 32.2 MCHC 31.1 RDW 17.2 H Plt Count 311 MPV 10.3 Immature Gran % (Auto) 2.1 H Neut % (Auto) 62.6 Lymph % (Auto) 22.8 [place] % (Auto) 11.4 H Eos % (Auto) 0.7 Baso % (Auto) 0.4 Lymph # (Auto) 3.9 [place] # (Auto) 1.9 H Eos # (Auto) 0.1 Baso # (Auto) 0.1 Abs Immat Gran (auto) 0.36 H Absolute Neuts (auto) 10.6 H Absolute Nucleated RBC 0.000 Nucleated RBC % (auto) 0.0 Smear Tech's Comments VERIFIED ESR 44 H Anion Gap 17 Estim Creat Clear Calc 92.5 Estimated GFR > 60 Random Glucose 98 Calcium 9.3 Microbiology Microbiology Results: Microbiology 04/17/24 Unknown Urine Culture - Preliminary Urine Catheterized - Doty Catheter Culture in progress. Assessment and Plan (1) Encephalopathy: Status: Acute (2) Fibromyalgia: Status: Acute (3) Acute retention of urine: Status: Acute Plan 58F PMH depression, anemia, sigmoid adenocarcinoma s/p colostomy, in remission, completed chemo 3 week ptp, cad, pafib, chronic hyopxic respiratory failure on 2L home o2, hfpef, htn hld, presnted with confusion Acute toxic\metabolic encephalopathy Rule out PRESS vs chemo induced encephalopathy versus progression of dementia with psychotic features or polypharmacy improving NEgative MRI for any acute findings pending EEG Psychiatry appreciated, added Haldol 1 mg b.i.d. for hallucinations Neuro eval appreciated normal tsh, b12, folate, mildly elevated esr, [place] [address] no clear source of infection Elevated ESR UA suspecious for UTI give Ceftriaxone pending cultures acute Urinary retention Failed voiding trial post Doty removal Urology consult start Tamsulosin straight cath as needed Paroxysmal atrial fibrillation Continue metoprolol, Cardizem and Eliquis Hypertension Metoprolol, Cardizem, hydralazine now better controlled Diabetes Insulin sliding scale Sigmoid adenocarcinoma In remission CAD Continue apixaban Chronic hypoxic respiratory failure due to COPD Stable Mood disorder Depakote, Cymbalta DVT prophylaxis with Eliquis Full Code reason for continued hospitalization:working up Leukocytosis, retention, elevated ESR and psychiatric medications Quality Stroke Does the patient have a stroke diagnosis?: No VTE Prior VTE?: No VTE Risk Level:: Medical - moderate - high VTE Device Contraindication: Treatment Not Indicated VTE Drug Contraindication: N/A - Med Ordered
[2024-04-18 15:30] VITALS: BP 136/63; PULSE 94; RESP 20; TEMP 36.1; O2SAT 97
[2024-04-18] MEDS: cefTRIAXone sodium 1 GM VIAL IVPUSH (16:07)
[2024-04-18] MEDS: Tamsulosin HCL 0.4 MG CAPSULE PO (16:09)
--- NOTE | 2024-04-18 17:05 | P.CNUR_ITS ---
History of Present Illness Consult details Consult date: 04/18/24 Narrative: CC: Urinary retention 58-year-old female Past history of recent sigmoid colostomy 09/26 and chemotherapy COPD on home O2 CVD with HFpEF Presented with confusion. Ongoing for past 2-3 weeks. Noted cognitive decline. Had been admitted for medical evaluation prior to psychiatric eval. As part of this evaluation found to have urinary retention. Unable to void. Has been straight catheterization with 600 cc residual. Prior Doty catheter with voiding failure after 48 hours. If continuing to require straight catheterization with high residual would benefit for Doty catheter for one-week using a cap to empty every 4-6 hours Should be on combination alpha-katharine - tamsulosin - with bethanechol Review of Systems 2 Constitutional: Constitutional: Reports as per HPI and Reports no additional constitutional complaints Cardiovascular: Cardiovascular: Reports as per HPI and Reports no additional cardiovascular complaints Respiratory: Respiratory: Reports as per HPI and Reports no additional respiratory complaints Gastrointestinal: Gastrointestinal: Reports as per HPI and Reports no additional gastrointestinal complaints Genitourinary: Genitourinary: Reports as per HPI Musculoskeletal: Musculoskeletal: Reports no additional musculoskeletal complaints and Reports as per HPI Neurologic: Reports system reviewed and no additional complaints, except as documented and Reports as per HPI [facility] Past Medical History Medical History Smoker Chronic back pain Colostomy in place (~2020) Personal history of nicotine dependence Polysubstance (including opioids) dependence, binge pattern Atrial fibrillation with rapid ventricular response Congestive heart failure Restrictive lung disease COPD (chronic obstructive pulmonary disease) No natural teeth COVID-19 vaccine series completed History of COVID-19 (~04/2020) Oxygen dependent Pericardial effusion Other and unspecified hyperlipidemia Essential hypertension Peripheral vascular disease Preoperative cardiovascular examination Bilateral pneumonia Adenocarcinoma of sigmoid colon (~2020) Hypernatremia GI bleed UTI (urinary tract infection) Pleural effusion, left Colon cancer (~2020) IVY (obstructive sleep apnea) Cancer of lower lobe of left lung (~2020) GERD (gastroesophageal reflux disease) Acute and chronic respiratory failure Lung cancer Obesity Hypoventilation associated with obesity Obesity hypoventilation syndrome Respiratory failure with hypoxia and hypercapnia Rotator cuff strain Hypoxia Pneumonia Restless legs syndrome (RLS) Sleep disorder Bipolar disorder (~2009) Back pain with history of spinal surgery Renal failure Fibromyalgia Depression High cholesterol PTSD (post-traumatic stress disorder) CAD (coronary artery disease) HTN (hypertension) Family History Family History Maternal Aunt Breast cancer Stroke COPD (chronic obstructive pulmonary disease) Maternal Aunt Breast cancer COPD (chronic obstructive pulmonary disease) Mother Uterine cancer COPD (chronic obstructive pulmonary disease) HTN (hypertension) Heart disease Mental health disorder Maternal Uncle Stroke Paternal Grandmother Heart attack Parkinsons disease Sister Diabetes IBS (irritable bowel syndrome) Son HTN (hypertension) Substance use disorder Daughter HTN (hypertension) Father HTN (hypertension) Brother Heart disease Family/Other Mental health disorder Surgical History Surgical History History of partial colectomy (~12/2020) History of cardiac cath (~2010) History of hysterectomy (~1990) History of cholecystectomy History of appendectomy (~1982) History of colonoscopy (~08/2020) History of lobectomy of lung (~08/2020) History of esophagogastroduodenoscopy (EGD) History of bunionectomy (~1977) History of back surgery Social History Social History Household Members: Spouse Housing: Apartment Are you a primary care transport nurse to a significant other at home: No Do you presently have visiting nurse or other home services: No Alcohol intake: never Comment: sitter at bedside Patient Tobacco Use Status: Former Tobacco user Tobacco use type: Cigarette Cigarettes Per Day: 4 Years Smoked: 40 Smoked in Last 30 Days: No e-Cigarette/Vaping Use: Former Use Patient Interested in Nicotine Replacement: No Patient Given Instructions on How to Stop Smoking: No Second Hand Smoke Exposure: No Use of substances other than those prescribed or required for medical reasons: No Currently Displaying Signs/Symptoms of Drug Intoxication Withdrawal: No Any prior treatment program specific to substance use: No Have you been hit, kicked, punched, or otherwise hurt by someone within the past year? If so, by whom?: No Do you feel safe in your current relationship?: Yes Is there a partner from a previous relationship who is making you feel unsafe now?: No Are you made to feel afraid or neglected: No Advance Directives: Yes Advance Directives Information Provided: No Advance Directives on File: Yes Advance Directives Date on File: 10/05/22 Do you have a plan to hurt others: No Plan Recently lost weight without trying: No How much weight loss: Not applicable Eating poorly because of decreased appetite: No Nutrition screen score: 0 Patient : No : No Poor oral hygiene: Yes service: No Current occupational status: unemployed and disabled Cognitive needs: Yes (walker ) Hearing needs: No Vision needs: No Meds Allergies Allergy/AdvReac Type Severity Reaction Status Date / Time Penicillins Allergy Mild Rash Verified 04/14/24 13:39 venlafaxine [From Effexor] Allergy Mild Rash Verified 04/14/24 13:39 cyclobenzaprine Allergy Unknown Unknown Verified 04/14/24 13:39 [Cyclobenzaprine] topiramate [From Topamax] Allergy Unknown Unknown Verified 04/14/24 13:39 levofloxacin [From Levaquin] AdvReac Severe Diarrhea Verified 04/14/24 13:39 Sulfa (Sulfonamide AdvReac Severe Diarrhea Verified 04/14/24 13:39 Antibiotics) fentanyl [FENTANYL] AdvReac Intermediate Hallucinati Verified 04/14/24 13:39 ons Active Medications: Current Medications Acetaminophen (Acetaminophen 325 Mg Tablet) 650 mg PO Q6H PRN PRN Reason: Pain, Mild (Pain Scale 1-3), fever or headache Last Admin: 04/17/24 20:13 Dose: 650 mg Apixaban (Apixaban 5 Mg Tablet) 5 mg PO BID [facility] Last Admin: 04/18/24 08:40 Dose: 5 mg Atorvastatin Calcium (Atorvastatin Calcium 80 Mg Tablet) 80 mg PO BEDTIME [facility] Last Admin: 04/17/24 20:13 Dose: 80 mg Calcium Carbonate (Calcium Carbonate 750 Mg Tab.Chew) 750 mg PO Q4H PRN PRN Reason: Heartburn Ceftriaxone Sodium (Ceftriaxone Sodium 1 Gm Vial) 1 gm IVPUSH Q24H [facility] Last Admin: 04/18/24 16:07 Dose: 1 gm Clonazepam (Clonazepam 1 Mg Tablet) 1 mg PO BID [facility] Last Admin: 04/18/24 08:40 Dose: 1 mg Cyanocobalamin (Cyanocobalamin (Vitamin B-12) 1,000 Mcg Tablet) 1,000 mcg PO DAILY [facility] Last Admin: 04/18/24 08:40 Dose: 1,000 mcg Diltiazem HCl (Diltiazem Hcl Cd 240 Mg Cap.Er.Deg) 240 mg PO BEDTIME [facility]; Protocol Last Admin: 04/17/24 20:12 Dose: 240 mg Diphenoxylate HCl/Atropine (Diphenoxylate/Atrop 2.5/0.025 Tablet) 1 tab PO BID PRN PRN Reason: Diarrhea Divalproex Sodium (Divalproex Sodium Er 500 Mg Tab.Er.24h) 1,000 mg PO BEDTIME [facility] Last Admin: 04/17/24 20:13 Dose: 1,000 mg Divalproex Sodium (Divalproex Sodium Er 500 Mg Tab.Er.24h) 500 mg PO DAILY [facility] Last Admin: 04/18/24 08:40 Dose: 500 mg Duloxetine HCl (Duloxetine Hcl 60 Mg Capsule.) 60 mg PO BEDTIME [facility] Last Admin: 04/17/24 20:14 Dose: 60 mg Fenofibrate (Fenofibrate 160 Mg Tablet) 160 mg PO BEDTIME [facility] Last Admin: 04/17/24 20:13 Dose: 160 mg Ferrous Sulfate (Ferrous Sulfate 324 Mg Tablet.) 324 mg PO BID [facility] Last Admin: 04/18/24 08:41 Dose: 324 mg Fluticasone/Vilanterol (Fluticasone/Vilanterol 100/25 Blst.W.Dev) 1 puff INHALE RDAILY [facility] Last Admin: 04/18/24 08:54 Dose: 1 puff Hydralazine HCl (Hydralazine Hcl 50 Mg Tablet) 50 mg PO TID [facility]; Protocol Last Admin: 04/18/24 16:07 Dose: 50 mg Lactulose (Lactulose 20 Gm/30 Ml Solution) 10 gm PO DAILY PRN PRN Reason: high ammonia Magnesium Hydroxide (Milk Of Magnesia 30 Ml Oral.Susp) 30 ml PO DAILY PRN PRN Reason: Constipation Melatonin (Melatonin 3 Mg Tablet) 6 mg PO BEDTIME PRN PRN Reason: Insomnia Metoprolol Succinate (Metoprolol Succinate Er 50 Mg Tab.Er.24h) 50 mg PO DAILY [facility]; Protocol Last Admin: 04/18/24 08:40 Dose: 50 mg Nystatin (Nystatin Ointment 15 Gm Tube) 1 appl TOPICAL BID [facility]; Protocol Last Admin: 04/18/24 11:50 Dose: Not Given Omeprazole (Omeprazole 20 Mg Capsule.) 20 mg PO BID@0630,1630 [facility] Last Admin: 04/18/24 16:07 Dose: 20 mg Sodium Chloride (0.9 % Sodium Chloride Flush 3 Ml Syringe) 3 ml IVFLUSH QSHIFT [facility] Last Admin: 04/18/24 16:17 Dose: 3 ml Tamsulosin HCl (Tamsulosin Hcl 0.4 Mg Capsule) 0.4 mg PO DAILY [facility] Last Admin: 04/18/24 16:09 Dose: 0.4 mg Tiotropium [place] (Tiotropium [place] 2.5 Mcg 1 Puff/2.5 Mcg Mist.Inhal) 2 puff INHALE RDAILY [facility] Last Admin: 04/18/24 08:54 Dose: 2 puff Home Medications ?Medication ?Instructions ?Recorded ?Confirmed ?Last Taken ?Type blood pressure monitor #1 ea 10/22/20 04/09/24 11/28/20 History blood pressure test kit-large #1 ea 10/22/20 04/09/24 11/28/20 History docusate sodium 100 mg capsule 100 mg PO BID PRN constipation 09/21/21 04/15/24 Unknown History diltiazem HCl 240 mg 240 mg PO BEDTIME 04/15/24 04/15/24 Unknown History capsule,extended release 24 hr (Cardizem CD) divalproex 500 mg tablet,extended 1,000 mg PO BEDTIME 04/15/24 04/15/24 Unknown History release 24 hr fenofibrate 160 mg tablet 160 mg PO BEDTIME 04/15/24 04/15/24 Unknown History fluticasone furoate 100 1 ea inhalation DAILY 04/15/24 04/15/24 Unknown History mcg-vilanterol 25 mcg/dose inhalation powder (Breo Ellipta) lactulose 10 gram/15 mL oral 15 ml PO DAILY PRN high ammonia 04/15/24 04/15/24 Unknown History solution (Constulose) metoprolol succinate 50 mg 50 mg PO DAILY 04/15/24 04/15/24 Unknown History tablet,extended release 24 hr omeprazole 20 mg capsule,delayed 20 mg PO BID@0630,1630 04/15/24 04/15/24 Unknown History release ondansetron 8 mg disintegrating 8 mg PO QID PRN Nausea vomiting 04/15/24 04/15/24 Unknown History tablet Physical Exam 2 Vital Signs: Vital Signs: Last Vital Signs Temp 96.9 F 04/18/24 15:30 Pulse 94 04/18/24 15:30 Resp 20 04/18/24 15:30 BP 136/63 04/18/24 15:30 Pulse Ox 97 04/18/24 15:30 O2 Del Method Room Air 04/18/24 15:30 BMI result Body Mass Index 31.0 Const: General: cooperative, healthy appearing, comfortable and no acute distress Orientation/consciousness: patient oriented x3 HEENT: Face and sinus: Yes normal facial exam Mouth: moist mucous membranes Neck: Neck: Yes normal visual inspection, Yes full ROM and Yes trachea midline Chest: Chest palpation & inspection: normal inspection of the chest Resp: Effort & Inspection: normal respiratory effort, able to speak in complete sentences and no respiratory distress GI: Inspection: Yes normal to inspection Back/Spine/Pelvis: Cervical Spine: normal cervical lordosis Thoracic/Lumbar Spine: thoracic and lumbar spine normal to inspection Skin: General skin exam: no rashes or lesions noted Neuro: General: patient oriented x3, tone normal and moves all extremities Extrem: General: Yes normal to inspection and Yes capillary refill normal Results Labs 04/18/24 05:33 04/18/24 05:33 Labs: Abnormal lab results 04/18/24 Range/Units 05:33 WBC 17.1 H (4.8-10.8) X10*3/uL RBC 3.32 L (4.20-5.50) X10*6/uL Hgb 10.7 L (12.0-16.0) g/dl Hct 34.4 L (37.0-47.0) % MCV 103.6 H (80.0-98.0) fL RDW 17.2 H (11.0-16.0) % Immature Gran % (Auto) 2.1 H (0.0-0.4) % Desha % (Auto) 11.4 H (2-11) % Desha # (Auto) 1.9 H (0.1-1.2) X10*3/uL Abs Immat Gran (auto) 0.36 H (0.00-0.03) X10*3/uL Absolute Neuts (auto) 10.6 H (2.0-8.3) x10*3/uL ESR 44 H (0-20) MM/HR Short CBC 04/18/24 Range/Units 05:33 WBC 17.1 H (4.8-10.8) X10*3/uL Hgb 10.7 L (12.0-16.0) g/dl Hct 34.4 L (37.0-47.0) % Plt Count 311 (160-400) X10*3/uL BMP 04/18/24 05:33 Sodium 140 Potassium 3.7 Chloride 102 Carbon Dioxide 25 BUN 10 Creatinine 0.67 Calcium 9.3 Urine 04/15/24 04/17/24 Range/Units 03:54 08:50 Urine Color Yellow Yellow Urine Appearance Clear Clear Urine pH 7.0 6.0 (5.0-9.0) Ur Specific [place] 1.010 1.010 (1.005-1.025) Urine Protein Trace Trace (Neg-Trace) mg/dL Urine Glucose (UA) Negative Negative (Negative) mg/dL All other labs normal. Assessment and Plan (1) Acute retention of urine: Status: Acute Plan If continues to need straight catheterization more than 4 times would benefit Doty catheter and use of cap in order to empty bladder every 4-6 hours. Optimize on medications for emptying. Would then need outpatient follow-up voiding trial. Procedures Date of Service Date of Service: 04/18/24
[2024-04-18 19:44] VITALS: BP 116/69; PULSE 93; RESP 20; TEMP 36.4; O2SAT 93
[2024-04-18] MEDS: Fenofibrate 160 MG TABLET PO (20:56)
[2024-04-18] MEDS: dilTIAZem HCL CD 240 MG CAP.ER.DEG PO (20:56)
[2024-04-18] MEDS: Bethanechol Chloride 25 MG TABLET 50 MG PO (20:56)
[2024-04-18] MEDS: DULoxetine HCl 60 MG CAPSULE.DR PO (20:57)
[2024-04-18] MEDS: Atorvastatin Calcium 80 MG TABLET PO (20:57)
[2024-04-18] MEDS: Divalproex Sodium ER 500 MG TAB.ER.24H 1000 MG PO (20:58)
[2024-04-18] MEDS: Nystatin Ointment 15 GM TUBE 1 APPL TOPICAL (21:00)
[2024-04-18] MEDS: Acetaminophen 325 MG TABLET 650 MG PO (23:19)
[2024-04-19 04:00] VITALS: BP 135/63; PULSE 96; RESP 18; TEMP 36.7; O2SAT 92
[2024-04-19] MEDS: Omeprazole 20 MG CAPSULE.DR PO (06:05)
[2024-04-19 06:36] LABS: Hematocrit 33.9 % (37.0-47.0); Hemoglobin 10.5 g/dl (12.0-16.0); Mean Corpuscular Hemoglobin 32.5 pg (27.0-33.0); Mean Platelet Volume 10.4 fL (9.4-12.3); Platelet Count 340 X10*3/uL (160-400); Red Blood Count 3.23 X10*6/uL (4.20-5.50); Red Cell Distribution Width 17.3 % (11.0-16.0); White Blood Count 11.9 X10*3/uL (4.8-10.8)
[2024-04-19 06:56] LABS: Anion Gap 16 (12-20); Blood Urea Nitrogen 11 mg/dL (9-16); Calcium 9.4 mg/dL (8.4-10.2); Carbon Dioxide 24 mmol/L (22-29); Chloride 103 mmol/L (96-108); Creatinine Clr Calc Pharmacy 92.5; Estimated Glomerular Filt Rate > 60; Glucose Random 123 mg/dL (60-115); Potassium 3.6 mmol/L (3.3-5.1); Sodium 139 mmol/L (135-145)
[2024-04-19 07:45] VITALS: BP 138/71; PULSE 95; RESP 17; TEMP 36.2; O2SAT 93
[2024-04-19 07:58] VITALS: PULSE 95; RESP 17; O2SAT 96
[2024-04-19] MEDS: Fluticasone/Vilanterol 100/25 BLST.W.DEV 1 PUFF INHALE (07:58)
[2024-04-19] MEDS: Tiotropium Bromide 2.5 mcg 1 PUFF/2.5 MCG MIST.INHAL 2 PUFF INHALE (07:58)
[2024-04-19] MEDS: Ferrous Sulfate 324 MG TABLET.DR PO (08:49)
[2024-04-19] MEDS: Bethanechol Chloride 25 MG TABLET 50 MG PO (08:49)
[2024-04-19] MEDS: 0.9 % Sodium Chloride Flush 3 ML SYRINGE IVFLUSH (08:49)
[2024-04-19] MEDS: clonazePAM 1 MG TABLET PO (08:49)
[2024-04-19] MEDS: Apixaban 5 MG TABLET PO (08:50)
[2024-04-19] MEDS: Cyanocobalamin (Vitamin B-12) 1,000 MCG TABLET 1000 MCG PO (08:50)
[2024-04-19] MEDS: Tamsulosin HCL 0.4 MG CAPSULE PO (08:50)
[2024-04-19] MEDS: Divalproex Sodium ER 500 MG TAB.ER.24H PO (08:53)
[2024-04-19 08:55] VITALS: BP 119/66; PULSE 89
[2024-04-19] MEDS: Metoprolol Succinate ER 50 MG TAB.ER.24H PO (08:55)
[2024-04-19] MEDS: hydrALAZINE HCl 50 MG TABLET PO (08:55)
[2024-04-19] MEDS: Nystatin Ointment 15 GM TUBE 1 APPL TOPICAL (09:10)
[2024-04-19] MEDS: Acetaminophen 325 MG TABLET 650 MG PO (11:53)
--- NOTE | 2024-04-19 12:14 | MHC.CM.PN ---
Addendum entered by Erika Baig RN 04/19/24 12:15: IMM delivered. Original Note: Per MD rounds patient medically cleared for dc home w/ and [facility] for SN/polo management. Patient a+ox3. Agreeable to plan. will provide transport home. RN aware.
--- NOTE | 2024-04-19 12:48 | PM.DS ---
DS: Providers Provider Date of Service: 04/19/24 Date of admission: 04/15/24 16:58 Date of discharge: 04/19/24 Primary care physician: Chelsea Armstrong MD Consults: 04/14/24 14:32 Consult to Care Team Stat Comment: Reason for consultation: Increasing depression 04/14/24 18:03 Consult to Psychiatry Stat Consulting Provider: Psych Covering Reason for consultation: ? chemo induced psychosis 04/15/24 16:57 Consult to Neurology Routine Consulting Provider: [facility] Reason for consultation: ams 04/18/24 10:51 Consult to Urology Routine Consulting Provider: [facility] [place] [facility] Reason for consultation: recurrent retention, polypharmacy, eval and rec. DS: Diagnosis Discharge Diagnosis (1) Acute retention of urine: Status: Acute (2) Encephalopathy: Status: Acute (3) UTI (urinary tract infection): Status: Acute DS: Summary Hospital Course Hospital Course: Admission note HPI 58F PMH depression, anemia, sigmoid adenocarcinoma s/p colostomy, in remission, completed chemo 3 week ptp, cad, pafib, chronic hyopxic respiratory failure on 2L home o2, hfpef, htn hld, presnted with confusion. History gathered from chart, patient, . For about 2-3 weeks has had increased confusion, talking to people who were not present, visual hallucinations, poor memory retention. Denies previous symptoms, has noted some cognitive decline over the past 2 years, accelerated after of son in 08/23/2023. Does have family history of early-onset dementia. Denies headache, fever, chills, shortness of breath. Initially presented to ED 04/11/2024 with hypotension and altered mental status, that resolved and was discharged home. Then returned to 04/14/2024, initially planned for psychiatry eval, however, medical admission requested to rule out chemo induced encephalopathy or pres. Hospital course The patient was evaluated primarly for Acute toxic\metabolic encephalopathy as she was evaluated for rule out PRESS vs chemo induced encephalopathy versus progression of dementia with psychotic features or polypharmacy with NEgative MRI for any acute findings , abnormal EEG but no evidence of seizure as she was evalauted by neurology. Her other blood work showed normal tsh, b12, folate, mildly elevated esr, crp along with leukocytosis. Urine was checked and showed evidence of infection that was treated with IV antibiotics. Her symptoms improved and her mentation went back to baseline even before the antibiotics. Psychiatry appreciated, added Haldol 1 mg b.i.d. for hallucinations but then it was taken off and patient tolerated well with no more hallucinations or psychotic symptoms. It seems more of a multifactorial picture with Urine retention, urine infection, polypharmacy leading to her encephalopathy. she is still at risk of developing similar symptoms in future as no exact cause identified. for now will treat the infection, control urine retention with polo catheter and discontinue Amytriptilyne. She was noted to have Leukocytosis likely from urine infection. Treated with IV Ceftriaxone with good response. Culture growing GNR and 50-100k strep\entero. it can all be contaminent from straight catheterization but will continue to treat it on discharge with Cefpodoxime for 5 more days. For acute Urinary retention she was placed on straight cath as she Failed voiding trial post Polo removal. evaluated by urologist who recommended placement a polo catheter with a cap and regular emptying every 6 hours. Started on Bethanechol with a plan to follow up with dr Benitez in office in 2 weeks for voiding trial and removal of the catheter. Discharge plan Stop Amytriptylline Start Bethanechol to help with bladder contraction Follow with dr Benitez in office in 2 weeks for voiding trial and removing the catheter Empty the catheter every 6 hours Continue antibiotics as prescribed for urine infection Time Attestation Discharge Coordination Time (in mins): 43 Quality: Safe Use of Opioids Does Pt have an Active Cancer Diagnosis on the Problem List?: No Quality: Stroke Does the patient have a stroke diagnosis?: No Physical Exam Vital Signs: Vital Signs: Last Vital Signs Temp 97.2 F 04/19/24 07:45 Pulse 89 04/19/24 08:55 Resp 17 04/19/24 07:58 BP 119/66 04/19/24 08:55 Pulse Ox 93 04/19/24 07:45 O2 Del Method Room Air 04/19/24 07:45 BMI result Body Mass Index 31.0 Const: Other: Constitutional : interactive, not in distress Cardiovascular : no JVP, no lower extremity edema Respiratory : bilateral chest movement, not in resp distress Gastrointestinal: soft, lax, Non tender Skin : Warm, Dry Urology: catheter in place Neurological : Alert & oriented , No focal deficit DS: Data Data Completed and Pending Completed studies during hospitalization [Text1]: Procedures Assistance with Respiratory Ventilation, Less than 24 Consecutive Hours, Continuous Positive Airway Pressure (11/18/20) Excision of Left Lower Lung Lobe, Percutaneous Approach, Diagnostic (07/03/20) Labs on day of discharge: Laboratory Results - last 24 hr 04/19/24 05:30 WBC 11.9 H RBC 3.23 L Hgb 10.5 L Hct 33.9 L MCV 105.0 H MCH 32.5 MCHC 31.0 RDW 17.3 H Plt Count 340 MPV 10.4 Absolute Nucleated RBC 0.000 Nucleated RBC % (auto) 0.0 Sodium 139 Potassium 3.6 Chloride 103 Carbon Dioxide 24 Anion Gap 16 BUN 11 Creatinine 0.67 Estim Creat Clear Calc 92.5 Estimated GFR > 60 Random Glucose 123 H Calcium 9.4 Preliminary micro results at discharge 04/17/24 Unknown Urine Culture - Preliminary Urine Catheterized - Polo Catheter Gram negative aditi Enterococcus/Streptococcus sp Imaging Chest x-ray: Radiologist's impression: ITS Impressions Chest X-Ray 04/14/24 14:37 IMPRESSION: Unremarkable examination, without interval change. Electronically signed by: Ramo Ferguson MD 04/14/2024 03:41 PM EST RP Skull X-Ray 04/15/24 19:30 IMPRESSION: No demonstrated radiopaque metal in the regions of the orbits. Electronically signed by: Javi Villafana DO 04/15/2024 08:58 PM EST RP KUB X-Ray 04/15/24 19:35 IMPRESSION: 1. No unexpected radiopaque foreign bodies. 2. Instrumented posterior fusion of L4-S1. Disc spacers in place at L4-L5 and L5-S1. 3. Nonobstructive bowel gas pattern. Electronically signed by: Javi Villafana DO 04/15/2024 09:03 PM EST RP Brain MRI 04/16/24 14:12 IMPRESSION: No acute ischemia or acute brain abnormality. Small vessel occlusive disease. Electronically signed by: Turner Giang MD 04/16/2024 03:09 PM EST RP Discharge Plan Discharge Anticipated Discharge Date/Time: 04/19/24 12:40 Patient Disposition: Home Health Service Discharge Diagnosis: Urine retention Confusion Referrals: Lisa OLIVARES [Outside] - 3-5 Days (Lisa MOOREA will call you to schedule appointments) Chelsea Miles MD [Primary Care Provider] - 1 Week Discharge Medications: New nystatin 100,000 unit/gram Ointment 1 appl topical BID Qty: 30 0RF Protocol: Apply to: Apply to: abd folds bethanechol chloride 25 mg Tablet 50 mg PO BID Qty: 120 0RF cyanocobalamin (vitamin B-12) [Vitamin B-12] 1,000 mcg Tablet 1,000 mcg PO DAILY Qty: 90 0RF cefpodoxime 100 mg tablet 100 mg PO BID Qty: 10 0RF Rx Instructions: must administer with a meal/food Continued divalproex 500 mg tablet extended release 24 hr 500 mg PO DAILY Qty: 90 1RF Incruse Ellipta 62.5 mcg/actuation blister with device 1 inh inhalation DAILY Qty: 30 11RF (DME) Ultra-Light Rollator Misc See Rx Instructions .Route Qty: 1 0RF Rx Instructions: As directed loperamide [Imodium A-D] 2 mg Capsule 2 mg PO Q6H PRN (Reason: Diarrhea) Qty: 60 3RF ferrous sulfate [FeroSul] 325 mg (65 mg iron) tablet 325 mg PO BID Qty: 60 3RF (DME) Tub ledge vertical grab bar/ not suction bar. See Rx Instructions .Route .MEDSUPPLY Qty: 1 0RF Rx Instructions: As directed clonazepam 1 mg tablet 1 mg PO BID 30 Days Qty: 60 0RF atorvastatin 80 mg tablet 80 mg PO BEDTIME Qty: 30 1RF hydralazine 50 mg tablet 50 mg PO TID Qty: 90 1RF duloxetine 60 mg capsule,delayed release(DR/EC) 60 mg PO BEDTIME Qty: 30 1RF Eliquis 5 mg tablet 5 mg PO BID Qty: 60 1RF riboflavin (vitamin B2) 400 mg tablet 400 mg PO DAILY 30 Days Qty: 30 6RF metoclopramide HCl 10 mg Tablet 10 mg PO Q6H PRN (Reason: Nausea) Qty: 30 1RF diphenoxylate-atropine [Lomotil] 2.5-0.025 mg Tablet 1 tab PO BID PRN (Reason: Diarrhea) Qty: 30 0RF potassium chloride [K-Tab] 20 mEq Tablet Extended Release 20 meq PO DAILY Qty: 30 0RF lactulose [Constulose] 10 gram/15 mL solution 15 ml PO DAILY PRN (Reason: high ammonia) ondansetron 8 mg tablet,disintegrating 8 mg PO QID PRN (Reason: Nausea vomiting) diltiazem HCl [Cardizem CD] 240 mg capsule,extended release 24hr 240 mg PO BEDTIME omeprazole 20 mg capsule,delayed release(DR/EC) 20 mg PO BID@0630,1630 fenofibrate 160 mg tablet 160 mg PO BEDTIME divalproex 500 mg tablet extended release 24 hr 1,000 mg PO BEDTIME fluticasone furoate-vilanterol [Breo Ellipta] 100-25 mcg/dose blister with device 1 ea inhalation DAILY metoprolol succinate 50 mg tablet extended release 24 hr 50 mg PO DAILY (DME) blood pressure test kit-large Kit See Rx Instructions .ROUTE DIRECTED Qty: 1 Rx Instructions: As directed (DME) blood pressure monitor Kit See Rx Instructions .ROUTE .MEDSUPPLY Qty: 1 Rx Instructions: As directed docusate sodium 100 mg capsule 100 mg PO BID PRN (Reason: constipation) tramadol 50 mg tablet 50 mg PO Q8H PRN (Reason: pain) 7 Days Qty: 21 0RF Discontinued amitriptyline 25 mg tablet 25 mg PO BEDTIME Qty: 30 1RF Discharge Orders: Discharge Order (Routine); Ordered 04/19/24 Ordered By: Zac Marques Diet: Advance to usual diet Activity on Discharge: As tolerated Stand Alone Forms: Patient Portal Discharge page Print Language: Citizen Of [place] Care Plan Goals: Stop Amytriptylline Start Bethanechol to help with bladder contraction Follow with dr Benitez in office in 2 weeks for voiding trial and removing the catheter Empty the catheter every 6 hours Continue antibiotics as prescribed for urine infection Health Concerns: Urine infection Confusion urine retention Plan of Treatment: Antibiotics polo catheter Assessment: as above
--- NOTE | 2024-04-19 12:57 | W.MHC.F2F ---
Service Date Service Date: 04/19/24 Encounter Date of encounter: 04/19/24 Reasons for Services Signs and symptoms assessed: [place] Reason for group home: GI/ assessment (flush w/ 30-60 cc sterile water PRN for increased sediment or blockage, if becomes dislodged may replace w/ same size 16F polo PRN and routine q 4 weeks) and other Homebound: Leaving the home is medically contraindicated at this time without the asist of a device and/or another person due th the listed conditions above and below. Reason homebound: unable to drive Certification: Based on the above findings, I certify that this patient is confined to the home and needs intermittent group home care, physical therapy and/or speech therapy, or continues to need occupational therapy. The patient is under my care, and I have initiated the establishment of the plan of care. The patient will be followed by a physician who will periodically review the plan of care. Time Spent With Patient Time: Total time managing care of this patient today ____ minutes.
--- NOTE | 2024-04-19 14:10 | P.CNPS_ITS ---
History of Present Illness Date of Service: 04/18/2024 Chief Complaint: AMS Requesting physician: Zac Marques Discussed with referring provider: Yes Sources of Information: patient interviewed, chart reviewed and crisis/core team assessment reviewed HPI Narrative: Interm Hx: Pt seen as f/u. Pt presents as much more improved. 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 She also reports she was hearing things and now notes were not there. Her orientation as to situation has improved significantly. Her attention is also improved as well as her thought process is much more organized. Not oriented to date but this may be baseline. No SI/HI. No overt delusional content noted or reported. [facility] Medical History (Updated 04/19/24 @ 12:49 by Zac Marques MD) Smoker Chronic back pain Colostomy in place (~2020) Personal history of nicotine dependence Polysubstance (including opioids) dependence, binge pattern Atrial fibrillation with rapid ventricular response Congestive heart failure Restrictive lung disease COPD (chronic obstructive pulmonary disease) No natural teeth COVID-19 vaccine series completed History of COVID-19 (~04/2020) Oxygen dependent Pericardial effusion Other and unspecified hyperlipidemia Essential hypertension Peripheral vascular disease Preoperative cardiovascular examination Bilateral pneumonia Adenocarcinoma of sigmoid colon (~2020) Hypernatremia GI bleed UTI (urinary tract infection) Pleural effusion, left Colon cancer (~2020) IVY (obstructive sleep apnea) Cancer of lower lobe of left lung (~2020) GERD (gastroesophageal reflux disease) Acute and chronic respiratory failure Lung cancer Obesity Hypoventilation associated with obesity Obesity hypoventilation syndrome Respiratory failure with hypoxia and hypercapnia Rotator cuff strain Hypoxia Pneumonia Restless legs syndrome (RLS) Sleep disorder Bipolar disorder (~2009) Back pain with history of spinal surgery Renal failure Fibromyalgia Depression High cholesterol PTSD (post-traumatic stress disorder) CAD (coronary artery disease) HTN (hypertension) Surgical History History of partial colectomy (~12/2020) History of cardiac cath (~2010) History of hysterectomy (~1990) History of cholecystectomy History of appendectomy (~1982) History of colonoscopy (~08/2020) History of lobectomy of lung (~08/2020) History of esophagogastroduodenoscopy (EGD) History of bunionectomy (~1977) History of back surgery Diagnostics Vital Signs (24Hr): Vital Signs - 24 hr 04/18/24 15:30 04/18/24 19:44 04/19/24 04:00 Temperature 96.9 F 97.6 F 98.1 F Pulse Rate 94 93 96 Respiratory Rate 20 20 18 Blood Pressure 136/63 116/69 135/63 Pulse Oximetry 97 93 92 Oxygen Delivery Method Room Air Room Air Room Air 04/19/24 07:45 04/19/24 07:58 04/19/24 08:55 Temperature 97.2 F Pulse Rate 95 95 89 Respiratory Rate 17 17 Blood Pressure 138/71 119/66 Pulse Oximetry 93 Oxygen Delivery Method Room Air 04/19/24 08:55 Temperature Pulse Rate Respiratory Rate Blood Pressure 119/66 Pulse Oximetry Oxygen Delivery Method BMI result Body Mass Index 31.0 Labs 04/19/24 05:30 04/19/24 05:30 Labs: Laboratory Results - last 48 hr 04/18/24 04/19/24 05:33 05:30 WBC 17.1 H 11.9 H RBC 3.32 L 3.23 L Hgb 10.7 L 10.5 L Hct 34.4 L 33.9 L MCV 103.6 H 105.0 H MCH 32.2 32.5 MCHC 31.1 31.0 RDW 17.2 H 17.3 H Plt Count 311 340 MPV 10.3 10.4 Immature Gran % (Auto) 2.1 H Neut % (Auto) 62.6 Lymph % (Auto) 22.8 Kay % (Auto) 11.4 H Eos % (Auto) 0.7 Baso % (Auto) 0.4 Lymph # (Auto) 3.9 Kay # (Auto) 1.9 H Eos # (Auto) 0.1 Baso # (Auto) 0.1 Abs Immat Gran (auto) 0.36 H Absolute Neuts (auto) 10.6 H Absolute Nucleated RBC 0.000 0.000 Nucleated RBC % (auto) 0.0 0.0 Smear Tech's Comments VERIFIED ESR 44 H Sodium 140 139 Potassium 3.7 3.6 Chloride 102 103 Carbon Dioxide 25 24 Anion Gap 17 16 BUN 10 11 Creatinine 0.67 0.67 Estim Creat Clear Calc 92.5 92.5 Estimated GFR > 60 > 60 Random Glucose 98 123 H Calcium 9.3 9.4 Imaging Radiology Impressions: ITS Impressions Chest X-Ray 04/14/24 14:37 IMPRESSION: Unremarkable examination, without interval change. Electronically signed by: Ramo Ferguson MD 04/14/2024 03:41 PM EST RP Skull X-Ray 04/15/24 19:30 IMPRESSION: No demonstrated radiopaque metal in the regions of the orbits. Electronically signed by: Javi Villafana DO 04/15/2024 08:58 PM EST RP KUB X-Ray 04/15/24 19:35 IMPRESSION: 1. No unexpected radiopaque foreign bodies. 2. Instrumented posterior fusion of L4-S1. Disc spacers in place at L4-L5 and L5-S1. 3. Nonobstructive bowel gas pattern. Electronically signed by: Javi Villafana DO 04/15/2024 09:03 PM EST RP Brain MRI 04/16/24 14:12 IMPRESSION: No acute ischemia or acute brain abnormality. Small vessel occlusive disease. Electronically signed by: Turner Giang MD 04/16/2024 03:09 PM EST RP Mental Status Exam Mental Status Exam Narrative: Appearance: MO, wearing hospital gown, in NAD Behavior:cooperative Psychomotor: no agitation or retardation noted Speech: clear, regular rate/rhythm, spontaneous TP:linear TC: feeling better Mood: okay Affect: congruent SI: denies HI: denies VH/AH:none Delusions: none Insight/judgment: improving x 2. memory/cog: alert, improved orientation- pt is now oriented to place, month, year and situation. date is off. Medications Allergies Allergies Allergy/AdvReac Type Severity Reaction Status Date / Time Penicillins Allergy Mild Rash Verified 04/14/24 13:39 venlafaxine [From Effexor] Allergy Mild Rash Verified 04/14/24 13:39 cyclobenzaprine Allergy Unknown Unknown Verified 04/14/24 13:39 [Cyclobenzaprine] topiramate [From Topamax] Allergy Unknown Unknown Verified 04/14/24 13:39 levofloxacin [From Levaquin] AdvReac Severe Diarrhea Verified 04/14/24 13:39 Sulfa (Sulfonamide AdvReac Severe Diarrhea Verified 04/14/24 13:39 Antibiotics) fentanyl [FENTANYL] AdvReac Intermediate Hallucinati Verified 04/14/24 13:39 ons Assessment & Plan Assessment & Plan (1) Encephalopathy: Status: Acute Code(s): G93.40 - Encephalopathy, unspecified Plan Mrs. Seth is a 58 year-old woman who was brought by due to increase confusion, visual and auditory hallucinations. She has been recently here in ED for similar presentation. She was at that time found to have elevated ammonia which was treated with lactulose. This time around, ammonia is normal, no other evident source of medical condition causing delirium but she is delirious. If suspected related to FOLFIRI- one mechanism by which Folfiri can cause encephalopathy is by causing hyperammonemia, which is now hers is normal, or rare instances of posterior reversible encephalopathy or PRES (which mostly seen in MRI). Discussed with ED attending to consult with medicine if they would agree to admit pt with consult to neurology also to rule out other causes of encephalopathy. In the mean time, management of psychosis with low doses haldol 1mg po BID- this is also considering if there is epileptic activity, haldol is less likely to lower seizure threshold and has minimal anticholigernic properties that may worsen delirium. Her presentation is not consistent with primarily psychiatric illness. 04/18/24- can d/c haldol. this was communicated to Dr. Cupl. Total time managing care of this patient today ____ minutes.
== END 2024-04-19 13:58 | disposition home health service (06) | DRG 91 ==
LOC: HO.ED 16:08 → HO.EDOVER 04-15 17:22 → HO.S3 04-15 19:46
PROVIDERS: Physician Assistant; Admitting Provider Internal Medicine; Emergency Provider Emergency Medicine; PCP Internal Medicine; Visit Provider Student in an Organized Health Care Education/Training Program
DX: G92.8 Other toxic encephalopathy (principal); I67.83 Posterior reversible encephalopathy syndrome; J96.11 Chronic respiratory failure with hypoxia; F03.92 Unspecified dementia, unspecified severity, with psychotic disturbance; I50.32 Chronic diastolic (congestive) heart failure; Z93.3 Colostomy status; I48.0 Paroxysmal atrial fibrillation; R33.9 Retention of urine, unspecified; E11.9 Type 2 diabetes mellitus without complications; I25.10 Atherosclerotic heart disease of native coronary artery without angina pectoris; I11.0 Hypertensive heart disease with heart failure; Z90.2 Acquired absence of lung [part of]; T45.1X5A Adverse effect of antineoplastic and immunosuppressive drugs, initial encounter; J44.9 Chronic obstructive pulmonary disease, unspecified; T50.915A Adverse effect of multiple unspecified drugs, medicaments and biological substances, initial encounter; Z20.822 Contact with and (suspected) exposure to COVID-19; Z87.891 Personal history of nicotine dependence; Z78.1 Physical restraint status; Z85.038 Personal history of other malignant neoplasm of large intestine; Z99.81 Dependence on supplemental oxygen; Z79.01 Long term (current) use of anticoagulants; Z79.51 Long term (current) use of inhaled steroids; Z79.899 Other long term (current) drug therapy
CPT/HCPCS: 36415; 70250; 70551; 71045; 74018; 80048; 80076; 80307; 81001; 81003; 82140; 82550; 82607; 82746; 82803; 82947; 83735; 84443; 84484; 85007; 85025; 85027; 85610; 85652; 86140; 87086; 87088; 87186; 87502; 87635; 93005; 95816; 99285; C1758; J0696; J2250; J2359; J3420; S9485

== ENCOUNTER → 2024-04-14 14:33 | Outpatient (BNV) | payer MEDICARE, MEDICAID, SELFPAY | PROVIDERS: Admitting Provider Internal Medicine; Emergency Provider Emergency Medicine; PCP Internal Medicine; Visit Provider Internal Medicine Cardiovascular Disease | DX: I48.91 Unspecified atrial fibrillation (principal); R41.82 Altered mental status, unspecified; F31.9 Bipolar disorder, unspecified | CPT/HCPCS: 93010 ==

== ENCOUNTER → 2024-04-14 14:40 | Outpatient (BNV) | payer MEDICARE, MEDICAID, SELFPAY | PROVIDERS: Emergency Provider Emergency Medicine; PCP Internal Medicine; Visit Provider Internal Medicine | DX: R33.8 Other retention of urine (principal); G93.40 Encephalopathy, unspecified; N30.00 Acute cystitis without hematuria | CPT/HCPCS: 99222; 99232; 99239; G0180 ==

== ENCOUNTER 2024-04-15 16:58 | Outpatient (BNV) | payer MEDICARE, MEDICAID, SELFPAY | END 2024-04-16 14:12 | PROVIDERS: Admitting Provider Internal Medicine; Emergency Provider Emergency Medicine; PCP Internal Medicine; Visit Provider Radiology Diagnostic Radiology | DX: R41.82 Altered mental status, unspecified (principal) | CPT/HCPCS: 70551 ==

== ENCOUNTER → 2024-04-15 16:58 | Outpatient (BNV) | payer MEDICARE, MEDICAID, SELFPAY | PROVIDERS: Admitting Provider Internal Medicine; Emergency Provider Emergency Medicine; PCP Internal Medicine; Visit Provider Psychiatry & Neurology Neurology | DX: G93.40 Encephalopathy, unspecified (principal) | CPT/HCPCS: 99222 ==

== ENCOUNTER → 2024-04-15 16:58 | Outpatient (BNV) | payer MEDICARE, MEDICAID, SELFPAY | PROVIDERS: Admitting Provider Internal Medicine; Emergency Provider Emergency Medicine; PCP Internal Medicine; Visit Provider Urology | DX: R33.8 Other retention of urine (principal) | CPT/HCPCS: 99222 ==

== ENCOUNTER → 2024-04-15 16:58 | Outpatient (BNV) | payer MEDICARE, MEDICAID, SELFPAY | PROVIDERS: Admitting Provider Internal Medicine; Emergency Provider Emergency Medicine; PCP Internal Medicine; Visit Provider Social Worker | DX: F29 Unspecified psychosis not due to a substance or known physiological condition (principal); G93.40 Encephalopathy, unspecified | CPT/HCPCS: 99232 ==

== ENCOUNTER 2024-04-28 13:03 | Emergency (ER) | payer MEDICARE, MEDICAID, SELFPAY ==
--- NOTE | ~2024-04-28 | XR_ITS ---
EXAMINATION: XR CHEST 1 VIEW CLINICAL INFORMATION: back pain COMPARISON: April 14, 2024 TECHNIQUE: Single portable frontal view. Tubes and lines: Port-A-Cath in place the tip of which projecting over the SVC/RA junction. Lungs and pleura: Mild diffuse increased interstitial lung marking and peribronchial cuffing might be small airway disease or interstitial process, no significant change. No dense lobar consolidation lobar pneumonia. Heart and mediastinum: The mediastinum is within normal limits.. Bones/soft tissue: Skeletal structures included are normal for patient's age. XR/XR chest 1V IMPRESSION: 1. Mild diffuse increased interstitial lung marking and peribronchial cuffing might be small airway disease or interstitial process, no significant change. 2. Port-A-Cath remain in place properly positioned. Electronically signed by: Tree Vicente MD 04/28/2024 03:48 PM [facility]
--- NOTE | ~2024-04-28 | XR_ITS ---
EXAMINATION: XR LUMBOSACRAL SPINE CLINICAL INFORMATION: back pain COMPARISON: MRI lumbar spine dated June 28, 2018. TECHNIQUE: Three views of the lumbosacral spine. FINDINGS / XR/XR lumbar spine 2-3V IMPRESSION: There are surgical changes status post spinal fusion with a transpedicular hardware construct extending from L4 through S1. There are intervertebral disc spacers at L4-5 and L5-S1. The hardware appears intact. Lumbar spinal alignment appears preserved in the sagittal projection. Vertebral body heights are preserved. There is mild narrowing of the upper lumbar spine intervertebral disc spaces. No acute fracture is seen. There are cholecystectomy clips. Electronically signed by: Juve Ellison DO 04/28/2024 03:52 PM EST
[2024-04-28 13:16] VITALS: BP 119/62; PULSE 87; RESP 18; TEMP 36.6; O2SAT 94; BMI 33.0
--- NOTE | 2024-04-28 13:53 | ED_ITS ---
HPI - Back Pain/Injury General Chief Complaint: Back Pain/Injury Stated Complaint: Back pain Time Seen by Provider: 04/28/24 13:40 Source: patient Mode of arrival: ambulatory Limitations: no limitations History of Present Illness ED Provider: DR. Campos HPI Narrative: 58-year-old female PMH depression, anemia, sigmoid adenocarcinoma in remission now, CAD, paroxysmal AFib, chronic hypoxic respiratory failure on 2 L supplemental oxygen, CHFpEF. patient with a chronic low back pain fell about 2 weeks ago since then patient is experiencing more low back pain, no lower extremity weakness or numbness. No fever, chills, no dysuria, no frequency urination. Patient also is complaining of depression with no SI or HI no auditory or visual hallucination patient stated that her son unfortunately few months ago and she still grieving. Patient is requesting to be placed to rehab. Related Data Home Medications ?Medication ?Instructions ?Recorded ?Confirmed blood pressure monitor #1 ea 10/22/20 04/09/24 blood pressure test kit-large #1 ea 10/22/20 04/09/24 docusate sodium 100 mg capsule 100 mg PO BID PRN constipation 09/21/21 04/15/24 diltiazem HCl 240 mg 240 mg PO BEDTIME 04/15/24 04/15/24 capsule,extended release 24 hr (Cardizem CD) divalproex 500 mg tablet,extended 1,000 mg PO BEDTIME 04/15/24 04/15/24 release 24 hr fenofibrate 160 mg tablet 160 mg PO BEDTIME 04/15/24 04/15/24 lactulose 10 gram/15 mL oral 15 ml PO DAILY PRN high ammonia 04/15/24 04/15/24 solution (Constulose) metoprolol succinate 50 mg 50 mg PO DAILY 04/15/24 04/15/24 tablet,extended release 24 hr omeprazole 20 mg capsule,delayed 20 mg PO BID@0630,1630 04/15/24 04/15/24 release ondansetron 8 mg disintegrating 8 mg PO QID PRN Nausea vomiting 04/15/24 04/15/24 tablet Previous Rx's ?Medication ?Instructions ?Recorded divalproex 500 mg tablet,extended 500 mg PO DAILY #90 tabs 02/01/23 release 24 hr umeclidinium 62.5 mcg/actuation 1 inh inhalation DAILY #30 ea 09/20/23 blister powder for inhalation (Incruse Ellipta) walker (Ultra-Light Rollator misc) #1 ea 09/29/23 loperamide 2 mg capsule (Imodium 2 mg PO Q6H PRN Diarrhea #60 caps 12/05/23 A-D) ferrous sulfate 325 mg (65 mg 325 mg PO BID #60 tabs 01/16/24 iron) tablet (FeroSul) diphenoxylate-atropine 2.5 1 tab PO BID PRN Diarrhea #30 tabs 02/19/24 mg-0.025 mg tablet (Lomotil) Tub ledge vertical grab bar/ not #1 ea 03/06/24 suction bar. apixaban 5 mg tablet (Eliquis) 5 mg PO BID #60 tabs 03/31/24 atorvastatin 80 mg tablet 80 mg PO BEDTIME #30 tabs 03/31/24 duloxetine 60 mg capsule,delayed 60 mg PO BEDTIME #30 caps 03/31/24 release hydralazine 50 mg tablet 50 mg PO TID #90 tabs 03/31/24 riboflavin (vitamin B2) 400 mg 400 mg PO DAILY 30 days #30 tabs 04/04/24 tablet metoclopramide HCl 10 mg tablet 10 mg PO Q6H PRN Nausea #30 tabs 04/08/24 tramadol 50 mg tablet 50 mg PO Q8H PRN pain 7 days #21 04/09/24 tabs potassium chloride 20 mEq 20 meq PO DAILY #30 tabs 04/10/24 tablet,extended release (K-Tab) bethanechol chloride 25 mg tablet 50 mg (2 x 25 mg) PO BID #120 tabs 04/19/24 cefpodoxime 100 mg tablet 100 mg PO BID #10 tabs 04/19/24 cyanocobalamin (vitamin B-12) 1,000 mcg PO DAILY #90 tabs 04/19/24 1,000 mcg tablet (Vitamin B-12) nystatin 100,000 unit/gram topical 1 appl topical BID #30 grams 04/19/24 ointment clonazepam 1 mg tablet 1 mg PO BID 30 days #60 tabs 04/22/24 heavy duty adjustable hand rail #1 ea 04/22/24 oxybutynin chloride 5 mg tablet 5 mg PO DAILY 30 days #30 tabs 04/25/24 fluticasone furoate 100 1 ea inhalation DAILY #60 ea 04/27/24 mcg-vilanterol 25 mcg/dose inhalation powder (Breo Ellipta) Allergies Allergy/AdvReac Type Severity Reaction Status Date / Time Penicillins Allergy Mild Rash Verified 04/28/24 13:16 venlafaxine [From Effexor] Allergy Mild Rash Verified 04/28/24 13:16 cyclobenzaprine Allergy Unknown Unknown Verified 04/28/24 13:16 [Cyclobenzaprine] topiramate [From Topamax] Allergy Unknown Unknown Verified 04/28/24 13:16 levofloxacin [From Levaquin] AdvReac Severe Diarrhea Verified 04/28/24 13:16 Sulfa (Sulfonamide AdvReac Severe Diarrhea Verified 04/28/24 13:16 Antibiotics) fentanyl [FENTANYL] AdvReac Intermediate Hallucinati Verified 04/28/24 13:16 ons Review of Systems 2 Review of Systems: All other systems are reviewed and are negative Constitutional: Reports as per HPI and Reports no additional constitutional complaints Eyes: Reports as per HPI and Reports no additional eye complaints Reports system reviewed and no additional complaints, except as documented Cardiovascular: Reports as per HPI and Reports no additional cardiovascular complaints Respiratory: Reports as per HPI and Reports no additional respiratory complaints Gastrointestinal: Reports as per HPI and Reports no additional gastrointestinal complaints Genitourinary: Reports no additional female genitourinary complaints Musculoskeletal: Reports no additional musculoskeletal complaints Skin/Breast: Reports system reviewed and no additional complaints, except as docu Psychiatric: Reports no additional psychiatric complaints Endocrine: Reports no additional endocrine complaints Hematologic/Lymphatic: Reports no additional hematologic/lymphatic complaints Allergic/Immunologic: Reports no additional allergic/immunologic complaints Reports system reviewed and no additional complaints, except as documented and Reports Abnormal speech present [facility] Past Medical History Medical History Chronic confusion Depression Smoker Chronic back pain Colostomy in place (~2020) Personal history of nicotine dependence Polysubstance (including opioids) dependence, binge pattern Atrial fibrillation with rapid ventricular response Congestive heart failure Restrictive lung disease COPD (chronic obstructive pulmonary disease) No natural teeth COVID-19 vaccine series completed History of COVID-19 (~04/2020) Oxygen dependent Pericardial effusion Other and unspecified hyperlipidemia Essential hypertension Peripheral vascular disease Preoperative cardiovascular examination Bilateral pneumonia Adenocarcinoma of sigmoid colon (~2020) Hypernatremia GI bleed UTI (urinary tract infection) Pleural effusion, left Colon cancer (~2020) IVY (obstructive sleep apnea) Cancer of lower lobe of left lung (~2020) GERD (gastroesophageal reflux disease) Acute and chronic respiratory failure Lung cancer Obesity Hypoventilation associated with obesity Obesity hypoventilation syndrome Respiratory failure with hypoxia and hypercapnia Rotator cuff strain Hypoxia Pneumonia Restless legs syndrome (RLS) Sleep disorder Bipolar disorder (~2009) Back pain with history of spinal surgery Renal failure Fibromyalgia Depression High cholesterol PTSD (post-traumatic stress disorder) CAD (coronary artery disease) HTN (hypertension) Surgical History History of partial colectomy (~12/2020) History of cardiac cath (~2010) History of hysterectomy (~1990) History of cholecystectomy History of appendectomy (~1982) History of colonoscopy (~08/2020) History of lobectomy of lung (~08/2020) History of esophagogastroduodenoscopy (EGD) History of bunionectomy (~1977) History of back surgery Family History Family History Maternal Aunt Breast cancer Stroke COPD (chronic obstructive pulmonary disease) Maternal Aunt Breast cancer COPD (chronic obstructive pulmonary disease) Mother Uterine cancer COPD (chronic obstructive pulmonary disease) HTN (hypertension) Heart disease Mental health disorder Maternal Uncle Stroke Paternal Grandmother Heart attack Parkinsons disease Sister Diabetes IBS (irritable bowel syndrome) Son HTN (hypertension) Substance use disorder Daughter HTN (hypertension) Father HTN (hypertension) Brother Heart disease Family/Other Mental health disorder Social History Social History Household Members: Spouse Housing: Apartment Are you a primary wound care coordinator to a significant other at home: No Do you presently have visiting nurse or other home services: No Alcohol intake: never Comment: sitter at bedside Patient Tobacco Use Status: Former Tobacco user Tobacco use type: Cigarette Cigarettes Per Day: 4 Years Smoked: 40 Smoked in Last 30 Days: No e-Cigarette/Vaping Use: Former Use Second Hand Smoke Exposure: No Use of substances other than those prescribed or required for medical reasons: No Advance Directives: No Advance Directives Information Provided: No Advance Directives Date on File: 10/05/22 Do you have a plan to hurt others: No Plan Patient : No service: No Current occupational status: unemployed and disabled Cognitive needs: Yes (walker ) Hearing needs: No Vision needs: No Physical Exam 2 Vital Signs: Vital Signs: Last Vital Signs Temp 97.8 F 04/28/24 13:16 Pulse 87 04/28/24 13:16 Resp 18 04/28/24 13:16 BP 119/62 04/28/24 13:16 Pulse Ox 94 04/28/24 13:16 O2 Del Method Room Air 04/28/24 13:16 BMI result Body Mass Index 33.0 Vital signs have been reviewed and appear to be correct. Blood pressure elevated. Heart rate normal. Respiratory rate normal. Temperature normal. Oxygen saturation normal. Appearance: Alert. Oriented X3. No acute distress. Head: Normal external exam. Normocephalic. Atraumatic. No Stanley signs noted. No raccoon eyes noted Eyes: PERRLA. EOMI. Conjunctiva and sclera normal. Eyelids normal. ENT: TM's Normal. Pharynx normal. Uvula midline. Moist mucous membranes. No trismus noted. No drooling noted. No muffled voice noted. Neck: Normal inspection. Neck supple. FROM. No adenopathy. Thyroid Normal. No meningeal signs. No neck mass noted. CVS: Normal heart rate and rhythm. Heart sound normal. No murmurs noted. Pulses normal throughout. Respiratory: No respiratory distress. Painless inspiration. Breath sounds normal. No wheezes/rales/rhonchi noted. Chest nontender. No accessory muscle usage noted or decreased air movement noted. Abdomen: Soft and nontender. Bowel sounds normal in all 4 quadrants. No distention noted. No organomegaly noted. No visible injury noted. Back: No CVA tenderness. Full range of motion noted. Skin: Skin warm and dry. Normal skin color. Normal skin turgor. No rashes/lesions/lacerations noted. Extremities: No lower extremity edema. Extremities exhibit normal range of motion. Extremities nontender. Neuro: Oriented X 3. Cranial nerve exam: II-XII are grossly intact No motor deficit. No sensory deficit. Reflexes normal. Course Reevaluation(s) Reevaluation #1: Acute on chronic back pain, x-ray showing chronic change postoperative, patient feels slightly better after oxycodone, patient will be a physician observation in the emergency department for case management / physical therapy assessment for possible rehab placement. Patient is been having Grieves about her son, no SI, no HI, no hallucination care team and put is appreciated patient will be referred to outpatient follow-up did not feel needs inpatient Level of care. Time: 15:59 Medications Administered Discontinued Medications Generic Name Dose Route Start Last Admin Trade Name Freq PRN Reason Stop Dose Admin Oxycodone HCl 5 mg 04/28/24 13:50 04/28/24 14:47 Oxycodone Hcl Immed Release 5 Mg Tablet PO 04/28/24 13:51 5 mg ONCE ONE Administration Medical Decision Making Differential Diagnosis Differential Diagnoses: The differential diagnosis associated with the presentation includes ( Depression, grieving, acute lumbar spine injury, UTI, physical therapy evaluation, case management evaluation, severe anemia, electrolyte derangement.) Admission/Observation Consideration of admission/observation: Escalation of care including admission/observation considered Consult Healthcare Provider Management of the patient was discussed with: Computer Systems Manager ( Care team/case management.) Lab Data MDM Lab Attestation statement: I reviewed the patient's lab results. 04/28/24 14:27 04/28/24 14:27 Labs: Lab Results 04/28/24 04/28/24 Range/Units 14:27 14:52 WBC 8.0 (4.8-10.8) X10*3/uL RBC 3.19 L (4.20-5.50) X10*6/uL Hgb 10.4 L (12.0-16.0) g/dl Hct 33.8 L (37.0-47.0) % MCV 106.0 H (80.0-98.0) fL MCH 32.6 (27.0-33.0) pg MCHC 30.8 L (31.0-35.0) g/dl RDW 18.3 H (11.0-16.0) % Plt Count 309 (160-400) X10*3/uL MPV 9.7 (9.4-12.3) fL Immature Gran % (Auto) 3.0 H (0.0-0.4) % Neut % (Auto) 52.5 (45-73) % Lymph % (Auto) 29.3 (20-40) % Phelps % (Auto) 13.1 H (2-11) % Eos % (Auto) 1.3 (0-4) % Baso % (Auto) 0.8 (0-2) % Lymph # (Auto) 2.3 (1.2-4.9) X10*3/uL Phelps # (Auto) 1.0 (0.1-1.2) X10*3/uL Eos # (Auto) 0.1 (0.0-0.4) X10*3/uL Baso # (Auto) 0.1 (0.0-0.2) X10*3/uL Abs Immat Gran (auto) 0.24 H (0.00-0.03) X10*3/uL Absolute Neuts (auto) 4.2 (2.0-8.3) x10*3/uL Absolute Nucleated RBC 0.000 (0.0-0.012) X10*3/uL Nucleated RBC % (auto) 0.0 (0.0-0.2) /100WBC Sodium 144 (135-145) mmol/L Potassium 4.3 (3.3-5.1) mmol/L Chloride 105 (96-108) mmol/L Carbon Dioxide 26 (22-29) mmol/L Anion Gap 17 (12-20) BUN 9 (9-16) mg/dL Creatinine 0.75 (0.5-1.4) mg/dL Estim Creat Clear Calc 88.4 Estimated GFR > 60 Random Glucose 102 (60-115) mg/dL Calcium 8.9 (8.4-10.2) mg/dL Total Bilirubin 0.2 (0.0-1.0) mg/dL Direct Bilirubin < 0.2 (0.0-0.5) mg/dL AST 21 (5-31) U/L ALT < 6 (0-31) U/L Alkaline Phosphatase 74 (39-117) U/L Troponin I High Sens 4.1 (<3.5-17.0) ng/L Total Protein 5.9 L (6.5-8.0) g/dL Albumin 3.3 L (3.5-5.0) g/dL Lipase 10 (8-78) U/L Urine Color Dark Yellow Urine Appearance Clear Urine pH 8.0 (5.0-9.0) Ur Specific [place] 1.015 (1.005-1.025) Urine Protein Trace (Neg-Trace) mg/dL Urine Glucose (UA) Negative (Negative) mg/dL Urine Ketones Negative (Negative) mg/dL Urine Blood Negative (Negative) Urine Nitrite Negative (Negative) Ur Leukocyte Esterase Negative (Negative) Independent Interpretation I performed an independent interpretation of an: Plain X-Ray ( Lumbar spine:There are surgical changes status post spinal fusion with a transpedicular hardware construct extending from L4 through S1. There are intervertebral disc spacers at L4-5 and L5-S1. The hardware appears intact. Lumbar spinal alignment appears preserved in the sagittal projection. V) Radiology Impression Discussion of test interpretation with radiology: I have reviewed the radiologist's reading. Chronic Conditions Patient?s care impacted by: Other ( Chronic back pain.) Discharge Plan Discharge Clinical Impression: Acute on chronic back pain, Depression Patient Disposition: Still a Patient Prescriptions: No Action divalproex 500 mg tablet extended release 24 hr 500 mg PO DAILY Qty: 90 1RF Incruse Ellipta 62.5 mcg/actuation blister with device 1 inh inhalation DAILY Qty: 30 11RF (DME) Ultra-Light Rollator Misc See Rx Instructions .Route Qty: 1 0RF Rx Instructions: As directed loperamide [Imodium A-D] 2 mg Capsule 2 mg PO Q6H PRN (Reason: Diarrhea) Qty: 60 3RF ferrous sulfate [FeroSul] 325 mg (65 mg iron) tablet 325 mg PO BID Qty: 60 3RF (DME) Tub ledge vertical grab bar/ not suction bar. See Rx Instructions .Route .MEDSUPPLY Qty: 1 0RF Rx Instructions: As directed atorvastatin 80 mg tablet 80 mg PO BEDTIME Qty: 30 1RF hydralazine 50 mg tablet 50 mg PO TID Qty: 90 1RF duloxetine 60 mg capsule,delayed release(DR/EC) 60 mg PO BEDTIME Qty: 30 1RF Eliquis 5 mg tablet 5 mg PO BID Qty: 60 1RF riboflavin (vitamin B2) 400 mg tablet 400 mg PO DAILY 30 Days Qty: 30 6RF metoclopramide HCl 10 mg Tablet 10 mg PO Q6H PRN (Reason: Nausea) Qty: 30 1RF clonazepam 1 mg tablet 1 mg PO BID 30 Days Qty: 60 0RF (DME) heavy duty adjustable hand rail See Rx Instructions .Route .MEDSUPPLY Qty: 1 0RF Rx Instructions: As directed oxybutynin chloride 5 mg tablet 5 mg PO DAILY 30 Days Qty: 30 0RF fluticasone furoate-vilanterol [Breo Ellipta] 100-25 mcg/dose blister with device 1 ea inhalation DAILY Qty: 60 3RF diphenoxylate-atropine [Lomotil] 2.5-0.025 mg Tablet 1 tab PO BID PRN (Reason: Diarrhea) Qty: 30 0RF potassium chloride [K-Tab] 20 mEq Tablet Extended Release 20 meq PO DAILY Qty: 30 0RF lactulose [Constulose] 10 gram/15 mL solution 15 ml PO DAILY PRN (Reason: high ammonia) ondansetron 8 mg tablet,disintegrating 8 mg PO QID PRN (Reason: Nausea vomiting) diltiazem HCl [Cardizem CD] 240 mg capsule,extended release 24hr 240 mg PO BEDTIME omeprazole 20 mg capsule,delayed release(DR/EC) 20 mg PO BID@0630,1630 fenofibrate 160 mg tablet 160 mg PO BEDTIME divalproex 500 mg tablet extended release 24 hr 1,000 mg PO BEDTIME metoprolol succinate 50 mg tablet extended release 24 hr 50 mg PO DAILY nystatin 100,000 unit/gram Ointment 1 appl topical BID Qty: 30 0RF Protocol: Apply to: Apply to: abd folds bethanechol chloride 25 mg Tablet 50 mg PO BID Qty: 120 0RF cyanocobalamin (vitamin B-12) [Vitamin B-12] 1,000 mcg Tablet 1,000 mcg PO DAILY Qty: 90 0RF cefpodoxime 100 mg tablet 100 mg PO BID Qty: 10 0RF Rx Instructions: must administer with a meal/food (DME) blood pressure test kit-large Kit See Rx Instructions .ROUTE DIRECTED Qty: 1 Rx Instructions: As directed ([facility]) blood pressure monitor Kit See Rx Instructions .ROUTE .MEDSUPPLY Qty: 1 Rx Instructions: As directed docusate sodium 100 mg capsule 100 mg PO BID PRN (Reason: constipation) tramadol 50 mg tablet 50 mg PO Q8H PRN (Reason: pain) 7 Days Qty: 21 0RF Print Language: Polish
[2024-04-28 14:33] LABS: MANUAL DIFF FLAG NO
[2024-04-28 14:34] LABS: Basophils Absolute Auto 0.1 X10*3/uL (0.0-0.2); Basophils Percent Auto 0.8 % (0-2); Eosinophils Absolute Auto 0.1 X10*3/uL (0.0-0.4); Eosinophils Percent Auto 1.3 % (0-4); Hematocrit 33.8 % (37.0-47.0); Hemoglobin 10.4 g/dl (12.0-16.0); Imm Gran Abs Auto 0.24 X10*3/uL (0.00-0.03); Lymphocytes Absolute Auto 2.3 X10*3/uL (1.2-4.9); Lymphocytes Percent Auto 29.3 % (20-40); Mean Corpuscular HGB Conc 30.8 g/dl (31.0-35.0); Mean Corpuscular Hemoglobin 32.6 pg (27.0-33.0); Mean Platelet Volume 9.7 fL (9.4-12.3); Monocytes Percent Auto 13.1 % (2-11); Neutrophils Absolute Auto 4.2 x10*3/uL (2.0-8.3); Neutrophils Percent Auto 52.5 % (45-73); Platelet Count 309 X10*3/uL (160-400); Red Blood Count 3.19 X10*6/uL (4.20-5.50); Red Cell Distribution Width 18.3 % (11.0-16.0)
[2024-04-28] MEDS: oxyCODONE HCl Immed Release 5 MG TABLET PO (14:47)
[2024-04-28 14:49] LABS: Alanine Aminotransferase < 6 U/L (0-31); Albumin Level 3.3 g/dL (3.5-5.0); Alkaline Phosphatase 74 U/L (39-117); Anion Gap 17 (12-20); Aspartate Amino Transferase 21 U/L (5-31); Bilirubin Direct < 0.2 mg/dL (0.0-0.5); Bilirubin Total 0.2 mg/dL (0.0-1.0); Blood Urea Nitrogen 9 mg/dL (9-16); Calcium 8.9 mg/dL (8.4-10.2); Carbon Dioxide 26 mmol/L (22-29); Chloride 105 mmol/L (96-108); Creatinine Clr Calc Pharmacy 88.4; Estimated Glomerular Filt Rate > 60; Glucose Random 102 mg/dL (60-115); Lipase 10 U/L (8-78); Potassium 4.3 mmol/L (3.3-5.1); Sodium 144 mmol/L (135-145); Total Protein 5.9 g/dL (6.5-8.0)
[2024-04-28 14:54] LABS: Troponin-I High Sensitivity 4.1 ng/L (<3.5-17.0)
--- NOTE | 2024-04-28 14:55 | PC.NURSE ---
Pt BIBA from home, [facility] called an expect saying that pt is more confused than normal. Has hx of stage 4 colon cancer, colostomy bag and polo with leg bag that is new as of this last month. Pt is alert, answering questions mostly correct. Breathing even and unlabored, skin pale and dry. Reports back pain, 8/10 and feels overwhelmed at home. Denies SI or HI. Denies CP or SOB. NSR on bedside montior.
[2024-04-28 14:58] LABS: Appearance Urine Clear; Color Urine Dark Yellow; Glucose Urine UA Negative (Negative); Leukocyte Esterase Urine Negative (Negative); Nitrite Urine Negative (Negative); Specific Gravity - Urine 1.015 (1.005-1.025); Urine Blood Negative (Negative); Urine Ketones Negative (Negative); Urine Protein Trace mg/dL (Neg-Trace)
--- NOTE | 2024-04-28 15:14 | PC.NURSE ---
Pt reports she is feeling depressed due to the passing of her son, requesting to speak to a therapist. Adamantly denies SI or HI, reports just feeling down. Consults placed.
[2024-04-28 17:08] VITALS: BP 118/57; PULSE 88; RESP 18; TEMP 36.6; O2SAT 94
[2024-04-28 18:33] VITALS: BP 126/65; PULSE 87; RESP 13; TEMP 36.5; O2SAT 92
[2024-04-28 20:18] VITALS: BP 147/70; PULSE 90; RESP 16; TEMP 36.9; O2SAT 98
--- NOTE | 2024-04-28 20:20 | MHC.EDTECH ---
Pt changed into hospital bed, vitals taken, colostomy bag burped and emptied, leg bag emptied with 200ml output
--- NOTE | 2024-04-28 20:21 | PC.NURSE ---
pt changed into hospital bed, colostomy bag emptied and polo bag.
--- NOTE | 2024-04-28 21:55 | PC.NURSE ---
pt is sleeping at this time.
--- NOTE | 2024-04-28 23:47 | PC.NURSE ---
pt is sleeping at this time.
[2024-04-29] VITALS (11 sets, daily range): BP systolic 81–169; BP diastolic 56–79; PULSE 16–104; RESP 14–20; TEMP 36.4–36.9; O2SAT 91–100
--- NOTE | 2024-04-29 06:29 | PC.NURSE ---
pt reposition for comfort, colostomy bag care, urine out put was 900 bright yellow
[2024-04-29 08:03] LABS: COVID-19 Test Negative (Negative); IDNOW Serial# 152EDE1D
--- NOTE | 2024-04-29 08:39 | PC.NURSE ---
oob ambulating with therapy , ate well for breakfast
--- NOTE | 2024-04-29 09:04 | MHC.CARE ---
RAD Team completed the CC referral for therapy for Pt. The [facility] form and Care Team assessment were emailed to [facility]. Care Team updated.
--- NOTE | 2024-04-29 09:40 | PC.NURSE ---
Addendum entered by Kristie Perez RN 04/29/24 11:02: Completed med rec with duplicate orders/ unverified meds, pharmacy will review med rec today, provider aware Original Note: Med rec completed by previous shift RN, provider aware and will review patients medications
--- NOTE | 2024-04-29 12:25 | MHC.CM.ED ---
Received case management consult overnight. Patient came to the ER due to back pain. Work up essentially negative. Physical therapy eval completed. Short term rehab is recommended. Met with patient and in regards to discharge planning. Patient lives with and is active with [facility]. PCP verified. Copy of HCP verified to be on file. Referral broadcasted to all facilities within 15 miles of patient's home. The following facilities are able to offer a bed: [facility], [facility], [facility], [facility], [facility], and [facility]. [facility], [facility], [facility], [facility], [facility], [facility], [facility], [facility], [facility], [facility], [place] and [facility] still reviewing. Patient accepts bed at [facility]. Will need [facility] PASRR Level 2. T/W already submitted Level 1. Continue to monitor for d/c needs.
--- NOTE | 2024-04-29 12:54 | PHA.MEDREC ---
Addendum entered by Redd Marcum 04/29/24 13:53: reviewed Original Note: Pharmacy Consult ? Medication Reconciliation Pharmacy reviewed med rec done by nursing and note left by AM nurse stating med rec completed when duplicated/un-verified medications were left in the med rec. I spoke with the patient and she was able to confirm her medications with me. She is taking the Amitriptyline 25mg tab and states she is taking it once at bedtime, that was filled 04/02 for 39 days per our claims. The patient confirmed she took her medications about 2 nights ago. I updated and completed the med rec.
--- NOTE | 2024-04-29 13:46 | PC.NURSE ---
600ml of urine emptied from polo, pt repositioned back into bed. pt requesting klonopin, med rec completed by pharmacy, provider notified.
[2024-04-29] MEDS: Potassium Chloride ER 20 MEQ TAB.ER.PRT PO (15:52)
[2024-04-29] MEDS: Cyanocobalamin (Vitamin B-12) 1,000 MCG TABLET 1000 MCG PO (15:52)
[2024-04-29] MEDS: Omeprazole 20 MG CAPSULE.DR PO (15:52)
[2024-04-29] MEDS: Metoprolol Succinate ER 50 MG TAB.ER.24H PO (15:52)
[2024-04-29] MEDS: Divalproex Sodium ER 500 MG TAB.ER.24H PO (15:52)
[2024-04-29] MEDS: hydrALAZINE HCl 50 MG TABLET PO ×2 (15:52→21:15)
[2024-04-29] MEDS: oxyBUTYnin chloride 5 MG TABLET PO (15:53)
--- NOTE | 2024-04-29 15:53 | MHC.CM.ED ---
[facility] PASRR Level 2 obtained. Patient can transfer to [facility] 04/30 at 10am. Pablo GARZA booked. Med nec with chart. Patient, Kristie Villa RN and Erika STUART aware. Continue to monitor for d/c needs.
--- NOTE | 2024-04-29 16:16 | PC.NURSE ---
Alert with moments of confusion. Denies pain or discomfort. VSS. Medicated with home meds per par. Patient reminded that [facility] and in agreement with plan or care
--- NOTE | 2024-04-29 19:50 | MHC.EDTECH ---
Patient bed changed and repositioned
[2024-04-29] MEDS: Apixaban 5 MG TABLET PO (21:14)
[2024-04-29] MEDS: Atorvastatin Calcium 80 MG TABLET PO (21:14)
[2024-04-29] MEDS: DULoxetine HCl 60 MG CAPSULE.DR PO (21:15)
[2024-04-29] MEDS: Amitriptyline HCl 25 MG TABLET PO (21:15)
[2024-04-29] MEDS: Ferrous Sulfate 324 MG TABLET.DR PO (21:15)
[2024-04-29] MEDS: clonazePAM 1 MG TABLET PO (21:15)
[2024-04-29] MEDS: Divalproex Sodium ER 500 MG TAB.ER.24H 1000 MG PO (21:15)
[2024-04-29] MEDS: Acetaminophen 325 MG TABLET 650 MG PO (21:20)
--- NOTE | 2024-04-29 21:25 | PC.NURSE ---
Call placed to pharmacy regarding missing meds in the pyxis. Pharmacy reports will bring meds down to the ED.
[2024-04-29] MEDS: dilTIAZem HCL CD 240 MG CAP.ER.DEG PO (21:43)
[2024-04-29] MEDS: Nystatin Ointment 15 GM TUBE 1 APPL TOPICAL (21:43)
[2024-04-29] MEDS: Fenofibrate 160 MG TABLET PO (21:44)
[2024-04-29] MEDS: Bethanechol Chloride 25 MG TABLET 50 MG PO (21:44)
[2024-04-30] VITALS (7 sets, daily range): BP systolic 81–150; BP diastolic 53–81; PULSE 74–101; RESP 16–22; TEMP 36.6–36.9; O2SAT 96–100
--- NOTE | 2024-04-30 01:56 | MHC.EDTECH ---
This pct assumed care of Patient at 0100 ,vitals taken ,Patient polo bag empty for 2000 ml ,Colostomy bag empty for medium amount of stool ,Patient was given care and reposition in bed ,Patient drank a can of noemi kayla ,all safety measure in Place .
--- NOTE | 2024-04-30 06:30 | MHC.EDTECH ---
300 ml urine empty from polo bag .
[2024-04-30] MEDS: Ferrous Sulfate 324 MG TABLET.DR PO (08:22)
[2024-04-30] MEDS: Cyanocobalamin (Vitamin B-12) 1,000 MCG TABLET 1000 MCG PO (08:22)
[2024-04-30] MEDS: Apixaban 5 MG TABLET PO (08:22)
[2024-04-30] MEDS: Potassium Chloride ER 20 MEQ TAB.ER.PRT PO (08:23)
[2024-04-30] MEDS: Fluticasone/Vilanterol 100/25 BLST.W.DEV 1 PUFF INHALE (08:23)
[2024-04-30] MEDS: clonazePAM 1 MG TABLET PO (08:23)
[2024-04-30] MEDS: Omeprazole 20 MG CAPSULE.DR PO (08:23)
[2024-04-30] MEDS: Tiotropium Bromide 2.5 mcg 1 PUFF/2.5 MCG MIST.INHAL 2 PUFF INHALE (08:23)
[2024-04-30] MEDS: Divalproex Sodium ER 500 MG TAB.ER.24H PO (08:23)
[2024-04-30] MEDS: oxyBUTYnin chloride 5 MG TABLET PO (08:29)
[2024-04-30] MEDS: Bethanechol Chloride 25 MG TABLET 50 MG PO (08:29)
--- NOTE | 2024-04-30 08:32 | PC.NURSE ---
pt awake alert to person/place, pt has lt chest port not accessed, rr equal/non labored lung diminished, polo cath patient/draining, pt states she is uncomfortable in the bed- pt positioned and we are attempting to find a recliner as she would like to sit in recliner- otherwise denying pain, BP was notably low on rt arm when this nurse obtained it x2, provider was notified and am BP meds were held- upon asking the patient, this nurse found that pt was aware of very low BP on her rt arm and was told to do BP only on her lt arm. provider was notified of this as well and we have opted to continue to hold the am BP meds for the time being. pt awaiting dc to snf today.
== END 2024-04-30 10:00 ==
PROVIDERS: Emergency Provider Emergency Medicine; PCP Internal Medicine
DX: M54.50 Low back pain, unspecified (principal); F33.1 Major depressive disorder, recurrent, moderate; I25.10 Atherosclerotic heart disease of native coronary artery without angina pectoris; R26.2 Difficulty in walking, not elsewhere classified; I48.91 Unspecified atrial fibrillation; Z99.81 Dependence on supplemental oxygen; Z11.52 Encounter for screening for COVID-19; Z79.899 Other long term (current) drug therapy; Z87.891 Personal history of nicotine dependence
CPT/HCPCS: 36415; 71045; 72100; 80048; 80076; 81003; 83690; 84484; 85025; 87635; 97162; 99285; S9485

== ENCOUNTER 2024-06-13 13:52 | Outpatient (AMB) | payer MEDICARE, MEDICAID, SELFPAY ==
--- NOTE | 2024-06-13 13:59 | A.OFFPC_ITS ---
Vital Signs 06/13/24 14:01 Height 5 ft 5 in Weight 188 lb 4 oz BMI 31.3 BP 132/72 Blood Pressure Location Lt brachial Position Sitting Pulse 91 Pulse Source Pulse Oximeter Pulse Oximetry (%) 95 Oxygen Delivery Method Room Air Intake Visit Reasons: [facility] 05/17 Intake Note: Patient is here for hospital discharge follow up. Patient was discharged from [facility] on 05/17/24. Lead Consultant Required: No Director Of Occupational Health: Not Required per policy Accompanied by: Self / Same As Patient Allergies Penicillins Allergy (Mild, Verified 06/13/24 14:46) Rash venlafaxine [From Effexor] Allergy (Mild, Verified 06/13/24 14:46) Rash cyclobenzaprine [Cyclobenzaprine] Allergy (Unknown, Verified 06/13/24 14:46) Unknown topiramate [From Topamax] Allergy (Unknown, Verified 06/13/24 14:46) Unknown levofloxacin [From Levaquin] Adverse Reaction (Severe, Verified 06/13/24 14:46) Diarrhea Sulfa (Sulfonamide Antibiotics) Adverse Reaction (Severe, Verified 06/13/24 14:46) Diarrhea fentanyl [FENTANYL] Adverse Reaction (Intermediate, Verified 06/13/24 14:46) Hallucinations tramadol Adverse Reaction (Intermediate, Verified 06/13/24 14:46) Hallucinations Medication List - Last Reconciled 06/13/24 by Jessi Menjivar PA-C acetaminophen ER (Tylenol Arthritis Pain) 1,300 mg (2 x 650 mg) PO Q12H PRN apixaban (Eliquis) 5 mg PO BID atorvastatin 80 mg PO BEDTIME blood pressure monitor As directed blood pressure test kit-large As directed clonazepam 1 mg PO BID 30 days cyanocobalamin (vitamin B-12) (Vitamin B-12) 1,000 mcg PO DAILY diltiazem HCl CD 240 mg PO QPM 30 days divalproex ER 1,000 mg PO BEDTIME divalproex ER 500 mg PO DAILY docusate sodium 100 mg PO BID PRN duloxetine 60 mg PO BEDTIME fenofibrate 160 mg PO BEDTIME ferrous sulfate (FeroSul) 325 mg PO BID fluticasone furoate-vilanterol 100-25 mcg/dose (Breo Ellipta) 1 ea inhalation DAILY [heavy duty adjustable hand rail As directed] hydralazine 50 mg PO TID loperamide (Imodium A-D) 2 mg PO Q6H PRN metaxalone 800 mg PO TID PRN metoclopramide HCl 10 mg PO Q6H PRN metoprolol succinate ER 50 mg PO DAILY nystatin 1 appl See Protocol topical BID omeprazole 20 mg PO BID@0630,1630 potassium chloride ER (K-Tab) 20 mEq PO DAILY riboflavin (vitamin B2) 400 mg PO DAILY 30 days [Tub ledge vertical grab bar/ not suction bar. As directed] umeclidinium 62.5 mcg/actuation (Incruse Ellipta) 1 inh inhalation DAILY walker (Ultra-Light Rollator misc) As directed Tobacco use date assessed: 06/13/24 Dental Screening Dental Screen Date: 06/13/24 Did you have a dental visit in the last 12 months?: No Did you have a dental problem in the last 6 months where you did not have access to dental care?: No Was dental information given to patient?: No (Dentures) [facility] Medical History Chronic confusion Depression Smoker Chronic back pain Colostomy in place (~2020) Personal history of nicotine dependence Polysubstance (including opioids) dependence, binge pattern Atrial fibrillation with rapid ventricular response Congestive heart failure Restrictive lung disease COPD (chronic obstructive pulmonary disease) No natural teeth COVID-19 vaccine series completed History of COVID-19 (~04/2020) Oxygen dependent Pericardial effusion Other and unspecified hyperlipidemia Essential hypertension Peripheral vascular disease Preoperative cardiovascular examination Bilateral pneumonia Adenocarcinoma of sigmoid colon (~2020) Hypernatremia GI bleed UTI (urinary tract infection) Pleural effusion, left Colon cancer (~2020) IVY (obstructive sleep apnea) Cancer of lower lobe of left lung (~2020) GERD (gastroesophageal reflux disease) Acute and chronic respiratory failure Lung cancer Obesity Hypoventilation associated with obesity Obesity hypoventilation syndrome Respiratory failure with hypoxia and hypercapnia Rotator cuff strain Hypoxia Pneumonia Restless legs syndrome (RLS) Sleep disorder Bipolar disorder (~2009) Back pain with history of spinal surgery Renal failure Fibromyalgia Depression High cholesterol PTSD (post-traumatic stress disorder) CAD (coronary artery disease) HTN (hypertension) Surgical History History of partial colectomy (~12/2020) History of cardiac cath (~2010) History of hysterectomy (~1990) History of cholecystectomy History of appendectomy (~1982) History of colonoscopy (~08/2020) History of lobectomy of lung (~08/2020) History of esophagogastroduodenoscopy (EGD) History of bunionectomy (~1977) History of back surgery Family History Maternal Aunt Breast cancer Stroke COPD (chronic obstructive pulmonary disease) Maternal Aunt Breast cancer COPD (chronic obstructive pulmonary disease) Mother Uterine cancer COPD (chronic obstructive pulmonary disease) HTN (hypertension) Heart disease Mental health disorder Maternal Uncle Stroke Paternal Grandmother Heart attack Parkinsons disease Sister Diabetes IBS (irritable bowel syndrome) Son HTN (hypertension) Substance use disorder Daughter HTN (hypertension) Father HTN (hypertension) Brother Heart disease Family/Other Mental health disorder Social History Household Members: Spouse Housing: Apartment Are you a primary care taker to a significant other at home: No Do you presently have visiting nurse or other home services: No Alcohol intake: never Comment: sitter at bedside Patient Tobacco Use Status: Former Tobacco user Tobacco use type: Cigarette Cigarettes Per Day: 4 Years Smoked: 40 Packs per year/per ci.00 e-Cigarette/Vaping Use: Former Use Second Hand Smoke Exposure: No Advance Directives Date on File: 10/05/22 service: No Current occupational status: unemployed and disabled Cognitive needs: Yes (walker ) Hearing needs: No Vision needs: No Questionnaire PHQ-9 Over the last 2 weeks, how often have you been bothered by any of the following problems? 1. Little interest or pleasure in doing things: not at all 2. Feeling down, depressed, or hopeless: not at all 3. Trouble falling or staying asleep, or sleeping too much: not at all 4. Feeling tired or having little energy: not at all 5. Poor appetite or overeating: not at all 6. Feeling bad about yourself - or that you are a failure or have let yourself or your family down: not at all 7. Trouble concentrating on things, such as reading the newspaper or watching television: not at all 8. Moving or speaking so slowly that other people could have noticed. Or the opposite - being so fidgety or restless that you have been moving around a lot more than usual: not at all 9. Thoughts that you would be better off or of hurting yourself in some way: not at all Total score: 0 Depression Screening Interpretation: Negative Depression Screening Done: Yes Source: Developed by Drs. Parrish Hernandez, Claire Washington, Maxwell Oquendo and colleagues, with an educational skip from [employer]. Thrive Questionnaire Date Thrive assessed: 06/13/24 I am a: Patient What is your living situation today?: I have a steady place to live Within the past 12 months, did the food you bought not last and you didn't have the money to get more?: Never true Within the past 12 months, did you worry whether your food would run out before you got money to buy more?: Never true Do you have trouble paying for medicines?: No Do you have trouble getting transportation to medical appointments?: No Do you have trouble paying your heating and electricity bill?: No Do you have trouble taking care of your child, family member or friend?: No Do you have trouble with day-to-day activities such as bathing, preparing meals, shopping, managing finances, etc.?: No Are you currently unemployed and looking for a job?: No Are you interested in more education?: No Please select the resources that you would like help with: None Currently or been in a relationship where the following occur: No concerns reported THRIVE Score: 0 AUDIT C Alcohol Use Questionnaire (AUDIT-C) 1. How often do you have a drink containing alcohol?: Never Total Score: 0 MARIA INES-7 AMB Questionnaire MARIA INES-7 Date MARIA INES - 7 assessed: 06/13/24 Feeling nervous, anxious, or on edge: 0 = Not at all Not being able to stop or control worryin = Not at all Worrying too much about different things: 0 = Not at all Trouble relaxin = Not at all Being so restless that it is hard to sit still: 0 = Not at all Becoming easily annoyed or irritable: 0 = Not at all Feeling afraid as if something awful might happen: 0 = Not at all Total MARIA INES-7 score (0-4 normal; 5-9 mild; 10-14 moderate; 15-21 severe): 0 Source: Developed by Drs. Parrish Hernandez, Claire Washington, Maxwell Oquendo and colleagues, with an educational skip from [employer]. Physical exam (Primary Care) Vital Signs: Last Vital Signs Pulse 91 06/13/24 14:01 BP 132/72 06/13/24 14:01 Pulse Ox 95 06/13/24 14:01 Oxygen Delivery Method Room Air 06/13/24 14:01 Care Plan Goal for BP management: BP today at 132/72 at Goal BMI result Body Mass Index 31.3 BMI Assessment/Plan discussion: High BMI High, discussed plan: lifestyle, weight reduction, dietary, physical activity and alcohol moderation Tobacco/Smoking Status: Tobacco use Status Tobacco use date assessed 06/13/24 06/13/24 14:15 Patient Tobacco Use Status Former Tobacco user 06/13/24 14:15 Tobacco use type Cigarette 06/13/24 14:15 e-Cigarette/Vaping Use Former Use 06/13/24 14:15 PHQ-9: PHQ-9 Score PHQ-9: Total score 0 06/13/24 14:49 Depression Screening Interpretation: Negative Thrive Assessment: Date of Thrive Assessment Date Thrive assessed 06/13/24 06/13/24 14:15 Currently or been in a relationship where the following occur: No concerns reported Coding Level of Care Code Est Pt Level 4 (63280) Complex EM visit Add On G2211 Diagnoses Acute left-sided low back pain with left-sided sciatica M54.42 Back pain laterality: left Chronicity: acute Chronic back pain M54.9; G89.29 Assessment & Plan Assessment & Plan (1) Low back pain with left-sided sciatica: Code(s): M54.42 - Lumbago with sciatica, left side Category: Medical Qualifiers: Back pain laterality: left Chronicity: acute Qualified Code(s): M54.42 - Lumbago with sciatica, left side Plan: Patient with acute on chronic back pain. Normal exam. Walking with her walker. Just discharged from [facility] for physical therapy on 05/17/2024. Patient currently taking low-dose Tylenol and Lidoderm patches with no symptomatic r elief. Requesting stronger medication. Patient will be started on 650 mg tablets of Tylenol patient to take 2 tablets every 8-12 hours for pain. Patient also prescribed Skelaxin muscle relaxer to be taken every 8 hours as needed for pain. Patient will be referred to pain clinic. Will continue to monitor. (2) Chronic back pain: Comment: spinal surgeries in 2002 and 2003 Code(s): M54.9 - Dorsalgia, unspecified; G89.29 - Other chronic pain Category: Medical Plan: See above for plan. Plan Plan - Confirmed that prescriptions have been sent to the patient's designated pharmacy, [facility]. - Suggested that the patient schedule a follow-up appointment around July 09. - Tylenol 650 mg extended release prescribed - Referral to pain management recommended - Skelaxin prescribed as an alternative muscle relaxant - Preoperative appointment for cataract surgery recommended Orders: Referrals Pain Management Referral M54.42 - Lumbago with sciatica, left side Medications: New acetaminophen ER (Tylenol Arthritis Pain) 1,300 mg (2 x 650 mg) PO Q12H PRN 30 tabs 1RF fever or pain metaxalone 800 mg PO TID PRN 30 tabs 1RF muscle pain Patient Instructions: Patient Instructions - Follow up with your pharmacy, [facility], to collect your prescriptions. - Make an appointment for a follow-up visit around July 09. - Contact the office if you experience any issues with your medication or require further guidance. - Begin Tylenol 650 mg two tablets as directed - Initiate Skelaxin as prescribed - Arrange a preoperative visit for cataract surgery - Follow up with pain management upon receiving a referral - Seek assistance in securing a new BUSINESS INTELLIGENCE DEVELOPER to help manage daily tasks - Return to care if pain worsens or if new symptoms develop Scribe Plan - Not visible on output: History of Present Illness The patient is a 58-year-old female presenting with concerns related to chronic back pain and a recent hospitalization follow-up. She initially sought care at [facility] on April 28, 2024, for back pain compounded by a fall. During this visit, the patient was noted to experience hallucinations, suspected to be from her prescribed tramadol, which was given following her fall. Her medical history also includes a recent cancer diagnosis, for which she underwent chemotherapy and is currently in remission. The patient has chronic back pain and was previously on oxycodone, which was decreased voluntarily to two tablets per day. After concerns of hallucinations, she was discharged on April 30 to [facility] for further rehabilitation and physical therapy. She was recently discharged from this care facility on May 17 and reports ongoing pain management issues. 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 Her BUSINESS INTELLIGENCE DEVELOPER services have also been interrupted due to her aide's resignation. Social History - Family status and employment were not discussed. - Exercise, substance use, housing, and nutrition details were not mentioned. - No specific social determinants of health were reviewed. - Lives with her , who also has medical conditions - Permanent use of a walker - BUSINESS INTELLIGENCE DEVELOPER services (22 hours/week) are currently unavailable due to the aide?s resignation - Reports significant household responsibility due to BUSINESS INTELLIGENCE DEVELOPER vacancy Review of Systems - General: Reports no specific symptoms related to current complaints during the encounter. - Musculoskeletal: Reports chronic back pain Physical Exam Appearance: Alert. Oriented X3. No acute distress. Head: Normal external exam. Normocephalic. Atraumatic. Eyes: Pupils are equal, round, and reactive to light. Extraocular movements intact. Conjunctiva and sclera normal. Eyelids normal. Ears: External auditory canal normal. Throat: Pharynx normal. Uvula midline. Moist mucous membranes. Neck: Normal inspection. Neck supple. Full range of motion. No adenopathy. Thyroid Normal. No meningeal signs. No neck mass noted. Cardiovascular: Normal heart rate and rhythm. Heart sound normal. No murmurs noted. Pulses normal throughout. Respiratory: No respiratory distress. Painless inspiration. Breath sounds leonel l. No wheezes/rales/rhonchi noted. Chest nontender. No accessory muscle usage noted or decreased air movement noted. Back: Full range of motion noted. Skin: Skin warm and dry. Normal skin color. Normal skin turgor. No rashes/lesions/lacerations noted. Extremities: No lower extremity edema. Extremities exhibit normal range of motion. Extremities nontender. Neuro: Alert and oriented X3. No motor deficit. No sensory deficit. Reflexes normal. Plan - Confirmed that prescriptions have been sent to the patient's designated pharmacy, [facility]. - Suggested that the patient schedule a follow-up appointment around July 09. - Tylenol 650 mg extended release prescribed - Referral to pain management recommended - Skelaxin prescribed as an alternative muscle relaxant - Preoperative appointment for cataract surgery recommended Patient was informed and verbally consented to the use of an ambient scribe for clinic note documentation during this visit. Discussion Notes I informed the patient that the prescriptions have been sent to [facility]. I advised following up with an appointment around July 09 to assess medication efficacy and make further treatment decisions if necessary. We discussed ensuring that the pharmacy has the correct medications ready and available for the patient's needs. I discussed with the patient the decision to forego further narcotic pain management due to prior hallucinations and the ER's recommendation to avoid them. We considered the risks and benefits of starting Tylenol and Skelaxin for her pain management. I informed her that an expert at a pain management center would better evaluate her condition and potentially offer a more effective treatment plan. The patient was made aware of the need for a preoperative appointment to prepare for her upcoming cataract surgery. We discussed the importance of securing new BUSINESS INTELLIGENCE DEVELOPER services to assist with household activities and support pain management routine.
[2024-06-13 14:01] VITALS: BP 132/72; PULSE 91; O2SAT 95; BMI 31.3
--- OUTSIDE RECORDS SUMMARY | 2024-06-13 15:01 | XMS_ITS | Continuity of Care Document ---
Author Organization [facility], [facility] Address [address] [place] [address] Care Team Providers Care Flag Signaler Name Role Phone [facility] OTHER MICHELLE CASTANON Primary Care Provider Assessment No assessment recorded. Plan of Treatment Reminders Order Date Submit Date Provider Last Modified By Organization Details Last Modified Time Details Appointments None record ed. Lab None record ed. Referral None record ed. Procedures None record ed. Surgeries None record ed. Imaging None record ed. Medication Orders None record ed. Patient TargetsNo targets recorded. Patient InstructionsNo instructions recorded. Reason for Referral None Reported. Problems Name Problem SNOMED Code Status Onset Date Resolution Date Notes Provider Name and Address Organization Details Recorded Time Acute hypercapn ic respirato ry failure 770355795 Active 2019 Janna Buckleyette [address] [facility], [address], [place], [address], [facility] 0 13:33:36 Bipolar disorder 71451674 Active 2019 and PTSD DAVID GARRIDO NP [address] [facility], [address], [place], [address], [facility] 4 11:40:12 Essential hypertens ion 09181986 Active 2019 Janna Buckleyette [address] [facility], [address], [place], [address], [facility] 0 13:36:22 Gastroeso phageal reflux disease without esophagit is 258648530 Active 2019 Janna [place] [address] [facility], [address], [place], [address], [facility] 0 13:37:17 Coronary arteriosc lerosis 47200317 Active 2019 Janna Kamilah [address], [place], [address], [facility] 0 13:41:31 Chronic obstructi ve pulmonary disease 59592905 Active 2019 Janna Kamilah [address], [address], [place], [address], [facility] 0 13:43:44 Obstructi ve sleep apnea syndrome 17254431 Active 2019 Janna [place] [address], [place], [address], [facility] 0 13:45:06 Chronic pain 94805284 Active 2019 back DAVID GARRIDO NP [address] [facility], [address], [place], [address], [facility] 4 11:40:25 Restless legs 60116776 Active 2019 Ray Lee MD [address] [facility], [address], [place], [address], [facility] 0 12:39:59 Malignant tumor of colon 601743757 Active 2023 s/p partial colectomy 2020 with ostomy DAVID GARRIDO NP [address] [facility], [address], [place], [address], [facility] 4 11:41:17 Atrial fibrillat ion 39981443 Active 2023 with RVR DAVID GARRIDO NP [address] [facility], [address], [place], [address], [facility] 4 11:41:27 Congestiv e heart failure 21436490 Active 2023 DAVID GARRIDO NP [address] [facility], [address], [place], [address], [facility] 4 11:41:33 Restricti ve lung disease 27371302 Active 2023 DAVID GARRIDO NP [address] [facility], [address], [place], [address], [facility] 4 11:41:42 Acute-on- chronic respirato ry failure 99829903 Active 2023 DAVID GARRIDO NP [address], [address], [place], [place], [address], [facility] 4 11:41:59 SARS-CoV- 2 Active 2023 DAVID GARRIDO NP [address], [address], [place], [address], [facility] 4 11:42:21 Pericardi al effusion 649910361 Active 2023 DAVID GARRIDO NP [address], [address], [place], [place], [address], [facility] 4 11:42:33 Hyperlipi demia 59931835 Active 2023 DAVID GARRIDO NP [address], [address], [place], [address], [facility] 4 11:42:47 Periphera l vascular disease 335150174 Active 2023 DAVID GARRIDO NP [address], [place], [address], [facility] 4 11:42:59 Gastroint estinal hemorrhag e 27508157 Active 2023 DAVID GARRIDO NP [address] [facility], [address], [place], [address], [facility] 4 11:43:11 Malignant tumor of lung 928105285 Active 2023 s/p LLLobectom y 2020 DAVID GARRIDO NP [address], [place], [address], [facility] 4 11:43:41 Obesity 240797748 Active 2023 DAVID GARRIDO NP [address], [address], [place], [address], [facility] 4 11:44:00 Fibromyal yolis 790604720 Active 2023 DAVID GARRIDO NP [address], [address], [place], [address], [facility] [email or web address] [facility] 4 11:44:15 Asthenia 35988511 Active 2023 DAVID GARRIDO NP [address] [facility], [address], [place], [address], [facility] [email or web address] [facility] 4 11:44:32 Anemia 925726375 Active 2023 DAVID GARRIDO NP [address] [facility], [address], [place], [address], [facility] [email or web address] [facility] 4 11:46:22 Overactiv e urinary bladder 346819771 Active 2023 DAVID GARRIDO NP [address] [facility], [address], [place], [address], [facility] [email or web address] [facility] 4 11:47:19 Urinary tract infectiou s disease 16902562 Active 2023 DAVID GARRIDO NP [address] [facility], [address], [place], [address], [facility] [email or web address] 4 11:47:55 Acute COVID-19 1611063492 Active 2023 Brynn Allen MD [address] [facility], [address], [place], [address], [facility] 4 18:03:34 Problem Notes None recorded. Medical Equipment None Reported. Allergies Allergen ID Allergen Name Allergen Category Reaction Reaction Severity Criticality Documentation Date Start Date Code Code System Note Provider Name and Address Organization Details Recorded Time [id number] 0676859m0 2824e cyclobenz aprine medicatio n Not available Not available Not available 05/01/2020 78037 RxNorm Not Available Not Available Not Available [id number] d9554 fentanyl medicatio n Not available Not available Not available 05/01/2020 4337 RxNorm hallu cinat ions Not Available Not Available Not Available [id number] 1906594f9 2824e topiramat e medicatio n Not available Not available Not available 05/01/2020 77275 RxNorm Not Available Not Available Not Available 5113k1k48 [id number] 0901ms35u 3a182 venlafaxi ne medicatio n Not available Not available Not available 05/01/2020 89015 RxNorm rash Not Available Not Available Not Available [id number] ab4ce Medicinal product containin g penicilli n and acting as antibacte rial agent (product) medicatio n Not available Not available Not available 05/01/2020 48595 05 SNOMED rash Not Available Not Available Not Available [id number] 4378348w8 2824e Levaquin medicatio n Not available Not available Not available 04/30/2024 96341 2 RxNorm diarr hea Not Available Not Available Not Available [id number] 9787034m5 2824e Substance with sulfonami de structure and antibacte rial mechanism of action (substanc e) medicatio n Not available Not available Not available 04/30/2024 87663 8003 SNOMED diarr hea Not Available Not Available Not Available Vitals Date Recorded Body height Heart rate Respiratory rate Body temperature Oxygen saturation Oxygen saturation in Arterial blood by Pulse oximetry Systolic blood pressure Diastolic blood pressure Provider Name and Address Organization Details Last Updated DateTime 4 165.1 cm 94 /min 17 /min 97.3 [degF] 95 % 95 % 122 mm[Hg] 72 mm[Hg] Nadiya Jorgensen NP [address] [facility] [address], [place], [address], [facility] 4 08:54:32 Social History Question Answer Notes LastModified by Organizat ion Details LastModified Time Tobacco Smoking Status Former Smoker Janna Triana [address] [facility] [address], [place], [address], [facility] 05/01/2020 14:31:11 Do You Have An Advance Directive? Yes Information not available 05/07/2024 What Is Your Level Of Alcohol Consumption? None [email or web address] Information not available 04/30/2024 What Is Your Code Status? Full Code [email or web address] Information not available 04/30/2024 Do You Or Have You Ever Used E-cigarettes Or Vape? Former User Of Electronic Cigarettes [email or web address] Information not available 04/30/2024 [address] Do You Live? Apartment Lives With , Supportive [email or web address] Information not available 04/30/2024 Do You Have A Medical Power Of Finish Patcher? Yes Has HCP [email or web address] Information not available 04/30/2024 What Was The Date Of Your Most Recent Tobacco Screening? 04/30/2024 [email or web address] Information not available 04/30/2024 Do You Have An Out Of Hospital DNR? No Information not available 05/07/2024 What Is Your Relationship Status? Information not available 05/07/2024 Do You Or Have You Ever Used Smokeless Tobacco? Never Used Smokeless Tobacco [email or web address] Information not available 05/01/2020 How Much Tobacco Do You Smoke? No [email or web address] Information not available 04/30/2024 Do You Use Any Illicit Or Recreational Drugs? No [email or web address] Information not available 04/30/2024 Has Tobacco Cessation Counseling Been Provided? No Information not available 04/30/2024 How Many Years Have You Smoked Tobacco? 40 [email or web address] Information not available 04/30/2024 Do You Or Have You Ever Used Any Other Forms Of Tobacco Or Nicotine? Yes [email or web address] Information not available 04/30/2024 Sex: Unknown Functional Status None recorded. Mental Status None recorded. Family History Relationship Description Onset Age of this Age Resolved Age Notes LastModified by Organization Details LastModified Time Father Hypertensive disorder [email or web address] Not available 2023 11:28:51 Mother Hypertensive disorder Not available 2023 11:28:51 Mother Malignant neoplasm of uterus [email or web address] Not available 2023 11:29:10 Mother Chronic obstructive pulmonary disease [email or web address] Not available 2023 11:29:26 Mother Heart disease [email or web address] Not available 2023 11:29:51 Mother Mental disorder [email or web address] Not available 2023 11:30:10 Notes:mother by suicide Medical History No medical history recorded. Gynecological HistoryNo gynecological history recorded. Obstetrics History GPAL:G 0 P 0 0 0 0 Immunizations Vaccine Type Date Status Note Provider Navi aragon and Address Organization Details Recorded Time Tdap 6 completed Tatyana roach [facility] 05/01/2024 14:41:19 pneumococcal polysaccharide PPV23 0 completed Tatyana Alaniz [facility] 05/01/2024 14:41:33 influenza, unspecified formulation 2 completed Tatyana [facility] 05/01/2024 14:41:49 SARS-COV-2 (COVID-19) vaccine, UNSPECIFIED 1 completed Tatyana [facility] 05/01/2024 14:42:06 SARS-COV-2 (COVID-19) vaccine, UNSPECIFIED 1 completed Tatyana [facility] 05/01/2024 14:42:13 Past Encounters Encounter ID Performer Location Encounter Start Date Encounter Closed Date Diagnosis/Indication Diagnosis SNOMED-CT Code Diagnosis ICD10 Code Diagnosis Note [id number] DAVID GARRIDO NP [address] [address] 04/30/2024 11:24:50 05/01/2024 10:36:48 Asthenia [id number] R53.1 deconditio regina due to recent infection and chronic medical conditions fall x 2 wks agoPT OT eval and tx.Goal is to return home. Chronic pain 18052281 G8 9.29 with increased c/o back pain post fall 2 wks ago.ER work up unremarkab le.PT OT eval and tx.APAP prnultram 50 mg q8 hr prnMonitor and adjust med prnRefer to in house PMR for eval. and tx. Bipolar disorder 6588158 4 F31.89 also with PTSDalso dealing with the of her [place] in [place] home meds:VPA 500 mg q am, 1000 mg q pmDuloxeti ne 60 mg q hsClonazep am 1 mg bidMonitor mood, behaviorsS upportive carePsych eval prn Chronic ob structive pulmonary disease 53329213 J44.1 States uses O2 PRN at home, currently not wearing, will let us know when she needs it.Continu e home meds:Incru se ellipta 1 inh qdBreo ellipta 1 inh qdMonitor resp. status. Anemia 020833862 D64.9 ??H/O GI bleedCurre ntly on:Fe SO4 325 mg bidB12 1000 mcg qdWill continue meds and trend CBCHgb. 10.4 in ER Essential hypertension 74493221 I10 Continue home meds:Hydra lazine 50 mg tidCardize m CD 240 mg qdMetoprol ol XL 50 mg qdTrend VS, adjust prn Hyperlipidemia 94874974 E78.5 Continue home meds:atorv astatin 80 mg qdfenofibr ate 160 mg qdLipid panel prn Coronary arteriosclerosis 20089482 I25.10 Meds as aboveMonit or CP status Atrial fibrillation 4943 6004 I48.91 Continue home meds:Eliqu is 5 mg bidDiltiaz em CD 240 mg qdMetoprol ol XL 50 mg qdMonitor VS, CP status, bleeding risk (h/o GI bleed) Overactive urinary bladder 229689751 N32.81 ? retention Currently with polo, states placed during hospitaliz ation earlier in the month and was sent home with it. Reports also treated for UTI.UA in ER neg. Currently on:oxybuti juan josé 5 mg qdbethanec hol 50 mg bid Plan:Will continue medsRemove polo, attempt voiding trial (no scanner currently available so will cath q shift prn no void or s/s retention) .Can replace polo if still retaining and refer to Dr. Benitez Gastroebenop hageal reflux disease without esophagitis 924467646 K21.9 with hx. GI BleedConti nue omeprazole 20 mg bidMonitor GI sx. Urinary tr act infectious disease 13508371 N39.0 ??cefpodox jocelyne on d/c med list, but suspect this is in error as UA in ER negative and pt. reports prior UTI addressed during previous hospitaliz ation. Malignant tumor of colon 868660928 C18.9 s/p partial colectomy 2020, now with ostomyAble to perform self care.Mali nue home bowel meds:Imodi um 2 mg q6 hr prnreglan 10 mg q6 hr prnlomotil bid prnlactulo se 15 ml qd prnzofran 8 mg qid prncolace 100 mg bid prn Headache 30596343 R51.9 ??On B2 400 mg qd - will continue Hypokalemia 60461697 E87 .6 On KCL 20 meq qdMonitor BMP [id number] Nadiya Jorgensen, SADE [address] [place] [address] 05/06/2024 10:44:30 05/07/2024 09:37:52 Asthenia [id number] R53.1 deconditio regina due to recent infection and chronic medical conditions fall x 2 wks agoPT OT eval and tx.Goal is to return home. Chronic pain 30147910 G8 9.29 with increased c/o back pain post fall 2 wks ago.ER work up unremarkab le.PT OT eval and tx.APAP prnultram 50 mg q8 hr prnMonitor and adjust med prnRefer to in house PMR for eval. and tx. Bipolar disorder 2917086 4 F31.89 also with PTSDalso dealing with the of her [place] in [place] home meds:VPA 500 mg q am, 1000 mg q pmDuloxeti ne 60 mg q hsClonazep am 1 mg bidMonitor mood, behaviorsS upportive carePsych eval prn Chronic ob structive pulmonary disease 91656899 J44.1 States uses O2 PRN at home, currently not wearing, will let us know when she needs it.Continu e home meds:Incru se ellipta 1 inh qdBreo ellipta 1 inh qdMonitor resp. status. Anemia 518911593 D64.9 labs normal on last check, will reorder todayH/O GI bleedCurre ntly on:Fe SO4 325 mg bidB12 1000 mcg qdWill continue meds and trend CBCHgb. 10.4 in ER Essential hypertension 76796418 I10 Continue home meds:Hydra lazine 50 mg tidCardize m CD 240 mg qdMetoprol ol XL 50 mg qdTrend VS, adjust prn Hyperlipidemia 35244479 E78.5 Continue home meds:atorv astatin 80 mg qdfenofibr ate 160 mg qdLipid panel prn Coronary arteriosclerosis 27412943 I25.10 Meds as aboveMonit or CP status Atrial fibrillation 4943 6004 I48.91 Continue home meds:Eliqu is 5 mg bidDiltiaz em CD 240 mg qdMetoprol ol XL 50 mg qdMonitor VS, CP status, bleeding risk (h/o GI bleed) Overactive urinary bladder 528255661 N32.81 ?? retentionf oley removed last week, and voiding wellUA in ER neg. Currently on:oxybuti juan josé 5 mg qdbethanec hol 50 mg bidCan replace polo if still retaining and refer to Dr. Benitez Gastroebenop hageal reflux disease without esophagitis 212171164 K21.9 with hx. GI BleedConti nueomepraz ole 20 mg bidMonitor GI sx. Urinary tr act infectious disease 99935610 N39.0 ??will send another urinalysis with recent increased confusion per last PROP SETTER:cefpodo bernie on d/c med list, but suspect this is in error as UA in ER negative and pt. reports prior UTI addressed during previous hospitaliz ation. Malignant tumor of colon 592424322 C18.9 cancer in remission per ER note and oncologys/ p partial colectomy 2020, now with ostomyAble to perform self care.Mali nue home bowel meds:Imodi um 2 mg q6 hr prnreglan 10 mg q6 hr prnlomotil bid prnlactulo se 15 ml qd prnzofran 8 mg qid prncolace 100 mg bid prn Hypokalemia 87357088 E87 .6 On KCL 20 meq qdMonitor BMP Acute COVID-19 093637359 8 U07.1 pt with new diagnosis of acute covid 19 noted with mild fever and cough yesterday on 05/05 test 05/06 all meds and adverse reactions reviewed and will not use paxlovid with eliquis and simvastati n reaction along with increased uptake noted for depakote and duloxetine per pharmacy especially with recent increase in confusion startisola tion precaution s per facilityen courage po fluidsmoln upiravir 800 mg po bid x 5daysrobit ussin 10 m l po q 6 hours prn coughzofra n 4 mg po prn q 6 hoursmonit or vitals daily Altered mental status 41 4101348 R41.82 pt with increased confusion from regular confused baseline today per , pt does state she is speaking of a doll in the room today, but not seen (unclear if this is in her belongings as she is packed to go home)[place] nd reports recent ct head and mri's for confusion at hospital aswell as full body scan with cancer found in remission in 04/10/24 appt with oncologist 05/06 will get work up today05/06 start workup todaybld cultures x 2, urinalysis with c & s, cbc with diff, cmp, valproic acid levelwith recent confusion and agitation will add clonazepam 1 mg po q 8 hour prn, may be given 1 hour after scheduled dose if needed for breakthrou gh agitationm onitor closely and redirect as able [id number] Brynn Allen MD [address] [place] [address] 05/07/2024 16:10:17 05/08/2024 10:41:40 Acute COVID-19 5971988602 U07.1 Tested + on ppeti te still good, O2 sats good on RA.Continu e molnupirav ir 800 mg BID x 5 days and robitussin 10 m l po q 6 hours prn coughTo use dexamethas one, fluids, supplement al O2 prn for sxs.Contin ue to monitor O2 sats, temp, GI sxs and po intake. Altered mental status 41 7733746 R41.82 Likely due to Covid.Fair ly oriented right now, but apparently had some hallucinat ions earlier.Co ntinue clonazepam 1 mg q 8 hrs prn agitation in addition to usual 1 mg BID as noted below.Reor ient as needed.Mon itor. Asthenia 04354899 R53.1 PT/OT as above.Goal is to return home. Chronic pain 77235411 G8 9.29 Per fell 6 wks ago, but may have had another fall more recently.N o acute findings in ED.Needs PT/OT for strengthen ing, balance, gait training, safety and function.C ontinue fall precaution s.Monitor for safety.Con tinue APAP 650 mg q 4 hrs prn and tramadol 50 mg q 8 hrs prn.Monito r pain control and function.P M&R consult Bipolar disorder 2246832 4 F31.89 Mood good right now, but says she was very confused earlier, see above.Cont inue VPA 500 mg qam and 1000 mg qpm, duloxetine 60 mg qhs and clonazepam 1 mg BID and 1 mg q 8 hrs prn.Monito r mood and behaviorsP sych consult Chronic ob structive pulmonary disease 98703441 J44.1 Uses supplement al O2 prn at home, O2 sats have been good on RA since here.Aimee montoya monitoring sats TID for covid surveillan ce and will use O2 prn to maintain sats >92%.Mali nue Incruse ellipta 62.5 mcg 1 puff qd and Breo ellipta 100/25 mcg1 puff qdMonitor resp. status. Anemia 770555795 D64.89 Hgb stable in 10-12 range.H/O GI bleedConti nue FeSO4 325 mg BID and B12 1000 mcg qdMonitor labs. Essential hypertension 58622898 I10 Good control since here.Mali nue hydralazin e 50 mg TID, diltiazem CD 240 mg qd, and metoprolol XL 50 mg qdMonitor BP and labs. Hyperlipidemia 55174573 E78.49 Continue atorvastat in 80 mg qd and fenofibrat e 160 mg qdMonitor labs as outpt. Coronary arteriosclerosis 87159701 I25.10 No recent sxs.Contin ue meds as above.Kandi tor sxs Atrial fibrillation 4943 6004 I48.0 Rate in good control on meds as above.Cont inue eliquis 5 mg BID for AC.Monitor HR and bleeding risk. Overactive urinary bladder 605993912 N32.81 S/P retention during last hospitaliz ationNow voiding wellContin ue oxybutynin 5 mg qd and bethanecho l 50 mg BIDMonitor urinary function.U ro f/u prn. Gastroesop hageal reflux disease without esophagitis 505000600 K21.9 Hx of GI BleedConti nue omeprazole 20 mg BID.Monito r GI sxs. Urinary tr act infectious disease 99796512 N30.80 Reportedly U/A ordered yest due to increased confusion, but none sent yet.Suspec t confusion is due to Covid.But will remind nursing about obtaining urine. Malignant tumor of colon 820948369 C18.8 S/P partial colectomy 2020, with ostomy in place.Per last imaging done in 11/2023 has mass in pelvis which is likely metastatic from colon. Has been continuing chemo for this.Compl eted chemo about 4-6 wks ago.Contin ue home bowel meds: Imodium 2 mg q6 hr prn, reglan 10 mg q6 hr prn, lomotil bid prn, lactulose 15 ml qd prn, zofran 8 mg qid prn, and colace 100 mg BID. prnF/U with oncology as planned. Hypokalemia 69468915 E87 .6 Continue KCL 20 meq qdMonitor [facility] [id number] Nadiya Jorgensen, SADE [facility] [place] [address] [facility] [address] 05/13/2024 13:43:08 05/14/2024 13:30:16 Chronic pain 49214111 G89.29 lower back pain (Per fell 6 wks ago, possibly other falls)work up unremarkab le felt rehab appropriat epain controlled todaycontP T/OT for strengthen ing, balance, gait training, safety and function.f all precaution s.Monitor for safety.APA P 650 mg q 4 hrs prntramado l 50 mg q 8 hrs prn.Monito r pain control and function.P M&R consult Acute COVID-19 570536834 8 U07.1 Tested + on 05/05 now considered recovered with mild courseComp leted molnupirav ir 800 mg BID x 5 days and robitussin 10 m l po q 6 hours prn cough, and off isolationh allucinati ons seem resolved, likely r/t covid? with underlying dementiamo nitor for sequele Altered mental status 41 6956518 R41.82 Likely due to Covid.Fair ly oriented right now, but apparently had some hallucinat ions earlier.Co ntinue clonazepam 1 mg q 8 hrs prn agitation in addition to usual 1 mg BID as noted below.Reor ient as needed.Mon itor. Asthenia 52112893 R53.1 PT/OT as above.Goal is to return home. Bipolar disorder 6830765 4 F31.89 Mood good right now, but says she was very confused earlier, see above.Cont inue VPA 500 mg qam and 1000 mg qpm, duloxetine 60 mg qhs and clonazepam 1 mg BID and 1 mg q 8 hrs prn.Monito r mood and behaviorsP sych consult Chronic ob structive pulmonary disease 59199821 J44.1 Uses supplement al O2 prn at home, O2 sats have been good on RA since here.Aimee montoya monitoring sats TID for covid surveillan ce and will use O2 prn to maintain sats >92%.Mali nue Incruse ellipta 62.5 mcg 1 puff qd and Breo ellipta 100/25 mcg1 puff qdMonitor resp. status. Anemia 120859648 D64.89 Hgb stable in 10-12 range.H/O GI bleedConti nue FeSO4 325 mg BID and B12 1000 mcg qdMonitor labs. Essential hypertension 80902379 I10 Good control since here.Mali nue hydralazin e 50 mg TID, diltiazem CD 240 mg qd, and metoprolol XL 50 mg qdMonitor BP and labs. Hyperlipidemia 15023028 E78.49 Continue atorvastat in 80 mg qd and fenofibrat e 160 mg qdMonitor labs as outpt. Coronary arteriosclerosis 97452153 I25.10 No recent sxs.Contin ue meds as above.Kandi tor sxs Atrial fibrillation 4943 6004 I48.0 Rate in good control on meds as above.Cont inue eliquis 5 mg BID for AC.Monitor HR and bleeding risk. Overactive urinary bladder 923105323 N32.81 S/P retention during last hospitaliz ationNow voiding wellContin ue oxybutynin 5 mg qd and bethanecho l 50 mg BIDMonitor urinary function.U ro f/u prn. Gastroesop hageal reflux disease without esophagitis 498710919 K21.9 Hx of GI BleedConti nue omeprazole 20 mg BID.Monito r GI sxs. Urinary tr act infectious disease 26734461 N30.80 Reportedly U/A ordered yest due to increased confusion, but none sent yet.Suspec t confusion is due to Covid.But will remind nursing about obtaining urine. Malignant tumor of colon [id number] C18.8 S/P partial colectomy 2020, with ostomy in place.Per last imaging done in 11/2023 has mass in pelvis which is likely metastatic from colon. Has been continuing chemo for this.Compl eted chemo about 4-6 wks ago.Contin ue home bowel meds: Imodium 2 mg q6 hr prn, reglan 10 mg q6 hr prn, lomotil bid prn, lactulose 15 ml qd prn, zofran 8 mg qid prn, and colace 100 mg BID. prnF/U with oncology as planned. Hypokalemia 78699131 E87 .6 Continue KCL 20 meq qdMonitor BMP Health Concerns Section Related Observation LastModified by Organization Detai ls LastModified Time None Recorded Concern Status LastModified by Organization Details LastModified Time None Recorded Payers Encounter Date Sequence Insurance Name Policy Number Policy Crystal Covered Member ID Crystal Member ID Guarantor Name 05/13/2024 1 [place]ARE [place]: [facility] Claire Seth [id number] Claire Rolo 05/13/2024 2 [place] [facility] Claire Rolo [id number] Claire Rolo Notes Date Note Type Note Provider Name and Address Organization Details Recorded Time 05/13/2024 text/html Claire is seen to day for an acute rounding visit. 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 She is a 58 yo lady, admitted today to [facility] [place] and [place]hab after an ER eval due to back pain and weakness and altered mental status. . She presented to [facility] [place] 04[place]24 with worsening back pain x 2 weeks after sustaining a fall at home. Work up unremarkable but would benefit from PT OT due to gross deconditioning. Details below. Since here at [facility] she has been working with therapy and getting stronger. She was found to be covid + on while here on 05/05 , received antirvirals, and now considered covid recovered. Mostly asymptomatic with some weakness. Polo removed here and no urination problems per nursing/pt. On exam, She is seen ambulating in the hernandes today with walker taking rest breaks, but not short no breath. She remains alert, forgetful at times but pleasant and cooperative. Mental status improving over last few days. She is not hallucinating today, which she had a few days ago seeing a small girl in her room. of note:She had [facility] for AMS.Per d/c summary:58F PMH depression, anemia,sigmoid adenocarcinoma s/p colostomy, in remission, completed chemo 3 week ptp, cad, pafib, chronic hyopxic respiratory failure on 2L home o2, hfpef, htn hld, presnted with confusion. History gathered from chart, patient, . For about 2-3 weeks has had increased confusion, talking to people who were not present, visual hallucinations, poor memory retention. Denies previous symptoms, has noted somecognitive decline over the past 2 years, accelerated after of son in 08/23/2023. Does have family history of early-onset dementia. Denies headache, fever, chills, shortness of breath.Initially presented to ED 04/11/2024 with hypotension and altered mental status, that resolved and was discharged home. Then returned to 04/14/2024, initially planned for psychiatry eval, however, medical admission requested to rule out chemo induced encephalopathy or pres. The patient was evaluated primarly for Acute toxic\metabolic encephalopathy as she was evaluated for rule out PRESS vs chemo induced encephalopathy versus progression of dementia with psychotic features or polypharmacy withNEgative MRIfor any acute findings ,abnormal EEG but no evidence of seizureas she was evalauted by neurology. Her other blood work showed normal tsh, b12, folate, mildly elevated esr, crp along with leukocytosis. Urine was checked and showed evidence of infection that was treated with IV antibiotics. Her symptoms improved and her mentation went back to baseline even before the antibiotics. Psychiatry appreciated, added Haldol 1 mg b.i.d. for hallucinations but then it was taken off and patient tolerated well with no more hallucinations or psychotic symptoms.It seems more of a multifactorial picture with Urine retention, urine infection, polypharmacy leading to her encephalopathy. she is still at risk of developing similar symptoms in future as no exact cause identified. for now will treat the infection, control urine retention with polo catheter and discontinue Amytriptilyne.She was noted to haveLeukocytosis likely from urine infection. Treated with IV Ceftriaxone with good response. Culture growing GNR and 50-100k strep\entero. it can all be contaminent from straight catheterization but will continue to treat it on discharge with Cefpodoxime for 5 more days.For acuteUrinary retention she was placed on straight cath as she Failed voiding trial post Polo removal. evaluated by urologist who recommended placement a polo catheter with a cap and regular emptying every 6 hours. Started on Bethanechol with a plan to follow up with dr Benitez in office in 2 weeks for voiding trial and removal of the catheter. HODGE: mod. fall riskMOLST: DAYNE Jorgensen NP [address] [facility], [address], [place], [address], [facility] 05/14/2024 09:27:31 OBGyn Episode No OBEpisode recorded.
--- OUTSIDE RECORDS SUMMARY | 2024-06-13 15:01 | XMS_ITS | Continuity of Care Document ---
Author Organization [facility] Address [address] [place] [address] Care Team Providers Care Nuclear Auxiliary Operator Name Role Phone SUPRIYA LÓ[facility]NOR[facility] OTHER MICHELLE CASTANON [...] Time Acute hypercapn ic respirato ry failure 639696075 Active 2019 Janna Buckleyette [address] [facility], [address], [place], [address], [facility] 0 13:33:36 Bipolar disorder 51958611 Active 2019 and PTSD DAVID GARRIDO NP [address] [facility], [address], [place], [address], [facility] 4 11:40:12 Essential hypertens ion 06878149 Active 2019 Janna Buckleyette [address] [facility], [address], [place], [address], [facility] 0 13:36:22 Gastroeso phageal reflux disease without esophagit is 315782346 Active 2019 Janna [place] [address] [facility], [address], [place], [address], [facility] 0 13:37:17 Coronary arteriosc lerosis 61657265 Active 2019 Janna Kamilah [address] , [address], [place], [address], [facility] 0 13:41:31 Chronic obstructi ve pulmonary disease 44265328 Active 2019 Janna Kamilah [address], [address], [place], [address], [facility] 0 13:43:44 Obstructi ve sleep apnea syndrome 65813589 Active 2019 Janna [place] [address] , [address], [place], [address], [facility] 0 13:45:06 Chronic pain 10755926 Active 2019 back DAVID GARRIDO NP [address] [facility], [address], [place], [address], [facility] 4 11:40:25 Restless legs 80094474 Active 2019 Ray Lee MD [address] [facility], [address], [place], [address], [facility] 0 12:39:59 Malignant tumor of colon 785557503 Active 2023 s/p partial colectomy 2020 with ostomy DAVID GARRIDO NP [address] [facility], [address], [place], [address], [facility] 4 11:41:17 Atrial fibrillat ion 83720934 Active 2023 with RVR DAVID GARRIDO NP [address] [facility], [address], [place], [address], [facility] 4 11:41:27 Congestiv e heart failure 80943638 Active 2023 DAVID GARRIDO NP [address] [facility], [address], [place], [address], [facility] 4 11:41:33 Restricti ve lung disease 28177571 Active 2023 DAVID GARRIDO NP [address] [facility], [address], [place], [address], [facility] 4 11:41:42 Acute-on- chronic respirato ry failure 70749536 Active 2023 DAVID GARRIDO NP [address], [address], [place], [place], [address], [facility] 4 11:41:59 SARS-CoV- 2 Active 2023 DAVID GARRIDO NP [address], [address], [place], [address], [facility] 4 11:42:21 Pericardi al effusion 188940078 Active 2023 DAVID GARRIDO NP [address], [address], [place], [place], [address], [facility] 4 11:42:33 Hyperlipi demia 54136230 Active 2023 DAVID GARRIDO NP [address], [address], [place], [address], [facility] 4 11:42:47 Periphera l vascular disease 699568191 Active 2023 DAVID GARRIDO NP [address], [place], [address], [facility] 4 11:42:59 Gastroint estinal hemorrhag e 16879082 Active 2023 DAVID GARRIDO NP [address] [facility], [address], [place], [address], [facility] 4 11:43:11 Malignant tumor of lung 841606674 Active 2023 s/p LLLobectom y 2020 DAVID GARRIDO NP [address] , [address], [place], [address], [facility] 4 11:43:41 Obesity 003622780 Active 2023 DAVID GARRIDO NP [address], [address], [place], [address], [facility] 4 11:44:00 Fibromyal yolis 853234731 Active 2023 DAVID GARRIDO NP [address], [address], [place], [address], [facility] [facility] 4 11:44:15 Asthenia 75545444 Active 2023 DAVID GARRIDO NP [address] [facility], [address], [place], [address], [facility] [employer] [facility] 4 11:44:32 Anemia 081336028 Active 2023 DAVID GARRIDO NP [address] [facility], [address], [place], [address], [facility] [employer] [facility] 4 11:46:22 Overactiv e urinary bladder 676656502 Active 2023 DAVID GARRIDO NP [address] [facility], [address], [place], [address], [facility] [employer] [facility] 4 11:47:19 Urinary tract infectiou s disease 13101773 Active 2023 DAVID GARRIDO NP [address] [facility], [address], [place], [address], [facility] 4 11:47:55 Acute COVID-19 4172725554 Active 2023 Brynn Allen MD [address] [facility], [address], [place], [address], [facility] 4 18:03:34 Problem Notes None recorded. Medical Equipment None Reported. Allergies Allergen ID Allergen Name Allergen Category Reaction Reaction Severity Criticality Documentation Date Start Date Code Code System Note Provider Name and Address Organization Details Recorded Time [id number] 1325866s9 2824e cyclobenz aprine medicatio n Not available Not available Not available 05/01/2020 35743 RxNorm Not Available Not Available Not Available [id number] 1839y322e 5f31y36l1 d9554 fentanyl medicatio n Not available Not available Not available 05/01/2020 4337 RxNorm hallu cinat ions Not Available Not Available Not Available [id number] 608470051 9192661p4 2824e topiramat e medicatio n Not available Not available Not available 05/01/2020 34273 RxNorm Not Available Not Available Not Available [id number] 2796cm87c 3a182 venlafaxi ne medicatio n Not available Not available Not available 05/01/2020 38701 RxNorm rash Not Available Not Available Not Available [id number] 3y89t7id3 ab4ce Medicinal product containin g penicilli n and acting as antibacte rial agent (product) medicatio n Not available Not available Not available 05/01/2020 35125 05 SNOMED rash Not Available Not Available Not Available [id number] 2753663h8 2824e Levaquin medicatio n Not available Not available Not available 04/30/2024 57056 2 RxNorm diarr hea Not Available Not Available Not Available [id number] 556674578 8272905v8 2824e Substance with sulfonami de structure and antibacte rial mechanism of action (substanc e) medicatio n Not available Not available Not available 04/30/2024 54948 8003 SNOMED diarr hea Not Available Not Available Not Available Vitals Date Recorded Heart rate Respiratory rate Body temperature Oxygen saturation Oxygen saturation in Arterial blood by Pulse oximetry Systolic blood pressure Diastolic blood pressure Provider Name and Address Organization Details Last Updated DateTime 4 87 /min 18 /min 97.8 [degF] 94 % 94 % 119 mm[Hg] 62 mm[Hg] DAVID GARRIDO NP [address] [facility] [address], [place], [address], [facility] 4 11:25:49 Social History Question Answer Notes LastModified by Organizat ion Details LastModified Time Tobacco Smoking Status Former Smoker Janna Triana [address] [facility] [address], [place], [address], [facility] 05/01/2020 14:31:11 Do You Have An Advance Directive? Yes Information not available 05/07/2024 What Is Your Level Of Alcohol Consumption? None [email or web address] Information not available 04/30/2024 What Is Your Code Status? Full Code [email or web address] Information not available 04/30/2024 Do You Or Have You Ever Used E-cigarettes Or Vape? Former User Of Electronic Cigarettes Information not available 04/30/2024 [address] Do You Live? Apartment Lives With , Supportive [email or web address] Information not available 04/30/2024 Do You Have A Medical Power Of Painter Chassis? Yes Has HCP [email or web address] Information not available 04/30/2024 What Was The Date Of Your Most Recent Tobacco Screening? 04/30/2024 Information not available 04/30/2024 Do You Have An Out Of Hospital DNR? No Information not available 05/07/2024 What Is Your Relationship Status? Information not available 05/07/2024 Do You Or Have You Ever Used Smokeless Tobacco? Never Used Smokeless Tobacco [email or web address] Information not available 05/01/2020 How Much Tobacco Do You Smoke? No [email or web address] Information not available 04/30/2024 Do You Use Any Illicit Or Recreational Drugs? No [email or web address] Information not available 04/30/2024 Has Tobacco Cessation Counseling Been Provided? No [email or web address] Information not available 04/30/2024 How Many Years Have You Smoked Tobacco? 40 [email or web address] Information not available 04/30/2024 Do You Or Have You Ever Used Any Other Forms Of Tobacco Or Nicotine? Yes Information not available 04/30/2024 Sex: Unknown Functional Status None recorded. Mental Status None recorded. Family History Relationship Description Onset Age of this Age Resolved Age Notes LastModified by Organization Details LastModified Time Father Hypertensive disorder [email or web address] Not available 2023 11:28:51 Mother Hypertensive disorder [email or web address] Not available 2023 11:28:51 Mother Malignant neoplasm of uterus [email or web address] Not available 2023 11:29:10 Mother Chronic obstructive pulmonary disease [email or web address] Not available 2023 11:29:26 Mother Heart disease [email or web address] Not available 2023 11:29:51 Mother Mental disorder [email or web address] Not available 2023 11:30:10 Notes:mother by suicide Medical History No medical history recorded. Gynecological HistoryNo gynecological history recorded. Obstetrics History GPAL:G 0 P 0 0 0 0 Immunizations Vaccine Type Date Status Note Provider Nam e and Address Organization Details Recorded Time Tdap 6 completed Tatyana roach [facility] 05/01/2024 14:41:19 pneumococcal polysaccharide PPV23 11/21/201 0 completed Tatyana Corbin [facility] 05/01/2024 14:41:33 influenza, unspecified formulation 2 completed Tatyana [facility] 05/01/2024 14:41:49 SARS-COV-2 (COVID-19) vaccine, UNSPECIFIED 1 completed Tatyana [facility] 05/01/2024 14:42:06 SARS-COV-2 (COVID-19) vaccine, UNSPECIFIED 1 completed Tatyana [facility] 05/01/2024 14:42:13 Past Encounters Encounter ID Performer Location Encounter Start Date Encounter Closed Date Diagnosis/Indication Diagnosis SNOMED-CT Code Diagnosis ICD10 Code Diagnosis Note [id number] DAVID GARRIDO NP [address] [address] 04/30/2024 11:24:50 05/01/2024 10:36:48 Asthenia [id number] R53.1 deconditio regina due to recent infection and chronic medical conditions fall x 2 wks agoPT OT eval and tx.Goal is to return home. Chronic pain 53859623 G8 9.29 with increased c/o back pain post fall 2 wks ago.ER work up unremarkab le.PT OT eval and tx.APAP prnultram 50 mg q8 hr prnMonitor and adjust med prnRefer to in house PMR for eval. and tx. Bipolar disorder 9772238 4 F31.89 also with PTSDalso dealing with the of her son in [place] home meds:VPA 500 mg q am, 1000 mg q pmDuloxeti ne 60 mg q hsClonazep am 1 mg bidMonitor mood, behaviorsS upportive carePsych eval prn Chronic ob structive pulmonary disease 74247596 J44.1 States uses O2 PRN at home, currently not wearing, will let us know when she needs it.Continu e home meds:Incru se ellipta 1 inh qdBreo ellipta 1 inh qdMonitor resp. status. Anemia 624794210 D64.9 ??H/O GI bleedCurre ntly on:Fe SO4 325 mg bidB12 1000 mcg qdWill continue meds and trend CBCHgb. 10.4 in ER Essential hypertension 75000981 I10 Continue home meds:Hydra lazine 50 mg tidCardize m CD 240 mg qdMetoprol ol XL 50 mg qdTrend VS, adjust prn Hyperlipidemia 18083073 E78.5 Continue home meds:atorv astatin 80 mg qdfenofibr ate 160 mg qdLipid panel prn Coronary arteriosclerosis 24031325 I25.10 Meds as aboveMonit or CP status Atrial fibrillation 4943 6004 I48.91 Continue home meds:Eliqu is 5 mg bidDiltiaz em CD 240 mg qdMetoprol ol XL 50 mg qdMonitor VS, CP status, bleeding risk (h/o GI bleed) Overactive urinary bladder 274633429 N32.81 ? retention Currently with polo, states [...] if still retaining and refer to Dr. Emmanuel Jama hageal reflux disease without esophagitis 138836376 K21.9 with hx. GI BleedConti nue omeprazole 20 mg bidMonitor GI sx. Urinary tr act infectious disease 47635232 N39.0 ??cefpodox jocelyne on d/c med list, but suspect this is in error as UA in ER negative and pt. reports prior UTI addressed during previous hospitaliz ation. Malignant tumor of colon 974596642 C18.9 s/p partial colectomy 2020, now with ostomyAble to perform self care.Mali nue home bowel meds:Imodi um 2 mg q6 hr prnreglan 10 mg q6 hr prnlomotil bid prnlactulo se 15 ml qd prnzofran 8 mg qid prncolace 100 mg bid prn Headache 18223856 R51.9 ??On B2 400 mg qd - will continue Hypokalemia 87854902 E87 .6 On KCL 20 meq qdMonitor BMP Health Concerns Section Related Observation LastModified by Organization Detai ls LastModified Time None Recorded Concern Status LastModified by Organization Details LastModified Time None Recorded Payers Encounter Date Sequence Insurance Name Policy Number Policy Crystal Covered Member ID Crystal Member ID Guarantor Name 04/30/2024 1 [place] [employer] Claire Seth [id number] Claire Seth 04/30/2024 2 [place] [facility] Seth [id number] Claire Seth Notes Date Note Type Note Provider Name and Address Organization Details Recorded Time 04/30/2024 text/html Claire is seen to day for initial intake. She is a 58 yo lady, admitted today to [facility] [place] continued care and rehab after an ER eval due to back pain. She presented to [facility] [place] with worsening back pain x 2 weeks after sustaining a fall at home. ER paperwork reviewed, appears work up unremarkable but would benefit from PT OT due to gross deconditioning. Upon exam, Claire is resting in bed, alert, forgetful at times but pleasant and cooperative. Offering minimal complaints at this time. Currently with a polo, states placed while in the hospital the first time (earlier in April), thinks it is still in place because she had a UTI. It currently hurts, and she would like to have it taken out. Currently not wearing O2, says she wears it off and on and will let us know if she needs it. HODGE: mod. fall risk PMH: chronic confusion, bipolar/depression, smoker, chronic back pain, colostomy, polysubstance abuse binge pattern, AF RVR, CHF, restrictive lung disease, COPD, adentulous, COVID, 2020, O2 dependent, pericardial effusion, HLD, HTN, PVD, PNA, adenoCa sigmoid colon s/p colectomy, hypernatrtemia, GI bleed, UTI, IVY, Left lower lung Ca s/ lobectomy, GERD, acute on chronic resp. failure, obesity, rotator cuff strain, RLS, fibromyalgia, renal failure, PTSD, CADMOLST: DNI DAVID GARRIDO NP [address] [facility], [address], [place], [address], [facility] 04/30/2024 13:45:18 OBGyn Episode No OBEpisode recorded.
== END 2024-06-13 14:47 | disposition home or self-care (01) ==
PROVIDERS: PCP Internal Medicine; Visit Provider Internal Medicine
DX: M54.42 Lumbago with sciatica, left side (principal); M54.9 Dorsalgia, unspecified; G89.29 Other chronic pain

== ENCOUNTER → 2024-06-13 13:52 | Outpatient (BNVA) | payer MEDICARE, MEDICAID, SELFPAY | PROVIDERS: PCP Internal Medicine; Visit Provider Internal Medicine | DX: M54.42 Lumbago with sciatica, left side (principal); M54.9 Dorsalgia, unspecified; G89.29 Other chronic pain | CPT/HCPCS: 96127; 99212 ==

== ENCOUNTER 2024-07-23 08:55 | Outpatient (AMB) | payer MEDICARE, MEDICAID, SELFPAY ==
--- NOTE | 2024-07-23 09:07 | MHC.PC.OV ---
Vital Signs 07/23/24 09:08 Height 5 ft 5 in Weight 186 lb BMI 30.9 BP 120/66 Blood Pressure Location Lt brachial Position Sitting Pulse 86 Pulse Source Pulse Oximeter Pulse Oximetry (%) 97 Oxygen Delivery Method Room Air Intake Visit Reasons: right eye cataract 08/05 and 08/19 dr eckert Twister Tender Required: No Accompanied by: Self / Same As Patient Allergies Penicillins Allergy (Mild, Verified 07/23/24 09:16) Rash venlafaxine [From Effexor] Allergy (Mild, Verified 07/23/24 09:16) Rash cyclobenzaprine [Cyclobenzaprine] Allergy (Unknown, Verified 07/23/24 09:16) Unknown topiramate [From Topamax] Allergy (Unknown, Verified 07/23/24 09:16) Unknown levofloxacin [From Levaquin] Adverse Reaction (Severe, Verified 07/23/24 09:16) Diarrhea Sulfa (Sulfonamide Antibiotics) Adverse Reaction (Severe, Verified 07/23/24 09:16) Diarrhea fentanyl [FENTANYL] Adverse Reaction (Intermediate, Verified 07/23/24 09:16) Hallucinations tramadol Adverse Reaction (Intermediate, Verified 07/23/24 09:16) Hallucinations Medication List - Last Reconciled 07/23/24 by Chelsea Armstrong MD acetaminophen ER (Tylenol Arthritis Pain) 1,300 mg (2 x 650 mg) PO Q12H PRN apixaban (Eliquis) 5 mg PO BID 90 days atorvastatin 80 mg PO BEDTIME blood pressure monitor As directed blood pressure test kit-large As directed clonazepam 1 mg PO BID 30 days cyanocobalamin (vitamin B-12) (Vitamin B-12) 1,000 mcg PO DAILY diltiazem HCl CD 240 mg PO QPM 30 days divalproex ER 1,000 mg PO BEDTIME divalproex ER 500 mg PO DAILY docusate sodium 100 mg PO BID PRN duloxetine 60 mg PO BEDTIME fenofibrate 160 mg PO BEDTIME ferrous sulfate (FeroSul) 325 mg PO BID fluticasone furoate-vilanterol 100-25 mcg/dose (Breo Ellipta) 1 ea inhalation DAILY [heavy duty adjustable hand rail As directed] hydralazine 50 mg PO TID hydrocortisone 1% (Cortisone (hydrocortisone)) 1 appl topical TID PRN 2 weeks loperamide (Imodium A-D) 2 mg PO Q6H PRN metaxalone 800 mg PO TID PRN metoclopramide HCl 10 mg PO Q6H PRN metoprolol succinate ER 50 mg PO DAILY nystatin 1 appl See Protocol topical BID omeprazole 20 mg PO BID@0630,1630 90 days potassium chloride ER (K-Tab) 20 mEq PO DAILY riboflavin (vitamin B2) 400 mg PO DAILY 30 days [Tub ledge vertical grab bar/ not suction bar. As directed] umeclidinium 62.5 mcg/actuation (Incruse Ellipta) 1 inh inhalation DAILY walker (Ultra-Light Rollator misc) As directed Tobacco use date assessed: 06/13/24 Dental Screening Dental Screen Date: 06/13/24 HPI HPI Comments History of Present Illness Details The patient is a 59-year-old female presenting with a preop evaluation primarily for right eye cataract surgery scheduled on August 05 and left eye on August 19. She expresses difficulty in seeing clearly, impacting her quality of life and preventing her from enjoying activities such as watching television. She has a complex medical history that includes atrial fibrillation managed with Eliquis, hyperlipidemia treated with atorvastatin, and COPD managed with Breo. She is under ongoing care for congestive heart failure and routinely follows up with cardiology. Recent weight loss of a pound per week over the last three weeks has been noted, which is positive in managing her cardiac condition. She has a history of lung cancer for which she underwent a left lower lobectomy in 2020 and completed chemotherapy. She is currently being monitored by hematology oncology for both a history of colon and lung cancer, with concerns for recurrent cancer as she reports new tumors near her bladder and in the groin area. Furthermore, she has experienced moderate depression with a PHQ-9 score of 16, but denies suicidal thoughts. A family history of COPD, hypertension, uterine cancer in her mother, and Parkinson's disease and hypertension in her father is mentioned. She also reports GERD, worsened when lying down, and manages it with omeprazole. Her surgical history includes a hysterectomy due to endometriosis, a cardiac catheterization in 2010, gallbladder and appendix removal, and two back surgeries involving spinal fusion. Walks with a cane for gait stability due to chronic back pain. She also has peripheral vascular disease. Has 5-7 Mets of ADLs. EKG and labs pending for medical clearance. Patient complains of left shoulder pain that started few weeks ago with no previous trauma. Has limited elevation. Also complains of epigastric pain that happens at rest and has history of GERD. X-ray of left shoulder will be order as well as upper GI series. [facility] Medical History (Updated 07/23/24 @ 10:11 by Chelsea Armstrong MD) Acute on chronic diastolic CHF (congestive heart failure) CHF exacerbation Respiratory failure with hypoxia and hypercapnia Chronic confusion Depression Smoker Chronic back pain Colostomy in place (~2020) Personal history of nicotine dependence Polysubstance (including opioids) dependence, binge pattern Atrial fibrillation with rapid ventricular response Congestive heart failure Restrictive lung disease COPD (chronic obstructive pulmonary disease) No natural teeth COVID-19 vaccine series completed History of COVID-19 (~04/2020) Oxygen dependent Pericardial effusion Other and unspecified hyperlipidemia Essential hypertension Peripheral vascular disease Preoperative cardiovascular examination Bilateral pneumonia Adenocarcinoma of sigmoid colon (~2020) Hypernatremia GI bleed UTI (urinary tract infection) Pleural effusion, left Colon cancer (~2020) IVY (obstructive sleep apnea) Cancer of lower lobe of left lung (~2020) GERD (gastroesophageal reflux disease) Acute and chronic respiratory failure Lung cancer Obesity Hypoventilation associated with obesity Obesity hypoventilation syndrome Respiratory failure with hypoxia and hypercapnia Rotator cuff strain Hypoxia Pneumonia Restless legs syndrome (RLS) Sleep disorder Bipolar disorder (~2009) Back pain with history of spinal surgery Renal failure Fibromyalgia Depression High cholesterol PTSD (post-traumatic stress disorder) CAD (coronary artery disease) HTN (hypertension) Surgical History History of partial colectomy (~12/2020) History of cardiac cath (~2010) History of hysterectomy (~1990) History of cholecystectomy History of appendectomy (~1982) History of colonoscopy (~08/2020) History of lobectomy of lung (~08/2020) History of esophagogastroduodenoscopy (EGD) History of bunionectomy (~1977) History of back surgery Family History Maternal Aunt Breast cancer Stroke COPD (chronic obstructive pulmonary disease) Maternal Aunt Breast cancer COPD (chronic obstructive pulmonary disease) Mother Uterine cancer COPD (chronic obstructive pulmonary disease) HTN (hypertension) Heart disease Mental health disorder Maternal Uncle Stroke Paternal Grandmother Heart attack Parkinsons disease Sister Diabetes IBS (irritable bowel syndrome) Son HTN (hypertension) Substance use disorder Daughter HTN (hypertension) Father HTN (hypertension) Parkinsons disease Brother Heart disease Family/Other Mental health disorder Social History Household Members: Spouse Housing: Apartment Are you a primary adult care manager to a significant other at home: No Do you presently have visiting nurse or other home services: No Alcohol intake: never Comment: sitter at bedside Patient Tobacco Use Status: Former Tobacco user Tobacco use type: Cigarette Cigarettes Per Day: 4 Years Smoked: 40 e-Cigarette/Vaping Use: Former Use Second Hand Smoke Exposure: No Advance Directives Date on File: 10/05/22 service: No Current occupational status: unemployed and disabled Cognitive needs: Yes (walker ) Hearing needs: No Vision needs: No Questionnaire PHQ-9 Over the last 2 weeks, how often have you been bothered by any of the following problems? 1. Little interest or pleasure in doing things: more than half the days 2. Feeling down, depressed, or hopeless: more than half the days 3. Trouble falling or staying asleep, or sleeping too much: nearly every day 4. Feeling tired or having little energy: nearly every day 5. Poor appetite or overeating: more than half the days 6. Feeling bad about yourself - or that you are a failure or have let yourself or your family down: not at all 7. Trouble concentrating on things, such as reading the newspaper or watching television: more than half the days 8. Moving or speaking so slowly that other people could have noticed. Or the opposite - being so fidgety or restless that you have been moving around a lot more than usual: more than half the days 9. Thoughts that you would be better off or of hurting yourself in some way: not at all Total score: 16 Depression Screening Interpretation: Positive (no suicidal thoughts) Depression Screening Follow-up: Existing condition and Follow-up Visit Requested Depression Screening Done: Yes 75001 - PHQ-9 Billing: Yes Source: Developed by Drs. Parrish Hernandez, Claire B.W. Maxwell Washington and colleagues, with an educational skip from [employer]. Thrive Questionnaire Date Thrive assessed: 07/23/24 I am a: Patient What is your living situation today?: I have a steady place to live Within the past 12 months, did the food you bought not last and you didn't have the money to get more?: Never true Within the past 12 months, did you worry whether your food would run out before you got money to buy more?: Never true Do you have trouble paying for medicines?: No Do you have trouble getting transportation to medical appointments?: No Do you have trouble paying your heating and electricity bill?: No Do you have trouble taking care of your child, family member or friend?: No Do you have trouble with day-to-day activities such as bathing, preparing meals, shopping, managing finances, etc.?: No Are you currently unemployed and looking for a job?: No Are you interested in more education?: No Please select the resources that you would like help with: None Currently or been in a relationship where the following occur: No concerns reported THRIVE Score: 0 AUDIT C Alcohol Use Questionnaire (AUDIT-C) 1. How often do you have a drink containing alcohol?: Never Total Score: 0 Score Reviewed/Action Taken: No MARIA INES-7 AMB Questionnaire MARIA INES-7 Date MARIA INES - 7 assessed: 07/23/24 Feeling nervous, anxious, or on edge: 3 = Nearly every day Not being able to stop or control worryin = Several days Worrying too much about different things: 2 = More than half the days Trouble relaxin = Nearly every day Being so restless that it is hard to sit still: 2 = More than half the days Becoming easily annoyed or irritable: 3 = Nearly every day Feeling afraid as if something awful might happen: 2 = More than half the days Total MARIA INES-7 score (0-4 normal; 5-9 mild; 10-14 moderate; 15-21 severe): 16 Source: Developed by Drs. Parrish Hernandez, Maxwell Lara and colleagues, with an educational skip from [employer]. MARIA INES-7 Assessment Billing MARIA INES-7 Assessment Tool: MARIA INES-7 Assessment 99503 Review of Systems Const All systems reviewed & are unremarkable except as noted in HPI and below Card Denies chest pain with activity, Denies edema, Denies irregular heart rhythm, Denies claudication, Denies dyspnea, Denies dyspnea on exertion, Denies orthopnea, Denies paroxysmal nocturnal dyspnea and Denies slow heart rate Resp Denies cough, Denies dyspnea and Denies dyspnea on exertion GI Reports abdominal pain, Denies change in bowel habits, Denies excessive flatus, Denies nausea and Denies vomiting Musc Reports arthralgias Psych Reports anxiety and Reports depression Physical exam (Primary Care) Vital Signs: Last Vital Signs Pulse 86 07/23/24 09:08 BP 120/66 07/23/24 09:08 Pulse Ox 97 07/23/24 09:08 Oxygen Delivery Method Room Air 07/23/24 09:08 BMI result Body Mass Index 30.9 BMI Assessment/Plan discussion: High BMI High, discussed plan: lifestyle, weight reduction, dietary and physical activity Tobacco/Smoking Status: Tobacco use Status Tobacco use date assessed 06/13/24 07/23/24 09:15 Patient Tobacco Use Status Former Tobacco user 07/23/24 09:15 Tobacco use type Cigarette 07/23/24 09:15 e-Cigarette/Vaping Use Former Use 07/23/24 09:15 PHQ-9: PHQ-9 Score PHQ-9: Total score 16 07/23/24 09:17 Depression Screening Interpretation: Positive (no suicidal thoughts) Depression Screening Follow-up: Existing condition and Follow-up Visit Requested Thrive Assessment: Date of Thrive Assessment Date Thrive assessed 07/23/24 07/23/24 09:15 Currently or been in a relationship where the following occur: No concerns reported Const Limitations: ambulation with cane Resp Effort & Inspection: normal respiratory effort Auscultation: clear to auscultation bilaterally Cardio Jugular venous distension: no JVD Rate: regular rate Rhythm: regular rhythm Heart sounds: S1 normal heart sound present and S2 normal heart sound present Neuro General: no focal motor deficits Extrem Left upper extremity: shoulder/upper arm Details: tenderness and abnormal ROM Details: pain with active ROM Details: in ABduction and in extension Psych Appearance: grossly normal Coding Level of Care Code Est Pt Level 4 (03410) Complex EM visit Add On G2211 Diagnoses Pre-op evaluation Z01.818 Epigastric abdominal pain R10.13 Acute pain of left shoulder M25.512 Chronicity: acute Moderate major depression F32.1 PAF (paroxysmal atrial fibrillation) I48.0 Cancer of lower lobe of left lung C34.32 Adenocarcinoma of sigmoid colon C18.7 Congestive heart failure I50.9 Chronic obstructive pulmonary disease with acute exacerbation J44.1 COPD type: COPD with acute exacerbation Peripheral vascular disease I73.9 Additional Codes MARIA INES-7 Assessment Billing - MARIA INES-7 Assessment Tool: MARIA INES-7 Assessment 14878 ([id number]) PHQ-9 - 45569 - PHQ-9 Billing: Yes ([id number]) Time Spent (min) 26 Assessment & Plan Assessment & Plan (1) Pre-op evaluation: Code(s): Z01.818 - Encounter for other preprocedural examination Category: Medical (2) Epigastric abdominal pain: Code(s): R10.13 - Epigastric pain Category: Medical (3) Left shoulder pain: Code(s): M25.512 - Pain in left shoulder Category: Medical Qualifiers: Chronicity: acute Qualified Code(s): M25.512 - Pain in left shoulder (4) Moderate major depression: Code(s): F32.1 - Major depressive disorder, single episode, moderate Category: Medical (5) PAF (paroxysmal atrial fibrillation): Onset Date: ~2020 Code(s): I48.0 - Paroxysmal atrial fibrillation Category: Medical (6) Cancer of lower lobe of left lung: Onset Date: ~2020 Comment: (Adenocarcinoma, pT1c, pN0, MX - s/p LLL lobectomy 09/01/20) Current CT scan does show presence of a few small pulmonary nodules in the left lower lobe area . Code(s): C34.32 - Malignant neoplasm of lower lobe, left bronchus or lung Category: Medical (7) Adenocarcinoma of sigmoid colon: Onset Date: ~2020 Comment: s/p resection , and has permanant Colostomy Code(s): C18.7 - Malignant neoplasm of sigmoid colon Category: Medical (8) Congestive heart failure: Code(s): I50.9 - Heart failure, unspecified Category: Medical (9) COPD (chronic obstructive pulmonary disease): Comment: APPOINTMENT FOR 6 MINUTES WALK TEST Code(s): J44.9 - Chronic obstructive pulmonary disease, unspecified Category: Medical Qualifiers: COPD type: COPD with acute exacerbation Qualified Code(s): J44.1 - Chronic obstructive pulmonary disease with (acute) exacerbation (10) Peripheral vascular disease: Code(s): I73.9 - Peripheral vascular disease, unspecified Category: Medical Plan - EKG and fasting labs are necessary for surgical clearance for planned cataract surgery. - Monitor for weight gain related to congestive heart failure; notify if more than three pounds in a few days. - Re-evaluation by hematology oncology regarding cancer recurrence; suggests returning to chemotherapy. - Refer for an upper GI series to assess chest pain origin related to potential GERD. - X-ray of shoulder due to reported pain and limited mobility. Patient was informed and verbally consented to the use of an ambient scribe for clinic note documentation during this visit. I discussed with the patient the plan for further evaluation and management of her multiple chronic conditions and surgical plans, including ensuring timely pre-operative clearance for her ophthalmologic procedures. We reviewed the importance of monitoring her congestive heart failure through weight tracking and signs of exacerbation. The potential origins of her chest pain, the possible influence of GERD, and the need for further diagnostic assessment were addressed. The necessity for ongoing oncology follow-up and potential chemotherapy was emphasized. The patient is informed about the procedural risks involved and consents to proposed diagnostic tests, understanding the importance of compliance with medication regimens and lifestyle adjustments. Orders: Orders ECG 12 lead EKG Today Z01.818 - Encounter for other preprocedural examination Comprehensive [place]. Panel Fast Today Z01.818 - Encounter for other preprocedural examination Lipid Panel Today E78.5 - Hyperlipidemia, unspecified, I25.10 - Atherosclerotic heart disease of seminole coronary artery without angina pectoris XR shoulder LT min 2V Today M25.512 - Pain in left shoulder Complete Blood Count Auto Diff Today D64.9 - Anemia, unspecified IRON PROFILE Today D64.9 - Anemia, unspecified NT-proBNP Today I50.9 - Heart failure, unspecified FL upper GI series Today R10.13 - Epigastric pain Patient Instructions: - Schedule EKG and fasting labs before the scheduled cataract surgery. - Monitor weight regularly; contact us if you gain more than three pounds quickly. - Follow oncologist's recommendations regarding potential chemotherapy. - Take omeprazole as prescribed and manage GERD with dietary changes, particularly avoiding late meals and elevating the head while sleeping. - Attend scheduled diagnostic imaging appointments. - Continue using cane for stability and avoid activities beyond current comfort levels.
[2024-07-23 09:08] VITALS: BP 120/66; PULSE 86; O2SAT 97; BMI 30.9
--- OUTSIDE RECORDS SUMMARY | 2024-07-23 09:26 | XMS_ITS | Encounter Summary ---
Author Organization [facility] Address [address] [place] [address] Care Team Providers Care Methods Time Analyst Name Role Phone Cassandra Oconnor MD Primary Care Provider [phone] Encounter Details Date Type Department Care Team (Late st Contact Info) Description 05/16/2024 Lab Requisition [facility] - Main Lab [address] [facility] [place] [address] Ray Lee MD [address] [place] [phone] Other rn document improvement specialist (current) drug therapy Social History Tobacco Use Types Packs/Day Years Used Date Smoking Tobacco: Former Cigarettes Alcohol Use Standard Drinks/Week Comments No 0 (1 standard drink = 0.6 oz pur e alcohol) Comments Unknown Sex and Gender Information Value Date Recorded Sex Assigned at Not on file Legal Sex Female 4:08 PM EST Gender Identity Not on file Sexual Orientation Not on file documented as of this encounter Plan of Treatment Not on file documented as of this encounter Procedures Procedure Name Priority Date/Time Associated Diagnosis Comments COMPLETE BLOOD COUNT Routine 05/17/2024 6:14 AM EST Other prison (current) drug therapy BASIC METABOLIC PANEL Routine 05/17/2024 6:14 AM EST Other rn document improvement specialist (current) drug therapy documented in this encounter Results * (ABNORMAL) Basic metabolic panel (05/17/2024 6:14 AM EST) Sodium 142 133 - 145 mmol/L LAB CHEMISTRY METHOD 05/17/2024 11:20 AM EST [facility] Potassium 4.6 3.5 - 5.5 mmol/L LAB CHEMISTRY METHOD 05/17/2024 11:20 AM [facility] Chloride 104 96 - 110 mmol/L LAB CHEMISTRY METHOD 05/17/2024 11:20 AM [facility] CO2 26 21 - 32 mmol/L LAB CHEMISTRY METHOD 05/17/2024 11:20 AM [facility] Anion Gap 12(H) 3 - 11 LAB CHEMISTRY METHOD 05/17/2024 11:20 AM [facility] Glucose 102(H) 70 - 100 mg/dL LAB CHEMISTRY METHOD 05/17/2024 11:20 AM [facility] BUN 17 5 - 25 mg/dL LAB CHEMISTRY METHOD 05/17/2024 11:20 AM [facility] Creatinine 0.87 0.50 - 1.10 mg/dL LAB CHEMISTRY METHOD 05/17/2024 11:20 AM [facility] eGFR 76 >=60 mL/min/1. 73m2 LAB CHEMISTRY METHOD 05/17/2024 11:20 AM [facility] Comment:Calculation based on the??Chronic Kidney Disease Epidemiology Collaboration (CKD-EPI) equation refit??without adjustment for race. BUN/Creatinine Ratio 19.5 LAB CHEMISTRY METHOD 05/17/2024 11:20 AM [facility] Calcium 9.1 8.5 - 10.5 mg/dL LAB CHEMISTRY METHOD 05/17/2024 11:20 AM [facility] Blood Venous blood specimen / Unknown Venipuncture / Unknown 05/17/2024 6:14 AM EST 05/17/2024 10:16 AM EST us Ray Lee MD LAB BLOOD ORDERABLES Final Resul t [facility] [address] [place] [address], [place] [phone] * (ABNORMAL) Complete blood count (05/17/2024 6:14 AM EST) [facility] WBC 9.7 4.8 - 10.8 K/mcL LAB HEMETOLOGY METHOD 05/17/2024 10:47 AM [facility] RBC 3.50(L) 3.80 - 4.80 M/mcL LAB HEMETOLOGY METHOD 05/17/2024 10:47 AM [facility] Hemoglobin 11.0(L) 11.5 - 16.0 g/dL LAB HEMETOLOGY METHOD 05/17/2024 10:47 AM [facility] Hematocrit 36.4 35.0 - 47.0 % LAB HEMETOLOGY METHOD 05/17/2024 10:47 AM [facility] MCV 103.7(H) 79.0 - 98.0 FL LAB HEMETOLOGY METHOD 05/17/2024 10:47 AM [facility] MCH 31.3 27.0 - 32.0 pcg LAB HEMETOLOGY METHOD 05/17/2024 10:47 AM [facility] MCHC 30.2(L) 32.0 - 37.0 g/dL LAB HEMETOLOGY METHOD 05/17/2024 10:47 AM [facility] RDW 17.7(H) 11.0 - 15.0 % LAB HEMETOLOGY METHOD 05/17/2024 10:47 AM [facility] Platelets 303 130 - 400 K/mcL LAB HEMETOLOGY METHOD 05/17/2024 10:47 AM [facility] MPV 11.1(H) 7.0 - 11.0 FL LAB HEMETOLOGY METHOD 05/17/2024 10:47 AM [facility] NRBC 0.0 <1.0 % LAB HEMETOLOGY METHOD 05/17/2024 10:47 AM [facility] NRBC Absolute 0.00 <0.10 K/mcL LAB HEMETOLOGY METHOD 05/17/2024 10:47 AM EST [facility] Blood Venous blood specimen / Unknown Venipuncture / Unknown 05/17/2024 6:14 AM EST 05/17/2024 10:14 AM EST us Ray Lee MD LAB BLOOD ORDERABLES Final Resul t [facility] ([facility] [address] [place] [address], documented in this encounter Visit Diagnoses Diagnosis Other rn document improvement specialist (current) drug therapy documented in this encounter Care Teams Methods Time Analyst Relationship Specialty Start Date End Date Cassandra Oconnor MD [address] [place] [address] PCP - General 10/26/10 documented as of this encounter
--- OUTSIDE RECORDS SUMMARY | 2024-07-23 09:26 | XMS_ITS | Encounter Summary ---
Author Organization [facility] Address [address] [place] [phone] Care Team Providers Care Recovery Operator Name Role Phone Cassandra Oconnor MD Primary Care Provider [phone] Encounter Details Date Type Department Care Team (Late st Contact Info) Description 05/23/2024 Lab Requisition [facility] - Main Lab [address] [facility] [place] [address] Ray Lee MD [address] [place] [phone] Other superintendent marine oil terminal (current) drug therapy Social History Tobacco Use [...] on file documented as of this encounter Visit Diagnoses Diagnosis Other superintendent marine oil terminal (current) drug therapy documented in this encounter Care Teams Recovery Operator Relationship Specialty Start Date End Date Cassandra Oconnor MD [address], [place] PCP - General 10/26/10 documented as of this encounter
--- OUTSIDE RECORDS SUMMARY | 2024-07-23 09:26 | XMS_ITS | Encounter Summary ---
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 Social History Tobacco Use [...] Associated Diagnosis Comments COMPLETE BLOOD COUNT Routine 05/10/2024 8:37 AM EST Other custodial (current) drug therapy BASIC METABOLIC PANEL Routine 05/10/2024 8:37 AM EST 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 documented in this encounter Results * Basic metabolic panel (05/10/2024 8:37 AM EST) Sodium 140 133 - 145 mmol/L LAB CHEMISTRY METHOD 05/10/2024 11:21 AM EST [facility] Potassium 4.7 3.5 - 5.5 mmol/L LAB CHEMISTRY METHOD 05/10/2024 11:21 AM [facility] Comment:Hemolysis present Chloride 103 96 - 110 mmol/L LAB CHEMISTRY METHOD 05/10/2024 11:21 AM [facility] CO2 26 21 - 32 mmol/L LAB CHEMISTRY METHOD 05/10/2024 11:21 AM [facility] Anion Gap 11 3 - 11 LAB CHEMISTRY METHOD 05/10/2024 11:21 AM [facility] Glucose 95 70 - 100 mg/dL LAB CHEMISTRY METHOD 05/10/2024 11:21 AM [facility] BUN 16 5 - 25 mg/dL LAB CHEMISTRY METHOD 05/10/2024 11:21 AM [facility] Creatinine 0.72 0.50 - 1.10 mg/dL LAB CHEMISTRY METHOD 05/10/2024 11:21 AM [facility] eGFR 96 >=60 mL/min/1. 73m2 LAB CHEMISTRY METHOD 05/10/2024 11:21 AM [facility] Comment:Calculation based on the??Chronic Kidney Disease Epidemiology Collaboration (CKD-EPI) equation refit??without adjustment for race. BUN/Creatinine Ratio 22.2 LAB CHEMISTRY METHOD 05/10/2024 11:21 AM [facility] Calcium 9.2 8.5 - 10.5 mg/dL LAB CHEMISTRY METHOD 05/10/2024 11:21 AM [facility] Blood Venous blood specimen / Unknown Venipuncture / Unknown 05/10/2024 8:37 AM EST 05/10/2024 10:31 AM EST us Ray Lee MD LAB BLOOD ORDERABLES Final Resul t [facility] [address] [place] [address], [place] [phone] * (ABNORMAL) Complete blood count (05/10/2024 8:37 AM EST) [facility] WBC 9.8 4.8 - 10.8 K/mcL LAB HEMETOLOGY METHOD 05/10/2024 10:50 AM [facility] RBC 4.00 3.80 - 4.80 M/mcL LAB HEMETOLOGY METHOD 05/10/2024 10:50 AM [facility] Hemoglobin 12.5 11.5 - 16.0 g/dL LAB HEMETOLOGY METHOD 05/10/2024 10:50 AM [facility] Hematocrit 42.1 35.0 - 47.0 % LAB HEMETOLOGY METHOD 05/10/2024 10:50 AM [facility] MCV 105.5(H) 79.0 - 98.0 FL LAB HEMETOLOGY METHOD 05/10/2024 10:50 AM [facility] MCH 31.3 27.0 - 32.0 pcg LAB HEMETOLOGY METHOD 05/10/2024 10:50 AM [facility] MCHC 29.7(L) 32.0 - 37.0 g/dL LAB HEMETOLOGY METHOD 05/10/2024 10:50 AM [facility] RDW 18.6(H) 11.0 - 15.0 % LAB HEMETOLOGY METHOD 05/10/2024 10:50 AM [facility] Platelets 390 130 - 400 K/mcL LAB HEMETOLOGY METHOD 05/10/2024 10:50 AM [facility] MPV 11.2(H) 7.0 - 11.0 FL LAB HEMETOLOGY METHOD 05/10/2024 10:50 AM [facility] NRBC 0.0 <1.0 % LAB HEMETOLOGY METHOD 05/10/2024 10:50 AM [facility] NRBC Absolute 0.00 <0.10 K/mcL LAB HEMETOLOGY METHOD 05/10/2024 10:50 AM EST [facility] Blood Venous blood specimen / Unknown Venipuncture / Unknown 05/10/2024 8:37 AM EST 05/10/2024 10:31 AM EST us Ray Lee MD LAB BLOOD ORDERABLES Final Resul t [facility] [address] [place] [address], [place] [phone] documented in this encounter Visit Diagnoses Diagnosis 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
--- OUTSIDE RECORDS SUMMARY | 2024-07-23 09:26 | XMS_ITS | Continuity of Care Document ---
Author Organization [address] [place] [address]- Care Team Providers Care Refrigeration Engineering Teacher Name Role Phone Denny Armstrong MD, Amanda Primary Care Physician [phone] [id number] Date(s): 03/16/24 - 07/14/[address] [place] [address]- Attending Physician: Barrie HERMAN, Fer Levin Referring Physician: Eboni STUART, Ward Larsen Encounter Type: Pre Office Visit Allergies, Adverse Reactions, Alerts Substance Criticality Severity Reaction Reaction Severity Status Effexor unsure Active fentaNYL hallucinations Act jake levoFLOXacin severe diarrhea A ctive ibuprofen nausea Active penicillin 1 body rash Activ e sulfADIAZINE severe diarrhea A ctive cyclobenzaprine nausea Acti ve Topamax sleep walking Acti ve 1Tolerated zosyn 07/2022 Immunizations Given and Recorded Vaccine Date Status Refusal Reason SARS-CoV-2 (COVID-19) mRNA-1273 vaccine 09/24/20 R ecorded SARS-CoV-2 (COVID-19) mRNA-1273 vaccine 08/12/20 R ecorded influenza virus vaccine, inactivated 03/22/19 Josue rded influenza virus vaccine, inactivated 03/19/18 Josue rded influenza virus vaccine, inactivated 02/27/17 Josue rded influenza virus vaccine, inactivated 02/19/16 Josue rded influenza virus vaccine, inactivated 03/20/15 Josue rded influenza virus vaccine, inactivated 04/17/14 Josue rded influenza virus vaccine, inactivated 02/10/11 Josue rded influenza virus vaccine, inactivated 06/17/09 Josue rded influenza virus vaccine, inactivated 03/14/08 Josue rded influenza virus vaccine, inactivated 04/13/07 Josue rded tetanus/diphtheria/pertussis, acel(Tdap) 08/05/15 Recorded pneumococcal 23-valent vaccine 04/25/10 Recorded pneumococcal 23-valent vaccine 08/05/09 Given influ virus vac, H1N1, inactive(oldterm) 06/17/09 Recorded Medications 100ml normal saline for irrigation 100ml normal saline for irrigation, See Instructions, # 5 each, Refills 3, Tot. Refills 3, Maintenance, use as needed fpor wound care dx = abdoinal wound, 12/14/21 1:40:00 PM EDT, Supply, 163, cm, 12/13/21 16:42:00 EDT, Height, 90.3, kg, 09/02/21 12:26:00 EDT, Dry Weight Start Date: 12/14/21 Status: Ordered Quantity: 5.0 Unit: each Repeat number: 4 acetaminophen 325 mg oral tablet 975 mg, 3, tablet, By Mouth, Every 6 hours, Refills 0, Maintenance, 08/03/22 12:49:00 PM EST, Partialfill upon patient request if the prescription is for a schedule II opioid drug. Start Date: 08/03/22 Status: Ordered Repeat number: 1 Adhesive remover wipes Adhesive remover wipes, See Instructions, # 50 each, Refills 11, Tot. Refills 11, Maintenance, use as needed for ostomy maintaince. Dx colostomy Z93.3, 03/28/24 9:25:00 AM EDT, Supply Start Date: 03/28/24 Status: Ordered Quantity: 50.0 Unit: each Repeat number: 12 amitriptyline 25 mg oral tablet 25 mg, 1, tablet, By Mouth, Daily at bedtime, Refills 0, Maintenance, 05/18/20 9:12:00 AM EST, Partial fill upon patient request if the prescription is for a schedule II opioid drug. Start Date: 05/18/20 Status: Ordered Repeat number: 1 atorvastatin 20 mg oral tablet 1 tablet = 20 mg, By Mouth, Daily, # 90 tablet, 0 Refills, Maintenance, 12/10/20 4:34:00 PM EDT, Tablet, Partial fill upon patient request if the prescription is for a schedule II opioid drug. Start Date: 12/10/20 Status: Ordered Quantity: 90.0 Unit: tablet Repeat number: 1 bisacodyl 5 mg oral delayed release tablet 1 tablet = 5 mg, By Mouth, Daily, PRN as needed for constipation, Maintenance, 07/16/22 4:24:00 PM EST, CR Tablet, Partial fill upon patient request if the prescription is for a schedule II opioid drug. Start Date: 07/16/22 Status: Ordered Repeat number: 1 Brava barrier rings ([id number]) Brava barrier rings ([id number]), See Instructions, # 20 each, Refills 11, Tot. Refills 11, Maintenance, use as needed for ostomy maintaince. Dx colostomy Z93.3, 03/28/24 9:25:00 AM EDT, Supply Start Date: 03/28/24 Status: Ordered Quantity: 20.0 Unit: each Repeat number: 12 Breo Ellipta 100 mcg-25 mcg/inh inhalation powder 1 puffs, Inhalation, Daily, # 30 each, 0 Refills, Maintenance, 12/10/20 4:26:00 PM EDT, Powder, Partial fill upon patient request if the prescription is for a schedule II opioid drug. Start Date: 12/10/20 Status: Ordered Quantity: 30.0 Unit: each Repeat number: 1 clonazePAM 0.5 mg oral tablet 1 tablet = 0.5 mg, By Mouth, 2 times a day, PRN Anxiety, 0 Refills, Maintenance, 03/08/21 3:58:00 PMEDT, Tablet, Partial fill upon patient request if the prescription is for a schedule II opioid drug. Start Date: 03/08/21 Status: Ordered Repeat number: 1 Colace sodium 100 mg oral capsule 100 mg, 1, capsule, By Mouth, 2 times a day, PRN, # 60 capsule, Refills 3, Tot. Refills 3, Maintenance, for constipation, 09/02/21 2:54:00 PM EDT, Route to Pharmacy Electronically, [facility], Partial fill upon patient request if the prescription is for a schedule II opioid drug., 163, cm, 09/02/21 12:26:00 EDT, Height, 90.3, kg, 09/02/21 12:26:00 EDT, Dry Weight Start Date: 09/02/21 Status: Ordered Quantity: 60.0 Unit: capsule Repeat number: 4 Coloplast Sensura #98898 Coloplast Sensura #06132, See Instructions, # 20 each, Refills 11, Tot. Refills 11, Maintenance, use as needed for ostomy care dx = colostomy, 04/16/21 2:49:00 PM EST, Supply, 162.56, cm, 03/15/21 11:25:00 EDT, Height, 81.1, kg, 03/15/21 11:25:00 EDT, Dry Weight Start Date: 04/16/21 Status: Ordered Quantity: 20.0 Unit: each Repeat number: 12 Depakote ER 500 mg oral tablet, extended release 2 tablet = 1,000 mg, By Mouth, Daily at bedtime, # 60 tablet, 0 Refills, Maintenance, 08/06/09 10:00:00 PM EST, ER Tablet Start Date: 08/06/09 Stop Date: 09/11/09 Status: Ordered Quantity: 60.0 Unit: tablet Repeat number: 1 Depakote ER 500 mg oral tablet, extended release 1 tablet = 500 mg, By Mouth, Daily in AM, # 30 tablet, 0 Refills, Maintenance, 12/01/16 2:17:24 PM EDT, ER Tablet Start Date: 12/01/16 Status: Ordered Quantity: 30.0 Unit: tablet Repeat number: 1 DilTIAZem (Eqv-Cardizem CD) 240 mg/24 hours oral capsule, extended release 1 capsule = 240 mg, By Mouth, Daily at supper Start Date: 12/10/20 Status: Ordered Repeat number: 1 duloxetine 60 mg oral enteric coated capsule 1 capsule = 60 mg, By Mouth, Daily, Maintenance, 07/16/22 4:10:00 PM EST, EC Capsule, Partial fill upon patient request if the prescription is for a schedule II opioid drug. Start Date: 07/16/22 Status: Ordered Repeat number: 1 miracle rings miracle rings, See Instructions, # 20 each, Refills 11, Tot. Refills 11, Maintenance, use as needed for ostomy maintenance Dx colostomy Z93.3, 10/13/21 2:30:00 PM EDT, Compound Start Date: 10/13/21 Status: Ordered Quantity: 20.0 Unit: each Repeat number: 12 Eliquis 5 mg oral tablet 1 tablet = 5 mg, By Mouth, 2 times a day Start Date: 12/23/20 Status: Ordered Repeat number: 1 fenofibrate 48 mg oral tablet 1 capsule, By Mouth, Daily, Maintenance, 07/16/22 4:18:00 PM EST, Tablet, Partial fill upon patient request if the prescription is for a schedule II opioid drug. Start Date: 07/16/22 Status: Ordered Repeat number: 1 FeroSul 325 mg oral tablet 1 tablet = 325 mg, By Mouth, 2 times a day Start Date: 12/10/20 Status: Ordered Repeat number: 1 flat cut to fit bags flat cut to fit bags, See Instructions, # 20 each, Refills 11, Tot. Refills 11, Maintenance, use asneeded for ostomy care Dx. colostomy Z93.3, 10/13/21 2:31:00 PM EDT, Compound Start Date: 10/13/21 Status: Ordered Quantity: 20.0 Unit: each Repeat number: 12 hydrALAZINE 50 mg oral tablet 1 tablet = 50 mg, By Mouth, 3 times a day, # 90 tablet, 0 Refills, Maintenance, 12/10/20 4:26:00 PM EDT, Tablet, Partial fill upon patient request if the prescription is for a schedule II opioid drug. Start Date: 12/10/20 Status: Ordered Quantity: 90.0 Unit: tablet Repeat number: 1 Incruse Ellipta 62.5 mcg/inh inhalation powder 1 each, Inhalation, Every 24 hours, doses should be taken at least 24 hours apart, # 30 each, 0 Refills, Maintenance, 12/10/20 4:26:00 PM EDT, Powder, Partial fill upon patient request if the prescription is for a schedule II opioid drug. Start Date: 12/10/20 Status: Ordered Quantity: 30.0 Unit: each Repeat number: 1 ium nitrile gloves #[id number] ium nitrile gloves #[id number], See Instructions, # 100 each, Refills 6, Tot. Refills 6, Maintenance,use as needed for ostomy and wound care dx = colostomy / abdominal wound, 12/14/21 1:41:00 PM EDT, Supply, 163, cm, 12/13/21 16:42:00 EDT, Height, 90.3, kg, 09/02/21 12:26:00 EDT, Dry Weight Start Date: 12/14/21 Status: Ordered Quantity: 100.0 Unit: each Repeat number: 7 loperamide 2 mg oral tablet 2 tablet = 4 mg, By Mouth, 4 times a day, take 1/2 hour before meals and at bed time, # 240 tablet,12 Refills, Maintenance, 02/26/24 1:41:00 PM EDT, [id number], Partial fill upon patient request if the prescription is for a schedule II opioid drug., 163, cm, 03/08/23 15:48:00 EDT, Height, 86.7, kg, 09/26/22 10:35:00 EDT, Dry Weight Start Date: 02/26/24 Status: Ordered Quantity: 240.0 Unit: tablet Repeat number: 13 magnesium oxide 400 mg oral tablet 1 tablet = 400 mg, By Mouth, Daily, Maintenance, 07/16/22 4:19:00 PM EST, Tablet, Partial fill upon patient request if the prescription is for a schedule II opioid drug. Start Date: 07/16/22 Status: Ordered Repeat number: 1 Metoprolol Succinate ER 50 mg oral tablet, extended release 1 tablet = 50 mg, By Mouth, Daily, Maintenance, 07/16/22 4:20:00 PM EST, ER Tablet, Partial fill upon patient request if the prescription is for a schedule II opioid drug. Start Date: 07/16/22 Status: Ordered Repeat number: 1 no sting skin prep spray no sting skin prep spray, See Instructions, # 1 each, Refills 11, Tot. Refills 11, Maintenance, useas needed for ostomy care. Dx colostomy Z 93.3, 10/13/21 2:31:00 PM EDT, Compound Start Date: 10/13/21 Status: Ordered Quantity: 1.0 Unit: each Repeat number: 12 No sting skin prep spray ([employer]) No sting skin prep spray ([employer]), See Instructions, # 1 each, Refills 11, Tot. Refills 11, Maintenance, Use as needed for ostomy maintaince. Dx colostomy Z93.3, 03/28/24 9:25:00 AM EDT, Supply Start Date: 03/28/24 Status: Ordered Quantity: 1.0 Unit: each Repeat number: 12 Nurtec ODT 75 mg oral tablet, disintegrating 1 tablet = 75 mg, By Mouth, Every other day, PRN migraine Start Date: 07/16/22 Status: Ordered Repeat number: 1 nystatin topical 117622 u/gm cream 1 application, Topically, 2 times a day, PRN Rash, applyunderbreastsandbelly, # 15 Gm, 0 Refills, Maintenance, 12/10/20 4:34:00 PM EDT, Cream, Partial fill upon patient request if the prescription is for a schedule II opioid drug. Start Date: 12/10/20 Status: Ordered Quantity: 15.0 Unit: g Repeat number: 1 omeprazole 20 mg oral delayed release tablet 1 tablet = 20 mg, By Mouth, 2 times a day, Maintenance, 03/08/21 3:57:00 PM EDT, EC Tablet, Partial fill upon patient request if the prescription is for a schedule II opioid drug. Start Date: 03/08/21 Status: Ordered Repeat number: 1 ondansetron 8 mg oral tablet, disintegrating 1 tablet = 8 mg, By Mouth, Every 8 hours, PRN Nausea & Vomiting, Maintenance, 07/16/22 4:12:00 PM EST, Tablet, Partial fill upon patient request if the prescription is for a schedule II opioid drug. Start Date: 07/16/22 Status: Ordered Repeat number: 1 ProAir HFA 90 mcg/inh inhalation aerosol with adapter 2, puffs, Inhalation, Every 4 hours, PRN, # 8.5 Gm, Refills 0, Maintenance, 12/01/16 2:12:26 PM EDT,Aerosol Start Date: 12/01/16 Status: Ordered Quantity: 8.5 Unit: g Repeat number: 1 RIBOFLAVIN 400MG TABLETS TAKE 1 TABLET BY MOUTH EVERY DAY Start Date: 07/16/22 Status: Ordered Repeat number: 1 stoma powder stoma powder, See Instructions, # 1 each, Refills 11, Tot. Refills 11, Maintenance, use as needed for ostomt care. Dx colostomy Z93.3, 10/13/21 2:30:00 PM EDT, Compound Start Date: 10/13/21 Status: Ordered Quantity: 1.0 Unit: each Repeat number: 12 UNSTERILE 4X4 GAUZE UNSTERILE 4X4 GAUZE, See Instructions, # 200 each, Refills 11, Tot. Refills 11, Maintenance, USE ASNEEDED FOR OSTOMY CARE DX = COLOSTOMY, 02/09/22 3:41:00 PM EDT, Supply, 163, cm, 12/13/21 16:42:00 EDT, Height, 90.3, kg, 09/02/21 12:26:00 EDT, Dry Weight Start Date: 02/09/22 Status: Ordered Quantity: 200.0 Unit: each Repeat number: 12 Unsterile 4x4 Gauze Unsterile 4x4 Gauze, See Instructions, # 200 each, Refills 11, Tot. Refills 11, Maintenance, Use asneeded for ostomy maintenance. Dx: colostomy Z93.3, 09/23/22 1:27:00 PM EDT, Supply Start Date: 09/23/22 Status: Ordered Quantity: 200.0 Unit: each Repeat number: 12 Vitamin D3 50,000 intl units oral capsule 1 capsule = 1,250 mcg, By Mouth, Every week, Maintenance, 07/16/22 4:19:00 PM EST, Capsule, Partial fill upon patient request if the prescription is for a schedule II opioid drug. Start Date: 07/16/22 Status: Ordered Repeat number: 1 Problem List Condition Confirmation Course Effective Dates Status H ealth Status Informant Abdominal pain Confirmed Active Anxiety Confirmed Active CAD - Coronary artery disease 1 Confirmed Active Degenerative disc disease 2 Confirmed Active Fibromyalgia Confirmed Active Hyperlipidemia Confirmed Active Hypertension Confirmed Active Adenocarcinoma Confirmed Active Obese class I Confirmed Active 150% single vessel on cath 04/11 2Lumbar s/p surgery * 2 Patient Care team information Care Team Personnel Name: Emily Cordova RN Position: [facility] RN Member Role: Primary Care Nurse Name: Sussy Paredes RN Position: [facility] RN Member Role: Primary Care Nurse Name: Kamari Cordon RN Position: [facility] RN Member Role: Primary Care Nurse Name: Krys Coates RN Position: [facility] ED RN W/OE and Tasks Member Role: Primary Care Nurse Name: Elizabeth Olson RN Position: [facility] RN Supv Member Role: Primary Care Nurse Name: Katerin Sterling RN Position: [facility] RN Member Role: Primary Care Nurse Name: Miguel Angel Ravi RN Position: [facility] RN Member Role: Primary Care Nurse Name: Alta Ocampo RN Position: [facility] RN Member Role: Primary Care Nurse Name: Raya Sandoval RN Position: [facility] RN Member Role: Primary Care Nurse Name: Miriam Bishop RN Position: [facility] RN Member Role: Primary Care Nurse Name: Noy Johnson RN Position: [facility] RN Member Role: Primary Care Nurse Name: Tali Haile RN Position: [facility] RN Member Role: Primary Care Nurse Name: Tatianna Newby RN Position: [facility] SN RN Member Role: Primary Care Nurse Name: Polo Telles RN Position: [facility] RN Member Role: Primary Care Nurse Name: Aicha Castro RN Position: [facility] RN Member Role: Primary Care Nurse Name: Karol Mims RN Position: [facility] RN Member Role: Primary Care Nurse Name: Jessi Hernandez RN Position: [facility] RN Member Role: Primary Care Nurse Name: Thalia Brito RN Position: [facility] RN Member Role: Primary Care Nurse Name: Chelsea Miles MD Position: Reference Physician Member Role: PCP Address: [address] [place] [address] [address] [place] [address]- Telecom: Name: Dena Navas RN Position: [facility] RN Member Role: Primary Care Nurse Name: Korin Walters RN Position: [facility] RN Member Role: Primary Care Nurse Name: Lian [place] RN Position: [facility] Hospital Siphon Operator Member Role: Primary Care Nurse Name: Timothy Foster RN Position: [facility] RN Member Role: Primary Care Nurse Care Team Related Persons Name: MCKAYLA VASQUEZ Insurance Providers Guarantor name: SEVERO PEDRO Health Plan Information #: 2 Payer: [facility] Member Number: [id number] Policy Number: JAMES Group Number: JAMES Health Plan Information #: 1 Payer: MEDICARE PART B OUTPT Member Number: [id number] Policy Number: NA Group Number: NA
--- OUTSIDE RECORDS SUMMARY | 2024-07-23 09:26 | XMS_ITS | Encounter Summary ---
Author Organization [facility] Address [id number] [place] [id number] Care Team Providers Care Synchronous Motor Assembler Name Role Phone Cassandra Oconnor MD Primary Care Provider [phone] Encounter Details Date Type Department Care Team (Late st Contact Info) Description 05/07/2024 Lab Requisition [facility] - Main Lab [address] [facility] [place] [address] Ray Lee MD [address] [place] [address] 204 [facility] [phone] Essential (primary) hypertension Social History Tobacco Use Types Packs/Day Years [...] Procedure Name Priority Date/Time Associated Diagnosis Comments CBC WITH AUTO DIFFERENTIAL Routine 05/07/2024 7:55 AM EST Essential (primary) hypertension CBC AND DIFFERENTIAL Routine 05/07/2024 7:55 AM EST Essential (primary) hypertension VALPROIC ACID LEVEL, TOTAL Routine 05/07/2024 7:55 AM EST Essential (primary) hypertension COMPREHENSIVE METABOLIC PANEL Routine 05/07/2024 7:55 AM EST Essential (primary) hypertension documented in this encounter Results * (ABNORMAL) CBC auto differential (05/07/2024 7:55 AM EST) [facility] WBC 7.5 4.8 - 10.8 K/mcL LAB HEMETOLOGY METHOD 05/07/2024 10:31 AM [facility] RBC 3.60(L) 3.80 - 4.80 M/mcL LAB HEMETOLOGY METHOD 05/07/2024 10:31 AM [facility] Hemoglobin 11.5 11.5 - 16.0 g/dL LAB HEMETOLOGY METHOD 05/07/2024 10:31 AM [facility] Hematocrit 38.7 35.0 - 47.0 % LAB HEMETOLOGY METHOD 05/07/2024 10:31 AM [facility] MCV 108.7(H) 79.0 - 98.0 FL LAB HEMETOLOGY METHOD 05/07/2024 10:31 AM [facility] MCH 32.3(H) 27.0 - 32.0 pcg LAB HEMETOLOGY METHOD 05/07/2024 10:31 AM [facility] MCHC 29.7(L) 32.0 - 37.0 g/dL LAB HEMETOLOGY METHOD 05/07/2024 10:31 AM [facility] RDW 18.4(H) 11.0 - 15.0 % LAB HEMETOLOGY METHOD 05/07/2024 10:31 AM [facility] Platelets 265 130 - 400 K/mcL LAB HEMETOLOGY METHOD 05/07/2024 10:31 AM [facility] MPV 11.4(H) 7.0 - 11.0 FL LAB HEMETOLOGY METHOD 05/07/2024 10:31 AM [facility] NRBC 0.0 <1.0 % LAB HEMETOLOGY METHOD 05/07/2024 10:31 AM [facility] NRBC Absolute 0.00 <0.10 K/mcL LAB HEMETOLOGY METHOD 05/07/2024 10:31 AM [facility] Neutrophils Relative 54.4 % LAB HEMETOLOGY METHOD 05/07/2024 10:31 AM [facility] Lymphocytes Relative 26.7 % LAB HEMETOLOGY METHOD 05/07/2024 10:31 AM [facility] Monocytes Relative 15.0 % LAB HEMETOLOGY METHOD 05/07/2024 10:31 AM [facility] Eosinophils Relative 0.0 % LAB HEMETOLOGY METHOD 05/07/2024 10:31 AM [facility] Basophils Relative 1.2 % LAB HEMETOLOGY METHOD 05/07/2024 10:31 AM [facility] Immature Granulocytes Relative 2.7 % LAB HEMETOLOGY METHOD 05/07/2024 10:31 AM [facility] Neutrophils Absolute 4.07 1.50 - 7.00 K/mcL LAB HEMETOLOGY METHOD 05/07/2024 10:31 AM [facility] Lymphocytes Absolute 2.00 1.00 - 5.00 K/mcL LAB HEMETOLOGY METHOD 05/07/2024 10:31 AM [facility] Monocytes Absolute 1.12(H) 0.20 - 1.00 K/mcL LAB HEMETOLOGY METHOD 05/07/2024 10:31 AM [facility] Eosinophils Absolute 0.00 0.00 - 0.50 K/mcL LAB HEMETOLOGY METHOD 05/07/2024 10:31 AM [facility] Basophils Absolute 0.09 0.00 - 0.20 K/mcL LAB HEMETOLOGY METHOD 05/07/2024 10:31 AM [facility] Immature Granulocytes Absolute 0.20(H) 0.00 - 0.03 K/mcL LAB HEMETOLOGY METHOD 05/07/2024 10:31 AM EST [facility] Blood Venous blood specimen / Unknown Venipuncture / Unknown 05/07/2024 7:55 AM EST 05/07/2024 10:01 AM EST Ray Lee MD LAB BLOOD ORDERABLES Final Resul t Performing Organization Address City/[facility]/ZIP Co de Phone Number [facility] [address] [place] [address], [place] [phone] * Valproic acid level, total (05/07/2024 7:55 AM EST) Pathologist [facility] Valproic Acid, Total 71 50 - 100 mcg/mL LAB CHEMISTRY METHOD 05/07/2024 10:47 AM [facility] Blood Venous blood specimen / Unknown Venipuncture / Unknown 05/07/2024 7:55 AM EST 05/07/2024 10:01 AM EST Ray Lee MD LAB BLOOD ORDERABLES Final Resul t Performing Organization Address City/[facility]/ZIP Co de Phone Number [facility] [address] [place] [address], [place] [phone] * (ABNORMAL) Comprehensive metabolic panel (05/07/2024 7:55 AM EST) Pathologist [facility] Sodium 137 133 - 145 mmol/L LAB CHEMISTRY METHOD 05/07/2024 10:52 AM [facility] Potassium 4.2 3.5 - 5.5 mmol/L LAB CHEMISTRY METHOD 05/07/2024 10:52 AM [facility] Chloride 103 96 - 110 mmol/L LAB CHEMISTRY METHOD 05/07/2024 10:52 AM [facility] CO2 23 21 - 32 mmol/L LAB CHEMISTRY METHOD 05/07/2024 10:52 AM [facility] Anion Gap 11 3 - 11 LAB CHEMISTRY METHOD 05/07/2024 10:52 AM [facility] Glucose 80 70 - 100 mg/dL LAB CHEMISTRY METHOD 05/07/2024 10:52 AM [facility] BUN 16 5 - 25 mg/dL LAB CHEMISTRY METHOD 05/07/2024 10:52 AM [facility] Creatinine 0.65 0.50 - 1.10 mg/dL LAB CHEMISTRY METHOD 05/07/2024 10:52 AM [facility] eGFR 101 >=60 mL/min/1. 73m2 LAB CHEMISTRY METHOD 05/07/2024 10:52 AM [facility] Comment:Calculation based on the??Chronic Kidney Disease Epidemiology Collaboration (CKD-EPI) equation refit??without adjustment for race. BUN/Creatinine Ratio 24.6 LAB CHEMISTRY METHOD 05/07/2024 10:52 AM [facility] Calcium 8.8 8.5 - 10.5 mg/dL LAB CHEMISTRY METHOD 05/07/2024 10:52 AM [facility] AST (SGOT) 25 10 - 42 unit/L LAB CHEMISTRY METHOD 05/07/2024 10:52 AM [facility] ALT (SGPT) 9(L) 10 - 60 unit/L LAB CHEMISTRY METHOD 05/07/2024 10:52 AM [facility] Alkaline Phosphatase 70 42 - 121 unit/L LAB CHEMISTRY METHOD 05/07/2024 10:52 AM [facility] Total Protein 6.0 6.0 - 8.0 g/dL LAB CHEMISTRY METHOD 05/07/2024 10:52 AM [facility] Albumin 2.7(L) 3.2 - 5.0 g/dL LAB CHEMISTRY METHOD 05/07/2024 10:52 AM [facility] Total Bilirubin 0.4 0.0 - 1.4 mg/dL LAB CHEMISTRY METHOD 05/07/2024 10:52 AM [facility] Blood Venous blood specimen / Unknown Venipuncture / Unknown 05/07/2024 7:55 AM EST 05/07/2024 10:01 AM EST us Ray Lee MD LAB BLOOD ORDERABLES Final Resul t [facility] ([facility]) [facility] [address] [place] [address], documented in this encounter Visit Diagnoses Diagnosis Essential (primary) hypertension Unspecified essential hypertension documented in this encounter Care Teams Synchronous Motor Assembler Relationship Specialty Start Date End Date Cassandra Oconnor MD [address] [place] [address] PCP - General 10/26/10 documented as of this encounter
--- OUTSIDE RECORDS SUMMARY | 2024-07-23 09:26 | XMS_ITS | Continuity of Care Document ---
Author Organization [address] [place] [address]- Care Team Providers Care Industrial Pipefitter Journeyman Name Role Phone Denny Armstrong MD, Chelsea Muniz Primary Care Physician Encounter [facility] Date(s): 07/10/24 - 07/17/[address] [place] [address]- Attending Physician: Fer Sood MD Referring Physician: Eboni STUART, Ward Larsen Encounter Type: Office Visit Allergies, Adverse Reactions, Alerts Substance Criticality Severity Reaction Reaction Severity Status ibuprofen nausea Active penicillin 1 body rash Activ e sulfADIAZINE severe diarrhea A ctive cyclobenzaprine nausea Acti ve levoFLOXacin severe diarrhea A ctive Effexor unsure Active Topamax sleep walking Acti ve fentaNYL hallucinations Act jake 1Tolerated zosyn 07/2022 Immunizations Given and Recorded [...] Ordered Repeat number: 1 Brava barrier rings (009397) Brava barrier rings ([id number]), See Instructions, # 20 each, Refills 11, [...] 2:54:00 PM EDT, Route to Pharmacy Electronically, [facility], Partial fill upon patient request if the prescription is for a schedule II opioid drug., 163, cm, 09/02/21 12:26:00 EDT, Height, 90.3, kg, 09/02/21 12:26:00 EDT, Dry Weight Start Date: 09/02/21 Status: Ordered Quantity: 60.0 Unit: capsule Repeat number: 4 [employer]ura #42285 [employer] #[id number], See Instructions, # 20 each, Refills 11, [...] each Repeat number: 1 ium nitrile gloves #[id number] ium nitrile gloves #[id number], See Instructions, # 100 each, Refills 6, [...] tablet,12 Refills, Maintenance, 02/26/24 1:41:00 PM EDT, [id number], Partial fill upon patient request if the [...] Status: Ordered Repeat number: 1 nystatin topical [id number] u/gm cream 1 application, Topically, 2 times [...] cath 04/11 2Lumbar s/p surgery * 2 Vital Signs Most recent to oldest [Reference Range]: 1 Height 163 cm (07/10/24 1:06 PM) Weight 85.0 kg (07/10/24 1:06 PM) Pulse Rate [55-90 bpm] 111 bpm *H* (07/10/24 1:06 PM) Body Mass Index [18.5-24.99 kg/m2] 31.99 kg/m2 *>HHI* (07/10/24 1:06 PM) Blood Pressure [90-138/55-84 mm Hg] 149/ 84mm Hg *H* (07/10/24 1:06 PM) Temperature [96.8-100.4 DegF] 97.9 DegF (07/10/24 1:06 PM) Temperature Route Temporal (07/10/24 1:06 PM) Patient Care team information Care Team Personnel Name: Emily Corodva RN Position: [facility] RN Member Role: Primary Care Nurse Name: Sussy Paredes RN Position: [facility] RN Member Role: Primary Care Nurse Name: Kamari Cordon RN Position: [facility] RN Member Role: Primary Care Nurse Name: Krys Coates RN Position: [facility] ED RN W/OE and Tasks Member Role: Primary Care Nurse Name: Elizabeth Olson RN Position: [facility] RN Supv Member Role: Primary Care Nurse Name: Katerin Sterling RN Position: [facility] RN Member Role: Primary Care Nurse Name: Miguel Angel Ravi RN Position: [facility] RN Member Role: Primary Care Nurse Name: Alta Ocampo RN Position: [facility] RN Member Role: Primary Care Nurse Name: Raya Sandoval RN Position: [facility] RN Member Role: Primary Care Nurse Name: Miriam Bishop RN Position: [facility] RN Member Role: Primary Care Nurse Name: Noy Johnson RN Position: [facility] RN Member Role: Primary Care Nurse Name: Tali Haile RN Position: [facility] RN Member Role: Primary Care Nurse Name: Tatianna Newby RN Position: [facility] SN RN Member Role: Primary Care Nurse Name: Polo Telles RN Position: [facility] RN Member Role: Primary Care Nurse Name: Aicha Castro RN Position: S RN Member Role: Primary Care Nurse Name: Karol Mims RN Position: [facility] RN Member Role: Primary Care Nurse Name: Jessi Hernandez RN Position: [facility] RN Member Role: Primary Care Nurse Name: Thalia Brito RN Position: [facility] RN Member Role: Primary Care Nurse Name: Chelsea Miles MD Position: Reference Physician Member Role: PCP Address: [address] [place] [address] [address] [place], [place] [address] Telecom: Name: Dena Navas RN Position: [facility] RN Member Role: Primary Care Nurse Name: Korin Walters RN Position: [facility] RN Member Role: Primary Care Nurse Name: Lian Washington RN Position: [facility] Clinical Field Specialist Member Role: Primary Care Nurse Name: Timothy Foster RN Position: [facility] RN Member Role: Primary Care Nurse Care Team Related Persons Name: JESSEEDebMCKAYLA Insurance Providers Guarantor name: SEVERO RAFAELOMAR Health Plan Information #: 2 Payer: [facility] Member Number: [id number] Policy Number: NA Group Number: NA Health Plan Information #: 1 Payer: MEDICARE PART B OUTPT Member Number: [id number] Policy Number: NA Group Number: NA
--- OUTSIDE RECORDS SUMMARY | 2024-07-23 09:26 | XMS_ITS | Data Portability ---
Author Organization [facility], Main Office Address [address] [place] [address] Care Team Providers Care Senior Controls Analyst Name Role Phone SUPRIYA GARCIA - 2ND FLOOR OTHER MICHELLE CASTANON Primary Care Provider Assessment Encounter Date Assessment Date Assessment LastModified by Organization Details LastModified Time 05/16/2024 05/16/2024 45 mins. spent on coordination of discharge [email or web address] Not available 05/16/2024 13:15:07 Plan of Treatment Reminders Order Date Submit [...] Time Acute hypercapn ic respirato ry failure 474823286 Active 2019 Janna Triana [address] [facility], [address], [place], [address], [facility] 0 13:33:36 Bipolar disorder 48982159 Active 2019 and PTSD DAVID GARRIDO NP [address] [facility], [address], [place], [address], [facility] 4 11:40:12 Essential hypertens ion 23238005 Active 2019 Janna Triana [address] [facility], [address], [place], [address], [facility] [employer] [facility] 0 13:36:22 Gastroeso phageal reflux disease without esophagit is 743704253 Active 2019 [facility] Kamilah [address] [place] [address], [address], [place], [address], [facility] 0 13:37:17 Coronary arteriosc lerosis 81585875 Active 2019 Janna Kamilah [address] [facility], [address], [place], [address], [facility] 0 13:41:31 Chronic obstructi ve pulmonary disease 64524891 Active 2019 Janna Kamilah [address] [facility], [address], [place], [address], [facility] 0 13:43:44 Obstructi ve sleep apnea syndrome 94004982 Active 2019 Janna Kamilah [address] [place] [address], [address], [place], [address], [facility] 0 13:45:06 Chronic pain 29907712 Active 2019 back DAVID GARRIDO NP [address] [facility], [address], [place], [address], [facility] 4 11:40:25 Restless legs 93198904 Active 2019 Ray Lee MD [address] [facility], [address], [place], [address], [facility] 0 12:39:59 Malignant tumor of colon 011958578 Active 2023 s/p partial colectomy 2020 with ostomy DAVID GARRIDO NP [address] [facility], [address], [place], [address], [facility] 4 11:41:17 Atrial fibrillat ion 08050945 Active 2023 with RVR DAVID GARRIDO NP [address] [facility], [address], [place], [address], [facility] 4 11:41:27 Congestiv e heart failure 45892620 Active 2023 DAVID GARRIDO NP [address] [facility], [address], [place], [address], [facility] 4 11:41:33 Restricti ve lung disease 13051720 Active 2023 DAVID GARRIDO NP [address], [address], [place], [address], [facility] 4 11:41:42 Acute-on- chronic respirato ry failure 21367548 Active 2023 DAVID GARRIDO NP [address], [address], [place], [address], [facility] 4 11:41:59 SARS-CoV- 2 Active 2023 DAVID GARRIDO NP [address], [address], [place], [address], [facility] 4 11:42:21 Pericardi al effusion 925383914 Active 2023 DAVID GARRIDO NP [address], [address], [place], [address], [facility] 4 11:42:33 Hyperlipi demia 74593224 Active 2023 DAVID GARRIDO NP [address], [address], [place], [address], [facility] 4 11:42:47 Periphera l vascular disease 866393283 Active 2023 DAVID GARRIDO NP [address] [facility], [address], [place], [address], [facility] 4 11:42:59 Gastroint estinal hemorrhag e 21643877 Active 2023 DAVID GARRIDO NP [address] [facility], [address], [place], [address], [facility] 4 11:43:11 Malignant tumor of lung 008323807 Active 2023 s/p LLLobectom y 2020 DAVID GARRIDO NP [address], [address], [place], [address], [facility] 4 11:43:41 Obesity 923925026 Active 2023 DAVID GARRIDO NP [address], [address], [place], [address], [place] [facility] 4 11:44:00 Fibromyal yolis 968208520 Active 2023 DAVID GARRIDO NP [address], [address], [place], [address], [facility] [employer] [facility] 4 11:44:15 Asthenia 71729593 Active 2023 DAVID GARRIDO NP [address], [address], [place], [address], [facility] [employer] [facility] 4 11:44:32 Anemia 650497265 Active 2023 DAVID GARRIDO NP [address], [address], [place], [address], [facility] 4 11:46:22 Overactiv e urinary bladder 955106327 Active 2023 DAVID GARRIDO NP [address], [address], [place], [address], [facility] [employer] [facility] 4 11:47:19 Urinary tract infectiou s disease 17468070 Active 2023 DAVID GARRIDO NP [address], [address], [place], [address], [facility] 4 11:47:55 Acute COVID-19 9508514319 Active 2023 Brynn Allen MD [address], [address], [place], [address], [facility] 4 18:03:34 Problem Notes None recorded. Medical Equipment None Reported. Allergies Allergen ID Allergen Name Allergen Category Reaction Reaction Severity Criticality Documentation Date Start Date Code Code System Note Provider Name and Address Organization Details Recorded Time cyclobenz aprine medicatio n Not available Not available Not available 05/01/2020 98919 RxNorm Not Available Not Available Not Available fentanyl medicatio n Not available Not available Not available 05/01/2020 4337 RxNorm hallu cinat ions Not Available Not Available Not Available topiramat e medicatio n Not available Not available Not available 05/01/2020 71405 RxNorm Not Available Not Available Not Available venlafaxi ne medicatio n Not available Not available Not available 05/01/2020 84395 RxNorm rash Not Available Not Available Not Available 08778 Product containin g penicilli n (product) medicatio n Not available Not available Not available 05/01/2020 99888 8001 SNOMED rash Not Available Not Available Not Available 03344 Levaquin medicatio n Not available Not available Not available 04/30/2024 82273 2 RxNorm diarr hea Not Available Not Available Not Available 01140 Substance with sulfonami de structure and antibacte rial mechanism of action (substanc e) medicatio n Not available Not available Not available 04/30/2024 99519 8003 SNOMED diarr hea Not Available Not Available Not Available Vitals Date Recorded Heart rate Respiratory rate Body temperature Oxygen saturation Oxygen saturation in Arterial blood by Pulse oximetry Systolic blood pressure Diastolic blood pressure Provider Name and Address Organization Details Last Updated DateTime 4 87 /min 18 /min 97.8 [degF] 94 % 94 % 119 mm[Hg] 62 mm[Hg] DAVID GARRIDO NP [address] [facility] [address], [place], [address], [employer] 4 11:25:49 Date Recorded Body weight Heart rate Respiratory rate Body temperature Oxygen saturation Oxygen saturation in Arterial blood by Pulse oximetry Systolic blood pressure Diastolic blood pressure Provider Name and Address Organization Details Last Updated DateTime 4 10801.3 7 g 82 /min 18 /min 99 [degF] 96 % 96 % 134 mm[Hg] 72 mm[Hg] Nadiya Jorgensen NP [address], [place], [address], [facility] 4 10:49:28 Date Recorded Body height Body mass index (BMI) Body weight Heart rate Respiratory rate Body temperature Oxygen saturation Oxygen saturation in Arterial blood by Pulse oximetry Systolic blood pressure Diastolic blood pressure Provider Name and Address Organization Details Last Updated DateTime 4 165.1 cm 31.3 kg/m2 30310.3 7 g 80 /min 18 /min 97.6 [degF] 95 % 95 % 134 mm[Hg] 72 mm[Hg] Brynn Allen MD [address], [address], [place], [address], [employer] 4 16:16:16 Date Recorded Body height Heart rate Respiratory rate Body temperature Oxygen saturation Oxygen saturation in Arterial blood by Pulse oximetry Systolic blood pressure Diastolic blood pressure Provider Name and Address Organization Details Last Updated DateTime 4 165.1 cm 94 /min 17 /min 97.3 [degF] 95 % 95 % 122 mm[Hg] 72 mm[Hg] Nadiya Jorgensen NP [address] [facility], [address], [place], [address], [facility] 4 08:54:32 Date Recorded Body height Heart rate Respiratory rate Body temperature Oxygen saturation Oxygen saturation in Arterial blood by Pulse oximetry Systolic blood pressure Diastolic blood pressure Provider Name and Address Organization Details Last Updated DateTime 4 165.1 cm 80 /min 18 /min 98 [degF] 98 % 98 % 122 mm[Hg] 72 mm[Hg] DAVID GARRIDO NP [address], [place], [address], [facility] 4 12:45:16 Social History Question Answer Notes LastModified by Organizat ion Details LastModified Time Tobacco Smoking Status Former Smoker Janna Triana [address] [facility], [address], [place], [address], [employer] 05/01/2020 14:31:11 Do You Have An Advance Directive? Yes Information not available 05/07/2024 What Is Your Level Of Alcohol Consumption? None [email or web address] Information not available 04/30/2024 What Is Your Code Status? Full Code [email or web address] Information not available 04/30/2024 Do You Or Have You Ever Used E-cigarettes Or Vape? Former User Of Electronic Cigarettes [email or web address] Information not available 04/30/2024 Where Do You Live? 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 04/30/2024 [email or web address] Information not available 04/30/2024 Do You Have An Out Of Hospital DNR? No Information not available 05/07/2024 What Is Your Relationship Status? Information not available 05/07/2024 Do You Or Have You Ever Used Smokeless Tobacco? Never Used Smokeless Tobacco [email or web address] Information not available 05/01/2020 How Much Tobacco Do You Smoke? No [email or web address] Information not available 04/30/2024 Do You Use Any Illicit Or Recreational Drugs? No [email or web address] Information not available 04/30/2024 Has Tobacco Cessation Counseling Been Provided? No [email or web address] Information not available 04/30/2024 How Many Years Have You Smoked Tobacco? 40 [email or web address] Information not available 04/30/2024 Do You Or Have You Ever Used Any Other Forms Of Tobacco Or Nicotine? Yes Information not available 04/30/2024 Sex: Unknown Functional Status None recorded. Mental Status None recorded. Family History Relationship Description Onset Age of this Age Resolved Age Notes LastModified by Organization Details LastModified Time Father Hypertensive disorder Not available 2023 11:28:51 Mother Hypertensive disorder [email or web address] Not available 2023 11:28:51 Mother Malignant neoplasm of uterus [email or web address] Not available 2023 11:29:10 Mother Chronic obstructive pulmonary disease [email or web address] Not available 2023 11:29:26 Mother Heart disease [email or web address] Not available 2023 11:29:51 Mother Mental disorder [email or web address] Not available 2023 11:30:10 Notes:mother by suicide Medical History No medical history recorded. Gynecological HistoryNo gynecological history recorded. Obstetrics History GPAL:G 0 P 0 0 0 0 Immunizations Vaccine Type Date Status Note Provider Nam e and Address Organization Details Recorded Time Tdap 6 completed Tatyana Alaniz [facility] 05/01/2024 14:41:19 pneumococcal polysaccharide PPV23 0 completed Tatyana Alaniz [facility] 05/01/2024 14:41:33 influenza, unspecified formulation 2 completed Tatyana Alaniz [facility] 05/01/2024 14:41:49 SARS-COV-2 (COVID-19) vaccine, UNSPECIFIED 1 completed Tatyana Corbin [facility] 05/01/2024 14:42:06 SARS-COV-2 (COVID-19) vaccine, UNSPECIFIED 1 completed Tatyana roach [facility] 05/01/2024 14:42:13 Past Encounters Encounter ID Performer Location Encounter Start Date Encounter Closed Date Diagnosis/Indication Diagnosis SNOMED-CT Code Diagnosis ICD10 Code Diagnosis Note [id number] Janna Triana JAYSHREE AT [address] [address] 05/01/2020 13:20:20 05/12/2020 13:44:52 Acute hypercapnic respiratory failure 397485222 J96.02 see HPItreated with steroids, BiPAP and bronchodil ators in acute carefinish steroids heremed regimen modified.P t OT to eval and treat.vladislav candis Bipolar disorder 6155348 4 F31.9 see HPI? med regimen contributi ng to resp failuredep akote, clonazapam , and amitriptyl ine reduced in acute caremonito r sxHDBH prn Essential hypertension 92423252 I10 norvasc 10 mg qdmetoprol ol changed to carvedilol in acute care ASA 82 mg qdmonitor BPs Gastroesop hageal reflux disease without esophagitis 087960731 K21.9 on PPI. monitor for sx. Coronary arteriosclerosis 41213708 I25.10 on ASA. monitor Chronic ob structive pulmonary disease 07639713 J44.9 BREO qdpredniso ne tapersuppl emental R1hxryuya. Obstructiv e sleep apnea syndrome 19335869 G47.33 see HPI? contributi ng to resp [id number]/ 7 BIPAP in acute care tapered to nocturnal BiPAPconti nue CPAP at nighttime. modafinil started in acute caref/u pulmonolog y outpatient Dr Kaba Chronic pain 98588297 G8 9.29 percocet prn. monitor [id number] MD JAYSHREE Mahoney AT [address] [address] 05/06/2020 12:33:46 05/12/2020 13:42:27 Chronic obstructive pulmonary disease 87000636 J44.1 see abovetx with prednisone Obstructiv e sleep apnea syndrome 62483863 G47.33 new dxsee aboveconti nue positive airway pressureco ntinue support caref/u with pulmonary Acute hype rcapnic respiratory failure 967718516 J96.02 see HPIfelt that medication s and IVY were contributi ng factorsimp roved with BiPAP and O2wean as toleratedf /u with pulmonary in placemonit or respirator y status Bipolar disorder 5621279 4 F31.89 medication s adjusted in hospitalno w ondepakote 500 mg qdmonitor for sx controlpsy ch eval prn Essential hypertension 28969121 I10 now onnorvasc 10 mg qdcoreg 12.5 mg bidmonitor bptitrate prn Gastroesop hageal reflux disease without esophagitis 410593662 K21.9 omeprazole 20 mg qdmonitor for sx control Coronary arteriosclerosis 64130738 I25.10 on ASA. monitor Chronic pain 55745686 G8 9.29 question if oxycodone was contributi ng factor to respirator y failuremon itor on percocet Asthenia 55293623 R53.1 PT OT eval and treatmonit or fall riskambula sam with walker at baseline [id number] Janna Kamilah MARTELL AT [address] [address] 05/14/2020 12:57:20 05/20/2020 14:32:57 Acute hypercapnic respiratory failure 115869507 J96.02 resolved, ? medication s and IVY were contributi ng factorsimp roved with BiPAP and O2wean as toleratedf /u with pulmonary outpatient in place Chronic ob structive pulmonary disease 10563066 J44.1 see aboveBreo qd, Ellipta qd tx with prednisone f/u outpatient Obstructiv e sleep apnea syndrome 27945123 G47.33 new dxsee aboveprovi amilcar 100mg qdcontinue positive airway pressureco ntinue support caref/u with pulmonary outpatient Bipolar disorder 8724247 4 F31.89 medication s adjusted in hospitalno w onduloxeti ne 60 mg qdamitript yline 25 mg qddepakote 500 mg qdclonapin 0.5 mg BID prnf/u outpatient Essential hypertension 10765133 I10 now onnorvasc 10 mg qdcoreg 12.5 mg bidf/u outpatient Gastroesop hageal reflux disease without esophagitis 138219090 K21.9 omeprazole 20 mg qdf/u outpatient Coronary arteriosclerosis 65061356 I25.10 on ASA. f/u outpatient Chronic pain 37308289 G8 9.29 question if oxycodone was contributi ng factor to respirator y failurenow on percocet 10/325 QID prnf/u outpatient [id number] DAVID GARRIDO NP [address] [address] 04/30/2024 11:24:50 05/01/2024 10:36:48 Asthenia 95332689 R53.1 deconditio regina due to recent infection and chronic medical conditions fall x 2 wks agoPT OT eval and tx.Goal is to return home. Chronic pain 77884650 G8 9.29 with increased c/o back pain post fall 2 wks ago.ER work up unremarkab le.PT OT eval and tx.APAP prnultram 50 mg q8 hr prnMonitor and adjust med prnRefer to in house PMR for eval. and tx. Bipolar disorder 0119365 4 F31.89 also with PTSDalso dealing with the of her son in [place] home meds:VPA 500 mg q am, 1000 mg q pmDuloxeti ne 60 mg q hsClonazep am 1 mg bidMonitor mood, behaviorsS upportive carePsych eval prn Chronic ob structive pulmonary disease 75587422 J44.1 States uses O2 PRN at home, currently not wearing, will let us know when she needs it.Continu e home meds:Incru se ellipta 1 inh qdBreo ellipta 1 inh qdMonitor resp. status. Anemia 116123042 D64.9 ??H/O GI bleedCurre ntly on:Fe SO4 325 mg bidB12 1000 mcg qdWill continue meds and trend CBCHgb. 10.4 in ER Essential hypertension 84486804 I10 Continue home meds:Hydra lazine 50 mg tidCardize m CD 240 mg qdMetoprol ol XL 50 mg qdTrend VS, adjust prn Hyperlipidemia 33143695 E78.5 Continue home meds:atorv astatin 80 mg qdfenofibr ate 160 mg qdLipid panel prn Coronary arteriosclerosis 57095305 I25.10 Meds as aboveMonit or CP status Atrial fibrillation 4943 6004 I48.91 Continue home meds:Eliqu is 5 mg bidDiltiaz em CD 240 mg qdMetoprol ol XL 50 mg qdMonitor VS, CP status, bleeding risk (h/o GI bleed) Overactive urinary bladder 081141052 N32.81 ? retention Currently with polo, states [...] Emmanuel Jama hageal reflux disease without esophagitis 784220436 K21.9 with hx. GI BleedConti nue omeprazole 20 mg bidMonitor GI sx. Urinary tr act infectious disease 58475541 N39.0 ??cefpodox jocelyne on d/c med list, but suspect this is in error as UA in ER negative and pt. reports prior UTI addressed during previous hospitaliz ation. Malignant tumor of colon 874854690 C18.9 s/p partial colectomy 2020, now with ostomyAble to perform self care.Mali nue home bowel meds:Imodi um 2 mg q6 hr prnreglan 10 mg q6 hr prnlomotil bid prnlactulo se 15 ml qd prnzofran 8 mg qid prncolace 100 mg bid prn Headache 45268056 R51.9 ??On B2 400 mg qd - will continue Hypokalemia 19989154 E87 .6 On KCL 20 meq qdMonitor BMP [id number] Nadiya Jorgensen NP [address] [address] 05/06/2024 10:44:30 05/07/2024 09:37:52 Asthenia 86605837 R53.1 deconditio regina due to recent infection and chronic medical conditions fall x 2 wks agoPT OT eval and tx.Goal is to return home. Chronic pain 46764633 G8 9.29 with increased c/o back pain post fall 2 wks ago.ER work up unremarkab le.PT OT eval and tx.APAP prnultram 50 mg q8 hr prnMonitor and adjust med prnRefer to in house PMR for eval. and tx. Bipolar disorder 1430160 4 F31.89 also with PTSDalso dealing with the of her son in [place] home meds:VPA 500 mg q am, 1000 mg q pmDuloxeti ne 60 mg q hsClonazep am 1 mg bidMonitor mood, behaviorsS upportive carePsych eval prn Chronic ob structive pulmonary disease 90051987 J44.1 States uses O2 PRN at home, currently not wearing, will let us know when she needs it.Continu e home meds:Incru se ellipta 1 inh qdBreo ellipta 1 inh qdMonitor resp. status. Anemia 162290356 D64.9 labs normal on last check, will reorder todayH/O GI bleedCurre ntly on:Fe SO4 325 mg bidB12 1000 mcg qdWill continue meds and trend CBCHgb. 10.4 in ER Essential hypertension 87535363 I10 Continue home meds:Hydra lazine 50 mg tidCardize m CD 240 mg qdMetoprol ol XL 50 mg qdTrend VS, adjust prn Hyperlipidemia 02338054 E78.5 Continue home meds:atorv astatin 80 mg qdfenofibr ate 160 mg qdLipid panel prn Coronary arteriosclerosis 15756620 I25.10 Meds as aboveMonit or CP status Atrial fibrillation 4943 6004 I48.91 Continue home meds:Eliqu is 5 mg bidDiltiaz em CD 240 mg qdMetoprol ol XL 50 mg qdMonitor VS, CP status, bleeding risk (h/o GI bleed) Overactive urinary bladder 932905293 N32.81 ?? retentionf oley removed last week, and voiding wellUA in ER neg. Currently on:oxybuti juan josé 5 mg qdbethanec hol 50 mg bidCan replace polo if still retaining and refer to Dr. Benitez Gastroesop hageal reflux disease without esophagitis 308137584 K21.9 with hx. GI BleedConti nueomepraz ole 20 mg bidMonitor GI sx. Urinary tr act infectious disease 55957993 N39.0 ??will send another urinalysis with recent increased confusion per last PRACTICE SPECIALIST:cefpodo bernie on d/c med list, but suspect this is in error as UA in ER negative and pt. reports prior UTI addressed during previous hospitaliz ation. Malignant tumor of colon 662328414 C18.9 cancer in remission per ER note and oncologys/ p partial colectomy 2020, now with ostomyAble to perform self care.Mali nue home bowel meds:Imodi um 2 mg q6 hr prnreglan 10 mg q6 hr prnlomotil bid prnlactulo se 15 ml qd prnzofran 8 mg qid prncolace 100 mg bid prn Hypokalemia 99011107 E87 .6 On KCL 20 meq qdMonitor BMP Acute COVID-19 223176596 8 U07.1 pt with new diagnosis of [...] or vitals daily Altered mental status 41 4187354 R41.82 pt with increased confusion from regular confused baseline today per , pt does state she is speaking of a doll in the room today, but not seen (unclear if this is in her belongings as she is packed to go home)stephania nd reports recent ct head and mri's [...] agitationm onitor closely and redirect as able [id number] Brynn Allen MD [address] [address] 05/07/2024 16:10:17 05/08/2024 10:41:40 Acute COVID-19 7324286106 U07.1 Tested + on ppeti te still good, O2 sats good on RA.Continu e molnupirav ir 800 mg BID x 5 days and robitussin 10 m l po q 6 hours prn coughTo use dexamethas one, fluids, supplement al O2 prn for sxs.Contin ue to monitor O2 sats, temp, GI sxs and po intake. Altered mental status 41 1343602 R41.82 Likely due to Covid.Fair ly oriented right now, but apparently had some hallucinat ions earlier.Co ntinue clonazepam 1 mg q 8 hrs prn agitation in addition to usual 1 mg BID as noted below.Reor ient as needed.Mon itor. Asthenia 34368995 R53.1 PT/OT as above.Goal is to return home. Chronic pain 53611414 G8 9.29 Per fell 6 wks ago, but may have had another fall more recently.N o acute findings in ED.Needs PT/OT for strengthen ing, balance, gait training, safety and function.C ontinue fall precaution s.Monitor for safety.Con tinue APAP 650 mg q 4 hrs prn and tramadol 50 mg q 8 hrs prn.Monito r pain control and function.P M&R consult Bipolar disorder 3775993 4 F31.89 Mood good right now, but says she was very confused earlier, see above.Cont inue VPA 500 mg qam and 1000 mg qpm, duloxetine 60 mg qhs and clonazepam 1 mg BID and 1 mg q 8 hrs prn.Monito r mood and behaviorsP sych consult Chronic ob structive pulmonary disease 60648436 J44.1 Uses supplement al O2 prn at home, O2 sats have been good on RA since here.Curre ntly monitoring sats TID for covid surveillan ce and will use O2 prn to maintain sats >92%.Mali nue Incruse ellipta 62.5 mcg 1 puff qd and Breo ellipta 100/25 mcg1 puff qdMonitor resp. status. Anemia 149810080 D64.89 Hgb stable in 10-12 range.H/O GI bleedConti nue FeSO4 325 mg BID and B12 1000 mcg qdMonitor labs. Essential hypertension 15089847 I10 Good control since here.Mali nue hydralazin e 50 mg TID, diltiazem CD 240 mg qd, and metoprolol XL 50 mg qdMonitor BP and labs. Hyperlipidemia 08802316 E78.49 Continue atorvastat in 80 mg qd and fenofibrat e 160 mg qdMonitor labs as outpt. Coronary arteriosclerosis 41777713 I25.10 No recent sxs.Contin ue meds as above.Vladislav tor sxs Atrial fibrillation 4943 6004 I48.0 Rate in good control on meds as above.Cont inue eliquis 5 mg BID for AC.Monitor HR and bleeding risk. Overactive urinary bladder 498534400 N32.81 S/P retention during last hospitaliz ationNow voiding wellContin ue oxybutynin 5 mg qd and bethanecho l 50 mg BIDMonitor urinary function.U ro f/u prn. Gastroesop hageal reflux disease without esophagitis 583970049 K21.9 Hx of GI BleedConti nue omeprazole 20 mg BID.Monito r GI sxs. Urinary tr act infectious disease 53990919 N30.80 Reportedly U/A ordered yest due to increased confusion, but none sent yet.Suspec t confusion is due to Covid.But will remind nursing about obtaining urine. Malignant tumor of colon [id number] C18.8 S/P partial colectomy 2020, with ostomy [...] BID. prnF/U with oncology as planned. Hypokalemia 49853495 E87 .6 Continue KCL 20 meq qdMonitor [facility] [id number] Nadiya Jorgensen, SADE [address] [place] [address] 05/13/2024 13:43:08 05/14/2024 13:30:16 Chronic pain 71512869 G89.29 lower back pain (Per fell 6 wks ago, possibly other falls)work up unremarkab le felt rehab appropriat epain controlled todaycontP T/OT for strengthen ing, balance, gait training, safety and function.f all precaution s.Monitor for safety.APA P 650 mg q 4 hrs prntramado l 50 mg q 8 hrs prn.Monito r pain control and function.P M&R consult Acute COVID-19 181522766 8 U07.1 Tested + on 05/05 now considered recovered with mild courseComp leted molnupirav ir 800 mg BID x 5 days and robitussin 10 m l po q 6 hours prn cough, and off isolationh allucinati ons seem resolved, likely r/t covid? with underlying dementiamo nitor for sequele Altered mental status 41 2501453 R41.82 Likely due to Covid.Fair ly oriented right now, but apparently had some hallucinat ions earlier.Co ntinue clonazepam 1 mg q 8 hrs prn agitation in addition to usual 1 mg BID as noted below.Reor ient as needed.Mon itor. Asthenia 66148661 R53.1 PT/OT as above.Goal is to return home. Bipolar disorder 6329010 4 F31.89 Mood good right now, but says she was very confused earlier, see above.Cont inue VPA 500 mg qam and 1000 mg qpm, duloxetine 60 mg qhs and clonazepam 1 mg BID and 1 mg q 8 hrs prn.Monito r mood and behaviorsP sych consult Chronic ob structive pulmonary disease 84306132 J44.1 Uses supplement al O2 prn at home, O2 sats have been good on RA since here.Aimee ntly monitoring sats TID for covid surveillan ce and will use O2 prn to maintain sats >92%.Mali nue Incruse ellipta 62.5 mcg 1 puff qd and Breo ellipta 100/25 mcg1 puff qdMonitor resp. status. Anemia 611114064 D64.89 Hgb stable in 10-12 range.H/O GI bleedConti nue FeSO4 325 mg BID and B12 1000 mcg qdMonitor labs. Essential hypertension 07846352 I10 Good control since here.Mali nue hydralazin e 50 mg TID, diltiazem CD 240 mg qd, and metoprolol XL 50 mg qdMonitor BP and labs. Hyperlipidemia 07321067 E78.49 Continue atorvastat in 80 mg qd and fenofibrat e 160 mg qdMonitor labs as outpt. Coronary arteriosclerosis 55018301 I25.10 No recent sxs.Contin ue meds as above.Vladislav tor sxs Atrial fibrillation 4943 6004 I48.0 Rate in good control on meds as above.Cont inue eliquis 5 mg BID for AC.Monitor HR and bleeding risk. Overactive urinary bladder 416775251 N32.81 S/P retention during last hospitaliz ationNow voiding wellContin ue oxybutynin 5 mg qd and bethanecho l 50 mg BIDMonitor urinary function.U ro f/u prn. Gastroesop hageal reflux disease without esophagitis 315247094 K21.9 Hx of GI BleedConti nue omeprazole 20 mg BID.Monito r GI sxs. Urinary tr act infectious disease 42828004 N30.80 Reportedly U/A ordered yest due to increased confusion, but none sent yet.Suspec t confusion is due to Covid.But will remind nursing about obtaining urine. Malignant tumor of colon 322941589 C18.8 S/P partial colectomy 2020, with ostomy [...] BID. prnF/U with oncology as planned. Hypokalemia 09797597 E87 .6 Continue KCL 20 meq qdMonitor BMP [id number] DAVID GARRIDO, SADE [facility] [address] [place] [address] 05/16/2024 12:44:25 05/17/2024 14:24:13 Asthenia 45787062 R53.1 deconditio regina due to recent infection and chronic medical conditions fall x 3 wks agoPT OT eval and tx. - has made some progressWi ll be going home tomorrow with support of family, VNA, GSSS. Chronic pain 92522473 G8 9.29 with increased c/o back pain post fall 3 wks ago.ER work up unremarkab le.PT OT eval and tx. - going home tomorrowAP AP prnultram 50 mg q8 hr prn - using here on occasionMo nitor and adjust med prnReferre d to in house PMR for eval. and tx., but no reports scanned into EMR, unsure if was seen. Bipolar disorder 4532854 4 F31.89 also with PTSDalso dealing with the of her son in with some confusion, ? r/t recent covid illness. Unable to get UA C&S due to pt. mary callahan, but will continue to try prior to going home. Can forward results to PCP if obtained. Continue home meds:VPA 500 mg q am, 1000 mg q pmDuloxeti ne 60 mg q hsClonazep am 1 mg bidMonitor mood, behaviorsS upportive carePsych eval prn Chronic ob structive pulmonary disease 23620371 J44.1 States uses O2 PRN at home, currently not wearing, will let us know when she needs it.Continu e:Incruse ellipta 1 inh qdAdvair 250/20 1 inh qdMonitor resp. status. Anemia 545783986 D64.9 ??H/O GI bleedCurre ntly on:Fe SO4 325 mg bidB12 1000 mcg qdWill continue meds and trend CBCHgb. 10.4 in ER, currently 12.5 Essential hypertension 86410747 I10 Continue home meds:Hydra lazine 50 mg tidCardize m CD 240 mg qdMetoprol ol XL 50 mg qdTrend VS, adjust prn Hyperlipidemia 41903531 E78.5 Continue home meds:atorv astatin 80 mg qdfenofibr ate 160 mg qdLipid panel prn Coronary arteriosclerosis 25817196 I25.10 Meds as aboveMonit or CP status Atrial fibrillation 4943 6004 I48.91 Continue home meds:Eliqu is 5 mg bidDiltiaz em CD 240 mg qdMetoprol ol XL 50 mg qdMonitor VS, CP status, bleeding risk (h/o GI bleed) Overactive urinary bladder 027921070 N32.81 ? retention Admitted with a polo, states placed during hospitaliz ation earlier in the month and was sent home with it. Reports also treated for UTI.UA in ER neg.Polo removed here, voiding well, no s/s retention reported by pt. or staff. Continue:o xybutinin 5 mg qdbethanec hol 50 mg bid Gastroesop hageal reflux disease without esophagitis 833692525 K21.9 with hx. GI BleedConti nue omeprazole 20 mg bidMonitor GI sx. as outpt. Urinary tr act infectious disease 65556494 N39.0 ??cefpodox jocelyne on d/c med list, but suspect this is in error as UA in ER negative and pt. reports prior UTI addressed during previous hospitaliz ation. Malignant tumor of colon 403154130 C18.9 s/p partial colectomy 2020, now with ostomyAble to perform self care.Mali nue home bowel meds:Imodi um 2 mg q6 hr prnreglan 10 mg q6 hr prnlomotil bid prnlactulo se 15 ml qd prnzofran 8 mg qid prncolace 100 mg bid prn Headache 68544972 R51.9 ??On B2 400 mg qd - will continue Hypokalemia 09381313 E87 .6 On KCL 20 meq qdMonitor BMP as outpt. Acute COVID-19 146414763 8 U07.1 Tested + on 05/05 now considered recovered with mild courseComp leted molnupirav ir 800 mg BID x 5 dayshalluc inations seem resolved, likely r/t covid? with underlying dementiamo nitor as outpt. for sequelae Altered mental status 41 4076085 R41.82 Likely due to Covid.Fair ly oriented right now, but apparently had some hallucinat ions earlier.Co ntinue clonazepam 1 mg q 8 hrs prn agitation in addition to usual 1 mg BID as noted below.Reor ient as needed.Mon willyr.Attem pting to obtain UA C&S prior to d/c home, but pt. uncoop. with providing spec. at this time.Stephania roper feels she will do better once back in her home environmen t. Health Concerns Section Related Observation LastModified by Organization Detai ls LastModified Time None Recorded Concern Status LastModified by Organization Details LastModified Time None Recorded Advance Directives Directive Y: Payers Encounter Date Sequence Insurance Name Policy Number Policy Crystal Covered Member ID Crystal Member ID Guarantor Name 04/30/2024 2 [place] Claire Duplisea [id number] Claire Duplisea 04/30/2024 1 [place] [employer] Claire Duplisea [id number] Claire Duplisea 05/06/2024 2 [place] Claire Duplisea [id number] Claire Duplisea 05/06/2024 1 [place] [employer] Claire Duplisea [id number] Claire Duplisea 05/07/2024 2 [place] Claire Duplisea [id number] Claire Duplisea 05/07/2024 1 [place] [employer] Claire Duplisea [id number] Claire Duplisea 05/13/2024 2 [place] Claire Duplisea [id number] Claire Duplisea 05/13/2024 1 [place] [employer] Claire Duplisea [id number] Claire Duplisea 05/16/2024 2 [place] Claire Duplisea [id number] Claire Duplisea 05/16/2024 1 [place] [employer] Claire Duplisea [id number] Claire Duplisea Notes Date Note Type Note Provider Name and Address Organization Details Recorded Time 04/30/2024 text/html Claire is seen to day for initial intake. She is a 58 yo lady, admitted today to [facility] from [facility] for continued care and rehab after an ER eval due to back pain. She presented to [facility] 04/28/24 with worsening back pain x 2 [...] CHF, restrictive lung disease, COPD, adentulous, COVID, 2019, O2 dependent, pericardial effusion, HLD, HTN, PVD, PNA, adenoCa sigmoid colon s/p colectomy, hypernatrtemia, GI bleed, UTI, IVY, Left lower lung Ca s/ lobectomy, GERD, acute on chronic resp. failure, obesity, rotator cuff strain, RLS, fibromyalgia, renal failure, PTSD, CADMOLST: DAYNE GARRIDO NP [address] [facility], [address], [place], [address], [facility] [employer] 04/30/2024 13:45:18 05/06/2024 text/html Claire is seen to day for an acute rounding PMH: chronic confusion, bipolar/depression, smoker, chronic back pain, colostomy, polysubstance abuse binge pattern, AF RVR, CHF, restrictive lung disease, COPD, adentulous, COVID, 2020, O2 dependent, pericardial effusion, HLD, HTN, PVD, PNA, adenoCa sigmoid colon s/p colectomy now in remission, hypernatremia, GI bleed, UTI, IVY, Left lower lung Ca s/ lobectomy, GERD, acute on chronic resp. failure, obesity, rotator cuff strain, RLS, fibromyalgia, renal failure, PTSD, CAD Claire is a 58 yo lady, admitted to [facility] from [facility] on 04/30 for continued care and rehab after an ER eval due to back pain. Per summary: She initially presented to [facility] 04/28/24 with worsening back pain x 2 weeks after sustaining a fall at home. ER paperwork reviewed, appears work up unremarkable but would benefit from PT OT due to gross deconditioning. Pt is seen today for nursing and family concern of new covid diagnosis on 05/05 and increased confusion today. Per ER notes; her son in August of 2023 and she has significant grief. She has been in stage 4 cancer and now in remission as of 04/10/24 per note in ER. On exam, Claire is walking up and down the halls today with surgical mask on and is refusing to listen to staff to stay in isolation in her room. Her is here and concerned she has some increased confusion. Labs reviewed as below today and unremarkable. HODGE: mod. fall riskMOLST: DNI Nadiya Jorgensen, PRACTICE SPECIALIST [address] [facility], [address], [place], [address], [facility] [employer] 05/06/2024 12:02:31 05/07/2024 text/html This is a compli cated 58 yo woman who is here for rehab after an ED visit forworsening back pain. [facility] for AMS.Per d/c summary:58F PMH [...] rule out chemo induced encephalopathy or pres. Hospital courseThe patient was evaluated primarly for Acute toxic\metabolic [...] on discharge with Cefpodoxime for 5 more days. For acuteUrinary retention she was placed on straight cath as she Failed voiding trial post Polo removal. evaluated by urologist who recommended placement a polo catheter with a cap and regular emptying every 6 hours. Started on Bethanechol with a plan to follow up with dr Benitez in office in 2 weeks for voiding trial and removal of the catheter. [facility] increasing back pain after a fall 2 wks [employer]. Labs and imaging were unremarkable and decision made for STR.Transferred here on 04/30. She had been working with rehab and making some progress, but then yest became more confused and had onset of a cough. She tested + for Covid. says she is much more confused than baseline.When I see her she is sitting on the side of the bed, having just finished supper. She says she feels draggy and is coughing up green sputum. No increased SOB.She says back is still hurting, not much better, but she did walk with rehab today and felt good about that. 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 Brynn Allen MD [address] [place] [address], [address], [place], [address], [employer] 05/07/2024 18:21:03 05/13/2024 text/html Claire is seen to day [...] a 58 yo lady, admitted today to [facility] from [facility] for continued care and rehab after an ER eval due to back pain and weakness and altered mental status. . She presented to [facility] on 04/28/24 with worsening back pain x 2 weeks after sustaining a fall at home. Work up unremarkable but would benefit from PT OT due to gross deconditioning. Details below. Since here at [facility] she has been working with therapy [...] room. of note:[facility].Per d/c summary:58F PMH [...] of the catheter. HODGE: mod. fall riskMOLST: DNBrice Jorgensen, SADE [address] [facility], [address], [place], [address], [facility] [employer] 05/14/2024 09:27:31 05/16/2024 text/html Claire is seen to day for discharge.She is going home tomorrow with support of family and services. She is a 58 yo lady, admitted 04/30/24 to [facility] from [facility] for continued care and rehab after an ER eval due to back pain.She presented to [facility] 04/28/24 with worsening back pain x 2 weeks after sustaining a fall at home. ER paperwork reviewed, appears work up unremarkable but would benefit from PT OT due to gross deconditioning. While here, Claire has participated in rehab, has made progress - more active, less c/o pain.Polo removed (placed due to retention during first hosp.), now voiding without problems.Recently tested positive for covid (05/05), treated with molnupiravir. Sx. overall mild, some increased confusion noted. Now testing negative. Attempted to obtain UA C&S to check for UTI due to increased confusion, but pt. not cooperative with providing spec. so far. feels she will do better at home, and is requesting discharge tomorrow. has made arrangements, VNA and GSSS in place, and PCP appt. set for Sunday 05/20. [employer] stable.Upon exam, Claire is sitting in bed. Pleasantly confused, wants to go home today. She feels well and denies any complaints at this time. HODGE: mod. fall riskPMH: chronic confusion, bipolar/depression, smoker, chronic back pain, [...] PTSD, CADMOLST: DNI DAVID GARRIDO NP [address] [facility], [address], [place], [address], [facility] [employer] 05/16/2024 13:17:01 OBGyn Episode No OBEpisode recorded.
--- OUTSIDE RECORDS SUMMARY | 2024-07-23 09:26 | XMS_ITS | Encounter Summary ---
Author Organization [facility] Address [address] [place] [address] Care Team Providers Care Education Adviser Name Role Phone Cassandra Oconnor MD Primary Care Provider [phone] Encounter Details Date Type Department Care Team (Late st Contact Info) Description 05/03/2024 Lab Requisition [facility] - Main Lab [address] [place] [address] Ray Lee MD [address] [place] [address] [address] [facility] [address] Other acute coordinator (current) drug therapy Social History Tobacco Use [...] Associated Diagnosis Comments COMPLETE BLOOD COUNT Routine 05/03/2024 5:52 AM EST Other intermediate (current) drug therapy VALPROIC ACID LEVEL, TOTAL Routine 05/03/2024 5:52 AM EST Other intermediate (current) drug therapy COMPREHENSIVE METABOLIC PANEL Routine 05/03/2024 5:52 AM EST Other intermediate (current) drug therapy documented in this encounter Results * Valproic acid level, total (05/03/2024 5:52 AM EST) Pathologist [facility] Valproic Acid, Total 77 50 - 100 mcg/mL LAB CHEMISTRY METHOD 05/03/2024 8:18 AM [facility] Blood Venous blood specimen / Unknown Venipuncture / Unknown 05/03/2024 5:52 AM EST 05/03/2024 7:30 AM EST us Ray Lee MD LAB BLOOD ORDERABLES Final Resul t [facility] [address] [place] [address], [place] [phone] * (ABNORMAL) Comprehensive metabolic panel (05/03/2024 5:52 AM EST) [facility] Sodium 135 133 - 145 mmol/L LAB CHEMISTRY METHOD 05/03/2024 8:18 AM [facility] Potassium 4.5 3.5 - 5.5 mmol/L LAB CHEMISTRY METHOD 05/03/2024 8:18 AM [facility] Chloride 101 96 - 110 mmol/L LAB CHEMISTRY METHOD 05/03/2024 8:18 AM [facility] CO2 27 21 - 32 mmol/L LAB CHEMISTRY METHOD 05/03/2024 8:18 AM [facility] Anion Gap 7 3 - 11 LAB CHEMISTRY METHOD 05/03/2024 8:18 AM [facility] Glucose 97 70 - 100 mg/dL LAB CHEMISTRY METHOD 05/03/2024 8:18 AM [facility] BUN 19 5 - 25 mg/dL LAB CHEMISTRY METHOD 05/03/2024 8:18 AM [facility] Creatinine 0.90 0.50 - 1.10 mg/dL LAB CHEMISTRY METHOD 05/03/2024 8:18 AM [facility] eGFR 73 >=60 mL/min/1. 73m2 LAB CHEMISTRY METHOD 05/03/2024 8:18 AM [facility] Comment:Calculation based on the??Chronic Kidney Disease Epidemiology Collaboration (CKD-EPI) equation refit??without adjustment for race. BUN/Creatinine Ratio 21.1 LAB CHEMISTRY METHOD 05/03/2024 8:18 AM [facility] Calcium 9.0 8.5 - 10.5 mg/dL LAB CHEMISTRY METHOD 05/03/2024 8:18 AM [facility] AST (SGOT) 34 10 - 42 unit/L LAB CHEMISTRY METHOD 05/03/2024 8:18 AM [facility] ALT (SGPT) 13 10 - 60 unit/L LAB CHEMISTRY METHOD 05/03/2024 8:18 AM [facility] Alkaline Phosphatase 81 42 - 121 unit/L LAB CHEMISTRY METHOD 05/03/2024 8:18 AM [facility] Total Protein 6.1 6.0 - 8.0 g/dL LAB CHEMISTRY METHOD 05/03/2024 8:18 AM [facility] Albumin 3.1(L) 3.2 - 5.0 g/dL LAB CHEMISTRY METHOD 05/03/2024 8:18 AM [facility] Total Bilirubin 0.2 0.0 - 1.4 mg/dL LAB CHEMISTRY METHOD 05/03/2024 8:18 AM [facility] Blood Venous blood specimen / Unknown Venipuncture / Unknown 05/03/2024 5:52 AM EST 05/03/2024 7:30 AM EST us Ray Lee MD LAB BLOOD ORDERABLES Final Resul t [facility] [address] [place] [address], * (ABNORMAL) Complete blood count (05/03/2024 5:52 AM EST) WBC 10.2 4.8 - 10.8 K/mcL LAB HEMETOLOGY METHOD 05/03/2024 7:53 AM [facility] RBC 3.60(L) 3.80 - 4.80 M/mcL LAB HEMETOLOGY METHOD 05/03/2024 7:53 AM [facility] Hemoglobin 11.7 11.5 - 16.0 g/dL LAB HEMETOLOGY METHOD 05/03/2024 7:53 AM [facility] Hematocrit 38.3 35.0 - 47.0 % LAB HEMETOLOGY METHOD 05/03/2024 7:53 AM [facility] MCV 106.1(H) 79.0 - 98.0 FL LAB HEMETOLOGY METHOD 05/03/2024 7:53 AM [facility] MCH 32.4(H) 27.0 - 32.0 pcg LAB HEMETOLOGY METHOD 05/03/2024 7:53 AM [facility] MCHC 30.5(L) 32.0 - 37.0 g/dL LAB HEMETOLOGY METHOD 05/03/2024 7:53 AM [facility] RDW 17.5(H) 11.0 - 15.0 % LAB HEMETOLOGY METHOD 05/03/2024 7:53 AM [facility] Platelets 275 130 - 400 K/mcL LAB HEMETOLOGY METHOD 05/03/2024 7:53 AM [facility] MPV 10.6 7.0 - 11.0 FL LAB HEMETOLOGY METHOD 05/03/2024 7:53 AM [facility] NRBC 0.0 <1.0 % LAB HEMETOLOGY METHOD 05/03/2024 7:53 AM [facility] NRBC Absolute 0.00 <0.10 K/mcL LAB HEMETOLOGY METHOD 05/03/2024 7:53 AM [facility] Blood Venous blood specimen / Unknown Venipuncture / Unknown 05/03/2024 5:52 AM EST 05/03/2024 7:30 AM EST us Ray Lee MD LAB BLOOD ORDERABLES Final Resul t [facility] [address] [place] [address], documented in this encounter Visit Diagnoses Diagnosis Other intermediate (current) drug therapy documented in this encounter Care Teams Education Adviser Relationship Specialty Start Date End Date Cassandra Oconnor MD [address] [place] [address] PCP - General 10/26/10 documented as of this encounter
--- OUTSIDE RECORDS SUMMARY | 2024-07-23 09:26 | XMS_ITS | Clinical Summary ---
Author Organization [employer] Address [address] [place] [address] [address] [place] [address] Care Team Providers Care Media Producer Name Role Phone Unavailable Primary Care Provider Unavailabl e Social History Tobacco Use Types Packs/Day Years Used Date Smoking Tobacco: Never Assessed Comments Unknown Sex and Gender Information Value Date Recorded Sex Assigned at Female 04/04/2022 10:21 AM EDT Legal Sex Female 10:21 AM EDT Gender Identity Female 04/04/2022 10:21 AM EDT Sexual Orientation Choose not to disclose 2021 10:21 AM EDT Last Filed Vital Signs Vital Sign Reading Time Taken Comments Blood Pressure 136/84 03/09/2021 12:10 AM EDT Pulse 78 03/09/2021 12:10 AM EDT Temperature - - Respiratory Rate - - Oxygen Saturation - - Inhaled Oxygen Concentration - - Weight 83.2 kg (183 lb 6.4 oz) 03/09/2021 12:10 AM EDT Height 162.6 cm (5' 4 ) 03/09/2021 12:10 AM EDT Body Mass Index 31.48 03/09/2021 12:10 AM EDT Plan of Treatment Health Maintenance Due Date Last Done Comments CT Colonography 1963 Colonoscopy 1963 Colorectal Cancer Screening 1963 Depression Screening 1963 FIT DNA/Cologuard 1963 FIT 1963 FOBT 1963 Sigmoidoscopy 1963 Alcohol/Substance Use Screening 1975 Tobacco Screening 1975 Pap Smear 1984 Cervical Cancer Screening 1993 HPV/Cotest 1993 Mammogram 2003 Pneumococcal Vaccine: 50+ Years (2 of 2 - PCV) 2013 04/25/2010, 08/05/2009 Zoster Vaccines (1 of 2) 2013 COVID-19 Vaccine (3 - season) 2024 09/24/2020, 08/12/2020 Influenza Vaccine (#1) 2024 , 03/22/2019, 03/19/2018, Additional history exists DTaP/Tdap/Td Vaccines (2 - Td or Tdap) 08/04/2025 08/05/2015 RSV Patients and Patients Aged 60 years or older (1 - 1-dose 75+ series) 2038 Pneumococcal Vaccine: Pediatrics (0 to 5 Years) and At-Risk Patients (6 to 49) Years) Aged Out 04/25/2010, 08/05/2009 No longer eligibl e based on patient's age to complete this topic HIB Vaccines Aged Out No longer eligi ble based on patient's age to complete this topic HPV Vaccines Aged Out No longer eligi ble based on patient's age to complete this topic Hepatitis A Vaccines Aged Out No long er eligible based on patient's age to complete this topic Hepatitis B Vaccines Aged Out No long er eligible based on patient's age to complete this topic IPV Vaccines Aged Out No longer eligi ble based on patient's age to complete this topic Meningococcal Vaccine Aged Out No sanju aj eligible based on patient's age to complete this topic RSV under 20 months Aged Out No longe r eligible based on patient's age to complete this topic Rotavirus Vaccines Aged Out No longer eligible based on patient's age to complete this topic
--- OUTSIDE RECORDS SUMMARY | 2024-07-23 09:26 | XMS_ITS | Clinical Summary ---
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 05/16/2024 Lab Requisition [facility] Lab [address] [place] [address] Ray Lee MD Other chcf (current) drug therapy 05/09/2024 Lab Requisition [facility] Lab [address] [place] [address] Ray Lee MD 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 Metal hardware in place. HYSTERECTOMY PROCEDURE: HISTORICAL HYSTERECTOMY APPENDECTOMY PROCEDURE: HISTORICAL APPENDECTOMY CHOLECYSTECTOMY PROCEDURE: HISTORICAL CHOLECYSTECTOMY BACK SURGERY PROCEDURE: HISTORICAL BACK SURGERY APPENDECTOMY PROCEDURE: SD APPENDECTOMY CHOLECYSTECTOMY PROCEDURE: SD LAPAROSCOPY SURG CHOLECYSTECTOMY Medical History Medical History Date Comments Other and unspecified hyperlipidemia 08/31/2006 DX:Other and unspecified hyperlipidemia Lumbago 08/31/2006 DX:Lumbago; COMM ENT: Failed back. Surgery . Depressive disorder, not els ewhere classified 08/31/2006 DX:Depressive disorder, not elsewhere classified Tobacco use disorder 08/31/2006 DX:Tobacco use disorder Fibromyalgia 10/25/2007 DX:Fibromyalgia Anxiety 07/12/2007 DX:Anxiety Lumbar disc disease 01/14/2008 DX:Lumbar di sc disease; COMMENT: Surgery X 2, hardware placed 04/2004 Coronary artery disease 01/14/2008 DX:Coron sandra artery disease; COMMENT: 50% single vessel on cath, 04/11 Depression 08/31/2011 DX:Depression Hypertension 08/31/2011 DX:Hypertension Family History Medical History Relation Name Comments Hypertension Daughter Hypertension Mother Uterine cancer Mother Diabetes Sister Hypertension Son Relation Name Status Comments Daughter Father Alive High cholestero l Mother CAD Sister Son Social History Tobacco Use Types Packs/Day Years Used Date Smoking Tobacco: Former Cigarettes Alcohol Use Standard Drinks/Week Comments No 0 (1 standard drink = 0.6 oz pur e alcohol) Comments Unknown Sex and Gender Information Value Date Recorded Sex Assigned at Not on file Legal Sex Female 4:08 PM EST Gender Identity Not on file Sexual Orientation Not on file Obstetrics History Last Filed Vital Signs Vital Sign Reading Time Taken Comments Blood Pressure 116/74 11/20/2023 10:25 AM EDT Si tting L Arm Pulse 65 11/20/2023 10:25 AM EDT Temperature - - Respiratory Rate - - Oxygen Saturation - - Inhaled Oxygen Concentration - - Weight 88.9 kg (196 lb) 11/20/2023 10:25 AM EDT Height 162.6 cm (5' 4 ) 11/20/2023 10:25 AM EDT Body Mass Index 33.64 11/20/2023 10:25 AM EDT Plan of Treatment Health Maintenance Due Date Last Done Comments Breast Cancer Screening 1963 Zoster Vaccines (1 of 2) 1982 Cervical Cancer Screening: Pap Smear 1984 Pneumococcal Vaccine: 50+ Years (3 of 3 - PCV) 04/25/2011 04/25/2010, 08/05/2009 Pneumococcal Vaccine: Pediatrics (0 to 5 Years) and At-Risk Patients (6 to 64 Years) (3 of 3 - PCV) 04/25/2011 04/25/2010, 08/05/2009 COVID-19 Vaccine (3 - Moderna risk series) 10/22/2020 09/24/2020, 08/12/2020 Cholesterol Screening (Lipid Panel) 05/18/2022 Colorectal Cancer Screening: Colonoscopy 05/18/2022 Depression Screening 05/18/2022 HIV Screening 05/18/2022 Hepatitis C Screening 05/18/2022 Medicare Annual Wellness Visit 05/18/2022 Social Influencers of Health Screening 05/18/2022 Influenza Vaccine (#1) 2024 9, 03/19/2018, 02/27/2017, Additional history exists Hypertension/CHF/CAD Annual BMP Blood Test 05/17/2025 05/17/2024, 05/10/2024, 05/07/2024, Additional history exists DTaP,Tdap,and Td Vaccines (2 - Td or Tdap) 08/04/2025 08/05/2015 RSV Immunization Patients 60+ Years Old (1 - 1-dose 75+ series) 2038 HIB Vaccines Aged Out No longer eligi [...] on patient's age to complete this topic MMR Vaccines Aged Out No longer eligi ble based on patient's age to complete this topic Meningococcal ACWY Vaccine Aged Out N o longer eligible based on patient's age to complete this topic Meningococcal B Vacine Aged Out No lo nger eligible based on patient's age to complete this topic RSV Immunization Patients Under 20 months Aged Out No longer eligible based on patient's age to complete this topic Varicella Vaccines Aged Out No longer eligible based on patient's age to complete this topic Procedures Procedure Name Priority Date/Time Associated Diagnosis Comments BASIC METABOLIC PANEL Routine 05/17/2024 6:14 AM EST 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 COMPLETE BLOOD COUNT Routine 05/17/2024 6:14 AM EST Other chcf (current) drug therapy BASIC METABOLIC PANEL Routine 05/10/2024 8:37 AM EST 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 COMPLETE BLOOD COUNT Routine 05/10/2024 8:37 AM EST 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 CBC WITH AUTO DIFFERENTIAL Routine 05/07/2024 7:55 AM EST Essential (primary) hypertension VALPROIC ACID LEVEL, TOTAL Routine 05/07/2024 7:55 AM EST Essential (primary) hypertension COMPREHENSIVE METABOLIC PANEL Routine 05/07/2024 7:55 AM EST Essential (primary) hypertension CBC AND DIFFERENTIAL Routine 05/07/2024 7:55 AM EST Essential (primary) hypertension VALPROIC ACID LEVEL, TOTAL Routine 05/03/2024 5:52 AM EST Other chcf (current) drug therapy COMPREHENSIVE METABOLIC PANEL Routine 05/03/2024 5:52 AM EST 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 WBC 9.7 4.8 - 10.8 K/mcL LAB HEMETOLOGY METHOD 05/17/2024 10:47 AM EST [facility] RBC 3.50(L) 3.80 - 4.80 M/mcL LAB HEMETOLOGY METHOD 05/17/2024 10:47 AM EST [facility] Hemoglobin 11.0(L) 11.5 - 16.0 g/dL LAB HEMETOLOGY METHOD 05/17/2024 10:47 AM EST [facility] Hematocrit 36.4 35.0 - 47.0 % LAB HEMETOLOGY METHOD 05/17/2024 10:47 AM [facility] MCV 103.7(H) 79.0 - 98.0 FL LAB HEMETOLOGY METHOD 05/17/2024 10:47 AM [facility] MCH 31.3 27.0 - 32.0 pcg LAB HEMETOLOGY METHOD 05/17/2024 10:47 AM [facility] MCHC 30.2(L) 32.0 - 37.0 g/dL LAB HEMETOLOGY METHOD 05/17/2024 10:47 AM [facility] RDW 17.7(H) 11.0 - 15.0 % LAB HEMETOLOGY METHOD 05/17/2024 10:47 AM [facility] Platelets 303 130 - 400 K/mcL LAB HEMETOLOGY METHOD 05/17/2024 10:47 AM [facility] MPV 11.1(H) 7.0 - 11.0 FL LAB HEMETOLOGY METHOD 05/17/2024 10:47 AM [facility] NRBC 0.0 <1.0 % LAB HEMETOLOGY METHOD 05/17/2024 10:47 AM [facility] NRBC Absolute 0.00 <0.10 K/mcL LAB HEMETOLOGY METHOD 05/17/2024 10:47 AM [facility] Blood Venous blood specimen / Unknown Venipuncture / Unknown 05/17/2024 6:14 AM EST 05/17/2024 10:14 AM EST us Ray Lee MD LAB BLOOD ORDERABLES Final Resul t [facility] [address] [place] [address], [place] [phone] * (ABNORMAL) Basic metabolic panel (05/17/2024 6:14 AM EST) Only the most recent of2 resultswithin the time period is included. Sodium 142 133 - 145 mmol/L LAB CHEMISTRY METHOD 05/17/2024 11:20 AM [facility] Potassium 4.6 3.5 - 5.5 mmol/L LAB CHEMISTRY METHOD 05/17/2024 11:20 AM [facility] Chloride 104 96 - 110 mmol/L LAB CHEMISTRY METHOD 05/17/2024 11:20 AM [facility] CO2 26 21 - 32 mmol/L LAB CHEMISTRY METHOD 05/17/2024 11:20 AM [facility] Anion Gap 12(H) 3 - 11 LAB CHEMISTRY METHOD 05/17/2024 11:20 AM [facility] Glucose 102(H) 70 - 100 mg/dL LAB CHEMISTRY METHOD 05/17/2024 11:20 AM [facility] BUN 17 5 - 25 mg/dL LAB CHEMISTRY METHOD 05/17/2024 11:20 AM [facility] Creatinine 0.87 0.50 - 1.10 mg/dL LAB CHEMISTRY METHOD 05/17/2024 11:20 AM [facility] eGFR 76 >=60 mL/min/1. 73m2 LAB CHEMISTRY METHOD 05/17/2024 11:20 AM [facility] Comment:Calculation based on the??Chronic Kidney Disease Epidemiology Collaboration (CKD-EPI) equation refit??without adjustment for race. BUN/Creatinine Ratio 19.5 LAB CHEMISTRY METHOD 05/17/2024 11:20 AM [facility] Calcium 9.1 8.5 - 10.5 mg/dL LAB CHEMISTRY METHOD 05/17/2024 11:20 AM [facility] Blood Venous blood specimen / Unknown Venipuncture / Unknown 05/17/2024 6:14 AM EST 05/17/2024 10:16 AM EST us Ray Lee MD LAB BLOOD ORDERABLES Final Resul t [facility] [address] [place] [address], [place] [phone] * (ABNORMAL) CBC auto differential (05/07/2024 7:55 AM EST) [facility] WBC 7.5 4.8 - 10.8 K/mcL LAB HEMETOLOGY METHOD 05/07/2024 10:31 AM [facility] RBC 3.60(L) 3.80 - 4.80 M/mcL LAB HEMETOLOGY METHOD 05/07/2024 10:31 AM [facility] Hemoglobin 11.5 11.5 - 16.0 g/dL LAB HEMETOLOGY METHOD 05/07/2024 10:31 AM EST [facility] Hematocrit 38.7 35.0 - 47.0 % [...] AM EST [facility] Basophils Absolute 0.09 0.00 - 0.20 K/[facility] LAB HEMETOLOGY METHOD 05/07/2024 10:31 AM EST [facility] Immature Granulocytes Absolute 0.20(H) 0.00 - 0.03 K/[facility] LAB HEMETOLOGY METHOD 05/07/2024 10:31 AM EST [facility] Blood Venous blood specimen / Unknown Venipuncture / Unknown 05/07/2024 7:55 AM EST 05/07/2024 10:01 AM EST us Ray Lee MD LAB BLOOD ORDERABLES Final Resul t Performing Organization Address City/[facility]/ZIP Co de Phone Number [facility] [address] [place] [address], [place] [phone] * Valproic acid level, total (05/07/2024 7:55 AM EST) Only the most recent of2 resultswithin the time period is included. Valproic Acid, Total 71 50 - 100 mcg/mL LAB CHEMISTRY METHOD 05/07/2024 10:47 AM EST [facility] Blood Venous blood specimen / Unknown Venipuncture / Unknown 05/07/2024 7:55 AM EST 05/07/2024 10:01 AM EST us Ray Lee MD LAB BLOOD ORDERABLES Final Resul t Performing Organization Address City/[facility]/ZIP Co de Phone Number [facility] [address] [place] [address], [place] [phone] * (ABNORMAL) Comprehensive metabolic panel (05/07/2024 7:55 AM EST) Only the most recent of2 resultswithin the time period is included. Sodium 137 133 - 145 mmol/L LAB CHEMISTRY METHOD 05/07/2024 10:52 AM EST [facility] Potassium 4.2 3.5 - 5.5 mmol/L [...] g/dL LAB CHEMISTRY METHOD 05/07/2024 10:52 AM EST [facility] Albumin 2.7(L) 3.2 - 5.0 g/dL LAB CHEMISTRY METHOD 05/07/2024 10:52 AM EST [facility] Total Bilirubin 0.4 0.0 - 1.4 mg/dL LAB CHEMISTRY METHOD 05/07/2024 10:52 AM EST [facility] Blood Venous blood specimen / Unknown Venipuncture / Unknown 05/07/2024 7:55 AM EST 05/07/2024 10:01 AM EST us Ray Lee MD LAB BLOOD ORDERABLES Final Resul t [facility] ([facility]) [facility] [address] [place] [address], from Last 3 Months Insurance MEDICARE MEDICAID - [place] Advance Directives Documents on File Type Date Recorded 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
--- OUTSIDE RECORDS SUMMARY | 2024-07-23 09:26 | XMS_ITS | Continuity of Care Document ---
Author Organization [address] [place] [address]- Care Team Providers Care Harmonic Analyst Name Role Phone Eboni STUART, Ward Larsen Primary Care Physician Encounter [facility] Date(s): 05/24/24 - 06/23/[address] [place], [place] [address] Encounter Type: Triage Allergies, Adverse Reactions, Alerts Substance Criticality Severity Reaction Reaction Severity Status cyclobenzaprine nausea Acti ve ibuprofen nausea Active penicillin 1 body rash Activ e sulfADIAZINE severe diarrhea A ctive Effexor unsure Active levoFLOXacin severe diarrhea A ctive fentaNYL hallucinations Act jake Topamax sleep walking Acti ve 1Tolerated zosyn [...] Ordered Repeat number: 1 Brava barrier rings (625755) Brava barrier rings (377250), See Instructions, # 20 each, Refills 11, [...] 2:54:00 PM EDT, Route to Pharmacy Electronically, [facility], Partial fill upon patient request if the prescription is for a schedule II opioid drug., 163, cm, 09/02/21 12:26:00 EDT, Height, 90.3, kg, 09/02/21 12:26:00 EDT, Dry Weight Start Date: 09/02/21 Status: Ordered Quantity: 60.0 Unit: capsule Repeat number: 4 Coloplast Sensura #28259 Coloplast Sensura #13332, See Instructions, # 20 each, Refills 11, [...] each Repeat number: 1 ium nitrile gloves #[id number] ium nitrile gloves #[id number], See Instructions, # 100 each, Refills 6, [...] tablet,12 Refills, Maintenance, 02/26/24 1:41:00 PM EDT, [id number], Partial fill upon patient request if the [...] Status: Ordered Repeat number: 1 nystatin topical 108623 u/gm cream 1 application, Topically, 2 times [...] Active Hypertension Confirmed Active Adenocarcinoma Confirmed Active Severe obesity (BMI 35.0-39.9) with comorbidity Confirmed Active 150% single vessel on cath 04/11 2Lumbar s/p surgery * 2 Patient Care team information Care Team Personnel Name: Emily Cordova RN Position: [facility] RN Member Role: Primary Care Nurse Name: Sussy Paredes RN Position: [facility] RN Member Role: Primary Care Nurse Name: Kamari Cordon RN Position: [facility] RN Member Role: Primary Care Nurse Name: Krys Coates RN Position: [facility] ED RN W/OE and Tasks Member Role: Primary Care Nurse Name: Elizabeth Olson RN Position: [facility] RN Supv Member Role: Primary Care Nurse Name: Katerin Sterling RN Position: [facility] RN Member Role: Primary Care Nurse Name: Miguel Angel Ravi RN Position: [facility] RN Member Role: Primary Care Nurse Name: Alta Ocampo RN Position: [facility] RN Member Role: Primary Care Nurse Name: Raya Sandoval RN Position: [facility] RN Member Role: Primary Care Nurse Name: Miriam Bishop RN Position: [facility] RN Member Role: Primary Care Nurse Name: Noy Johnson RN Position: [facility] RN Member Role: Primary Care Nurse Name: Ward Lyn NP Position: Reference Physician Member Role: PCP Address: [address] [place] [address] [address] [place] [address]- Telecom: Name: Tali Haile RN Position: [facility] RN Member Role: Primary Care Nurse Name: Tatianna Newby RN Position: [facility] SN RN Member Role: Primary Care Nurse Name: Polo Telles RN Position: [facility] RN Member Role: Primary Care Nurse Name: Aicha Castro RN Position: [facility] RN Member Role: Primary Care Nurse Name: Karol Mims RN Position: [facility] RN Member Role: Primary Care Nurse Name: Jessi Hernandez RN Position: [facility] RN Member Role: Primary Care Nurse Name: Thalia Brito RN Position: [facility] RN Member Role: Primary Care Nurse Name: Dena Navas RN Position: [facility] RN Member Role: Primary Care Nurse Name: Korin Walters RN Position: [facility] RN Member Role: Primary Care Nurse Name: Lian Washington RN Position: [facility] Hospital Thread Reeler Member Role: Primary Care Nurse Name: Timothy Foster RN Position: [facility] RN Member Role: Primary Care Nurse Care Team Related Persons Name: MCKAYLA VASQUEZ Insurance Providers Guarantor name: SEVERO DUPLISEA Health Plan Information #: 1 Payer: MEDICARE PART B OUTPT Member Number: NA Policy Number: NA Group Number: NA Health Plan Information #: 2 Payer: [facility] Member Number: NA Policy Number: NA Group Number: NA
--- OUTSIDE RECORDS SUMMARY | 2024-07-23 09:26 | XMS_ITS | Continuity of Care Document ---
Author Organization [address] [place] [address]- Care Team Providers Care Marriage And Family Counselor Name Role Phone Denny Armstrong MD, Chelsea Muniz Primary Care Physician Encounter [facility] Date(s): 06/17/24 - 07/17/[address] [place], [place] [address] Encounter Type: Triage Allergies, Adverse Reactions, Alerts Substance Criticality Severity Reaction Reaction Severity Status ibuprofen nausea Active penicillin 1 body rash Activ e sulfADIAZINE severe diarrhea A ctive cyclobenzaprine nausea Acti ve Effexor unsure Active Topamax sleep walking Acti ve fentaNYL hallucinations Act jake levoFLOXacin severe diarrhea A ctive 1Tolerated zosyn 07/2022 Immunizations Given and Recorded [...] Ordered Repeat number: 1 Brava barrier rings ([id number]) Brava barrier rings (314285), See Instructions, # 20 each, Refills 11, [...] 2:54:00 PM EDT, Route to Pharmacy Electronically, [facility], Partial fill upon patient request if the prescription is for a schedule II opioid drug., 163, cm, 09/02/21 12:26:00 EDT, Height, 90.3, kg, 09/02/21 12:26:00 EDT, Dry Weight Start Date: 09/02/21 Status: Ordered Quantity: 60.0 Unit: capsule Repeat number: 4 Coloplast Sensura #46231 [employer] #03362, See Instructions, # 20 each, Refills 11, [...] each Repeat number: 1 ium nitrile gloves #[id number] ium nitrile gloves #[id number], See Instructions, # 100 each, Refills 6, [...] tablet,12 Refills, Maintenance, 02/26/24 1:41:00 PM EDT, [id number], Partial fill upon patient request if the [...] Status: Ordered Repeat number: 1 nystatin topical 162694 u/gm cream 1 application, Topically, 2 times [...] Team Personnel Name: Emily Cordova RN Position: [facility] RN Member Role: Primary Care Nurse Name: Sussy Paredes RN Position: [facility] RN Member Role: Primary Care Nurse Name: Kamari Cordon RN Position: [facility] RN Member Role: Primary Care Nurse Name: Krys Coates RN Position: [facility] ED RN W/OE and Tasks Member Role: Primary Care Nurse Name: Elizabeth Olson RN Position: [facility] RN Supv Member Role: Primary Care Nurse Name: Katerin Sterling RN Position: [facility] RN Member Role: Primary Care Nurse Name: Miguel Angel Ravi RN Position: [facility] RN Member Role: Primary Care Nurse Name: Alta Ocampo RN Position: [facility] RN Member Role: Primary Care Nurse Name: Raya Sandoval RN Position: [facility] RN Member Role: Primary Care Nurse Name: Miriam Bishop RN Position: [facility] RN Member Role: Primary Care Nurse Name: Noy Johnson RN Position: [facility] RN Member Role: Primary Care Nurse Name: Tali Haile RN Position: [facility] RN Member Role: Primary Care Nurse Name: Tatianna Newby RN Position: [facility] SN RN Member Role: Primary Care Nurse Name: Polo Telles RN Position: [facility] RN Member Role: Primary Care Nurse Name: Aicha Castro RN Position: [facility] RN Member Role: Primary Care Nurse Name: Karol Mims RN Position: [facility] RN Member Role: Primary Care Nurse Name: Jessi Hernandez RN Position: [facility] RN Member Role: Primary Care Nurse Name: Thalia Brtio RN Position: [facility] RN Member Role: Primary Care Nurse Name: Chelsea Miles MD Position: Reference Physician Member Role: PCP Address: [address] [place] [address] [place] [id number]- Telecom: Name: Dena Navas RN Position: [facility] RN Member Role: Primary Care Nurse Name: Korin Walters RN Position: [facility] RN Member Role: Primary Care Nurse Name: Lian [place] RN Position: [facility] Hospital Rn Gyn Member Role: Primary Care Nurse Name: Timothy Foster RN Position: [facility] RN Member Role: Primary Care Nurse Care Team Related Persons Name: MCKAYLA VASQUEZ Insurance Providers Guarantor name: SEVERO [facility]AT[facility]UM [facility] Plan Information #: 1 Payer: MEDICARE PART B OUTPT Member Number: JAMES Policy Number: JAMES Group Number: NA Health Plan Information #: 2 Payer: [facility] Member Number: NA Policy Number: NA Group Number: NA
--- OUTSIDE RECORDS SUMMARY | 2024-07-23 09:26 | XMS_ITS | Continuity of Care Document ---
Author Organization [address] [place] [address]- Care Team Providers Care Tire Bagger Name Role Phone Eboni STUART, Ward Larsen Primary Care Physician Encounter [facility] [place] Date(s): 06/03/24 - 07/03/[address] [place], [place] [address] Encounter Type: Triage Allergies, Adverse Reactions, Alerts Substance Criticality Severity Reaction Reaction Severity Status Effexor unsure Active ibuprofen nausea Active penicillin 1 body rash Activ e sulfADIAZINE severe diarrhea A ctive cyclobenzaprine nausea Acti ve levoFLOXacin severe diarrhea A ctive Topamax sleep walking Acti ve fentaNYL hallucinations [...] Ordered Repeat number: 1 Brava barrier rings ([id number]) Brava barrier rings ([id number]), See Instructions, # 20 each, Refills 11, [...] 2:54:00 PM EDT, Route to Pharmacy Electronically, [facility], Partial fill upon patient request if the prescription is for a schedule II opioid drug., 163, cm, 09/02/21 12:26:00 EDT, Height, 90.3, kg, 09/02/21 12:26:00 EDT, Dry Weight Start Date: 09/02/21 Status: Ordered Quantity: 60.0 Unit: capsule Repeat number: 4 [employer] Sensura #49022 [employer] #80932, See Instructions, # 20 each, Refills 11, [...] each Repeat number: 1 ium nitrile gloves #[id number] ium nitrile gloves #[id number], See Instructions, # 100 each, Refills 6, [...] tablet,12 Refills, Maintenance, 02/26/24 1:41:00 PM EDT, [id number], Partial fill upon patient request if the [...] Status: Ordered Repeat number: 1 nystatin topical [id number] u/gm cream 1 application, Topically, 2 times [...] Care Nurse Name: Sussy Paredes RN Position: [facility] RN Member Role: Primary Care Nurse Name: Kamari Cordon RN Position: [facility] RN Member Role: Primary Care Nurse Name: Krys Coates RN Position: [facility] ED RN W/OE and Tasks Member Role: Primary Care Nurse Name: Elizabeth Olson RN Position: [facility] RN Supv Member Role: Primary Care Nurse Name: Katerin Sterling RN Position: [facility] RN Member Role: Primary Care Nurse Name: Miguel Angel Ravi RN Position: [facility] RN Member Role: Primary Care Nurse Name: Alta Ocampo RN Position: [facility] RN Member Role: Primary Care Nurse Name: Raya Sandoval RN Position: [facility] RN Member Role: Primary Care Nurse Name: Miriam Bishop RN Position: [facility] RN Member Role: Primary Care Nurse Name: Noy Johnson RN Position: [facility] RN Member Role: Primary Care Nurse Name: Ward Lyn NP Position: Reference Physician Member Role: PCP Address: [address] [place] [address] [address] [place] [address]- Telecom: Name: Tali Haile RN Position: [facility] RN Member Role: Primary Care Nurse Name: Tatianna Newby RN Position: [facility] SN RN Member Role: Primary Care Nurse Name: Polo Telles RN Position: [facility] RN Member Role: Primary Care Nurse Name: Aicha Castro RN Position: [facility] RN Member Role: Primary Care Nurse Name: Karol Mims RN Position: [facility] RN Member Role: Primary Care Nurse Name: Jessi Hernandez RN Position: [facility] RN Member Role: Primary Care Nurse Name: Thalia Brito RN Position: [facility] RN Member Role: Primary Care Nurse Name: Dena Navas RN Position: [facility] RN Member Role: Primary Care Nurse Name: Korin Walters RN Position: [facility] RN Member Role: Primary Care Nurse Name: Lian Washington RN Position: [facility] Hospital Film Printer Member Role: Primary Care Nurse Name: Timothy Foster RN Position: [facility] RN Member Role: Primary Care Nurse Care Team Related Persons Name: MCKAYLA VASQUEZ Insurance Providers Guarantor name: SEVERO DUPLISEA Health Plan Information #: 1 Payer: MEDICARE PART B OUTPT Member Number: NA Policy Number: NA Group Number: NA Health Plan Information #: 2 Payer: [facility] Member Number: NA Policy Number: NA Group Number: NA
--- OUTSIDE RECORDS SUMMARY | 2024-07-23 09:26 | XMS_ITS | Encounter Summary ---
Author Organization [employer] Address [address] [place] [address] [place] [address] Care Team Providers Care Hyperion Administrator Name Role Phone Unavailable Primary Care Provider Unavailabl e Reason for Visit * Reason Comments Med Refill Encounter Details Date Type Department Care Team (Late st Contact Info) Description 07/03/2022 Refill [facility] [address] [place] [address] Cassandra Oconnor MD [address] [place] [address] Social History Tobacco Use Types Packs/Day Years Used Date Smoking Tobacco: Never Assessed Comments Unknown Sex and Gender Information Value Date Recorded Sex Assigned at Female 04/04/2022 10:21 AM EDT Legal Sex Female 10:21 AM EDT Gender Identity Female 04/04/2022 10:21 AM EDT Sexual Orientation Choose not to disclose 2021 10:21 AM EDT documented as of this encounter Plan of Treatment Not on file documented as of this encounter Visit Diagnoses Not on filedocumented in this encounter
--- OUTSIDE RECORDS SUMMARY | 2024-07-23 09:26 | XMS_ITS ---
Author Organization [facility] Address Unknown Allergies, Adverse Reactions, Alerts Substance Reaction Status Noted Date Resolved Date Venlafaxine active 04/30/2020 Topiramate active 04/30/2020 Penicillins active 04/30/2020 Fentanyl active 04/30/2020 Cyclobenzaprine active 04/30/2020 Problems Problem Status Start Date End Date ACUTE RESPIRATORY FAILURE, U NSPECIFIED WHETHER WITH HYPOXIA OR HYPERCAPNIA (Primary) (J96.00 - ICD-10-CM) ACTIVE 2019 UNSPECIFIED BACTERIAL PNEUMONIA (J15.9 - ICD-10-CM) AC TIVE 04/30/2020 CHRONIC OBSTRUCTIVE PULMONAR Y DISEASE, UNSPECIFIED (J44.9 - ICD-10-CM) ACTIVE 04/30/2020 ACUTE ON CHRONIC DIASTOLIC ( CONGESTIVE) HEART FAILURE (I50.33 - ICD-10-CM) ACTIVE 04/30/2020 COVID-19 (U07.1 - ICD-10-CM) ACTIVE 05/14/2020 OBSTRUCTIVE SLEEP APNEA (DUKE LT) (PEDIATRIC) (G47.33 - ICD-10-CM) ACTIVE 04/30/2020 RESTLESS LEGS SYNDROME (G25.81 - ICD-10-CM) ACTIVE 04/30/2020 ESSENTIAL (PRIMARY) HYPERTENSION (I10 - ICD-10-CM) ACT AURA 04/30/2020 GENERALIZED ANXIETY DISORDER (F41.1 - ICD-10-CM) ACTIV E 04/30/2020 BIPOLAR DISORDER, UNSPECIFIED (F31.9 - ICD-10-CM) ACTI VE 04/30/2020 Results * Individual Tests: COVID Screening Performed by: Quidel Component Value Range Date SARS coronavirus+SARS coronavirus 2 Ag Negative 05/13/2020 12:00 am EST * Individual Tests: COVID Screening Performed by: Quidel Component Value Range Date SARS coronavirus+SARS coronavirus 2 Ag Negative 05/11/2020 12:00 am EST * Individual Tests: COVID Screening Performed by: Quidel Component Value Range Date SARS coronavirus+SARS coronavirus 2 Ag Negative 05/09/2020 12:00 am EST * Individual Tests: COVID Screening Performed by: Quidel Component Value Range Date SARS coronavirus+SARS coronavirus 2 Ag Negative 05/04/2020 12:00 am EST * Individual Tests: COVID Screening Performed by: Quidel Component Value Range Date SARS coronavirus+SARS coronavirus 2 Ag Negative 05/03/2020 12:00 am EST * Individual Tests: COVID Screening Performed by: Quidel Component Value Range Date SARS coronavirus+SARS coronavirus 2 Ag Negative 04/30/2020 12:00 am EST Encounters Encounter Performer Performer Role Encounter Diagnoses Location Date Discharge - Discharged / Transferred to another hospital - [facility] - Private home/apt. with home health services [facility] 04/30/2020 05:34 pm EST - 05/15/2020 02:27 pm EST Immunizations Vaccine Date Pneumovax Dose 1 04/25/2010 12:00 am EST TB 2 Step Mantoux Skin Test 04/30/2020 0 7:30 pm EST TDAP(tetanus/dipth/pertuss) 08/05/2015 1 2:00 am EST Influenza (high dose) 03/22/2019 12:00 a m EDT Influenza (standard dose syringe) 2019 10:00 am EST Social History
== END 2024-07-23 09:35 | disposition home or self-care (01) ==
PROVIDERS: PCP Internal Medicine; Visit Provider Internal Medicine
DX: Z01.818 Encounter for other preprocedural examination (principal); R10.13 Epigastric pain; M25.512 Pain in left shoulder; F32.1 Major depressive disorder, single episode, moderate; I48.0 Paroxysmal atrial fibrillation; C34.32 Malignant neoplasm of lower lobe, left bronchus or lung; C18.7 Malignant neoplasm of sigmoid colon; I50.9 Heart failure, unspecified; J44.1 Chronic obstructive pulmonary disease with (acute) exacerbation; I73.9 Peripheral vascular disease, unspecified

== ENCOUNTER → 2024-07-23 08:55 | Outpatient (BNVA) | payer MEDICARE, MEDICAID, SELFPAY | PROVIDERS: PCP Internal Medicine; Visit Provider Internal Medicine | DX: Z01.818 Encounter for other preprocedural examination (principal); R10.13 Epigastric pain; M25.512 Pain in left shoulder; F32.1 Major depressive disorder, single episode, moderate; I48.0 Paroxysmal atrial fibrillation; C34.32 Malignant neoplasm of lower lobe, left bronchus or lung; C18.7 Malignant neoplasm of sigmoid colon; I50.9 Heart failure, unspecified; J44.1 Chronic obstructive pulmonary disease with (acute) exacerbation; I73.9 Peripheral vascular disease, unspecified | CPT/HCPCS: 96127; 99212 ==

== ENCOUNTER → 2024-08-01 14:20 | Outpatient (REF) | payer MEDICARE, MEDICAID, SELFPAY ==
--- NOTE | 2024-08-01 14:39 | ECG_ITS ---
Test Reason : preop Blood Pressure : */* mmHG Vent. Rate : 91 BPM Atrial Rate : 91 BPM P-R Int : 146 ms QRS Dur : 76 ms QT Int : 388 ms P-R-T Axes : 58 53 33 degrees QTcB Int : 477 ms Normal sinus rhythm Cannot rule out Anterior infarct , age undetermined Abnormal ECG When compared with ECG of 14-Apr-2024 14:51, No significant change was found Referred By: Chelsea Armstrong Electronically Signed By: Soto Jaquez
--- OUTSIDE RECORDS SUMMARY | 2024-08-01 17:28 | XMS_ITS | Encounter Summary ---
Author Organization [employer] Address [address] [place] [address] [address] [place] [address] Care Team Providers Care Induction Machine Setter Name Role Phone Unavailable Primary Care Provider Unavailabl e Reason for Visit * Reason Comments Med Refill Encounter Details Date Type Department Care Team (Late st Contact Info) Description 07/03/2022 Refill [facility] [address] [place] [address] Cassandra Oconnor MD [address] [place] [address] Social History Tobacco Use Types Packs/Day Years [...]
--- OUTSIDE RECORDS SUMMARY | 2024-08-01 17:28 | XMS_ITS | Data Portability ---
Author Organization [facility], Main Office Address [address] [facility], [address] [place] [address] Care Team Providers Care Delivery Man Name Role Phone SUPRIYA GARCIA - 2ND FLOOR OTHER MICHELLE CASTANON Primary Care Provider Assessment Encounter Date Assessment Date Assessment LastModified by Organization Details LastModified Time 05/16/2024 05/16/2024 45 mins. spent on coordination of discharge [email or web address] Not available 05/16/2024 13:15:07 Plan of Treatment [...] Time Acute hypercapn ic respirato ry failure 148952900 Active 2019 Janna Triana [address] [facility], [address], [place], [address], [facility] 0 13:33:36 Bipolar disorder 59399504 Active 2019 and PTSD DAVID GARRIDO NP [address] [facility], [address], [place], [address], [facility] 4 11:40:12 Essential hypertens ion 00970856 Active 2019 Janna Triana [address] [facility], [address], [place], [address], [facility] 0 13:36:22 Gastroeso phageal reflux disease without esophagit is 905103378 Active 2019 [facility] Kamilah [address] [place] [address], [address], [place], [address], [facility] 0 13:37:17 Coronary arteriosc lerosis 32067684 Active 2019 Janna Kamilah [address] [facility], [address], [place], [address], [facility] 0 13:41:31 Chronic obstructi ve pulmonary disease 36381572 Active 2019 Janna Kamilah [address] [facility], [address], [place], [address], [facility] 0 13:43:44 Obstructi ve sleep apnea syndrome 38025126 Active 2019 Janna Kamilah [address] [place] [address], [address], [place], [address], [facility] 0 13:45:06 Chronic pain 61074876 Active 2019 back DAVID GARRIDO NP [address] [facility], [address], [place], [address], [facility] 4 11:40:25 Restless legs 47551729 Active 2019 Ray Lee MD [address] [facility], [address], [place], [address], [facility] 0 12:39:59 Malignant tumor of colon 405103600 Active 2023 s/p partial colectomy 2020 with ostomy DAVID GARRIDO NP [address] [facility], [address], [place], [address], [facility] 4 11:41:17 Atrial fibrillat ion 49144581 Active 2023 with RVR DAVID GARRIDO NP [address] [facility], [address], [place], [address], [facility] 4 11:41:27 Congestiv e heart failure 82162296 Active 2023 DAVID GARRIDO NP [address] [facility], [address], [place], [address], [facility] 4 11:41:33 Restricti ve lung disease 19008039 Active 2023 DAVID GARRIDO NP [address], [address], [place], [address], [facility] 4 11:41:42 Acute-on- chronic respirato ry failure 81050725 Active 2023 DAVID GARRIDO NP [address], [address], [place], [address], [facility] 4 11:41:59 SARS-CoV- 2 Active 2023 DAVID GARRIDO NP [address], [address], [place], [address], [facility] 4 11:42:21 Pericardi al effusion 508771500 Active 2023 DAVID GARRIDO NP [address], [address], [place], [address], [facility] 4 11:42:33 Hyperlipi demia 76017494 Active 2023 DAVID GARRIDO NP [address], [address], [place], [address], [facility] 4 11:42:47 Periphera l vascular disease 775198907 Active 2023 DAVID GARRIDO NP [address] [facility], [address], [place], [address], [facility] 4 11:42:59 Gastroint estinal hemorrhag e 26503151 Active 2023 DAVID GARRIDO NP [address] [facility], [address], [place], [address], [facility] 4 11:43:11 Malignant tumor of lung 329389596 Active 2023 s/p LLLobectom y 2020 DAVID GARRIDO NP [address], [address], [place], [address], [facility] 4 11:43:41 Obesity 411106008 Active 2023 DAVID GARRIDO NP [address], [address], [place], [address], [place] [facility] 4 11:44:00 Fibromyal yolis 689955788 Active 2023 DAVID GARRIDO NP [address], [address], [place], [address], [facility] 4 11:44:15 Asthenia 02122787 Active 2023 DAVID GARRIDO NP [address], [address], [place], [address], [facility] 4 11:44:32 Anemia 534724897 Active 2023 DAVID GARRIDO NP [address], [address], [place], [address], [facility] 4 11:46:22 Overactiv e urinary bladder 778688375 Active 2023 DAVID GARRIDO NP [address], [address], [place], [address], [facility] 4 11:47:19 Urinary tract infectiou s disease 64343873 Active 2023 DAVID GARRIDO NP [address], [address], [place], [address], [facility] 4 11:47:55 Acute COVID-19 4013679381 Active 2023 Brynn Allen MD [address], [address], [place], [address], [facility] 4 18:03:34 Problem Notes None recorded. Medical Equipment None Reported. Allergies Allergen ID Allergen Name Allergen Category Reaction Reaction Severity Criticality Documentation Date Start Date Code Code System Note Provider Name and Address Organization Details Recorded Time cyclobenz aprine medicatio n Not available Not available Not available 05/01/2020 80987 RxNorm Not Available Not Available Not Available fentanyl medicatio n Not available Not available Not available 05/01/2020 4337 RxNorm hallu cinat ions Not Available Not Available Not Available topiramat e medicatio n Not available Not available Not available 05/01/2020 20852 RxNorm Not Available Not Available Not Available venlafaxi ne medicatio n Not available Not available Not available 05/01/2020 40260 RxNorm rash Not Available Not Available Not Available 91233 Product containin g penicilli n (product) medicatio n Not available Not available Not available 05/01/2020 59383 8001 SNOMED rash Not Available Not Available Not Available 39501 Levaquin medicatio n Not available Not available Not available 04/30/2024 95913 2 RxNorm diarr hea Not Available Not Available Not Available 07859 Substance with sulfonami de structure and antibacte rial mechanism of action (substanc e) medicatio n Not available Not available Not available 04/30/2024 33698 8003 SNOMED diarr hea Not Available Not Available Not Available Vitals Date Recorded Heart rate Respiratory rate Body temperature Oxygen saturation Oxygen saturation in Arterial blood by Pulse oximetry Systolic blood pressure Diastolic blood pressure Provider Name and Address Organization Details Last Updated DateTime 4 87 /min 18 /min 97.8 [degF] 94 % 94 % 119 mm[Hg] 62 mm[Hg] DAVID GARRIDO NP [address] [facility] [address], [place], [address], [facility] 4 11:25:49 Date Recorded Body weight Heart rate Respiratory rate Body temperature Oxygen saturation Oxygen saturation in Arterial blood by Pulse oximetry Systolic blood pressure Diastolic blood pressure Provider Name and Address Organization Details Last Updated DateTime 4 34316.3 7 g 82 /min 18 /min 99 [degF] 96 % 96 % 134 mm[Hg] 72 mm[Hg] Nadiya Jorgensen NP [address], [place], [address], [facility] 4 10:49:28 Date Recorded Body height Body mass index (BMI) Body weight Heart rate Respiratory rate Body temperature Oxygen saturation Oxygen saturation in Arterial blood by Pulse oximetry Systolic blood pressure Diastolic blood pressure Provider Name and Address Organization Details Last Updated DateTime 4 165.1 cm 31.3 kg/m2 67744.3 7 g 80 /min 18 /min 97.6 [degF] 95 % 95 % 134 mm[Hg] 72 mm[Hg] Brynn Allen MD [address], [address], [place], [address], [facility] 4 16:16:16 Date Recorded Body height Heart rate Respiratory rate Body temperature Oxygen saturation Oxygen saturation in Arterial blood by Pulse oximetry Systolic blood pressure Diastolic blood pressure Provider Name and Address Organization Details Last Updated DateTime 4 165.1 cm 94 /min 17 /min 97.3 [degF] 95 % 95 % 122 mm[Hg] 72 mm[Hg] Nadiya Jorgensen NP [address] [facility], [address], [place], [address], [facility] 4 08:54:32 Date Recorded Body height Heart rate Respiratory rate Body temperature Oxygen saturation Oxygen saturation in Arterial blood by Pulse oximetry Systolic blood pressure Diastolic blood pressure Provider Name and Address Organization Details Last Updated DateTime 4 165.1 cm 80 /min 18 /min 98 [degF] 98 % 98 % 122 mm[Hg] 72 mm[Hg] DAVID GARRIDO NP [address], [place], [address], [facility] 4 12:45:16 Social History Question Answer Notes LastModified by Organizat ion Details LastModified Time Tobacco Smoking Status Former Smoker Janna Triana [address] [facility], [address], [place], [address], [facility] 05/01/2020 14:31:11 Do You Have An Advance Directive? Yes Information not available 05/07/2024 What Is Your Level Of Alcohol Consumption? None [email or web address] Information not available 04/30/2024 What Is Your Code Status? Full Code [email or web address] Information not available 04/30/2024 Do You Or Have You Ever Used E-cigarettes Or Vape? Former User Of Electronic Cigarettes [email or web address] Information not available 04/30/2024 [address] Do You Live? Apartment Lives With , Supportive [email or web address] Information not available 04/30/2024 Do You Have A Medical Power Of Ventilation Mechanic? Yes Has HCP [email or web address] Information not available 04/30/2024 What Was The Date Of Your Most Recent Tobacco Screening? 04/30/2024 [email or web address] Information not available 04/30/2024 Do You Have An Out Of Hospital DNR? No Information not available 05/07/2024 What Is Your Relationship Status? Information not available 05/07/2024 Do You Or Have You Ever Used Smokeless Tobacco? Never Used Smokeless Tobacco [email or web address] Information not available 05/01/2020 How Much Tobacco Do You Smoke? No [email or web address] Information not available 04/30/2024 Do You Use Any Illicit Or Recreational Drugs? No [email or web address] Information not available 04/30/2024 Has Tobacco Cessation Counseling Been Provided? No [email or web address] Information not available 04/30/2024 How Many Years Have You Smoked Tobacco? 40 Information not available 04/30/2024 Do You Or Have You Ever Used Any Other Forms Of Tobacco Or Nicotine? Yes [email or web address] Information not available 04/30/2024 Sex: Unknown Functional Status None recorded. Mental Status None recorded. Family History Relationship Description Onset Age of this Age Resolved Age Notes LastModified by Organization Details LastModified Time Father Hypertensive disorder [email or web address] Not available 2023 11:28:51 Mother Hypertensive disorder [email or web address] Not available 2023 11:28:51 Mother Malignant neoplasm of uterus [email or web address] Not available 2023 11:29:10 Mother Chronic obstructive pulmonary disease [email or web address] Not available 2023 11:29:26 Mother Heart disease [email or web address] Not available 2023 11:29:51 Mother Mental disorder [email or web address] Not available 2023 11:30:10 Notes:mother by suicide Medical History No medical history recorded. Gynecological HistoryNo gynecological history recorded. Obstetrics History GPAL:G 0 P 0 0 0 0 Immunizations Vaccine Type Date Status Note Provider Nam e and Address Organization Details Recorded Time Tdap 6 completed Tatyana Alaniz [facility] 05/01/2024 14:41:19 pneumococcal polysaccharide PPV23 0 completed Tatyana Alaniz [facility] 05/01/2024 14:41:33 influenza, unspecified formulation 2 completed Tatyana Alaniz [facility] 05/01/2024 14:41:49 SARS-COV-2 (COVID-19) vaccine, UNSPECIFIED 1 completed Tatyana Corbin [facility] 05/01/2024 14:42:06 SARS-COV-2 (COVID-19) vaccine, UNSPECIFIED 1 completed Tatyana roach [facility] 05/01/2024 14:42:13 Past Encounters Encounter ID Performer Location Encounter Start Date Encounter Closed Date Diagnosis/Indication Diagnosis SNOMED-CT Code Diagnosis ICD10 Code Diagnosis Note [id number] Janna Triana JAYSHREE AT [address] [address] 05/01/2020 13:20:20 05/12/2020 13:44:52 Acute hypercapnic respiratory failure 567737881 J96.02 see HPItreated with steroids, BiPAP and bronchodil ators in acute carefinish steroids heremed regimen modified.P t OT to eval and treat.vladislav candis Bipolar disorder 9123018 4 F31.9 see HPI? med regimen contributi ng to resp failuredep akote, clonazapam , and amitriptyl ine reduced in acute caremonito r sxHDBH prn Essential hypertension 09177874 I10 norvasc 10 mg qdmetoprol ol changed to carvedilol in acute care ASA 82 mg qdmonitor BPs Gastroesop hageal reflux disease without esophagitis 512527319 K21.9 on PPI. monitor for sx. Coronary arteriosclerosis 08513746 I25.10 on ASA. monitor Chronic ob structive pulmonary disease 68866289 J44.9 BREO qdpredniso ne tapersuppl emental T2xfcclsi. Obstructiv e sleep apnea syndrome 85324545 G47.33 see HPI? contributi ng to resp [email or web address]/ 7 BIPAP in acute care tapered to nocturnal BiPAPconti nue CPAP at nighttime. modafinil started in acute caref/u pulmonolog y outpatient Dr Kaba Chronic pain 40846943 G8 9.29 percocet prn. monitor [id number] MD JAYSHREE Mahoney AT [address] [address] 05/06/2020 12:33:46 05/12/2020 13:42:27 Chronic obstructive pulmonary disease 59440872 J44.1 see abovetx with prednisone Obstructiv e sleep apnea syndrome 40836384 G47.33 new dxsee aboveconti nue positive airway pressureco ntinue support caref/u with pulmonary Acute hype rcapnic respiratory failure 906198199 J96.02 see HPIfelt that medication s and IVY were contributi ng factorsimp roved with BiPAP and O2wean as toleratedf /u with pulmonary in placemonit or respirator y status Bipolar disorder 7243668 4 F31.89 medication s adjusted in hospitalno w ondepakote 500 mg qdmonitor for sx controlpsy ch eval prn Essential hypertension 51932154 I10 now onnorvasc 10 mg qdcoreg 12.5 mg bidmonitor bptitrate prn Gastroesop hageal reflux disease without esophagitis 065059754 K21.9 omeprazole 20 mg qdmonitor for sx control Coronary arteriosclerosis 40845816 I25.10 on ASA. monitor Chronic pain 84478124 G8 9.29 question if oxycodone was contributi ng factor to respirator y failuremon itor on percocet Asthenia 66195963 R53.1 PT OT eval and treatmonit or fall riskambula sam with walker at baseline [id number] Janna Kamilah MARTELL AT [address] [address] 05/14/2020 12:57:20 05/20/2020 14:32:57 Acute hypercapnic respiratory failure 637728536 J96.02 resolved, ? medication s and IVY were contributi ng factorsimp roved with BiPAP and O2wean as toleratedf /u with pulmonary outpatient in place Chronic ob structive pulmonary disease 12758506 J44.1 see aboveBreo qd, Ellipta qd tx with prednisone f/u outpatient Obstructiv e sleep apnea syndrome 02679628 G47.33 new dxsee aboveprovi amilcar 100mg qdcontinue positive airway pressureco ntinue support caref/u with pulmonary outpatient Bipolar disorder 8136968 4 F31.89 medication s adjusted in hospitalno w onduloxeti ne 60 mg qdamitript yline 25 mg qddepakote 500 mg qdclonapin 0.5 mg BID prnf/u outpatient Essential hypertension 19805999 I10 now onnorvasc 10 mg qdcoreg 12.5 mg bidf/u outpatient Gastroesop hageal reflux disease without esophagitis 453857018 K21.9 omeprazole 20 mg qdf/u outpatient Coronary arteriosclerosis 56144978 I25.10 on ASA. f/u outpatient Chronic pain 70972084 G8 9.29 question if oxycodone was contributi ng factor to respirator y failurenow on percocet 10/325 QID prnf/u outpatient [id number] DAVID GARRIDO NP [address] [address] 04/30/2024 11:24:50 05/01/2024 10:36:48 Asthenia 07611066 R53.1 deconditio regina due to recent infection and chronic medical conditions fall x 2 wks agoPT OT eval and tx.Goal is to return home. Chronic pain 49986082 G8 9.29 with increased c/o back pain post fall 2 wks ago.ER work up unremarkab le.PT OT eval and tx.APAP prnultram 50 mg q8 hr prnMonitor and adjust med prnRefer to in house PMR for eval. and tx. Bipolar disorder 9500664 4 F31.89 also with PTSDalso dealing with the of her son in [place] home meds:VPA 500 mg q am, 1000 mg q pmDuloxeti ne 60 mg q hsClonazep am 1 mg bidMonitor mood, behaviorsS upportive carePsych eval prn Chronic ob structive pulmonary disease 23687417 J44.1 States uses O2 PRN at home, currently not wearing, will let us know when she needs it.Continu e home meds:Incru se ellipta 1 inh qdBreo ellipta 1 inh qdMonitor resp. status. Anemia 501280915 D64.9 ??H/O GI bleedCurre ntly on:Fe SO4 325 mg bidB12 1000 mcg qdWill continue meds and trend CBCHgb. 10.4 in ER Essential hypertension 88706234 I10 Continue home meds:Hydra lazine 50 mg tidCardize m CD 240 mg qdMetoprol ol XL 50 mg qdTrend VS, adjust prn Hyperlipidemia 08054075 E78.5 Continue home meds:atorv astatin 80 mg qdfenofibr ate 160 mg qdLipid panel prn Coronary arteriosclerosis 46566529 I25.10 Meds as aboveMonit or CP status Atrial fibrillation 4943 6004 I48.91 Continue home meds:Eliqu is 5 mg bidDiltiaz em CD 240 mg qdMetoprol ol XL 50 mg qdMonitor VS, CP status, bleeding risk (h/o GI bleed) Overactive urinary bladder 602946195 N32.81 ? retention Currently with polo, states [...] Emmanuel Jama hageal reflux disease without esophagitis 203395065 K21.9 with hx. GI BleedConti nue omeprazole 20 mg bidMonitor GI sx. Urinary tr act infectious disease 68633566 N39.0 ??cefpodox jocelyne on d/c med list, but suspect this is in error as UA in ER negative and pt. reports prior UTI addressed during previous hospitaliz ation. Malignant tumor of colon 813603952 C18.9 s/p partial colectomy 2020, now with ostomyAble to perform self care.Mali nue home bowel meds:Imodi um 2 mg q6 hr prnreglan 10 mg q6 hr prnlomotil bid prnlactulo se 15 ml qd prnzofran 8 mg qid prncolace 100 mg bid prn Headache 58889287 R51.9 ??On B2 400 mg qd - will continue Hypokalemia 77913614 E87 .6 On KCL 20 meq qdMonitor BMP [id number] Nadiya Jorgensen NP [address] [address] 05/06/2024 10:44:30 05/07/2024 09:37:52 Asthenia 03713430 R53.1 deconditio regina due to recent infection and chronic medical conditions fall x 2 wks agoPT OT eval and tx.Goal is to return home. Chronic pain 07170184 G8 9.29 with increased c/o back pain post fall 2 wks ago.ER work up unremarkab le.PT OT eval and tx.APAP prnultram 50 mg q8 hr prnMonitor and adjust med prnRefer to in house PMR for eval. and tx. Bipolar disorder 8036278 4 F31.89 also with PTSDalso dealing with the of her son in [place] home meds:VPA 500 mg q am, 1000 mg q pmDuloxeti ne 60 mg q hsClonazep am 1 mg bidMonitor mood, behaviorsS upportive carePsych eval prn Chronic ob structive pulmonary disease 28965116 J44.1 States uses O2 PRN at home, currently not wearing, will let us know when she needs it.Continu e home meds:Incru se ellipta 1 inh qdBreo ellipta 1 inh qdMonitor resp. status. Anemia 552374169 D64.9 labs normal on last check, will reorder todayH/O GI bleedCurre ntly on:Fe SO4 325 mg bidB12 1000 mcg qdWill continue meds and trend CBCHgb. 10.4 in ER Essential hypertension 20016513 I10 Continue home meds:Hydra lazine 50 mg tidCardize m CD 240 mg qdMetoprol ol XL 50 mg qdTrend VS, adjust prn Hyperlipidemia 91029330 E78.5 Continue home meds:atorv astatin 80 mg qdfenofibr ate 160 mg qdLipid panel prn Coronary arteriosclerosis 18573797 I25.10 Meds as aboveMonit or CP status Atrial fibrillation 4943 6004 I48.91 Continue home meds:Eliqu is 5 mg bidDiltiaz em CD 240 mg qdMetoprol ol XL 50 mg qdMonitor VS, CP status, bleeding risk (h/o GI bleed) Overactive urinary bladder 841348811 N32.81 ?? retentionf oley removed last week, and voiding wellUA in ER neg. Currently on:oxybuti juan josé 5 mg qdbethanec hol 50 mg bidCan replace polo if still retaining and refer to Dr. Benitez Gastroesop hageal reflux disease without esophagitis 138412401 K21.9 with hx. GI BleedConti nueomepraz ole 20 mg bidMonitor GI sx. 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 reports prior UTI addressed during previous hospitaliz ation. Malignant tumor of colon 460545719 C18.9 cancer in remission per ER note and oncologys/ p partial colectomy 2020, now with ostomyAble to perform self care.Mali nue home bowel meds:Imodi um 2 mg q6 hr prnreglan 10 mg q6 hr prnlomotil bid prnlactulo se 15 ml qd prnzofran 8 mg qid prncolace 100 mg bid prn Hypokalemia 14258768 E87 .6 On KCL 20 meq qdMonitor BMP Acute COVID-19 238890845 8 U07.1 pt with new diagnosis of [...] or vitals daily Altered mental status 41 7061732 R41.82 pt with increased confusion from regular [...] agitationm onitor closely and redirect as able [id number] Brynn Allen MD [address] [address] 05/07/2024 16:10:17 05/08/2024 10:41:40 Acute COVID-19 8506993387 U07.1 Tested + on ppeti te still good, O2 sats good on RA.Continu e molnupirav ir 800 mg BID x 5 days and robitussin 10 m l po q 6 hours prn coughTo use dexamethas one, fluids, supplement al O2 prn for sxs.Contin ue to monitor O2 sats, temp, GI sxs and po intake. Altered mental status 41 9325686 R41.82 Likely due to Covid.Fair ly oriented right now, but apparently had some hallucinat ions earlier.Co ntinue clonazepam 1 mg q 8 hrs prn agitation in addition to usual 1 mg BID as noted below.Reor ient as needed.Mon itor. Asthenia 54458584 R53.1 PT/OT as above.Goal is to return home. Chronic pain 61358154 G8 9.29 Per fell 6 wks ago, but may have had another fall more recently.N o acute findings in ED.Needs PT/OT for strengthen ing, balance, gait training, safety and function.C ontinue fall precaution s.Monitor for safety.Con tinue APAP 650 mg q 4 hrs prn and tramadol 50 mg q 8 hrs prn.Monito r pain control and function.P M&R consult Bipolar disorder 6246384 4 F31.89 Mood good right now, but says she was very confused earlier, see above.Cont inue VPA 500 mg qam and 1000 mg qpm, duloxetine 60 mg qhs and clonazepam 1 mg BID and 1 mg q 8 hrs prn.Monito r mood and behaviorsP sych consult Chronic ob structive pulmonary disease 37694715 J44.1 Uses supplement al O2 prn at home, O2 sats have been good on RA since here.Curre ntly monitoring sats TID for covid surveillan ce and will use O2 prn to maintain sats >92%.Mali nue Incruse ellipta 62.5 mcg 1 puff qd and Breo ellipta 100/25 mcg1 puff qdMonitor resp. status. Anemia 535799853 D64.89 Hgb stable in 10-12 range.H/O GI bleedConti nue FeSO4 325 mg BID and B12 1000 mcg qdMonitor labs. Essential hypertension 75491905 I10 Good control since here.Mali nue hydralazin e 50 mg TID, diltiazem CD 240 mg qd, and metoprolol XL 50 mg qdMonitor BP and labs. Hyperlipidemia 94533310 E78.49 Continue atorvastat in 80 mg qd and fenofibrat e 160 mg qdMonitor labs as outpt. Coronary arteriosclerosis 86263293 I25.10 No recent sxs.Contin ue meds as above.Vladislav tor sxs Atrial fibrillation 4943 6004 I48.0 Rate in good control on meds as above.Cont inue eliquis 5 mg BID for AC.Monitor HR and bleeding risk. Overactive urinary bladder 523051503 N32.81 S/P retention during last hospitaliz ationNow voiding wellContin ue oxybutynin 5 mg qd and bethanecho l 50 mg BIDMonitor urinary function.U ro f/u prn. Gastroesop hageal reflux disease without esophagitis 315524848 K21.9 Hx of GI BleedConti nue omeprazole 20 mg BID.Monito r GI sxs. Urinary tr act infectious disease 64762775 N30.80 Reportedly U/A ordered yest due to increased confusion, but none sent yet.Suspec t confusion is due to Covid.But will remind nursing about obtaining urine. Malignant tumor of colon 618291907 C18.8 S/P partial colectomy 2020, with ostomy [...] BID. prnF/U with oncology as planned. Hypokalemia 57728691 E87 .6 Continue KCL 20 meq qdMonitor [facility] [id number] Nadiya Jorgensen, SADE [address] [place] [address] 05/13/2024 13:43:08 05/14/2024 13:30:16 Chronic pain 78380229 G89.29 lower back pain (Per fell 6 wks ago, possibly other falls)work up unremarkab le felt rehab appropriat epain controlled todaycontP T/OT for strengthen ing, balance, gait training, safety and function.f all precaution s.Monitor for safety.APA P 650 mg q 4 hrs prntramado l 50 mg q 8 hrs prn.Monito r pain control and function.P M&R consult Acute COVID-19 [id number] 8 U07.1 Tested + on 05/05 now considered recovered with mild courseComp leted molnupirav ir 800 mg BID x 5 days and robitussin 10 m l po q 6 hours prn cough, and off isolationh allucinati ons seem resolved, likely r/t covid? with underlying dementiamo nitor for sequele Altered mental status 41 4546080 R41.82 Likely due to Covid.Fair ly oriented right now, but apparently had some hallucinat ions earlier.Co ntinue clonazepam 1 mg q 8 hrs prn agitation in addition to usual 1 mg BID as noted below.Reor ient as needed.Mon itor. Asthenia 67289636 R53.1 PT/OT as above.Goal is to return home. Bipolar disorder 7205456 4 F31.89 Mood good right now, but says she was very confused earlier, see above.Cont inue VPA 500 mg qam and 1000 mg qpm, duloxetine 60 mg qhs and clonazepam 1 mg BID and 1 mg q 8 hrs prn.Monito r mood and behaviorsP sych consult Chronic ob structive pulmonary disease 31127126 J44.1 Uses supplement al O2 prn at home, O2 sats have been good on RA since here.Aimee ntly monitoring sats TID for covid surveillan ce and will use O2 prn to maintain sats >92%.Mali nue Incruse ellipta 62.5 mcg 1 puff qd and Breo ellipta 100/25 mcg1 puff qdMonitor resp. status. Anemia 843822946 D64.89 Hgb stable in 10-12 range.H/O GI bleedConti nue FeSO4 325 mg BID and B12 1000 mcg qdMonitor labs. Essential hypertension 79966834 I10 Good control since here.Mali nue hydralazin e 50 mg TID, diltiazem CD 240 mg qd, and metoprolol XL 50 mg qdMonitor BP and labs. Hyperlipidemia 62412434 E78.49 Continue atorvastat in 80 mg qd and fenofibrat e 160 mg qdMonitor labs as outpt. Coronary arteriosclerosis 30686909 I25.10 No recent sxs.Contin ue meds as above.Vladislav tor sxs Atrial fibrillation 4943 6004 I48.0 Rate in good control on meds as above.Cont inue eliquis 5 mg BID for AC.Monitor HR and bleeding risk. Overactive urinary bladder 046323841 N32.81 S/P retention during last hospitaliz ationNow voiding wellContin ue oxybutynin 5 mg qd and bethanecho l 50 mg BIDMonitor urinary function.U ro f/u prn. Gastroesop hageal reflux disease without esophagitis 294768017 K21.9 Hx of GI BleedConti nue omeprazole 20 mg BID.Monito r GI sxs. Urinary tr act infectious disease 21380730 N30.80 Reportedly U/A ordered yest due to increased confusion, but none sent yet.Suspec t confusion is due to Covid.But will remind nursing about obtaining urine. Malignant tumor of colon 002861568 C18.8 S/P partial colectomy 2020, with ostomy [...] BID. prnF/U with oncology as planned. Hypokalemia 73418089 E87 .6 Continue KCL 20 meq qdMonitor BMP [id number] DAVID GARRIDO, SADE [facility] [address] [place] [address] 05/16/2024 12:44:25 05/17/2024 14:24:13 Asthenia 23104347 R53.1 deconditio regina due to recent infection and chronic medical conditions fall x 3 wks agoPT OT eval and tx. - has made some progressWi ll be going home tomorrow with support of family, VNA, GSSS. Chronic pain 26661170 G8 9.29 with increased c/o back pain post fall 3 wks ago.ER work up unremarkab le.PT OT eval and tx. - going home tomorrowAP AP prnultram 50 mg q8 hr prn - using here on occasionMo nitor and adjust med prnReferre d to in house PMR for eval. and tx., but no reports scanned into EMR, unsure if was seen. Bipolar disorder 5955955 4 F31.89 also with PTSDalso dealing with [...] eval prn Chronic ob structive pulmonary disease 14774002 J44.1 States uses O2 PRN at home, currently not wearing, will let us know when she needs it.Continu e:Incruse ellipta 1 inh qdAdvair 250/20 1 inh qdMonitor resp. status. Anemia 421981764 D64.9 ??H/O GI bleedCurre ntly on:Fe SO4 325 mg bidB12 1000 mcg qdWill continue meds and trend CBCHgb. 10.4 in ER, currently 12.5 Essential hypertension 21019513 I10 Continue home meds:Hydra lazine 50 mg tidCardize m CD 240 mg qdMetoprol ol XL 50 mg qdTrend VS, adjust prn Hyperlipidemia 83301991 E78.5 Continue home meds:atorv astatin 80 mg qdfenofibr ate 160 mg qdLipid panel prn Coronary arteriosclerosis 51436193 I25.10 Meds as aboveMonit or CP status Atrial fibrillation 4943 6004 I48.91 Continue home meds:Eliqu is 5 mg bidDiltiaz em CD 240 mg qdMetoprol ol XL 50 mg qdMonitor VS, CP status, bleeding risk (h/o GI bleed) Overactive urinary bladder 775119352 N32.81 ? retention Admitted with a polo, states placed during hospitaliz ation earlier in the month and was sent home with it. Reports also treated for UTI.UA in ER neg.Polo removed here, voiding well, no s/s retention reported by pt. or staff. Continue:o xybutinin 5 mg qdbethanec hol 50 mg bid Gastroesop hageal reflux disease without esophagitis 606847277 K21.9 with hx. GI BleedConti nue omeprazole 20 mg bidMonitor GI sx. as outpt. Urinary tr act infectious disease 68167102 N39.0 ??cefpodox jocelyne on d/c med list, but suspect this is in error as UA in ER negative and pt. reports prior UTI addressed during previous hospitaliz ation. Malignant tumor of colon 676084458 C18.9 s/p partial colectomy 2020, now with ostomyAble to perform self care.Mali nue home bowel meds:Imodi um 2 mg q6 hr prnreglan 10 mg q6 hr prnlomotil bid prnlactulo se 15 ml qd prnzofran 8 mg qid prncolace 100 mg bid prn Headache 06405792 R51.9 ??On B2 400 mg qd - will continue Hypokalemia 38188337 E87 .6 On KCL 20 meq qdMonitor BMP as outpt. Acute COVID-19 268257960 8 U07.1 Tested + on 05/05 now considered recovered with mild courseComp leted molnupirav ir 800 mg BID x 5 dayshalluc inations seem resolved, likely r/t covid? with underlying dementiamo nitor as outpt. for sequelae Altered mental status 41 5718822 R41.82 Likely due to Covid.Fair ly oriented [...] Name 04/30/2024 2 [place] Claire Duplisea [id number] Claire Duplisea 04/30/2024 1 [place] [employer] Claire Duplisea [id number] Claire Duplisea 05/06/2024 2 [place] Claire Duplisea [id number] Claire Duplisea 05/06/2024 1 [place] [employer] Claire Duplisea [id number] Claire Duplisea 05/07/2024 2 [place] Claire Duplisea [id number] Claire Duplisea 05/07/2024 1 [place] [employer] Cliare Duplisea [id number] Claire Duplisea 05/13/2024 2 [place] Claire Duplisea [id number] Claire Duplisea 05/13/2024 1 [place] [employer] Claire Duplisea [id number] Claire Duplisea 05/16/2024 2 [place] Claire Duplisea [id number] Claire Duplisea 05/16/2024 1 [place] [employer] Claire Duplisea [id number] Claire Duplisea Notes Date Note Type Note Provider Name and Address Organization Details Recorded Time 04/30/2024 text/html Claire is seen to day for initial intake. She is a 58 yo lady, admitted today to [facility] from [facility] for continued care and rehab after an ER eval due to back pain. She presented to [facility] 04/28/24 with worsening back pain x 2 [...] failure, PTSD, CADMOLST: DAYNE GARRIDO NP [address] [facility], [address], [place], [address], [facility] 04/30/2024 13:45:18 05/06/2024 text/html Claire is seen [...] is a 58 yo lady, admitted to [facility] from [facility] on 04/30 for continued care and rehab after an ER eval due to back pain. Per summary: She initially presented to [facility] 04/28/24 with worsening back pain x 2 [...] HODGE: mod. fall riskMOLST: DNI Nadiya Jorgensen, TURNING AND BEADING MACHINE OPERATOR [address], [address], [place], [address], [facility] [employer] 05/06/2024 12:02:31 05/07/2024 text/html This is a compli cated 58 yo woman who is here for rehab after an ED visit forworsening back pain. [facility]19 for AMS.Per d/c summary:58F PMH [...] and removal of the catheter. 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 Brynn Allen MD [address] [place] [address], [address], [place], [address], [employer] 05/07/2024 18:21:03 05/13/2024 text/html Claire is seen [...] a 58 yo lady, admitted today to [facility] from [facility] for continued care and rehab after an ER eval due to back pain and weakness and altered mental status. . She presented to [facility] on 04/28/24 with worsening back pain x 2 weeks after sustaining a fall at home. Work up unremarkable but would benefit from PT OT due to gross deconditioning. Details below. Since here at [facility] she has been working with therapy [...] room. of note:[facility] for AMS.Per d/c summary:58F PMH [...] mod. fall riskMOLST: DNBrice Jorgensen, SADE [address] [facility], [address], [place], [address], [facility] [employer] 05/14/2024 09:27:31 05/16/2024 text/html Claire is seen to day for discharge.She is going home tomorrow with support of family and services. She is a 58 yo lady, admitted 04/30/24 to [facility] from [facility] for continued care and rehab after an ER eval due to back pain.She presented to [facility] 04/28/24 with worsening back pain x 2 [...] PTSD, CADMOLST: DNI DAVID GARRIDO NP [address] [facility] [address], [address], [place], [address], [facility] [employer] 05/16/2024 13:17:01 OBGyn Episode No OBEpisode recorded.
--- OUTSIDE RECORDS SUMMARY | 2024-08-01 17:28 | XMS_ITS | Encounter Summary ---
Author Organization [facility] Address [address] [place] [address] Care Team Providers Care Securities Trader Name Role Phone Cassandra Oconnor MD Primary Care Provider [phone] Encounter Details Date Type Department Care Team (Late Contact Info) Description 05/07/2024 Lab Requisition [facility] - Main Lab [address] [place] [address] Ray Lee MD [address] [place] [address] Essential (primary) hypertension Social History Tobacco [...] as of this encounter Plan of Treatment Upcoming Encounters Date Type Department Care Team (Late Contact Info) Description 08/02/2024 11:00 AM EST Appointment [facility] PET Scan [address] [place] [address] documented as of this encounter Procedures Procedure [...] CBC auto differential (05/07/2024 7:55 AM EST) [facility] Signature WBC 7.5 4.8 - 10.8 K/mcL LAB HEMETOLOGY METHOD 05/07/2024 10:31 AM [facility] RBC 3.60(L) 3.80 - 4.80 M/mcL LAB HEMETOLOGY METHOD 05/07/2024 10:31 AM [facility] Hemoglobin 11.5 11.5 - 16.0 g/dL LAB HEMETOLOGY METHOD 05/07/2024 10:31 AM [facility] LAB Hematocrit 38.7 35.0 - 47.0 % LAB HEMETOLOGY METHOD 05/07/2024 10:31 AM [facility] MCV 108.7(H) 79.0 - 98.0 FL LAB HEMETOLOGY METHOD 05/07/2024 10:31 AM [facility] MCH 32.3(H) 27.0 - 32.0 pcg LAB HEMETOLOGY METHOD 05/07/2024 10:31 AM [facility] MCHC 29.7(L) 32.0 - 37.0 g/dL LAB HEMETOLOGY METHOD 05/07/2024 10:31 AM [facility] RDW 18.4(H) 11.0 - 15.0 % LAB HEMETOLOGY METHOD 05/07/2024 10:31 AM [facility] Platelets 265 130 - 400 K/mcL LAB HEMETOLOGY METHOD 05/07/2024 10:31 AM [facility] MPV 11.4(H) 7.0 - 11.0 FL LAB HEMETOLOGY METHOD 05/07/2024 10:31 AM [facility] NRBC 0.0 <1.0 % LAB HEMETOLOGY METHOD 05/07/2024 10:31 AM [facility] NRBC Absolute 0.00 <0.10 K/mcL LAB HEMETOLOGY METHOD 05/07/2024 10:31 AM [facility] Neutrophils Relative 54.4 % LAB HEMETOLOGY METHOD 05/07/2024 10:31 AM [facility] Lymphocytes Relative 26.7 % LAB HEMETOLOGY METHOD 05/07/2024 10:31 AM [facility] Monocytes Relative 15.0 % LAB HEMETOLOGY METHOD 05/07/2024 10:31 AM [facility] Eosinophils Relative 0.0 % LAB HEMETOLOGY METHOD 05/07/2024 10:31 AM [facility] Basophils Relative 1.2 % LAB HEMETOLOGY METHOD 05/07/2024 10:31 AM [facility] Immature Granulocytes Relative 2.7 % LAB HEMETOLOGY METHOD 05/07/2024 10:31 AM [facility] Neutrophils Absolute 4.07 1.50 - 7.00 K/mcL LAB HEMETOLOGY METHOD 05/07/2024 10:31 AM [facility] Lymphocytes Absolute 2.00 1.00 - 5.00 K/mcL LAB HEMETOLOGY METHOD 05/07/2024 10:31 AM [facility] Monocytes Absolute 1.12(H) 0.20 - 1.00 K/mcL LAB HEMETOLOGY METHOD 05/07/2024 10:31 AM [facility] Eosinophils Absolute 0.00 0.00 - 0.50 K/mcL LAB HEMETOLOGY METHOD 05/07/2024 10:31 AM [facility] Basophils Absolute 0.09 0.00 - 0.20 K/mcL LAB HEMETOLOGY METHOD 05/07/2024 10:31 AM EST [facility] Immature Granulocytes Absolute 0.20(H) 0.00 - 0.03 K/mcL LAB HEMETOLOGY METHOD 05/07/2024 10:31 AM EST [facility] Blood Venous blood specimen / Unknown Venipuncture / Unknown 05/07/2024 7:55 AM EST 05/07/2024 10:01 AM EST Ray Lee MD LAB BLOOD ORDERABLES Final Resul t Performing Organization Address [facility]/ZIP Co de Phone Number [facility] [address] [place] [address], [place] [phone] * Valproic acid level, total (05/07/2024 7:55 AM EST) Pathologist [facility] Valproic Acid, Total 71 50 - 100 mcg/mL LAB CHEMISTRY METHOD 05/07/2024 10:47 AM EST [facility] Blood Venous blood specimen / Unknown Venipuncture / Unknown 05/07/2024 7:55 AM EST 05/07/2024 10:01 AM EST Ray Lee MD LAB BLOOD ORDERABLES Final Resul t Performing Organization Address [facility]/ZIP Co de Phone Number [facility] [address] [place] [address], [place] [phone] * (ABNORMAL) Comprehensive metabolic panel (05/07/2024 7:55 AM EST) Sodium 137 133 - 145 mmol/L LAB CHEMISTRY METHOD 05/07/2024 10:52 AM EST [facility] Potassium 4.2 3.5 - 5.5 mmol/L LAB CHEMISTRY METHOD 05/07/2024 10:52 AM EST [facility] Chloride 103 96 - 110 mmol/L LAB CHEMISTRY METHOD 05/07/2024 10:52 AM EST [facility] CO2 23 21 - 32 mmol/L LAB CHEMISTRY METHOD 05/07/2024 10:52 AM [facility] Anion Gap 11 3 - 11 LAB CHEMISTRY METHOD 05/07/2024 10:52 AM [facility] Glucose 80 70 - 100 mg/dL LAB CHEMISTRY METHOD 05/07/2024 10:52 AM [facility] BUN 16 5 - 25 mg/dL LAB CHEMISTRY METHOD 05/07/2024 10:52 AM [facility] Creatinine 0.65 0.50 - 1.10 mg/dL LAB CHEMISTRY METHOD 05/07/2024 10:52 AM [facility] eGFR 101 >=60 mL/min/1. 73m2 LAB CHEMISTRY METHOD 05/07/2024 10:52 AM [facility] Comment:Calculation based on the??Chronic Kidney Disease Epidemiology Collaboration (CKD-EPI) equation refit??without adjustment for race. BUN/Creatinine Ratio 24.6 LAB CHEMISTRY METHOD 05/07/2024 10:52 AM [facility] Calcium 8.8 8.5 - 10.5 mg/dL LAB CHEMISTRY METHOD 05/07/2024 10:52 AM [facility] AST (SGOT) 25 10 - 42 unit/L LAB CHEMISTRY METHOD 05/07/2024 10:52 AM [facility] ALT (SGPT) 9(L) 10 - 60 unit/L LAB CHEMISTRY METHOD 05/07/2024 10:52 AM [facility] Alkaline Phosphatase 70 42 - 121 unit/L LAB CHEMISTRY METHOD 05/07/2024 10:52 AM [facility] Total Protein 6.0 6.0 - 8.0 g/dL LAB CHEMISTRY METHOD 05/07/2024 10:52 AM [facility] Albumin 2.7(L) 3.2 - 5.0 g/dL LAB CHEMISTRY METHOD 05/07/2024 10:52 AM [facility] Total Bilirubin 0.4 0.0 - 1.4 mg/dL LAB CHEMISTRY METHOD 05/07/2024 10:52 AM EST [facility] Blood Venous blood specimen / Unknown Venipuncture / Unknown 05/07/2024 7:55 AM EST 05/07/2024 10:01 AM EST us Ray Lee MD LAB BLOOD ORDERABLES Final Resul t [facility] [address] [place] [address], [place] [phone] documented in this encounter Visit Diagnoses Diagnosis Essential (primary) hypertension Unspecified essential hypertension documented in this encounter Care Teams Securities Trader Relationship Specialty Start Date End Date Cassandra Oconnor MD [address] [place] [address] PCP - General 10/26/10 documented as of this encounter
--- OUTSIDE RECORDS SUMMARY | 2024-08-01 17:28 | XMS_ITS | Clinical Summary ---
Author Organization [employer] Address [address] [place] [address] [address] [place] [address] Care Team Providers Care Oven Drier Tender Name Role Phone Unavailable Primary Care Provider [...] older (1 - 1-dose 75+ series) 2038 HIB [...]
--- OUTSIDE RECORDS SUMMARY | 2024-08-01 17:28 | XMS_ITS | Encounter Summary ---
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 Social History Tobacco Use [...] Info) Description 08/02/2024 11:00 AM EST Appointment [facility] PET Scan [address] [place] [address] documented as of this encounter Procedures Procedure Name Priority Date/Time Associated Diagnosis Comments COMPLETE BLOOD COUNT Routine 05/17/2024 6:14 AM EST Other jail (current) drug therapy BASIC METABOLIC PANEL Routine 05/17/2024 6:14 AM EST Other termite control 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 documented in this encounter Results * (ABNORMAL) Basic metabolic panel (05/17/2024 6:14 AM EST) Sodium 142 133 - 145 mmol/L LAB CHEMISTRY METHOD 05/17/2024 11:20 AM [facility] Potassium 4.6 3.5 - 5.5 [...] 6:14 AM EST 05/17/2024 10:16 AM EST Ray Lee MD LAB BLOOD ORDERABLES Final Resul t [facility] [address] [place] [address], * (ABNORMAL) Complete blood count (05/17/2024 6:14 AM EST) WBC 9.7 4.8 - 10.8 K/mcL LAB HEMETOLOGY METHOD 05/17/2024 10:47 AM EST [facility] RBC 3.50(L) 3.80 - 4.80 M/mcL LAB HEMETOLOGY METHOD 05/17/2024 10:47 AM EST [facility] Hemoglobin 11.0(L) 11.5 - 16.0 g/dL LAB HEMETOLOGY METHOD 05/17/2024 10:47 AM EST [facility] Hematocrit 36.4 35.0 - 47.0 % LAB HEMETOLOGY METHOD 05/17/2024 10:47 AM EST [facility] MCV 103.7(H) 79.0 - 98.0 FL LAB HEMETOLOGY METHOD 05/17/2024 10:47 AM EST [facility] MCH 31.3 27.0 - 32.0 [...] FL LAB HEMETOLOGY METHOD 05/17/2024 10:47 AM EST [facility] NRBC 0.0 <1.0 % LAB HEMETOLOGY METHOD 05/17/2024 10:47 AM EST [facility] NRBC Absolute 0.00 <0.10 K/mcL LAB HEMETOLOGY METHOD 05/17/2024 10:47 AM EST [facility] Blood Venous blood specimen / Unknown Venipuncture / Unknown 05/17/2024 6:14 AM EST 05/17/2024 10:14 AM EST us Ray Lee MD LAB BLOOD ORDERABLES Final Resul t [facility] [address] [place] [address], [place] [phone] documented in this encounter Visit Diagnoses Diagnosis Other jail (current) drug therapy documented in this encounter Care Teams Graphotype Operator Relationship Specialty Start Date End Date Cassandra Oconnor MD [address] [place] [address] PCP - General 10/26/10 documented as of this encounter
--- OUTSIDE RECORDS SUMMARY | 2024-08-01 17:28 | XMS_ITS | Clinical Summary ---
Author Organization [address] Address [address] [place] [address] Phone Care Team Providers Care Electrolysis Engineer Name Role Phone Cassandra Oconnor MD Primary Care Provider [phone] Encounters Date Type Department Care Team Description 05/23/[address] [facility] Lab [address] [place] [address] Ray Lee MD Other adjunct faculty for medical terminology (current) drug therapy 05/16/[address] [facility] Lab [address] [place] [address] Ray Lee MD Other mcc (current) drug therapy 05/09/[address] [facility] Lab [address] [place] [address] Ray Lee MD Other adjunct faculty for medical terminology (current) drug therapy 05/07/[address] [facility] Lab [address] [place] [address] Ray Lee MD Essential (primary) hypertension 05/03/[address] [facility] Lab [address] [place] [address] Ray Lee MD Other mcc (current) drug therapy from Last 3 Months Surgical History Surgery Date Site/Laterality Comments OTHER SURGICAL HISTORY PROCEDURE: ID UNLISTED PROCEDURE SPINE; COMMENT: lumbar spine Sx. Metal hardware in place. HYSTERECTOMY PROCEDURE: HISTORICAL HYSTERECTOMY APPENDECTOMY PROCEDURE: HISTORICAL APPENDECTOMY CHOLECYSTECTOMY PROCEDURE: HISTORICAL CHOLECYSTECTOMY BACK SURGERY PROCEDURE: HISTORICAL BACK SURGERY APPENDECTOMY PROCEDURE: ID APPENDECTOMY CHOLECYSTECTOMY PROCEDURE: ID LAPAROSCOPY SURG CHOLECYSTECTOMY Medical History Medical History [...] 11/20/2023 10:25 AM EDT Plan of Treatment Upcoming Encounters Date Type Department Care Team (Late st Contact Info) Description 08/02/2024 11:[address] [facility] PET Scan [address] [place] [address] Health Maintenance Due Date Last Done Comments [...] PANEL Routine 05/17/2024 6:14 AM EST Other adjunct faculty for medical terminology (current) drug therapy COMPLETE BLOOD COUNT Routine 05/17/2024 6:14 AM EST Other adjunct faculty for medical terminology (current) drug therapy BASIC METABOLIC PANEL Routine 05/10/2024 8:37 AM EST Other adjunct faculty for medical terminology (current) drug therapy COMPLETE BLOOD COUNT Routine 05/10/2024 8:37 AM EST Other mcc (current) drug therapy CBC WITH AUTO DIFFERENTIAL Routine 05/07/2024 7:55 AM EST Essential (primary) hypertension VALPROIC ACID LEVEL, TOTAL Routine 05/07/2024 7:55 AM EST Essential (primary) hypertension COMPREHENSIVE METABOLIC PANEL Routine 05/07/2024 7:55 AM EST Essential (primary) hypertension CBC AND DIFFERENTIAL Routine 05/07/2024 7:55 AM EST Essential (primary) hypertension VALPROIC ACID LEVEL, TOTAL Routine 05/03/2024 5:52 AM EST Other mcc (current) drug therapy COMPREHENSIVE METABOLIC PANEL Routine 05/03/2024 5:52 AM EST Other mcc (current) drug therapy COMPLETE BLOOD COUNT Routine 05/03/2024 5:52 AM EST Other mcc (current) drug therapy from Last 3 Months Results * (ABNORMAL) Complete blood count (05/17/2024 6:14 AM EST) Only the most recent of3 resultswithin the time period is included. [facility] Signature WBC 9.7 4.8 - 10.8 K/mcL LAB HEMETOLOGY METHOD 05/17/2024 10:47 AM EST [facility] RBC 3.50(L) 3.80 - 4.80 M/mcL LAB HEMETOLOGY METHOD 05/17/2024 10:47 AM [facility] LAB Hemoglobin 11.0(L) 11.5 - 16.0 g/dL LAB HEMETOLOGY METHOD 05/17/2024 10:47 AM [facility] LAB Hematocrit 36.4 35.0 - 47.0 % LAB HEMETOLOGY METHOD 05/17/2024 10:47 AM [facility] LAB MCV 103.7(H) 79.0 - 98.0 FL LAB HEMETOLOGY METHOD 05/17/2024 10:47 AM [facility] LAB MCH 31.3 27.0 - 32.0 pcg LAB HEMETOLOGY METHOD 05/17/2024 10:47 AM [facility] LAB MCHC 30.2(L) 32.0 - 37.0 g/dL LAB HEMETOLOGY METHOD 05/17/2024 10:47 AM [facility] LAB RDW 17.7(H) 11.0 - 15.0 % LAB HEMETOLOGY METHOD 05/17/2024 10:47 AM [facility] LAB Platelets 303 130 - 400 K/mcL LAB HEMETOLOGY METHOD 05/17/2024 10:47 AM [facility] LAB MPV 11.1(H) 7.0 - 11.0 FL LAB HEMETOLOGY METHOD 05/17/2024 10:47 AM [facility] LAB NRBC 0.0 <1.0 % LAB HEMETOLOGY METHOD 05/17/2024 10:47 AM [facility] LAB NRBC Absolute 0.00 <0.10 K/mcL LAB HEMETOLOGY METHOD 05/17/2024 10:47 AM [facility] LAB Blood Venous blood specimen / Unknown Venipuncture / Unknown 05/17/2024 6:14 AM EST 05/17/2024 10:14 AM EST us Ray Lee MD LAB BLOOD ORDERABLES Final Resul t [facility] LAB [address] [place] [address], [place] [phone] * (ABNORMAL) Basic metabolic panel (05/17/2024 6:14 AM EST) Only the most recent of2 resultswithin the time period is included. Sodium 142 133 - 145 mmol/L LAB CHEMISTRY METHOD 05/17/2024 11:20 AM EST [facility] LAB Potassium 4.6 3.5 - 5.5 mmol/L LAB CHEMISTRY METHOD 05/17/2024 11:20 AM [facility] LAB Chloride 104 96 - 110 mmol/L LAB CHEMISTRY METHOD 05/17/2024 11:20 AM [facility] LAB CO2 26 21 - 32 mmol/L LAB CHEMISTRY METHOD 05/17/2024 11:20 AM [facility] LAB Anion Gap 12(H) 3 - 11 LAB CHEMISTRY METHOD 05/17/2024 11:20 AM [facility] LAB Glucose 102(H) 70 - 100 mg/dL LAB CHEMISTRY METHOD 05/17/2024 11:20 AM [facility] LAB BUN 17 5 - 25 mg/dL LAB CHEMISTRY METHOD 05/17/2024 11:20 AM [facility] LAB Creatinine 0.87 0.50 - 1.10 mg/dL LAB CHEMISTRY METHOD 05/17/2024 11:20 AM [facility] LAB eGFR 76 >=60 mL/min/1. 73m2 LAB CHEMISTRY METHOD 05/17/2024 11:20 AM [facility] LAB Comment:Calculation based on the??Chronic Kidney Disease Epidemiology Collaboration (CKD-EPI) equation refit??without adjustment for race. BUN/Creatinine Ratio 19.5 LAB CHEMISTRY METHOD 05/17/2024 11:20 AM [facility] LAB Calcium 9.1 8.5 - 10.5 mg/dL LAB CHEMISTRY METHOD 05/17/2024 11:20 AM [facility] LAB Blood Venous blood specimen / Unknown Venipuncture / Unknown 05/17/2024 6:14 AM EST 05/17/2024 10:16 AM EST us Ray Lee MD LAB BLOOD ORDERABLES Final Resul t [facility] LAB [address] [place] [address], * (ABNORMAL) CBC auto differential (05/07/2024 7:55 AM EST) WBC 7.5 4.8 - 10.8 K/mcL LAB HEMETOLOGY METHOD 05/07/2024 10:31 AM [facility] LAB RBC 3.60(L) 3.80 - 4.80 M/mcL LAB HEMETOLOGY METHOD 05/07/2024 10:31 AM [facility] LAB Hemoglobin 11.5 11.5 - 16.0 g/dL LAB HEMETOLOGY METHOD 05/07/2024 10:31 AM [facility] LAB Hematocrit 38.7 35.0 - 47.0 % LAB HEMETOLOGY METHOD 05/07/2024 10:31 AM [facility] LAB MCV 108.7(H) 79.0 - 98.0 FL LAB HEMETOLOGY METHOD 05/07/2024 10:31 AM [facility] LAB MCH 32.3(H) 27.0 - 32.0 pcg LAB HEMETOLOGY METHOD 05/07/2024 10:31 AM [facility] LAB MCHC 29.7(L) 32.0 - 37.0 g/dL LAB HEMETOLOGY METHOD 05/07/2024 10:31 AM [facility] LAB RDW 18.4(H) 11.0 - 15.0 % LAB HEMETOLOGY METHOD 05/07/2024 10:31 AM [facility] LAB Platelets 265 130 - 400 K/mcL LAB HEMETOLOGY METHOD 05/07/2024 10:31 AM [facility] LAB MPV 11.4(H) 7.0 - 11.0 FL LAB HEMETOLOGY METHOD 05/07/2024 10:31 AM [facility] LAB NRBC 0.0 <1.0 % LAB HEMETOLOGY METHOD 05/07/2024 10:31 AM [facility] LAB NRBC Absolute 0.00 <0.10 K/mcL LAB HEMETOLOGY METHOD 05/07/2024 10:31 AM [facility] LAB Neutrophils Relative 54.4 % LAB HEMETOLOGY METHOD 05/07/2024 10:31 AM [facility] LAB Lymphocytes Relative 26.7 % LAB HEMETOLOGY METHOD 05/07/2024 10:31 AM [facility] Monocytes Relative 15.0 % LAB HEMETOLOGY METHOD 05/07/2024 10:31 AM [facility] LAB Eosinophils Relative 0.0 % LAB HEMETOLOGY METHOD 05/07/2024 10:31 AM [facility] LAB Basophils Relative 1.2 % LAB HEMETOLOGY METHOD 05/07/2024 10:31 AM [facility] LAB Immature Granulocytes Relative 2.7 % LAB HEMETOLOGY METHOD 05/07/2024 10:31 AM [facility] LAB Neutrophils Absolute 4.07 1.50 - 7.00 K/mcL LAB HEMETOLOGY METHOD 05/07/2024 10:31 AM [facility] LAB Lymphocytes Absolute 2.00 1.00 - 5.00 K/mcL LAB HEMETOLOGY METHOD 05/07/2024 10:31 AM [facility] LAB Monocytes Absolute 1.12(H) 0.20 - 1.00 K/mcL LAB HEMETOLOGY METHOD 05/07/2024 10:31 AM EST [facility] Eosinophils Absolute 0.00 0.00 - 0.50 K/mcL LAB HEMETOLOGY METHOD 05/07/2024 10:31 AM EST [facility] Basophils Absolute 0.09 0.00 - 0.20 K/mcL LAB HEMETOLOGY METHOD 05/07/2024 10:31 AM EST [facility] Immature Granulocytes Absolute 0.20(H) 0.00 - 0.03 K/[facility] LAB HEMETOLOGY METHOD 05/07/2024 10:31 AM EST [facility] Blood Venous blood specimen / Unknown Venipuncture / Unknown 05/07/2024 7:55 AM EST 05/07/2024 10:01 AM EST us Ray Lee MD LAB BLOOD ORDERABLES Final Resul t Performing Organization Address City/[facility]/ZIP Co de Phone Number [facility] LAB [address] [place] [address], [place] [phone] * Valproic acid level, total (05/07/2024 7:55 AM EST) Only the most recent of2 resultswithin the time period is included. Valproic Acid, Total 71 50 - 100 mcg/mL LAB CHEMISTRY METHOD 05/07/2024 10:47 AM EST [facility] Blood Venous blood specimen / Unknown Venipuncture / Unknown 05/07/2024 7:55 AM EST 05/07/2024 10:01 AM EST us Ray Lee MD LAB BLOOD ORDERABLES Final Resul t Performing Organization Address City/[facility]/ZIP Co de Phone Number [facility] [address] [place] [address], [place] [phone] * (ABNORMAL) Comprehensive metabolic panel (05/07/2024 7:55 AM EST) Only the most recent of2 resultswithin the time period is included. Sodium 137 133 - 145 mmol/L LAB CHEMISTRY METHOD 05/07/2024 10:52 AM [facility] LAB Potassium 4.2 3.5 - 5.5 mmol/L LAB CHEMISTRY METHOD 05/07/2024 10:52 AM [facility] LAB Chloride 103 96 - 110 mmol/L LAB CHEMISTRY METHOD 05/07/2024 10:52 AM [facility] LAB CO2 23 21 - 32 mmol/L LAB CHEMISTRY METHOD 05/07/2024 10:52 AM [facility] LAB Anion Gap 11 3 - 11 LAB CHEMISTRY METHOD 05/07/2024 10:52 AM [facility] LAB Glucose 80 70 - 100 mg/dL LAB CHEMISTRY METHOD 05/07/2024 10:52 AM [facility] LAB BUN 16 5 - 25 mg/dL LAB CHEMISTRY METHOD 05/07/2024 10:52 AM [facility] LAB Creatinine 0.65 0.50 - 1.10 mg/dL LAB CHEMISTRY METHOD 05/07/2024 10:52 AM [facility] LAB eGFR 101 >=60 mL/min/1. 73m2 LAB CHEMISTRY METHOD 05/07/2024 10:52 AM [facility] LAB Comment:Calculation based on the??Chronic Kidney Disease Epidemiology Collaboration (CKD-EPI) equation refit??without adjustment for race. BUN/Creatinine Ratio 24.6 LAB CHEMISTRY METHOD 05/07/2024 10:52 AM [facility] LAB Calcium 8.8 8.5 - 10.5 mg/dL LAB CHEMISTRY METHOD 05/07/2024 10:52 AM [facility] LAB AST (SGOT) 25 10 - 42 unit/L LAB CHEMISTRY METHOD 05/07/2024 10:52 AM [facility] LAB ALT (SGPT) 9(L) 10 - 60 unit/L LAB CHEMISTRY METHOD 05/07/2024 10:52 AM EST [facility] Alkaline Phosphatase 70 42 - 121 unit/L LAB CHEMISTRY METHOD 05/07/2024 10:52 AM EST [facility] Total Protein 6.0 6.0 - 8.0 g/dL LAB CHEMISTRY METHOD 05/07/2024 10:52 AM [facility] LAB Albumin 2.7(L) 3.2 - 5.0 g/dL LAB CHEMISTRY METHOD 05/07/2024 10:52 AM [facility] Total Bilirubin 0.4 0.0 - 1.4 mg/dL LAB CHEMISTRY METHOD 05/07/2024 10:52 AM [facility] LAB Blood Venous blood specimen / Unknown Venipuncture / Unknown 05/07/2024 7:55 AM EST 05/07/2024 10:01 AM EST Ray Lee MD LAB BLOOD ORDERABLES Final Resul t [facility] [address] [place] [address], [place] [phone] from Last 3 Months Insurance [address] [place] [address] MEDICARE MEDICAID - [place] Advance Directives Documents on File Type Date Recorded Patient Latex Caster Expl anation Health Care Decision (hx) 09/07/2020 AD WHITLEY DIRECTIVE Health Care Decision (hx) 09/07/2020 AD WHITLEY DIRECTIVE Health Care Decision (hx) 09/07/2020 AD WHITLEY DIRECTIVE Health Care Decision (hx) 09/07/2020 AD WHITLEY DIRECTIVE Care Teams Electrolysis Engineer Relationship Specialty Start Date End Date Cassandra Oconnor MD [address] [place] [address] PCP - General 10/26/10
--- OUTSIDE RECORDS SUMMARY | 2024-08-01 17:28 | XMS_ITS | Encounter Summary ---
Author Organization [facility] Address [address] [place] [address] Care Team Providers Care Folder Gluer Operator Name Role Phone Cassandra Oconnor MD Primary Care Provider [phone] Encounter Details Date Type Department Care Team (Late Contact Info) Description 05/09/2024 Lab Requisition [facility] Lab [address] [place] [address] Ray Lee MD [address] [place] [phone] Other terminal carman (current) drug therapy Social History Tobacco Use [...] Info) Description 08/02/2024 11:00 AM EST Appointment [facility] PET Scan [address] [place] [address] documented as of this encounter Procedures Procedure Name Priority Date/Time Associated Diagnosis Comments COMPLETE BLOOD COUNT Routine 05/10/2024 8:37 AM EST Other longterm (current) drug therapy BASIC METABOLIC PANEL Routine 05/10/2024 8:37 AM EST Other terminal carman (current) drug therapy documented in this encounter Results * Basic metabolic panel (05/10/2024 8:37 AM EST) Sodium 140 133 - 145 mmol/L LAB CHEMISTRY METHOD 05/10/2024 11:21 AM [facility] Potassium 4.7 3.5 - 5.5 mmol/L LAB CHEMISTRY METHOD 05/10/2024 11:21 AM [facility] LAB Comment:Hemolysis present Chloride 103 96 - 110 mmol/L LAB CHEMISTRY METHOD 05/10/2024 11:21 AM [facility] LAB CO2 26 21 - 32 mmol/L LAB CHEMISTRY METHOD 05/10/2024 11:21 AM [facility] LAB Anion Gap 11 3 - 11 LAB CHEMISTRY METHOD 05/10/2024 11:21 AM [facility] LAB Glucose 95 70 - 100 mg/dL LAB CHEMISTRY METHOD 05/10/2024 11:21 AM [facility] LAB BUN 16 5 - 25 mg/dL LAB CHEMISTRY METHOD 05/10/2024 11:21 AM [facility] LAB Creatinine 0.72 0.50 - 1.10 mg/dL LAB CHEMISTRY METHOD 05/10/2024 11:21 AM [facility] LAB eGFR 96 >=60 mL/min/1. 73m2 LAB CHEMISTRY METHOD 05/10/2024 11:21 AM [facility] LAB Comment:Calculation based on the??Chronic Kidney Disease Epidemiology Collaboration (CKD-EPI) equation refit??without adjustment for race. BUN/Creatinine Ratio 22.2 LAB CHEMISTRY METHOD 05/10/2024 11:21 AM [facility] LAB Calcium 9.2 8.5 - 10.5 mg/dL LAB CHEMISTRY METHOD 05/10/2024 11:21 AM [facility] LAB Blood Venous blood specimen / Unknown Venipuncture / Unknown 05/10/2024 8:37 AM EST 05/10/2024 10:31 AM EST us Ray Lee MD LAB BLOOD ORDERABLES Final Resul t [facility] LAB [address] [place] [address], * (ABNORMAL) Complete blood count (05/10/2024 8:37 AM EST) WBC 9.8 4.8 - 10.8 K/mcL LAB HEMETOLOGY METHOD 05/10/2024 10:50 AM EST [facility] LAB RBC 4.00 3.80 - 4.80 M/mcL LAB HEMETOLOGY METHOD 05/10/2024 10:50 AM [facility] LAB Hemoglobin 12.5 11.5 - 16.0 g/dL LAB HEMETOLOGY METHOD 05/10/2024 10:50 AM [facility] LAB Hematocrit 42.1 35.0 - 47.0 % LAB HEMETOLOGY METHOD 05/10/2024 10:50 AM [facility] LAB MCV 105.5(H) 79.0 - 98.0 FL LAB HEMETOLOGY METHOD 05/10/2024 10:50 AM [facility] LAB MCH 31.3 27.0 - 32.0 pcg LAB HEMETOLOGY METHOD 05/10/2024 10:50 AM [facility] LAB MCHC 29.7(L) 32.0 - 37.0 g/dL LAB HEMETOLOGY METHOD 05/10/2024 10:50 AM [facility] LAB RDW 18.6(H) 11.0 - 15.0 % LAB HEMETOLOGY METHOD 05/10/2024 10:50 AM [facility] LAB Platelets 390 130 - 400 K/mcL LAB HEMETOLOGY METHOD 05/10/2024 10:50 AM [facility] LAB MPV 11.2(H) 7.0 - 11.0 FL LAB HEMETOLOGY METHOD 05/10/2024 10:50 AM [facility] LAB NRBC 0.0 <1.0 % LAB HEMETOLOGY METHOD 05/10/2024 10:50 AM EST [facility] LAB NRBC Absolute 0.00 <0.10 K/mcL LAB HEMETOLOGY METHOD 05/10/2024 10:50 AM EST [facility] LAB Blood Venous blood specimen / Unknown Venipuncture / Unknown 05/10/2024 8:37 AM EST 05/10/2024 10:31 AM EST us Ray Lee MD LAB BLOOD ORDERABLES Final Resul t [facility] LAB [address] [place] [address], documented in this encounter Visit Diagnoses Diagnosis Other terminal carman (current) drug therapy documented in this encounter Care Teams Folder Gluer Operator Relationship Specialty Start Date End Date Cassandra Oconnor MD [address] [place] [address] PCP - General 10/26/10 documented as of this encounter
--- OUTSIDE RECORDS SUMMARY | 2024-08-01 17:28 | XMS_ITS | Encounter Summary ---
Author Organization [facility] Address [address] [place] [phone] Care Team Providers Care Caddy Name Role Phone Cassandra Oconnor MD Primary Care Provider [phone] Encounter Details Date Type Department Care Team (Late Contact Info) Description 05/23/2024 Lab Requisition [facility] Lab [address] [place] [address] Ray Lee MD [address] [place] [phone] Other meterman (current) drug therapy Social History Tobacco [facility] [address] [place] [address] documented as of this encounter Visit Diagnoses Diagnosis Other meterman (current) drug therapy documented in this encounter Care Teams Caddy Relationship Specialty Start Date End Date Cassandra Oconnor MD [address] [place], [place] PCP - General 10/26/10 documented as of this encounter
--- OUTSIDE RECORDS SUMMARY | 2024-08-01 17:28 | XMS_ITS | Continuity of Care Document ---
Author Organization [address] [place] [address]- Care Team Providers Care Apparel Manager Name Role Phone Denny Armstrong MD, Chelsea Muniz Primary Care Physician Encounter [facility] Date(s): 06/26/24 - 07/26/[address] [place], [place] [address] Encounter Type: Triage Allergies, Adverse Reactions, Alerts [...] Ordered Repeat number: 1 Brava barrier rings (829632) Brava barrier rings ([id number]), See Instructions, # 20 each, Refills 11, [...] 2:54:00 PM EDT, Route to Pharmacy Electronically, [facility], Partial fill upon patient request if the prescription is for a schedule II opioid drug., 163, cm, 09/02/21 12:26:00 EDT, Height, 90.3, kg, 09/02/21 12:26:00 EDT, Dry Weight Start Date: 09/02/21 Status: Ordered Quantity: 60.0 Unit: capsule Repeat number: 4 Coloplast Sensura #49520 [employer] #[id number], See Instructions, # 20 each, Refills 11, [...] each Repeat number: 1 ium nitrile gloves #[id number] ium nitrile gloves #[id number], See Instructions, # 100 each, Refills 6, [...] tablet,12 Refills, Maintenance, 02/26/24 1:41:00 PM EDT, [id number], Partial fill upon patient request if the [...] Status: Ordered Repeat number: 1 nystatin topical [id number] u/gm cream 1 application, Topically, 2 times [...] Care Nurse Name: Sussy Paredes RN Position: [facility] RN Member Role: Primary Care Nurse Name: Kamari Cordon RN Position: [facility] RN Member Role: Primary Care Nurse Name: Krys Coates RN Position: [facility] ED RN W/OE and Tasks Member Role: Primary Care Nurse Name: Elizabeth Olson RN Position: [facility] RN Supv Member Role: Primary Care Nurse Name: Katerin Sterling RN Position: [facility] RN Member Role: Primary Care Nurse Name: Miguel Angel Ravi RN Position: [facility] RN Member Role: Primary Care Nurse Name: Alta Ocampo RN Position: [facility] RN Member Role: Primary Care Nurse Name: Raya Sandoval RN Position: [facility] RN Member Role: Primary Care Nurse Name: Miriam Bishop RN Position: [facility] RN Member Role: Primary Care Nurse Name: Noy Johnson RN Position: [facility] RN Member Role: Primary Care Nurse Name: Tali Haile RN Position: [facility] RN Member Role: Primary Care Nurse Name: Tatianna Newby RN Position: [facility] SN RN Member Role: Primary Care Nurse Name: Polo Telles RN Position: [facility] RN Member Role: Primary Care Nurse Name: Aicha Castro RN Position: [facility] RN Member Role: Primary Care Nurse Name: Karol Mims RN Position: [facility] RN Member Role: Primary Care Nurse Name: Jessi Hernandez RN Position: [facility] RN Member Role: Primary Care Nurse Name: Thalia Brito RN Position: [facility] RN Member Role: Primary Care Nurse Name: Denny Armstrong MD , Chelsea Muniz Position: Reference Physician Member Role: PCP Address: [address] [place] [address] [address] [place] [address]- Telecom: Name: Dena Navas RN Position: [facility] RN Member Role: Primary Care Nurse Name: Korin Walters RN Position: [facility] RN Member Role: Primary Care Nurse Name: Lian [place] RN Position: [facility] Hospital Booster Plant Operator Member Role: Primary Care Nurse Name: Timothy Foster RN Position: [facility] RN Member Role: Primary Care Nurse Care Team Related Persons Name: MCKAYLA VASQUEZ Insurance Providers Guarantor name: [facility] Plan Information #: 1 Payer: MEDICARE PART B OUTPT Member Number: NA Policy Number: NA Group Number: NA Health Plan Information #: 2 Payer: [facility] Member Number: NA Policy Number: NA Group Number: NA
--- OUTSIDE RECORDS SUMMARY | 2024-08-01 17:28 | XMS_ITS | Encounter Summary ---
Author Organization [facility] Address [id number] [place] [id number] Care Team Providers Care Worsted Winder Name Role Phone Cassandra Oconnor MD Primary Care Provider [phone] Encounter Details Date Type Department Care Team (Late Contact Info) Description 05/03/2024 Lab Requisition [facility] - Main Lab [address] [place] [address] Ray Lee MD [address] [place] [phone] Other twister tender paper (current) drug therapy Social History Tobacco Use [...] Info) Description 08/02/2024 11:00 AM EST Appointment [facility] PET Scan [address] [place] [address] documented as of this encounter Procedures Procedure Name Priority Date/Time Associated Diagnosis Comments COMPLETE BLOOD COUNT Routine 05/03/2024 5:52 AM EST Other longterm (current) drug therapy VALPROIC ACID LEVEL, TOTAL Routine 05/03/2024 5:52 AM EST Other twister tender paper (current) drug therapy COMPREHENSIVE METABOLIC PANEL Routine 05/03/2024 5:52 AM EST Other twister tender paper (current) drug therapy documented in this encounter Results * Valproic acid level, total (05/03/2024 5:52 AM EST) Pathologist [facility] Valproic Acid, Total 77 50 - 100 mcg/mL LAB CHEMISTRY METHOD 05/03/2024 8:18 AM EST [facility] Blood Venous blood specimen / Unknown Venipuncture / Unknown 05/03/2024 5:52 AM EST 05/03/2024 7:30 AM EST us Ray Lee MD LAB BLOOD ORDERABLES Final Resul t [facility] [address] [place] [address], [place] [phone] * (ABNORMAL) Comprehensive metabolic panel (05/03/2024 5:52 AM EST) [facility] Sodium 135 133 - 145 mmol/L LAB CHEMISTRY METHOD 05/03/2024 8:18 AM EST [facility] Potassium 4.5 3.5 - 5.5 mmol/L LAB CHEMISTRY METHOD 05/03/2024 8:18 AM [facility] Chloride 101 96 - 110 mmol/L LAB CHEMISTRY METHOD 05/03/2024 8:18 AM [facility] CO2 27 21 - 32 mmol/L LAB CHEMISTRY METHOD 05/03/2024 8:18 AM [facility] Anion Gap 7 3 - 11 LAB CHEMISTRY METHOD 05/03/2024 8:18 AM [facility] Glucose 97 70 - 100 mg/dL LAB CHEMISTRY METHOD 05/03/2024 8:18 AM [facility] BUN 19 5 - 25 mg/dL LAB CHEMISTRY METHOD 05/03/2024 8:18 AM [facility] Creatinine 0.90 0.50 - 1.10 mg/dL LAB CHEMISTRY METHOD 05/03/2024 8:18 AM [facility] eGFR 73 >=60 mL/min/1. 73m2 LAB CHEMISTRY METHOD 05/03/2024 8:18 AM [facility] Comment:Calculation based on the??Chronic Kidney Disease Epidemiology Collaboration (CKD-EPI) equation refit??without adjustment for race. BUN/Creatinine Ratio 21.1 LAB CHEMISTRY METHOD 05/03/2024 8:18 AM [facility] Calcium 9.0 8.5 - 10.5 mg/dL LAB CHEMISTRY METHOD 05/03/2024 8:18 AM [facility] AST (SGOT) 34 10 - 42 unit/L LAB CHEMISTRY METHOD 05/03/2024 8:18 AM [facility] ALT (SGPT) 13 10 - 60 unit/L LAB CHEMISTRY METHOD 05/03/2024 8:18 AM [facility] Alkaline Phosphatase 81 42 - 121 unit/L LAB CHEMISTRY METHOD 05/03/2024 8:18 AM [facility] Total Protein 6.1 6.0 - 8.0 g/dL LAB CHEMISTRY METHOD 05/03/2024 8:18 AM [facility] Albumin 3.1(L) 3.2 - 5.0 g/dL LAB CHEMISTRY METHOD 05/03/2024 8:18 AM [facility] Total Bilirubin 0.2 0.0 - 1.4 mg/dL LAB CHEMISTRY METHOD 05/03/2024 8:18 AM [facility] Blood Venous blood specimen / Unknown Venipuncture / Unknown 05/03/2024 5:52 AM EST 05/03/2024 7:30 AM EST us Ray Lee MD LAB BLOOD ORDERABLES Final Resul t [facility] [address] [place] [address], [place] [phone] * (ABNORMAL) Complete blood count (05/03/2024 5:52 AM EST) [facility] WBC 10.2 4.8 - 10.8 K/mcL LAB HEMETOLOGY METHOD 05/03/2024 7:53 AM [facility] RBC 3.60(L) 3.80 - 4.80 M/mcL LAB HEMETOLOGY METHOD 05/03/2024 7:53 AM [facility] Hemoglobin 11.7 11.5 - 16.0 g/dL LAB HEMETOLOGY METHOD 05/03/2024 7:53 AM [facility] Hematocrit 38.3 35.0 - 47.0 % LAB HEMETOLOGY METHOD 05/03/2024 7:53 AM [facility] MCV 106.1(H) 79.0 - 98.0 FL LAB HEMETOLOGY METHOD 05/03/2024 7:53 AM [facility] MCH 32.4(H) 27.0 - 32.0 pcg LAB HEMETOLOGY METHOD 05/03/2024 7:53 AM [facility] MCHC 30.5(L) 32.0 - 37.0 g/dL LAB HEMETOLOGY METHOD 05/03/2024 7:53 AM [facility] RDW 17.5(H) 11.0 - 15.0 % LAB HEMETOLOGY METHOD 05/03/2024 7:53 AM [facility] Platelets 275 130 - 400 K/mcL LAB HEMETOLOGY METHOD 05/03/2024 7:53 AM [facility] MPV 10.6 7.0 - 11.0 FL LAB HEMETOLOGY METHOD 05/03/2024 7:53 AM [facility] NRBC 0.0 <1.0 % LAB HEMETOLOGY METHOD 05/03/2024 7:53 AM [facility] NRBC Absolute 0.00 <0.10 K/[facility] LAB HEMETOLOGY METHOD 05/03/2024 7:53 AM EST [facility] Blood Venous blood specimen / Unknown Venipuncture / Unknown 05/03/2024 5:52 AM EST 05/03/2024 7:30 AM EST us Ray Lee MD LAB BLOOD ORDERABLES Final Resul t [facility] [address] [place] [address], documented in this encounter Visit Diagnoses Diagnosis Other twister tender paper (current) drug therapy documented in this encounter Care Teams Worsted Winder Relationship Specialty Start Date End Date Cassandra Oconnor MD [address] [place] [address] PCP - General 10/26/10 documented as of this encounter
== END ==
LOC: HO.CARD 14:20
PROVIDERS: PCP Internal Medicine; Visit Provider Internal Medicine
DX: Z01.818 Encounter for other preprocedural examination (principal)
CPT/HCPCS: 93005

== ENCOUNTER → 2024-08-01 14:39 | Outpatient (BNV) | payer MEDICARE, MEDICAID, SELFPAY | PROVIDERS: PCP Internal Medicine; Visit Provider Internal Medicine Cardiovascular Disease | DX: R94.31 Abnormal electrocardiogram [ECG] [EKG] (principal) | CPT/HCPCS: 93010 ==

== ENCOUNTER 2024-08-05 08:33 | Day surgery (SDC) | payer MEDICARE, MEDICAID, SELFPAY ==
[2024-08-02 08:15] VITALS: BMI 30.9
--- NOTE | 2024-08-02 09:42 | P.CONAN_ITS ---
HPI - Anesthesia Eval Consult details Narrative: 59yo F for Right Cataract Extraction IOL Insertion No previous cataract on record Medically optimized. Afib (eliquis), COPD, CHF (per clearance pound per week weight loss), Lung ca s/p LLL 2020, follows heme on for colo (s/p ostomy) and lung ca PMFSH Active Problems Active Problems: All Active Problems Left shoulder pain (Acute) Epigastric abdominal pain (Acute) Pre-op evaluation (Acute) Skin lesions (Acute) UTI (urinary tract infection) (Acute) Low back pain with left-sided sciatica (Acute) Moderate major depression (Acute) Thrombocythemia (Acute) Anemia (Acute) Melena (Acute) Cervicalgia (Acute) Tingling (Acute) Migraine (Acute) Elevated fasting glucose (Acute) Chronic pancreatitis (Acute) Atherosclerotic cardiovascular disease (Acute) Screening for hypothyroidism (Acute) Candidiasis, intertrigo (Acute) Smoker (Acute) GERD (gastroesophageal reflux disease) (Acute) Encounter to establish care (Acute) Iron deficiency anemia (Acute) Tension headache (Acute) Chronic back pain (Acute) Anxiety (Acute) Encounter for medication review (Acute) PAF (paroxysmal atrial fibrillation) (Acute ~2020) Colostomy in place (Acute ~2020) Cancer of lower lobe of left lung (Acute ~2020) Adenocarcinoma of sigmoid colon (Chronic ~2020) CAD (coronary artery disease) (Acute) Congestive heart failure (Acute) Hypoxia (Acute) COPD (chronic obstructive pulmonary disease) (Acute) HTN (hypertension) (Acute) High cholesterol (Acute) IVY (obstructive sleep apnea) (Acute) Peripheral vascular disease (Acute) Personal history of nicotine dependence (Acute) PTSD (post-traumatic stress disorder) (Acute) Renal failure (Acute) Pericardial effusion (Acute) No natural teeth (Acute) Hypernatremia (Acute) GI bleed (Acute) COVID-19 vaccine series completed (Acute) Back pain with history of spinal surgery (Acute) Hematochezia (Acute) Past Medical History Medical History (Updated 07/24/24 @ 13:19 by Aissatou Ferguson NP) Acute on chronic diastolic CHF (congestive heart failure) CHF exacerbation Respiratory failure with hypoxia and hypercapnia Chronic confusion Depression Smoker Chronic back pain Colostomy in place (~2020) Personal history of nicotine dependence Polysubstance (including opioids) dependence, binge pattern Atrial fibrillation with rapid ventricular response Congestive heart failure Restrictive lung disease COPD (chronic obstructive pulmonary disease) No natural teeth COVID-19 vaccine series completed History of COVID-19 (~04/2020) Oxygen dependent Pericardial effusion Other and unspecified hyperlipidemia Essential hypertension Peripheral vascular disease Preoperative cardiovascular examination Bilateral pneumonia Adenocarcinoma of sigmoid colon (~2020) Hypernatremia GI bleed UTI (urinary tract infection) Pleural effusion, left Colon cancer (~2020) IVY (obstructive sleep apnea) Cancer of lower lobe of left lung (~2020) GERD (gastroesophageal reflux disease) Acute and chronic respiratory failure Lung cancer Obesity Hypoventilation associated with obesity Obesity hypoventilation syndrome Respiratory failure with hypoxia and hypercapnia Rotator cuff strain Hypoxia Pneumonia Restless legs syndrome (RLS) Sleep disorder Bipolar disorder (~2009) Back pain with history of spinal surgery Renal failure Fibromyalgia Depression High cholesterol PTSD (post-traumatic stress disorder) CAD (coronary artery disease) HTN (hypertension) Family History Family History (Updated 07/23/24 @ 09:27 by Chelsea Armstrong MD) Maternal Aunt Breast cancer Stroke COPD (chronic obstructive pulmonary disease) Maternal Aunt Breast cancer COPD (chronic obstructive pulmonary disease) Mother Uterine cancer COPD (chronic obstructive pulmonary disease) HTN (hypertension) Heart disease Mental health disorder Maternal Uncle Stroke Paternal Grandmother Heart attack Parkinsons disease Sister Diabetes IBS (irritable bowel syndrome) Son HTN (hypertension) Substance use disorder Daughter HTN (hypertension) Father HTN (hypertension) Parkinsons disease Brother Heart disease Family/Other Mental health disorder Family history of problems with anesthesia: No Surgical History Surgical History History of partial colectomy (~12/2020) History of cardiac cath (~2010) History of hysterectomy (~1990) History of cholecystectomy History of appendectomy (~1982) History of colonoscopy (~08/2020) History of lobectomy of lung (~08/2020) History of esophagogastroduodenoscopy (EGD) History of bunionectomy (~1977) History of back surgery History of Problems with Anesthesia: No Social History Social History Household Members: Spouse Housing: Apartment Are you a primary personal care service provider to a significant other at home: No Do you presently have visiting nurse or other home services: No Alcohol intake: never Comment: sitter at bedside Patient Tobacco Use Status: Former Tobacco user Tobacco use type: Cigarette Cigarettes Per Day: 4 Years Smoked: 40 e-Cigarette/Vaping Use: Former Use Second Hand Smoke Exposure: No Advance Directives Date on File: 10/05/22 service: No Current occupational status: unemployed and disabled Cognitive needs: Yes (walker ) Hearing needs: No Vision needs: No Meds Allergies Allergy/AdvReac Type Severity Reaction Status Date / Time Penicillins Allergy Mild Rash Verified 07/23/24 09:16 venlafaxine [From Effexor] Allergy Mild Rash Verified 07/23/24 09:16 cyclobenzaprine Allergy Unknown Unknown Verified 07/23/24 09:16 [Cyclobenzaprine] topiramate [From Topamax] Allergy Unknown Unknown Verified 07/23/24 09:16 levofloxacin [From Levaquin] AdvReac Severe Diarrhea Verified 07/23/24 09:16 Sulfa (Sulfonamide AdvReac Severe Diarrhea Verified 07/23/24 09:16 Antibiotics) fentanyl [FENTANYL] AdvReac Intermediate Hallucinati Verified 07/23/24 09:16 ons tramadol AdvReac Intermediate Hallucinati Verified 07/23/24 09:16 ons Home Medications ?Medication ?Instructions ?Recorded ?Confirmed ?Last Taken ?Type blood pressure monitor #1 ea 10/22/20 08/02/24 11/28/20 History blood pressure test kit-large #1 ea 10/22/20 08/02/24 11/28/20 History docusate sodium 100 mg capsule 100 mg PO BID PRN constipation 09/21/21 08/02/24 2 Days Ago History ~04/27/24 divalproex 500 mg tablet,extended 1,000 mg PO BEDTIME 04/15/24 08/02/24 2 Days Ago History release 24 hr ~04/27/24 metoprolol succinate 50 mg 50 mg PO DAILY 04/15/24 08/02/24 2 Days Ago History tablet,extended release 24 hr ~04/27/24 fluticasone furoate 100 1 ea inhalation DAILY 04/29/24 08/02/24 2 Days Ago History mcg-vilanterol 25 mcg/dose ~04/27/24 inhalation powder (Breo Ellipta) Exam Height,Weight and Vital Signs: Height 5 ft 5 in Weight 84.368 kg Pertinent Lab Results Pertinent Lab Results: Laboratory Tests 07/24/24 12:55 WBC 7.9 Hgb 10.5 L Hct 32.3 L Plt Count 263 Sodium 141 Potassium 3.4 D Chloride 104 Carbon Dioxide 28 BUN 12 Creatinine 0.58 Narrative Narrative: EKG 07/2024 Vent. Rate : 91 BPM Atrial Rate : 91 BPM P-R Int : 146 ms QRS Dur : 76 ms QT Int : 388 ms P-R-T Axes : 58 53 33 degrees QTcB Int : 477 ms Normal sinus rhythm Cannot rule out Anterior infarct , age undetermined Abnormal ECG When compared with ECG of 14-Apr-2024 14:51, No significant change was found Assessment and Plan Assessment Anesthesia Assessment: Chart Reviewed Final Anesthetic Review Family History of Problems with Anesthesia: No History of Problems with Anesthesia: No
[2024-08-05 09:11] VITALS: BP 118/68; PULSE 72; RESP 16; TEMP 36.2; O2SAT 94
[2024-08-05] MEDS: Tetracaine HCl/PF 0.5% Oph Sol 4 ML DROPS 1 DROP EYE-RIGHT ×2 (09:39→10:01)
[2024-08-05] MEDS: Cyclopentolate 1 % Ophth Sol 2 ML DRPBTL 1 DROP EYE-RIGHT ×3 (09:42→09:58)
[2024-08-05] MEDS: Tropicamide 1 % Ophth Sol 3 ML BTL 1 DROP EYE-RIGHT ×3 (09:44→09:59)
[2024-08-05] MEDS: Ketorolac Tromethamine 0.5% Op 5 ML DROPS 1 DROP EYE-RIGHT ×3 (09:46→10:00)
[2024-08-05] MEDS: Phenylephrine HCL 2.5% Oph SoL 2 ML BOTTLE 1 DROP EYE-RIGHT ×3 (09:50→10:02)
[2024-08-05] MEDS: Lactated Ringers 500 ML 50 ML IV (09:57)
--- NOTE | 2024-08-05 09:57 | P.CONAN_ITS ---
[facility] Active Problems Active Problems: All Active Problems (Updated 07/24/24 @ 13:19 by Aissatou Ferguson NP) Left shoulder pain (Acute) Epigastric abdominal pain (Acute) Pre-op evaluation (Acute) Skin lesions (Acute) UTI (urinary tract infection) (Acute) Low back pain with left-sided sciatica (Acute) Moderate major depression (Acute) Thrombocythemia (Acute) Anemia (Acute) Melena (Acute) Cervicalgia (Acute) Tingling (Acute) Migraine (Acute) Elevated fasting glucose (Acute) Chronic pancreatitis (Acute) Atherosclerotic cardiovascular disease (Acute) Screening for hypothyroidism (Acute) Candidiasis, intertrigo (Acute) Smoker (Acute) GERD (gastroesophageal reflux disease) (Acute) Encounter to establish care (Acute) Iron deficiency anemia (Acute) Tension headache (Acute) Chronic back pain (Acute) Anxiety (Acute) Encounter for medication review (Acute) PAF (paroxysmal atrial fibrillation) (Acute ~2020) Colostomy in place (Acute ~2020) Cancer of lower lobe of left lung (Acute ~2020) Adenocarcinoma of sigmoid colon (Chronic ~2020) CAD (coronary artery disease) (Acute) Congestive heart failure (Acute) Hypoxia (Acute) COPD (chronic obstructive pulmonary disease) (Acute) HTN (hypertension) (Acute) High cholesterol (Acute) IVY (obstructive sleep apnea) (Acute) Peripheral vascular disease (Acute) Personal history of nicotine dependence (Acute) PTSD (post-traumatic stress disorder) (Acute) Renal failure (Acute) Pericardial effusion (Acute) No natural teeth (Acute) Hypernatremia (Acute) GI bleed (Acute) COVID-19 vaccine series completed (Acute) Back pain with history of spinal surgery (Acute) Hematochezia (Acute) Past Medical History Medical History Acute on chronic diastolic CHF (congestive heart failure) CHF exacerbation Respiratory failure with hypoxia and hypercapnia Chronic confusion Depression Smoker Chronic back pain Colostomy in place (~2020) Personal history of nicotine dependence Polysubstance (including opioids) dependence, binge pattern Atrial fibrillation with rapid ventricular response Congestive heart failure Restrictive lung disease COPD (chronic obstructive pulmonary disease) No natural teeth COVID-19 vaccine series completed History of COVID-19 (~04/2020) Oxygen dependent Pericardial effusion Other and unspecified hyperlipidemia Essential hypertension Peripheral vascular disease Preoperative cardiovascular examination Bilateral pneumonia Adenocarcinoma of sigmoid colon (~2020) Hypernatremia GI bleed UTI (urinary tract infection) Pleural effusion, left Colon cancer (~2020) IVY (obstructive sleep apnea) Cancer of lower lobe of left lung (~2020) GERD (gastroesophageal reflux disease) Acute and chronic respiratory failure Lung cancer Obesity Hypoventilation associated with obesity Obesity hypoventilation syndrome Respiratory failure with hypoxia and hypercapnia Rotator cuff strain Hypoxia Pneumonia Restless legs syndrome (RLS) Sleep disorder Bipolar disorder (~2009) Back pain with history of spinal surgery Renal failure Fibromyalgia Depression High cholesterol PTSD (post-traumatic stress disorder) CAD (coronary artery disease) HTN (hypertension) Functional capacity: independent ambulation Patient : No Family History Family History Maternal Aunt Breast cancer Stroke COPD (chronic obstructive pulmonary disease) Maternal Aunt Breast cancer COPD (chronic obstructive pulmonary disease) Mother Uterine cancer COPD (chronic obstructive pulmonary disease) HTN (hypertension) Heart disease Mental health disorder Maternal Uncle Stroke Paternal Grandmother Heart attack Parkinsons disease Sister Diabetes IBS (irritable bowel syndrome) Son HTN (hypertension) Substance use disorder Daughter HTN (hypertension) Father HTN (hypertension) Parkinsons disease Brother Heart disease Family/Other Mental health disorder Family history of problems with anesthesia: No Surgical History Surgical History History of partial colectomy (~12/2020) History of cardiac cath (~2010) History of hysterectomy (~1990) History of cholecystectomy History of appendectomy (~1982) History of colonoscopy (~08/2020) History of lobectomy of lung (~08/2020) History of esophagogastroduodenoscopy (EGD) History of bunionectomy (~1977) History of back surgery History of Problems with Anesthesia: No Social History Social History Household Members: Spouse Housing: Apartment Are you a primary urgent care nurse practitioner to a significant other at home: No Do you presently have visiting nurse or other home services: No Alcohol intake: never Comment: sitter at bedside Patient Tobacco Use Status: Former Tobacco user Tobacco use type: Cigarette Cigarettes Per Day: 4 Years Smoked: 40 e-Cigarette/Vaping Use: Former Use Second Hand Smoke Exposure: No Advance Directives: Yes Advance Directives Information Provided: No Advance Directives on File: Yes Advance Directives Date on File: 10/05/22 Patient : No : No service: No Current occupational status: unemployed and disabled Cognitive needs: Yes (walker ) Hearing needs: No Vision needs: No Meds Allergies Allergy/AdvReac Type Severity Reaction Status Date / Time Penicillins Allergy Mild Rash Verified 07/23/24 09:16 venlafaxine [From Effexor] Allergy Mild Rash Verified 07/23/24 09:16 cyclobenzaprine Allergy Unknown Unknown Verified 07/23/24 09:16 [Cyclobenzaprine] topiramate [From Topamax] Allergy Unknown Unknown Verified 07/23/24 09:16 levofloxacin [From Levaquin] AdvReac Severe Diarrhea Verified 07/23/24 09:16 Sulfa (Sulfonamide AdvReac Severe Diarrhea Verified 07/23/24 09:16 Antibiotics) fentanyl [FENTANYL] AdvReac Intermediate Hallucinati Verified 07/23/24 09:16 ons tramadol AdvReac Intermediate Hallucinati Verified 07/23/24 09:16 ons Active Medications: Current Medications Albuterol Sulfate (Albuterol Sulfate (0.083%) 2.5 Mg/3 Ml Vial.Neb) 2.5 mg INHALE ONCE PRN PRN Reason: Shortness of Breath/Wheezing Lactated Ringer's (Lr) 500 mls @ 50 mls/hr IV .Q10H LONG Stop: 08/05/24 19:14 Povidone Iodine (Povidone Iodine 5 % Ophth Soln 30 Ml Bottle) 1 appl EYE-RIGHT PREOP PRN PRN Reason: Pre-Op Surgical Implant Prophy Home Medications ?Medication ?Instructions ?Recorded ?Confirmed ?Last Taken ?Type blood pressure monitor #1 ea 10/22/20 08/02/24 11/28/20 History blood pressure test kit-large #1 ea 10/22/20 08/02/24 11/28/20 History docusate sodium 100 mg capsule 100 mg PO BID PRN constipation 09/21/21 08/02/24 2 Days Ago History ~04/27/24 divalproex 500 mg tablet,extended 1,000 mg PO BEDTIME 04/15/24 08/02/24 2 Days Ago History release 24 hr ~04/27/24 metoprolol succinate 50 mg 50 mg PO DAILY 04/15/24 08/02/24 2 Days Ago History tablet,extended release 24 hr ~04/27/24 fluticasone furoate 100 1 ea inhalation DAILY 04/29/24 08/02/24 2 Days Ago History mcg-vilanterol 25 mcg/dose ~04/27/24 inhalation powder (Breo Ellipta) Exam Height,Weight and Vital Signs: Height 5 ft 5 in Weight 84.368 kg Last Vital Signs Temp 97.1 F 08/05/24 09:11 Pulse 72 08/05/24 09:11 Resp 16 08/05/24 09:11 BP 118/68 08/05/24 09:11 Pulse Ox 94 08/05/24 09:11 O2 Del Method Room Air 08/05/24 09:11 Airway Mallampati Class: III TM Dist: >3cm Neck ROM: Full Heart: irreg Lungs: CTA Assessment and Plan Assessment Anesthesia Assessment: Anesthesia Plan Discussed and Chart Reviewed Final Anesthetic Review Family History of Problems with Anesthesia: No History of Problems with Anesthesia: No NPO: Yes Final Preanesthetic Review: Meds/Allgs Chart Reviewed, Consent Obtained/Reviewed and Anes Risks/Benef Reviewed
--- NOTE | 2024-08-05 10:13 | HO.ANESPROP2 ---
[facility] Active Problems Active Problems: All Active Problems Left shoulder pain (Acute) Epigastric abdominal pain (Acute) Pre-op evaluation (Acute) Skin lesions (Acute) UTI (urinary tract infection) (Acute) Low back pain with left-sided sciatica (Acute) Moderate major depression (Acute) Thrombocythemia (Acute) Anemia (Acute) Melena (Acute) Cervicalgia (Acute) Tingling (Acute) Migraine (Acute) Elevated fasting glucose (Acute) Chronic pancreatitis (Acute) Atherosclerotic cardiovascular disease (Acute) Screening for hypothyroidism (Acute) Candidiasis, intertrigo (Acute) Smoker (Acute) GERD (gastroesophageal reflux disease) (Acute) Encounter to establish care (Acute) Iron deficiency anemia (Acute) Tension headache (Acute) Chronic back pain (Acute) Anxiety (Acute) Encounter for medication review (Acute) PAF (paroxysmal atrial fibrillation) (Acute ~2020) Colostomy in place (Acute ~2020) Cancer of lower lobe of left lung (Acute ~2020) Adenocarcinoma of sigmoid colon (Chronic ~2020) CAD (coronary artery disease) (Acute) Congestive heart failure (Acute) Hypoxia (Acute) COPD (chronic obstructive pulmonary disease) (Acute) HTN (hypertension) (Acute) High cholesterol (Acute) IVY (obstructive sleep apnea) (Acute) Peripheral vascular disease (Acute) Personal history of nicotine dependence (Acute) PTSD (post-traumatic stress disorder) (Acute) Renal failure (Acute) Pericardial effusion (Acute) No natural teeth (Acute) Hypernatremia (Acute) GI bleed (Acute) COVID-19 vaccine series completed (Acute) Back pain with history of spinal surgery (Acute) Hematochezia (Acute) Past Medical History Medical History Acute on chronic diastolic CHF (congestive heart failure) CHF exacerbation Respiratory failure with hypoxia and hypercapnia Chronic confusion Depression Smoker Chronic back pain Colostomy in place (~2020) Personal history of nicotine dependence Polysubstance (including opioids) dependence, binge pattern Atrial fibrillation with rapid ventricular response Congestive heart failure Restrictive lung disease COPD (chronic obstructive pulmonary disease) No natural teeth COVID-19 vaccine series completed History of COVID-19 (~04/2020) Oxygen dependent Pericardial effusion Other and unspecified hyperlipidemia Essential hypertension Peripheral vascular disease Preoperative cardiovascular examination Bilateral pneumonia Adenocarcinoma of sigmoid colon (~2020) Hypernatremia GI bleed UTI (urinary tract infection) Pleural effusion, left Colon cancer (~2020) IVY (obstructive sleep apnea) Cancer of lower lobe of left lung (~2020) GERD (gastroesophageal reflux disease) Acute and chronic respiratory failure Lung cancer Obesity Hypoventilation associated with obesity Obesity hypoventilation syndrome Respiratory failure with hypoxia and hypercapnia Rotator cuff strain Hypoxia Pneumonia Restless legs syndrome (RLS) Sleep disorder Bipolar disorder (~2009) Back pain with history of spinal surgery Renal failure Fibromyalgia Depression High cholesterol PTSD (post-traumatic stress disorder) CAD (coronary artery disease) HTN (hypertension) Functional capacity: independent ambulation Patient : No Family History Family History Maternal Aunt Breast cancer Stroke COPD (chronic obstructive pulmonary disease) Maternal Aunt Breast cancer COPD (chronic obstructive pulmonary disease) Mother Uterine cancer COPD (chronic obstructive pulmonary disease) HTN (hypertension) Heart disease Mental health disorder Maternal Uncle Stroke Paternal Grandmother Heart attack Parkinsons disease Sister Diabetes IBS (irritable bowel syndrome) Son HTN (hypertension) Substance use disorder Daughter HTN (hypertension) Father HTN (hypertension) Parkinsons disease Brother Heart disease Family/Other Mental health disorder Family history of problems with anesthesia: No Surgical History Surgical History History of partial colectomy (~12/2020) History of cardiac cath (~2010) History of hysterectomy (~1990) History of cholecystectomy History of appendectomy (~1982) History of colonoscopy (~08/2020) History of lobectomy of lung (~08/2020) History of esophagogastroduodenoscopy (EGD) History of bunionectomy (~1977) History of back surgery History of Problems with Anesthesia: No Social History Social History Household Members: Spouse Housing: Apartment Are you a primary child caregiver private home to a significant other at home: No Do you presently have visiting nurse or other home services: No Alcohol intake: never Comment: sitter at bedside Patient Tobacco Use Status: Former Tobacco user Tobacco use type: Cigarette Cigarettes Per Day: 4 Years Smoked: 40 e-Cigarette/Vaping Use: Former Use Second Hand Smoke Exposure: No Advance Directives: Yes Advance Directives Information Provided: No Advance Directives on File: Yes Advance Directives Date on File: 10/05/22 Patient : No : No service: No Current occupational status: unemployed and disabled Cognitive needs: Yes (walker ) Hearing needs: No Vision needs: No Meds Allergies Allergy/AdvReac Type Severity Reaction Status Date / Time Penicillins Allergy Mild Rash Verified 08/05/24 10:03 venlafaxine [From Effexor] Allergy Mild Rash Verified 08/05/24 10:03 cyclobenzaprine Allergy Unknown Unknown Verified 08/05/24 10:03 [Cyclobenzaprine] topiramate [From Topamax] Allergy Unknown Unknown Verified 08/05/24 10:03 levofloxacin [From Levaquin] AdvReac Severe Diarrhea Verified 08/05/24 10:03 Sulfa (Sulfonamide AdvReac Severe Diarrhea Verified 08/05/24 10:03 Antibiotics) fentanyl [FENTANYL] AdvReac Intermediate Hallucinati Verified 08/05/24 10:03 ons tramadol AdvReac Intermediate Hallucinati Verified 08/05/24 10:03 ons Active Medications: Current Medications Albuterol Sulfate (Albuterol Sulfate (0.083%) 2.5 Mg/3 Ml Vial.Neb) 2.5 mg INHALE ONCE PRN PRN Reason: Shortness of Breath/Wheezing Lactated Ringer's (Lr) 500 mls @ 50 mls/hr IV .Q10H LONG Stop: 08/05/24 19:14 Last Admin: 08/05/24 09:57 Dose: 50 mls/hr Naloxone HCl (Naloxone Hcl 0.4 Mg/Ml Vial) 0.04 mg IVPUSH Q5M PRN PRN Reason: Excessive sedation or RR < 8 Povidone Iodine (Povidone Iodine 5 % Ophth Soln 30 Ml Bottle) 1 appl EYE-RIGHT PREOP PRN PRN Reason: Pre-Op Surgical Implant Prophy Home Medications ?Medication ?Instructions ?Recorded ?Confirmed ?Last Taken ?Type blood pressure monitor #1 ea 10/22/20 08/02/24 11/28/20 History blood pressure test kit-large #1 ea 10/22/20 08/02/24 11/28/20 History docusate sodium 100 mg capsule 100 mg PO BID PRN constipation 09/21/21 08/02/24 2 Days Ago History ~04/27/24 divalproex 500 mg tablet,extended 1,000 mg PO BEDTIME 04/15/24 08/02/24 2 Days Ago History release 24 hr ~04/27/24 metoprolol succinate 50 mg 50 mg PO DAILY 04/15/24 08/02/24 08/05/24 04:00 History tablet,extended release 24 hr fluticasone furoate 100 1 ea inhalation DAILY 04/29/24 08/02/24 2 Days Ago History mcg-vilanterol 25 mcg/dose ~04/27/24 inhalation powder (Breo Ellipta) Exam Height,Weight and Vital Signs: Height 5 ft 5 in Weight 84.368 kg Last Vital Signs Temp 97.1 F 08/05/24 09:11 Pulse 72 08/05/24 09:11 Resp 16 08/05/24 09:11 BP 118/68 08/05/24 09:11 Pulse Ox 94 08/05/24 09:11 O2 Del Method Room Air 08/05/24 09:11 Airway Mallampati Class: III TM Dist: >3cm Neck ROM: Full Denture: Lower Heart: RRR Lungs: CTA Assessment and Plan Assessment Anesthesia Assessment: Anesthesia Plan Discussed and Chart Reviewed Final Anesthetic Review Family History of Problems with Anesthesia: No History of Problems with Anesthesia: No NPO: Yes ASA Class: III Final Preanesthetic Review: Meds/Allgs Chart Reviewed, Consent Obtained/Reviewed and Anes Risks/Benef Reviewed Patient Risk: Intermediate Procedure Risk: Low Anesthetic Plan Anesthetic Plan: MAC: Disposition: Standard PACU
--- NOTE | 2024-08-05 10:25 | MHC.SHP ---
Pre-Procedural Eval Section A - 24 Hr Update-Section A only Date of Service: 08/05/24 The patient is an INPATIENT: No Changes since office visit: No Cold of Flu in the past 2 weeks, No New Medical Problems, No Changes in Medication and No Patient answered all questions The patient has been examined within 24 hours of the surgical procedure. The History & Physical has been completed within 30 days and I have reviewed it.: Yes Section B - Complete if H&P > 30 days Chief Complaint: Age-related nuclear cataract, right eye Allergies: Allergies Allergy/AdvReac Type Severity Reaction Status Date / Time Penicillins Allergy Mild Rash Verified 08/05/24 10:03 venlafaxine [From Effexor] Allergy Mild Rash Verified 08/05/24 10:03 cyclobenzaprine Allergy Unknown Unknown Verified 08/05/24 10:03 [Cyclobenzaprine] topiramate [From Topamax] Allergy Unknown Unknown Verified 08/05/24 10:03 levofloxacin [From Levaquin] AdvReac Severe Diarrhea Verified 08/05/24 10:03 Sulfa (Sulfonamide AdvReac Severe Diarrhea Verified 08/05/24 10:03 Antibiotics) fentanyl [FENTANYL] AdvReac Intermediate Hallucinati Verified 08/05/24 10:03 ons tramadol AdvReac Intermediate Hallucinati Verified 08/05/24 10:03 ons Plan Diagnosis/Plan: Unchanged I have reviewed the history and physical and performed a pertinent physical examination on my patient. No changes have occurred unless specified. Time Spent With Patient Time: Total time managing care of this patient today ____ minutes.
--- NOTE | 2024-08-05 10:26 | HO.PNOPHT ---
Ophthalmology Procedure Procedure Date of Service: 08/05/24 Ophthalmology Viscoelastic: Healon Duet Dual Pack Pro Ophthalmology Lenses: IOL Acrysof MP - [id number] (23.) Procedure Notes: PREOPERATIVE DIAGNOSIS: Decreased visual acuity right eye secondary to cataract POSTOPERATIVE DIAGNOSIS: Same PROCEDURE: Right cataract extraction with intraocular lens insertion SURGEON: Allen Johnson M.D. ANESTHESIA: Topical/MAC ESTIMATED BLOOD LOSS: None COMPLICATIONS: Capsular Rupture After obtaining informed consent, the patient was brought to the operating room suite and placed in the supine position. After adequate sedation per anesthesia, topical drops of Tetracaine were given to the right eye. The eye was then prepped and draped in the usual sterile fashion. The operating room microscope was then positioned over the operative eye and a lid speculum placed. A paracentesis was created. Viscoelastic was then instilled into the anterior chamber. A three plane incision was then created temporally, utilizing a 2.85 mm keratome. Capsulotomy forceps were then utilized to create a circular tear capsulotomy. Hydrodissection and hydrodelineation were carried out until adequate mobilization of the nucleus occurred. Phacoemulsification was then utilized to remove the dense central nucleus followed by removal of the cortical material utilizing the automated aspiration irrigation unit. Viscoelastic was instilled into the posterior capsular bag followed by placement of a posterior chamber intraocular lens,patient head moved and capsular rupture occurred. The PCIOL was placed into the sulcusThe residual Viscoelastic was then removed utilizing the automated IA machine. The wound was checked and found to be watertight. The patient tolerated the procedure well and the lid speculum was removed. Intracameral injection of Vigamox 0.1 mL followed by a subtenon injection of Kenalog-40 0.2 mL were administered. The patient will be seen in the a.m.
[2024-08-05 10:58] VITALS: BP 147/63; PULSE 76; RESP 16; TEMP 36.3; O2SAT 98
--- NOTE | 2024-08-05 10:59 | HO.POSTANES ---
Post Anesthesia Evaluation Post Anesthesia Evaluation Date of Service: 08/05/24 Vital Signs: Vital Signs Temp Pulse Resp BP Pulse Ox O2 Del Method 08/05/24 09:11 97.1 F 72 16 118/68 94 Room Air Anesthesia: Monitored Pain Control: Satisfactory Nausea/Vomiting: None Hydration: Adequate Anesthesia-Related Issues: No Anes. Related Issues
[2024-08-05] MEDS: Acetaminophen 325 MG TABLET 650 MG PO (11:03)
== END 2024-08-05 11:11 | disposition home or self-care (01) ==
PROVIDERS: PCP Internal Medicine; Visit Provider Ophthalmology
PROC: (CPT 66985; principal; 2024-08-05 10:30)
DX: H25.11 Age-related nuclear cataract, right eye (principal); H59.211 Accidental puncture and laceration of right eye and adnexa during an ophthalmic procedure; H52.4 Presbyopia; Z83.511 Family history of glaucoma; I11.0 Hypertensive heart disease with heart failure; I50.9 Heart failure, unspecified; E78.00 Pure hypercholesterolemia, unspecified; J44.9 Chronic obstructive pulmonary disease, unspecified; C18.9 Malignant neoplasm of colon, unspecified; Z93.3 Colostomy status; Z79.01 Long term (current) use of anticoagulants; Z79.51 Long term (current) use of inhaled steroids; Z79.899 Other long term (current) drug therapy; Z88.0 Allergy status to penicillin; Z88.1 Allergy status to other antibiotic agents; Z88.2 Allergy status to sulfonamides; Z88.8 Allergy status to other drugs, medicaments and biological substances; Z87.891 Personal history of nicotine dependence
CPT/HCPCS: 66984; J2250; J3301; V2630

== ENCOUNTER 2024-08-12 15:53 | Outpatient (AMB) | payer MEDICARE, MEDICAID, SELFPAY ==
[2024-08-12 16:00] VITALS: BP 102/70; PULSE 97; O2SAT 96; BMI 32.0
--- NOTE | 2024-08-12 16:00 | A.OFFVIS_ITS ---
Vital Signs 08/12/24 16:00 Height 5 ft 4 in Weight 186 lb 4.65 oz BMI 32.0 BP 102/70 Blood Pressure Location Lt brachial Position Sitting Pulse 97 Pulse Source Pulse Oximeter Pulse Oximetry (%) 96 Oxygen Delivery Method Room Air Intake Visit Reasons: COPD Intake Note: pt is here for follow up and would like a 6 minute walk for POC with beau, she states her breathing is fine Nuclear Medicine Specialist Required: No Allergies Penicillins Allergy (Mild, Verified 08/12/24 16:24) Rash venlafaxine [From Effexor] Allergy (Mild, Verified 08/12/24 16:24) Rash cyclobenzaprine [Cyclobenzaprine] Allergy (Unknown, Verified 08/12/24 16:24) Unknown topiramate [From Topamax] Allergy (Unknown, Verified 08/12/24 16:24) Unknown levofloxacin [From Levaquin] Adverse Reaction (Severe, Verified 08/12/24 16:24) Diarrhea Sulfa (Sulfonamide Antibiotics) Adverse Reaction (Severe, Verified 08/12/24 16:24) Diarrhea fentanyl [FENTANYL] Adverse Reaction (Intermediate, Verified 08/12/24 16:24) Hallucinations tramadol Adverse Reaction (Intermediate, Verified 08/12/24 16:24) Hallucinations Medication List - Last Reconciled 08/12/24 by Eduardo Cowan MD acetaminophen ER (Tylenol Arthritis Pain) 1,300 mg (2 x 650 mg) PO Q12H PRN apixaban (Eliquis) 5 mg PO BID 90 days atorvastatin 80 mg PO BEDTIME blood pressure monitor As directed blood pressure test kit-large As directed clonazepam 1 mg PO BID 30 days cyanocobalamin (vitamin B-12) (Vitamin B-12) 1,000 mcg PO DAILY diltiazem HCl CD 240 mg PO QPM 30 days divalproex ER 1,000 mg PO BEDTIME divalproex ER 500 mg PO DAILY docusate sodium 100 mg PO BID PRN duloxetine 60 mg PO BEDTIME fenofibrate 160 mg PO BEDTIME ferrous sulfate (FeroSul) 325 mg PO BID fluticasone furoate-vilanterol 100-25 mcg/dose (Breo Ellipta) 1 ea inhalation DAILY [heavy duty adjustable hand rail As directed] hydralazine 50 mg PO TID hydrocortisone 1% (Cortisone (hydrocortisone)) 1 appl topical TID PRN 2 weeks loperamide (Imodium A-D) 2 mg PO Q6H PRN lorazepam 0.5 mg PO DAILY PRN 1 day metaxalone 800 mg PO TID PRN metoclopramide HCl 10 mg PO Q6H PRN metoprolol succinate ER 50 mg PO DAILY nystatin 1 appl See Protocol topical BID omeprazole 20 mg PO BID@0630,1630 90 days potassium chloride ER (K-Tab) 20 mEq PO DAILY riboflavin (vitamin B2) 400 mg PO DAILY 30 days [Tub ledge vertical grab bar/ not suction bar. As directed] umeclidinium 62.5 mcg/actuation (Incruse Ellipta) 1 inh inhalation DAILY walker (Ultra-Light Rollator misc) As directed Do you need a note to return to daycare/school/sports/work: No HPI HPI COPD: Details: 59 years old female who is moderately obese, has mild COPD, In May 2024 she was admitted in the hospital with acute COVID infection, she then spent a few weeks in rehab facility. She has stationary O2 concentrator at home which she uses only p.r.n.. She wants to have a portable O2 concentrator, and was told that she has to have 6 minutes walk test for that. Only mild intermittent, cough which is nonproductive No significant shortness of breath at rest but mild shortness of breath when she walks around. She is nonsmoker. She has past history of hypoventilation syndrome, respiratory failure, needing oxygen. But she had stopped using the oxygen on her own. She also has history of obstructive sleep apnea was started on CPAP but she remained noncompliant so. That CPAP was taken away Now she claims that she sleeps OK without any problem [facility] Medical History Acute on chronic diastolic CHF (congestive heart failure) CHF exacerbation Respiratory failure with hypoxia and hypercapnia Chronic confusion Depression Smoker Chronic back pain Colostomy in place (~2020) Personal history of nicotine dependence Polysubstance (including opioids) dependence, binge pattern Atrial fibrillation with rapid ventricular response Congestive heart failure Restrictive lung disease COPD (chronic obstructive pulmonary disease) No natural teeth COVID-19 vaccine series completed History of COVID-19 (~04/2020) Oxygen dependent Pericardial effusion Other and unspecified hyperlipidemia Essential hypertension Peripheral vascular disease Preoperative cardiovascular examination Bilateral pneumonia Adenocarcinoma of sigmoid colon (~2020) Hypernatremia GI bleed UTI (urinary tract infection) Pleural effusion, left Colon cancer (~2020) IVY (obstructive sleep apnea) Cancer of lower lobe of left lung (~2020) GERD (gastroesophageal reflux disease) Acute and chronic respiratory failure Lung cancer Obesity Hypoventilation associated with obesity Obesity hypoventilation syndrome Respiratory failure with hypoxia and hypercapnia Rotator cuff strain Hypoxia Pneumonia Restless legs syndrome (RLS) Sleep disorder Bipolar disorder (~2009) Back pain with history of spinal surgery Renal failure Fibromyalgia Depression High cholesterol PTSD (post-traumatic stress disorder) CAD (coronary artery disease) HTN (hypertension) Surgical History History of partial colectomy (~12/2020) History of cardiac cath (~2010) History of hysterectomy (~1990) History of cholecystectomy History of appendectomy (~1982) History of colonoscopy (~08/2020) History of lobectomy of lung (~08/2020) History of esophagogastroduodenoscopy (EGD) History of bunionectomy (~1977) History of back surgery Family History Maternal Aunt Breast cancer Stroke COPD (chronic obstructive pulmonary disease) Maternal Aunt Breast cancer COPD (chronic obstructive pulmonary disease) Mother Uterine cancer COPD (chronic obstructive pulmonary disease) HTN (hypertension) Heart disease Mental health disorder Maternal Uncle Stroke Paternal Grandmother Heart attack Parkinsons disease Sister Diabetes IBS (irritable bowel syndrome) Son HTN (hypertension) Substance use disorder Daughter HTN (hypertension) Father HTN (hypertension) Parkinsons disease Brother Heart disease Family/Other Mental health disorder Social History Household Members: Spouse Housing: Apartment Are you a primary rn urgent care to a significant other at home: No Do you presently have visiting nurse or other home services: No Alcohol intake: never Comment: sitter at bedside Patient Tobacco Use Status: Former Tobacco user Tobacco use type: Cigarette Cigarettes Per Day: 4 Years Smoked: 40 e-Cigarette/Vaping Use: Former Use Second Hand Smoke Exposure: No Advance Directives Date on File: 10/05/22 service: No Current occupational status: unemployed and disabled Cognitive needs: Yes (walker ) Hearing needs: No Vision needs: No Review of Systems Const All systems reviewed & are unremarkable except as noted in HPI and below ENT Denies nasal congestion and Denies nasal discharge Card Denies chest pain, Denies leg edema and Reports dyspnea on exertion (MODERATE ) Resp Reports cough (MILD , OCCASIONAL ), Denies hemoptysis, Reports dyspnea on exertion (MODERATE ) and Denies wheezing GI Reports no additional complaints Musc Reports abnormal gait (IMPAIRED GAIT , SEC TO MUSCULAR WEAKNESS ) and Reports back pain (MILD ) Neuro Reports abnormal gait (IMPAIRED GAIT , SEC TO MUSCULAR WEAKNESS ) Psych Reports no additional complaints Endo Reports no additional complaints Aller/Immun Denies wheezing Physical Exam Vital Signs: Last Vital Signs Pulse 97 08/12/24 16:00 BP 102/70 08/12/24 16:00 Pulse Ox 96 08/12/24 16:00 Oxygen Delivery Method Room Air 08/12/24 16:00 BMI result Body Mass Index 32.0 Const General: comfortable, no acute distress, alert and awake Orientation/consciousness: patient oriented x3 HEENT Head: Yes normal to inspection General nose exam: No nasal polyps present and No nasal discharge present Face and sinus: Yes sinuses nontender Mouth: oropharynx normal Throat: Yes posterior oropharynx normal Eyes General: appearance normal, both eyes and all related structures Neck Neck: Yes normal visual inspection, Yes no lymphadenopathy, Yes trachea midline and Yes no JVD Thyroid: Thyroid normal Chest Chest palpation & inspection: normal inspection of the chest, normal palpation of entire chest wall and no tenderness Resp Other: PERCUSSION NOTE RESONANT, BREATH SOUNDS ARE SLIGHTLY DISTANT ESPECIALLY OVER THE BASILAR AREAS. NO WHEEZES OR RHONCHI ARE HEARD. Cardio Palpation: normal PMI Rate: regular rate Rhythm: regular rhythm Heart sounds: no gallops and no murmurs GI Palpation (GI): Soft to palpation, nontender, No hepatosplenomegaly present, no masses and Other GI palpation findings present (COLOSTOMY IN THE LEFT UPPER QUADRANT AND ALSO extensive surgical scar) Auscultation: normal bowel sounds Back/Spine/Pelvis Thoracic/Lumbar Spine: thoracic and lumbar spine normal to inspection and thoraco-lumbar ROM limited Skin General skin exam: no rashes or lesions noted Neuro General: patient oriented x3, No gait normal (GAIT IS IMPAIRED AND SHE HAS TO USE WALKER) and no focal motor deficits Cranial nerves: Yes CN's II-XII intact bilaterally Extrem General: Yes normal to inspection, Yes no clubbing, cyanosis or edema and Yes no calf tenderness Psych Appearance: grossly normal and well kempt Speech and movement: Normal speech and movement present Office Procedures 6 Minute Walk Time:: 16:13 SPO2 % at rest: 95 Pulse at rest: 93 SPO2 % during excercise: 92 Pulse during excercise: 115 SPO2 % after excercise: 92 Pulse after excercise: 107 Distance in yards walked: 171 Dimple Score: 6 Performance Observations:: Patient walked on level ground using a walker. Patient was able to complete the entirety of the walk maintaining O2 saturation of 92-93% and pulse of 107-115. Patient tires easily and c/o back pain. No supplemental oxygen was needed. [id number] - 6 Minute Walk Results Reviewed Results Reviewed: Had 6 minutes walk today and the O2 sat remained above 90%. Assessment & Plan Assessment & Plan (1) Cancer of lower lobe of left lung: Onset Date: ~2020 Comment: (Adenocarcinoma, pT1c, pN0, MX - s/p LLL lobectomy 09/01/20) Code(s): C34.32 - Malignant neoplasm of lower lobe, left bronchus or lung Category: Medical Plan: Patient has had chemotherapy of the left lower lobe resection, Currently free of any active lung tino pleasant. (2) COPD (chronic obstructive pulmonary disease): Comment: Patient does have mild chronic obstructive pulmonary disease in addition to restrictive lung disorder. Overall staying very stable. , she walks slow and has mild dyspnea on exertion. Code(s): J44.9 - Chronic obstructive pulmonary disease, unspecified Category: Medical Qualifiers: COPD type: COPD with acute exacerbation Qualified Code(s): J44.1 - Chronic obstructive pulmonary disease with (acute) exacerbation Plan: Breo 100-251 inhalation daily . To continue (3) Personal history of nicotine dependence: Comment: (onset 14, 3/4ppd x 41yrs, 30pyh, quit 2020) Since last year has quit completely . And feels good. Code(s): Z87.891 - Personal history of nicotine dependence Category: Medical Plan: Commended for not going back to smoking. (4) IVY (obstructive sleep apnea): Comment: PATIENT DOES HAVE HISTORY OF OBSTRUCTIVE SLEEP APNEA, SHE WAS NEVER KEEN TO USE THE CPAP/BIPAP AND REMAINED NON COMPLIANT, SO [place] [facility] [place] BECAUSE OF SIGNIFICANT WEIGHT LOSS AFTER COLON RESECTION. CLINICALLY HER IVY APPERARED TO HAVE RESOLVED. Code(s): G47.33 - Obstructive sleep apnea (adult) (pediatric) Category: Medical Plan: ADVISED TO WATCH HER WEIGHT. TRY TO SLEEP IN LATERAL POSITION. (5) Hypoxia: Comment: PATIENT HAS HAD HYPOXEMIA IN THE PAST, SHE HAS A O2 CONCENTRATOR AT HOME AND SUPPOSED TO USE 2 L/MINUTE AT NIGHT AND P.R.N. DURING THE DAYTIME. SHE WAS LOOKING FOR A POC FOR PORTABILITY. Code(s): R09.02 - Hypoxemia Category: Medical Plan: 6 MINUTE WALK TEST DOES NOT SHOW ANY HYPOXEMIA TODAY ON WALKING, SO SHE WOULD NOT QUALIFY FOR POC Orders: Orders AMB 6 minute walk Today J44.1 - Chronic obstructive pulmonary disease with (acute) exacerbation Coding Level of Care Code Est Pt Level 3 (95993) Diagnoses Cancer of lower lobe of left lung C34.32 Chronic obstructive pulmonary disease with acute exacerbation J44.1 COPD type: COPD with acute exacerbation Personal history of nicotine dependence Z87.891 IVY (obstructive sleep apnea) G47.33 Hypoxia R09.02 CPT Codes Coding ([id number])
[2024-08-12 16:36] VITALS: PULSE 93; O2SAT 95
--- OUTSIDE RECORDS SUMMARY | 2024-08-12 17:49 | XMS_ITS ---
Author Organization [facility] Care Team Providers Care Color Depositing Machine Tender Name Role Phone Janna Triana Unavailable Unavailable Ray Lee Unavailable Unavailable Brynn Allen Unavailable Unavailable Joanne Hernandez Unavailable Unavailable Michelle Love Unavailable U Sarina Gastelum Unavailable Unavailable Thalia Adorno Unavailable Unavailable Allergies and adverse reactions Code CodeSystem Substance Reaction Severity StartDate Concern Status 89936 RXNORM Venlafaxine Unknown 04/30/2020 active 77913 RXNORM Topiramate Unknown 04/30/[address] Penicillins Unknown 04/30/2020 activ e 4337 RXNORM Fentanyl Unknown 04/30/2020 active 53470 RXNORM Cyclobenzaprine Unknown 04/30/2020 activ e Care Team Name Role Address Phone Organization Dates Janna Triana Attending Physician [address] [facility] [address], [place], [address], [place] (Office): : [facility] 04/30/2020 - 05/15/2020 Ray Lee Attending Physician [address] [place] [address] [address], [place], [address], [place] (Office): : [facility] 04/30/2020 - 05/15/2020 Brynn Allen Attending Physician [address] [place] [address], [place], [address], [facility] (Office): : [facility] 04/30/2020 - 05/15/2020 Joanne Hernandez Attending Physician [address] [place] [address], [place], [address], [facility] (Office): : [facility] 04/30/2020 - 05/15/2020 Michelle matos Attending Physician [facility] [address] , [place], [address], [place] (Office): : [facility] 04/30/2020 - 05/15/2020 Sarina Ramírez Attending Physician [address] [place] [address], [place], [address], [facility] (Office): : [facility] 04/30/2020 - 05/15/2020 Thalia Adorno Attending Physician [address] [place] [address], [address], [place] (Office): : : [facility] 04/30/2020 - 05/15/2020 Immunizations Immunization Status Vaccine Details Vaccine Code CodeSystem Date Notes Pneumovax Dose 1 completed pneumococcal polysaccharide vaccine, 23 valent 33 CVX created date: 05/07/2020 administer ed date: 04/25/2010 TB 2 Step Mantoux Skin Test completed tuberculin skin test; purified protein derivative solution, intradermal lotNumber: [id number] expiry: 07/27/2021 Mfg: PAR pharmaceutical Given 0.1 ml intradermally Step 1 of Multi-step with next step required 96 CVX created date: 05/01/2020 consent date: 05/01/2020 administer ed date: 05/01/2020 Educated by on 04/30/2020 TDAP(tetanus/di pth/pertuss) completed tetanus toxoid, reduced diphtheria toxoid, and acellular pertussis vaccine, adsorbed 115 CVX created date: 05/07/2020 administer ed date: 08/05/2015 Influenza (high dose) completed Influenza, high-dose, split virus, trivalent, injectable, preservative free 135 CVX created date: 05/07/2020 administer ed date: 03/22/2019 Influenza (standard dose syringe) completed Influenza, Madin [place] Canine Kidney, subunit, quadrivalent, injectable, preservative free lotNumber: [id number] expiry: 11/12/2020 Mfg: seqiirus Given 0.5 ml Left Deltoid intramuscularly 171 CVX created date: 05/10/2020 consent date: 05/10/2020 administer ed date: 05/10/2020 Educated by Дмитрий Alvarez on 05/10/2020 administerr ed in house by Carlos BAUTISTA Mental Status Section Date Assessment Total Score Description 05/15/2020 BIMS 15 cognitively int act CAM 0 No delirium ind icated PHQ-9 00 05/06/2020 BIMS 15 cognitively int act CAM 0 No delirium ind icated PHQ-9 00 Problems Problem # Description Date of onset Resolved Date Code CodeSystem Concern Status 1 COVID-19 05/14/[address] active 2 ACUTE ON CHRONIC DIASTOLIC (CONGESTIVE) HEART FAILURE 04/30/[address] active 3 ACUTE RESPIRATORY FAILURE, UNSPECIFIED WHETHER WITH HYPOXIA OR HYPERCAPNIA 04/30/[address] active 4 BIPOLAR DISORDER, UNSPECIFIED 04/30/[address] active 5 CHRONIC OBSTRUCTIVE PULMONARY DISEASE, UNSPECIFIED 04/30/[address] active 6 ESSENTIAL (PRIMARY) HYPERTENSION 04/30/[address] active 7 GENERALIZED ANXIETY DISORDER 04/30/[address] active 8 OBSTRUCTIVE SLEEP APNEA (ADULT) (PEDIATRIC) 04/30/[address] active 9 RESTLESS LEGS SYNDROME 04/30/[address] active 10 UNSPECIFIED BACTERIAL PNEUMONIA 04/30/[address] active Reason for Referral No Reasons for Referral Entered Social History Social History Observation Description Start Date End Date Code Code System Current Smoking Status Tobacco smoking consumption unknown 003762600 SNOMED CT Sex Assigned At Female 1965 [address]-7 [facility] Vital Signs Code Code System Vitals Name Values and Units Timing Information 8462-4 [facility] Blood Pressure-Diastolic Value=81 Un its=mmHg 05/15/2020 8480-6 [facility] Blood Pressure-Systolic Odtlp=205 Un its=mmHg 05/15/2020 8310-5 [facility] Body Temperature Value=97.7 Units=?? F 05/15/2020 8867-4 [facility] Heart rate Value=89.0 Units=/min 04/2020 92854-1 [facility] O2 % BldC Oximetry Value=94.0 Units= % 05/15/2020 57360-7 [facility] Weight Xojzx=526.8 Units=Lbs 04/2020 88578-0 [facility] Pain Level Value=5.0 05/15/2020 9279-1 [facility] Respiratory Rate Value=18.0 Units=/m in 05/15/2020 8302-2 [facility] Height Value=64.0 Units=Inches 05/13/2020
--- OUTSIDE RECORDS SUMMARY | 2024-08-12 17:49 | XMS_ITS | Clinical Summary ---
Author Organization [address] Address [address] [place] [address] Phone Care Team Providers Care Park Maintainer Name Role Phone Cassandra Oconnor MD Primary Care Provider [phone] [phone] Encounters Date Type Department Care Team Description 08/02/2024 10:39 AM EST - 08/02/2024 11:59 PM EST Hospital Encounter [facility] PET Scan [address] [place] [id number] Malignant neoplasm of sigmoid colon (CMS/HCC) Discharge Disposition: Home or Self Care 05/23/[address] [facility] - Main Lab [address] [place] [phone] Ray Lee MD Other oil heaterman (current) drug therapy 05/16/[address] [facility] - Main Lab [address] [place] [phone] Ray Lee MD Other oil heaterman (current) drug therapy from Last 3 Months Surgical History Surgery Date Site/Laterality Comments OTHER SURGICAL HISTORY PROCEDURE: TX UNLISTED PROCEDURE SPINE; COMMENT: lumbar spine Sx. Metal hardware in place. HYSTERECTOMY PROCEDURE: HISTORICAL HYSTERECTOMY APPENDECTOMY PROCEDURE: HISTORICAL APPENDECTOMY CHOLECYSTECTOMY PROCEDURE: HISTORICAL CHOLECYSTECTOMY BACK SURGERY PROCEDURE: HISTORICAL BACK SURGERY APPENDECTOMY PROCEDURE: TX APPENDECTOMY CHOLECYSTECTOMY PROCEDURE: TX LAPAROSCOPY SURG CHOLECYSTECTOMY Medical History Medical History [...] Care Team (Late st Contact Info) Description 11/06/2024 3:30 PM EDT Appointment [facility] CT Scan [address] [place] [address] Health Maintenance Due Date Last [...] 05/18/2022 Social Influencers of Health Screening 05/18/2022 RSV Immunization Patients 60+ Years Old (1 - Risk 60-74 years 1-dose series) 2023 Influenza Vaccine (#1) 2024 2, 03/09/2021, 05/10/2020, Additional history exists Hypertension/CHF/CAD Annual BMP Blood Test 05/17/2025 05/17/2024, 05/10/2024, 05/07/2024, Additional history exists DTaP,Tdap,and Td Vaccines (2 - Td or Tdap) 08/04/2025 08/05/2015 HIB Vaccines Aged Out No longer eligi [...] Procedure Name Priority Date/Time Associated Diagnosis Comments PET CT SKULL TO MID THIGH SUBSEQUENT Routine 08/02/2024 12:42 PM EST Malignant neoplasm of sigmoid colon (CMS/HCC) BASIC METABOLIC PANEL Routine 05/17/2024 6:14 AM EST Other nursing home (current) drug therapy COMPLETE BLOOD COUNT Routine 05/17/2024 6:14 AM EST Other nursing home (current) drug therapy from Last 3 Months Results * PET CT Skull to Mid Thigh Subsequent (08/02/2024 12:42 PM EST) Anatomical Region Laterality Modality Body Radiographic Shari ging 08/05/2024 9:39 AM EST Impressions 08/05/2024 10:57 AM EST 1. ??Increasing FDG avid soft tissue attenuation along the left pelvis near the bladder/vaginal cuff worrisome for recurrence/metastatic disease 2. ??Nonspecific FDG activity at the level of the anal canal, ostomy and stomach. Please note: The CT was acquired at a low radiation dose settings. ??The images are of nondiagnostic quality and used solely for purposes of attenuation correction and slice localization for the PET scan. ??If a diagnostic CT study is desired it must be ordered separately. -------- FINAL REPORT -------- Dictated By: Mellissa Cuba Dictated Date: 08/05/2024 09:39 ET Assigned Physician: Mellissa Cuba Reviewed and Electronically Signed By: Mellissa Cuba Signed Date: 08/05/2024 10:57 ET Workstation ID: [id number] Transcribed By: Self Edit Transcribed Date: 08/05/2024 09:39 ET Narrative 08/05/2024 10:57 AM EST INDICATION: SIGMOID COLON CANCER. ??History of sigmoid carcinoma status post sigmoid colectomy. ??Restaging. ??History of lung cancer status post left lower lobectomy. TECHNIQUE: FDG PET-CT imaging was performed from the skull bases through the thighs in a single acquisition with data set reconstructed in axial, coronal, and sagittal planes at the computer workstation with fused data from both the PET imaging study and attenuation correction CT. The CT portion of the examination was done strictly for attenuation correction and is not a true diagnostic CT examination. ??Patient declined enteric contrast. DLP: ??1518 mGy-cm Radiopharmaceutical: 12.5 mCi of F-18 FDG IV. Blood glucose: 89 mg/dl. COMPARISON: Prior PET/CT October [address] 11/2023 FINDINGS: HEAD AND NECK: No abnormal FDG activity. THORAX: Nonenlarged axillary and mediastinal lymph nodes without significant FDG activity in comparison to blood pool. ABDOMEN/PELVIS: Postsurgical appearance of the bowel with persistent activity at the level of the ostomy SUV Max 9.1 (previously 6.5). Persistent soft tissue attenuation with associated FDG activity along the left vaginal cuff/bladder SUV Max 19.4 (previously 7.6). Nonspecific FDG activity along the stomach SUV max 4.6 and along the anal canal SUV max 3.8. Status post post cholecystectomy. ??Calcifications along the pancreas likely representing stigmata of prior pancreatitis. ??Nonenlarged retroperitoneal lymph nodes without significant FDG activity. ??Slightly prominent loops of small bowel in keeping with ileus. Nonspecific soft tissue attenuation along the lower abdomen at the level of the sacrum which likely corresponds to loops of small bowel activity rather than lymph nodes as enteric contrast was noted in this region on prior PET/CT. MUSCULOSKELETAL: Focal FDG activity involving the right uncovertebral joint at C3-C4 SUV Max 4.5 (previously 3.0). ??Uncovertebral arthropathy is noted at this level and therefore this is favored to represent degenerative changes. ??Surgical hardware along the lumbar spine. Procedure Note Mellissa Cuba MD - 08/05/2024 INDICATION: SIGMOID COLON CANCER. History of sigmoid carcinoma statuspost sigmoid colectomy. Restaging. History of lung cancer status postleft lower lobectomy. TECHNIQUE: FDG PET-CT imaging was performed from the skull bases throughthe thighs in a single acquisition with data set reconstructed in axial,coronal, and sagittal planes at the computer workstation with fused datafrom both the PET imaging study and attenuation correction CT. The CTportion of the examination was done strictly for attenuation correctionand is not a true diagnostic CT examination. Patient declined entericcontrast. DLP: 1518 mGy-cm Radiopharmaceutical: 12.5 mCi of F-18 FDG IV. Blood glucose: 89 mg/dl. COMPARISON: Prior PET/CT October [address] 11/2023 FINDINGS: HEAD AND NECK: No abnormal FDG activity. THORAX: Nonenlarged axillary and mediastinal lymph nodes withoutsignificant FDG activity in comparison to blood pool. ABDOMEN/PELVIS: Postsurgical appearance of the bowel with persistentactivity at the level of the ostomy SUV Max 9.1 (previously 6.5). Persistent soft tissue attenuation with associated FDG activity along theleft vaginal cuff/bladder SUV Max 19.4 (previously 7.6). Nonspecific FDG activity along the stomach SUV max 4.6 and along the analcanal SUV max 3.8. Status post post cholecystectomy. Calcifications along the pancreaslikely representing stigmata of prior pancreatitis. Nonenlargedretroperitoneal lymph nodes without significant FDG activity. Slightlyprominent loops of small bowel in keeping with ileus. Nonspecific soft tissue attenuation along the lower abdomen at the levelof the sacrum which likely corresponds to loops of small bowel activityrather than lymph nodes as enteric contrast was noted in this region onprior PET/CT. MUSCULOSKELETAL: Focal FDG activity involving the right uncovertebraljoint at C3-C4 SUV Max 4.5 (previously 3.0). Uncovertebral arthropathy isnoted at this level and therefore this is favored to representdegenerative changes. Surgical hardware along the lumbar spine. IMPRESSION: 1. Increasing FDG avid soft tissue attenuation along the left pelvis nearthe bladder/vaginal cuff worrisome for recurrence/metastatic disease 2. Nonspecific FDG activity at the level of the anal canal, ostomy andstomach. Please note: The CT was acquired at a low radiation dose settings. The images are ofnondiagnostic quality and used solely for purposes of attenuationcorrection and slice localization for the PET scan. If a diagnostic CTstudy is desired it must be ordered separately. -------- FINAL REPORT -------- Dictated By: Mellissa Cuba Dictated Date: 08/05/2024 09:39 ET Assigned Physician: Mellissa Cuba Reviewed and Electronically Signed By: Mellissa Cuba Signed Date: 08/05/2024 10:57 ET Workstation ID: [id number] Transcribed By: Self Edit Transcribed Date: 08/05/2024 09:39 ET Aliza Ahumada MD IM NM PROCEDURES Final Result * (ABNORMAL) Complete blood count (05/17/2024 6:14 AM EST) WBC 9.7 4.8 - 10.8 K/mcL LAB HEMETOLOGY METHOD 05/17/2024 10:47 AM [facility] RBC 3.50(L) 3.80 - 4.80 M/mcL LAB HEMETOLOGY METHOD 05/17/2024 10:47 AM [facility] LAB Hemoglobin 11.0(L) 11.5 - 16.0 g/dL LAB HEMETOLOGY METHOD 05/17/2024 10:47 AM [facility] LAB Hematocrit 36.4 35.0 - 47.0 % LAB HEMETOLOGY METHOD 05/17/2024 10:47 AM [facility] LAB MCV 103.7(H) 79.0 - 98.0 FL LAB HEMETOLOGY METHOD 05/17/2024 10:47 AM [facility] LAB MCH 31.3 27.0 - 32.0 pcg LAB HEMETOLOGY METHOD 05/17/2024 10:47 AM [facility] LAB MCHC 30.2(L) 32.0 - 37.0 g/dL LAB HEMETOLOGY METHOD 05/17/2024 10:47 AM [facility] LAB RDW 17.7(H) 11.0 - 15.0 % LAB HEMETOLOGY METHOD 05/17/2024 10:47 AM [facility] LAB Platelets 303 130 - 400 K/mcL LAB HEMETOLOGY METHOD 05/17/2024 10:47 AM [facility] LAB MPV 11.1(H) 7.0 - 11.0 FL LAB HEMETOLOGY METHOD 05/17/2024 10:47 AM [facility] LAB NRBC 0.0 <1.0 % LAB HEMETOLOGY METHOD 05/17/2024 10:47 AM [facility] LAB NRBC Absolute 0.00 <0.10 K/mcL LAB HEMETOLOGY METHOD 05/17/2024 10:47 AM [facility] LAB Blood Venous blood specimen / Unknown Venipuncture / Unknown 05/17/2024 6:14 AM EST 05/17/2024 10:14 AM EST us Ray Lee MD LAB BLOOD ORDERABLES Final Resul t [facility] [address] [place] [address], * (ABNORMAL) Basic metabolic panel (05/17/2024 6:14 AM EST) Sodium 142 133 - 145 mmol/L LAB CHEMISTRY METHOD 05/17/2024 11:20 AM [facility] Potassium 4.6 3.5 - 5.5 mmol/L LAB CHEMISTRY METHOD 05/17/2024 11:20 AM [facility] Chloride 104 96 - 110 mmol/L LAB CHEMISTRY METHOD 05/17/2024 11:20 AM [facility] CO2 26 21 - 32 mmol/L LAB CHEMISTRY METHOD 05/17/2024 11:20 AM [facility] Anion Gap 12(H) 3 - 11 LAB CHEMISTRY METHOD 05/17/2024 11:20 AM [facility] Glucose 102(H) 70 - 100 mg/dL LAB CHEMISTRY METHOD 05/17/2024 11:20 AM [facility] BUN 17 5 - 25 mg/dL LAB CHEMISTRY METHOD 05/17/2024 11:20 AM [facility] Creatinine 0.87 0.50 - 1.10 mg/dL LAB CHEMISTRY METHOD 05/17/2024 11:20 AM [facility] eGFR 76 >=60 mL/min/1. 73m2 LAB CHEMISTRY METHOD 05/17/2024 11:20 AM [facility] Comment:Calculation based on the??Chronic Kidney Disease Epidemiology Collaboration (CKD-EPI) equation refit??without adjustment for race. BUN/Creatinine Ratio 19.5 LAB CHEMISTRY METHOD 05/17/2024 11:20 AM EST [facility] Calcium 9.1 8.5 - 10.5 mg/dL LAB CHEMISTRY METHOD 05/17/2024 11:20 AM EST [facility] Blood Venous blood specimen / Unknown Venipuncture / Unknown 05/17/2024 6:14 AM EST 05/17/2024 10:16 AM EST us Ray Lee MD LAB BLOOD ORDERABLES Final Resul t [facility] [address] [place] [address], from Last 3 Months Insurance MEDICARE MEDICAID - [place] Advance Directives Documents on File Type Date Recorded Patient Manager Pe Expl anation Health Care Decision (hx) 09/07/2020 AD WHITLEY DIRECTIVE Health Care Decision (hx) 09/07/2020 AD WHITLEY DIRECTIVE Health Care Decision (hx) 09/07/2020 AD WHITLEY DIRECTIVE Health Care Decision (hx) 09/07/2020 AD WHITLEY DIRECTIVE Care Teams Park Maintainer Relationship Specialty Start Date End Date Cassandra Oconnor MD [address] [place] [address] PCP - General 10/26/10
--- OUTSIDE RECORDS SUMMARY | 2024-08-12 17:49 | XMS_ITS | Encounter Summary ---
Author Organization 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
--- OUTSIDE RECORDS SUMMARY | 2024-08-12 17:49 | XMS_ITS | Encounter Summary ---
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 CT Scan [address] [place] [address] documented as of this encounter Procedures Procedure Name Priority Date/Time Associated Diagnosis Comments COMPLETE BLOOD COUNT Routine 05/17/2024 6:14 AM EST Other shelter (current) drug therapy BASIC METABOLIC PANEL Routine 05/17/2024 6:14 AM EST Other watermaster (current) drug therapy documented in this encounter Results * (ABNORMAL) Basic metabolic panel (05/17/2024 6:14 AM EST) Sodium 142 133 - 145 mmol/L LAB CHEMISTRY METHOD 05/17/2024 11:20 AM [facility] Potassium 4.6 3.5 - 5.5 mmol/L LAB CHEMISTRY METHOD 05/17/2024 11:20 AM [facility] Chloride 104 96 - 110 mmol/L LAB CHEMISTRY METHOD 05/17/2024 11:20 AM [facility] CO2 26 21 - 32 mmol/L LAB CHEMISTRY METHOD 05/17/2024 11:20 AM [facility] Anion Gap 12(H) 3 - 11 LAB CHEMISTRY METHOD 05/17/2024 11:20 AM [facility] Glucose 102(H) 70 - 100 mg/dL LAB CHEMISTRY METHOD 05/17/2024 11:20 AM [facility] BUN 17 5 - 25 mg/dL LAB CHEMISTRY METHOD 05/17/2024 11:20 AM [facility] Creatinine 0.87 0.50 - 1.10 mg/dL LAB CHEMISTRY METHOD 05/17/2024 11:20 AM [facility] eGFR 76 >=60 mL/min/1. 73m2 LAB CHEMISTRY METHOD 05/17/2024 11:20 AM [facility] Comment:Calculation based on the??Chronic Kidney Disease Epidemiology Collaboration (CKD-EPI) equation refit??without adjustment for race. BUN/Creatinine Ratio 19.5 LAB CHEMISTRY METHOD 05/17/2024 11:20 AM [facility] Calcium 9.1 8.5 - 10.5 mg/dL LAB CHEMISTRY METHOD 05/17/2024 11:20 AM [facility] Blood Venous blood specimen / Unknown Venipuncture / Unknown 05/17/2024 6:14 AM EST 05/17/2024 10:16 AM EST Ray Lee MD LAB BLOOD ORDERABLES Final Resul t [facility] [address] [place] [address], * (ABNORMAL) Complete blood count (05/17/2024 6:14 AM EST) WBC 9.7 4.8 - 10.8 K/mcL LAB HEMETOLOGY METHOD 05/17/2024 10:47 AM EST [facility] RBC 3.50(L) 3.80 - 4.80 M/mcL LAB HEMETOLOGY METHOD 05/17/2024 10:47 AM [facility] Hemoglobin 11.0(L) 11.5 - 16.0 g/dL LAB HEMETOLOGY METHOD 05/17/2024 10:47 AM [facility] Hematocrit 36.4 35.0 - 47.0 % LAB HEMETOLOGY METHOD 05/17/2024 10:47 AM [facility] MCV 103.7(H) 79.0 - 98.0 FL LAB HEMETOLOGY METHOD 05/17/2024 10:47 AM [facility] MCH 31.3 27.0 - 32.0 pcg LAB HEMETOLOGY METHOD 05/17/2024 10:47 AM [facility] MCHC 30.2(L) 32.0 - 37.0 g/dL LAB HEMETOLOGY METHOD 05/17/2024 10:47 AM [facility] RDW 17.7(H) 11.0 - 15.0 % LAB HEMETOLOGY METHOD 05/17/2024 10:47 AM [facility] Platelets 303 130 - 400 K/mcL LAB HEMETOLOGY METHOD 05/17/2024 10:47 AM [facility] MPV 11.1(H) 7.0 - 11.0 FL LAB HEMETOLOGY METHOD 05/17/2024 10:47 AM EST [facility] NRBC 0.0 <1.0 % LAB HEMETOLOGY METHOD 05/17/2024 10:47 AM EST [facility] NRBC Absolute 0.00 <0.10 K/mcL LAB HEMETOLOGY METHOD 05/17/2024 10:47 AM EST [facility] Blood Venous blood specimen / Unknown Venipuncture / Unknown 05/17/2024 6:14 AM EST 05/17/2024 10:14 AM EST us Ray Lee MD LAB BLOOD ORDERABLES Final Resul t [facility] [address] [place] [address], [place] [phone] documented in this encounter Visit Diagnoses Diagnosis Other shelter (current) drug therapy documented in this encounter Care Teams Sales Support Advisor Relationship Specialty Start Date End Date Cassandra Oconnor MD [address] [place] [address] PCP - General 10/26/10 documented as of this encounter
--- OUTSIDE RECORDS SUMMARY | 2024-08-12 17:49 | XMS_ITS | Encounter Summary ---
Author Organization [facility] Address [id number] [place] [id number] Care Team Providers Care Inclusion Teacher Name Role Phone Cassandra Oconnor MD Primary Care Provider [phone] Reason for Referral * Imaging (Routine) - Closed Specialty Diagnoses / Procedures Referred By Kerri alaniz Referred To Contact Radiology Diagnoses Malignant neoplasm of sigmoid colon (CMS/HCC) Procedures PET CT Skull to Mid Thigh Subsequent Aliza Ahumada MD [address] [place] [address] HEMATOLOGY / [place] [address] Phone: tel: fax: [facility] Referral ID Status Reason Start Date Expiration Date Visits Re quested Visits Authorized [id number] Closed 08/01/2024 08/01/2025 1 1 Reason for Visit * Imaging (Routine) - Closed Specialty Diagnoses / Procedures Referred By Kerri alaniz Referred To Contact Radiology Diagnoses Malignant neoplasm of sigmoid colon (CMS/HCC) Procedures PET CT Skull to Mid Thigh Subsequent Aliza Ahumada MD [address] [place] [address] HEMATOLOGY / [place] [address] Phone: tel: fax: [facility] Referral ID Status Reason Start Date Expiration Date Visits Re quested Visits Authorized [id number] Closed 08/01/2024 08/01/2025 1 1 Encounter Details Date Type Department Care Team (Latest Contact Info) Description 08/02/2024 10:39 AM EST - 08/02/2024 11:59 PM EST Hospital Encounter [facility] PET Scan [address] [place] [address] Malignant neoplasm of sigmoid colon (CMS/HCC) Discharge Disposition: Home or Self Care Social History Tobacco Use Types Packs/Day Years [...] on file documented as of this encounter Discharge Disposition Disposition Code Departure Means Destination Home or Self Care documented in this encounter Plan of Treatment Upcoming Encounters Date Type Department Care Team (Late st Contact Info) Description 11/06/2024 3:[address] [facility] CT Scan [address] [place] [address] documented as of this encounter Procedures Procedure Name Priority Date/Time Associated Diagnosis Comments PET CT SKULL TO MID THIGH SUBSEQUENT Routine 08/02/2024 12:42 PM EST Malignant neoplasm of sigmoid colon (CMS/HCC) documented in this encounter Results * PET CT Skull to Mid [...] Signed Date: 08/05/2024 10:57 ET Workstation ID: [id number] Transcribed By: Self Edit Transcribed Date: 08/05/2024 [...] Signed Date: 08/05/2024 10:57 ET Workstation ID: [id number] Transcribed By: Self Edit Transcribed Date: 08/05/2024 09:39 ET Aliza Ahumada MD IMG DE PROCEDURES Final Result documented in this encounter Visit Diagnoses Diagnosis Malignant neoplasm of sigmoid colon (CMS/HCC) Malignant neoplasm of sigmoid colon documented in this encounter Administered Medications Inactive Administered Medications - up to 3 most recent administrations Medication Order MAR Action Action Date Dose Rate Site F-18 FDG pet diag radio-isotope injection 12.5 millicurie 12.5 millicurie, intravenous, Once in imaging, Starting on Mon08/02/24 at 1115, For 1 dose Given 08/02/2024 11:05 AM EST 12.5 millicuries Left Chest documented in this encounter Orders Medications Ordered That Mati ht Not Have Been Administered Count Last Ordered Date First Ordered Date F-18 FDG pet diag radio-isot ope injection 12.5 millicurie 1 08/02/2024 documented in this encounter Care Teams Inclusion Teacher Relationship Specialty Start Date End Date Cassandra Oconnor MD [address] [place] [address] PCP - General 10/26/10 documented as of this encounter
--- OUTSIDE RECORDS SUMMARY | 2024-08-12 17:50 | XMS_ITS | Encounter Summary ---
Author Organization [facility] Address [address] [place] [phone] Care Team Providers Care Engineering Research Manager Name Role Phone Cassandra Oconnor MD Primary Care Provider [phone] Encounter Details Date Type Department Care Team (Late Contact Info) Description 05/03/[address] 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 Social History Tobacco Use [...] Info) Description 11/06/2024 3:30 PM EDT Appointment [facility] CT Scan [address] [place] [address] documented as of this encounter Procedures Procedure Name Priority Date/Time Associated Diagnosis Comments COMPLETE BLOOD COUNT Routine 05/03/2024 5:52 AM EST Other correction (current) drug therapy VALPROIC ACID LEVEL, TOTAL Routine 05/03/2024 5:52 AM EST 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 COMPREHENSIVE METABOLIC PANEL Routine 05/03/2024 5:52 AM EST Other correction (current) drug therapy documented in this encounter Results * Valproic acid level, total (05/03/2024 5:52 AM EST) Pathologist [facility] Valproic Acid, Total 77 50 - 100 mcg/mL LAB CHEMISTRY METHOD 05/03/2024 8:18 AM EST [facility] Blood Venous blood specimen / Unknown Venipuncture / Unknown 05/03/2024 5:52 AM EST 05/03/2024 7:30 AM EST us Ray Lee MD LAB BLOOD ORDERABLES Final Resul t [facility] [address] [place] [address], [place] [phone] * (ABNORMAL) Comprehensive metabolic panel (05/03/2024 5:52 AM EST) [facility] Sodium 135 133 - 145 mmol/L LAB CHEMISTRY METHOD 05/03/2024 8:18 AM EST [facility] Potassium 4.5 3.5 - 5.5 mmol/L LAB CHEMISTRY METHOD 05/03/2024 8:18 AM [facility] Chloride 101 96 - 110 mmol/L LAB CHEMISTRY METHOD 05/03/2024 8:18 AM [facility] CO2 27 21 - 32 mmol/L LAB CHEMISTRY METHOD 05/03/2024 8:18 AM [facility] Anion Gap 7 3 - 11 LAB CHEMISTRY METHOD 05/03/2024 8:18 AM [facility] Glucose 97 70 - 100 mg/dL LAB CHEMISTRY METHOD 05/03/2024 8:18 AM [facility] BUN 19 5 - 25 mg/dL LAB CHEMISTRY METHOD 05/03/2024 8:18 AM [facility] Creatinine 0.90 0.50 - 1.10 mg/dL LAB CHEMISTRY METHOD 05/03/2024 8:18 AM [facility] eGFR 73 >=60 mL/min/1. 73m2 LAB CHEMISTRY METHOD 05/03/2024 8:18 AM [facility] Comment:Calculation based on the??Chronic Kidney Disease Epidemiology Collaboration (CKD-EPI) equation refit??without adjustment for race. BUN/Creatinine Ratio 21.1 LAB CHEMISTRY METHOD 05/03/2024 8:18 AM [facility] Calcium 9.0 8.5 - 10.5 mg/dL LAB CHEMISTRY METHOD 05/03/2024 8:18 AM [facility] AST (SGOT) 34 10 - 42 unit/L LAB CHEMISTRY METHOD 05/03/2024 8:18 AM [facility] ALT (SGPT) 13 10 - 60 unit/L LAB CHEMISTRY METHOD 05/03/2024 8:18 AM [facility] Alkaline Phosphatase 81 42 - 121 unit/L LAB CHEMISTRY METHOD 05/03/2024 8:18 AM [facility] Total Protein 6.1 6.0 - 8.0 g/dL LAB CHEMISTRY METHOD 05/03/2024 8:18 AM [facility] Albumin 3.1(L) 3.2 - 5.0 g/dL LAB CHEMISTRY METHOD 05/03/2024 8:18 AM [facility] Total Bilirubin 0.2 0.0 - 1.4 mg/dL LAB CHEMISTRY METHOD 05/03/2024 8:18 AM [facility] Blood Venous blood specimen / Unknown Venipuncture / Unknown 05/03/2024 5:52 AM EST 05/03/2024 7:30 AM EST us Ray Lee MD LAB BLOOD ORDERABLES Final Resul t [facility] [address] [place] [address], [place] [phone] * (ABNORMAL) Complete blood count (05/03/2024 5:52 AM EST) [facility] WBC 10.2 4.8 - 10.8 K/mcL LAB HEMETOLOGY METHOD 05/03/2024 7:53 AM [facility] RBC 3.60(L) 3.80 - 4.80 M/mcL LAB HEMETOLOGY METHOD 05/03/2024 7:53 AM [facility] Hemoglobin 11.7 11.5 - 16.0 g/dL LAB HEMETOLOGY METHOD 05/03/2024 7:53 AM [facility] Hematocrit 38.3 35.0 - 47.0 % LAB HEMETOLOGY METHOD 05/03/2024 7:53 AM [facility] MCV 106.1(H) 79.0 - 98.0 FL LAB HEMETOLOGY METHOD 05/03/2024 7:53 AM [facility] MCH 32.4(H) 27.0 - 32.0 pcg LAB HEMETOLOGY METHOD 05/03/2024 7:53 AM [facility] MCHC 30.5(L) 32.0 - 37.0 g/dL LAB HEMETOLOGY METHOD 05/03/2024 7:53 AM [facility] RDW 17.5(H) 11.0 - 15.0 % LAB HEMETOLOGY METHOD 05/03/2024 7:53 AM [facility] Platelets 275 130 - 400 K/mcL LAB HEMETOLOGY METHOD 05/03/2024 7:53 AM [facility] MPV 10.6 7.0 - 11.0 FL LAB HEMETOLOGY METHOD 05/03/2024 7:53 AM [facility] NRBC 0.0 <1.0 % LAB HEMETOLOGY METHOD 05/03/2024 7:53 AM [facility] NRBC Absolute 0.00 <0.10 K/[facility] LAB HEMETOLOGY METHOD 05/03/2024 7:53 AM EST [facility] Blood Venous blood specimen / Unknown Venipuncture / Unknown 05/03/2024 5:52 AM EST 05/03/2024 7:30 AM EST us Ray Lee MD LAB BLOOD ORDERABLES Final Resul t [facility] [address] [place] [address], documented in this encounter Visit Diagnoses Diagnosis 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
--- OUTSIDE RECORDS SUMMARY | 2024-08-12 17:50 | XMS_ITS | Data Portability ---
Author Organization [facility], Main Office Address [address] [facility], [address] [place] [address] Care Team Providers Care Crm Coordinator Name Role Phone SUPRIYA GARCIA - 2ND FLOOR OTHER MICHELLE CASTANON Primary Care Provider Assessment Encounter Date Assessment Date Assessment LastModified by Organization Details LastModified Time 05/16/2024 05/16/2024 45 mins. spent on coordination of discharge [email or web address] Not available 05/16/2024 13:15:07 Plan of Treatment [...] Time Acute hypercapn ic respirato ry failure 056809169 Active [address] [facility], [address], [place], [address], [facility] 0 13:33:36 Bipolar disorder 77762168 Active 2019 and PTSD DAVID GARRIDO NP [address] [facility], [address], [place], [address], [facility] 4 11:40:12 Essential hypertens ion 10174406 Active [address] [facility], [address], [place], [address], [facility] 0 13:36:22 Gastroeso phageal reflux disease without esophagit is 309693747 Active 2019 [facility] [place] [address] [place] [address], [address], [place], [address], [facility] 0 13:37:17 Coronary arteriosc lerosis 52139915 Active [address] [facility], [address], [place], [address], [facility] 0 13:41:31 Chronic obstructi ve pulmonary disease 94115407 Active 2019 [address] [facility], [address], [place], [address], [facility] 0 13:43:44 Obstructi ve sleep apnea syndrome 29876919 Active 2019 Janna Kamilah [address] [place] [address], [address], [place], [address], [facility] 0 13:45:06 Chronic pain 17747108 Active 2019 back DAVID GARRIDO NP [address] [facility], [address], [place], [address], [facility] 4 11:40:25 Restless legs 14919207 Active 2019 Ray Lee MD [address] [facility], [address], [place], [address], [facility] 0 12:39:59 Malignant tumor of colon 771800347 Active 2023 s/p partial colectomy 2020 with ostomy DAVID GARRIDO NP [address] [facility], [address], [place], [address], [facility] 4 11:41:17 Atrial fibrillat ion 88980532 Active 2023 with RVR DAVID GARRIDO NP [address] [facility], [address], [place], [address], [facility] 4 11:41:27 Congestiv e heart failure 34857478 Active 2023 DAVID GARRIDO NP [address] [facility], [address], [place], [address], [facility] 4 11:41:33 Restricti ve lung disease 79920091 Active 2023 DAVID GARRIDO NP [address], [address], [place], [address], [facility] 4 11:41:42 Acute-on- chronic respirato ry failure 79044703 Active 2023 DAVID GARRIDO NP [address], [address], [place], [address], [facility] 4 11:41:59 SARS-CoV- 2 Active 2023 DAVID GARRIDO NP [address], [address], [place], [address], [facility] 4 11:42:21 Pericardi al effusion 075243789 Active 2023 DAVID GARRIDO NP [address], [address], [place], [address], [facility] 4 11:42:33 Hyperlipi demia 08574763 Active 2023 DAVID GARRIDO NP [address], [address], [place], [address], [facility] 4 11:42:47 Periphera l vascular disease 328750064 Active 2023 DAVID GARRIDO NP [address] [facility], [address], [place], [address], [facility] 4 11:42:59 Gastroint estinal hemorrhag e 29431227 Active 2023 DAVID GARRIDO NP [address] [facility], [address], [place], [address], [facility] 4 11:43:11 Malignant tumor of lung 005589168 Active 2023 s/p LLLobectom y 2020 DAVID GARRIDO NP [address], [address], [place], [address], [facility] 4 11:43:41 Obesity 613462604 Active 2023 DAVID GARRIDO NP [address], [address], [place], [address], [place] [facility] 4 11:44:00 Fibromyal yolis 606026409 Active 2023 DAVID GARRIDO NP [address], [address], [place], [address], [facility] 4 11:44:15 Asthenia 76093600 Active 2023 DAVID GARRIDO NP [address], [address], [place], [address], [facility] 4 11:44:32 Anemia 627213612 Active 2023 DAVID GARRIDO NP [address], [address], [place], [address], [facility] 4 11:46:22 Overactiv e urinary bladder 156778125 Active 2023 DAVID GARRIDO NP [address], [address], [place], [address], [facility] 4 11:47:19 Urinary tract infectiou s disease 29217346 Active 2023 DAVID GARRIDO NP [address], [address], [place], [address], [facility] 4 11:47:55 Acute COVID-19 2779155574 Active 2023 Brynn Allen MD [address], [address], [place], [address], [facility] 4 18:03:34 Problem Notes None recorded. Medical Equipment None Reported. Allergies Allergen ID Allergen Name Allergen Category Reaction Reaction Severity Criticality Documentation Date Start Date Code Code System Note Provider Name and Address Organization Details Recorded Time cyclobenz aprine medicatio n Not available Not available Not available 05/01/2020 40290 RxNorm Not Available Not Available Not Available fentanyl medicatio n Not available Not available Not available 05/01/2020 4337 RxNorm hallu cinat ions Not Available Not Available Not Available topiramat e medicatio n Not available Not available Not available 05/01/2020 75444 RxNorm Not Available Not Available Not Available venlafaxi ne medicatio n Not available Not available Not available 05/01/2020 71097 RxNorm rash Not Available Not Available Not Available 57743 Product containin g penicilli n (product) medicatio n Not available Not available Not available 05/01/2020 90464 8001 SNOMED rash Not Available Not Available Not Available 52166 Levaquin medicatio n Not available Not available Not available 04/30/2024 57177 2 RxNorm diarr hea Not Available Not Available Not Available 89948 Substance with sulfonami de structure and antibacte rial mechanism of action (substanc e) medicatio n Not available Not available Not available 04/30/2024 17591 8003 SNOMED diarr hea Not Available Not Available Not Available Vitals Date Recorded Heart rate Respiratory rate Body temperature Oxygen saturation Oxygen saturation in Arterial blood by Pulse oximetry Systolic blood pressure Diastolic blood pressure Provider Name and Address Organization Details Last Updated DateTime 4 87 /min 18 /min 97.8 [degF] 94 % 94 % 119 mm[Hg] 62 mm[Hg] DAVID GARRIDO NP [address] [facility] [address], [place], [address], [facility] 4 11:25:49 Date Recorded Body weight Heart rate Respiratory rate Body temperature Oxygen saturation Oxygen saturation in Arterial blood by Pulse oximetry Systolic blood pressure Diastolic blood pressure Provider Name and Address Organization Details Last Updated DateTime 4 81960.3 7 g 82 /min 18 /min 99 [degF] 96 % 96 % 134 mm[Hg] 72 mm[Hg] Nadiya Jorgensen NP [address], [place], [address], [facility] 4 10:49:28 Date Recorded Body height Body mass index (BMI) Body weight Heart rate Respiratory rate Body temperature Oxygen saturation Oxygen saturation in Arterial blood by Pulse oximetry Systolic blood pressure Diastolic blood pressure Provider Name and Address Organization Details Last Updated DateTime 4 165.1 cm 31.3 kg/m2 60559.3 7 g 80 /min 18 /min 97.6 [degF] 95 % 95 % 134 mm[Hg] 72 mm[Hg] Brynn Allen MD [address], [address], [place], [address], [facility] 4 16:16:16 Date Recorded Body height Heart rate Respiratory rate Body temperature Oxygen saturation Oxygen saturation in Arterial blood by Pulse oximetry Systolic blood pressure Diastolic blood pressure Provider Name and Address Organization Details Last Updated DateTime 4 165.1 cm 94 /min 17 /min 97.3 [degF] 95 % 95 % 122 mm[Hg] 72 mm[Hg] Nadiya Jorgensen NP [address] [facility], [address], [place], [address], [facility] 4 08:54:32 Date Recorded Body height Heart rate Respiratory rate Body temperature Oxygen saturation Oxygen saturation in Arterial blood by Pulse oximetry Systolic blood pressure Diastolic blood pressure Provider Name and Address Organization Details Last Updated DateTime 4 165.1 cm 80 /min 18 /min 98 [degF] 98 % 98 % 122 mm[Hg] 72 mm[Hg] DAVID GARRIDO NP [address] , [address], [place], [address], [facility] 4 12:45:16 Social History Question Answer Notes LastModified by Organizat ion Details LastModified Time Tobacco Smoking Status Former Smoker Janna Triana [address] [facility], [address], [place], [address], [facility] 05/01/2020 14:31:11 Do You Have An Advance Directive? Yes Information not available 05/07/2024 What Is Your Level Of Alcohol Consumption? None [email or web address] Information not available 04/30/2024 What Is Your Code Status? Full Code Information not available 04/30/2024 Do You Or Have You Ever Used E-cigarettes Or Vape? Former User Of Electronic Cigarettes [email or web address] Information not available 04/30/2024 Where Do You Live? Apartment Lives With , Supportive [email or web address] Information not available 04/30/2024 Do You Have A Medical Power Of Interventional Physician? Yes Has HCP [email or web address] Information not available 04/30/2024 What Was The [...] How Much Tobacco Do You Smoke? No [email or web address] Information not available 04/30/2024 Do You Use Any Illicit Or Recreational Drugs? No [email or web address] Information not available 04/30/2024 Has Tobacco Cessation Counseling Been Provided? No [email or web address] Information not available 04/30/2024 How Many Years Have You Smoked Tobacco? 40 [email or web address] Information not available 04/30/2024 Do You Or Have You Ever Used Any Other Forms Of Tobacco Or Nicotine? Yes [email or web address] Information not available 04/30/2024 Sex: Unknown Functional Status None recorded. Mental Status None recorded. Family History Relationship Description Onset Age of this Age Resolved Age Notes LastModified by Organization Details LastModified Time Father Hypertensive disorder [email or web address] Not available 2023 11:28:51 Mother Hypertensive disorder Not available 2023 11:28:51 Mother Malignant neoplasm of uterus [email or web address] Not available 2023 11:29:10 Mother Chronic obstructive pulmonary disease [email or web address] Not available 2023 11:29:26 Mother Heart disease Not available 2023 11:29:51 Mother Mental disorder [email or web address] Not available 2023 11:30:10 Notes:mother by suicide Medical History No medical history recorded. Gynecological HistoryNo gynecological history recorded. Obstetrics History GPAL:G 0 P 0 0 0 0 Immunizations Vaccine Type Date Status Note Provider Nam e and Address Organization Details Recorded Time Tdap 6 completed Tatyana Alaniz [facility] 05/01/2024 14:41:19 pneumococcal polysaccharide PPV23 0 completed Tatyana Alaniz [facility] 05/01/2024 14:41:33 influenza, unspecified formulation 2 completed Tatyana Alaniz [facility] 05/01/2024 14:41:49 SARS-COV-2 (COVID-19) vaccine, UNSPECIFIED 1 completed Tatyana Corbin [facility] 05/01/2024 14:42:06 SARS-COV-2 (COVID-19) vaccine, UNSPECIFIED 1 completed Tatyana roach [facility] 05/01/2024 14:42:13 Past Encounters Encounter ID Performer Location Encounter Start Date Encounter Closed Date Diagnosis/Indication Diagnosis SNOMED-CT Code Diagnosis ICD10 Code Diagnosis Note [id number] Janna Triana JAYSHREE AT [address] [address] 05/01/2020 13:20:20 05/12/2020 13:44:52 Acute hypercapnic respiratory failure 971485379 J96.02 see HPItreated with steroids, BiPAP and bronchodil ators in acute carefinish steroids heremed regimen modified.P t OT to eval and treat.vladislav candis Bipolar disorder 1892254 4 F31.9 see HPI? med regimen contributi ng to resp failuredep akote, clonazapam , and amitriptyl ine reduced in acute caremonito r sxHDBH prn Essential hypertension 44079107 I10 norvasc 10 mg qdmetoprol ol changed to carvedilol in acute care ASA 82 mg qdmonitor BPs Gastroesop hageal reflux disease without esophagitis 002253988 K21.9 on PPI. monitor for sx. Coronary arteriosclerosis 38296510 I25.10 on ASA. monitor Chronic ob structive pulmonary disease 64183450 J44.9 BREO qdpredniso ne tapersuppl emental [id number]. Obstructiv e sleep apnea syndrome 58084519 G47.33 see HPI? contributi ng to resp [email or web address]/ 7 BIPAP in acute care tapered to nocturnal BiPAPconti nue CPAP at nighttime. modafinil started in acute caref/u pulmonolog y outpatient Dr Kaba Chronic pain 74819220 G8 9.29 percocet prn. monitor [id number] MD JAYSHREE Mahoney AT [address] [address] 05/06/2020 12:33:46 05/12/2020 13:42:27 Chronic obstructive pulmonary disease 59410279 J44.1 see abovetx with prednisone Obstructiv e sleep apnea syndrome 17514005 G47.33 new dxsee aboveconti nue positive airway pressureco ntinue support caref/u with pulmonary Acute hype rcapnic respiratory failure 658070046 J96.02 see HPIfelt that medication s and IVY were contributi ng factorsimp roved with BiPAP and O2wean as toleratedf /u with pulmonary in placemonit or respirator y status Bipolar disorder 9489840 4 F31.89 medication s adjusted in hospitalno w ondepakote 500 mg qdmonitor for sx controlpsy ch eval prn Essential hypertension 86654964 I10 now onnorvasc 10 mg qdcoreg 12.5 mg bidmonitor bptitrate prn Gastroesop hageal reflux disease without esophagitis 350051840 K21.9 omeprazole 20 mg qdmonitor for sx control Coronary arteriosclerosis 87131232 I25.10 on ASA. monitor Chronic pain 32647943 G8 9.29 question if oxycodone was contributi ng factor to respirator y failuremon itor on percocet Asthenia 86149965 R53.1 PT OT eval and treatmonit or fall riskambula sam with walker at baseline [id number] Janna Kamilah [place] AT [address] [address] 05/14/2020 12:57:20 05/20/2020 14:32:57 Acute hypercapnic respiratory failure 574451885 J96.02 resolved, ? medication s and IVY were contributi ng factorsimp roved with BiPAP and O2wean as toleratedf /u with pulmonary outpatient in place Chronic ob structive pulmonary disease 50439214 J44.1 see aboveBreo qd, Ellipta qd tx with prednisone f/u outpatient Obstructiv e sleep apnea syndrome 01868708 G47.33 new dxsee aboveprovi amilcar 100mg qdcontinue positive airway pressureco ntinue support caref/u with pulmonary outpatient Bipolar disorder 7972182 4 F31.89 medication s adjusted in hospitalno w onduloxeti ne 60 mg qdamitript yline 25 mg qddepakote 500 mg qdclonapin 0.5 mg BID prnf/u outpatient Essential hypertension 55207687 I10 now onnorvasc 10 mg qdcoreg 12.5 mg bidf/u outpatient Gastroesop hageal reflux disease without esophagitis 795607540 K21.9 omeprazole 20 mg qdf/u outpatient Coronary arteriosclerosis 86834562 I25.10 on ASA. f/u outpatient Chronic pain 93691681 G8 9.29 question if oxycodone was contributi ng factor to respirator y failurenow on percocet 10/325 QID prnf/u outpatient [id number] DAVID GARRIDO NP [address] [address] 04/30/2024 11:24:50 05/01/2024 10:36:48 Asthenia 67976967 R53.1 deconditio regina due to recent infection and chronic medical conditions fall x 2 wks agoPT OT eval and tx.Goal is to return home. Chronic pain 93250337 G8 9.29 with increased c/o back pain post fall 2 wks ago.ER work up unremarkab le.PT OT eval and tx.APAP prnultram 50 mg q8 hr prnMonitor and adjust med prnRefer to in house PMR for eval. and tx. Bipolar disorder 9482524 4 F31.89 also with PTSDalso dealing with the of her son in [place] home meds:VPA 500 mg q am, 1000 mg q pmDuloxeti ne 60 mg q hsClonazep am 1 mg bidMonitor mood, behaviorsS upportive carePsych eval prn Chronic ob structive pulmonary disease 35610800 J44.1 States uses O2 PRN at home, currently not wearing, will let us know when she needs it.Continu e home meds:Incru se ellipta 1 inh qdBreo ellipta 1 inh qdMonitor resp. status. Anemia 791565689 D64.9 ??H/O GI bleedCurre ntly on:Fe SO4 325 mg bidB12 1000 mcg qdWill continue meds and trend CBCHgb. 10.4 in ER Essential hypertension 94890531 I10 Continue home meds:Hydra lazine 50 mg tidCardize m CD 240 mg qdMetoprol ol XL 50 mg qdTrend VS, adjust prn Hyperlipidemia 93193549 E78.5 Continue home meds:atorv astatin 80 mg qdfenofibr ate 160 mg qdLipid panel prn Coronary arteriosclerosis 90798226 I25.10 Meds as aboveMonit or CP status Atrial fibrillation 4943 6004 I48.91 Continue home meds:Eliqu is 5 mg bidDiltiaz em CD 240 mg qdMetoprol ol XL 50 mg qdMonitor VS, CP status, bleeding risk (h/o GI bleed) Overactive urinary bladder 583767977 N32.81 ? retention Currently with polo, states [...] Emmanuel Jama hageal reflux disease without esophagitis 490588507 K21.9 with hx. GI BleedConti nue omeprazole 20 mg bidMonitor GI sx. Urinary tr act infectious disease 86084878 N39.0 ??cefpodox jocelyne on d/c med list, but suspect this is in error as UA in ER negative and pt. reports prior UTI addressed during previous hospitaliz ation. Malignant tumor of colon 306116755 C18.9 s/p partial colectomy 2020, now with ostomyAble to perform self care.Mali nue home bowel meds:Imodi um 2 mg q6 hr prnreglan 10 mg q6 hr prnlomotil bid prnlactulo se 15 ml qd prnzofran 8 mg qid prncolace 100 mg bid prn Headache 18488451 R51.9 ??On B2 400 mg qd - will continue Hypokalemia 76162268 E87 .6 On KCL 20 meq qdMonitor BMP [id number] Nadiya Jorgensen NP [address] [address] 05/06/2024 10:44:30 05/07/2024 09:37:52 Asthenia 43154144 R53.1 deconditio regina due to recent infection and chronic medical conditions fall x 2 wks agoPT OT eval and tx.Goal is to return home. Chronic pain 88942950 G8 9.29 with increased c/o back pain post fall 2 wks ago.ER work up unremarkab le.PT OT eval and tx.APAP prnultram 50 mg q8 hr prnMonitor and adjust med prnRefer to in house PMR for eval. and tx. Bipolar disorder 7512350 4 F31.89 also with PTSDalso dealing with the of her son in [place] home meds:VPA 500 mg q am, 1000 mg q pmDuloxeti ne 60 mg q hsClonazep am 1 mg bidMonitor mood, behaviorsS upportive carePsych eval prn Chronic ob structive pulmonary disease 45184690 J44.1 States uses O2 PRN at home, currently not wearing, will let us know when she needs it.Continu e home meds:Incru se ellipta 1 inh qdBreo ellipta 1 inh qdMonitor resp. status. Anemia 028265936 D64.9 labs normal on last check, will reorder todayH/O GI bleedCurre ntly on:Fe SO4 325 mg bidB12 1000 mcg qdWill continue meds and trend CBCHgb. 10.4 in ER Essential hypertension 02637409 I10 Continue home meds:Hydra lazine 50 mg tidCardize m CD 240 mg qdMetoprol ol XL 50 mg qdTrend VS, adjust prn Hyperlipidemia 13968168 E78.5 Continue home meds:atorv astatin 80 mg qdfenofibr ate 160 mg qdLipid panel prn Coronary arteriosclerosis 18365694 I25.10 Meds as aboveMonit or CP status Atrial fibrillation 4943 6004 I48.91 Continue home meds:Eliqu is 5 mg bidDiltiaz em CD 240 mg qdMetoprol ol XL 50 mg qdMonitor VS, CP status, bleeding risk (h/o GI bleed) Overactive urinary bladder 869457292 N32.81 ?? retentionf oley removed last week, and voiding wellUA in ER neg. Currently on:oxybuti juan josé 5 mg qdbethanec hol 50 mg bidCan replace polo if still retaining and refer to Dr. Benitez Gastroesop hageal reflux disease without esophagitis 613239789 K21.9 with hx. GI BleedConti nueomepraz ole 20 mg bidMonitor GI sx. Urinary tr act infectious disease 96471478 N39.0 ??will send another urinalysis with recent increased confusion per last [employer]:cefpodo bernie on d/c med list, but suspect this is in error as UA in ER negative and pt. reports prior UTI addressed during previous hospitaliz ation. Malignant tumor of colon 446155562 C18.9 cancer in remission per ER note and oncologys/ p partial colectomy 2020, now with ostomyAble to perform self care.Mali nue home bowel meds:Imodi um 2 mg q6 hr prnreglan 10 mg q6 hr prnlomotil bid prnlactulo se 15 ml qd prnzofran 8 mg qid prncolace 100 mg bid prn Hypokalemia 43538431 E87 .6 On KCL 20 meq qdMonitor BMP Acute COVID-19 845641291 8 U07.1 pt with new diagnosis of [...] or vitals daily Altered mental status 41 4473092 R41.82 pt with increased confusion from regular [...] agitationm onitor closely and redirect as able [id number] Brynn Allen MD [address] [address] 05/07/2024 16:10:17 05/08/2024 10:41:40 Acute COVID-19 8940514355 U07.1 Tested + on ppeti te still good, O2 sats good on RA.Continu e molnupirav ir 800 mg BID x 5 days and robitussin 10 m l po q 6 hours prn coughTo use dexamethas one, fluids, supplement al O2 prn for sxs.Contin ue to monitor O2 sats, temp, GI sxs and po intake. Altered mental status 41 7699418 R41.82 Likely due to Covid.Fair ly oriented right now, but apparently had some hallucinat ions earlier.Co ntinue clonazepam 1 mg q 8 hrs prn agitation in addition to usual 1 mg BID as noted below.Reor ient as needed.Mon itor. Asthenia 49039839 R53.1 PT/OT as above.Goal is to return home. Chronic pain 34875369 G8 9.29 Per fell 6 wks ago, but may have had another fall more recently.N o acute findings in ED.Needs PT/OT for strengthen ing, balance, gait training, safety and function.C ontinue fall precaution s.Monitor for safety.Con tinue APAP 650 mg q 4 hrs prn and tramadol 50 mg q 8 hrs prn.Monito r pain control and function.P M&R consult Bipolar disorder 7606559 4 F31.89 Mood good right now, but says she was very confused earlier, see above.Cont inue VPA 500 mg qam and 1000 mg qpm, duloxetine 60 mg qhs and clonazepam 1 mg BID and 1 mg q 8 hrs prn.Monito r mood and behaviorsP sych consult Chronic ob structive pulmonary disease 47771250 J44.1 Uses supplement al O2 prn at home, O2 sats have been good on RA since here.Curre ntly monitoring sats TID for covid surveillan ce and will use O2 prn to maintain sats >92%.Mali nue Incruse ellipta 62.5 mcg 1 puff qd and Breo ellipta 100/25 mcg1 puff qdMonitor resp. status. Anemia 573170011 D64.89 Hgb stable in 10-12 range.H/O GI bleedConti nue FeSO4 325 mg BID and B12 1000 mcg qdMonitor labs. Essential hypertension 40083122 I10 Good control since here.Mali nue hydralazin e 50 mg TID, diltiazem CD 240 mg qd, and metoprolol XL 50 mg qdMonitor BP and labs. Hyperlipidemia 29925380 E78.49 Continue atorvastat in 80 mg qd and fenofibrat e 160 mg qdMonitor labs as outpt. Coronary arteriosclerosis 11831226 I25.10 No recent sxs.Contin ue meds as above.Vladislav tor sxs Atrial fibrillation 4943 6004 I48.0 Rate in good control on meds as above.Cont inue eliquis 5 mg BID for AC.Monitor HR and bleeding risk. Overactive urinary bladder 676024181 N32.81 S/P retention during last hospitaliz ationNow voiding wellContin ue oxybutynin 5 mg qd and bethanecho l 50 mg BIDMonitor urinary function.U ro f/u prn. Gastroesop hageal reflux disease without esophagitis 430109248 K21.9 Hx of GI BleedConti nue omeprazole 20 mg BID.Monito r GI sxs. Urinary tr act infectious disease 22380624 N30.80 Reportedly U/A ordered yest due to increased confusion, but none sent yet.Suspec t confusion is due to Covid.But will remind nursing about obtaining urine. Malignant tumor of colon 145069625 C18.8 S/P partial colectomy 2020, with ostomy [...] BID. prnF/U with oncology as planned. Hypokalemia 37196490 E87 .6 Continue KCL 20 meq qdMonitor [facility] [id number] Nadiya Jorgensen, SADE [address] [place] [address] 05/13/2024 13:43:08 05/14/2024 13:30:16 Chronic pain 75282657 G89.29 lower back pain (Per fell 6 wks ago, possibly other falls)work up unremarkab le felt rehab appropriat epain controlled todaycontP T/OT for strengthen ing, balance, gait training, safety and function.f all precaution s.Monitor for safety.APA P 650 mg q 4 hrs prntramado l 50 mg q 8 hrs prn.Monito r pain control and function.P M&R consult Acute COVID-19 221269606 8 U07.1 Tested + on 05/05 now considered recovered with mild courseComp leted molnupirav ir 800 mg BID x 5 days and robitussin 10 m l po q 6 hours prn cough, and off isolationh allucinati ons seem resolved, likely r/t covid? with underlying dementiamo nitor for sequele Altered mental status 41 [id number] R41.82 Likely due to Covid.Fair ly oriented right now, but apparently had some hallucinat ions earlier.Co ntinue clonazepam 1 mg q 8 hrs prn agitation in addition to usual 1 mg BID as noted below.Reor ient as needed.Mon itor. Asthenia [id number] R53.1 PT/OT as above.Goal is to return home. Bipolar disorder 8483913 4 F31.89 Mood good right now, but says she was very confused earlier, see above.Cont inue VPA 500 mg qam and 1000 mg qpm, duloxetine 60 mg qhs and clonazepam 1 mg BID and 1 mg q 8 hrs prn.Monito r mood and behaviorsP sych consult Chronic ob structive pulmonary disease 87399972 J44.1 Uses supplement al O2 prn at home, O2 sats have been good on RA since here.Aimee ntly monitoring sats TID for covid surveillan ce and will use O2 prn to maintain sats >92%.Mali nue Incruse ellipta 62.5 mcg 1 puff qd and Breo ellipta 100/25 mcg1 puff qdMonitor resp. status. Anemia 140303828 D64.89 Hgb stable in 10-12 range.H/O GI bleedConti nue FeSO4 325 mg BID and B12 1000 mcg qdMonitor labs. Essential hypertension 51796408 I10 Good control since here.Mali nue hydralazin e 50 mg TID, diltiazem CD 240 mg qd, and metoprolol XL 50 mg qdMonitor BP and labs. Hyperlipidemia 72901619 E78.49 Continue atorvastat in 80 mg qd and fenofibrat e 160 mg qdMonitor labs as outpt. Coronary arteriosclerosis 69558756 I25.10 No recent sxs.Contin ue meds as above.Vladislav tor sxs Atrial fibrillation 4943 6004 I48.0 Rate in good control on meds as above.Cont inue eliquis 5 mg BID for AC.Monitor HR and bleeding risk. Overactive urinary bladder 438188226 N32.81 S/P retention during last hospitaliz ationNow voiding wellContin ue oxybutynin 5 mg qd and bethanecho l 50 mg BIDMonitor urinary function.U ro f/u prn. Gastroesop hageal reflux disease without esophagitis 143326803 K21.9 Hx of GI BleedConti nue omeprazole 20 mg BID.Monito r GI sxs. Urinary tr act infectious disease 28367025 N30.80 Reportedly U/A ordered yest due to increased confusion, but none sent yet.Suspec t confusion is due to Covid.But will remind nursing about obtaining urine. Malignant tumor of colon 195537567 C18.8 S/P partial colectomy 2020, with ostomy [...] BID. prnF/U with oncology as planned. Hypokalemia 82085620 E87 .6 Continue KCL 20 meq qdMonitor BMP [id number] DAVID GARRIDO, SADE [facility] [address] [place] [address] 05/16/2024 12:44:25 05/17/2024 14:24:13 Asthenia 96051200 R53.1 deconditio regina due to recent infection and chronic medical conditions fall x 3 wks agoPT OT eval and tx. - has made some progressWi ll be going home tomorrow with support of family, VNA, GSSS. Chronic pain 99459157 G8 9.29 with increased c/o back pain post fall 3 wks ago.ER work up unremarkab le.PT OT eval and tx. - going home tomorrowAP AP prnultram 50 mg q8 hr prn - using here on occasionMo nitor and adjust med prnReferre d to in house PMR for eval. and tx., but no reports scanned into EMR, unsure if was seen. Bipolar disorder 2333509 4 F31.89 also with PTSDalso dealing with [...] eval prn Chronic ob structive pulmonary disease 94839705 J44.1 States uses O2 PRN at home, currently not wearing, will let us know when she needs it.Continu e:Incruse ellipta 1 inh qdAdvair 250/20 1 inh qdMonitor resp. status. Anemia 789781271 D64.9 ??H/O GI bleedCurre ntly on:Fe SO4 325 mg bidB12 1000 mcg qdWill continue meds and trend CBCHgb. 10.4 in ER, currently 12.5 Essential hypertension 30002183 I10 Continue home meds:Hydra lazine 50 mg tidCardize m CD 240 mg qdMetoprol ol XL 50 mg qdTrend VS, adjust prn Hyperlipidemia 62900253 E78.5 Continue home meds:atorv astatin 80 mg qdfenofibr ate 160 mg qdLipid panel prn Coronary arteriosclerosis 23110978 I25.10 Meds as aboveMonit or CP status Atrial fibrillation 4943 6004 I48.91 Continue home meds:Eliqu is 5 mg bidDiltiaz em CD 240 mg qdMetoprol ol XL 50 mg qdMonitor VS, CP status, bleeding risk (h/o GI bleed) Overactive urinary bladder 207404546 N32.81 ? retention Admitted with a polo, states placed during hospitaliz ation earlier in the month and was sent home with it. Reports also treated for UTI.UA in ER neg.Polo removed here, voiding well, no s/s retention reported by pt. or staff. Continue:o xybutinin 5 mg qdbethanec hol 50 mg bid Gastroesop hageal reflux disease without esophagitis 204018864 K21.9 with hx. GI BleedConti nue omeprazole 20 mg bidMonitor GI sx. as outpt. Urinary tr act infectious disease 96332009 N39.0 ??cefpodox jocelyne on d/c med list, but suspect this is in error as UA in ER negative and pt. reports prior UTI addressed during previous hospitaliz ation. Malignant tumor of colon 697032277 C18.9 s/p partial colectomy 2020, now with ostomyAble to perform self care.Mali nue home bowel meds:Imodi um 2 mg q6 hr prnreglan 10 mg q6 hr prnlomotil bid prnlactulo se 15 ml qd prnzofran 8 mg qid prncolace 100 mg bid prn Headache 87074056 R51.9 ??On B2 400 mg qd - will continue Hypokalemia 70390454 E87 .6 On KCL 20 meq qdMonitor BMP as outpt. Acute COVID-19 142356350 8 U07.1 Tested + on 05/05 now considered recovered with mild courseComp leted molnupirav ir 800 mg BID x 5 dayshalluc inations seem resolved, likely r/t covid? with underlying dementiamo nitor as outpt. for sequelae Altered mental status 41 3296926 R41.82 Likely due to Covid.Fair ly oriented [...] Name 04/30/2024 2 [place] Claire Duplisea [id number] Claire Duplisea 04/30/2024 1 [place] [employer] Claire Duplisea [id number] Claire Duplisea 05/06/2024 2 [place] Claire Duplisea [id number] Claire Duplisea 05/06/2024 1 [place] Claire Duplisea [id number] Claire Duplisea 05/07/2024 2 [place] Claire Duplisea [id number] Claire Duplisea 05/07/2024 1 [place] Claire Duplisea [id number] Claire Duplisea 05/13/2024 2 [place] Claire Duplisea [id number] Claire Duplisea 05/13/2024 1 [place] [employer] Claire Duplisea [id number] Claire Duplisea 05/16/2024 2 [place] Claire Duplisea [id number] Claire Duplisea 05/16/2024 1 [place] [employer] Claire Duplisea [id number] Claire Duplisea Notes Date Note Type Note Provider Name and Address Organization Details Recorded Time 04/30/2024 text/html Claire is seen to day for initial intake. She is a 58 yo lady, admitted today to [facility] from [facility] for continued care and rehab after an ER eval due to back pain. She presented to [facility] [place] 04/28/24 with worsening back [...] failure, PTSD, CADMOLST: DAYNE GARRIDO NP [address] [facility], [address], [place], [address], [facility] [employer] 04/30/2024 13:45:18 05/06/2024 text/html Claire is seen [...] a 58 yo lady, admitted to [facility] from [facility] [place] on [place]30 for continued care and rehab after an ER eval due to back pain. Per summary: She initially presented to [facility] [place] 04/28/24 with worsening back [...] HODGE: mod. fall riskMOLST: DNI Nadiya Jorgensen, MARINE FIRE FIGHTER [address] [facility] [address] [facility], [address], [place], [address], [facility] [employer] 05/06/2024 12:02:31 05/07/2024 text/html This is a compli cated 58 yo woman who is here for rehab after an ED visit forworsening back pain. [facility] [place] [facility]-04/19 for AMS.Per [...] and removal of the catheter. 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 Brynn Allen MD [address] [place] [address], [address], [place], [address], [employer] 05/07/2024 18:21:03 05/13/2024 text/html Claire is seen [...] 58 yo lady, admitted today to [facility] from [facility] [place] for continued care and rehab after an ER eval due to back pain and weakness and altered mental status. . She presented to [facility] on 04/28/24 with worsening back pain x 2 weeks after sustaining a fall at home. Work up unremarkable but would benefit from PT OT due to gross deconditioning. Details below. Since here at [facility] she has been working with therapy [...] room. of note:[facility] [place] [facility] [place]19 for AMS.Per [...] a plan to follow up with dr Benietz in office in 2 weeks for voiding trial and removal of the catheter. HODGE: mod. fall riskMOLST: DNBrice Jorgensen, SADE [address] [facility] [facility], [address], [place], [address], [facility] [employer] 05/14/2024 09:27:31 05/16/2024 text/html Claire is seen to day for discharge.She is going home tomorrow with support of family and services. She is a 58 yo lady, admitted 04/30/24 to [facility] from [facility] [place] for continued care and rehab after an ER eval due to back pain.She presented to [facility] [place] 04/28/24 with worsening back [...] PTSD, CADMOLST: DNI DAVID GARRIDO NP [address] [facility], [address], [place], [address], [facility] [employer] 05/16/2024 13:17:01 OBGyn Episode No OBEpisode recorded.
--- OUTSIDE RECORDS SUMMARY | 2024-08-12 17:50 | XMS_ITS | Encounter Summary ---
Author Organization [facility] Address [address] [place] [address] Care Team Providers Care Correction Officer Penitentiary Name Role Phone Cassandra Oconnor MD Primary Care Provider [phone] Encounter Details Date Type Department Care Team (Late Contact Info) Description 05/09/[address] 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 Social History Tobacco Use [...] Info) Description 11/06/2024 3:30 PM EDT Appointment [facility] CT Scan [address] [place] [address] documented as of this encounter Procedures Procedure Name Priority Date/Time Associated Diagnosis Comments COMPLETE BLOOD COUNT Routine 05/10/2024 8:37 AM EST Other shelter (current) drug therapy BASIC METABOLIC PANEL Routine 05/10/2024 8:37 AM EST 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 documented in this encounter Results * Basic metabolic panel (05/10/2024 8:37 AM EST) Sodium 140 133 - 145 mmol/L LAB CHEMISTRY METHOD 05/10/2024 11:21 AM [facility] Potassium 4.7 3.5 - 5.5 mmol/L LAB CHEMISTRY METHOD 05/10/2024 11:21 AM [facility] Comment:Hemolysis present Chloride 103 96 - 110 mmol/L LAB CHEMISTRY METHOD 05/10/2024 11:21 AM [facility] CO2 26 21 - 32 mmol/L LAB CHEMISTRY METHOD 05/10/2024 11:21 AM [facility] Anion Gap 11 3 - 11 LAB CHEMISTRY METHOD 05/10/2024 11:21 AM [facility] Glucose 95 70 - 100 mg/dL LAB CHEMISTRY METHOD 05/10/2024 11:21 AM [facility] BUN 16 5 - 25 mg/dL LAB CHEMISTRY METHOD 05/10/2024 11:21 AM [facility] Creatinine 0.72 0.50 - 1.10 mg/dL LAB CHEMISTRY METHOD 05/10/2024 11:21 AM [facility] eGFR 96 >=60 mL/min/1. 73m2 LAB CHEMISTRY METHOD 05/10/2024 11:21 AM [facility] Comment:Calculation based on the??Chronic Kidney Disease Epidemiology Collaboration (CKD-EPI) equation refit??without adjustment for race. BUN/Creatinine Ratio 22.2 LAB CHEMISTRY METHOD 05/10/2024 11:21 AM [facility] Calcium 9.2 8.5 - 10.5 mg/dL LAB CHEMISTRY METHOD 05/10/2024 11:21 AM [facility] Blood Venous blood specimen / Unknown Venipuncture / Unknown 05/10/2024 8:37 AM EST 05/10/2024 10:31 AM EST us Ray Lee MD LAB BLOOD ORDERABLES Final Resul t [facility] [address] [place] [address], * (ABNORMAL) Complete blood count (05/10/2024 8:37 AM EST) WBC 9.8 4.8 - 10.8 K/mcL LAB HEMETOLOGY METHOD 05/10/2024 10:50 AM EST [facility] RBC 4.00 3.80 - 4.80 M/mcL LAB HEMETOLOGY METHOD 05/10/2024 10:50 AM EST [facility] Hemoglobin 12.5 11.5 - 16.0 g/dL LAB HEMETOLOGY METHOD 05/10/2024 10:50 AM [facility] Hematocrit 42.1 35.0 - 47.0 % LAB HEMETOLOGY METHOD 05/10/2024 10:50 AM EST [facility] MCV 105.5(H) 79.0 - 98.0 FL LAB HEMETOLOGY METHOD 05/10/2024 10:50 AM EST [facility] MCH 31.3 27.0 - 32.0 pcg LAB HEMETOLOGY METHOD 05/10/2024 10:50 AM [facility] MCHC 29.7(L) 32.0 - 37.0 g/dL LAB HEMETOLOGY METHOD 05/10/2024 10:50 AM [facility] RDW 18.6(H) 11.0 - 15.0 % LAB HEMETOLOGY METHOD 05/10/2024 10:50 AM [facility] Platelets 390 130 - 400 K/mcL LAB HEMETOLOGY METHOD 05/10/2024 10:50 AM [facility] MPV 11.2(H) 7.0 - 11.0 FL LAB HEMETOLOGY METHOD 05/10/2024 10:50 AM [facility] NRBC 0.0 <1.0 % LAB HEMETOLOGY METHOD 05/10/2024 10:50 AM EST [facility] NRBC Absolute 0.00 <0.10 K/mcL LAB HEMETOLOGY METHOD 05/10/2024 10:50 AM EST [facility] Blood Venous blood specimen / Unknown Venipuncture / Unknown 05/10/2024 8:37 AM EST 05/10/2024 10:31 AM EST us Ray Lee MD LAB BLOOD ORDERABLES Final Resul t [facility] [address] [place] [address], documented in this encounter Visit Diagnoses Diagnosis Other shelter (current) drug therapy documented in this encounter Care Teams Correction Officer Penitentiary Relationship Specialty Start Date End Date Cassandra Oconnor MD [address] [place] [address] PCP - General 10/26/10 documented as of this encounter
--- OUTSIDE RECORDS SUMMARY | 2024-08-12 17:50 | XMS_ITS | Continuity of Care Document ---
Author Organization [address] [place] [address]- Care Team Providers Care Grizzlyman Name Role Phone Denny Armstrong MD, Chelsea Muniz Primary Care Physician [place]counter [facility] Date(s): 07/04/24 - 08/03/[address] [place], [place] [address] Encounter Type: Triage Allergies, Adverse Reactions, Alerts Substance Criticality Severity Reaction Reaction Severity Status sulfADIAZINE severe diarrhea A ctive ibuprofen nausea Active penicillin 1 body rash Activ e cyclobenzaprine nausea Acti ve levoFLOXacin severe diarrhea [...] Ordered Repeat number: 1 Brava barrier rings (732367) Brava barrier rings (853811), See Instructions, # 20 each, Refills 11, [...] 2:54:00 PM EDT, Route to Pharmacy Electronically, [facility], Partial fill upon patient request if the prescription is for a schedule II opioid drug., 163, cm, 09/02/21 12:26:00 EDT, Height, 90.3, kg, 09/02/21 12:26:00 EDT, Dry Weight Start Date: 09/02/21 Status: Ordered Quantity: 60.0 Unit: capsule Repeat number: 4 Coloplast Sensura #08355 [employer]ura #50546, See Instructions, # 20 each, Refills 11, [...] each Repeat number: 1 ium nitrile gloves #[id number] ium nitrile gloves #[id number], See Instructions, # 100 each, Refills 6, [...] tablet,12 Refills, Maintenance, 02/26/24 1:41:00 PM EDT, [id number], Partial fill upon patient request if the [...] Status: Ordered Repeat number: 1 nystatin topical 089515 u/gm cream 1 application, Topically, 2 times [...] Care Nurse Name: Sussy Paredes RN Position: [facility] RN Member Role: Primary Care Nurse Name: Kamari Cordon RN Position: [facility] RN Member Role: Primary Care Nurse Name: Krys Coates RN Position: [facility] ED RN W/OE and Tasks Member Role: Primary Care Nurse Name: Elizabeth Olson RN Position: [facility] RN Supv Member Role: Primary Care Nurse Name: Katerin Sterling RN Position: [facility] RN Member Role: Primary Care Nurse Name: Miguel Angel Ravi RN Position: [facility] RN Member Role: Primary Care Nurse Name: Alta Ocampo RN Position: [facility] RN Member Role: Primary Care Nurse Name: Raya Sandoval RN Position: [facility] RN Member Role: Primary Care Nurse Name: Miriam Bishop RN Position: [facility] RN Member Role: Primary Care Nurse Name: Noy Johnson RN Position: [facility] RN Member Role: Primary Care Nurse Name: Tali Haile RN Position: [facility] RN Member Role: Primary Care Nurse Name: Tatianna Newby RN Position: [facility] SN RN Member Role: Primary Care Nurse Name: Aicha Castro RN Position: [facility] RN Member Role: Primary Care Nurse Name: Karol Mims RN Position: [facility] RN Member Role: Primary Care Nurse Name: Jessi Hernandez RN Position: [facility] RN Member Role: Primary Care Nurse Name: Thalia Brito RN Position: [facility] RN Member Role: Primary Care Nurse Name: Chelsea Miles MD Position: Reference Physician Member Role: PCP Address: [address] [place] [address]- Telecom: Name: Dena Navas RN Position: [facility] RN Member Role: Primary Care Nurse Name: Korin Walters RN Position: [facility] RN Member Role: Primary Care Nurse Name: Lian Washington RN Position: [facility] Hospital Senior Systems Administrator Member Role: Primary Care Nurse Name: Timothy Foster RN Position: [facility] RN Member Role: Primary Care Nurse Care Team Related Persons Name: MCKAYLA VASQUEZ Insurance Providers Guarantor name: SEVERO VASQUEZ Health Plan Information #: 1 Payer: MEDICARE PART B OUTPT Member Number: NA Policy Number: NA Group Number: NA Health Plan Information #: 2 Payer: [employer] Member Number: NA Policy Number: NA Group Number: NA
--- OUTSIDE RECORDS SUMMARY | 2024-08-12 17:50 | XMS_ITS | Encounter Summary ---
Author Organization [facility] Address [id number] [place] [id number] Care Team Providers Care Cloth Bin Packer Name Role Phone Cassandra Oconnor MD Primary Care Provider [phone] Encounter Details Date Type Department Care Team (Late Contact Info) Description 05/07/2024 Lab Requisition [facility] - Main Lab [address] [facility] [place] [address] Ray Lee MD [address] [place] [phone] Essential (primary) hypertension Social History Tobacco [...] Info) Description 11/06/2024 3:30 PM EDT Appointment [facility] CT Scan [address] [place] [address] documented as of this encounter [...] CBC auto differential (05/07/2024 7:55 AM EST) [facility] Signature WBC 7.5 4.8 - 10.8 K/mcL LAB HEMETOLOGY METHOD 05/07/2024 10:31 AM [facility] LAB RBC 3.60(L) 3.80 - 4.80 M/mcL LAB HEMETOLOGY METHOD 05/07/2024 10:31 AM [facility] LAB Hemoglobin 11.5 11.5 - 16.0 g/dL LAB HEMETOLOGY METHOD 05/07/2024 10:31 AM [facility] LAB Hematocrit 38.7 35.0 - 47.0 % LAB HEMETOLOGY METHOD 05/07/2024 10:31 AM [facility] LAB MCV 108.7(H) 79.0 - 98.0 FL LAB HEMETOLOGY METHOD 05/07/2024 10:31 AM [facility] LAB MCH 32.3(H) 27.0 - 32.0 pcg LAB HEMETOLOGY METHOD 05/07/2024 10:31 AM [facility] LAB MCHC 29.7(L) 32.0 - 37.0 g/dL LAB HEMETOLOGY METHOD 05/07/2024 10:31 AM [facility] LAB RDW 18.4(H) 11.0 - 15.0 % LAB HEMETOLOGY METHOD 05/07/2024 10:31 AM [facility] LAB Platelets 265 130 - 400 K/mcL LAB HEMETOLOGY METHOD 05/07/2024 10:31 AM [facility] LAB MPV 11.4(H) 7.0 - 11.0 FL LAB HEMETOLOGY METHOD 05/07/2024 10:31 AM [facility] LAB NRBC 0.0 <1.0 % LAB HEMETOLOGY METHOD 05/07/2024 10:31 AM [facility] LAB NRBC Absolute 0.00 <0.10 K/mcL LAB HEMETOLOGY METHOD 05/07/2024 10:31 AM [facility] LAB Neutrophils Relative 54.4 % LAB HEMETOLOGY METHOD 05/07/2024 10:31 AM [facility] Lymphocytes Relative 26.7 % LAB HEMETOLOGY METHOD 05/07/2024 10:31 AM [facility] Monocytes Relative 15.0 % LAB HEMETOLOGY METHOD 05/07/2024 10:31 AM [facility] Eosinophils Relative 0.0 % LAB HEMETOLOGY METHOD 05/07/2024 10:31 AM [facility] Basophils Relative 1.2 % LAB HEMETOLOGY METHOD 05/07/2024 10:31 AM [facility] Immature Granulocytes Relative 2.7 % LAB HEMETOLOGY METHOD 05/07/2024 10:31 AM [facility] Neutrophils Absolute 4.07 1.50 - 7.00 K/mcL LAB HEMETOLOGY METHOD 05/07/2024 10:31 AM [facility] Lymphocytes Absolute 2.00 1.00 - 5.00 K/mcL LAB HEMETOLOGY METHOD 05/07/2024 10:31 AM [facility] Monocytes Absolute 1.12(H) 0.20 - 1.00 K/mcL LAB HEMETOLOGY METHOD 05/07/2024 10:31 AM [facility] Eosinophils Absolute 0.00 0.00 - 0.50 K/mcL LAB HEMETOLOGY METHOD 05/07/2024 10:31 AM [facility] Basophils Absolute 0.09 0.00 - 0.20 K/mcL LAB HEMETOLOGY METHOD 05/07/2024 10:31 AM EST [facility] Immature Granulocytes Absolute 0.20(H) 0.00 - 0.03 K/mcL LAB HEMETOLOGY METHOD 05/07/2024 10:31 AM EST [facility] Blood Venous blood specimen / Unknown Venipuncture / Unknown 05/07/2024 7:55 AM EST 05/07/2024 10:01 AM EST Ray Lee MD LAB BLOOD ORDERABLES Final Resul t Performing Organization Address City/[facility]/ZIP Co de Phone Number [facility] [address] [place] [address], [place] [phone] * Valproic acid level, total (05/07/2024 7:55 AM EST) Pathologist [facility] Valproic Acid, Total 71 50 - 100 mcg/mL LAB CHEMISTRY METHOD 05/07/2024 10:47 AM EST [facility] Blood Venous blood specimen / Unknown Venipuncture / Unknown 05/07/2024 7:55 AM EST 05/07/2024 10:01 AM EST Ray Lee MD LAB BLOOD ORDERABLES Final Resul t Performing Organization Address [facility]/ZIP Co de Phone Number [facility] [address] [place] [address], [place] [phone] * (ABNORMAL) Comprehensive metabolic panel (05/07/2024 7:55 AM EST) Sodium 137 133 - 145 mmol/L LAB CHEMISTRY METHOD 05/07/2024 10:52 AM EST [facility] Potassium 4.2 3.5 - 5.5 mmol/L LAB CHEMISTRY METHOD 05/07/2024 10:52 AM EST [facility] Chloride 103 96 - 110 mmol/L LAB CHEMISTRY METHOD 05/07/2024 10:52 AM EST [facility] CO2 23 21 - 32 mmol/L LAB CHEMISTRY METHOD 05/07/2024 10:52 AM [facility] Anion Gap 11 3 - 11 LAB CHEMISTRY METHOD 05/07/2024 10:52 AM [facility] Glucose 80 70 - 100 mg/dL LAB CHEMISTRY METHOD 05/07/2024 10:52 AM [facility] BUN 16 5 - 25 mg/dL LAB CHEMISTRY METHOD 05/07/2024 10:52 AM [facility] Creatinine 0.65 0.50 - 1.10 mg/dL LAB CHEMISTRY METHOD 05/07/2024 10:52 AM [facility] eGFR 101 >=60 mL/min/1. 73m2 LAB CHEMISTRY METHOD 05/07/2024 10:52 AM [facility] Comment:Calculation based on the??Chronic Kidney Disease Epidemiology Collaboration (CKD-EPI) equation refit??without adjustment for race. BUN/Creatinine Ratio 24.6 LAB CHEMISTRY METHOD 05/07/2024 10:52 AM [facility] Calcium 8.8 8.5 - 10.5 mg/dL LAB CHEMISTRY METHOD 05/07/2024 10:52 AM [facility] AST (SGOT) 25 10 - 42 unit/L LAB CHEMISTRY METHOD 05/07/2024 10:52 AM [facility] ALT (SGPT) 9(L) 10 - 60 unit/L LAB CHEMISTRY METHOD 05/07/2024 10:52 AM [facility] Alkaline Phosphatase 70 42 - 121 unit/L LAB CHEMISTRY METHOD 05/07/2024 10:52 AM [facility] Total Protein 6.0 6.0 - 8.0 g/dL LAB CHEMISTRY METHOD 05/07/2024 10:52 AM [facility] Albumin 2.7(L) 3.2 - 5.0 g/dL LAB CHEMISTRY METHOD 05/07/2024 10:52 AM [facility] Total Bilirubin 0.4 0.0 - 1.4 mg/dL LAB CHEMISTRY METHOD 05/07/2024 10:52 AM EST [facility] Blood Venous blood specimen / Unknown Venipuncture / Unknown 05/07/2024 7:55 AM EST 05/07/2024 10:01 AM EST us Ray Lee MD LAB BLOOD ORDERABLES Final Resul t [facility] [address] [place] [address], [place] [phone] documented in this encounter Visit Diagnoses Diagnosis Essential (primary) hypertension Unspecified essential hypertension documented in this encounter Care Teams Cloth Bin Packer Relationship Specialty Start Date End Date Cassandra Oconnor MD [address] [place] [address] PCP - General 10/26/10 documented as of this encounter
--- OUTSIDE RECORDS SUMMARY | 2024-08-12 17:50 | XMS_ITS | Continuity of Care Document ---
Author Organization [address] [place] [address]- Care Team Providers Care Assembler Name Role Phone Denny Armstrong MD, Amanda Primary Care Physician Encounter [facility] Date(s): 07/10/24 - 08/09/[address] [place], [place] [address] Attending Physician: Demi Flores Admitting Physician: Demi Flores Referring Physician: Demi Flores Encounter Type: Triage Allergies, Adverse Reactions, Alerts Substance Criticality Severity Reaction Reaction Severity Status ibuprofen nausea Active levoFLOXacin severe diarrhea A ctive fentaNYL hallucinations Act jake penicillin 1 body rash Activ e sulfADIAZINE severe diarrhea A ctive cyclobenzaprine nausea Acti ve Effexor unsure Active Topamax sleep walking Acti ve 1Tolerated zosyn [...] Ordered Repeat number: 1 Brava barrier rings (159348) Brava barrier rings (169276), See Instructions, # 20 each, Refills 11, [...] 2:54:00 PM EDT, Route to Pharmacy Electronically, [facility], Partial fill upon patient request if the prescription is for a schedule II opioid drug., 163, cm, 09/02/21 12:26:00 EDT, Height, 90.3, kg, 09/02/21 12:26:00 EDT, Dry Weight Start Date: 09/02/21 Status: Ordered Quantity: 60.0 Unit: capsule Repeat number: 4 Coloplast Sensura #21401 Coloplast Sensura #07621, See Instructions, # 20 each, Refills 11, [...] each Repeat number: 1 ium nitrile gloves #[id number] ium nitrile gloves #[id number], See Instructions, # 100 each, Refills 6, [...] tablet,12 Refills, Maintenance, 02/26/24 1:41:00 PM EDT, [id number], Partial fill upon patient request if the [...] Status: Ordered Repeat number: 1 nystatin topical 852170 u/gm cream 1 application, Topically, 2 times [...] Team Personnel Name: Emily Cordova RN Position: [facility] RN Member [...] RN Member Role: Primary Care Nurse Name: Nyo Johnson RN Position: [facility] RN Member Role: Primary Care Nurse Name: Tali Haile RN Position: [facility] RN Member Role: Primary Care Nurse Name: Tatianna Newby RN Position: [facility] SN RN Member Role: Primary Care Nurse Name: Aicha Castro RN Position: [facility] RN Member [...] Position: Reference Physician Member Role: PCP Address: [address] [place] [address] [address] [place] [phone]- Telecom: Name: Dena Navas RN Position: [facility] RN Member Role: Primary Care Nurse Name: Korin Walters RN Position: [facility] RN Member Role: Primary Care Nurse Name: Lian Washington RN Position: [facility] Hospital Door Closer Mechanic Member Role: Primary Care Nurse Name: Timothy Foster RN Position: [facility] RN Member Role: Primary Care Nurse Care Team Related Persons Name: MCKAYLA VASQUEZ Insurance Providers Guarantor name: SEVERO DUPLISEA Health Plan Information #: 1 Payer: MEDICARE PART B OUTPT Member Number: NA Policy Number: NA Group Number: NA Health Plan Information #: 2 Payer: [facility] Member Number: NA Policy Number: NA Group Number: NA
== END 2024-08-12 16:37 | disposition home or self-care (01) ==
PROVIDERS: PCP Internal Medicine; Visit Provider Internal Medicine
DX: C34.32 Malignant neoplasm of lower lobe, left bronchus or lung (principal); J44.1 Chronic obstructive pulmonary disease with (acute) exacerbation; Z87.891 Personal history of nicotine dependence; G47.33 Obstructive sleep apnea (adult) (pediatric); R09.02 Hypoxemia
CPT/HCPCS: 94618; 99213

== ENCOUNTER → 2024-08-12 15:53 | Outpatient (BNVA) | payer MEDICARE, MEDICAID, SELFPAY | PROVIDERS: PCP Internal Medicine; Visit Provider Internal Medicine | DX: C34.32 Malignant neoplasm of lower lobe, left bronchus or lung (principal); J44.1 Chronic obstructive pulmonary disease with (acute) exacerbation; E66.9 Obesity, unspecified; G47.33 Obstructive sleep apnea (adult) (pediatric); Z68.32 Body mass index [BMI] 32.0-32.9, adult; Z99.81 Dependence on supplemental oxygen; Z87.891 Personal history of nicotine dependence | CPT/HCPCS: 94618; 99212 ==

== ENCOUNTER 2024-08-19 10:09 | Day surgery (SDC) | payer MEDICARE, MEDICAID, SELFPAY ==
[2024-08-02 08:23] VITALS: BMI 30.9
--- NOTE | 2024-08-15 14:53 | P.CONAN_ITS ---
Documented by User: Aicha Sullivan NP 08/15/24 14:54 HPI - Anesthesia Eval Consult details Narrative: 59yo F for Left Cataract Extraction IOL Insertion Right eye 08/05/24: Midaz 2 Medically optimized. Afib (eliquis), COPD, CHF (per clearance pound per week weight loss), Lung ca s/ p LLL 2020, follows heme on for colo (s/p ostomy) and lung ca PMFSH Active Problems Active Problems: All Active Problems Left shoulder pain (Acute) Epigastric abdominal pain (Acute) Pre-op evaluation (Acute) Skin lesions (Acute) UTI (urinary tract infection) (Acute) Low back pain with left-sided sciatica (Acute) Moderate major depression (Acute) Thrombocythemia (Acute) Anemia (Acute) Melena (Acute) Cervicalgia (Acute) Tingling (Acute) Migraine (Acute) Elevated fasting glucose (Acute) Chronic pancreatitis (Acute) Atherosclerotic cardiovascular disease (Acute) Screening for hypothyroidism (Acute) Candidiasis, intertrigo (Acute) Smoker (Acute) GERD (gastroesophageal reflux disease) (Acute) Encounter to establish care (Acute) Iron deficiency anemia (Acute) Tension headache (Acute) Chronic back pain (Acute) Anxiety (Acute) Encounter for medication review (Acute) PAF (paroxysmal atrial fibrillation) (Acute ~2020) Colostomy in place (Acute ~2020) Cancer of lower lobe of left lung (Acute ~2020) Adenocarcinoma of sigmoid colon (Chronic ~2020) CAD (coronary artery disease) (Acute) Congestive heart failure (Acute) Hypoxia (Acute) COPD (chronic obstructive pulmonary disease) (Acute) HTN (hypertension) (Acute) High cholesterol (Acute) IVY (obstructive sleep apnea) (Acute) Peripheral vascular disease (Acute) Personal history of nicotine dependence (Acute) PTSD (post-traumatic stress disorder) (Acute) Renal failure (Acute) Pericardial effusion (Acute) No natural teeth (Acute) Hypernatremia (Acute) GI bleed (Acute) COVID-19 vaccine series completed (Acute) Back pain with history of spinal surgery (Acute) Hematochezia (Acute) Past Medical History Medical History Acute on chronic diastolic CHF (congestive heart failure) CHF exacerbation Respiratory failure with hypoxia and hypercapnia Chronic confusion Depression Smoker Chronic back pain Colostomy in place (~2020) Personal history of nicotine dependence Polysubstance (including opioids) dependence, binge pattern Atrial fibrillation with rapid ventricular response Congestive heart failure Restrictive lung disease COPD (chronic obstructive pulmonary disease) No natural teeth COVID-19 vaccine series completed History of COVID-19 (~04/2020) Oxygen dependent Pericardial effusion Other and unspecified hyperlipidemia Essential hypertension Peripheral vascular disease Preoperative cardiovascular examination Bilateral pneumonia Adenocarcinoma of sigmoid colon (~2020) Hypernatremia GI bleed UTI (urinary tract infection) Pleural effusion, left Colon cancer (~2020) IVY (obstructive sleep apnea) Cancer of lower lobe of left lung (~2020) GERD (gastroesophageal reflux disease) Acute and chronic respiratory failure Lung cancer Obesity Hypoventilation associated with obesity Obesity hypoventilation syndrome Respiratory failure with hypoxia and hypercapnia Rotator cuff strain Hypoxia Pneumonia Restless legs syndrome (RLS) Sleep disorder Bipolar disorder (~2009) Back pain with history of spinal surgery Renal failure Fibromyalgia Depression High cholesterol PTSD (post-traumatic stress disorder) CAD (coronary artery disease) HTN (hypertension) Family History Family History Maternal Aunt Breast cancer Stroke COPD (chronic obstructive pulmonary disease) Maternal Aunt Breast cancer COPD (chronic obstructive pulmonary disease) Mother Uterine cancer COPD (chronic obstructive pulmonary disease) HTN (hypertension) Heart disease Mental health disorder Maternal Uncle Stroke Paternal Grandmother Heart attack Parkinsons disease Sister Diabetes IBS (irritable bowel syndrome) Son HTN (hypertension) Substance use disorder Daughter HTN (hypertension) Father HTN (hypertension) Parkinsons disease Brother Heart disease Family/Other Mental health disorder Family history of problems with anesthesia: No Surgical History Surgical History History of partial colectomy (~12/2020) History of cardiac cath (~2010) History of hysterectomy (~1990) History of cholecystectomy History of appendectomy (~1982) History of colonoscopy (~08/2020) History of lobectomy of lung (~08/2020) History of esophagogastroduodenoscopy (EGD) History of bunionectomy (~1977) History of back surgery History of Problems with Anesthesia: No Social History Social History Household Members: Spouse Housing: Apartment Are you a primary post acute care registered nurse to a significant other at home: No Do you presently have visiting nurse or other home services: No Alcohol intake: never Comment: sitter at bedside Patient Tobacco Use Status: Former Tobacco user Tobacco use type: Cigarette Cigarettes Per Day: 4 Years Smoked: 40 e-Cigarette/Vaping Use: Former Use Second Hand Smoke Exposure: No Use of substances other than those prescribed or required for medical reasons: No Advance Directives: Yes Advance Directives Information Provided: No Advance Directives on File: Yes Advance Directives Date on File: 10/05/22 Patient : No : No service: No Current occupational status: unemployed and disabled Cognitive needs: Yes (walker ) Hearing needs: No Vision needs: No Meds Allergies Allergy/AdvReac Type Severity Reaction Status Date / Time Penicillins Allergy Mild Rash Verified 08/19/24 11:12 venlafaxine [From Effexor] Allergy Mild Rash Verified 08/19/24 11:12 cyclobenzaprine Allergy Unknown Unknown Verified 08/19/24 11:12 [Cyclobenzaprine] topiramate [From Topamax] Allergy Unknown Unknown Verified 08/19/24 11:12 levofloxacin [From Levaquin] AdvReac Severe Diarrhea Verified 08/19/24 11:12 Sulfa (Sulfonamide AdvReac Severe Diarrhea Verified 08/19/24 11:12 Antibiotics) fentanyl [FENTANYL] AdvReac Intermediate Hallucinati Verified 08/19/24 11:12 ons tramadol AdvReac Intermediate Hallucinati Verified 08/19/24 11:12 ons Home Medications ?Medication ?Instructions ?Recorded ?Confirmed ?Last Taken ?Type blood pressure monitor #1 ea 10/22/20 08/12/24 11/28/20 History blood pressure test kit-large #1 ea 10/22/20 08/12/24 11/28/20 History docusate sodium 100 mg capsule 100 mg PO BID PRN constipation 09/21/21 08/12/24 2 Days Ago History ~04/27/24 divalproex 500 mg tablet,extended 1,000 mg PO BEDTIME 04/15/24 08/12/24 2 Days Ago History release 24 hr ~04/27/24 metoprolol succinate 50 mg 50 mg PO DAILY 04/15/24 08/12/24 08/05/24 04:00 History tablet,extended release 24 hr fluticasone furoate 100 1 ea inhalation DAILY 04/29/24 08/12/24 2 Days Ago History mcg-vilanterol 25 mcg/dose ~04/27/24 inhalation powder (Breo Ellipta) Exam Height,Weight and Vital Signs: Height 5 ft 5 in Weight 84.368 kg Assessment and Plan Assessment Anesthesia Assessment: Chart Reviewed Final Anesthetic Review Family History of Problems with Anesthesia: No History of Problems with Anesthesia: No Documented by User: Dorothy Patel MD 08/19/24 11:24 [facility] Past Medical History Medical History Acute on chronic diastolic CHF (congestive heart failure) CHF exacerbation Respiratory failure with hypoxia and hypercapnia Chronic confusion Depression Smoker Chronic back pain Colostomy in place (~2020) Personal history of nicotine dependence Polysubstance (including opioids) dependence, binge pattern Atrial fibrillation with rapid ventricular response Congestive heart failure Restrictive lung disease COPD (chronic obstructive pulmonary disease) No natural teeth COVID-19 vaccine series completed History of COVID-19 (~04/2020) Oxygen dependent Pericardial effusion Other and unspecified hyperlipidemia Essential hypertension Peripheral vascular disease Preoperative cardiovascular examination Bilateral pneumonia Adenocarcinoma of sigmoid colon (~2020) Hypernatremia GI bleed UTI (urinary tract infection) Pleural effusion, left Colon cancer (~2020) IVY (obstructive sleep apnea) Cancer of lower lobe of left lung (~2020) GERD (gastroesophageal reflux disease) Acute and chronic respiratory failure Lung cancer Obesity Hypoventilation associated with obesity Obesity hypoventilation syndrome Respiratory failure with hypoxia and hypercapnia Rotator cuff strain Hypoxia Pneumonia Restless legs syndrome (RLS) Sleep disorder Bipolar disorder (~2009) Back pain with history of spinal surgery Renal failure Fibromyalgia Depression High cholesterol PTSD (post-traumatic stress disorder) CAD (coronary artery disease) HTN (hypertension) Family History Family History Maternal Aunt Breast cancer Stroke COPD (chronic obstructive pulmonary disease) Maternal Aunt Breast cancer COPD (chronic obstructive pulmonary disease) Mother Uterine cancer COPD (chronic obstructive pulmonary disease) HTN (hypertension) Heart disease Mental health disorder Maternal Uncle Stroke Paternal Grandmother Heart attack Parkinsons disease Sister Diabetes IBS (irritable bowel syndrome) Son HTN (hypertension) Substance use disorder Daughter HTN (hypertension) Father HTN (hypertension) Parkinsons disease Brother Heart disease Family/Other Mental health disorder Surgical History Surgical History History of partial colectomy (~12/2020) History of cardiac cath (~2010) History of hysterectomy (~1990) History of cholecystectomy History of appendectomy (~1982) History of colonoscopy (~08/2020) History of lobectomy of lung (~08/2020) History of esophagogastroduodenoscopy (EGD) History of bunionectomy (~1977) History of back surgery Social History Social History Household Members: Spouse Housing: Apartment Are you a primary post acute care registered nurse to a significant other at home: No Do you presently have visiting nurse or other home services: No Alcohol intake: never Comment: sitter at bedside Patient Tobacco Use Status: Former Tobacco user Tobacco use type: Cigarette Cigarettes Per Day: 4 Years Smoked: 40 e-Cigarette/Vaping Use: Former Use Second Hand Smoke Exposure: No Use of substances other than those prescribed or required for medical reasons: No Advance Directives: Yes Advance Directives Information Provided: No Advance Directives on File: Yes Advance Directives Date on File: 10/05/22 Patient : No : No service: No Current occupational status: unemployed and disabled Cognitive needs: Yes (walker ) Hearing needs: No Vision needs: No Meds Allergies Allergy/AdvReac Type Severity Reaction Status Date / Time Penicillins Allergy Mild Rash Verified 08/19/24 11:12 venlafaxine [From Effexor] Allergy Mild Rash Verified 08/19/24 11:12 cyclobenzaprine Allergy Unknown Unknown Verified 08/19/24 11:12 [Cyclobenzaprine] topiramate [From Topamax] Allergy Unknown Unknown Verified 08/19/24 11:12 levofloxacin [From Levaquin] AdvReac Severe Diarrhea Verified 08/19/24 11:12 Sulfa (Sulfonamide AdvReac Severe Diarrhea Verified 08/19/24 11:12 Antibiotics) fentanyl [FENTANYL] AdvReac Intermediate Hallucinati Verified 08/19/24 11:12 ons tramadol AdvReac Intermediate Hallucinati Verified 08/19/24 11:12 ons Home Medications ?Medication ?Instructions ?Recorded ?Confirmed ?Last Taken ?Type blood pressure monitor #1 ea 10/22/20 08/12/24 11/28/20 History blood pressure test kit-large #1 ea 10/22/20 08/12/24 11/28/20 History docusate sodium 100 mg capsule 100 mg PO BID PRN constipation 09/21/21 08/12/24 2 Days Ago History ~04/27/24 divalproex 500 mg tablet,extended 1,000 mg PO BEDTIME 04/15/24 08/12/24 2 Days Ago History release 24 hr ~04/27/24 metoprolol succinate 50 mg 50 mg PO DAILY 04/15/24 08/12/24 08/05/24 04:00 History tablet,extended release 24 hr fluticasone furoate 100 1 ea inhalation DAILY 04/29/24 08/12/24 2 Days Ago History mcg-vilanterol 25 mcg/dose ~04/27/24 inhalation powder (Breo Ellipta) Exam Airway Mallampati Class: II TM Dist: >3cm Neck ROM: Limited Heart: rrr Lungs: cta Assessment and Plan Assessment Anesthesia Assessment: Anesthesia Plan Discussed Final Anesthetic Review NPO: Yes ASA Class: III Final Preanesthetic Review: No Changes in Pt Med Stat, Meds/Allgs Chart Reviewed, Consent Obtained/Reviewed and Anes Risks/Benef Reviewed Patient Risk: Intermediate Anesthetic Plan Anesthetic Plan: MAC: Disposition: Standard PACU
[2024-08-19] MEDS: Ketorolac Tromethamine 0.5% Op 5 ML DROPS 1 DROP EYE-LEFT ×3 (11:29→11:41)
[2024-08-19] MEDS: Phenylephrine HCL 2.5% Oph SoL 2 ML BOTTLE 1 DROP EYE-LEFT ×3 (11:29→11:41)
[2024-08-19] MEDS: Tropicamide 1 % Ophth Sol 3 ML BTL 1 DROP EYE-LEFT ×3 (11:29→11:41)
[2024-08-19] MEDS: Tetracaine HCl/PF 0.5% Oph Sol 4 ML DROPS 1 DROP EYE-LEFT (11:29)
[2024-08-19] MEDS: Cyclopentolate 1 % Ophth Sol 2 ML DRPBTL 1 DROP EYE-LEFT ×3 (11:30→11:41)
[2024-08-19] MEDS: Lactated Ringers 500 ML 50 ML IV (11:38)
[2024-08-19 11:43] VITALS: BP 108/62; PULSE 70; RESP 18; TEMP 36.8; O2SAT 95
--- NOTE | 2024-08-19 12:04 | MHC.SHP ---
Pre-Procedural Eval Section A - 24 Hr Update-Section A only Date of Service: 08/19/24 The patient is an INPATIENT: No Changes since office visit: No Cold of Flu in the past 2 weeks, No New Medical Problems, No Changes in Medication and No Patient answered all questions The patient has been examined within 24 hours of the surgical procedure. The History & Physical has been completed within 30 days and I have reviewed it.: Yes Section B - Complete if H&P > 30 days Chief Complaint: Age-related nuclear cataract, left eye Allergies: Allergies Allergy/AdvReac Type Severity Reaction Status Date / Time Penicillins Allergy Mild Rash Verified 08/19/24 11:12 venlafaxine [From Effexor] Allergy Mild Rash Verified 08/19/24 11:12 cyclobenzaprine Allergy Unknown Unknown Verified 08/19/24 11:12 [Cyclobenzaprine] topiramate [From Topamax] Allergy Unknown Unknown Verified 08/19/24 11:12 levofloxacin [From Levaquin] AdvReac Severe Diarrhea Verified 08/19/24 11:12 Sulfa (Sulfonamide AdvReac Severe Diarrhea Verified 08/19/24 11:12 Antibiotics) fentanyl [FENTANYL] AdvReac Intermediate Hallucinati Verified 08/19/24 11:12 ons tramadol AdvReac Intermediate Hallucinati Verified 08/19/24 11:12 ons Plan Diagnosis/Plan: Unchanged I have reviewed the history and physical and performed a pertinent physical examination on my patient. No changes have occurred unless specified. Time Spent With Patient Time: Total time managing care of this patient today ____ minutes.
--- NOTE | 2024-08-19 12:05 | HO.PNOPHT ---
Ophthalmology Procedure Procedure Date of Service: 08/19/24 Ophthalmology Viscoelastic: Healon Duet Dual Pack Pro Ophthalmology Lenses: IOL Acrysof MP - [id number] (22.5) Procedure Notes: PREOPERATIVE DIAGNOSIS: Decreased visual acuity left eye secondary to cataract POSTOPERATIVE DIAGNOSIS: Same PROCEDURE: Left cataract extraction with intraocular lens insertion SURGEON: Allen Johnson M.D. ANESTHESIA: Topical/MAC ESTIMATED BLOOD LOSS: None COMPLICATIONS: None After obtaining informed consent, the patient was brought to the operation room suite and placed in the supine position. After adequate sedation per anesthesia, topical drops of Tetracaine were given to the left eye. The eye was then prepped and draped in the usual sterile fashion. The operating room microscope was then positioned over the operative eye and a lid speculum placed. A paracentesis was created. Viscoelastic was then instilled into the anterior chamber. A three plane incision was then created temporally, utilizing a 2.85 mm keratome. Capsulotomy forceps were then utilized to create a circular tear capsulotomy. Hydrodissection and hydrodelineation were carried out until adequate mobilization of the nucleus occurred. Phacoemulsification was then utilized to remove the dense central nucleus followed by removal of the cortical material utilizing the automated aspiration irrigation unit. Viscoat elastic was instilled into the posterior capsular bag followed by placement of a posterior chamber intraocular lens without difficulty. The residual Viscoat elastic was then removed utilizing the automated IA machine. The wound was check and found to be watertight. The patient tolerated the procedure well and the lid speculum was removed. Intracameral injection of Vigamox 0.1 mL followed by a subtenon injection of Kenalog-40 0.2 mL were administered. The patient will be seen in the a.m.
[2024-08-19 12:59] VITALS: BP 141/89; PULSE 65; RESP 12; TEMP 36.4; O2SAT 99
[2024-08-19 13:14] VITALS: BP 112/58; PULSE 63; RESP 16; TEMP 36.4; O2SAT 93
== END 2024-08-19 13:22 | disposition home or self-care (01) ==
PROVIDERS: PCP Internal Medicine; Visit Provider Ophthalmology
PROC: (CPT 66985; principal; 2024-08-19 13:00)
DX: H25.12 Age-related nuclear cataract, left eye (principal); Z83.511 Family history of glaucoma; H52.4 Presbyopia; I11.0 Hypertensive heart disease with heart failure; I50.9 Heart failure, unspecified; E78.00 Pure hypercholesterolemia, unspecified; Z90.49 Acquired absence of other specified parts of digestive tract; Z85.038 Personal history of other malignant neoplasm of large intestine; I73.9 Peripheral vascular disease, unspecified; J44.9 Chronic obstructive pulmonary disease, unspecified; Z99.81 Dependence on supplemental oxygen; Z79.51 Long term (current) use of inhaled steroids; Z79.01 Long term (current) use of anticoagulants; Z79.899 Other long term (current) drug therapy; Z88.1 Allergy status to other antibiotic agents; Z88.8 Allergy status to other drugs, medicaments and biological substances; Z87.891 Personal history of nicotine dependence
CPT/HCPCS: 66984; J0131; J2250; J3301; V2630

== ENCOUNTER 2024-08-23 09:44 | Outpatient (REF) | payer MEDICARE, MEDICAID, SELFPAY ==
--- NOTE | ~2024-08-23 | FL_ITS ---
EXAMINATION: UPPER GI AIR CONTRAST SERIES CLINICAL INFORMATION: Epigastric pain COMPARISON: None available. TECHNIQUE: Routine upper GI a contrast study was performed. FINDINGS: Bilateral administration of thick barium and effervescent granules there is normal propagation bolus from the oral cavity through the pharynx, esophagus into stomach without any evidence of obstruction, narrowing or stricture. There is no extrinsic compression seen. On placing supine and prone lying course, caliber and peristalsis of the stomach, duodenal bulb and the CBD is normal. There is a small hiatal hernia with moderate gastroesophageal reflux into the upper esophagus. The mucosal pattern of the esophagus, stomach and the duodenum is normal. There are surgical dawna in the right upper quadrant likely from previous cholecystectomy. There is spinal hardware for fusion. FLUOROSCOPY TIME: 1 minute 34 seconds DOSE AREA PRODUCT: 156.7 uGy-m2 (microgray-meter squared) FL/FL upper GI series IMPRESSION: Small hiatal hernia with mild gastroesophageal reflux. Electronically signed by: Umair Grimaldo MD 08/23/2024 11:30 AM EDT
== END 2024-08-23 09:45 | disposition home or self-care (01) ==
LOC: HO.XRAY 09:44
PROVIDERS: PCP Internal Medicine; Visit Provider Internal Medicine
DX: R10.13 Epigastric pain (principal)
CPT/HCPCS: 74240

== ENCOUNTER → 2024-08-23 09:47 | Outpatient (BNV) | payer MEDICARE, MEDICAID, SELFPAY | PROVIDERS: PCP Internal Medicine; Visit Provider Radiology Diagnostic Radiology | DX: K21.9 Gastro-esophageal reflux disease without esophagitis (principal) | CPT/HCPCS: 74246 ==

== ENCOUNTER 2024-09-05 07:50 | Emergency (ER) | payer MEDICARE, MEDICAID, SELFPAY ==
--- NOTE | ~2024-09-05 | CT_ITS ---
EXAMINATION: CT HIP WITHOUT IV CONTRAST RIGHT HISTORY: R hip pain. ?mets. TECHNIQUE: Serial 2 mm helically acquired images were obtained through the right hip per standard departmental protocol. Coronal and sagittal reformats were also obtained and evaluated. One or more of the following techniques was used for dose reduction: Automated exposure control, adjustment of the mA and/or kV according to patient size, use of iterative reconstruction technique. DLP: 247 mGy-cm COMPARISON: There are no prior studies for comparison. FINDINGS: Osseous mineralization is normal. No fracture or dislocation is seen. No abnormal lytic or sclerotic focus is identified. There is mild narrowing of the joint space. Evaluation of the soft tissues demonstrates no pelvic ascites or lymphadenopathy. There is a 3.0 cm soft tissue mass posterior to the bladder which may represent the patient's known neoplasm. CT/CT hip RT wo IV con IMPRESSION: 1. No evidence of fracture of the left hip. No definite evidence of metastatic disease. If this remains a clinical concern, MRI is recommended. 2. 3.0 cm soft tissue mass at the posterior aspect of the urinary bladder which may represent the patient's known bladder carcinoma. Electronically signed by: Parrish Lerma MD 09/05/2024 12:49 PM EDT
--- NOTE | ~2024-09-05 | CT_ITS ---
EXAMINATION: CT ABDOMEN PELVIS WITH IV CONTRAST HISTORY: low abd pain hx bladder CA. Eval Lumbar spine. COMPARISON: Comparison is made with the prior examination dated 03/26/2024. TECHNIQUE: CT scan of the abdomen and pelvis was performed following administration of 85 mL Omnipaque 350 using standard departmental protocol. Coronal and sagittal reformatted images were generated and reviewed. Oral contrast material was not administered at the request of the referring physician. This CT exam was performed with one or more of the following dose reduction techniques: automated exposure control, adjustment of the mA and/or kV according to patient size, use of iterative reconstruction technique. DLP: 939 mGy-cm FINDINGS: LOWER CHEST: The visualized lung bases are clear. There is no pleural effusion. CARDIOVASCULATURE: The heart is normal in size. There is no pericardial effusion. LIVER: The liver is normal in size and contour. Again seen is a subcentimeter hypodensity in the inferior right lobe which is too small to accurately characterize. The hepatic and portal veins are patent. GALLBLADDER / BILE DUCTS: The patient is status post cholecystectomy. Again seen is mild dilatation of the common bile duct, without change. SPLEEN: The spleen is normal in size. No focal splenic lesion is identified. PANCREAS: The pancreas is unremarkable in appearance. ADRENAL GLANDS: Within normal limits. KIDNEYS/RETROPERITONEUM: No renal calculi are identified. There is no hydronephrosis. No renal masses are identified. LYMPH NODES: No abdominal or pelvic lymphadenopathy. VASCULATURE: The abdominal aorta demonstrates severe atherosclerotic calcification, but is normal in caliber. MESENTERY/PERITONEUM: No free fluid. There is no free intraperitoneal gas. STOMACH: The stomach is collapsed, limiting evaluation. SMALL BOWEL: The small bowel is normal in caliber. COLON: The patient is status post descending colostomy in the left lower quadrant. There is a parastomal hernia containing a portion of the transverse colon. APPENDIX: The appendix is not seen, however no inflammatory changes are seen adjacent to the cecum. URINARY BLADDER/PELVIC ORGANS: There is a 2.9 cm soft tissue density at the posterior aspect of the urinary bladder. By report, the patient is status post hysterectomy. Findings may represent a bladder mass. BONES / SOFT TISSUES: The patient is status post posterior fusion of L4-S1 with pedicle screws and spinal stabilization rods. There is degenerative disc disease of the spine. CT/CT abdomen pelvis w IV con IMPRESSION: 1. 2.9 cm soft tissue density with posterior fracture of the urinary bladder suspicious for bladder mass. 2. Status post posterior fusion of L4-S1 with pedicle screws. Degenerative disc disease. 4. Severe atherosclerotic calcification of the abdominal aorta. Electronically signed by: Parrish Lerma MD 09/05/2024 12:44 PM EDT
[2024-09-05 07:51] VITALS: BP 171/75; PULSE 113; RESP 20; TEMP 36.4; O2SAT 94; BMI 31.8
--- OUTSIDE RECORDS SUMMARY | 2024-09-05 08:29 | XMS_ITS | Encounter Summary ---
Author Organization [facility] Address [address] [place] [address] Care Team Providers Care Caddy Packer Name Role Phone Cassandra Oconnor MD Primary Care Provider [phone] [phone] Encounter Details Date Type Department Care Team (Late Contact Info) Description 05/23/[address] [facility] - Main Lab 299 [facility] [place] [address] Ray Lee MD [address] [place] [phone] Other senior living (current) drug therapy Social History Tobacco Use [...] Info) Description 11/06/2024 3:30 PM EDT Appointment [facility] CT Scan [address] [place] [phone] 11/14/2024 1:30 PM EDT Office Visit Thoracic Surgery - [place] 299 [facility] [address] [place] [phone] Annie Hall PA 299 [facility], [address] [place], [place] [phone] documented as of this encounter Visit Diagnoses Diagnosis Other senior living (current) drug therapy documented in this encounter Care Teams Caddy Packer Relationship Specialty Start Date End Date Cassandra Oconnor MD [address] [place] [address] PCP - General 10/26/10 documented as of this encounter
--- OUTSIDE RECORDS SUMMARY | 2024-09-05 08:29 | XMS_ITS | Encounter Summary ---
Author Organization [facility] Address [address] [place] [address] Care Team Providers Care Commercial Lending Assistant Name Role Phone Cassandra Oconnor MD Primary Care Provider +1 [phone] Encounter Details Date Type Department Care Team (Late Contact Info) Description 05/16/[address] [facility] - Main Lab 299 [facility] [place] [address] Ray Lee MD [address] [place] [phone] Other skilled nursing (current) drug therapy Social History Tobacco Use [...] Info) Description 11/06/2024 3:30 PM EDT Appointment [facility] CT Scan [address] [place] [phone] 11/14/2024 1:30 PM EDT Office Visit Thoracic Surgery - [place] 299 [facility] [address] [place] [phone] Annie Hall PA 299 [facility], [address] [place], [place] [phone] documented as of this encounter Procedures Procedure Name Priority Date/Time Associated Diagnosis Comments COMPLETE BLOOD COUNT Routine 05/17/2024 6:14 AM EST Other termite treater (current) drug therapy BASIC METABOLIC PANEL Routine 05/17/2024 6:14 AM EST Other skilled nursing (current) drug therapy documented in this encounter Results * (ABNORMAL) Basic metabolic panel (05/17/2024 6:14 AM EST) Sodium 142 133 - 145 mmol/L LAB CHEMISTRY METHOD 05/17/2024 11:20 AM [facility] Potassium 4.6 3.5 - 5.5 mmol/L LAB CHEMISTRY METHOD 05/17/2024 11:20 AM [facility] Chloride 104 96 - 110 mmol/L LAB CHEMISTRY METHOD 05/17/2024 11:20 AM [facility] CO2 26 21 - 32 mmol/L LAB CHEMISTRY METHOD 05/17/2024 11:20 AM [facility] Anion Gap 12(H) 3 - 11 LAB CHEMISTRY METHOD 05/17/2024 11:20 AM [facility] Glucose 102(H) 70 - 100 mg/dL LAB CHEMISTRY METHOD 05/17/2024 11:20 AM [facility] BUN 17 5 - 25 mg/dL LAB CHEMISTRY METHOD 05/17/2024 11:20 AM [facility] Creatinine 0.87 0.50 - 1.10 mg/dL LAB CHEMISTRY METHOD 05/17/2024 11:20 AM [facility] eGFR 76 >=60 mL/min/1. 73m2 LAB CHEMISTRY METHOD 05/17/2024 11:20 AM [facility] Comment:Calculation based on the??Chronic Kidney Disease Epidemiology Collaboration (CKD-EPI) equation refit??without adjustment for race. BUN/Creatinine Ratio 19.5 LAB CHEMISTRY METHOD 05/17/2024 11:20 AM [facility] Calcium 9.1 8.5 - 10.5 mg/dL LAB CHEMISTRY METHOD 05/17/2024 11:20 AM EST [facility] Blood Venous blood specimen / Unknown Venipuncture / Unknown 05/17/2024 6:14 AM EST 05/17/2024 10:16 AM EST us Ray Lee MD LAB BLOOD ORDERABLES Final Resul t [facility] [address] [place] [address], [place] [phone] * (ABNORMAL) Complete blood count (05/17/2024 6:14 AM EST) WBC 9.7 4.8 - 10.8 K/mcL LAB HEMETOLOGY METHOD 05/17/2024 10:47 AM [facility] RBC 3.50(L) 3.80 - 4.80 M/mcL LAB HEMETOLOGY METHOD 05/17/2024 10:47 AM [facility] Hemoglobin 11.0(L) 11.5 - 16.0 g/dL LAB HEMETOLOGY METHOD 05/17/2024 10:47 AM [facility] Hematocrit 36.4 35.0 - 47.0 % LAB HEMETOLOGY METHOD 05/17/2024 10:47 AM [facility] MCV 103.7(H) 79.0 - 98.0 FL LAB HEMETOLOGY METHOD 05/17/2024 10:47 AM [facility] MCH 31.3 27.0 - 32.0 pcg LAB HEMETOLOGY METHOD 05/17/2024 10:47 AM [facility] MCHC 30.2(L) 32.0 - 37.0 g/dL LAB HEMETOLOGY METHOD 05/17/2024 10:47 AM [facility] RDW 17.7(H) 11.0 - 15.0 % LAB HEMETOLOGY METHOD 05/17/2024 10:47 AM EST [facility] Platelets 303 130 - 400 K/mcL LAB HEMETOLOGY METHOD 05/17/2024 10:47 AM EST [facility] MPV 11.1(H) 7.0 - 11.0 FL LAB HEMETOLOGY METHOD 05/17/2024 10:47 AM EST [facility] NRBC 0.0 <1.0 % LAB HEMETOLOGY METHOD 05/17/2024 10:47 AM EST [facility] NRBC Absolute 0.00 <0.10 K/mcL LAB HEMETOLOGY METHOD 05/17/2024 10:47 AM [facility] Blood Venous blood specimen / Unknown Venipuncture / Unknown 05/17/2024 6:14 AM EST 05/17/2024 10:14 AM EST us Ray Lee MD LAB BLOOD ORDERABLES Final Resul t [facility] [address] [place] [address], documented in this encounter Visit Diagnoses Diagnosis Other termite treater (current) drug therapy documented in this encounter Care Teams Commercial Lending Assistant Relationship Specialty Start Date End Date Cassandra Oconnor MD [address] [place] [address] PCP - General 10/26/10 documented as of this encounter
--- OUTSIDE RECORDS SUMMARY | 2024-09-05 08:29 | XMS_ITS | Clinical Summary ---
Author Organization [address] Address [address] [place] [address] Phone Care Team Providers Care Control Center Operator Name Role Phone Cassandra Oconnor MD Primary Care Provider [phone] [phone] Encounters Date Type Department Care Team Description 08/02/2024 10:39 AM EST - 08/02/2024 11:59 PM EST Hospital Encounter [facility] PET Scan [address] [place] [address] Malignant neoplasm of sigmoid colon (CMS/HCC) Discharge Disposition: Home or Self Care from Last 3 Months Surgical History Surgery Date Site/Laterality Comments OTHER SURGICAL HISTORY PROCEDURE: PA UNLISTED PROCEDURE SPINE; COMMENT: lumbar spine Sx. Metal hardware in place. HYSTERECTOMY PROCEDURE: HISTORICAL HYSTERECTOMY APPENDECTOMY PROCEDURE: HISTORICAL APPENDECTOMY CHOLECYSTECTOMY PROCEDURE: HISTORICAL CHOLECYSTECTOMY BACK SURGERY PROCEDURE: HISTORICAL BACK SURGERY APPENDECTOMY PROCEDURE: PA APPENDECTOMY CHOLECYSTECTOMY PROCEDURE: PA LAPAROSCOPY SURG CHOLECYSTECTOMY Medical History Medical History [...] Info) Description 11/06/2024 3:30 PM EDT Appointment [facility] CT Scan [address] [place] [phone] 11/14/2024 1:30 PM EDT Office Visit Thoracic Surgery - [place] 299 [facility] [address] [place] [phone] Annie Hall PA [address] [facility], [address] [place] [address] Health Maintenance Due Date Last Done Comments [...] Influencers of Health Screening 05/18/2022 RSV Immunization Adult Patients (1 - Risk 60-74 years 1-dose series) [...] PANEL Routine 05/17/2024 6:14 AM EST Other exterminator (current) drug therapy from Last 3 Months or Most Recently Relevant to Health Maintenance Results * PET CT Skull to Mid [...] -------- FINAL REPORT -------- Dictated By: Mellissa Cbua Dictated Date: 08/05/2024 09:39 ET Assigned Physician: Mellissa Cuba Reviewed and Electronically Signed By: Mellissa Cuba Signed Date: 08/05/2024 10:57 ET Workstation ID: [id number] Transcribed By: Self Edit Transcribed Date: 08/05/2024 [...] Signed Date: 08/05/2024 10:57 ET Workstation ID: [id number] Transcribed By: Self Edit Transcribed Date: 08/05/2024 09:39 ET Aliza Ahumada MD [facility] PROCEDURES Final Result * (ABNORMAL) Basic metabolic panel (05/17/2024 6:14 AM EST) Sodium 142 133 - 145 mmol/L LAB CHEMISTRY METHOD 05/17/2024 11:20 AM EST [facility] Potassium 4.6 3.5 - 5.5 mmol/L LAB CHEMISTRY METHOD 05/17/2024 11:20 AM [facility] Chloride 104 96 - 110 mmol/L LAB CHEMISTRY METHOD 05/17/2024 11:20 AM [facility] CO2 26 21 - 32 mmol/L LAB CHEMISTRY METHOD 05/17/2024 11:20 AM [facility] Anion Gap 12(H) 3 - 11 LAB CHEMISTRY METHOD 05/17/2024 11:20 AM [facility] Glucose 102(H) 70 - 100 mg/dL LAB CHEMISTRY METHOD 05/17/2024 11:20 AM [facility] BUN 17 5 - 25 mg/dL LAB CHEMISTRY METHOD 05/17/2024 11:20 AM [facility] Creatinine 0.87 0.50 - 1.10 mg/dL LAB CHEMISTRY METHOD 05/17/2024 11:20 AM [facility] eGFR 76 >=60 mL/min/1. 73m2 LAB CHEMISTRY METHOD 05/17/2024 11:20 AM [facility] Comment:Calculation based on the??Chronic Kidney Disease Epidemiology Collaboration (CKD-EPI) equation refit??without adjustment for race. 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
--- OUTSIDE RECORDS SUMMARY | 2024-09-05 08:29 | XMS_ITS | Encounter Summary ---
Author Organization [employer] Address [address] [place] [address] [address] [place] [address] Care Team Providers Care Billet Cutter Name Role Phone Unavailable Primary Care Provider Unavailabl e Encounter Details Date Type Department Care Team (Late st Contact Info) Description 08/06/2024 Orders Only [facility] [address] [place] [address] Provider, Historical, Social History Tobacco Use Types Packs/Day Years [...] Comments PET CT SKULL TO MID THIGH W FDG Routine 08/02/2024 2:48 PM EST documented in this encounter Results * PET/CT FDG Skull Base To Mid-Thigh (08/02/2024 2:48 PM EST) Anatomical Region Laterality Modality Computed Tomogra phy us Historical Provider MD MENDOZA CT PROCEDURES Final R esult documented in this encounter Visit Diagnoses Not on filedocumented in this encounter
--- OUTSIDE RECORDS SUMMARY | 2024-09-05 08:29 | XMS_ITS | Encounter Summary ---
Author Organization [facility] Address [address] [place] [address] Care Team Providers Care Middleware Solutions Architect Name Role Phone Cassandra Oconnor MD Primary Care Provider [phone] [phone] Encounter Details Date Type Department Care Team (Late Contact Info) Description 05/03/2024 Lab Requisition [facility] - Main Lab 299 [facility] [place] [address] Ray Lee MD [address] [place] [phone] Other usp (current) drug therapy Social History Tobacco Use [...] Info) Description 11/06/2024 3:30 PM EDT Appointment [facility] CT Scan [address] [place] [phone] 11/14/2024 1:30 PM EDT Office Visit Thoracic Surgery - [place] 299 [facility] [address] [place] [phone] Annie Hall PA 299 [facility], [address] [place], [place] [phone] documented as of this encounter Procedures Procedure Name Priority Date/Time Associated Diagnosis Comments COMPLETE BLOOD COUNT Routine 05/03/2024 5:52 AM EST Other terminologist (current) drug therapy VALPROIC ACID LEVEL, TOTAL Routine 05/03/2024 5:52 AM EST Other terminologist (current) drug therapy COMPREHENSIVE METABOLIC PANEL Routine 05/03/2024 5:52 AM EST Other usp (current) drug therapy documented in this encounter Results * Valproic acid level, total (05/03/2024 5:52 AM EST) Valproic Acid, Total 77 50 - 100 mcg/mL LAB CHEMISTRY METHOD 05/03/2024 8:18 AM EST [facility] Blood Venous blood specimen / Unknown Venipuncture / Unknown 05/03/2024 5:52 AM EST 05/03/2024 7:30 AM EST us Ray Lee MD LAB BLOOD ORDERABLES Final Resul t [facility] 299 [place] [address], * (ABNORMAL) Comprehensive metabolic panel (05/03/2024 5:52 AM EST) Sodium 135 133 - 145 mmol/L LAB CHEMISTRY METHOD 05/03/2024 8:18 AM EST [facility] Potassium 4.5 3.5 - 5.5 mmol/L LAB CHEMISTRY METHOD 05/03/2024 8:18 AM EST [facility] Chloride 101 96 - 110 mmol/L LAB CHEMISTRY METHOD 05/03/2024 8:18 AM EST [facility] CO2 27 21 - 32 mmol/L LAB CHEMISTRY METHOD 05/03/2024 8:18 AM EST [facility] Anion Gap 7 3 - 11 LAB CHEMISTRY METHOD 05/03/2024 8:18 AM EST [facility] Glucose 97 70 - 100 mg/dL LAB CHEMISTRY METHOD 05/03/2024 8:18 AM [facility] BUN 19 5 - 25 mg/dL LAB CHEMISTRY METHOD 05/03/2024 8:18 AM [facility] Creatinine 0.90 0.50 - 1.10 mg/dL LAB CHEMISTRY METHOD 05/03/2024 8:18 AM [facility] eGFR 73 >=60 mL/min/1. 73m2 LAB CHEMISTRY METHOD 05/03/2024 8:18 AM [facility] Comment:Calculation based on the??Chronic Kidney Disease Epidemiology Collaboration (CKD-EPI) equation refit??without adjustment for race. BUN/Creatinine Ratio 21.1 LAB CHEMISTRY METHOD 05/03/2024 8:18 AM [facility] Calcium 9.0 8.5 - 10.5 mg/dL LAB CHEMISTRY METHOD 05/03/2024 8:18 AM [facility] AST (SGOT) 34 10 - 42 unit/L LAB CHEMISTRY METHOD 05/03/2024 8:18 AM [facility] ALT (SGPT) 13 10 - 60 unit/L LAB CHEMISTRY METHOD 05/03/2024 8:18 AM [facility] Alkaline Phosphatase 81 42 - 121 unit/L LAB CHEMISTRY METHOD 05/03/2024 8:18 AM [facility] Total Protein 6.1 6.0 - 8.0 g/dL LAB CHEMISTRY METHOD 05/03/2024 8:18 AM [facility] Albumin 3.1(L) 3.2 - 5.0 g/dL LAB CHEMISTRY METHOD 05/03/2024 8:18 AM [facility] Total Bilirubin 0.2 0.0 - 1.4 mg/dL LAB CHEMISTRY METHOD 05/03/2024 8:18 AM [facility] Blood Venous blood specimen / Unknown Venipuncture / Unknown 05/03/2024 5:52 AM EST 05/03/2024 7:30 AM EST us Ray Lee MD LAB BLOOD ORDERABLES Final Resul t [facility] [address] [place] [address], [place] [phone] * (ABNORMAL) Complete blood count (05/03/2024 5:52 AM EST) WBC 10.2 4.8 - 10.8 K/mcL LAB HEMETOLOGY METHOD 05/03/2024 7:53 AM EST [facility] RBC 3.60(L) 3.80 - 4.80 M/mcL LAB HEMETOLOGY METHOD 05/03/2024 7:53 AM [facility] Hemoglobin 11.7 11.5 - 16.0 g/dL LAB HEMETOLOGY METHOD 05/03/2024 7:53 AM [facility] Hematocrit 38.3 35.0 - 47.0 % LAB HEMETOLOGY METHOD 05/03/2024 7:53 AM [facility] MCV 106.1(H) 79.0 - 98.0 FL LAB HEMETOLOGY METHOD 05/03/2024 7:53 AM [facility] MCH 32.4(H) 27.0 - 32.0 pcg LAB HEMETOLOGY METHOD 05/03/2024 7:53 AM [facility] MCHC 30.5(L) 32.0 - 37.0 g/dL LAB HEMETOLOGY METHOD 05/03/2024 7:53 AM [facility] RDW 17.5(H) 11.0 - 15.0 % LAB HEMETOLOGY METHOD 05/03/2024 7:53 AM [facility] Platelets 275 130 - 400 K/mcL LAB HEMETOLOGY METHOD 05/03/2024 7:53 AM EST [facility] MPV 10.6 7.0 - 11.0 FL LAB HEMETOLOGY METHOD 05/03/2024 7:53 AM EST [facility] NRBC 0.0 <1.0 % LAB HEMETOLOGY METHOD 05/03/2024 7:53 AM EST [facility] NRBC Absolute 0.00 <0.10 K/mcL LAB HEMETOLOGY METHOD 05/03/2024 7:53 AM EST [facility] Blood Venous blood specimen / Unknown Venipuncture / Unknown 05/03/2024 5:52 AM EST 05/03/2024 7:30 AM EST us Ray Lee MD LAB BLOOD ORDERABLES Final Resul t [facility] [address] [place] [address], documented in this encounter Visit Diagnoses Diagnosis Other usp (current) drug therapy documented in this encounter Care Teams Middleware Solutions Architect Relationship Specialty Start Date End Date Cassandra Oconnor MD [address] [place] [address] PCP - General 10/26/10 documented as of this encounter
--- OUTSIDE RECORDS SUMMARY | 2024-09-05 08:29 | XMS_ITS | Encounter Summary ---
Author Organization [facility] Address [address] [place] [address] Care Team Providers Care Underground Conduit Installer Name Role Phone Cassandra Oconnor MD Primary Care Provider [phone] Encounter Details Date Type Department Care Team (Late Contact Info) Description 05/09/2024 Lab Requisition [facility] - Main Lab 299 [facility] [email or web address] [address] Ray Lee MD [address] [place] [phone] Other long-term (current) drug therapy Social History Tobacco Use [...] Info) Description 11/06/2024 3:30 PM EDT Appointment [facility] CT Scan [address] [place] [phone] 11/14/2024 1:30 PM EDT Office Visit Thoracic Surgery - [place] 299 [facility] [address] [place] [phone] Annie Hall PA 299 [facility], [address] [place], [place] [phone] documented as of this encounter Procedures Procedure Name Priority Date/Time Associated Diagnosis Comments COMPLETE BLOOD COUNT Routine 05/10/2024 8:37 AM EST Other termite control 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 BASIC METABOLIC PANEL Routine 05/10/2024 8:37 AM EST Other long-term (current) drug therapy documented in this encounter Results * Basic metabolic panel (05/10/2024 8:37 AM EST) Sodium 140 133 - 145 mmol/L LAB CHEMISTRY METHOD 05/10/2024 11:21 AM [facility] Potassium 4.7 3.5 [...] t [facility] [address] [place] [address], * (ABNORMAL) Complete blood count (05/10/2024 8:37 AM EST) WBC 9.8 4.8 - 10.8 K/mcL LAB HEMETOLOGY METHOD 05/10/2024 10:50 AM [facility] RBC 4.00 3.80 - 4.80 [facility] LAB HEMETOLOGY METHOD 05/10/2024 10:50 AM [facility]ITY [...] LAB HEMETOLOGY METHOD 05/10/2024 10:50 AM EST [facility] MPV 11.2(H) 7.0 - 11.0 FL LAB HEMETOLOGY METHOD 05/10/2024 10:50 AM EST [facility] NRBC 0.0 <1.0 % LAB HEMETOLOGY METHOD 05/10/2024 10:50 AM EST [facility] NRBC Absolute 0.00 <0.10 K/mcL LAB HEMETOLOGY METHOD 05/10/2024 10:50 AM EST [facility] Blood Venous blood specimen / Unknown Venipuncture / Unknown 05/10/2024 8:37 AM EST 05/10/2024 10:31 AM EST us Ray Lee MD LAB BLOOD ORDERABLES Final Resul t [facility] [address] [place] [address], documented in this encounter Visit Diagnoses Diagnosis Other long-term (current) drug therapy documented in this encounter Care Teams Underground Conduit Installer Relationship Specialty Start Date End Date Cassandra Oconnor MD [address] [place] [address] PCP - General 10/26/10 documented as of this encounter
--- OUTSIDE RECORDS SUMMARY | 2024-09-05 08:29 | XMS_ITS | Encounter Summary ---
Author Organization [facility] Address [id number] [place] [phone] Care Team Providers Care C D Stripper Name Role Phone Cassandra Oconnor MD Primary Care Provider [phone] Encounter Details Date Type Department Care Team (Late Contact Info) Description 05/07/2024 Lab Requisition [facility] - Main Lab [address] [facility] [place] [address] Ray Lee MD [address] [place] [phone] Essential (primary) hypertension Social History Tobacco [...] Info) Description 11/06/2024 3:30 PM EDT Appointment [facility] CT Scan [address] [place] [phone] 11/14/2024 1:30 PM EDT Office Visit Thoracic Surgery - [place] [address] [facility] [address] [place] [address] Annie Hall PA [address] [facility], [address] [place] [address] documented as of this encounter Procedures Procedure [...] K/mcL LAB HEMETOLOGY METHOD 05/07/2024 10:31 AM [facility] RBC 3.60(L) 3.80 - 4.80 M/mcL LAB HEMETOLOGY METHOD 05/07/2024 10:31 AM [facility] Hemoglobin 11.5 11.5 - 16.0 g/dL LAB HEMETOLOGY METHOD 05/07/2024 10:31 AM [facility] Hematocrit 38.7 35.0 - 47.0 % LAB HEMETOLOGY METHOD 05/07/2024 10:31 AM [facility] MCV 108.7(H) 79.0 - 98.0 FL LAB HEMETOLOGY METHOD 05/07/2024 10:31 AM [facility] MCH 32.3(H) 27.0 - 32.0 pcg LAB HEMETOLOGY METHOD 05/07/2024 10:31 AM [facility] MCHC 29.7(L) 32.0 - 37.0 g/dL LAB HEMETOLOGY METHOD 05/07/2024 10:31 AM [facility] RDW 18.4(H) 11.0 - 15.0 % LAB HEMETOLOGY METHOD 05/07/2024 10:31 AM [facility] Platelets 265 130 - 400 K/mcL LAB HEMETOLOGY METHOD 05/07/2024 10:31 AM [facility] MPV 11.4(H) 7.0 - 11.0 FL LAB HEMETOLOGY METHOD 05/07/2024 10:31 AM [facility] NRBC 0.0 <1.0 % LAB HEMETOLOGY METHOD 05/07/2024 10:31 AM [facility] NRBC Absolute 0.00 <0.10 K/mcL LAB HEMETOLOGY METHOD 05/07/2024 10:31 AM [facility] Neutrophils Relative 54.4 % LAB HEMETOLOGY METHOD 05/07/2024 10:31 AM [facility] Lymphocytes Relative 26.7 % LAB HEMETOLOGY METHOD 05/07/2024 10:31 AM [facility] Monocytes Relative 15.0 % LAB HEMETOLOGY METHOD 05/07/2024 10:31 AM [facility] Eosinophils Relative 0.0 % LAB HEMETOLOGY METHOD 05/07/2024 10:31 AM [facility] Basophils Relative 1.2 % LAB HEMETOLOGY METHOD 05/07/2024 10:31 AM [facility] Immature Granulocytes Relative 2.7 % LAB HEMETOLOGY METHOD 05/07/2024 10:31 AM [facility] Neutrophils Absolute 4.07 1.50 - 7.00 K/mcL LAB HEMETOLOGY METHOD 05/07/2024 10:31 AM [facility] Lymphocytes Absolute 2.00 1.00 - 5.00 K/mcL LAB HEMETOLOGY METHOD 05/07/2024 10:31 AM [facility] Monocytes Absolute 1.12(H) 0.20 - 1.00 K/mcL LAB HEMETOLOGY METHOD 05/07/2024 10:31 AM EST [facility] Eosinophils Absolute 0.00 0.00 - 0.50 K/[facility] LAB HEMETOLOGY METHOD 05/07/2024 10:31 AM EST [facility] Basophils Absolute 0.09 0.00 - 0.20 K/[facility] LAB HEMETOLOGY METHOD 05/07/2024 10:31 AM [facility] Immature Granulocytes Absolute 0.20(H) 0.00 - 0.03 K/[facility] LAB HEMETOLOGY METHOD 05/07/2024 10:31 AM [facility] Blood Venous blood specimen / Unknown Venipuncture / Unknown 05/07/2024 7:55 AM EST 05/07/2024 10:01 AM EST Ray Lee MD LAB BLOOD ORDERABLES Final Resul t Performing Organization Address [facility]/ZIP Co de Phone Number [facility] [address] [place] [address], [place] [phone] * Valproic acid level, total (05/07/2024 7:55 AM EST) Pathologist [facility] Valproic Acid, Total 71 50 - 100 mcg/mL LAB CHEMISTRY METHOD 05/07/2024 10:47 AM [facility] Blood Venous blood specimen / Unknown Venipuncture / Unknown 05/07/2024 7:55 AM EST 05/07/2024 10:01 AM EST Ray Lee MD LAB BLOOD ORDERABLES Final Resul t [facility] [address] [place] [address], [place] [phone] * (ABNORMAL) Comprehensive metabolic panel (05/07/2024 7:55 AM EST) Pathologist [facility] Sodium 137 133 - 145 mmol/L LAB CHEMISTRY METHOD 05/07/2024 10:52 AM EST [facility] Potassium 4.2 3.5 - 5.5 mmol/L LAB CHEMISTRY METHOD 05/07/2024 10:52 AM [facility] Chloride 103 96 - 110 mmol/L LAB CHEMISTRY METHOD 05/07/2024 10:52 AM [facility] CO2 23 21 - 32 mmol/L LAB CHEMISTRY METHOD 05/07/2024 10:52 AM [facility] Anion Gap 11 3 - 11 LAB CHEMISTRY METHOD 05/07/2024 10:52 AM [facility] Glucose 80 70 - 100 mg/dL LAB CHEMISTRY METHOD 05/07/2024 10:52 AM [facility] BUN 16 5 - 25 mg/dL LAB CHEMISTRY METHOD 05/07/2024 10:52 AM [facility] Creatinine 0.65 0.50 - 1.10 mg/dL LAB CHEMISTRY METHOD 05/07/2024 10:52 AM [facility] eGFR 101 >=60 mL/min/1. 73m2 LAB CHEMISTRY METHOD 05/07/2024 10:52 AM [facility] Comment:Calculation based on the??Chronic Kidney Disease Epidemiology Collaboration (CKD-EPI) equation refit??without adjustment for race. BUN/Creatinine Ratio 24.6 LAB CHEMISTRY METHOD 05/07/2024 10:52 AM [facility] Calcium 8.8 8.5 - 10.5 mg/dL LAB CHEMISTRY METHOD 05/07/2024 10:52 AM [facility] AST (SGOT) 25 10 - 42 unit/L LAB CHEMISTRY METHOD 05/07/2024 10:52 AM [facility] ALT (SGPT) 9(L) 10 - 60 unit/L LAB CHEMISTRY METHOD 05/07/2024 10:52 AM [facility] Alkaline Phosphatase 70 42 - 121 unit/L LAB CHEMISTRY METHOD 05/07/2024 10:52 AM [facility] Total Protein 6.0 6.0 - 8.0 g/dL LAB CHEMISTRY METHOD 05/07/2024 10:52 AM EST [facility] Albumin 2.7(L) 3.2 - 5.0 g/dL LAB CHEMISTRY METHOD 05/07/2024 10:52 AM EST [facility] Total Bilirubin 0.4 0.0 - 1.4 mg/dL LAB CHEMISTRY METHOD 05/07/2024 10:52 AM EST [facility] Blood Venous blood specimen / Unknown Venipuncture / Unknown 05/07/2024 7:55 AM EST 05/07/2024 10:01 AM EST us Ray Lee MD LAB BLOOD ORDERABLES Final Resul t [facility] [address] [place] [address], documented in this encounter Visit Diagnoses Diagnosis Essential (primary) hypertension Unspecified essential hypertension documented in this encounter Care Teams C D Stripper Relationship Specialty Start Date End Date Cassandra Oconnor MD [address] [place] [address] PCP - General 10/26/10 documented as of this encounter
--- OUTSIDE RECORDS SUMMARY | 2024-09-05 08:30 | XMS_ITS | Data Portability ---
Author Organization [facility], Main Office Address [address] [facility], [address] [place] [address] Care Team Providers Care Certified Scrub Tech Name Role Phone SUPRIYA GARCIA - 2ND FLOOR OTHER MICHELLE CASTANON Primary Care Provider [phone] Assessment Encounter Date Assessment Date Assessment LastModified by Organization Details LastModified Time 05/16/2024 05/16/2024 45 mins. spent on coordination of discharge Not available 05/16/2024 13:15:07 Plan of Treatment [...] Time Acute hypercapn ic respirato ry failure 278608939 Active 2019 Janna Triana [address] [facility], [address], [place], [address], [facility] 0 13:33:36 Bipolar disorder 76639621 Active 2019 and PTSD DAVID GARRIDO NP [address] [facility], [address], [place], [address], [facility] 4 11:40:12 Essential hypertens ion 51753849 Active 2019 Janna Triana [address] [facility], [address], [place], [address], [facility] 0 13:36:22 Gastroeso phageal reflux disease without esophagit is 738615888 Active 2019 [facility] Kamilah [address] [place] [address], [address], [place], [address], [facility] 0 13:37:17 Coronary arteriosc lerosis 06868140 Active 2019 Janna Kamilah [address] [facility], [address], [place], [address], [facility] 0 13:41:31 Chronic obstructi ve pulmonary disease 80131117 Active 2019 Janna Kamilah [address] [facility], [address], [place], [address], [facility] 0 13:43:44 Obstructi ve sleep apnea syndrome 09350681 Active 2019 Janna Kamilah [address] [place] [address], [address], [place], [address], [facility] 0 13:45:06 Chronic pain 20337961 Active 2019 back DAVID GARRIDO NP [address] [facility], [address], [place], [address], [facility] 4 11:40:25 Restless legs 20811401 Active 2019 Ray Lee MD [address] [facility], [address], [place], [address], [facility] 0 12:39:59 Malignant tumor of colon 471162151 Active 2023 s/p partial colectomy 2020 with ostomy DAVID GARRIDO NP [address] [facility], [address], [place], [address], [facility] 4 11:41:17 Atrial fibrillat ion 58592977 Active 2023 with RVR DAVID GARRIDO NP [address] [facility], [address], [place], [address], [facility] 4 11:41:27 Congestiv e heart failure 66486451 Active 2023 DAVID GARRIDO NP [address] [facility], [address], [place], [address], [facility] 4 11:41:33 Restricti ve lung disease 90880292 Active 2023 DAVID GARRIDO NP [address], [address], [place], [address], [facility] 4 11:41:42 Acute-on- chronic respirato ry failure 07744494 Active 2023 DAVID GARRIDO NP [address], [address], [place], [address], [facility] 4 11:41:59 SARS-CoV- 2 Active 2023 DAVID GARRIDO NP [address], [address], [place], [address], [facility] 4 11:42:21 Pericardi al effusion 639510547 Active 2023 DAVID GARRIDO NP [address], [address], [place], [address], [facility] 4 11:42:33 Hyperlipi demia 61196321 Active 2023 DAVID GARRIDO NP [address], [address], [place], [address], [facility] 4 11:42:47 Periphera l vascular disease 551115335 Active 2023 DAVID GARRIDO NP [address] [facility], [address], [place], [address], [facility] 4 11:42:59 Gastroint estinal hemorrhag e 51603035 Active 2023 DAVID GARRIDO NP [address] [facility], [address], [place], [address], [facility] 4 11:43:11 Malignant tumor of lung 457554223 Active 2023 s/p LLLobectom y 2020 DAVID GARRIDO NP [address], [address], [place], [address], [facility] 4 11:43:41 Obesity 722311356 Active 2023 DAVID GARRIDO NP [address], [address], [place], [address], [place] [facility] 4 11:44:00 Fibromyal yolis 120749251 Active 2023 DAVID GARRIDO NP [address], [address], [place], [address], [facility] 4 11:44:15 Asthenia 91334411 Active 2023 DAVID GARRIDO NP [address], [address], [place], [address], [facility] [employer] [facility] 4 11:44:32 Anemia 690841066 Active 2023 DAVID GARRIDO NP [address], [address], [place], [address], [facility] 4 11:46:22 Overactiv e urinary bladder 946500345 Active 2023 DAVID GARRIDO NP [address], [address], [place], [address], [facility] 4 11:47:19 Urinary tract infectiou s disease 89787642 Active 2023 DAVID GARRIDO NP [address], [address], [place], [address], [facility] 4 11:47:55 Acute COVID-19 7050660032 Active 2023 Brynn Allen MD [address], [address], [place], [address], [facility] 4 18:03:34 Problem Notes None recorded. Medical Equipment None Reported. Allergies Allergen ID Allergen Name Allergen Category Reaction Reaction Severity Criticality Documentation Date Start Date Code Code System Note Provider Name and Address Organization Details Recorded Time cyclobenz aprine medicatio n Not available Not available Not available 05/01/2020 22685 RxNorm Not Available Not Available Not Available fentanyl medicatio n Not available Not available Not available 05/01/2020 4337 RxNorm hallu cinat ions Not Available Not Available Not Available topiramat e medicatio n Not available Not available Not available 05/01/2020 95764 RxNorm Not Available Not Available Not Available venlafaxi ne medicatio n Not available Not available Not available 05/01/2020 75802 RxNorm rash Not Available Not Available Not Available 13705 Product containin g penicilli n (product) medicatio n Not available Not available Not available 05/01/2020 00167 8001 SNOMED rash Not Available Not Available Not Available 07653 Levaquin medicatio n Not available Not available Not available 04/30/2024 96687 2 RxNorm diarr hea Not Available Not Available Not Available 02615 Substance with sulfonami de structure and antibacte rial mechanism of action (substanc e) medicatio n Not available Not available Not available 04/30/2024 02861 8003 SNOMED diarr hea Not Available Not Available Not Available Vitals Date Recorded Heart rate Respiratory rate Body temperature Oxygen saturation Oxygen saturation in Arterial blood by Pulse oximetry Systolic blood pressure Diastolic blood pressure Provider Name and Address Organization Details Last Updated DateTime 4 87 /min 18 /min 97.8 [degF] 94 % 94 % 119 mm[Hg] 62 mm[Hg] DAVID GARRIDO NP [address] [facility] [address], [place], [address], [facility] 4 11:25:49 Date Recorded Body weight Heart rate Respiratory rate Body temperature Oxygen saturation Oxygen saturation in Arterial blood by Pulse oximetry Systolic blood pressure Diastolic blood pressure Provider Name and Address Organization Details Last Updated DateTime 4 94580.3 7 g 82 /min 18 /min 99 [degF] 96 % 96 % 134 mm[Hg] 72 mm[Hg] Nadiya Jorgensen NP [address] , [address], [place], [address], [facility] 4 10:49:28 Date Recorded Body height Body mass index (BMI) Body weight Heart rate Respiratory rate Body temperature Oxygen saturation Oxygen saturation in Arterial blood by Pulse oximetry Systolic blood pressure Diastolic blood pressure Provider Name and Address Organization Details Last Updated DateTime 4 165.1 cm 31.3 kg/m2 20537.3 7 g 80 /min 18 /min 97.6 [degF] 95 % 95 % 134 mm[Hg] 72 mm[Hg] Brynn Allen MD [address], [address], [place], [address], [facility] 4 16:16:16 Date Recorded Body height Heart rate Respiratory rate Body temperature Oxygen saturation Oxygen saturation in Arterial blood by Pulse oximetry Systolic blood pressure Diastolic blood pressure Provider Name and Address Organization Details Last Updated DateTime 4 165.1 cm 94 /min 17 /min 97.3 [degF] 95 % 95 % 122 mm[Hg] 72 mm[Hg] Nadiya Jorgensen NP [address] [facility], [address], [place], [address], [facility] 4 08:54:32 Date Recorded Body height Heart rate Respiratory rate Body temperature Oxygen saturation Oxygen saturation in Arterial blood by Pulse oximetry Systolic blood pressure Diastolic blood pressure Provider Name and Address Organization Details Last Updated DateTime 4 165.1 cm 80 /min 18 /min 98 [degF] 98 % 98 % 122 mm[Hg] 72 mm[Hg] DAVID GARRIDO NP [address], [place], [address], [facility] 4 12:45:16 Social History Question Answer Notes LastModified by Organizat ion Details LastModified Time Tobacco Smoking Status Former Smoker Janna Triana [address] [facility], [address], [place], [address], [facility] 05/01/2020 14:31:11 Do You Have An Advance Directive? Yes Information not available 05/07/2024 What Is Your Level Of Alcohol Consumption? None Information not available 04/30/2024 What Is Your Code Status? Full Code [email or web address] Information not available 04/30/2024 Do You Or Have You Ever Used E-cigarettes Or Vape? Former User Of Electronic Cigarettes [email or web address] Information not available 04/30/2024 Where Do You Live? Apartment Lives With , Supportive [email or web address] Information not available 04/30/2024 Do You Have A Medical Power Of Mold Swabber? Yes Has HCP [email or web address] Information not available 04/30/2024 What Was The Date Of Your Most Recent Tobacco Screening? 04/30/2024 [email or web address] Information not available 04/30/2024 Do You Have An Out Of Hospital DNR? No Information not available 05/07/2024 What Is Your Relationship Status? Information not available 05/07/2024 Do You Or Have You Ever Used Smokeless Tobacco? Never Used Smokeless Tobacco [email or web address] Information not available 05/01/2020 How Much Tobacco Do You Smoke? No [email or web address] Information not available 04/30/2024 Do You Use Any Illicit Or Recreational Drugs? No Information not available 04/30/2024 Has Tobacco Cessation Counseling Been Provided? No [email or web address] Information not available 04/30/2024 How Many Years Have You Smoked Tobacco? 40 [email or web address] Information not available 04/30/2024 Do You Or Have You Ever Used Any Other Forms Of Tobacco Or Nicotine? Yes [email or web address] Information not available 04/30/2024 Sex: Unknown Functional Status None recorded. Mental Status None recorded. Family History Relationship Description Onset Age of this Age Resolved Age Notes LastModified by Organization Details LastModified Time Father Hypertensive disorder [email or web address] Not available 2023 11:28:51 Mother Hypertensive disorder Not available 2023 11:28:51 Mother Malignant neoplasm of uterus Not available 2023 11:29:10 Mother Chronic obstructive pulmonary disease [email or web address] Not available 2023 11:29:26 Mother Heart disease [email or web address] Not available 2023 11:29:51 Mother Mental disorder [email or web address] Not available 2023 11:30:10 Notes:mother by suicide Medical History No medical history recorded. Gynecological HistoryNo gynecological history recorded. Obstetrics History GPAL:G 0 P 0 0 0 0 Immunizations Vaccine Type Date Status Note Provider Nam e and Address Organization Details Recorded Time Tdap 6 completed Tatyana Alaniz [facility] 05/01/2024 14:41:19 pneumococcal polysaccharide PPV23 0 completed Tatyana Alaniz [facility] 05/01/2024 14:41:33 influenza, unspecified formulation 2 completed Tatyana Alaniz [facility] 05/01/2024 14:41:49 SARS-COV-2 (COVID-19) vaccine, UNSPECIFIED 1 completed Tatyana Corbin [facility] 05/01/2024 14:42:06 SARS-COV-2 (COVID-19) vaccine, UNSPECIFIED 1 completed Tatyana roach [facility] 05/01/2024 14:42:13 Past Encounters Encounter ID Performer Location Encounter Start Date Encounter Closed Date Diagnosis/Indication Diagnosis SNOMED-CT Code Diagnosis ICD10 Code Diagnosis Note [id number] Janna Triana JAYSHREE AT [address] [address] 05/01/2020 13:20:20 05/12/2020 13:44:52 Acute hypercapnic respiratory failure 920439748 J96.02 see HPItreated with steroids, BiPAP and bronchodil ators in acute carefinish steroids heremed regimen modified.P t OT to eval and treat.vladislav candis Bipolar disorder 3212702 4 F31.9 see HPI? med regimen contributi ng to resp failuredep akote, clonazapam , and amitriptyl ine reduced in acute caremonito r sxHDBH prn Essential hypertension 16684484 I10 norvasc 10 mg qdmetoprol ol changed to carvedilol in acute care ASA 82 mg qdmonitor BPs Gastroesop hageal reflux disease without esophagitis 590370287 K21.9 on PPI. monitor for sx. Coronary arteriosclerosis 73875178 I25.10 on ASA. monitor Chronic ob structive pulmonary disease 75874680 J44.9 BREO qdpredniso ne tapersuppl emental T7itbeopn. Obstructiv e sleep apnea syndrome 91628148 G47.33 see HPI? contributi ng to resp [email or web address]/ 7 BIPAP in acute care tapered to nocturnal BiPAPconti nue CPAP at nighttime. modafinil started in acute caref/u pulmonolog y outpatient Dr Kaba Chronic pain 00685720 G8 9.29 percocet prn. monitor [id number] MD JAYSHREE Mahoney AT [address] [address] 05/06/2020 12:33:46 05/12/2020 13:42:27 Chronic obstructive pulmonary disease 05830727 J44.1 see abovetx with prednisone Obstructiv e sleep apnea syndrome 74670742 G47.33 new dxsee aboveconti nue positive airway pressureco ntinue support caref/u with pulmonary Acute hype rcapnic respiratory failure 229896746 J96.02 see HPIfelt that medication s and IVY were contributi ng factorsimp roved with BiPAP and O2wean as toleratedf /u with pulmonary in placemonit or respirator y status Bipolar disorder 6929008 4 F31.89 medication s adjusted in hospitalno w ondepakote 500 mg qdmonitor for sx controlpsy ch eval prn Essential hypertension 15295161 I10 now onnorvasc 10 mg qdcoreg 12.5 mg bidmonitor bptitrate prn Gastroesop hageal reflux disease without esophagitis 119429887 K21.9 omeprazole 20 mg qdmonitor for sx control Coronary arteriosclerosis 10203341 I25.10 on ASA. monitor Chronic pain 48039374 G8 9.29 question if oxycodone was contributi ng factor to respirator y failuremon itor on percocet Asthenia 82305916 R53.1 PT OT eval and treatmonit or fall riskambula sam with walker at baseline [id number] Janna Kamilah MARTELL AT [address] [address] 05/14/2020 12:57:20 05/20/2020 14:32:57 Acute hypercapnic respiratory failure 842954831 J96.02 resolved, ? medication s and IVY were contributi ng factorsimp roved with BiPAP and O2wean as toleratedf /u with pulmonary outpatient in place Chronic ob structive pulmonary disease 28498006 J44.1 see aboveBreo qd, Ellipta qd tx with prednisone f/u outpatient Obstructiv e sleep apnea syndrome 42553926 G47.33 new dxsee aboveprovi amilcar 100mg qdcontinue positive airway pressureco ntinue support caref/u with pulmonary outpatient Bipolar disorder 2380964 4 F31.89 medication s adjusted in hospitalno w onduloxeti ne 60 mg qdamitript yline 25 mg qddepakote 500 mg qdclonapin 0.5 mg BID prnf/u outpatient Essential hypertension 08256294 I10 now onnorvasc 10 mg qdcoreg 12.5 mg bidf/u outpatient Gastroesop hageal reflux disease without esophagitis 033925361 K21.9 omeprazole 20 mg qdf/u outpatient Coronary arteriosclerosis 97611279 I25.10 on ASA. f/u outpatient Chronic pain 28903013 G8 9.29 question if oxycodone was contributi ng factor to respirator y failurenow on percocet 10/325 QID prnf/u outpatient [id number] DAVID GARRIDO NP [address] [address] 04/30/2024 11:24:50 05/01/2024 10:36:48 Asthenia 51256080 R53.1 deconditio regina due to recent infection and chronic medical conditions fall x 2 wks agoPT OT eval and tx.Goal is to return home. Chronic pain 65275499 G8 9.29 with increased c/o back pain post fall 2 wks ago.ER work up unremarkab le.PT OT eval and tx.APAP prnultram 50 mg q8 hr prnMonitor and adjust med prnRefer to in house PMR for eval. and tx. Bipolar disorder 1151694 4 F31.89 also with PTSDalso dealing with the of her son in [place] home meds:VPA 500 mg q am, 1000 mg q pmDuloxeti ne 60 mg q hsClonazep am 1 mg bidMonitor mood, behaviorsS upportive carePsych eval prn Chronic ob structive pulmonary disease 11966913 J44.1 States uses O2 PRN at home, currently not wearing, will let us know when she needs it.Continu e home meds:Incru se ellipta 1 inh qdBreo ellipta 1 inh qdMonitor resp. status. Anemia 012885129 D64.9 ??H/O GI bleedCurre ntly on:Fe SO4 325 mg bidB12 1000 mcg qdWill continue meds and trend CBCHgb. 10.4 in ER Essential hypertension 43482980 I10 Continue home meds:Hydra lazine 50 mg tidCardize m CD 240 mg qdMetoprol ol XL 50 mg qdTrend VS, adjust prn Hyperlipidemia 14141288 E78.5 Continue home meds:atorv astatin 80 mg qdfenofibr ate 160 mg qdLipid panel prn Coronary arteriosclerosis 04303117 I25.10 Meds as aboveMonit or CP status Atrial fibrillation 4943 6004 I48.91 Continue home meds:Eliqu is 5 mg bidDiltiaz em CD 240 mg qdMetoprol ol XL 50 mg qdMonitor VS, CP status, bleeding risk (h/o GI bleed) Overactive urinary bladder 535889302 N32.81 ? retention Currently with polo, states [...] Emmanuel Jama hageal reflux disease without esophagitis 634608153 K21.9 with hx. GI BleedConti nue omeprazole 20 mg bidMonitor GI sx. Urinary tr act infectious disease 55062554 N39.0 ??cefpodox jocelyne on d/c med list, but suspect this is in error as UA in ER negative and pt. reports prior UTI addressed during previous hospitaliz ation. Malignant tumor of colon 642435757 C18.9 s/p partial colectomy 2020, now with ostomyAble to perform self care.Mali nue home bowel meds:Imodi um 2 mg q6 hr prnreglan 10 mg q6 hr prnlomotil bid prnlactulo se 15 ml qd prnzofran 8 mg qid prncolace 100 mg bid prn Headache 09919697 R51.9 ??On B2 400 mg qd - will continue Hypokalemia 73606792 E87 .6 On KCL 20 meq qdMonitor BMP [id number] Nadiya Jorgensen NP [address] [address] 05/06/2024 10:44:30 05/07/2024 09:37:52 Asthenia 11119394 R53.1 deconditio regina due to recent infection and chronic medical conditions fall x 2 wks agoPT OT eval and tx.Goal is to return home. Chronic pain 40707899 G8 9.29 with increased c/o back pain post fall 2 wks ago.ER work up unremarkab le.PT OT eval and tx.APAP prnultram 50 mg q8 hr prnMonitor and adjust med prnRefer to in house PMR for eval. and tx. Bipolar disorder 8432808 4 F31.89 also with PTSDalso dealing with the of her son in [place] home meds:VPA 500 mg q am, 1000 mg q pmDuloxeti ne 60 mg q hsClonazep am 1 mg bidMonitor mood, behaviorsS upportive carePsych eval prn Chronic ob structive pulmonary disease 57226382 J44.1 States uses O2 PRN at home, currently not wearing, will let us know when she needs it.Continu e home meds:Incru se ellipta 1 inh qdBreo ellipta 1 inh qdMonitor resp. status. Anemia 093060749 D64.9 labs normal on last check, will reorder todayH/O GI bleedCurre ntly on:Fe SO4 325 mg bidB12 1000 mcg qdWill continue meds and trend CBCHgb. 10.4 in ER Essential hypertension 82020315 I10 Continue home meds:Hydra lazine 50 mg tidCardize m CD 240 mg qdMetoprol ol XL 50 mg qdTrend VS, adjust prn Hyperlipidemia 21082495 E78.5 Continue home meds:atorv astatin 80 mg qdfenofibr ate 160 mg qdLipid panel prn Coronary arteriosclerosis 98569834 I25.10 Meds as aboveMonit or CP status Atrial fibrillation 4943 6004 I48.91 Continue home meds:Eliqu is 5 mg bidDiltiaz em CD 240 mg qdMetoprol ol XL 50 mg qdMonitor VS, CP status, bleeding risk (h/o GI bleed) Overactive urinary bladder 668603547 N32.81 ?? retentionf oley removed last week, and voiding wellUA in ER neg. Currently on:oxybuti juan josé 5 mg qdbethanec hol 50 mg bidCan replace polo if still retaining and refer to Dr. Benitez Gastroesop hageal reflux disease without esophagitis 065424404 K21.9 with hx. GI BleedConti nueomepraz ole 20 mg bidMonitor GI sx. Urinary tr act infectious disease 03649110 N39.0 ??will send another urinalysis with recent increased confusion per last [employer]IG[employer] ASSOC[employer]ATE MEDIA DIRECTOR:cefpodo bernie on d/c med list, but suspect this is in error as UA in ER negative and pt. reports prior UTI addressed during previous hospitaliz ation. Malignant tumor of colon 666189190 C18.9 cancer in remission per ER note and oncologys/ p partial colectomy 2020, now with ostomyAble to perform self care.Mali nue home bowel meds:Imodi um 2 mg q6 hr prnreglan 10 mg q6 hr prnlomotil bid prnlactulo se 15 ml qd prnzofran 8 mg qid prncolace 100 mg bid prn Hypokalemia 22443413 E87 .6 On KCL 20 meq qdMonitor BMP Acute COVID-19 894324099 8 U07.1 pt with new diagnosis of [...] or vitals daily Altered mental status 41 9922941 R41.82 pt with increased confusion from regular [...] agitationm onitor closely and redirect as able [id number] Brynn Allen MD [address] [address] 05/07/2024 16:10:17 05/08/2024 10:41:40 Acute COVID-19 8744287874 U07.1 Tested + on ppeti te still good, O2 sats good on RA.Continu e molnupirav ir 800 mg BID x 5 days and robitussin 10 m l po q 6 hours prn coughTo use dexamethas one, fluids, supplement al O2 prn for sxs.Contin ue to monitor O2 sats, temp, GI sxs and po intake. Altered mental status 41 4497378 R41.82 Likely due to Covid.Fair ly oriented right now, but apparently had some hallucinat ions earlier.Co ntinue clonazepam 1 mg q 8 hrs prn agitation in addition to usual 1 mg BID as noted below.Reor ient as needed.Mon itor. Asthenia 79321602 R53.1 PT/OT as above.Goal is to return home. Chronic pain 15375369 G8 9.29 Per fell 6 wks ago, but may have had another fall more recently.N o acute findings in ED.Needs PT/OT for strengthen ing, balance, gait training, safety and function.C ontinue fall precaution s.Monitor for safety.Con tinue APAP 650 mg q 4 hrs prn and tramadol 50 mg q 8 hrs prn.Monito r pain control and function.P M&R consult Bipolar disorder 9184434 4 F31.89 Mood good right now, but says she was very confused earlier, see above.Cont inue VPA 500 mg qam and 1000 mg qpm, duloxetine 60 mg qhs and clonazepam 1 mg BID and 1 mg q 8 hrs prn.Monito r mood and behaviorsP sych consult Chronic ob structive pulmonary disease 61578518 J44.1 Uses supplement al O2 prn at home, O2 sats have been good on RA since here.Curre ntly monitoring sats TID for covid surveillan ce and will use O2 prn to maintain sats >92%.Mali nue Incruse ellipta 62.5 mcg 1 puff qd and Breo ellipta 100/25 mcg1 puff qdMonitor resp. status. Anemia 018685104 D64.89 Hgb stable in 10-12 range.H/O GI bleedConti nue FeSO4 325 mg BID and B12 1000 mcg qdMonitor labs. Essential hypertension 66157837 I10 Good control since here.Mali nue hydralazin e 50 mg TID, diltiazem CD 240 mg qd, and metoprolol XL 50 mg qdMonitor BP and labs. Hyperlipidemia 41473705 E78.49 Continue atorvastat in 80 mg qd and fenofibrat e 160 mg qdMonitor labs as outpt. Coronary arteriosclerosis 12958301 I25.10 No recent sxs.Contin ue meds as above.Vladislav tor sxs Atrial fibrillation 4943 6004 I48.0 Rate in good control on meds as above.Cont inue eliquis 5 mg BID for AC.Monitor HR and bleeding risk. Overactive urinary bladder 798131599 N32.81 S/P retention during last hospitaliz ationNow voiding wellContin ue oxybutynin 5 mg qd and bethanecho l 50 mg BIDMonitor urinary function.U ro f/u prn. Gastroesop hageal reflux disease without esophagitis 232509816 K21.9 Hx of GI BleedConti nue omeprazole 20 mg BID.Monito r GI sxs. Urinary tr act infectious disease 26708056 N30.80 Reportedly U/A ordered yest due to increased confusion, but none sent yet.Suspec t confusion is due to Covid.But will remind nursing about obtaining urine. Malignant tumor of colon 838377087 C18.8 S/P partial colectomy 2020, with ostomy [...] BID. prnF/U with oncology as planned. Hypokalemia 63788245 E87 .6 Continue KCL 20 meq qdMonitor [facility] [id number] Nadiya Jorgensen, SADE [address] [place] [address] 05/13/2024 13:43:08 05/14/2024 13:30:16 Chronic pain 50963359 G89.29 lower back pain (Per fell 6 wks ago, possibly other falls)work up unremarkab le felt rehab appropriat epain controlled todaycontP T/OT for strengthen ing, balance, gait training, safety and function.f all precaution s.Monitor for safety.APA P 650 mg q 4 hrs prntramado l 50 mg q 8 hrs prn.Monito r pain control and function.P M&R consult Acute COVID-19 [id number] U07.1 Tested + on 05/05 now considered recovered with mild courseComp leted molnupirav ir 800 mg BID x 5 days and robitussin 10 m l po q 6 hours prn cough, and off isolationh allucinati ons seem resolved, likely r/t covid? with underlying dementiamo nitor for sequele Altered mental status 41 [id number] R41.82 Likely due to Covid.Fair ly oriented right now, but apparently had some hallucinat ions earlier.Co ntinue clonazepam 1 mg q 8 hrs prn agitation in addition to usual 1 mg BID as noted below.Reor ient as needed.Mon itor. Asthenia 73501854 R53.1 PT/OT as above.Goal is to return home. Bipolar disorder 4374797 4 F31.89 Mood good right now, but says she was very confused earlier, see above.Cont inue VPA 500 mg qam and 1000 mg qpm, duloxetine 60 mg qhs and clonazepam 1 mg BID and 1 mg q 8 hrs prn.Monito r mood and behaviorsP sych consult Chronic ob structive pulmonary disease 61518344 J44.1 Uses supplement al O2 prn at home, O2 sats have been good on RA since here.Aimee ntly monitoring sats TID for covid surveillan ce and will use O2 prn to maintain sats >92%.Mali nue Incruse ellipta 62.5 mcg 1 puff qd and Breo ellipta 100/25 mcg1 puff qdMonitor resp. status. Anemia 610454435 D64.89 Hgb stable in 10-12 range.H/O GI bleedConti nue FeSO4 325 mg BID and B12 1000 mcg qdMonitor labs. Essential hypertension 85255465 I10 Good control since here.Mali nue hydralazin e 50 mg TID, diltiazem CD 240 mg qd, and metoprolol XL 50 mg qdMonitor BP and labs. Hyperlipidemia 56830516 E78.49 Continue atorvastat in 80 mg qd and fenofibrat e 160 mg qdMonitor labs as outpt. Coronary arteriosclerosis 09769521 I25.10 No recent sxs.Contin ue meds as above.Vladislav tor sxs Atrial fibrillation 4943 6004 I48.0 Rate in good control on meds as above.Cont inue eliquis 5 mg BID for AC.Monitor HR and bleeding risk. Overactive urinary bladder 491214343 N32.81 S/P retention during last hospitaliz ationNow voiding wellContin ue oxybutynin 5 mg qd and bethanecho l 50 mg BIDMonitor urinary function.U ro f/u prn. Gastroesop hageal reflux disease without esophagitis 472079306 K21.9 Hx of GI BleedConti nue omeprazole 20 mg BID.Monito r GI sxs. Urinary tr act infectious disease 72494379 N30.80 Reportedly U/A ordered yest due to increased confusion, but none sent yet.Suspec t confusion is due to Covid.But will remind nursing about obtaining urine. Malignant tumor of colon 240843014 C18.8 S/P partial colectomy 2020, with ostomy [...] BID. prnF/U with oncology as planned. Hypokalemia 26989603 E87 .6 Continue KCL 20 meq qdMonitor BMP [id number] DAVID GARRIDO, SADE [facility] [address] [place] [address] 05/16/2024 12:44:25 05/17/2024 14:24:13 Asthenia 20787249 R53.1 deconditio regina due to recent infection and chronic medical conditions fall x 3 wks agoPT OT eval and tx. - has made some progressWi ll be going home tomorrow with support of family, VNA, GSSS. Chronic pain 68675655 G8 9.29 with increased c/o back pain post fall 3 wks ago.ER work up unremarkab le.PT OT eval and tx. - going home tomorrowAP AP prnultram 50 mg q8 hr prn - using here on occasionMo nitor and adjust med prnReferre d to in house PMR for eval. and tx., but no reports scanned into EMR, unsure if was seen. Bipolar disorder 4896271 4 F31.89 also with PTSDalso dealing with [...] eval prn Chronic ob structive pulmonary disease 91961155 J44.1 States uses O2 PRN at home, currently not wearing, will let us know when she needs it.Continu e:Incruse ellipta 1 inh qdAdvair 250/20 1 inh qdMonitor resp. status. Anemia 102387264 D64.9 ??H/O GI bleedCurre ntly on:Fe SO4 325 mg bidB12 1000 mcg qdWill continue meds and trend CBCHgb. 10.4 in ER, currently 12.5 Essential hypertension 29794308 I10 Continue home meds:Hydra lazine 50 mg tidCardize m CD 240 mg qdMetoprol ol XL 50 mg qdTrend VS, adjust prn Hyperlipidemia 29401364 E78.5 Continue home meds:atorv astatin 80 mg qdfenofibr ate 160 mg qdLipid panel prn Coronary arteriosclerosis 13084006 I25.10 Meds as aboveMonit or CP status Atrial fibrillation 4943 6004 I48.91 Continue home meds:Eliqu is 5 mg bidDiltiaz em CD 240 mg qdMetoprol ol XL 50 mg qdMonitor VS, CP status, bleeding risk (h/o GI bleed) Overactive urinary bladder 266998002 N32.81 ? retention Admitted with a polo, states placed during hospitaliz ation earlier in the month and was sent home with it. Reports also treated for UTI.UA in ER neg.Polo removed here, voiding well, no s/s retention reported by pt. or staff. Continue:o xybutinin 5 mg qdbethanec hol 50 mg bid Gastroesop hageal reflux disease without esophagitis 322172783 K21.9 with hx. GI BleedConti nue omeprazole 20 mg bidMonitor GI sx. as outpt. Urinary tr act infectious disease 18644782 N39.0 ??cefpodox jocelyne on d/c med list, but suspect this is in error as UA in ER negative and pt. reports prior UTI addressed during previous hospitaliz ation. Malignant tumor of colon 691655112 C18.9 s/p partial colectomy 2020, now with ostomyAble to perform self care.Mali nue home bowel meds:Imodi um 2 mg q6 hr prnreglan 10 mg q6 hr prnlomotil bid prnlactulo se 15 ml qd prnzofran 8 mg qid prncolace 100 mg bid prn Headache 56668284 R51.9 ??On B2 400 mg qd - will continue Hypokalemia 85685139 E87 .6 On KCL 20 meq qdMonitor BMP as outpt. Acute COVID-19 [id number] 8 U07.1 Tested + on 05/05 now considered recovered with mild courseComp leted molnupirav ir 800 mg BID x 5 dayshalluc inations seem resolved, likely r/t covid? with underlying dementiamo nitor as outpt. for sequelae Altered mental status 41 5946535 R41.82 Likely due to Covid.Fair ly oriented [...] Name 04/30/2024 2 [place] Claire Duplisea [id number] Claire Duplisea 04/30/2024 1 [place] Claire Duplisea [id number] Claire Duplisea 05/06/2024 2 [place] Claire Duplisea [id number] Claire Duplisea 05/06/2024 1 [place] Claire Duplisea [id number] Claire Duplisea 05/07/2024 2 [place] Claire Duplisea [id number] Claire Duplisea 05/07/2024 1 [place] [employer] Claire Duplisea [id number] Claire Duplisea 05/13/2024 2 [place] Claire Duplisea [id number] Claire Duplisea 05/13/2024 1 [place] Claire Duplisea [id number] Claire Duplisea 05/16/2024 2 [place] Claire Duplisea [id number] Claire Duplisea 05/16/2024 1 [place] [employer] [place] Claire Duplisea [id number] Claire Duplisea Notes Date Note Type Note Provider Name and Address Organization Details Recorded Time 04/30/2024 text/html Claire is seen to day for initial intake. She is a 58 yo lady, admitted today to [facility] from [facility] for continued care and rehab after an ER eval due to back pain. She presented to [facility] 04/28/24 with worsening back [...] failure, PTSD, CADMOLST: DAYNE GARRIDO NP [address] [facility], [address], [place], [address], [facility] [email or web address] 04/30/2024 13:45:18 05/06/2024 text/html Claire is seen [...] is a 58 yo lady, admitted to [facility] from [facility] on 04/30 for continued care and rehab after an ER eval due to back pain. Per summary: She initially presented to [facility] 04/28/24 with worsening back [...] HODGE: mod. fall riskMOLST: DNI Nadiya Jorgensen, DIGITAL ASSOCIATE MEDIA DIRECTOR [address] [facility], [address], [place], [address], [facility] [employer] 05/06/2024 12:02:31 05/07/2024 text/html This is a compli cated 58 yo woman who is here for rehab after an ED visit forworsening back pain. [facility] for AMS.Per [...] and removal of the catheter. [facility] for increasing back pain after a fall 2 wks [employer]. 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 Brynn Allen MD [address] [place] [address], [address], [place], [address], [employer] 05/07/2024 18:21:03 05/13/2024 text/html Claire is seen [...] a 58 yo lady, admitted today to [facility] from [facility] for continued care and rehab after an ER eval due to back pain and weakness and altered mental status. . She presented to [facility] on 04/28/24 with worsening back pain x 2 weeks after sustaining a fall at home. Work up unremarkable but would benefit from PT OT due to gross deconditioning. Details below. Since here at [facility] she has been working with therapy [...] room. of note:[facility] for AMS.Per [...] mod. fall riskMOLST: DNBrice Jorgensen, SADE [address] [facility], [address], [place], [address], [facility] [employer] 05/14/2024 09:27:31 05/16/2024 text/html Claire is seen to day for discharge.She is going home tomorrow with support of family and services. She is a 58 yo lady, admitted 04/30/24 to [facility] from [facility] for continued care and rehab after an ER eval due to back pain.She presented to [facility] 04/28/24 with worsening back [...] PTSD, CADMOLST: DNI DAVID GARRIDO NP [address] [facility], [address], [place], [address], [facility] [employer] 05/16/2024 13:17:01 OBGyn Episode No OBEpisode recorded.
--- OUTSIDE RECORDS SUMMARY | 2024-09-05 08:30 | XMS_ITS | Clinical Summary ---
Author Organization [employer] Address [address] [place] [address] [address] [place] [address] Care Team Providers Care Psychiatric Arnp Name Role Phone Unavailable Primary Care Provider Unavailabl e Encounters Date Type Department Care Team Description 08/06/2024 Orders Only [facility] [employer] [facility] Management [address] [place] [address] ProviderSilvia MD from Last 3 Months Social History Tobacco Use Types Packs/Day Years [...] W FDG Routine 08/02/2024 2:48 PM EST from Last 3 Months Results * PET/CT [facility] Skull Base To Mid-Thigh (08/02/2024 2:48 PM EST) Anatomical Region Laterality Modality Computed Tomogra phy us Historical Provider MD MENDOZA CT PROCEDURES Final R esult from Last 3 Months
--- OUTSIDE RECORDS SUMMARY | 2024-09-05 08:30 | XMS_ITS | Encounter Summary ---
Author Organization [employer] Address [address] [place] [address] [address] [place] [address] Care Team Providers Care Optical Engineering Technician Name Role Phone Unavailable Primary Care Provider Unavailabl e Reason for Visit * Reason Comments Med Refill Encounter Details Date Type Department Care Team (Late st Contact Info) Description 07/03/[address] [facility] [address] [place] [address] Cassandra Oconnor MD [address] [place] [address] Social History Tobacco Use Types Packs/Day Years [...]
--- NOTE | 2024-09-05 08:46 | ED.GENADULT ---
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 Ahumada, with last dose chemo last week, presenting to the ED complaining of suprapubic/lower abdominal pain radiating to right hip and low back x 1 week. Reports radiation of pain down RLE with associated paresthesias. Denies known injury, trauma or fall. Admits symptoms started shortly after receiving chemotherapy. Also reports urinary frequency and nausea. Denies fever, chills, incontinence/retention, weakness, vomiting Related Data Home Medications ?Medication ?Instructions ?Recorded ?Confirmed blood pressure monitor #1 ea 10/22/20 08/12/24 blood pressure test kit-large #1 ea 10/22/20 08/12/24 divalproex 500 mg tablet,extended 1,000 mg PO BEDTIME 04/15/24 09/06/24 release 24 hr metoprolol succinate 50 mg 50 mg PO DAILY 04/15/24 09/06/24 tablet,extended release 24 hr fluticasone furoate 100 1 ea inhalation DAILY 04/29/24 09/06/24 mcg-vilanterol 25 mcg/dose inhalation powder (Breo Ellipta) acetaminophen 500 mg tablet 500 mg PO Q12H PRN Pain 09/06/24 09/06/24 diltiazem HCl 240 mg 240 mg PO DAILY@1900 09/06/24 09/06/24 capsule,extended release 24 hr potassium chloride 20 mEq 20 meq PO DAILY 09/06/24 09/06/24 tablet,extended release(part/cryst) Previous Rx's ?Medication ?Instructions ?Recorded divalproex 500 mg tablet,extended 500 mg PO DAILY #90 tabs 02/01/23 release 24 hr umeclidinium 62.5 mcg/actuation 1 inh inhalation DAILY #30 ea 09/20/23 blister powder for inhalation (Incruse Ellipta) walker (Ultra-Light Rollator [facility]) #1 ea 09/29/23 Tub ledge vertical grab bar/ not #1 ea 03/06/24 suction bar. riboflavin (vitamin B2) 400 mg 400 mg PO DAILY 30 days #30 tabs 04/04/24 tablet metoclopramide HCl 10 mg tablet 10 mg PO Q6H PRN Nausea #30 tabs 04/08/24 nystatin 100,000 unit/gram topical 1 appl topical BID #30 grams 04/19/24 ointment heavy duty adjustable hand rail #1 ea 04/22/24 ferrous sulfate 325 mg (65 mg 325 mg PO BID #60 tabs 05/03/24 iron) tablet (FeroSul) fenofibrate 160 mg tablet 160 mg PO BEDTIME #90 tabs 06/20/24 apixaban 5 mg tablet (Eliquis) 5 mg PO BID 90 days #180 tabs 07/14/24 atorvastatin 80 mg tablet 80 mg PO BEDTIME #30 tabs 07/14/24 duloxetine 60 mg capsule,delayed 60 mg PO BEDTIME #30 caps 07/14/24 release hydralazine 50 mg tablet 50 mg PO TID #90 tabs 07/14/24 omeprazole 20 mg capsule,delayed 20 mg PO BID@0630,1630 90 days 07/14/24 release #180 caps cyanocobalamin (vitamin B-12) 1,000 mcg PO DAILY #90 tabs 08/16/24 1,000 mcg tablet (Vitamin B-12) clonazepam 1 mg tablet 1 mg PO BID 30 days #60 tabs 08/29/24 ondansetron 4 mg disintegrating 4 mg PO DAILY PRN nausea and 09/06/24 tablet vomiting 5 days #10 tabs oxycodone 5 mg tablet 5 mg PO Q8H PRN pain (scale score 09/06/24 4-6) #6 tabs Allergies Allergy/AdvReac Type Severity Reaction Status Date / Time Penicillins Allergy Mild Rash Verified 09/05/24 07:57 venlafaxine [From Effexor] Allergy Mild Rash Verified 09/05/24 07:57 cyclobenzaprine Allergy Unknown Unknown Verified 09/05/24 07:57 [Cyclobenzaprine] topiramate [From Topamax] Allergy Unknown Unknown Verified 09/05/24 07:57 levofloxacin [From Levaquin] AdvReac Severe Diarrhea Verified 09/05/24 07:57 Sulfa (Sulfonamide AdvReac Severe Diarrhea Verified 09/05/24 07:57 Antibiotics) fentanyl [FENTANYL] AdvReac Intermediate Hallucinati Verified 09/05/24 07:57 ons tramadol AdvReac Intermediate Hallucinati Verified 09/05/24 07:57 ons Review of Systems Review of Systems: Yes all other systems are reviewed and are negative Constitutional: Constitutional: Reports as per HPI Neurologic: Denies Sensory deficit (Neuro) [facility] Past Medical History Attestation statement: The following information was validated with the patient. Source: old records reviewed Medical History Acute on chronic diastolic CHF (congestive heart failure) CHF exacerbation Respiratory failure with hypoxia and hypercapnia Chronic confusion Depression Smoker Chronic back pain Colostomy in place (~2020) Personal history of nicotine dependence Polysubstance (including opioids) dependence, binge pattern Atrial fibrillation with rapid ventricular response Congestive heart failure Restrictive lung disease COPD (chronic obstructive pulmonary disease) No natural teeth COVID-19 vaccine series completed History of COVID-19 (~04/2020) Oxygen dependent Pericardial effusion Other and unspecified hyperlipidemia Essential hypertension Peripheral vascular disease Preoperative cardiovascular examination Bilateral pneumonia Adenocarcinoma of sigmoid colon (~2020) Hypernatremia GI bleed UTI (urinary tract infection) Pleural effusion, left Colon cancer (~2020) IVY (obstructive sleep apnea) Cancer of lower lobe of left lung (~2020) GERD (gastroesophageal reflux disease) Acute and chronic respiratory failure Lung cancer Obesity Hypoventilation associated with obesity Obesity hypoventilation syndrome Respiratory failure with hypoxia and hypercapnia Rotator cuff strain Hypoxia Pneumonia Restless legs syndrome (RLS) Sleep disorder Bipolar disorder (~2009) Back pain with history of spinal surgery Renal failure Fibromyalgia Depression High cholesterol PTSD (post-traumatic stress disorder) CAD (coronary artery disease) HTN (hypertension) Surgical History History of partial colectomy (~12/2020) History of cardiac cath (~2010) History of hysterectomy (~1990) History of cholecystectomy History of appendectomy (~1982) History of colonoscopy (~08/2020) History of lobectomy of lung (~08/2020) History of esophagogastroduodenoscopy (EGD) History of bunionectomy (~1977) History of back surgery Family History Family History Maternal Aunt Breast cancer Stroke COPD (chronic obstructive pulmonary disease) Maternal Aunt Breast cancer COPD (chronic obstructive pulmonary disease) Mother Uterine cancer COPD (chronic obstructive pulmonary disease) HTN (hypertension) Heart disease Mental health disorder Maternal Uncle Stroke Paternal Grandmother Heart attack Parkinsons disease Sister Diabetes IBS (irritable bowel syndrome) Son HTN (hypertension) Substance use disorder Daughter HTN (hypertension) Father HTN (hypertension) Parkinsons disease Brother Heart disease Family/Other Mental health disorder Social History Social History Household Members: Spouse Housing: Apartment Are you a primary senior care manager to a significant other at home: No Do you presently have visiting nurse or other home services: No Alcohol intake: never Comment: sitter at bedside Patient Tobacco Use Status: Former Tobacco user Tobacco use type: Cigarette Cigarettes Per Day: 4 Years Smoked: 40 e-Cigarette/Vaping Use: Former Use Second Hand Smoke Exposure: No Advance Directives Date on File: 10/05/22 service: No Current occupational status: unemployed and disabled Cognitive needs: Yes (walker ) Hearing needs: No Vision needs: No Physical Exam ED Vital Signs: Vital Signs - 24 hr 09/05/24 16:17 09/05/24 20:36 09/05/24 20:38 Temperature 98.9 F 98.4 F Pulse Rate 82 85 Respiratory Rate 16 16 15 Blood Pressure 131/62 142/54 H Pulse Oximetry 97 97 Oxygen Delivery Method Nasal Cannula Nasal Cannula Oxygen Flow Rate 1 2 09/06/24 03:31 09/06/24 08:38 09/06/24 10:58 Temperature 98.4 F 98.3 F Pulse Rate 68 68 92 Respiratory Rate 14 18 Blood Pressure 147/68 H 147/68 H 189/66 H Pulse Oximetry 97 97 94 Oxygen Delivery Method Nasal Cannula Room Air Oxygen Flow Rate 2 BMI result Body Mass Index 31.8 Const General: cooperative, healthy appearing and no acute distress Orientation/consciousness: patient oriented x3 Limitations: no limitations HENMT Head: Yes normal to inspection and Yes atraumatic Ears: hearing grossly normal bilaterally General nose exam: Normal external nose present Face and sinus: Yes normal facial exam Eyes General: appearance normal, both eyes and all related structures EOM: EOMs intact bilaterally Neck Neck: Yes normal visual inspection and Yes no meningeal signs Resp Effort & Inspection: normal respiratory effort and no respiratory distress Auscultation: clear to auscultation bilaterally Cardio Rate: regular rate Heart sounds: S1 normal heart sound present and S2 normal heart sound present GI Inspection: Yes normal to inspection Palpation (GI): Soft to palpation, nontender, no guarding and not rigid General: Yes no CVA tenderness Back/Spine/Pelvis Other: No midline cervical/thoracic/lumbar spinous tenderness/step-off or deformity. + right lower lumbar reproducible paraspinal/ MSK tenderness to palpation with right buttock tenderness. No erythema / warmth or rash Back: no CVA tenderness Skin Rashes: no rashes Wounds: no wounds Neuro Other: Strength intact throughout. No saddle anesthesia. Sensation intact to light touch. Neurovascular intact distally Ambulating with cane General: patient oriented x3, tone normal, moves all extremities and no meningeal signs Cranial nerves: Yes CN's II-XII intact bilaterally Gait exam (Neuro): Normal gait present Motor exam (neuro): 5/5 motor strength present throughout Sensory Exam: No Sensory deficit (Neuro) Extrem General: Yes normal to inspection and Yes no pedal edema Course Course Course Narrative: -1347-- mild leukopenia. H/H around patient's baseline. Magnesium low at 1.3 > 2 g IV repletion ordered CT abdomen pelvis w IV con IMPRESSION: 1. 2.9 cm soft tissue density with posterior fracture of the urinary bladder suspicious for bladder mass. 2. Status post posterior fusion of L4-S1 with pedicle screws. Degenerative disc disease. 4. Severe atherosclerotic calcification of the abdominal aorta. CT hip RT wo IV con IMPRESSION: 1. No evidence of fracture of the left hip. No definite evidence of metastatic disease. If this remains a clinical concern, MRI is recommended. 2. 3.0 cm soft tissue mass at the posterior aspect of the urinary bladder which may represent the patient's known bladder carcinoma. > We will consult Oncology, Dr. Coreas > if pain controlled can be discharged. -1540-- Waiting for urine sample to rule out infection. Patient reports continued pain, feels unsafe for discharge at this time. Lives at home with , has no VNA services. Plan for PT/ case management consult and pain control. -1621-- UA not infected. Physician observation initiated as patient needs more time to be evaluated by PT/case management -1800--ED care transferred to JUAN Miranda PT/case management Reevaluation(s) Reevaluation #1: Time: 08:25 Date: 09/06/24 Provider: JUAN May Patient in physician observation for case management needs. No acute events reported overnight.? No current issues or complaints. VS stable. Patient is pending placement at facility/pending PT/CM eval. Will continue to monitor. Reevaluation #2: Time: 11:08 Date: 09/06/24 Provider: JUAN May Physician observation ended at 1110. Patient has been evaluated by physical therapy and followed by case management. she is agreeable to be discharged home with VNA services. her will be transporting her home today. a prescription of zofran for nausea sent to pharmacy. she has also been medicated with both dilaudid and oxycodone while in ED. will send home with two day prescription of oxycodone. advised to f/u with outpatient providers for further management. take home narcan provided. Patient has remained stable throughout ED visit today. Discussed worrisome signs and symptoms and when to return to the ED. All questions answered at this time. Patient is agreeable with disposition and stable for discharge. Medications Administered Generic Name Dose Route Start Last Admin Trade Name Freq PRN Reason Stop Dose Admin Acetaminophen 650 mg 09/05/24 20:50 09/05/24 21:55 Acetaminophen 325 Mg Tablet PO 650 mg Q6H PRN Administration Pain, Mild 1-3,fever,headache Apixaban 5 mg 09/06/24 10:09/06/24 10:29 Apixaban 5 Mg Tablet PO 5 mg BID LONG Administration Clonazepam 1 mg 09/06/24 10:09/06/24 10:29 Clonazepam 1 Mg Tablet PO 1 mg BID LONG Administration Cyanocobalamin 1,000 mcg 09/06/24 10:09/06/24 10:29 Cyanocobalamin (Vitamin B-12) 1,000 Mcg Tablet PO 1,000 mcg DAILY LONG Administration Divalproex Sodium 500 mg 09/06/24 10:09/06/24 10:29 Divalproex Sodium Er 500 Mg Tab.Er.24h PO 500 mg DAILY LONG Administration Fluticasone/Vilanterol 1 puff 09/06/24 10:15 09/06/24 11:20 Fluticasone/Vilanterol / Blst.W.Dev INHALE Not Given RDAILY [facility] Hydralazine HCl 50 mg 09/06/24 10:15 09/06/24 10:28 Hydralazine Hcl 50 Mg Tablet PO 50 mg TID LONG Administration Protocol Metoprolol Succinate 50 mg 09/06/24 10:15 09/06/24 10:28 Metoprolol Succinate Er 50 Mg Tab.Er.24h PO 50 mg DAILY LONG Administration Protocol Omeprazole 20 mg 09/06/24 10:15 09/06/24 10:29 Omeprazole 20 Mg Capsule.Dr PO 20 mg BID@0630,1630 LONG Administration Oxycodone HCl 5 mg 09/06/24 03:25 09/06/24 09:05 Oxycodone Hcl Immed Release 5 Mg Tablet PO 5 mg Q6H PRN Administration Pain, Severe (Pain Scale 7-10) Potassium Chloride 20 meq 09/06/24 10:15 09/06/24 10:29 Potassium Chloride Er 20 Meq Tab.Er.Prt PO 20 meq DAILY LONG Administration Discontinued Medications Generic Name Dose Route Start Last Admin Trade Name Freq PRN Reason Stop Dose Admin Cyclobenzaprine HCl 10 mg 09/05/24 10:46 09/05/24 11:05 Cyclobenzaprine Hcl 10 Mg Tablet PO 09/05/24 10:47 10 mg ONCE ONE Administration Hydromorphone HCl 1 mg 09/05/24 12:49 09/05/24 13:39 Hydromorphone Hcl 1 Mg/Ml Syringe IVPUSH 09/05/24 12:50 1 mg ONCE ONE Administration Protocol Hydromorphone HCl 2 mg 09/05/24 19:20 09/05/24 19:36 Hydromorphone Hcl 2 Mg Tablet PO 09/05/24 19:21 2 mg ONCE ONE Administration Magnesium Sulfate 2 gm in 50 mls @ 25 mls/hr 09/05/24 10:38 09/05/24 16:33 Magnesium Sulfate/H2o IV 09/05/24 12:37 Infused ONCE ONE Infusion Iohexol 100 ml 09/05/24 12:04 09/05/24 12:05 Iohexol 350 Mg/Ml 100 Ml Infus..Btl IV 09/05/24 12:05 85 ml ONCE ONE Administration Lidocaine 1 patch 09/05/24 15:39 09/05/24 16:14 Lidocaine 4 % Patch Adh..Patch TRANSDERMA 09/05/24 15:40 1 patch ONCE ONE Administration Protocol Morphine Sulfate 2 mg 09/05/24 09:03 09/05/24 09:42 Morphine Sulfate 2 Mg/Ml Cartridge IVPUSH 09/05/24 09:04 2 mg ONCE ONE Administration Protocol Morphine Sulfate 4 mg 09/05/24 10:46 09/05/24 11:05 Morphine Sulfate 4 Mg/Ml Cartridge IVPUSH 09/05/24 10:47 4 mg ONCE ONE Administration Protocol Non-Formulary Medication 400 mg 09/06/24 10:15 09/06/24 10:30 Riboflavin (Vitamin B2) PO Not Given DAILY LONG Ondansetron HCl 4 mg 09/05/24 09:01 09/05/24 09:42 Ondansetron Hcl 4 Mg/2 Ml Vial IVPUSH 09/05/24 09:02 4 mg ONCE ONE Administration Oxycodone HCl 5 mg 09/05/24 15:38 09/05/24 16:14 Oxycodone Hcl Immed Release 5 Mg Tablet PO 09/05/24 15:39 5 mg ONCE ONE Administration Medical Decision Making Medical Decision Making MDM Narrative: 59-year-old female with a past medical history of CHF, depression, AFib on Eliquis, restrictive lung disease, COPD, PVD, HLD, CAD, PTSD, lung CA, 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 Ahumada, with last dose chemo last week, presenting to the ED complaining of suprapubic/lower abdominal pain radiating to right hip and low back x 1 week. on exam tachycardic likely from pain, NAD/nontoxic appearing, appears uncomfortable, no midline spinous tenderness throughout or red flag symptoms. Reproducible tenderness as elicited above. No saddle anesthesia. Abdomen is soft and nontender. Concern for MSK pain vs sciatica vs Mets vs UTI vs chemo s/e Plan: labs, UA, CT's, pain control, re-evaluate Please refer to course for remaining clinical decision making, interpretation of labs/imaging results, and discussions with consultants and/or family members. Differential Diagnosis Differential Diagnoses: The differential diagnosis associated with the presentation includes As above Admission/Observation Consideration of admission/observation: Escalation of care including admission/observation considered Consult Healthcare Provider Management of the patient was discussed with: [employer] Salesperson Lab Data MDM Lab Attestation statement: I reviewed the patient's lab results. 09/05/24 09:47 09/05/24 09:47 Labs: Lab Results 09/05/24 09/05/24 09/05/24 Range/Units 09:47 15:40 16:15 WBC 4.3 L (4.8-10.8) X10*3/uL RBC 3.23 L (4.20-5.50) X10*6/uL Hgb 10.3 L (12.0-16.0) g/dl Hct 30.4 L (37.0-47.0) % MCV 94.1 (80.0-98.0) fL MCH 31.9 (27.0-33.0) pg MCHC 33.9 (31.0-35.0) g/dl RDW 15.1 (11.0-16.0) % Plt Count 198 (160-400) X10*3/uL MPV 10.2 (9.4-12.3) fL Immature Gran % (Auto) 0.9 H (0.0-0.4) % Neut % (Auto) 41.5 L (45-73) % Lymph % (Auto) 45.7 H (20-40) % Delta % (Auto) 8.9 (2-11) % Eos % (Auto) 2.3 (0-4) % Baso % (Auto) 0.7 (0-2) % Lymph # (Auto) 2.0 (1.2-4.9) X10*3/uL Delta # (Auto) 0.4 (0.1-1.2) X10*3/uL Eos # (Auto) 0.1 (0.0-0.4) X10*3/uL Baso # (Auto) 0.0 (0.0-0.2) X10*3/uL Abs Immat Gran (auto) 0.04 H (0.00-0.03) X10*3/uL Absolute Neuts (auto) 1.8 L (2.0-8.3) x10*3/uL Absolute Nucleated RBC 0.000 (0.0-0.012) X10*3/uL Nucleated RBC % (auto) 0.0 (0.0-0.2) /100WBC Sodium 144 (135-145) mmol/L Potassium 3.7 (3.3-5.1) mmol/L Chloride 107 (96-108) mmol/L Carbon Dioxide 28 (22-29) mmol/L Anion Gap 13 (12-20) BUN 10 (9-16) mg/dL Creatinine 0.54 (0.5-1.4) mg/dL Estim Creat Clear Calc 114.6 Estimated GFR > 60 Random Glucose 76 (60-115) mg/dL Calcium 8.5 (8.4-10.2) mg/dL Magnesium 1.3 L* (1.6-2.6) mg/dL Total Bilirubin 0.3 (0.0-1.0) mg/dL Direct Bilirubin 0.1 (0.0-0.5) mg/dL AST 21 (5-31) U/L ALT < 6 (0-31) U/L Alkaline Phosphatase 96 (39-117) U/L Total Protein 5.9 L (6.5-8.0) g/dL Albumin 3.4 L (3.5-5.0) g/dL Urine Color Yellow Urine Appearance Clear Urine pH 7.5 (5.0-9.0) Ur Specific [place] >= 1.030 H (1.005-1.025) Urine Protein Negative (Neg-Trace) mg/dL Urine Glucose (UA) Negative (Negative) mg/dL Urine Ketones Negative (Negative) mg/dL Urine Blood Trace H (Negative) Urine Nitrite Negative (Negative) Ur Leukocyte Esterase Negative (Negative) Urine RBC 3-5 H (0-2) /HPF Urine WBC 0-5 (0-5) /HPF Ur Squamous Epith Cells 0-2 (0-2) /HPF Urine Bacteria None Seen (None Seen) Hyaline Casts 0-2 (0-2) /LPF Influenza Type A (PCR) NEGATIVE (Negative) Influenza Type B (PCR) NEGATIVE (Negative) RSV RNA Qual (PCR) NEGATIVE (Negative) SARS-CoV-2 RNA (RT-PCR) NEGATIVE (Negative) Independent Interpretation I performed an independent interpretation of an: CT Scan Radiology Impression Discussion of test interpretation with radiology: I have reviewed the radiologist's reading. External Record Review External record reviewed: Inpatient record, Office record, Outpatient record, Prior outpatient labs, Prior outpatient radiology, Primary care record and Outside ED record Tests considered The following testing was considered but not selected: As above Prescription Management I considered prescription management with: Pain Medication Chronic Conditions Patient?s care impacted by: Cancer Social Determinants Patient?s care significantly limited by Social Determinants of Health including: Other Social Determinant of Health Discharge Plan Discharge Clinical Impression: Bladder mass, Low back pain, Hip pain, right Patient Disposition: Home, Self-Care Instructions: Bladder Biopsy (DC) Additional Instructions: Your blood work showed low magnesium levels. You were provided with magnesium in the ED today. Please follow up with outpatient providers for repeat blood work in 1-2 weeks to ensure these levels stay within normal limits. You were evaluated by physical therapy. Case management has arranged home services (visiting nursing assistance). Zofran has been sent to your pharmacy for nausea. I recommend you take 600mg ibuprofen every 6 hours or Tylenol 650mg every 6 hours as needed for pain. If needed, you can alternate these medications so that you take one medication every 3 hours. For example, at noon take ibuprofen, then at 3pm take Tylenol, then at 6pm take ibuprofen. I am sending oxycodone, a controlled pain medication, to your pharmacy for you to take for breakthrough pain control. Please use this with caution as opioid pain medications have addictive properties. I have also provided you with Narcan as accidental overdoses on Oxycodone can occur. Opioid pain medications can often cause constipation. I recommend taking this with an over the counter laxative and/or stool softener to help move your bowels. Follow up with your outpatient providers/ oncologist. Return with new or worsening symptoms. In the case of an emergency call 911. Prescriptions: New ondansetron 4 mg tablet,disintegrating 4 mg PO DAILY PRN (Reason: nausea and vomiting) 5 Days Qty: 10 0RF oxycodone 5 mg tablet 5 mg PO Q8H PRN (Reason: pain (scale score 4-6)) Qty: 6 0RF Rx Instructions: Partial Fill upon patient request. No Action divalproex 500 mg tablet extended release 24 hr 500 mg PO DAILY Qty: 90 1RF Incruse Ellipta 62.5 mcg/actuation blister with device 1 inh inhalation DAILY Qty: 30 11RF (DME) Ultra-Light Rollator Misc See Rx Instructions .Route Qty: 1 0RF Rx Instructions: As directed (DME) Tub ledge vertical grab bar/ not suction bar. See Rx Instructions .Route .MEDSUPPLY Qty: 1 0RF Rx Instructions: As directed riboflavin (vitamin B2) 400 mg tablet 400 mg PO DAILY 30 Days Qty: 30 6RF metoclopramide HCl 10 mg Tablet 10 mg PO Q6H PRN (Reason: Nausea) Qty: 30 1RF (DME) heavy duty adjustable hand rail See Rx Instructions .Route .MEDSUPPLY Qty: 1 0RF Rx Instructions: As directed ferrous sulfate [FeroSul] 325 mg (65 mg iron) tablet 325 mg PO BID Qty: 60 3RF fenofibrate 160 mg tablet 160 mg PO BEDTIME Qty: 90 0RF omeprazole 20 mg capsule,delayed release(DR/EC) 20 mg PO BID@0630,1630 90 Days Qty: 180 2RF duloxetine 60 mg capsule,delayed release(DR/EC) 60 mg PO BEDTIME Qty: 30 2RF atorvastatin 80 mg tablet 80 mg PO BEDTIME Qty: 30 2RF hydralazine 50 mg tablet 50 mg PO TID Qty: 90 2RF Eliquis 5 mg tablet 5 mg PO BID 90 Days Qty: 180 2RF cyanocobalamin (vitamin B-12) [Vitamin B-12] 1,000 mcg tablet 1,000 mcg PO DAILY Qty: 90 0RF clonazepam 1 mg tablet 1 mg PO BID 30 Days Qty: 60 0RF potassium chloride 20 mEq tablet,ER particles/crystals 20 meq PO DAILY acetaminophen 500 mg Tablet 500 mg PO Q12H PRN (Reason: Pain) diltiazem HCl 240 mg capsule,extended release 24hr 240 mg PO DAILY@1900 divalproex 500 mg tablet extended release 24 hr 1,000 mg PO BEDTIME metoprolol succinate 50 mg tablet extended release 24 hr 50 mg PO DAILY nystatin 100,000 unit/gram Ointment 1 appl topical BID Qty: 30 0RF Protocol: Apply to: Apply to: abd folds fluticasone furoate-vilanterol [Breo Ellipta] 100-25 mcg/dose blister with device 1 ea inhalation DAILY (DME) blood pressure test kit-large Kit See Rx Instructions .ROUTE DIRECTED Qty: 1 Rx Instructions: As directed (DME) blood pressure monitor Kit See Rx Instructions .ROUTE .MEDSUPPLY Qty: 1 Rx Instructions: As directed Referrals: [facility] Oncology/Hematology [Provider Group] Lisa OLIVARES [Outside] Chelsea Miles MD [Primary Care Provider] - 1 Week Print Language: [place]
[2024-09-05] MEDS: ondansetron HCL 4 MG/2 ML VIAL IVPUSH (09:42)
[2024-09-05] MEDS: Morphine Sulfate 2 MG/ML CARTRIDGE IVPUSH (09:42)
[2024-09-05 09:53] LABS: MANUAL DIFF FLAG NO
[2024-09-05 09:58] LABS: Basophils Percent Auto 0.7 % (0-2); Eosinophils Absolute Auto 0.1 X10*3/uL (0.0-0.4); Eosinophils Percent Auto 2.3 % (0-4); Hematocrit 30.4 % (37.0-47.0); Hemoglobin 10.3 g/dl (12.0-16.0); Imm Gran Abs Auto 0.04 X10*3/uL (0.00-0.03); Imm Gran Pct Auto 0.9 % (0.0-0.4); Lymphocytes Percent Auto 45.7 % (20-40); Mean Corpuscular HGB Conc 33.9 g/dl (31.0-35.0); Mean Corpuscular Hemoglobin 31.9 pg (27.0-33.0); Mean Corpuscular Volume 94.1 fL (80.0-98.0); Mean Platelet Volume 10.2 fL (9.4-12.3); Monocytes Absolute Auto 0.4 X10*3/uL (0.1-1.2); Monocytes Percent Auto 8.9 % (2-11); Neutrophils Absolute Auto 1.8 x10*3/uL (2.0-8.3); Neutrophils Percent Auto 41.5 % (45-73); Platelet Count 198 X10*3/uL (160-400); Red Blood Count 3.23 X10*6/uL (4.20-5.50); Red Cell Distribution Width 15.1 % (11.0-16.0); White Blood Count 4.3 X10*3/uL (4.8-10.8)
[2024-09-05 10:38] LABS: Alanine Aminotransferase < 6 U/L (0-31); Albumin Level 3.4 g/dL (3.5-5.0); Alkaline Phosphatase 96 U/L (39-117); Anion Gap 13 (12-20); Aspartate Amino Transferase 21 U/L (5-31); Bilirubin Direct 0.1 mg/dL (0.0-0.5); Bilirubin Total 0.3 mg/dL (0.0-1.0); Blood Urea Nitrogen 10 mg/dL (9-16); Calcium 8.5 mg/dL (8.4-10.2); Carbon Dioxide 28 mmol/L (22-29); Chloride 107 mmol/L (96-108); Creatinine Clr Calc Pharmacy 114.6; Estimated Glomerular Filt Rate > 60; Glucose Random 76 mg/dL (60-115); Magnesium 1.3 mg/dL (1.6-2.6); Potassium 3.7 mmol/L (3.3-5.1); Sodium 144 mmol/L (135-145); Total Protein 5.9 g/dL (6.5-8.0)
[2024-09-05] MEDS: Magnesium Sulfate/H2O 2 GM/50 ML PIGGYBACK IV (10:41)
[2024-09-05] MEDS: Cyclobenzaprine HCl 10 MG TABLET PO (11:05)
[2024-09-05] MEDS: Morphine Sulfate 4 MG/ML CARTRIDGE IVPUSH (11:05)
[2024-09-05] MEDS: iohexoL 350 MG/ML 100 ML INFUS..BTL IV (12:05)
[2024-09-05] MEDS: HYDROmorphone HCl 1 MG/ML SYRINGE IVPUSH (13:39)
[2024-09-05 15:50] LABS: Appearance Urine Clear; Color Urine Yellow; Glucose Urine UA Negative (Negative); Leukocyte Esterase Urine Negative (Negative); Nitrite Urine Negative (Negative); PH 7.5 (5.0-9.0); Specific Gravity - Urine >= 1.030 (1.005-1.025); UMIC TRIGGER UACC YES; Urine Blood Trace (Negative); Urine Ketones Negative (Negative); Urine Protein Negative (Neg-Trace)
[2024-09-05 15:52] LABS: Bacteria Urine None Seen (None Seen); Hyaline Casts Urine 0-2 /LPF (0-2); Squamous Epithelial Cell Urine 0-2 /HPF (0-2); WBC Urine 0-5 /HPF (0-5)
[2024-09-05] MEDS: Lidocaine 4 % Patch ADH..PATCH 1 PATCH TRANSDERMA (16:14)
[2024-09-05] MEDS: oxyCODONE HCl Immed Release 5 MG TABLET PO (16:14)
[2024-09-05 16:17] VITALS: BP 131/62; PULSE 82; RESP 16; TEMP 37.2; O2SAT 97
[2024-09-05 16:55] LABS: Influenza A PCR NEGATIVE (Negative); Influenza B PCR NEGATIVE (Negative); Resp Syncy Virus RNA Qual PCR NEGATIVE (Negative); SARS COV2 PCR INHOUSE NEGATIVE (Negative)
--- NOTE | 2024-09-05 17:12 | MHC.CM.ED ---
CM met with patient and /HCP Allen ([phone]). HCP on file. MOLST on file. Yes compressions, No intubation/CPAP. Lives with her . Has a rollator walker and a cane. Has services through [facility] 24/hr per month- [facility] for light housekeeping and shower assistance. provides all other care. Pt has home oxygen at 2L prn from [facility]. Pt just had chemo last week for recurrent adenocarcinoma of the colon and new bladder mass. It is [id number]. Pt has been dealing with cancer since 2009. Next appointment is on 09/19 with . Pt has had pain for about a week. Pt is not on any home pain management. Awaiting PT evaluation. Pt is not interested in STR. Is agreeable to home PT. Has had [facility] in the past for SN and PT. They are her first choice. Will place referral and add additional local referrals
--- NOTE | 2024-09-05 19:09 | PC.NURSE ---
pt reports some pain improvement after oxycodone PO. pt states still 8/10 pain Ruben MARTINEZ made aware.
[2024-09-05] MEDS: HYDROmorphone HCl 2 MG TABLET PO (19:36)
[2024-09-05 20:36] VITALS: RESP 16
[2024-09-05 20:38] VITALS: BP 142/54; PULSE 85; RESP 15; TEMP 36.9; O2SAT 97
[2024-09-05] MEDS: Acetaminophen 325 MG TABLET 650 MG PO (21:55)
--- NOTE | 2024-09-05 21:59 | PC.NURSE ---
pt requested tylenol for GOOD. reports 9/10 lower back pain, states this is chronic but worse than usual. Ruben MARTINEZ aware. pt requested cranberry juice, given. pt appears in nad, currently back to sleeping. resp even and unlabored. call manley within reach.
[2024-09-06 03:31] VITALS: BP 147/68; PULSE 68; RESP 14; TEMP 36.9; O2SAT 97
--- NOTE | 2024-09-06 03:32 | PC.NURSE ---
pt reported 9/10 back pain and Ruben MARTINEZ made aware. upon entering room at this time pt appears very sleepy, arousable to name however nodding off. sats remain 97% on baseline 2L NC, able to answer questions appropriately. Ruben MARTINEZ to bedside to assess. currently to hold off on narcotics. call manley within reach. on continuous cardiac and o2 monitoring.
--- NOTE | 2024-09-06 04:15 | PC.NURSE ---
lidocaine patch removed. pt is axox4 speaking full clear sentences. sats 99% on baseline 2L NC. nad. call manley within reach.
--- NOTE | 2024-09-06 07:51 | PC.NURSE ---
1:1 assist OOB and to the commode. pt urinated approx. 300ml of dark yellow/non-foul smelling urine. pt assisted back into bed/repositioned to comfort. sitting upright eating breakfast. otherwise has no acute complaints at this time. pending PT eval. plan of care ongoing. call manley placed within reach.
[2024-09-06 08:38] VITALS: BP 147/68; PULSE 68; O2SAT 97
--- NOTE | 2024-09-06 08:53 | PC.NURSE ---
med rec completed by pharmacy. will administer medication when able. pt verbalizing increase in lower back/lower abd pain despite previous previous medication administration. provider notified/aware. pt still pending PT eval at this time. plan of care ongoing.
[2024-09-06] MEDS: oxyCODONE HCl Immed Release 5 MG TABLET PO (09:05)
--- NOTE | 2024-09-06 09:47 | PHA.MEDREC ---
Pharmacy Consult ? Medication Reconciliation Pharmacy has completed the medication reconciliation. Spoke to patient to confirm medication list. Patient said she has decreased her prn acetaminophen dose to 500 mg bid prn. She takes diltiazem in the evening around @1900. She confirmed she is still taking potassium chloride 20 mEq daily and that she is taking eliquis 5 mg bid. Last dose of medications was yesterday morning 09/05/24.
--- NOTE | 2024-09-06 10:01 | PC.NURSE ---
colostomy bag emptied.
[2024-09-06] MEDS: hydrALAZINE HCl 50 MG TABLET PO (10:28)
[2024-09-06] MEDS: Metoprolol Succinate ER 50 MG TAB.ER.24H PO (10:28)
[2024-09-06] MEDS: Divalproex Sodium ER 500 MG TAB.ER.24H PO (10:29)
[2024-09-06] MEDS: Apixaban 5 MG TABLET PO (10:29)
[2024-09-06] MEDS: Cyanocobalamin (Vitamin B-12) 1,000 MCG TABLET 1000 MCG PO (10:29)
[2024-09-06] MEDS: Omeprazole 20 MG CAPSULE.DR PO (10:29)
[2024-09-06] MEDS: Potassium Chloride ER 20 MEQ TAB.ER.PRT PO (10:29)
[2024-09-06] MEDS: clonazePAM 1 MG TABLET PO (10:29)
--- NOTE | 2024-09-06 10:45 | PC.NURSE ---
medication verified by pharmacy/administered.
[2024-09-06 10:58] VITALS: BP 189/66; PULSE 92; RESP 18; TEMP 36.8; O2SAT 94
--- NOTE | 2024-09-06 10:59 | PC.NURSE ---
pt noted to be hypertensive. BP medication recently administered. will reassess. otherwise vss and up to date. 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 plan of care ongoing. call manley placed within reach.
--- NOTE | 2024-09-06 11:02 | MHC.CM.ED ---
Patient remains in ER. Met with patient in regards to d/c planning. Patient reports physical therapy feels she can safely return home. Anticipate patient will d/c home today [facility]. Patient is currently complaining of nausea. Angelita MARTINEZ aware. Patient has transport home. Priya LESLIE and Angelita MARTINEZ aware. Continue to monitor for d/c needs.
[2024-09-06] MEDS: Naloxone HCl Nasal TAKE HOME 4 MG SPRAY 8 MG NOSTRILALT (11:24)
[2024-09-06] MEDS: Ondansetron ODT 4 MG TAB.RAPDIS TRANSLINGU (11:24)
[2024-09-06] MEDS: Heparin Sodium,Porcine Flush 500 UNIT/5 ML SYRINGE IVFLUSH (11:36)
[2024-09-06 11:37] VITALS: BP 176/86; PULSE 87; RESP 18; TEMP 37; O2SAT 95
--- NOTE | 2024-09-06 12:04 | PC.NURSE ---
pt up for discharge but remains hypertensive despite previous medication administration. provider notified/aware. will reassess shortly.
[2024-09-06 12:38] VITALS: BP 145/68; PULSE 94; RESP 18; TEMP 36.4; O2SAT 98
--- NOTE | 2024-09-06 12:39 | PC.NURSE ---
pt's PB improved s/p discharge. port-a-cath de-accessed prior to leaving.
[2024-09-06 12:42] VITALS: BP 145/68; PULSE 94; RESP 18; TEMP 36.4; O2SAT 98
--- NOTE | 2024-09-09 14:00 | PM.EVENT ---
Patient called stating that she went to emergency room over the weekend because of pelvic pain. She was prescribed oxycodone, she was told of tumor close to her bladder. She had 1 episode of vaginal bleeding today. Vaginal ultrasound has been ordered. Refill for oxycodone has been sent to her pharmacy.
== END 2024-09-06 12:43 | disposition home or self-care (01) ==
PROVIDERS: Physician Assistant; Emergency Provider Emergency Medicine; PCP Internal Medicine
DX: N32.9 Bladder disorder, unspecified (principal); M54.50 Low back pain, unspecified; M25.551 Pain in right hip; R10.30 Lower abdominal pain, unspecified; C34.32 Malignant neoplasm of lower lobe, left bronchus or lung; C78.5 Secondary malignant neoplasm of large intestine and rectum; Z92.21 Personal history of antineoplastic chemotherapy; J96.91 Respiratory failure, unspecified with hypoxia; Z99.81 Dependence on supplemental oxygen; I10 Essential (primary) hypertension; E78.00 Pure hypercholesterolemia, unspecified; I48.0 Paroxysmal atrial fibrillation; J44.9 Chronic obstructive pulmonary disease, unspecified; Z93.3 Colostomy status; Z87.891 Personal history of nicotine dependence; Z79.01 Long term (current) use of anticoagulants; Z79.02 Long term (current) use of antithrombotics/antiplatelets; Z79.899 Other long term (current) drug therapy; Z03.818 Encounter for observation for suspected exposure to other biological agents ruled out
CPT/HCPCS: 0241U; 36415; 73700; 74177; 80048; 80076; 81001; 83735; 85025; 96365; 96366; 96375; 96376; 97161; 99285; J1171; J1642; J2270; J2405; J3475; Q9967

== ENCOUNTER → 2024-09-05 08:58 | Outpatient (BNV) | payer MEDICARE, MEDICAID, SELFPAY | PROVIDERS: Emergency Provider Emergency Medicine; PCP Internal Medicine; Visit Provider Radiology Diagnostic Radiology | DX: N32.89 Other specified disorders of bladder (principal); I70.0 Atherosclerosis of aorta; M51.369 Other intervertebral disc degeneration, lumbar region without mention of lumbar back pain or lower extremity pain | CPT/HCPCS: 73700; 74177 ==

== ENCOUNTER 2024-09-10 15:21 | Inpatient (IN) | payer MEDICARE, MEDICAID, SELFPAY ==
[2024-09-10] VITALS (7 sets, daily range): BP systolic 118–133; BP diastolic 42–65; PULSE 68–81; RESP 12–18; TEMP 36.6–36.9; O2SAT 92–100; BMI 31.8
--- NOTE | ~2024-09-10 | CT_ITS ---
CLINICAL HISTORY: worsening abd pain CT abdomen and pelvis without contrast Comparison: CT/AR/SR - CT ABDOMEN PELVIS W IV CON - 09/05/24 11:[address] - CT ABDOMEN PELVIS W IV CON - 09/05/24 11:57 EDT Findings: Trace right pleural fluid present with minimal bibasilar subsegmental atelectasis. The gallbladder is surgically absent. The liver is enlarged. The liver appears normal in contour. The spleen, and bilateral adrenal glands are unremarkable in appearance. Calcifications are identified throughout the pancreas, suggesting sequela of chronic pancreatitis. No radiopaque renal calculi. No hydronephrosis or hydroureter. solid organs are within normal limits. No renal stones. No bowel obstruction, pneumoperitoneum, or pneumatosis. Colostomy in place at the mid left anterior abdominal wall with a parastomal hernia containing a nondilated loop of colon. Postsurgical changes of the bowel are identified at the mid to lower abdomen near the midline. Severe atherosclerotic calcifications are present at the abdominal aorta. There is probable associated high-grade luminal stenosis versus vessel occlusion at the distal aspect of the abdominal aorta near the common iliac artery bifurcation related to dense calcification, visualized on axial image number 382 of series 4. The uterus is surgically absent. No bladder wall thickening identified. Nonvisualization of the appendix. Posterior spinal fusion hardware in place at the L4 through S1 vertebral levels with intervertebral disc spacers at these sites. Vertebral body compression deformity redemonstrated at the L1 vertebral body. There appears to be interval development of a fracture involving a bridging vertebral body endplate osteophyte of the right anterolateral aspect of the L2 vertebral body, visualized on coronal image number 59 of series 7. This is not clearly identified on the 09/05/2024 exam. IMPRESSION: 1. Age-indeterminate vertebral body compression deformity redemonstrated at L1. This is visualized on the 09/05/2024 exam, but not on the 03/26/2024 examination. There also appears to be interval development of a fracture involving a bridging vertebral body endplate osteophyte of the superior L2 vertebral body endplate, not clearly identified on the prior examination. 2. Hepatomegaly. 3. Left-sided colostomy redemonstrated with a parastomal hernia containing a nondilated loop of colon. No bowel obstruction. 4. Redemonstration of extensive atherosclerotic calcifications at the abdominal aorta with probable high-grade luminal stenosis versus vessel occlusion of the infrarenal abdominal aorta related to dense calcified plaque, unchanged in appearance as compared to the prior exam. This document has been electronically signed by: Hiram Jones MD on 09/11/2024 01:09:00
--- NOTE | 2024-09-10 15:45 | ED_ITS ---
HPI - General Adult General Chief complaint: Abdominal Pain Stated complaint: Lower abd pain/cancer patient Time Seen by Provider: 09/10/24 16:24 History of Present Illness ED Provider: Dr. Abundio Erickson HPI narrative: 59-year-old female with past medical history significant for COPD, hypertension, hyperlipidemia, atrial fibrillation, recurrent sigmoid colon adenocarcinoma, lung cancer, bladder cancer (02/2024) who presents emergency department for evaluation of weakness and forgetfulness and referred to the emergency department by her visiting nurse. Patient was complaining of suprapubic pain, lower back pain, right hip pain. She states the pain is a constant, pain which is 10/10. She patient had similar pain and was seen here in the emergency department on 09/05/2024 for suprapubic, lower abdominal pain pain radiating to her right hip and lower back pain x1 week. Patient states she was had no appetite but has been able to drink fluid. The patient states she has been taking oxycodone and she believes that it was making her tired. She states she was had morphine in the past and this has helped with the her pain. Related Data Home Medications ?Medication ?Instructions ?Recorded ?Confirmed blood pressure monitor #1 ea 10/22/20 08/12/24 blood pressure test kit-large #1 ea 10/22/20 08/12/24 divalproex 500 mg tablet,extended 1,000 mg PO BEDTIME 04/15/24 09/10/24 release 24 hr metoprolol succinate 50 mg 50 mg PO DAILY 04/15/24 09/10/24 tablet,extended release 24 hr fluticasone furoate 100 1 inh inhalation DAILY 04/29/24 09/10/24 mcg-vilanterol 25 mcg/dose inhalation powder (Breo Ellipta) acetaminophen 500 mg tablet 500 mg PO Q12H PRN Pain 09/06/24 09/10/24 diltiazem HCl 240 mg 240 mg PO DAILY@1900 09/06/24 09/10/24 capsule,extended release 24 hr loperamide 2 mg capsule 4 mg PO QIDACHS 09/10/24 09/10/24 Previous Rx's ?Medication ?Instructions ?Recorded divalproex 500 mg tablet,extended 500 mg PO DAILY #90 tabs 02/01/23 release 24 hr umeclidinium 62.5 mcg/actuation 1 inh inhalation DAILY #30 ea 09/20/23 blister powder for inhalation (Incruse Ellipta) walker (Ultra-Light Rollator misc) #1 ea 09/29/23 Tub ledge vertical grab bar/ not #1 ea 03/06/24 suction bar. riboflavin (vitamin B2) 400 mg 400 mg PO DAILY 30 days #30 tabs 04/04/24 tablet metoclopramide HCl 10 mg tablet 10 mg PO Q6H PRN Nausea #30 tabs 04/08/24 heavy duty adjustable hand rail #1 ea 04/22/24 ferrous sulfate 325 mg (65 mg 325 mg PO BID #60 tabs 05/03/24 iron) tablet (FeroSul) fenofibrate 160 mg tablet 160 mg PO BEDTIME #90 tabs 06/20/24 apixaban 5 mg tablet (Eliquis) 5 mg PO BID 90 days #180 tabs 07/14/24 atorvastatin 80 mg tablet 80 mg PO BEDTIME #30 tabs 07/14/24 duloxetine 60 mg capsule,delayed 60 mg PO BEDTIME #30 caps 07/14/24 release hydralazine 50 mg tablet 50 mg PO TID #90 tabs 07/14/24 omeprazole 20 mg capsule,delayed 20 mg PO BID@0630,1630 90 days 07/14/24 release #180 caps cyanocobalamin (vitamin B-12) 1,000 mcg PO DAILY #90 tabs 08/16/24 1,000 mcg tablet (Vitamin B-12) clonazepam 1 mg tablet 1 mg PO BID 30 days #60 tabs 08/29/24 ondansetron 4 mg disintegrating 4 mg PO DAILY PRN nausea and 09/06/24 tablet vomiting 5 days #10 tabs oxycodone 5 mg tablet 5 mg PO Q4H PRN Pain (Scale Score 09/09/24 7-10) #60 tabs Allergies Allergy/AdvReac Type Severity Reaction Status Date / Time Penicillins Allergy Mild Rash Verified 09/10/24 15:48 venlafaxine [From Effexor] Allergy Mild Rash Verified 09/10/24 15:48 cyclobenzaprine Allergy Unknown Unknown Verified 09/10/24 15:48 [Cyclobenzaprine] topiramate [From Topamax] Allergy Unknown Unknown Verified 09/10/24 15:48 levofloxacin [From Levaquin] AdvReac Severe Diarrhea Verified 09/10/24 15:48 Sulfa (Sulfonamide AdvReac Severe Diarrhea Verified 09/10/24 15:48 Antibiotics) fentanyl [FENTANYL] AdvReac Intermediate Hallucinati Verified 09/10/24 15:48 ons tramadol AdvReac Intermediate Hallucinati Verified 09/10/24 15:48 ons Review of Systems 2 Review of Systems: Yes all other systems are reviewed and are negative [facility] Past Medical History [facility] Narrative: Social history: Patient lives at home with her . She denies tobacco, alcohol and drug use. Medical History Acute on chronic diastolic CHF (congestive heart failure) CHF exacerbation Respiratory failure with hypoxia and hypercapnia Chronic confusion Depression Smoker Chronic back pain Colostomy in place (~2020) Personal history of nicotine dependence Polysubstance (including opioids) dependence, binge pattern Atrial fibrillation with rapid ventricular response Congestive heart failure Restrictive lung disease COPD (chronic obstructive pulmonary disease) No natural teeth COVID-19 vaccine series completed History of COVID-19 (~04/2020) Oxygen dependent Pericardial effusion Other and unspecified hyperlipidemia Essential hypertension Peripheral vascular disease Preoperative cardiovascular examination Bilateral pneumonia Adenocarcinoma of sigmoid colon (~2020) Hypernatremia GI bleed UTI (urinary tract infection) Pleural effusion, left Colon cancer (~2020) IVY (obstructive sleep apnea) Cancer of lower lobe of left lung (~2020) GERD (gastroesophageal reflux disease) Acute and chronic respiratory failure Lung cancer Obesity Hypoventilation associated with obesity Obesity hypoventilation syndrome Respiratory failure with hypoxia and hypercapnia Rotator cuff strain Hypoxia Pneumonia Restless legs syndrome (RLS) Sleep disorder Bipolar disorder (~2009) Back pain with history of spinal surgery Renal failure Fibromyalgia Depression High cholesterol PTSD (post-traumatic stress disorder) CAD (coronary artery disease) HTN (hypertension) Surgical History History of partial colectomy (~12/2020) History of cardiac cath (~2010) History of hysterectomy (~1990) History of cholecystectomy History of appendectomy (~1982) History of colonoscopy (~08/2020) History of lobectomy of lung (~08/2020) History of esophagogastroduodenoscopy (EGD) History of bunionectomy (~1977) History of back surgery Family History Family History Maternal Aunt Breast cancer Stroke COPD (chronic obstructive pulmonary disease) Maternal Aunt Breast cancer COPD (chronic obstructive pulmonary disease) Mother Uterine cancer COPD (chronic obstructive pulmonary disease) HTN (hypertension) Heart disease Mental health disorder Maternal Uncle Stroke Paternal Grandmother Heart attack Parkinsons disease Sister Diabetes IBS (irritable bowel syndrome) Son HTN (hypertension) Substance use disorder Daughter HTN (hypertension) Father HTN (hypertension) Parkinsons disease Brother Heart disease Family/Other Mental health disorder Social History Social History Household Members: Spouse Housing: Apartment Are you a primary hospice home care coordinator to a significant other at home: No Do you presently have visiting nurse or other home services: No Unable to assess alcohol history related to: Unable to respond Alcohol intake: never Comment: sitter at bedside Patient Tobacco Use Status: Former Tobacco user Tobacco use type: Cigarette Years Smoked: 40 e-Cigarette/Vaping Use: Former Use Second Hand Smoke Exposure: No Advance Directives: Yes Advance Directives on File: Yes Advance Directives Date on File: 10/05/22 Do you have a plan to hurt others: No Plan Nutrition Risks: No Nutritional Risk service: No Current occupational status: unemployed and disabled Cognitive needs: Yes (walker ) Hearing needs: No Vision needs: No Physical Exam ED Vital Signs: Vital Signs - 24 hr 09/10/24 15:44 09/10/24 16:38 09/10/24 18:21 Temperature 98 F 98.0 F Pulse Rate 77 75 Respiratory Rate 18 18 16 Blood Pressure 122/42 L 122/64 Pulse Oximetry 93 92 Oxygen Delivery Method Room Air Nasal Cannula Oxygen Flow Rate 2 09/10/24 18:54 09/10/24 19:53 09/10/24 22:05 Temperature 98.4 F 97.8 F 97.8 F Pulse Rate 74 68 69 Respiratory Rate 14 14 12 Blood Pressure 118/65 133/55 L 131/56 L Pulse Oximetry 95 100 96 Oxygen Delivery Method Nasal Cannula Nasal Cannula Nasal Cannula Oxygen Flow Rate 2 2 1 BMI result Body Mass Index 31.8 Vital signs were normal Exam: General: Awake, alert in no distress, oriented to person and place Head: Normocephalic, atraumatic EENT: PERRL, Lids normal, sclera normal, conjunctiva normal, nose normal , ears normal, throat without erythema or exudates Neck: Supple, no adenopathy Lung: breath sounds symmetric, no wheezing, rales or rhonchi Chest: symmetric movement, nontender Heart: regular rate and rhythm, normal S1, S2 no murmurs or rubs Abdomen: soft, moderate suprapubic tenderness, left colostomy with brown stool in the ostomy bag Back: no vertebral tenderness, no CVAT Extremities: no deformities, tenderness palpation over the right hip and pain with movement of the right hip Neuro: Awake, alert, oriented, normal speech, cranial nerves intact, upper extremity strength symmetric Psych: Pleasant, cooperative Course Course Course Narrative: RME, this is a rapid medical exam performed by Ruben Alvarado please refer to primary provider for complete H&P- 59-year-old female with past medical history significant for COPD, hypertension, hyperlipidemia, atrial fibrillation, colon cancer, lung cancer and recent diagnosis of bladder mass presents for evaluation general weakness and forgetfulness. The patient was started on chemo last week for a bladder mass. Her visiting nurse sent her here today as he found her weaker than normal and forgetful. The supposedly started when she woke up this morning. No neuro deficits in triage. she had an MRI of her brain in April of last year that was unremarkable With the exception of chronic small-vessel ischemia. Plan for labs, urinalysis. Medications Administered Generic Name Dose Route Start Last Admin Trade Name Freq PRN Reason Stop Dose Admin Apixaban 5 mg 09/10/24 22:55 09/11/24 09:06 Apixaban 5 Mg Tablet PO 5 mg BID LONG Administration Cyanocobalamin 1,000 mcg 09/11/24 09:00 09/11/24 09:06 Cyanocobalamin (Vitamin B-12) 1,000 Mcg Tablet PO 1,000 mcg DAILY LONG Administration Divalproex Sodium 1,000 mg 09/10/24 23:00 09/11/24 00:33 Divalproex Sodium Er 500 Mg Tab.Er.24h PO 1,000 mg BEDTIME LONG Administration Divalproex Sodium 500 mg 09/11/24 09:00 09/11/24 09:06 Divalproex Sodium Er 500 Mg Tab.Er.24h PO 500 mg DAILY LONG Administration Ferrous Sulfate 324 mg 09/11/24 09:00 09/11/24 09:05 Ferrous Sulfate 324 Mg Tablet. PO 324 mg BID LONG Administration Fluticasone/Vilanterol 1 puff 09/11/24 09:00 09/11/24 07:39 Fluticasone/Vilanterol 100/25 Blst.W.Dev INHALE Not Given DAILY LONG Hydralazine HCl 50 mg 09/11/24 09:00 09/11/24 09:18 Hydralazine Hcl 50 Mg Tablet PO Not Given TID LONG Protocol Hydromorphone HCl 1 mg 09/10/24 22:27 09/11/24 09:15 Hydromorphone Hcl 1 Mg/Ml Syringe IVPUSH 1 mg Q4H PRN Administration Pain, Severe (Pain Scale 7-10) Protocol Lactated Ringer's 1,000 mls @ 50 mls/hr 09/10/24 22:30 09/10/24 23:03 Lr IVCONT 50 mls/hr .Q20H LONG Administration Lactated Ringer's 1,000 mls @ 100 mls/hr 09/11/24 08:30 09/11/24 09:06 Lr IVCONT 100 mls/hr .Q10H LONG Administration Lactulose 20 gm 09/11/24 09:00 09/11/24 09:16 Lactulose 20 Gm/30 Ml Solution PO 20 gm DAILY LONG Administration Metoprolol Succinate 50 mg 09/11/24 09:00 09/11/24 09:18 Metoprolol Succinate Er 50 Mg Tab.Er.24h PO Not Given DAILY LONG Protocol Omeprazole 20 mg 09/11/24 06:30 09/11/24 05:55 Omeprazole 20 Mg Capsule. PO Not Given BID@0630,1630 LONG Sodium Chloride 3 ml 09/11/24 00:00 09/11/24 09:15 0.9 % Sodium Chloride Flush 3 Ml Syringe IVFLUSH 3 ml QSHIFT LONG Administration Tiotropium [place] 2 puff 09/11/24 09:00 09/11/24 07:39 Tiotropium [place] 2.5 Mcg 1 Puff/2.5 Mcg Mist.Inhal INHALE Not Given DAILY LONG Discontinued Medications Generic Name Dose Route Start Last Admin Trade Name Freq PRN Reason Stop Dose Admin Sodium Chloride 1,000 mls @ 999 mls/hr 09/10/24 17:56 09/10/24 22:24 Ns IV 09/10/24 18:56 Infused .Q1H1M STA Infusion Lactulose 30 gm 09/10/24 17:56 09/10/24 18:19 Lactulose 20 Gm/30 Ml Solution PO 09/10/24 17:57 30 gm ONCE ONE Administration Lactulose 30 gm 09/10/24 22:07 09/10/24 23:05 Lactulose 20 Gm/30 Ml Solution PO 09/10/24 22:08 30 gm ONCE ONE Administration Morphine Sulfate 4 mg 09/10/24 17:56 09/10/24 18:21 Morphine Sulfate 4 Mg/Ml Cartridge IVPUSH 09/10/24 17:57 4 mg ONCE STA Administration Protocol Morphine Sulfate 4 mg 09/10/24 19:47 09/10/24 20:05 Morphine Sulfate 4 Mg/Ml Cartridge IVPUSH 09/10/24 19:48 4 mg ONCE STA Administration Protocol Ondansetron HCl 4 mg 09/10/24 17:56 09/10/24 18:21 Ondansetron Hcl 4 Mg/2 Ml Vial IVPUSH 09/10/24 17:57 4 mg ONCE ONE Administration Medical Decision Making Medical Decision Making MDM Narrative: 59-year-old female with past medical history significant for COPD, hypertension, hyperlipidemia, atrial fibrillation, recurrent sigmoid colon adenocarcinoma, lung cancer, bladder cancer (02/2024) currently receiving chemotherapy treatment by Dr. Ahumada who presents emergency department for evaluation of weakness and forgetfulness and referred to the emergency department by her visiting nurse. Patient was complaining of suprapubic pain, lower back pain, right hip pain. She states the pain is a constant, pain which is 10/10. She patient had similar pain and was seen here in the emergency department on 09/05/2024 for suprapubic, lower abdominal pain pain radiating to her right hip and lower back pain x1 week. Patient states she was had no appetite but has been able to drink fluid. The patient states she has been taking oxycodone and she believes that it was making her tired. She states she was had morphine in the past and this has helped with the her pain. Differential diagnosis: ?Includes but is not limited to pain from cancer. r, confusion secondary to opiate use, hepatic encephalopathy, anemia, electrolyte abnormalities, urinary tract infection Course: 18:05 My interpretation patient's laboratory evaluation as follows: WBC low 4300, normocytic anemia with an H&H of 11 and 33.4. CMP revealed normal LFTs. Patient had an elevated ammonia level of 95. Lipase was normal. UA was positive for blood and concentrated. Microscopic revealed 3-5 RBCs, 0-5 WBCs, 0-2 squamous cells and no bacteria-no evidence for urinary tract infection. COVID-19, influenza and RSV tests were negative. At this time, I believe with the patient's pain is due to her recurrent colon cancer and possibly her bladder cancer. Patient was ordered to get morphine 4 mg IV, Zofran 4 mg IV and normal saline x1 L. Given her elevated ammonia she was given lactulose 30 g orally. 21:08 The patient required a 2nd dose of morphine 4 mg IV. The patient states that her pain is only minimally improved. Given her persistent pain in her elevated ammonia, I believe the patient needs to be admitted for further treatment. 21:33 I did discuss the patient's presentation with the covering hospitalist, Dr. Blue and the patient will be admitted to the medical service for further treatment. Admission/Observation Consideration of admission/observation: Escalation of care including admission/observation considered (Yes) Lab Data MDM Lab Attestation statement: I reviewed the patient's lab results. 09/11/24 03:45 09/11/24 03:45 Labs: Lab Results 09/10/24 09/10/24 Range/Units 15:55 19:51 WBC 4.3 L (4.8-10.8) X10*3/uL RBC 3.47 L (4.20-5.50) X10*6/uL Hgb 11.0 L (12.0-16.0) g/dl Hct 33.4 L (37.0-47.0) % MCV 96.3 (80.0-98.0) fL MCH 31.7 (27.0-33.0) pg MCHC 32.9 (31.0-35.0) g/dl RDW 16.5 H (11.0-16.0) % Plt Count 308 D (160-400) X10*3/uL MPV 9.5 (9.4-12.3) fL Immature Gran % (Auto) 1.2 H (0.0-0.4) % Neut % (Auto) 44.1 L (45-73) % Lymph % (Auto) 43.6 H (20-40) % [place] % (Auto) 9.2 (2-11) % Eos % (Auto) 1.4 (0-4) % Baso % (Auto) 0.5 (0-2) % Lymph # (Auto) 1.9 (1.2-4.9) X10*3/uL [place] # (Auto) 0.4 (0.1-1.2) X10*3/uL Eos # (Auto) 0.1 (0.0-0.4) X10*3/uL Baso # (Auto) 0.0 (0.0-0.2) X10*3/uL Abs Immat Gran (auto) 0.05 H (0.00-0.03) X10*3/uL Absolute Neuts (auto) 1.9 L (2.0-8.3) x10*3/uL Absolute Nucleated RBC 0.000 (0.0-0.012) X10*3/uL Nucleated RBC % (auto) 0.0 (0.0-0.2) /100WBC Sodium 143 (135-145) mmol/L Potassium 4.1 (3.3-5.1) mmol/L Chloride 105 (96-108) mmol/L Carbon Dioxide 27 (22-29) mmol/L Anion Gap 15 (12-20) BUN 10 (9-16) mg/dL Creatinine 0.72 (0.5-1.4) mg/dL Estim Creat Clear Calc 85.9 Estimated GFR > 60 Random Glucose 107 (60-115) mg/dL Calcium 8.6 (8.4-10.2) mg/dL Total Bilirubin 0.3 (0.0-1.0) mg/dL AST 26 (5-31) U/L ALT < 6 (0-31) U/L Alkaline Phosphatase 106 (39-117) U/L Ammonia 95 H (13-55) umol/L Total Protein 6.4 L (6.5-8.0) g/dL Albumin 3.6 (3.5-5.0) g/dL Lipase 11 (8-78) U/L Urine Color Dark Yellow Urine Appearance Clear Urine pH 6.5 (5.0-9.0) Ur Specific [place] 1.010 (1.005-1.025) Urine Protein Negative (Neg-Trace) mg/dL Urine Glucose (UA) Negative (Negative) mg/dL Urine Ketones Negative (Negative) mg/dL Urine Blood Negative (Negative) Urine Nitrite Negative (Negative) Ur Leukocyte Esterase Negative (Negative) Urine RBC 0-2 (0-2) /HPF Urine WBC 0-5 (0-5) /HPF Ur Squamous Epith Cells 0-2 (0-2) /HPF Urine Bacteria None Seen (None Seen) Hyaline Casts 0-2 (0-2) /LPF Influenza Type A (PCR) NEGATIVE (Negative) Influenza Type B (PCR) NEGATIVE (Negative) RSV RNA Qual (PCR) NEGATIVE (Negative) SARS-CoV-2 RNA (RT-PCR) NEGATIVE (Negative) Independent Historian Clinical information obtained from an independent historian. History obtained from or confirmed by: Spouse External Record Review External record reviewed: Inpatient record and Office record Chronic Conditions Patient?s care impacted by: Hypertension, Cancer and Other ( COPD) Discharge Plan Discharge Clinical Impression: Metastatic cancer, Intractable abdominal pain, Acute hepatic encephalopathy Patient Disposition: Admitted As Inpatient
[2024-09-10 15:59] LABS: MANUAL DIFF FLAG NO
[2024-09-10 16:02] LABS: Basophils Percent Auto 0.5 % (0-2); Eosinophils Absolute Auto 0.1 X10*3/uL (0.0-0.4); Eosinophils Percent Auto 1.4 % (0-4); Hematocrit 33.4 % (37.0-47.0); Imm Gran Abs Auto 0.05 X10*3/uL (0.00-0.03); Imm Gran Pct Auto 1.2 % (0.0-0.4); Lymphocytes Absolute Auto 1.9 X10*3/uL (1.2-4.9); Lymphocytes Percent Auto 43.6 % (20-40); Mean Corpuscular HGB Conc 32.9 g/dl (31.0-35.0); Mean Corpuscular Hemoglobin 31.7 pg (27.0-33.0); Mean Corpuscular Volume 96.3 fL (80.0-98.0); Mean Platelet Volume 9.5 fL (9.4-12.3); Monocytes Absolute Auto 0.4 X10*3/uL (0.1-1.2); Monocytes Percent Auto 9.2 % (2-11); Neutrophils Absolute Auto 1.9 x10*3/uL (2.0-8.3); Neutrophils Percent Auto 44.1 % (45-73); Platelet Count 308 X10*3/uL (160-400); Red Blood Count 3.47 X10*6/uL (4.20-5.50); Red Cell Distribution Width 16.5 % (11.0-16.0); White Blood Count 4.3 X10*3/uL (4.8-10.8)
[2024-09-10 16:10] LABS: Ammonia 95 umol/L (13-55)
[2024-09-10 16:27] LABS: Alanine Aminotransferase < 6 U/L (0-31); Albumin Level 3.6 g/dL (3.5-5.0); Anion Gap 15 (12-20); Bilirubin Total 0.3 mg/dL (0.0-1.0); Blood Urea Nitrogen 10 mg/dL (9-16); Calcium 8.6 mg/dL (8.4-10.2); Carbon Dioxide 27 mmol/L (22-29); Chloride 105 mmol/L (96-108); Creatinine Clr Calc Pharmacy 85.9; Estimated Glomerular Filt Rate > 60; Glucose Random 107 mg/dL (60-115); Lipase 11 U/L (8-78); Potassium 4.1 mmol/L (3.3-5.1); Sodium 143 mmol/L (135-145); Total Protein 6.4 g/dL (6.5-8.0)
[2024-09-10 16:31] LABS: Alkaline Phosphatase 106 U/L (39-117); Aspartate Amino Transferase 26 U/L (5-31)
[2024-09-10 16:40] LABS: Influenza A PCR NEGATIVE (Negative); Influenza B PCR NEGATIVE (Negative); Resp Syncy Virus RNA Qual PCR NEGATIVE (Negative); SARS COV2 PCR INHOUSE NEGATIVE (Negative)
--- NOTE | 2024-09-10 17:11 | PC.NURSE ---
Pt reporting she has been receiving chemo for stage 4 metastatic jovanna cancer. Pt reports last treatment was last week and she is suppose to be going every 3 weeks. Pt reporting pain in her abdomen, reporting increased urination but denies pain with urination. Pt reporting she feels like her weakness is getting worse. On assessment pt O2 found to be 87% pt placed on 2L NC at this time by tech. Pt was withdrawn during nursing assessment. Awaiting to be seen by a provider at this time
[2024-09-10] MEDS: Lactulose 20 GM/30 ML SOLUTION 30 GM PO ×2 (18:19→23:05)
[2024-09-10] MEDS: 0.9 % Sodium Chloride 1,000 ML 999 ML IV (18:21)
[2024-09-10] MEDS: Morphine Sulfate 4 MG/ML CARTRIDGE IVPUSH ×2 (18:21→20:05)
[2024-09-10] MEDS: ondansetron HCL 4 MG/2 ML VIAL IVPUSH (18:21)
--- OUTSIDE RECORDS SUMMARY | 2024-09-10 19:06 | XMS_ITS | Clinical Summary ---
Author Organization [address] Address [address] [place] [address] Phone Care Team Providers Care Band Nailer Name Role Phone Cassandra Oconnor MD Primary Care Provider [phone] Encounters Date Type Department Care Team Description 08/02/2024 10:39 AM EST - 08/02/2024 11:59 PM EST Hospital Encounter [facility] PET Scan [address] [place] [address] Malignant neoplasm of sigmoid colon (CMS/HCC) Discharge Disposition: Home or Self Care from Last 3 Months Surgical History Surgery Date Site/Laterality Comments OTHER SURGICAL HISTORY PROCEDURE: [place] UNLISTED PROCEDURE SPINE; COMMENT: lumbar spine Sx. Metal hardware in place. HYSTERECTOMY PROCEDURE: HISTORICAL HYSTERECTOMY APPENDECTOMY PROCEDURE: HISTORICAL APPENDECTOMY CHOLECYSTECTOMY PROCEDURE: HISTORICAL CHOLECYSTECTOMY BACK SURGERY PROCEDURE: HISTORICAL BACK SURGERY APPENDECTOMY PROCEDURE: [place] APPENDECTOMY CHOLECYSTECTOMY PROCEDURE: [place] LAPAROSCOPY SURG CHOLECYSTECTOMY Medical History Medical History [...] PM EDT Appointment 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) drug therapy from Last 3 Months [...] Signed Date: 08/05/2024 10:57 ET Workstation ID: [id number] Transcribed By: Self Edit Transcribed Date: 08/05/2024 [...] Signed Date: 08/05/2024 10:57 ET Workstation ID: [id number] Transcribed By: Self Edit Transcribed Date: 08/05/2024 09:39 ET Aliza Ahumada MD [facility] PROCEDURES Final Result * (ABNORMAL) Basic metabolic panel (05/17/2024 6:14 AM EST) Sodium 142 133 - 145 mmol/L LAB CHEMISTRY METHOD 05/17/2024 11:20 AM EST [facility] Potassium 4.6 3.5 - 5.5 mmol/L LAB CHEMISTRY METHOD 05/17/2024 11:20 AM EST [facility] Chloride 104 96 - 110 mmol/L LAB CHEMISTRY METHOD 05/17/2024 11:[address] [facility] CO2 26 21 - 32 mmol/L LAB CHEMISTRY METHOD 05/17/2024 11:[address] [facility] Anion Gap 12(H) 3 - 11 LAB CHEMISTRY METHOD 05/17/2024 11:[address] [facility] Glucose 102(H) 70 - 100 mg/dL LAB CHEMISTRY METHOD 05/17/2024 11:[address] [facility] BUN 17 5 - 25 mg/dL LAB CHEMISTRY METHOD 05/17/2024 11:[address] [facility] Creatinine 0.87 0.50 - 1.10 mg/dL LAB CHEMISTRY METHOD 05/17/2024 11:[address] [facility] eGFR 76 >=60 mL/min/1. 73m2 LAB CHEMISTRY METHOD 05/17/2024 11:[address] [facility] Comment:Calculation based on the??Chronic Kidney Disease Epidemiology Collaboration (CKD-EPI) equation refit??without adjustment for race. BUN/Creatinine Ratio 19.5 LAB CHEMISTRY METHOD 05/17/2024 11:[address] [facility] Calcium 9.1 8.5 - 10.5 mg/dL LAB CHEMISTRY METHOD 05/17/2024 11:[address] [facility] Blood Venous blood specimen / Unknown Venipuncture / Unknown 05/17/2024 6:14 AM EST 05/17/2024 10:16 AM EST us Ray Lee MD LAB BLOOD ORDERABLES Final Resul t [facility] [address] [place] [address], [place] [phone] from Last 3 Months or Most Recently Relevant to Health Maintenance Insurance MEDICARE MEDICAID - [place] Advance Directives Documents on File Type Date Recorded Patient Family Law Mediator Expl anation Health Care Decision (hx) 09/07/2020 AD WHITLEY DIRECTIVE Health Care Decision (hx) 09/07/2020 AD WHITLEY DIRECTIVE Health Care Decision (hx) 09/07/2020 AD WHITLEY DIRECTIVE Health Care Decision (hx) 09/07/2020 AD WHITLEY DIRECTIVE Care Teams Band Nailer Relationship Specialty Start Date End Date Cassandra Oconnor MD [address] [place] [address] PCP - General 10/26/10
--- OUTSIDE RECORDS SUMMARY | 2024-09-10 19:06 | XMS_ITS | Clinical Summary ---
Author Organization [employer] Address [address] [place] [address] [address] [place] [address] Care Team Providers Care Embryology Professor Name Role Phone Unavailable Primary Care Provider Unavailabl e Encounters Date Type Department Care Team Description 08/06/2024 Orders Only [place] [employer] [address] [place] [address] ProviderSilvia MD from Last 3 Months Social [...]
--- OUTSIDE RECORDS SUMMARY | 2024-09-10 19:06 | XMS_ITS | Encounter Summary ---
Author Organization [facility] Address [address] [place] [address] Care Team Providers Care Supervisor Core Shop Name Role Phone Cassandra Oconnor MD Primary Care Provider [phone] [phone] Encounter Details Date Type Department Care Team (Late Contact Info) Description 05/07/2024 Lab Requisition [facility] - Main Lab 299 [facility] [place] [address] Ray Lee MD [address] [place] [phone] Essential (primary) hypertension Social History Tobacco [...] Info) Description 11/06/2024 3:30 PM EDT Appointment [facility] Scan [address] [place] [phone] 11/14/2024 1:30 PM EDT Office Visit Thoracic Surgery - [place] 299 [facility] [address] [place] [address] Annie Hall PA 299 [facility], [address] [place], [place] [phone] documented as of this encounter Procedures Procedure [...] LAB Eosinophils Absolute 0.00 0.00 - 0.50 K/[facility] LAB HEMETOLOGY METHOD 05/07/2024 10:31 AM EST [facility] LAB Basophils Absolute 0.09 0.00 - 0.20 K/[facility] LAB HEMETOLOGY METHOD 05/07/2024 10:31 AM [facility] LAB Immature Granulocytes Absolute 0.20(H) 0.00 - 0.03 K/[facility] LAB HEMETOLOGY METHOD 05/07/2024 10:31 AM [facility] LAB Blood Venous blood specimen / Unknown Venipuncture / Unknown 05/07/2024 7:55 AM EST 05/07/2024 10:01 AM EST Ray Lee MD LAB BLOOD ORDERABLES Final Resul t Performing Organization Address [facility]/ZIP Co de Phone Number [facility] LAB [address] [place] [address], [place] [phone] * Valproic acid level, total (05/07/2024 7:55 AM EST) Pathologist [facility] Valproic Acid, Total 71 50 - 100 mcg/mL LAB CHEMISTRY METHOD 05/07/2024 10:47 AM [facility] LAB Blood Venous blood specimen / Unknown Venipuncture / Unknown 05/07/2024 7:55 AM EST 05/07/2024 10:01 AM EST Ray Lee MD LAB BLOOD ORDERABLES Final Resul t [facility] [address] [place] [address], [place] [phone] * (ABNORMAL) Comprehensive metabolic panel (05/07/2024 7:55 AM EST) Pathologist [facility] Sodium 137 133 - 145 mmol/L LAB [...] Resul t [facility] [address] [place] [address], documented in this encounter Visit Diagnoses Diagnosis Essential (primary) hypertension Unspecified essential hypertension documented in this encounter Care Teams Supervisor Core Shop Relationship Specialty Start Date End Date Cassandra Oconnor MD [address] [place] [address] PCP - General 10/26/10 documented as of this encounter
--- OUTSIDE RECORDS SUMMARY | 2024-09-10 19:06 | XMS_ITS | Encounter Summary ---
Author Organization [facility] Address [address] [place] [phone] Care Team Providers Care Sodium Methylate Operator Name Role Phone Cassandra Oconnor MD Primary Care Provider [phone] [phone] Encounter Details Date Type Department Care Team (Late Contact Info) Description 05/09/2024 Lab Requisition [facility] - Main Lab 299 [facility] [place] [address] Ray Lee MD [address] [place] [phone] Other usp (current) drug therapy Social [...] Description 11/06/2024 3:30 PM EDT Appointment [facility] CT Scan [address] [place] [phone] 11/14/2024 1:30 PM EDT Office Visit Thoracic Surgery - [place] 299 [facility] [address] [place] [phone] Annie Hall PA 299 [facility], [address] [place], [place] [phone] documented as of this encounter Procedures Procedure Name Priority Date/Time Associated Diagnosis Comments COMPLETE BLOOD COUNT Routine 05/10/2024 8:37 AM EST Other intermission coordinator (current) drug therapy BASIC METABOLIC PANEL Routine 05/10/2024 8:37 AM EST Other usp (current) drug therapy documented in this encounter Results * Basic metabolic panel (05/10/2024 8:37 AM EST) Sodium 140 133 - 145 mmol/L LAB CHEMISTRY METHOD 05/10/2024 11:21 AM [facility] Potassium 4.7 3.5 - 5.5 mmol/L LAB CHEMISTRY METHOD 05/10/2024 11:21 AM [facility] LAB Comment:Hemolysis present Chloride 103 96 - 110 mmol/L LAB CHEMISTRY METHOD 05/10/2024 11:21 AM [facility] CO2 26 21 - 32 mmol/L LAB CHEMISTRY METHOD 05/10/2024 11:21 AM [facility] Anion Gap 11 3 - 11 LAB CHEMISTRY METHOD 05/10/2024 11:21 AM [facility] Glucose 95 70 - 100 mg/dL LAB CHEMISTRY METHOD 05/10/2024 11:21 AM [facility] BUN 16 5 - 25 mg/dL LAB CHEMISTRY METHOD 05/10/2024 11:21 AM [facility] Creatinine 0.72 0.50 - 1.10 mg/dL LAB CHEMISTRY METHOD 05/10/2024 11:21 AM [facility] eGFR 96 >=60 mL/min/1. 73m2 LAB CHEMISTRY METHOD 05/10/2024 11:21 AM [facility] Comment:Calculation based on the??Chronic Kidney Disease Epidemiology Collaboration (CKD-EPI) equation refit??without adjustment for race. BUN/Creatinine Ratio 22.2 LAB CHEMISTRY METHOD 05/10/2024 11:21 AM [facility] Calcium 9.2 8.5 - 10.5 mg/dL LAB CHEMISTRY METHOD 05/10/2024 11:21 AM [facility] Blood Venous blood specimen / Unknown Venipuncture / Unknown 05/10/2024 8:37 AM EST 05/10/2024 10:31 AM EST us Ray Lee MD LAB BLOOD ORDERABLES Final Resul t [facility] [address] [place] [address], * (ABNORMAL) Complete blood count (05/10/2024 8:37 AM EST) WBC 9.8 4.8 - 10.8 K/mcL LAB HEMETOLOGY METHOD 05/10/2024 10:50 AM [facility] RBC 4.00 3.80 - 4.80 M/[facility] LAB HEMETOLOGY METHOD 05/10/2024 10:50 AM [facility] Hemoglobin 12.5 11.5 - 16.0 g/dL LAB HEMETOLOGY METHOD 05/10/2024 10:50 AM [facility] Hematocrit 42.1 35.0 - 47.0 % LAB HEMETOLOGY METHOD 05/10/2024 10:50 AM [facility] MCV 105.5(H) 79.0 - 98.0 FL LAB HEMETOLOGY METHOD 05/10/2024 10:50 AM [facility] LAB MCH 31.3 27.0 - 32.0 pcg LAB HEMETOLOGY METHOD 05/10/2024 10:50 AM [facility] LAB MCHC 29.7(L) 32.0 - 37.0 g/dL LAB HEMETOLOGY METHOD 05/10/2024 10:50 AM [facility] RDW 18.6(H) 11.0 - 15.0 % LAB HEMETOLOGY METHOD 05/10/2024 10:50 AM [facility] LAB Platelets 390 130 - 400 K/mcL LAB HEMETOLOGY METHOD 05/10/2024 10:50 AM EST [facility] LAB MPV 11.2(H) 7.0 - 11.0 FL LAB HEMETOLOGY METHOD 05/10/2024 10:50 AM EST [facility] LAB NRBC 0.0 <1.0 % LAB HEMETOLOGY METHOD 05/10/2024 10:50 AM EST [facility] LAB NRBC Absolute 0.00 <0.10 K/mcL LAB HEMETOLOGY METHOD 05/10/2024 10:50 AM EST [facility] LAB Blood Venous blood specimen / Unknown Venipuncture / Unknown 05/10/2024 8:37 AM EST 05/10/2024 10:31 AM EST us Ray Lee MD LAB BLOOD ORDERABLES Final Resul t [facility] [address] [place] [address], documented in this encounter Visit Diagnoses Diagnosis Other usp (current) drug therapy documented in this encounter Care Teams Sodium Methylate Operator Relationship Specialty Start Date End Date Cassandra Oconnor MD [address] [place] [address] PCP - General 10/26/10 documented as of this encounter
--- OUTSIDE RECORDS SUMMARY | 2024-09-10 19:06 | XMS_ITS | Encounter Summary ---
Author Organization [employer] Address [address] [place] [address] 7[address] [place] [address] Care Team Providers Care Mathematical Engineer Name Role Phone Unavailable Primary Care Provider Unavailabl e Encounter Details Date Type Department Care Team (Late st Contact Info) Description 08/06/2024 Orders Only [facility] [address] [place] [address] Provider, Historical, Social History Tobacco Use Types [...]
--- OUTSIDE RECORDS SUMMARY | 2024-09-10 19:06 | XMS_ITS | Encounter Summary ---
Author Organization [facility] Address [address] [place] [address] Care Team Providers Care Material Requisitioner Name Role Phone Cassandra Oconnor MD Primary Care Provider [phone] Encounter Details Date Type Department Care Team (Late Contact Info) Description 05/16/2024 Lab Requisition [facility] - Main Lab 299 [facility] [place] [address] Ray Lee MD [address] [place] [phone] Other usp (current) drug therapy Social [...] [facility] CT Scan [address] [place] [phone] 11/14/2024 1:30 PM EDT Office Visit Thoracic Surgery - [place] 299 [facility] [address] [place] [phone] Annie Hall PA 299 [facility], [address] [place], [place] [phone] documented as of this encounter Procedures Procedure Name Priority Date/Time Associated Diagnosis Comments COMPLETE BLOOD COUNT Routine 05/17/2024 6:14 AM EST Other computer terminal operator (current) drug therapy BASIC METABOLIC PANEL Routine 05/17/2024 6:14 AM EST Other usp (current) drug therapy documented in this encounter Results * (ABNORMAL) Basic metabolic panel (05/17/2024 6:14 AM EST) Sodium 142 133 - 145 mmol/L LAB CHEMISTRY METHOD 05/17/2024 11:20 AM [facility] Potassium 4.6 3.5 - 5.5 mmol/L LAB CHEMISTRY METHOD 05/17/2024 11:20 AM [facility] Chloride 104 96 - 110 mmol/L LAB CHEMISTRY METHOD 05/17/2024 11:20 AM [facility] LAB CO2 26 21 - 32 mmol/L LAB CHEMISTRY METHOD 05/17/2024 11:20 AM [facility] LAB Anion Gap 12(H) 3 - 11 LAB CHEMISTRY METHOD 05/17/2024 11:20 AM [facility] Glucose 102(H) 70 - 100 mg/dL LAB CHEMISTRY METHOD 05/17/2024 11:20 AM [facility] BUN 17 5 - 25 mg/dL LAB CHEMISTRY METHOD 05/17/2024 11:20 AM [facility] Creatinine 0.87 0.50 - 1.10 mg/dL LAB CHEMISTRY METHOD 05/17/2024 11:20 AM [facility] LAB eGFR 76 >=60 mL/min/1. 73m2 LAB CHEMISTRY METHOD 05/17/2024 11:20 AM [facility] LAB Comment:Calculation based on the??Chronic Kidney Disease Epidemiology Collaboration (CKD-EPI) equation refit??without adjustment for race. BUN/Creatinine Ratio 19.5 LAB CHEMISTRY METHOD 05/17/2024 11:20 AM [facility] Calcium 9.1 8.5 - 10.5 mg/dL LAB CHEMISTRY METHOD 05/17/2024 11:20 AM EST [facility] Blood Venous blood specimen / Unknown Venipuncture / Unknown 05/17/2024 6:14 AM EST 05/17/2024 10:16 AM EST us Ray Lee MD LAB BLOOD ORDERABLES Final Resul t [facility] 299 [place] [address], [place] [phone] * (ABNORMAL) Complete blood count (05/17/2024 6:14 AM EST) WBC 9.7 4.8 - 10.8 K/mcL LAB HEMETOLOGY METHOD 05/17/2024 10:47 AM [facility] RBC 3.50(L) 3.80 - 4.80 M/mcL LAB HEMETOLOGY METHOD 05/17/2024 10:47 AM [facility] Hemoglobin 11.0(L) 11.5 - 16.0 g/dL LAB HEMETOLOGY METHOD 05/17/2024 10:47 AM [facility] Hematocrit 36.4 35.0 - 47.0 % LAB HEMETOLOGY METHOD 05/17/2024 10:47 AM [facility] MCV 103.7(H) 79.0 - 98.0 FL LAB HEMETOLOGY METHOD 05/17/2024 10:47 AM [facility] MCH 31.3 27.0 - 32.0 pcg LAB HEMETOLOGY METHOD 05/17/2024 10:47 AM [facility] MCHC 30.2(L) 32.0 - 37.0 g/dL LAB HEMETOLOGY METHOD 05/17/2024 10:47 AM [facility] LAB RDW 17.7(H) 11.0 - 15.0 % LAB HEMETOLOGY METHOD 05/17/2024 10:47 AM EST [facility] Platelets 303 130 - 400 K/mcL LAB HEMETOLOGY METHOD 05/17/2024 10:47 AM EST [facility] MPV 11.1(H) 7.0 - 11.0 FL LAB HEMETOLOGY METHOD 05/17/2024 10:47 AM EST [facility] NRBC 0.0 <1.0 % LAB HEMETOLOGY METHOD 05/17/2024 10:47 AM EST [facility] NRBC Absolute 0.00 <0.10 K/mcL LAB HEMETOLOGY METHOD 05/17/2024 10:47 AM [facility] Blood Venous blood specimen / Unknown Venipuncture / Unknown 05/17/2024 6:14 AM EST 05/17/2024 10:14 AM EST us Ray Lee MD LAB BLOOD ORDERABLES Final Resul t [facility] [address] [place] [address], documented in this encounter Visit Diagnoses Diagnosis Other computer terminal operator (current) drug therapy documented in this encounter Care Teams Material Requisitioner Relationship Specialty Start Date End Date Cassandra Oconnor MD [address] [place] [address] PCP - General 10/26/10 documented as of this encounter
--- OUTSIDE RECORDS SUMMARY | 2024-09-10 19:06 | XMS_ITS | Encounter Summary ---
Author Organization [facility] Address [address] [place] [phone] Care Team Providers Care Private Branch Exchange Installer Name Role Phone Cassandra Oconnor MD Primary Care Provider [phone] [phone] Encounter Details Date Type Department Care Team (Late Contact Info) Description 05/03/[address] [facility] - Main Lab 299 [facility] [place] [address] Ray Lee MD [address] [place] [phone] Other intermediate (current) drug therapy Social History Tobacco Use [...] Info) Description 11/06/2024 3:30 PM EDT Appointment [facility] CT Scan [address] [place] [phone] 11/14/2024 1:30 PM EDT Office Visit Thoracic Surgery - [place] 299 [facility] [address] [place] [phone] Annie Hall PA 299 [facility], [address] [place], [place] [phone] documented as of this encounter Procedures Procedure Name Priority Date/Time Associated Diagnosis Comments COMPLETE BLOOD COUNT Routine 05/03/2024 5:52 AM EST Other rodent exterminator (current) drug therapy VALPROIC ACID LEVEL, TOTAL Routine 05/03/2024 5:52 AM EST Other rodent exterminator (current) drug therapy COMPREHENSIVE METABOLIC PANEL Routine 05/03/2024 5:52 AM EST Other intermediate (current) drug therapy documented in this encounter Results * Valproic acid level, total (05/03/2024 5:52 AM EST) Valproic Acid, Total 77 50 - 100 mcg/mL LAB CHEMISTRY METHOD 05/03/2024 8:18 AM EST [facility] Blood Venous blood specimen / Unknown Venipuncture / Unknown 05/03/2024 5:52 AM EST 05/03/2024 7:30 AM EST us Ray Lee MD LAB BLOOD ORDERABLES Final Resul t [facility] 299 [place] [address], * (ABNORMAL) Comprehensive metabolic panel (05/03/2024 5:52 AM EST) Sodium 135 133 - 145 mmol/L LAB CHEMISTRY METHOD 05/03/2024 8:18 AM EST [facility] Potassium 4.5 3.5 - 5.5 mmol/L LAB CHEMISTRY METHOD 05/03/2024 8:18 AM EST [facility] Chloride 101 96 - 110 mmol/L LAB CHEMISTRY METHOD 05/03/2024 8:18 AM EST [facility] CO2 27 21 - 32 mmol/L LAB CHEMISTRY METHOD 05/03/2024 8:18 AM EST [facility] Anion Gap 7 3 - 11 LAB CHEMISTRY METHOD 05/03/2024 8:18 AM EST [facility] Glucose 97 70 - 100 mg/dL LAB CHEMISTRY METHOD 05/03/2024 8:18 AM [facility] BUN 19 5 - 25 mg/dL LAB CHEMISTRY METHOD 05/03/2024 8:18 AM [facility] Creatinine 0.90 0.50 - 1.10 mg/dL LAB CHEMISTRY METHOD 05/03/2024 8:18 AM [facility] eGFR 73 >=60 mL/min/1. 73m2 LAB CHEMISTRY METHOD 05/03/2024 8:18 AM [facility] Comment:Calculation based on the??Chronic Kidney Disease Epidemiology Collaboration (CKD-EPI) equation refit??without adjustment for race. BUN/Creatinine Ratio 21.1 LAB CHEMISTRY METHOD 05/03/2024 8:18 AM [facility] Calcium 9.0 8.5 - 10.5 mg/dL LAB CHEMISTRY METHOD 05/03/2024 8:18 AM [facility] AST (SGOT) 34 10 - 42 unit/L LAB CHEMISTRY METHOD 05/03/2024 8:18 AM [facility] ALT (SGPT) 13 10 - 60 unit/L LAB CHEMISTRY METHOD 05/03/2024 8:18 AM [facility] Alkaline Phosphatase 81 42 - 121 unit/L LAB CHEMISTRY METHOD 05/03/2024 8:18 AM [facility] Total Protein 6.1 6.0 - 8.0 g/dL LAB CHEMISTRY METHOD 05/03/2024 8:18 AM [facility] Albumin 3.1(L) 3.2 - 5.0 g/dL LAB CHEMISTRY METHOD 05/03/2024 8:18 AM [facility] Total Bilirubin 0.2 0.0 - 1.4 mg/dL LAB CHEMISTRY METHOD 05/03/2024 8:18 AM [facility] Blood Venous blood specimen / Unknown Venipuncture / Unknown 05/03/2024 5:52 AM EST 05/03/2024 7:30 AM EST us Ray Lee MD LAB BLOOD ORDERABLES Final Resul t [facility] [address] [place] [address], [place] [phone] * (ABNORMAL) Complete blood count (05/03/2024 5:52 AM EST) WBC 10.2 4.8 - 10.8 K/mcL LAB HEMETOLOGY METHOD 05/03/2024 7:53 AM EST [facility] RBC 3.60(L) 3.80 - 4.80 M/mcL LAB HEMETOLOGY METHOD 05/03/2024 7:53 AM [facility] Hemoglobin 11.7 11.5 - 16.0 g/dL LAB HEMETOLOGY METHOD 05/03/2024 7:53 AM [facility] Hematocrit 38.3 35.0 - 47.0 % LAB HEMETOLOGY METHOD 05/03/2024 7:53 AM [facility] MCV 106.1(H) 79.0 - 98.0 FL LAB HEMETOLOGY METHOD 05/03/2024 7:53 AM [facility] MCH 32.4(H) 27.0 - 32.0 pcg LAB HEMETOLOGY METHOD 05/03/2024 7:53 AM [facility] MCHC 30.5(L) 32.0 - 37.0 g/dL LAB HEMETOLOGY METHOD 05/03/2024 7:53 AM [facility] RDW 17.5(H) 11.0 - 15.0 % LAB HEMETOLOGY METHOD 05/03/2024 7:53 AM [facility] Platelets 275 130 - 400 K/mcL LAB HEMETOLOGY METHOD 05/03/2024 7:53 AM EST [facility] MPV 10.6 7.0 - 11.0 FL LAB HEMETOLOGY METHOD 05/03/2024 7:53 AM EST [facility] NRBC 0.0 <1.0 % LAB HEMETOLOGY METHOD 05/03/2024 7:53 AM EST [facility] NRBC Absolute 0.00 <0.10 K/mcL LAB HEMETOLOGY METHOD 05/03/2024 7:53 AM EST [facility] Blood Venous blood specimen / Unknown Venipuncture / Unknown 05/03/2024 5:52 AM EST 05/03/2024 7:30 AM EST us Ray Lee MD LAB BLOOD ORDERABLES Final Resul t [facility] [address] [place] [address], documented in this encounter Visit Diagnoses Diagnosis Other intermediate (current) drug therapy documented in this encounter Care Teams Private Branch Exchange Installer Relationship Specialty Start Date End Date Cassandra Oconnor MD [address] [place] [address] PCP - General 10/26/10 documented as of this encounter
--- OUTSIDE RECORDS SUMMARY | 2024-09-10 19:06 | XMS_ITS | Encounter Summary ---
Author Organization [employer] Address [address] [place] [address] 7 [place] [address] Care Team Providers Care Loader Semiconductor Dies Name Role Phone Unavailable Primary Care Provider Unavailabl e Reason for Visit * Reason Comments Med Refill Encounter Details Date Type Department Care Team (Late st Contact Info) Description 07/03/2022 Refill [facility] [address] [place] [address] Cassandra Oconnor MD [address] [place] [address] Social History Tobacco Use Types Packs/Day Years [...]
--- OUTSIDE RECORDS SUMMARY | 2024-09-10 19:06 | XMS_ITS | Continuity of Care Document ---
Author Organization [address] [place] [address]- Care Team Providers Care Chief Psychologist Name Role Phone Denny Armstrong MD, Chelsea Muniz Primary Care Physician Encounter [facility] Date(s): 08/06/24 - 09/05/[address] [place], [place] [address] Encounter Type: Triage Allergies, Adverse Reactions, Alerts [...] Ordered Repeat number: 1 Brava barrier rings (070371) Brava barrier rings (539045), See Instructions, # 20 each, Refills 11, [...] 2:54:00 PM EDT, Route to Pharmacy Electronically, [facility], Partial fill upon patient request if the prescription is for a schedule II opioid drug., 163, cm, 09/02/21 12:26:00 EDT, Height, 90.3, kg, 09/02/21 12:26:00 EDT, Dry Weight Start Date: 09/02/21 Status: Ordered Quantity: 60.0 Unit: capsule Repeat number: 4 [employer]ura #82126 [facility] #[id number], See Instructions, # 20 each, Refills 11, [...] each Repeat number: 1 ium nitrile gloves #[id number] ium nitrile gloves #[id number], See Instructions, # 100 each, Refills 6, [...] tablet,12 Refills, Maintenance, 02/26/24 1:41:00 PM EDT, [id number], Partial fill upon patient request if the [...] Status: Ordered Repeat number: 1 nystatin topical [id number] u/gm cream 1 application, Topically, 2 times [...] Care Nurse Name: Sussy Paredes RN Position: [facility] RN Member Role: Primary Care Nurse Name: Kamari Cordon RN Position: [facility] RN Member Role: Primary Care Nurse Name: Krys Coates RN Position: [facility] ED RN W/OE and Tasks Member Role: Primary Care Nurse Name: Elizabeth Olson RN Position: [facility] RN Supv Member Role: Primary Care Nurse Name: Katerin Sterling RN Position: [facility] RN Member Role: Primary Care Nurse Name: Miguel Angel Ravi RN Position: [facility] RN Member Role: Primary Care Nurse Name: Alta Ocampo RN Position: [facility] RN Member Role: Primary Care Nurse Name: Raya Sandoval RN Position: [facility] RN Member Role: Primary Care Nurse Name: Miriam Bishop RN Position: [facility] RN Member Role: Primary Care Nurse Name: Noy Johnson RN Position: [facility] RN Member Role: Primary Care Nurse Name: Tali Haile RN Position: [facility] RN Member Role: Primary Care Nurse Name: Tatianna Newby RN Position: [facility] SN RN Member Role: Primary Care Nurse Name: Aicha Castro RN Position: [facility] RN Member Role: Primary Care Nurse Name: Karol Mims RN Position: [facility] RN Member Role: Primary Care Nurse Name: Jessi Hernandez RN Position: [facility] RN Member Role: Primary Care Nurse Name: Thalia Brito RN Position: [facility] RN Member Role: Primary Care Nurse Name: Chelsea Miles MD Position: Reference Physician Member Role: PCP Address: [address] [place] [phone]- Telecom: Name: Dena Navas RN Position: [facility] RN Member Role: Primary Care Nurse Name: Korin [place] RN Position: [facility] RN Member Role: Primary Care Nurse Name: Lian Washington RN Position: [facility] Hospital Validation Consultant Member Role: Primary Care Nurse Name: Timothy Foster RN Position: [facility] RN Member Role: Primary Care Nurse Care Team Related Persons Name: MCKAYLA VASQUEZ Insurance Providers Guarantor name: SEVERO VASQUEZ Health Plan Information #: 1 Payer: MEDICARE PART B OUTPT Member Number: NA Policy Number: NA Group Number: NA Health Plan Information #: 2 Payer: [employer] Member Number: NA Policy Number: NA Group Number: NA
--- OUTSIDE RECORDS SUMMARY | 2024-09-10 19:06 | XMS_ITS | Encounter Summary ---
Author Organization [facility] Address [id number] [place] [phone] Care Team Providers Care Sawmill Moulder Operator Name Role Phone Cassandra Oconnor MD Primary Care Provider [phone] Encounter Details Date Type Department Care Team (Late Contact Info) Description 05/23/2024 Lab Requisition [facility] - Main Lab [address] [facility] [place] [address] Ray Lee MD [address] [place] [phone] Other fpc (current) drug therapy Social History Tobacco Use [...] Info) Description 11/06/2024 3:30 PM EDT Appointment [facility] CT Scan [address] [place] [id number] 11/14/2024 1:30 PM EDT Office Visit Thoracic Surgery - [place] [address] [facility] [address] [place] [phone] Annie Hall PA [address] [facility], [address] [place], [place] [id number] documented as of this encounter Visit Diagnoses Diagnosis Other fpc (current) drug therapy documented in this encounter Care Teams Sawmill Moulder Operator Relationship Specialty Start Date End Date Cassandra Oconnor MD [address] [place] [address] PCP - General 10/26/10 documented as of this encounter
[2024-09-10 20:04] LABS: Appearance Urine Clear; Color Urine Dark Yellow; Glucose Urine UA Negative (Negative); Leukocyte Esterase Urine Negative (Negative); Nitrite Urine Negative (Negative); PH 6.5 (5.0-9.0); Urine Blood Negative (Negative); Urine Ketones Negative (Negative); Urine Protein Negative (Neg-Trace)
[2024-09-10 20:19] LABS: Bacteria Urine None Seen (None Seen); Hyaline Casts Urine 0-2 /LPF (0-2); RBC Urine 0-2 /HPF (0-2); Squamous Epithelial Cell Urine 0-2 /HPF (0-2); WBC Urine 0-5 /HPF (0-5)
--- NOTE | 2024-09-10 22:33 | P.HPHOSP_ITS ---
History of Present Illness Date of Service: 09/10/24 Attending physician on admission: Brady Blue Chief Complaint: Altered mental status, intractable abdominal pain Patient is a 59-year-old female with a past medical history significant for COPD unspecified, HTN, HLD, paroxysmal AFib on Eliquis, recurrent sigmoid colon adenocarcinoma s/p colostomy, lung cancer (07/26), bladder cancer, currently on chemotherapy followed by Dr. Ahumada, presented to the ED due to weakness, forgetfulness and intractable abdominal pain. The patient was seen here recently on 09/05/[address] that did not have any acute findings. The patient has a visiting nurse who suggested she come to the ED due to her weakness and forgetfulness. She complains of 10/10 constant generalized abdominal pain, mostly in the suprapubic region as well as low back and right hip. She has had decreased appetite but has been able to tolerate fluids. She is taking oxycodone for her pain which has been minimally helpful in she feels it is making her drowsy. Review of Systems 2 Constitutional: Constitutional: Denies chills, Reports fatigue, Denies fever(s) and Denies headache(s) Eyes: Eyes: Denies change in vision and Denies photophobia ENT: Denies headache(s), Denies nasal congestion, Denies nasal discharge and Denies sore throat Cardiovascular: Cardiovascular: Denies chest pain, Denies rapid heart rate, Denies leg edema, Denies lightheadedness and Denies dyspnea Respiratory: Respiratory: Denies chest congestion, Denies cough, Denies dyspnea and Denies wheezing Gastrointestinal: Gastrointestinal: Reports abdominal pain, Denies melena, Denies hematochezia, Denies change in stool character, Denies diarrhea, Denies nausea and Denies vomiting Genitourinary: Genitourinary: Denies hematuria, Denies dysuria and Denies urinary urgency Musculoskeletal: Musculoskeletal: Reports back pain Integumentary/Breasts: Skin/Breast: Denies rash Neurologic: Reports confusion, Denies headache(s) and Reports memory loss Psychiatric: Psychiatric: Reports confusion and Reports memory loss Endocrine: Endocrine: Reports fatigue Hematologic/Lymphatic: Hematologic/Lymphatic: Denies easy bleeding and Denies easy bruising Allergic/Immunologic: Allergic/Immunologic: Denies wheezing [facility] Medical History Acute on chronic diastolic CHF (congestive heart failure) CHF exacerbation Respiratory failure with hypoxia and hypercapnia Chronic confusion Depression Smoker Chronic back pain Colostomy in place (~2020) Personal history of nicotine dependence Polysubstance (including opioids) dependence, binge pattern Atrial fibrillation with rapid ventricular response Congestive heart failure Restrictive lung disease COPD (chronic obstructive pulmonary disease) No natural teeth COVID-19 vaccine series completed History of COVID-19 (~04/2020) Oxygen dependent Pericardial effusion Other and unspecified hyperlipidemia Essential hypertension Peripheral vascular disease Preoperative cardiovascular examination Bilateral pneumonia Adenocarcinoma of sigmoid colon (~2020) Hypernatremia GI bleed UTI (urinary tract infection) Pleural effusion, left Colon cancer (~2020) IVY (obstructive sleep apnea) Cancer of lower lobe of left lung (~2020) GERD (gastroesophageal reflux disease) Acute and chronic respiratory failure Lung cancer Obesity Hypoventilation associated with obesity Obesity hypoventilation syndrome Respiratory failure with hypoxia and hypercapnia Rotator cuff strain Hypoxia Pneumonia Restless legs syndrome (RLS) Sleep disorder Bipolar disorder (~2009) Back pain with history of spinal surgery Renal failure Fibromyalgia Depression High cholesterol PTSD (post-traumatic stress disorder) CAD (coronary artery disease) HTN (hypertension) Family History Maternal Aunt Breast cancer Stroke COPD (chronic obstructive pulmonary disease) Maternal Aunt Breast cancer COPD (chronic obstructive pulmonary disease) Mother Uterine cancer COPD (chronic obstructive pulmonary disease) HTN (hypertension) Heart disease Mental health disorder Maternal Uncle Stroke Paternal Grandmother Heart attack Parkinsons disease Sister Diabetes IBS (irritable bowel syndrome) Son HTN (hypertension) Substance use disorder Daughter HTN (hypertension) Father HTN (hypertension) Parkinsons disease Brother Heart disease Family/Other Mental health disorder Surgical History History of partial colectomy (~12/2020) History of cardiac cath (~2010) History of hysterectomy (~1990) History of cholecystectomy History of appendectomy (~1982) History of colonoscopy (~08/2020) History of lobectomy of lung (~08/2020) History of esophagogastroduodenoscopy (EGD) History of bunionectomy (~1977) History of back surgery Social History Household Members: Spouse Housing: Apartment Are you a primary workforce investment act career manager to a significant other at home: No Do you presently have visiting nurse or other home services: No Alcohol intake: never Comment: sitter at bedside Patient Tobacco Use Status: Former Tobacco user Tobacco use type: Cigarette Cigarettes Per Day: 4 Years Smoked: 40 e-Cigarette/Vaping Use: Former Use Second Hand Smoke Exposure: No Advance Directives: Yes Advance Directives on File: Yes Advance Directives Date on File: 10/05/22 Do you have a plan to hurt others: No Plan service: No Current occupational status: unemployed and disabled Cognitive needs: Yes (walker ) Hearing needs: No Vision needs: No Narrative: No smoking, alcohol or drug use Meds Allergies Allergy/AdvReac Type Severity Reaction Status Date / Time Penicillins Allergy Mild Rash Verified 09/10/24 15:48 venlafaxine [From Effexor] Allergy Mild Rash Verified 09/10/24 15:48 cyclobenzaprine Allergy Unknown Unknown Verified 09/10/24 15:48 [Cyclobenzaprine] topiramate [From Topamax] Allergy Unknown Unknown Verified 09/10/24 15:48 levofloxacin [From Levaquin] AdvReac Severe Diarrhea Verified 09/10/24 15:48 Sulfa (Sulfonamide AdvReac Severe Diarrhea Verified 09/10/24 15:48 Antibiotics) fentanyl [FENTANYL] AdvReac Intermediate Hallucinati Verified 09/10/24 15:48 ons tramadol AdvReac Intermediate Hallucinati Verified 09/10/24 15:48 ons Active Medications: Current Medications Acetaminophen (Acetaminophen 325 Mg Tablet) 975 mg PO Q6H PRN PRN Reason: Pain, Mild 1-3,fever,headache Calcium Carbonate (Calcium Carbonate 750 Mg Tab.Chew) 750 mg PO Q4H PRN PRN Reason: Heartburn Hydromorphone HCl (Hydromorphone Hcl 1 Mg/Ml Syringe) 1 mg IVPUSH Q4H PRN; Protocol PRN Reason: Pain, Severe (Pain Scale 7-10) Lactated Ringer's (Lr) 1,000 mls @ 50 mls/hr IVCONT .Q20H LONG Magnesium Hydroxide (Milk Of Magnesia 30 Ml Oral.Susp) 30 ml PO DAILY PRN PRN Reason: Constipation Melatonin (Melatonin 3 Mg Tablet) 6 mg PO BEDTIME PRN PRN Reason: Insomnia Morphine Sulfate (Morphine Sulfate 4 Mg/Ml Cartridge) 2 mg IVPUSH Q4H PRN; Protocol PRN Reason: Pain, Moderate(Pain Scale 4-6) Sodium Chloride (0.9 % Sodium Chloride Flush 3 Ml Syringe) 3 ml IVFLUSH QSHIFT [facility], [facility] Home Medications ?Medication ?Instructions ?Recorded ?Confirmed ?Last Taken ?Type blood pressure monitor #1 ea 10/22/20 08/12/24 11/28/20 History blood pressure test kit-large #1 ea 10/22/20 08/12/24 11/28/20 History divalproex 500 mg tablet,extended 1,000 mg PO BEDTIME 04/15/24 09/10/24 09/04/24 History release 24 hr metoprolol succinate 50 mg 50 mg PO DAILY 04/15/24 09/10/24 09/05/24 History tablet,extended release 24 hr fluticasone furoate 100 1 inh inhalation DAILY 04/29/24 09/10/24 09/05/24 History mcg-vilanterol 25 mcg/dose inhalation powder (Breo Ellipta) acetaminophen 500 mg tablet 500 mg PO Q12H PRN Pain 09/06/24 09/10/24 Unknown History diltiazem HCl 240 mg 240 mg PO DAILY@1900 09/06/24 09/10/24 09/05/24 History capsule,extended release 24 hr loperamide 2 mg capsule 4 mg PO QIDACHS 09/10/24 09/10/24 Unknown History Physical Exam 2 Vital Signs and Narrative: Vital Signs: Last Vital Signs Temp 97.8 F 09/10/24 22:05 Pulse 69 09/10/24 22:05 Resp 12 09/10/24 22:05 BP 131/56 L 09/10/24 22:05 Pulse Ox 96 09/10/24 22:05 O2 Del Method Nasal Cannula 09/10/24 22:05 O2 Flow Rate 1 09/10/24 22:05 BMI result Body Mass Index 31.8 General: Altered but arousable, Ox3, no acute distress Resp: CTA bilaterally CVS: S1, S2, RRR GI: +BS, tenderness throughout, no distention Skin: Warm, dry Neuro: Cranial nerves II-XII grossly intact bilaterally. Motor grossly intact bilaterally Extremities: No LE edema Psych: Appropriate affect Const: General: confusion Orientation/consciousness: confusion Eyes: Direct Ophthalmoscopy: No photophobia Neuro: General: confusion Results Labs 09/10/24 15:55 09/10/24 15:55 Labs: Laboratory Results - last 24 hr 09/10/24 09/10/24 15:55 19:51 MCV 96.3 MCH 31.7 MCHC 32.9 RDW 16.5 H Plt Count 308 D MPV 9.5 Immature Gran % (Auto) 1.2 H Neut % (Auto) 44.1 L Lymph % (Auto) 43.6 H [place] % (Auto) 9.2 Eos % (Auto) 1.4 Baso % (Auto) 0.5 Lymph # (Auto) 1.9 [place] # (Auto) 0.4 Eos # (Auto) 0.1 Baso # (Auto) 0.0 Abs Immat Gran (auto) 0.05 H Absolute Neuts (auto) 1.9 L Absolute Nucleated RBC 0.000 Nucleated RBC % (auto) 0.0 Anion Gap 15 Estim Creat Clear Calc 85.9 Estimated GFR > 60 Random Glucose 107 Calcium 8.6 Total Bilirubin 0.3 AST 26 ALT < 6 Alkaline Phosphatase 106 Ammonia 95 H Total Protein 6.4 L Albumin 3.6 Lipase 11 Urine Color Dark Yellow Urine Appearance Clear Urine pH 6.5 Ur Specific [place] 1.010 Urine Protein Negative Urine Glucose (UA) Negative Urine Ketones Negative Urine Blood Negative Urine Nitrite Negative Ur Leukocyte Esterase Negative Urine RBC 0-2 Urine WBC 0-5 Ur Squamous Epith Cells 0-2 Urine Bacteria None Seen Hyaline Casts 0-2 Influenza Type A (PCR) NEGATIVE Influenza Type B (PCR) NEGATIVE RSV RNA Qual (PCR) NEGATIVE SARS-CoV-2 RNA (RT-PCR) NEGATIVE Assessment and Plan (1) AMS (altered mental status): Status: Acute (2) Hyperammonemia: Status: Acute (3) Intractable abdominal pain: Status: Acute (4) Metastatic cancer: Status: Acute Plan Patient is a 59-year-old female with a past medical history significant for COPD unspecified, HTN, HLD, paroxysmal AFib on Eliquis, recurrent sigmoid colon adenocarcinoma s/p colostomy, lung cancer (07/26), bladder cancer, currently on chemotherapy followed by Dr. Ahumada, presented to the ED due to weakness, forgetfulness and intractable abdominal pain. Altered mental status, secondary to hyperammonemia - ammonia level 95, likely secondary to chemotherapy - LFTs normal and no history of liver issues or cirrhosis - WBC 4.3, no tachycardia, fever or infectious etiology - UA negative - COVID/flu/RSV negative - given 30 g lactulose in ED, no BM, repeat dose now - follow ammonia level Intractable abdominal pain secondary to metastatic cancer - recent abdominopelvic CT without acute findings, pain has worsened, repeat CT now - pain management with Dilaudid and morphine - monitor CBC and BMP - oncology consult, Dr. Ahumada Chronic COPD unspecified, no acute exacerbation - continue home meds HTN - continue home meds HLD - continue home meds Paroxysmal AFib - continue home meds including Eliquis mood disorder - on multiple medications, holding sedating meds for now due to AMS and sedation with pain meds, resume when appropriate Recurrent sigmoid colon adenocarcinoma, lung cancer and bladder cancer - followed by Dr. Ahumada, consult as above Med reconciliation complete upon admission DNR/DNI VTE prophylaxis: Eliquis Patient with altered mental status secondary to hyperammonemia, complicated by intractable abdominal pain secondary to metastatic cancer, requiring admission for at least 2 midnights stay for pain management, treatment and monitoring. Quality Stroke Does the patient have a stroke diagnosis?: No VTE Prior VTE?: No VTE Risk Level:: Medical - moderate - high VTE Device Contraindication: Treatment Not Indicated VTE Drug Contraindication: N/A - Med Ordered
--- NOTE | 2024-09-10 22:37 | PHA.MEDREC ---
Addendum entered by Дмитрий White [facility] 09/10/24 22:45: med rec reviewed Original Note: Pharmacy Consult ? Medication Reconciliation Pharmacy has almost finished the med rec. I went into the patients room and the patient was very confused and kept dozing off when I was asking her questions about her medications. The nurse had gotten 4 Rx bottles from the patient when she first got in and I was able to confirm the patients Clonazepam 1mg tab taken twice a day, Loperamide 2mg tabs 2 four times a day 1/2 hour before meals and at bedtime, and 2 different Rx bottles of Ondansetron 4mg tabs once daily as needed written from 09/06/24 as needed for the nausea and Ondansetron 8mg 1 every 8 hours as needed for nausea written 08/20/24, I confirmed the 4mg tablets since those were written more recently. I confirmed what I could through claims and will have morning team follow up in the morning.
[2024-09-10] MEDS: Lactated Ringers 1,000 ML 50 ML IVCONT (23:03)
--- NOTE | 2024-09-11 00:10 | PC.NURSE ---
Multiple unsuccessful attempts at obtaining an IV line. Hospitalist made aware. New orders for CT without contrast entered. Pt in Ct at the moment.
[2024-09-11] MEDS: Divalproex Sodium ER 500 MG TAB.ER.24H 1000 MG PO ×2 (00:33→21:17)
[2024-09-11] MEDS: Apixaban 5 MG TABLET PO ×3 (00:33→21:17)
--- NOTE | 2024-09-11 01:34 | PC.NURSE ---
Large amount of stool in colostomy bag. Colostomy bag changed. Peristomal site is intact with no sign of breakdown or infection. Stoma is pink and moist with no bleeding noted. No sign of discomfort or distress. Hospitalist made aware.
[2024-09-11] MEDS: HYDROmorphone HCl 1 MG/ML SYRINGE IVPUSH ×3 (01:54→21:17)
--- NOTE | 2024-09-11 03:19 | PC.NURSE ---
Took over care from MARIAMA Sue, pt reposition in bed, emptied colostomy bag of 400cc liquid stool, pt sleeping at this time.
--- NOTE | 2024-09-11 04:47 | PC.NURSE ---
Straight cath pt for 750 of urine. ua collected and sent
--- NOTE | 2024-09-11 04:57 | PC.NURSE ---
emptied colostomy bag 300ml of liquid stool
[2024-09-11 05:08] LABS: Appearance Urine Clear; Color Urine Dark Yellow; Glucose Urine UA Negative (Negative); Leukocyte Esterase Urine Negative (Negative); Nitrite Urine Negative (Negative); PH 6.5 (5.0-9.0); Specific Gravity - Urine 1.015 (1.005-1.025); Urine Blood Negative (Negative); Urine Ketones Negative (Negative); Urine Protein Negative (Neg-Trace)
[2024-09-11 05:21] LABS: MANUAL DIFF FLAG NO
[2024-09-11 05:25] LABS: Basophils Percent Auto 0.7 % (0-2); Hemoglobin 10.3 g/dl (12.0-16.0); Imm Gran Abs Auto 0.04 X10*3/uL (0.00-0.03); Lymphocytes Absolute Auto 2.4 X10*3/uL (1.2-4.9); Lymphocytes Percent Auto 58.7 % (20-40); Mean Corpuscular HGB Conc 31.2 g/dl (31.0-35.0); Mean Corpuscular Hemoglobin 31.2 pg (27.0-33.0); Mean Platelet Volume 9.9 fL (9.4-12.3); Monocytes Absolute Auto 0.5 X10*3/uL (0.1-1.2); Neutrophils Absolute Auto 1.1 x10*3/uL (2.0-8.3); Neutrophils Percent Auto 27.6 % (45-73); Platelet Count 289 X10*3/uL (160-400); Red Cell Distribution Width 16.3 % (11.0-16.0); White Blood Count 4.1 X10*3/uL (4.8-10.8)
[2024-09-11 05:40] LABS: Anion Gap 13 (12-20); Blood Urea Nitrogen 7 mg/dL (9-16); Calcium 8.6 mg/dL (8.4-10.2); Carbon Dioxide 29 mmol/L (22-29); Chloride 108 mmol/L (96-108); Creatinine Clr Calc Pharmacy 92.4; Estimated Glomerular Filt Rate > 60; Glucose Random 82 mg/dL (60-115); Potassium 3.9 mmol/L (3.3-5.1); Sodium 146 mmol/L (135-145)
[2024-09-11 05:50] VITALS: BP 120/63; PULSE 82; RESP 19; TEMP 36.9; O2SAT 98
[2024-09-11 06:52] LABS: Ammonia 130 umol/L (13-55)
[2024-09-11 07:21] LABS: Gamma Glutamyl Transpeptidase 59 U/L (7-33)
--- NOTE | 2024-09-11 08:04 | P.CNHO_ITS ---
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 She was admitted for , symptoms of shortness of breath which has been ongoing since her COVID-19 infection in April [address] chest on 07/03/2020 revealed lobular mass in the left lower lobe measuring 2.3 cm. Subcentimeter shotty lymph nodes in the pretracheal, retrovascular space but no bulky lymphadenopathy. Brain MRI in July 2020 was negative for metastasis. PET/CT showed increased uptake within the mass with an SUV max of 10.7 as well as increased uptake in the colon with an SUV max of 24. She underwent [place] left lower lobectomy, mediastinal lymphadenectomy on 09/01/2020. Pathology adenocarcinoma, invasive, tumor size 2.9 x 2.6 x 2.5 cm, poorly differentiated grade 3/4. Lymphovascular invasion present. Margins negative, all lymph nodes negative. Pathological stage pT1c, pN0, MX. Molecular studies showed; PD-L1 22C3: Expressed; tumor proportion score 5% (1+) EGFR Mutation: Not Detected BRAF Mutation: Not Detected Wilson-TRK (IHC): Not Expressed ALK Rearrangement: Not Detected ROS1 Rearrangement: Not Detected RET Rearrangement: Not Detected Colonoscopy on 08/06/2020, this diagnosed adenocarcinoma in the sigmoid colon, nonobstructing mass measuring about 4 cm. Immunostains confirmed colon carcinoma as a 2nd primary.She underwent sigmoid colectomy on 12/18/2020, pathology adenocarcinoma, tumor size 3.2 x 3.1 x 1.8 cm, moderately differentiated, tumor invades through muscularis propria into pericolorectal tissue. No lymphovascular invasion or perineural invasion. No tumor deposits. Twelve lymph nodes examined, negative. All margins negative. MSI stable. Pathological stage pT3pN0. Patient was admitted to [facility] on 07/15/22 with symptoms of small-bowel obstruction. She underwent laparotomy with resection of ileum with adhesions and enterotomy, pathology revealed- small bowel with metastatic adenocarcinoma involving serum muscular layer consistent with spread from known colonic primary. IHC revealed CK 20 positivity, CDX2 positive negative for CK7, PAXB and TTF1. This ruled out lung and mullerian adenocarcinoma. Last imaging study, CT abdomen / pelvis with contrast performed at [facility] on 08/05/2022 revealed recent laparotomy changes with inflammatory thickening abutting the abdominal wall fascia measuring 1.8 x 4.4 cm. Unchanged 2 cm nodular focus of soft tissue attenuation in the left vaginal cuff. Follow- up pelvic MRI was recommended. Pelvic MRI performed 09/27/2022 at [facility] revealed 2.6 x 2.2 cm enhancing soft tissue nodule in the left aspect of pelvis inseparable from rectum, posterior wall of the bladder and left aspect of the vaginal cuff corresponding to focus of FDG activity on prior PET-CT. Patient had previous hysterectomy. She was seen by OBGYN at [facility] who did not find any evidence of gynecological malignancy. She started preoperative chemotherapy with FOLFIRI regimen. PET-CT performed 12/21/2022 showed interval development of focal FDG avidity within soft diaphragmatic surface of left lobe of liver suspicious for metastatic disease. MRI was recommended. Interval decrease in size and resolution of FDG avidity involving the left lower hemipelvic soft tissue mass. She started preoperative chemotherapy with FOLFIRI regimen. MRI abdomen performed with contrast on 01/09/2023 revealed no suspicious liver lesions. She was since seen by Dr. Sood at [facility]. She had a repeat CT chest with contrast which did not show evidence of metastatic disease. She was seen in consultation by Urology Department at [facility] who felt that surgery would be too complicated to remove the pelvic mass. She was referred to [facility]. She was told that she was not a surgical candidate. Prior records indicate she was [place] Gal[place] [facility] for evaluation of potential bladder involvement by recurrent metastatic colon cancer.. At the time cystoscopy was obtained and was completely normal, there was no evidence of any tumor or fistula; she was advised to follow-up with urology as needed. She has been on systemic therapy with FOLFIRI, Avastin will be added from this cycle, 05/17/2023. Repeat CT abdomen/pelvis with contrast performed on 06/27/2023 revealed no significant change in soft tissue density at the inferior lateral aspect of urinary bladder measuring 1.2 cm. Interval development of vague 1 cm hypodensity superior aspect of spleen, no pathological lymph nodes or evidence of obstruction. 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 Narrative: Clarie Seth is a 59 year old female Review of Systems - Neurologic Reports confusion, Denies headache(s), Reports memory loss [facility] Medical History: Medical History (Last Reviewed 09/10/24 @ 22:37 by Geraldine Fierro PA-C) Acute and chronic respiratory failure Acute on chronic diastolic CHF (congestive heart failure) Adenocarcinoma of sigmoid colon Onset Date: ~2020 Atrial fibrillation with rapid ventricular response Back pain with history of spinal surgery Bilateral pneumonia Bipolar disorder Onset Date: ~2009 CAD (coronary artery disease) Cancer of lower lobe of left lung Onset Date: ~2020 CHF exacerbation Chronic back pain Chronic confusion Colon cancer Onset Date: ~[address] Onset Date: ~2020 Congestive heart failure COPD (chronic obstructive pulmonary disease) COVID-19 vaccine series completed Depression Depression Essential hypertension Fibromyalgia GERD (gastroesophageal reflux disease) GI bleed High cholesterol History of COVID-19 Onset Date: ~04/2020 HTN (hypertension) Hypernatremia Hypoventilation associated with obesity Hypoxia Lung cancer No natural teeth Obesity Obesity hypoventilation syndrome IVY (obstructive sleep apnea) Other and unspecified hyperlipidemia Oxygen dependent Pericardial effusion Peripheral vascular disease Personal history of nicotine dependence Pleural effusion, left Pneumonia Polysubstance (including opioids) dependence, binge pattern Preoperative cardiovascular examination PTSD (post-traumatic stress disorder) Renal failure Respiratory failure with hypoxia and hypercapnia Respiratory failure with hypoxia and hypercapnia Restless legs syndrome (RLS) Restrictive lung disease Rotator cuff strain Sleep disorder Smoker UTI (urinary tract infection) Family History: Family History (Last Reviewed 09/10/24 @ 22:37 by Geraldine Fierro PA-C) Maternal Aunt Breast cancer Stroke COPD (chronic obstructive pulmonary disease) Maternal Aunt Breast cancer COPD (chronic obstructive pulmonary disease) Mother Uterine cancer COPD (chronic obstructive pulmonary disease) HTN (hypertension) Heart disease Mental health disorder Maternal Uncle Stroke Paternal Grandmother Heart attack Parkinsons disease Sister Diabetes IBS (irritable bowel syndrome) Son HTN (hypertension) Substance use disorder Daughter HTN (hypertension) Father HTN (hypertension) Parkinsons disease Brother Heart disease Family/Other Mental health disorder Surgical History: Surgical History (Last Reviewed 09/10/24 @ 22:37 by Geraldine Fierro PA-C) History of appendectomy Onset Date: ~1982 History of back surgery History of bunionectomy Onset Date: ~1977 History of cardiac cath Onset Date: ~2010 History of cholecystectomy History of colonoscopy Onset Date: ~08/2020 History of esophagogastroduodenoscopy (EGD) History of hysterectomy Onset Date: ~1990 History of lobectomy of lung Onset Date: ~08/2020 History of partial colectomy Onset Date: ~12/2020 Social History: Social History (Last Reviewed 09/10/24 @ 22:37 by Geraldine Fierro PA-C) Living Situation History: Household Members: Spouse Housing: Apartment Are you a primary critical care rn to a significant other at home: No Do you presently have visiting nurse or other home services: No Alcohol History: Unable to assess alcohol history related to: Unable to respond Alcohol History Details: 1. How often do you have a drink containing alcohol?: a. Never AUDIT-C Alcohol total score: 0 Tobacco History: Patient Tobacco Use Status: Former Tobacco user Tobacco use type: Cigarette Years Smoked: 40 e-Cigarette/Vaping Use: Former Use Second Hand Smoke Exposure: No Advance Directives: Advance Directives: Yes Advance Directives on File: Yes Advance Directives Date on File: 10/05/22 Homicidal Assessment: Do you have a plan to hurt others: No Plan Nutrition Assessment: Nutrition Risks: No Nutritional Risk Occupation Assessmet: service: No Current occupational status: unemployed Current occupational status: disabled Home Medications and Allergies Current Medications: Current Medications Acetaminophen (Acetaminophen 325 Mg Tablet) 975 mg PO Q6H PRN PRN Reason: Pain, Mild 1-3,fever,headache Apixaban (Apixaban 5 Mg Tablet) 5 mg PO BID LONG Last Admin: 09/11/24 00:33 Dose: 5 mg Atorvastatin Calcium (Atorvastatin Calcium 80 Mg Tablet) 80 mg PO BEDTIME LONG Calcium Carbonate (Calcium Carbonate 750 Mg Tab.Chew) 750 mg PO Q4H PRN PRN Reason: Heartburn Cyanocobalamin (Cyanocobalamin (Vitamin B-12) 1,000 Mcg Tablet) 1,000 mcg PO DAILY LONG Diltiazem HCl (Diltiazem Hcl Cd 240 Mg Cap.Er.Deg) 240 mg PO DAILY@1900 LONG; Protocol Divalproex Sodium (Divalproex Sodium Er 500 Mg Tab.Er.24h) 1,000 mg PO BEDTIME [facility] Last Admin: 09/11/24 00:33 Dose: 1,000 mg Divalproex Sodium (Divalproex Sodium Er 500 Mg Tab.Er.24h) 500 mg PO DAILY [facility] Fenofibrate (Fenofibrate 160 Mg Tablet) 160 mg PO BEDTIME [facility] Ferrous Sulfate (Ferrous Sulfate 324 Mg Tablet.) 324 mg PO BID [facility] Fluticasone/Vilanterol (Fluticasone/Vilanterol 100/25 Blst.W.Dev) 1 puff INHALE DAILY [facility] Last Admin: 09/11/24 07:39 Dose: Not Given Hydralazine HCl (Hydralazine Hcl 50 Mg Tablet) 50 mg PO TID [facility]; Protocol Hydromorphone HCl (Hydromorphone Hcl 1 Mg/Ml Syringe) 1 mg IVPUSH Q4H PRN; Protocol PRN Reason: Pain, Severe (Pain Scale 7-10) Last Admin: 09/11/24 01:54 Dose: 1 mg Lactated Ringer's (Lr) 1,000 mls @ 50 mls/hr IVCONT .Q20H [facility] Last Admin: 09/10/24 23:03 Dose: 50 mls/hr Magnesium Hydroxide (Milk Of Magnesia 30 Ml Oral.Susp) 30 ml PO DAILY PRN PRN Reason: Constipation Melatonin (Melatonin 3 Mg Tablet) 6 mg PO BEDTIME PRN PRN Reason: Insomnia Metoprolol Succinate (Metoprolol Succinate Er 50 Mg Tab.Er.24h) 50 mg PO DAILY [facility]; Protocol Morphine Sulfate (Morphine Sulfate 4 Mg/Ml Cartridge) 2 mg IVPUSH Q4H PRN; Protocol PRN Reason: Pain, Moderate(Pain Scale 4-6) Omeprazole (Omeprazole 20 Mg Capsule.Dr) 20 mg PO BID@0630,1630 [facility] Last Admin: 09/11/24 05:55 Dose: Not Given Sodium Chloride (0.9 % Sodium Chloride Flush 3 Ml Syringe) 3 ml IVFLUSH QSHIFT [facility] Last Admin: 09/11/24 00:38 Dose: Not Given Tiotropium [place] (Tiotropium [place] 2.5 Mcg 1 Puff/2.5 Mcg Mist.Inhal) 2 puff INHALE DAILY [facility] Last Admin: 09/11/24 07:39 Dose: Not Given Home Medications ?Medication ?Instructions ?Recorded ?Confirmed ?Type blood pressure monitor #1 ea 10/22/20 08/12/24 History blood pressure test kit-large #1 ea 10/22/20 08/12/24 History divalproex 500 mg tablet,extended 1,000 mg PO BEDTIME 04/15/24 09/10/24 History release 24 hr metoprolol succinate 50 mg 50 mg PO DAILY 04/15/24 09/10/24 History tablet,extended release 24 hr fluticasone furoate 100 1 inh inhalation DAILY 04/29/24 09/10/24 History mcg-vilanterol 25 mcg/dose inhalation powder (Breo Ellipta) acetaminophen 500 mg tablet 500 mg PO Q12H PRN Pain 09/06/24 09/10/24 History diltiazem HCl 240 mg 240 mg PO DAILY@1900 09/06/24 09/10/24 History capsule,extended release 24 hr loperamide 2 mg capsule 4 mg PO QIDACHS 09/10/24 09/10/24 History Allergies Allergy/AdvReac Type Severity Reaction Status Date / Time Penicillins Allergy Mild Rash Verified 09/10/24 15:48 venlafaxine [From Effexor] Allergy Mild Rash Verified 09/10/24 15:48 cyclobenzaprine Allergy Unknown Unknown Verified 09/10/24 15:48 [Cyclobenzaprine] topiramate [From Topamax] Allergy Unknown Unknown Verified 09/10/24 15:48 levofloxacin [From Levaquin] AdvReac Severe Diarrhea Verified 09/10/24 15:48 Sulfa (Sulfonamide AdvReac Severe Diarrhea Verified 09/10/24 15:48 Antibiotics) fentanyl [FENTANYL] AdvReac Intermediate Hallucinati Verified 09/10/24 15:48 ons tramadol AdvReac Intermediate Hallucinati Verified 09/10/24 15:48 ons Physical Exam Vital signs: Vital Signs Temp 98.4 F 09/11/24 05:50 Pulse 82 09/11/24 05:50 Resp 19 09/11/24 05:50 BP 120/63 09/11/24 05:50 Pulse Ox 98 09/11/24 05:50 O2 Del Method Nasal Cannula 09/10/24 22:38 O2 Flow Rate 1 09/10/24 22:38 Intake & Output 09/10/24 09/11/24 09/11/24 18:59 06:59 18:59 Intake Total 1000 / 1000 Output Total 750 / 750 Balance 250 / 250 Urine Output (Average ml/kg/hr) 0.74 Intake: Intake, IV Amount 1000 / 1000 0.9 % Sodium Chloride 1,000 ml 1000 / 1000 @ 999 mls/hr IV .Q1H1M STA Rx#: [id number] Output: Output, Urine Amount 750 / 750 Other: Number of Bowel Movements 1 Urine Color Yellow Stool Ostomy Stool Amount Large Stool Color Brown Stool Consistency Loose Weight 83.915 kg Weight 83.915 kg Hem/Onc Consult Result - Labs CBC & Chem 7: 09/11/24 03:45 09/11/24 03:45 Labs: Short CBC 09/10/24 09/11/24 Range/Units 15:55 03:45 WBC 4.3 L 4.1 L (4.8-10.8) X10*3/uL Hgb 11.0 L 10.3 L (12.0-16.0) g/dl Hct 33.4 L 33.0 L (37.0-47.0) % Plt Count 308 D 289 (160-400) X10*3/uL BMP 09/10/24 09/11/24 15:55 03:45 Sodium 143 146 H Potassium 4.1 3.9 Chloride 105 108 Carbon Dioxide 27 29 BUN 10 7 L Creatinine 0.72 0.67 Calcium 8.6 8.6 Liver Function 09/10/24 09/11/24 Range/Units 15:55 03:45 Total Bilirubin 0.3 (0.0-1.0) mg/dL GGT 59 H (7-33) U/L AST 26 (5-31) U/L ALT < 6 (0-31) U/L Alkaline Phosphatase 106 (39-117) U/L Albumin 3.6 (3.5-5.0) g/dL Urine 09/10/24 09/11/24 Range/Units 19:51 04:54 Urine Color Dark Yellow Dark Yellow Urine Appearance Clear Clear Urine pH 6.5 6.5 (5.0-9.0) Ur Specific [place] 1.010 1.015 (1.005-1.025) Urine Protein Negative Negative (Neg-Trace) mg/dL Urine Glucose (UA) Negative Negative (Negative) mg/dL Assessment and Plan Patient Active problem list reviewed?: Yes (1) Adenocarcinoma of sigmoid colon Problem details: s/p resection , and has permanant Colostomy Status: Chronic Assessment and plan: 1. This is a 58-year-old woman with recurrent sigmoid colon adenocarcinoma. She underwent sigmoid colectomy on 12/18/2020 at [facility], pathology adenocarcinoma, tumor size 3.2 x 3.1 x 1.8 cm, moderately differentiated, tumor invades through muscularis propria into pericolorectal tissue. No lymphovascular invasion or perineural invasion. No tumor deposits. Twelve lymph nodes examined, negative. All margins negative. MSI stable. Pathological stage pT3pN0. In July 2022 she underwent laparotomy with resection of ileum with adhesions and enterotomy, pathology revealed- small bowel with metastatic adenocarcinoma involving serum muscular layer consistent with spread from known colonic primary. She has been on systemic therapy with FOLFIRI, Avastin added from 05/17/2023 since she was not considered a surgical candidate at [facility] or in [place]. Five FU pump has been discontinued in February 2024. She is currently admitted for altered mental status, somnolence and found to have elevated ammonia levels. Patient has had intermittent periods of hypersomnolence and confusion. This appeared to be related to chemotherapy and therefore 5 FU pump was discontinued last year. She got a long break from chemotherapy this year and her mental status improved. She received 1 cycle of chemotherapy in August and she has recurrent symptoms of metabolic encephalopathy. Ammonia level is elevated. She has been started on lactulose. Liver enzymes are normal, GGT has been added. Chemotherapy may have to be permanently stopped. 2. Abdominal pain and urinary retention. She has a 2.9 cm soft tissue density at the posterior aspect of urinary bladder, reported as suspicious for bladder mass on previous CT scan from 09/05/2024. Repeat CT abdomen/pelvis shows vertebral body compression deformity at L1, hepatomegaly. No bowel obstruction. She would need a cystoscopy/urological evaluation. I will follow with you. I thank you for the consultation. - Time Spent With Patient Time Spent with Patient (in minutes): 30 Additional Coding: - Additional E/M codes Complex E/M visit Add On: CPT G2211
[2024-09-11 08:20] VITALS: BP 90/59; PULSE 75; RESP 14; TEMP 36.6; O2SAT 95
--- NOTE | 2024-09-11 08:23 | P.PNIM_ITS ---
Subjective Subjective Date of Service: 09/11/24 Interval History: Seen and examined this morning Interval history: Pt oriented to self, place, time but confused as to why she is in the hospital. She recalls having back pain, but otherwise seems confused. Ammonia level increased to 130. She is now remaining urine, required multiple straight catheterizations overnight. Otherwise unable to ascertain reliable history. Seen at bedside with Dr. Ahumada. Review of Systems Review of Systems: Yes Unobtainable due to mental status Physical Exam 2 Vital Signs: Vital Signs: Last Vital Signs Temp 97.8 F 09/11/24 08:20 Pulse 75 09/11/24 08:20 Resp 14 09/11/24 08:20 BP 90/59 L 09/11/24 08:20 Pulse Ox 95 09/11/24 08:20 O2 Del Method Nasal Cannula 09/11/24 08:20 O2 Flow Rate 2 09/11/24 08:20 BMI result Body Mass Index 31.8 Constitutional - Awake and Alert, No apparent distress Eyes - PERRLA, EOMI Cardiovascular - S1S2, RRR, No edema Respiratory - Normal lung expansion, Normal respiratory effort, No respiratory distress, CTA bilaterally Gastrointestinal - NT / ND; +BS; No rebound or guarding. +asterixis Extremities - no calf tenderness bilaterally, no swelling Skin - Warm/Dry, no jaundice Neurological - Alert & oriented x3, but disoriented to situation, foggy Psychological - Appropriate affect Objective Data Active Medications Acetaminophen (Acetaminophen 325 Mg Tablet) 975 mg PO Q6H PRN PRN Reason: Pain, Mild 1-3,fever,headache Apixaban (Apixaban 5 Mg Tablet) 5 mg PO BID [facility] Last Admin: 09/11/24 00:33 Dose: 5 mg Documented By: IVIS Atorvastatin Calcium (Atorvastatin Calcium 80 Mg Tablet) 80 mg PO BEDTIME [facility] Calcium Carbonate (Calcium Carbonate 750 Mg Tab.Chew) 750 mg PO Q4H PRN PRN Reason: Heartburn Cyanocobalamin (Cyanocobalamin (Vitamin B-12) 1,000 Mcg Tablet) 1,000 mcg PO DAILY [facility] Diltiazem HCl (Diltiazem Hcl Cd 240 Mg Cap.Er.Deg) 240 mg PO DAILY@1900 [facility]; Protocol Divalproex Sodium (Divalproex Sodium Er 500 Mg Tab.Er.24h) 1,000 mg PO BEDTIME [facility] Last Admin: 09/11/24 00:33 Dose: 1,000 mg Documented By: IVIS Divalproex Sodium (Divalproex Sodium Er 500 Mg Tab.Er.24h) 500 mg PO DAILY [facility] Fenofibrate (Fenofibrate 160 Mg Tablet) 160 mg PO BEDTIME [facility] Ferrous Sulfate (Ferrous Sulfate 324 Mg Tablet.) 324 mg PO BID [facility] Fluticasone/Vilanterol (Fluticasone/Vilanterol 100/25 Blst.W.Dev) 1 puff INHALE DAILY [facility] Last Admin: 09/11/24 07:39 Dose: Not Given Documented By: PEDRO LUIS Non-Admin Reason: pharmacy called for med Hydralazine HCl (Hydralazine Hcl 50 Mg Tablet) 50 mg PO TID [facility]; Protocol Hydromorphone HCl (Hydromorphone Hcl 1 Mg/Ml Syringe) 1 mg IVPUSH Q4H PRN; Protocol PRN Reason: Pain, Severe (Pain Scale 7-10) Last Admin: 09/11/24 01:54 Dose: 1 mg Documented By: IVIS Lactated Ringer's (Lr) 1,000 mls @ 50 mls/hr IVCONT .Q20H [facility] Last Admin: 09/10/24 23:03 Dose: 50 mls/hr Documented By: IVIS Magnesium Hydroxide (Milk Of Magnesia 30 Ml Oral.Susp) 30 ml PO DAILY PRN PRN Reason: Constipation Melatonin (Melatonin 3 Mg Tablet) 6 mg PO BEDTIME PRN PRN Reason: Insomnia Metoprolol Succinate (Metoprolol Succinate Er 50 Mg Tab.Er.24h) 50 mg PO DAILY [facility]; Protocol Morphine Sulfate (Morphine Sulfate 4 Mg/Ml Cartridge) 2 mg IVPUSH Q4H PRN; Protocol PRN Reason: Pain, Moderate(Pain Scale 4-6) Omeprazole (Omeprazole 20 Mg Capsule.Dr) 20 mg PO BID@0630,1630 [facility] Last Admin: 09/11/24 05:55 Dose: Not Given Documented By: WENDY Non-Admin Reason: pt npo Sodium Chloride (0.9 % Sodium Chloride Flush 3 Ml Syringe) 3 ml IVFLUSH QSHIFT [facility] Last Admin: 09/11/24 00:38 Dose: Not Given Documented By: IVIS Non-Admin Reason: IV Running Tiotropium [place] (Tiotropium [place] 2.5 Mcg 1 Puff/2.5 Mcg Mist.Inhal) 2 puff INHALE DAILY [facility] Last Admin: 09/11/24 07:39 Dose: Not Given Documented By: PEDRO LUIS Non-Admin Reason: pharmacy called for med Labs 09/11/24 03:45 09/11/24 03:45 Labs: Laboratory Results - last 24 hr 09/10/24 09/10/24 09/11/24 15:55 19:51 03:45 MCV 96.3 100.0 H MCH 31.7 31.2 MCHC 32.9 31.2 RDW 16.5 H 16.3 H Plt Count 308 D 289 MPV 9.5 9.9 Immature Gran % (Auto) 1.2 H 1.0 H Neut % (Auto) 44.1 L 27.6 L Lymph % (Auto) 43.6 H 58.7 H [place] % (Auto) 9.2 11.0 Eos % (Auto) 1.4 1.0 Baso % (Auto) 0.5 0.7 Lymph # (Auto) 1.9 2.4 [place] # (Auto) 0.4 0.5 Eos # (Auto) 0.1 0.0 Baso # (Auto) 0.0 0.0 Abs Immat Gran (auto) 0.05 H 0.04 H Absolute Neuts (auto) 1.9 L 1.1 L Absolute Nucleated RBC 0.000 0.000 Nucleated RBC % (auto) 0.0 0.0 Anion Gap 15 13 Estim Creat Clear Calc 85.9 92.4 Estimated GFR > 60 > 60 Random Glucose 107 82 Calcium 8.6 8.6 Total Bilirubin 0.3 GGT 59 H AST 26 ALT < 6 Alkaline Phosphatase 106 Ammonia 95 H Total Protein 6.4 L Albumin 3.6 Lipase 11 Urine Color Dark Yellow Urine Appearance Clear Urine pH 6.5 Ur Specific [place] 1.010 Urine Protein Negative Urine Glucose (UA) Negative Urine Ketones Negative Urine Blood Negative Urine Nitrite Negative Ur Leukocyte Esterase Negative Urine RBC 0-2 Urine WBC 0-5 Ur Squamous Epith Cells 0-2 Urine Bacteria None Seen Hyaline Casts 0-2 Influenza Type A (PCR) NEGATIVE Influenza Type B (PCR) NEGATIVE RSV RNA Qual (PCR) NEGATIVE SARS-CoV-2 RNA (RT-PCR) NEGATIVE 09/11/24 09/11/24 04:54 06:40 MCV MCH MCHC RDW Plt Count MPV Immature Gran % (Auto) Neut % (Auto) Lymph % (Auto) [place] % (Auto) Eos % (Auto) Baso % (Auto) Lymph # (Auto) [place] # (Auto) Eos # (Auto) Baso # (Auto) Abs Immat Gran (auto) Absolute Neuts (auto) Absolute Nucleated RBC Nucleated RBC % (auto) Anion Gap Estim Creat Clear Calc Estimated GFR Random Glucose Calcium Total Bilirubin GGT AST ALT Alkaline Phosphatase Ammonia 130 H Total Protein Albumin Lipase Urine Color Dark Yellow Urine Appearance Clear Urine pH 6.5 Ur Specific [place] 1.015 Urine Protein Negative Urine Glucose (UA) Negative Urine Ketones Negative Urine Blood Negative Urine Nitrite Negative Ur Leukocyte Esterase Negative Urine RBC Urine WBC Ur Squamous Epith Cells Urine Bacteria Hyaline Casts Influenza Type A (PCR) Influenza Type B (PCR) RSV RNA Qual (PCR) SARS-CoV-2 RNA (RT-PCR) Assessment and Plan (1) Acute hepatic encephalopathy: Status: Acute (2) Intractable abdominal pain: Status: Acute (3) Metastatic cancer: Status: Acute (4) Acute retention of urine: Status: Resolved (5) Bladder mass: Status: Inactive Plan 59-year-old female with a past medical history significant for COPD unspecified, HTN, HLD, paroxysmal AFib on Eliquis, recurrent sigmoid colon adenocarcinoma s/p colostomy, lung cancer (07/26), bladder cancer, currently on chemotherapy followed by Dr. Ahumada, presented to the ED due to weakness, forgetfulness and intractable abdominal pain. Altered toxic metabolic encephalopathy due to hepatic encephalopathy ammonia level 95--> 130 this morning likely secondary to chemotherapy LFTs normal and no history of liver issues or cirrhosis WBC 4.3, no tachycardia, fever or infectious etiology Lactulose 20g TID, goal 2-3 loose stools per day Hematology input appreciated-will discontinue chemotherapy Follow ammonia level Acute obstructive urinary retention 2/2 bladder tumor- 2.9 cm bladder mass noted on CT abd/pelvis 4/3 Doty catheter Strict I&O Urology consult- per oncology recommending cystoscopy Intractable abdominal pain secondary to metastatic cancer Ct abd/pelvis negative for any acute intracranial abnormality-chronic findings including left-sided colostomy with redemonstrated parastomal hernia without obstruction, hepatomegaly, and age-indeterminate vertebral body compression deformity redemonstrated at L1 pain management with Dilaudid and morphine using pain scale monitor CBC and BMP Oncology input appreciated. Will discontinue chemotherapy Age-indeterminate pathologic compression fracture L1 Pain management as above Chronic COPD unspecified, no acute exacerbation continue home meds HTN continue home meds HLD continue home meds Paroxysmal AFib continue home meds including Eliquis mood disorder on multiple medications, holding sedating meds for now due to AMS and sedation with pain meds, resume when appropriate Recurrent sigmoid colon adenocarcinoma, lung cancer and bladder cancer followed by Dr. Ahumada, plan as above Med reconciliation complete upon admission DNR/DNI VTE prophylaxis: Zairarizwanstephane Ongoing inpatient stay due to acute toxic metabolic encephalopathy requiring lactulose and close monitoring of mentation. She will also require IV pain medications related to malignancy and pathologic compression fracture as well as expert consultation Quality Stroke Does the patient have a stroke diagnosis?: No VTE Prior VTE?: No VTE Risk Level:: Medical - moderate - high VTE Device Contraindication: Treatment Not Indicated VTE Drug Contraindication: N/A - Med Ordered
[2024-09-11] MEDS: Ferrous Sulfate 324 MG TABLET.DR PO ×2 (09:05→21:17)
[2024-09-11] MEDS: Divalproex Sodium ER 500 MG TAB.ER.24H PO (09:06)
[2024-09-11] MEDS: Lactated Ringers 1,000 ML 100 ML IVCONT (09:06)
[2024-09-11] MEDS: Cyanocobalamin (Vitamin B-12) 1,000 MCG TABLET 1000 MCG PO (09:06)
[2024-09-11 09:15] VITALS: RESP 20
[2024-09-11] MEDS: 0.9 % Sodium Chloride Flush 3 ML SYRINGE IVFLUSH ×2 (09:15→21:18)
[2024-09-11] MEDS: Lactulose 20 GM/30 ML SOLUTION PO (09:16)
[2024-09-11 12:00] VITALS: BP 136/72; PULSE 73; RESP 16; TEMP 36.5; O2SAT 97
--- NOTE | 2024-09-11 12:54 | PC.NURSE ---
Assumed care of pt at 0700. Pt a/ox3- unsure why she is at hospital, respirations even and unlabored, no increased wob/sob noted, maintaining O2 sat on 2L [place] high 90s. Pt cleaned up and repositioned, colostomy bag emptied- documented in I&Os in worklist. Per night RN, pt retaining urine and needed straight cath overnight. JUAN Cook made aware of pt retaining urine, bladder scan read 187- plan for polo cath and consult with urology. Pt remains NPO d/t AMS throughout night- pt a/ox3 and able to manage secretions/no aspiration, per JUAN Cook ok to switch to regular diet. Pt took morning medications whole with water- no wet cough/aspiration. Pt at bedside, updated on plan of care for pt. Call manley within reach, all needs met at this time.
--- NOTE | 2024-09-11 14:23 | MHC.CM.PN ---
pt lives with hgusband has home 02 has a casting room helper and own transport home
--- NOTE | 2024-09-11 14:36 | PC.NURSE ---
Pt endorsing the urge to urinate. Up oob with walker to commode one assisted. Pt able to urinate 200mls of urine- PVR bladder scan read <10 mls. Per JUAN Cook, hold off on polo catheter, will reassess. Pt ambulate with steady gait with walker- mild sob while standing, able to recover when sitting, maintaining O2 sats mid 90s. Call manley within reach, all needs met at this time.
--- NOTE | 2024-09-11 16:25 | PC.NURSE ---
BP meds held d/t pt soft BPs. BPs reflected in worklist, per JUAN reynoso to hold BP meds.
[2024-09-11 17:22] VITALS: BP 140/71; PULSE 75; RESP 16; TEMP 36.3; O2SAT 92
[2024-09-11 20:33] VITALS: BP 162/76; PULSE 80; RESP 18; TEMP 36.7; O2SAT 94
[2024-09-11 20:55] VITALS: BMI 32.8
[2024-09-11] MEDS: Melatonin 3 MG TABLET 6 MG PO (21:16)
[2024-09-11] MEDS: dilTIAZem HCL CD 240 MG CAP.ER.DEG PO (21:17)
[2024-09-11] MEDS: Fenofibrate 160 MG TABLET PO (21:17)
[2024-09-11] MEDS: Atorvastatin Calcium 80 MG TABLET PO (21:17)
[2024-09-11] MEDS: hydrALAZINE HCl 50 MG TABLET PO (21:17)
[2024-09-12 04:00] VITALS: BP 119/59; PULSE 70; RESP 17; TEMP 36.1; O2SAT 97
[2024-09-12] MEDS: Omeprazole 20 MG CAPSULE.DR PO ×2 (05:58→16:05)
[2024-09-12 07:02] VITALS: BP 114/61; PULSE 80; RESP 16; TEMP 36.1; O2SAT 94
[2024-09-12 07:10] LABS: MANUAL DIFF FLAG NO
[2024-09-12 07:14] LABS: Basophils Percent Auto 0.5 % (0-2); Eosinophils Absolute Auto 0.1 X10*3/uL (0.0-0.4); Eosinophils Percent Auto 1.2 % (0-4); Hematocrit 32.6 % (37.0-47.0); Hemoglobin 10.7 g/dl (12.0-16.0); Imm Gran Abs Auto 0.03 X10*3/uL (0.00-0.03); Imm Gran Pct Auto 0.7 % (0.0-0.4); Lymphocytes Percent Auto 48.3 % (20-40); Mean Corpuscular HGB Conc 32.8 g/dl (31.0-35.0); Mean Corpuscular Hemoglobin 31.5 pg (27.0-33.0); Mean Corpuscular Volume 95.9 fL (80.0-98.0); Mean Platelet Volume 9.6 fL (9.4-12.3); Monocytes Absolute Auto 0.4 X10*3/uL (0.1-1.2); Monocytes Percent Auto 10.9 % (2-11); Neutrophils Absolute Auto 1.6 x10*3/uL (2.0-8.3); Neutrophils Percent Auto 38.4 % (45-73); Platelet Count 284 X10*3/uL (160-400); Red Cell Distribution Width 16.3 % (11.0-16.0)
[2024-09-12 07:37] LABS: Alanine Aminotransferase < 6 U/L (0-31); Albumin Level 3.4 g/dL (3.5-5.0); Alkaline Phosphatase 95 U/L (39-117); Anion Gap 12 (12-20); Aspartate Amino Transferase 27 U/L (5-31); Bilirubin Direct 0.1 mg/dL (0.0-0.5); Bilirubin Total 0.4 mg/dL (0.0-1.0); Blood Urea Nitrogen 13 mg/dL (9-16); Calcium 9.1 mg/dL (8.4-10.2); Carbon Dioxide 29 mmol/L (22-29); Chloride 106 mmol/L (96-108); Creatinine Clr Calc Pharmacy 108.5; Estimated Glomerular Filt Rate > 60; Glucose Random 99 mg/dL (60-115); Sodium 143 mmol/L (135-145)
[2024-09-12 07:39] LABS: Ammonia 74 umol/L (13-55)
[2024-09-12] MEDS: Divalproex Sodium ER 500 MG TAB.ER.24H PO (08:28)
[2024-09-12] MEDS: hydrALAZINE HCl 50 MG TABLET PO ×2 (08:29→20:39)
[2024-09-12] MEDS: Lactulose 20 GM/30 ML SOLUTION PO (08:29)
[2024-09-12] MEDS: Ferrous Sulfate 324 MG TABLET.DR PO ×2 (08:29→20:40)
[2024-09-12] MEDS: Apixaban 5 MG TABLET PO ×2 (08:29→20:39)
[2024-09-12] MEDS: Metoprolol Succinate ER 50 MG TAB.ER.24H PO (08:29)
[2024-09-12] MEDS: 0.9 % Sodium Chloride Flush 3 ML SYRINGE IVFLUSH ×2 (08:32→14:29)
[2024-09-12] MEDS: Cyanocobalamin (Vitamin B-12) 1,000 MCG TABLET 1000 MCG PO (08:34)
[2024-09-12] MEDS: HYDROmorphone HCl 1 MG/ML SYRINGE IVPUSH ×3 (09:41→20:33)
--- NOTE | 2024-09-12 10:59 | P.PNIM_ITS ---
Subjective Subjective Date of Service: 09/12/24 Interval History: still with pain Physical Exam 2 Vital Signs: Vital Signs: Last Vital Signs Temp 96.9 F 09/12/24 07:02 Pulse 80 09/12/24 07:02 Resp 16 09/12/24 07:02 BP 114/61 09/12/24 07:02 Pulse Ox 94 09/12/24 07:02 O2 Del Method Nasal Cannula 09/12/24 07:02 O2 Flow Rate 2 09/12/24 07:02 BMI result Body Mass Index 32.8 Constitutional - Awake and Alert, No apparent distress Eyes - PERRLA, EOMI Cardiovascular - S1S2, RRR, No edema Respiratory - Normal lung expansion, Normal respiratory effort, No respiratory distress, CTA bilaterally Gastrointestinal - NT / ND; +BS; No rebound or guarding. +asterixis Extremities - no calf tenderness bilaterally, no swelling Skin - Warm/Dry, no jaundice Neurological - Alert & oriented x3, but disoriented to situation, foggy Psychological - Appropriate affect Objective Data Active Medications Acetaminophen (Acetaminophen 325 Mg Tablet) 975 mg PO Q6H PRN PRN Reason: Pain, Mild 1-3,fever,headache Apixaban (Apixaban 5 Mg Tablet) 5 mg PO BID [facility] Last Admin: 09/12/24 08:29 Dose: 5 mg Documented By: HERBER Atorvastatin Calcium (Atorvastatin Calcium 80 Mg Tablet) 80 mg PO BEDTIME [facility] Last Admin: 09/11/24 21:17 Dose: 80 mg Documented By: AMBAR Calcium Carbonate (Calcium Carbonate 750 Mg Tab.Chew) 750 mg PO Q4H PRN PRN Reason: Heartburn Cyanocobalamin (Cyanocobalamin (Vitamin B-12) 1,000 Mcg Tablet) 1,000 mcg PO DAILY [facility] Last Admin: 09/12/24 08:34 Dose: 1,000 mcg Documented By: HERBER Diltiazem HCl (Diltiazem Hcl Cd 240 Mg Cap.Er.Deg) 240 mg PO DAILY@1900 [facility]; Protocol Last Admin: 09/11/24 21:17 Dose: 240 mg Documented By: AMBAR Divalproex Sodium (Divalproex Sodium Er 500 Mg Tab.Er.24h) 1,000 mg PO BEDTIME [facility] Last Admin: 09/11/24 21:17 Dose: 1,000 mg Documented By: AMBAR Divalproex Sodium (Divalproex Sodium Er 500 Mg Tab.Er.24h) 500 mg PO DAILY [facility] Last Admin: 09/12/24 08:28 Dose: 500 mg Documented By: HERBER Fenofibrate (Fenofibrate 160 Mg Tablet) 160 mg PO BEDTIME [facility] Last Admin: 09/11/24 21:17 Dose: 160 mg Documented By: AMBAR Ferrous Sulfate (Ferrous Sulfate 324 Mg Tablet.Dr) 324 mg PO BID [facility] Last Admin: 09/12/24 08:29 Dose: 324 mg Documented By: HERBER Fluticasone/Vilanterol (Fluticasone/Vilanterol 100/25 Blst.W.Dev) 1 puff INHALE DAILY [facility] Last Admin: 09/11/24 07:39 Dose: Not Given Documented By: PEDRO LUIS Non-Admin Reason: pharmacy called for med Hydralazine HCl (Hydralazine Hcl 50 Mg Tablet) 50 mg PO TID [facility]; Protocol Last Admin: 09/12/24 08:29 Dose: 50 mg Documented By: HERBER Hydromorphone HCl (Hydromorphone Hcl 1 Mg/Ml Syringe) 1 mg IVPUSH Q4H PRN; Protocol PRN Reason: Pain, Severe (Pain Scale 7-10) Last Admin: 09/12/24 09:41 Dose: 1 mg Documented By: HERBER Lactulose (Lactulose 20 Gm/30 Ml Solution) 20 gm PO DAILY [facility] Last Admin: 09/12/24 08:29 Dose: 20 gm Documented By: HERBER Magnesium Hydroxide (Milk Of Magnesia 30 Ml Oral.Susp) 30 ml PO DAILY PRN PRN Reason: Constipation Melatonin (Melatonin 3 Mg Tablet) 6 mg PO BEDTIME PRN PRN Reason: Insomnia Last Admin: 09/11/24 21:16 Dose: 6 mg Documented By: AMBAR Metoprolol Succinate (Metoprolol Succinate Er 50 Mg Tab.Er.24h) 50 mg PO DAILY [facility]; Protocol Last Admin: 09/12/24 08:29 Dose: 50 mg Documented By: HERBER Morphine Sulfate (Morphine Sulfate 4 Mg/Ml Cartridge) 2 mg IVPUSH Q4H PRN; Protocol PRN Reason: Pain, Moderate(Pain Scale 4-6) Omeprazole (Omeprazole 20 Mg Capsule.) 20 mg PO BID@0630,3510 [facility] Last Admin: 09/12/24 05:58 Dose: 20 mg Documented By: AMBAR Sodium Chloride (0.9 % Sodium Chloride Flush 3 Ml Syringe) 3 ml IVFLUSH QSHIFT [facility] Last Admin: 09/12/24 08:32 Dose: 3 ml Documented By: HERBER Tiotropium [place] (Tiotropium [place] 2.5 Mcg 1 Puff/2.5 Mcg Mist.Inhal) 2 puff INHALE DAILY [facility] Last Admin: 09/11/24 07:39 Dose: Not Given Documented By: PEDRO LUIS Non-Admin Reason: pharmacy called for med Labs 09/12/24 07:02 09/12/24 07:02 Labs: Laboratory Results - last 24 hr 09/12/24 07:02 MCV 95.9 MCH 31.5 MCHC 32.8 RDW 16.3 H Plt Count 284 MPV 9.6 Immature Gran % (Auto) 0.7 H Neut % (Auto) 38.4 L Lymph % (Auto) 48.[address] % (Auto) 10.9 Eos % (Auto) 1.2 Baso % (Auto) 0.5 Lymph # (Auto) 2.0 [place] # (Auto) 0.4 Eos # (Auto) 0.1 Baso # (Auto) 0.0 Abs Immat Gran (auto) 0.03 Absolute Neuts (auto) 1.6 L Absolute Nucleated RBC 0.000 Nucleated RBC % (auto) 0.0 Anion Gap 12 Estim Creat Clear Calc 108.5 Estimated GFR > 60 Random Glucose 99 Calcium 9.1 Total Bilirubin 0.4 Direct Bilirubin 0.1 AST 27 ALT < 6 Alkaline Phosphatase 95 Ammonia 74 H Total Protein 6.0 L Albumin 3.4 L Assessment and Plan (1) Anxiety: Status: Acute Plan 59F PMH COPD, hypertension, hyperlipidemia, paroxysmal AFib on Eliquis, recurrent sigmoid colon adenocarcinoma status post colostomy, lung cancer, bladder cancer presented with altered mental status and abdominal pain Acute toxic metabolic encephalopathy due to hyper ammonia Medication related - suspected due to be due to chemotherapy, also possibly Depakote though has been on it chronically, and currently mental status much improved despite continuing Depakote and discontinuing chemo Urinary obstruction Due to bladder mass, Doty catheter, eval Intractable abdominal pain due to metastatic cancer Oncology follow up ? Hospice eval Age indeterminate L1 fracture Pain control Chronic COPD Stable Paroxysmal AFib Cardizem, apixaban Toprol DVT prophylaxis with apixaban DNR/DNI reason for continued hospitalization: Pain control Quality Stroke Does the patient have a stroke diagnosis?: No VTE Prior VTE?: No VTE Risk Level:: Medical - moderate - high VTE Device Contraindication: Treatment Not Indicated VTE Drug Contraindication: N/A - Med Ordered
--- NOTE | 2024-09-12 11:42 | MHC.CM.PN ---
A Hospice consult has been referred to [facility] as requested by Trevor DP Home with resumption of [facility] or [facility]. An informational meeting has been requested. Patient will transport home privately.
[2024-09-12] MEDS: Fluticasone/Vilanterol 100/25 BLST.W.DEV 1 PUFF INHALE (12:11)
[2024-09-12] MEDS: Tiotropium Bromide 2.5 mcg 1 PUFF/2.5 MCG MIST.INHAL 2 PUFF INHALE (12:11)
[2024-09-12] MEDS: Acetaminophen 325 MG TABLET 975 MG PO (12:21)
[2024-09-12] MEDS: clonazePAM 1 MG TABLET PO ×2 (12:21→20:40)
[2024-09-12 12:23] VITALS: PULSE 83; RESP 18; O2SAT 94
[2024-09-12] MEDS: Morphine Sulfate 4 MG/ML CARTRIDGE 2 MG IVPUSH (13:30)
[2024-09-12 15:42] VITALS: BP 94/53; PULSE 87; RESP 16; TEMP 36.3; O2SAT 98
[2024-09-12] MEDS: ondansetron HCL 4 MG/2 ML VIAL IVPUSH ×2 (17:03→20:38)
--- NOTE | 2024-09-12 17:21 | PM.UROCN ---
History of Present Illness Consult details Consult date: 09/12/24 Narrative: CC: bladder mass 59-year-old female History significant for AFib on Eliquis, recurrent sigmoid colon adenocarcinoma with colostomy, lung cancer, currently on chemotherapy followed by Dr. Ahumada. Presented with weakness, forgetfulness and mental status changes. Admitted for evaluation Recent imaging includes - 07/30 PET-CT with question of left pelvic sidewall avidity raising concerns for recurrent colon adenocarcinoma. - 09/27 CT scan 2.9 cm soft tissue density at the posterior aspect of the urinary bladder, suspicious for a bladder mass Recommend outpatient cystoscopy with the next 2-3 weeks Review of Systems Constitutional: Constitutional: Reports as per HPI and Reports no additional constitutional complaints Cardiovascular: Cardiovascular: Reports as per HPI and Reports no additional cardiovascular complaints Respiratory: Respiratory: Reports as per HPI and Reports no additional respiratory complaints Gastrointestinal: Gastrointestinal: Reports as per HPI and Reports no additional gastrointestinal complaints Genitourinary: Genitourinary: Reports as per HPI Musculoskeletal: Musculoskeletal: Reports no additional musculoskeletal complaints and Reports as per HPI Neurologic: Reports system reviewed and no additional complaints, except as documented and Reports as per HPI [facility] Past Medical History Medical History Acute on chronic diastolic CHF (congestive heart failure) CHF exacerbation Respiratory failure with hypoxia and hypercapnia Chronic confusion Depression Smoker Chronic back pain Colostomy in place (~2020) Personal history of nicotine dependence Polysubstance (including opioids) dependence, binge pattern Atrial fibrillation with rapid ventricular response Congestive heart failure Restrictive lung disease COPD (chronic obstructive pulmonary disease) No natural teeth COVID-19 vaccine series completed History of COVID-19 (~04/2020) Oxygen dependent Pericardial effusion Other and unspecified hyperlipidemia Essential hypertension Peripheral vascular disease Preoperative cardiovascular examination Bilateral pneumonia Adenocarcinoma of sigmoid colon (~2020) Hypernatremia GI bleed UTI (urinary tract infection) Pleural effusion, left Colon cancer (~2020) IVY (obstructive sleep apnea) Cancer of lower lobe of left lung (~2020) GERD (gastroesophageal reflux disease) Acute and chronic respiratory failure Lung cancer Obesity Hypoventilation associated with obesity Obesity hypoventilation syndrome Respiratory failure with hypoxia and hypercapnia Rotator cuff strain Hypoxia Pneumonia Restless legs syndrome (RLS) Sleep disorder Bipolar disorder (~2009) Back pain with history of spinal surgery Renal failure Fibromyalgia Depression High cholesterol PTSD (post-traumatic stress disorder) CAD (coronary artery disease) HTN (hypertension) Family History Family History Maternal Aunt Breast cancer Stroke COPD (chronic obstructive pulmonary disease) Maternal Aunt Breast cancer COPD (chronic obstructive pulmonary disease) Mother Uterine cancer COPD (chronic obstructive pulmonary disease) HTN (hypertension) Heart disease Mental health disorder Maternal Uncle Stroke Paternal Grandmother Heart attack Parkinsons disease Sister Diabetes IBS (irritable bowel syndrome) Son HTN (hypertension) Substance use disorder Daughter HTN (hypertension) Father HTN (hypertension) Parkinsons disease Brother Heart disease Family/Other Mental health disorder Surgical History Surgical History History of partial colectomy (~12/2020) History of cardiac cath (~2010) History of hysterectomy (~1990) History of cholecystectomy History of appendectomy (~1982) History of colonoscopy (~08/2020) History of lobectomy of lung (~08/2020) History of esophagogastroduodenoscopy (EGD) History of bunionectomy (~1977) History of back surgery Social History Social History Household Members: Spouse Housing: Apartment Are you a primary caretaker grounds to a significant other at home: No Do you presently have visiting nurse or other home services: Yes ([facility] and [employer]) Unable to assess alcohol history related to: Unable to respond Alcohol intake: never Comment: sitter at bedside Patient Tobacco Use Status: Former Tobacco user Tobacco use type: Cigarette Years Smoked: 40 e-Cigarette/Vaping Use: Former Use Second Hand Smoke Exposure: No Advance Directives Date on File: 10/05/22 service: No Current occupational status: unemployed and disabled Cognitive needs: Yes (walker ) Hearing needs: No Vision needs: No Meds Allergies Allergy/AdvReac Type Severity Reaction Status Date / Time Penicillins Allergy Mild Rash Verified 09/10/24 15:48 venlafaxine [From Effexor] Allergy Mild Rash Verified 09/10/24 15:48 cyclobenzaprine Allergy Unknown Unknown Verified 09/10/24 15:48 [Cyclobenzaprine] topiramate [From Topamax] Allergy Unknown Unknown Verified 09/10/24 15:48 levofloxacin [From Levaquin] AdvReac Severe Diarrhea Verified 09/10/24 15:48 Sulfa (Sulfonamide AdvReac Severe Diarrhea Verified 09/10/24 15:48 Antibiotics) fentanyl [FENTANYL] AdvReac Intermediate Hallucinati Verified 09/10/24 15:48 ons tramadol AdvReac Intermediate Hallucinati Verified 09/10/24 15:48 ons Active Medications: Current Medications Acetaminophen (Acetaminophen 325 Mg Tablet) 975 mg PO Q6H PRN PRN Reason: Pain, Mild 1-3,fever,headache Last Admin: 09/12/24 12:21 Dose: 975 mg Apixaban (Apixaban 5 Mg Tablet) 5 mg PO BID [facility] Last Admin: 09/12/24 08:29 Dose: 5 mg Atorvastatin Calcium (Atorvastatin Calcium 80 Mg Tablet) 80 mg PO BEDTIME [facility] Last Admin: 09/11/24 21:17 Dose: 80 mg Calcium Carbonate (Calcium Carbonate 750 Mg Tab.Chew) 750 mg PO Q4H PRN PRN Reason: Heartburn Clonazepam (Clonazepam 1 Mg Tablet) 1 mg PO BID [facility] Last Admin: 09/12/24 12:21 Dose: 1 mg Cyanocobalamin (Cyanocobalamin (Vitamin B-12) 1,000 Mcg Tablet) 1,000 mcg PO DAILY [facility] Last Admin: 09/12/24 08:34 Dose: 1,000 mcg Diltiazem HCl (Diltiazem Hcl Cd 240 Mg Cap.Er.Deg) 240 mg PO DAILY@1900 LONG; Protocol Last Admin: 09/11/24 21:17 Dose: 240 mg Divalproex Sodium (Divalproex Sodium Er 500 Mg Tab.Er.24h) 1,000 mg PO BEDTIME [facility] Last Admin: 09/11/24 21:17 Dose: 1,000 mg Divalproex Sodium (Divalproex Sodium Er 500 Mg Tab.Er.24h) 500 mg PO DAILY [facility] Last Admin: 09/12/24 08:28 Dose: 500 mg Duloxetine HCl (Duloxetine Hcl 60 Mg Capsule.Dr) 60 mg PO BEDTIME [facility] Fenofibrate (Fenofibrate 160 Mg Tablet) 160 mg PO BEDTIME [facility] Last Admin: 09/11/24 21:17 Dose: 160 mg Ferrous Sulfate (Ferrous Sulfate 324 Mg Tablet.Dr) 324 mg PO BID [facility] Last Admin: 09/12/24 08:29 Dose: 324 mg Fluticasone/Vilanterol (Fluticasone/Vilanterol 100/25 Blst.W.Dev) 1 puff INHALE DAILY [facility] Last Admin: 09/12/24 12:11 Dose: 1 puff Hydralazine HCl (Hydralazine Hcl 50 Mg Tablet) 50 mg PO TID [facility]; Protocol Last Admin: 09/12/24 15:56 Dose: Not Given Hydromorphone HCl (Hydromorphone Hcl 1 Mg/Ml Syringe) 1 mg IVPUSH Q4H PRN; Protocol PRN Reason: Pain, Severe (Pain Scale 7-10) Last Admin: 09/12/24 14:24 Dose: 1 mg Lactulose (Lactulose 20 Gm/30 Ml Solution) 20 gm PO DAILY [facility] Last Admin: 09/12/24 08:29 Dose: 20 gm Magnesium Hydroxide (Milk Of Magnesia 30 Ml Oral.Susp) 30 ml PO DAILY PRN PRN Reason: Constipation Melatonin (Melatonin 3 Mg Tablet) 6 mg PO BEDTIME PRN PRN Reason: Insomnia Last Admin: 09/11/24 21:16 Dose: 6 mg Metoprolol Succinate (Metoprolol Succinate Er 50 Mg Tab.Er.24h) 50 mg PO DAILY [facility]; Protocol Last Admin: 09/12/24 08:29 Dose: 50 mg Morphine Sulfate (Morphine Sulfate 4 Mg/Ml Cartridge) 2 mg IVPUSH Q4H PRN; Protocol PRN Reason: Pain, Moderate(Pain Scale 4-6) Last Admin: 09/12/24 13:30 Dose: 2 mg Omeprazole (Omeprazole 20 Mg Capsule.) 20 mg PO BID@0630,1630 [facility] Last Admin: 09/12/24 16:05 Dose: 20 mg Ondansetron HCl (Ondansetron Hcl 4 Mg/2 Ml Vial) 4 mg IVPUSH Q8H PRN PRN Reason: Nausea and Vomiting Last Admin: 09/12/24 17:03 Dose: 4 mg Sodium Chloride (0.9 % Sodium Chloride Flush 3 Ml Syringe) 3 ml IVFLUSH QSHIFT [facility] Last Admin: 09/12/24 14:29 Dose: 3 ml Tiotropium [place] (Tiotropium [place] 2.5 Mcg 1 Puff/2.5 Mcg Mist.Inhal) 2 puff INHALE DAILY LONG Last Admin: 09/12/24 12:11 Dose: 2 puff Home Medications ?Medication ?Instructions ?Recorded ?Confirmed ?Last Taken ?Type blood pressure monitor #1 ea 10/22/20 08/12/24 11/28/20 History blood pressure test kit-large #1 ea 10/22/20 08/12/24 11/28/20 History divalproex 500 mg tablet,extended 1,000 mg PO BEDTIME 04/15/24 09/10/24 09/04/24 History release 24 hr metoprolol succinate 50 mg 50 mg PO DAILY 04/15/24 09/10/24 09/05/24 History tablet,extended release 24 hr fluticasone furoate 100 1 inh inhalation DAILY 04/29/24 09/10/24 09/05/24 History mcg-vilanterol 25 mcg/dose inhalation powder (Breo Ellipta) acetaminophen 500 mg tablet 500 mg PO Q12H PRN Pain 09/06/24 09/10/24 Unknown History diltiazem HCl 240 mg 240 mg PO DAILY@1900 09/06/24 09/10/24 09/05/24 History capsule,extended release 24 hr loperamide 2 mg capsule 4 mg PO QIDACHS 09/10/24 09/10/24 Unknown History Physical Exam Vital Signs: Vital Signs: Last Vital Signs Temp 97.4 F 09/12/24 15:42 Pulse 87 09/12/24 15:42 Resp 16 09/12/24 15:42 BP 94/53 L 09/12/24 15:42 Pulse Ox 98 09/12/24 15:42 O2 Del Method Nasal Cannula 09/12/24 15:42 O2 Flow Rate 2 09/12/24 15:42 BMI result Body Mass Index 32.8 Const: General: cooperative, healthy appearing, comfortable and no acute distress Orientation/consciousness: patient oriented x3 HEENT: Face and sinus: Yes normal facial exam Mouth: moist mucous membranes Neck: Neck: Yes normal visual inspection, Yes full ROM and Yes trachea midline Chest: Chest palpation & inspection: normal inspection of the chest Resp: Effort & Inspection: normal respiratory effort, able to speak in complete sentences and no respiratory distress GI: Inspection: Yes normal to inspection Back/Spine/Pelvis: Cervical Spine: normal cervical lordosis Thoracic/Lumbar Spine: thoracic and lumbar spine normal to inspection Skin: General skin exam: no rashes or lesions noted Neuro: General: patient oriented x3, tone normal and moves all extremities Extrem: General: Yes normal to inspection and Yes capillary refill normal Results Labs 09/12/24 07:02 09/12/24 07:02 Labs: Abnormal lab results 09/12/24 Range/Units 07:02 WBC 4.0 L (4.8-10.8) X10*3/uL RBC 3.40 L (4.20-5.50) X10*6/uL Hgb 10.7 L (12.0-16.0) g/dl Hct 32.6 L (37.0-47.0) % RDW 16.3 H (11.0-16.0) % Immature Gran % (Auto) 0.7 H (0.0-0.4) % Neut % (Auto) 38.4 L (45-73) % Lymph % (Auto) 48.3 H (20-40) % Absolute Neuts (auto) 1.6 L (2.0-8.3) x10*3/uL Ammonia 74 H (13-55) umol/L Total Protein 6.0 L (6.5-8.0) g/dL Albumin 3.4 L (3.5-5.0) g/dL Short CBC 09/12/24 Range/Units 07:02 WBC 4.0 L (4.8-10.8) X10*3/uL Hgb 10.7 L (12.0-16.0) g/dl Hct 32.6 L (37.0-47.0) % Plt Count 284 (160-400) X10*3/uL BMP 09/12/24 07:02 Sodium 143 Potassium 4.0 Chloride 106 Carbon Dioxide 29 BUN 13 Creatinine 0.58 Calcium 9.1 Liver Function 09/12/24 Range/Units 07:02 Total Bilirubin 0.4 (0.0-1.0) mg/dL Direct Bilirubin 0.1 (0.0-0.5) mg/dL AST 27 (5-31) U/L ALT < 6 (0-31) U/L Alkaline Phosphatase 95 (39-117) U/L Albumin 3.4 L (3.5-5.0) g/dL Urine 09/10/24 09/11/24 Range/Units 19:51 04:54 Urine Color Dark Yellow Dark Yellow Urine Appearance Clear Clear Urine pH 6.5 6.5 (5.0-9.0) Ur Specific [place] 1.010 1.015 (1.005-1.025) Urine Protein Negative Negative (Neg-Trace) mg/dL Urine Glucose (UA) Negative Negative (Negative) mg/dL All other labs normal. Assessment and Plan (1) Bladder mass: Status: Inactive Plan Outpatient cystoscopy Procedures Date of Service Date of Service: 09/12/24
[2024-09-12 20:00] VITALS: BP 113/74; PULSE 72; RESP 18; TEMP 36.2; O2SAT 95
[2024-09-12] MEDS: Melatonin 3 MG TABLET 6 MG PO (20:40)
[2024-09-12] MEDS: Atorvastatin Calcium 80 MG TABLET PO (20:40)
[2024-09-12] MEDS: dilTIAZem HCL CD 240 MG CAP.ER.DEG PO (20:40)
[2024-09-12] MEDS: Divalproex Sodium ER 500 MG TAB.ER.24H 1000 MG PO (20:40)
[2024-09-12] MEDS: Fenofibrate 160 MG TABLET PO (20:40)
[2024-09-12] MEDS: DULoxetine HCl 60 MG CAPSULE.DR PO (20:40)
[2024-09-13] MEDS: 0.9 % Sodium Chloride Flush 3 ML SYRINGE IVFLUSH ×2 (00:10→06:16)
[2024-09-13 03:13] VITALS: BP 128/63; PULSE 64; RESP 16; TEMP 36.4; O2SAT 95
[2024-09-13 05:11] VITALS: RESP 17
[2024-09-13] MEDS: HYDROmorphone HCl 1 MG/ML SYRINGE IVPUSH ×2 (05:11→09:12)
[2024-09-13] MEDS: Omeprazole 20 MG CAPSULE.DR PO (06:08)
[2024-09-13 07:19] VITALS: BP 93/58; PULSE 72; RESP 16; TEMP 36.7; O2SAT 95
[2024-09-13 07:33] LABS: MANUAL DIFF FLAG NO
[2024-09-13 07:59] LABS: Basophils Percent Auto 0.5 % (0-2); Eosinophils Percent Auto 0.7 % (0-4); Hematocrit 34.2 % (37.0-47.0); Hemoglobin 10.8 g/dl (12.0-16.0); Imm Gran Abs Auto 0.06 X10*3/uL (0.00-0.03); Lymphocytes Absolute Auto 2.6 X10*3/uL (1.2-4.9); Lymphocytes Percent Auto 44.6 % (20-40); Mean Corpuscular HGB Conc 31.6 g/dl (31.0-35.0); Mean Corpuscular Hemoglobin 31.1 pg (27.0-33.0); Mean Corpuscular Volume 98.6 fL (80.0-98.0); Monocytes Absolute Auto 0.8 X10*3/uL (0.1-1.2); Monocytes Percent Auto 13.3 % (2-11); Neutrophils Absolute Auto 2.3 x10*3/uL (2.0-8.3); Neutrophils Percent Auto 39.9 % (45-73); Platelet Count 315 X10*3/uL (160-400); Red Blood Count 3.47 X10*6/uL (4.20-5.50); Red Cell Distribution Width 16.4 % (11.0-16.0); White Blood Count 5.8 X10*3/uL (4.8-10.8)
[2024-09-13 08:07] LABS: Anion Gap 14 (12-20); Blood Urea Nitrogen 6 mg/dL (9-16); Calcium 8.9 mg/dL (8.4-10.2); Carbon Dioxide 29 mmol/L (22-29); Chloride 106 mmol/L (96-108); Creatinine Clr Calc Pharmacy 104.9; Estimated Glomerular Filt Rate > 60; Glucose Random 97 mg/dL (60-115); Potassium 3.8 mmol/L (3.3-5.1); Sodium 145 mmol/L (135-145)
[2024-09-13] MEDS: Fluticasone/Vilanterol 100/25 BLST.W.DEV 1 PUFF INHALE (08:08)
[2024-09-13] MEDS: Tiotropium Bromide 2.5 mcg 1 PUFF/2.5 MCG MIST.INHAL 2 PUFF INHALE (08:08)
[2024-09-13 08:14] VITALS: PULSE 75; RESP 16; O2SAT 97
[2024-09-13 09:02] VITALS: BP 90/56
[2024-09-13] MEDS: Apixaban 5 MG TABLET PO (09:02)
[2024-09-13] MEDS: Cyanocobalamin (Vitamin B-12) 1,000 MCG TABLET 1000 MCG PO (09:02)
[2024-09-13] MEDS: Divalproex Sodium ER 500 MG TAB.ER.24H PO (09:02)
[2024-09-13] MEDS: clonazePAM 1 MG TABLET PO (09:02)
[2024-09-13] MEDS: Ferrous Sulfate 324 MG TABLET.DR PO (09:02)
[2024-09-13] MEDS: Lactulose 20 GM/30 ML SOLUTION PO (09:03)
--- NOTE | 2024-09-13 09:14 | P.DS_ITS ---
DS: Providers Provider Date of Service: 09/13/24 Date of admission: 09/10/24 22:08 Date of discharge: 09/13/24 Primary care physician: Chelsea Armstrnog MD Consults: 09/10/24 22:27 Consult to Hematology / Oncology Routine Consulting Provider: Aliza Ahumada Reason for consultation: pt followed by you, worsening abd pain, hyperammonemia Has provider been notified: No 09/11/24 10:32 Consult to Urology Routine Consulting Provider: [facility] Reason for consultation: retention, bladder CA- onc recommending cysto DS: Diagnosis Discharge Diagnosis (1) Bladder mass: Status: Inactive DS: Summary Hospital Course Hospital Course: from initial hpi: 59-year-old female with a past medical history significant for COPD unspecified, HTN, HLD, paroxysmal AFib on Eliquis, recurrent sigmoid colon adenocarcinoma s/p colostomy, lung cancer (07/26), bladder cancer, currently on chemotherapy followed by Dr. Ahumada, presented to the ED due to weakness, forgetfulness and intractable abdominal pain. The patient was seen here recently on 09/05/[address] that did not have any acute findings. The patient has a visiting nurse who suggested she come to the ED due to her weakness and forgetfulness. She complains of 10/10 constant generalized abdominal pain, mostly in the suprapubic region as well as low back and right hip. She has had decreased appetite but has been able to tolerate fluids. She is taking oxycodone for her pain which has been minimally helpful in she feels it is making her drowsy. hospital course: Patient was admitted for acute toxic metabolic encephalopathy due to hyper ammonia which was felt to be medication related suspected be due to her chemotherapy versus Depakote. Both have been discontinued. For intractable abdominal pain due to her metastatic cancer discussion was had with patient and Oncology and decision made to discontinue disease directed treatments and transitioned to home hospice. Pre urinary obstruction due to bladder mass Doty catheter was inserted and can continue for comfort. For paroxysmal atrial fibrillation was continued on Cardizem, apixaban, metoprolol. For hyper ammonia was treated with lactulose and mental status returned to baseline she will continue lactulose at home. Time Attestation Discharge Coordination Time (in mins): 34 Quality: Safe Use of Opioids Does Pt have an Active Cancer Diagnosis on the Problem List?: Yes Opioid Measure Date for [facility] Report: 08/14/24 Opioid Measure Time for [facility] Report: 09:14 Quality: Stroke Does the patient have a stroke diagnosis?: No Physical Exam Vital Signs: Vital Signs: Last Vital Signs Temp 98.0 F 09/13/24 07:19 Pulse 75 09/13/24 08:14 Resp 16 09/13/24 08:14 BP 90/56 L 09/13/24 09:02 Pulse Ox 95 09/13/24 07:19 O2 Del Method Nasal Cannula 09/13/24 07:19 O2 Flow Rate 2 09/13/24 07:19 BMI result Body Mass Index 32.8 General: AO X 3, no acute distress Resp: CTA bilateral, no accessory muscles used CVS: S1,S2,RRR GI: soft, non tender, non distended Neuro: motor grossly intact, alert Psych: appropriate affect, appropriate insight DS: Data Data Completed and Pending Completed studies during hospitalization [Text1]: Procedures Assistance with Respiratory Ventilation, Less than 24 Consecutive Hours, Continuous Positive Airway Pressure (11/18/20) Excision of Left Lower Lung Lobe, Percutaneous Approach, Diagnostic (07/03/20) Labs on day of discharge: Laboratory Results - last 24 hr 09/13/24 05:49 WBC 5.8 RBC 3.47 L Hgb 10.8 L Hct 34.2 L MCV 98.6 H MCH 31.1 MCHC 31.6 RDW 16.4 H Plt Count 315 MPV 10.0 Immature Gran % (Auto) 1.0 H Neut % (Auto) 39.9 L Lymph % (Auto) 44.6 H [place] % (Auto) 13.3 H Eos % (Auto) 0.7 Baso % (Auto) 0.5 Lymph # (Auto) 2.6 [place] # (Auto) 0.8 Eos # (Auto) 0.0 Baso # (Auto) 0.0 Abs Immat Gran (auto) 0.06 H Absolute Neuts (auto) 2.3 Absolute Nucleated RBC 0.000 Nucleated RBC % (auto) 0.0 Sodium 145 Potassium 3.8 Chloride 106 Carbon Dioxide 29 Anion Gap 14 BUN 6 L Creatinine 0.60 Estim Creat Clear Calc 104.9 Estimated GFR > 60 Random Glucose 97 Calcium 8.9 Discharge Plan Discharge Anticipated Discharge Date/Time: 09/13/24 09:08 Patient Disposition: Hospice - Home Discharge Diagnosis: ams, metastatic colon ca Referrals: Chelsea Miles MD [Primary Care Provider] - 1 Week Discharge Medications: New lactulose 10 gram/15 mL Solution 20 g PO DAILY Qty: 2700 0RF oxycodone 10 mg tablet 10 mg PO Q6H PRN (Reason: pain (scale score 7-10)) Qty: 30 0RF Rx Instructions: Partial Fill upon patient request. Continued Incruse Ellipta 62.5 mcg/actuation blister with device 1 inh inhalation DAILY Qty: 30 11RF (DME) Ultra-Light Rollator Misc See Rx Instructions .Route Qty: 1 0RF Rx Instructions: As directed (DME) Tub ledge vertical grab bar/ not suction bar. See Rx Instructions .Route .MEDSUPPLY Qty: 1 0RF Rx Instructions: As directed riboflavin (vitamin B2) 400 mg tablet 400 mg PO DAILY 30 Days Qty: 30 6RF metoclopramide HCl 10 mg Tablet 10 mg PO Q6H PRN (Reason: Nausea) Qty: 30 1RF (DME) heavy duty adjustable hand rail See Rx Instructions .Route .MEDSUPPLY Qty: 1 0RF Rx Instructions: As directed ferrous sulfate [FeroSul] 325 mg (65 mg iron) tablet 325 mg PO BID Qty: 60 3RF omeprazole 20 mg capsule,delayed release(DR/EC) 20 mg PO BID@0630,1630 90 Days Qty: 180 2RF duloxetine 60 mg capsule,delayed release(DR/EC) 60 mg PO BEDTIME Qty: 30 2RF Eliquis 5 mg tablet 5 mg PO BID 90 Days Qty: 180 2RF cyanocobalamin (vitamin B-12) [Vitamin B-12] 1,000 mcg tablet 1,000 mcg PO DAILY Qty: 90 0RF clonazepam 1 mg tablet 1 mg PO BID 30 Days Qty: 60 0RF acetaminophen 500 mg Tablet 500 mg PO Q12H PRN (Reason: Pain) ondansetron 4 mg tablet,disintegrating 4 mg PO DAILY PRN (Reason: nausea and vomiting) 5 Days Qty: 10 0RF metoprolol succinate 50 mg tablet extended release 24 hr 50 mg PO DAILY fluticasone furoate-vilanterol [Breo Ellipta] 100-25 mcg/dose blister with device 1 inh inhalation DAILY loperamide 2 mg capsule 4 mg PO QIDACHS [place] blood pressure test kit-large Kit See Rx Instructions .ROUTE DIRECTED Qty: 1 Rx Instructions: As directed ([facility] blood pressure monitor Kit See Rx Instructions .ROUTE .MEDSUPPLY Qty: 1 Rx Instructions: As directed Discontinued divalproex 500 mg tablet extended release 24 hr 500 mg PO DAILY Qty: 90 1RF fenofibrate 160 mg tablet 160 mg PO BEDTIME Qty: 90 0RF atorvastatin 80 mg tablet 80 mg PO BEDTIME Qty: 30 2RF hydralazine 50 mg tablet 50 mg PO TID Qty: 90 2RF diltiazem HCl 240 mg capsule,extended release 24hr 240 mg PO DAILY@1900 oxycodone 5 mg Tablet 5 mg PO Q4H PRN (Reason: Pain (Scale Score 7-10)) Qty: 60 0RF Rx Instructions: Partial Fill upon patient request. divalproex 500 mg tablet extended release 24 hr 1,000 mg PO BEDTIME Discharge Orders: Discharge Order (Routine); Ordered 09/13/24 Ordered By: Michelet Moore Diet: Advance to usual diet Activity on Discharge: As tolerated Stand Alone Forms: Patient Portal Discharge page Print Language: Tongan Care Plan Goals: End of life care, symptom management Health Concerns: Metastatic cancer Plan of Treatment: Setting up home hospice, Assessment: see above
--- NOTE | 2024-09-13 09:36 | MHC.CM.PN ---
Addendum entered by Zita Webber 09/13/24 16:04: [facility] HAS CONFIRMED THEY WILL ADMIT PT TO SERVICE TOMORROW PT STATED HER CONCERN WAS PAIN MANAGEMENT, HOSPITALIST PROVIDED PAIN MEDS CM SPOKE TO PTS , MCKAYLA, WHO INDICATED HE WOULD CLAIMS AUDITOR PTS SCRIPTS BEFORE PICKING HER UP TODAY [facility] AWARE OF DC Original Note: IRMA MET WITH PT TO DISCUSS DC PLANNING SHE REPORTS THE PLAN IS TO GO HOME TODAY AND SIGN ONTO HOSPICE SHE REPORTS HER WILL TRANSPORT
--- NOTE | 2024-09-13 10:44 | PM.HEMONCPN ---
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 She was admitted for , symptoms of shortness of breath which has been ongoing since her COVID-19 infection in [address] chest on 07/03/2020 revealed lobular mass in the left lower lobe measuring 2.3 cm. Subcentimeter shotty lymph nodes in the pretracheal, retrovascular space but no bulky lymphadenopathy. Brain MRI in July 2020 was negative for metastasis. PET/CT showed increased uptake within the mass with an SUV max of 10.7 as well as increased uptake in the colon with an SUV max of 24. She underwent [place] left lower lobectomy, mediastinal lymphadenectomy on 09/01/2020. Pathology adenocarcinoma, invasive, tumor size 2.9 x 2.6 x 2.5 cm, poorly differentiated grade 3/4. Lymphovascular invasion present. Margins negative, all lymph nodes negative. Pathological stage pT1c, pN0, MX. Molecular studies showed; PD-L1 22C3: Expressed; tumor proportion score 5% (1+) EGFR Mutation: Not Detected BRAF Mutation: Not Detected Wilson-TRK (IHC): Not Expressed ALK Rearrangement: Not Detected ROS1 Rearrangement: Not Detected RET Rearrangement: Not Detected Colonoscopy on 08/06/2020, this diagnosed adenocarcinoma in the sigmoid colon, nonobstructing mass measuring about 4 cm. Immunostains confirmed colon carcinoma as a 2nd primary.She underwent sigmoid colectomy on 12/18/2020, pathology adenocarcinoma, tumor size 3.2 x 3.1 x 1.8 cm, moderately differentiated, tumor invades through muscularis propria into pericolorectal tissue. No lymphovascular invasion or perineural invasion. No tumor deposits. Twelve lymph nodes examined, negative. All margins negative. MSI stable. Pathological stage pT3pN0. Patient was admitted to [facility] on 07/15/22 with symptoms of small-bowel obstruction. She underwent laparotomy with resection of ileum with adhesions and enterotomy, pathology revealed- small bowel with metastatic adenocarcinoma involving serum muscular layer consistent with spread from known colonic primary. IHC revealed CK 20 positivity, CDX2 positive negative for CK7, PAXB and TTF1. This ruled out lung and mullerian adenocarcinoma. Last imaging study, CT abdomen / pelvis with contrast performed at [facility] on 08/05/2022 revealed recent laparotomy changes with inflammatory thickening abutting the abdominal wall fascia measuring 1.8 x 4.4 cm. Unchanged 2 cm nodular focus of soft tissue attenuation in the left vaginal cuff. Follow-up pelvic MRI was recommended. Pelvic MRI performed 09/27/2022 at [facility] revealed 2.6 x 2.2 cm enhancing soft tissue nodule in the left aspect of pelvis inseparable from rectum, posterior wall of the bladder and left aspect of the vaginal cuff corresponding to focus of FDG activity on prior PET-CT. Patient had previous hysterectomy. She was seen by OBGYN at [facility] who did not find any evidence of gynecological malignancy. She started preoperative chemotherapy with FOLFIRI regimen. PET-CT performed 12/21/2022 showed interval development of focal FDG avidity within soft diaphragmatic surface of left lobe of liver suspicious for metastatic disease. MRI was recommended. Interval decrease in size and resolution of FDG avidity involving the left lower hemipelvic soft tissue mass. She started preoperative chemotherapy with FOLFIRI regimen. MRI abdomen performed with contrast on 01/09/2023 revealed no suspicious liver lesions. She was since seen by Dr. Sood at [facility]. She had a repeat CT chest with contrast which did not show evidence of metastatic disease. She was seen in consultation by Urology Department at [facility] who felt that surgery would be too complicated to remove the pelvic mass. She was referred to [facility]. She was told that she was not a surgical candidate. Prior records indicate she was seen by Dr. Gallego at [facility] back in Oct, 2022 for evaluation of potential bladder involvement by recurrent metastatic colon cancer.. At the time cystoscopy was obtained and was completely normal, there was no evidence of any tumor or fistula; she was advised to follow-up with urology as needed. She has been on systemic therapy with FOLFIRI, Avastin will be added from this cycle, 05/17/2023. Repeat CT abdomen/pelvis with contrast performed on 06/27/2023 revealed no significant change in soft tissue density at the inferior lateral aspect of urinary bladder measuring 1.2 cm. Interval development of vague 1 cm hypodensity superior aspect of spleen, no pathological lymph nodes or evidence of obstruction. 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 She is awake and alert. She is still complaints of abdominal pain. She has been able to ambulate and urinate. She has decided to go home with hospice care. Review of Systems - Neurologic Reports no additional neurologic complaints, Reports as per HPI, Reports confusion, Denies headache(s), Reports memory loss [facility] Medical History: Medical History (Last Reviewed 09/10/24 @ 22:37 by Geraldine Fierro PA-C) Acute and chronic respiratory failure Acute on chronic diastolic CHF (congestive heart failure) Adenocarcinoma of sigmoid colon Onset Date: ~2020 Atrial fibrillation with rapid ventricular response Back pain with history of spinal surgery Bilateral pneumonia Bipolar disorder Onset Date: ~2009 CAD (coronary artery disease) Cancer of lower lobe of left lung Onset Date: ~2020 CHF exacerbation Chronic back pain Chronic confusion Colon cancer Onset Date: ~[address] Onset Date: ~2020 Congestive heart failure COPD (chronic obstructive pulmonary disease) COVID-19 vaccine series completed Depression Depression Essential hypertension Fibromyalgia GERD (gastroesophageal reflux disease) GI bleed High cholesterol History of COVID-19 Onset Date: ~04/2020 HTN (hypertension) Hypernatremia Hypoventilation associated with obesity Hypoxia Lung cancer No natural teeth Obesity Obesity hypoventilation syndrome IVY (obstructive sleep apnea) Other and unspecified hyperlipidemia Oxygen dependent Pericardial effusion Peripheral vascular disease Personal history of nicotine dependence Pleural effusion, left Pneumonia Polysubstance (including opioids) dependence, binge pattern Preoperative cardiovascular examination PTSD (post-traumatic stress disorder) Renal failure Respiratory failure with hypoxia and hypercapnia Respiratory failure with hypoxia and hypercapnia Restless legs syndrome (RLS) Restrictive lung disease Rotator cuff strain Sleep disorder Smoker UTI (urinary tract infection) Family History: Family History (Last Reviewed 09/10/24 @ 22:37 by Geraldine Fierro PA-C) Maternal Aunt Breast cancer Stroke COPD (chronic obstructive pulmonary disease) Maternal Aunt Breast cancer COPD (chronic obstructive pulmonary disease) Mother Uterine cancer COPD (chronic obstructive pulmonary disease) HTN (hypertension) Heart disease Mental health disorder Maternal Uncle Stroke Paternal Grandmother Heart attack Parkinsons disease Sister Diabetes IBS (irritable bowel syndrome) Son HTN (hypertension) Substance use disorder Daughter HTN (hypertension) Father HTN (hypertension) Parkinsons disease Brother Heart disease Family/Other Mental health disorder Surgical History: Surgical History (Last Reviewed 09/10/24 @ 22:37 by Geraldine Fierro PA-C) History of appendectomy Onset Date: ~1982 History of back surgery History of bunionectomy Onset Date: ~1977 History of cardiac cath Onset Date: ~2010 History of cholecystectomy History of colonoscopy Onset Date: ~08/2020 History of esophagogastroduodenoscopy (EGD) History of hysterectomy Onset Date: ~1990 History of lobectomy of lung Onset Date: ~08/2020 History of partial colectomy Onset Date: ~12/2020 Social History: Social History (Last Reviewed 09/10/24 @ 22:37 by Geraldine Fierro PA-C) Living Situation History: Household Members: Spouse Housing: Apartment Are you a primary acute care registered nurse to a significant other at home: No Do you presently have visiting nurse or other home services: Yes Do you presently have visiting nurse or other home services comment: [facility] and [employer] Alcohol History: Unable to assess alcohol history related to: Unable to respond Tobacco History: Patient Tobacco Use Status: Former Tobacco user Tobacco use type: Cigarette Years Smoked: 40 e-Cigarette/Vaping Use: Former Use Second Hand Smoke Exposure: No Advance Directives: Advance Directives Date on File: 10/05/22 Occupation Assessmet: service: No Current occupational status: unemployed Current occupational status: disabled Home Medications and Allergies Current Medications: Current Medications Acetaminophen (Acetaminophen 325 Mg Tablet) 975 mg PO Q6H PRN PRN Reason: Pain, Mild 1-3,fever,headache Last Admin: 09/12/24 12:21 Dose: 975 mg Apixaban (Apixaban 5 Mg Tablet) 5 mg PO BID [facility] Last Admin: 09/13/24 09:02 Dose: 5 mg Atorvastatin Calcium (Atorvastatin Calcium 80 Mg Tablet) 80 mg PO BEDTIME LONG Last Admin: 09/12/24 20:40 Dose: 80 mg Calcium Carbonate (Calcium Carbonate 750 Mg Tab.Chew) 750 mg PO Q4H PRN PRN Reason: Heartburn Clonazepam (Clonazepam 1 Mg Tablet) 1 mg PO BID [facility] Last Admin: 09/13/24 09:02 Dose: 1 mg Cyanocobalamin (Cyanocobalamin (Vitamin B-12) 1,000 Mcg Tablet) 1,000 mcg PO DAILY [facility] Last Admin: 09/13/24 09:02 Dose: 1,000 mcg Diltiazem HCl (Diltiazem Hcl Cd 240 Mg Cap.Er.Deg) 240 mg PO DAILY@1900 [facility]; Protocol Last Admin: 09/12/24 20:40 Dose: 240 mg Divalproex Sodium (Divalproex Sodium Er 500 Mg Tab.Er.24h) 1,000 mg PO BEDTIME LONG Last Admin: 09/12/24 20:40 Dose: 1,000 mg Divalproex Sodium (Divalproex Sodium Er 500 Mg Tab.Er.24h) 500 mg PO DAILY [facility] Last Admin: 09/13/24 09:02 Dose: 500 mg Duloxetine HCl (Duloxetine Hcl 60 Mg Capsule.Dr) 60 mg PO BEDTIME [facility] Last Admin: 09/12/24 20:40 Dose: 60 mg Fenofibrate (Fenofibrate 160 Mg Tablet) 160 mg PO BEDTIME [facility] Last Admin: 09/12/24 20:40 Dose: 160 mg Ferrous Sulfate (Ferrous Sulfate 324 Mg Tablet.Dr) 324 mg PO BID [facility] Last Admin: 09/13/24 09:02 Dose: 324 mg Fluticasone/Vilanterol (Fluticasone/Vilanterol 100/25 Blst.W.Dev) 1 puff INHALE DAILY [facility] Last Admin: 09/13/24 08:08 Dose: 1 puff Hydralazine HCl (Hydralazine Hcl 50 Mg Tablet) 50 mg PO TID [facility]; Protocol Last Admin: 09/13/24 09:02 Dose: Not Given Hydromorphone HCl (Hydromorphone Hcl 1 Mg/Ml Syringe) 1 mg IVPUSH Q4H PRN; Protocol PRN Reason: Pain, Severe (Pain Scale 7-10) Last Admin: 09/13/24 05:11 Dose: 1 mg Lactulose (Lactulose 20 Gm/30 Ml Solution) 20 gm PO DAILY [facility] Last Admin: 09/13/24 09:03 Dose: 20 gm Magnesium Hydroxide (Milk Of Magnesia 30 Ml Oral.Susp) 30 ml PO DAILY PRN PRN Reason: Constipation Melatonin (Melatonin 3 Mg Tablet) 6 mg PO BEDTIME PRN PRN Reason: Insomnia Last Admin: 09/12/24 20:40 Dose: 6 mg Metoprolol Succinate (Metoprolol Succinate Er 50 Mg Tab.Er.24h) 50 mg PO DAILY [facility]; Protocol Last Admin: 09/13/24 09:03 Dose: Not Given Morphine Sulfate (Morphine Sulfate 4 Mg/Ml Cartridge) 2 mg IVPUSH Q4H PRN; Protocol PRN Reason: Pain, Moderate(Pain Scale 4-6) Last Admin: 09/12/24 13:30 Dose: 2 mg Omeprazole (Omeprazole 20 Mg Capsule.Dr) 20 mg PO BID@0630,1630 [facility] Last Admin: 09/13/24 06:08 Dose: 20 mg Ondansetron HCl (Ondansetron Hcl 4 Mg/2 Ml Vial) 4 mg IVPUSH Q8H PRN PRN Reason: Nausea and Vomiting Last Admin: 09/12/24 20:38 Dose: 4 mg Sodium Chloride (0.9 % Sodium Chloride Flush 3 Ml Syringe) 3 ml IVFLUSH QSHIFT [facility] Last Admin: 09/13/24 06:16 Dose: 3 ml Tiotropium Eminence (Tiotropium Eminence 2.5 Mcg 1 Puff/2.5 Mcg Mist.Inhal) 2 puff INHALE DAILY [facility] Last Admin: 09/13/24 08:08 Dose: 2 puff Home Medications ?Medication ?Instructions ?Recorded ?Confirmed ?Type blood pressure monitor #1 ea 10/22/20 08/12/24 History blood pressure test kit-large #1 ea 10/22/20 08/12/24 History metoprolol succinate 50 mg 50 mg PO DAILY 04/15/24 09/10/24 History tablet,extended release 24 hr fluticasone furoate 100 1 inh inhalation DAILY 04/29/24 09/10/24 History mcg-vilanterol 25 mcg/dose inhalation powder (Breo Ellipta) acetaminophen 500 mg tablet 500 mg PO Q12H PRN Pain 09/06/24 09/10/24 History loperamide 2 mg capsule 4 mg PO QIDACHS 09/10/24 09/10/24 History Allergies Allergy/AdvReac Type Severity Reaction Status Date / Time Penicillins Allergy Mild Rash Verified 09/10/24 15:48 venlafaxine [From Effexor] Allergy Mild Rash Verified 09/10/24 15:48 cyclobenzaprine Allergy Unknown Unknown Verified 09/10/24 15:48 [Cyclobenzaprine] topiramate [From Topamax] Allergy Unknown Unknown Verified 09/10/24 15:48 levofloxacin [From Levaquin] AdvReac Severe Diarrhea Verified 09/10/24 15:48 Sulfa (Sulfonamide AdvReac Severe Diarrhea Verified 09/10/24 15:48 Antibiotics) fentanyl [FENTANYL] AdvReac Intermediate Hallucinati Verified 09/10/24 15:48 ons tramadol AdvReac Intermediate Hallucinati Verified 09/10/24 15:48 ons Exam Vital signs: Vital Signs Temp 98.0 F 09/13/24 07:19 Pulse 75 09/13/24 08:14 Resp 16 09/13/24 08:14 BP 90/56 L 09/13/24 09:02 Pulse Ox 95 09/13/24 07:19 O2 Del Method Nasal Cannula 09/13/24 07:19 O2 Flow Rate 2 09/13/24 07:19 Intake & Output 09/12/24 09/13/24 09/13/24 18:59 06:59 18:59 Intake Total 960 / 1200 240 / 1200 Balance 960 / 1200 240 / 1200 Intake: Intake, Oral Amount 960 / 1200 240 / 1200 Other: Breakfast % Eaten 100% Lunch % Eaten 100% Eating (Feeding) Ability Independent Number of Unmeasured Voids 3 1 Urine Bathroom Bathroom Urine Color Yellow Last Bowel Movement 09/12/24 09/12/24 09/13/24 Stool Ostomy Ostomy Stool Amount Large Small Stool Color Brown Jacobsen Stool Consistency Mushy Mushy Weight 86.7 kg BMI result Body Mass Index 32.8 - Constitutional Present: no acute distress, obese - Routine HEENT Exam Head: Present: normal inspection Eye: Present: EOMI - Routine Respiratory Exam Present: CTAB - Routine Cardiovascular Exam Cardiovascular: Present: S1, S2 - Routine Abdominal Exam Present: soft, tenderness Data - Labs CBC & Chem 7: 09/13/24 05:49 09/13/24 05:49 Labs: Laboratory Last Values WBC 5.8 X10*3/uL (4.8-10.8) 09/13/24 05:49 RBC 3.47 X10*6/uL (4.20-5.50) L 09/13/24 05:49 Hgb 10.8 g/dl (12.0-16.0) L 09/13/24 05:49 Hct 34.2 % (37.0-47.0) L 09/13/24 05:49 MCV 98.6 fL (80.0-98.0) H 09/13/24 05:49 MCH 31.1 pg (27.0-33.0) 09/13/24 05:49 MCHC 31.6 g/dl (31.0-35.0) 09/13/24 05:49 RDW 16.4 % (11.0-16.0) H 09/13/24 05:49 Plt Count 315 X10*3/uL (160-400) 09/13/24 05:49 MPV 10.0 fL (9.4-12.3) 09/13/24 05:49 Immature Gran % (Auto) 1.0 % (0.0-0.4) H 09/13/24 05:49 Neut % (Auto) 39.9 % (45-73) L 09/13/24 05:49 Lymph % (Auto) 44.6 % (20-40) H 09/13/24 05:49 [place] % (Auto) 13.3 % (2-11) H 09/13/24 05:49 Eos % (Auto) 0.7 % (0-4) 09/13/24 05:49 Baso % (Auto) 0.5 % (0-2) 09/13/24 05:49 Lymph # (Auto) 2.6 X10*3/uL (1.2-4.9) 09/13/24 05:49 [place] # (Auto) 0.8 X10*3/uL (0.1-1.2) 09/13/24 05:49 Eos # (Auto) 0.0 X10*3/uL (0.0-0.4) 09/13/24 05:49 Baso # (Auto) 0.0 X10*3/uL (0.0-0.2) 09/13/24 05:49 Abs Immat Gran (auto) 0.06 X10*3/uL (0.00-0.03) H 09/13/24 05:49 Absolute Neuts (auto) 2.3 x10*3/uL (2.0-8.3) 09/13/24 05:49 Absolute Nucleated RBC 0.000 X10*3/uL (0.0-0.012) 09/13/24 05:49 Nucleated RBC % (auto) 0.0 /100WBC (0.0-0.2) 09/13/24 05:49 Sodium 145 mmol/L (135-145) 09/13/24 05:49 Potassium 3.8 mmol/L (3.3-5.1) 09/13/24 05:49 Chloride 106 mmol/L (96-108) 09/13/24 05:49 Carbon Dioxide 29 mmol/L (22-29) 09/13/24 05:49 Anion Gap 14 (12-20) 09/13/24 05:49 BUN 6 mg/dL (9-16) L 09/13/24 05:49 Creatinine 0.60 mg/dL (0.5-1.4) 09/13/24 05:49 Estim Creat Clear Calc 104.9 09/13/24 05:49 Estimated GFR > 60 09/13/24 05:49 Random Glucose 97 mg/dL (60-115) 09/13/24 05:49 Calcium 8.9 mg/dL (8.4-10.2) 09/13/24 05:49 Total Bilirubin 0.4 mg/dL (0.0-1.0) 09/12/24 07:02 Direct Bilirubin 0.1 mg/dL (0.0-0.5) 09/12/24 07:02 GGT 59 U/L (7-33) H 09/11/24 03:45 AST 27 U/L (5-31) 09/12/24 07:02 ALT < 6 U/L (0-31) 09/12/24 07:02 Alkaline Phosphatase 95 U/L (39-117) 09/12/24 07:02 Ammonia 74 umol/L (13-55) H 09/12/24 07:02 Total Protein 6.0 g/dL (6.5-8.0) L 09/12/24 07:02 Albumin 3.4 g/dL (3.5-5.0) L 09/12/24 07:02 Lipase 11 U/L (8-78) 09/10/24 15:55 Urine Color Dark Yellow 09/11/24 04:54 Urine Appearance Clear 09/11/24 04:54 Urine pH 6.5 (5.0-9.0) 09/11/24 04:54 Ur Specific [place] 1.015 (1.005-1.025) 09/11/24 04:54 Urine Protein Negative mg/dL (Neg-Trace) 09/11/24 04:54 Urine Glucose (UA) Negative mg/dL (Negative) 09/11/24 04:54 Urine Ketones Negative mg/dL (Negative) 09/11/24 04:54 Urine Blood Negative (Negative) 09/11/24 04:54 Urine Nitrite Negative (Negative) 09/11/24 04:54 Ur Leukocyte Esterase Negative (Negative) 09/11/24 04:54 Urine RBC 0-2 /HPF (0-2) 09/10/24 19:51 Urine WBC 0-5 /HPF (0-5) 09/10/24 19:51 Ur Squamous Epith Cells 0-2 /HPF (0-2) 09/10/24 19:51 Urine Bacteria None Seen (None Seen) 09/10/24 19:51 Hyaline Casts 0-2 /LPF (0-2) 09/10/24 19:51 Influenza Type A (PCR) NEGATIVE (Negative) 09/10/24 15:55 Influenza Type B (PCR) NEGATIVE (Negative) 09/10/24 15:55 RSV RNA Qual (PCR) NEGATIVE (Negative) 09/10/24 15:55 SARS-CoV-2 RNA (RT-PCR) NEGATIVE (Negative) 09/10/24 15:55 Assessment and Plan Patient Active problem list reviewed?: Yes (1) Adenocarcinoma of sigmoid colon Problem details: s/p resection , and has permanant Colostomy Status: Chronic Assessment and plan: 1. This is a 59-year-old woman with recurrent sigmoid colon adenocarcinoma. She underwent sigmoid colectomy on 12/18/2020 at [facility], pathology adenocarcinoma, tumor size 3.2 x 3.1 x 1.8 cm, moderately differentiated, tumor invades through muscularis propria into pericolorectal tissue. No lymphovascular invasion or perineural invasion. No tumor deposits. Twelve lymph nodes examined, negative. All margins negative. MSI stable. Pathological stage pT3pN0. In July 2022 she underwent laparotomy with resection of ileum with adhesions and enterotomy, pathology revealed- small bowel with metastatic adenocarcinoma involving serum muscular layer consistent with spread from known colonic primary. She has been on systemic therapy with FOLFIRI, Avastin added from 05/17/2023 since she was not considered a surgical candidate at [facility] or in [place]. Five FU pump has been discontinued in February 2024. She is currently admitted for altered mental status, somnolence and found to have elevated ammonia levels. Patient has had intermittent periods of hypersomnolence and confusion. This appeared to be related to chemotherapy and therefore 5 FU pump was discontinued last year. She got a long break from chemotherapy this year and her mental status improved. She received 1 cycle of chemotherapy in August and she has recurrent symptoms of metabolic encephalopathy. Ammonia level is elevated. She has been started on lactulose. Liver enzymes are normal, GGT has been added. Chemotherapy may have to be permanently stopped. 2. Abdominal pain and urinary retention. She has a 2.9 cm soft tissue density at the posterior aspect of urinary bladder, reported as suspicious for bladder mass on previous CT scan from 09/05/2024. Repeat CT abdomen/pelvis shows vertebral body compression deformity at L1, hepatomegaly. No bowel obstruction. Since been able to walk and void and has not required Doty catheter placement. She was met with hospice team has decided to go home with hospice care. - Time Spent With Patient Time Spent with Patient (in minutes): 10
[2024-09-13] MEDS: Morphine Sulfate 4 MG/ML CARTRIDGE 2 MG IVPUSH (12:34)
[2024-09-13] MEDS: Heparin Sodium,Porcine Flush 50 UNITS/5 ML SYRINGE IVFLUSH (14:22)
[2024-09-13 15:13] VITALS: BP 85/54; PULSE 81; RESP 16; TEMP 36.2; O2SAT 95
--- NOTE | 2024-09-13 15:31 | PC.NURSE ---
Pt rikki de-accessed prior to dc. BP running consistently in 80's after several BP checks. Pt asymptomatic. Dr Moore aware and ok to dc pt home on hospice. Hospice to follow with pt tomorrow morning.
--- NOTE | 2024-09-16 09:09 | MHC.HEMONC ---
Patient called to say that she was expecting manager hospice visit as she did have informational and signed up. I told her I would call them to check on status. I explained that hospice would now be assuming her care and that Dr Ahumada would be overseeing things. I told her I was canceling chemo and f/u here on Monday and she understood.
== END 2024-09-13 15:35 | disposition hospice, home (50) | DRG 92 ==
LOC: HO.ED 21:13 → HO.EDOVER 09-11 00:22 → HO.S3 09-11 19:09
PROVIDERS: Internal Medicine; Physician Assistant; Admitting Provider Physician Assistant; Emergency Provider Emergency Medicine Emergency Medical Services; PCP Internal Medicine; Visit Provider Internal Medicine
DX: G92.8 Other toxic encephalopathy (principal); C18.7 Malignant neoplasm of sigmoid colon; I50.32 Chronic diastolic (congestive) heart failure; C78.7 Secondary malignant neoplasm of liver and intrahepatic bile duct; C78.02 Secondary malignant neoplasm of left lung; C78.4 Secondary malignant neoplasm of small intestine; M84.58XA Pathological fracture in neoplastic disease, other specified site, initial encounter for fracture; K76.82 Hepatic encephalopathy; G89.3 Neoplasm related pain (acute) (chronic); I48.0 Paroxysmal atrial fibrillation; Z66 Do not resuscitate; J44.9 Chronic obstructive pulmonary disease, unspecified; K43.5 Parastomal hernia without obstruction or gangrene; N32.9 Bladder disorder, unspecified; E78.5 Hyperlipidemia, unspecified; Z93.3 Colostomy status; I11.0 Hypertensive heart disease with heart failure; T45.1X5A Adverse effect of antineoplastic and immunosuppressive drugs, initial encounter; T42.6X5A Adverse effect of other antiepileptic and sedative-hypnotic drugs, initial encounter; Z20.822 Contact with and (suspected) exposure to COVID-19; Z87.891 Personal history of nicotine dependence; Z79.01 Long term (current) use of anticoagulants; Z79.51 Long term (current) use of inhaled steroids; Z79.899 Other long term (current) drug therapy
CPT/HCPCS: 0241U; 36415; 74176; 80048; 80053; 80076; 81001; 81003; 82140; 82977; 83690; 85025; 94640; 99285; J1171; J1642; J2270; J2405; J7120

== ENCOUNTER 2024-09-10 22:08 | Outpatient (BNV) | payer MEDICARE, MEDICAID, SELFPAY | END 2024-09-11 | PROVIDERS: Admitting Provider Physician Assistant; Emergency Provider Emergency Medicine Emergency Medical Services; PCP Internal Medicine; Visit Provider Radiology Diagnostic Radiology | DX: R10.9 Unspecified abdominal pain (principal); R16.0 Hepatomegaly, not elsewhere classified; Z93.3 Colostomy status | CPT/HCPCS: 74176 ==

== ENCOUNTER → 2024-09-10 22:08 | Outpatient (BNV) | payer MEDICARE, MEDICAID, SELFPAY | PROVIDERS: Admitting Provider Physician Assistant; Emergency Provider Emergency Medicine Emergency Medical Services; PCP Internal Medicine; Visit Provider Urology | DX: N32.89 Other specified disorders of bladder (principal) | CPT/HCPCS: 99222 ==

== ENCOUNTER → 2024-09-10 22:08 | Outpatient (BNV) | payer MEDICARE, MEDICAID, SELFPAY | PROVIDERS: Admitting Provider Physician Assistant; Emergency Provider Emergency Medicine Emergency Medical Services; PCP Internal Medicine; Visit Provider Physician Assistant | DX: F41.9 Anxiety disorder, unspecified (principal) | CPT/HCPCS: 99223; 99233; 99239; 99429 ==

== ENCOUNTER → 2024-09-10 22:08 | Outpatient (BNV) | payer MEDICARE, MEDICAID, SELFPAY | PROVIDERS: Admitting Provider Physician Assistant; Emergency Provider Emergency Medicine Emergency Medical Services; PCP Internal Medicine; Visit Provider Internal Medicine | DX: C18.7 Malignant neoplasm of sigmoid colon (principal); Z93.3 Colostomy status; R41.82 Altered mental status, unspecified; E72.20 Disorder of urea cycle metabolism, unspecified | CPT/HCPCS: 99223; 99231 ==

== ENCOUNTER 2024-09-18 14:11 | Outpatient (REF) | payer MEDICARE, MEDICAID, SELFPAY ==
[2024-09-18 14:19] LABS: Appearance Urine Clear; Color Urine Dark Yellow; Glucose Urine UA Negative (Negative); Leukocyte Esterase Urine Small (1+) (Negative); Nitrite Urine Negative (Negative); Specific Gravity - Urine <= 1.005 (1.005-1.025); UMIC TRIGGER UACC YES; Urine Blood Moderate (2+) (Negative); Urine Ketones Negative (Negative); Urine Protein 30 (1+) mg/dL (Neg-Trace)
[2024-09-18 14:24] LABS: Bacteria Urine None Seen (None Seen); Hyaline Casts Urine 0-2 /LPF (0-2); Squamous Epithelial Cell Urine 0-2 /HPF (0-2); UACC Culture Trigger YES; WBC Urine 21-50 /HPF (0-5)
--- OUTSIDE RECORDS SUMMARY | 2024-09-18 16:56 | XMS_ITS | Encounter Summary ---
Author Organization [facility] Address [address] [place] [phone] Care Team Providers Care Funeral Attendant Name Role Phone Cassandra Oconnor MD Primary Care Provider +1 [phone] Encounter Details Date Type Department Care Team (Late Contact Info) Description 05/07/2024 Lab Requisition [facility] - Main Lab 299 [facility] [place] [address] Ray Lee MD [address] [place] [phone] Essential (primary) hypertension Social History Tobacco [facility] [address] [place] [phone] 11/14/2024 1:30 PM EDT Office Visit Thoracic Surgery - [place] 299 [facility] [address] [place] [address] Annie Hall PA 299 [facility], [address] [place], [place] [phone] documented as of this encounter Procedures Procedure [...] K/mcL LAB HEMETOLOGY METHOD 05/07/2024 10:31 AM [facility] RBC 3.60(L) 3.80 - 4.80 M/mcL LAB HEMETOLOGY METHOD 05/07/2024 10:31 AM [facility] Hemoglobin 11.5 11.5 - 16.0 g/dL LAB HEMETOLOGY METHOD 05/07/2024 10:31 AM [facility] Hematocrit 38.7 35.0 - 47.0 % LAB HEMETOLOGY METHOD 05/07/2024 10:31 AM [facility] MCV 108.7(H) 79.0 - 98.0 FL LAB HEMETOLOGY METHOD 05/07/2024 10:31 AM [facility] MCH 32.3(H) 27.0 - 32.0 pcg LAB HEMETOLOGY METHOD 05/07/2024 10:31 AM [facility] MCHC 29.7(L) 32.0 - 37.0 g/dL LAB HEMETOLOGY METHOD 05/07/2024 10:31 AM [facility] RDW 18.4(H) 11.0 - 15.0 % LAB HEMETOLOGY METHOD 05/07/2024 10:31 AM [facility] Platelets 265 130 - 400 K/mcL LAB HEMETOLOGY METHOD 05/07/2024 10:31 AM [facility] MPV 11.4(H) 7.0 - 11.0 FL LAB HEMETOLOGY METHOD 05/07/2024 10:31 AM [facility] NRBC 0.0 <1.0 % LAB HEMETOLOGY METHOD 05/07/2024 10:31 AM [facility] NRBC Absolute 0.00 <0.10 K/mcL LAB HEMETOLOGY METHOD 05/07/2024 10:31 AM [facility] Neutrophils Relative 54.4 % LAB HEMETOLOGY METHOD 05/07/2024 10:31 AM [facility] Lymphocytes Relative 26.7 % LAB HEMETOLOGY METHOD 05/07/2024 10:31 AM [facility] Monocytes Relative 15.0 % LAB HEMETOLOGY METHOD 05/07/2024 10:31 AM [facility] Eosinophils Relative 0.0 % LAB HEMETOLOGY METHOD 05/07/2024 10:31 AM [facility] Basophils Relative 1.2 % LAB HEMETOLOGY METHOD 05/07/2024 10:31 AM [facility] Immature Granulocytes Relative 2.7 % LAB HEMETOLOGY METHOD 05/07/2024 10:31 AM [facility] Neutrophils Absolute 4.07 1.50 - 7.00 K/mcL LAB HEMETOLOGY METHOD 05/07/2024 10:31 AM [facility] Lymphocytes Absolute 2.00 1.00 - 5.00 K/mcL LAB HEMETOLOGY METHOD 05/07/2024 10:31 AM [facility] Monocytes Absolute 1.12(H) 0.20 - 1.00 K/mcL LAB HEMETOLOGY METHOD 05/07/2024 10:31 AM EST [facility] Eosinophils Absolute 0.00 0.00 - 0.50 K/[facility] LAB HEMETOLOGY METHOD 05/07/2024 10:31 AM EST [facility] Basophils Absolute 0.09 0.00 - 0.20 K/[facility] LAB HEMETOLOGY METHOD 05/07/2024 10:31 AM [facility] Immature Granulocytes Absolute 0.20(H) 0.00 - 0.03 K/[facility] LAB HEMETOLOGY METHOD 05/07/2024 10:31 AM [facility] Blood Venous blood specimen / Unknown Venipuncture / Unknown 05/07/2024 7:55 AM EST 05/07/2024 10:01 AM EST Ray Lee MD LAB BLOOD ORDERABLES Final Resul t Performing Organization Address [facility]/ZIP Co de Phone Number [facility] [address] [place] [address], [place] [phone] * Valproic acid level, total (05/07/2024 7:55 AM EST) Pathologist [facility] Valproic Acid, Total 71 50 - 100 mcg/mL LAB CHEMISTRY METHOD 05/07/2024 10:47 AM [facility] Blood Venous blood specimen / Unknown Venipuncture / Unknown 05/07/2024 7:55 AM EST 05/07/2024 10:01 AM EST Ray Lee MD LAB BLOOD ORDERABLES Final Resul t [facility] [address] [place] [address], [place] [phone] * (ABNORMAL) Comprehensive metabolic panel (05/07/2024 7:55 AM EST) Pathologist [facility] Sodium 137 133 - 145 mmol/L LAB CHEMISTRY METHOD 05/07/2024 10:52 AM EST [facility] Potassium 4.2 3.5 - 5.5 mmol/L LAB CHEMISTRY METHOD 05/07/2024 10:52 AM [facility] Chloride 103 96 - 110 mmol/L LAB CHEMISTRY METHOD 05/07/2024 10:52 AM [facility] CO2 23 21 - 32 mmol/L LAB CHEMISTRY METHOD 05/07/2024 10:52 AM [facility] Anion Gap 11 3 - 11 LAB CHEMISTRY METHOD 05/07/2024 10:52 AM [facility] Glucose 80 70 - 100 mg/dL LAB CHEMISTRY METHOD 05/07/2024 10:52 AM [facility] BUN 16 5 - 25 mg/dL LAB CHEMISTRY METHOD 05/07/2024 10:52 AM [facility] Creatinine 0.65 0.50 - 1.10 mg/dL LAB CHEMISTRY METHOD 05/07/2024 10:52 AM [facility] eGFR 101 >=60 mL/min/1. 73m2 LAB CHEMISTRY METHOD 05/07/2024 10:52 AM [facility] Comment:Calculation based on the??Chronic Kidney Disease Epidemiology Collaboration (CKD-EPI) equation refit??without adjustment for race. BUN/Creatinine Ratio 24.6 LAB CHEMISTRY METHOD 05/07/2024 10:52 AM [facility] Calcium 8.8 8.5 - 10.5 mg/dL LAB CHEMISTRY METHOD 05/07/2024 10:52 AM [facility] AST (SGOT) 25 10 - 42 unit/L LAB CHEMISTRY METHOD 05/07/2024 10:52 AM [facility] ALT (SGPT) 9(L) 10 - 60 unit/L LAB CHEMISTRY METHOD 05/07/2024 10:52 AM [facility] Alkaline Phosphatase 70 42 - 121 unit/L LAB CHEMISTRY METHOD 05/07/2024 10:52 AM [facility] Total Protein 6.0 6.0 - 8.0 g/dL LAB CHEMISTRY METHOD 05/07/2024 10:52 AM EST [facility] Albumin 2.7(L) 3.2 - 5.0 g/dL LAB CHEMISTRY METHOD 05/07/2024 10:52 AM EST [facility] Total Bilirubin 0.4 0.0 - 1.4 mg/dL LAB CHEMISTRY METHOD 05/07/2024 10:52 AM EST [facility] Blood Venous blood specimen / Unknown Venipuncture / Unknown 05/07/2024 7:55 AM EST 05/07/2024 10:01 AM EST us Ray Lee MD LAB BLOOD ORDERABLES Final Resul t [facility] [address] [place] [address], documented in this encounter Visit Diagnoses Diagnosis Essential (primary) hypertension Unspecified essential hypertension documented in this encounter Care Teams Funeral Attendant Relationship Specialty Start Date End Date Cassandra Oconnor MD [address] [place] [address] PCP - General 10/26/10 documented as of this encounter
--- OUTSIDE RECORDS SUMMARY | 2024-09-18 16:56 | XMS_ITS | Encounter Summary ---
Author Organization [facility] Address [address] [place] [phone] Care Team Providers Care Machinist Brake Name Role Phone Cassandra Oconnor MD Primary Care Provider [phone] Encounter Details Date Type Department Care Team (Late Contact Info) Description 05/09/2024 Lab Requisition [facility] - Main Lab 299 [facility] [place] [address] Ray Lee MD [address] [place] [phone] Other marketing strategist (current) drug therapy Social History Tobacco Use [...] Description 11/06/2024 3:30 PM EDT Appointment [facility] CT Scan [address] [place] [phone] 11/14/2024 1:30 PM EDT Office Visit Thoracic Surgery - [place] 299 [facility] [address] [place] [phone] Annie Hall PA 299 [facility], [address] [place], [place] [phone] documented as of this encounter Procedures Procedure Name Priority Date/Time Associated Diagnosis Comments COMPLETE BLOOD COUNT Routine 05/10/2024 8:37 AM EST Other marketing strategist (current) drug therapy BASIC METABOLIC PANEL Routine 05/10/2024 8:37 AM EST Other marketing strategist (current) drug therapy documented in this encounter Results * Basic metabolic panel (05/10/2024 8:37 AM EST) Sodium 140 133 - 145 mmol/L LAB CHEMISTRY METHOD 05/10/2024 11:21 AM [facility] Potassium 4.7 3.5 - 5.5 mmol/L LAB CHEMISTRY METHOD 05/10/2024 11:21 AM [facility] Comment:Hemolysis present Chloride 103 96 - 110 mmol/L LAB CHEMISTRY METHOD 05/10/2024 11:21 AM [facility] CO2 26 21 - 32 mmol/L LAB CHEMISTRY METHOD 05/10/2024 11:21 AM [facility] Anion Gap 11 3 - 11 LAB CHEMISTRY METHOD 05/10/2024 11:21 AM [facility] Glucose 95 70 - 100 mg/dL LAB CHEMISTRY METHOD 05/10/2024 11:21 AM [facility] BUN 16 5 - 25 mg/dL LAB CHEMISTRY METHOD 05/10/2024 11:21 AM [facility] Creatinine 0.72 0.50 - 1.10 mg/dL LAB CHEMISTRY METHOD 05/10/2024 11:21 AM [facility] eGFR 96 >=60 mL/min/1. 73m2 LAB CHEMISTRY METHOD 05/10/2024 11:21 AM [facility] Comment:Calculation based on the??Chronic Kidney Disease Epidemiology Collaboration (CKD-EPI) equation refit??without adjustment for race. BUN/Creatinine Ratio 22.2 LAB CHEMISTRY METHOD 05/10/2024 11:21 AM [facility] Calcium 9.2 8.5 - 10.5 mg/dL LAB CHEMISTRY METHOD 05/10/2024 11:21 AM [facility] Blood Venous blood specimen / Unknown Venipuncture / Unknown 05/10/2024 8:37 AM EST 05/10/2024 10:31 AM EST us Ray Lee MD LAB BLOOD ORDERABLES Final Resul t [facility] [address] [place] [address], * (ABNORMAL) Complete blood count (05/10/2024 8:37 AM EST) WBC 9.8 4.8 - 10.8 K/mcL LAB HEMETOLOGY METHOD 05/10/2024 10:50 AM [facility] RBC 4.00 3.80 - 4.80 M/[facility] LAB HEMETOLOGY METHOD 05/10/2024 10:50 AM [facility] Hemoglobin 12.5 11.5 - 16.0 g/dL LAB HEMETOLOGY METHOD 05/10/2024 10:50 AM [facility] Hematocrit 42.1 35.0 - 47.0 % LAB HEMETOLOGY METHOD 05/10/2024 10:50 AM [facility] MCV 105.5(H) 79.0 - 98.0 FL LAB HEMETOLOGY METHOD 05/10/2024 10:50 AM [facility] MCH 31.3 27.0 - 32.0 pcg LAB HEMETOLOGY METHOD 05/10/2024 10:50 AM [facility] MCHC 29.7(L) 32.0 - 37.0 g/dL LAB HEMETOLOGY METHOD 05/10/2024 10:50 AM [facility] RDW 18.6(H) 11.0 - 15.0 % LAB HEMETOLOGY METHOD 05/10/2024 10:50 AM [facility] Platelets 390 130 - 400 K/mcL LAB HEMETOLOGY METHOD 05/10/2024 10:50 AM EST [facility] MPV 11.2(H) 7.0 - 11.0 FL LAB HEMETOLOGY METHOD 05/10/2024 10:50 AM EST [facility] NRBC 0.0 <1.0 % LAB HEMETOLOGY METHOD 05/10/2024 10:50 AM EST [facility] NRBC Absolute 0.00 <0.10 K/mcL LAB HEMETOLOGY METHOD 05/10/2024 10:50 AM EST [facility] Blood Venous blood specimen / Unknown Venipuncture / Unknown 05/10/2024 8:37 AM EST 05/10/2024 10:31 AM EST us Ray Lee MD LAB BLOOD ORDERABLES Final Resul t [facility] [address] [place] [address], documented in this encounter Visit Diagnoses Diagnosis Other residential (current) drug therapy documented in this encounter Care Teams Machinist Brake Relationship Specialty Start Date End Date Cassandra Oconnor MD [address] [place] [address] PCP - General 10/26/10 documented as of this encounter
--- OUTSIDE RECORDS SUMMARY | 2024-09-18 16:56 | XMS_ITS | Clinical Summary ---
Author Organization [employer] Address [address] [place] [address] 7t [place] [address] Care Team Providers Care Senior Mobile Developer Name Role Phone Unavailable Primary Care Provider Unavailabl e Encounters Date Type Department Care Team Description 08/06/2024 Orders Only [facility] [employer] [address] [place] [address] ProviderSilvia MD from Last 3 Months Social [...]
--- OUTSIDE RECORDS SUMMARY | 2024-09-18 16:56 | XMS_ITS | Encounter Summary ---
Author Organization [employer] Address [address] [place] [address] 7t [place] [address] Care Team Providers Care Commercial Fisherman Name Role Phone Unavailable Primary Care Provider Unavailabl e Encounter Details Date Type Department Care Team (Late st Contact Info) Description 08/06/2024 Orders Only [facility] [address] [place] [address] Provider, Historical, Social History Tobacco Use Types [...]
--- OUTSIDE RECORDS SUMMARY | 2024-09-18 16:56 | XMS_ITS | Encounter Summary ---
Author Organization [facility] Address [address] [place] [phone] Care Team Providers Care Conceptor Name Role Phone Cassandra Oconnor MD Primary Care Provider [phone] Encounter Details Date Type Department Care Team (Late Contact Info) Description 05/03/2024 Lab Requisition [facility] - Main Lab 299 [facility] [place] [address] Ray Lee MD [address] [place] [phone] Other longwall shearer operator (current) drug therapy Social History Tobacco [...] [facility] Scan [address] [place] [phone] 11/14/2024 1:30 PM EDT Office Visit Thoracic Surgery - [place] 299 [facility] [address] [place] [phone] Annie Hall PA 299 [facility], [address] [place], [place] [phone] documented as of this encounter Procedures Procedure Name Priority Date/Time Associated Diagnosis Comments COMPLETE BLOOD COUNT Routine 05/03/2024 5:52 AM EST Other group home (current) drug therapy VALPROIC ACID LEVEL, TOTAL Routine 05/03/2024 5:52 AM EST Other longwall shearer operator (current) drug therapy COMPREHENSIVE METABOLIC PANEL Routine 05/03/2024 5:52 AM EST Other longwall shearer operator (current) drug therapy documented in this encounter Results * Valproic acid level, total (05/03/2024 5:52 AM EST) Valproic Acid, Total 77 50 - 100 mcg/mL LAB CHEMISTRY METHOD 05/03/2024 8:18 AM EST [facility] Blood Venous blood specimen / Unknown Venipuncture / Unknown 05/03/2024 5:52 AM EST 05/03/2024 7:30 AM EST us Ray Lee MD LAB BLOOD ORDERABLES Final Resul t [facility] [address] [place] [address], * (ABNORMAL) Comprehensive metabolic panel (05/03/2024 5:52 AM EST) Sodium 135 133 - 145 mmol/L LAB CHEMISTRY METHOD 05/03/2024 8:18 AM EST [facility] Potassium 4.5 3.5 - 5.5 mmol/L LAB CHEMISTRY METHOD 05/03/2024 8:18 AM EST [facility] Chloride 101 96 - 110 mmol/L LAB CHEMISTRY METHOD 05/03/2024 8:18 AM EST [facility] CO2 27 21 - 32 mmol/L LAB CHEMISTRY METHOD 05/03/2024 8:18 AM EST [facility] Anion Gap 7 3 - 11 LAB CHEMISTRY METHOD 05/03/2024 8:18 AM EST [facility] Glucose 97 70 - 100 mg/dL LAB CHEMISTRY METHOD 05/03/2024 8:18 AM [facility] BUN 19 5 - 25 mg/dL LAB CHEMISTRY METHOD 05/03/2024 8:18 AM [facility] Creatinine 0.90 0.50 - 1.10 mg/dL LAB CHEMISTRY METHOD 05/03/2024 8:18 AM [facility] eGFR 73 >=60 mL/min/1. 73m2 LAB CHEMISTRY METHOD 05/03/2024 8:18 AM [facility] Comment:Calculation based on the??Chronic Kidney Disease Epidemiology Collaboration (CKD-EPI) equation refit??without adjustment for race. BUN/Creatinine Ratio 21.1 LAB CHEMISTRY METHOD 05/03/2024 8:18 AM [facility] Calcium 9.0 8.5 - 10.5 mg/dL LAB CHEMISTRY METHOD 05/03/2024 8:18 AM [facility] AST (SGOT) 34 10 - 42 unit/L LAB CHEMISTRY METHOD 05/03/2024 8:18 AM [facility] ALT (SGPT) 13 10 - 60 unit/L LAB CHEMISTRY METHOD 05/03/2024 8:18 AM [facility] Alkaline Phosphatase 81 42 - 121 unit/L LAB CHEMISTRY METHOD 05/03/2024 8:18 AM [facility] Total Protein 6.1 6.0 - 8.0 g/dL LAB CHEMISTRY METHOD 05/03/2024 8:18 AM [facility] Albumin 3.1(L) 3.2 - 5.0 g/dL LAB CHEMISTRY METHOD 05/03/2024 8:18 AM [facility] Total Bilirubin 0.2 0.0 - 1.4 mg/dL LAB CHEMISTRY METHOD 05/03/2024 8:18 AM [facility] Blood Venous blood specimen / Unknown Venipuncture / Unknown 05/03/2024 5:52 AM EST 05/03/2024 7:30 AM EST us Ray Lee MD LAB BLOOD ORDERABLES Final Resul t [facility] [address] [place] [address], [place] [phone] * (ABNORMAL) Complete blood count (05/03/2024 5:52 AM EST) WBC 10.2 4.8 - 10.8 K/mcL LAB HEMETOLOGY METHOD 05/03/2024 7:53 AM EST [facility] RBC 3.60(L) 3.80 - 4.80 M/mcL LAB HEMETOLOGY METHOD 05/03/2024 7:53 AM [facility] Hemoglobin 11.7 11.5 - 16.0 g/dL LAB HEMETOLOGY METHOD 05/03/2024 7:53 AM [facility] Hematocrit 38.3 35.0 - 47.0 % LAB HEMETOLOGY METHOD 05/03/2024 7:53 AM [facility] MCV 106.1(H) 79.0 - 98.0 FL LAB HEMETOLOGY METHOD 05/03/2024 7:53 AM [facility] MCH 32.4(H) 27.0 - 32.0 pcg LAB HEMETOLOGY METHOD 05/03/2024 7:53 AM [facility] MCHC 30.5(L) 32.0 - 37.0 g/dL LAB HEMETOLOGY METHOD 05/03/2024 7:53 AM [facility] RDW 17.5(H) 11.0 - 15.0 % LAB HEMETOLOGY METHOD 05/03/2024 7:53 AM [facility] Platelets 275 130 - 400 K/mcL LAB HEMETOLOGY METHOD 05/03/2024 7:53 AM EST [facility] MPV 10.6 7.0 - 11.0 FL LAB HEMETOLOGY METHOD 05/03/2024 7:53 AM EST [facility] NRBC 0.0 <1.0 % LAB HEMETOLOGY METHOD 05/03/2024 7:53 AM EST [facility] NRBC Absolute 0.00 <0.10 K/mcL LAB HEMETOLOGY METHOD 05/03/2024 7:53 AM EST [facility] Blood Venous blood specimen / Unknown Venipuncture / Unknown 05/03/2024 5:52 AM EST 05/03/2024 7:30 AM EST us Ray Lee MD LAB BLOOD ORDERABLES Final Resul t [facility] [address] [place] [address], documented in this encounter Visit Diagnoses Diagnosis Other group home (current) drug therapy documented in this encounter Care Teams Conceptor Relationship Specialty Start Date End Date Cassandra Oconnor MD [address] [place] [address] PCP - General 10/26/10 documented as of this encounter
--- OUTSIDE RECORDS SUMMARY | 2024-09-18 16:56 | XMS_ITS | Encounter Summary ---
Author Organization [facility] Address [address] [place] [phone] Care Team Providers Care Soccer Coach Name Role Phone Cassandra Oconnor MD Primary Care Provider [phone] Encounter Details Date Type Department Care Team (Late Contact Info) Description 05/23/2024 Lab Requisition [facility] - Main Lab 299 [facility] [place] [address] Ray Lee MD [address] [place] [phone] Other bilingual school psychologist (current) drug therapy Social History Tobacco Use [...] Info) Description 11/06/2024 3:30 PM EDT Appointment [facility] CT Scan [address] [place] [phone] 11/14/2024 1:30 PM EDT Office Visit Thoracic Surgery - [place] 299 [facility] [address] [place] [phone] Annie Hall PA 299 [facility], [address] [place], [place] [phone] documented as of this encounter Visit Diagnoses Diagnosis Other bilingual school psychologist (current) drug therapy documented in this encounter Care Teams Soccer Coach Relationship Specialty Start Date End Date Cassandra Oconnor MD [address] [place] [address] PCP - General 10/26/10 documented as of this encounter
--- OUTSIDE RECORDS SUMMARY | 2024-09-18 16:56 | XMS_ITS | Encounter Summary ---
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 Social History Tobacco Use [...] [facility] [address] [place] [phone] 11/14/2024 1:30 PM EDT Office Visit Thoracic Surgery - [place] 299 [facility] [address] [place] [phone] Annie Hall PA 299 [facility], [address] [place], [place] [phone] documented as of this encounter Procedures Procedure Name Priority Date/Time Associated Diagnosis Comments COMPLETE BLOOD COUNT Routine 05/17/2024 6:14 AM EST Other watermelon harvesting supervisor (current) drug therapy BASIC METABOLIC PANEL Routine 05/17/2024 6:14 AM EST 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 watermelon harvesting supervisor (current) drug 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 documented in this encounter Results * (ABNORMAL) Basic metabolic panel (05/17/2024 6:14 AM EST) Sodium 142 133 - 145 mmol/L LAB CHEMISTRY METHOD 05/17/2024 11:20 AM [facility] Potassium 4.6 3.5 - [...] LAB CHEMISTRY METHOD 05/17/2024 11:20 AM EST [facility] Blood Venous blood specimen / Unknown Venipuncture / Unknown 05/17/2024 6:14 AM EST 05/17/2024 10:16 AM EST us Ray Lee MD LAB BLOOD ORDERABLES Final Resul t [facility] [address] [place] [address], [place] [phone] * (ABNORMAL) Complete blood count (05/17/2024 6:14 AM EST) WBC 9.7 4.8 - 10.8 K/mcL LAB HEMETOLOGY METHOD 05/17/2024 10:47 AM [facility] RBC 3.50(L) 3.80 - 4.80 M/mcL LAB HEMETOLOGY METHOD 05/17/2024 10:47 AM [facility] Hemoglobin 11.0(L) 11.5 - 16.0 g/dL LAB HEMETOLOGY METHOD 05/17/2024 10:47 AM [facility] Hematocrit 36.4 35.0 - 47.0 % LAB HEMETOLOGY METHOD 05/17/2024 10:47 AM [facility] MCV 103.7(H) 79.0 - 98.0 FL LAB HEMETOLOGY METHOD 05/17/2024 10:47 AM [facility] MCH 31.3 27.0 - 32.0 pcg LAB HEMETOLOGY METHOD 05/17/2024 10:47 AM [facility] MCHC 30.2(L) 32.0 - 37.0 g/dL LAB HEMETOLOGY METHOD 05/17/2024 10:47 AM [facility] RDW 17.7(H) 11.0 - 15.0 % LAB HEMETOLOGY METHOD 05/17/2024 10:47 AM EST [facility] Platelets 303 130 - 400 K/mcL LAB HEMETOLOGY METHOD 05/17/2024 10:47 AM EST [facility] MPV 11.1(H) 7.0 - 11.0 FL LAB HEMETOLOGY METHOD 05/17/2024 10:47 AM EST [facility] NRBC 0.0 <1.0 % LAB HEMETOLOGY METHOD 05/17/2024 10:47 AM EST [facility] NRBC Absolute 0.00 <0.10 K/mcL LAB HEMETOLOGY METHOD 05/17/2024 10:47 AM [facility] Blood Venous blood specimen / Unknown Venipuncture / Unknown 05/17/2024 6:14 AM EST 05/17/2024 10:14 AM EST us Ray Lee MD LAB BLOOD ORDERABLES Final Resul t [facility] [address] [place] [address], documented in this encounter Visit Diagnoses Diagnosis 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
--- OUTSIDE RECORDS SUMMARY | 2024-09-18 16:56 | XMS_ITS | Encounter Summary ---
Author Organization [employer] Address [address] [place] [address] 7 [place] [address] Care Team Providers Care Joint Special Operations Name Role Phone Unavailable Primary Care Provider Unavailabl e Reason for Visit * Reason Comments Med Refill Encounter Details Date Type Department Care Team (Late st Contact Info) Description 07/03/2022 Refill [facility] [address] [place] [address] Cassandra Oconnor MD [address] [place] [address] Social History Tobacco Use Types Packs/Day Years [...]
--- OUTSIDE RECORDS SUMMARY | 2024-09-18 16:56 | XMS_ITS | Data Portability ---
Author Organization [facility], Main Office Address [address], [address] [place] [address] Care Team Providers Care Cardiopulmonary Supervisor Name Role Phone SUPRIYA GARCIA - 2ND FLOOR OTHER MICHELLE CASTANON Primary Care Provider Assessment Encounter Date Assessment Date Assessment LastModified by Organization Details LastModified Time 05/16/2024 05/16/2024 45 mins. spent on coordination of discharge [email or web address] Not available 05/16/2024 13:15:07 Plan of Treatment [...] Time Acute hypercapn ic respirato ry failure [id number] Active 2019 Janna Triana [address] [facility], [address], [place], [address], [facility] 0 13:33:36 Bipolar disorder 04708728 Active 2019 and PTSD DAVID GARRIDO NP [address] [facility] [facility], [address], [place], [address], [facility] 4 11:40:12 Essential hypertens ion 31776653 Active 2019 Janna Triana [address] [facility] [address] [facility], [address], [place], [address], [facility] [employer] [facility] 0 13:36:22 Gastroeso phageal reflux disease without esophagit is 512829538 Active 2019 [facility] [address] [place] [address], [address], [place], [address], [facility] 0 13:37:17 Coronary arteriosc lerosis 47756998 Active 2019 Janna Kamilah [address] [facility], [address], [place], [address], [facility] 0 13:41:31 Chronic obstructi ve pulmonary disease 18521544 Active 2019 Janna Kamilah [address] [facility], [address], [place], [address], [facility] 0 13:43:44 Obstructi ve sleep apnea syndrome 33847096 Active 2019 Janna Kamilah [address] [place] [address], [address], [place], [address], [facility] 0 13:45:06 Chronic pain 45809498 Active 2019 back DAVID GARRIDO NP [address] [facility], [address], [place], [address], [facility] 4 11:40:25 Restless legs 20398227 Active 2019 Ray Lee MD [address] [facility], [address], [place], [address], [facility] 0 12:39:59 Malignant tumor of colon 622558867 Active 2023 s/p partial colectomy 2020 with ostomy DAVID GARRIDO NP [address] [facility], [address], [place], [address], [facility] 4 11:41:17 Atrial fibrillat ion 31515698 Active 2023 with RVR DAVID GARRIDO NP [address] [facility], [address], [place], [address], [facility] 4 11:41:27 Congestiv e heart failure 83657824 Active 2023 DAVID GARRIDO NP [address] [facility], [address], [place], [address], [facility] 4 11:41:33 Restricti ve lung disease 50670215 Active 2023 DAVID GARRIDO NP [address], [address], [place], [address], [facility] 4 11:41:42 Acute-on- chronic respirato ry failure 77000566 Active 2023 DAVID GARRIDO NP [address], [address], [place], [address], [facility] 4 11:41:59 SARS-CoV- 2 Active 2023 DAVID GARRIDO NP [address], [address], [place], [address], [facility] 4 11:42:21 Pericardi al effusion 774787889 Active 2023 DAVID GARRIDO NP [address], [address], [place], [address], [facility] 4 11:42:33 Hyperlipi demia 44321770 Active 2023 DAVID GARRIDO NP [address], [address], [place], [address], [facility] 4 11:42:47 Periphera l vascular disease 223610672 Active 2023 DAVID GARRIDO NP [address] [facility], [address], [place], [address], [facility] 4 11:42:59 Gastroint estinal hemorrhag e 70209295 Active 2023 DAVID GARRIDO NP [address] [facility], [address], [place], [address], [facility] 4 11:43:11 Malignant tumor of lung 173113841 Active 2023 s/p LLLobectom y 2020 DAVID GARRIOD NP [address], [address], [place], [address], [facility] 4 11:43:41 Obesity 641259631 Active 2023 DAVID GARRIDO NP [address], [address], [place], [address], [place] [facility] 4 11:44:00 Fibromyal yolis 104688604 Active 2023 DAVID GARRIDO NP [address], [address], [place], [address], [facility] [employer] [facility] 4 11:44:15 Asthenia 59873452 Active 2023 DAVID GARRIDO NP [address], [address], [place], [address], [facility] [employer] [facility] 4 11:44:32 Anemia 797467378 Active 2023 DAVID GARRIDO NP [address], [address], [place], [address], [facility] 4 11:46:22 Overactiv e urinary bladder 918658910 Active 2023 DAVID GARRIDO NP [address], [address], [place], [address], [facility] [employer] [facility] 4 11:47:19 Urinary tract infectiou s disease 72268912 Active 2023 DAVID GARRIDO NP [address], [address], [place], [address], [facility] 4 11:47:55 Acute COVID-19 4220611428 Active 2023 Brynn Allen MD [address], [address], [place], [address], [facility] 4 18:03:34 Problem Notes None recorded. Medical Equipment None Reported. Allergies Allergen ID Allergen Name Allergen Category Reaction Reaction Severity Criticality Documentation Date Start Date Code Code System Note Provider Name and Address Organization Details Recorded Time cyclobenz aprine medicatio n Not available Not available Not available 05/01/2020 01456 RxNorm Not Available Not Available Not Available fentanyl medicatio n Not available Not available Not available 05/01/2020 4337 RxNorm hallu cinat ions Not Available Not Available Not Available topiramat e medicatio n Not available Not available Not available 05/01/2020 99733 RxNorm Not Available Not Available Not Available venlafaxi ne medicatio n Not available Not available Not available 05/01/2020 15825 RxNorm rash Not Available Not Available Not Available 77377 Product containin g penicilli n (product) medicatio n Not available Not available Not available 05/01/2020 80858 8001 SNOMED rash Not Available Not Available Not Available 15045 Levaquin medicatio n Not available Not available Not available 04/30/2024 90281 2 RxNorm diarr hea Not Available Not Available Not Available 91866 Substance with sulfonami de structure and antibacte rial mechanism of action (substanc e) medicatio n Not available Not available Not available 04/30/2024 88737 8003 SNOMED diarr hea Not Available Not Available Not Available Vitals Date Recorded Heart rate Respiratory rate Body temperature Oxygen saturation Oxygen saturation in Arterial blood by Pulse oximetry Systolic blood pressure Diastolic blood pressure Provider Name and Address Organization Details Last Updated DateTime 4 87 /min 18 /min 97.8 [degF] 94 % 94 % 119 mm[Hg] 62 mm[Hg] DAVID GARRIDO NP [address] [facility] [address], [place], [address], [facility] 4 11:25:49 Date Recorded Body weight Heart rate Respiratory rate Body temperature Oxygen saturation Oxygen saturation in Arterial blood by Pulse oximetry Systolic blood pressure Diastolic blood pressure Provider Name and Address Organization Details Last Updated DateTime 4 04629.3 7 g 82 /min 18 /min 99 [degF] 96 % 96 % 134 mm[Hg] 72 mm[Hg] Nadiya Jorgensen NP [address], [place], [address], [facility] 4 10:49:28 Date Recorded Body height Body mass index (BMI) Body weight Heart rate Respiratory rate Body temperature Oxygen saturation Oxygen saturation in Arterial blood by Pulse oximetry Systolic blood pressure Diastolic blood pressure Provider Name and Address Organization Details Last Updated DateTime 4 165.1 cm 31.3 kg/m2 39647.3 7 g 80 /min 18 /min 97.6 [degF] 95 % 95 % 134 mm[Hg] 72 mm[Hg] Brynn Allen MD [address], [address], [place], [address], [facility] 4 16:16:16 Date Recorded Body height Heart rate Respiratory rate Body temperature Oxygen saturation Oxygen saturation in Arterial blood by Pulse oximetry Systolic blood pressure Diastolic blood pressure Provider Name and Address Organization Details Last Updated DateTime 4 165.1 cm 94 /min 17 /min 97.3 [degF] 95 % 95 % 122 mm[Hg] 72 mm[Hg] Nadiya Jorgensen NP [address] [facility], [address], [place], [address], [facility] 4 08:54:32 Date Recorded Body height Heart rate Respiratory rate Body temperature Oxygen saturation Oxygen saturation in Arterial blood by Pulse oximetry Systolic blood pressure Diastolic blood pressure Provider Name and Address Organization Details Last Updated DateTime 4 165.1 cm 80 /min 18 /min 98 [degF] 98 % 98 % 122 mm[Hg] 72 mm[Hg] DAVID GARRIDO NP [address], [place], [address], [facility] 4 12:45:16 Social History Question Answer Notes LastModified by Organizat ion Details LastModified Time Tobacco Smoking Status Former Smoker Janna Triana [address] [facility], [address], [place], [address], [facility] 05/01/2020 14:31:11 Do You Have An Advance Directive? Yes Information not available 05/07/2024 What Is Your Level Of Alcohol Consumption? None [email or web address] Information not available 04/30/2024 What Is Your Code Status? Full Code [email or web address] Information not available 04/30/2024 Do You Or Have You Ever Used E-cigarettes Or Vape? Former User Of Electronic Cigarettes [email or web address] Information not available 04/30/2024 Where Do You Live? Apartment Lives With , Supportive [email or web address] Information not available 04/30/2024 Do You Have A Medical Power Of Operations Support Professionals? Yes Has HCP Information not available 04/30/2024 What Was The [...] How Much Tobacco Do You Smoke? No Information not available 04/30/2024 Do You Use Any Illicit Or Recreational Drugs? No [email or web address] Information not available 04/30/2024 Has Tobacco Cessation Counseling Been Provided? No [email or web address] Information not available 04/30/2024 How Many Years Have You Smoked Tobacco? 40 [email or web address] Information not available 04/30/2024 Do You Or Have You Ever Used Any Other Forms Of Tobacco Or Nicotine? Yes [email or web address] Information not available 04/30/2024 Sex: Unknown Functional Status None recorded. Mental Status None recorded. Family History Relationship Description Onset Age of this Age Resolved Age Notes LastModified by Organization Details LastModified Time Father Hypertensive disorder [email or web address] Not available 2023 11:28:51 Mother Hypertensive disorder Not available 2023 11:28:51 Mother Malignant neoplasm of uterus Not available 2023 11:29:10 Mother Chronic obstructive pulmonary disease [email or web address] Not available 2023 11:29:26 Mother Heart disease [email or web address] Not available 2023 11:29:51 Mother Mental disorder [email or web address] Not available 2023 11:30:10 Notes:mother by suicide Medical History No medical history recorded. Gynecological HistoryNo gynecological history recorded. Obstetrics History GPAL:G 0 P 0 0 0 0 Immunizations Vaccine Type Date Status Note Provider Nam e and Address Organization Details Recorded Time Tdap 6 completed Tatyana Alaniz [facility] 05/01/2024 14:41:19 pneumococcal polysaccharide PPV23 0 completed Tatyana Alaniz [facility] 05/01/2024 14:41:33 influenza, unspecified formulation 2 completed Tatyana Alaniz [facility] 05/01/2024 14:41:49 SARS-COV-2 (COVID-19) vaccine, UNSPECIFIED 1 completed Tatyana Corbin [facility] 05/01/2024 14:42:06 SARS-COV-2 (COVID-19) vaccine, UNSPECIFIED 1 completed Tatyana roach [facility] 05/01/2024 14:42:13 Past Encounters Encounter ID Performer Location Encounter Start Date Encounter Closed Date Diagnosis/Indication Diagnosis SNOMED-CT Code Diagnosis ICD10 Code Diagnosis Note [id number] Janna Triana JAYSHREE AT [address] [address] 05/01/2020 13:20:20 05/12/2020 13:44:52 Acute hypercapnic respiratory failure 073157501 J96.02 see HPItreated with steroids, BiPAP and bronchodil ators in acute carefinish steroids heremed regimen modified.P t OT to eval and treat.vladislav candis Bipolar disorder 6786365 4 F31.9 see HPI? med regimen contributi ng to resp failuredep akote, clonazapam , and amitriptyl ine reduced in acute caremonito r sxHDBH prn Essential hypertension 67806360 I10 norvasc 10 mg qdmetoprol ol changed to carvedilol in acute care ASA 82 mg qdmonitor BPs Gastroesop hageal reflux disease without esophagitis 396972504 K21.9 on PPI. monitor for sx. Coronary arteriosclerosis 40023391 I25.10 on ASA. monitor Chronic ob structive pulmonary disease 92136499 J44.9 BREO qdpredniso ne tapersuppl emental O6yvnaxly. Obstructiv e sleep apnea syndrome 14250450 G47.33 see HPI? contributi ng to resp entepdj41/ 7 BIPAP in acute care tapered to nocturnal BiPAPconti nue CPAP at nighttime. modafinil started in acute caref/u pulmonolog y outpatient Dr Kaba Chronic pain 37703593 G8 9.29 percocet prn. monitor [id number] MD JAYSHREE Mahoney AT [address] [address] 05/06/2020 12:33:46 05/12/2020 13:42:27 Chronic obstructive pulmonary disease 27830420 J44.1 see abovetx with prednisone Obstructiv e sleep apnea syndrome 28004684 G47.33 new dxsee aboveconti nue positive airway pressureco ntinue support caref/u with pulmonary Acute hype rcapnic respiratory failure 468022016 J96.02 see HPIfelt that medication s and IVY were contributi ng factorsimp roved with BiPAP and O2wean as toleratedf /u with pulmonary in placemonit or respirator y status Bipolar disorder 2165403 4 F31.89 medication s adjusted in hospitalno w ondepakote 500 mg qdmonitor for sx controlpsy ch eval prn Essential hypertension 66018234 I10 now onnorvasc 10 mg qdcoreg 12.5 mg bidmonitor bptitrate prn Gastroesop hageal reflux disease without esophagitis 109770529 K21.9 omeprazole 20 mg qdmonitor for sx control Coronary arteriosclerosis 50701485 I25.10 on ASA. monitor Chronic pain 77941996 G8 9.29 question if oxycodone was contributi ng factor to respirator y failuremon itor on percocet Asthenia 50569872 R53.1 PT OT eval and treatmonit or fall riskambula sam with walker at baseline [id number] Janna Kamilah MARTELL AT [address] [address] 05/14/2020 12:57:20 05/20/2020 14:32:57 Acute hypercapnic respiratory failure 066690665 J96.02 resolved, ? medication s and IVY were contributi ng factorsimp roved with BiPAP and O2wean as toleratedf /u with pulmonary outpatient in place Chronic ob structive pulmonary disease 30490292 J44.1 see aboveBreo qd, Ellipta qd tx with prednisone f/u outpatient Obstructiv e sleep apnea syndrome 88654883 G47.33 new dxsee aboveprovi amilcar 100mg qdcontinue positive airway pressureco ntinue support caref/u with pulmonary outpatient Bipolar disorder 9453847 4 F31.89 medication s adjusted in hospitalno w onduloxeti ne 60 mg qdamitript yline 25 mg qddepakote 500 mg qdclonapin 0.5 mg BID prnf/u outpatient Essential hypertension 58423801 I10 now onnorvasc 10 mg qdcoreg 12.5 mg bidf/u outpatient Gastroesop hageal reflux disease without esophagitis 344076624 K21.9 omeprazole 20 mg qdf/u outpatient Coronary arteriosclerosis 88726025 I25.10 on ASA. f/u outpatient Chronic pain 55119820 G8 9.29 question if oxycodone was contributi ng factor to respirator y failurenow on percocet 10/325 QID prnf/u outpatient [id number] DAVID GARRIDO NP [address] [address] 04/30/2024 11:24:50 05/01/2024 10:36:48 Asthenia 76055620 R53.1 deconditio regina due to recent infection and chronic medical conditions fall x 2 wks agoPT OT eval and tx.Goal is to return home. Chronic pain 63755558 G8 9.29 with increased c/o back pain post fall 2 wks ago.ER work up unremarkab le.PT OT eval and tx.APAP prnultram 50 mg q8 hr prnMonitor and adjust med prnRefer to in house PMR for eval. and tx. Bipolar disorder 6503389 4 F31.89 also with PTSDalso dealing with the of her son in [place] home meds:VPA 500 mg q am, 1000 mg q pmDuloxeti ne 60 mg q hsClonazep am 1 mg bidMonitor mood, behaviorsS upportive carePsych eval prn Chronic ob structive pulmonary disease 02952613 J44.1 States uses O2 PRN at home, currently not wearing, will let us know when she needs it.Continu e home meds:Incru se ellipta 1 inh qdBreo ellipta 1 inh qdMonitor resp. status. Anemia 809352805 D64.9 ??H/O GI bleedCurre ntly on:Fe SO4 325 mg bidB12 1000 mcg qdWill continue meds and trend CBCHgb. 10.4 in ER Essential hypertension 50482117 I10 Continue home meds:Hydra lazine 50 mg tidCardize m CD 240 mg qdMetoprol ol XL 50 mg qdTrend VS, adjust prn Hyperlipidemia 34657539 E78.5 Continue home meds:atorv astatin 80 mg qdfenofibr ate 160 mg qdLipid panel prn Coronary arteriosclerosis 12853124 I25.10 Meds as aboveMonit or CP status Atrial fibrillation 4943 6004 I48.91 Continue home meds:Eliqu is 5 mg bidDiltiaz em CD 240 mg qdMetoprol ol XL 50 mg qdMonitor VS, CP status, bleeding risk (h/o GI bleed) Overactive urinary bladder 355556382 N32.81 ? retention Currently with polo, states [...] Emmanuel Jama hageal reflux disease without esophagitis 937754497 K21.9 with hx. GI BleedConti nue omeprazole 20 mg bidMonitor GI sx. Urinary tr act infectious disease 74165277 N39.0 ??cefpodox jocelyne on d/c med list, but suspect this is in error as UA in ER negative and pt. reports prior UTI addressed during previous hospitaliz ation. Malignant tumor of colon 905203207 C18.9 s/p partial colectomy 2020, now with ostomyAble to perform self care.Mali nue home bowel meds:Imodi um 2 mg q6 hr prnreglan 10 mg q6 hr prnlomotil bid prnlactulo se 15 ml qd prnzofran 8 mg qid prncolace 100 mg bid prn Headache 04157443 R51.9 ??On B2 400 mg qd - will continue Hypokalemia 08609754 E87 .6 On KCL 20 meq qdMonitor BMP [id number] Nadiya Jorgensen NP [address] [address] 05/06/2024 10:44:30 05/07/2024 09:37:52 Asthenia 03628519 R53.1 deconditio regina due to recent infection and chronic medical conditions fall x 2 wks agoPT OT eval and tx.Goal is to return home. Chronic pain 17025754 G8 9.29 with increased c/o back pain post fall 2 wks ago.ER work up unremarkab le.PT OT eval and tx.APAP prnultram 50 mg q8 hr prnMonitor and adjust med prnRefer to in house PMR for eval. and tx. Bipolar disorder 8552893 4 F31.89 also with PTSDalso dealing with the of her son in [place] home meds:VPA 500 mg q am, 1000 mg q pmDuloxeti ne 60 mg q hsClonazep am 1 mg bidMonitor mood, behaviorsS upportive carePsych eval prn Chronic ob structive pulmonary disease 43159318 J44.1 States uses O2 PRN at home, currently not wearing, will let us know when she needs it.Continu e home meds:Incru se ellipta 1 inh qdBreo ellipta 1 inh qdMonitor resp. status. Anemia 367130689 D64.9 labs normal on last check, will reorder todayH/O GI bleedCurre ntly on:Fe SO4 325 mg bidB12 1000 mcg qdWill continue meds and trend CBCHgb. 10.4 in ER Essential hypertension 22455982 I10 Continue home meds:Hydra lazine 50 mg tidCardize m CD 240 mg qdMetoprol ol XL 50 mg qdTrend VS, adjust prn Hyperlipidemia 27790217 E78.5 Continue home meds:atorv astatin 80 mg qdfenofibr ate 160 mg qdLipid panel prn Coronary arteriosclerosis 59525627 I25.10 Meds as aboveMonit or CP status Atrial fibrillation 4943 6004 I48.91 Continue home meds:Eliqu is 5 mg bidDiltiaz em CD 240 mg qdMetoprol ol XL 50 mg qdMonitor VS, CP status, bleeding risk (h/o GI bleed) Overactive urinary bladder 549474167 N32.81 ?? retentionf oley removed last week, and voiding wellUA in ER neg. Currently on:oxybuti juan josé 5 mg qdbethanec hol 50 mg bidCan replace polo if still retaining and refer to Dr. Benitez Gastroesop hageal reflux disease without esophagitis 348604009 K21.9 with hx. GI BleedConti nueomepraz ole 20 mg bidMonitor GI sx. Urinary tr act infectious disease 20526183 N39.0 ??will send another urinalysis with recent increased confusion per last REGISTERED NURSE NURSERY:cefpodo bernie on d/c med list, but suspect this is in error as UA in ER negative and pt. reports prior UTI addressed during previous hospitaliz ation. Malignant tumor of colon 992598738 C18.9 cancer in remission per ER note and oncologys/ p partial colectomy 2020, now with ostomyAble to perform self care.Mali nue home bowel meds:Imodi um 2 mg q6 hr prnreglan 10 mg q6 hr prnlomotil bid prnlactulo se 15 ml qd prnzofran 8 mg qid prncolace 100 mg bid prn Hypokalemia 90312830 E87 .6 On KCL 20 meq qdMonitor BMP Acute COVID-19 516410547 8 U07.1 pt with new diagnosis of [...] or vitals daily Altered mental status 41 3069252 R41.82 pt with increased confusion from regular [...] agitationm onitor closely and redirect as able [id number] Brynn Allen MD [address] [address] 05/07/2024 16:10:17 05/08/2024 10:41:40 Acute COVID-19 6812876631 U07.1 Tested + on ppeti te still good, O2 sats good on RA.Continu e molnupirav ir 800 mg BID x 5 days and robitussin 10 m l po q 6 hours prn coughTo use dexamethas one, fluids, supplement al O2 prn for sxs.Contin ue to monitor O2 sats, temp, GI sxs and po intake. Altered mental status 41 1841817 R41.82 Likely due to Covid.Fair ly oriented right now, but apparently had some hallucinat ions earlier.Co ntinue clonazepam 1 mg q 8 hrs prn agitation in addition to usual 1 mg BID as noted below.Reor ient as needed.Mon itor. Asthenia 06878309 R53.1 PT/OT as above.Goal is to return home. Chronic pain 84151450 G8 9.29 Per fell 6 wks ago, but may have had another fall more recently.N o acute findings in ED.Needs PT/OT for strengthen ing, balance, gait training, safety and function.C ontinue fall precaution s.Monitor for safety.Con tinue APAP 650 mg q 4 hrs prn and tramadol 50 mg q 8 hrs prn.Monito r pain control and function.P M&R consult Bipolar disorder 2572076 4 F31.89 Mood good right now, but says she was very confused earlier, see above.Cont inue VPA 500 mg qam and 1000 mg qpm, duloxetine 60 mg qhs and clonazepam 1 mg BID and 1 mg q 8 hrs prn.Monito r mood and behaviorsP sych consult Chronic ob structive pulmonary disease 71761624 J44.1 Uses supplement al O2 prn at home, O2 sats have been good on RA since here.Curre ntly monitoring sats TID for covid surveillan ce and will use O2 prn to maintain sats >92%.Mali nue Incruse ellipta 62.5 mcg 1 puff qd and Breo ellipta 100/25 mcg1 puff qdMonitor resp. status. Anemia 933870205 D64.89 Hgb stable in 10-12 range.H/O GI bleedConti nue FeSO4 325 mg BID and B12 1000 mcg qdMonitor labs. Essential hypertension 10919855 I10 Good control since here.Mali nue hydralazin e 50 mg TID, diltiazem CD 240 mg qd, and metoprolol XL 50 mg qdMonitor BP and labs. Hyperlipidemia 25131557 E78.49 Continue atorvastat in 80 mg qd and fenofibrat e 160 mg qdMonitor labs as outpt. Coronary arteriosclerosis 62392605 I25.10 No recent sxs.Contin ue meds as above.Vladislav tor sxs Atrial fibrillation 4943 6004 I48.0 Rate in good control on meds as above.Cont inue eliquis 5 mg BID for AC.Monitor HR and bleeding risk. Overactive urinary bladder 702213037 N32.81 S/P retention during last hospitaliz ationNow voiding wellContin ue oxybutynin 5 mg qd and bethanecho l 50 mg BIDMonitor urinary function.U ro f/u prn. Gastroesop hageal reflux disease without esophagitis 400981135 K21.9 Hx of GI BleedConti nue omeprazole 20 mg BID.Monito r GI sxs. Urinary tr act infectious disease 03515555 N30.80 Reportedly U/A ordered yest due to increased confusion, but none sent yet.Suspec t confusion is due to Covid.But will remind nursing about obtaining urine. Malignant tumor of colon 842071367 C18.8 S/P partial colectomy 2020, with ostomy [...] BID. prnF/U with oncology as planned. Hypokalemia 12619753 E87 .6 Continue KCL 20 meq qdMonitor [facility] [id number] Nadiya Jorgensen, SADE [address] [place] [address] 05/13/2024 13:43:08 05/14/2024 13:30:16 Chronic pain 22538894 G89.29 lower back pain (Per fell 6 wks ago, possibly other falls)work up unremarkab le felt rehab appropriat epain controlled todaycontP T/OT for strengthen ing, balance, gait training, safety and function.f all precaution s.Monitor for safety.APA P 650 mg q 4 hrs prntramado l 50 mg q 8 hrs prn.Monito r pain control and function.P M&R consult Acute COVID-19 290302388 8 U07.1 Tested + on 05/05 now considered recovered with mild courseComp leted molnupirav ir 800 mg BID x 5 days and robitussin 10 m l po q 6 hours prn cough, and off isolationh allucinati ons seem resolved, likely r/t covid? with underlying dementiamo nitor for sequele Altered mental status 41 3925012 R41.82 Likely due to Covid.Fair ly oriented right now, but apparently had some hallucinat ions earlier.Co ntinue clonazepam 1 mg q 8 hrs prn agitation in addition to usual 1 mg BID as noted below.Reor ient as needed.Mon itor. Asthenia [id number] R53.1 PT/OT as above.Goal is to return home. Bipolar disorder 0638749 4 F31.89 Mood good right now, but says she was very confused earlier, see above.Cont inue VPA 500 mg qam and 1000 mg qpm, duloxetine 60 mg qhs and clonazepam 1 mg BID and 1 mg q 8 hrs prn.Monito r mood and behaviorsP sych consult Chronic ob structive pulmonary disease 25738229 J44.1 Uses supplement al O2 prn at home, O2 sats have been good on RA since here.Aimee ntly monitoring sats TID for covid surveillan ce and will use O2 prn to maintain sats >92%.Mali nue Incruse ellipta 62.5 mcg 1 puff qd and Breo ellipta 100/25 mcg1 puff qdMonitor resp. status. Anemia 228653659 D64.89 Hgb stable in 10-12 range.H/O GI bleedConti nue FeSO4 325 mg BID and B12 1000 mcg qdMonitor labs. Essential hypertension 02907914 I10 Good control since here.Mali nue hydralazin e 50 mg TID, diltiazem CD 240 mg qd, and metoprolol XL 50 mg qdMonitor BP and labs. Hyperlipidemia 96333541 E78.49 Continue atorvastat in 80 mg qd and fenofibrat e 160 mg qdMonitor labs as outpt. Coronary arteriosclerosis 73141954 I25.10 No recent sxs.Contin ue meds as above.Vladislav tor sxs Atrial fibrillation 4943 6004 I48.0 Rate in good control on meds as above.Cont inue eliquis 5 mg BID for AC.Monitor HR and bleeding risk. Overactive urinary bladder 910053892 N32.81 S/P retention during last hospitaliz ationNow voiding wellContin ue oxybutynin 5 mg qd and bethanecho l 50 mg BIDMonitor urinary function.U ro f/u prn. Gastroesop hageal reflux disease without esophagitis 668411234 K21.9 Hx of GI BleedConti nue omeprazole 20 mg BID.Monito r GI sxs. Urinary tr act infectious disease 29833775 N30.80 Reportedly U/A ordered yest due to increased confusion, but none sent yet.Suspec t confusion is due to Covid.But will remind nursing about obtaining urine. Malignant tumor of colon 062176358 C18.8 S/P partial colectomy 2020, with ostomy [...] BID. prnF/U with oncology as planned. Hypokalemia 87234092 E87 .6 Continue KCL 20 meq qdMonitor BMP [id number] DAVID GARRIDO, SADE [facility] [address] [place] [address] 05/16/2024 12:44:25 05/17/2024 14:24:13 Asthenia 31190112 R53.1 deconditio regina due to recent infection and chronic medical conditions fall x 3 wks agoPT OT eval and tx. - has made some progressWi ll be going home tomorrow with support of family, VNA, GSSS. Chronic pain 44146544 G8 9.29 with increased c/o back pain post fall 3 wks ago.ER work up unremarkab le.PT OT eval and tx. - going home tomorrowAP AP prnultram 50 mg q8 hr prn - using here on occasionMo nitor and adjust med prnReferre d to in house PMR for eval. and tx., but no reports scanned into EMR, unsure if was seen. Bipolar disorder 4861827 4 F31.89 also with PTSDalso dealing with [...] eval prn Chronic ob structive pulmonary disease 40427912 J44.1 States uses O2 PRN at home, currently not wearing, will let us know when she needs it.Continu e:Incruse ellipta 1 inh qdAdvair 250/20 1 inh qdMonitor resp. status. Anemia 265904402 D64.9 ??H/O GI bleedCurre ntly on:Fe SO4 325 mg bidB12 1000 mcg qdWill continue meds and trend CBCHgb. 10.4 in ER, currently 12.5 Essential hypertension 88500780 I10 Continue home meds:Hydra lazine 50 mg tidCardize m CD 240 mg qdMetoprol ol XL 50 mg qdTrend VS, adjust prn Hyperlipidemia 19216702 E78.5 Continue home meds:atorv astatin 80 mg qdfenofibr ate 160 mg qdLipid panel prn Coronary arteriosclerosis 37091970 I25.10 Meds as aboveMonit or CP status Atrial fibrillation 4943 6004 I48.91 Continue home meds:Eliqu is 5 mg bidDiltiaz em CD 240 mg qdMetoprol ol XL 50 mg qdMonitor VS, CP status, bleeding risk (h/o GI bleed) Overactive urinary bladder 528045199 N32.81 ? retention Admitted with a polo, states placed during hospitaliz ation earlier in the month and was sent home with it. Reports also treated for UTI.UA in ER neg.Polo removed here, voiding well, no s/s retention reported by pt. or staff. Continue:o xybutinin 5 mg qdbethanec hol 50 mg bid Gastroesop hageal reflux disease without esophagitis 433857220 K21.9 with hx. GI BleedConti nue omeprazole 20 mg bidMonitor GI sx. as outpt. Urinary tr act infectious disease 17548193 N39.0 ??cefpodox jocelyne on d/c med list, but suspect this is in error as UA in ER negative and pt. reports prior UTI addressed during previous hospitaliz ation. Malignant tumor of colon 648275691 C18.9 s/p partial colectomy 2020, now with ostomyAble to perform self care.Mali nue home bowel meds:Imodi um 2 mg q6 hr prnreglan 10 mg q6 hr prnlomotil bid prnlactulo se 15 ml qd prnzofran 8 mg qid prncolace 100 mg bid prn Headache 71860798 R51.9 ??On B2 400 mg qd - will continue Hypokalemia 86293697 E87 .6 On KCL 20 meq qdMonitor BMP as outpt. Acute COVID-19 413860745 8 U07.1 Tested + on 05/05 now considered recovered with mild courseComp leted molnupirav ir 800 mg BID x 5 dayshalluc inations seem resolved, likely r/t covid? with underlying dementiamo nitor as outpt. for sequelae Altered mental status 41 0201375 R41.82 Likely due to Covid.Fair ly oriented [...] Name 04/30/2024 2 [place] Claire Duplisea [id number] Claire Duplisea 04/30/2024 1 [place] [employer] Claire Duplisea [id number] Claire Duplisea 05/06/2024 2 [place] Claire Duplisea [id number] Claire Duplisea 05/06/2024 1 [place] [employer] Claire Duplisea [id number] Claire Duplisea 05/07/2024 2 [place] Claire Duplisea [id number] Claire Duplisea 05/07/2024 1 [place] [employer] Claire Duplisea [id number] Claire Duplisea 05/13/2024 2 [place] Claire Duplisea [id number] Claire Duplisea 05/13/2024 1 [place] [employer] Claire Duplisea [id number] Claire Duplisea 05/16/2024 2 [place] Claire Duplisea [id number] Claire Duplisea 05/16/2024 1 [place] [employer] Claire Duplisea [id number] Claire Duplisea Notes Date Note Type Note Provider Name and Address Organization Details Recorded Time 04/30/2024 text/html Claire is seen to day for initial intake. She is a 58 yo lady, admitted today to [facility] [place] [facility] [place] continued care and [place]hab after an ER eval due to back pain. She presented to [facility] [place]28[place]24 with worsening back [...] failure, PTSD, CADMOLST: DAYNE GARRIDO NP [address] [facility], [address], [place], [address], [facility] [employer] 04/30/2024 13:45:18 05/06/2024 text/html Claire is seen [...] is a 58 yo lady, admitted to [facility] from [facility] [place] for continued care and rehab after an ER eval due to back pain. Per summary: She initially presented to [facility] [place]/28[place]24 with worsening back [...] HODGE: mod. fall riskMOLST: DNI Nadiya Jorgensen, REGISTERED NURSE NURSERY [address], [address], [place], [address], [facility] [employer] 05/06/2024 12:02:31 05/07/2024 text/html This is a compli cated 58 yo woman who is here for rehab after an ED visit forworsening back pain. [facility] for AMS.Per d/c summary:58F PMH [...] and removal of the catheter. 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 Brynn Allen MD [address] [place] [address], [address], [place], [address], [employer] 05/07/2024 18:21:03 05/13/2024 text/html Claire is seen [...] a 58 yo lady, admitted today to [facility] from [facility] for continued care and rehab after an ER eval due to back pain and weakness and altered mental status. . She presented to [facility] [place] 04/28[place]24 with worsening back pain x 2 weeks after sustaining a fall at home. Work up unremarkable but would benefit from PT OT due to gross deconditioning. Details below. Since here at [facility] she has been working with therapy and [...] room. of note:[facility] for AMS.Per d/c summary:58F PMH [...] mod. fall riskMOLST: DNBrice Jorgensen, SADE [address], [address], [place], [address], [facility] [employer] 05/14/2024 09:27:31 05/16/2024 text/html Claire is seen to day for discharge.She is going home tomorrow with support of family and services. She is a 58 yo lady, admitted 04/30/24 to [facility] from [facility] for continued care and rehab after an ER eval due to back pain.She presented to [facility] 04/28/24 with worsening back [...] PTSD, CADMOLST: DNI DAVID GARRIDO NP [address], [address], [place], [address], [facility] [employer] 05/16/2024 13:17:01 OBGyn Episode No OBEpisode recorded.
--- OUTSIDE RECORDS SUMMARY | 2024-09-18 16:56 | XMS_ITS | Clinical Summary ---
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 Metal hardware in place. HYSTERECTOMY PROCEDURE: HISTORICAL HYSTERECTOMY APPENDECTOMY PROCEDURE: HISTORICAL APPENDECTOMY CHOLECYSTECTOMY PROCEDURE: HISTORICAL CHOLECYSTECTOMY BACK SURGERY PROCEDURE: HISTORICAL BACK SURGERY APPENDECTOMY PROCEDURE: OK APPENDECTOMY CHOLECYSTECTOMY PROCEDURE: OK LAPAROSCOPY SURG CHOLECYSTECTOMY Medical History Medical History [...] Upcoming Encounters Date Type Department Care Team ([facility] st Contact Info) Description 11/06/2024 3:30 PM EDT Appointment [facility] CT Scan [address] [place] [phone] 11/14/2024 1:30 PM EDT Office Visit Thoracic Surgery - [place] [address] [facility] [address] [place] [phone] Annie Hall PA [address] [facility], [address] [place] [address] Health Maintenance Due Date Last Done Comments [...] 60-74 years 1-dose series) 2023 Influenza Vaccine (Season Ended) 2025 03/23/2022, 03/09/2021, 05/10/2020, Additional history exists Hypertension/CHF/CAD Annual [...] PM EST Malignant neoplasm of sigmoid colon (CMS/HCC V24, CMS/HCC V28) BASIC METABOLIC PANEL Routine 05/17/2024 6:14 AM EST Other chcf (current) drug therapy from Last [...] Signed Date: 08/05/2024 10:57 ET Workstation ID: [id number] Transcribed By: Self Edit Transcribed Date: 08/05/2024 [...] Signed Date: 08/05/2024 10:57 ET Workstation ID: [id number] Transcribed By: Self Edit Transcribed Date: 08/05/2024 09:39 ET Aliza Ahumada MD [facility] PROCEDURES Final Result * (ABNORMAL) Basic metabolic panel (05/17/2024 6:14 AM EST) Sodium 142 133 - 145 mmol/L LAB CHEMISTRY METHOD 05/17/2024 11:20 AM EST [facility] Potassium 4.6 3.5 - 5.5 mmol/L LAB CHEMISTRY METHOD 05/17/2024 11:20 AM [facility] Chloride 104 96 - 110 mmol/L LAB CHEMISTRY METHOD 05/17/2024 11:20 AM [facility] CO2 26 21 - 32 mmol/L LAB CHEMISTRY METHOD 05/17/2024 11:20 AM [facility] Anion Gap 12(H) 3 - 11 LAB CHEMISTRY METHOD 05/17/2024 11:20 AM [facility] Glucose 102(H) 70 - 100 mg/dL LAB CHEMISTRY METHOD 05/17/2024 11:20 AM [facility] BUN 17 5 - 25 mg/dL LAB CHEMISTRY METHOD 05/17/2024 11:20 AM [facility] Creatinine 0.87 0.50 - 1.10 mg/dL LAB CHEMISTRY METHOD 05/17/2024 11:20 AM [facility] eGFR 76 >=60 mL/min/1. 73m2 LAB CHEMISTRY METHOD 05/17/2024 11:20 AM [facility] Comment:Calculation based on the??Chronic Kidney Disease Epidemiology Collaboration (CKD-EPI) equation refit??without adjustment for race. 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
== END 2024-09-18 14:12 | disposition home or self-care (01) ==
LOC: HO.HVNA 14:11
PROVIDERS: Visit Provider Internal Medicine
DX: C67.9 Malignant neoplasm of bladder, unspecified (principal)
CPT/HCPCS: 81001; 87086; 87088; 87186

== ENCOUNTER 2024-11-17 11:21 | Inpatient (IN) | payer OTHER, SELFPAY ==
--- NOTE | ~2024-11-17 | IR_ITS ---
Port removal of the left chest History: Patient has suspected port pocket infection. Procedure: The risks and benefits were discussed the patient and the consent was signed. The left anterior chest was prepped and draped in routine sterile fashion. The skin was anesthetized with 1% lidocaine. An incision was made over the previous scar. Utilizing blunt dissection, the port was removed from the chest with the catheter intact. The pocket was irrigated with 50 mL of normal saline mixed with a vancomycin antibiotic solution. The port and catheter were placed into a sterile container. The port pocket was packed with iodoform gauze leaving a 2 cm tail. A sterile dressing was applied. Complications: None. Estimated blood loss: <5 ml This procedure was performed by Israel Sheriff NP, and supervised by Jamaal Akers MD. IR/IR cvc remove tunnel w prt/poultry husbandry teacher Impression: Left port removal with pocket packed with iodoform gauze for delayed wound closure. Plan: -Port and catheter sent for culture and sensitivity as well as Gram stain. -General surgery consult appreciated for delayed primary closure management, hospitalist notified. Electronically signed by: Shady Akers MD 11/22/2024 02:03 PM EDT
--- NOTE | 2024-11-17 11:34 | ED.GENADULT ---
HPI - General Adult General Chief complaint: General Medical Stated complaint: port infection Time Seen by Provider: 11/17/24 12:18 Source: patient Mode of arrival: ambulatory Limitations: no limitations History of Present Illness ED Provider: DR. Campos HPI narrative: 59-year-old female history of metastatic lung cancer, patient now is on hospice service, sent by oncologist for infected left-sided chest wall at the Port-A-Cath site, patient stated that it was draining pus yesterday, patient has been taking doxycycline on and off for a month without resolution of the infection sent by Dr. Ahumada for IV antibiotic and admission and consider IR removal. Related Data Home Medications ?Medication ?Instructions ?Recorded ?Confirmed blood pressure monitor #1 ea 10/22/20 08/12/24 blood pressure test kit-large #1 ea 10/22/20 08/12/24 fluticasone furoate 100 1 inh inhalation DAILY 04/29/24 09/10/24 mcg-vilanterol 25 mcg/dose inhalation powder (Breo Ellipta) acetaminophen 500 mg tablet 500 mg PO Q12H PRN Pain 09/06/24 09/10/24 loperamide 2 mg capsule 4 mg PO QIDACHS 09/10/24 09/10/24 Previous Rx's ?Medication ?Instructions ?Recorded walker (Ultra-Light Rollator misc) #1 ea 09/29/23 Tub ledge vertical grab bar/ not #1 ea 03/06/24 suction bar. metoclopramide HCl 10 mg tablet 10 mg PO Q6H PRN Nausea #30 tabs 04/08/24 heavy duty adjustable hand rail #1 ea 04/22/24 omeprazole 20 mg capsule,delayed 20 mg PO BID@0630,1630 90 days 07/14/24 release #180 caps cyanocobalamin (vitamin B-12) 1,000 mcg PO DAILY #90 tabs 08/16/24 1,000 mcg tablet (Vitamin B-12) clonazepam 1 mg tablet 1 mg PO BID 30 days #60 tabs 08/29/24 ondansetron 4 mg disintegrating 4 mg PO DAILY PRN nausea and 09/06/24 tablet vomiting 5 days #10 tabs ferrous sulfate 325 mg (65 mg 325 mg PO BID #60 tabs 09/13/24 iron) tablet (FeroSul) lactulose 10 gram/15 mL oral 20 g (30 mL) PO DAILY #2,700 mL 09/13/24 solution morphine 10 mg/5 mL oral solution 5 mg (2.5 mL) PO Q4H PRN pain 09/13/24 (scale score 7-10) #100 mL oxycodone 10 mg tablet 10 mg PO Q6H PRN pain (scale score 09/13/24 7-10) #30 tabs apixaban 2.5 mg tablet (Eliquis) 2.5 mg PO BID 90 days #180 tabs 09/26/24 duloxetine 60 mg capsule,delayed 60 mg PO BEDTIME #30 caps 10/07/24 release umeclidinium 62.5 mcg/actuation 1 inh inhalation DAILY #30 ea 10/07/24 blister powder for inhalation (Incruse Ellipta) metoprolol succinate 50 mg 50 mg PO QAM #90 tabs 10/08/24 tablet,extended release 24 hr riboflavin (vitamin B2) 400 mg 400 mg PO DAILY 90 days #90 tabs 11/02/24 tablet Allergies Allergy/AdvReac Type Severity Reaction Status Date / Time Penicillins Allergy Mild Rash Verified 11/17/24 11:39 venlafaxine [From Effexor] Allergy Mild Rash Verified 11/17/24 11:39 cyclobenzaprine Allergy Unknown Unknown Verified 11/17/24 11:39 [Cyclobenzaprine] topiramate [From Topamax] Allergy Unknown Unknown Verified 11/17/24 11:39 levofloxacin [From Levaquin] AdvReac Severe Rash Verified 11/17/24 11:39 Sulfa (Sulfonamide AdvReac Severe Diarrhea Verified 11/17/24 11:39 Antibiotics) fentanyl [FENTANYL] AdvReac Intermediate Hallucinati Verified 11/17/24 11:39 ons tramadol AdvReac Intermediate Hallucinati Verified 11/17/24 11:39 ons Review of Systems Review of Systems: All other systems are reviewed and are negative Constitutional: Reports as per HPI and Reports no additional constitutional complaints Eyes: Reports as per HPI and Reports no additional eye complaints Reports system reviewed and no additional complaints, except as documented Cardiovascular: Reports as per HPI and Reports no additional cardiovascular complaints Respiratory: Reports as per HPI and Reports no additional respiratory complaints Gastrointestinal: Reports as per HPI and Reports no additional gastrointestinal complaints Genitourinary: Reports no additional female genitourinary complaints Musculoskeletal: Reports no additional musculoskeletal complaints Skin/Breast: Reports system reviewed and no additional complaints, except as docu Psychiatric: Reports no additional psychiatric complaints Endocrine: Reports no additional endocrine complaints Hematologic/Lymphatic: Reports no additional hematologic/lymphatic complaints Allergic/Immunologic: Reports no additional allergic/immunologic complaints Reports system reviewed and no additional complaints, except as documented and Reports Abnormal speech present [facility] Past Medical History Medical History Acute on chronic diastolic CHF (congestive heart failure) CHF exacerbation Respiratory failure with hypoxia and hypercapnia Chronic confusion Depression Smoker Chronic back pain Colostomy in place (~2020) Personal history of nicotine dependence Polysubstance (including opioids) dependence, binge pattern Atrial fibrillation with rapid ventricular response Congestive heart failure Restrictive lung disease COPD (chronic obstructive pulmonary disease) No natural teeth COVID-19 vaccine series completed History of COVID-19 (~04/2020) Oxygen dependent Pericardial effusion Other and unspecified hyperlipidemia Essential hypertension Peripheral vascular disease Preoperative cardiovascular examination Bilateral pneumonia Adenocarcinoma of sigmoid colon (~2020) Hypernatremia GI bleed UTI (urinary tract infection) Pleural effusion, left Colon cancer (~2020) IVY (obstructive sleep apnea) Cancer of lower lobe of left lung (~2020) GERD (gastroesophageal reflux disease) Acute and chronic respiratory failure Lung cancer Obesity Hypoventilation associated with obesity Obesity hypoventilation syndrome Respiratory failure with hypoxia and hypercapnia Rotator cuff strain Hypoxia Pneumonia Restless legs syndrome (RLS) Sleep disorder Bipolar disorder (~2009) Back pain with history of spinal surgery Renal failure Fibromyalgia Depression High cholesterol PTSD (post-traumatic stress disorder) CAD (coronary artery disease) HTN (hypertension) Surgical History History of partial colectomy (~12/2020) History of cardiac cath (~2010) History of hysterectomy (~1990) History of cholecystectomy History of appendectomy (~1982) History of colonoscopy (~08/2020) History of lobectomy of lung (~08/2020) History of esophagogastroduodenoscopy (EGD) History of bunionectomy (~1977) History of back surgery Family History Family History Maternal Aunt Breast cancer Stroke COPD (chronic obstructive pulmonary disease) Maternal Aunt Breast cancer COPD (chronic obstructive pulmonary disease) Mother Uterine cancer COPD (chronic obstructive pulmonary disease) HTN (hypertension) Heart disease Mental health disorder Maternal Uncle Stroke Paternal Grandmother Heart attack Parkinsons disease Sister Diabetes IBS (irritable bowel syndrome) Son HTN (hypertension) Substance use disorder Daughter HTN (hypertension) Father HTN (hypertension) Parkinsons disease Brother Heart disease Family/Other Mental health disorder Social History Social History Household Members: Spouse Housing: Apartment Are you a primary account executive healthcare to a significant other at home: No Do you presently have visiting nurse or other home services: Yes ([facility]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[employer]) Unable to assess alcohol history related to: Unknown Alcohol intake: never Comment: sitter at bedside Patient Tobacco Use Status: Former Tobacco user Tobacco use type: Cigarette Years Smoked: 40 Smoked in Last 30 Days: No e-Cigarette/Vaping Use: Former Use Second Hand Smoke Exposure: No Use of substances other than those prescribed or required for medical reasons: No Advance Directives: Yes Advance Directives on File: Yes Advance Directives Date on File: 10/05/22 Do you have a plan to hurt others: No Plan Patient : No service: No Current occupational status: unemployed and disabled Cognitive needs: Yes (walker ) Hearing needs: No Vision needs: No Physical Exam ED Vital Signs: Vital Signs - 24 hr 11/17/24 11:35 11/17/24 11:56 Temperature 98.3 F 98.3 F Pulse Rate 83 83 Respiratory Rate 16 16 Blood Pressure 171/72 H 171/72 H Pulse Oximetry 94 94 Oxygen Delivery Method Room Air Room Air BMI result Body Mass Index 32.1 Vital signs have been reviewed and appear to be correct. Blood pressure elevated. Heart rate normal. Respiratory rate normal. Temperature normal. Oxygen saturation normal. Appearance: Alert. Oriented X3. No acute distress. Head: Normal external exam. Normocephalic. Atraumatic. No Stanley signs noted. No raccoon eyes noted Eyes: PERRLA. EOMI. Conjunctiva and sclera normal. Eyelids normal. ENT: TM's Normal. Pharynx normal. Uvula midline. Moist mucous membranes. No trismus noted. No drooling noted. No muffled voice noted. Neck: Normal inspection. Neck supple. FROM. No adenopathy. Thyroid Normal. No meningeal signs. No neck mass noted. CVS: Normal heart rate and rhythm. Heart sound normal. No murmurs noted. Pulses normal throughout. Respiratory: No respiratory distress. Painless inspiration. Breath sounds normal. No wheezes/rales/rhonchi noted. Left chest wall Port-A-Cath site, 2 x 2 cm area of redness and hotness with no fluctuation. No accessory muscle usage noted or decreased air movement noted. Abdomen: Soft and nontender. Bowel sounds normal in all 4 quadrants. No distention noted. No organomegaly noted. No visible injury noted. Back: No CVA tenderness. Full range of motion noted. Skin: Skin warm and dry. Normal skin color. Normal skin turgor. No rashes/lesions/lacerations noted. Extremities: No lower extremity edema. Extremities exhibit normal range of motion. Extremities nontender. Neuro: Oriented X 3. Cranial nerve exam: II-XII are grossly intact No motor deficit. No sensory deficit. Reflexes normal. Course Course Course Narrative: This is a rapid medical exam. Deferred additional HPI, ROS, PE to primary provider. 59-year-old female with past medical history significant for COPD, hypertension, hyperlipidemia, atrial fibrillation, recurrent sigmoid colon adenocarcinoma, lung cancer, bladder cancer here with complaints of drainage, redness over port site. Patient reports she had an abscess over the site which drained last night. Currently on doxycycline. Here with concern for port infection. Sent in by oncology for further evaluation. PATIENT IS ON HOSPICE VSS Reevaluation(s) Reevaluation #1: Left-sided chest wall cellulitis secondary to Port-A-Cath. Patient has been taking oral doxycycline on and off for the last month with persistent of the infection, patient was sent to be admitted for IV antibiotic and removal of the Port-A-Cath. Time: 12:52 Medical Decision Making Differential Diagnosis Differential Diagnoses: The differential diagnosis associated with the presentation includes ( Hospice, infected Port-A-Cath, skin cellulitis) Discharge Plan Discharge Clinical Impression: Cellulitis of chest wall Patient Disposition: Admitted As Inpatient Prescriptions: No Action (DME) Ultra-Light Rollator Misc See Rx Instructions .Route Qty: 1 0RF Rx Instructions: As directed (DME) Tub ledge vertical grab bar/ not suction bar. See Rx Instructions .Route .MEDSUPPLY Qty: 1 0RF Rx Instructions: As directed metoclopramide HCl 10 mg Tablet 10 mg PO Q6H PRN (Reason: Nausea) Qty: 30 1RF (DME) heavy duty adjustable hand rail See Rx Instructions .Route .MEDSUPPLY Qty: 1 0RF Rx Instructions: As directed omeprazole 20 mg capsule,delayed release(DR/EC) 20 mg PO BID@0630,1630 90 Days Qty: 180 2RF cyanocobalamin (vitamin B-12) [Vitamin B-12] 1,000 mcg tablet 1,000 mcg PO DAILY Qty: 90 0RF clonazepam 1 mg tablet 1 mg PO BID 30 Days Qty: 60 0RF ferrous sulfate [FeroSul] 325 mg (65 mg iron) tablet 325 mg PO BID Qty: 60 3RF Eliquis 2.5 mg tablet 2.5 mg PO BID 90 Days Qty: 180 1RF Incruse Ellipta 62.5 mcg/actuation blister with device 1 inh inhalation DAILY Qty: 30 11RF duloxetine 60 mg capsule,delayed release(DR/EC) 60 mg PO BEDTIME Qty: 30 11RF metoprolol succinate 50 mg tablet extended release 24 hr 50 mg PO QAM Qty: 90 1RF riboflavin (vitamin B2) 400 mg tablet 400 mg PO DAILY 90 Days Qty: 90 3RF acetaminophen 500 mg Tablet 500 mg PO Q12H PRN (Reason: Pain) ondansetron 4 mg tablet,disintegrating 4 mg PO DAILY PRN (Reason: nausea and vomiting) 5 Days Qty: 10 0RF fluticasone furoate-vilanterol [Breo Ellipta] 100-25 mcg/dose blister with device 1 inh inhalation DAILY loperamide 2 mg capsule 4 mg PO QIDACHS lactulose 10 gram/15 mL Solution 20 g PO DAILY Qty: 2700 0RF oxycodone 10 mg tablet 10 mg PO Q6H PRN (Reason: pain (scale score 7-10)) Qty: 30 0RF Rx Instructions: Partial Fill upon patient request. morphine 10 mg/5 mL solution 5 mg PO Q4H PRN (Reason: pain (scale score 7-10)) Qty: 100 0RF Rx Instructions: Partial Fill upon patient request. (DME) blood pressure test kit-large Kit See Rx Instructions .ROUTE DIRECTED Qty: 1 Rx Instructions: As directed (DME) blood pressure monitor Kit See Rx Instructions .ROUTE .[facility] Qty: 1 Rx Instructions: As directed Print Language: Luxembourgish
[2024-11-17 11:35] VITALS: BP 171/72; PULSE 83; RESP 16; TEMP 36.8; O2SAT 94; BMI 32.1
[2024-11-17 11:56] VITALS: BP 171/72; PULSE 83; RESP 16; TEMP 36.8; O2SAT 94
--- NOTE | 2024-11-17 12:03 | PC.NURSE ---
59 F hospice patient presents d/t L chest port infection, red and swollen x 1 month and not responsive to oral abx. A+OX4 and RR even and unlabored. Denies SOB at this time. Pt is pleasant and cooperative. Pt will need a new port placed by IR but they are not here over the weekend.
--- NOTE | 2024-11-17 12:38 | MHC.CM.ED ---
Received notification from Chacorta Camacho RN that patient would be coming to the ER. Patient is active with their agency. Port is infected for the 2nd time. Needs to be removed. Coming to the ER due to port site being red and having drainage. Patient has been on outpatient oral antibiotics. Hospice has been working on arranging outpatient follow up to have port removed. Hospice will approve GIP admission so that port can be removed if needed. Patient came to the ER. Initial triage assessment completed by geology professor and Sun TOOL GRINDER OPERATOR. Patient was brought to ER #4. Met with patient in regards to plan of care. Hospice would allow patient to be admitted in order to have port removed. However, not sure when removal would actually be scheduled. Option of being d/c'd home with resumption of Hospice care and outpatient appointment to remove port. Patient would prefer to go home. Dr Campos aware and spoke with Dr Ahumada. Dr Ahumada is requesting patient be admitted and receive IV antiboitics so that port can be removed. Dr Campos met with patient and patient agreeable. Continue to monitor for d/c needs.
[2024-11-17] MEDS: Doxycycline Hyclate 100 MG in 0.9 % Sodium Chloride 250 ML 166.67 MG IV (14:48)
[2024-11-17 14:50] LABS: Hematocrit 41.5 % (37.0-47.0); Hemoglobin 13.6 g/dl (12.0-16.0); Mean Corpuscular HGB Conc 32.8 g/dl (31.0-35.0); Mean Corpuscular Hemoglobin 31.1 pg (27.0-33.0); Mean Corpuscular Volume 94.7 fL (80.0-98.0); Platelet Count 266 X10*3/uL (160-400); Red Blood Count 4.38 X10*6/uL (4.20-5.50); Red Cell Distribution Width 16.2 % (11.0-16.0); White Blood Count 14.5 X10*3/uL (4.8-10.8)
[2024-11-17 14:54] LABS: Alanine Aminotransferase 57 U/L (0-31); Albumin Level 3.3 g/dL (3.5-5.0); Alkaline Phosphatase 199 U/L (39-117); Anion Gap 16 (12-20); Aspartate Amino Transferase 70 U/L (5-31); Bilirubin Total 0.3 mg/dL (0.0-1.0); Blood Urea Nitrogen 11 mg/dL (9-16); Calcium 9.2 mg/dL (8.4-10.2); Carbon Dioxide 29 mmol/L (22-29); Chloride 103 mmol/L (96-108); Creatinine Clr Calc Pharmacy 119.9; Estimated Glomerular Filt Rate > 60; Glucose Random 84 mg/dL (60-115); Potassium 3.6 mmol/L (3.3-5.1); Sodium 144 mmol/L (135-145)
--- NOTE | 2024-11-17 15:07 | P.HPHOSP_ITS ---
History of Present Illness Date of Service: 11/17/24 Attending physician on admission: Chriss Bustillos Chief Complaint: Chemoport infection Claire Seth is a 59 years old woman with past medical history significant for lung CA on hospice, COPD -on home O2 2 L/min via NC, CHF, , CAD, GERD, essential hypertension, obesity and hyperlipidemia presents to emergency department for chemoport infection. She was sent by her oncologist for IV antibiotics. Patient stated that it has been red and tender over the last few days but last night started to drain pus. She denied fever, chills, head, chest, shortness of breath, abdominal pain, nausea, vomiting or diarrhea. In the ED, chills stable vital signs. Last blood pressure is 171/70. Blood workup showed no leukocytosis of 14.5. Hemoglobin and platelets are normal. Electrolytes and renal functions are normal. LFTs are elevated. ED tx: Doxycycline 100 mg IV and vancomycin 2 g IV Review of Systems 2 Review of Systems: All 12 systems were reviewed and normal except as noted in HPI. [facility] Medical History Acute on chronic diastolic CHF (congestive heart failure) CHF exacerbation Respiratory failure with hypoxia and hypercapnia Chronic confusion Depression Smoker Chronic back pain Colostomy in place (~2020) Personal history of nicotine dependence Polysubstance (including opioids) dependence, binge pattern Atrial fibrillation with rapid ventricular response Congestive heart failure Restrictive lung disease COPD (chronic obstructive pulmonary disease) No natural teeth COVID-19 vaccine series completed History of COVID-19 (~04/2020) Oxygen dependent Pericardial effusion Other and unspecified hyperlipidemia Essential hypertension Peripheral vascular disease Preoperative cardiovascular examination Bilateral pneumonia Adenocarcinoma of sigmoid colon (~2020) Hypernatremia GI bleed UTI (urinary tract infection) Pleural effusion, left Colon cancer (~2020) IVY (obstructive sleep apnea) Cancer of lower lobe of left lung (~2020) GERD (gastroesophageal reflux disease) Acute and chronic respiratory failure Lung cancer Obesity Hypoventilation associated with obesity Obesity hypoventilation syndrome Respiratory failure with hypoxia and hypercapnia Rotator cuff strain Hypoxia Pneumonia Restless legs syndrome (RLS) Sleep disorder Bipolar disorder (~2009) Back pain with history of spinal surgery Renal failure Fibromyalgia Depression High cholesterol PTSD (post-traumatic stress disorder) CAD (coronary artery disease) HTN (hypertension) Family History Maternal Aunt Breast cancer Stroke COPD (chronic obstructive pulmonary disease) Maternal Aunt Breast cancer COPD (chronic obstructive pulmonary disease) Mother Uterine cancer COPD (chronic obstructive pulmonary disease) HTN (hypertension) Heart disease Mental health disorder Maternal Uncle Stroke Paternal Grandmother Heart attack Parkinsons disease Sister Diabetes IBS (irritable bowel syndrome) Son HTN (hypertension) Substance use disorder Daughter HTN (hypertension) Father HTN (hypertension) Parkinsons disease Brother Heart disease Family/Other Mental health disorder Surgical History History of partial colectomy (~12/2020) History of cardiac cath (~2010) History of hysterectomy (~1990) History of cholecystectomy History of appendectomy (~1982) History of colonoscopy (~08/2020) History of lobectomy of lung (~08/2020) History of esophagogastroduodenoscopy (EGD) History of bunionectomy (~1977) History of back surgery Social History Household Members: Spouse Housing: Apartment Are you a primary manager wound care to a significant other at home: No Do you presently have visiting nurse or other home services: Yes ([facility] and [facility]) Unable to assess alcohol history related to: Unknown Alcohol intake: never Comment: sitter at bedside Patient Tobacco Use Status: Former Tobacco user Tobacco use type: Cigarette Years Smoked: 40 Smoked in Last 30 Days: No e-Cigarette/Vaping Use: Former Use Second Hand Smoke Exposure: No Use of substances other than those prescribed or required for medical reasons: No Advance Directives: Yes Advance Directives on File: Yes Advance Directives Date on File: 10/05/22 Do you have a plan to hurt others: No Plan Patient : No service: No Current occupational status: unemployed and disabled Cognitive needs: Yes (walker ) Hearing needs: No Vision needs: No Meds Allergies Allergy/AdvReac Type Severity Reaction Status Date / Time Penicillins Allergy Mild Rash Verified 11/17/24 11:39 venlafaxine [From Effexor] Allergy Mild Rash Verified 11/17/24 11:39 cyclobenzaprine Allergy Unknown Unknown Verified 11/17/24 11:39 [Cyclobenzaprine] topiramate [From Topamax] Allergy Unknown Unknown Verified 11/17/24 11:39 levofloxacin [From Levaquin] AdvReac Severe Rash Verified 11/17/24 11:39 Sulfa (Sulfonamide AdvReac Severe Diarrhea Verified 11/17/24 11:39 Antibiotics) fentanyl [FENTANYL] AdvReac Intermediate Hallucinati Verified 11/17/24 11:39 ons tramadol AdvReac Intermediate Hallucinati Verified 11/17/24 11:39 ons Active Medications: Current Medications Acetaminophen (Acetaminophen 325 Mg Tablet) 975 mg PO Q6H PRN PRN Reason: Pain, Mild 1-3,fever,headache Enoxaparin Sodium (Enoxaparin Sodium 40 Mg/0.4 Ml Syringe) 40 mg SUBCUT Q24H LONG Sodium Chloride (0.9 % Sodium Chloride Flush 3 Ml Syringe) 3 ml IVFLUSH QSHIFT [facility] Home Medications ?Medication ?Instructions ?Recorded ?Confirmed ?Last Taken ?Type blood pressure monitor #1 ea 10/22/20 08/12/24 11/28/20 History blood pressure test kit-large #1 ea 10/22/20 08/12/24 11/28/20 History fluticasone furoate 100 1 inh inhalation DAILY 04/29/24 11/17/24 09/05/24 History mcg-vilanterol 25 mcg/dose inhalation powder (Breo Ellipta) acetaminophen 500 mg tablet 500 mg PO Q12H PRN Pain 09/06/24 11/17/24 Unknown History loperamide 2 mg capsule 4 mg PO QIDACHS PRN Loose Stool 09/10/24 11/17/24 Unknown History bisacodyl 10 mg rectal suppository 10 mg NC DAILY PRN constipation 11/17/24 11/17/24 Unknown History clonazepam 1 mg tablet 1 mg PO TID PRN Anxiety 11/17/24 11/17/24 Unknown History dexamethasone 4 mg tablet 4 mg PO QAM 11/17/24 11/17/24 Unknown History diltiazem HCl 120 mg 120 mg PO BEDTIME 11/17/24 11/17/24 Unknown History capsule,extended release 24 hr, controlled (DILT-XR) diphenoxylate-atropine 2.5 2 tab PO TID PRN Diarrhea 11/17/24 11/17/24 Unknown History mg-0.025 mg tablet divalproex 500 mg tablet,delayed 500 mg PO BID 11/17/24 11/17/24 Unknown History release docusate sodium 100 mg capsule 100 mg PO DAILY PRN constipation 11/17/24 11/17/24 Unknown History doxycycline hyclate 100 mg capsule 100 mg PO BID 11/17/24 11/17/24 Unknown History fentanyl 75 mcg/hr transdermal 1 patch topical Q3D pain 11/17/24 11/17/24 11/17/24 10:00 History patch haloperidol 0.5 mg tablet 0.5 mg PO Q6H PRN nausea/agitation 11/17/24 11/17/24 Unknown History hyoscyamine sulfate 0.125 mg 0.125 mg sublingual Q4H PRN 11/17/24 11/17/24 Unknown History sublingual tablet Secretions lorazepam 0.5 mg tablet 0.5 mg PO Q4H PRN anxiety 11/17/24 11/17/24 Unknown History morphine 10 mg/5 mL oral solution 5 mg PO Q4H PRN pain 11/17/24 11/17/24 Unknown History morphine concentrate 100 mg/5 mL 5 mg PO Q1H PRN pain/dyspnea 11/17/24 11/17/24 Unknown History (20 mg/mL) oral solution ondansetron 4 mg disintegrating 4 mg PO Q8H PRN nausea and vomiting 11/17/24 11/17/24 Unknown History tablet oxybutynin chloride 10 mg 10 mg PO DAILY 11/17/24 11/17/24 Unknown History tablet,extended release 24 hr oxycodone 10 mg tablet 10 mg PO Q4H PRN pain (scale score 11/17/24 11/17/24 Unknown History 7-10) Physical Exam 2 Vital Signs and Narrative: Vital Signs: Last Vital Signs Temp 98.3 F 11/17/24 11:56 Pulse 83 11/17/24 11:56 Resp 16 11/17/24 11:56 BP 171/72 H 11/17/24 11:56 Pulse Ox 94 11/17/24 11:56 O2 Del Method Room Air 11/17/24 11:56 BMI result Body Mass Index 32.1 Constitutional - somnolent, but easy to arouse, no apparent distress. Pleasant. Cooperative. Obese. HEENT - PER, EOMI. Heart - RRR, No murmurs. Lungs - Normal lung expansion, Normal respiratory effort, No respiratory distress, CTA bilaterally Chest - left: Erythematous and tenderness over port, spontaneously draining purulence discharge. Gastrointestinal - NT / ND; +BS; No rebound or guarding Extremities - no calf tenderness bilaterally, no swelling Musculoskeletal - Normal inspection, normal ROM Skin - Warm/Dry Neurological - Somnolent. Easy to arouse. No facial droop. No focal weakness nausea noted. Normal speech. Psychological - Appropriate affect Results Labs 11/17/24 14:35 11/17/24 14:35 Labs: Laboratory Results - last 24 hr 11/17/24 14:35 MCV 94.7 MCH 31.1 MCHC 32.8 RDW 16.2 H Plt Count 266 MPV 10.0 Immature Gran % (Auto) Cancelled Neut % (Auto) Cancelled Lymph % (Auto) Cancelled [place] % (Auto) Cancelled Eos % (Auto) Cancelled Baso % (Auto) Cancelled Lymph # (Auto) Cancelled [place] # (Auto) Cancelled Eos # (Auto) Cancelled Baso # (Auto) Cancelled Abs Immat Gran (auto) Cancelled Absolute Neuts (auto) Cancelled Absolute Nucleated RBC 0.000 Nucleated RBC % (auto) 0.0 Anion Gap 16 Estim Creat Clear Calc 119.9 Estimated GFR > 60 Random Glucose 84 Calcium 9.2 Total Bilirubin 0.3 AST 70 H ALT 57 H Alkaline Phosphatase 199 H Total Protein 6.0 L Albumin 3.3 L Assessment and Plan (1) Cellulitis of chest wall: Status: Acute (2) Infection due to Port-A-Cath: Qualifiers: Encounter type: initial encounter Qualified Code(s): T80.219A - Unspecified infection due to central venous catheter, initial encounter Status: Acute Plan Claire Seth is a 59 years old woman with past medical history significant for lung CA on hospice admitted: * Port-A-Cath infection/abscess, spontaneously draining. Admit to hospitalist service [facility] hospice. Empiric IV antibiotic therapy with vancomycin and cefepime. IR consult for device removal. * Lung CA on hospice. Fentanyl patch, morphine, Tylenol, oxycodone, Zofran, Imodium, Ativan, Haldol, Colace, diphenoxylate/atropine p.r.n.. * GERD. Continue omeprazole. * Atrial fibrillation. Sodium Eliquis, metoprolol and diltiazem. * Elevated LFT. Likely related to medications and fatty liver. Continue to monitor. * IVY/obesity hypoventilatory syndrome. Not using CPAP. * Chronic COPD. On home oxygen 2 L/min. Continue Breo * Mood disorder. Continue divalproex, duloxetine * Hyperlipidemia. Not taking meds for this. DVT prophylaxis: Eliquis Code status: DNR/DNI Patient will need hospitalization for at least 2 midnights for Port-A-Cath infection/abscess treatment with IV antibiotics and device removal. Quality Stroke Does the patient have a stroke diagnosis?: No VTE Prior VTE?: No VTE Risk Level:: Medical - moderate - high VTE Device Contraindication: Treatment Not Indicated VTE Drug Contraindication: N/A - Med Ordered
--- NOTE | 2024-11-17 15:12 | PC.NURSE ---
Assumed care of this patient a 1500, patient currently admitted [facility], awaiting bed assignment at this time.
[2024-11-17 16:04] LABS: Band Neutrophils Percent 11 % (3-5); Lymphocytes Absolute Manual 2.9 X10*3/uL (1.2-4.9); Lymphocytes Percent Manual 20 % (20-40); Metamyelocytes Absolute 0.3 X10*3/uL; Metamyelocytes Percent 2 %; Monocytes Percent Manual 7 % (2-11); Myelocytes Absolute 0.3 X10*/uL; Myelocytes Percent 2 %; Neutrophils Percent Manual 58 % (45-73)
[2024-11-17 16:06] LABS: Platelet Estimate NORMAL (NORMAL); Platelet Morphology Comment NORMAL; RBC Morphology NORMAL
[2024-11-17] MEDS: 0.9 % Sodium Chloride Flush 3 ML SYRINGE IVFLUSH (16:53)
[2024-11-17] MEDS: vancomycin/NS 2,000 MG/500 ML PLAST..BAG 250 MG IV (16:53)
[2024-11-17] MEDS: cefEPime HCl 1 GM in 0.9 % Sodium Chloride 50 ML IV (16:55)
--- NOTE | 2024-11-17 18:27 | PHA.MEDREC ---
Addendum entered by Franklin Cohen RPh 11/17/24 18:42: MED REC REVIEWED BY [facility] Original Note: Pharmacy Consult ? Medication Reconciliation Pharmacy has completed the medication reconciliation. Spoke with registered nurse practitioner Hospice nurse to confirm medications. Patient and hospice nurse confirmed Fentanyl patch was applied this morning around 10 AM.
[2024-11-17 18:44] VITALS: BP 148/81; PULSE 89; RESP 16; TEMP 36.6; O2SAT 96
[2024-11-17] MEDS: HYDROmorphone HCl 0.5 MG/0.5 ML SYRINGE IVPUSH ×2 (18:45→22:27)
[2024-11-17 21:16] VITALS: BP 213/101; PULSE 94; RESP 16; TEMP 37; O2SAT 98
[2024-11-17 21:19] VITALS: BP 213/101; PULSE 90
[2024-11-17] MEDS: dilTIAZem HCL CD 120 MG CAP.ER.DEG PO (21:19)
[2024-11-17] MEDS: Divalproex Sodium 500 MG TABLET.DR PO (21:19)
[2024-11-17] MEDS: DULoxetine HCl 60 MG CAPSULE.DR PO (21:19)
[2024-11-17] MEDS: Apixaban 2.5 MG TABLET PO (21:19)
[2024-11-17] MEDS: clonazePAM 1 MG TABLET PO (21:34)
[2024-11-17] MEDS: Loperamide HCl 2 MG CAPSULE 4 MG PO (22:26)
[2024-11-17 22:30] VITALS: BP 187/71
[2024-11-18] MEDS: 0.9 % Sodium Chloride Flush 3 ML SYRINGE IVFLUSH ×4 (00:22→19:44)
[2024-11-18] MEDS: HYDROmorphone HCl 0.5 MG/0.5 ML SYRINGE IVPUSH ×4 (02:10→23:09)
[2024-11-18] MEDS: LORazepam 0.5 MG TABLET PO ×2 (02:10→19:44)
[2024-11-18 03:45] VITALS: BP 181/77; PULSE 96; RESP 16; TEMP 36.9; O2SAT 97
[2024-11-18] MEDS: Ondansetron ODT 4 MG TAB.RAPDIS TRANSLINGU ×2 (03:48→19:44)
[2024-11-18] MEDS: cefEPime HCl 1 GM in 0.9 % Sodium Chloride 50 ML IV ×2 (03:48→15:57)
[2024-11-18 04:58] LABS: Hematocrit 43.6 % (37.0-47.0); Mean Corpuscular HGB Conc 32.1 g/dl (31.0-35.0); Mean Corpuscular Hemoglobin 31.2 pg (27.0-33.0); Mean Corpuscular Volume 97.1 fL (80.0-98.0); Mean Platelet Volume 10.1 fL (9.4-12.3); Platelet Count 257 X10*3/uL (160-400); Red Blood Count 4.49 X10*6/uL (4.20-5.50); Red Cell Distribution Width 16.2 % (11.0-16.0); White Blood Count 13.7 X10*3/uL (4.8-10.8)
[2024-11-18 05:22] LABS: Anion Gap 18 (12-20); Blood Urea Nitrogen 8 mg/dL (9-16); Calcium 9.1 mg/dL (8.4-10.2); Carbon Dioxide 24 mmol/L (22-29); Chloride 103 mmol/L (96-108); Creatinine Clr Calc Pharmacy 130.4; Estimated Glomerular Filt Rate > 60; Glucose Random 94 mg/dL (60-115); Magnesium 1.3 mg/dL (1.6-2.6); Potassium 4.6 mmol/L (3.3-5.1); Sodium 140 mmol/L (135-145)
[2024-11-18 05:28] LABS: Band Neutrophils Percent 3 % (3-5); Giant Platelet PRESENT; Large Platelet PRESENT; Lymphocytes Absolute Manual 3.2 X10*3/uL (1.2-4.9); Lymphocytes Percent Manual 23 % (20-40); Macrocytosis 1+ (5-14) /OIF; Metamyelocytes Absolute 0.5 X10*3/uL; Metamyelocytes Percent 4 %; Monocytes Absolute Manual 0.4 X10*3/uL (0.1-1.2); Monocytes Percent Manual 3 % (2-11); Myelocytes Absolute 0.4 X10*/uL; Myelocytes Percent 3 %; Neutrophils Absolute Manual 9.2 X10*3/uL (2.0-8.3); Neutrophils Percent Manual 64 % (45-73); Platelet Estimate NORMAL (NORMAL); Platelet Morphology Comment NOTED; RBC Morphology NOTED
[2024-11-18 05:29] LABS: Microcytosis 1+ (5-14) /OIF; Tear Drop Cells 1+ (0-2) /OIF
[2024-11-18 05:30] LABS: Hypochromasia 1+ (5-14) /OIF; Ovalocytes 1+ (5-14) /OIF; Smudge Cells PRESENT; Toxic Vacuolation PRESENT
[2024-11-18] MEDS: Magnesium Sulfate/H2O 2 GM/50 ML PIGGYBACK IV (05:52)
[2024-11-18] MEDS: Omeprazole 20 MG CAPSULE.DR PO ×2 (05:52→15:54)
[2024-11-18] MEDS: oxyCODONE HCl Immed Release 5 MG TABLET 10 MG PO ×3 (05:53→18:39)
[2024-11-18] MEDS: vancomycin HCL 1,000 MG in 0.9 % Sodium Chloride 250 ML 270 MG IV ×2 (06:00→17:39)
[2024-11-18] MEDS: clonazePAM 1 MG TABLET PO ×2 (07:27→22:31)
[2024-11-18] MEDS: Tiotropium Bromide 2.5 mcg 1 PUFF/2.5 MCG MIST.INHAL 2 PUFF INHALE (08:01)
[2024-11-18] MEDS: Fluticasone/Vilanterol 100/25 BLST.W.DEV 1 PUFF INHALE (08:02)
[2024-11-18 08:05] VITALS: PULSE 91; RESP 18; O2SAT 94
[2024-11-18] MEDS: oxyBUTYnin chloride ER 5 MG TAB.ER.24 10 MG PO (09:04)
[2024-11-18] MEDS: Divalproex Sodium 500 MG TABLET.DR PO ×2 (09:04→19:44)
[2024-11-18] MEDS: Metoprolol Succinate ER 50 MG TAB.ER.24H PO (09:05)
[2024-11-18] MEDS: Apixaban 2.5 MG TABLET PO (09:05)
--- NOTE | 2024-11-18 09:14 | MHC.EDTECH ---
pt found wandering to bathroom without assistance. T/w reported to MARIAMA Jesus. Pt back in bed with bed alarm on.
--- NOTE | 2024-11-18 09:26 | PC.NURSE ---
Pt ambulated to and from BR with walker. Tolerated well. NAD, pain improving
--- NOTE | 2024-11-18 09:30 | MHC.CM.PN ---
pt is gip cm will follow w/hospice
[2024-11-18] MEDS: dexAMETHasone 4 MG TABLET PO (09:34)
[2024-11-18 10:42] VITALS: BMI 32.9
[2024-11-18 10:48] VITALS: BP 126/53; PULSE 72; RESP 16; TEMP 36.7; O2SAT 94
[2024-11-18 14:36] VITALS: BMI 32.9
--- NOTE | 2024-11-18 14:49 | MHC.CLN ---
NUTRITION NO DIET ORDER. PLAN FOR SX RELATED TO PORT A CATH INFECTION. RECENT POOR PO REPORTED. REVIEW OF WEIGHT HX SHOWS NO SIGNIFICANT WEIGHT CHANGE X ONE YEAR. PATIENT RECEIVING [facility] LEVEL OF CARE. RD TO FOLLOW UP WEEKLY.
--- NOTE | 2024-11-18 14:50 | HO.PM.IMPN ---
Subjective Subjective Date of Service: 11/18/24 Interval History: No acute issues overnight. Remains afebrile Review of Systems Denies chest pain Denies shortness of breath Denies nausea vomiting diarrhea Denies fever chills Physical Exam Vital Signs: Vital Signs: Last Vital Signs Temp 98.0 F 11/18/24 10:48 Pulse 72 11/18/24 10:48 Resp 16 11/18/24 10:48 BP 126/53 L 11/18/24 10:48 Pulse Ox 94 11/18/24 10:48 O2 Del Method Room Air 11/18/24 10:48 BMI result Body Mass Index 32.9 Const: Other: Awake alert no acute distress Chest: Other: See admission photos for Port-A-Cath site Resp: Other: Clear to auscultation bilaterally no rales rhonchi or wheezes Cardio: Other: No S4; positive S1-S2; no S3 murmurs rubs or gallops GI: Other: Soft nontender nondistended normoactive bowel sounds Extrem: Other: No edema bilaterally Objective Data Active Medications Acetaminophen (Acetaminophen 325 Mg Tablet) 975 mg PO Q6H PRN PRN Reason: Pain, Mild 1-3,fever,headache Apixaban (Apixaban 2.5 Mg Tablet) 2.5 mg PO BID [facility] Last Admin: 11/18/24 09:05 Dose: 2.5 mg Documented By: EVENS Bisacodyl (Bisacodyl 10 Mg Supp.Rect) 10 mg NC DAILY PRN PRN Reason: constipation Clonazepam (Clonazepam 1 Mg Tablet) 1 mg PO TID PRN PRN Reason: Anxiety Last Admin: 11/18/24 07:27 Dose: 1 mg Documented By: EVENS Dexamethasone (Dexamethasone 4 Mg Tablet) 4 mg PO DAILY [facility] Last Admin: 11/18/24 09:34 Dose: 4 mg Documented By: EVENS Diltiazem HCl (Diltiazem Hcl Cd 120 Mg Cap.Er.Deg) 120 mg PO BEDTIME [facility]; Protocol Last Admin: 11/17/24 21:19 Dose: 120 mg Documented By: AMOS Diphenoxylate HCl/Atropine (Diphenoxylate/Atrop 2.5/0.025 Tablet) 2 tab PO TID PRN PRN Reason: Diarrhea Divalproex Sodium (Divalproex Sodium 500 Mg Tablet.) 500 mg PO BID [facility] Last Admin: 11/18/24 09:04 Dose: 500 mg Documented By: EVENS Docusate Sodium (Docusate Sodium 100 Mg Capsule) 100 mg PO DAILY PRN PRN Reason: constipation Duloxetine HCl (Duloxetine Hcl 60 Mg Capsule.) 60 mg PO BEDTIME [facility] Last Admin: 11/17/24 21:19 Dose: 60 mg Documented By: AMOS Fentanyl (Fentanyl 75 Mcg Patch.Td72) 75 mcg TRANSDERMA Q3D [facility] Fluticasone/Vilanterol (Fluticasone/Vilanterol 100/ Blst.W.Dev) 1 puff INHALE RDAILY [facility] Last Admin: 11/18/24 08:02 Dose: 1 puff Documented By: DMITRY Haloperidol (Haloperidol 0.5 Mg Tablet) 0.5 mg PO Q6H PRN PRN Reason: nausea/agitation Hydromorphone HCl (Hydromorphone Hcl 0.5 Mg/0.5 Ml Syringe) 0.5 mg IVPUSH Q3H PRN; Protocol PRN Reason: Pain, Severe (Pain Scale 7-10) Last Admin: 11/18/24 07:27 Dose: 0.5 mg Documented By: EVENS Cefepime HCl 1 gm/ Sodium (Chloride) 50 mls @ 100 mls/hr IV Q12H [facility] Last Infusion: 11/18/24 04:30 Dose: Infused Documented By: AMOS Vancomycin HCl 1,000 mg/ (Sodium Chloride) 270 mls @ 270 mls/hr IV Q12H [facility] Last Infusion: 11/18/24 09:00 Dose: Infused Documented By: EVENS Loperamide HCl (Loperamide Hcl 2 Mg Capsule) 4 mg PO QIDACHS PRN PRN Reason: Loose Stool Last Admin: 11/17/24 22:26 Dose: 4 mg Documented By: AMOS Lorazepam (Lorazepam 0.5 Mg Tablet) 0.5 mg PO Q4H PRN PRN Reason: anxiety Last Admin: 11/18/24 02:10 Dose: 0.5 mg Documented By: AMOS Metoprolol Succinate (Metoprolol Succinate Er 50 Mg Tab.Er.24h) 50 mg PO DAILY [facility]; Protocol Last Admin: 11/18/24 09:05 Dose: 50 mg Documented By: EVENS Non-Formulary Medication (Hyoscyamine Sulfate) 0.125 mg PO Q4H PRN PRN Reason: Secretions Omeprazole (Omeprazole 20 Mg Capsule.Dr) 20 mg PO BID@0630,1630 [facility] Last Admin: 11/18/24 05:52 Dose: 20 mg Documented By: AMOS Ondansetron HCl (Ondansetron Odt 4 Mg Tab.Rapdis) 4 mg TRANSLINGU Q8H PRN PRN Reason: nausea and vomiting Last Admin: 11/18/24 03:48 Dose: 4 mg Documented By: AMOS Oxybutynin Chloride (Oxybutynin Chloride Er 5 Mg Tab.Er.24) 10 mg PO DAILY [facility] Last Admin: 11/18/24 09:04 Dose: 10 mg Documented By: EVENS Oxycodone HCl (Oxycodone Hcl Immed Release 5 Mg Tablet) 10 mg PO Q4H PRN PRN Reason: pain (scale score 7-10) Last Admin: 11/18/24 14:10 Dose: 10 mg Documented By: NEFTALY Pharmacy Consult (Consult Rx Vancomycin Dosing) 1 each MISCELLANE DAILY PRN PRN Reason: Consult order Sodium Chloride (0.9 % Sodium Chloride Flush 3 Ml Syringe) 3 ml IVFLUSH QSHIFT [facility] Last Admin: 11/18/24 09:03 Dose: 3 ml Documented By: EVENS Tiotropium Star (Tiotropium Star 2.5 Mcg 1 Puff/2.5 Mcg Mist.Inhal) 2 puff INHALE RDAILY [facility] Last Admin: 11/18/24 08:01 Dose: 2 puff Documented By: DMITRY Labs 11/18/24 04:50 11/18/24 04:50 Labs: Laboratory Results - last 24 hr 11/17/24 11/18/24 14:35 04:50 MCV 94.7 97.1 MCH 31.1 31.2 MCHC 32.8 32.1 RDW 16.2 H 16.2 H Plt Count 266 257 MPV 10.0 10.1 Immature Gran % (Auto) Cancelled Cancelled Neut % (Auto) Cancelled Cancelled Lymph % (Auto) Cancelled Cancelled [place] % (Auto) Cancelled Cancelled Eos % (Auto) Cancelled Cancelled Baso % (Auto) Cancelled Cancelled Lymph # (Auto) Cancelled Cancelled [place] # (Auto) Cancelled Cancelled Eos # (Auto) Cancelled Cancelled Baso # (Auto) Cancelled Cancelled Abs Immat Gran (auto) Cancelled Cancelled Absolute Neuts (auto) Cancelled Cancelled Absolute Nucleated RBC 0.000 0.000 Nucleated RBC % (auto) 0.0 0.0 Neutrophils % (Manual) 58 64 Band Neutrophils % 11 H 3 Lymphocytes % (Manual) 20 23 Monocytes % (Manual) 7 3 Metamyelocytes % 2 4 Myelocytes % 2 3 Abs Neuts (Manual) 10.0 H 9.2 H Lymphocytes # (Manual) 2.9 3.2 Monocytes # (Manual) 1.0 0.4 Metamyelocytes # 0.3 0.5 Myelocytes # 0.3 0.4 Smudge Cells PRESENT Toxic Vacuolation PRESENT Platelet Estimate NORMAL NORMAL Large Platelets PRESENT Giant Platelets PRESENT Plt Morphology Comment NORMAL NOTED RBC Morphology NORMAL NOTED Hypochromasia 1+ (5-14) Microcytosis 1+ (5-14) Macrocytosis 1+ (5-14) Tear Drop Cells 1+ (0-2) Ovalocytes 1+ (5-14) Anion Gap 16 18 Estim Creat Clear Calc 119.9 130.4 Estimated GFR > 60 > 60 Random Glucose 84 94 Calcium 9.2 9.1 Magnesium 1.3 L* Total Bilirubin 0.3 AST 70 H ALT 57 H Alkaline Phosphatase 199 H Total Protein 6.0 L Albumin 3.3 L Assessment and Plan (1) Infection due to Port-A-Cath: Status: Acute (2) Metastatic cancer: Status: Acute Plan 59 year old female sent in by Oncology for red inflamed Port-A-Cath site with drainage. Started on broad-spectrum antibiotics overnight ...awaiting IR removal 1.Infected Port-A-Cath site -vanco/cefepime (2) -blood cultures x2 stat -consult Interventional Radiology for Port-A-Cath removal -ID consult for long-term recommendations 2. Colon/lung cancer -[facility] hospice -medications as outlined 3. AFib -stable and well compensated -Eliquis/rate control Eliquis DNR/DNI GI IP hospice Quality Stroke Does the patient have a stroke diagnosis?: No VTE Prior VTE?: No VTE Risk Level:: Medical - moderate - high VTE Device Contraindication: Treatment Not Indicated VTE Drug Contraindication: N/A - Med Ordered
[2024-11-18 15:44] VITALS: BP 139/65; PULSE 75; RESP 14; TEMP 36.1; O2SAT 95
[2024-11-18 16:40] LABS: Vancomycin Random 8.6 mcg/mL (15-20)
--- NOTE | 2024-11-18 16:43 | HE.PHANOTE ---
JADIEL Changing dose to 1000mg Q8H per subtherapeutic trough. New predicted trough 14.4, AUC 478. Next trough to be pulled 11/19 @1600.
[2024-11-18 19:33] VITALS: BP 120/58; PULSE 64; RESP 18; TEMP 35.9; O2SAT 97
[2024-11-18] MEDS: DULoxetine HCl 60 MG CAPSULE.DR PO (19:44)
[2024-11-18] MEDS: dilTIAZem HCL CD 120 MG CAP.ER.DEG PO (19:44)
[2024-11-19] VITALS (10 sets, daily range): BP systolic 119–158; BP diastolic 44–74; PULSE 57–72; RESP 12–22; TEMP 35.8–37.3; O2SAT 95–99
[2024-11-19] MEDS: HYDROmorphone HCl 0.5 MG/0.5 ML SYRINGE IVPUSH ×6 (02:13→19:41)
[2024-11-19] MEDS: vancomycin HCL 1,000 MG in 0.9 % Sodium Chloride 250 ML 270 MG IV ×2 (02:14→09:36)
[2024-11-19] MEDS: cefEPime HCl 1 GM in 0.9 % Sodium Chloride 50 ML IV ×2 (03:24→15:43)
[2024-11-19] MEDS: oxyCODONE HCl Immed Release 5 MG TABLET 10 MG PO ×3 (04:02→21:00)
[2024-11-19] MEDS: Omeprazole 20 MG CAPSULE.DR PO ×2 (05:28→15:43)
[2024-11-19 06:54] LABS: Creatinine Clr Calc Pharmacy 126.5; Estimated Glomerular Filt Rate > 60
[2024-11-19] MEDS: oxyBUTYnin chloride ER 5 MG TAB.ER.24 10 MG PO (07:31)
[2024-11-19] MEDS: Divalproex Sodium 500 MG TABLET.DR PO ×2 (07:31→19:40)
[2024-11-19] MEDS: Metoprolol Succinate ER 50 MG TAB.ER.24H PO (07:32)
[2024-11-19] MEDS: 0.9 % Sodium Chloride Flush 3 ML SYRINGE IVFLUSH ×3 (07:32→19:41)
[2024-11-19] MEDS: Acetaminophen 325 MG TABLET 975 MG PO ×2 (07:32→19:46)
[2024-11-19] MEDS: dexAMETHasone 4 MG TABLET PO (07:32)
[2024-11-19] MEDS: clonazePAM 1 MG TABLET PO ×2 (08:04→21:21)
[2024-11-19] MEDS: Tiotropium Bromide 2.5 mcg 1 PUFF/2.5 MCG MIST.INHAL 2 PUFF INHALE (08:08)
[2024-11-19] MEDS: Fluticasone/Vilanterol 100/25 BLST.W.DEV 1 PUFF INHALE (08:08)
[2024-11-19] MEDS: LORazepam 0.5 MG TABLET PO ×2 (12:19→19:40)
--- NOTE | 2024-11-19 15:21 | PM.CNGS ---
History of Present Illness Consult details Consult date: 11/19/24 Narrative: 59-year-old female with multiple medical problems including morbid obesity, metastatic lung cancer, history of colon cancer, on hospice, sent to the hospital last night by her oncologist because of redness of an old Port-A-Cath site She was diagnosed to have infected Port-A-Cath so and this was removed by IR today. We had been consulted for wound care as there was a packing in place and the patient is being planned for discharge. Her blood cultures were negative. Review of Systems Constitutional: Constitutional: Reports chills and Denies fever(s) Cardiovascular: Cardiovascular: Denies chest pain, Denies chest pain at rest and Reports dyspnea Respiratory: Respiratory: Reports dyspnea Gastrointestinal: Gastrointestinal: Denies abdominal pain Musculoskeletal: Musculoskeletal: Reports abnormal gait, Reports back pain and Reports myalgias Neurologic: Reports abnormal gait PMFSH Past Medical History Medical History Acute on chronic diastolic CHF (congestive heart failure) CHF exacerbation Respiratory failure with hypoxia and hypercapnia Chronic confusion Depression Smoker Chronic back pain Colostomy in place (~2020) Personal history of nicotine dependence Polysubstance (including opioids) dependence, binge pattern Atrial fibrillation with rapid ventricular response Congestive heart failure Restrictive lung disease COPD (chronic obstructive pulmonary disease) No natural teeth COVID-19 vaccine series completed History of COVID-19 (~04/2020) Oxygen dependent Pericardial effusion Other and unspecified hyperlipidemia Essential hypertension Peripheral vascular disease Preoperative cardiovascular examination Bilateral pneumonia Adenocarcinoma of sigmoid colon (~2020) Hypernatremia GI bleed UTI (urinary tract infection) Pleural effusion, left Colon cancer (~2020) IVY (obstructive sleep apnea) Cancer of lower lobe of left lung (~2020) GERD (gastroesophageal reflux disease) Acute and chronic respiratory failure Lung cancer Obesity Hypoventilation associated with obesity Obesity hypoventilation syndrome Respiratory failure with hypoxia and hypercapnia Rotator cuff strain Hypoxia Pneumonia Restless legs syndrome (RLS) Sleep disorder Bipolar disorder (~2009) Back pain with history of spinal surgery Renal failure Fibromyalgia Depression High cholesterol PTSD (post-traumatic stress disorder) CAD (coronary artery disease) HTN (hypertension) Family History Family History Maternal Aunt Breast cancer Stroke COPD (chronic obstructive pulmonary disease) Maternal Aunt Breast cancer COPD (chronic obstructive pulmonary disease) Mother Uterine cancer COPD (chronic obstructive pulmonary disease) HTN (hypertension) Heart disease Mental health disorder Maternal Uncle Stroke Paternal Grandmother Heart attack Parkinsons disease Sister Diabetes IBS (irritable bowel syndrome) Son HTN (hypertension) Substance use disorder Daughter HTN (hypertension) Father HTN (hypertension) Parkinsons disease Brother Heart disease Family/Other Mental health disorder Surgical History Surgical History History of partial colectomy (~12/2020) History of cardiac cath (~2010) History of hysterectomy (~1990) History of cholecystectomy History of appendectomy (~1982) History of colonoscopy (~08/2020) History of lobectomy of lung (~08/2020) History of esophagogastroduodenoscopy (EGD) History of bunionectomy (~1977) History of back surgery Social History Social History Household Members: Spouse Housing: Apartment Are you a primary care transitions manager to a significant other at home: No Do you presently have visiting nurse or other home services: Yes Unable to assess alcohol history related to: Unknown Alcohol intake: never Comment: sitter at bedside Patient Tobacco Use Status: Former Tobacco user Tobacco use type: Cigarette Years Smoked: 40 e-Cigarette/Vaping Use: Former Use Second Hand Smoke Exposure: No Advance Directives Date on File: 10/05/22 service: No Current occupational status: unemployed and disabled Cognitive needs: Yes (walker ) Hearing needs: No Vision needs: No Meds Allergies Allergy/AdvReac Type Severity Reaction Status Date / Time Penicillins Allergy Mild Rash Verified 11/17/24 11:39 venlafaxine (From Effexor) Allergy Mild Rash Verified 11/17/24 11:39 cyclobenzaprine Allergy Unknown Unknown Verified 11/17/24 11:39 (Cyclobenzaprine) topiramate (From Topamax) Allergy Unknown Unknown Verified 11/17/24 11:39 levofloxacin (From Levaquin) AdvReac Severe Rash Verified 11/17/24 11:39 Sulfa (Sulfonamide AdvReac Severe Diarrhea Verified 11/17/24 11:39 Antibiotics) fentanyl (FENTANYL) AdvReac Intermediate Hallucinati Verified 11/17/24 11:39 ons tramadol AdvReac Intermediate Hallucinati Verified 11/17/24 11:39 ons Active Medications: Current Medications Acetaminophen (Acetaminophen 325 Mg Tablet) 975 mg PO Q6H PRN PRN Reason: Pain, Mild 1-3,fever,headache Last Admin: 11/19/24 07:32 Dose: 975 mg Bisacodyl (Bisacodyl 10 Mg Supp.Rect) 10 mg [place] DAILY PRN PRN Reason: constipation Clonazepam (Clonazepam 1 Mg Tablet) 1 mg PO TID PRN PRN Reason: Anxiety Last Admin: 11/19/24 08:04 Dose: 1 mg Dexamethasone (Dexamethasone 4 Mg Tablet) 4 mg PO DAILY [facility] Last Admin: 11/19/24 07:32 Dose: 4 mg Diltiazem HCl (Diltiazem Hcl Cd 120 Mg Cap.Er.Deg) 120 mg PO BEDTIME [facility]; Protocol Last Admin: 11/18/24 19:44 Dose: 120 mg Diphenoxylate HCl/Atropine (Diphenoxylate/Atrop 2.5/0.025 Tablet) 2 tab PO TID PRN PRN Reason: Diarrhea Divalproex Sodium (Divalproex Sodium 500 Mg Tablet.Dr) 500 mg PO BID [facility] Last Admin: 11/19/24 07:31 Dose: 500 mg Docusate Sodium (Docusate Sodium 100 Mg Capsule) 100 mg PO DAILY PRN PRN Reason: constipation Duloxetine HCl (Duloxetine Hcl 60 Mg Capsule.Dr) 60 mg PO BEDTIME [facility] Last Admin: 11/18/24 19:44 Dose: 60 mg Fentanyl (Fentanyl 75 Mcg Patch.Td72) 75 mcg TRANSDERMA Q3D [facility] Fluticasone/Vilanterol (Fluticasone/Vilanterol 100/25 Blst.W.Dev) 1 puff INHALE RDAILY [facility] Last Admin: 11/19/24 08:08 Dose: 1 puff Haloperidol (Haloperidol 0.5 Mg Tablet) 0.5 mg PO Q6H PRN PRN Reason: nausea/agitation Hydromorphone HCl (Hydromorphone Hcl 0.5 Mg/0.5 Ml Syringe) 0.5 mg IVPUSH Q3H PRN; Protocol PRN Reason: Pain, Severe (Pain Scale 7-10) Last Admin: 11/19/24 12:07 Dose: 0.5 mg Cefepime HCl 1 gm/ Sodium (Chloride) 50 mls @ 100 mls/hr IV Q12H [facility] Last Infusion: 11/19/24 04:06 Dose: Infused Vancomycin HCl 1,000 mg/ (Sodium Chloride) 270 mls @ 270 mls/hr IV Q8H [facility] Last Infusion: 11/19/24 11:53 Dose: Infused Loperamide HCl (Loperamide Hcl 2 Mg Capsule) 4 mg PO QIDACHS PRN PRN Reason: Loose Stool Last Admin: 11/17/24 22:26 Dose: 4 mg Lorazepam (Lorazepam 0.5 Mg Tablet) 0.5 mg PO Q4H PRN PRN Reason: anxiety Last Admin: 11/19/24 12:19 Dose: 0.5 mg Metoprolol Succinate (Metoprolol Succinate Er 50 Mg Tab.Er.24h) 50 mg PO DAILY [facility]; Protocol Last Admin: 11/19/24 07:32 Dose: 50 mg Non-Formulary Medication (Hyoscyamine Sulfate) 0.125 mg PO Q4H PRN PRN Reason: Secretions Omeprazole (Omeprazole 20 Mg Capsule.Dr) 20 mg PO BID@0630,1630 [facility] Last Admin: 11/19/24 05:28 Dose: 20 mg Ondansetron HCl (Ondansetron Odt 4 Mg Tab.Rapdis) 4 mg TRANSLINGU Q8H PRN PRN Reason: nausea and vomiting Last Admin: 11/18/24 19:44 Dose: 4 mg Oxybutynin Chloride (Oxybutynin Chloride Er 5 Mg Tab.Er.24) 10 mg PO DAILY [facility] Last Admin: 11/19/24 07:31 Dose: 10 mg Oxycodone HCl (Oxycodone Hcl Immed Release 5 Mg Tablet) 10 mg PO Q4H PRN PRN Reason: pain (scale score 7-10) Last Admin: 11/19/24 08:04 Dose: 10 mg Pharmacy Consult (Consult Rx Vancomycin Dosing) 1 each MISCELLANE DAILY PRN PRN Reason: Consult order Sodium Chloride (0.9 % Sodium Chloride Flush 3 Ml Syringe) 3 ml IVFLUSH QSHIFT [facility] Last Admin: 11/19/24 07:32 Dose: 3 ml Tiotropium [place] (Tiotropium [place] 2.5 Mcg 1 Puff/2.5 Mcg Mist.Inhal) 2 puff INHALE RDAILY [facility] Last Admin: 11/19/24 08:08 Dose: 2 puff Home Medications ?Medication ?Instructions ?Recorded ?Confirmed ?Last Taken ?Type blood pressure monitor #1 ea 10/22/20 08/12/24 11/28/20 History blood pressure test kit-large #1 ea 10/22/20 08/12/24 11/28/20 History fluticasone furoate 100 1 inh inhalation DAILY 04/29/24 11/17/24 09/05/24 History mcg-vilanterol 25 mcg/dose inhalation powder (Breo Ellipta) acetaminophen 500 mg tablet 500 mg PO Q12H PRN Pain 09/06/24 11/17/24 Unknown History loperamide 2 mg capsule 4 mg PO QIDACHS PRN Loose Stool 09/10/24 11/17/24 Unknown History bisacodyl 10 mg rectal suppository 10 mg [place] DAILY PRN constipation 11/17/24 11/17/24 Unknown History clonazepam 1 mg tablet 1 mg PO TID PRN Anxiety 11/17/24 11/17/24 Unknown History dexamethasone 4 mg tablet 4 mg PO QAM 11/17/24 11/17/24 Unknown History diltiazem HCl 120 mg 120 mg PO BEDTIME 11/17/24 11/17/24 Unknown History capsule,extended release 24 hr, controlled (DILT-XR) diphenoxylate-atropine 2.5 2 tab PO TID PRN Diarrhea 11/17/24 11/17/24 Unknown History mg-0.025 mg tablet divalproex 500 mg tablet,delayed 500 mg PO BID 11/17/24 11/17/24 Unknown History release docusate sodium 100 mg capsule 100 mg PO DAILY PRN constipation 11/17/24 11/17/24 Unknown History doxycycline hyclate 100 mg capsule 100 mg PO BID 11/17/24 11/17/24 Unknown History fentanyl 75 mcg/hr transdermal 1 patch topical Q3D pain 11/17/24 11/17/24 11/17/24 10:00 History patch haloperidol 0.5 mg tablet 0.5 mg PO Q6H PRN nausea/agitation 11/17/24 11/17/24 Unknown History hyoscyamine sulfate 0.125 mg 0.125 mg sublingual Q4H PRN 11/17/24 11/17/24 Unknown History sublingual tablet Secretions lorazepam 0.5 mg tablet 0.5 mg PO Q4H PRN anxiety 11/17/24 11/17/24 Unknown History morphine 10 mg/5 mL oral solution 5 mg PO Q4H PRN pain 11/17/24 11/17/24 Unknown History morphine concentrate 100 mg/5 mL 5 mg PO Q1H PRN pain/dyspnea 11/17/24 11/17/24 Unknown History (20 mg/mL) oral solution ondansetron 4 mg disintegrating 4 mg PO Q8H PRN nausea and vomiting 11/17/24 11/17/24 Unknown History tablet oxybutynin chloride 10 mg 10 mg PO DAILY 11/17/24 11/17/24 Unknown History tablet,extended release 24 hr oxycodone 10 mg tablet 10 mg PO Q4H PRN pain (scale score 11/17/24 11/17/24 Unknown History 7-10) Physical Exam Vital Signs: Vital Signs: Last Vital Signs Temp 96.8 F 11/19/24 07:31 Pulse 62 11/19/24 14:10 Resp 14 11/19/24 14:10 BP 142/57 H 11/19/24 14:10 Pulse Ox 99 11/19/24 14:10 O2 Del Method Nasal Cannula 11/19/24 14:10 O2 Flow Rate 2 11/19/24 14:10 BMI result Body Mass Index 32.9 Const: Other: Appears morbidly obese General: comfortable and no acute distress Chest: Other: Fresh dressings in place on old Port-A-Cath site which was reported to be open with a packing Resp: Effort & Inspection: normal respiratory effort Cardio: Rate: regular rate GI: Palpation (GI): Soft to palpation, not firm and nontender Results Labs 11/18/24 04:50 11/20/24 05:40 Labs: Abnormal lab results 11/18/24 11/19/24 Range/Units 16:08 06:08 Creatinine 0.48 L (0.5-1.4) mg/dL Random Vancomycin 8.6 L (15-20) mcg/mL BMP 11/19/24 06:08 Creatinine 0.48 L All other labs normal. Assessment and Plan (1) Infection due to Port-A-Cath: Qualifiers: Encounter type: initial encounter Qualified Code(s): T80.219A - Unspecified infection due to central venous catheter, initial encounter Status: Acute Plan The port has been removed and has reported that the incision was left open. There is also a packing in place as per nursing staff There is a fresh dressing so I did not remove this. I would recommend removing the entire packing after 24 hours. The open wound can be then covered with clean gauze and should be changed every day She should be sent home on antibiotics If she does go home, we can follow her in the office as needed. I have discussed the above with the hospitalist service. Cultures should also be followed. Procedures Date of Service Date of Service: 11/20/24
--- NOTE | 2024-11-19 15:24 | P.PNIM_ITS ---
Subjective Subjective Date of Service: 11/19/24 Interval History: Successful removal of port. Packed with medicated iodoform by Interventional Review of Systems Denies chest pain Denies shortness of breath Denies nausea vomiting diarrhea Denies fever chills Physical Exam 2 Vital Signs: Vital Signs: Last Vital Signs Temp 96.8 F 11/19/24 07:31 Pulse 62 11/19/24 14:10 Resp 14 11/19/24 14:10 BP 142/57 H 11/19/24 14:10 Pulse Ox 99 11/19/24 14:10 O2 Del Method Nasal Cannula 11/19/24 14:10 O2 Flow Rate 2 11/19/24 14:10 BMI result Body Mass Index 32.9 Const: Other: Awake alert no acute distress Chest: Other: See admission photos for Port-A-Cath site Resp: Other: Clear to auscultation bilaterally no rales rhonchi or wheezes Cardio: Other: No S4; positive S1-S2; no S3 murmurs rubs or gallops GI: Other: Soft nontender nondistended normoactive bowel sounds Extrem: Other: No edema bilaterally Objective Data Active Medications Acetaminophen (Acetaminophen 325 Mg Tablet) 975 mg PO Q6H PRN PRN Reason: Pain, Mild 1-3,fever,headache Last Admin: 11/19/24 07:32 Dose: 975 mg Documented By: HERBER Bisacodyl (Bisacodyl 10 Mg Supp.Rect) 10 mg [place] DAILY PRN PRN Reason: constipation Clonazepam (Clonazepam 1 Mg Tablet) 1 mg PO TID PRN PRN Reason: Anxiety Last Admin: 11/19/24 08:04 Dose: 1 mg Documented By: HERBER Dexamethasone (Dexamethasone 4 Mg Tablet) 4 mg PO DAILY [facility] Last Admin: 11/19/24 07:32 Dose: 4 mg Documented By: HERBER Diltiazem HCl (Diltiazem Hcl Cd 120 Mg Cap.Er.Deg) 120 mg PO BEDTIME [facility]; Protocol Last Admin: 11/18/24 19:44 Dose: 120 mg Documented By: AMBAR Diphenoxylate HCl/Atropine (Diphenoxylate/Atrop 2.5/0.025 Tablet) 2 tab PO TID PRN PRN Reason: Diarrhea Divalproex Sodium (Divalproex Sodium 500 Mg Tablet.) 500 mg PO BID [facility] Last Admin: 11/19/24 07:31 Dose: 500 mg Documented By: HERBER Docusate Sodium (Docusate Sodium 100 Mg Capsule) 100 mg PO DAILY PRN PRN Reason: constipation Duloxetine HCl (Duloxetine Hcl 60 Mg Capsule.) 60 mg PO BEDTIME [facility] Last Admin: 11/18/24 19:44 Dose: 60 mg Documented By: AMBAR Fentanyl (Fentanyl 75 Mcg Patch.Td72) 75 mcg TRANSDERMA Q3D [facility] Fluticasone/Vilanterol (Fluticasone/Vilanterol 100/25 Blst.W.Dev) 1 puff INHALE RDAILY [facility] Last Admin: 11/19/24 08:08 Dose: 1 puff Documented By: DMITRY Haloperidol (Haloperidol 0.5 Mg Tablet) 0.5 mg PO Q6H PRN PRN Reason: nausea/agitation Hydromorphone HCl (Hydromorphone Hcl 0.5 Mg/0.5 Ml Syringe) 0.5 mg IVPUSH Q3H PRN; Protocol PRN Reason: Pain, Severe (Pain Scale 7-10) Last Admin: 11/19/24 12:07 Dose: 0.5 mg Documented By: HERBER Cefepime HCl 1 gm/ Sodium (Chloride) 50 mls @ 100 mls/hr IV Q12H [facility] Last Infusion: 11/19/24 04:06 Dose: Infused Documented By: AMBAR Vancomycin HCl 1,000 mg/ (Sodium Chloride) 270 mls @ 270 mls/hr IV Q8H [facility] Last Infusion: 11/19/24 11:53 Dose: Infused Documented By: HERBER Loperamide HCl (Loperamide Hcl 2 Mg Capsule) 4 mg PO QIDACHS PRN PRN Reason: Loose Stool Last Admin: 11/17/24 22:26 Dose: 4 mg Documented By: AMOS Lorazepam (Lorazepam 0.5 Mg Tablet) 0.5 mg PO Q4H PRN PRN Reason: anxiety Last Admin: 11/19/24 12:19 Dose: 0.5 mg Documented By: HERBER Metoprolol Succinate (Metoprolol Succinate Er 50 Mg Tab.Er.24h) 50 mg PO DAILY [facility]; Protocol Last Admin: 11/19/24 07:32 Dose: 50 mg Documented By: HERBER Non-Formulary Medication (Hyoscyamine Sulfate) 0.125 mg PO Q4H PRN PRN Reason: Secretions Omeprazole (Omeprazole 20 Mg Capsule.Dr) 20 mg PO BID@0630,1630 [facility] Last Admin: 11/19/24 05:28 Dose: 20 mg Documented By: AMBAR Ondansetron HCl (Ondansetron Odt 4 Mg Tab.Rapdis) 4 mg TRANSLINGU Q8H PRN PRN Reason: nausea and vomiting Last Admin: 11/18/24 19:44 Dose: 4 mg Documented By: AMBAR Oxybutynin Chloride (Oxybutynin Chloride Er 5 Mg Tab.Er.24) 10 mg PO DAILY [facility] Last Admin: 11/19/24 07:31 Dose: 10 mg Documented By: HERBER Oxycodone HCl (Oxycodone Hcl Immed Release 5 Mg Tablet) 10 mg PO Q4H PRN PRN Reason: pain (scale score 7-10) Last Admin: 11/19/24 08:04 Dose: 10 mg Documented By: HERBER Pharmacy Consult (Consult Rx Vancomycin Dosing) 1 each MISCELLANE DAILY PRN PRN Reason: Consult order Sodium Chloride (0.9 % Sodium Chloride Flush 3 Ml Syringe) 3 ml IVFLUSH QSHIFT [facility] Last Admin: 11/19/24 07:32 Dose: 3 ml Documented By: HERBER Tiotropium [place] (Tiotropium [place] 2.5 Mcg 1 Puff/2.5 Mcg Mist.Inhal) 2 puff INHALE RDAILY [facility] Last Admin: 11/19/24 08:08 Dose: 2 puff Documented By: DMITRY Labs 11/18/24 04:50 11/19/24 06:08 Labs: Laboratory Results - last 24 hr 11/18/24 11/19/24 16:08 06:08 Hold Purple Top SEE NOTE Estim Creat Clear Calc 126.5 Estimated GFR > 60 Random Vancomycin 8.6 L Assessment and Plan (1) Infection due to Port-A-Cath: Status: Acute Plan 59 year old female sent in by Oncology for red inflamed Port-A-Cath site with drainage. Started on broad-spectrum antibiotics overnight ...awaiting IR removal 1.Infected Port-A-Cath site -vanco/cefepime (3) -blood cultures x2 pending -interventional tunnel site packed with iodoform gauze; discussed with Dr. Wray. Remove in a.m. cover with dry dressing -ID recommends 10 days p.o. Augmentin upon discharge 2. Colon/lung cancer -[facility] hospice -medications as outlined 3. AFib -stable and well compensated -Eliquis/rate control Eliquis DNR/DNI GI IP hospice Quality Stroke Does the patient have a stroke diagnosis?: No VTE Prior VTE?: No VTE Risk Level:: Medical - moderate - high VTE Device Contraindication: Treatment Not Indicated VTE Drug Contraindication: N/A - Med Ordered
[2024-11-19 19:07] LABS: Vancomycin Random 17.1 mcg/mL (15-20)
--- NOTE | 2024-11-19 19:24 | HE.PHANOTE ---
RE: VANCO DOSING Trough came back as 17.1 mg/L and renal function is stable. Decrease dose to 1250 mg q12h, next trough is scheduled for 11/20/24@1900.
[2024-11-19] MEDS: DULoxetine HCl 60 MG CAPSULE.DR PO (19:40)
[2024-11-19] MEDS: dilTIAZem HCL CD 120 MG CAP.ER.DEG PO (19:40)
[2024-11-19] MEDS: Ondansetron ODT 4 MG TAB.RAPDIS TRANSLINGU (19:40)
[2024-11-19] MEDS: Diphenoxylate/Atrop 2.5/0.025 TABLET 2 TAB PO (20:58)
[2024-11-19] MEDS: vancomycin HCL 1,250 MG in 0.9 % Sodium Chloride 250 ML 166.67 MG IV (21:03)
[2024-11-20 02:39] VITALS: BP 159/70; PULSE 69; RESP 16; TEMP 36.3; O2SAT 96
[2024-11-20] MEDS: HYDROmorphone HCl 0.5 MG/0.5 ML SYRINGE IVPUSH ×3 (02:39→13:37)
[2024-11-20] MEDS: cefEPime HCl 1 GM in 0.9 % Sodium Chloride 50 ML IV (03:55)
[2024-11-20] MEDS: Omeprazole 20 MG CAPSULE.DR PO (05:40)
[2024-11-20 06:27] LABS: Creatinine Clr Calc Pharmacy 134.9; Estimated Glomerular Filt Rate > 60
[2024-11-20 07:14] VITALS: BP 123/60; PULSE 60; RESP 16; TEMP 36.9; O2SAT 93
[2024-11-20] MEDS: vancomycin HCL 1,250 MG in 0.9 % Sodium Chloride 250 ML 166.67 MG IV (08:09)
[2024-11-20] MEDS: oxyCODONE HCl Immed Release 5 MG TABLET 10 MG PO ×2 (08:09→11:58)
[2024-11-20] MEDS: dexAMETHasone 4 MG TABLET PO (08:10)
[2024-11-20] MEDS: Divalproex Sodium 500 MG TABLET.DR PO (08:10)
[2024-11-20] MEDS: Metoprolol Succinate ER 50 MG TAB.ER.24H PO (08:10)
[2024-11-20] MEDS: oxyBUTYnin chloride ER 5 MG TAB.ER.24 10 MG PO (08:10)
[2024-11-20] MEDS: clonazePAM 1 MG TABLET PO (08:49)
--- NOTE | 2024-11-20 09:08 | PM.PNGS ---
Subjective Subjective Date of Service: 11/20/24 Interval history: She denies new complaints No fever overnight Admits to some mild pain on the old port site Physical Exam Vital Signs: Vital Signs: Last Vital Signs Temp 98.4 F 11/20/24 07:14 Pulse 60 11/20/24 07:14 Resp 16 11/20/24 07:14 BP 123/60 11/20/24 07:14 Pulse Ox 93 11/20/24 07:14 O2 Del Method Room Air 11/20/24 07:14 O2 Flow Rate 2 11/19/24 14:10 BMI result Body Mass Index 32.9 Const: General: comfortable and no acute distress Chest: Other: Port site open wound - with long packing, packing removed, wound clean, no pus Resp: Effort & Inspection: normal respiratory effort Cardio: Rate: regular rate Objective Data Active Medications Acetaminophen (Acetaminophen 325 Mg Tablet) 975 mg PO Q6H PRN PRN Reason: Pain, Mild 1-3,fever,headache Last Admin: 11/19/24 19:46 Dose: 975 mg Documented By: AMBAR Bisacodyl (Bisacodyl 10 Mg Supp.Rect) 10 mg [place] DAILY PRN PRN Reason: constipation Clonazepam (Clonazepam 1 Mg Tablet) 1 mg PO TID PRN PRN Reason: Anxiety Last Admin: 11/20/24 08:49 Dose: 1 mg Documented By: MIRZA Dexamethasone (Dexamethasone 4 Mg Tablet) 4 mg PO DAILY FOR[facility]LY [facility], [facility] Last Admin: 11/20/24 08:10 Dose: 4 mg Documented By: NEFTALY Diltiazem HCl (Diltiazem Hcl Cd 120 Mg Cap.Er.Deg) 120 mg PO BEDTIME FOR[facility]LY [facility], [facility]; Protocol Last Admin: 11/19/24 19:40 Dose: 120 mg Documented By: AMBAR Diphenoxylate HCl/Atropine (Diphenoxylate/Atrop 2.5/0.025 Tablet) 2 tab PO TID PRN PRN Reason: Diarrhea Last Admin: 11/19/24 20:58 Dose: 2 tab Documented By: AMBAR Divalproex Sodium (Divalproex Sodium 500 Mg Tablet.Dr) 500 mg PO BID [facility]LY [facility], [facility] Last Admin: 11/20/24 08:10 Dose: 500 mg Documented By: NEFTALY Docusate Sodium (Docusate Sodium 100 Mg Capsule) 100 mg PO DAILY PRN PRN Reason: constipation Duloxetine HCl (Duloxetine Hcl 60 Mg Capsule.Dr) 60 mg PO BEDTIME FOR[facility]LY [facility], [facility] Last Admin: 11/19/24 19:40 Dose: 60 mg Documented By: AMBAR Fentanyl (Fentanyl 75 Mcg Patch.Td72) 75 mcg TRANSDERMA Q3D FOR[facility]LY [facility], [facility]–1983 Fluticasone/Vilanterol (Fluticasone/Vilanterol 100/25 Blst.W.Dev) 1 puff INHALE RDAILY FOR[facility]LY [facility], [facility] Last Admin: 11/20/24 07:36 Dose: Not Given Documented By: PEDRO LUIS Non-Admin Reason: Patient Asleep Haloperidol (Haloperidol 0.5 Mg Tablet) 0.5 mg PO Q6H PRN PRN Reason: nausea/agitation Hydromorphone HCl (Hydromorphone Hcl 0.5 Mg/0.5 Ml Syringe) 0.5 mg IVPUSH Q3H PRN; Protocol PRN Reason: Pain, Severe (Pain Scale 7-10) Last Admin: 11/20/24 08:49 Dose: 0.5 mg Documented By: MIRZA Cefepime HCl 1 gm/ Sodium (Chloride) 50 mls @ 100 mls/hr IV Q12H [facility], [facility] Last Infusion: 11/20/24 04:25 Dose: Infused Documented By: AMBAR Vancomycin HCl 1,250 mg/ (Sodium Chloride) 250 mls @ 166.667 mls/hr IV Q12H FOR[facility], [facility] Last Admin: 11/20/24 08:09 Dose: 166.67 mls/hr Documented By: NEFTALY Loperamide HCl (Loperamide Hcl 2 Mg Capsule) 4 mg PO QIDACHS PRN PRN Reason: Loose Stool Last Admin: 11/17/24 22:26 Dose: 4 mg Documented By: AMOS Lorazepam (Lorazepam 0.5 Mg Tablet) 0.5 mg PO Q4H PRN PRN Reason: anxiety Last Admin: 11/19/24 19:40 Dose: 0.5 mg Documented By: AMBAR Metoprolol Succinate (Metoprolol Succinate Er 50 Mg Tab.Er.24h) 50 mg PO DAILY [facility], [facility]; Protocol Last Admin: 11/20/24 08:10 Dose: 50 mg Documented By: NEFTALY Non-Formulary Medication (Hyoscyamine Sulfate) 0.125 mg PO Q4H PRN PRN Reason: Secretions Omeprazole (Omeprazole 20 Mg Capsule.Dr) 20 mg PO BID@0630,1630 [facility], [facility] Last Admin: 11/20/24 05:40 Dose: 20 mg Documented By: AMBAR Comments: downtime Ondansetron HCl (Ondansetron Odt 4 Mg Tab.Rapdis) 4 mg TRANSLINGU Q8H PRN PRN Reason: nausea and vomiting Last Admin: 11/19/24 19:40 Dose: 4 mg Documented By: AMBAR Oxybutynin Chloride (Oxybutynin Chloride Er 5 Mg Tab.Er.24) 10 mg PO DAILY [facility], [facility] Last Admin: 11/20/24 08:10 Dose: 10 mg Documented By: NEFTALY Oxycodone HCl (Oxycodone Hcl Immed Release 5 Mg Tablet) 10 mg PO Q4H PRN PRN Reason: pain (scale score 7-10) Last Admin: 11/20/24 08:09 Dose: 10 mg Documented By: NEFTALY Pharmacy Consult (Consult Rx Vancomycin Dosing) 1 each MISCELLANE DAILY PRN PRN Reason: Consult order Sodium Chloride (0.9 % Sodium Chloride Flush 3 Ml Syringe) 3 ml IVFLUSH QSHIFT [facility], [facility] Last Admin: 11/20/24 08:10 Dose: Not Given Documented By: NEFTALY Non-Admin Reason: IV Running Tiotropium [place] (Tiotropium [place] 2.5 Mcg 1 Puff/2.5 Mcg Mist.Inhal) 2 puff INHALE RDAILY [facility], [facility]1983 Last Admin: 11/20/24 07:36 Dose: Not Given Documented By: PEDRO LUIS Non-Admin Reason: Patient Asleep Labs 11/18/24 04:50 11/20/24 05:40 Labs: Laboratory Results - last 24 hr 11/19/24 11/20/24 16:05 05:40 Hold Purple Top SEE NOTE Estim Creat Clear Calc 134.9 Estimated GFR > 60 Random Vancomycin 17.1 Microbiology Microbiology Results: Microbiology 11/18/24 15:39 Blood Culture - Preliminary Blood - Venous No growth after 24 hours. 11/18/24 15:39 Blood Culture - Preliminary Blood - Venous No growth after 24 hours. Procedures Date of Service Date of Service: 11/20/24 Progress Note: A&P Assessment and plan (1) Infection due to Port-A-Cath: Status: Acute Assessment and Plan: The port has been removed by IR Open wound with packing noted - I removed the entire packing completely I have applied dry gauze as dressings Dressings changes to be done daily Observe good wound hygiene She is welcome to have a wound check in the office down the line Discussed with hospitalist service Time Spent With Patient Time: Total time managing care of this patient today ____ minutes. Quality Stroke Does the patient have a stroke diagnosis?: No VTE Prior VTE?: No VTE Risk Level:: Medical - moderate - high VTE Device Contraindication: Treatment Not Indicated VTE Drug Contraindication: N/A - Med Ordered
[2024-11-20] MEDS: fentaNYL 75 MCG PATCH.TD72 TRANSDERMA (10:13)
--- NOTE | 2024-11-20 10:38 | MHC.CM.PN ---
pt to be dcd debbie w/hospice ,graduate rn will take care of the dressing for the port selina will transport home
[2024-11-20 11:01] VITALS: BP 131/70; PULSE 73; RESP 16; TEMP 36.2; O2SAT 95
--- NOTE | 2024-11-20 12:43 | PM.DS ---
DS: Providers Provider Date of Service: 11/20/24 Date of admission: 11/17/24 12:57 Date of discharge: 11/20/24 Primary care physician: Chelsea Armstrong MD Consults: 11/18/24 11:18 Consult to Wound Care Routine Reason for consultation: Lt chest port infection 11/18/24 14:47 Consult to Infectious Diseases Routine Consulting Provider: [facility] [place] [facility] Reason for consultation: Infected Port-A-Cath Has provider been notified: Yes 11/19/24 14:43 Consult to General Surgery Routine Consulting Provider: [facility] [place] [facility] Reason for consultation: Musa cath removal Dressing change recommendations DS: Diagnosis Discharge Diagnosis (1) Infection due to Port-A-Cath: Status: Acute DS: Summary Hospital Course Hospital Course: 59 years old woman with past medical history significant for lung CA on hospice, COPD -on home O2 2 L/min via NC, CHF, , CAD, GERD, essential hypertension, obesity and hyperlipidemia presents to emergency department for chemoport infection. She was sent by her oncologist for IV antibiotics. Patient stated that it has been red and tender over the last few days but last night started to drain pus. She denied fever, chills, head, chest, shortness of breath, abdominal pain, nausea, vomiting or diarrhea. In the ED, chills stable vital signs. Last blood pressure is 171/70. Blood workup showed no leukocytosis of 14.5. Hemoglobin and platelets are normal. Electrolytes and renal functions are normal. LFTs are elevate [facility] Admitted to general medical floor started on cefepime and doxycycline. On 11/19 Interventional Radiology pulled her Port-A-Cath and packed with medicated iodoform. She was seen in consultation by surgery and on the day of discharge packing was removed by surgery. She will change dry dressing each day and follow up with Oncology next available. Stated her oxycodone did not work as good as the Dilaudid she received in hospital; can not switch at this time because she recently filter morphine and oxycodone. She can follow up with this at her oncology appointment Time Attestation Discharge Coordination Time (in mins): 35 Quality: Safe Use of Opioids Does Pt have an Active Cancer Diagnosis on the Problem List?: No Quality: Stroke Does the patient have a stroke diagnosis?: No Physical Exam Vital Signs: Vital Signs: Last Vital Signs Temp 97.2 F 11/20/24 11:01 Pulse 73 11/20/24 11:01 Resp 16 11/20/24 11:01 BP 131/70 11/20/24 11:01 Pulse Ox 95 11/20/24 11:01 O2 Del Method Room Air 11/20/24 11:01 O2 Flow Rate 2 11/19/24 14:10 BMI result Body Mass Index 32.9 Const: Other: Awake alert no acute distress Chest: Other: See admission photos for Port-A-Cath site Resp: Other: Clear to auscultation bilaterally no rales rhonchi or wheezes Cardio: Other: No S4; positive S1-S2; no S3 murmurs rubs or gallops GI: Other: Soft nontender nondistended normoactive bowel sounds Extrem: Other: No edema bilaterally DS: Data Data Completed and Pending Completed studies during hospitalization [Text1]: Procedures Assistance with Respiratory Ventilation, Less than 24 Consecutive Hours, Continuous Positive Airway Pressure (11/18/20) Excision of Left Lower Lung Lobe, Percutaneous Approach, Diagnostic (07/03/20) Labs on day of discharge: Laboratory Results - last 24 hr 11/19/24 11/20/24 16:05 05:40 Hold Purple Top SEE NOTE Creatinine 0.45 L Estim Creat Clear Calc 134.9 Estimated GFR > 60 Random Vancomycin 17.1 Preliminary micro results at discharge 11/19/24 13:55 Catheter Tip Culture - Preliminary Catheter Tip - Other No growth to date. 11/18/24 15:39 Blood Culture - Preliminary Blood - Venous No growth after 24 hours. 11/18/24 15:39 Blood Culture - Preliminary Blood - Venous No growth after 24 hours. Discharge Plan Discharge Anticipated Discharge Date/Time: 11/20/24 12:05 Patient Disposition: Home, Self-Care Discharge Diagnosis: Infected Port-A-Cath site [facility]Other[facility] - 1 Week Chelsea Miles MD [Primary Care Provider, Internal Medicine] - 1 Week Discharge Medications: New amoxicillin-pot clavulanate 875-125 mg tablet 1 tab PO BID Qty: 10 0RF oxycodone 10 mg tablet 10 mg PO Q4H PRN (Reason: pain) Qty: 30 0RF Rx Instructions: Partial Fill upon patient request. morphine concentrate 100 mg/5 mL (20 mg/mL) solution 100 mg PO Q4H Qty: 120 0RF Rx Instructions: Partial Fill upon patient request. morphine 10 mg/5 mL solution 10 mg PO Q1H PRN (Reason: pain) Qty: 100 0RF Rx Instructions: Partial Fill upon patient request. Continued (DME) Ultra-Light Rollator Misc See Rx Instructions .Route Qty: 1 0RF Rx Instructions: As directed (DME) Tub ledge vertical grab bar/ not suction bar. See Rx Instructions .Route .MEDSUPPLY Qty: 1 0RF Rx Instructions: As directed (DME) heavy duty adjustable hand rail See Rx Instructions .Route .MEDSUPPLY Qty: 1 0RF Rx Instructions: As directed omeprazole 20 mg capsule,delayed release(DR/EC) 20 mg PO BID@0630,1630 90 Days Qty: 180 2RF Eliquis 2.5 mg tablet 2.5 mg PO BID 90 Days Qty: 180 1RF Incruse Ellipta 62.5 mcg/actuation blister with device 1 inh inhalation DAILY Qty: 30 11RF duloxetine 60 mg capsule,delayed release(DR/EC) 60 mg PO BEDTIME Qty: 30 11RF metoprolol succinate 50 mg tablet extended release 24 hr 50 mg PO QAM Qty: 90 1RF acetaminophen 500 mg Tablet 500 mg PO Q12H PRN (Reason: Pain) haloperidol 0.5 mg tablet 0.5 mg PO Q6H PRN (Reason: nausea/agitation) oxybutynin chloride 10 mg tablet extended release 24hr 10 mg PO DAILY diphenoxylate-atropine 2.5-0.025 mg tablet 2 tab PO TID PRN (Reason: Diarrhea) divalproex 500 mg tablet,delayed release (DR/EC) 500 mg PO BID lorazepam 0.5 mg tablet 0.5 mg PO Q4H PRN (Reason: anxiety) bisacodyl 10 mg suppository 10 mg [place] DAILY PRN (Reason: constipation) dexamethasone 4 mg tablet 4 mg PO QAM hyoscyamine sulfate 0.125 mg tablet, sublingual 0.125 mg sublingual Q4H PRN (Reason: Secretions) diltiazem HCl [DILT-XR] 120 mg capsule,ext.rel 24h degradable 120 mg PO BEDTIME docusate sodium 100 mg capsule 100 mg PO DAILY PRN (Reason: constipation) fentanyl 75 mcg/hr patch 72 hour 1 patch topical Q3D clonazepam 1 mg tablet 1 mg PO TID PRN (Reason: Anxiety) ondansetron 4 mg tablet,disintegrating 4 mg PO Q8H PRN (Reason: nausea and vomiting) fluticasone furoate-vilanterol [Breo Ellipta] 100-25 mcg/dose blister with device 1 inh inhalation DAILY loperamide 2 mg capsule 4 mg PO QIDACHS PRN (Reason: Loose Stool) (DME) blood pressure test kit-large Kit See Rx Instructions .ROUTE DIRECTED Qty: 1 Rx Instructions: As directed (DME) blood pressure monitor Kit See Rx Instructions .ROUTE .MEDSUPPLY Qty: 1 Rx Instructions: As directed Discontinued morphine concentrate 100 mg/5 mL (20 mg/mL) solution 5 mg PO Q1H PRN (Reason: pain/dyspnea) morphine 10 mg/5 mL solution 5 mg PO Q4H PRN (Reason: pain) doxycycline hyclate 100 mg capsule 100 mg PO BID oxycodone 10 mg tablet 10 mg PO Q4H PRN (Reason: pain (scale score 7-10)) Rx Instructions: Partial Fill upon patient request. Discharge Orders: Discharge Order (Routine); Ordered 11/20/24 Ordered By: Allen Whitlock Diet: Advance to usual diet Activity on Discharge: As tolerated Stand Alone Forms: Patient Portal Discharge page Print Language: Stateless Care Plan Goals: Resume all medicines as taken prior to hospitalizations. Can not switch you to Dilaudid at this time. Discussed with Dr. Ahumada next visit Health Concerns: Follow up with Dr. Ahumada and went to 2 days and they will change her dressing and inspect your wound Plan of Treatment: Follow up with PCP next available Assessment: See discharge summary
[2024-11-20] MEDS: LORazepam 0.5 MG TABLET PO (13:36)
== END 2024-11-20 14:02 | disposition home or self-care (01) | DRG 315 ==
LOC: HO.ED 12:55 → HO.EDOVER 13:06 → HO.S3 11-18 08:18
PROVIDERS: Admitting Provider Internal Medicine; Emergency Provider Emergency Medicine; PCP Internal Medicine; Visit Provider Hospitalist
PROC: (CPT 36590; principal; 2024-11-19 13:00)
DX: T80.212A Local infection due to central venous catheter, initial encounter (principal); C34.32 Malignant neoplasm of lower lobe, left bronchus or lung; E66.2 Morbid (severe) obesity with alveolar hypoventilation; L03.313 Cellulitis of chest wall; L02.213 Cutaneous abscess of chest wall; Y82.9 Unspecified medical devices associated with adverse incidents; Z66 Do not resuscitate; I25.10 Atherosclerotic heart disease of native coronary artery without angina pectoris; I48.91 Unspecified atrial fibrillation; J44.9 Chronic obstructive pulmonary disease, unspecified; Z99.81 Dependence on supplemental oxygen; Z68.32 Body mass index [BMI] 32.0-32.9, adult; F39 Unspecified mood [affective] disorder; E78.5 Hyperlipidemia, unspecified; Z85.038 Personal history of other malignant neoplasm of large intestine; Z93.3 Colostomy status; Z87.891 Personal history of nicotine dependence; Z79.01 Long term (current) use of anticoagulants; Z79.51 Long term (current) use of inhaled steroids; Z79.899 Other long term (current) drug therapy
CPT/HCPCS: 36415; 36590; 80048; 80053; 80202; 82565; 83735; 85007; 85027; 87040; 87071; 94640; 99285; J0692; J1171; J1271; J1644; J2003; J2250; J3370; J3371; J3475; J8540

== ENCOUNTER 2024-11-17 12:57 | Outpatient (BNV) | payer OTHER, SELFPAY | END 2024-11-19 13:00 | PROVIDERS: Admitting Provider Internal Medicine; Emergency Provider Emergency Medicine; PCP Internal Medicine | DX: Z45.2 Encounter for adjustment and management of vascular access device (principal) | CPT/HCPCS: 36590 ==

== ENCOUNTER → 2024-11-17 12:57 | Outpatient (BNV) | payer OTHER, SELFPAY | PROVIDERS: Admitting Provider Internal Medicine; Emergency Provider Emergency Medicine; PCP Internal Medicine; Visit Provider Internal Medicine | DX: L03.313 Cellulitis of chest wall (principal); T80.219A Unspecified infection due to central venous catheter, initial encounter | CPT/HCPCS: 99222 ==

== ENCOUNTER → 2024-11-17 12:57 | Outpatient (BNV) | payer OTHER, SELFPAY | PROVIDERS: Admitting Provider Internal Medicine; Emergency Provider Emergency Medicine; PCP Internal Medicine; Visit Provider Surgery | DX: T80.219A Unspecified infection due to central venous catheter, initial encounter (principal) | CPT/HCPCS: 99222; 99232 ==

== ENCOUNTER 2024-12-05 15:29 | Inpatient (IN) | payer OTHER, SELFPAY ==
--- NOTE | 2024-12-05 14:33 | PM.IMHP ---
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 Per VNA patient has had increased confusion, adding pills to the wrong slots in pill boxes. With medications in the pill box mixed up with multiple of the same meds in different locations. Patient reporting uncontrolled pain, unclear how much p.r.n. medication patient is using. patient reporting b/l groin pain. denies sob, chest pain. Review of Systems Review of Systems: Yes all other systems are reviewed and are negative Constitutional: Constitutional: Denies chills and Denies fever(s) Cardiovascular: Cardiovascular: Denies chest pain and Denies palpitations Respiratory: Respiratory: Denies cough Gastrointestinal: Gastrointestinal: Denies nausea and Denies vomiting Endocrine: Endocrine: Denies palpitations [facility] Medical History Metastatic cancer Acute on chronic diastolic CHF (congestive heart failure) CHF exacerbation Respiratory failure with hypoxia and hypercapnia Chronic confusion Depression Smoker Chronic back pain Colostomy in place (~2020) Personal history of nicotine dependence Polysubstance (including opioids) dependence, binge pattern Atrial fibrillation with rapid ventricular response Congestive heart failure Restrictive lung disease COPD (chronic obstructive pulmonary disease) No natural teeth COVID-19 vaccine series completed History of COVID-19 (~04/2020) Oxygen dependent Pericardial effusion Other and unspecified hyperlipidemia Essential hypertension Peripheral vascular disease Preoperative cardiovascular examination Bilateral pneumonia Adenocarcinoma of sigmoid colon (~2020) Hypernatremia GI bleed UTI (urinary tract infection) Pleural effusion, left Colon cancer (~2020) IVY (obstructive sleep apnea) Cancer of lower lobe of left lung (~2020) GERD (gastroesophageal reflux disease) Acute and chronic respiratory failure Lung cancer Obesity Hypoventilation associated with obesity Obesity hypoventilation syndrome Respiratory failure with hypoxia and hypercapnia Rotator cuff strain Hypoxia Pneumonia Restless legs syndrome (RLS) Sleep disorder Bipolar disorder (~2009) Back pain with history of spinal surgery Renal failure Fibromyalgia Depression High cholesterol PTSD (post-traumatic stress disorder) CAD (coronary artery disease) HTN (hypertension) Family History Maternal Aunt Breast cancer Stroke COPD (chronic obstructive pulmonary disease) Maternal Aunt Breast cancer COPD (chronic obstructive pulmonary disease) Mother Uterine cancer COPD (chronic obstructive pulmonary disease) HTN (hypertension) Heart disease Mental health disorder Maternal Uncle Stroke Paternal Grandmother Heart attack Parkinsons disease Sister Diabetes IBS (irritable bowel syndrome) Son HTN (hypertension) Substance use disorder Daughter HTN (hypertension) Father HTN (hypertension) Parkinsons disease Brother Heart disease Family/Other Mental health disorder Surgical History History of partial colectomy (~12/2020) History of cardiac cath (~2010) History of hysterectomy (~1990) History of cholecystectomy History of appendectomy (~1982) History of colonoscopy (~08/2020) History of lobectomy of lung (~08/2020) History of esophagogastroduodenoscopy (EGD) History of bunionectomy (~1977) History of back surgery Social History Household Members: Spouse Housing: Apartment Are you a primary respiratory care specialist to a significant other at home: No Do you presently have visiting nurse or other home services: Yes Unable to assess alcohol history related to: Unknown Alcohol intake: never Comment: sitter at bedside Patient Tobacco Use Status: Former Tobacco user Tobacco use type: Cigarette Years Smoked: 40 e-Cigarette/Vaping Use: Former Use Second Hand Smoke Exposure: No Advance Directives: Yes Advance Directives on File: Yes Advance Directives Date on File: 10/05/22 service: No Current occupational status: unemployed and disabled Cognitive needs: Yes (walker ) Hearing needs: No Vision needs: No Meds Allergies Allergy/AdvReac Type Severity Reaction Status Date / Time Penicillins Allergy Mild Rash Verified 11/17/24 11:39 venlafaxine (From Effexor) Allergy Mild Rash Verified 11/17/24 11:39 cyclobenzaprine Allergy Unknown Unknown Verified 11/17/24 11:39 (Cyclobenzaprine) topiramate (From Topamax) Allergy Unknown Unknown Verified 11/17/24 11:39 levofloxacin (From Levaquin) AdvReac Severe Rash Verified 11/17/24 11:39 Sulfa (Sulfonamide AdvReac Severe Diarrhea Verified 11/17/24 11:39 Antibiotics) fentanyl (FENTANYL) AdvReac Intermediate Hallucinati Verified 11/17/24 11:39 ons tramadol AdvReac Intermediate Hallucinati Verified 11/17/24 11:39 ons Home Medications ?Medication ?Instructions ?Recorded ?Confirmed ?Last Taken ?Type blood pressure monitor #1 ea 10/22/20 08/12/24 11/28/20 History blood pressure test kit-large #1 ea 10/22/20 08/12/24 11/28/20 History fluticasone furoate 100 1 inh inhalation DAILY 04/29/24 11/17/24 09/05/24 History mcg-vilanterol 25 mcg/dose inhalation powder (Breo Ellipta) acetaminophen 500 mg tablet 500 mg PO Q12H PRN Pain 09/06/24 11/17/24 Unknown History loperamide 2 mg capsule 4 mg PO QIDACHS PRN Loose Stool 09/10/24 11/17/24 Unknown History bisacodyl 10 mg rectal suppository 10 mg [place] DAILY PRN constipation 11/17/24 11/17/24 Unknown History clonazepam 1 mg tablet 1 mg PO TID PRN Anxiety 11/17/24 11/17/24 Unknown History dexamethasone 4 mg tablet 4 mg PO QAM 11/17/24 11/17/24 Unknown History diltiazem HCl 120 mg 120 mg PO BEDTIME 11/17/24 11/17/24 Unknown History capsule,extended release 24 hr, controlled (DILT-XR) diphenoxylate-atropine 2.5 2 tab PO TID PRN Diarrhea 11/17/24 11/17/24 Unknown History mg-0.025 mg tablet docusate sodium 100 mg capsule 100 mg PO DAILY PRN constipation 11/17/24 11/17/24 Unknown History haloperidol 0.5 mg tablet 0.5 mg PO Q6H PRN nausea/agitation 11/17/24 11/17/24 Unknown History hyoscyamine sulfate 0.125 mg 0.125 mg sublingual Q4H PRN 11/17/24 11/17/24 Unknown History sublingual tablet Secretions lorazepam 0.5 mg tablet 0.5 mg PO Q4H PRN anxiety 11/17/24 11/17/24 Unknown History ondansetron 4 mg disintegrating 4 mg PO Q8H PRN nausea and vomiting 11/17/24 11/17/24 Unknown History tablet oxybutynin chloride 10 mg 10 mg PO DAILY 11/17/24 11/17/24 Unknown History tablet,extended release 24 hr Physical Exam Const: General: alert, awake and Physically active Nutritional Appearance: overweight Orientation/consciousness: patient oriented x3 Resp: Effort & Inspection: normal respiratory effort, able to speak in complete sentences, no respiratory distress and no use of accessory muscles GI: Other: colostomy Neuro: Other: grossly nonfocal General: patient oriented x3 Assessment and Plan (1) Adenocarcinoma of sigmoid colon: Status: Chronic (2) Cancer of lower lobe of left lung: Status: Acute Plan This is 59-year-old female with a history of colon cancer status post colostomy, lung cancer on hospice who presents today for respite. uncontrolled pain in the setting of 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 pt reporting groin pain On fentanyl, oxycodone, oral morphine - morphine ordered q1h prn but unclear how frequently pt receiving, estimated 2-3x daily continue fentanyl patch continue prn oxy and prn morphine and adjust as needed schedule jesse her hospice rec rule out UTI - UA with reflex culture pending afib unspecified Continue metoprolol, diltiazem, Eliquis Chronic respiratory failure/COPD No acute infection Continue 2 L supplemental oxygen 24/ Continue baseline inhalers Mood Continue duloxetine Disposition-patient returning hospice, Plan to work on placement next week Quality Stroke Does the patient have a stroke diagnosis?: No VTE Prior VTE?: No VTE Risk Level:: Medical - moderate - high VTE Device Contraindication: Treatment Not Indicated VTE Drug Contraindication: Treatment Not Indicated
[2024-12-05 15:45] VITALS: BMI 33.1
--- NOTE | 2024-12-05 16:56 | PHA.MEDREC ---
Pharmacy Consult ? Medication Reconciliation Pharmacy has completed the medication reconciliation. Spoke to patient and used med list from A to confirm medication list. Per patient, she just applied a new fentanyl 100 mcg today 12/05/24. Per Mini Singh, divalproex has been discontinued.
[2024-12-05 20:19] VITALS: BP 119/65; PULSE 55; RESP 20; TEMP 36.2; O2SAT 93
[2024-12-05] MEDS: Morphine Sulfate Oral Sol 10 MG/5 ML SOLUTION PO (20:23)
[2024-12-05 21:23] LABS: Appearance Urine Clear; Glucose Urine UA Negative (Negative); PH 6.0 (5.0-9.0); Specific Gravity - Urine 1.020 (1.005-1.025); UMIC TRIGGER UACC YES
--- NOTE | 2024-12-05 22:47 | MHC.PIE ---
p; pt unable to void per previous rn, pt tried x2 with no result. bladder scan shows >400ml i; dr ellis notified. new order straight cath now e; pt educated on straight cath, pt wanted to try voiding once again. pt now able to void in bathroom, urine measured 400 ml. will cont to monitor
[2024-12-06] MEDS: Morphine Sulfate Oral Sol 10 MG/5 ML SOLUTION PO ×6 (05:52→23:20)
[2024-12-06] MEDS: oxyCODONE HCl Immed Release 5 MG TABLET 10 MG PO ×4 (07:33→20:03)
[2024-12-06] MEDS: oxyBUTYnin chloride ER 5 MG TAB.ER.24 10 MG PO (07:33)
[2024-12-06 07:34] VITALS: BP 123/56; PULSE 55; RESP 16; O2SAT 98
[2024-12-06] MEDS: Metoprolol Succinate ER 50 MG TAB.ER.24H PO (07:34)
[2024-12-06] MEDS: dilTIAZem HCL CD 120 MG CAP.ER.DEG PO (07:34)
[2024-12-06 07:38] VITALS: PULSE 52; RESP 18; TEMP 36.7; O2SAT 96
[2024-12-06] MEDS: Fluticasone/Vilanterol 100/25 BLST.W.DEV 1 PUFF INHALE (07:46)
[2024-12-06] MEDS: Tiotropium Bromide 2.5 mcg 1 PUFF/2.5 MCG MIST.INHAL 2 PUFF INHALE (07:46)
[2024-12-06 07:50] VITALS: PULSE 52; RESP 20; O2SAT 96
--- NOTE | 2024-12-06 08:12 | PC.NURSE ---
Pt is awake and in good spirits this morning. Alert and oriented to person, place and time although occasionally forgetful. Pt reports pain of 8/10 in back and groin. RN dillon medicated patient with pain medication prior to assessment. on 2L NC satting well at 98%. Bilateral lungs are dim throughout with fine crackles in the bases. Resp. even and non-labored. 1 assist with a walker, voiding in the bathroom appropriately, voided 600ml urine this am. Ostomy to left quadrant clean and dry, no stool at this time, stoma beefy red, clean and even along all edges. Dressing to left chest, post port removal is CDI. Pt is currently resting comfortably without any concerns. Ringing appropriately. Will continue to monitor while here for hospice respite.
--- NOTE | 2024-12-06 09:16 | MHC.CLN ---
NUTRITION PATIENT ON HOSPICE CARE, ADMITTED FOR RESPITE. DIET=REGULAR. NO NEW NUTRITION INTERVENTIONS. RD AVAILABLE NEEDED.
--- NOTE | 2024-12-06 09:27 | P.PNIM_ITS ---
Subjective Subjective Date of Service: 12/06/24 Interval History: seen and examined this morning follow up for hospice/pain management pain currently controlled Review of Systems Review of Systems: Yes all other systems are reviewed and are negative Constitutional Constitutional: Denies chills and Denies fever(s) Cardiovascular Cardiovascular: Denies chest pain, Denies palpitations and Denies dyspnea Respiratory Respiratory: Denies cough and Denies dyspnea Gastrointestinal Gastrointestinal: Denies nausea and Denies vomiting Endocrine Endocrine: Denies palpitations Physical Exam Vital Signs: Vital Signs: Last Vital Signs Temp 98.0 F 12/06/24 07:38 Pulse 52 12/06/24 07:50 Resp 20 12/06/24 07:50 BP 123/56 L 12/06/24 07:34 Pulse Ox 96 12/06/24 07:38 O2 Del Method Nasal Cannula 12/06/24 07:38 O2 Flow Rate 2 12/06/24 07:38 BMI result Body Mass Index 33.1 Const: General: alert, awake and Physically active Nutritional Appearance: overweight Orientation/consciousness: patient oriented x3 Resp: Effort & Inspection: normal respiratory effort, able to speak in complete sentences, no respiratory distress and no use of accessory muscles GI: Other: colostomy - no output; abdomen soft, non-distended Neuro: Other: grossly nonfocal General: patient oriented x3 Objective Data Active Medications Acetaminophen (Acetaminophen 325 Mg Tablet) 650 mg PO Q6H PRN PRN Reason: Pain, Mild 1-3,fever,headache Apixaban (Apixaban 2.5 Mg Tablet) 2.5 mg PO BID [facility] Last Admin: 12/06/24 07:33 Dose: 2.5 mg Documented By: NEFTALY Bisacodyl (Bisacodyl 10 Mg Supp.Rect) 10 mg [place] DAILY PRN PRN Reason: Constipation Clonazepam (Clonazepam 1 Mg Tablet) 1 mg PO TID [facility] Last Admin: 12/06/24 07:34 Dose: 1 mg Documented By: NEFTALY Dexamethasone (Dexamethasone 4 Mg Tablet) 4 mg PO DAILY [facility] Last Admin: 12/06/24 07:34 Dose: 4 mg Documented By: NEFTALY Diltiazem HCl (Diltiazem Hcl Cd 120 Mg Cap.Er.Deg) 120 mg PO DAILY [facility]; Protocol Last Admin: 12/06/24 07:34 Dose: 120 mg Documented By: NEFTALY Diphenoxylate HCl/Atropine (Diphenoxylate/Atrop 2.5/0.025 Tablet) 2 tab PO TID PRN PRN Reason: Diarrhea Docusate Sodium (Docusate Sodium 100 Mg Capsule) 100 mg PO DAILY PRN PRN Reason: Constipation Duloxetine HCl (Duloxetine Hcl 60 Mg Capsule.) 60 mg PO BEDTIME [facility] Last Admin: 12/05/24 20:23 Dose: 60 mg Documented By: VALERIA Fentanyl (Fentanyl 100 Mcg Patch.Td72) 100 mcg TRANSDERMA Q72H [facility] Fluticasone/Vilanterol (Fluticasone/Vilanterol 100/25 Blst.W.Dev) 1 puff INHALE RDAILY [facility] Last Admin: 12/06/24 07:46 Dose: 1 puff Documented By: DMITRY Haloperidol (Haloperidol 0.5 Mg Tablet) 0.5 mg PO Q6H PRN PRN Reason: nausea/agitation Loperamide HCl (Loperamide Hcl 2 Mg Capsule) 4 mg PO QIDACHS PRN PRN Reason: Loose Stool Lorazepam (Lorazepam 0.5 Mg Tablet) 0.5 mg PO Q4H PRN PRN Reason: restlessness/agitation/nausea Metoprolol Succinate (Metoprolol Succinate Er 50 Mg Tab.Er.24h) 50 mg PO DAILY [facility]; Protocol Last Admin: 12/06/24 07:34 Dose: 50 mg Documented By: NEFTALY Morphine Sulfate (Morphine Sulfate Oral Hanny 10 Mg/5 Ml Solution) 10 mg PO Q1H PRN PRN Reason: PAIN OR SHORTNESS OF BREATH Last Admin: 12/06/24 05:52 Dose: 10 mg Documented By: VALERIA Omeprazole (Omeprazole 20 Mg Capsule.) 20 mg PO BID@0630,1630 [facility] Last Admin: 12/06/24 05:49 Dose: 20 mg Documented By: VALERIA Ondansetron HCl (Ondansetron Odt 4 Mg Tab.Rapdis) 4 mg TRANSLINGU Q8H PRN PRN Reason: Nausea and Vomiting Oxybutynin Chloride (Oxybutynin Chloride Er 5 Mg Tab.Er.24) 10 mg PO DAILY [facility] Last Admin: 12/06/24 07:33 Dose: 10 mg Documented By: NEFTALY Oxycodone HCl (Oxycodone Hcl Immed Release 5 Mg Tablet) 10 mg PO Q4H PRN PRN Reason: Pain, Moderate(Pain Scale 4-6) Last Admin: 12/06/24 07:33 Dose: 10 mg Documented By: NEFTALY Tiotropium [place] (Tiotropium [place] 2.5 Mcg 1 Puff/2.5 Mcg Mist.Inhal) 2 puff [facility]ALE [facility] Last Admin: 12/06/24 07:46 Dose: 2 puff Documented By: DIMTRY Labs Labs: Laboratory Results - last 24 hr 12/05/24 21:10 Urine Color Yellow Urine Appearance Clear Urine pH 6.0 Ur Specific [place] 1.020 Urine Protein 100 (2+) H Urine Glucose (UA) Negative Urine Ketones Trace Urine Blood Trace H Urine Nitrite Negative Ur Leukocyte Esterase Negative Urine RBC 11-20 H Urine WBC 0-5 Ur Squamous Epith Cells 3-5 Urine Bacteria None Seen Hyaline Casts 0-2 Assessment and Plan (1) Colostomy in place: Status: Acute Plan This is 59-year-old female with a history of colon cancer status post colostomy, lung cancer on hospice who presents today for respite. 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 with uncontrolled pain continue fentanyl, oxycodone, oral morphine, adjust as needed schedule klonopin her hospice rec UTI ruled out Bowel regimen to prevent constipation afib unspecified Continue metoprolol, diltiazem, Eliquis Chronic respiratory failure/COPD No acute infection Continue 2 L supplemental oxygen 24/7 Continue baseline inhalers Mood Continue duloxetine Disposition- Plan to work on placement next week Quality Stroke Does the patient have a stroke diagnosis?: No VTE Prior VTE?: No VTE Risk Level:: Medical - moderate - high VTE Device Contraindication: Treatment Not Indicated VTE Drug Contraindication: Treatment Not Indicated
[2024-12-06 15:28] VITALS: BP 170/72; PULSE 57; RESP 16; TEMP 36.3; O2SAT 96
[2024-12-06 17:12] LABS: Glucose, Whole Blood 134 mg/dL (60-115)
[2024-12-07] MEDS: Morphine Sulfate Oral Sol 10 MG/5 ML SOLUTION PO ×5 (02:36→22:15)
[2024-12-07] MEDS: oxyCODONE HCl Immed Release 5 MG TABLET 10 MG PO ×3 (04:06→13:36)
[2024-12-07 07:43] VITALS: BP 186/79; PULSE 55; RESP 17; TEMP 36.4; O2SAT 93
--- NOTE | 2024-12-07 07:53 | PC.NURSE ---
In to assess pt. Pt alert and oriented. Pt sitting in chair. Lungs diminished throughout. On Scheduled inhalers. Postive radial and pedal pulses. skin intact. No IV access. C/O 02/12 pain. Given oral morphine, as well as p.o. ativan. Will reassess.
[2024-12-07] MEDS: Fluticasone/Vilanterol 100/25 BLST.W.DEV 1 PUFF INHALE (08:29)
[2024-12-07] MEDS: Tiotropium Bromide 2.5 mcg 1 PUFF/2.5 MCG MIST.INHAL 2 PUFF INHALE (08:29)
[2024-12-07 08:36] VITALS: PULSE 62; RESP 16; O2SAT 97
[2024-12-07] MEDS: dilTIAZem HCL CD 120 MG CAP.ER.DEG PO (08:42)
[2024-12-07] MEDS: oxyBUTYnin chloride ER 5 MG TAB.ER.24 10 MG PO (08:42)
[2024-12-07] MEDS: Metoprolol Succinate ER 50 MG TAB.ER.24H PO (08:42)
--- NOTE | 2024-12-07 10:00 | HO.PM.IMPN ---
Subjective Subjective Date of Service: 12/07/24 Interval History: follow up for hospice/pain management pain currently controlled Review of Systems Review of Systems: Yes all other systems are reviewed and are negative Constitutional Constitutional: Denies chills and Denies fever(s) Cardiovascular Cardiovascular: Denies chest pain, Denies palpitations and Denies dyspnea Respiratory Respiratory: Denies cough and Denies dyspnea Gastrointestinal Gastrointestinal: Denies nausea and Denies vomiting Endocrine Endocrine: Denies palpitations Physical Exam Vital Signs: Vital Signs: Last Vital Signs Temp 97.5 F 12/07/24 07:43 Pulse 62 12/07/24 08:36 Resp 16 12/07/24 08:36 BP 186/79 H 12/07/24 07:43 Pulse Ox 93 12/07/24 07:43 O2 Del Method Room Air 12/07/24 07:43 O2 Flow Rate 2 12/06/24 07:38 BMI result Body Mass Index 33.1 Appearing in no acute distress lung sounds are clear to auscultation heart regular rate rhythm, clear S1, S2 positive bowel sounds, abdomen is soft, nontender neuro patient is alert x3, no focal deficits Objective Data Active Medications Acetaminophen (Acetaminophen 325 Mg Tablet) 650 mg PO Q6H PRN PRN Reason: Pain, Mild 1-3,fever,headache Apixaban (Apixaban 2.5 Mg Tablet) 2.5 mg PO BID [facility] Last Admin: 12/07/24 08:42 Dose: 2.5 mg Documented By: MORA Bisacodyl (Bisacodyl 10 Mg Supp.Rect) 10 mg [place] DAILY PRN PRN Reason: Constipation Clonazepam (Clonazepam 1 Mg Tablet) 1 mg PO TID [facility] Last Admin: 12/07/24 08:42 Dose: 1 mg Documented By: MORA Dexamethasone (Dexamethasone 4 Mg Tablet) 4 mg PO DAILY [facility] Last Admin: 12/07/24 08:42 Dose: 4 mg Documented By: MORA Dextrose (Dextrose 50 % 25 Gm/50 Ml Syringe) 25 gm IVPUSH Q15M PRN; Protocol PRN Reason: per Hypoglycemia Standing Ord. Diltiazem HCl (Diltiazem Hcl Cd 120 Mg Cap.Er.Deg) 120 mg PO DAILY [facility]; Protocol Last Admin: 12/07/24 08:42 Dose: 120 mg Documented By: HO.GRAZIC Diphenoxylate HCl/Atropine (Diphenoxylate/Atrop 2.5/0.025 Tablet) 2 tab PO TID PRN PRN Reason: Diarrhea Docusate Sodium (Docusate Sodium 100 Mg Capsule) 100 mg PO DAILY [facility] Last Admin: 12/07/24 08:42 Dose: 100 mg Documented By: MORA Duloxetine HCl (Duloxetine Hcl 60 Mg Capsule.) 60 mg PO BEDTIME [facility] Last Admin: 12/06/24 20:02 Dose: 60 mg Documented By: MIKY Fentanyl (Fentanyl 100 Mcg Patch.Td72) 100 mcg TRANSDERMA Q72H [facility] Fluticasone/Vilanterol (Fluticasone/Vilanterol 100/25 Blst.W.Dev) 1 puff INHALE RDAILY [facility] Last Admin: 12/07/24 08:29 Dose: 1 puff Documented By: ELLA Glucose (Glucose Gel 15 Gm Gel..Gram.) 15 gm PO Q15M PRN; Protocol PRN Reason: per Hypoglycemia Standing Ord. Haloperidol (Haloperidol 0.5 Mg Tablet) 0.5 mg PO Q6H PRN PRN Reason: nausea/agitation Loperamide HCl (Loperamide Hcl 2 Mg Capsule) 4 mg PO QIDACHS PRN PRN Reason: Loose Stool Lorazepam (Lorazepam 0.5 Mg Tablet) 0.5 mg PO Q4H PRN PRN Reason: restlessness/agitation/nausea Last Admin: 12/07/24 07:23 Dose: 0.5 mg Documented By: MORA Metoprolol Succinate (Metoprolol Succinate Er 50 Mg Tab.Er.24h) 50 mg PO DAILY [facility]; Protocol Last Admin: 12/07/24 08:42 Dose: 50 mg Documented By: MORA Morphine Sulfate (Morphine Sulfate Oral Hanny 10 Mg/5 Ml Solution) 10 mg PO Q1H PRN PRN Reason: PAIN OR SHORTNESS OF BREATH Last Admin: 12/07/24 07:23 Dose: 10 mg Documented By: MORA Omeprazole (Omeprazole 20 Mg Capsule.) 20 mg PO BID@0630,1630 [facility] Last Admin: 12/07/24 05:46 Dose: 20 mg Documented By: MIKY Ondansetron HCl (Ondansetron Odt 4 Mg Tab.Rapdis) 4 mg TRANSLINGU Q8H PRN PRN Reason: Nausea and Vomiting Oxybutynin Chloride (Oxybutynin Chloride Er 5 Mg Tab.Er.24) 10 mg PO DAILY [facility] Last Admin: 12/07/24 08:42 Dose: 10 mg Documented By: MORA Oxycodone HCl (Oxycodone Hcl Immed Release 5 Mg Tablet) 10 mg PO Q4H PRN PRN Reason: Pain, Moderate(Pain Scale 4-6) Last Admin: 12/07/24 08:46 Dose: 10 mg Documented By: MORA Polyethylene Glycol (Polyethylene Glycol 3350 17 Gm Powd.Pack) 17 gm PO DAILY [facility] Last Admin: 12/07/24 08:45 Dose: Not Given Documented By: MORA Non-Admin Reason: Patient Refused Tiotropium [place] (Tiotropium [place] 2.5 Mcg 1 Puff/2.5 Mcg Mist.Inhal) 2 puff INHALE RDAILY [facility] Last Admin: 12/07/24 08:29 Dose: 2 puff Documented By: ELLA Labs Labs: Laboratory Results - last 24 hr 12/06/24 17:07 POC Glucose 134 H Assessment and Plan (1) Colostomy in place: Status: Acute Plan 59-year-old female with a history of colon cancer status post colostomy, lung cancer on hospice who presents today for respite. 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 with uncontrolled pain continue fentanyl, oxycodone, oral morphine, adjust as needed schedule klonopin her hospice rec UTI ruled out Bowel regimen to prevent constipation afib unspecified Continue metoprolol, diltiazem, Eliquis Chronic respiratory failure/COPD No acute infection Continue 2 L supplemental oxygen 26/12 Continue baseline inhalers Mood Continue duloxetine Disposition- Plan to work on placement next week Quality Stroke Does the patient have a stroke diagnosis?: No VTE Prior VTE?: No VTE Risk Level:: Medical - moderate - high VTE Device Contraindication: Treatment Not Indicated VTE Drug Contraindication: Treatment Not Indicated
--- NOTE | 2024-12-07 10:26 | MHC.CM.PN ---
Addendum entered by Zita Webber 12/09/24 16:22: [facility] WAS ADVOCATING FOR SNF PLACEMENT, HOWEVER PT IS REFUSING. Addendum entered by Zita Webber 12/09/24 14:16: PER [facility], PT WILL BE CHANGED TO GIP ON Monday12/10/24 AND IS STILL REPORTING 8/10 PAIN Original Note: PT ACTIVE WITH [facility], ADMITTED FOR RESPITE SHE LIVES WITH HER AND SAYS A [facility] FARM OR [employer] WITH SOME CLEANING AND SHOWERS SHE HAS A WALKER, CANE AND OXYGEN FOR DME HCP AND MOLST ON FILE PCP: KIA HIGGINS DCP: HOME, RESUME [facility] TO TRANSPORT
[2024-12-07] MEDS: fentaNYL 75 MCG PATCH.TD72 150 MCG TRANSDERMA (16:22)
--- NOTE | 2024-12-07 17:25 | PC.NURSE ---
Pt alert and oriented. Mx complaints of pain throughout the day. New order for Fentanyl patch 150mg Q72 hrs. Two 75mg patches placed to right arm. Old 100mg patch removed from left arm and destroyed.
[2024-12-08] MEDS: Morphine Sulfate Oral Sol 10 MG/5 ML SOLUTION 20 MG PO ×4 (02:09→17:12)
[2024-12-08] MEDS: Morphine Sulfate Oral Sol 10 MG/5 ML SOLUTION PO (07:12)
--- NOTE | 2024-12-08 07:31 | PC.NURSE ---
In to assess pt. Pt alert and oriented. Pt in bed. Lungs diminished throughout. On Scheduled inhalers. Postive radial and pedal pulses. skin intact. No IV access. Pt giiven oral morphine, by table games shift manager at 7am. Will reassess.
--- NOTE | 2024-12-08 08:09 | HO.PM.IMPN ---
Subjective Subjective Date of Service: 12/08/24 Interval History: follow up for hospice/pain management pain currently controlled Review of Systems Review of Systems: Yes all other systems are reviewed and are negative Constitutional Constitutional: Denies chills and Denies fever(s) Cardiovascular Cardiovascular: Denies chest pain, Denies palpitations and Denies dyspnea Respiratory Respiratory: Denies cough and Denies dyspnea Gastrointestinal Gastrointestinal: Denies nausea and Denies vomiting Endocrine Endocrine: Denies palpitations Physical Exam Vital Signs: Vital Signs: Last Vital Signs Temp 97.5 F 12/07/24 07:43 Pulse 62 12/07/24 08:36 Resp 16 12/07/24 08:36 BP 186/79 H 12/07/24 07:43 Pulse Ox 93 12/07/24 07:43 O2 Del Method Room Air 12/07/24 07:43 O2 Flow Rate 2 12/06/24 07:38 BMI result Body Mass Index 33.1 Appearing in no acute distress lung sounds are clear to auscultation heart regular rate rhythm, clear S1, S2 positive bowel sounds, abdomen is soft, nontender neuro patient is alert x3, no focal deficits Objective Data Active Medications Acetaminophen (Acetaminophen 325 Mg Tablet) 650 mg PO Q6H PRN PRN Reason: Pain, Mild 1-3,fever,headache Apixaban (Apixaban 2.5 Mg Tablet) 2.5 mg PO BID [facility] Last Admin: 12/07/24 22:14 Dose: 2.5 mg Documented By: MIKY Bisacodyl (Bisacodyl 10 Mg Supp.Rect) 10 mg [place] DAILY PRN PRN Reason: Constipation Clonazepam (Clonazepam 1 Mg Tablet) 1 mg PO TID [facility] Last Admin: 12/07/24 22:14 Dose: 1 mg Documented By: MIKY Clonazepam (Clonazepam 1 Mg Tablet) 1 mg PO DAILY PRN PRN Reason: Anxiety Dexamethasone (Dexamethasone 4 Mg Tablet) 4 mg PO DAILY [facility] Last Admin: 12/07/24 08:42 Dose: 4 mg Documented By: MORA Dextrose (Dextrose 50 % 25 Gm/50 Ml Syringe) 25 gm IVPUSH Q15M PRN; Protocol PRN Reason: per Hypoglycemia Standing Ord. Diltiazem HCl (Diltiazem Hcl Cd 120 Mg Cap.Er.Deg) 120 mg PO DAILY [facility]; Protocol Last Admin: 12/07/24 08:42 Dose: 120 mg Documented By: MORA Diphenoxylate HCl/Atropine (Diphenoxylate/Atrop 2.5/0.025 Tablet) 2 tab PO TID PRN PRN Reason: Diarrhea Docusate Sodium (Docusate Sodium 100 Mg Capsule) 100 mg PO DAILY [facility] Last Admin: 12/07/24 08:42 Dose: 100 mg Documented By: MORA Duloxetine HCl (Duloxetine Hcl 30 Mg Capsule.) 90 mg PO BEDTIME [facility] Last Admin: 12/07/24 22:13 Dose: 90 mg Documented By: MIKY Fentanyl (Fentanyl 75 Mcg Patch.Td72) 150 mcg TRANSDERMA Q72H [facility] Last Admin: 12/07/24 16:22 Dose: 150 mcg Documented By: MORA Fluticasone/Vilanterol (Fluticasone/Vilanterol 100/25 Blst.W.Dev) 1 puff INHALE RDAILY [facility] Last Admin: 12/07/24 08:29 Dose: 1 puff Documented By: ELLA Glucose (Glucose Gel 15 Gm Gel..Gram.) 15 gm PO Q15M PRN; Protocol PRN Reason: per Hypoglycemia Standing Ord. Haloperidol (Haloperidol 0.5 Mg Tablet) 0.5 mg PO Q6H PRN PRN Reason: nausea/agitation Loperamide HCl (Loperamide Hcl 2 Mg Capsule) 4 mg PO QIDACHS PRN PRN Reason: Loose Stool Metoprolol Succinate (Metoprolol Succinate Er 50 Mg Tab.Er.24h) 50 mg PO DAILY [facility]; Protocol Last Admin: 12/07/24 08:42 Dose: 50 mg Documented By: MORA Morphine Sulfate (Morphine Sulfate Oral Hanny 10 Mg/5 Ml Solution) 10 mg PO Q1H PRN PRN Reason: Pain, Moderate(Pain Scale 4-6) Last Admin: 12/08/24 07:12 Dose: 10 mg Documented By: MIKY Morphine Sulfate (Morphine Sulfate Oral Hanny 10 Mg/5 Ml Solution) 20 mg PO Q1H PRN PRN Reason: Pain, Severe (Pain Scale 7-10) Last Admin: 12/08/24 02:09 Dose: 20 mg Documented By: MIKY Omeprazole (Omeprazole 20 Mg Capsule.) 20 mg PO BID@0630,1630 [facility] Last Admin: 12/08/24 06:41 Dose: 20 mg Documented By: MIKY Ondansetron HCl (Ondansetron Odt 4 Mg Tab.Rapdis) 4 mg TRANSLINGU Q8H PRN PRN Reason: Nausea and Vomiting Oxybutynin Chloride (Oxybutynin Chloride Er 5 Mg Tab.Er.24) 10 mg PO DAILY [facility] Last Admin: 12/07/24 08:42 Dose: 10 mg Documented By: MORA Polyethylene Glycol (Polyethylene Glycol 3350 17 Gm Powd.Pack) 17 gm PO DAILY [facility] Last Admin: 12/07/24 08:45 Dose: Not Given Documented By: MORA Non-Admin Reason: Patient Refused Senna (Sennosides 8.6 Mg Tablet) 17.2 mg PO BID [facility] Last Admin: 12/07/24 22:14 Dose: 17.2 mg Documented By: MIKY Tiotropium [place] (Tiotropium [place] 2.5 Mcg 1 Puff/2.5 Mcg Mist.Inhal) 2 puff INHALE RDAILY [facility] Last Admin: 12/07/24 08:29 Dose: 2 puff Documented By: ELLA Assessment and Plan (1) Colostomy in place: Status: Acute Plan 59-year-old female with a history of colon cancer status post colostomy, lung cancer on hospice who presents today for respite. Recurrent sigmoid colon adenocarcinoma s/p sigmoid colectomy with uncontrolled pain Recenbt changes it medications as per hospice>continue fentanyl, oral morphine, adjust as needed schedule klonopin her hospice rec UTI ruled out Bowel regimen to prevent constipation Afib unspecified Continue metoprolol, diltiazem, Eliquis Chronic respiratory failure/COPD No acute infection Continue 2 L supplemental oxygen 24/7 Continue baseline inhalers Mood Continue duloxetine Disposition- Plan to work on placement as per hospice Quality Stroke Does the patient have a stroke diagnosis?: No VTE Prior VTE?: No VTE Risk Level:: Medical - moderate - high VTE Device Contraindication: Treatment Not Indicated VTE Drug Contraindication: Treatment Not Indicated
[2024-12-08 08:13] VITALS: BP 198/88; PULSE 52; RESP 18; TEMP 36.4; O2SAT 95
[2024-12-08] MEDS: Metoprolol Succinate ER 50 MG TAB.ER.24H PO (08:13)
[2024-12-08] MEDS: oxyBUTYnin chloride ER 5 MG TAB.ER.24 10 MG PO (08:13)
[2024-12-08] MEDS: dilTIAZem HCL CD 120 MG CAP.ER.DEG PO (08:14)
[2024-12-08] MEDS: Fluticasone/Vilanterol 100/25 BLST.W.DEV 1 PUFF INHALE (08:15)
[2024-12-08] MEDS: Tiotropium Bromide 2.5 mcg 1 PUFF/2.5 MCG MIST.INHAL 2 PUFF INHALE (08:15)
[2024-12-08 08:19] VITALS: PULSE 61; RESP 20; O2SAT 90
[2024-12-08 16:08] VITALS: BP 137/86; PULSE 57; RESP 17; O2SAT 96
[2024-12-08 19:18] VITALS: BP 136/98; PULSE 57; TEMP 36.1; O2SAT 95
[2024-12-08] MEDS: oxyCODONE HCl Immed Release 5 MG TABLET 10 MG PO (20:34)
[2024-12-09] VITALS (8 sets, daily range): BP systolic 112–216; BP diastolic 57–89; PULSE 51–66; RESP 16–18; TEMP 36–36.6; O2SAT 92–99
[2024-12-09] MEDS: oxyCODONE HCl Immed Release 5 MG TABLET 10 MG PO ×4 (00:49→21:23)
--- NOTE | 2024-12-09 03:19 | PC.NURSE ---
Patient had BP 216/85 pulse 51 at 0045, Patient was just back to bed and c/o pain. Recheck after patient settled and pt took Oxycodone, BP continued to be elevated 213/89, patient then c/o H/A and sweating. Dr. Blue notified via [employer], Hydralazine ordered. BP rechecked before administration. 124/69 right arm, 137/73 left arm. Hydralazine held. notified of BP changes and that patient stated that she fluctuates a lot. Notified Hydralazine held.
[2024-12-09] MEDS: Tiotropium Bromide 2.5 mcg 1 PUFF/2.5 MCG MIST.INHAL 2 PUFF INHALE (08:10)
[2024-12-09] MEDS: Fluticasone/Vilanterol 100/25 BLST.W.DEV 1 PUFF INHALE (08:10)
[2024-12-09] MEDS: Metoprolol Succinate ER 50 MG TAB.ER.24H PO (08:30)
[2024-12-09] MEDS: dilTIAZem HCL CD 120 MG CAP.ER.DEG PO (08:30)
[2024-12-09] MEDS: oxyBUTYnin chloride ER 5 MG TAB.ER.24 10 MG PO (08:31)
[2024-12-09] MEDS: Morphine Sulfate Oral Sol 10 MG/5 ML SOLUTION 20 MG PO ×2 (08:35→15:27)
--- NOTE | 2024-12-09 08:43 | HO.PM.IMPN ---
Subjective Subjective Date of Service: 12/09/24 Interval History: follow up for hospice/pain management pain currently controlled Review of Systems Review of Systems: Yes all other systems are reviewed and are negative Constitutional Constitutional: Denies chills and Denies fever(s) Cardiovascular Cardiovascular: Denies chest pain, Denies palpitations and Denies dyspnea Respiratory Respiratory: Denies cough and Denies dyspnea Gastrointestinal Gastrointestinal: Denies nausea and Denies vomiting Endocrine Endocrine: Denies palpitations Physical Exam Vital Signs: Vital Signs: Last Vital Signs Temp 96.8 F 12/09/24 07:49 Pulse 66 12/09/24 08:14 Resp 16 12/09/24 08:14 BP 118/57 L 12/09/24 07:49 Pulse Ox 92 12/09/24 07:49 O2 Del Method Room Air 12/09/24 07:49 O2 Flow Rate 2 12/06/24 07:38 BMI result Body Mass Index 33.1 Appearing in no acute distress lung sounds are clear to auscultation heart regular rate rhythm, clear S1, S2 positive bowel sounds, abdomen is soft, nontender neuro patient is alert x3, no focal deficits Objective Data Active Medications Acetaminophen (Acetaminophen 325 Mg Tablet) 650 mg PO Q6H PRN PRN Reason: Pain, Mild 1-3,fever,headache Apixaban (Apixaban 2.5 Mg Tablet) 2.5 mg PO BID [facility] Last Admin: 12/09/24 08:30 Dose: 2.5 mg Documented By: HAYDEN Bisacodyl (Bisacodyl 10 Mg Supp.Rect) 10 mg SD DAILY PRN PRN Reason: Constipation Clonazepam (Clonazepam 1 Mg Tablet) 1 mg PO TID [facility] Last Admin: 12/09/24 08:30 Dose: 1 mg Documented By: HAYDEN Clonazepam (Clonazepam 1 Mg Tablet) 1 mg PO DAILY PRN PRN Reason: Anxiety Dexamethasone (Dexamethasone 4 Mg Tablet) 4 mg PO DAILY [facility] Last Admin: 12/09/24 08:30 Dose: 4 mg Documented By: HAYDEN Dextrose (Dextrose 50 % 25 Gm/50 Ml Syringe) 25 gm IVPUSH Q15M PRN; Protocol PRN Reason: per Hypoglycemia Standing Ord. Diltiazem HCl (Diltiazem Hcl Cd 120 Mg Cap.Er.Deg) 120 mg PO DAILY [facility]; Protocol Last Admin: 12/09/24 08:30 Dose: 120 mg Documented By: HAYDEN Diphenoxylate HCl/Atropine (Diphenoxylate/Atrop 2.5/0.025 Tablet) 2 tab PO TID PRN PRN Reason: Diarrhea Docusate Sodium (Docusate Sodium 100 Mg Capsule) 100 mg PO DAILY [facility] Last Admin: 12/09/24 08:31 Dose: 100 mg Documented By: HAYDEN Duloxetine HCl (Duloxetine Hcl 30 Mg Capsule.) 90 mg PO BEDTIME [facility] Last Admin: 12/08/24 20:33 Dose: 90 mg Documented By: DONNIE Fentanyl (Fentanyl 75 Mcg Patch.Td72) 150 mcg TRANSDERMA Q72H [facility] Last Admin: 12/07/24 16:22 Dose: 150 mcg Documented By: MORA Fluticasone/Vilanterol (Fluticasone/Vilanterol 100/25 Blst.W.Dev) 1 puff INHALE RDAILY [facility] Last Admin: 12/09/24 08:10 Dose: 1 puff Documented By: PAT Glucose (Glucose Gel 15 Gm Gel..Gram.) 15 gm PO Q15M PRN; Protocol PRN Reason: per Hypoglycemia Standing Ord. Haloperidol (Haloperidol 0.5 Mg Tablet) 0.5 mg PO Q6H PRN PRN Reason: nausea/agitation Loperamide HCl (Loperamide Hcl 2 Mg Capsule) 4 mg PO QIDACHS PRN PRN Reason: Loose Stool Metoprolol Succinate (Metoprolol Succinate Er 50 Mg Tab.Er.24h) 50 mg PO DAILY [facility]; Protocol Last Admin: 12/09/24 08:30 Dose: 50 mg Documented By: HAYDEN Morphine Sulfate (Morphine Sulfate Oral Hanny 10 Mg/5 Ml Solution) 10 mg PO Q1H PRN PRN Reason: Pain, Moderate(Pain Scale 4-6) Last Admin: 12/08/24 07:12 Dose: 10 mg Documented By: MIKY Morphine Sulfate (Morphine Sulfate Oral Hanny 10 Mg/5 Ml Solution) 20 mg PO Q1H PRN PRN Reason: Pain, Severe (Pain Scale 7-10) Last Admin: 12/09/24 08:35 Dose: 20 mg Documented By: HAYDEN Omeprazole (Omeprazole 20 Mg Capsule.) 20 mg PO BID@0630,4910 [facility] Last Admin: 12/09/24 06:10 Dose: 20 mg Documented By: VINOD Ondansetron HCl (Ondansetron Odt 4 Mg Tab.Rapdis) 4 mg TRANSLINGU Q8H PRN PRN Reason: Nausea and Vomiting Last Admin: 12/09/24 00:48 Dose: 4 mg Documented By: VINOD Oxybutynin Chloride (Oxybutynin Chloride Er 5 Mg Tab.Er.24) 10 mg PO DAILY [facility] Last Admin: 12/09/24 08:31 Dose: 10 mg Documented By: HAYDEN Oxycodone HCl (Oxycodone Hcl Immed Release 5 Mg Tablet) 10 mg PO Q4H PRN PRN Reason: Pain, Severe (Pain Scale 7-10) Last Admin: 12/09/24 06:13 Dose: 10 mg Documented By: VINOD Polyethylene Glycol (Polyethylene Glycol 3350 17 Gm Powd.Pack) 17 gm PO DAILY [facility] Last Admin: 12/09/24 08:32 Dose: Not Given Documented By: HAYDEN Non-Admin Reason: Patient Refused Senna (Sennosides 8.6 Mg Tablet) 17.2 mg PO BID [facility] Last Admin: 12/09/24 08:31 Dose: 17.2 mg Documented By: HAYDEN Tiotropium Taylor (Tiotropium Taylor 2.5 Mcg 1 Puff/2.5 Mcg Mist.Inhal) 2 puff INHALE RDAILY [facility] Last Admin: 12/09/24 08:10 Dose: 2 puff Documented By: PAT Assessment and Plan (1) Colostomy in place: Status: Acute Plan 59-year-old female with a history of colon cancer status post colostomy, lung cancer on hospice who presents today for respite. Recurrent sigmoid colon adenocarcinoma s/p sigmoid colectomy with uncontrolled pain Recent changes in medications as per hospice>continue fentanyl, oral morphine, adjust as needed schedule klonopin her hospice rec UTI ruled out Bowel regimen to prevent constipation Afib unspecified Continue metoprolol, diltiazem, Eliquis Chronic respiratory failure/COPD No acute infection Continue 2 L supplemental oxygen 24/7 as needed Continue baseline inhalers Mood Continue duloxetine Disposition> will discuss with hospice plan Quality Stroke Does the patient have a stroke diagnosis?: No VTE Prior VTE?: No VTE Risk Level:: Medical - moderate - high VTE Device Contraindication: Treatment Not Indicated VTE Drug Contraindication: Treatment Not Indicated
--- NOTE | 2024-12-09 16:22 | MHC.CM.PN ---
PER [facility] SW, PTS PAIN IS NOT CONTROLLED AND THE PLAN WILL BE TO CHANGE HER TO GIP ON 12/10/24
[2024-12-10] MEDS: oxyCODONE HCl Immed Release 5 MG TABLET 10 MG PO ×2 (01:52→08:47)
[2024-12-10 07:39] VITALS: PULSE 57; RESP 16; TEMP 36; O2SAT 93
[2024-12-10] MEDS: Fluticasone/Vilanterol 100/25 BLST.W.DEV 1 PUFF INHALE (07:56)
[2024-12-10] MEDS: Tiotropium Bromide 2.5 mcg 1 PUFF/2.5 MCG MIST.INHAL 2 PUFF INHALE (07:56)
[2024-12-10 07:58] VITALS: PULSE 57; RESP 16; O2SAT 92
[2024-12-10] MEDS: oxyBUTYnin chloride ER 5 MG TAB.ER.24 10 MG PO (08:43)
[2024-12-10] MEDS: dilTIAZem HCL CD 120 MG CAP.ER.DEG PO (08:44)
[2024-12-10] MEDS: Metoprolol Succinate ER 50 MG TAB.ER.24H PO (08:44)
--- NOTE | 2024-12-10 10:59 | PM.DS ---
DS: Providers Provider Date of Service: 12/10/24 Date of admission: 12/05/24 15:29 Date of discharge: 12/10/24 Primary care physician: Chelsea Armstrong MD DS: Diagnosis Discharge Diagnosis (1) Colostomy in place: Status: Acute DS: Summary Hospital Course Hospital Course: History and physical as per admitting provider. 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 Per VNA patient has had increased confusion, adding pills to the wrong slots in pill boxes. With medications in the pill box mixed up with multiple of the same meds in different locations. Patient reporting uncontrolled pain, unclear how much p.r.n. medication patient is using. patient reporting b/l groin pain. denies sob, chest pain. Recurrent sigmoid colon adenocarcinoma s/p sigmoid colectomy with uncontrolled pain. Patient admitted to [facility] for 5 days of respite. In discussing with the hospice nurse, there was concern whether the patient was not taking her medications as prescribed. Hospice nurse, case management and I had conversation with the patient and she reported that she and her have been handling the medications as prescribed. Plan will be to continue patient on those medications with these changes, fentanyl increased to 150 mcg, last placed 12/10/2024, oxycodone 4 mg every 6 hours, oral morphine 10 mg every 4 hours, duloxetine increased to 90 mg at bedtime and Klonopin TID prn. The recommendation would be to prescribed 7 days of medications at a time, use locked box with good teaching to patient and her spouse. Afib unspecified. Continue metoprolol, diltiazem, Eliquis Chronic respiratory failure/COPD. No acute infection. Continue 2 L supplemental oxygen 24/7 as needed. Continue baseline inhalers Mood . Continue duloxetine Time Attestation Discharge Coordination Time (in mins): 60 Quality: Safe Use of Opioids Does Pt have an Active Cancer Diagnosis on the Problem List?: No Quality: Stroke Does the patient have a stroke diagnosis?: No Physical Exam Vital Signs: Vital Signs: Last Vital Signs Temp 96.8 F 12/10/24 07:39 Pulse 57 12/10/24 07:58 Resp 16 12/10/24 07:58 BP 112/67 12/09/24 21:16 Pulse Ox 93 12/10/24 07:39 O2 Del Method Room Air 12/10/24 07:39 O2 Flow Rate 2 12/06/24 07:38 BMI result Body Mass Index 33.1 Appearing in no acute distress head is normocephalic atraumatic eyes pupils are PERRLA sclera is anicteric mouth throat mucous membranes are intact and moist neck is supple no lymphadenopathy, no JVD noted lung sounds are clear to auscultation heart regular rate rhythm, clear S1, S2 positive bowel sounds, abdomen is soft, nontender neuro patient is alert x3, no focal deficits DS: Data Data Completed and Pending Completed studies during hospitalization [Text1]: Procedures Assistance with Respiratory Ventilation, Less than 24 Consecutive Hours, Continuous Positive Airway Pressure (11/18/20) Excision of Left Lower Lung Lobe, Percutaneous Approach, Diagnostic (07/03/20) Discharge Plan Discharge Anticipated Discharge Date/Time: 12/10/24 10:55 Patient Disposition: Home Health Service Discharge Diagnosis: Respite for pain management with history of recurrent sigmoid colon adenocarcinoma Referrals: Chelsea Miles MD [Primary Care Provider, Internal Medicine] - 1 Week Discharge Medications: New duloxetine 30 mg Capsule,Delayed Release(Dr/Ec) 90 mg PO BEDTIME Qty: 90 0RF fentanyl 75 mcg/hr patch 72 hour 2 patch transdermal Q72H Qty: 5 0RF Rx Instructions: Dose 150 mcg. Last placed at [facility] on 12/10/2024 oxycodone 5 mg tablet 10 mg PO Q6H PRN (Reason: pain) Qty: 42 0RF Rx Instructions: Partial Fill upon patient request. Continued (DME) Ultra-Light Rollator Misc See Rx Instructions .Route Qty: 1 0RF Rx Instructions: As directed (DME) Tub ledge vertical grab bar/ not suction bar. See Rx Instructions .Route .MEDSUPPLY Qty: 1 0RF Rx Instructions: As directed (DME) heavy duty adjustable hand rail See Rx Instructions .Route .MEDSUPPLY Qty: 1 0RF Rx Instructions: As directed omeprazole 20 mg capsule,delayed release(DR/EC) 20 mg PO BID@0630,1630 90 Days Qty: 180 2RF Eliquis 2.5 mg tablet 2.5 mg PO BID 90 Days Qty: 180 1RF Incruse Ellipta 62.5 mcg/actuation blister with device 1 inh inhalation DAILY Qty: 30 11RF metoprolol succinate 50 mg tablet extended release 24 hr 50 mg PO QAM Qty: 90 1RF acetaminophen 500 mg Tablet 500 mg PO Q12H PRN (Reason: Pain) haloperidol 0.5 mg tablet 0.5 mg PO Q6H PRN (Reason: nausea/agitation) oxybutynin chloride 10 mg tablet extended release 24hr 10 mg PO DAILY diphenoxylate-atropine 2.5-0.025 mg tablet 2 tab PO TID PRN (Reason: Diarrhea) lorazepam 0.5 mg tablet 0.5 mg PO Q4H PRN (Reason: anxiety) bisacodyl 10 mg suppository 10 mg VA DAILY PRN (Reason: constipation) dexamethasone 4 mg tablet 4 mg PO QAM hyoscyamine sulfate 0.125 mg tablet, sublingual 0.125 mg sublingual Q4H PRN (Reason: Secretions) diltiazem HCl [DILT-XR] 120 mg capsule,ext.rel 24h degradable 120 mg PO DAILY docusate sodium 100 mg capsule 100 mg PO DAILY PRN (Reason: constipation) ondansetron 4 mg tablet,disintegrating 8 - 16 mg PO Q6H PRN (Reason: nausea and vomiting) oxycodone 10 mg tablet 10 mg PO Q4H PRN (Reason: pain) Qty: 30 0RF Rx Instructions: Partial Fill upon patient request. acetaminophen 650 mg suppository 650 mg VA Q4H PRN (Reason: fever) clonazepam 1 mg tablet 1 mg PO TID PRN (Reason: Anxiety) Qty: 21 0RF fluticasone furoate-vilanterol [Breo Ellipta] 100-25 mcg/dose blister with device 1 inh inhalation DAILY loperamide 2 mg capsule 4 mg PO QIDACHS PRN (Reason: Loose Stool) (DME) blood pressure test kit-large Kit See Rx Instructions .ROUTE DIRECTED Qty: 1 Rx Instructions: As directed (DME) blood pressure monitor Kit See Rx Instructions .ROUTE .MEDSUPPLY Qty: 1 Rx Instructions: As directed Changed morphine concentrate 100 mg/5 mL (20 mg/mL) solution 10 mg PO Q4H PRN (Reason: PAIN OR SHORTNESS OF BREATH) Qty: 30 0RF Rx Instructions: hospice Discontinued duloxetine 60 mg capsule,delayed release(DR/EC) 60 mg PO BEDTIME Qty: 30 11RF fentanyl 100 mcg/hr patch 72 hour 1 patch topical Q3D Discharge Orders: Discharge Order (Routine); Ordered 12/10/24 Ordered By: Kinza Abbott Diet: Advance to usual diet Activity on Discharge: As tolerated Stand Alone Forms: Patient Portal Discharge page Print Language: French Care Plan Goals: Home with hospice services Fentanyl patch 150 mcg placed 12/10/2024 Your dose of duloxetine was increased to 90 mg at bedtime Your morphine dose is 10 mg every 4 hours Health Concerns: Respite for pain management with history of recurrent sigmoid colon adenocarcinoma Plan of Treatment: Follow-up with primary care provider as needed Take all medications as prescribed Assessment: See discharge summary
[2024-12-10] MEDS: Morphine Sulfate Oral Sol 10 MG/5 ML SOLUTION 20 MG PO (11:19)
[2024-12-10] MEDS: fentaNYL 75 MCG PATCH.TD72 150 MCG TRANSDERMA (14:58)
--- NOTE | 2024-12-10 15:10 | MHC.CM.PN ---
Patient is discharged today to home with resumption of [facility] hospice. Her spouse will provide transportation home.
--- NOTE | 2024-12-14 10:54 | PC.NURSE ---
Patient requested Morphine 10mg for a pain scale of 7-10 despite orders indicated for pain scale of 4-6. Morphine 10mg was given for 8-10 pain at 10:33, 14:39, 17:22, 18:27
== END 2024-12-10 15:24 | disposition home health service (06) | DRG 948 ==
PROVIDERS: Physician Assistant Medical; Admitting Provider Student in an Organized Health Care Education/Training Program; PCP Internal Medicine; Visit Provider Nurse Practitioner Acute Care
DX: G89.3 Neoplasm related pain (acute) (chronic) (principal); C18.7 Malignant neoplasm of sigmoid colon; C78.02 Secondary malignant neoplasm of left lung; J96.11 Chronic respiratory failure with hypoxia; I25.10 Atherosclerotic heart disease of native coronary artery without angina pectoris; J44.9 Chronic obstructive pulmonary disease, unspecified; I10 Essential (primary) hypertension; F39 Unspecified mood [affective] disorder; I48.0 Paroxysmal atrial fibrillation; Z93.3 Colostomy status; E78.5 Hyperlipidemia, unspecified; Z79.01 Long term (current) use of anticoagulants; Z79.51 Long term (current) use of inhaled steroids; Z79.899 Other long term (current) drug therapy
CPT/HCPCS: 81001; 82947; J8540

== ENCOUNTER → 2024-12-05 15:29 | Outpatient (BNV) | payer OTHER, SELFPAY | PROVIDERS: Admitting Provider Student in an Organized Health Care Education/Training Program; PCP Internal Medicine; Visit Provider Physician Assistant Medical | DX: C18.7 Malignant neoplasm of sigmoid colon (principal); C34.32 Malignant neoplasm of lower lobe, left bronchus or lung; Z93.3 Colostomy status | CPT/HCPCS: 99223; 99232; 99239 ==

== ENCOUNTER 2025-01-18 12:33 | Inpatient (IN) | payer OTHER, MEDICARE, MEDICAID, SELFPAY ==
[2025-01-18 12:48] VITALS: BP 155/70; BP 202/92; PULSE 69; PULSE 82; RESP 16; TEMP 36.8; O2SAT 95; O2SAT 96; BMI 32.0
--- NOTE | 2025-01-18 12:50 | ED.WEAKNESS ---
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 Per VNA patient has had increased confusion, was found slumped over in a wheelchair and she is living with the who is not able to lift her. She is here for respite admission. And then placement. Recently had left-sided Brito catheter that was not fact that and was pulled and finished a course of antibiotics. Related Data Home Medications ?Medication ?Instructions ?Recorded ?Confirmed blood pressure monitor #1 ea 10/22/20 08/12/24 blood pressure test kit-large #1 ea 10/22/20 08/12/24 fluticasone furoate 100 1 inh inhalation DAILY 04/29/24 12/05/24 mcg-vilanterol 25 mcg/dose inhalation powder (Breo Ellipta) acetaminophen 500 mg tablet 500 mg PO Q12H PRN Pain 09/06/24 12/05/24 loperamide 2 mg capsule 4 mg PO QIDACHS PRN Loose Stool 09/10/24 12/05/24 bisacodyl 10 mg rectal suppository 10 mg GA DAILY PRN constipation 11/17/24 12/05/24 dexamethasone 4 mg tablet 4 mg PO QAM 11/17/24 12/05/24 diltiazem HCl 120 mg 120 mg PO DAILY 11/17/24 12/05/24 capsule,extended release 24 hr, controlled (DILT-XR) diphenoxylate-atropine 2.5 2 tab PO TID PRN Diarrhea 11/17/24 12/05/24 mg-0.025 mg tablet docusate sodium 100 mg capsule 100 mg PO DAILY PRN constipation 11/17/24 12/05/24 haloperidol 0.5 mg tablet 0.5 mg PO Q6H PRN nausea/agitation 11/17/24 12/05/24 hyoscyamine sulfate 0.125 mg 0.125 mg sublingual Q4H PRN 11/17/24 12/05/24 sublingual tablet Secretions lorazepam 0.5 mg tablet 0.5 mg PO Q4H PRN anxiety 11/17/24 12/05/24 ondansetron 4 mg disintegrating 8 - 16 mg PO Q6H PRN nausea and 11/17/24 12/05/24 tablet vomiting oxybutynin chloride 10 mg 10 mg PO DAILY 11/17/24 12/05/24 tablet,extended release 24 hr acetaminophen 650 mg rectal 650 mg GA Q4H PRN fever 12/05/24 12/05/24 suppository Previous Rx's ?Medication ?Instructions ?Recorded walker (Ultra-Light Rollator misc) #1 ea 09/29/23 Tub ledge vertical grab bar/ not #1 ea 03/06/24 suction bar. heavy duty adjustable hand rail #1 ea 04/22/24 omeprazole 20 mg capsule,delayed 20 mg PO BID@0630,1630 90 days 07/14/24 release #180 caps apixaban 2.5 mg tablet (Eliquis) 2.5 mg PO BID 90 days #180 tabs 09/26/24 umeclidinium 62.5 mcg/actuation 1 inh inhalation DAILY #30 ea 10/07/24 blister powder for inhalation (Incruse Ellipta) metoprolol succinate 50 mg 50 mg PO QAM #90 tabs 10/08/24 tablet,extended release 24 hr oxycodone 10 mg tablet 10 mg PO Q4H PRN pain #30 tabs 11/20/24 clonazepam 1 mg tablet 1 mg PO TID PRN Anxiety #21 tabs 12/10/24 duloxetine 30 mg capsule,delayed 90 mg (3 x 30 mg) PO BEDTIME #90 12/10/24 release caps fentanyl 75 mcg/hr transdermal 2 patch transdermal Q72H #5 ea 12/10/24 patch oxycodone 5 mg tablet 10 mg (2 x 5 mg) PO Q6H PRN pain 12/10/24 #42 tabs morphine concentrate 100 mg/5 mL 10 mg (0.5 mL) PO Q4H PRN 12/13/24 (20 mg/mL) oral solution pain/comfort 30 days #120 mL Allergies Allergy/AdvReac Type Severity Reaction Status Date / Time Penicillins Allergy Mild Rash Verified 01/18/25 12:51 venlafaxine (From Effexor) Allergy Mild Rash Verified 01/18/25 12:51 cyclobenzaprine Allergy Unknown Unknown Verified 01/18/25 12:51 (Cyclobenzaprine) topiramate (From Topamax) Allergy Unknown Unknown Verified 01/18/25 12:51 levofloxacin (From Levaquin) AdvReac Severe Rash Verified 01/18/25 12:51 Sulfa (Sulfonamide AdvReac Severe Diarrhea Verified 01/18/25 12:51 Antibiotics) fentanyl (FENTANYL) AdvReac Intermediate Hallucinati Verified 01/18/25 12:51 ons tramadol AdvReac Intermediate Hallucinati Verified 01/18/25 12:51 ons Review of Systems Constitutional: Constitutional: Reports as per HPI [facility] Past Medical History Medical History Metastatic cancer Acute on chronic diastolic CHF (congestive heart failure) CHF exacerbation Respiratory failure with hypoxia and hypercapnia Chronic confusion Depression Smoker Chronic back pain Colostomy in place (~2020) Personal history of nicotine dependence Polysubstance (including opioids) dependence, binge pattern Atrial fibrillation with rapid ventricular response Congestive heart failure Restrictive lung disease COPD (chronic obstructive pulmonary disease) No natural teeth COVID-19 vaccine series completed History of COVID-19 (~04/2020) Oxygen dependent Pericardial effusion Other and unspecified hyperlipidemia Essential hypertension Peripheral vascular disease Preoperative cardiovascular examination Bilateral pneumonia Adenocarcinoma of sigmoid colon (~2020) Hypernatremia GI bleed UTI (urinary tract infection) Pleural effusion, left Colon cancer (~2020) IVY (obstructive sleep apnea) Cancer of lower lobe of left lung (~2020) GERD (gastroesophageal reflux disease) Acute and chronic respiratory failure Lung cancer Obesity Hypoventilation associated with obesity Obesity hypoventilation syndrome Respiratory failure with hypoxia and hypercapnia Rotator cuff strain Hypoxia Pneumonia Restless legs syndrome (RLS) Sleep disorder Bipolar disorder (~2009) Back pain with history of spinal surgery Renal failure Fibromyalgia Depression High cholesterol PTSD (post-traumatic stress disorder) CAD (coronary artery disease) HTN (hypertension) Surgical History History of partial colectomy (~12/2020) History of cardiac cath (~2010) History of hysterectomy (~1990) History of cholecystectomy History of appendectomy (~1982) History of colonoscopy (~08/2020) History of lobectomy of lung (~08/2020) History of esophagogastroduodenoscopy (EGD) History of bunionectomy (~1977) History of back surgery Family History Family History Maternal Aunt Breast cancer Stroke COPD (chronic obstructive pulmonary disease) Maternal Aunt Breast cancer COPD (chronic obstructive pulmonary disease) Mother Uterine cancer COPD (chronic obstructive pulmonary disease) HTN (hypertension) Heart disease Mental health disorder Maternal Uncle Stroke Paternal Grandmother Heart attack Parkinsons disease Sister Diabetes IBS (irritable bowel syndrome) Son HTN (hypertension) Substance use disorder Daughter HTN (hypertension) Father HTN (hypertension) Parkinsons disease Brother Heart disease Family/Other Mental health disorder Social History Social History Household Members: Spouse Housing: Apartment Are you a primary healthcare consulting manager to a significant other at home: No Unable to assess alcohol history related to: Unknown Alcohol intake: never Comment: sitter at bedside Patient Tobacco Use Status: Former Tobacco user Tobacco use type: Cigarette Years Smoked: 40 e-Cigarette/Vaping Use: Former Use Second Hand Smoke Exposure: No Advance Directives: Yes Advance Directives on File: Yes Advance Directives Date on File: 10/05/22 Do you have a plan to hurt others: No Plan service: No Current occupational status: unemployed and disabled Cognitive needs: Yes (walker ) Hearing needs: No Vision needs: No Physical Exam Vital Signs: Vital Signs: Last Vital Signs Temp 98.3 F 01/18/25 12:48 Pulse 82 01/18/25 12:48 Resp 16 01/18/25 12:48 BP 202/92 H 01/18/25 12:48 Pulse Ox 95 01/18/25 12:48 O2 Del Method Room Air 01/18/25 12:48 BMI result Body Mass Index 32.0 Const: Other: Gen: ?Chronically ill-appearing HEENT: No facial trauma no head trauma Neck: Supple, CV: S1-S2 Resp: ?No wheezing rales rhonchi no stridor moving air well Abd: ?Bowel sounds are present, no tenderness no rebound no rigidity MSK: FROM, strength 5/5 all extremities Skin: Colostomy in place, no redness no drainage, left upper chest wall area is healed clean and dry Neuro: ?Alert oriented to self, location, we will moving upper and lower extremity symmetrically Medical Decision Making Medical Decision Making MDM Narrative: Patient has history of colon cancer with metastases to the long bones as well as brain, here with hospice nurse presenting with failure to thrive at home unsafe environment found slumped over in the wheelchair no reports of trauma, she is DNR/DNI here for respite admission and then outpatient placement. Differential Diagnosis Differential Diagnoses: The differential diagnosis associated with the presentation includes (See above) Admission/Observation Consideration of admission/observation: Escalation of care including admission/observation considered 2022 Emergency Medicine Coding Guide from [employer] on 01/18/2025 All calculations should be rechecked by clinician prior to use RESULT SUMMARY: 5 Estimated Level of Service Problems: High (5) Risk: High (5) Data: Extensive (5) NARRATIVE MDM: This patient's problem complexity is High as patient: with chronic illness(es) with severe exacerbation/progression/side effects. This patient's risk is High due to: overall presentation requiring evaluation for a potentially High-risk process. This patient's data complexity is Extensive due to: -external notes reviewed -independent historian used to support history -independent interpretation of imaging or EKG -discussion of management/testing with external professional INPUTS: Number and Complexity ?> 1 = 5: chronic illness w/severe exacerbation (a) Risk level ?> 4 = High Tests ordered ?> 1 = 1 Tests results reviewed (excluding labs) ?> 1 = 1 Prior external notes reviewed ?> 1 = 1 Assessment requiring and independent historian ?> 1 = Yes Independent interpretation of tests ?> 1 = Yes Discussed management/test interpretation w/external professional ?> 1 = Yes Discharge Plan Discharge Clinical Impression: Hospice care patient, Lethargic, Chronic pain Patient Disposition: Admitted As Inpatient Print Language: Comoran
--- NOTE | 2025-01-18 13:59 | PM.IMHP ---
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 She seems fairly comfortable at the present. Review of Systems Review of Systems: Has chronic pain but presently controlled. Review of Systems: Yes all other syst ems are reviewed a nd are negative Constitutional: Constitutional: De nies chills and De nies fever(s) Cardiovascular: Cardiovascular: De nies chest pain an d Denies palpitati ons Respiratory: Respiratory: Denie s cough Gastrointestinal: Gastrointestinal: Denies nausea and Denies vomiting Endocrine: Endocrine: Denies palpitations Yes all other systems are reviewed and are negative [facility] Medical History Metastatic cancer Acute on chronic diastolic CHF (congestive heart failure) CHF exacerbation Respiratory failure with hypoxia and hypercapnia Chronic confusion Depression Smoker Chronic back pain Colostomy in place (~2020) Personal history of nicotine dependence Polysubstance (including opioids) dependence, binge pattern Atrial fibrillation with rapid ventricular response Congestive heart failure Restrictive lung disease COPD (chronic obstructive pulmonary disease) No natural teeth COVID-19 vaccine series completed History of COVID-19 (~04/2020) Oxygen dependent Pericardial effusion Other and unspecified hyperlipidemia Essential hypertension Peripheral vascular disease Preoperative cardiovascular examination Bilateral pneumonia Adenocarcinoma of sigmoid colon (~2020) Hypernatremia GI bleed UTI (urinary tract infection) Pleural effusion, left Colon cancer (~2020) IVY (obstructive sleep apnea) Cancer of lower lobe of left lung (~2020) GERD (gastroesophageal reflux disease) Acute and chronic respiratory failure Lung cancer Obesity Hypoventilation associated with obesity Obesity hypoventilation syndrome Respiratory failure with hypoxia and hypercapnia Rotator cuff strain Hypoxia Pneumonia Restless legs syndrome (RLS) Sleep disorder Bipolar disorder (~2009) Back pain with history of spinal surgery Renal failure Fibromyalgia Depression High cholesterol PTSD (post-traumatic stress disorder) CAD (coronary artery disease) HTN (hypertension) Family History Maternal Aunt Breast cancer Stroke COPD (chronic obstructive pulmonary disease) Maternal Aunt Breast cancer COPD (chronic obstructive pulmonary disease) Mother Uterine cancer COPD (chronic obstructive pulmonary disease) HTN (hypertension) Heart disease Mental health disorder Maternal Uncle Stroke Paternal Grandmother Heart attack Parkinsons disease Sister Diabetes IBS (irritable bowel syndrome) Son HTN (hypertension) Substance use disorder Daughter HTN (hypertension) Father HTN (hypertension) Parkinsons disease Brother Heart disease Family/Other Mental health disorder Surgical History History of partial colectomy (~12/2020) History of cardiac cath (~2010) History of hysterectomy (~1990) History of cholecystectomy History of appendectomy (~1982) History of colonoscopy (~08/2020) History of lobectomy of lung (~08/2020) History of esophagogastroduodenoscopy (EGD) History of bunionectomy (~1977) History of back surgery Social History Household Members: Spouse Housing: Apartment Are you a primary home care and home health aides teacher to a significant other at home: No Do you presently have visiting nurse or other home services: Yes Unable to assess alcohol history related to: Unknown Alcohol intake: never Comment: sitter at bedside Patient Tobacco Use Status: Former Tobacco user Tobacco use type: Cigarette Years Smoked: 40 Smoked in Last 30 Days: No e-Cigarette/Vaping Use: Former Use Second Hand Smoke Exposure: No Use of substances other than those prescribed or required for medical reasons: No Currently Displaying Signs/Symptoms of Drug Intoxication Withdrawal: No Have you been hit, kicked, punched, or otherwise hurt by someone within the past year? If so, by whom?: No Do you feel safe in your current relationship?: Yes Is there a partner from a previous relationship who is making you feel unsafe now?: No Are you made to feel afraid or neglected: No Advance Directives: Yes Advance Directives on File: Yes Advance Directives Date on File: 10/05/22 Do you have a plan to hurt others: No Plan Recently lost weight without trying: No Nutrition Risks: No Nutritional Risk Patient : No : No service: No Current occupational status: unemployed and disabled Cognitive needs: Yes (walker ) Hearing needs: No Vision needs: No Meds Allergies Allergy/AdvReac Type Severity Reaction Status Date / Time Penicillins Allergy Mild Rash Verified 01/18/25 12:51 venlafaxine (From Effexor) Allergy Mild Rash Verified 01/18/25 12:51 cyclobenzaprine Allergy Unknown Unknown Verified 01/18/25 12:51 (Cyclobenzaprine) topiramate (From Topamax) Allergy Unknown Unknown Verified 01/18/25 12:51 levofloxacin (From Levaquin) AdvReac Severe Rash Verified 01/18/25 12:51 Sulfa (Sulfonamide AdvReac Severe Diarrhea Verified 01/18/25 12:51 Antibiotics) fentanyl (FENTANYL) AdvReac Intermediate Hallucinati Verified 01/18/25 12:51 ons tramadol AdvReac Intermediate Hallucinati Verified 01/18/25 12:51 ons Home Medications ?Medication ?Instructions ?Recorded ?Confirmed ?Last Taken ?Type blood pressure monitor #1 ea 10/22/20 08/12/24 11/28/20 History blood pressure test kit-large #1 ea 10/22/20 08/12/24 11/28/20 History fluticasone furoate 100 1 inh inhalation DAILY 04/29/24 01/18/25 12/05/24 History mcg-vilanterol 25 mcg/dose inhalation powder (Breo Ellipta) acetaminophen 500 mg tablet 500 mg PO Q12H PRN Pain 09/06/24 01/18/25 12/05/24 History loperamide 2 mg capsule 4 mg PO QIDACHS PRN Loose Stool 09/10/24 01/18/25 12/05/24 History dexamethasone 4 mg tablet 4 mg PO BID 11/17/24 01/18/25 12/05/24 History diltiazem HCl 120 mg 120 mg PO DAILY 11/17/24 01/18/25 12/05/24 History capsule,extended release 24 hr, controlled (DILT-XR) diphenoxylate-atropine 2.5 2 tab PO TID PRN Diarrhea 11/17/24 01/18/25 12/05/24 History mg-0.025 mg tablet docusate sodium 100 mg capsule 100 mg PO DAILY PRN constipation 11/17/24 01/18/25 12/05/24 History oxybutynin chloride 10 mg 10 mg PO DAILY 11/17/24 01/18/25 12/05/24 History tablet,extended release 24 hr acetaminophen 650 mg rectal 650 mg AR Q4H PRN fever 12/05/24 01/18/25 Unknown History suppository gabapentin 300 mg capsule 300 mg PO BID 01/18/25 01/18/25 Unknown History morphine concentrate 100 mg/5 mL 20 mg PO Q3H PRN pain/comfort 01/18/25 01/18/25 Unknown History (20 mg/mL) oral solution simethicone 80 mg chewable tablet 80 mg PO TIDWM 01/18/25 01/18/25 Unknown History Physical Exam Vital Signs and Narrative: Vital Signs: Last Vital Signs Temp 98.3 F 01/18/25 12:48 Pulse 82 01/18/25 12:48 Resp 16 01/18/25 12:48 BP 202/92 H 01/18/25 12:48 Pulse Ox 95 01/18/25 12:48 O2 Del Method Room Air 01/18/25 12:48 BMI result Body Mass Index 32.0 Const: Other: General: AO X 3, no acute distress Resp: CTA bilateral CVS: S1,S2,RRR GI: +BS, NT, no distention Skin: No rash Neuro: motor grossly intact Psych: appropriate affect Results Labs 01/18/25 14:10 01/18/25 14:10 Assessment and Plan (1) Hospice care patient: Status: Acute Plan This is 59-year-old female with a history of colon cancer status post colostomy, lung cancer on hospice who presents today for respite. Chronic cancer pain syndorome in the setting of 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 Pain seems fairly well controlled Resume home medication per med rec and if needed add IV morphine ng afib unspecified Continue metoprolol, diltiazem, Eliquis Chronic respiratory failure/COPD No acute infection Continue 2 L supplemental oxygen 24/ Continue baseline inhalers Mood Continue duloxetine Disposition-ultimately to [facility] Quality Stroke Does the patient have a stroke diagnosis?: No VTE Prior VTE?: No VTE Risk Level:: Medical - moderate - high VTE Device Contraindication: Treatment Not Indicated VTE Drug Contraindication: N/A - Med Ordered
[2025-01-18 14:15] LABS: MANUAL DIFF FLAG NO
[2025-01-18 14:18] LABS: Hematocrit 38.0 % (37.0-47.0); Hemoglobin 12.8 g/dl (12.0-16.0); Imm Gran Abs Auto 0.87 X10*3/uL (0.00-0.03); Imm Gran Pct Auto 4.9 % (0.0-0.4); Lymphocytes Absolute Auto 1.6 X10*3/uL (1.2-4.9); Mean Corpuscular HGB Conc 33.7 g/dl (31.0-35.0); Mean Corpuscular Hemoglobin 31.5 pg (27.0-33.0); Mean Corpuscular Volume 93.6 fL (80.0-98.0); NRBC Abs Auto 0.000 X10*3/uL (0.0-0.012); NRBC Pct Auto 0.0 /100WBC (0.0-0.2); Platelet Count 269 X10*3/uL (160-400); Red Blood Count 4.06 X10*6/uL (4.20-5.50); White Blood Count 17.6 X10*3/uL (4.8-10.8)
[2025-01-18 14:30] LABS: Anion Gap 18 (12-20); Blood Urea Nitrogen 19 mg/dL (9-16); Calcium 8.7 mg/dL (8.4-10.2); Carbon Dioxide 27 mmol/L (22-29); Chloride 100 mmol/L (96-108); Creatinine Clr Calc Pharmacy 115.2; Estimated Glomerular Filt Rate > 60; Potassium 4.2 mmol/L (3.3-5.1); Sodium 141 mmol/L (135-145)
[2025-01-18 14:33] VITALS: BP 167/86; PULSE 68; RESP 16; TEMP 36.7; O2SAT 91
[2025-01-18 15:04] VITALS: BP 167/86; PULSE 68; RESP 16; TEMP 36.7; O2SAT 91
--- NOTE | 2025-01-18 15:06 | PC.NURSE ---
Hospice patient coming from home having increased weakness and frequently falling. Hospice nurse Pamela in with patient. Patient will be admitted for respite care until patient can be admitted to [facility] in [place] on Monday. Patient has colostomy, stoma red and beefy. Fentanyl patch located on left shoulder dated 01/15. Patient has infected port area located on left upper chest covered by DCD no active drainage. Patient uncomfortable in bed, repositioned up right in bed. Hospice left at this time leaving their phone number [phone] Called overflow and gave report to Avis LESLIE
[2025-01-18 16:00] VITALS: BP 158/87; PULSE 64; RESP 20; TEMP 36.7; O2SAT 95
--- NOTE | 2025-01-18 16:32 | PHA.MEDREC ---
Pharmacy Consult ? Medication Reconciliation Pharmacy has completed the medication reconciliation.Med rec complete, spoke to patients and compared with pharmacy claims history
[2025-01-18 19:31] VITALS: BP 136/86; PULSE 55; RESP 16; TEMP 36.7; O2SAT 95
[2025-01-18] MEDS: 0.9 % Sodium Chloride Flush 3 ML SYRINGE IVFLUSH (21:29)
--- NOTE | 2025-01-18 22:29 | PC.NURSE ---
Pt had difficulty urinating and reporting severe pain, bladder scanner showed 546 mL. MD Brunner notified. New order for one time straight cath. Output: 800 mL of yellow urine. Pt reports relief.
[2025-01-18 22:54] LABS: Appearance Urine Clear; Glucose Urine UA Negative (Negative); PH 6.0 (5.0-9.0); Specific Gravity - Urine 1.015 (1.005-1.025); UMIC TRIGGER UACC YES
[2025-01-19] VITALS (7 sets, daily range): BP systolic 134–180; BP diastolic 76–100; PULSE 74–107; RESP 14–18; TEMP 36.1–36.8; O2SAT 93–98
--- NOTE | 2025-01-19 04:22 | PC.NURSE ---
Pt verbalized relief after straight cath, but later during the shift kept endorsing severe 10/10 pain despite prn morphine administration. MD Brunner notified. Morphine was changed to 1 mg dilaudid prn. Pt kept endorsing 10/10 pain with 1 mg dilaudid, kept moving from bed to chair seeking relief but could not get comfortable, stating I give up. I can't do this anymore. MD Brunner notified, dilaudid increased to 1.5 mg prn, home meds ordered, in addition to scheduled IV tylenol & toradol. Pt is currently asleep and resting comfortably.
[2025-01-19] MEDS: 0.9 % Sodium Chloride Flush 3 ML SYRINGE IVFLUSH ×3 (07:40→20:45)
[2025-01-19] MEDS: Tiotropium Bromide 2.5 mcg 1 PUFF/2.5 MCG MIST.INHAL 2 PUFF INHALE (08:14)
[2025-01-19] MEDS: Fluticasone/Vilanterol 100/25 BLST.W.DEV 1 PUFF INHALE (08:14)
[2025-01-19] MEDS: fentaNYL 75 MCG PATCH.TD72 TRANSDERMA (09:29)
--- NOTE | 2025-01-19 11:25 | HO.PM.IMPN ---
Subjective Subjective Date of Service: 01/19/25 Interval History: Sleepy most of the time, easily aroused, states her pain is controlled Physical Exam Vital Signs: Vital Signs: Last Vital Signs Temp 97 F 01/19/25 06:56 Pulse 82 01/19/25 08:52 Resp 14 01/19/25 08:17 BP 134/87 01/19/25 08:52 Pulse Ox 98 01/19/25 06:56 O2 Del Method Nasal Cannula 01/19/25 06:56 O2 Flow Rate 2 01/19/25 06:56 BMI result Body Mass Index 32.0 Const: Other: General: AO X 3, no acute distress Resp: CTA bilateral CVS: S1,S2,RRR GI: +BS, NT, no distention Skin: No rash Neuro: motor grossly intact Psych: appropriate affect Objective Data Active Medications Apixaban (Apixaban 2.5 Mg Tablet) 2.5 mg PO BID [facility] Last Admin: 01/19/25 10:48 Dose: Not Given Documented By: RODRIGUE Non-Admin Reason: Patient Refused Calcium Carbonate (Calcium Carbonate 750 Mg Tab.Chew) 750 mg PO Q4H PRN PRN Reason: Heartburn Clonazepam (Clonazepam 1 Mg Tablet) 1 mg PO TID PRN PRN Reason: Anxiety Dexamethasone (Dexamethasone 4 Mg Tablet) 4 mg PO BID [facility] Last Admin: 01/19/25 10:48 Dose: Not Given Documented By: RODRIGUE Non-Admin Reason: Patient Refused Diltiazem HCl (Diltiazem Hcl Cd 120 Mg Cap.Er.Deg) 120 mg PO DAILY [facility]; Protocol Last Admin: 01/19/25 10:48 Dose: Not Given Documented By: RODRIGUE Non-Admin Reason: Patient Refused Diphenoxylate HCl/Atropine (Diphenoxylate/Atrop 2.5/0.025 Tablet) 2 tab PO TID PRN PRN Reason: Diarrhea Docusate Sodium (Docusate Sodium 100 Mg Capsule) 100 mg PO BID [facility] Last Admin: 01/19/25 10:49 Dose: Not Given Documented By: RODRIGUE Non-Admin Reason: Patient Refused Docusate Sodium (Docusate Sodium 100 Mg Capsule) 100 mg PO DAILY PRN PRN Reason: Constipation Duloxetine HCl (Duloxetine Hcl 30 Mg Capsule.Dr) 90 mg PO BEDTIME [facility] Fentanyl (Fentanyl 75 Mcg Patch.Td72) 75 mcg TRANSDERMA Q72H [facility] Last Admin: 01/19/25 09:29 Dose: 75 mcg Documented By: RODRIGUE Fluticasone/Vilanterol (Fluticasone/Vilanterol 100/ Blst.W.Dev) 1 puff INHALE DAILY [facility] Last Admin: 01/19/25 08:14 Dose: 1 puff Documented By: GABY Gabapentin (Gabapentin 300 Mg Capsule) 300 mg PO BID [facility] Last Admin: 01/19/25 10:49 Dose: Not Given Documented By: RODRIGUE Non-Admin Reason: Patient Refused Hydromorphone HCl (Hydromorphone Hcl 1 Mg/Ml Syringe) 1 mg IVPUSH Q4H PRN; Protocol PRN Reason: Pain, Severe (Pain Scale 7-10) Last Admin: 01/19/25 02:01 Dose: 1 mg Documented By: CYNTHIA Hydromorphone HCl (Hydromorphone Hcl 2 Mg/Ml Vial) 1.5 mg IVPUSH Q2H PRN; Protocol PRN Reason: Pain, Severe (Pain Scale 7-10) Acetaminophen (Ofirmev) 1,000 mg in 100 mls @ 400 mls/hr IV Q6H [facility] Last Infusion: 01/19/25 10:44 Dose: Infused Documented By: RODRIGUE Ketorolac Tromethamine (Ketorolac Tromethamine 30 Mg/Ml Vial) 30 mg IVPUSH Q6H [facility] Stop: 01/19/25 15:31 Last Admin: 01/19/25 03:36 Dose: 30 mg Documented By: CYNTHIA Loperamide HCl (Loperamide Hcl 2 Mg Capsule) 4 mg PO QIDACHS PRN PRN Reason: Loose Stool Magnesium Hydroxide (Milk Of Magnesia 30 Ml Oral.Susp) 30 ml PO DAILY PRN PRN Reason: Constipation Melatonin (Melatonin 3 Mg Tablet) 6 mg PO BEDTIME PRN PRN Reason: Insomnia Omeprazole (Omeprazole 20 Mg Capsule.) 20 mg PO BID@0630,1630 [facility] Last Admin: 01/19/25 06:20 Dose: 20 mg Documented By: CYNTHIA Ondansetron HCl (Ondansetron Hcl 4 Mg/2 Ml Vial) 4 mg IVPUSH Q8H PRN PRN Reason: Nausea and Vomiting Last Admin: 01/19/25 09:25 Dose: 4 mg Documented By: RODRIGUE Oxybutynin Chloride (Oxybutynin Chloride Er 5 Mg Tab.Er.24) 10 mg PO DAILY [facility] Last Admin: 01/19/25 10:49 Dose: Not Given Documented By: RODRIGUE Non-Admin Reason: Patient Refused Polyethylene Glycol (Polyethylene Glycol 3350 17 Gm Powd.Pack) 17 gm PO DAILY PRN PRN Reason: Constipation Simethicone (Simethicone 80 Mg Tab.Chew) 80 mg PO TIDWM [facility] Last Admin: 01/19/25 11:23 Dose: Not Given Documented By: RODRIGUE Non-Admin Reason: Patient Refused Sodium Chloride (0.9 % Sodium Chloride Flush 3 Ml Syringe) 3 ml IVFLUSH QSHIFT [facility] Last Admin: 01/19/25 07:40 Dose: 3 ml Documented By: RODRIGUE Tiotropium [place] (Tiotropium [place] 2.5 Mcg 1 Puff/2.5 Mcg Mist.Inhal) 2 puff INHALE DAILY [facility] Last Admin: 01/19/25 08:14 Dose: 2 puff Documented By: GABY Labs 01/18/25 14:10 01/18/25 14:10 Labs: Laboratory Results - last 24 hr 01/18/25 01/18/25 14:10 22:24 MCV 93.6 MCH 31.5 MCHC 33.7 RDW 17.3 H Plt Count 269 MPV 10.2 Immature Gran % (Auto) 4.9 H Neut % (Auto) 81.1 H Lymph % (Auto) 9.0 L [place] % (Auto) 4.8 Eos % (Auto) 0.0 Baso % (Auto) 0.2 Lymph # (Auto) 1.6 [place] # (Auto) 0.9 Eos # (Auto) 0.0 Baso # (Auto) 0.0 Abs Immat Gran (auto) 0.87 H Absolute Neuts (auto) 14.3 H Absolute Nucleated RBC 0.000 Nucleated RBC % (auto) 0.0 Anion Gap 18 Estim Creat Clear Calc 115.2 Estimated GFR > 60 Random Glucose 169 H Calcium 8.7 Urine Color Yellow Urine Appearance Clear Urine pH 6.0 Ur Specific [place] 1.015 Urine Protein 100 (2+) H Urine Glucose (UA) Negative Urine Ketones Negative Urine Blood Negative Urine Nitrite Negative Ur Leukocyte Esterase Negative Urine RBC 3-5 H Urine WBC 0-5 Ur Squamous Epith Cells 0-2 Urine Bacteria None Seen Hyaline Casts 0-2 Assessment and Plan (1) Hospice care patient: Status: Acute (2) Cancer associated pain: Status: Acute Plan This is 59-year-old female with a history of colon cancer status post colostomy, lung cancer on hospice who presents today for respite. Chronic cancer pain syndorome d/t 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 Pain seems fairly well controlled continue present home pain medication (Fentanyl, toradol) per med rec and PRN IV morphine chronic afib Continue metoprolol, diltiazem, Eliquis Chronic respiratory failure/COPD No acute infection Continue 2 L supplemental oxygen 24/7 Continue baseline inhalers Mood Continue duloxetine Disposition-ultimately to [facility] Stroke Does the patient have a stroke diagnosis?: No VTE Prior VTE?: No VTE Risk Level:: Medical - moderate - high VTE Device Contraindication: Treatment Not Indicated VTE Drug Contraindication: N/A - Med Ordered
--- NOTE | 2025-01-19 16:34 | MHC.CM.PN ---
PT SENT IN BY [facility] FROM HOME WHERE WAS ASSISTING PT NOW AGREEABLE TO SNF PLACEMENT WITH HOSPICE SERVICES SHE UNDERSTANDS A BROAD REFERRAL WILL BE PLACED HCP AND MOLST ON FILE PCP: KIA HIGGINS DCP: SNF PLACEMENT BLS TRANSPORT
[2025-01-19] MEDS: dilTIAZem HCL CD 120 MG CAP.ER.DEG PO (20:32)
[2025-01-20] VITALS (7 sets, daily range): BP systolic 122–177; BP diastolic 60–98; PULSE 76–108; RESP 16–20; TEMP 36–36.6; O2SAT 94–97
[2025-01-20] MEDS: dilTIAZem HCL CD 120 MG CAP.ER.DEG PO (07:42)
[2025-01-20] MEDS: oxyBUTYnin chloride ER 5 MG TAB.ER.24 10 MG PO (07:42)
[2025-01-20] MEDS: Fluticasone/Vilanterol 100/25 BLST.W.DEV 1 PUFF INHALE (08:04)
[2025-01-20] MEDS: Tiotropium Bromide 2.5 mcg 1 PUFF/2.5 MCG MIST.INHAL 2 PUFF INHALE (08:04)
--- NOTE | 2025-01-20 10:32 | MHC.CLN ---
NUTRITION PATIENT IS HOSPICE LEVEL OF CARE. DIET=REGULAR. RD AVAILABLE NEEDED.
--- NOTE | 2025-01-20 11:58 | HO.PM.IMPN ---
Subjective Subjective Date of Service: 01/20/25 Interval History: has some pain, but not uncomfortable Physical Exam Vital Signs: Vital Signs: Last Vital Signs Temp 98 F 01/20/25 06:57 Pulse 76 01/20/25 08:05 Resp 16 01/20/25 08:05 BP 132/64 01/20/25 06:57 Pulse Ox 97 01/20/25 06:57 O2 Del Method Nasal Cannula 01/20/25 06:57 O2 Flow Rate 2 01/20/25 02:57 BMI result Body Mass Index 32.0 Const: Other: General: AO X 3, no acute distress Resp: CTA bilateral CVS: S1,S2,RRR GI: +BS, NT, no distention Skin: No rash Neuro: motor grossly intact Psych: appropriate affect Objective Data Active Medications Apixaban (Apixaban 2.5 Mg Tablet) 2.5 mg PO BID [facility] Last Admin: 01/20/25 07:43 Dose: 2.5 mg Documented By: AIDAN Calcium Carbonate (Calcium Carbonate 750 Mg Tab.Chew) 750 mg PO Q4H PRN PRN Reason: Heartburn Clonazepam (Clonazepam 1 Mg Tablet) 1 mg PO TID PRN PRN Reason: Anxiety Last Admin: 01/19/25 21:48 Dose: 1 mg Documented By: CYNTHIA Dexamethasone (Dexamethasone 4 Mg Tablet) 4 mg PO BID [facility] Last Admin: 01/20/25 07:52 Dose: 4 mg Documented By: AIDAN Diltiazem HCl (Diltiazem Hcl Cd 120 Mg Cap.Er.Deg) 120 mg PO DAILY [facility]; Protocol Last Admin: 01/20/25 07:42 Dose: 120 mg Documented By: AIDAN Diphenoxylate HCl/Atropine (Diphenoxylate/Atrop 2.5/0.025 Tablet) 2 tab PO TID PRN PRN Reason: Diarrhea Docusate Sodium (Docusate Sodium 100 Mg Capsule) 100 mg PO BID [facility] Last Admin: 01/20/25 07:43 Dose: 100 mg Documented By: AIDAN Docusate Sodium (Docusate Sodium 100 Mg Capsule) 100 mg PO DAILY PRN PRN Reason: Constipation Duloxetine HCl (Duloxetine Hcl 30 Mg Capsule.Dr) 90 mg PO BEDTIME [facility] Last Admin: 01/19/25 20:33 Dose: 90 mg Documented By: CYNTHIA Fentanyl (Fentanyl 75 Mcg Patch.Td72) 75 mcg TRANSDERMA Q72H [facility] Last Admin: 01/19/25 09:29 Dose: 75 mcg Documented By: RODRIGUE Fluticasone/Vilanterol (Fluticasone/Vilanterol 100/ Blst.W.Dev) 1 puff INHALE DAILY [facility] Last Admin: 01/20/25 08:04 Dose: 1 puff Documented By: JOSE Gabapentin (Gabapentin 300 Mg Capsule) 300 mg PO BID [facility] Last Admin: 01/20/25 07:42 Dose: 300 mg Documented By: AIDAN Hydromorphone HCl (Hydromorphone Hcl 1 Mg/Ml Syringe) 1 mg IVPUSH Q4H PRN; Protocol PRN Reason: Pain, Severe (Pain Scale 7-10) Last Admin: 01/20/25 11:30 Dose: 1 mg Documented By: AIDAN Hydromorphone HCl (Hydromorphone Hcl 2 Mg/Ml Vial) 1.5 mg IVPUSH Q2H PRN; Protocol PRN Reason: Pain, Severe (Pain Scale 7-10) Last Admin: 01/19/25 23:42 Dose: 1.5 mg Documented By: CYNTHIA Hydromorphone HCl (Hydromorphone Hcl 2 Mg Tablet) 4 mg PO Q4H PRN PRN Reason: Pain, Severe (Pain Scale 7-10) Acetaminophen (Ofirmev) 1,000 mg in 100 mls @ 400 mls/hr IV Q6H [facility] Last Infusion: 01/20/25 08:07 Dose: Infused Documented By: AIDAN Loperamide HCl (Loperamide Hcl 2 Mg Capsule) 4 mg PO QIDACHS PRN PRN Reason: Loose Stool Magnesium Hydroxide (Milk Of Magnesia 30 Ml Oral.Susp) 30 ml PO DAILY PRN PRN Reason: Constipation Melatonin (Melatonin 3 Mg Tablet) 6 mg PO BEDTIME PRN PRN Reason: Insomnia Omeprazole (Omeprazole 20 Mg Capsule.Dr) 20 mg PO BID@0630,1630 [facility] Last Admin: 01/20/25 06:10 Dose: 20 mg Documented By: CYNTHIA Ondansetron HCl (Ondansetron Hcl 4 Mg/2 Ml Vial) 4 mg IVPUSH Q8H PRN PRN Reason: Nausea and Vomiting Last Admin: 01/19/25 09:25 Dose: 4 mg Documented By: RODRIGUE Oxybutynin Chloride (Oxybutynin Chloride Er 5 Mg Tab.Er.24) 10 mg PO DAILY [facility] Last Admin: 01/20/25 07:42 Dose: 10 mg Documented By: AIDAN Polyethylene Glycol (Polyethylene Glycol 3350 17 Gm Powd.Pack) 17 gm PO DAILY PRN PRN Reason: Constipation Simethicone (Simethicone 80 Mg Tab.Chew) 80 mg PO TIDWM [facility] Last Admin: 01/20/25 11:33 Dose: Not Given Documented By: AIDAN Non-Admin Reason: Patient Refused Sodium Chloride (0.9 % Sodium Chloride Flush 3 Ml Syringe) 3 ml IVFLUSH QSHIFT [facility] Last Admin: 01/20/25 08:07 Dose: Not Given Documented By: AIDAN Non-Admin Reason: IV Running Tiotropium [place] (Tiotropium [place] 2.5 Mcg 1 Puff/2.5 Mcg Mist.Inhal) 2 puff INHALE DAILY [facility] Last Admin: 01/20/25 08:04 Dose: 2 puff Documented By: BLASCL Labs 01/18/25 14:10 01/18/25 14:10 Labs: Laboratory Results - last 24 hr 01/18/25 01/18/25 14:10 22:24 MCV 93.6 MCH 31.5 MCHC 33.7 RDW 17.3 H Plt Count 269 MPV 10.2 Immature Gran % (Auto) 4.9 H Neut % (Auto) 81.1 H Lymph % (Auto) 9.0 L [place] % (Auto) 4.8 Eos % (Auto) 0.0 Baso % (Auto) 0.2 Lymph # (Auto) 1.6 [place] # (Auto) 0.9 Eos # (Auto) 0.0 Baso # (Auto) 0.0 Abs Immat Gran (auto) 0.87 H Absolute Neuts (auto) 14.3 H Absolute Nucleated RBC 0.000 Nucleated RBC % (auto) 0.0 Anion Gap 18 Estim Creat Clear Calc 115.2 Estimated GFR > 60 Random Glucose 169 H Calcium 8.7 Urine Color Yellow Urine Appearance Clear Urine pH 6.0 Ur Specific [place] 1.015 Urine Protein 100 (2+) H Urine Glucose (UA) Negative Urine Ketones Negative Urine Blood Negative Urine Nitrite Negative Ur Leukocyte Esterase Negative Urine RBC 3-5 H Urine WBC 0-5 Ur Squamous Epith Cells 0-2 Urine Bacteria None Seen Hyaline Casts 0-2 Assessment and Plan (1) Hospice care patient: Status: Acute (2) Cancer associated pain: Status: Acute Plan This is 59-year-old female with a history of colon cancer status post colostomy, lung cancer on hospice who presents today for respite. Chronic cancer pain syndorome d/t 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 Pain seems fairly well controlled transition to oral dilaudid, tyleneol chronic afib Continue metoprolol, diltiazem, Eliquis Chronic respiratory failure/COPD No acute infection Continue 2 L supplemental oxygen 24/ Continue baseline inhalers Mood Continue duloxetine Disposition-ultimately to [facility] Stroke Does the patient have a stroke diagnosis?: No VTE Prior VTE?: No VTE Risk Level:: Medical - moderate - high VTE Device Contraindication: Treatment Not Indicated VTE Drug Contraindication: N/A - Med Ordered
--- NOTE | 2025-01-20 13:29 | MHC.CM.PN ---
[facility] offered a Hospice bed today. Patients spouse accepted the bed. Patient was planned for discharge today. [facility] was notified. [facility] Nurse and CUSTOMER SERVICE SECURITY OFFICER came in to assess the patient for transfer to SNF for hospice. No discharge today. She will be made GIP hospice. Pain medication will transition from IV to PO today. Patients spouse and [facility] have been notified that the discharge is on hold. DP DC to [facility] on Hospice when pain management is optimized. DP [facility] via BLS. [facility] with resume services at the SNF.
--- NOTE | 2025-01-20 14:59 | PC.NURSE ---
Pt resting in chair, this RN asked pt if she needed any pain medications or wanted to get back to bed, pt denies any pain at this time and is requesting to stay in recliner chair. All safety measures in place.
[2025-01-20] MEDS: 0.9 % Sodium Chloride Flush 3 ML SYRINGE IVFLUSH ×2 (16:29→20:38)
--- NOTE | 2025-01-20 17:59 | PC.NURSE ---
Addendum entered by Elsa Martinez RN 01/20/25 18:27: 18:27 Pt noted to be be sleeping in chair, rise and fall of chest noted, RR 20, no S&S of distress. All safety measures in place. Original Note: 16:23 Pt endorsing pain, 2mg PO Dilaudid given per AUG. 17:41 Pt endorsing 10/10 pain, MD Kidd made aware. Per ok to give PRN 4mg PO, pending effectiveness.
[2025-01-21 03:46] VITALS: BP 143/85; PULSE 120; RESP 20; TEMP 36.9; O2SAT 96
--- NOTE | 2025-01-21 05:35 | PC.NURSE ---
0315 pt endorsing 9/10 pain. pt give 4 mg dilaudid at 0323 at which time pt used commode and moved into bed. Pt was restless and moved back to chair at which point she fell asleep. RR even and unlabored.
[2025-01-21 05:50] VITALS: PULSE 103
--- NOTE | 2025-01-21 07:08 | PC.NURSE ---
0705 Change of shift safety check pt sitting in chair awake and smiling. Pt states pain is tolerable at this time. All safety measures in place.
[2025-01-21 07:19] VITALS: BP 180/90; PULSE 101; RESP 18; TEMP 36.2; O2SAT 95
[2025-01-21] MEDS: Fluticasone/Vilanterol 100/25 BLST.W.DEV 1 PUFF INHALE (07:28)
[2025-01-21] MEDS: Tiotropium Bromide 2.5 mcg 1 PUFF/2.5 MCG MIST.INHAL 2 PUFF INHALE (07:28)
[2025-01-21] MEDS: dilTIAZem HCL CD 120 MG CAP.ER.DEG PO (07:31)
[2025-01-21] MEDS: oxyBUTYnin chloride ER 5 MG TAB.ER.24 10 MG PO (07:32)
[2025-01-21 07:34] VITALS: PULSE 100; RESP 16; O2SAT 96
--- NOTE | 2025-01-21 10:45 | MHC.CM.PN ---
Patient tolerating PO pain meds and cleared to dc to [facility] on hospice. Elder services aware. BLS transport scheduled for 1pm. MD MARIAMA, patient and aware.
--- NOTE | 2025-01-21 12:37 | PM.DS ---
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 She seems fairly comfortable at the present. hospital course: This is 59-year-old female with a history of colon cancer status post colostomy, lung cancer on hospice on hospice at home and admitted on respite for med adjustment to achieve optimal comfort and pain control. She was transition to IV pain med initially while continued on fentanyl patch, once her pain was controlled on IV Dilaudid, she was transitioned to oral Dilaudid and presently on Dilaudid PO 4 mg every 4 hours for pain 7 to 10 and 2 mg every 4 hours for pain 4 to 6 and seems to have good pain control with this regimen and will thus be discharged on this regimen along with usual Fentanyl patch and as needed Tylenol. additionally she is not able to care for herself at home and her is not able to care for her also and therefore will be transitioned to a senior care facility chronic afib Continue metoprolol, diltiazem, Eliquis Chronic respiratory failure/COPD No acute infection Continue 2 L supplemental oxygen 24/7 Continue baseline inhalers Mood Continue duloxetine Disposition : SNF Time Attestation Discharge Coordination Time (in mins): 45 Quality: Safe Use of Opioids Does Pt have an Active Cancer Diagnosis on the Problem List?: Yes Opioid Measure Date for [facility] Report: 12/22/24 Opioid Measure Time for [facility] Report: 12:44 Quality: Stroke Does the patient have a stroke diagnosis?: No Physical Exam Vital Signs: Vital Signs: Last Vital Signs Temp 97.1 F 01/21/25 07:19 Pulse 100 01/21/25 07:34 Resp 16 01/21/25 07:34 BP 180/90 H 01/21/25 07:19 Pulse Ox 95 01/21/25 07:19 O2 Del Method Nasal Cannula 01/21/25 07:19 O2 Flow Rate 1.5 01/21/25 07:19 BMI result Body Mass Index 32.0 Const: Other: General: AO X 3, no acute distress Resp: CTA bilateral CVS: S1,S2,RRR GI: +BS, NT, no distention Skin: No rash Neuro: motor grossly intact Psych: appropriate affect DS: Data Data Completed and Pending Completed studies during hospitalization [Text1]: Procedures Assistance with Respiratory Ventilation, Less than 24 Consecutive Hours, Continuous Positive Airway Pressure (11/18/20) Excision of Left Lower Lung Lobe, Percutaneous Approach, Diagnostic (07/03/20) Discharge Plan Discharge Anticipated Discharge Date/Time: 01/21/25 12:29 Patient Disposition: Xfer SNF Discharge Diagnosis: Cancer associated pain and hospice care patient Referrals: Chelsea Miles MD [Primary Care Provider, Internal Medicine] - 1 Week Discharge Medications: New hydromorphone 2 mg Tablet 2 mg PO Q4H PRN (Reason: Pain, Moderate(Pain Scale 4-6)) Qty: 30 0RF Rx Instructions: Partial Fill upon patient request. hydromorphone 2 mg Tablet 4 mg PO Q4H PRN (Reason: Pain, Severe (Pain Scale 7-10)) Qty: 30 0RF Rx Instructions: Partial Fill upon patient request. Continued omeprazole 20 mg capsule,delayed release(DR/EC) 20 mg PO BID@0630,1630 90 Days Qty: 180 2RF Eliquis 2.5 mg tablet 2.5 mg PO BID 90 Days Qty: 180 1RF Incruse Ellipta 62.5 mcg/actuation blister with device 1 inh inhalation DAILY Qty: 30 11RF acetaminophen 500 mg Tablet 500 mg PO Q12H PRN (Reason: Pain) oxybutynin chloride 10 mg tablet extended release 24hr 10 mg PO DAILY diphenoxylate-atropine 2.5-0.025 mg tablet 2 tab PO TID PRN (Reason: Diarrhea) dexamethasone 4 mg tablet 4 mg PO BID diltiazem HCl [DILT-XR] 120 mg capsule,ext.rel 24h degradable 120 mg PO DAILY docusate sodium 100 mg capsule 100 mg PO DAILY PRN (Reason: constipation) acetaminophen 650 mg suppository 650 mg AR Q4H PRN (Reason: fever) duloxetine 30 mg Capsule,Delayed Release(Dr/Ec) 90 mg PO BEDTIME Qty: 90 0RF fluticasone furoate-vilanterol [Breo Ellipta] 100-25 mcg/dose blister with device 1 inh inhalation DAILY loperamide 2 mg capsule 4 mg PO QIDACHS PRN (Reason: Loose Stool) gabapentin 300 mg Capsule 300 mg PO BID simethicone 80 mg Tablet,Chewable 80 mg PO TIDWM clonazepam 1 mg tablet 1 mg PO TID PRN (Reason: Anxiety) Qty: 21 0RF fentanyl 75 mcg/hr patch 72 hour 2 patch transdermal Q72H Qty: 5 0RF Discontinued oxycodone 10 mg tablet 10 mg PO Q4H PRN (Reason: pain) Qty: 30 0RF Rx Instructions: Partial Fill upon patient request. morphine concentrate 100 mg/5 mL (20 mg/mL) solution 20 mg PO Q3H PRN (Reason: pain/comfort) Rx Instructions: Partial Fill upon patient request. No Action (DME) Ultra-Light Rollator Misc See Rx Instructions .Route Qty: 1 0RF Rx Instructions: As directed (DME) Tub ledge vertical grab bar/ not suction bar. See Rx Instructions .Route .MEDSUPPLY Qty: 1 0RF Rx Instructions: As directed (DME) heavy duty adjustable hand rail See Rx Instructions .Route .MEDSUPPLY Qty: 1 0RF Rx Instructions: As directed (DME) blood pressure test kit-large Kit See Rx Instructions .ROUTE DIRECTED Qty: 1 Rx Instructions: As directed (DME) blood pressure monitor Kit See Rx Instructions .ROUTE .MEDSUPPLY Qty: 1 Rx Instructions: As directed Discharge Orders: Discharge Order (Routine); Ordered 01/21/25 Ordered By: Los Kidd Diet: Advance to usual diet Activity on Discharge: As tolerated Stand Alone Forms: Patient Portal Discharge page Print Language: Maltese Care Plan Goals: Hospice care with gaol of pain control and comfort Health Concerns: pain associated with cancer Plan of Treatment: fentanyl, Dilaudid, Tylenol for pain control under hospice care. Assessment: see above 15
[2025-01-21 12:58] VITALS: BP 118/72; PULSE 89; RESP 16; TEMP 36; O2SAT 95
== END 2025-01-21 13:42 | disposition skilled nursing facility (03) | DRG 951 ==
LOC: HO.ED 13:56 → HO.EDOVER 14:12 → HO.S3 15:18
PROVIDERS: Admitting Provider Nurse Practitioner Acute Care; Emergency Provider Emergency Medicine; PCP Internal Medicine; Visit Provider Internal Medicine
DX: Z51.5 Encounter for palliative care (principal); C18.7 Malignant neoplasm of sigmoid colon; J96.10 Chronic respiratory failure, unspecified whether with hypoxia or hypercapnia; C34.90 Malignant neoplasm of unspecified part of unspecified bronchus or lung; F39 Unspecified mood [affective] disorder; G89.3 Neoplasm related pain (acute) (chronic); J44.9 Chronic obstructive pulmonary disease, unspecified; I48.0 Paroxysmal atrial fibrillation; I10 Essential (primary) hypertension; E78.5 Hyperlipidemia, unspecified; Z79.01 Long term (current) use of anticoagulants; Z79.51 Long term (current) use of inhaled steroids; Z79.899 Other long term (current) drug therapy
CPT/HCPCS: 36415; 80048; 81001; 85025; 94640; 99285; J0131; J1171; J1885; J2270; J2405; J8540

== ENCOUNTER → 2025-01-18 13:50 | Outpatient (BNV) | payer OTHER, MEDICARE, MEDICAID, SELFPAY | PROVIDERS: Admitting Provider Nurse Practitioner Acute Care; Emergency Provider Emergency Medicine; PCP Internal Medicine; Visit Provider Internal Medicine | DX: Z51.5 Encounter for palliative care (principal); G89.3 Neoplasm related pain (acute) (chronic) | CPT/HCPCS: 99223; 99232 ==